=== PATIENT | female | born 2000 | race Caucasian/White ===

== ENCOUNTER 2023-01-14 13:25 | Outpatient (OUT) | payer BC, MEDICAID, SELFPAY ==
[2023-01-14 14:24] LABS: Basophils Percent Auto 0.6 % (0.2-2.0); Eosinophils Absolute Auto 0.2 10^3/uL (0.0-0.7); Eosinophils Percent Auto 3.4 % (0.9-7.0); Hematocrit 34.2 % (36.0-48.0); Hemoglobin 11.7 g/dL (12.0-16.0); Immature Granulocytes Abs Auto 0.01 10^3/uL (0.00-0.03); Immature Granulocytes Pct Auto 0.1 % (0.0-0.5); Lymphocytes Absolute Auto 1.2 10^3/uL (1.2-3.8); Lymphocytes Percent Auto 18.5 % (20.5-60.0); Mean Corpuscular HGB Conc 34.2 g/dL (29.9-35.2); Mean Corpuscular Hemoglobin 30.2 pg (26.7-34.0); Mean Corpuscular Volume 88.4 fL (81.0-99.0); Mean Platelet Volume 10.1 fL (9.5-13.5); Monocytes Absolute Auto 0.7 10^3/uL (0.3-0.8); Monocytes Percent Auto 10.1 % (1.7-12.0); Neutrophils Absolute Auto 4.5 10^3/uL (1.4-6.5); Neutrophils Percent Auto 67.3 % (43.0-75.0); Platelet Count 174 10^3/uL (150-450); Red Blood Count 3.87 10^6/uL (4.20-5.40); Red Cell Distribution Width 12.6 % (11.0-15.0); White Blood Count 6.7 10^3/uL (4.0-11.0)
[2023-01-14 14:34] LABS: Erythrocyte Sedimentation Rate 13 mm/hr (<=20)
[2023-01-14 14:38] LABS: Alanine Aminotransferase 10 U/L (14-59); Albumin Globulin Ratio 1.1; Albumin Level 3.3 g/dL (3.4-5.0); Alkaline Phosphatase 60 U/L (46-116); Anion Gap 8.4; Aspartate Amino Transferase 13 U/L (15-37); BUN Creatinine Ratio 11.1; Bilirubin Total 0.2 mg/dL (0.2-1.0); C Reactive Protein 0.6 mg/dL (<=1.0); Calcium 8.5 mg/dL (8.5-10.1); Carbon Dioxide 27.9 mmol/L (21.0-32.0); Chloride 103 mmol/L (98-107); Estimated GFR (African America >60 (>=60); Estimated GFR (Non-African Ame >60 (>=60); Globulin 3.1 g/dL; Glucose 82 mg/dL (74-106); Potassium 3.3 mmol/L (3.5-5.1); Sodium 136 mmol/L (136-145); Total Protein 6.4 g/dL (6.4-8.2)
[2023-01-14 14:42] LABS: Percent Iron Saturation 8.4 %
[2023-01-15 06:09] LABS: HBsAg Screen Negative (Negative); HCV Antibody Non Reactive (Non Reactive); Hep B Core Ab, Tot Negative (Negative); Hepatitis B Surf Ab Quant <3.1 mIU/mL (Immunity>9.9); Immunoglobulin G, Qn 472 mg/dL (586-1602)
[2023-01-16 10:12] LABS: QuantiFERON-TB Gold Plus Negative (Negative)
== END 2023-01-14 13:26 | disposition home or self-care (01) ==
PROVIDERS: PCP Family Medicine
DX: Z51.81 Encounter for therapeutic drug level monitoring (principal); Z79.620 Long term (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 of immunosuppressive biologic; K50.918 Crohn's disease, unspecified, with other complication
CPT/HCPCS: 36415; 80053; 82306; 82728; 82784; 83540; 83550; 85025; 85652; 86140; 86355; 86356; 86480; 86704; 86706; 86709; 86803; 87340; 87624

== ENCOUNTER 2023-01-16 16:14 | Emergency (ER) | payer OTHER, BC, SELFPAY ==
[2023-01-16 16:19] VITALS: BP 119/80; PULSE 81; RESP 20; TEMP 36.8; O2SAT 100
[2023-01-16 17:34] LABS: HCG Quantitative 12957 mIU/mL
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
== END 2023-01-16 17:41 | disposition home or self-care (01) ==
PROVIDERS: Physician Assistant; Emergency Provider Emergency Medicine; PCP Family Medicine
DX: Z04.1 Encounter for examination and observation following transport accident (principal)
CPT/HCPCS: 36415; 84702; 99283

== ENCOUNTER 2023-02-04 17:37 | Outpatient (OUT) | payer BC, SELFPAY ==
--- NOTE | 2023-02-04 | US_ITS ---
[address] [address] Patient Name: KINGS MARROQUIN MRN: [id number] date: 2000 Sex: F Assigned Patient Location: US Current Patient Location: Accession/Order Number: [id number] Exam Date: 02/04/2023 17:45 Report Date: 02/05/2023 22:10 At the request of: ALFREDO ARIAS Procedure: US OB transvaginal EXAMINATION: US OB transvaginal HISTORY: AMENORRHEA N91.2 COMPARISON: No relevant comparison available. FINDINGS: GESTATIONAL SAC: Present and normal appearing. YOLK SAC: Present and normal appearing. POLE: Present and normal appearing. CARDIAC: Present. UTERUS: Normal size and appearance. OVARIES: Right: Not seen. Left: Normal. CERVIX: 4.9 cm in length and closed. CUL-DE-SAC: Normal. OTHER: None. AGE BY LMP: 8 weeks 2 days JANIS BY LMP: 09/14/2023 AGE BY US CRL: 8 weeks 1 day JANIS BY US CRL: 09/15/2023 US/US OB transvaginal IMPRESSION: 1. Single live intrauterine . Electronically authenticated by: LUIS E CANTU Date: 02/05/2023 22:10
== END 2023-02-04 17:38 | disposition home or self-care (01) ==
LOC: US 17:38
PROVIDERS: PCP Family Medicine; Visit Provider Midwife
DX: Z34.91 Encounter for supervision of normal pregnancy, unspecified, first trimester (principal); Z3A.08 8 weeks gestation of pregnancy
CPT/HCPCS: 76817

== ENCOUNTER 2023-06-09 10:45 | Emergency (ER) | payer BC, MEDICAID, SELFPAY ==
[2023-06-09 10:55] VITALS: BP 132/86; PULSE 113; RESP 18; TEMP 36.9; O2SAT 100; BMI 34.4
[2023-06-09 11:03] VITALS: O2SAT 100
--- NOTE | 2023-06-09 11:06 | ED_ITS ---
HPI - General Adult General Chief complaint: Upper Respiratory Infection Stated complaint: CONGESTION/MIGRAINE Time Seen by Provider: 06/09/23 11:02 Source: patient and family Mode of arrival: walk-in Limitations: no limitations History of Present Illness HPI narrative: Patient is a 22-year-old female who is presenting to the ER today with chief complaint of a headache the past couple days, weakness, fatigue, feeling dehydrated. Patient is also had several months of chronic sinus congestion. Patient has a underlying history of Crohn's that also affects her eyes. Patient is not currently taking her eye medications secondary to that she normally takes daily secondary to Crohn's that secondarily affects her eyes. Patient has no acute vision or hearing changes. Patient has no chest pain or shortness of breath. Patient has no abdominal pain. She has nausea, patient is approximate 26 weeks today. Patient has no recent fall, no head injury. Patient is here with her mother as well. Patient's QUALITY MANAGEMENT NURSE is Shonna Duong. Patient saw her PCP as well Yung Smith for sinus congestion. Patient has no pelvic pain, no vaginal bleeding, no other complications. All systems are negative except as noted/marked. All systems reviewed and otherwise negative. Nurses note and vital signs reviewed and patient is not hypoxic. General: The patient appears well and in no apparent distress. Patient is resting comfortably on cart. Patient is not toxic, lethargic, or listless Skin: Warm, dry, no pallor noted. There is no rash noted. No petechiae, purpura. Head: Normocephalic, atraumatic; mild tenderness to palpation to bilateral frontal maxillary sinus. No cervical midline or paracervical tenderness palpation. Full range of motion of cervical spine no difficulty. Eye: Normal conjunctiva, no drainage, EOMI. PERRL Ears, Nose, Mouth, and Throat: oral mucosa is moist. Nares patent. Mouth without vesicles. Cardiovascular: Regular Rate and Rhythm, no murmur, gallop, rub Respiratory: Patient is in no distress, no accessory muscle use, lungs are clear to auscultation, no wheezing, rales or rhonchi Back: non-tender, no CVA tenderness bilaterally to percussion. No CT LS midline pain GI: Approximately 26 weeks gravid, appropriate for age. No tenderness to palpation, no masses appreciated. No rebound, guarding, or rigidity noted. No distention Musculoskeletal: Patient has full range of motion of all of the extremities, no motor, sensory, or focal neurological deficits Neurological: A&O x4, normal speech Psychiatric: Cooperative Related Data Home Medications Medication Instructions Recorded Confirmed ustekinumab 90 mg/mL subcutaneous 90 mg subcut .q8week 01/16/23 01/16/23 syringe (Stelara) Previous Rx's Medication Instructions Recorded prochlorperazine maleate 10 mg 10 mg PO Q12H PRN nausea and 06/09/23 tablet (Compazine) vomiting, headache 7 days #7 tabs Allergies Allergy/AdvReac Type Severity Reaction Status Date / Time cefdinir [From Omnicef] Allergy Severe Verified 01/16/23 16:19 infliximab [From Remicade] Allergy Severe Rash Verified 01/16/23 16:19 sulfamethoxazole Allergy Severe Verified 01/16/23 16:19 [From Bactrim] trimethoprim [From Bactrim] Allergy Severe Verified 01/16/23 16:19 vancomycin Allergy Severe Verified 01/16/23 16:19 PFS PFS Medical History (Updated 06/09/23 @ 12:42 by Sharath Flores MD) Hx of Social History Smoking status: Never smoker Exam Constitutional Vital Signs, click to edit/add: Last Vital Signs Temp 98.3 F 06/09/23 13:08 Pulse 120 H 06/09/23 13:08 Resp 20 06/09/23 13:08 BP 111/76 06/09/23 13:08 Pulse Ox 100 06/09/23 13:08 O2 Del Method Room Air 06/09/23 13:08 Course Vital Signs Vital signs: Vital Signs Temperature 98.4 F 06/09/23 10:55 Pulse Rate 113 H 06/09/23 10:55 Respiratory Rate 18 06/09/23 10:55 Blood Pressure 132/86 06/09/23 10:55 Pulse Oximetry 100 06/09/23 10:55 Oxygen Delivery Method Room Air 06/09/23 10:55 Temperature 98.3 F 06/09/23 13:08 Pulse Rate 120 H 06/09/23 13:08 Respiratory Rate 20 06/09/23 13:08 Blood Pressure 111/76 06/09/23 13:08 Pulse Oximetry 100 06/09/23 13:08 Oxygen Delivery Method Room Air 06/09/23 13:08 Medical Decision Making MDM Narrative Medical decision making narrative: Patient's magnesium was 1.5, patient potassium was 3.3. Patient was given supplements of potassium, magnesium, patient was given 2 L of IV fluid as well to help with hydration. Patient was having headache for the past 2 days as well, she been taking Tylenol at home that helps minimally. Patient calls it a migraine, she has never had a migraine headache before or diagnosed before. Education was done on the difference between headache and migraine. Patient was given 2 L of IV fluid. Patient was given IV Compazine as well. Electrolytes were checked, no other significant findings. 1330 patient's nausea is completely resolved, headache has completely resolved as well. 1410 patient's tachycardia was said to be normal by her OB virtualization engineer. Patient has had a heart rate in the 1 teens and 120s, the OB stated that is normal for her. Patient's heart rate was 120 at discharge and this was recorded several times. Patient has no chest pain, no shortness of breath, not lightheaded, not dizzy, she has no side effects of the Compazine at all. Patient feels significantly better after 2 L of fluid. No headache, no nausea. Education on reasons for tachycardia were discussed with patient and mother. His symptoms would develop or get worse patient will return. Patient does not want any other testing, she wants to leave the ER and be discharged, very thankful for feeling better, but does not want any additional testing and she is asymptomatic at discharge Lab Data Labs: Lab Results 06/09/23 06/09/23 Range/Units 11:14 11:40 WBC 8.7 (4.0-11.0) 10^3/uL RBC 3.49 L (4.20-5.40) 10^6/uL Hgb 10.5 L (12.0-16.0) g/dL Hct 31.8 L (36.0-48.0) % MCV 91.1 (81.0-99.0) fL MCH 30.1 (26.7-34.0) pg MCHC 33.0 (29.9-35.2) g/dL RDW 12.4 (11.0-15.0) % Plt Count 160 (150-450) 10^3/uL MPV 9.9 (9.5-13.5) fL Neut % (Auto) 85.9 H (43.0-75.0) % Lymph % (Auto) 7.0 L (20.5-60.0) % Wise % (Auto) 5.8 (1.7-12.0) % Eos % (Auto) 0.3 L (0.9-7.0) % Baso % (Auto) 0.2 (0.2-2.0) % Neut # (Auto) 7.5 H (1.4-6.5) 10^3/uL Lymph # (Auto) 0.6 L (1.2-3.8) 10^3/uL Wise # (Auto) 0.5 (0.3-0.8) 10^3/uL Eos # (Auto) 0.0 (0.0-0.7) 10^3/uL Baso # (Auto) 0.0 (0.0-0.1) 10^3/uL Abs Immat Gran (auto) 0.07 H (0.00-0.03) 10^3/uL Imm/Tot Granulo (auto) 0.8 H (0.0-0.5) % Sodium 138 (136-145) mmol/L Potassium 3.4 L (3.5-5.1) mmol/L Chloride 104 (98-107) mmol/L Carbon Dioxide 24.5 (21.0-32.0) mmol/L Anion Gap 12.9 BUN 4.0 L (7.0-18.0) mg/dL Creatinine 0.56 (0.55-1.02) mg/dL Est GFR ( Amer) >60 (>=60) Est GFR (Non-Af Amer) >60 (>=60) BUN/Creatinine Ratio 7.1 Glucose 96 (74-106) mg/dL Calcium 8.4 L (8.5-10.1) mg/dL Magnesium 1.5 L (1.8-2.4) mg/dL Total Bilirubin 0.4 (0.2-1.0) mg/dL AST 23 (15-37) U/L ALT 17 (14-59) U/L Alkaline Phosphatase 66 (46-116) U/L Total Protein 6.1 L (6.4-8.2) g/dL Albumin 2.4 L (3.4-5.0) g/dL Globulin 3.7 g/dL Albumin/Globulin Ratio 0.6 Urine Color Yellow (YELLOW) Urine Clarity Clear (CLEAR) Urine pH 7.0 (5.0-9.0) Ur Specific [place] 1.010 (1.005-1.025) Urine Protein Negative (NEG/TRACE) mg/dL Urine Glucose (UA) Negative (NEGATIVE) mg/dL Urine Ketones Negative (NEGATIVE) mg/dL Urine Occult Blood Negative (NEGATIVE) Urine Nitrite Negative (NEGATIVE) Urine Bilirubin Negative (NEGATIVE) Urine Urobilinogen 0.2 (0.2-1.0) EU/dL Ur Leukocyte Esterase Negative (NEGATIVE) Urine RBC None seen (0-2) #/HPF Urine WBC 0-2 A (NONE SEEN) #/HPF Ur Squamous Epith Cells Few A (NONE/RARE) #/LPF Urine Bacteria None seen (NONE SEEN) #/HPF Urine Mucus None seen (NONE SEEN) Discharge Plan Discharge Chief Complaint: Upper Respiratory Infection Clinical Impression: Headache, , Dehydration, mild, Hypokalemia, Hypomagnesemia Patient Disposition: Home, Self-Care Time of Disposition Decision: 13:31 Condition: Fair Prescriptions / Home Meds: New prochlorperazine maleate [Compazine] 10 mg tablet 10 mg PO Q12H PRN (Reason: nausea and vomiting, headache) 7 Days Qty: 7 0RF No Action Stelara 90 mg/mL syringe 90 mg SUBCUT .q8week Instructions: (ED), Dehydration (ED), Hypokalemia (ED), Hypomagnesemia (ED), General Headache (ED) Additional Instructions: Continue to increase fluids. Follow-up with PCP.\ Follow-up with QUALITY MANAGEMENT NURSE as needed. Continue vitamins. Increase fluids. Use Compazine if needed for nausea, vomiting, and headache Stand Alone Forms: Portal Instructions Referrals: YUNG ARAGON [Primary Care Provider] - 1 week
[2023-06-09] MEDS: 0.9 % SODIUM CHLORIDE 1,000 ML 1000 ML IV (11:18)
[2023-06-09 11:22] LABS: Basophils Percent Auto 0.2 % (0.2-2.0); Eosinophils Percent Auto 0.3 % (0.9-7.0); Hematocrit 31.8 % (36.0-48.0); Hemoglobin 10.5 g/dL (12.0-16.0); Immature Granulocytes Abs Auto 0.07 10^3/uL (0.00-0.03); Immature Granulocytes Pct Auto 0.8 % (0.0-0.5); Lymphocytes Absolute Auto 0.6 10^3/uL (1.2-3.8); Mean Corpuscular Hemoglobin 30.1 pg (26.7-34.0); Mean Corpuscular Volume 91.1 fL (81.0-99.0); Mean Platelet Volume 9.9 fL (9.5-13.5); Monocytes Absolute Auto 0.5 10^3/uL (0.3-0.8); Monocytes Percent Auto 5.8 % (1.7-12.0); Neutrophils Absolute Auto 7.5 10^3/uL (1.4-6.5); Neutrophils Percent Auto 85.9 % (43.0-75.0); Platelet Count 160 10^3/uL (150-450); Red Blood Count 3.49 10^6/uL (4.20-5.40); Red Cell Distribution Width 12.4 % (11.0-15.0); White Blood Count 8.7 10^3/uL (4.0-11.0)
[2023-06-09 11:38] LABS: Alanine Aminotransferase 17 U/L (14-59); Albumin Globulin Ratio 0.6; Albumin Level 2.4 g/dL (3.4-5.0); Alkaline Phosphatase 66 U/L (46-116); Anion Gap 12.9; Aspartate Amino Transferase 23 U/L (15-37); BUN Creatinine Ratio 7.1; Bilirubin Total 0.4 mg/dL (0.2-1.0); Calcium 8.4 mg/dL (8.5-10.1); Carbon Dioxide 24.5 mmol/L (21.0-32.0); Chloride 104 mmol/L (98-107); Estimated GFR (African America >60 (>=60); Estimated GFR (Non-African Ame >60 (>=60); Globulin 3.7 g/dL; Glucose 96 mg/dL (74-106); Magnesium 1.5 mg/dL (1.8-2.4); Potassium 3.4 mmol/L (3.5-5.1); Sodium 138 mmol/L (136-145); Total Protein 6.1 g/dL (6.4-8.2)
[2023-06-09] MEDS: 0.9 % SODIUM CHLORIDE 1,000 ML 999 ML IV (12:20)
[2023-06-09 12:21] LABS: Bilirubin Urine NEGATIVE (NEGATIVE); Blood Urine NEGATIVE (NEGATIVE); Clarity Urine CLEAR (CLEAR); Color Urine YELLOW (YELLOW); Glucose Urine UA NEGATIVE (NEGATIVE); Ketones Urine NEGATIVE (NEGATIVE); Leukocyte Esterase Urine NEGATIVE (NEGATIVE); Nitrite Urine NEGATIVE (NEGATIVE); Protein Urine NEGATIVE (NEG/TRACE); Urobilinogen Urine 0.2 EU/dL (0.2-1.0)
[2023-06-09 12:29] LABS: Bacteria Urine NONE SEEN #/HPF (NONE SEEN); Mucus Urine NONE SEEN (NONE SEEN); RBC Urine NONE SEEN #/HPF (0-2); Squamous Epithelial Cell Urine FEW #/LPF (NONE/RARE); WBC Urine 0-2 #/HPF (NONE SEEN)
[2023-06-09] MEDS: POTASSIUM BICARBONATE/CIT 25 MEQ TABLET EFF 50 MEQ PO (12:44)
[2023-06-09] MEDS: PROCHLORPERAZINE 10 MG/2 ML VIAL IV (12:44)
[2023-06-09] MEDS: MAGNESIUM OXIDE 400 MG TABLET 800 MG PO (12:45)
[2023-06-09 13:08] VITALS: BP 111/76; PULSE 120; RESP 20; TEMP 36.8; O2SAT 100
[2023-06-09 14:12] VITALS: PULSE 120
== END 2023-06-09 14:21 | disposition home or self-care (01) ==
PROVIDERS: Emergency Provider Emergency Medicine; PCP Family Medicine
DX: O99.282 Endocrine, nutritional and metabolic diseases complicating pregnancy, second trimester (principal); E86.0 Dehydration; E87.6 Hypokalemia; O99.612 Diseases of the digestive system complicating pregnancy, second trimester; K50.90 Crohn's disease, unspecified, without complications; Z3A.26 26 weeks gestation of pregnancy; E83.42 Hypomagnesemia; O26.892 Other specified pregnancy related conditions, second trimester; R51.9 Headache, unspecified
CPT/HCPCS: 36415; 80053; 81001; 83735; 85025; 96361; 96374; 99284

== ENCOUNTER 2023-08-06 16:20 | Outpatient (OUT) | payer BC, MEDICAID, SELFPAY ==
--- NOTE | 2023-08-06 | US_ITS ---
The [address] [address] Patient Name: KINGS MARROQUIN MRN: [id number] date: 2000 Sex: F Assigned Patient Location: [facility] Current Patient Location: [facility] Accession/Order Number: [id number] Exam Date: 08/06/2023 16:40 Report Date: 08/06/2023 18:10 At the request of: NON-STAFF PHYSICIAN Procedure: US venous doppler LE LT EXAM: US venous doppler LE LT HISTORY: PATIENT WITH LEFT LEG SWELLING M79.89 COMPARISON: None. TECHNIQUE: Evaluation of the deep veins of the left lower extremity was performed utilizing B-mode, color flow and spectral analysis. FINDINGS: The visualized vessels comprising the deep venous systems from the common femoral vein through the calf veins demonstrate appropriate compressibility, spontaneous color Doppler flow, and augmentation of flow on spectral Doppler with distal compression. Additional findings: None. US/US venous doppler LE LT IMPRESSION: No sonographic evidence of deep venous thrombosis of the left lower extremity. Electronically authenticated by: CARMELITA MEDINA Date: 08/06/2023 18:10
== END 2023-08-06 16:21 | disposition home or self-care (01) ==
LOC: RAD 16:21
PROVIDERS: PCP Family Medicine
DX: M79.89 Other specified soft tissue disorders (principal)
CPT/HCPCS: 93971

== ENCOUNTER 2023-08-20 11:20 | Observation (INO) | payer BC, MEDICAID, SELFPAY ==
[2023-08-20 11:40] VITALS: BP 96/56; PULSE 100
[2023-08-20 12:35] LABS: Bilirubin Urine NEGATIVE (NEGATIVE); Blood Urine MODERATE (NEGATIVE); Clarity Urine CLEAR (CLEAR); Color Urine LT. YELLOW (YELLOW); Glucose Urine UA NEGATIVE (NEGATIVE); Ketones Urine NEGATIVE (NEGATIVE); Leukocyte Esterase Urine SMALL (NEGATIVE); Nitrite Urine NEGATIVE (NEGATIVE); Protein Urine NEGATIVE (NEG/TRACE); Urine Microscopic Indicated YES; Urobilinogen Urine 0.2 EU/dL (0.2-1.0)
[2023-08-20 12:43] LABS: Bacteria Urine TRACE #/HPF (NONE SEEN); Mucus Urine NONE SEEN (NONE SEEN)
[2023-08-20 12:44] LABS: Cast Seen? NONE SEEN #/LPF (NONE SEEN); Crystals Seen? None Seen #/HPF (None Seen); Squamous Epithelial Cell Urine FEW #/LPF (NONE/RARE); Urine Culture Indicated YES
[2023-08-20 13:11] LABS: Basophils Percent Auto 0.2 % (0.2-2.0); Eosinophils Absolute Auto 0.2 10^3/uL (0.0-0.7); Eosinophils Percent Auto 1.2 % (0.9-7.0); Hemoglobin 8.5 g/dL (12.0-16.0); Immature Granulocytes Abs Auto 0.13 10^3/uL (0.00-0.03); Immature Granulocytes Pct Auto 0.9 % (0.0-0.5); Lymphocytes Absolute Auto 1.1 10^3/uL (1.2-3.8); Lymphocytes Percent Auto 8.1 % (20.5-60.0); Mean Corpuscular HGB Conc 31.5 g/dL (29.9-35.2); Mean Corpuscular Hemoglobin 26.4 pg (26.7-34.0); Mean Corpuscular Volume 83.9 fL (81.0-99.0); Mean Platelet Volume 9.8 fL (9.5-13.5); Neutrophils Absolute Auto 11.5 10^3/uL (1.4-6.5); Neutrophils Percent Auto 82.6 % (43.0-75.0); Platelet Count 180 10^3/uL (150-450); Red Blood Count 3.22 10^6/uL (4.20-5.40); Red Cell Distribution Width 13.5 % (11.0-15.0)
[2023-08-20] MEDS: BUTALB/ACETAMINOPHEN/CAFFEINE 50-325-40MG TABLET 1 TAB PO (13:19)
[2023-08-20 13:27] LABS: Alkaline Phosphatase 109 U/L (46-116); Anion Gap 12.6; Bilirubin Total 0.4 mg/dL (0.2-1.0); Calcium 8.6 mg/dL (8.5-10.1); Carbon Dioxide 23.9 mmol/L (21.0-32.0); Chloride 105 mmol/L (98-107); Estimated GFR (African America >60 (>=60); Estimated GFR (Non-African Ame >60 (>=60); Glucose 89 mg/dL (74-106); Lactate Dehydrogenase 108 U/L (81-234); Potassium 3.5 mmol/L (3.5-5.1); Sodium 138 mmol/L (136-145); Uric Acid 2.9 mg/dL (2.6-6.0)
[2023-08-20 13:41] LABS: Alanine Aminotransferase 8 U/L (14-59); Albumin Globulin Ratio 0.7; Albumin Level 2.2 g/dL (3.4-5.0); Aspartate Amino Transferase 8 U/L (15-37); Globulin 3.2 g/dL; Total Protein 5.4 g/dL (6.4-8.2)
[2023-08-20] MEDS: LACTATED RINGER'S SOLUTION 1,000 ML 200 ML IV (14:57)
[2023-08-20 15:01] VITALS: BP 93/52; PULSE 95
== END 2023-08-20 17:37 | disposition home or self-care (01) ==
PROVIDERS: Admitting Provider Midwife; PCP Family Medicine; Visit Provider Midwife
DX: O26.893 Other specified pregnancy related conditions, third trimester (principal); M54.50 Low back pain, unspecified; R51.9 Headache, unspecified; Z3A.36 36 weeks gestation of pregnancy
CPT/HCPCS: 36415; 59025; 80053; 81001; 83615; 84550; 85025; 87086; G0378; G0379

== ENCOUNTER 2023-09-02 07:21 | Outpatient (RCR) | payer BC, MEDICAID, SELFPAY ==
[2023-08-26 13:15] VITALS: BP 110/74; PULSE 101; O2SAT 97
[2023-08-26] MEDS: FERRIC CARBOXYMALTOSE 750 MG in 0.9 % SODIUM CHLORIDE 250 ML 795 MG IV (13:36)
--- NOTE | 2023-08-26 14:11 | PC.NURSE ---
Pt is here for injectafer infusion, her vitals are stable. 24g started in her right AC with good blood return and denies pain. Pt had five minutes remaining of her infusion, she started complaining of pain in at her IV site, this was discontinued and a new IV was started in her left arm with good blood return. She completed infusion and denies any pain at her IV site, IV discontinued when infusion was complete, she denies any complaints and was discharged home ambulatory.
[2023-09-02 11:02] VITALS: BP 108/70; PULSE 97; TEMP 36.6; O2SAT 98
[2023-09-02] MEDS: FERRIC CARBOXYMALTOSE 750 MG in 0.9 % SODIUM CHLORIDE 250 ML 795 MG IV (11:07)
== END 2023-09-11 23:59 | disposition home or self-care (01) ==
LOC: INF 07:21
PROVIDERS: PCP Family Medicine; Visit Provider Midwife
DX: O99.019 Anemia complicating pregnancy, unspecified trimester (principal); D64.9 Anemia, unspecified; Z3A.00 Weeks of gestation of pregnancy not specified
CPT/HCPCS: 96365; J1439

== ENCOUNTER 2023-09-03 05:17 | Inpatient (IN) | payer BC, MEDICAID, SELFPAY ==
[2023-09-03] VITALS (46 sets, daily range): BP systolic 84–113; BP diastolic 49–77; PULSE 79–104; TEMP 35.8–36.9; O2SAT 80–100
--- OUTSIDE RECORDS SUMMARY | 2023-09-03 05:24 | XMS_ITS | CCD ---
Author Organization [facility] Care Team Providers Care Sand Car Worker Name Role Phone Otilia Sinclair Primary Care Provider Chey Pillai MD Primary Care Pr ovider SHAKIRA ORANTES Referring Unavailable OTILIA SINCLAIR Primary Care Unavailable JESSIE LENZ Admitting Unavailable JESSIE LENZ Attending Unavailable SHAKIRA ORANTES Referring Unavailable CHEY PILLAI Primary Care Un available MISC, DR HARRISON Admitting Unavailable MAHESH, DR BARRAGAN Primary Care Unavailable MISC, DR HARRISON Consulting Unavailable MISC, DR HARRISON Attending Unavailable MISC, DR HARRISON Admitting Unavailable MAHESH, DR BARRAGAN Primary Care Unavailable MISC, DR HARRISON Consulting Unavailable MISC, DR HARRISON Attending Unavailable MISC, DR HARRISON Attending Unavailable MAHESH, DR BARRAGAN Primary Care Unavailable MISC, DR HARRISON Admitting Unavailable MISC, DR HARRISON Consulting Unavailable Chey Aragon MD Primary Care Provider Chey Aragon MD Primary Care Provider [phone] MAGDALENA ROJAS Referring Unavaila ble CHEY ARAGON Primary Care Unavailable FELICITAS THOMPSON Attending Unavailable CHEY ARAGON Primary Care Unavailable Ny Cool Attending Unavailable CHEY ARAGON Primary Care Unavailable ALEXX SLATER Referring Unavailable SADIQ SLATER Attending Unavailable MAHESH, CHEY G Primary Care Unavailable ALEXX SLATER M Referring Unavailable MAHESH, CHEY G Primary Care Unavailable [facility], [facility] Referring Un available Ny Cool Attending Unavailable GURPREET BARKER Admitting Unavailable MAHESH, CHEY G Primary Care Unavailable UNKNOWN, PROVIDER Referring Unavailable MITCH BANUELOS Attending Unavailable MITCH BANUELOS Admitting Unavailable [facility], [facility] Referring Un available MAHESH, CHEY G Primary Care Unavailable MARTHA HATFIELD Attending Unavailable MAGDALENA ROJAS Referring Unavaila ble MAHESH, CHEY G Primary Care Unavailable ROWAN ALFORD Attending Unavailable NISREEN WILSON Referring Unavailable MAHESH, CHEY G Primary Care Unavailable MARTHA HATFIELD Attending Unavailable MAHESH, CHEY G Primary Care Unavailable Ny Cool Referring Unavailable JERROD GARCIA Attending Unavailable MAHESH, CHEY G Primary Care Unavailable [facility], [facility] Referring Un available MAHESH, CHEY G Primary Care Unavailable ALEXX SLATER Attending Unavailable ALEXX SLATER Attending Unavailable MAHESH, CHEY G Primary Care Unavailable ALEXX SLATER Referring Unavailable MAHESH, CHEY G Primary Care Unavailable ZHOU LEE Attending Unavailable [facility] SAME, [facility] Referring Un available MAHESH, CHEY G Primary Care Unavailable VY VILLAFANA Attending Unavailable Ny Cool Referring Unavailable Ioana Otero Attending Unavailable MAHESH, CHEY G Primary Care Unavailable MAHESH, CHEY G Primary Care Unavailable [facility]LLOW-UP [facility] SAME, [facility] Referring Un available JAYY ALEMAN Attending Unavailable MAGDALENA ROJAS Referring Unavaila ble MAHESH, CHEY G Primary Care Unavailable MITCH BANUELOS Attending Unavailable MAHESH, CHEY G Primary Care Unavailable [facility], [facility] Referring Un available ZHOU LEE Attending Unavailable Unavailable Primary Care Provider UnavailChey Meek MD Primary Care Provider Chey Aragon MD Primary Care Provider Tima CONTRACT ANALYST, Serene Ventura Unavailable Chey Aragon MD Unavailable [phone] LUIZ DUONGE Referring Unavailable CHEY ARAGON Primary Care Unavailable RUSSELLRUCHI Attending Unavailable FLORLUIZ EmanuelE Referring Unavailable CHEY ARAGON Primary Care Unavailable LUIZ DUONGE Referring Unavailable CHEY ARAGON Primary Care Unavailable FLORO, ALFREDO Referring Unavailable CHEY ARAGON Primary Care Unavailable [facility] PROVIDER, [facility] Referring Unavailable TERESA GERBER Attending Unavailable IOANA OTERO Referring Unavailable VELIA YO Attending Unavailable TERESA GERBER Attending Unavailable [facility] PROVIDER, [facility] Referring Unavailable [facility] PROVIDER, [facility] Referring Unavailable ALEXX SLATER Referring Unavailable GIOVANI EDMONDS Attending Unavailable ALEXX SLATER Referring Unavailable GIOVANI EDMONDS Attending Unavailable [facility] PROVIDER, [facility] Referring Unavailable TERESA GERBER Attending Unavailable ALFREDO DUONG Attending Unavailable RUBIA HERNANDEZ Attending Unavailable ENEDINA TAYLOR Attending Unavailable CHEY ARAGON Referring Unavailable BO STOKES Attending Unavailable CHEY ARAGON Referring Unavailable ALFREDO DUONG Attending Unavailable KATIE ACEVES Attending Unavailab ENEDINA Perdomo Attending Unavailable CHEY ARAGON Referring Unavailable ALFREDO DUONG Attending Unavailable ENEDINA TAYLOR Attending Unavailable KATIE ACEVES Attending Unavailab elroy ROBBINSOALFREDO Attending Unavailable ALFREDO DUONG Attending Unavailable XIOMARA ZURITA Attending Unavailable HACKKATIE WHATLEY Referring Unavailab elroy ROBBINSOALFREDO Attending Unavailable MAHESH CHEY Referring Unavailable ENEDINA TAYLOR Attending Unavailable MAHESH, CHEY Referring Unavailable BO STOKES Attending Unavailable MAHESH CHEY Referring Unavailable BLAZE RENTERIA Attending Unavailable MAHESH CHEY Referring Unavailable HACKKATIE WHATLEY Attending Unavailab le FLORO, ALFREDO L Attending Unavailable BLACKSTON, BLAZE T Attending Unavailable FLORO, ALFREDO L Referring Unavailable KELBLEY, DALLAS Attending Unavailable FLORO, ALFREDO L Referring Unavailable FLORO, ALFREDO L Attending Unavailable FLORO, ALFREDO L Referring Unavailable BLACKSTON, BLAZE T Attending Unavailable FLORO, ALFREDO L Referring Unavailable KELBLEY, DALLAS Attending Unavailable FLORO, ALFREDO L Referring Unavailable FLORO, ALFREDO L Attending Unavailable FLORO, ALFREDO L Attending Unavailable FLORO, ALFREDO L Attending Unavailable FLORO, ALFREDO L Referring Unavailable Allergies Allergy Classification Reported Allergen(s) Allergy Type Date of Onset Reaction(s) Facility (20 sources) cefdinir; Translations: [CEFDINIR] Drug Allergy 09-11-19 12 Rash, Anaphylaxis [facility] (3 sources) Sulfamethoxazole / Trimethoprim; Translations: [Bactrim] Drug Allergy 09-11-19 12 Anaphylaxis [facility] (1 source) cefdinir Drug Allergy 09-10-19 16 [facility] (1 source) inFLIXimab Drug Allergy 09-10-19 16 [facility] (1 source) Pentamidine Drug Allergy 07-08-19 21 [facility] (1 source) Vancomycin Drug Allergy 09-10-19 16 [facility] (17 sources) inFLIXimab; Translations: [INFLIXIMAB] Drug Allergy 01-31-20 15 Other (See Comments) [facility] (17 sources) Pentamidine; Translations: [PENTAMIDINE] Drug Allergy 12-31-[address] [facility] Work Phone: (20 sources) Sulfonamides (Antibiotic); Translations: [SULFA (SULFONAMIDE ANTIBIOTICS)] Propensity to adverse reactions to drug 05-24-[address] [facility] (20 sources) Vancomycin; Translations: [VANCOMYCIN ANALOGUES] Drug Allergy 08-09-[address] [facility] (7 sources) cefdinir Drug Allergy 09-11-19 12 Anaphylaxis, Rash [facility] (7 sources) inFLIXimab Drug Allergy 01-31-20 15 [facility] (7 sources) Pentamidine Drug Allergy 12-31-19 20 Headache [facility] (12 sources) Sulfamethoxazole / Trimethoprim; Translations: [SULFAMETHOXAZOLE-T RIMETHOPRIM] Drug Allergy 09-11-19 12 Anaphylaxis, Rash [facility] Medications Current Medications Medication Drug Class(es) Dates Sig (Normalized) Sig (Original) 0.9% NaCl 0.9 % SolP 100 mL with riTUXimab 10 mg/mL Conc (16 sources) 0.9% NaCl 0.9 % SolP 100 mL with riTUXimab 10 mg/mL Conc Inject into IV. 0 Active acetaminophen 325 mg oral tablet (20 sources) Start: 08-13-2021 acetaminophen (TYLENOL) tablet 325 mg Start: 05-23-2021 End: 03-20-2022 take 2 tablets by mouth every six hours as needed Acetaminophen 325 MG tablet Take 2 tablets by mouth Every 6 hours as needed. 03/20/2022 Active Calcium-Vitamin D-Vitamin K (VIACTIV PO) (2 sources) Calcium-Vitamin D-Vitamin K (VIACTIV PO) Take by mouth 2 times daily. 0 Active carboxymethylcellulose sodium 10 mg/ml ophthalmic solution (2 sources) Start : 07-25 take 1 drop(s) into the eye(s) three times daily carboxymethylcellulose 1 % ophthalmic solution Place 1 drop into the left eye 3 times daily. 1 Bottle 4 07/25/2014 Active codeine phosphate 2 mg/ml / guaiFENesin 20 mg/ml oral solution (2 sources) Opioid Agonist Start : 07-07 take 10 mL by mouth every six hours as needed for cough guaiFENesin-codeine (GUAIFENESIN AC) 100-10 MG/5ML liquid Take 10 mLs by mouth every 6 hours as needed for Cough. 1 Bottle 0 07/07/2014 Active diphenhydrAMINE hydrochloride 25 mg oral tablet (3 sources) Histamine-1 Receptor Antagonist Start : 08-13 diphenhydrAMINE (BENADRYL) tablet 25 mg Start: 04-26-2014 take 10 mL by mouth every six hours as needed diphenhydrAMINE (BENADRYL) 12.5 MG/5ML elixir Take 10 mLs by mouth every 6 hours as needed for Itching. 70 mL 1 04/26/2014 Active fluocinolone acetonide 0.1 mg/ml topical oil (4 sources) Corticosteroid Start: 07-07-2014 fluocinolone ( SYNALAR) 0.025 % ointment Apply to affected area 1 Tube 0 07/07/2014 Active Start: 07-07-2014 fluocinolone ( DERMA-SMOOTHE) 0.01 % external oil Apply to scalp at bedtime with salicylic acid. Cover scalp with shower cap and wash out in the morning. 1 Bottle 0 07/07/2014 Active ibuprofen 600 mg oral tablet (16 sources) Nonsteroidal Anti-inflammatory Drug Start: 05-23-2021 End: 03-20-2022 take 1 tablet by mouth every six hours as needed for pain ibuprofen 600 mg tablet (Motrin) Take 1 tablet by mouth every 6 hours as needed for Pain. 40 tablet 0 03/20/2022 Active Lactobacillus (2 sources) Start: 07-25-2014 take 1 tablet by mouth three times daily lactobacillus (BACID) TABS Take 1 tablet by mouth 3 times daily. 30 tablet 1 07/25/2014 Active lansoprazole 30 mg delayed release oral capsule (2 sources) Proton Pump Inhibitor Start: 07-07-2014 take 1 capsule by mouth once daily lansoprazole (PREVACID) 30 MG capsule Take 1 capsule by mouth daily. 30 capsule 0 07/07/2014 Active loratadine 10 mg oral tablet (16 sources) take 1 tablet by mouth once daily loratadine 10 mg tablet Take 1 tablet by mouth once daily. 0 Active Multiple Vitamins-Minerals (THERAPEUTIC MULTIVITAMIN-SENIOR QA AUTOMATION ENGINEER ALS) tablet (2 sources) take 1 tablet by mouth once daily Multiple Vitamins-Minerals (THERAPEUTIC MULTIVITAMIN-SENIOR QA AUTOMATION ENGINEER ALS) tablet Take 1 tablet by mouth daily. 0 Active ondansetron 4 mg oral tablet (1 source) Serotonin-3 Receptor Antagonist Start: 08-13-2021 ondansetron (ZOFRAN) tablet 4 mg MV-Min-Fe Fum-FA-DHA ( 1 PO) (3 sources) MV-Min- Fe Fum-FA-DHA ( 1 PO) Take by mouth. 0 Active vit,yovanny 74/iron/folic ( VITAMIN 1+1 ORAL) (2 sources) take 1 tablet by mouth in the morning vit,yovanny 74/iron/folic ( VITAMIN 1+1 ORAL) Take 1 tablet by mouth in the morning. 0 Active Vit-Fe Fumarate-FA ( PO) (4 sources) Vit-Fe Fumarate-FA ( PO) Take by mouth. Active Vit-Fe Fumarate-FA ( PO) Take by mouth. 0 Active salicylic acid 60 mg/ml topical lotion (2 sources) Start: 07-07-2014 Salicylic Acid 6 % LOTN Apply to scalp at bedtime with fluocinolone 0.01% oil. Cover scalp with shower cap and wash out in the morning. 1 Bottle 0 07/07/2014 Active 1000 ml sodium chloride 9 mg/ml injection (1 source) Start: 08-13-2021 End: 08-14-2021 0.9 % sodium chloride infusion sodium chloride, sodium bicarb-nasal rinse squeeze bottle with packet (Neilmed Sinus) (16 sources) Start: 03-20-2022 take 1 dose nasal route twice daily, then take 1 dose nasal route twice daily sodium chloride, sodium bicarb-nasal rinse squeeze bottle with packet (Neilmed Sinus) Place 1 Packet in each nostril twice daily. Mix 1 packet as directed on package and use to rinse sinuses two times daily. 100 Each 0 03/20/2022 Active Start: 12-20-2020 End: 03-20-2022 sodium chloride, sodium bica rb-nasal rinse squeeze bottle with packet (Neilmed Sinus) Mix 1 packet as directed on package and use to rinse sinuses 2 times daily. 100 Each 0 12/20/2020 03/20/2022 Discontinued 1 ml ustekinumab 90 mg/ml prefilled syringe (20 sources) Interleukin-12 Antagonist, Interleukin-23 Antagonist Start: 12-23-2022 Ustekinumab 90 MG/ML Solution Prefilled Syringe injection Inject 1 mL under the skin every 56 days. 12/23/2022 Active Start: 12-27-2021 ustekinumab (S telara) injection Inject 90 mg under the skin. 0 12/27/2021 Active Start: 12-27-2021 End: 12-23-2022 ustekinumab 90 mg/mL subcuta neous syringe (Stelara) Inject 1 mL under skin every 8 weeks. 1 Each 6 12/23/2022 Active inject 1 mL by subcu taneous injection every three months ustekinumab (STELARA) 90 mg/mL injection Inject 1 mL (90 mg total) under the skin every 3 (three) months. 0 Active vedolizumab 300 mg injection (2 sources) Integrin Receptor Antagonist vedolizumab (ENTYVIO ) 300 MG injection Infuse intravenously. 0 Active Completed/Discontinued Medications Medication Drug Class(es) Dates Sig (Normalized) Sig (Original) calcipotriene 0.05 mg/ml topical cream (12 sources) Vitamin D Analog Start: 09-03-2021 End: 01-26-2023 calcipotriene 0.005 % topical cream (Dovonex) Indications: Psoriasis Apply 1 Application to affected area twice daily. 60 gram 2 09/03/2021 01/26/2023 Discontinued clobetasol propionate 0.5 mg/ml topical solution (20 sources) Corticosteroid Start: 02-04-2022 End: 01-26-2023 clobetasoL 0.05 % scalp solution (Temovate) Indications: Psoriasis Apply 1 Application to affected area twice daily. 50 mL 3 02/04/2022 01/26/2023 Discontinued Start: 12-24-2021 End: 01-26-2023 clobetasoL 0.05 % topical oi ntment (Temovate) Indications: Psoriasis Apply 1 Application to affected area twice daily. 30 gram 2 12/24/2021 01/26/2023 Discontinued dicyclomine hydrochloride 20 mg oral tablet (14 sources) Anticholinergic Start: 07-05-2021 End: 02-04-2023 take 1 tablet by mouth three times daily dicyclomine 20 mg tablet (BentyL) Take 1 tablet by mouth 3 times daily. 90 tablet 2 07/05/2021 02/04/2023 Discontinued fluticasone propionate 0.05 mg/actuat metered dose nasal spray (15 sources) Corticosteroid Start: 03-20-2022 End: 02-04-2023 take 1 spray(s) nasal route once daily fluticasone propionate 50 mcg/actuation nasal spray,suspension (Flonase) Place 1 spray(s) in each nostril once daily. 16 gram 0 03/20/2022 02/04/2023 Discontinued Start: 07-07-2014 fluticasone (F LONASE) 50 MCG/ACT nasal spray 1 spray by Nasal route 2 times daily. 1 Bottle 0 07/07/2014 Active halobetasol propionate 0.5 mg/ml topical cream (1 source) Corticosteroid Start: 02-04-2022 End: 03-20-2022 apply 50 g topically once daily halobetasol propionate 0.05 % topical cream (Ultravate) Indications: Psoriasis Apply to affected area on scalp once daily. 50 gram 3 02/04/2022 03/20/2022 Discontinued (No Longer Taking) hyoscyamine sulfate 0.125 mg sublingual tablet (12 sources) Start: 06-27-2021 End: 01-26-2023 take 1 tablet under the tongue every six hours as needed for pain hyoscyamine 0.125 mg sublingual tablet (Levsin) Place 1 tablet under tongue every 6 hours as needed for Pain. 120 tablet 2 06/27/2021 01/26/2023 Discontinued 10 ml immunoglobulin g, human 100 mg/ml injection (1 source) Human Immunoglobulin G Start: 08-13-2021 End: 08-13-2021 immune globulin (GAMMAGARD) 10% solution 35 g nitrofurantoin, macrocrystals 25 mg / nitrofurantoin, monohydrate 75 mg oral capsule (3 sources) Nitrofuran Antibacterial Start: 03-30-2023 End: 05-26-2023 take 1 capsule by mouth in the morning nitrofurantoin, macrocrystal-mono hydrate, (Macrobid) 100 MG capsule Indications: Acute cystitis without hematuria Take 1 capsule (100 mg) by mouth in the morning and 1 capsule (100 mg) before bedtime. 14 capsule 0 03/30/2023 05/26/2023 Discontinued 10 ml riTUXimab 10 mg/ml injection (7 sources) [id number] Cytolytic Antibody End: 08-06-2023 riTUXimab 100 MG/10ML chemo injection as directed Intravenous 08/06/2023 Discontinued Problems Active Problems Problem Classification Problem Date Documented Da te Episodic/Chronic Chronic obstructive pulmonary disease and bronchiectasis (19 sources) Bronchiectasis; Translations: [Bronchiectasis, uncomplicated] Onset: 1 04-16-2020 Chronic Deficiency and other anemia (1 source) Iron deficiency anemia; Translations: [Iron deficiency anemia, unspecified] Onset: 4 09-01-2023 Episodic Diseases of white blood cells (19 sources) Leukocytosis; Translations: [Elevated white blood cell count, unspecified] Onset: 2 Resolved: 2 02-26-2022 Chronic Esophageal disorders (19 sources) Gastroesophageal reflux disease; Translations: [Gastro-esophageal reflux disease without esophagitis] Onset: 2 Resolved: 2 02-26-2022 Chronic Headache; including migraine (19 sources) Tension-type headache; Translations: [Tension-type headache, unspecified, not intractable] Onset: 1 06-08-2021 Chronic Immunity disorders (20 sources) Immunosuppression; Translations: [Immunodeficiency, unspecified] Onset: 5 Resolved: 7 08-20-2021 Chronic Immunizations and screening for infectious disease (1 source) Encounter for immunization; Translations: [ENCOUNTER FOR IMMUNIZATION] Onset: 2 Episodic Inflammation; infection of eye (except that caused by tuberculosis or sexually transmitteddisease) (20 sources) Orbital myositis; 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, unspecified orbit] Onset: 5 Resolved: 9 06-08-2021 Chronic Nutritional deficiencies (20 sources) Vitamin D deficiency; Translations: [Vitamin D deficiency, unspecified] Onset: 7 Resolved: 9 07-03-2020 Chronic Other complications of (1 source) Anemia complicating , unspecified trimester; Translations: [Anemia complicating , unspecified trimester] Onset: 4 Chronic Other complications of (2 sources) Crohn's disease; Translations: [Diseases of the digestive system complicating , second trimester] 04-24-2023 Episodic Other complications of (1 source) Diseases of the digestive system complicating , second trimester; Translations: [Diseases of the digestive system complicating , second trimester] Onset: 4 Episodic Other complications of (1 source) Supervision of high risk , unspecified, unspecified trimester; Translations: [Supervision of high risk , unspecified, unspecified trimester] Onset: 4 Episodic Other connective tissue disease (1 source) Swelling of left lower limb; Translations: [Other specified soft tissue disorders] 08-06-2023 Episodic Other ear and sense organ disorders (2 sources) Impacted cerumen of bilateral ears; Translations: [Impacted cerumen, bilateral] 05-26-2023 Episodic Other gastrointestinal disorders (2 sources) H/O: ulcerative colitis; Translations: [Personal history of other diseases of the digestive system] 04-24-2023 Episodic Other gastrointestinal disorders (1 source) Personal history of other diseases of the digestive system; Translations: [Personal history of other diseases of the digestive system] Onset: 4 Episodic Other inflammatory condition of skin (4 sources) Scalp psoriasis; 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, unspecified] Onset: 5 06-14-2014 Chronic Other inflammatory condition of skin (20 sources) Psoriasis; 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, unspecified] Onset: 5 06-08-2021 Chronic Other inflammatory condition of skin (2 sources) Psoriasis, unspecified; 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, unspecified] Onset: 3 Chronic Other lower respiratory disease (20 sources) Multiple nodules of lung; Translations: [Other nonspecific abnormal finding of lung field] Onset: 6 04-23-2015 Episodic Other lower respiratory disease (1 source) Nodule of lung; Translations: [Solitary pulmonary nodule] Onset: 4 09-01-2023 Episodic Other nutritional; endocrine; and metabolic disorders (7 sources) Obese class I; Translations: [Obesity, unspecified] Onset: 3 02-25-2023 Chronic Other screening for suspected conditions (not mental disorders or infectious disease) (20 sources) Elevated C-reactive protein; Translations: [Elevated C-reactive protein (CRP)] Onset: 3 Resolved: 5 04-19-2014 Episodic Other skin disorders (1 source) Hidradenitis suppurativa; Translations: [Hidradenitis suppurativa] Onset: 4 09-01-2023 Episodic Other upper respiratory infections (20 sources) Chronic sinusitis; Translations: [Chronic sinusitis, unspecified] Onset: 5 Resolved: 1 06-08-2021 Chronic Other upper respiratory infections (18 sources) Acute pansinusitis; Translations: [Acute pansinusitis, unspecified] Resolved: 6 06-03-2016 Episodic Regional enteritis and ulcerative colitis (20 sources) Crohn's disease of small AND large intestines; Translations: [Crohn's disease of both small and large intestine with unspecified complications] Onset: 2 Resolved: 2 07-20-2014 Chronic Residual codes; unclassified (3 sources) First trimester ; Translations: [Less than 8 weeks gestation of ] Onset: 3 02-04-2023 Episodic Residual codes; unclassified (1 source) Gestation period, 11 weeks; Translations: [11 weeks gestation of ] 02-25-2023 Episodic Residual codes; unclassified (1 source) Gestation period, 19 weeks; Translations: [19 weeks gestation of ] 04-24-2023 Episodic Residual codes; unclassified (1 source) 19 weeks gestation of ; Translations: [19 weeks gestation of ] Onset: 4 Episodic Unclassified (1 source) Low Blood Count Onset: 3 Unclassified (1 source) Sinus Problem Onset: 3 Unclassified (1 source) HX Colitis Onset: 4 Viral infection (4 sources) COVID-19; Translations: [COVID-19] Onset: 2 Past or Other Problems Problem Classification Problem Date Documented Da te Episodic/Chronic Abdominal pain (20 sources) Generalized abdominal pain; Translations: [Generalized abdominal pain] Resolved: 7 05-22-2016 Episodic Blindness and vision defects (16 sources) Diplopia; Translations: [Diplopia] Resolved: 7 12-19-2016 Episodic Complication of device; implant or graft (2 sources) Injection site extravasation; Translations: [Other specified complication of vascular prosthetic devices, implants and grafts, initial encounter] Onset: 5 Resolved: 5 07-20-2014 Chronic Complications of surgical procedures or medical care (16 sources) Postoperative abdominal wall wound abscess; Translations: [Infection following a procedure, other surgical site, initial encounter] Resolved: 7 12-19-2016 Episodic Deficiency and other anemia (5 sources) Microcytic anemia; Translations: [Iron deficiency anemia, unspecified] Onset: 3 07-25-2014 Episodic Deficiency and other anemia (16 sources) Anemia; Translations: [Anemia, unspecified] Onset: 6 Resolved: 6 09-14-2015 Episodic Diseases of mouth; excluding dental (16 sources) Ulcer of mouth; Translations: [Other forms of stomatitis] Onset: 9 Resolved: 9 09-16-2018 Episodic Disorders of teeth and jaw (16 sources) Difficulty chewing; Translations: [Other specified disorders of teeth and supporting structures] Onset: 9 Resolved: 9 04-01-2019 Episodic Fever of unknown origin (18 sources) Fever; Translations: [Fever, unspecified] Onset: 2 Resolved: 2 07-20-2014 Episodic Fluid and electrolyte disorders (18 sources) Dehydration; Translations: [Dehydration] Onset: 5 Resolved: 2 07-20-2014 Episodic Headache; including migraine (20 sources) Headache; Translations: [Headache] Onset: 9 Resolved: 2 07-27-2014 Episodic Inflammation; infection of eye (except that caused by tuberculosis or sexually transmitteddisease) (20 sources) Cellulitis of left orbit; Translations: [Cellulitis of left orbit] Onset: 5 Resolved: 5 07-27-2014 Episodic Intestinal infection (16 sources) Clostridium difficile colitis; Translations: [Enterocolitis due to Clostridium difficile, not specified as recurrent] Resolved: 6 03-25-2016 Episodic Meningitis (except that caused by tuberculosis or sexually transmitted disease) (20 sources) Aseptic meningitis; Translations: [Nonpyogenic meningitis] Onset: 2 Resolved: 3 08-18-2021 Episodic Neoplasms of unspecified nature or uncertain behavior (2 sources) Neoplasm of uncertain behavior of skin; Translations: [Neoplasm of uncertain behavior of skin] Onset: 5 Resolved: 5 05-17-2014 Episodic Nutritional deficiencies (19 sources) Iron deficiency; Translations: [Iron deficiency] Onset: 2 Resolved: 9 09-16-2018 Episodic Other aftercare (18 sources) Drug-induced immunodeficiency ; 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] Onset: 3 07-20-2014 Episodic Other aftercare (20 sources) Patient encounter status; Translations: [Encounter for therapeutic drug level monitoring] Onset: 5 Resolved: 8 05-08-2020 Episodic Other aftercare (16 sources) Long-term current use of systemic steroid; Translations: [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] Onset: 6 Resolved: 9 08-13-2018 Episodic Other aftercare (20 sources) Drug therapy finding; Translations: [On rituximab therapy] Onset: 8 Resolved: 1 04-17-2020 Episodic Other aftercare (12 sources) snf current use of adalimumab therapy; Translations: [Adalimumab (Humira) long-term use] Onset: 3 12-18-2022 Episodic Other complications of (9 sources) Anemia during - baby not yet delivered; Translations: [Anemia complicating , unspecified trimester] Resolved: 7 12-19-2016 Chronic Other complications of (7 sources) Anemia of ; Translations: [Anemia complicating , unspecified trimester] Resolved: 7 12-19-2016 Chronic Other ear and sense organ disorders (16 sources) Otitis externa of left ear; Translations: [Unspecified otitis externa, left ear] Onset: 8 Resolved: 9 09-16-2018 Chronic Other eye disorders (16 sources) Disorder of eye; Translations: [Unspecified disorder of eye and adnexa] Onset: 5 Resolved: 5 08-11-2014 Episodic Other eye disorders (16 sources) Pain in eye; Translations: [Ocular pain, unspecified eye] Onset: 7 Resolved: 7 12-19-2016 Episodic Other gastrointestinal disorders (16 sources) Intestinal malabsorption; Translations: [Intestinal malabsorption, unspecified] Onset: 9 Resolved: 9 08-13-2018 Chronic Other gastrointestinal disorders (16 sources) Loose stool; Translations: [Other fecal abnormalities] Resolved: 7 12-19-2016 Episodic Other gastrointestinal disorders (16 sources) Diarrhea; Translations: [Diarrhea, unspecified] Resolved: 2 12-05-2021 Episodic Other hematologic conditions (18 sources) ESR raised; Translations: [Elevated erythrocyte sedimentation rate] Onset: 3 Resolved: 6 04-19-2014 Episodic Other infections; including parasitic (16 sources) Personal history of other infectious and parasitic diseases; Translations: [Personal history of other infectious and parasitic diseases] Onset: 9 Resolved: 1 04-17-2020 Episodic Other inflammatory condition of skin (19 sources) Intertrigo; Translations: [Erythema intertrigo] Onset: 1 04-17-2020 Episodic Other lower respiratory disease (2 sources) Cough; Translations: [Cough] Onset: 5 Resolved: 5 05-02-2014 Episodic Other lower respiratory disease (2 sources) Chronic cough; Translations: [Chronic cough] Resolved: 5 07-20-2014 Episodic Other lower respiratory disease (16 sources) Dyspnea; Translations: [Shortness of breath] Onset: 6 Resolved: 7 05-22-2016 Episodic Other lower respiratory disease (2 sources) Other nonspecific abnormal finding of lung field; Translations: [Other nonspecific abnormal finding of lung field] Onset: 3 Episodic Other nervous system disorders (16 sources) Postoperative pain ; Translations: [Other acute postprocedural pain] Resolved: 7 04-27-2016 Episodic Other nutritional; endocrine; and metabolic disorders (20 sources) Overweight in adulthood with body mass index of 25 or more but less than 30; Translations: [Body mass index (BMI) 29.0-29.9, adult] Onset: 5 Resolved: 6 11-23-2014 Episodic Other nutritional; endocrine; and metabolic disorders (16 sources) Weight loss; Translations: [Abnormal weight loss] Resolved: 2 12-05-2021 Episodic Other nutritional; endocrine; and metabolic disorders (16 sources) Recent weight loss; Translations: [Abnormal weight loss] Resolved: 7 09-23-2016 Episodic Other nutritional; endocrine; and metabolic disorders (16 sources) Loss of appetite; Translations: [Anorexia] Onset: 2 Resolved: 2 02-26-2022 Episodic Other nutritional; endocrine; and metabolic disorders (3 sources) Decrease in appetite; Translations: [Anorexia] Onset: 3 10-27-2022 Episodic Other skin disorders (14 sources) Alopecia areata; Translations: [Alopecia areata, unspecified] Onset: 5 06-14-2014 Episodic Other skin disorders (20 sources) Facial swelling ; Translations: [Localized swelling, mass and lump, head] Onset: 5 Resolved: 9 07-20-2014 Episodic Other skin disorders (2 sources) Lesion of scalp; Translations: [Disorder of the skin and subcutaneous tissue, unspecified] Onset: 5 Resolved: 5 07-20-2014 Episodic Other skin disorders (18 sources) Eruption; Translations: [Rash and other nonspecific skin eruption] Onset: 5 Resolved: 2 07-20-2014 Episodic Other skin disorders (16 sources) Alopecia; Translations: [Nonscarring hair loss, unspecified] Onset: 5 Resolved: 5 11-24-2021 Episodic Other skin disorders (16 sources) Folliculitis; Translations: [Follicular disorder, unspecified] Onset: 7 Resolved: 7 12-19-2016 Episodic Other skin disorders (16 sources) Anetoderma; 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 skin] Onset: 7 Resolved: 1 04-17-2020 Episodic Other skin disorders (16 sources) Skin nodule; Translations: [Localized swelling, mass and lump, unspecified] Onset: 1 Resolved: 2 06-17-2021 Episodic Otitis media and related conditions (16 sources) Acute suppurative otitis media; Translations: [Acute suppurative otitis media without spontaneous rupture of ear drum, left ear] Onset: 8 Resolved: 9 04-01-2019 Episodic Residual codes; unclassified (19 sources) History of excision of small intestine; Translations: [Acquired absence of other specified parts of digestive tract] Onset: 6 02-24-2022 Episodic Residual codes; unclassified (19 sources) At risk for infection; Translations: [Other specified personal risk factors, not elsewhere classified] Onset: 2 11-24-2021 Episodic Residual codes; unclassified (1 source) Less than 8 weeks gestation of ; Translations: [Less than 8 weeks gestation of ] Onset: 3 Episodic Results Test Name Value Interpretation Reference Range Facility US OB FOLLOW UP TRANSABDOMIN AL APPROACHon 08-31-2023 US OB FOLLOW UP TRANSABDOMINAL APPROACH FINDINGS: A single, live intrauterine is present with normal cardiac rate of 129 beats per minute. Normal activity and amniotic fluid volume. Amniotic fluid index is 18 cm. Morphology is grossly normal. The cervix is long and closed, 4.9 cm. The placenta is anterior, not associated with the cervical os. The current sonographic age is 36 weeks and 2 days, based on the following measurements: BPD 9.8 cm (40 weeks,1 day) Head Circumference 34.3 cm (39 weeks, 4 days) Abdominal Circumference 33.7 cm (37 weeks, 4 days) Femur Length 7.8 cm (39 weeks, 6 days) Presentation Cephalic Placenta Anterior Grade II Weight (g) by Percentile 77.9 % * These measurements result in an estimated date of delivery of September 05, 2023. The current estimated weight is 3568 grams (7 pounds, 14 ounces). IMPRESSION: Single, live intrauterine , current sonographic age of 39 weeks and 2 days, with an estimated date of delivery of September 05, 2023 * Estimated Weight (g) by Percentile is based upon an accurate estimated age based on last menstrual period. TRANSCRIBED BY: ELECTRONICALLY SIGNED BY: Herbie Pace MD Normal Not Available C REACTIVE PROTEINon 024 CRP [Mass/Vol] 5.36 mg/L Normal <10.00 [facility] Comment on above: Performed By: #### C RP, CMPN #### [facility] (DEFAULT) [address] [place] [address] CBC,PLATELETSon 08-06-2023 Hematocrit (Bld) [Volume fraction] 29.1 % Low 34.9-44.3 [facility] Comment on above: Performed By: #### H EMOGC #### [facility] (DEFAULT) [address] [place] [address] Hemoglobin (Bld) [Mass/Vol] 9.3 g/dL Low 11.4-15.2 [facility] Comment on above: Performed By: #### H EMOGC #### [facility] (DEFAULT) [address] [place] [address] 76644 MCV (RBC) [Entitic vol] 85.3 fL Normal 79.6-97.7 [facility] Comment on above: Performed By: #### H EMOGC #### [facility] (DEFAULT) [address] [place] [address] 69471 Mean Cell Hgb 27.3 pg Normal 25.9-33.9 [facility] Comment on above: Performed By: #### H EMOGC #### [facility] (DEFAULT) [address] [place] [address] 21345 Mean Cell Hgb Conc 32.0 g/dL Normal 31.4-35.9 [facility] Comment on above: Performed By: #### H EMOGC #### [facility] (DEFAULT) [address] [place] [address] 38047 Platelet mean volume (Bld) [Entitic vol] 10.2 fL Normal 8.5-12.2 [facility] Comment on above: Performed By: #### H EMOGC #### [facility] (DEFAULT) [address] [place] [address] 55793 Platelets (Bld) [#/Vol] 206 10*3/uL Normal 150-393 [facility] Comment on above: Performed By: #### H EMOGC #### [facility] (DEFAULT) [address] [place] [address] 08606 RBC (Bld) [#/Vol] 3.41 10*6/uL Low 3.91-5.04 [facility] Comment on above: Performed By: #### H EMOGC #### [facility] (DEFAULT) [address] [address] RBC Distribution 13.2 % Normal 10.8-14.9 [facility] Comment on above: Performed By: #### H EMOGC #### [facility] (DEFAULT) [address] [address] WBC (Bld) [#/Vol] 11.95 10*3/uL High 3.99-11.19 [facility] Comment on above: Performed By: #### H EMOGC #### [facility] (DEFAULT) [address] [address] COMPREHENSIVE METABOLIC PANE Jeremias 08-06-2023 Albumin [Mass/Vol] 3.2 g/dL Low 3.5-5.0 [facility] Comment on above: Performed By: #### C RP, CMPN #### [facility] (DEFAULT) [address] [place] [address] 21489 ALP [Catalytic activity/Vol] 91 U/L Normal 32-126 [facility] Comment on above: Performed By: #### C RP, CMPN #### [facility] (DEFAULT) [address] [address] ALT [Catalytic activity/Vol] 6 U/L Low 9-48 [facility] Comment on above: Performed By: #### C RP, CMPN #### [facility] (DEFAULT) [address] [place] [address] 69198 Anion gap [Moles/Vol] 12 mmol/L Normal 7-17 [facility] Comment on above: Performed By: #### C RP, CMPN #### [facility] (DEFAULT) [address] [place] [address] 80855 AST [Catalytic activity/Vol] 11 U/L Normal 10-39 [facility] Comment on above: Performed By: #### C RP, CMPN #### [facility] (DEFAULT) [address] [place] [address]311 Bilirubin [Mass/Vol] 0.4 mg/dL Normal <1.5 [facility] Comment on above: Performed By: #### C RP, CMPN #### [facility] (DEFAULT) [address] [place] [address]16 Calcium [Mass/Vol] 8.6 mg/dL Normal 8.6-10.5 [facility] Comment on above: Performed By: #### C RP, CMPN #### [facility] (DEFAULT) [address] [place] [address]24 Chloride [Moles/Vol] 107 mmol/L Normal 98-108 [facility] Comment on above: Performed By: #### C RP, CMPN #### [facility] (DEFAULT) [address] [place] [address] 33232 CO2 [Moles/Vol] 23 mmol/L Normal 21-31 [facility] Comment on above: Performed By: #### C RP, CMPN #### [facility] (DEFAULT) [address] [place] [address]750 Creatinine [Mass/Vol] 0.45 mg/dL Low 0.50-1.20 [facility] Comment on above: Performed By: #### C RP, CMPN #### [facility] (DEFAULT) [address] [place] [address] 25314 eGFR, CKD-EPI, Female > Normal >=60 [facility] Comment on above: Result Comment: Repo rted eGFR is based on the CKD-EPI 2020 equation using creatinine, age, and sex. Performed By: #### C RP, CMPN #### [facility] (DEFAULT) [address] [place] [address] Glucose [Mass/Vol] 78 mg/dL Normal 70-99 [facility] Comment on above: Performed By: #### C RP, CMPN #### [facility] (DEFAULT) [address] [place] [address]957 Osmolality [Osmolality] 284 mosm/kg Normal 278-305 [facility] Comment on above: Performed By: #### C RP, CMPN #### [facility] (DEFAULT) [address] [place] [address] 71098 Potassium [Moles/Vol] 3.8 mmol/L Normal 3.5-5.0 [facility] Comment on above: Performed By: #### C RP, CMPN #### [facility] (DEFAULT) [address] [place] [address] 07651 Protein [Mass/Vol] 5.4 g/dL Low 6.4-8.3 [facility] Comment on above: Performed By: #### C RP, CMPN #### [facility] (DEFAULT) [address] [place] [address] 10499 Sodium [Moles/Vol] 138 mmol/L Normal 135-145 [facility] Comment on above: Performed By: #### C RP, CMPN #### [facility] (DEFAULT) [address] [place] [address] 49791 Urea nitrogen [Mass/Vol] 4 mg/dL Low 7-25 [facility] Comment on above: Performed By: #### C RP, CMPN #### [facility] (DEFAULT) [address] [place] [address] 52687 Urea nitrogen/Creatinine [Mass ratio] 9 mg/mg Normal [facility] Comment on above: Performed By: #### C RP, CMPN #### [facility] (DEFAULT) [address] [place] [address]326 HEP A AB, TOTAL (IGG+IGM)on 08-06-2023 Hep A Ab, (IgG+IgM) Negative Normal Negative [facility] Comment on above: Performed By: #### H AABG #### [facility] (DEFAULT) [address] [place] [address] POCT URINE DIPSTICK AUTOMATE DOrdered By: Xochitl Murphy on 08-06-2023 Amorphous sediment LM Ql (Urine sed) [facility] Appearance (U) slightly cloudy [facility] Bacteria LM Ql (Urine sed) [facility] Bilirubin Ql (U) Negative [facility] Casts LM.LPF (Urine sed) [#/Area] [facility] Color (U) yellow [facility] Crystals LM Nom (Urine sed) [facility] Epithelial cells.squamous LM.HPF (Urine sed) [#/Area] [facility] Flow cytometry specialist review Trevin (Unsp spec) [Interp] [facility] Glucose Auto test strip (U) [Mass/Vol] Negative mg/dL [facility] Interpretation and review of laboratory results Abnormal [facility] Ketones [Mass/Vol] Negative mg/dL [facility] Leukocyte esterase Qn (U) [facility] Leukocyte esterase Test strip Ql (U) Negative [facility] Microscopic observation Gram stain Nom (Bronch spec) [facility] Nitrite Ql (U) Negative [facility] pH (U) 7.5 [pH] Abnormal 5 - 7 [facility] Protein Ql (U) Negative mg/dL [facility] RBC LM.HPF (Urine sed) [#/Area] [facility] RBC Ql (U) Negative [facility] Specific gravity (U) [Rel density] 1.015 1.001 - 1.035 [facility] Transitional cells LM Ql (Urine sed) [facility] Urobilinogen Qn (U) 0.2 [facility] WBC LM.HPF (Urine sed) [#/Area] [facility] US OB FOLLOW UP TRANSABDOMIN AL APPROACHon 08-03-2023 US OB FOLLOW UP TRANSABDOMINAL APPROACH FINDINGS: A single, live intrauterine is present with normal cardiac rate of 122 beats per minute. Normal activity and amniotic fluid volume. Amniotic fluid index is 14.0cm. Morphology is grossly normal. The cervix is long and closed,6.5 cm. The placenta is anterior, not associated with the cervical os. The current sonographic age is 36 weeks and0 days, based on the following measurements: BPD 9.2 cm (37 weeks, 2 days) Head Circumference 32.3 cm ( 36 weeks, 3 days) Abdominal Circumference 31.4cm ( 35weeks, 2 days) Femur Length 6.9cm ( 35 weeks, 2 days) Presentation Cephalic Placenta Anterior Grade 2 These measurements result in an estimated date of delivery of August 30 The current estimated weight is 2730 grams +/- grams ( 6 pound, 0 ounces). Weight by percentile 86.9% IMPRESSION: Single, live intrauterine , current sonographic age of 36 weeks and 0 days, with an estimated date of delivery of August 31, 2023 TRANSCRIBED BY: ELECTRONICALLY SIGNED BY: Herbie Pace MD Normal Not Available No Panel Informationon 05-26 Rubia Hernandez NP 05/26/2023 5:53 PM Ear Cerumen Removal Date/Time: 05/26/2023 5:46 PM Performed by: Rubia Hernandez NP Authorized by: Rubia Hernandez NP Consent: Consent obtained: Verbal Consent given by: Patient Risks, benefits, and alternatives were discussed: yes Risks discussed: Incomplete removal, TM perforation and dizziness Alternatives discussed: No treatment [place] protocol: Patient identity confirmed: Verbally with patient Procedure details: Location: L ear and R ear Procedure type: irrigation Procedure outcomes: cerumen removed Post-procedure details: Inspection: TM intact Hearing quality: Normal Procedure completion: Tolerated well, no immediate complications [facility] Chlamydia/GC by PCR [place] Sw abon 03-04-2023 Chlamydia Dna(Pcr) Not detected [facility] Gonorrhoeae Dna(Pcr) Not detected Pr [facility] C REACTIVE PROTEINon 023 CRP [Mass/Vol] 4.81 mg/L Normal <10.00 [facility] Comment on above: Performed By: #### H FP, CRP, CHM6 #### [facility] (DEFAULT) [address] [place] [address] CRP High sensitivity method [Mass/Vol] 4.81 mg/L NINF - 10.00 mg/L [facility] Interpretation and review of laboratory results Normal [facility] CHEM 6 (LYTES, BUN CREA)on 04-27-2022 Anion gap [Moles/Vol] 12 mmol/L Normal 7-17 [facility] Comment on above: Performed By: #### H LUIS ANGEL CRP, CHM6 #### [facility] (DEFAULT) [address] [place] [address] Chloride [Moles/Vol] 105 mmol/L Normal 98-108 [facility] Comment on above: Performed By: #### H LUIS ANGEL CRP, CHM6 #### [facility] (DEFAULT) [address] [place] [address]223 CO2 [Moles/Vol] 25 mmol/L Normal 21-31 [facility] Comment on above: Performed By: #### H LUIS ANGEL CRP, CHM6 #### [facility] (DEFAULT) [address] [place] [address]26 Creatinine [Mass/Vol] 0.48 mg/dL Low 0.50-1.20 [facility] Comment on above: Performed By: #### H LUIS ANGEL CRP, CHM6 #### [facility] (DEFAULT) [address] [place] [address]681 eGFR, CKD-EPI, Female > Normal >=60 [facility] Comment on above: Result Comment: Repo rted eGFR is based on the CKD-EPI 2020 equation using creatinine, age, and sex. Performed By: #### H FP CRP, CHM6 #### [facility] (DEFAULT) [address] [place] [address] Potassium [Moles/Vol] 3.9 mmol/L Normal 3.5-5.0 [facility] Comment on above: Performed By: #### H FP, CRP, CHM6 #### [facility] (DEFAULT) [address] [place] [address]19 Sodium [Moles/Vol] 138 mmol/L Normal 135-145 [facility] Comment on above: Performed By: #### H INGA PLASENCIA CHM6 #### [facility] (DEFAULT) [address] [place] [address] Urea nitrogen [Mass/Vol] 7 mg/dL Normal 7-25 [facility] Comment on above: Performed By: #### H INGA PLASENCIA CHM6 #### [facility] (DEFAULT) [address] [place] [address] Urea nitrogen/Creatinine [Mass ratio] 15 mg/mg Normal [facility] Comment on above: Performed By: #### H INGA PLASENCIA CHM6 #### [facility] (DEFAULT) [address] [place] [address] Anion gap [Moles/Vol] 12 mmol/L 7 - 17 mmol/L [facility] Chloride [Moles/Vol] 105 mmol/L 98 - 10 8 mmol/L [facility] CO2 [Moles/Vol] 25 mmol/L 21 - 31 mmol/L [facility] Creatinine [Mass/Vol] 0.48 mg/dL Low 0.50 - 1.20 mg/dL [facility] eGFR, CKD-EPI, Female - PINF [facility] Comment on above: Reported eGFR is bas ed on the CKD-EPI 2020 equation using creatinine, age, and sex. Potassium [Moles/Vol] 3.9 mmol/L 3.5 - 5.0 mmol/L [facility] Sodium [Moles/Vol] 138 mmol/L 135 - 145 mmol/L [facility] Urea nitrogen [Mass/Vol] 7 mg/dL 7 - 25 mg/dL [facility] Urea nitrogen/Creatinine [Mass ratio] 15 mg/mg [facility] Chronic hepatitis differenti ation between hepatitis B and C virus panelOrdered By: Maty Cook on 02-25-2023 HBV core IgG+IgM Ql (S) Negative Negative [facility] HBV surface Ab IA Ql (S) Negative Negative [facility] HBV surface Ag Ql (S) Negative Negative [facility] HCV Ab Ql (S) Negative Negative [facility] Interpretation and review of laboratory results Normal [facility] FOLATE, SERUMon 02-25-2023 Folate 38.76 ng/mL Normal >5.38 [facility] Comment on above: Performed By: #### H EMO #### [facility] (DEFAULT) [address] [place] [address] FOLATE, SERUMOrdered By: Alissa Chamorro on 02-25-2023 Folate [Mass/Vol] 38.76 ng/mL 5.38 - PIN F ng/mL [facility] Interpretation and review of laboratory results Normal [facility] HEPATIC FUNCTION PANELon Albumin [Mass/Vol] 4.0 g/dL Normal 3.5-5.0 [facility] Comment on above: Performed By: #### H FP, CRP, CHM6 #### [facility] (DEFAULT) [address] [place] [address] ALP [Catalytic activity/Vol] 42 U/L Normal 32-126 [facility] Comment on above: Performed By: #### H FP, CRP, CHM6 #### [facility] (DEFAULT) [address] [place] [address] 76654 ALT [Catalytic activity/Vol] 5 U/L Low 9-48 [facility] Comment on above: Performed By: #### H FP, CRP, CHM6 #### [facility] (DEFAULT) [address] [place] [address] AST [Catalytic activity/Vol] 10 U/L Normal 10-39 [facility] Comment on above: Performed By: #### H FP, CRP, CHM6 #### [facility] (DEFAULT) [address] [place] [address] Bilirubin [Mass/Vol] 0.5 mg/dL Normal <1.5 [facility] Comment on above: Performed By: #### H FP, CRP, CHM6 #### [facility] (DEFAULT) [address] [place] [address] Bilirubin.indirect [Mass/Vol] 0.1 mg/dL Normal <0.3 [facility] Comment on above: Performed By: #### H FP, CRP, CHM6 #### [facility] (DEFAULT) [address] [place] [address] 66413 Protein [Mass/Vol] 6.0 g/dL Low 6.4-8.3 [facility] Comment on above: Performed By: #### H FP, CRP, CHM6 #### [facility] (DEFAULT) [address] [place] [address] 89063 Albumin [Mass/Vol] 4.0 g/dL 3.5 - 5.0 g/dL [facility] [facility] ALP [Catalytic activity/Vol] 42 U/L 32 - 126 U/L [facility] ALT [Catalytic activity/Vol] 5 U/L Low 9 - 48 U/L [facility] AST [Catalytic activity/Vol] 10 U/L 10 - 39 U/L [facility] Bilirubin [Mass/Vol] 0.5 mg/dL [facility]/dL [facility] Bilirubin.direct [Mass/Vol] 0.1 mg/dL NINF - 0.3 mg/dL [facility] Protein [Mass/Vol] 6.0 g/dL Low 6.4 - 8.3 g/dL [facility] HEPATITIS BATTERY, CHRONICon 02-25-2023 Hep B Core Ab,Total (IgG+IgM) Negative Normal Negative [facility] Comment on above: Performed By: #### H EP3B #### [facility] (DEFAULT) [address] [place] [address] Hep B Surface Ab Negative Normal Negative [facility] Comment on above: Performed By: #### H EP3B #### [facility] (DEFAULT) [address] [address] Hepatitis B Surface Ag Negative Normal Negative [facility] Comment on above: Performed By: #### H EP3B #### [facility] (DEFAULT) [address] [address] Hepatitis C Antibody Negative Normal Negative [facility] Comment on above: Performed By: #### H EP3B #### [facility] (DEFAULT) [address] [address] HIV 1&2 AB/AG Screen (P24 AG )on 02-25-2023 HIV 1&2 AB/AG Non-Reactive [facility] Hepatitis B surface antigeno n 02-25-2023 Hepatitis B Surface Antigen Non-Reactive [facility] M TUBERCULOSIS BY Carola AMOS 02-25-2023 M. TB Mitogen-Nil 9.94 IU/mL Normal [facility] Comment on above: Order Comment: The M . Tuberculosis antigen levels cannot be correlated to stage or degree of infection, response to therapy or likelihood for progression to active disease. Results from QuantiFERON TB Gold Plus must be used in conjunction with individual epidemiological history, current medical status, and results of other diagnostic evaluation. Performed By: #### Q FTB #### [facility] (DEFAULT) [address] [place] [address] M. TB Nil 0.06 IU/mL Normal [facility] Comment on above: Order Comment: The M . Tuberculosis antigen levels cannot be correlated to stage or degree of infection, response to therapy or likelihood for progression to active disease. Results from QuantiFERON TB Gold Plus must be used in conjunction with individual epidemiological history, current medical status, and results of other diagnostic evaluation. Performed By: #### Q FTB #### [facility] (DEFAULT) [address] [address] M. TB TB1-Nil 0.01 IU/mL Normal [facility] Comment on above: Order Comment: The M . Tuberculosis antigen levels cannot be correlated to stage or degree of infection, response to therapy or likelihood for progression to active disease. Results from QuantiFERON TB Gold Plus must be used in conjunction with individual epidemiological history, current medical status, and results of other diagnostic evaluation. Performed By: #### Q FTB #### [facility] (DEFAULT) [address] [address] M. TB TB2-Nil 0.02 IU/mL Normal [facility] Comment on above: Order Comment: The M . Tuberculosis antigen levels cannot be correlated to stage or degree of infection, response to therapy or likelihood for progression to active disease. Results from QuantiFERON TB Gold Plus must be used in conjunction with individual epidemiological history, current medical status, and results of other diagnostic evaluation. Performed By: #### Q FTB #### [facility] (DEFAULT) [address] [address] M. Tuberculosis by Quantiferon in tube Negative Normal Negative [facility] Comment on above: Order Comment: The M . Tuberculosis antigen levels cannot be correlated to stage or degree of infection, response to therapy or likelihood for progression to active disease. Results from QuantiFERON TB Gold Plus must be used in conjunction with individual epidemiological history, current medical status, and results of other diagnostic evaluation. Performed By: #### Q FTB #### [facility] (DEFAULT) [address] [place] [address] No Panel Informationon 02-25 Interpretation and review of laboratory results Abnormal [facility] Syphilis Total(Unknown Syphi lis Status)on 02-25-2023 Syphilis Non-Reactive [facility] THIOPURINE METHYL-TRANSFERAS Matt 02-25-2023 6-METHYLMERCAPTOPURIN E 3.85 nmol/mL/h Normal 3.00-6.66 [facility] Comment on above: Performed By: #### H EMOGC #### [facility] (DEFAULT) [address] [address] 6-Methylmercaptopurin e riboside 5.67 nmol/mL/h Normal 5.04-9.57 [facility] Comment on above: Performed By: #### H EMOGC #### [facility] (DEFAULT) [address] [address] 6-Methylthioguanine riboside 2.60 nmol/mL/h Low 2.70-5.84 [facility] Comment on above: Performed By: #### H [facility] #### [facility] (DEFAULT) [address] [address] REVIEWED BY Katie Rubin, PhD Normal [facility] Comment on above: Result Comment: Test Performed by: [place] [address] Manager Of Warehouse: Mynor Browne M.D. Ph.D.; CLIA# [id number] Performed By: #### H [facility] #### [facility] (DEFAULT) [address] [address] Thiopurine Methyltransferase SEE COMMENTS Normal [facility] Comment on above: Result Comment: *Nor mal* In this whole blood sample, the profile of activity of thiopurine methyltransferase using three different substrates was normal or essentially normal. ADDITIONAL INFORMATION Liquid Chromatography-Tandem Mass Spectrometry (LC-MS/MS) This test was developed and its performance characteristics determined by [facility] in a manner consistent with CLIA requirements. This test has not been cleared or approved by the U.S. Food and Drug Administration. Performed By: #### H [facility] #### [facility] (DEFAULT) [address] [address] Type and screenon 02-25-2023 Abo/Rh(D) Positive [facility] VITAMIN B12on 02-25-2023 Cobalamin (Vitamin B12) [Mass/Vol] 421 pg/mL Normal 211-911 [facility] Comment on above: Result Comment: Test ing of Methylmalonic Acid and Intrinsic Factor Blocking Antibody are recommended if clinical suspicion for pernicious anemia due to B12 deficiency is high for patients with intermediate B12 levels (211 to 400 pg/mL) to rule out spurious heterophile antibodies. Performed By: #### H EMOGC #### [facility] (DEFAULT) [address] [address] Cobalamin (Vitamin B12) [Mass/Vol] 421 pg/mL 211 - 911 pg/mL [facility] Comment on above: Testing of Methylmal onic Acid and Intrinsic Factor Blocking Antibody are recommended if clinical suspicion for pernicious anemia due to B12 deficiency is high for patients with intermediate B12 levels (211 to 400 pg/mL) to rule out spurious heterophile antibodies. Interpretation and review of laboratory results Normal [facility] ZINC, SERUMon 02-25-2023 ZINC, SERUM 62 mcg/dL Normal 60-106 [facility] Comment on above: Result Comment: ADDITIONAL INFORMATION This test was developed and its performance characteristics determined by [facility] in a manner consistent with CLIA requirements. This test has not been cleared or approved by the U.S. Food and Drug Administration. Test Performed by: [facility] [address] [place] [address] Manager Of Warehouse: Mynor Browne M.D. Ph.D.; CLIA# [id number] Performed By: #### Y ZINC #### [facility] (DEFAULT) [address] [place] [address] Ustekinumab Quantitation wit h Antibodies, Serumon 05-07-2022 Ustekinumab Ab, S Normal [facility] Comment on above: Result Comment: <10 Reference range: <10 Unit: AU/mL (NOTE) Absence of detectable ritjaqof-ga-qdgqegzmvbz. ADDITIONAL INFORMATION This test was developed and its performance characteristics determined by [facility] in a manner consistent with CLIA requirements. This test has not been cleared or approved by the U.S. Food and Drug Administration. Performed at [facility], [address] [place] [address] Ustekinumab QN, S 7.3 Normal [facility] Comment on above: Result Comment: Unit : mcg/mL (NOTE) REFERENCE VALUE Lower limit of quantitation = 0.3 mcg/mL ADDITIONAL INFORMATION This test was developed and its performance characteristics determined by [facility] in a manner consistent with CLIA requirements. This test has not been cleared or approved by the U.S. Food and Drug Administration. CBC Auto Diff Reflex Manualo n 05-05-2022 Absolute Basophils 0.0 10*3/uL Normal [facility] Absolute Eosinophils 0.3 10*3/uL Normal [facility] Absolute Immature Granulocytes 0.0 10*3/uL Normal [facility] Absolute Lymphocytes 1.7 10*3/uL Normal [facility] Absolute Monocytes 0.7 10*3/uL Normal [facility] Absolute Neutrophils 6.9 10*3/uL Normal [facility] Automated Absolute Neutrophil 6.9 10*3/mm3 Normal [facility] Comment on above: Result Comment: Auto mated Absolute Neutrophil Count (ANC) is directly measured using a hematology instrument. ANC determined from manual differential cell count may differ. No [facility] reference range has been validated for this assay. Basophil 0.5 % Normal 0.2-1.6 [facility] Comment No reference range established for absolute counts. Normal [facility] Differential Type Automated Normal [facility] Eosinophil 2.8 % Normal 0.2-8.1 [facility] Immature Granulocytes 0.5 % Normal [facility] Lymphocyte 17.3 % Normal 9.0-51.0 [facility] MCH 31.2 pg Normal 26.0-34.0 [facility] MCHC 33.8 % Normal 31.0-37.0 [facility] MCV 92.1 fL Normal 80.0-100.0 [facility] Monocyte 7.3 % Normal 4.0-13.0 [facility] MPV 10.1 fL Normal 9.3-13.0 [facility] Neutrophil 71.6 % Normal 40.8-78.2 [facility] Platelet Count 242 10*3/uL Normal 142-508 [facility] RBC 4.3 10*6/uL Normal 4.0-5.2 [facility] RDW 13.0 % Normal 10-14.1 [facility] WBC 9.6 10*3/uL Normal 4.5-13.0 [facility] CRPon 05-05-2022 CRP [Mass/Vol] mg/L Normal <1.0 [facility] Comprehensive Metabolic Pane jeremias 05-05-2022 Albumin [Mass/Vol] 4.1 g/dL Normal 3.4-5.2 [facility] ALP [Catalytic activity/Vol] 53 U/L Normal 50-136 [facility] ALT [Catalytic activity/Vol] 21 U/L Normal <36 [facility] AST [Catalytic activity/Vol] 54 U/L High 15-50 [facility] Bilirubin [Mass/Vol] 0.6 mg/dL Normal 0.1-1.0 [facility] Calcium [Mass/Vol] 9.3 mg/dL Normal 8-10.5 [facility] Chloride [Moles/Vol] 107 mmol/L Normal 98-110 [facility] CO2 [Moles/Vol] 25 mmol/L Normal 21-30 [facility] Creatinine [Mass/Vol] 0.56 mg/dL Normal 0.5-1 [facility] Glucose [Mass/Vol] 90 mg/dL Normal 60-115 [facility] Potassium [Moles/Vol] 3.9 mmol/L Normal 3.6-4.9 [facility] Protein [Mass/Vol] 6.6 g/dL Normal 6.5-8.6 [facility] Sodium [Moles/Vol] 138 mmol/L Normal 135-145 [facility] Urea nitrogen [Mass/Vol] 7 mg/dL Normal 5-18 [facility] Reference Lab Teston 023 Comment: Test has been reordered using orderable test code. Normal [facility] Reference Lab: Test has been reordered using orderable test code. Normal [facility] Reference Range: Test has been reordered using orderable test code. Normal [facility] Result: Test has been reordered using orderable test code. Normal [facility] Test Name USTEKINUMAB LEVEL AN D ANTIBODY LEVELS Normal [facility] Sedimentation Rateon 023 Sedimentation Rate 5 mm/h Normal <20 [facility] Vitamin D 25 Hydroxyon 05-05 Vitamin D 25 Hydroxy 30 ng/mL Normal 30-[address] [facility] Comment on above: Result Comment: (NOTE) <21 ng/mL considered deficient 21-29 ng/mL considered insufficient 30-120 ng/mL considered sufficient >120 ng/mL considered high Ranges are based on Endocrine Society criteria. XR Chest 2 Views*on 04-03-20 XR Chest 2 Views* FINDINGS: No acute cardiac or pulmonary disease is identified. No worrisome mass lesions or infiltrates are seen. No pulmonary edema or pneumothorax is present. Cardiac silhouette size is normal. Skeletal structures are normal. IMPRESSION: No acute cardiac or pulmonary disease Report reported and signed by Herbie Pace on 04/03/2022 1551 Normal [facility] [employer] Soluble Transferrin Receptor on 03-22-2022 Soluble Transferrin Receptor 2.[address] [facility] Comment on above: Result Comment: Refe rence range: 1.9 to 4.4 Unit: mg/L (NOTE) INTERPRETIVE INFORMATION: Soluble Transferrin Receptor People of descent and those residing at 5200 feet (1600 meters) above sea level were found to have a 6% higher normal value. These differences were additive. Reference intervals have not been established for females, patients under 18 years of age, and recent or frequent blood donors. Serum soluble transferrin receptor increases in iron deficiency and is usually unaffected by chronic disease states. In general, to increase sensitivity and specificity, the measurement of serum soluble transferrin receptor should be performed in combination with other tests of iron status, including ferritin, TIBC, and serum iron. (See Table Below). Tests for Iron Anemia of Combined Iron Changes Def. Chronic Def. and anemia Analyte in: Anemia Disease of Chronic Dz ------- -------- ------ --------- Ferritin Fe Stores Low High Normal or High TIBC Fe Status High Low Normal or High Serum Fe Fe Status Low Low Low sTfR Fe Status High Normal High Performed By: [facility] [address] [place] [address] Primary Substance Abuse Counselor: New Caraballo MD, PhD Performed at [facility], [address] [place] [address] Performed By: #### X SOLTR ####Performed at [facility], [address] [place] [address] CBC Auto Diff Reflex Manualo n 03-20-2022 Absolute Basophils 0.0 10*3/uL Normal [facility] Absolute Eosinophils 0.3 10*3/uL Normal [facility] Absolute Immature Granulocytes 0.0 10*3/uL Normal [facility] Absolute Lymphocytes 2.1 10*3/uL Normal [facility] Absolute Monocytes 0.9 10*3/uL Normal [facility] Absolute Neutrophils 8.1 10*3/uL Normal [facility] Basophil 0.3 % Normal 0.2-1.6 [facility] Comment No reference range established for absolute counts. Normal [facility] Differential Type Automated Normal [facility] Eosinophil 2.7 % Normal 0.2-8.1 [facility] Immature Granulocytes 0.4 % Normal [facility] Lymphocyte 18.5 % Normal 9.0-51.0 [facility] Monocyte 7.7 % Normal 4.0-13.0 [facility] Neutrophil 70.4 % Normal 40.8-78.2 [facility] Automated Absolute Neutrophil 8.1 10*3/mm3 Normal [facility] Comment on above: Result Comment: Auto mated Absolute Neutrophil Count (ANC) is directly measured using a hematology instrument. ANC determined from manual differential cell count may differ. No [facility] reference range has been validated for this assay. MCH 30.9 pg Normal 26.0-34.0 [facility] MCHC 35.6 % Normal 31.0-37.0 [facility] MCV 87.0 fL Normal 80.0-100.0 [facility] MPV 10.2 fL Normal 9.3-13.0 [facility] Platelet Count 220 10*3/uL Normal 142-508 [facility] RBC 4.5 10*6/uL Normal 4.0-5.2 [facility] RDW 12.0 % Normal 10-14.1 [facility] WBC 11.5 10*3/uL Normal 4.5-13.0 [facility] CRPon 03-20-2022 CRP 0.6 mg/dL Normal <1.0 [facility] Comprehensive Metabolic Pane jeremias 03-20-2022 Albumin [Mass/Vol] 3.9 g/dL Normal 3.4-5.2 [facility] ALP [Catalytic activity/Vol] 53 U/L Normal 50-136 [facility] ALT [Catalytic activity/Vol] 12 U/L Normal <36 [facility] AST [Catalytic activity/Vol] 22 U/L Normal 15-50 [facility] Bilirubin [Mass/Vol] 0.6 mg/dL Normal 0.1-1.0 [facility] Calcium [Mass/Vol] 8.9 mg/dL Normal 8-10.5 [facility] Chloride [Moles/Vol] 106 mmol/L Normal 98-110 [facility] CO2 [Moles/Vol] 24 mmol/L Normal 21-30 [facility] Creatinine [Mass/Vol] 0.50 mg/dL Normal 0.5-1 [facility] Glucose [Mass/Vol] 88 mg/dL Normal 60-115 [facility] Potassium [Moles/Vol] 3.8 mmol/L Normal 3.6-4.9 [facility] Protein [Mass/Vol] 6.3 g/dL Low 6.5-8.6 [facility] Sodium [Moles/Vol] 135 mmol/L Normal 135-145 [facility] Urea nitrogen [Mass/Vol] 5 mg/dL Normal 5-18 [facility] Ferritinon 03-20-2022 Ferritin [Mass/Vol] 177 ng/mL Normal 4-233 [facility] Iron and TIBCon 03-20-2022 Iron [Mass/Vol] 122 ug/dL Normal 65-175 [facility] Iron Saturation 43 % Normal 15-50 [facility] TIBC 280 ug/dL Normal 250-450 [facility] Lab Reporton 03-20-2022 [facility] Lab Report SURGICAL PATHOLOGY REPORT Patient Name: KINGS HATFIELD Jenny [facility] Rec. # : [id number] : 2000 Specimen # : [id number] Date Taken: 03/20/2022 Date Reported: 03/24/2022 Specimen(s) Received Right posterior back mass Diagnosis Right posterior back mass, excision: - Soft tissue with chronic inflammation and foreign body-type giant cells, consistent with previous ruptured cyst - Skin with no significant diagnostic alteration Electronically Signed Out By Oc Woods MD ar/03/24/2022 Oc Woods MD Clinical History Posterior right back mass excisional biopsy Gross Description Received in formalin labeled with the patient's name, MRN and right posterior back mass is a 1.8 x 0.9 x 0.3 cm ugalde-pink to yellow, focally cauterized, focally fibrotic, irregular portion of soft tissue. The specimen is inked green and bisected to reveal ugalde-yellow, focally fibrotic and focally erythematous cut surfaces. Also received is a 0.6 x 0.2 cm unoriented, ugalde skin ellipse excised to a maximum depth of 0.1 cm. No definitive epidermal lesions are grossly identified. The underlying soft tissue is brown, diffusely cauterized and inked green. The skin is serially sectioned to reveal ugalde-white, grossly unremarkable cut surfaces. The specimen is entirely submitted in three cassettes as follows: A1 - skin tips, A2 - skin cross sections, A3 - bisected soft tissue . OSKAR Smith, FEI cc/03/21/2022 Microscopic Description Microscopic examination has been performed in all specimens, and all relevant histological findings are incorporated into the final diagnoses. Testing performed at [facility], [facility] [facility], [place] [address], , . Normal [facility] Comment on above: Performed By: #### S URG ####[place] [address] POCT HCG, Urine Qualitativeo n 03-20-2022 Beta HCG ( test) Ql (U) Negative Normal NEG [facility] Comment: First morning urine is the specimen of choice for urine test. False negative results can occur when random urine specimens are tested. A serum test is recommended if results do not correlate with the patient's clinical condition. Normal [facility] Surgical Pathologyon 022 Specimen description RIGHT POSTERIOR CARLY K MASS Normal [facility] Comment on above: Performed By: #### S URGSR #### [place] [address] Surgical Pathology Specimen Specimen has been received and is being processed. A separate report will be issued. Normal [facility] Comment on above: Performed By: #### S URGSR #### [place] [address] Total B Cell (CD19, CD20) Qu antitation by Flow, Bloodon 03-20-2022 CD19+CD20+ B cells (%Lymphs) 0 % Low 6-20 [facility] Comment on above: Performed By: #### T BCQN ####[place] [address] CD19+CD20+ B cells AB 0 cells/uL Low 80-407 [facility] Comment on above: Performed By: #### T BCQN ####[place] [address] CD45+ Lymphocytes (ALC) AB 1856 cells/uL Normal 981-2690 [facility] Comment on above: Performed By: #### T BCQN ####[place] [address] Final Diagnosis Normal [facility] Comment on above: Result Comment: Abse nt CD19+20+ B cells in blood. Assay useful for evaluation of total CD19+CD20+ B cells in the context of B cell depleting therapies, or any context where only a global B cell count is required. Performed By: #### T BCQN ####[place] [address] Note This test was developed and its performance characteristics determined by [facility]. It has not been cleared or approved by the FDA. The laboratory is regulated under CLIA as qualified to perform high complexity testing. This test is used for clinical purposes. It should not be regarded as investigational or for research. Normal [facility] Comment on above: Performed By: #### T BCQN ####Performed at [facility], [address] [place] [address] Vitamin D 25 Hydroxyon 03-20 Vitamin D 25 Hydroxy 30 ng/mL Normal 30-[address] [facility] Comment on above: Result Comment: (NOTE) <21 ng/mL considered deficient 21-29 ng/mL considered insufficient 30-120 ng/mL considered sufficient >120 ng/mL considered high Ranges are based on Endocrine Society criteria. XR Chest 2 Views*on 03-10-20 XR Chest 2 Views* FINDINGS: No acute cardiac or pulmonary disease is identified. No worrisome mass lesions or infiltrates are seen. No pulmonary edema or pneumothorax is present. Cardiac silhouette size is normal. Skeletal structures are normal. IMPRESSION: No focal infiltrates Report reported and signed by Herbie Pace on 03/10/2022 1220 Normal [facility] [employer] Soluble Transferrin Receptor on 02-06-2022 Soluble Transferrin Receptor 4.[address] [facility] Comment on above: Result Comment: Refe rence range: 1.9 to 4.4 Unit: mg/L (NOTE) INTERPRETIVE INFORMATION: Soluble Transferrin Receptor People of descent and those residing at 5200 feet (1600 meters) above sea level were found to have a 6% higher normal value. These differences were additive. Reference intervals have not been established for females, patients under 18 years of age, and recent or frequent blood donors. Serum soluble transferrin receptor increases in iron deficiency and is usually unaffected by chronic disease states. In general, to increase sensitivity and specificity, the measurement of serum soluble transferrin receptor should be performed in combination with other tests of iron status, including ferritin, TIBC, and serum iron. (See Table Below). Tests for Iron Anemia of Combined Iron Changes Def. Chronic Def. and anemia Analyte in: Anemia Disease of Chronic Dz ------- -------- ------ --------- Ferritin Fe Stores Low High Normal or High TIBC Fe Status High Low Normal or High Serum Fe Fe Status Low Low Low sTfR Fe Status High Normal High Performed By: [facility] [address] [place] [address] Primary Substance Abuse Counselor: New Caraballo MD, PhD Performed at [facility], [address] [place] [address] Performed By: #### X SOLTR #### Performed at [facility], [address] [place] [address] Ferritinon 02-04-2022 Ferritin [Mass/Vol] 32 ng/mL Normal 4-233 [facility] Phosphoruson 02-04-2022 Phosphate [Mass/Vol] 3.2 mg/dL Normal 2.5-4.7 [facility] XR Chest 2 Views*on 12-07-19 XR Chest 2 Views* HISTORY: Acute Cough FINDINGS: Comparison made with prior examiantion of November 19, 2021. No new infiltrates, consolidation or pneumothorax. Mild peribronchial thickening accentuated by slightly greater reduction in lung volumes on the current examination. IMPRESSION: 1. No new infiltrates or significant post-inflammatory sequela. Report reported and signed by Herbie Pace on 12/06/2021 1352 Normal [facility] [employer] XR Chest 2 Views*on 11-20-19 XR Chest 2 Views* FINDINGS: No acute cardiac or pulmonary disease is identified. No worrisome mass lesions or infiltrates are seen. No pulmonary edema or pneumothorax is present. Cardiac silhouette size is normal. Skeletal structures are normal. IMPRESSION: No acute cardiac or pulmonary disease Report reported and signed by Herbie Pace on 11/19/2021 1128 Normal [facility] [employer] [facility] Complete Blood Count with Au to Diffon 07-30-2021 Basophils (Bld) [#/Vol] 0.06 10*3/uL Normal 0.00-0.20 [facility] Comment on above: Performed By: #### C BCAD #### [facility] [address] [place], [place] [id number] Basophils/100 WBC (Bld) 0.5 % Normal [facility] Specialist Comment on above: Performed By: #### C BCAD #### [facility] [address] [place], [place] [id number] Eosinophils (Bld) [#/Vol] 0.35 10*3/uL Normal 0.02-0.50 [facility] Comment on above: Performed By: #### C BCAD #### [facility] [address] [place], [place] [id number] Eosinophils/100 WBC (Bld) 2.8 % Normal [facility] Comment on above: Performed By: #### C BCAD #### [facility] [address] [place], [place] [id number] Erythrocyte distribution width (RBC) [Ratio] 12.7 % Normal 11.0-15.0 [facility] Comment on above: Performed By: #### C BCAD #### [facility] [address] [place], [place] [id number] Hematocrit (Bld) [Volume fraction] 37.5 % Normal 35.0-47.0 [facility] Comment on above: Performed By: #### C BCAD #### [facility] [address] [place], [place] [id number] Hemoglobin (Bld) [Mass/Vol] 12.2 g/dL Normal 11.6-15.5 [facility] Comment on above: Performed By: #### C BCAD #### [facility] [address] [place], [place] [id number] Lymphocytes (Bld) [#/Vol] 2.5 10*3/uL Normal 0.9-3.9 [facility] Special[facility] Comment on above: Performed By: #### C BCAD #### [facility] [address] [place], [place] [id number] Lymphocytes/100 WBC (Bld) 19.8 % Normal [facility] Specialist Comment on above: Performed By: #### C BCAD #### [facility] [address] [place], [place] [id number] MCH (RBC) [Entitic mass] 29.7 pg Normal 27.0-33.0 [facility] Special[facility] Comment on above: Performed By: #### C BCAD #### [facility] [address] [place], [place] [id number] MCHC (RBC) [Mass/Vol] 32.5 g/dL Normal 32.0-36.[address] [facility] Comment on above: Performed By: #### C BCAD #### [facility] [address] [place], [place] [id number] MCV (RBC) [Entitic vol] 91 fL Normal 80-100 [facility] Comment on above: Performed By: #### C BCAD #### [facility] [address] [place], [place] [id number] Monocytes (Bld) [#/Vol] 0.9 10*3/uL Normal 0.2-0.9 [facility] Comment on above: Performed By: #### C BCAD #### [facility] [address] [place], [place] [id number] Monocytes/100 WBC (Bld) 7.2 % Normal [facility] Comment on above: Performed By: #### C BCAD #### [facility] [address] [place], [place] [id number] Neutrophils (Bld) [#/Vol] 8.8 10*3/uL High 1.5-7.8 [facility] Comment on above: Performed By: #### C BCAD #### [facility] [address] [place], [place] [id number] Neutrophils/100 WBC (Bld) 69.3 % Normal [facility] Comment on above: Performed By: #### C BCAD #### [facility] [address] [place], [place] [id number] Platelet mean volume (Bld) [Entitic vol] 10.20 fL Normal 7.50-12.50 [facility] Comment on above: Performed By: #### C BCAD #### [facility] [address] [place], [place] [id number] Platelets (Bld) [#/Vol] 258 10*3/uL Normal 140-400 [facility] Specialist Comment on above: Performed By: #### C BCAD #### [facility] [address] [place], [place] [id number] RBC (Bld) [#/Vol] 4.11 10*6/uL Normal 3.90-5.20 [facility] Comment on above: Performed By: #### C BCAD #### [facility] [address] [place], [place] [id number] RDW-SD 41.4 fL Normal 37.0-50.0 [facility] Comment on above: Performed By: #### C BCAD #### [facility] [address] [place], [place] [id number] WBC (Bld) [#/Vol] 12.7 10*3/uL High 3.8-11.0 [facility] Comment on above: Performed By: #### C BCAD #### [facility] [address] [place], [place] [id number] IgG Subclasseson 07-12-2021 IgG subclass 1 300 mg/dL Normal 240-[address] [facility] Comment on above: Result Comment: (NOT E) REFERENCE INTERVAL: Immunoglobulin G Subclass 1 The total IgG (mg/dL) can be derived from the sum of the subclass IgG1, IgG2, IgG3, and IgG4 values. However, a confirmatory and more precise total IgG is available by the turbidimetric method of quantitation for total IgG. Refer to test Immunoglobulin G, Serum ([id number]). Access complete set of age- and/or gender-specific reference intervals for this test in the [facility] Laboratory Test Directory ([facility]). Performed By: #### A IGGSB, APNAB1 #### [facility] [address] [place] [address] Manager Of Warehouse: Cody Dye MD #### IFX, FLLS, IMMS, CDP, THYGLA #### [facility] [employer] [address] [place] [address] Manager Of Warehouse: Jone Eller MD IgG subclass 2 193 mg/dL Normal 124-[address] [facility] Comment on above: Result Comment: (NOT E) REFERENCE INTERVAL: Immunoglobulin G Subclass 2 Access complete set of age- and/or gender-specific reference intervals for this test in the [employer] Laboratory Test Directory ([facility]). Performed By: #### A IGGSB, APNAB1 #### [address] [address] Manager Of Warehouse: Cody Dye MD #### IFX, FLLS, IMMS, CDP, THYGLA #### [address] [address] Manager Of Warehouse: Jone Eller MD IgG subclass 3 61 mg/dL Normal 21-[address] [facility] Comment on above: Result Comment: (NOT E) REFERENCE INTERVAL: Immunoglobulin G Subclass 3 Access complete set of age- and/or gender-specific reference intervals for this test in the [facility] Test Directory ([facility]). Performed By: #### A IGGSB, APNAB1 #### [address] [address] Manager Of Warehouse: Cody Dye MD #### IFX, FLLS, IMMS, CDP, THYGLA #### [address] [id number] Manager Of Warehouse: Jone Eller MD IgG subclass 4 3 mg/dL Normal 1-[address] [facility] Comment on above: Result Comment: (NOT E) REFERENCE INTERVAL: Immunoglobulin G Subclass 4 Access complete set of age- and/or gender-specific reference intervals for this test in the [facility] Test Directory ([facility]). Performed by [facility], [address] [place] [id number] [email or web address], Ruthie Augustin MD, Lab. Director Performed By: #### A IGGSB, APNAB1 #### [address] [address] Manager Of Warehouse: Cody Dye MD #### IFX, FLLS, IMMS, CDP, THYGLA #### [address] [id number] Manager Of Warehouse: Jone Eller MD Pneumococcal Ab, IgGon 07-12 S.pneum Interp See Note Normal [facility] Comment on above: Result Comment: (NOT E) INTERPRETIVE INFORMATION: Streptococcus pneumoniae Antibodies, IgG A pre- and post-vaccination comparison is required to adequately assess the humoral immune response to Prevnar 7 (P7), Prevnar 13 (P13), and/or Pneumovax 23 (PNX) Streptococcus pneumoniae vaccines. Pre-vaccination samples should be collected prior to vaccine administration. Post-vaccination samples should be obtained at least 4 weeks after immunization. Testing of post-vaccination samples alone will provide only general immune status of the individual to various pneumococcal serotypes. In the case of pure polysaccharide vaccine, indication of immune system competence is further delineated as an adequate response to at least 50 percent of the serotypes in the vaccine challenge for those 2-5 years of age and to at least 70 percent of the serotypes in the vaccine challenge for those 6-65 years of age. Individual immune response may vary based on age, past exposure, immunocompetence, and pneumococcal serotype. Responder Status Antibody Ratio Non-Responder . . . . . . . . . . . . . . Less than 2-fold Weak Responder . . . . . . . . . . . . . 2-fold to 4-fold Good Responder . . . . . . . . . . . . . Greater than 4-fold A response to 50-70 percent or more of the serotypes in the vaccine challenge is considered a normal humoral response(1). Antibody concentration greater than 1.0 - 1.3 ug/mL is generally considered long-term protection(2). References: 1. Goldie GALAVIZ, Kedar JOHNSON, Vinny X, Prince DOSS, Alber CARDENAS. Multilaboratory assessment of threshold versus fold-change algorithms for minimizing analytical variability in multiplexed pneumococcal IgG measurements. Clin Vaccine Immunol. 2014;21(7):982-8. 2. Goldie GALAVIZ, Alber CARDENAS. Use and Clinical Interpretation of Pneumococcal Antibody Measurements in the Evaluation of Humoral Immune Function. Clin Vaccine Immunol. 2015;22(2):148-152. This test was developed and its performance characteristics determined by [facility]. It has not been cleared or approved by the [place] Food and Drug Administration. This test was performed in a CLIA certified laboratory and is intended for clinical purposes. Performed By: [facility] [address] [place] [address] Primary Substance Abuse Counselor: Ruthie Augustin MD Performed By: #### A IGGSB, APNAB1 #### [facility] [address] [place] [address] Manager Of Warehouse: Cody Dye MD #### IFX, FLLS, IMMS, CDP, THYGLA #### [address] [address] Manager Of Warehouse: Jone Eller MD S.pneum type 1,IgG 0.11 ug/mL Normal [facility] Comment on above: Performed By: #### A IGGSB, APNAB1 #### [facility] [address] [place] [address] Manager Of Warehouse: Cody Dye MD #### IFX, FLLS, IMMS, CDP, THYGLA #### [address] [address] Manager Of Warehouse: Jone Eller MD S.pneum type 12F,IgG 0.14 ug/mL Normal [facility] Comment on above: Performed By: #### A IGGSB, APNAB1 #### [facility] [address] [place] [address] Manager Of Warehouse: Cody Dye MD #### IFX, FLLS, IMMS, CDP, THYGLA #### [address] [address] Manager Of Warehouse: Jone Eller MD S.pneum type 14,IgG 0.19 ug/mL Normal [facility] Comment on above: Performed By: #### A IGGSB, APNAB1 #### [facility] [address] [place] [address] Manager Of Warehouse: Cody Dey MD #### IFX, FLLS, IMMS, CDP, THYGLA #### [address] [phone] Manager Of Warehouse: Jone Eller MD S.pneum type 18C,IgG 6.82 ug/mL Normal [facility] Comment on above: Performed By: #### A IGGSB, APNAB1 #### [facility] [address] [place] [address] Manager Of Warehouse: Cody Dye MD #### IFX, FLLS, IMMS, CDP, THYGLA #### [facility] [address] [place] [phone] Manager Of Warehouse: Jone Eller MD S.pneum type 19F,IgG 10.07 ug/mL Normal [facility] Comment on above: Performed By: #### A IGGSB, APNAB1 #### [facility] [address] [place] [address] Manager Of Warehouse: Cody Dye MD #### IFX, FLLS, IMMS, CDP, THYGLA #### [address] [phone] Manager Of Warehouse: Jone Eller MD S.pneum type 23F,IgG 2.17 ug/mL Normal [facility] Comment on above: Performed By: #### A IGGSB, APNAB1 #### [facility] [address] [place], [place] [id number] Manager Of Warehouse: Cody Dye MD #### IFX, FLLS, IMMS, CDP, THYGLA #### [address] [phone] Manager Of Warehouse: Jone Eller MD S.pneum type 3,IgG 0.92 ug/mL Normal [facility] Comment on above: Performed By: #### A IGGSB, APNAB1 #### [facility] [address] [place] [address] Manager Of Warehouse: Cody Dye MD #### IFX, FLLS, IMMS, CDP, THYGLA #### [address] [phone] Manager Of Warehouse: Jone Eller MD S.pneum type 4,IgG 0.08 ug/mL Normal [facility] Comment on above: Performed By: #### A IGGSB, APNAB1 #### [facility] [address] [place] [address] Manager Of Warehouse: Cody Dye MD #### IFX, FLLS, IMMS, CDP, THYGLA #### [address] [phone] Manager Of Warehouse: Jone Eller MD S.pneum type 5,IgG 3.04 ug/mL Normal [facility] Comment on above: Performed By: #### A IGGSB, APNAB1 #### [facility] [address] [place] [address] Manager Of Warehouse: Cody Dye MD #### IFX, FLLS, IMMS, CDP, THYGLA #### [address] [phone] Manager Of Warehouse: Jone Eller MD S.pneum type 6B,IgG 0.76 ug/mL Normal [facility] Comment on above: Performed By: #### A IGGSB, APNAB1 #### [facility] [address] [place], [place] [phone] Manager Of Warehouse: Cody Dye MD #### IFX, FLLS, IMMS, CDP, THYGLA #### [address] [phone] Manager Of Warehouse: Jone Eller MD S.pneum type 7F,IgG 1.36 ug/mL Normal [facility] Comment on above: Performed By: #### A IGGSB, APNAB1 #### [facility] [address] [place] [address] Manager Of Warehouse: Cody Dye MD #### IFX, FLLS, IMMS, CDP, THYGLA #### [address] [phone] Manager Of Warehouse: Jone Eller MD S.pneum type 8,IgG 0.40 ug/mL [facility] Comment on above: Performed By: #### A IGGSB, APNAB1 #### [facility] [address] [place] [address] Manager Of Warehouse: Cody Dye MD #### IFX, FLLS, IMMS, CDP, THYGLA #### [address] [phone] Manager Of Warehouse: Jone Eller MD S.pneum type 9N,IgG 0.54 ug/mL [facility] Comment on above: Performed By: #### A IGGSB, APNAB1 #### [facility] [address] [place] [phone] Manager Of Warehouse: Cody Dye MD #### IFX, FLLS, IMMS, CDP, THYGLA #### [place] [phone] Manager Of Warehouse: Jone Eller MD S.pneum type 9V,IgG 0.75 ug/mL [facility] Comment on above: Performed By: #### A IGGSB, APNAB1 #### [facility] [address] [place], [place] [phone] Manager Of Warehouse: Cody Dye MD #### IFX, FLLS, IMMS, CDP, THYGLA #### [address] [address] Manager Of Warehouse: Jone Eller MD Immunofixation,Blood 07-10 IFX - Interpret. IMMUNOFIXATION IS NEGATIVE FOR MONOCLONAL IMMUNOGLOBULIN. [facility] Comment on above: Performed By: #### A IGGSB, APNAB1 #### [facility] [address] [place] [address] Manager Of Warehouse: Cody Dye MD #### IFX, FLLS, IMMS, CDP, THYGLA #### [address] [address] Manager Of Warehouse: Jone Eller MD Pathologist Review: ELECTRONICALLY SIGNED. VADIM TURNER M.D. Normal [facility] Comment on above: Performed By: #### A IGGSB, APNAB1 #### [facility] [address] [place] [address] Manager Of Warehouse: Cody Dye MD #### IFX, FLLS, IMMS, CDP, THYGLA #### [address] [address] Manager Of Warehouse: Jone Eller MD Lymphocyte Subseton 07-11-19 22 Ab(CD3-,CD56+) 123 /uL Normal 90-[address] [facility] Comment on above: Performed By: #### A IGGSB, APNAB1 #### [facility] [address] [place] [address] Manager Of Warehouse: Cody Dye MD #### IFX, FLLS, IMMS, CDP, THYGLA #### [address] [address] Manager Of Warehouse: Jone Eller MD Ab.T Help(CD3+,CD4+) 1652 /uL High 309-1571 [facility] Comment on above: Performed By: #### A IGGSB, APNAB1 #### [facility] [address] [place] [address] Manager Of Warehouse: Cody Dye MD #### IFX, FLLS, IMMS, CDP, THYGLA #### [address] [address] Manager Of Warehouse: Jone Eller MD Ab.T Sup.(CD3+,CD8+) 641 /uL Normal 282-999 [facility] Comment on above: Performed By: #### A IGGSB, APNAB1 #### [facility] [address] [place] [address] Manager Of Warehouse: Cody Dye MD #### IFX, FLLS, IMMS, CDP, THYGLA #### [facility] [address] [place] [address] Manager Of Warehouse: Jone Eller MD Abs. Total B (CD19+) 0 /uL Low 71-567 [facility] Comment on above: Performed By: #### A IGGSB, APNAB1 #### [facility] [address] [place] [address] Manager Of Warehouse: Cody Dye MD #### IFX, FLLS, IMMS, CDP, THYGLA #### [address] [address] Manager Of Warehouse: Jone Eller MD Abs. Total T (CD3+) 2317 /uL High 411-[address] [facility] Comment on above: Performed By: #### A IGGSB, APNAB1 #### [facility] [address] [place] [address] Manager Of Warehouse: Cody Dye MD #### IFX, FLLS, IMMS, CDP, THYGLA #### [address] [address] Manager Of Warehouse: Jone Eller MD H/S Ratio(CD4+/CD8+) 2.58 Normal 0.6-2.8 [facility] Comment on above: Performed By: #### A IGGSB, APNAB1 #### [facility] [address] [place] [address] Manager Of Warehouse: Cody Dye MD #### IFX, FLLS, IMMS, CDP, THYGLA #### [address] [address] Manager Of Warehouse: Jone Eller MD Lymphocytes/100 WBC (Bld) 17 % Low 25-[address] [facility] Comment on above: Performed By: #### A IGGSB, APNAB1 #### [facility] [address] [place] [address] Manager Of Warehouse: Cody Dye MD #### IFX, FLLS, IMMS, CDP, THYGLA #### [address] [phone] Manager Of Warehouse: Jone Eller MD NK (CD3-,CD56+) 5 % Low 6-[address] [facility] Comment on above: Performed By: #### A IGGSB, APNAB1 #### [facility] [address] [place], [place] [phone] Manager Of Warehouse: Cody Dye MD #### IFX, FLLS, IMMS, CDP, THYGLA #### [address] [address] Manager Of Warehouse: Jone Eller MD T Newberg (CD3+,CD4+) 67 % High 27-64 [facility] Comment on above: Performed By: #### A IGGSB, APNAB1 #### [facility] [address] [place] [address] Manager Of Warehouse: Cody Dye MD #### IFX, FLLS, IMMS, CDP, THYGLA #### [address] [phone] Manager Of Warehouse: Jone Eller MD T Sup. (CD3+, CD8+) 26 % Normal 17-[address] [facility] Comment on above: Performed By: #### A IGGSB, APNAB1 #### [facility] [address] [place] [address] Manager Of Warehouse: Cody Dye MD #### IFX, FLLS, IMMS, CDP, THYGLA #### [address] [address] Manager Of Warehouse: Jone Eller MD Total B (CD19+) 0 % Low 5-[address] [facility] Comment on above: Performed By: #### A IGGSB, APNAB1 #### [facility] [address] [place] [address] Manager Of Warehouse: Cody Dye MD #### IFX, FLLS, IMMS, CDP, THYGLA #### [address] [address] Manager Of Warehouse: Jone Eller MD Total T (CD3+) 94 % Normal 57-[address] [facility] Comment on above: Performed By: #### A IGGSB, APNAB1 #### [facility] [address] [place] [address] Manager Of Warehouse: Cody Dye MD #### IFX, FLLS, IMMS, CDP, THYGLA #### [address] [address] Manager Of Warehouse: Jone Eller MD WBC (Bld) [#/Vol] 14.5 10*3/uL High 4.5-13.[address] [facility] Comment on above: Performed By: #### A IGGSB, APNAB1 #### [facility] [address] [place] [address] Manager Of Warehouse: Cody Dye MD #### IFX, FLLS, IMMS, CDP, THYGLA #### [address] [address] Manager Of Warehouse: Jone Eller MD Thyroglobulin Abon Thyroglobulin Ab Qn [IU]/mL Normal 0.0-40.[address] [facility] Comment on above: Result Comment: Reference Range: <40.0 Negative 40.0-60.0 Equivocal >60.0 Positive When results are Equivocal, it is recommended to retest after 8-12 weeks. Performed By: #### A IGGSB, APNAB1 #### [facility] [address] [place] [address] Manager Of Warehouse: Cody Dye MD #### IFX, FLLS, IMMS, CDP, THYGLA #### [facility] [address] [place] [address] Manager Of Warehouse: Jone Eller MD CBC with Auto Differentialon 07-09-2021 Absolute Eos # 0.43 [facility] th Absolute Immature Granulocyte 0.08 [facility] English Absolute Lymph # 2.41 [facility] alth Absolute [place] # 1.26 [facility] [place] lt Basophils (Bld) [#/Vol] 0.08 10*3/uL [facility] Basophils/100 WBC (Bld) 1 % 0 - 2 % [facility] English Eosinophils/100 WBC (Bld) 3 % 1 - 4 % [facility] Hematocrit (Bld) [Volume fraction] 40.7 % 36.3 - 47.1 % [facility] Hemoglobin.gastrointe stinal spec 1 Ql (Stl) 13.5 g/dL 11.9 - 15.1 g/dL [facility] English Immature granulocytes/100 WBC (Bld) 1 % High 0 [facility] Interpretation and review of laboratory results Abnormal [facility] Lymphocytes/100 WBC (Bld) 17 % Low 25 - 45 % [facility] MCH (RBC) [Entitic mass] 30.1 pg 25.2 - 33.5 pg [facility] MCHC (RBC) [Mass/Vol] 33.2 g/dL 28.4 - 34.8 g/dL [facility] MCV (RBC) [Entitic vol] 90.8 fL 82.6 - 102.9 fL [facility] Monocytes/100 WBC (Bld) 9 % High 2 - 8 % [facility] NRBC Automated 0.0 0.0 per 100 WBC [facility] Platelet distribution width (Bld) [Ratio] 12.7 % 11.8 - 14.4 % [facility] Platelet mean volume (Bld) [Entitic vol] 9.9 fL 8.1 - 13.5 fL [facility] Platelets (Bld) [#/Vol] 277 10*3/uL [facility] RBC (Bld) [#/Vol] 4.48 10*6/uL 3.95 - 5.1 1 m/uL [facility] Segmented neutrophils/100 WBC (Bld) 69 % High 34 - 64 % [facility] Segs Absolute 10.22 High [facility] Healt h WBC (Bld) [#/Vol] 14.5 10*3/uL High [facility] CBC with Diffon 07-09-2021 Abs. Basophil 0.08 k/uL Normal 0.00-0.[address] [facility] Comment on above: Performed By: #### A IGGSB, APNAB1 #### [facility] [address] [place], [place] [phone] Manager Of Warehouse: Cody Dye MD #### IFX, FLLS, IMMS, CDP, THYGLA #### [facility] [employer] [address] [place] [address] Manager Of Warehouse: Jone Eller MD Abs.Imm.Granulocyte 0.08 k/uL Normal 0.00-0.[address] [facility] Comment on above: Performed By: #### A IGGSB, APNAB1 #### [facility] [address] [place], [place] [phone] Manager Of Warehouse: Cody Dye MD #### IFX, FLLS, IMMS, CDP, THYGLA #### [facility] [employer] [facility] [place] [address] Manager Of Warehouse: Jone Eller MD Abs.Neutrophil (Seg) 10.22 k/uL High 1.80-8.00 [facility] Comment on above: Performed By: #### A IGGSB, APNAB1 #### [facility] [address] [place] [address] Manager Of Warehouse: Cody Dye MD #### IFX, FLLS, IMMS, CDP, THYGLA #### [address] [phone] Manager Of Warehouse: Jone Eller MD Basophils/100 WBC (Bld) 1 % Normal 0-[address] [facility] Comment on above: Performed By: #### A IGGSB, APNAB1 #### [facility] [address] [place] [address] Manager Of Warehouse: Cody Dye MD #### IFX, FLLS, IMMS, CDP, THYGLA #### [address] [phone] Manager Of Warehouse: Jone Eller MD Eosinophils (Bld) [#/Vol] 0.43 10*3/uL Normal 0.00-0.[address] [facility] Comment on above: Performed By: #### A IGGSB, APNAB1 #### [facility] [address] [place], [place] [id number] Manager Of Warehouse: Cody Dye MD #### IFX, FLLS, IMMS, CDP, THYGLA #### [address] [phone] Manager Of Warehouse: Jone Eller MD Eosinophils/100 WBC (Bld) 3 % Normal 1-[address] [facility] Comment on above: Performed By: #### A IGGSB, APNAB1 #### [facility] [address] [place] [address] Manager Of Warehouse: Cody Dye MD #### IFX, FLLS, IMMS, CDP, THYGLA #### [address] [phone] Manager Of Warehouse: Jone Eller MD Erythrocyte distribution width (RBC) [Ratio] 12.7 % Normal 11.8-14.[address] [facility] Comment on above: Performed By: #### A IGGSB, APNAB1 #### [facility] [address] [place] [address] Manager Of Warehouse: Cody Dye MD #### IFX, FLLS, IMMS, CDP, THYGLA #### [address] [id number] Manager Of Warehouse: Jone Eller MD Hematocrit (Bld) [Volume fraction] 40.7 % Normal 36.3-47.[address] [facility] Comment on above: Performed By: #### A IGGSB, APNAB1 #### [facility] [address] [place] [address] Manager Of Warehouse: Cody Dye MD #### IFX, FLLS, IMMS, CDP, THYGLA #### [address] [id number] Manager Of Warehouse: Jone Eller MD Hemoglobin (Bld) [Mass/Vol] 13.5 g/dL Normal 11.9-15.[address] [facility] Comment on above: Performed By: #### A IGGSB, APNAB1 #### [facility] [address] [place], [place] [id number] Manager Of Warehouse: Cody Dye MD #### IFX, FLLS, IMMS, CDP, THYGLA #### [facility] [address] [place] [address] [phone] Manager Of Warehouse: Jone Eller MD Immature granulocytes/100 WBC (Bld) 1 % High [address] [facility] Comment on above: Performed By: #### A IGGSB, APNAB1 #### [facility] [address] [place] [address] Manager Of Warehouse: Cody Dye MD #### IFX, FLLS, IMMS, CDP, THYGLA #### [address] [place] [address] Manager Of Warehouse: Jone Eller MD Lymphocytes (Bld) [#/Vol] 2.41 10*3/uL Normal 1.20-5.[address] [facility] Comment on above: Performed By: #### A IGGSB, APNAB1 #### [facility] [address] [place], [place] [id number] Manager Of Warehouse: Cody Dye MD #### IFX, FLLS, IMMS, CDP, THYGLA #### [place] [address] Manager Of Warehouse: Jone Eller MD Lymphocytes/100 WBC (Bld) 17 % Low 25-[address] [facility] Comment on above: Performed By: #### A IGGSB, APNAB1 #### [facility] [address] [place], [place] [id number] Manager Of Warehouse: Cody Dye MD #### IFX, FLLS, IMMS, CDP, THYGLA #### [place] [address] Manager Of Warehouse: Jone Eller MD MCH (RBC) [Entitic mass] 30.1 pg Normal 25.2-33.[address] [facility] Comment on above: Performed By: #### A IGGSB, APNAB1 #### [facility] [address] [place], [place] [id number] Manager Of Warehouse: Cody Dye MD #### IFX, FLLS, IMMS, CDP, THYGLA #### [place] [address] Manager Of Warehouse: Jone Eller MD MCHC (RBC) [Mass/Vol] 33.2 g/dL Normal 28.4-34.8 [facility] Comment on above: Performed By: #### A IGGSB, APNAB1 #### [facility] [address] [place] [address] Manager Of Warehouse: Cody Dye MD #### IFX, FLLS, IMMS, CDP, THYGLA #### [address] [address] Manager Of Warehouse: Jone Eller MD MCV (RBC) [Entitic vol] 90.8 fL Normal 82.6-102.[address] [facility] Comment on above: Performed By: #### A IGGSB, APNAB1 #### [facility] [address] [place] [address] Manager Of Warehouse: Cody Dye MD #### IFX, FLLS, IMMS, CDP, THYGLA #### [address] [phone] Manager Of Warehouse: Jone Eller MD Monocytes (Bld) [#/Vol] 1.26 10*3/uL Normal 0.10-1.[address] [facility] Comment on above: Performed By: #### A IGGSB, APNAB1 #### [facility] [address] [place] [address] Manager Of Warehouse: Cody Dye MD #### IFX, FLLS, IMMS, CDP, THYGLA #### [address] [phone] Manager Of Warehouse: Jone Eller MD Monocytes/100 WBC (Bld) 9 % High 2-[address] [facility] Comment on above: Performed By: #### A IGGSB, APNAB1 #### [facility] [address] [place] [address] Manager Of Warehouse: Cody Dye MD #### IFX, FLLS, IMMS, CDP, THYGLA #### [address] [phone] Manager Of Warehouse: Jone Eller MD Neutrophil (Seg) 69 % High 34-64 [facility] Comment on above: Performed By: #### A IGGSB, APNAB1 #### [facility] [address] [place] [address] Manager Of Warehouse: Cody Dye MD #### IFX, FLLS, IMMS, CDP, THYGLA #### [address] [phone] Manager Of Warehouse: Jone Eller MD NRBC Automated 0.0 per 100 WBC Normal 0.[address] [facility] Comment on above: Performed By: #### A IGGSB, APNAB1 #### [facility] [address] [place] [address] Manager Of Warehouse: Coyd Dye MD #### IFX, FLLS, IMMS, CDP, THYGLA #### [address] [address] Manager Of Warehouse: Jone Eller MD Platelet mean volume (Bld) [Entitic vol] 9.9 fL Normal 8.1-13.[address] [facility] Comment on above: Performed By: #### A IGGSB, APNAB1 #### [facility] [address] [place], [place] [id number] Manager Of Warehouse: Cody Dye MD #### IFX, FLLS, IMMS, CDP, THYGLA #### [address] [address] Manager Of Warehouse: Jone Eller MD Platelets (Bld) [#/Vol] 277 10*3/uL Normal 138-[address] [facility] Comment on above: Performed By: #### A IGGSB, APNAB1 #### [facility] [address] [place] [address] Manager Of Warehouse: Cody Dye MD #### IFX, FLLS, IMMS, CDP, THYGLA #### [address], [place] [phone] Manager Of Warehouse: Jone Eller MD RBC (Bld) [#/Vol] 4.48 10*6/uL Normal 3.95-5.[address] [facility] Comment on above: Performed By: #### A IGGSB, APNAB1 #### [facility] [address] [place] [address] Manager Of Warehouse: Cody Dye MD #### IFX, FLLS, IMMS, CDP, THYGLA #### [facility] [address] [place] [address] [id number] Manager Of Warehouse: Jone Eller MD WBC (Bld) [#/Vol] 14.5 10*3/uL High 4.5-13.[address] [facility] Comment on above: Performed By: #### A IGGSB, APNAB1 #### [facility] [address] [place] [address] Manager Of Warehouse: Cody Dye MD #### IFX, FLLS, IMMS, CDP, THYGLA #### [facility] [address] [place] [address] [phone] Manager Of Warehouse: Jone Eller MD Immunoglobulin Panel (IgG, I gA, IgM)on 07-09-2021 IgA [Mass/Vol] 201 mg/dL 70 - 400 mg/dL [facility] IgG [Mass/Vol] 545 mg/dL Low 700 - 1600 mg/dL [facility] IgM [Mass/Vol] 70 mg/dL 40 - 230 mg/dL [facility] Interpretation and review of laboratory results Abnormal [facility] Immunoglobulinson 07-09-2021 IgA [Mass/Vol] 201 mg/dL Normal 70-[address] [facility] Comment on above: Performed By: #### A IGGSB, APNAB1 #### [facility] [address] [place] [address] Manager Of Warehouse: Cody Dye MD #### IFX, FLLS, IMMS, CDP, THYGLA #### [facility] [address] [place] [address] [phone] Manager Of Warehouse: Jone Eller MD IgG [Mass/Vol] 545 mg/dL Low 700-[address] [facility] Comment on above: Performed By: #### A IGGSB, APNAB1 #### [facility] [address] [place], [place] [phone] Manager Of Warehouse: Coyd Dye MD #### IFX, FLLS, IMMS, CDP, THYGLA #### [facility] [address] [place] [address] [phone] Manager Of Warehouse: Jone Eller MD IgM [Mass/Vol] 70 mg/dL Normal 40-[address] [facility] Comment on above: Performed By: #### A IGGSB, APNAB1 #### [facility] [address] [place], [place] [id number] Manager Of Warehouse: Cody Dye MD #### IFX, FLLS, IMMS, CDP, THYGLA #### [address] [phone] Manager Of Warehouse: Jone Eller MD CBC AUTO DIFFon 06-27-2021 BASO # 0.1 103/ul Normal 0.0-0.1 [facility] Comment on above: Performed By: #### T RANSFR #### [facility] [address] [place] [address] Dr. Orlando Saldivar Basophils/100 WBC (Bld) 0.5 % Normal 0.2-2.0 [facility] Comment on above: Performed By: #### T RANSFR #### [facility] [address] [place] [address] Dr. Orlando Saldivar EO # 0.4 103/ul Normal 0.0-0.7 [facility] Comment on above: Performed By: #### T RANSFR #### [facility] [address] [place] [address] Dr. Orlando Saldivar Eosinophils/100 WBC (Bld) 2.4 % Normal 0.9-7.0 [facility] Comment on above: Performed By: #### T RANSFR #### [facility] [address] [place] [address] Dr. Orlando Saldivar Erythrocyte distribution width (RBC) [Ratio] 12.8 % Normal 11.0-15.0 [facility] Comment on above: Performed By: #### T RANSFR #### [facility] [address] [place] [address] Dr. Orlando Saldivar Hematocrit (Bld) [Volume fraction] 38.1 % Normal 36.0-48.0 [facility] Comment on above: Performed By: #### T RANSFR #### [facility] [address] [place] [address] Dr. Orlando Saldivar Hemoglobin (Bld) [Mass/Vol] 12.7 g/dL Normal 12.0-16.0 [facility] Comment on above: Performed By: #### T RANSFR #### [facility] [address] [place] [address] Dr. Orlando Saldivar IG # 0.05 10e3/ul Critically high 0.00-0.03 [facility] Comment on above: Performed By: #### T RANSFR #### [facility] [address] [place] [address] Dr. Orlando Saldivar IG % 0.3 % Normal 0.0-0.5 [facility] Comment on above: Performed By: #### T RANSFR #### [facility] [address] [place] [address] Dr. Orlando Saldivar LYMPH # 2.5 103/ul Normal 1.2-3.8 [facility] Comment on above: Performed By: #### T RANSFR #### [facility] [address] [place] [address] Dr. Orlando Saldivar Lymphocytes/100 WBC (Bld) 16.1 % Critically low 20.5-60.0 [facility] Comment on above: Performed By: #### T RANSFR #### [facility] [address] [place] [address] Dr. Orlando Saldivar MANUAL DIFF REQ NO Normal [facility] Comment on above: Performed By: #### T RANSFR #### [facility] [address] [place] [address] Dr. Orlando Saldivar MCH (RBC) [Entitic mass] 30.0 pg Normal 26.7-34.0 [facility] Comment on above: Performed By: #### T RANSFR #### [facility] [address] [place] [address] Dr. Orlando Saldivar MCHC (RBC) [Mass/Vol] 33.3 g/dL Normal 29.9-35.2 [facility] Comment on above: Performed By: #### T RANSFR #### [facility] [address] [place] [address] Dr. Orlando Saldivar MCV (RBC) [Entitic vol] 90.1 fL Normal 81.0-99.0 [facility] Comment on above: Performed By: #### T RANSFR #### [facility] [address] [place] [address] Dr. Orlando Saldivar MONO # 1.0 103/ul Critically high 0.3-0.[address] [facility] Comment on above: Performed By: #### T RANSFR #### [facility] [address] [place] [address] Dr. Orlando Saldivar Monocytes/100 WBC (Bld) 6.6 % Normal 1.7-12.0 [facility] Comment on above: Performed By: #### T RANSFR #### [facility] [address] [place] [address] Dr. Orlando Saldivar NEUT # 11.3 103/ul Critically high 1.4-6.[address] [facility] Comment on above: Performed By: #### T RANSFR #### [facility] [address] [place] [address] Dr. Orlando Saldivar Neutrophils/100 WBC (Bld) 74.1 % Normal 43.0-75.0 [facility] Comment on above: Performed By: #### T RANSFR #### [facility] [address] [address] [address] Orlando Saldivar Platelet mean volume (Bld) [Entitic vol] 9.3 fL Critically low 9.5-13.5 [facility] Comment on above: Performed By: #### T RANSFR #### [facility] [address] [address] [address] Orlando Saldivar PLT 256 103/ul Normal 150-450 [facility] Comment on above: Performed By: #### T RANSFR #### [facility] [address] [address] [address] Orlando Saldivar RBC 4.23 106/ul Normal 4.20-5.40 [facility] Comment on above: Performed By: #### T RANSFR #### [facility] [address] [place] [address] Dr. Orlando Saldivar WBC 15.2 103/ul Critically high 4.0-11.[address] [facility] Comment on above: Performed By: #### T RANSFR #### [facility] [address] [place] [address] Dr. Orlando Saldivar CRPon 06-27-2021 CRP [Mass/Vol] mg/L Normal <=1.0 [facility] Comment on above: Performed By: #### C MP, CRP #### [facility] [address] [place] [address] Dr. Orlando Saldivar PROF 14(COMP METB)on 022 Albumin [Mass/Vol] 3.8 g/dL Normal 3.5-5.0 [facility] Comment on above: Performed By: #### C MP, CRP #### [facility] [address] [place] [address] Dr. Orlando Saldivar Albumin/Globulin [Mass ratio] 1.2 {ratio} Normal [facility] Comment on above: Performed By: #### C MP, CRP #### [facility] [address] [place] [address] Dr. Orlando Saldivar ALP [Catalytic activity/Vol] 65 U/L Normal 38-126 [facility] Comment on above: Performed By: #### C MP, CRP #### [facility] [address] [address] [address] Orlando Saldivar ALT [Catalytic activity/Vol] 11 U/L Normal 9-52 [facility] Comment on above: Performed By: #### C MP, CRP #### [facility] [address] [address] [address] Orlando Saldivar Anion gap [Moles/Vol] 12.9 mmol/L Normal [facility] Comment on above: Performed By: #### C MP, CRP #### [facility] [address] [address] [address] Orlando Saldivar AST [Catalytic activity/Vol] 10 U/L Critically low 14-36 [facility] Comment on above: Performed By: #### C MP, CRP #### [facility] [address] [place] [address] Dr. Orlando Saldivar Bilirubin [Mass/Vol] 0.6 mg/dL Normal 0.2-1.3 [facility] Comment on above: Performed By: #### C MP, CRP #### [facility] [address] [address] [address] Orlando Saldivar Calcium [Mass/Vol] 9.0 mg/dL Normal 8.4-10.2 [facility] Comment on above: Performed By: #### C MP, CRP #### [facility] [address] [address] [address] Orlando Saldivar Chloride [Moles/Vol] 102 mmol/L Normal 98-107 [facility] Comment on above: Performed By: #### C MP, CRP #### [facility] [address] [address] [address] Orlando Saldivar CO2 [Moles/Vol] 28.9 mmol/L Normal 22.0-30.0 [facility] Comment on above: Performed By: #### C MP, CRP #### [facility] [address] [address] [address] Orlando Saldivar Creatinine [Mass/Vol] 0.80 mg/dL Normal 0.52-1.04 [facility] Comment on above: Performed By: #### C MP, CRP #### [facility] [address] [address] [address] Orlando Saldivar EGFR-AF [facility] LUCIAN >60 Normal >=60 [facility] Comment on above: Performed By: #### C MP, CRP #### [facility] [address] [address] [address] Orlando Saldivar EGFR-NON AF [facility] LUCIAN >60 Normal >=60 [facility] Comment on above: Performed By: #### C MP, CRP #### [facility] [address] [address] [address] Orlando Saldivar Globulin (S) [Mass/Vol] 3.1 g/dL Normal [facility] Comment on above: Performed By: #### C MP, CRP #### [facility] [address] [place] [address] Dr. Orlando Saldivar Glucose [Mass/Vol] 90 mg/dL Normal 74-106 [facility] Comment on above: Performed By: #### C MP, CRP #### [facility] [address] [address] [address] Orlando Saldivar Potassium [Moles/Vol] 3.8 mmol/L Normal 3.4-5.0 [facility] Comment on above: Performed By: #### C MP, CRP #### [facility] [address] [address] [address] Orlando Saldivar Protein [Mass/Vol] 6.9 g/dL Normal 6.1-8.2 [facility] Comment on above: Performed By: #### C MP, CRP #### [facility] [address] [address] [address] Orlando Saldivar Sodium [Moles/Vol] 140 mmol/L Normal 137-145 [facility] Comment on above: Performed By: #### C MP, CRP #### [facility] [address] [address] [address] Orlando Saldivar Urea nitrogen [Mass/Vol] 13.0 mg/dL Normal 6.4-19.3 [facility] Comment on above: Performed By: #### C MP, CRP #### [facility] [address] [address] [address] Orlando Saldivar Urea nitrogen/Creatinine [Mass ratio] 16.2 mg/mg Normal [facility] Comment on above: Performed By: #### C MP, CRP #### [facility] [address] [address] [address] Orlando Saldivar SED RATE WE[place]SIER[facility] TU[place]ONRENon 2021 SED RATE 11 mm/hr Normal <=20 [facility] Comment on above: Performed By: #### S EDR #### [facility] [address] [address] [address] Orlando Saldivar Complete Blood Count with Au to Diffon 06-13-2021 Basophils (Bld) [#/Vol] 0.05 10*3/uL Normal 0.00-0.20 [facility] Comment on above: Performed By: #### C BCAD #### [facility] [address] [place], [place] [id number] Basophils/100 WBC (Bld) 0.4 % Normal [facility] Comment on above: Performed By: #### C BCAD #### [facility] [address] [place], [place] [id number] Eosinophils (Bld) [#/Vol] 0.43 10*3/uL Normal 0.02-0.50 [facility] Comment on above: Performed By: #### C BCAD #### [facility] [address] [place], [place] [id number] Eosinophils/100 WBC (Bld) 3.0 % Normal [facility] Comment on above: Performed By: #### C BCAD #### [facility] [address] [place], [place] [id number] Erythrocyte distribution width (RBC) [Ratio] 12.4 % Normal 11.0-15.0 [facility] Comment on above: Performed By: #### C BCAD #### [facility] [address] [place], [place] [id number] Hematocrit (Bld) [Volume fraction] 38.3 % Normal 35.0-47.0 [facility] Comment on above: Performed By: #### C BCAD #### [facility] [address] [place], [place] [id number] Hemoglobin (Bld) [Mass/Vol] 12.7 g/dL Normal 11.6-15.5 [facility] Comment on above: Performed By: #### C BCAD #### [facility] [address] [place], [place] [id number] Lymphocytes (Bld) [#/Vol] 1.8 10*3/uL Normal 0.9-3.9 [facility] Comment on above: Performed By: #### C BCAD #### [facility] [address] [place], [place] [id number] Lymphocytes/100 WBC (Bld) 12.8 % Normal [facility] Comment on above: Performed By: #### C BCAD #### [facility] [address] [place], [place] [id number] MCH (RBC) [Entitic mass] 30.0 pg Normal 27.0-33.0 [facility] Comment on above: Performed By: #### C BCAD #### [facility] [address] [place], [place] [id number] MCHC (RBC) [Mass/Vol] 33.2 g/dL Normal 32.0-36.[address] [facility] Comment on above: Performed By: #### C BCAD #### [facility] [address] [place], [place] [id number] MCV (RBC) [Entitic vol] 90 fL Normal 80-100 [facility] Comment on above: Performed By: #### C BCAD #### [facility] [address] [place], [place] [id number] Monocytes (Bld) [#/Vol] 1.0 10*3/uL High 0.2-0.9 [facility] Comment on above: Performed By: #### C BCAD #### [facility] [address], [place] [id number] Monocytes/100 WBC (Bld) 7.4 % Normal [facility] Comment on above: Performed By: #### C BCAD #### [facility] [address] [place], [place] [id number] Neutrophils (Bld) [#/Vol] 10.7 10*3/uL High 1.5-7.8 [facility] Comment on above: Performed By: #### C BCAD #### [facility] [address], [place] [id number] Neutrophils/100 WBC (Bld) 75.9 % Normal [facility] Comment on above: Performed By: #### C BCAD #### [facility] [address] [place], [place] [id number] Platelet mean volume (Bld) [Entitic vol] 10.00 fL Normal 7.50-12.50 [facility] Comment on above: Performed By: #### C BCAD #### [facility] [address], [place] [id number] Platelets (Bld) [#/Vol] 293 10*3/uL Normal 140-400 [facility] Comment on above: Performed By: #### C BCAD #### [facility] [address] [place], [place] [id number] RBC (Bld) [#/Vol] 4.24 10*6/uL Normal 3.90-5.20 [facility] Comment on above: Performed By: #### C BCAD #### [facility] [address] [place], [place] [id number] RDW-SD 40.5 fL Normal 37.0-50.0 [facility] Comment on above: Performed By: #### C BCAD #### [facility] [address], [place] [id number] WBC (Bld) [#/Vol] 14.1 10*3/uL High 3.8-11.0 [facility] Comment on above: Performed By: #### C BCAD #### [facility] [address], [place] [id number] ZINC SERUM OR PLASMAon 05-03 Zinc, Plasma or Serum 74 ug/dL Normal 44-115 [facility] Comment on above: Result Comment: Dete ction Limit = 5 Performed By: #### Z inc #### [facility] [address] [place] [address] [id number] [address] Orlando Saldivar TRANSFERRINon 05-01-2021 Transferrin [Mass/Vol] 194 mg/dL Normal 192-364 [facility] Comment on above: Performed By: #### T RANSFR #### [facility] [address] [place] [address] Dr. Orlando Saldivar CBC AUTO DIFFon 04-30-2021 BASO # 0.1 103/ul Normal 0.0-0.1 [facility] Comment on above: Performed By: #### C BC #### [facility] [address] [place] [address] Dr. Orlando Saldivar Basophils/100 WBC (Bld) 0.4 % Normal 0.2-2.0 [facility] Comment on above: Performed By: #### C BC #### [facility] [address] [place] [address] Dr. Orlando Saldivar EO # 0.2 103/ul Normal 0.0-0.7 [facility] Comment on above: Performed By: #### C BC #### [facility] [address] [place] [address] Dr. Orlando Saldivar Eosinophils/100 WBC (Bld) 1.6 % Normal 0.9-7.0 [facility] Comment on above: Performed By: #### C BC #### [facility] [address] [place] [address] Dr. Orlando Saldivar Erythrocyte distribution width (RBC) [Ratio] 13.1 % Normal 11.0-15.0 [facility] Comment on above: Performed By: #### C BC #### [facility] [address] [place] [address] Dr. Orlando Saldivar Hematocrit (Bld) [Volume fraction] 40.1 % Normal 36.0-48.0 [facility] Comment on above: Performed By: #### C BC #### [facility] [address] [place] [address] Dr. Orlando Saldivar Hemoglobin (Bld) [Mass/Vol] 13.3 g/dL Normal 12.0-16.0 [facility] Comment on above: Performed By: #### C BC #### [facility] [address] [place] [address] Dr. Orlando Saldivar IG # 0.06 10e3/ul Critically high 0.00-0.03 [facility] Comment on above: Performed By: #### C BC #### [facility] [address] [place] [address] Dr. Orlando Saldivar IG % 0.5 % Normal 0.0-0.5 [facility] Comment on above: Performed By: #### C BC #### [facility] [address] [place] [address] Dr. Orlando Saldivar LYMPH # 1.8 103/ul Normal 1.2-3.8 [facility] Comment on above: Performed By: #### C BC #### [facility] [address] [place] [address] Dr. Orlando Saldivar Lymphocytes/100 WBC (Bld) 15.0 % Critically low 20.5-60.0 [facility] Comment on above: Performed By: #### C BC #### [facility] [address] [place] [address] Dr. Orlando Saldivar MANUAL DIFF REQ NO Normal [facility] Comment on above: Performed By: #### C BC #### [facility] [address] [place] [address] Dr. Orlando Saldivar MCH (RBC) [Entitic mass] 29.8 pg Normal 26.7-34.0 [facility] Comment on above: Performed By: #### C BC #### [facility] [address] [place] [address] Dr. Orlando Saldivar MCHC (RBC) [Mass/Vol] 33.2 g/dL Normal 29.9-35.2 [facility] Comment on above: Performed By: #### C BC #### [facility] [address] [place] [address] Dr. Orlando Saldivar MCV (RBC) [Entitic vol] 89.7 fL Normal 81.0-99.0 [facility] Comment on above: Performed By: #### C BC #### [facility] [address] [place] [address] Dr. Orlando Saldivar MONO # 0.7 103/ul Normal 0.3-0.8 [facility] Comment on above: Performed By: #### C BC #### [facility] [address] [place] [address] Dr. Orlando Saldivar Monocytes/100 WBC (Bld) 6.0 % Normal 1.7-12.0 [facility] Comment on above: Performed By: #### C BC #### [facility] [address] [place] [address] Dr. Orlando Saldivar NEUT # 9.4 103/ul Critically high 1.4-6.5 [facility] Comment on above: Performed By: #### C BC #### [facility] [address] [place] [address] Dr. Orlando Saldivar Neutrophils/100 WBC (Bld) 76.5 % Critically high 43.0-75.0 [facility] Comment on above: Performed By: #### C BC #### [facility] [address] [place] [address] Dr. Orlando Saldivar Platelet mean volume (Bld) [Entitic vol] 9.7 fL Normal 9.5-13.5 [facility] Comment on above: Performed By: #### C BC #### [facility] [address] [place] [address] Dr. Orlando Saldivar PLT 211 103/ul Normal 150-450 [facility] Comment on above: Performed By: #### C BC #### [facility] [address] [place] [address] Dr. Orlando Saldivar RBC 4.47 106/ul Normal 4.20-5.40 [facility] Comment on above: Performed By: #### C BC #### [facility] [address] [place] [address] Dr. Orlando Saldivar WBC 12.3 103/ul Critically high 4.0-11.0 [facility] Comment on above: Performed By: #### C BC #### [facility] [address] [place] [address] Dr. Orlando Saldivar CRPon 04-30-2021 CRP [Mass/Vol] mg/L Normal <=1.0 [facility] Comment on above: Performed By: #### C MP, CRP #### [facility] [address] [place] [address] Dr. Orlando Saldivar FERRITINon 04-30-2021 Ferritin [Mass/Vol] 118.0 ng/mL Normal 6.2-137.0 [facility] Comment on above: Performed By: #### T RANSFR #### [facility] [address] [address] [address] Orlando Saldivar IRON AND TIBCon 04-30-2021 % SATURATION 26.3 % Normal [facility] Comment on above: Performed By: #### F ERR, FETIBC, VITB12 #### [facility] [address] [place] [address] Dr. Orlando Saldivar Iron [Mass/Vol] 59.0 ug/dL Normal 37.0-170.[address] [facility] Comment on above: Performed By: #### F ERR, FETIBC, VITB12 #### [facility] [address] [address] [address] Orlando Saldivar TIBC DIRECT 224.0 ug/dL Critically low 261.0-497.0 [facility] Comment on above: Performed By: #### F ERR, FETIBC, VITB12 #### [facility] [address] [place] [address] Dr. Orlando Saldivar PROF 14(COMP METB)on 022 Albumin [Mass/Vol] 3.7 g/dL Normal 3.5-5.0 [facility] Comment on above: Performed By: #### C MP, CRP #### [facility] [address] [address] [address] Orlando Saldivar Albumin/Globulin [Mass ratio] 1.3 {ratio} Normal [facility] Comment on above: Performed By: #### C MP, CRP #### [facility] [address] [place] [address] Dr. Orlando Saldivar ALP [Catalytic activity/Vol] 66 U/L Normal 38-126 [facility] Comment on above: Performed By: #### C MP, CRP #### [facility] [address] [address] [address] Orlando Saldivar ALT [Catalytic activity/Vol] 9 U/L Normal 9-52 [facility] Comment on above: Performed By: #### C MP, CRP #### [facility] [address] [address] [address] Orlando Saldivar Anion gap [Moles/Vol] 12.4 mmol/L Normal Th [facility] Comment on above: Performed By: #### C MP, CRP #### [facility] [address] [address] [address] Orlando Saldivar AST [Catalytic activity/Vol] 10 U/L Critically low 14-36 [facility] Comment on above: Performed By: #### C MP, CRP #### [facility] [address] [address] [address] Orlando Saldivar Bilirubin [Mass/Vol] 0.4 mg/dL Normal 0.2-1.3 [facility] Comment on above: Performed By: #### C MP, CRP #### [facility] [address] [address] [address] Orlando Saldivar Calcium [Mass/Vol] 9.0 mg/dL Normal 8.4-10.2 [facility] Comment on above: Performed By: #### C MP, CRP #### [facility] [address] [address] [address] Orlando Saldivar Chloride [Moles/Vol] 103 mmol/L Normal 98-107 [facility] Comment on above: Performed By: #### C MP, CRP #### [facility] [address] [address] [address] Orlando Saldivar CO2 [Moles/Vol] 26.0 mmol/L Normal 22.0-30.0 [facility] Comment on above: Performed By: #### C MP, CRP #### [facility] [address] [address] [address] Orlando Saldivar Creatinine [Mass/Vol] 0.92 mg/dL Normal 0.52-1.04 [facility] Comment on above: Performed By: #### C MP, CRP #### [facility] [address] [address] [address] Orlando Saldivar EGFR-AF [facility] LUCIAN >60 Normal >=60 [facility] Comment on above: Performed By: #### C MP, CRP #### [facility] [address] [address] [address] Orlando Saldivar EGFR-NON AF [facility] LUCIAN >60 Normal >=60 [facility] Comment on above: Performed By: #### C MP, CRP #### [facility] [address] [address] [address] Orlando Saldivar Globulin (S) [Mass/Vol] 2.9 g/dL Normal [facility] Comment on above: Performed By: #### C MP, CRP #### [facility] [address] [place] [address] Dr. Orlando Saldivar Glucose [Mass/Vol] 119 mg/dL Critically high 74-106 [facility] Comment on above: Performed By: #### C MP, CRP #### [facility] [address] [address] [address] Orlando Saldivar Potassium [Moles/Vol] 3.4 mmol/L Normal 3.4-5.0 [facility] Comment on above: Performed By: #### C MP, CRP #### [facility] [address] [address] [address] Orlando Saldivar Protein [Mass/Vol] 6.6 g/dL Normal 6.1-8.2 [facility] Comment on above: Performed By: #### C MP, CRP #### [facility] [address] [address] [address] Orlando Saldivar Sodium [Moles/Vol] 138 mmol/L Normal 137-145 [facility] Comment on above: Performed By: #### C MP, CRP #### [facility] [address] [address] [address] Orlando Saldivar Urea nitrogen [Mass/Vol] 8.0 mg/dL Normal 6.4-19.3 [facility] Comment on above: Performed By: #### C MP, CRP #### [facility] [address] [place] [address] Dr. Orlando Saldivar Urea nitrogen/Creatinine [Mass ratio] 8.7 mg/mg Normal [facility] Comment on above: Performed By: #### C MP, CRP #### [facility] [address] [place] [address] Dr. Orlando Saldivar SED RATE WESTERGRENon 2021 SED RATE 7 mm/hr Normal <=20 [facility] Comment on above: Performed By: #### S EDR #### [facility] [address] [place] [address] Dr. Orlando Saldivar VITAMIN B12on 04-30-2021 Cobalamin (Vitamin B12) [Mass/Vol] 812.0 pg/mL Normal 239.0-931.0 [facility] Comment on above: Performed By: #### T RANSFR #### [facility] [address] [place] [address] Dr. Orlando Mcdowell 12-12-2020 L - -------- Specimen: [id number] Received: 12/13/20 Status: RADHA Paz Num: [id number] Spec Type: Surgical Subm Dr: Beau Waterman MD Tissues: A Skin-Other than Cyst, tag, debridement or plastic repair (R CHEEK) Procedures: HE Stain, Gross/Micro L4 -------- Patient Age/Sex Location Account Attending Physician -------- [place] [id number] Beau Waterman MD -------- SPEC NUM: [id number] RECD: 12/13/20 STATUS: RADHA PAZ NUM: [id number] SHAY: 12/12/20- SUBM DR: Beau Waterman MD ENTERED: 12/13/[address]: DAVID TYPE: Surgical DEPT: S ORDERED: HE Stain, Gross/Micro L4 ORDERED: HE Stain, Gross/Micro L4 Pathological Diagnosis Skin, right cheek, biopsy: - Skin showing chronic inflammation with giant cell reaction, suggestive of ruptured and inflamed epidermal inclusion cyst Clinical Information Mass increasing in size, primary biopsy. D49.2 Gross Description Received in formalin labeled with the patient's name, number and right cheek is a 0.3 cm ugalde, smooth skin punch excised to a maximum depth of 0.2 cm. The resection margin is inked black and the fragment is submitted in toto. Entirely submitted in one cassette labeled A1. (SHALINI/EMIR) Microscopic Description Seven glass slides with H E stained material including six deeper section slides have been examined. The microscopic findings support the above pathologic diagnosis. [id number] -------- -------- Specimen: [id number] Received: 12/13/20 Status: RADHA Leeann Num: [id number] Spec Type: Surgical Subm Dr: Beau Waterman MD Tissues: A Skin-Other than Cyst, tag, debridement or plastic repair (R CHEEK) Procedures: HE Stain, Gross/Micro L4 -------- Patient: [place] [id number] (Continued) -------- Signed (signature on file) Ella Zhou MD 12/18/[address] [facility] Reportson 01-17-2020 Lab Reports [id number] .00CD:127 [facility] Consultation Noteon 01-13-20 Consultation Note [id number]. 00CD:127 [facility] Auth for Release of Medical Recordson 12-09-2019 Auth for Release of Medical Records [id number]. 00CD:127 [facility] Consultation Noteon 11-24-19 Consultation Note [id number] .00CD:127 [facility] Consultation Noteon 11-22-19 Consultation Note [id number] .00CD:127 [facility] Vital Signs Date Time Vital Sign Value Performing Clinician Facility 08-06-2023 11:43-0400 Body height 160 cm Velia Yo MD Work Phone: [facility] 08-06-2023 11:43-0400 Body mass index (BMI) [Ratio] 37.91 kg/m2 Velia Yo MD Work Phone: [facility] 08-06-2023 11:43-0400 Body weight 97.07 kg Velia Yo MD Work Phone: [facility] 08-06-2023 11:43-0400 Diastolic blood pressure 76 mm[Hg] Velia Yo MD Work Phone: [facility] 08-06-2023 11:43-0400 Heart rate 101 /min Velia Yo MD Work Phone: [facility] 08-06-2023 11:43-0400 SaO2% (BldA) [Mass fraction] 98 % Velia Yo MD Work Phone: [facility] 08-06-2023 11:43-0400 Systolic blood pressure 102 mm[Hg] Velia Yo MD Work Phone: [facility] 08-06-2023 09:34-0400 Body height 160 cm Teresa eGrber [employer]EL[employer] SALES REPRESENTATIVE-SADDLE AND SIDE WIRE STITCHER Work Phone: [facility] 08-06-2023 09:34-0400 Body mass index (BMI) [Ratio] 37.98 kg/m2 Teresa Gerber [employer]EL[employer] SALES REPRESENTATIVE-SADDLE AND SIDE WIRE STITCHER Work Phone: [facility] 08-06-2023 09:34-0400 Body weight 97.25 kg Teresa Gerber [employer]EL[employer] SALES REPRESENTATIVE-SADDLE AND SIDE WIRE STITCHER Work Phone: [facility] 08-06-2023 09:34-0400 Diastolic blood pressure 76 mm[Hg] Teresa Gerber [employer]EL[employer] SALES REPRESENTATIVE-SADDLE AND SIDE WIRE STITCHER Work Phone: [facility] 08-06-2023 09:34-0400 Heart rate 75 /min Teresa Gerber [employer]EL[employer] SALES REPRESENTATIVE-SADDLE AND SIDE WIRE STITCHER Work Phone: [facility] 08-06-2023 09:34-0400 SaO2% (BldA) [Mass fraction] 98 % Teresa Gerber [employer] SALES REPRESENTATIVE-SADDLE AND SIDE WIRE STITCHER Work Phone: [facility] 08-06-2023 09:34-0400 Systolic blood pressure 102 mm[Hg] Teresa Gerber [employer] SALES REPRESENTATIVE-SADDLE AND SIDE WIRE STITCHER Work Phone: [facility] 05-26-2023 17:17-0500 Body height 160 cm Rubia Hernandez CONTRACT ANALYST Work Phone: [facility] 05-26-2023 17:17-0500 Body mass index (BMI) [Ratio] 34.97 kg/m2 Rubia Hernandez CONTRACT ANALYST Work Phone: [facility] 05-26-2023 17:17-0500 Body weight 89.54 kg Rubia Hernandez CONTRACT ANALYST Work Phone: [facility] 05-26-2023 17:17-0500 Diastolic blood pressure 60 mm[Hg] Rubia Hernandez CONTRACT ANALYST Work Phone: [facility] 05-26-2023 17:17-0500 Heart rate 104 /min Rubia Hernandez CONTRACT ANALYST Work Phone: [facility] 05-26-2023 17:17-0500 SaO2% (BldA) [Mass fraction] 99 % Rubia Hernandez CONTRACT ANALYST Work Phone: [facility] 05-26-2023 17:17-0500 Systolic blood pressure 110 mm[Hg] Rubia Hrenandez CONTRACT ANALYST Work Phone: [facility] 04-24-2023 13:59-0500 Body height 160 cm Ruchi Carmona MD Work Phone: [facility] 04-24-2023 13:59-0500 Diastolic blood pressure 68 mm[Hg] Ruchi Carmona MD Work Phone: [facility] 04-24-2023 13:59-0500 Heart rate 81 /min Ruchi Carmona MD Work Phone: [facility] 04-24-2023 13:59-0500 Systolic blood pressure 106 mm[Hg] Ruchi Carmona MD Work Phone: [facility] 02-25-2023 12:32-0500 Body height 160 cm Giovani Edmonds MD Work Phone: [facility] 02-25-2023 12:32-0500 Body mass index (BMI) [Ratio] 32.06 kg/m2 Giovani Edmonds MD Work Phone: [facility] 02-25-2023 12:32-0500 Body weight 82.1 kg Giovani Edmonds MD Work Phone: [facility] 02-25-2023 12:32-0500 Diastolic blood pressure 70 mm[Hg] Giovani Edmonds MD Work Phone: [facility] 02-25-2023 12:32-0500 Heart rate 74 /min Giovani Edmonds MD Work Phone: [facility] 02-25-2023 12:32-0500 SaO2% (BldA) [Mass fraction] 97 % Giovani Edmonds MD Work Phone: [facility] Comment on above: RA 02-25-2023 12:32-0500 Systolic blood pressure 118 mm[Hg] Giovani Edmonds MD Work Phone: [facility] 01-26-2023 10:50-0400 Body height 161.1 cm Enmanuel Osuna MD Work Phone: [facility] 01-26-2023 10:50-0400 Body mass index (BMI) [Ratio] 31.25 kg/m2 Enmanuel Osuna MD Work Phone: [facility] 01-26-2023 10:50-0400 Body temperature 98.1 [degF] Enmanuel Osuan MD Work Phone: [facility] 01-26-2023 10:50-0400 Body weight 81.1 kg Enmanuel Osuna MD Work Phone: [facility] 01-26-2023 10:50-0400 Diastolic blood pressure 65 mm[Hg] Enmanuel Osuna MD Work Phone: [facility] 01-26-2023 10:50-0400 Heart rate 73 /min Enmanuel Osuna MD Work Phone: [facility] 01-26-2023 10:50-0400 Respiratory rate 20 /min Enmanuel Osuna MD Work Phone: [facility] 01-26-2023 10:50-0400 Systolic blood pressure 100 mm[Hg] Enmanuel Osuna MD Work Phone: [facility] 01-26-2023 09:51-0400 Body height 161.1 cm Zhou Lee MD Work Phone: [facility] 01-26-2023 09:51-0400 Body mass index (BMI) [Ratio] 31.25 kg/m2 Zhou Lee MD Work Phone: [facility] 01-26-2023 09:51-0400 Body weight 81.1 kg Zhou Lee MD Work Phone: [facility] 01-26-2023 09:51-0400 Respiratory rate 20 /min Zhou Lee MD Work Phone: [facility] 01-26-2023 08:15-0400 Body height 161.1 cm Ioana Otero MD Work Phone: [facility] 01-26-2023 08:15-0400 Body mass index (BMI) [Ratio] 31.25 kg/m2 Ioana Otero MD Work Phone: [facility] 01-26-2023 08:15-0400 Body temperature 98.2 [degF] Ioana Otero MD Work Phone: [facility] 01-26-2023 08:15-0400 Body weight 81.1 kg Ioana Otero MD Work Phone: [facility] 01-26-2023 08:15-0400 Diastolic blood pressure 77 mm[Hg] Ioana Otero MD Work Phone: [facility] 01-26-2023 08:15-0400 Heart rate 74 /min Ioana Otero MD Work Phone: [facility] 01-26-2023 08:15-0400 Systolic blood pressure 110 mm[Hg] Ioana Otero MD Work Phone: [facility] 12-26-2022 12:00-0400 Body weight 81.[address] [facility] 05-05-2022 11:04-0500 Body height 162 cm Zhou Lee MD Work Phone: [facility] Comment on above: prior reading 05-05-2022 11:04-0500 Body mass index (BMI) [Ratio] 31.09 kg/m2 Zhou Lee MD Work Phone: [facility] 05-05-2022 11:04-0500 Body weight 81.6 kg Zohu Lee MD Work Phone: [facility] 05-05-2022 11:04-0500 Heart rate 84 /min Zhou Lee MD Work Phone: [facility] 08-13-2021 18:15-0400 Diastolic blood pressure 76 mm[Hg] Jessie Lenz MD Work Phone: [facility] 08-13-2021 18:15-0400 Heart rate 86 /min Jessie Lenz MD Work Phone: [facility] 08-13-2021 18:15-0400 Systolic blood pressure 116 mm[Hg] Jessie Lenz MD Work Phone: [facility] 08-13-2021 16:15-0400 Body temperature 99.1 [degF] Jessie Lenz MD Work Phone: [facility] 08-13-2021 11:30-0400 Respiratory rate 16 /min Jessie Lenz MD Work Phone: [facility] 08-13-2021 11:30-0400 SaO2% (BldA) [Mass fraction] 99 % [facility] 08-13-2021 08:15-0400 Body height 164 cm Jessie Lenz MD Work Phone: [facility] 08-13-2021 08:15-0400 Body mass index (BMI) [Percentile] Per age and sex 95.01 % Jessie Lenz MD Work Phone: [facility] 08-13-2021 08:15-0400 Body mass index (BMI) [Ratio] 31.6 kg/m2 Jessie Lenz MD Work Phone: [facility] 08-13-2021 08:15 Body weight 85 kg Jessie Lenz MD Work Phone: [facility] Encounters Encounter Date Encounter Type Care Provider Facility Start: 08-31-2023 ambulatory ALFREDO L FLORO Not Kelly ilable Start: 08-24-2023 End: 08-24-2023 ambulatory ALFREDO L FLORO Not Available Start: 08-18-2023 End: 08-19-2023 ambulatory ALFREDO L FLORO Not Available Start: 08-12-2023 End: 08-12-2023 ambulatory DALLAS HANNON Not Available Start: 08-06-2023 End: 08-06-2023 Office consultation new/estab patient 80 min Velia Yo MD Work Phone: 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 STITCHER Work Phone: [facility] [place] Comment on above: Crohn's disease in r emission (Primary Dx) Start: 08-05-2023 End: 08-05-2023 ambulatory BLAZE RENTERIA Not Available Start: 08-03-2023 End: 08-04-2023 ambulatory ALFREDO L FLORO Not Available Start: 07-31-2023 End: 08-01-2023 ambulatory DALLAS HANNON Not Available Start: 07-29-2023 End: 07-29-2023 ambulatory BLAZE RENTERIA Not Available Start: 07-22-2023 End: 07-23-2023 ambulatory ALFREDO L FLORO Not Available Start: 07-03-2023 End: 07-04-2023 ambulatory [facility] Start: 07-02-2023 End: 07-03-2023 ambulatory XIOMARA ZURITA Not Available Start: 06-24-2023 End: 06-24-2023 ambulatory ALFREDO L FLORO Not Available Start: 06-16-2023 End: 06-17-2023 ambulatory ALFREDO L FLORO Not Available Start: 06-15-2023 End: 06-15-2023 ambulatory KATIE A HACKENBURG Not Available Start: 06-09-2023 End: 06-09-2023 ambulatory KATIE A HACKENBURG Not Available Start: 06-01-2023 End: 06-02-2023 Orders Only Marjorie Bautista RN [facility] Comment on above: Maternal Crohn's dis ease affecting in second trimester ([facility]) (Primary Dx); History of chronic ulcerative colitis Start: 05-29-2023 End: 05-30-2023 [facility] Start: 05-26-2023 End: 05-26-2023 Office outpatient visit 25 minutes Rubia Hernandez CONTRACT ANALYST Work Phone: [facility] Comment on above: Viral URI (Primary D x); 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); Immunodeficiency, unspecified (D84.9); 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); Crohns disease of both small and large intestine with unspecified complications (K50.819); Bilateral impacted cerumen Start: 05-26-2023 End: 05-27-2023 ambulatory RUBIA HERNANDEZ Not Available Start: 05-26-2023 Bamboo flowsheet Rubia Hernandez CONTRACT ANALYST Work Phone: [facility] Start: 05-26-2023 Bamboo flowsheet Rubia Hernandez CONTRACT ANALYST Work Phone: [facility] Start: 04-29-2023 ambulatory TERESA GERBER Facility:[facility] Start: 04-27-2023 End: 04-28-2023 ambulatory ALFREDO L FLORO Not Available Start: 04-24-2023 End: 04-25-2023 ambulatory ALFREDO ROSENDOO [facility] Start: 04-24-2023 End: 04-24-2023 Office outpatient new 45 minutes Ruchi Carmona MD Work Phone: [facility] Comment on above: Maternal Crohn's dis ease affecting in second trimester ([facility]) (Primary Dx); History of chronic ulcerative colitis; 19 weeks gestation of Start: 04-16-2023 Chart abstracting Scanning Pro vider External [facility] Start: 04-03-2023 ambulatory [facility] PR[facility] CARE PROVIDER Facility:[facility] Start: 04-03-2023 End: 04-03-2023 Clinical Support Encounter [facility] Comment on above: Crohn's disease of b oth small and large intestine with complication (Primary Dx) Start: 04-02-2023 Chart abstracting Scanning Pro vider External [facility] Start: 03-30-2023 End: 03-31-2023 ambulatory ALFREDO L FLORO Not Available Start: 03-19-2023 End: 03-19-2023 ambulatory KATIE ACEVES Not Available Start: 03-18-2023 End: 03-18-2023 ambulatory BLAZE RENTERIA Not Available Start: 03-16-2023 End: 03-16-2023 ambulatory BO STOKES Not Available Start: 03-11-2023 End: 03-11-2023 ambulatory ENEDINA BRINK Not Available Start: 03-09-2023 End: 03-09-2023 ambulatory ENEDINA BRINK Not Available Start: 03-04-2023 End: 03-05-2023 ambulatory ALFREDO L FLORO Not Available Start: 03-04-2023 End: 03-04-2023 ambulatory ENEDINA BRINK Not Available Start: 03-03-2023 Telephone encounter Alexx Slater MD Work Phone: [facility] [place] Comment on above: Case Discussion (Tra nsitioned to adult GI at [facility]) Start: 03-02-2023 End: 03-02-2023 ambulatory BO STOKES Not Available Start: 02-27-2023 End: 02-27-2023 ambulatory ENEDINA TAYLOR Not Available Start: 02-25-2023 ambulatory ALEXX Hess y:[facility] Start: 02-25-2023 End: 02-25-2023 Office consultation new/estab patient 80 min Giovani Edmonds MD Work Phone: [facility] [place] Comment on above: Crohn's disease of b oth small and large intestine with complication (Primary Dx); Orbital myositis, unspecified laterality; 11 weeks gestation of Start: 02-23-2023 End: 02-23-2023 ambulatory CHEY ARAGON Not Available Start: 02-05-2023 ambulatory [facility] OFF[facility] PRIMARY CARE PROVIDER Facility:[facility] Start: 01-26-2023 End: 01-27-[address] [facility] Start: 01-26-2023 End: 01-26-2023 Subsequent hospital visit by physician Enmanuel Osuna MD Work Phone: [facility] Comment on above: Iron deficiency Start: 01-26-2023 End: 01-26-[address] [facility] Start: 01-26-2023 End: 01-26-2023 Office outpatient visit 15 minutes Zhou Lee MD Work Phone: [facility] [place] Comment on above: Sinus Problem (F/u r ecurrent sinusitis) Start: 01-26-2023 End: 01-26-2023 Office outpatient visit 40 minutes Ioana Otero MD Work Phone: [facility] [place] Comment on above: FOLLOW-UP Start: 01-21-2023 Telephone encounter Ioana liz MD Work Phone: [facility] [place] Comment on above: Results Start: 01-20-2023 ambulatory MARTHA HATFIELD [facility] Start: 01-16-2023 ambulatory [facility] OFFICE PRIMARY CARE PROVIDER Facility:[facility] Start: 01-09-2023 Telephone encounter Alison Moore RN [facility] [place] Comment on above: Update Start: 01-05-[address] [facility] Start: 12-23-2022 Refill Alexx todd MD Work Phone: [facility] [place] Comment on above: Refill Request Start: 12-18-2022 ambulatory Yoana alba [facility] Start: 12-18-2022 Coordination of care plan Angella Head [facility] Comment on above: Primary Insurance: P rior Authorization Coordination for Gastroenterology Prior Authorization Start: 12-17-2022 Telephone encounter Connie Mac RN [facility] [place] Comment on above: Coordination Of Care (Rituximab) Start: 11-21-2022 Telephone encounter Alyssa Pierre sql ssis developer/Oncology Clinics Comment on above: Change Appointment Start: 09-24-2022 Telephone encounter Zhou peres MD Work Phone: ENT [facility] Comment on above: Schedule Surgery Start: 09-04-2022 Documentation procedure Manjeet Lee MD Work Phone: ENT [facility] Comment on above: Per [facility] Letter # 9, [facility] requested clinicals be sent. Clinicals sent Start: 07-16-2022 Documentation procedure Ginna Slater MD Work Phone: GI [facility] Comment on above: Faxed [facility] reapplica tion to [phone]. Scanned into the chart. Start: 05-05-2022 End: 05-06-[address] [facility] Start: 05-05-2022 ambulatory CHEY Waggoner [facility] Start: 05-05-2022 End: 05-05-2022 Postop follow up visit related to original px Zhou Lee MD Work Phone: ENT [facility] [place] Comment on above: Orbital myositis, un specified laterality (Primary Dx); Chronic sinusitis, unspecified location Start: 04-08-2022 Telephone encounter Brielle Teran RN [facility] [place] 6D Comment on above: Surgical Followup Start: 03-21-2022 End: 03-21-[address] [facility] Start: 03-20-2022 End: 03-20-[address] [facility] Start: 02-11-2022 ambulatory CHEY ARAGON [facility] Start: 02-06-2022 Telephone encounter Mitch Banuelos MD Work Phone: Surgery Clinic [facility] 6D Comment on above: Pre-certification Start: 02-04-2022 End: 02-04-[address] [facility] Start: 02-04-2022 End: 02-05-[address] [facility] Start: 11-19-2021 End: 11-19-[address] DOCTOR LIM Facility:[facility] Start: 08-13-2021 End: 08-13-2021 ambulatory JESSIE LENZ [facility] Start: 08-13-2021 End: 08-13-2021 Subsequent hospital visit by physician Jessie Lenz MD [facility] Phone: [address] Start: 07-09-2021 End: 07-10-2021 ambulatory SHAKIRA Ventura LAMBERTO [facility] Start: 07-09-2021 End: 07-09-2021 Subsequent hospital visit by physician Otilia Sinclair Work Phone: [facility] Start: 06-27-2021 End: 06-28-[address] DOCTOR LIM Facility:[facility] Start: 04-30-2021 End: 05-01-[address] DOCTOR LIM Facility:[facility] Procedures Date Procedure Procedure Detail Performing Clinician Start: 08-06-2023 Urnls dip stick/tabl et rgnt auto w/o microscopy Velia Yo MD Work Phone: Start: 05-26-2023 Removal impacted cer umen irrigation/lvg unilat Rubia Hernandez CONTRACT ANALYST Work Phone: Start: 03-04-2023 CHLAMYDIA/GC BY PCR ROLDAN SWAB Not In System Ref Prov Start: 02-25-2023 Antibody screen Scannin g External Start: 02-25-2023 HIV 1&2 AB/AG SCREEN (P24 AG) Not In System Ref Prov Start: 02-25-2023 Iaad ia hepatitis b surface antigen Not In System Ref Prov Start: 02-25-2023 Syphilis test non-treponemal antibody qual Not In System Ref Prov Start: 02-25-2023 TYPE AND SCREEN Not In System Ref Prov Start: 01-26-2023 Follow-up visit FOLLOW-UP Ioana watkins Start: 05-05-2022 Blood count hemoglobin MAGDALENA ROJAS Start: 03-20-2022 Blood count hemoglobin MAGDALENA ROJAS Start: 07-09-2021 Blood count complete auto&auto difrntl wbc Shakira Orantes MD Work Phone: Plan of Treatment Date Care Activity Detail Author Start: 06-01-2024 End: 06-01-2024 US MFM with or without consult US MFM with or without consult Imaging Routine Maternal Crohn's disease affecting in second trimester (CMS-HCC) History of chronic ulcerative colitis Expected: 06/01/2024 (Approximate), Expires: 06/01/2024 [facility] Work Phone: Comment on above: Expected: 06/01/2024 (Approximate), Expi res: 06/01/2024 Start: 04-24-2024 Tobacco Screening Tobacco Screening [facility] Start: 01-27-2024 IBD Iron Studies IBD Iron Studies [facility] Start: 12-13-2023 Influenza vaccination INFLUENZA VACCINE (Season Ended) [facility] Start: 10-22-2023 End: 10-22-2023 Telemedicine consultation with patient 10/22/2023 9:30 AM EDT Telemedicine [facility] [address] [place] [address] [place] [address] Christin Lopez, [employer]OVELTIES SALES REPRESENTATIVE-SADDLE AND SIDE WIRE STITCHER [address] [place] [address] [facility] [place] Start: 10-21-2023 DTaP,Tdap and Td Vaccines (7 - Td or Tdap) DTaP,Tdap and Td Vaccines (7 - Td or Tdap) [facility] Start: 10-21-2023 DTaP/Tdap/Td vaccine (7 - Td or Tdap) DTaP/Tdap/Td vaccine (7 - Td or Tdap) [facility] Start: 10-21-2023 DTaP/Tdap/Td VACCINES (7 - Td or Tdap) DTaP/Tdap/Td VACCINES (7 - Td or Tdap) [facility] Start: 10-21-2023 Tetanus vaccination TETANUS [facility] Start: 08-06-2023 End: 08-05-2024 CALPROTECTIN, STOOL CALPROTECTIN, STOOL Fluids Routine Crohn's disease in remission Expected: 08/06/2023, Expires: 08/05/2024 [facility] Comment on above: Expected: 08/06/2023, Expires: Start: 08-06-2023 End: 08-05-2024 US.doppler Lower extremity vein - left VASC DUPLEX VENOUS EXTREMITY LOWER LEFT Imaging STAT Left leg swelling Expected: 08/06/2023, Expires: 08/05/2024 [facility] Comment on above: Expected: 08/06/2023, Expires: 5 Start: 07-03-2023 End: 07-03-2023 Patient encounter procedure 07/03/2023 3:00 PM EDT Appointment [facility] [address] [place] [phone] [facility] Start: 06-01-2023 End: 06-01-2023 Patient encounter procedure 06/01/2023 6:30 PM EST Routine [facility] [address] [place] [address] Alfredo Duong, CNM [address] [place] [address] [facility] Start: 05-29-2023 End: 05-29-2023 Patient encounter procedure 05/29/2023 2:45 PM EST Appointment [facility] [address] [place] [address] [facility] Start: 05-26-2023 End: 05-26-2023 Patient encounter procedure 05/26/2023 7:30 PM EST Office Visit [facility] [address] [place] [phone] Rubia Hernandez NP [address] [place], [place] [phone] Arrived [facility] Comment on above: Arrived Start: 04-29-2023 End: 04-29-2023 Patient encounter procedure 04/29/2023 10:00 AM EST [facility] [address] [place] [address] [place] [address] Teresa Gerber, [employer]EL[employer] SALES REPRESENTATIVE-SADDLE AND SIDE WIRE STITCHER [address] [place] [address] Inflammatory Bowel Disease [facility] Start: 04-24-2023 End: 04-24-2023 Patient encounter procedure [facility] Start: 04-03-2023 End: 04-03-2023 Clinical Support Encounter 04/03/2023 11:00 AM EST Clinical Support Encounter Inflammatory Bowel Disease [address] [place] [address] Inflammatory Bowel Disease [facility] Start: 03-20-2023 IBD Iron Studies IBD Iron Studies [facility] Start: 02-25-2023 End: 02-26-2024 CALPROTECTIN, STOOL CALPROTECTIN, STOOL Fluids Routine Crohn's disease of both small and large intestine with complication Expected: 02/25/2023, Expires: 02/26/2024 [facility] Comment on above: Expected: 02/25/2023, Expires: 4 Start: 02-25-2023 End: 02-26-2024 HEP A AB, TOTAL (IGG+IGM) HEP A AB, TOTAL (IGG+IGM) Lab Routine Crohn's disease of both small and large intestine with complication Expected: 02/25/2023, Expires: 02/26/2024 [facility] Comment on above: Expected: 02/25/2023, Expires: 4 Start: 02-25-2023 End: 02-26-2024 M TUBERCULOSIS BY QUANTIFERON, BLD [facility] Comment on above: Expected: 02/25/2023, Expires: Start: 02-25-2023 End: 02-26-2024 THIOPURINE METHYL-TRANSFERASE [facility] Comment on above: Expected: 02/25/2023, Expires: 4 Start: 02-25-2023 End: 02-26-2024 ZINC, SERUM [facility] Comment on above: Expected: 02/25/2023, Expires: 4 Start: 02-18-2023 ambulatory Ambulatory [facility] Start: 02-18-2023 End: 02-18-2023 Patient encounter procedure [facility] [place] Start: 01-26-2023 End: 01-27-2024 Ferritin [Mass/volume] in Serum or Plasma [facility] Comment on above: One Time for 1 Occurrences starting 01/11 until 01/26/2023 Expected: 01/26/2023 (Approximate), Expires: 01/27/2024 Start: 01-26-2023 End: 01-26-2023 Patient encounter procedure [facility] [place] Start: 01-20-2023 End: 01-20-2023 Patient encounter procedure 01/20/2023 1:00 PM EDT Appointment [facility]ematology[facility]cology Clinics [address] [place], [place] [address]Jenny [address] [place] [phone] Martha Hatfield MD [address] [place] [address] [facility] Clin[facility] Start: 01-14-2023 IBD TDM Annual Screening Ustekinumab IBD TDM Annual Screening Ustekinumab [facility] Start: 01-05-2023 End: 01-05-2023 Admission to same day surgery center Perioperative Services Comment on above: ETHMOID SINUS SURGERY bilateral Start: 01-05-2023 End: 01-05-2023 Nasal/sinus ndsc w/partial ethmoidectomy [facility] [place] Start: 01-05-2023 End: 01-05-2023 Nsl/sinus ndsc max antrost w/rmvl tiss max sinus [facility] [place] Start: 01-05-2023 End: 01-05-2023 Strtctc cptr asstd px cranial intradural [facility] [place] Start: 01-05-2023 Subsequent hospital visit by physician Perioperative Services Start: 01-05-2023 End: 01-05-2023 Patient encounter procedure 01/05/2023 10:00 AM EDT Appointment [address] [address] Discharge Disposition: Home [facility] Start: 12-24-2022 IBD on Biologics/Immunomodulato rs Quantiferon IBD on Biologics/Immunomodulato rs Quantiferon [facility] Start: 12-12-2022 COVID-19 Vaccine ( season) COVID-19 Vaccine ( season) [facility] Start: 12-12-2022 Influenza vaccination [facility] Start: 2022 Screening for malignant neoplasm of cervix [facility] Start: 11-02-2022 IBD 25-OH Vitamin D IBD 25-OH Vitamin D [facility] Start: 09-18-2022 IBD 25-OH Vitamin D IBD 25-OH Vitamin D [facility] Start: 09-03-2022 IBD Annual Visit IBD Annual Visit [facility] Start: 07-25-2022 End: 07-25-2022 Patient encounter procedure 07/25/2022 Appointment Rheumatology [facility] Start: 07-25-2022 End: 07-25-2022 Patient encounter procedure 07/25/2022 Appointment Gastroenterology Alexx Slater MD [address] [place] [address] [facility] Start: 06-09-2022 IBD Calprotectin IBD Calprotectin [facility] Start: 05-24-2022 IBD Surveillence Colonscopy 8 years after diagnosis IBD Surveillence Colonscopy [address] [facility] Start: 05-06-2022 IBD TDM Post Induction Ustekinumab IBD TDM Post Induction Ustekinumab [facility] Start: 05-05-2022 End: 05-05-2022 Patient encounter procedure 05/05/2022 Appointment Ent-Otolaryngology Zhou Lee MD Otolaryngology Section [address] [place] [id number] [facility] [place] Start: 12-12-2021 Influenza vaccination INFLUENZA VACCINE (#1) [facility] Start: 04-18-2021 COVID-19 Vaccine (2 - Misael risk 3-dose series) COVID-19 Vaccine (2 - Misael risk 3-dose series) [facility] Start: 04-18-2021 COVID-19 Vaccine (2 - Misael risk series) COVID-19 Vaccine (2 - Misael risk series) [facility] Start: 12-12-2020 Influenza vaccination Flu vaccine (#1) [facility] Start: 2020 DTaP,Tdap and Td Vaccines (1 - Tdap) DTaP,Tdap and Td Vaccines (1 - Tdap) [facility] Start: 2020 DTaP/Tdap/Td vaccine (1 - Tdap) DTaP/Tdap/Td vaccine (1 - Tdap) [facility] Start: 2020 Zoster vaccine hzv live for subcutaneous use ZOSTER (SHINGLES) VACCINE (1 of 2) [facility] Start: 11-04-2019 Adult BMI Screening Adult BMI Screening [facility] Start: 11-04-2019 Hepatitis C screening Hepatitis C screen [facility] Start: 12-18-2017 Varicella vaccine (2 of 2 - 2-dose childhood series) Varicella vaccine (2 of 2 - 2-dose childhood series) [facility] Start: 12-18-2017 VARICELLA VACCINES (2 of 2 - 2-dose childhood series) VARICELLA VACCINES (2 of 2 - 2-dose childhood series) [facility] Start: 2017 MENB (1 of 2 - Patient Seeks Protection) MENB (1 of 2 - Patient Seeks Protection) [facility] Start: 2017 Screening for Chlamydia trachomatis Chlamydia screen [facility] Start: 2016 HIV screening [facility] Start: 2016 Vaccination for human papillomavirus HPV VACCINE ADOL (1 - 3-dose series) [facility] Start: 11-04-2015 Gastroenterology Transition Assessment Gastroenterology Transition Assessment [facility] Start: 11-04-2015 Hemonc Transition Assessment Hemonc Transition Assessment [facility] Start: 11-04-2015 Rheumatology Transition Assessment Rheumatology Transition Assessment [facility] Start: 2013 Depression Screen Depression Screen [facility] Start: 2013 Depression Screening Depression Screening [facility] Start: 2013 Tobacco Screening Tobacco Screening [facility] Start: 2012 HPV vaccine (1 - 2-dose series) HPV vaccine (1 - 2-dose series) [facility] Start: 2012 Vaccination for human papillomavirus HPV VACCINE ADOL (1 - 2-dose series) [facility] Start: 11-04-2011 MENB (1 of 2 - Risk Bexsero 2-dose series) MENB (1 of 2 - Risk Bexsero 2-dose series) [facility] Start: 2010 HPV VACCINES (1 - 2-dose series) HPV VACCINES (1 - 2-dose series) [facility] Start: 11-04-2007 Pneumococcal 0-64 years Vaccine (1 - PCV) Pneumococcal 0-64 years Vaccine (1 - PCV) [facility] Start: 11-04-2007 Pneumococcal vaccination PNEUMOCOCCAL VACCINE (1 - PCV) [facility] Start: 11-04-2007 PNEUMOCOCCAL VACCINE SERIES (1 - PCV) PNEUMOCOCCAL VACCINE SERIES (1 - PCV) [facility] Start: 11-04-2007 PNEUMOCOCCAL VACCINE SERIES (1 of 2 - PCV) PNEUMOCOCCAL VACCINE SERIES (1 of 2 - PCV) [facility] Start: 2006 COVID-19 Vaccine (1) COVID-19 Vaccine (1) [facility] Start: 2002 Dental Hygiene (Due every 6 months) Dental Hygiene (Due every 6 months) [facility] Start: 2002 Varicella vaccine (1 of 2 - 2-dose childhood series) Varicella vaccine (1 of 2 - 2-dose childhood series) [facility] Start: 2001 Dental Oral Exam Dental Oral Exam [facility] Start: 2001 Hepatitis C screening Hepatitis C screen [facility] Start: 2001 Screening for Chlamydia trachomatis GONORRHEA SCREEN [facility] End: 07-09-2021 [facility]ro[facility]ody [facility] Comment on above: Once for 1 Occurrences starting 07/10/19 until 07/09/2021 End: 01-26-2023 CBC W/AUTOMATED DIFF, REFLEX TO MANUAL CBC W/AUTOMATED DIFF, REFLEX TO MANUAL Lab Routine Iron deficiency One Time for 1 Occurrences starting 01/26/2023 until 01/26/2023 [facility] Work Phone: Comment on above: One Time for 1 Occurrences starting 01/11 until 01/26/2023 Excision excessive s kin & subq tissue other area EXCISION, SKIN AND SUBCUTANEOUS TISSUE Sebaceous cyst [facility] [place] End: 07-09-2021 Immunofixation serum profile [facility]: Comment on above: Once for 1 Occurrences starting 07/10/19 until 07/09/2021 End: 07-09-2021 Immunoglobulin G Subclasses [facility]: Comment on above: Once for 1 Occurrences starting 07/10/19 until 07/09/2021 End: 07-09-2021 Lymphocyte Subset [facility]: Comment on above: Once for 1 Occurrences starting 07/10/19 until 07/09/2021 Nasal/sinus ndsc w/partial ethmoidectomy ENDOSCOPY, NOSE, WITH ETHMOIDECTOMY Chronic sinusitis, unspecified location [facility] [place] Nsl/sinus ndsc max antrost w/rmvl tiss max sinus MAXILLARY ANTROSTOMY, WITH TISSUE REMOVAL Chronic sinusitis, unspecified location [facility] [place] End: 07-09-2021 Strep Pneumoniae Antibody Serotypes [facility] Work Phone: Comment on above: Once for 1 Occurrences starting 07/10/19 22 until 07/09/2021 Immunizations Immunization Date Immunization Notes Care Provider Josi perez 08-11-2022 hepatitis B vaccine, adult dosage Rubia Kampfer CONTRACT ANALYST Work Phone: [facility] 06-26-2022 hepatitis B vaccine, adult dosage Rubia Kampfer CONTRACT ANALYST Work Phone: [facility] 05-13-2022 tuberculin skin test ; purified protein derivative solution, intradermal Rubia Kampfer CONTRACT ANALYST Work Phone: [facility] 04-30-2022 tuberculin skin test ; purified protein derivative solution, intradermal Rubia Kampfer CONTRACT ANALYST Work Phone: [facility] 02-19-2022 influenza, injectabl e, quadrivalent, preservative free Rubia Kampfer CONTRACT ANALYST Work Phone: [facility] 02-19-2022 influenza virus vacc ine, unspecified formulation Zhou Lee MD Work Phone: [facility] 02-15-2021 influenza, injectabl e, quadrivalent, preservative free Brielle Teran RN [facility] 02-15-2021 influenza, seasonal, injectable, preservative free Brielle Teran RN [facility] 02-15-2021 influenza virus vacc ine, unspecified formulation Brielle Teran RN [facility] 02-29-2020 influenza, injectabl e, quadrivalent, preservative free Rubia Kampfer CONTRACT ANALYST Work Phone: [facility] 02-21-2020 influenza, injectabl e, quadrivalent, preservative free Brielle Teran RN [facility] 04-29-2019 influenza, injectabl e, quadrivalent, preservative free Brielle Teran RN [facility] 10-25-2018 meningococcal oligosaccharide (groups A, C, Y and W-135) diphtheria toxoid conjugate vaccine (MCV4O) Brielle Teran RN [facility] 01-08-2018 influenza, injectabl e, quadrivalent, preservative free Brielle Teran RN [facility] 01-08-2018 influenza, seasonal, injectable, preservative free Rubia Finneypjudah CONTRACT ANALYST Work Phone: [facility] 11-20-2017 influenza virus vacc ine, live, attenuated, for intranasal use Brielle Teran RN [facility] 11-20-2017 influenza, live, intranasal, quadrivalent Rubia Hernandez CONTRACT ANALYST Work Phone: [facility] 02-04-2016 influenza, seasonal, injectable, preservative free Brielle Teran RN [facility] 06-11-2014 tuberculin skin test ; purified protein derivative solution, intradermal Otiliahuang Sinclair Work Phone: [facility] 03-26-2014 influenza, seasonal, injectable, preservative free Brielle Teran RN [facility] 03-17-2014 influenza, seasonal, injectable, preservative free Rubia Hernandez CONTRACT ANALYST Work Phone: [facility] 10-20-2013 meningococcal polysaccharide (groups A, C, Y and W-135) diphtheria toxoid conjugate vaccine (MCV4P) Brielle Teran RN [facility] 10-20-2013 tetanus toxoid, redu rubina diphtheria toxoid, and acellular pertussis vaccine, adsorbed Brielle Teran RN [facility] 05-05-2013 influenza, injectabl e, quadrivalent, preservative free Brielle Teran RN [facility] 12-08-2006 diphtheria, tetanus toxoids and acellular pertussis vaccine Brielle Teran RN [facility] 12-08-2006 measles, mumps and rubella virus vaccine Brielle Teran RN [facility] 12-08-2006 poliovirus vaccine, inactivated Brielle Teran RN [facility] 01-17-2005 influenza, seasonal, injectable Brielle Teran RN [facility] 03-14-2003 influenza virus vacc ine, whole virus Rubia Hernandez CONTRACT ANALYST Work Phone: [facility] 03-14-2003 influenza, seasonal, injectable, preservative free Brielle Teran RN [facility] 03-14-2003 pneumococcal conjuga te vaccine, 7 valent Brielle Teran RN [facility] 02-10-2003 diphtheria, tetanus toxoids and pertussis vaccine Brielle Teran RN [facility] 02-10-2003 DTP Brielle Teran RN [facility] 02-10-2003 haemophilus influenz ae type b vaccine, PRP-T conjugate Brielle Teran RN [facility] 02-10-2003 influenza virus vacc ine, whole virus Rubia Hernandez CONTRACT ANALYST Work Phone: [facility] 02-10-2003 influenza, seasonal, injectable, preservative free Brielle Teran RN [facility] 02-10-2003 pneumococcal conjuga te vaccine, 7 valent Brielle Teran RN [facility] 11-07-2002 measles, mumps and rubella virus vaccine Brielle Teran RN [facility] 11-07-2002 varicella virus vaccine Brielle gilbert RN [facility] 11-07-2002 zoster vaccine, unspecified formulation Giovani Edmonds MD Work Phone: [facility] 06-01-2002 diphtheria, tetanus toxoids and acellular pertussis vaccine Brielle Teran RN [facility] 06-01-2002 haemophilus influenz ae type b conjugate and Hepatitis B vaccine Brielle Teran RN [facility] 06-01-2002 pneumococcal conjuga te vaccine, 7 valent Brielle Teran RN [facility] 06-01-2002 poliovirus vaccine, inactivated Brielle Teran RN [facility] 03-08-2002 diphtheria, tetanus toxoids and acellular pertussis vaccine Brielle Teran RN [facility] 03-08-2002 haemophilus influenz ae type b vaccine, PRP-T conjugate Brielle Teran RN [facility] 03-08-2002 pneumococcal conjuga te vaccine, 7 valent Brielle Teran RN [facility] 03-08-2002 poliovirus vaccine, inactivated Brielle Teran RN [facility] 01-04-2002 diphtheria, tetanus toxoids and acellular pertussis vaccine Brielle Teran RN [facility] 01-04-2002 haemophilus influenz ae type b vaccine, PRP-T conjugate Brielle Teran RN [facility] 01-04-2002 hepatitis B vaccine, pediatric or pediatric/adolescent dosage Brielle Teran RN [facility] 01-04-2002 poliovirus vaccine, inactivated Brielle Teran RN [facility] 2001 hepatitis B vaccine, pediatric or pediatric/adolescent dosage Brielle Teran RN [facility] Payers Date Payer Category Payer Private Health Insurance [employer] [id number] 2023-Present [address] [place] [address] [id number] 2023 Medicaid [id number] 2013 Unknown [id number] 2001 Unknown [id number] 76 2001 Unknown [id number] 2.16.840.1.034282.3.579.2.1 75 2001 Unknown [id number] 2.16.840.1.452815.3.579.2.5 93 2001 Unknown [id number] 2.16.840.1.348198.3.579.2.5 93 2001 Unknown [id number] 2.16.840.1.282579.3.579.2.5 93 2001 Unknown [id number] 2.16.840.1.599588.3.579.2.4 30 2001 Unknown [id number] 2.16.840.1.351400.3.579.2.4 2001 Unknown [id number] 2.16.840.1.912476.3.579.2.4 2001 Unknown [id number] 2.16.840.1.660021.3.579.2.4 2001 Unknown [id number] 2.16.840.1.041179.3.579.2.4 2001 Unknown [id number] 2.16.840.1.732590.3.579.2.4 2001 Unknown [id number] 2.16.840.1.512523.3.579.2.4 2001 Unknown [id number] 2.16840.1.131906.3.579.2.4 2001 Unknown [id number] 2.16840.1.085658.3.579.2.4 2001 Unknown [id number] 2.16840.1.741818.3.579.2.4 2001 Unknown [id number] 2.16840.1.392920.3.579.2.4 2001 Unknown [id number] 2.16.840.1.441623.3.579.2.4 2001 Unknown [id number] 2.16840.1.796827.3.579.2.4 2001 Unknown [id number] 2.16840.1.155017.3.579.2.4 2001 Unknown [id number] 2.16840.1.300513.3.579.2.4 2001 Unknown [id number] 2.16840.1.971222.3.579.2.4 2001 Unknown [id number] 2.16840.1.669736.3.579.2.4 2001 Unknown [id number] 2.16.840.1.706478.3.579.2.4 30 2001 Unknown [id number] 2.16.840.1.324747.3.579.2.4 30 2001 Unknown [id number] 2.16.840.1.106291.3.579.2.4 30 2001 Unknown [id number] 2.16.840.1.402384.3.579.2.1 286 2001 Unknown [id number] 2.16.840.1.888451.3.579.2.1 286 2001 Unknown [id number] 2.16.840.1.893314.3.579.2.1 286 2001 Unknown [id number] 2.16.840.1.366368.3.579.2.1 286 2001 Unknown [id number] 2.16.840.1.191915.3.579.2.5 94 2001 Unknown [id number] 2.16.840.1.133148.3.579.2.5 94 2001 Unknown [id number] 2.16.840.1.739265.3.579.2.5 94 2001 Unknown [id number] 2.16.840.1.194524.3.579.2.5 94 2001 Unknown [id number] 2.16.840.1.085007.3.579.2.5 94 2001 Unknown [id number] 2.16.840.1.566621.3.579.2.5 94 2001 Unknown [id number] 2.16.840.1.841221.3.579.2.5 94 2001 Unknown [id number] 2.16.840.1.081753.3.579.2.5 94 2001 Unknown [id number] 2.16.840.1.372560.3.579.2.1 259 2001 Unknown [id number] 2.16.840.1.648006.3.579.2.1 259 2001 Unknown [id number] 2.16.840.1.152701.3.579.2.1 259 2001 Unknown [id number] 2.16.840.1.066495.3.579.2.1 259 2001 Unknown [id number] 2.16.840.1.622710.3.579.2.1 259 2001 Unknown [id number] 2.16.840.1.717723.3.579.2.1 259 2001 Unknown [id number] 2.16.840.1.812834.3.579.2.1 259 2001 Unknown [id number] 2.16.840.1.133285.3.579.2.1 259 2001 Unknown [id number] 2.16.840.1.861777.3.579.2.1 259 2001 Unknown [id number] 2.16.840.1.811420.3.579.2.1 259 2001 Unknown [id number] 2.16.840.1.083675.3.579.2.1 259 2001 Unknown [id number] 2.16.840.1.521511.3.579.2.1 259 2001 Unknown [id number] 2.16.840.1.808803.3.579.2.1 259 2001 Unknown [id number] 2.16.840.1.844149.3.579.2.1 259 2001 Unknown [id number] 2.16.840.1.496168.3.579.2.1 259 2001 Unknown [id number] 2.16.840.1.782382.3.579.2.1 259 2001 Unknown [id number] 2.16.840.1.296314.3.579.2.1 259 2001 Unknown [id number] 2.16.840.1.820007.3.579.2.1 259 2001 Unknown [id number] 2.16.840.1.425709.3.579.2.1 259 2001 Unknown [id number] 2.16.840.1.119629.3.579.2.1 259 2001 Unknown [id number] 2.16.840.1.075585.3.579.2.1 259 2001 Unknown [id number] 2.16.840.1.093142.3.579.2.1 259 2001 Unknown [id number] 2.16.840.1.340816.3.579.2.1 259 2001 Unknown [id number] 2.16.840.1.209200.3.579.2.1 259 2001 Unknown [id number] 2.16.840.1.341056.3.579.2.1 259 2001 Unknown [id number] 2.16.840.1.098302.3.579.2.1 259 2001 Unknown [id number] 2.16.840.1.662248.3.579.2.1 259 2001 Unknown [id number] 2.16.840.1.926086.3.579.2.1 259 2001 Unknown [id number] 2.16.840.1.694474.3.579.2.1 259 2001 Unknown [id number] 2.16.840.1.642573.3.579.2.1 259 1959 Unknown [id number] 1.2.840.818815.1.13.239.2.7 .3.903279.315 1959 Unknown [id number] 1.2.840.838828.1.13.239.2.7 .3.654233.315 Social History Date Type Detail Facility Start: 09-11-2011 End: 02-25-2023 Tobacco smoking status NHIS Never smoked tobacco [facility]: Start: 07-26-2014 Alcohol intake 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 Start: 03-21-2022 End: 09-01-2023 Alcohol intake Ex-drinker (finding) [facility] Start: 03-21-2022 End: 09-01-2023 Alcohol intake [facility] Start: 08-26-2021 History SDOH Financial 5 [facility] Start: 08-26-2021 History SDOH Food Worry 1 [facility] Start: 08-26-2021 History SDOH Transport Med 2 [facility] Start: 05-17-2016 End: 09-01-2023 Tobacco use panel [facility] How hard is it for you to pay for the very basics like food, housing, medical care, and heating Not hard at all [facility] (I/We) worried whether (my/our) food would run out before (I/we) got money to buy more. Never true [facility] In the past 12 months, was there a time when you were not able to pay the mortgage or rent on time? No [facility] Start: 12-22-2022 [facility] Are you now , , , , never or living with a partner? Living with partner [facility] How often to you hav e a drink containing alcohol? Never [facility] Do you feel stress - tense, restless, nervous, or anxious, or unable to sleep at night because your mind is troubled all the time - these days [OSQ] Not at all [facility] Start: 03-19-2023 Alcohol Comment caffeine intak e : coffee [facility] Start: 05-26-2023 Alcohol Comment caffeine intake : NO [facility] NEGATED: Highlighted rowStart: NINF History of tobacco use Passive smoker [facility] Medical Equipment Procedure Code Equipment Code Equipment Origin al Text Equipment Identifier Dates [employer] [id number] Start: 07-23-2015 Comment on above: Description: Teresa Richmond Ss Ta 90-3.5 - [id number] Start: 03-21-2016 [employer] 5ml - [id number] Start: 06-11-2018 Comment on above: Description: Sinus Clinical Notes 08-06-2021 to 08-06-2023 Maty Knight - 08/06/2023 12:00 PM EDTSlinh Yo MD - 08/06/2023 12:00 PM EDTPatient InstructionsTeresa Gerber APRN-ALEXANDR - 08/06/2023 10:00 AM EDTPatient InstructionsPatient Instructions Note Date & Type Note Facility 08-06-2023 History of Present illness Narrative Patient verified Name, , medication and Pharmacy for this Nurse. Reason for Evaluation: Kings Hatfield is seen in consultation at the request of Dr. 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 Transfer summary not provided. Chart review performed (40 minutes) HPI: Kings Hatfield is a 22 y.o. female who presents for evaluation of problems listed above. She follows with Dr. Otero who last saw her in January. She is currently 36 weeks . Disease course and treatment Crohn's Disease - diagnosed at [facility] 2011. Therapy has included 6MP, infliximab, stopped due to severe scalp psoriasis), vedolizumab, ustekinumab, adalimumab. She underwent ileocecal resection in 03/2016. Most recent colonoscopy was in 2019. 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 See imaging and biopsy results below. Therapy has included methylprednisolone pulses, methotrexate [id number] (with interruptions; stopped due to inefficacy and frequent infections), rituximab x 2 11/2016, 11/2017, 12/2018, 01/2020, 01/2021, 12/2021. Difficult course with multiple admissions for management of this problem. Psoriasis - diagnosed at [facility] - developed psoriasis of scalp while taking infliximab Hidradenitis suppurativa - diagnosed at [facility]; primarily treated with topical therapies. Pulmonary nodules - scattered small nodules; bronchoscopy and BAL did not identify infectious etiology. Other problems: frequent sinusitis (multiple sinus surgeries), rituximab-induced hypogammaglobulinemia Recent history Kings is 36 wks with estimated delivery date of 08/31/2023. Her has not been complicated. There are plans for due to her prior intestinal surgery. She has been maintained on ustekinumab during . She is feeling well with no concerns for orbital inflammation - she denies eye pain, diplopia, ptosis, pain with EOM. She reports that her last flare was in 2020. She denies any symptoms related to her Crohn's disease - no abdominal pain, vomiting, blood in stool or abnormal bowel movements. She reports that her last Crohn's flare was in 2021. She's not recently had problems with psoriatic skin lesions or with hidradenitis lesions. She had a perforated tympanic membrane in 06/2023 for which she saw ENT provider. She's not had other problems with infection. 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 Most recent IgG level available to me was 511 on 01/28/2022. For the past few days, she's felt that her left leg is a little more swollen than the right. The leg feels tight but is not painful. Current providers: [facility]TER ATTENDANT: Alfredo Duong CNM MFM: Dr. Ruchi Carmona Pulmonary: Dr. Xiomara Zurita IBD: Teresa Peterson ENT: Dr. Lee at [facility] Ophtho: need to confirm Does not have primary care provider Past Medical History: Diagnosis Date Crohn's colitis Orbital myositis of both sides Pulmonary nodules Outpatient Medications Prior to Visit Medication Sig Dispense Refill Acetaminophen 325 MG tablet Take 2 tablets by mouth Every 6 hours as needed. Vit-Fe Fumarate-FA ( PO) Take by mouth. riTUXimab 100 MG/10ML chemo injection as directed Intravenous Ustekinumab 90 MG/ML Solution Prefilled Syringe injection Inject 1 mL under the skin every 56 days. No facility-administered medications prior to visit. The patient reports that she is allergic to cefdinir, sulfamethoxazole-trimethoprim, infliximab, pentamidine, and vancomycin. The family history includes Hypertension in her father; Stroke in her mother. Social History: Review of Systems Constitutional: No fevers, chills, sweats, weight gain or loss. ENT: No photophobia or red eye. No dry eyes or dry mouth. No current sores in mouth or nose. GI: No nausea, vomiting, diarrhea, melena, hematochezia, dysphagia, persistent heartburn. Cardiovascular: No chest pain, palpitations, change in exercise tolerance. No history of blood clots. Pulmonary: No cough, wheezing, pleurisy Neuro: No chronic headaches, focal weakness, persistent paresthesias Musculoskeletal: no problems with arthritis with her IBD. She has mild back discomfort with . Sleep: No problems with sleep latency, early awakening, snoring. Exercise: Does not engage in regular aerobic exercise. : No dysuria or blood in urine. No urethral discharge. Physical Exam BP 102/76 (BP Location: Left arm, BP Position: Sitting) Pulse 101 Ht 1.6 m (5' 3 ) Wt 97.1 kg (214 lb) SpO2 98% BMI 37.91 kg/m Smoking Status Never General appearance: Alert, cooperative, appears stated age Eyes: Conjunctivae clear, EOMI, no lacrimal gland enlargement ENMT: Sinuses not tender, nasal and oral cavity normal, no parotid gland enlargement Lymph nodes: No enlargement of cervical, supraclavicular, axillary or inguinal lymph nodes Lungs: Clear to auscultation bilaterally Heart: Regular rate and rhythm, no murmur, gallop or rub. Normal peripheral pulses. Abdomen: Soft, not distended, not tender, no organomegaly Skin:No rash, alopecia, nail abnormalities, periungual capillary abnormalities Muscle: 5/5 strength bilateral cervical flexors and extensors, deltoids, biceps, triceps, distal UE, hip flexors and extensors, distal LE Extremities: slight fullness left leg mid calf distally; no pitting edema or tenderness with palpation Neuro: Balance normal. Cranial nerve motions normal. Gait: Normal. Back/Spine: No scoliosis. No point tenderness. Musculoskeletal: Axial: Normal ROM cervical spine, TMJs Upper extremities: Normal ROM shoulders, unremarkable exam of both elbows, wrists without effusions and normal ROM, MCPs, PIPs, DIPs without effusions Lower extremities: Normal ROM hips, knees with normal ROM and no effusions, ankles with normal ROM and no effusions. No synovitis of feet. Enthesitis: None. Psychiatric: Normal affect, speech, thought processes Review of Data: Lab Encounter on 08/06/2023 Component Date Value Ref Range Status Sodium 08/06/2023 138 135 - 145 mmol/L Final Potassium 08/06/2023 3.8 3.5 - 5.0 mmol/L Final Chloride 08/06/2023 107 98 - 108 mmol/L Final BUN 08/06/2023 4 (L) 7 - 25 mg/dL Final Creatinine 08/06/2023 0.45 (L) 0.50 - 1.20 mg/dL Final Glucose 08/06/2023 78 70 - 99 mg/dL Final Bilirubin Total 08/06/2023 0.4 <1.5 mg/dL Final Albumin 08/06/2023 3.2 (L) 3.5 - 5.0 g/dL Final Total Protein 08/06/2023 5.4 (L) 6.4 - 8.3 g/dL Final AST 08/06/2023 11 10 - 39 U/L Final ALP 08/06/2023 91 32 - 126 U/L Final Calcium 08/06/2023 8.6 8.6 - 10.5 mg/dL Final CO2 08/06/2023 23 21 - 31 mmol/L Final ALT 08/06/2023 6 (L) 9 - 48 U/L Final Bun/Crea Ratio 08/06/2023 9 Final Osmolality (Calculated) 08/06/2023 284 278 - 305 mOsm/kg Final Anion Gap 08/06/2023 12 7 - 17 mmol/L Final eGFR, CKD-EPI, Female 08/06/2023 >90 >=60 mL/min/1.73m2 Final Reported eGFR is based on the CKD-EPI 2020 equation using creatinine, age, and sex. WBC Count 08/06/2023 11.95 (H) 3.99 - 11.19 K/uL Final RBC Count 08/06/2023 3.41 (L) 3.91 - 5.04 M/uL Final Hemoglobin 08/06/2023 9.3 (L) 11.4 - 15.2 g/dL Final Hematocrit 08/06/2023 29.1 (L) 34.9 - 44.3 % Final Mean Cell Volume 08/06/2023 85.3 79.6 - 97.7 fL Final Mean Cell Hgb 08/06/2023 27.3 25.9 - 33.9 pg Final Mean Cell Hgb Conc 08/06/2023 32.0 31.4 - 35.9 g/dL Final RBC Distribution 08/06/2023 13.2 10.8 - 14.9 % Final Platelet Count 08/06/2023 206 150 - 393 K/uL Final Mean Platelet Volume 08/06/2023 10.2 8.5 - 12.2 fL Final C Reactive Protein 08/06/2023 5.36 <10.00 mg/L Final Previous labs: KALA 1:320 08/07/14; normal/negative C3, C4, anticardiolipin antibodies, crithidia, ENAs ANCA negative 08/07/14 Biopsies: SURGICAL PATHOLOGY REPORT Date Taken: 08/02/2014 Date Reported: 08/04/2014 Specimen(s) Received Left Lacrimal gland Diagnosis TISSUE FROM LEFT LACRIMAL GLAND, BIOPSY: - FIBROCONNECTIVE TISSUE, GLAND ACINI AND NEUROVASCULAR BUNDLES - NO EVIDENCE OF INFLAMMATION, NECROSIS, GRANULOMA OR VIRAL INCLUSIONS Sections studied show neurovascular bundles, smooth muscle and an island of glanular acinar tissue. There is no acute inflammation, no chronic inflammation and no necrosis, and no viral inclusions seen. IMAGING MRI orbits 07/31/2014 ([facility]): TECHNICAL COMMENTS Contrast Type: Optiray 320 Contrast amount in ml's: 100ml REASON FOR EXAM: PAIN - 13 y/o F w/ h/o crohn's, 2 week history of periorbital cellulitis progressing fever/pain with extra occular movements despite IV antibiotics. Need to evaluate for orbital involvement. PROCEDURE: CT Orbits Contrast COMPARISON: CT brain with contrast 07/31/2014. TECHNIQUE: Volumetric CT acquisition of the orbits. Images were reconstructed in the axial, coronal, and sagittal planes. Contrast: 100 milliliters of Optiray-320. Sedation: None. FINDINGS: BONES: Normal. No facial bone fracture. No orbital fracture. No nasal bone fracture. No mandibular fracture. The mandibular condyles are well-seated in their respective glenoids. ORBITS: There is increased density of the left periorbital fat in both preseptal and post-septal distributions. There is asymmetric enlargement of the left extraocular muscles with increased enhancement of the muscle belly is noted. This is best seen on supervisor nut processing CT of the brain as the contrast is in the arterial phase on the CT brain. The medial and lateral rectus muscles are affected greatest degree. There is a focal ellipsoid low-attenuation collection with peripheral rim enhancement noted associated with the anterior margin of the left lateral rectus muscle concerning for a small intramuscular abscess. The maximum diameter of this collection measures 5 millimeters. PERIORBITAL SOFT TISSUES: Soft tissue swelling noted circumferentially about the left orbit. TEETH: Normal with no CT evidence of periodontal disease. SINUSES: Clear. MASTOID AIR CELLS and MIDDLE EAR CAVITIES: Clear. SCALP: No significant swelling or fluid collection. BRAIN: No abnormality identified in the anterior cranial fossa. CERVICAL SPINE: The included portions of the cervical spine are normal. OTHER SOFT TISSUES: Normal prevertebral soft tissue thickness. The cervical airway is widely patent. IMPRESSION: Preseptal and post-septal left orbital cellulitis with marked inflammation and enlargement noted in the extraocular muscles. The medial and lateral rectus muscles are affected to the greatest degree. There is a rim enhancing 4 millimeter ellipsoid low attenuation collection within the anterior aspect of the left lateral rectus muscle most consistent with a small intramuscular abscess. There is no evidence of a subperiosteal abscess. The paranasal sinuses are clear. Most recent chest CT: CT Chest without Contrast Anatomical Region Laterality Modality Chest -- Computed Tomography Impression No acute findings. Similar appearance of bilateral scattered subcentimeter pulmonary nodules as described above. Narrative REASON FOR EXAM: immune suppression, patient with multiple pneumonias ;Immunosuppressed status PROCEDURE: CT CHEST WITHOUT CONTRAST COMPARISON: Chest CT 08/18/2019. TECHNIQUE: Volumetric CT acquisition of the chest from the thoracic inlet through the lung bases. Images were reconstructed in the axial and coronal planes. Contrast: None. Sedation: None. FINDINGS: LINES AND CATHETERS: None. MEDIASTINUM: The unenhanced mediastinal contours are normal. No obvious mediastinal or hilar lymphadenopathy. The thoracic aorta has a grossly normal caliber with a LEFT-sided arch. No cardiomegaly or pericardial effusion. PLEURA: No pleural effusion or pneumothorax. TRACHEA AND BRONCHI: The trachea and bronchi are normal in caliber with a normal branching pattern. No endoluminal mass or narrowing is found. LUNGS: Redemonstration of scattered bilateral pulmonary nodules on series 3, images 61, 62, 65, 44, 121, 123, 128, 137, 143, and 162. No new or enlarging pulmonary nodule. The largest once again measures up to 5 mm. BONES: Normal. CHEST WALL SOFT TISSUES: No supraclavicular or axillary lymphadenopathy. Symmetric soft tissues of the chest wall. UPPER ABDOMEN: Grossly normal. CT chest no contrast [facility] 04/19/2020 REASON FOR EXAM: immune suppression, patient with multiple pneumonias ;Immunosuppressed status PROCEDURE: CT CHEST WITHOUT CONTRAST COMPARISON: Chest CT 08/18/2019. TECHNIQUE: Volumetric CT acquisition of the chest from the thoracic inlet through the lung bases. Images were reconstructed in the axial and coronal planes. Contrast: None. Sedation: None. FINDINGS: LINES AND CATHETERS: None. MEDIASTINUM: The unenhanced mediastinal contours are normal. No obvious mediastinal or hilar lymphadenopathy. The thoracic aorta has a grossly normal caliber with a LEFT-sided arch. No cardiomegaly or pericardial effusion. PLEURA: No pleural effusion or pneumothorax. TRACHEA AND BRONCHI: The trachea and bronchi are normal in caliber with a normal branching pattern. No endoluminal mass or narrowing is found. LUNGS: Redemonstration of scattered bilateral pulmonary nodules on series 3, images 61, 62, 65, 44, 121, 123, 128, 137, 143, and 162. No new or enlarging pulmonary nodule. The largest once again measures up to 5 mm. BONES: Normal. CHEST WALL SOFT TISSUES: No supraclavicular or axillary lymphadenopathy. Symmetric soft tissues of the chest wall. UPPER ABDOMEN: Grossly normal. IMPRESSION No acute findings. Similar appearance of bilateral scattered subcentimeter pulmonary nodules as described above. Bone density 09/16/2018 ([facility]) normal for debo Assessment: Kings Hatfield is a 22 y.o. female with history of Crohn's disease, orbital myositis/idiopathic orbital inflammation, TNFi-induced scalp psoriasis, hidradenitis suppurativa. Currently she appears to be in clinical remission in regards to her Crohn's disease and orbital inflammation. She has some asymmetry of left and right lower legs. Plan: No need for additional treatment at this time Ustekinumab per GI - GI team provided recommendations that infant should not receive live virus vaccines for 6 months due to ustekinumab therapy and potential to cross placenta Obtain doppler ultrasound of left leg to exclude DVT - to be done today close to home 4. Labs reviewed- no additional labs ordered. 5. 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 Please have ultrasound done of left leg within 24 hours either at [facility] or [facility] History of Present illness Narrative Images from the original note were not included. [facility] Chief Complaint Patient presents with Follow-up Crohn's Disease HISTORY OF PRESENT ILLNESS Kings Hatfield is a 22 y.o. female w/ PMH Ileocolonic Crohn's disease Stelara, orbital myositits, psoriasis, chronic sinusitis here to establish care with adult IBD. Patient was diagnosed with Crohn's disease when 10 years old. At that time was having abdominal cramping, weight loss, urgency, diarrhea. Had colonoscopy performed at that time and was told had Crohn's disease. Was started on 6-MP and prednisone. This didn't really improve symptoms. Had to start Infliximab but developed psoriasis and was switched to Entyvio which controlled for 2 years. Noted to have eye swelling and redness in eyes and was diagnosed with orbital myositis and developed pulmonary nodules. Was told Crohn's moved to mouth. Went to Humira and this stopped working. On Rituximab for orbital myositis. Has been on Stelara for at least a year and states things have been going well for past couple of months. Was ordered stool calprotectin to ensure inflammation was stable throughout last 2 visits but not completed. Currently 36 weeks . Feeling well. Having inconsistent stools-- some days will have 1-2 others will skip. Denies blood in stool. Denies abdominal pain, nausea or vomiting. Denies urgency. Planning for -- due to baby size. From an EIM standpoint, denies oral ulcers, eye pain to suggest iritis or uveitis, skin rash or lesions, IBD history Diagnosed (age): 10 Disease distribution: [place] Classification: CD: A1 <16, L3 ileocolonic GI surgical history: Ileocectomy 2016 Current therapy: Stelara [id number] Past therapy: Infliximab(stopped due to severe scalp psoriasis), Entyvio(stopped due to facial granulomatosis swelling), Humira? Last colonoscopy: 2019 Last imaging: N/A Complications: Orbital myositis, psoriasis, Complete 14-Point Review of Systems: See History of Present Illness for pertinent positives/negatives; health history questionnaire also reviewed. Otherwise, all other systems negative. PAST MEDICAL HISTORY: Past Medical History: Diagnosis Date Crohn's colitis Orbital myositis of both sides Pulmonary nodules PAST SURGICAL HISTORY: Past Surgical History: Procedure Laterality Date APPENDECTOMY COLECTOMY partial TONSILLECTOMY ADENOIDECTOMY ALLERGIES: Allergies Allergen Reactions Cefdinir Anaphylaxis and Rash Other Reaction(s): Unknown Has reaction to brand name Omnicef, but can take generic cefdinir capsules Has reaction to brand name Omnicef, but can take generic cefdinir capsules Sulfamethoxazole-Trimethoprim Anaphylaxis and Rash Other Reaction(s): Unknown Infliximab Other Reaction(s): Other (See Comments) Other Reaction(s): Other (See Comments), Unknown Psoriasis (Remicade) Psoriasis (Remicade) Pentamidine Headache Flushing, headache, and vomiting with IV infusion. Tolerates aerosol for PJP prophylaxis. 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, Unknown MEDS: reviewed Current Outpatient Medications: Acetaminophen 325 MG tablet, Take 2 tablets by mouth Every 6 hours as needed., Disp: , Rfl: Vit-Fe Fumarate-FA ( PO), Take by mouth., Disp: , Rfl: riTUXimab 100 MG/10ML chemo injection, as directed Intravenous, Disp: , Rfl: Ustekinumab 90 MG/ML Solution Prefilled Syringe injection, Inject 1 mL under the skin every 56 days., Disp: , Rfl: Family History Problem Relation Age of Onset Stroke Mother Hypertension Father Social History Socioeconomic History Marital status: Single Tobacco Use Smoking status: Never Smokeless tobacco: Never Vaping Use Vaping status: Never Used Substance and Sexual Activity Alcohol use: Not Currently Drug use: Not Currently Sexual activity: Yes Social Determinants of Health Financial Resource Strain: Low Risk (02/09/2023) Received from [facility] Overall Financial Resource Strain (CARDIA) Difficulty of Paying Living Expenses: Not hard at all Food Insecurity: No Food Insecurity (04/24/2023) Received from [facility] Hunger Screening Within the past 12 months we worried whether our food would run out before we got money to buy more.: Never True Within the past 12 months the food we bought just didn't last and we didn't have money to get more.: Never True Transportation Needs: No Transportation Needs (02/09/2023) Received from [facility] PRAPARE - Transportation Lack of Transportation (Medical): No Lack of Transportation (Non-Medical): No Physical Activity: Sufficiently Active (02/09/2023) Received from [facility] Exercise Vital Sign Days of Exercise per Week: 6 days Minutes of Exercise per Session: 40 min Stress: No Stress Concern Present (02/09/2023) Received from [facility] [place] of Occupational Health - Occupational Stress Questionnaire Feeling of Stress : Not at all Social Connections: Moderately Isolated (02/09/2023) Received from [facility] Social Connection and Isolation Panel [NHANES] Frequency of Communication with Friends and Family: More than three times a week Frequency of Social Gatherings with Friends and Family: Twice a week Attends Roman [employer] Services: Never Active Member of Clubs or Organizations: No Attends Club or Organization Meetings: Never Marital Status: Living with partner Intimate Partner Violence: Not At Risk (02/09/2023) Received from [facility] Humiliation, Afraid, Rape, and Kick questionnaire Fear of Current or Ex-Partner: No Emotionally Abused: No Physically Abused: No Sexually Abused: No Housing Stability: Low Risk (02/09/2023) Received from [facility] Housing Stability Vital Sign Unable to Pay for Housing in the Last Year: No Number of Places Lived in the Last Year: 2 Unstable Housing in the Last Year: No Physical Exam: Vitals: 08/06/23 0934 BP: 102/76 Pulse: 75 SpO2: 98% Vitals reviewed. General: alert and oriented, in NAD, weight appropriate for height. Skin: no apparent rashes, scars, bruises, tattoos or bleeding HEENT: head normocephalic/atraumatic. No cervical lymphadenopathy or neck masses. Neck ROM in tact. Cardiovascular: RRR, Normal S1/S2 Respiratory: Lungs CTAb. No wheezes or crackles. Abdomen: soft, non-tender, non-distended, no organomegaly. No CVA tenderness. Musculoskeletal: No gross ROM deficiencies. Neurologic: Sensation and strength grossly preserved. LABS: No results found for: WBC , WBCCOUNT , WBCFETAL , HGB , HCT , PLATELET , MCV Lab Results Component Value Date SODIUM 138 02/25/2023 POTASSIUM 3.9 02/25/2023 CHLORIDE 105 02/25/2023 CO2 25 02/25/2023 BUN 7 02/25/2023 CREATSERUM 0.48 (L) 02/25/2023 No results found for: SEDRATE Lab Results Component Value Date CRP 4.81 02/25/2023 RADIOLOGIC STUDIES: Relevant radiology studies were reviewed in [facility] IMPRESSION: Kings Hatfield is a 22 y.o. female w/ PMH Ileocolonic Crohn's disease s/p ileocectomy 2016 on Stelara [id number], orbital myositits, psoriasis, chronic sinusitis here to establish care with adult IBD. Patient diagnosed with Crohn's disease at 10 years old when having abdominal cramping, weight loss, urgency, and diarrhea. Had colonoscopy performed at that time and told had Crohn's. Was put on 6-MP and steroids but no improvement in symptoms. Was then placed on infliximab but developed psoriasis so then switched to Entyvio for 2 years. Was noted to have orbital myositis and pulmonary nodules in addition to having Crohn's involvement of her mouth. Was switched to Humira which initially worked but then stopped working. Was finally placed on Stelara every 8 weeks about a year ago and has been doing well on this. Was on Rituximab for orbital myositis but this has been held in the setting of her . She presents today 36 weeks and in clinical remission on stelara every 8 weeks. She will continue medication as prescribed. We discussed the need for stool calprotectin to monitor inflammation in a non-invasive way. She is amendable to this at this time. We discussed it is safe to continue medication throughout . Baby cannot have live vaccines after for 6 months due to Stelara crossing the placenta. Will see her back in 3 months, sooner if needed will plan to order colonoscopy at that time. PLAN/RECOMMENDATIONS: - Continue Stelara every 8 weeks - Stool calprotectin - Will follow up with Rheumatology for orbital myositis - Will obtain colonoscopy next March -- needs ordered next visit - RTC 3 months Healthcare maintenance: - Live vaccines should generally be avoided (eg. Zoster/Shingles) - Influenza vaccine: recommend annually - Prevnar (PCV-13) vaccine: If not already received, then followed 8weeks later with PPSV-23 - Pneumovax (PPSV-23) vaccine: as above, due for booster 5 years after; and again at age 65 - Hepatitis B: Ordered today - HPV vaccine: recommend f/u with PCP if not already done - TB status: quantiferon gold-Ordered today - Colon cancer screening: last colonoscopy 2019, dysplasia surveillance colonoscopy due 8 years from time of diagnosis - Cervical cancer: counseled. F/u with primary provider for routine screening - Skin cancer: counseled. F/u with primary provider or dermatology for annual skin exams-follows with provider - Bone density: DEXA-Assess in future - Smoking status: non-smoker Total time spent on today's encounter including chart review, patient encounter, discussion, order placement, chart completion: 30 minutes DANIKA Saha IBD Nurse Practitioner Division of Gastroenterology, Hepatology, and Nutrition This MA verified patients name and . documented in this encounter [facility] 08-06-2023 Instructions DANIKA Cornelius - 08/06/2023 10:00 AM EDT - Continue Stelara every 8 weeks - Baby no live vaccines for 6 months (rotavirus) - Stool calprotectin - Will follow up with Rheumatology for orbital myositis - Will obtain colonoscopy next March - RTC 3 months documented in this encounter [facility] 04-24-2023 History of Present illness Narrative Headache/epigastric pain/blurry vision/swelling? No Cramping/contractions? No Abnormal vaginal discharge? No Spotting/vaginal bleeding? No Loss of fluid like your water may have broken? No Cats in the home? No Do you change the litter box? N/A Flu vaccine? No Genetic testing done this here or other office?Yes Have you been seen here at [facility] in a previous ? No Recent ER visits or hospitalizations? No Bring blood sugar log or meter with you today? (Please bring them with you for every visit at [facility]) N/A Traveled outside the country in the past 6 month No Any concerns that you would like me to mention to the provider today? No [facility] Consult Note Reason For Consult: HPI: Kings Hatfield is a 22 y.o. @ 19w4d who presented for consultation from Alfredo Fortune, AURAAdrian regarding Chief Complaint Patient presents with HX Colitis Crohn's Disease She reports that she is doing well. She reports normal movements and she denies LOF, contractions, vaginal bleeding, headache, blurry vision, RUQ pain and edema. The primary encounter diagnosis was Maternal Crohn's disease affecting in second trimester ([facility]). Diagnoses of History of chronic ulcerative colitis and 19 weeks gestation of were also pertinent to this visit. She has had low risk aneuploidy screen for select aneuploidy of chromosomes 21, 13, 18 and sex chromosomes. Review of systems: Review of systems was noncontributory Complications: Problem List Items Addressed This Visit None Visit Diagnoses Maternal Crohn's disease affecting in second trimester ([facility] - Primary History of chronic ulcerative colitis 19 weeks gestation of PMH: Past Medical History: Diagnosis Date Anemia Crohn's disease ([facility]) GERD (gastroesophageal reflux disease) Myositis Peptic ulcer PSHIST: Past Surgical History: Procedure Laterality Date ADENOIDECTOMY ANGIOGRAM 08/07/2014 APPENDECTOMY BIOPSY MASS 2019 eye COLON SURGERY LYMPH NODE BIOPSY 2015 NASAL SEPTUM SURGERY OB Hx: OB History Para Term AB Living 1 SAB IAB Ectopic Multiple Live Births # Outcome Date GA Lbr Vasyl/2nd Weight Sex Delivery Anes PTL Lv 1 Current PREECLAMPSIA SCREEN ([place] Preventive Services Task Force) Patient is at high risk if 1 or more factors present. Incidence of preeclampsia is ? 8%: Prior preeclampsia NO Multiple gestation NO Chronic hypertension NO Type 1 or 2 diabetes NO Renal disease NO Autoimmune disease NO (Lupus, APLS) Patient is at moderate risk is several risk factors are present: Nulliparity NO Obesity (BMI ? 30) NO Family history of preeclampsia NO (Mother, sister) NO Sociodemographic characteristics NO (AA, low socioeconomic status) Age ? 36 NO Personal history factor NO (Previous SGA, adverse outcome, > 10 years from last ) Allergies: Allergies Allergen Reactions Cefdinir Anaphylaxis Sulfamethoxazole-Trimethoprim Rash Meds: Prior to Admission medications Medication Sig Start Date End Date Taking? Authorizing Provider acetaminophen (TYLENOL) 325 mg tablet Take 2 tablets (650 mg total) by mouth every 6 (six) hours as needed for pain. Yes Not In System Ref Prov vit,yovanny 74/iron/folic ( VITAMIN 1+1 ORAL) Take 1 tablet by mouth in the morning. Yes Not In System Ref Prov ustekinumab (STELARA) 90 mg/mL injection Inject 1 mL (90 mg total) under the skin every 3 (three) months. Yes Not In System Ref Prov SH: Social History Socioeconomic History Marital status: Single Spouse name: Not on file Number of children: Not on file Years of education: Not on file Highest education level: Not on file Occupational History Not on file Tobacco Use Smoking status: Never Smokeless tobacco: Never Substance and Sexual Activity Alcohol use: Not Currently Drug use: Never Sexual activity: Not on file Other Topics Concern Not on file Social History Narrative Not on file Social Determinants of Health Financial Resource Strain: Not on file Food Insecurity: No Food Insecurity (04/24/2023) Hunger Screening Food Insecurity - Worry: Never True Food Insecurity - Inability: Never True Transportation Needs: Not on file Physical Activity: Not on file Stress: Not on file Social Connections: Not on file Interpersonal Safety: Not on file Physical Exam: Vital Signs Vitals: 04/24/23 1359 BP: 106/68 Pulse: 81 Height: 160 cm (5' 3 ) Physical Exam: Gen: Not in acute distress, alert and oriented. Eyes: Pupils equal and reactive Chest: Nonlabored breathing Cardiac: Pulse was regular on vital signs assessment Abdomen: Gravid Skin/extremities: Appears intact. No visible lesions MS:no visible edema Neuro: No focal deficits Assessment/Plan 22 y.o. @ 19w4d here for consultation regardin. Maternal Crohn's disease affecting in second trimester ([facility]) 2. History of chronic ulcerative colitis Kings Hatfield reports that she was diagnosed with Crohn disease and colitis about 10 years ago. She reports that she had multiple medical management options however had been recently in remission for more than 6 months. She is followed by Gastroenterology at [facility]. She had last seen them on 02/25/23 and has a follow-up appointment with them next week Kings Hatfield is a 22 y.o. female w/ PMH Ileocolonic Crohn's disease s/p ileocectomy 2016 on Stelara [id number], orbital myositits, psoriasis, chronic sinusitis Per gastroenterology: PLAN/RECOMMENDATIONS: -Chem 6 and LFT's ordered -CRP and stool calprotectin -Quantiferon TB, TPMT and chronic hepatitis panel ordered -Some nutrition labs ordered -UST level ordered -Continue Stelara every 8 weeks. Will plan for Stelara to be given 8 weeks or so prior to delivery and then shortly after. Following with high school foreign language tutor -Will follow up with Rheumatology for orbital myositis -Will obtain colonoscopy well after delivers. -RTC 2 months She is maintained on Stelara. Reprotox reviewed Quick take: Studies in monkeys did not show adverse effects of ustekinumab. There are human case reports of normal after use of this agent. Timing of delivery would be based on her last dose of Stelara. To minimize effects and immune suppression recommend last dose to be about 8 weeks from delivery. Accordingly delivery is recommended at 39-40 weeks of gestation. Dose to be coordinated with her GI specialist Most women with Crohns disease do well in . Active disease at the time of conception tends to remain active and inactive disease tends to remain inactive. If a patient has quiescent disease, she can expect to progress through without increased complications. Many medications used to treat Crohns disease, such as sulfasalazine, 5-aminosalicylates, and corticosteroids are typically safe to use if necessary. Continue on Stelara per GI recommendations. She denies any history of perineal disease or any fistula or vaginal involvement. If she does have perineal disease or flares close to time of delivery then section would be recommended. Otherwise no contraindication for vaginal . In addition to her Crohn's disease discussed autoimmune disorders in general. She has not had thyroid function testing during this . She does not have family history of thyroid disorder. Recommend obtaining thyroid function tests anyway in view of her Crohn's disease and to follow-up accordingly. This can be ordered by her primary OB team. 3. 19 weeks gestation of Maternal Crohn's disease affecting in second trimester ([facility]) [O99.612, K50.90] Recommendations: Follow-up detailed anatomic evaluation in 4 weeks Serial growth assessments every 4 weeks after the anatomy scan Follow-up with GI at [facility] Recommend obtaining thyroid function tests Delivery recommended at or after 39-40 weeks, earlier as clinically indicated Plan reviewed with patient. She vocalized understanding all questions answered. The patient is to continue with routine care in your office [facility], the CDC, and other organizations representing maternal and public health professionals recommend that , , and lactating people and those considering receive the COVID-19 vaccination. Vaccination is the best method to reduce maternal and complications of SARS-CoV-2 infection. This document was created with [employer] technology. Though I make every effort to review the dictation as it is transcribed, on occasion the spoken word can be misinterpreted by the technology leading to inappropriate words, phrases, or sentences. This note is addressed to the requesting provider as a consultation for clinical guidance. Specific medical abbreviations are occasionally used and those are generally approved by the [place]?Board of?Obstetrics and?Gynecology?as well as?Earle knight abbreviations. The above plan of care was based solely on the diagnoses for which a consultation was requested. ?More frequent testing may be indicated based on her other medical/obstetrical conditions. The management of other or medical conditions is beyond the scope of requested consultation and will continue to be followed by the primary powder loader or primary care provider. Thank you for allowing me to participate in her care. Please contact me if you have any concerns. Total time spent was 45 minutes: Preparing to see the patient (e.g., review of tests) Obtaining and/or reviewing separately obtained history Performing a medically appropriate examination and/or evaluation Counseling and educating the patient/family/caregiver Ordering medications, tests, or procedures Referring and communicating with other health health care attorney (not separately reported) Documenting clinical information in the electronic or other health record Independently interpreting results (not separately reported) and communicating results to the patient/family/caregiver Care coordination (not separately reported) documented in this encounter [facility] 04-03-2023 History of Present illness Narrative MA to room to draw Anser UST- red serum tube Pt identified with name and 1 attempt made in right Antecubital fossa- success Excessive Bleeding or Bruising at draw site: no documented in this encounter [facility] 03-03-2023 Telephone encounter Note Noted. Pete Jaramillo [facility] 03-03-2023 Miscellaneous Notes Noted. Thanks Ella Spoke with Kings. She has established care w/[facility]. She has appoints [facility] in March and April. placed on chart. documented in this encounter [facility] 11-21-2023 Telephone encounter Note Spoke with Kings. She has established care w/[facility]. She has appoints (at [facility]) in March and April. placed on chart. [facility] 02-25-2023 History of Present illness Narrative [facility] Chief Complaint Patient presents with New Patient : 22 y.o. female sent in consultation by Alexx Arriola MD for evaluation of Crohn's disease. HISTORY OF PRESENT ILLNESS Kings Hatfield is a 22 y.o. female w/ PMH Ileocolonic Crohn's disease Stelara, orbital myositits, psoriasis, chronic sinusitis here to establish care with adult IBD. Patient was diagnosed with Crohn's disease when 10 years old. At that time was having abdominal cramping, weight loss, urgency, diarrhea. Had colonoscopy performed at that time and was told had Crohn's disease. Was started on 6-MP and prednisone. This didn't really improve symptoms. Had to start Infliximab but developed psoriasis and was switched to Entyvio which controlled for 2 years. Noted to have eye swelling and redness in eyes and was diagnosed with orbital myositis and developed pulmonary nodules. Was told Crohn's moved to mouth. Went to [facility] [facility] and this stopped working. On Rituximab for orbital myositis. Has been on Stelara for at least a year and states things have been going well for past couple of months. No abdominal pain. No nausea or vomiting in relation to Crohn's disease. No dysphagia or odynophagia. No acid reflux. No diarrhea. Some constipation. Before would have 1-2 bowel movements/day. No blood in the stool. Some weight gain in setting . Has right hip bursitis which she goes to PT. From an EIM standpoint, denies oral ulcers, eye pain to suggest iritis or uveitis, skin rash or lesions, No tobacco use. No alcohol use. No illicit drug use. Patient currently 11 weeks . IBD history Diagnosed (age): 10 Disease distribution: [place] Classification: CD: A1 <16, L3 ileocolonic GI surgical history: Ileocectomy 2016 Current therapy: Stelara [id number] Past therapy: Infliximab(stopped due to severe scalp psoriasis), Entyvio(stopped due to facial granulomatosis swelling), Humira? Last colonoscopy: 2019 Last imaging: N/A Complications: Orbital myositis, psoriasis, Questionnaires HBI: 0 Short IBD: 70 PHQ-9: 0 Complete 14-Point Review of Systems: See History of Present Illness for pertinent positives/negatives; health history questionnaire also reviewed. Otherwise, all other systems negative. PAST MEDICAL HISTORY: Past Medical History: Diagnosis Date Crohn's colitis Orbital myositis of both sides Pulmonary nodules PAST SURGICAL HISTORY: Past Surgical History: Procedure Laterality Date APPENDECTOMY COLECTOMY partial TONSILLECTOMY ADENOIDECTOMY ALLERGIES: Allergies Allergen Reactions Cefdinir Anaphylaxis and Rash Other Reaction(s): Unknown Has reaction to brand name Omnicef, but can take generic cefdinir capsules Has reaction to brand name Omnicef, but can take generic cefdinir capsules Sulfamethoxazole-Trimethoprim Anaphylaxis and Rash Other Reaction(s): Unknown Infliximab Other Reaction(s): Other (See Comments) Other Reaction(s): Other (See Comments), Unknown Psoriasis (Remicade) Psoriasis (Remicade) Pentamidine Headache Flushing, headache, and vomiting with IV infusion. Tolerates aerosol for PJP prophylaxis. 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, Unknown MEDS: reviewed Current Outpatient Medications: Acetaminophen 325 MG tablet, Take 2 tablets by mouth Every 6 hours as needed., Disp: , Rfl: Vit-Fe Fumarate-FA ( PO), Take by mouth., Disp: , Rfl: riTUXimab 100 MG/10ML chemo injection, as directed Intravenous, Disp: , Rfl: Ustekinumab 90 MG/ML Solution Prefilled Syringe injection, Inject 1 mL under the skin every 56 days., Disp: , Rfl: Family History Problem Relation Age of Onset Stroke Mother Hypertension Father Social History Socioeconomic History Marital status: Single Tobacco Use Smoking status: Never Smokeless tobacco: Never Vaping Use Vaping Use: Never used Substance and Sexual Activity Alcohol use: Not Currently Drug use: Not Currently Sexual activity: Yes Physical Exam: Blood pressure 118/70, pulse 74, height 1.6 m (5' 3 ), weight 82.1 kg (181 lb), SpO2 97 %. General: NAD, resting comfortably in chair HEENT: AT/NC, no scleral icterus, oropharynx unremarkable Lungs: CTABL, no wheezing, rales, rhonchi Heart: RRR, no murmurs, rubs, gallops Abdomen: +BS, soft, NT/ND, no rebound/guarding Extremities: 2+ pedal/radial pulses, no cyanosis, no pedal edema, no obvious jaundice Neurologic: AAOx3, Motor grossly normal. LABS: No results found for: WBC , WBCCOUNT , WBCFETAL , HGB , HCT , PLATELET , MCV No results found for: SODIUM , POTASSIUM , CHLORIDE , CO2 , BUN , CREATSERUM , GLUCOSE No results found for: SEDRATE No results found for: CRP RADIOLOGIC STUDIES: Relevant radiology studies were reviewed in [facility] IMPRESSION: Kings Hatfield is a 22 y.o. female w/ PMH Ileocolonic Crohn's disease s/p ileocectomy 2016 on Stelara [id number], orbital myositits, psoriasis, chronic sinusitis here to establish care with adult IBD. Patient diagnosed with Crohn's disease at 10 years old when having abdominal cramping, weight loss, urgency, and diarrhea. Had colonoscopy performed at that time and told had Crohn's. Was put on 6-MP and steroids but no improvement in symptoms. Was then placed on infliximab but developed psoriasis so then switched to Entyvio for 2 years. Was noted to have orbital myositis and pulmonary nodules in addition to having Crohn's involvement of her mouth. Was switched to Humira which initially worked but then stopped working. Was finally placed on Stelara every 8 weeks about a year ago and has been doing well on this. Was on Rituximab for orbital myositis but this has been held in the setting of her . Patient is currently 11 weeks and is doing well. She has some nausea/vomiting in setting of as well as constipation but feels her Crohn's disease is well controlled PLAN/RECOMMENDATIONS: -Chem 6 and LFT's ordered -CRP and stool calprotectin -Quantiferon TB, TPMT and chronic hepatitis panel ordered -Some nutrition labs ordered -UST level ordered -Continue Stelara every 8 weeks. Will plan for Stelara to be given 8 weeks or so prior to delivery and then shortly after. Following with high school foreign language tutor -Will follow up with Rheumatology for orbital myositis -Will obtain colonoscopy well after delivers. -RTC 2 months HCM Healthcare maintenance: - Live vaccines should generally be avoided (eg. Zoster/Shingles) - Influenza vaccine: recommend annually - Prevnar (PCV-13) vaccine: If not already received, then followed 8weeks later with PPSV-23 - Pneumovax (PPSV-23) vaccine: as above, due for booster 5 years after; and again at age 65 - Hepatitis A: Ordered today - Hepatitis B: Ordered today - HPV vaccine: recommend f/u with PCP if not already done - TB status: quantiferon gold-Ordered today - Colon cancer screening: last colonoscopy 2019, dysplasia surveillance colonoscopy due 8 years from time of diagnosis - Cervical cancer: counseled. F/u with primary provider for routine screening - Skin cancer: counseled. F/u with primary provider or dermatology for annual skin exams-follows with provider - Bone density: DEXA-Assess in future - Smoking status: non-smoker Giovani Edmonds MD Division of Gastroenterology, Hepatology, and Nutrition Pager:[phone] This MA verified patients name and . documented in this encounter [facility] 02-25-2023 Instructions Giovani Edmonds MD - 02/25/2023 1:00 PM EST Thank you for coming to [facility] Gastroenterology, Hepatology, and Nutrition. It was a pleasure to see you today. Your doctor was Dr. Giovani Edmonds. The following are your instructions: It was great getting to meet with you and your mother today. I am glad that your symptoms are going well. Congrats on the ! I have ordered some blood work and a stool study. Continue the Stelara. We will plan for you to have injection 8 weeks or so before your delivery and then right after you deliver. Follow up in 2 months As a reminder, [facility] should not be used as a form of communication that replaces an office visit. It can be used for reminders and clarifications. Always bring an updated medication list with you to your doctor's visits. Please try to arrive at least 15 minutes before your scheduled visit. --------- If you had labs drawn, I or my team will either call you, send you a Encover message, or mail you a letter with the results of your tests within 1-2 weeks after you have completed your tests. If you do not hear from our office, please call the clinic to receive your results at [phone]. If you need to fax old records in, please fax to [phone]. --------- If you have any concerning symptoms, please seek immediate medical attention. documented in this encounter [facility] 01-26-2023 Hospital Discharge instructions Zhou Aly MD - 01/26/2023 11:16 AM EDT It was a pleasure seeing Kings today. Have a ferritin checked in 3-4 months to ensure no need for iron infusion. We will work on finding an adult Locker Room Supervisor to follow with at [facility]. Hematology Clinic Patient Instructions Please call if you have any questions or concerns about your child's care during the hours of 8-5 Doug through Thursday. After 5PM on weekdays or on weekends please call the hospital answering service telephone operator and ask for the coke oven patcher director radiation oncology. documented in this encounter [facility] 01-26-2023 History of Present illness Narrative Informant: self mother Patient is a 22yo her for f/u recurrent sinusitis. History turbs and sinus surgery 03/20/22. Doing well. [facility] PEDIATRIC OTOLARYNGOLOGY FOLLOW UP VISIT NOTE Chey Aragon MD [address] [place] [address] Kings Hatfield is a 22 year female who was seen in the Pediatric Otolaryngology Clinic for an established patient visit. CHIEF COMPLAINT: Her chief complaint is Sinus Problem (F/u recurrent sinusitis) INFORMANT: The history was obtained from Self HISTORY OF PRESENT ILLNESS: Kings is here today for follow up of chronic sinusitis Doing well Currently . Other pertinent ENT HPI: None Pertinent Medical/Surgical/Social History, Medications, Allergies: None Pertinent Physical Examination: Vital Signs: Vitals: 01/26/23 0951 Resp: 20 Weight: 81.1 kg (178 lb 12.7 oz) Height: 161.1 cm (63.43 ) Body mass index is 31.25 kg/m . Facility age limit for growth %mike is 19 years. Constitutional General Appearance: well developed and well nourished and in no acute distress Speech: age appropriate Head & Face: normocephalic, symmetric, facial strength 1/6 bilaterally, facial palpation without tenderness over skeleton and sinuses, facial sensation intact Eyes: no eyelid swelling, no conjunctival injection or exudate, pupils equal round and reactive to light Ears: Right EXT: normal appearing pinna Right EAC: patent Right TM: normal landmarks and mobility Left EXT: normal appearing pinna Left EAC: patent Left TM: normal landmarks and mobility Nose: Dorsum dorsum midline, no scars or lesions Nasal mucosa: no edema. Rhinorrhea: no drainage Septum: midline Turbinates: no inferior turbinate hypertrophy Oral Cavity, Mouth, Pharynx Lips: normal mucosa and red lip Oral mucosa: moist, pink Palate: intact, mobile, no hard or soft palate lesions Pharynx: intact mobile Tongue: tongue: intact, full range of motion; floor of mouth: no lesions Tonsil size: nonobstructive Neck: Trachea: midline Thyroid: no palpable nodules or irregularities Salivary glands: No parotid or submandibular masses or tenderness noted. Lymphatic Nodes: no palpable nodes Respiratory: Auscultation: did not examine Effort: no retractions Voice: normal clarity and volume Neuro/ Psych Cranial Nerves: CN II-XII intact CHART REVIEW: Audiogram: not performed Radiology: None Labs: None Outside medical record review: None [facility] chart review: Previous ENT notes reviewed Discussion of patient care/ tests with other professional/s: No Procedures Performed: None RISK ASSESSMENT:` None Bleeding Risk Score Kings - Bleeding Risk Score: 0 (01/26/2023 9:15 AM) I view the management of the problems encountered in this visit as: Minimal risk of morbidity from additional testing or management Pertinent Social Determinants of Health: n/a VISIT DIAGNOSIS/ASSESSMENT: 1. Chronic sinusitis, unspecified location PLAN/MANAGEMENT OPTIONS: F/U PRN documented in this encounter [facility] 01-26-2023 Instructions Christin Suazo RN - 01/26/2023 10:00 AM EDT You do not need to schedule an ENT office visit at this time but we are happy to see you in the future for any additional ENT concerns. Please call Central Scheduling at [phone] and follow the prompts to schedule an ENT office visit should you need a future appointment in the ENT clinic. Call us at [phone] to speak to a nurse if you should have any additional ENT- related questions or concerns after today s visit. Department of Otolaryngology (ENT) Patient Instructions ENT Nurse Triage Line: [phone] (Thursday through Thursday 8:00 am - 4:00 pm) Please call the ENT Nurse Triage Line if you need to speak to a nurse for any ENT- related medical concerns prior to your next appointment. [facility] Reiki Practitioner: [phone] (Weekdays after 4:00 pm and on Weekends) If you have urgent ENT concerns for your child after hours that can t wait until our return to the office, please call the hospital answering service telephone operator and ask to speak to the ENT physician director radiation oncology. [facility] Central [phone] (Thursday through Thursday 7:30 am -5:30 pm) Please call Central Scheduling and follow the prompts to schedule an ENT appointment if you did not schedule an appointment today, or if you need to cancel and reschedule a future appointment. For more information about the Department of Otolaryngology (Ear, Nose and Throat) at [facility], please visit our website at: [email or web address] documented in this encounter [facility] 01-26-2023 History of Present illness Narrative Self-Management Policy Given 14 and over? Yes, 12/18/16 Vaccine Needed? None Refills requested: No Did patient provide medication info (>16y/o): Yes Average pain from rheumatic condition in last 7 days: 0/10 Pain location: Right Hip pain that patient states has occurred over the last 2 months and is bursitis, managed by PCP. LMP (if has ever had a menses and is >8 years): Having periods Teratogenic medication: n/a Last consent date: N/A Need new consent? no POCT: N/A Vitamin D level: Appointment on 05/05/22 VITAMIN D 25 HYDROXY Status: None Collection Time: 05/05/22 10:33 AM Result Value Ref Range VITAMIN D 25 HYDROXY 30 30 - 120 ng/mL *Note: Due to a large number of results and/or encounters for the requested time period, some results have not been displayed. A complete set of results can be found in Results Review. Urine collected (Lupus Only)? N/A Were SDOH Question asked: YES Ancillary staff to see patient? (provider to red dot if yes): No Additional Comments: Follow up. PT reports right hip pain that is being managed by PCP and sports medicine. PT endorses . Images from the original note were not included. RHEUMATOLOGY FOLLOW-UP VISIT Patient Name: Kings Hatfield Birthdate: 2000 Visit Date: 01/26/2023 Informant: Self Escorted By: Mother History of disease: Problem List: 1. Crohn's Disease: [facility]- GI. S/p enteral diet, s/p Infliximab (d/c'd due to severe scalp psoriasis),surgery ( ileocecectomy) in March 2016, s/p Entyvio (d/c'd in June 2018 due to CD disease activity with (biopsy proven) orofacial granulomatous swelling), Humira July 2018- December 2021. Switched to Stelara in February 2022 due to active psoriasis. No recent flares or side effects to medications 2. 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 MTX was discontinued in summer 2017 due to frequent sinus infections), Rituximab x2 doses 2 weeks apart in November 2016, then on 11/27/17 and 12/09/17, then on 01/04/19 and 01/19/19. 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 Low IgG s/p Rituximab.Followed by Opthalmology and Oculoplastics. She has continued on rituximab on a yearly basis. Her last infusion was on 01/28/22. Per review of labs, her B-cells have returned. She has not had a recurrence of orbital myositis since 2019. 3. Acute and chronic Pansinusitis- ENT (Dr. Lee): she had an extensive sinus surgery on 07/23/15. She had frequent sinusitis while on Methotrexate- biopsy proven orofacial granulomatous swelling. She had CT scan of sinuses obtained on 04/19/2020 (FESS changes, with improved aeration compared to 2019). Most recent sinus and turbinate surgery on 03/20/22. 4. Pulmonary nodules- follows with pulmonary team, most recent CT of chest on 04/19/2020 (No acute findings. Similar appearance of bilateral scattered subcentimeter pulmonary nodules) 5. Chronic cough: pertussis w/u neg, seen in All/Imm to r/o an allergic etiology. Since April 2019, Dr. Aleman is taking care of her. S/p Chest CT and Bronchoscopy with biopsy. Discharged home on VEST. 6. Iron deficiency anemia- attributed to malabsorption of iron due to Crohn's - seen by Hematology: s/p IV iron 7. Scalp psoriasis while on Remicade, currently resolved- had hydradenitis suppurativa (Clindamycin topical lotion to affected areas). Significant flare in 2021 for which she was started on Stelara. Interval History: Kings Hatfield is a 22years female with Crohn's disease, complicated by orbital myositis, pulmonary nodules, psoriasis, and uveitis. She is here for a follow-up visit. She has been on Stelara for the last year. She has some slight psoriasis on her scalp, but overall she has been very happy with the Stelara. She has not had any flares of Crohn's over the last year. Her last pulmonary exam was in January 2022. For the past 2-3 months, she has had pain in her right hip. It sometimes goes numb and tingles. She has been told she her greater trochanteric bursitis. She had an adjustment with an weight trainer. She has been given stretches. She uses KT tape. She has the most difficulty with sleep. Ice helps on occasion. She is 7 weeks . She has an appointment with a high school foreign language tutor/GYN in the next couple of weeks. She is in a stable relationship. Relevant Review of Systems: Review of Systems Constitutional: Positive for fatigue. Negative for fever, weight loss, weight gain and trouble keeping up with others. Eyes: Negative for pain, redness, visual disturbance and eye dryness. Ears: Negative for hearing loss and ear pain. Nose: Negative for nasal ulcers and nosebleeds. Mouth: Negative for oral ulcer, sicca symptoms, jaw pain or swelling and difficulty chewing. Throat: Negative for sore throat and trouble swallowing or speaking. Respiratory: Negative for cough and shortness of breath. Cardiovascular: Negative for chest pain, irregular heart rate and fast heart rate. Gastrointestinal: Negative for abdominal pain, constipation, diarrhea, melena, nausea and vomiting. Genitourinary: Negative for incontinence, dysuria, decreased urination, genital ulcer, increased urination and discharge. Skin: Negative for color change, rash, photosensitivity, hair loss, lumps and easy bruising. Musculoskeletal: Negative for muscle pain, joint pain, joint swelling, muscle weakness, joint stiffness and joint redness. Neurological: Negative for tingling, headaches, abnormal movement and loss of sensation. Hematological: Negative for adenopathy. Psychologic/Behavioral: Negative for depression, sleep disturbance, behavior changes and anxiety. Relevant History: 7 weeks . 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 Weight: 81.1 kg (178 lb 12.7 oz), Height: 161.1 cm (63.43 ) Body mass index is 31.25 kg/m ., Facility age limit for growth %mike is 19 years., Body surface area is 1.91 meters squared. Pain over the past one week: 0 General: well developed, well nourished, alert, oriented, in no acute distress HEENT: conjunctivae clear, mucous membranes moist, no oral lesions, no pharyngeal erythema, no nasal lesions Lymph: cervical lymph nodes normal Lungs: clear to auscultation, aeration normal, no retractions Cardiovascular: normal S1 & S2, regular rhythm, no murmur, peripheral pulses and perfusion normal Abdomen: soft, non-tender, no mass, no hepatosplenomegaly Skin: no alopecia, no malar rash, no discoid rash, no periungual inflammation, no nail changes, no vasculitic lesions, normal capillary refill, no sclerosis or tightening Mild psoriatic rash on scalp Muscle: strength normal, no tenderness, no atrophy Neuro: balance normal and no focal deficits Limp: Absent Spine: Scoliosis: Absent Joints: Joint Exam 01/26/2023 All documented joints were normal Patient Global: 0 mm Provider Global: -- [place] 10: -- Tests/ External Records Reviewed: I reviewed this information: Diagnostic Labs Toxicity Monitoring Labs Inflammatory Markers MRI Pathology reports Latest Reference Range & Units Most Recent (1,3)-IDAX-W-FVWCMD pg/mL <31 04/15/19 21:20 (1,3)-ZMKA-R-ECBAEE INTERP Negative Negative 04/15/19 21:20 ALBUMIN, CSF 0 - 35 mg/dL 32 08/15/21 13:56 KALA SCREEN NEG^Negative Positive ! 08/07/14 05:48 KALA TITER Titer 1:320 08/07/14 05:48 ANTI-CARDIOLIPIN ANTIBODY, IGG 0 - 15 GPL units 0 - 15 GPL units <9.4 08/07/14 05:48 Duplicate Order 08/07/14 05:48 ANTI-CARDIOLIPIN ANTIBODY, IGM 0 - 12.5 MPL units 0 - 12.5 MPL units 9.6 08/07/14 05:48 Duplicate Order 08/07/14 05:48 ANTI-NEUT CYTO AB Negative 08/07/14 05:48 ASPERGILLUS GALACTOMANNAN AG Negative Negative 04/21/19 09:35 ASPERGILLUS GALACTOMANNAN AG RESULT Negative Negative 04/15/19 21:20 ASPERGILLUS GALACTOMANNAN INDX 0.07 04/21/19 09:35 BETA 2 MICROGLOBULIN Test ordered in error based on source collected. Appropriate test code has been ordered. 06/21/20 07:29 C3 COMPLEMENT 86 - 184 mg/dL 115 08/07/14 05:48 C4 COMPLEMENT 16 - 59 mg/dL 34 08/07/14 05:48 C-Reactive Protein <1.0 mg/dL <0.5 05/05/22 10:33 CRITHIDIA AB TITER (IFA) NEG^Negative Negative 08/07/14 05:48 TOMY-FINAL APPLICATION REVIEWER NEG^Negative Negative 08/07/14 05:48 TOMY-SM NEG^Negative Negative 08/07/14 05:48 TOMY-SSA NEG^Negative Negative 08/07/14 05:48 TOMY-SSB NEG^Negative Negative 08/07/14 05:48 FERRITIN 4 - 233 ng/mL PATIENT DISCHARGED 01/26/23 10:51 HAPTOGLOBIN 33 - 171 mg/dL 205 (H) 08/11/14 06:03 !: Data is abnormal (H): Data is abnormally high Pathology: 03/20/22 Right posterior back mass, excision: - Soft tissue with chronic inflammation and foreign body-type giant cells, consistent with previous ruptured cyst - Skin with no significant diagnostic alteration 08/20/21 Tissue from right maxillary sinus, functional endoscopic sinus surgery procedure: - Upper respiratory mucosa-lined fibroconnective tissue with mixed inflammation, edema and reactive epithelial cell changes. - Please correlate with microbiology results. 06/20/21: A. Distal duodenum, biopsy: - Duodenal mucosa within normal limits - Fragment of squamous mucosa with moderately active esophagitis with up to 34 intraepithelial eosinophils per high power field; see comment. B. Duodenal bulb/stomach, biopsy: - Duodenal mucosa within normal limits - Fragment of gastric antral mucosa with mild chronic active gastritis - An immunohistochemical stain is negative for Helicobacter pylori organisms. C. Esophagus, biopsy: - Squamous mucosa within normal limits - Minute fragment of superficial small intestinal mucosa within normal limits D. Terminal ileum, biopsy: - Terminal ileal mucosa within normal limits E. Ascending colon, biopsy: - Colonic mucosa within normal limits F. Transverse colon, biopsy: - Colonic mucosa within normal limits G. Descending colon, biopsy: - Colonic mucosa with focal Paneth cell metaplasia H. Recto--sigmoid, biopsy: - Colonic mucosa with rare Paneth cell metaplasia 05/23/21: Soft tissue, right maxillary sinus, excision: - Respiratory mucosa and fibrovascular tissue with chronic inflammation 12/20/20: Skin, right face, excision: - Ruptured and inflamed squamous epithelial-lined cyst. 11/15/19: A. DISTAL DUODENUM, BIOPSY: - DUODENAL MUCOSA WITH NO SIGNIFICANT DIAGNOSTIC ALTERATIONS B. DUODENAL BULB, BIOPSY: - DUODENAL MUCOSA WITH NO SIGNIFICANT DIAGNOSTIC ALTERATIONS C. STOMACH, BIOPSY: - CHRONIC ACTIVE GASTRITIS - HELICOBACTER PYLORI IMMUNOHISTOCHEMICAL ANSHUL IS NEGATIVE D. ESOPHAGUS, BIOPSY: - SQUAMOUS MUCOSA WITH NO SIGNIFICANT DIAGNOSTIC ALTERATIONS E. TERMINAL ILEUM, BIOPSY: - MILD TO MODERATE ACTIVE ILEITIS F. ASCENDING COLON, BIOPSY: - COLONIC MUCOSA WITH NO SIGNIFICANT DIAGNOSTIC ALTERATIONS G. TRANSVERSE COLON, BIOPSY: - COLONIC MUCOSA WITH NO SIGNIFICANT DIAGNOSTIC ALTERATIONS H. DESCENDING COLON, BIOPSY: - COLONIC MUCOSA WITH NO SIGNIFICANT DIAGNOSTIC ALTERATIONS I. RECTUM-SIGMOID, BIOPSY: - FOCAL ACTIVE PROCTOCOLITIS 04/21/19: A. MIDDLE TURBINATE, SINUS SURGERY: - CHRONIC AND MILD ACUTE INFLAMMATION B. RIGHT ETHMOID, SINUS SURGERY: - CHRONIC AND MILD ACUTE INFLAMMATION C. MIDDLE TURBINATE, CILIARY BIOPSY: - PENDING ELECTRON MICROSCOPY Imaging: CT head angiography with contrast (08/15/21): EXAM: CT HEAD ANGIOGRAPHY WITH CONTRAST REASON FOR EXAM: 20 year old with history of Crohn's, ocular myositis, on immunosuppresive meds, past history of aspetic meningitis, now with severe headache and nausea after receiving a dose of IVIG, assessing for signs of increased intracranial pressure or thrombus TECHNIQUE: Thin section axial CT images through the brain were acquired following the intravenous administration of 95 mL Optiray 320, during the venous phase of contrast enhancement. Maximum intensity projection images were also acquired and reviewed in multiple planes. COMPARISON: MRI of brain from June 21, [address] of sinuses from 07/29/2021 FINDINGS: The ventricles and sulci are within normal limits in size. There is no intracranial hematoma or mass effect. Right maxillary sinus is completely opacified and moderate mucosal thickening is appreciated scattered through the remainder the paranasal sinuses. There has been apparent prior sinonasal surgery with medial maxillary antrostomies and partial ethmoidectomies. Arteries of the anterior and posterior circulation are normal in appearance. No hemodynamically significant stenosis, luminal irregularity, filling defect or aneurysm is identified. There is no arteriovenous malformation or enhancing parenchymal abnormality. There is expected opacification of the superior sagittal sinus, internal cerebral veins, vein of Mikael, straight sinus, transverse sinuses, and sigmoid sinuses. Both visualized internal jugular veins narrow at the level of the posterior bellies of the digastric muscles, a stable finding. IMPRESSION Negative CT venography of the head with contrast. No thrombus or stenosis involving deep cerebral veins of dural venous sinuses. CT abdomen/pelvis with IV and oral contrast (06/21/21): IMPRESSION 1. The patient is status post ileocolectomy with anastomosis. 2. No abnormal mucosal fold thickening, enhancement or inflammation is Evident. CT sinus stealth (05/23/21): IMPRESSION Chronic right-sided sinusitis, greatest in the maxillary sinus. Associated hyperostosis, atelectasis, and opacification of the ostiomeatal Unit. MRI head/orbits dual (06/21/20): IMPRESSION 1. Brain MRI: Unchanged multiple T2 bright nonenhancing mostly punctate foci within the frontal and parietal white matter compared to the study of July and May 27, 2018. This suggests the findings are chronic suggesting gliosis however static demyelinating foci are still not entirely excluded. 2. Orbital MRI: Normal CT sinus stealth (04/19/20): IMPRESSION FESS changes, with improved aeration compared to 2020. Moderate residual inflammation involves the atelectatic right maxillary sinus. CT chest without contrast (04/19/20): IMPRESSION 1. Interval resolution of left lower lobe pneumonia as compared to prior. No new consolidation or groundglass changes of the lungs. 2. Otherwise, there are several other unchanged subcentimeter pulmonary nodules. No new or progressive pulmonary nodule identified. CT chest (08/18/19): IMPRESSION 1. Interval resolution of left lower lobe pneumonia as compared to prior. No new consolidation or groundglass changes of the lungs. 2. Otherwise, there are several other unchanged subcentimeter pulmonary nodules. No new or progressive pulmonary nodule identified. Visit Diagnosis: 1. Orbital myositis, unspecified laterality 2. Crohn's disease of small and large intestines with complication 3. Immunosuppressed status 4. Chronic pansinusitis 5. Pulmonary nodules 6. Psoriasis 7. Less than 8 weeks gestation of Impression: Kings is a 22 yo with with a complex medical history that includes Crohn's disease (s/p ileocecal resection March 2016), orbital myositis, psoriasis, uveitis, pansinusitis (most recent FESS 03/2022), and pulmonary nodules. She has overall been stable on a combination of Stelara and yearly rituximab. The rituximab was started in 2016 due to orbital myositis and steroid dependence. She has not had a flare of orbital myositis since 2019. Her most recent rituximab dose was 1 year ago. I reviewed her outside labs and her B-cells have returned. She has remained asymptomatic. We discussed the risks and benefits of rituximab in . I explained that the primary concern was that the rituximab could affect the B-cells in the baby. Additionally, rituximab would increase the risk of a severe infection during and the post- period. Because of the risks, the consensus is to not use rituximab unless there are life threatening conditions. We also reviewed that this may be a good time to see if she still needs rituximab as she has not had a flare since 2019. Kings was comfortable with not re-dosing the rituximab at this time. We also discussed that she is at the age that I would typically be discussing transition to adult care. Given that she is , it would also be appropriate to have her see an adult academic affairs director in the case of a flare as adult rheumatologists have much more experience treating women during . She has some pain along the lateral aspect of her right hip. She has been told that it is greater trochanteric bursitis. Her tenderness was not specific to the greater trochanter, but she may still have a component of bursitis. I agree with the stretching regimen that she has been given. We discussed that if the pain worsened, we could consider ultrasound with possible injection of the bursa. Plan: Orders: Lab Orders Placed This Encounter None Imaging Orders Placed This Encounter None Medication Orders Placed This Encounter None Discussion and Guidance: 1. Will refer to Dr. Yo at [facility]. 2. Will hold off on rituximab since you are doing well. 3. Could ultrasound your hip if it bothered you more. 4. Stretches can be very helpful. Follow-up: Follow-up at [facility] with Dr. Yo documented in this encounter [facility] 01-26-2023 Instructions Ioana Otero MD - 01/26/2023 8:15 AM EDT Discussion and Guidance: 1. Will refer to Dr. Yo at [facility]. 2. Will hold off on rituximab since you are doing well. 3. Could ultrasound your hip if it bothered you more. 4. Stretches can be very helpful. Follow-up: Follow-up at [facility] with Dr. Yo How to reach Rheumatology 1. Sign up for [employer] to use a secure e-mail system for non-urgent issues (this is NOT checked on weekends). 2. For medical questions between 8 am - 4 pm, call our nurse line at [phone] option 2. 3. For medical questions at night, over the weekend or a holiday, call the hospital answering service telephone operator at [phone] and ask to talk to the Extract Operator. 4. To schedule or change an appointment, call Central Scheduling at [phone], press option 4, then option 7. 5. For other nonmedical questions, call a company secretary at [phone], option 4. 6. If you cannot reach a person and need information the same day, call the hospital answering service telephone operator at [phone] and ask to talk to the Extract Operator director radiation oncology. documented in this encounter [facility] 01-21-2023 Telephone encounter Note Received fax from [facility]. Printed and placed on Dr. Otero's door for review and/or signature. [facility] 01-21-2023 Miscellaneous Notes Received fax from [facility]. Printed and placed on Dr. Otero's door for review and/or signature. documented in this encounter [facility] 01-09-2023 Telephone encounter Note Pharmacy Note Reviewed medications for risk: -Rituximab: last dose received 01/2022. Will review registry data with primary rheumatology team. Per ACR guidelines, risk of B cell depletion if dosed in second half of . -Stelara (managed by GI): Dr. Slater recommended continuing with the January dose. Plans to then transition to adult steward/stewardess tourist class [facility] 01-09-2023 Miscellaneous Notes Pharmacy Note Reviewed medications for risk: -Rituximab: last dose received 01/2022. Will review registry data with primary rheumatology team. Per ACR guidelines, risk of B cell depletion if dosed in second half of . -Stelara (managed by GI): Dr. Slater recommended continuing with the January dose. Plans to then transition to adult steward/stewardess tourist class Received incoming call that Kings is . Diagnosis Orbital myositis Primary Extract Operator Ioana Otero How did patient find out about Home test Date of last menses 12/08/2022 Last dose of each teratogenic medication (methotrexate, leflunomide, cyclophosphamide, NSAID, ACEi) N/a - no recent NSAID's Do you have appt with SALAD COUNTER ATTENDANT? Yes, date of appt 02/04/2023 If underage, is family aware? N/A - mom is aware Best phone number for follow up [phone] Is it okay to leave message on preferred phone? Yes Recommendations for patient: 1. Hold teratogenic medication (methotrexate, leflunomide, cyclophosphamide, NSAID, ACEi) 2. Do not stop hydroxychloroquine or prednisone (if applicable) 3. Start vitamin 4. Follow up with other prescribers/clinics to evaluate non-rheumatology medications Recommendation for nurses: Notify team : Primary academic affairs director, Velia Hernandes Recommendations for providers: 1. Order serum test, if needed 2. Further evaluate current medications 3. Refer to [facility], if needed 4. Follow up with patient within 24 hours Patient is in the process of informing all [facility] specialists. She has talked to GI and received guidance. She is taking a vitamin. Ideally Kings would like to keep her October follow-ups here at [facility] and then transition to adult rheum/GI closer to home. Dr. Otero/Geovanna please advise documented in this encounter [facility] 01-09-2023 Telephone encounter Note Received incoming call that Kings is . Diagnosis Orbital myositis Primary Extract Operator Ioana Otero How did patient find out about Home test Date of last menses 12/08/2022 Last dose of each teratogenic medication (methotrexate, leflunomide, cyclophosphamide, NSAID, ACEi) N/a - no recent NSAID's Do you have appt with SALAD COUNTER ATTENDANT? Yes, date of appt 02/04/2023 If underage, is family aware? N/A - mom is aware Best phone number for follow up [phone] Is it okay to leave message on preferred phone? Yes Recommendations for patient: 1. Hold teratogenic medication (methotrexate, leflunomide, cyclophosphamide, NSAID, ACEi) 2. Do not stop hydroxychloroquine or prednisone (if applicable) 3. Start vitamin 4. Follow up with other prescribers/clinics to evaluate non-rheumatology medications Recommendation for nurses: Notify team : Primary academic affairs director, Velia Hernandes Recommendations for providers: 1. Order serum test, if needed 2. Further evaluate current medications 3. Refer to [facility], if needed 4. Follow up with patient within 24 hours Patient is in the process of informing all [facility] specialists. She has talked to GI and received guidance. She is taking a vitamin. Ideally Kings would like to keep her October follow-ups here at [facility] and then transition to adult rheum/GI closer to home. Dr. Otero/Geovanna please advise [facility] 12-26-2022 Telephone encounter Note TP updated, flagged ready for PA. [facility] 12-26-2022 Miscellaneous Notes TP updated, flagged ready for PA. Rituximab added back into the therapy plan. Informed by Geovanna Centeno with SP that Ritux no longer in TP. Dr. tOero please re-add medication/update TP, and inform nursing when complete. Then will update SP to re-PA. Thank you! Sent referral back to Pharmacy PA for Infusions Team via WQ to be re-authorized. Dr. Otero FYI only (nothing needed from you at this time- will alert you with any issues with the PA) Per encounter dated 02/04/22, referral for PA for Rituximab deferred in WQ until 12/2022. Dr. Otero- referral has shown up in WQ. Rituximab PA 06/2022. Noted per last OV note dated 12/24/2021 that patient required annual Rituximab. Please advise if annual Rituximab plan is to continue, so referral can be sent back to SP to PA if needed. Thank you! documented in this encounter [facility] 12-26-2022 Telephone encounter Note Rituximab added back into the therapy plan. [facility] Work Phone: 12-23-2022 Telephone encounter Note Signed. Thank you. [facility] 12-23-2022 Miscellaneous Notes Signed. Thank you. Stelara refill request received from pharmacy. Pended for review. OV scheduled for 02/18/23. Labs recently ordered to be obtained before the visit. documented in this encounter [facility] 12-23-2022 Telephone encounter Note Stelara refill request received from pharmacy. Pended for review. OV scheduled for 02/18/23. Labs recently ordered to be obtained before the visit. [facility] 12-19-2022 Telephone encounter Note Informed by Geovanna Centeno with SP that Ritux no longer in TP. Dr. Otero please re-add medication/update TP, and inform nursing when complete. Then will update SP to re-PA. Thank you! [facility] 12-19-2022 Telephone encounter Note Sent referral back to Pharmacy PA for Infusions Team via WQ to be re-authorized. Dr. Otero FYI only (nothing needed from you at this time- will alert you with any issues with the PA) [facility] 12-18-2022 History of Present illness Narrative Prior Authorization for Specialty Medication Clinic: GI Diagnosis: K50.819 - Crohns Medication name: Stelara Medication dose: 90mg Medication frequency: Every 8 weeks Reason for PA: Renewal Kings's Prior Authorization has been APPROVED. Insurance #1: [facility] PA Type: Pharmacy PA Status: Approved Approved from: 12/18/22 Approved to: 12/18/23 PA #: [id number] Filling Pharmacy: Other ([facility]) Prior Authorization for Specialty Medication Clinic: GI Diagnosis: K50.819 - Crohns Medication name: Stelara Medication dose: 90mg Medication frequency: Every 8 weeks Reason for PA: Sue Rogers'antonia Prior Authorization has been SUBMITTED. Insurance #1: [facility] PA Type: Pharmacy PA Status: Submitted Information submitted: Office Note Method of submission : CoverMyMeds documented in this encounter [facility] 12-17-2022 Telephone encounter Note Per encounter dated 02/04/22, referral for PA for Rituximab deferred in WQ until 12/2022. Dr. Otero- referral has shown up in WQ. Rituximab PA 06/2022. Noted per last OV note dated 12/24/2021 that patient required annual Rituximab. Please advise if annual Rituximab plan is to continue, so referral can be sent back to [facility] to PA if needed. Thank you! [facility] 11-21-2022 Telephone encounter Note Pt called to change yearly followup appointment to a different day in order to line up with other appointments due to having a long commute. Pt rescheduled for 01/[address] [facility] 11-21-2022 Miscellaneous Notes Pt called to change yearly followup appointment to a different day in order to line up with other appointments due to having a long commute. Pt rescheduled for 01/[address] Aly. documented in this encounter [facility] 09-24-2022 Telephone encounter Note Patient called back to schedule 01-05-23 elissa lee, post op made, pt aware of pat call [facility] Work Phone: 09-24-2022 Miscellaneous Notes Patient called back to schedule 01-05-23 elissa lee, post op made, pt aware of pat call documented in this encounter [facility] 09-04-2022 History of Present illness Narrative Per [facility] R[facility] Letter #9, [facility] requested clinicals be sent. Clinicals sent via fax on 09.03.2022. documented in this encounter [facility] 07-16-2022 History of Present illness Narrative Faxed [facility] reapplication to [phone]. Scanned into the chart. documented in this encounter [facility] 05-05-2022 History of Present illness Narrative MD Rosy Hernandez[address] [place] [address] 21 year old female here today for post op. 03/20/2022 Turbinate and sinus surgery. Saline rinses and flonase prn. No new concerns. [facility] PEDIATRIC OTOLARYNGOLOGY FOLLOW UP VISIT NOTE MD Rosy Hernandez[address] [place] [address] Kings Hatfield is a 21 year female who was seen in the Pediatric Otolaryngology Clinic for an established patient visit. CHIEF COMPLAINT: Her chief complaint is Surgical Followup INFORMANT: The history was obtained from HISTORY OF PRESENT ILLNESS: Kings is here today for follow up of FESS Doing well No epistaxis. Other pertinent ENT HPI: None Pertinent Medical/Surgical/Social History, Medications, Allergies: None Pertinent Physical Examination: Vital Signs: Vitals: 05/05/22 1104 Pulse: 84 Weight: 81.6 kg (179 lb 14.3 oz) Height: 162 cm (63.78 ) Body mass index is 31.09 kg/m . Facility age limit for growth percentiles is 18 years. Constitutional General Appearance: well developed and well nourished and in no acute distress Speech: age appropriate Head & Face: normocephalic, symmetric, facial strength 1/6 bilaterally, facial palpation without tenderness over skeleton and sinuses, facial sensation intact Eyes: no eyelid swelling, no conjunctival injection or exudate, pupils equal round and reactive to light Ears: Right EXT: normal appearing pinna Right EAC: patent Right TM: normal landmarks and mobility Left EXT: normal appearing pinna Left EAC: patent Left TM: normal landmarks and mobility Nose: Dorsum dorsum midline, no scars or lesions Nasal mucosa: no edema. Rhinorrhea: no drainage Septum: midline Turbinates: no inferior turbinate hypertrophy Oral Cavity, Mouth, Pharynx Lips: normal mucosa and red lip Oral mucosa: moist, pink Palate: intact, mobile, no hard or soft palate lesions Pharynx: intact mobile Tongue: tongue: intact, full range of motion; floor of mouth: no lesions Tonsil size: nonobstructive Neck: Trachea: midline Thyroid: no palpable nodules or irregularities Salivary glands: No parotid or submandibular masses or tenderness noted. Lymphatic Nodes: no palpable nodes Respiratory: Auscultation: did not examine Effort: no retractions Voice: normal clarity and volume Neuro/ Psych Cranial Nerves: CN II-XII intact CHART REVIEW: Audiogram: not performed Radiology: None Labs: None Outside medical record review: None [facility] chart review: Previous ENT notes reviewed Discussion of patient care/ tests with other professional/s: No Procedures Performed: None RISK ASSESSMENT:` None Bleeding Risk Score Kings - Bleeding Risk Score: 1 (07/15/2021 11:20 AM) Minimal risk of morbidity from additional testing or management Pertinent Social Determinants of Health: n/a VISIT DIAGNOSIS/ASSESSMENT: 1. Orbital myositis, unspecified laterality 2. Chronic sinusitis, unspecified location PLAN/MANAGEMENT OPTIONS: F/U PRN documented in this encounter [facility] 05-05-2022 Instructions Yoana Farrar RN - 05/05/2022 11:30 AM EST Department of Otolaryngology (ENT) Patient Instructions ENT Nurse Triage Line: [phone] (Thursday through Thursday 8:00 am - 4:00 pm) Please call the ENT Nurse Triage Line if you need to speak to a nurse for any ENT- related medical concerns prior to your next appointment. [facility] Reiki Practitioner: [phone] (Weekdays after 4:00 pm and on Weekends) If you have urgent ENT concerns for your child after hours that can t wait until our return to the office, please call the hospital answering service telephone operator and ask to speak to the ENT physician director radiation oncology. [facility] Central [phone] (Thursday through Thursday 7:30 am -5:30 pm) Please call Central Scheduling and follow the prompts to schedule an ENT appointment if you did not schedule an appointment today, or if you need to cancel and reschedule a future appointment. For more information about the Department of Otolaryngology (Ear, Nose and Throat) at [facility], please visit our website at: [email or web address] You do not need to schedule an ENT office visit at this time but we are happy to see you in the future for any additional ENT concerns. Please call Central Scheduling at [phone] and follow the prompts to schedule an ENT office visit should you need a future appointment in the ENT clinic. Call us at [phone] to speak to a nurse if you should have any additional ENT- related questions or concerns after today s visit. documented in this encounter [facility] 04-08-2022 Telephone encounter Note Telephone Follow-Up Excision of Soft Benign Tissue Mass Date of Surgery: 03/20/22 Date of Call: 04/08/2022 Overall Status: excellent Energy Level: excellent Bowel Movements: Normal Incision painful or tender: No Presence of fever > 101.5: No Discharge / Redness at incision: No Color of drainage if noted: absent Incision well healed / flat: Yes Dressing is off: Yes Back in school / daycare: No Comments / Questions from parents: If parents / patient has concerns: No concerns [facility] 04-08-2022 Miscellaneous Notes Telephone Follow-Up Excision of Soft Benign Tissue Mass Date of Surgery: 03/20/22 Date of Call: 04/08/2022 Overall Status: excellent Energy Level: excellent Bowel Movements: Normal Incision painful or tender: No Presence of fever > 101.5: No Discharge / Redness at incision: No Color of drainage if noted: absent Incision well healed / flat: Yes Dressing is off: Yes Back in school / daycare: No Comments / Questions from parents: If parents / patient has concerns: No concerns documented in this encounter [facility] 03-18-2022 Telephone encounter Note Status denied. A possible peer to peer review with ENT is possible. Awaiting to hear from them [facility] 03-18-2022 Miscellaneous Notes Status denied. A possible peer to peer review with ENT is possible. Awaiting to hear from them Status checked at this time, denied Submitted appeal, ID is [id number] Received denial on [employer] web portal. Spoke with patient relations representative on the phone and was told to fax clinicals for reconsideration. Clinicals faxed to [phone]. Authorization pending via [employer]. Pediatric Surgery Pre-Schedule/Certification Information Patient Information: Name: Kings Hatfield Date of : 2000 Case and Schedule Information: Surgeon: Dr. Lakisha Narayan Case: ENT Admit Type: OP Location: OR CPT: 84446 Procedure or Exam Description: EXCISION OF SKIN AND SUBCUTANEOUS TISSUE ICD10 Code: L 72.3 Scheduled Date: 03/20/22 [address] in this encounter [facility] 03-14-2022 Telephone encounter Note Status checked at this time, denied Submitted appeal, ID is [id number] [facility] 03-11-2022 Telephone encounter Note Received denial on [employer] portal. Spoke with patient relations representative on the phone and was told to fax clinicals for reconsideration. Clinicals faxed to [phone]. [facility] 02-27-2022 Telephone encounter Note Authorization pending via [employer]. [facility] 02-06-2022 Telephone encounter Note Pediatric Surgery Pre-Schedule/Certification Information Patient Information: Name: Kings Hatfield Date of : 2000 Case and Schedule Information: Surgeon: Dr. Lakisha Narayan Case: ENT Admit Type: OP Location: OR CPT: 65145 Procedure or Exam Description: EXCISION OF SKIN AND SUBCUTANEOUS TISSUE ICD10 Code: L 72.3 Scheduled Date: 03/20/22 [facility] 08-06-2021 Note HISTORY: Eye swellin g PROCEDURE: [employer] VCT 64. Without IV contrast, images of the orbit, sella and ear fossa were performed. FINDINGS: No significant proptosis, intraconal or extraconal mass. No osseous erosive changes. No significant periorbital soft tissue swelling. Near total opacification of the bilateral maxillary and left sphenoid sinuses. Mild to moderate mucosal thickening (probable small component of fluid) within the right sphenoid and bilateral frontal sinuses. Moderate mucosal thickening and fluid within the bilateral ethmoid air cells (left greater than right). Mild rightward nasal septal deviation. Soft tissue fullness neighboring both middle meati, contiguous on both sides with the opacified bilateral obstructed ostia. Grossly normal cranial contents. Normal mastoid air cell and tympanic cavity aeration. IMPRESSION: 1. Normal intraorbital contents. 2. Pansinusitis. Report reported and signed by Herbie Pace on 08/06/2021 1523 [facility] Process Equipment Operator Evaluation note Diagnosis Orbital myositis, unspecified laterality- Primary Chronic sinusitis, unspecified location [facility] Diagnosis Chronic sinusitis, unspecified location- Primary documented in this encounter [facility] note* Diagnosis Iron deficiency Other disorders of iron metabolism [facility] Diagnosis Orbital myositis, unspecified laterality- Primary Crohn's disease of small and large intestines with complication Immunosuppressed status Unspecified disorder of immune mechanism Chronic pansinusitis Other chronic sinusitis Pulmonary nodules Other nonspecific abnormal finding of lung field Psoriasis Other psoriasis Less than 8 weeks gestation of state, incidental [facility] this [facility] Diagnosis Crohn's disease of both small and large intestine with complication- Primary Regional enteritis of small intestine with large intestine Orbital myositis, unspecified laterality 11 weeks gestation of state, incidental [facility] Diagnosis Crohn's disease of both small and large intestine with complication- Primary Regional enteritis of small intestine with large intestine [facility] Maternal Crohn's disease affecting in second trimester ([facility])- Primary History of chronic ulcerative colitis 19 weeks gestation of [facility] Diagnosis Viral URI- Primary Acute upper respiratory infections of unspecified site 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, 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) Crohns disease of both small and large intestine with unspecified complications (K50.819) Bilateral impacted cerumen Impacted cerumen documented [facility]* Diagnosis Maternal Crohn's disease affecting in second trimester ([facility])- Primary History of chronic ulcerative colitis [facility] Diagnosis Crohn's disease in remission- Primary [facility] Diagnosis Orbital myositis, unspecified laterality- Primary Crohn's disease of small and large intestines with complication Immunosuppressed status Unspecified disorder of immune mechanism Chronic pansinusitis Other chronic sinusitis Pulmonary nodules Other nonspecific abnormal finding of lung field Psoriasis Other psoriasis Less than 8 weeks gestation of state, incidental Left leg swelling Psoriasis of scalp Other psoriasis [facility]* Rubia Hernandez NP - 05/26/2023 7:30 PM ESTAssociated Order(s): Ear Cerumen Removal Post-Procedure Diagnose(s): Bilateral impacted cerumen Kings Hatfield is a 22 y.o. female presents with chief complaint of Earache HPI: Patient is here for earache. Started last night, at work had a CONTRACT ANALYST do ear flush, has tried heat, andlaying down, still having muffled left ear. She also has URI, sneezing, cough, congestion, sore throat. She has tested for covid/flu, and strep both came back negative. She is taking sudafed, benadryl and robitussin OTC. Earache SUBJECTIVE: MEDICATIONS: Current Outpatient Medications Medication Instructions acetaminophen (Tylenol) 325 MG tablet 2 tablets, Oral, Every 6 hours PRN nitrofurantoin (macrocrystal-monohydrate) (MACROBID) 100 mg, Oral, 2 times daily MV-Min-Fe Fum-FA-DHA ( 1 PO) Oral riTUXimab (Rituxan) 100 MG/10ML chemo injection as directed Intravenous ustekinumab (STELARA) 90 mg, Subcutaneous REVIEW OF SYMPTOMS: Review of Systems HENT: Positive for ear pain. OBJECTIVE: Visit Vitals BP 110/60 (BP Location: Left arm, Patient Position: Sitting, BP Cuff Size: Adult) Pulse 104 Ht 5' 3 Wt 197 lb 6.4 oz LMP 12/08/2022 (Exact Date) SpO2 99% BMI 34.97 kg/m OB Status Smoking Status Never BSA 1.99 m Physical Exam Vitals reviewed. Constitutional: Appearance: Normal appearance. HENT: Head: Normocephalic and atraumatic. Right Ear: There is impacted cerumen. Left Ear: There is impacted cerumen. Nose: Mucosal edema, congestion and rhinorrhea present. Rhinorrhea is clear. Mouth/Throat: Mouth: Mucous membranes are moist. Comments: PND Eyes: Pupils: Pupils are equal, round, and reactive to light. Cardiovascular: Rate and Rhythm: Normal rate and regular rhythm. Pulses: Normal pulses. Heart sounds: Normal heart sounds. Pulmonary: Effort: Pulmonary effort is normal. Breath sounds: Normal breath sounds. Musculoskeletal: Cervical back: Normal range of motion and neck supple. Lymphadenopathy: Cervical: No cervical adenopathy. Skin: General: Skin is warm and dry. Capillary Refill: Capillary refill takes less than 2 seconds. Findings: No rash. Neurological: General: No focal deficit present. Mental Status: She is alert and oriented to person, place, and time. Patient ID: [place] is a 22 y.o. female. Ear Cerumen Removal Date/Time: 05/26/2023 5:46 PM Performed by: Rubia Hernandez NP Authorized by: Rubia Hernandez NP Consent: Consent obtained: Verbal Consent given by: Patient Risks, benefits, and alternatives were discussed: yes Risks discussed: Incomplete removal, TM perforation and dizziness Alternatives discussed: No treatment [place] protocol: Patient identity confirmed: Verbally with patient Procedure details: Location: L ear and R ear Procedure type: irrigation Procedure outcomes: cerumen removed Post-procedure details: Inspection: TM intact Hearing quality: Normal Procedure completion: Tolerated well, no immediate complications ASSESSMENT AND PLAN: Assessment/Plan Diagnoses and all orders for this visit: Viral URI -Most likely viral in nature, will need to run its course. Educated patient viral infections such as colds/flus do not respond to abx and typically do not begin to improve until 7-10 days into the illness. Discussed symptomatic treatment with patient. Humidifier at bedside to moisten area. Push fluids. Rest. Good handwashing. Follow up if symptoms do not improve. To ER for markedly worsening symptoms. 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) -Followed by shell molder Crohns disease of both small and large intestine with unspecified complications (K50.819) -Followed by GI Bilateral impacted cerumen Other orders - Ear Cerumen Removal documented in this encounterWestern Missouri Medical CenterInstructionsNot on filedocumented in this encounterProSelect [facility] SystemInstructionsNot on filedocumented in this encounterCincinnati Shrin[facility] SystemInstructionsNot on filedocumented in this encounterParkview HealthReason for referral (narrative)* Consultation (Routine) - New Request Specialty Diagnoses / Procedures Referred By Wayne liz Referred To Contact Rheumatology Diagnoses Orbital myositis, unspecified laterality Crohn's disease of small and large intestines with complication Immunosuppressed status Chronic pansinusitis Pulmonary nodules Psoriasis Less than 8 weeks gestation of Ioana Otero MD [address] [place] [address] Referral ID Status Reason Start Date Expiration Date Visits Requested Visits Authorized [id number] New Request Specialty Services Required 3 [address] [facility] for visit Narrative* Treatment Plan and Therapy Plan (Routine) - Authorized Specialty Diagnoses / Procedures Referred By Contmario t Referred To Contact Diagnoses Crohn's disease of both small and large intestine with complication (HCC) Procedures [place] GAMUNEX-C/GAMMAKED Shakira Orantes MD [address] [facility] [address] [place] [address] [address] Med Surg [address] [place] [address] Referral ID Status Reason Start Date Expiration Date V isits Requested Visits Authorized [id number] Authorized 08/09/2021 09/08/2021 1 1 [employer] Phone: Summary Purpose Family History No Family History Records FoundNo Family History Records FoundNo Family History Records FoundNo Family History Records FoundNo Family History Records FoundNo Family History Records FoundNo Family History Records FoundNo Family History Records FoundNo Family History Records Found Advance Directives No Advanced Directives Records FoundDocuments on File Type Date Recorded Patient 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 Expl 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 ACP-Advance Directive ACP-Power of Safety Teacher Latest Code Status on File Code Status Date Activated Date Inactivated Comments Full Code 07/26/2014 11:40 PM 07/28/2014 10:19 PM Full Code 07/19/2014 7:32 PM 07/25/2014 8:24 PM Full Code 07/02/2014 7:22 PM 07/07/2014 12:22 PM Full Code 04/20/2014 11:13 AM 04/26/2014 3:37 PM Full Code 03/24/2014 7:43 PM 03/25/2014 12:50 PM Documents on File Type Date Recorded Patient 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 Expl anation ACP-Advance Directive ACP-Power of Safety Teacher Latest Code Status on File Code Status Date Activated Date Inactivated Comments Full Code 07/26/2014 11:40 PM 07/28/2014 10:19 PM Full Code 07/19/2014 7:32 PM 07/25/2014 8:24 PM Full Code 07/02/2014 7:22 PM 07/07/2014 12:22 PM Full Code 04/20/2014 11:13 AM 04/26/2014 3:37 PM Full Code 03/24/2014 7:43 PM 03/25/2014 12:50 PM Reason for Referral Specialty Diagnoses / Procedures Referred By Wayne liz Referred To Contact Hematology Procedures Hematology Oncology Clinic Appointment Request Ny Cool APN [address] [place] [address] Referral ID Status Reason Start Date Expiration Date Visits Requested Visits Authorized [id number] Authorization Not Required 3 1 1 Specialty Diagnoses / Procedures Referred By Contac t Referred To Contact Maternal and Medicine Diagnoses Maternal Crohn's disease affecting in second trimester ([facility]) History of chronic ulcerative colitis Procedures US [facility] with or without consult Ruchi Carmona MD [address] [facility], [facility] [place] [address] [facility] Maternal Med [address] [place] [address] Referral ID Status Reason Start Date Expiration Date V isits Requested Visits Authorized [id number] Pending Review 06/01/2023 05/31/2024 1 1 Specialty Diagnoses / Procedures Referred By Contac t Referred To Contact Diagnoses Left leg swelling Procedures VASC DUPLEX VENOUS EXTREMITY LOWER LEFT [place] DUPLEX EXTREM VENOUS,[facility] OR LTD Velia Yo MD [address] [place] [phone] Referral ID Status Reason Start Date Expiration Date V isits Requested Visits Authorized [id number] New Request 08/06/2023 08/30/2024 1 1 Additional Source Comments INFORMATION SOURCE (unrecogn ized section and content) DATE CREATED AUTHOR 01/17/2020 [facility] DATE CREATED AUTHOR AUTHOR'S ORGANIZ ATION 05/06/2021 [facility] DATE CREATED AUTHOR AUTHOR'S ORGANIZ ATION 08/14/2021 [facility] DATE CREATED AUTHOR AUTHOR'S ORGANIZ ATION 02/15/2022 [facility] pital DATE CREATED AUTHOR AUTHOR'S ORGANIZ ATION 04/05/2022 [facility] dical Specialist DATE CREATED AUTHOR AUTHOR'S ORGANIZ ATION 01/30/2023 [facility] DATE CREATED AUTHOR AUTHOR'S ORGANIZ ATION 07/05/2023 [facility] DATE CREATED AUTHOR AUTHOR'S ORGANIZ ATION 08/10/2023 [facility] DATE CREATED AUTHOR AUTHOR'S ORGANIZ ATION 09/02/2023 [facility] dical Specialists [place] Care Teams (unrecognized sec tion and content) Sand Car Worker Relationship Specialty Start Date End [place] [address] PCP - General 08/23/12 Sand Car Worker Relationship Specialty Start Date End Date GraciaChey Aragon MD [address] [place] [id number] PCP - General Family Medicine 08/06/21 Sand Car Worker Relationship Specialty Start Date End Date Chey Aragon MD [address] [place] [id number] PCP - General Family Medicine 01/30/20 Sand Car Worker Relationship Specialty Start Date End Date Chey Aragon MD [address] [place] [id number] PCP - General Family Medicine 01/30/20 Sand Car Worker Relationship Specialty Start Date End Date Chey Aragon MD [address] [place] [phone] PCP - General Family Medicine 01/30/20 Sand Car Worker Relationship Specialty Start Date End Date Chey Aragon MD [address] [place] [id number] PCP - General Family Medicine 01/30/20 Sand Car Worker Relationship Specialty Start Date End Date Chey Aragon MD [address] [place] [phone] PCP - General Family Medicine 01/30/20 Sand Car Worker Relationship Specialty Start Date End Date Chey Aragon MD [address] [place] [id number] PCP - General Family Medicine 01/30/20 Sand Car Worker Relationship Specialty Start Date End Date Chey Aragon MD [address] [place] [address] PCP - General Family Medicine 01/30/20 Sand Car Worker Relationship Specialty Start Date End Date Chey Aragon MD [address] [place] [address] PCP - General Family Medicine 01/30/20 Sand Car Worker Relationship Specialty Start Date End Date Chey Aragon MD [address] [place] [address] PCP - General Family Medicine 01/30/20 Sand Car Worker Relationship Specialty Start Date End Date Chey Aragon MD [address] [place] [address] PCP - General Family Medicine 01/30/20 Sand Car Worker Relationship Specialty Start Date End Date Chey Aragon MD [address] [place] [address] PCP - General Family Medicine 01/30/20 Sand Car Worker Relationship Specialty Start Date End Date Chey Aragon MD [address] [place] [address] PCP - General Family Medicine 01/30/20 Sand Car Worker Relationship Specialty Start Date End Date Chey Aragon MD [address] [place] [address] PCP - General Family Medicine 01/30/20 Sand Car Worker Relationship Specialty Start Date End Date Chey Aragon MD [address] [place] [address] PCP - General Family Medicine 01/30/20 Sand Car Worker Relationship Specialty Start Date End Date Chey Aragon MD [address] [place] [address] PCP - General Family Medicine 01/30/20 Sand Car Worker Relationship Specialty Start Date End Date Chey Aragon MD [address] [place] [address] PCP - General Family Medicine 04/29/22 Sand Car Worker Relationship Specialty Start Date End Date Chey Aragon MD [address] [place] [address] PCP - General Family Medicine 04/29/22 Sand Car Worker Relationship Specialty Start Date End Date Chey Aragon MD [address] [place] [address] PCP - General Family Medicine 04/29/22 Sand Car Worker Relationship Specialty Start Date End Date Chey Aragon MD [address] [place] [address] PCP - General Family Medicine 10/27/22 Chey Aragon MD [address] [place] [address] PCP - [facility] 04/13/23 Serene Alfred NP [address] [place] [address] Nurse Practitioner Family [facility] 10/27/22 Sand Car Worker Relationship Specialty Start Date End Date Chey Aragon MD [address] [place] [address] PCP - General [facility] 10/27/22 Chey Aragon MD [address] [place] [address] PCP - [facility] 04/13/23 Serene Alfred NP [address] [place] [address] Nurse Practitioner [facility] 10/27/22 Sand Car Worker Relationship Specialty Start Date End Date Chey Aragon MD [address] [place] [address] PCP - General [facility] 04/29/22 Scheduled Active and Recently Administ ered Medications (unrecognized section and content) Medication Order 08/11/2021 08/12/2021 08/13/2021 immune globulin (GAMMAGARD) 10% solution 35 g (COMPLETED) 35 g, IntraVENous, ONCE, 1 dose, On Thu08/13/21 at 1000, Reason for Non-Formulary Order: approved form insurance for Gammagard, Pharmacy to insert product specific administration instructions here. 1132 (New Bag - Prov ider: Loraine Walter, RN)1844 (Stopped - Provider: Loraine Walter RN) PRN Medication Order 08/11/2021 08/12/2021 08/13/2021 0.9 % sodium chloride infusion IntraVENous, at 5-250 mL/hr, PRN, if patient receiving piggyback infusions and maintenance fluids are not ordered OR KVO fluids to protect IV site / prevent frequent line interruptions/ long duration, Starting on Thu08/13/21 at 0920, For 18 hours, For piggyback infusion, administer at same rate as piggyback for a total of 25 mL. Enter 25 mL into dose field and piggyback rate into rate field of order. If piggyback is infusing at a rate less than 100 mL/hr, enter 25 mL into dose field and 100 mL/hr into rate field of order. For KVO fluids, enter rate of 20 mL/hr or less into rate field of order. 1130 (New Bag - Prov ider: Loraine Walter RN) acetaminophen (TYLENOL) tablet 325 mg 325 mg, Oral, EVERY 4 HOURS PRN, Starting on Thu08/13/21 at 0918, Until Discontinued, Pain Mild (1-3), Maximum dose of acetaminophen is 4000 mg from all sources in 24 hours., 30 min prior to infusion 1054 (Given - Provid er: Loraine Walter RN) diphenhydrAMINE (BENADRYL) tablet 25 mg 25 mg, Oral, EVERY 4 HOURS PRN, Starting on Thu08/13/21 at 0917, Until Discontinued, Itching, 30 min prior to infusion 1054 (Given - Provid er: Loraine Walter RN) ondansetron (ZOFRAN) tablet 4 mg 4 mg, Oral, EVERY 4 HOURS PRN, Starting on Thu08/13/21 at 0919, Until Discontinued, Nausea, Vomiting, 30 min prior to infusion 1055 (Given - Provid er: Loraine Walter RN) Reason for Visit (unrecogniz ed section and content) Reason Onset Date Comments Surgical Followup 04/08/2022 Reason Comments Surgical Followup Reason Onset Date Comments Pre-certification 02/06/2022 Reason Onset Date Comments Schedule Surgery 09/24/2022 Reason Onset Date Comments Change Appointment 11/21/2022 Reason Onset Date Comments Refill Request 12/23/2022 Reason Onset Date Comments Coordination Of Care 12/17/2022 Rituximab Reason Comments Sinus Problem F/u recurrent sinusi tis Reason Comments Low Blood Count Specialty Diagnoses / Procedures Referred By Wayne t Referred To Contact Hematology Procedures Hematology Oncology Clinic Appointment Request Ny Cool APN [address] [place] [address] Referral ID Status Reason Start Date Expiration Date Visits Requested Visits Authorized [id number] Authorization Not Required 10/10/202 3 1 1 Reason Comments FOLLOW-UP Reason Onset Date Comments Update 01/09/2023 Reason Onset Date Comments Results 01/21/2023 Reason Comments New Patient Specialty Diagnoses / Procedures Referred By Contac t Referred To Contact Gastroenterology Diagnoses Crohn's disease of both small and large intestine with complication Alexx Slater MD [address] [place] [address] [facility] [address] [place] [phone] Referral ID Status Reason Start Date Expiration Date V isits Requested Visits Authorized [id number] Pending Review 01/16/2023 02/10/2024 1 1 Reason Onset Date Comments Case Discussion 03/03/2023 Transitioned to adult GI at [facility] Reason Comments Venipuncture Reason Comments HX Colitis Crohn's Disease Reason Comments Earache Reason Comments Follow-up Crohn's Disease Reason Comments New Patient Specialty Diagnoses / Procedures Referred By Contac t Referred To Contact Rheumatology Diagnoses Orbital myositis, unspecified laterality Crohn's disease of small and large intestines with complication Immunosuppressed status Chronic pansinusitis Pulmonary nodules Psoriasis Less than 8 weeks gestation of Ioana Otero MD [address] [place] [address] Velia Yo MD [address] [place] [phone] Referral ID Status Reason Start Date Expiration Date V isits Requested Visits Authorized [id number] Pending Review 02/05/2023 03/01/2024 1 1 FOR RECORDS PERTAINING TO PATIENTS WHO ARE OR HAVE BEEN ENROLLED IN A CHEMICAL DEPENDENCY/SUBSTANCEABUSE PROGRAM, SOME INFORMATION MAY BE OMITTED. This clinical summary was aggregated from multiple sources. Caution should be exercised in using it in the provision of clinical care. This summary normalizes information from multiple sources, and as a consequence, information in this document may materially change the coding, format and clinical context of patient data. In addition, data may be omitted in some cases. CLINICAL DECISIONS SHOULD BE BASED ON THE PRIMARY CLINICAL RECORDS. [employer] provides no warranty or guarantee of the accuracy or completeness of information in this document.
[2023-09-03 05:58] LABS: Bilirubin Urine NEGATIVE (NEGATIVE); Blood Urine NEGATIVE (NEGATIVE); Clarity Urine CLEAR (CLEAR); Color Urine YELLOW (YELLOW); Glucose Urine UA NEGATIVE (NEGATIVE); Ketones Urine NEGATIVE (NEGATIVE); Leukocyte Esterase Urine TRACE (NEGATIVE); Nitrite Urine NEGATIVE (NEGATIVE); Protein Urine NEGATIVE (NEG/TRACE); Specific Gravity Urine 1.025 (1.005-1.025); Urobilinogen Urine 0.2 EU/dL (0.2-1.0)
[2023-09-03 05:59] LABS: Basophils Percent Auto 0.3 % (0.2-2.0); Eosinophils Absolute Auto 0.2 10^3/uL (0.0-0.7); Eosinophils Percent Auto 1.7 % (0.9-7.0); Hematocrit 30.9 % (36.0-48.0); Hemoglobin 9.6 g/dL (12.0-16.0); Immature Granulocytes Abs Auto 0.22 10^3/uL (0.00-0.03); Immature Granulocytes Pct Auto 1.9 % (0.0-0.5); Lymphocytes Absolute Auto 1.6 10^3/uL (1.2-3.8); Lymphocytes Percent Auto 13.2 % (20.5-60.0); Mean Corpuscular HGB Conc 31.1 g/dL (29.9-35.2); Mean Corpuscular Hemoglobin 26.5 pg (26.7-34.0); Mean Corpuscular Volume 85.4 fL (81.0-99.0); Mean Platelet Volume 9.8 fL (9.5-13.5); Monocytes Absolute Auto 0.8 10^3/uL (0.3-0.8); Monocytes Percent Auto 6.7 % (1.7-12.0); Neutrophils Percent Auto 76.2 % (43.0-75.0); Platelet Count 189 10^3/uL (150-450); Red Blood Count 3.62 10^6/uL (4.20-5.40); Red Cell Distribution Width 16.6 % (11.0-15.0); White Blood Count 11.8 10^3/uL (4.0-11.0)
[2023-09-03 06:08] LABS: Amphetamine Screen Urine NEGATIVE (NEGATIVE); Barbiturates Screen Urine NEGATIVE (NEGATIVE); Benzodiazepines Screen Urine NEGATIVE (NEGATIVE); Buprenorphine Screen Urine NEGATIVE (NEGATIVE); Cannabinoid Screen Urine NEGATIVE (NEGATIVE); Cocaine Screen Urine NEGATIVE (NEGATIVE); Methadone Screen Urine NEGATIVE (NEGATIVE); Methamphetamines Screen Urine NEGATIVE (NEGATIVE); Opiate Screen Urine NEGATIVE (NEGATIVE); Oxycodone Screen Urine NEGATIVE (NEGATIVE); Phencyclidine Screen Urine NEGATIVE (NEGATIVE); Tricyclic Antidepressant Urine NEGATIVE (NEGATIVE)
[2023-09-03] MEDS: LACTATED RINGER'S SOLUTION 1,000 ML 125 ML IV ×2 (06:09→06:51)
[2023-09-03 06:14] LABS: Bacteria Urine NONE SEEN #/HPF (NONE SEEN); Crystals Seen? None Seen #/HPF (None Seen); Mucus Urine MODERATE (NONE SEEN); RBC Urine NONE SEEN #/HPF (0-2); Squamous Epithelial Cell Urine MODERATE #/LPF (NONE/RARE)
[2023-09-03 06:15] LABS: Amorphous Sediment Urine MODERATE; Cast Seen? NONE SEEN #/LPF (NONE SEEN); Urine Culture Indicated YES
[2023-09-03] MEDS: CITRIC ACID/SODIUM CITRATE 30 ML SOLUTION ORACIT SHOHL'S SOLN PO (07:07)
[2023-09-03] MEDS: FAMOTIDINE/PF 20 MG/2 ML VIAL IV (07:07)
[2023-09-03] MEDS: METOCLOPRAMIDE HCL 10 MG/2 ML VIAL IVP (07:07)
--- NOTE | 2023-09-03 07:11 | PM.OBHP ---
OB - H&P: HPI History of Present Illness Chief complaint: C SECTION : 1 Para: 0 Gestational age based on last menstrual period: 38.3 Indications for induction: other (crohn's disease, autoimmune disorder, ) History of Present Dating criteria: LMP confirmed by 1st trimester US care: good care Ultrasounds: normal 1st trimester US and normal mid trimester US Medical complications OB: other (crohn' diseas ) Labs Blood type: O (+) positive Rubella: immune RPR/VDLR: nonreactive GBS status: negative HBsAG: negative Review of Systems ROS Status of ROS: 10 or more systems reviewed and unremarkable except as noted in history and below PFSH PFS Medical History (Updated 09/03/23 @ 06:17 by Adi Mayo) Myositis ?M60.9 - Myositis, unspecified (ICD-10) GERD (gastroesophageal reflux disease) ?K21.9 - Gastro-esophageal reflux disease without esophagitis (ICD-10) Crohn's colitis ?K50.10 - Crohn's disease of large intestine without complications (ICD-10) Hx of Surgical History (Updated 09/03/23 @ 06:18 by Adi Mayo) History of tonsillectomy and adenoidectomy ?Z90.89 - Acquired absence of other organs (ICD-10) History of appendectomy ?Z90.49 - Acquired absence of other specified parts of digestive tract (ICD-10) History of bowel resection ?Z90.49 - Acquired absence of other specified parts of digestive tract (ICD-10) Social History (Updated 09/03/23 @ 06:18 by Adi Mayo) Smoking status: Never smoker Non-prescribed substance use: denies use Highest level of school completed/degree received: Associate degree: occupational, technical, vocational program Meds Home Medications and Allergies Home Medications ?Medication ?Instructions ?Recorded ?Confirmed ?Type ustekinumab 90 mg/mL subcutaneous 90 mg subcut .q8week 01/16/23 01/16/23 History syringe (Stelara) prochlorperazine maleate 10 mg 10 mg PO Q12H PRN nausea and 06/09/23 Rx tablet (Compazine) vomiting, headache 7 days #7 tabs Allergies Allergy/AdvReac Type Severity Reaction Status Date / Time cefdinir [From Omnicef] Allergy Severe Verified 01/16/23 16:19 infliximab [From Remicade] Allergy Severe Rash Verified 01/16/23 16:19 sulfamethoxazole Allergy Severe Verified 01/16/23 16:19 [From Bactrim] trimethoprim [From Bactrim] Allergy Severe Verified 01/16/23 16:19 vancomycin Allergy Severe Verified 01/16/23 16:19 Exam Constitutional Vital Signs, click to edit/add: Last Vital Signs Resp 16 09/03/23 05:40 O2 Del Method Room Air 09/03/23 05:40 Documenting provider has reviewed patient's vital signs: yes Common normals: no apparent distress General appearance: cooperative, comfortable and well kempt Orientation/consciousness: Yes awake, Yes oriented to person, Yes oriented to place and Yes oriented to time HENMT Common normals: normocephalic Head and scalp: normal to inspection Eye Common normals: EOMs intact bilaterally General eye: normal appearance of both eyes Neck & C-Spine Common normals: full ROM Lymph Lymphatic: no lymphadenopathy noted Chest Common normals: inspection of chest normal Respiratory Common normals: normal respiratory effort Cardio Common normals: regular rate and regular rhythm Rate: regular rate Rhythm: regular rhythm GI Common normals: Normal to inspection, nondistended, normoactive bowel sounds present Palpation: soft Common normals: no CVA tenderness Back & Pelvis Common normals: no CVA tenderness Extremity Common normals: normal to inspection and full ROM Neuro Common normals: oriented x3 Sensorium/orientation: awake, alert, oriented to person, oriented to place and oriented to time Psych Attitude: calm Speech: normal speech Thought content: normal thought content Results Labs Labs: Short CBC 09/03/23 Range/Units 05:50 WBC 11.8 H (4.0-11.0) 10^3/uL Hgb 9.6 L (12.0-16.0) g/dL Hct 30.9 L (36.0-48.0) % Plt Count 189 (150-450) 10^3/uL Urine 09/03/23 Range/Units 05:40 Urine Color Yellow (YELLOW) Urine Clarity Clear (CLEAR) Urine pH 7.0 (5.0-9.0) Ur Specific [place] 1.025 (1.005-1.025) Urine Protein Negative (NEG/TRACE) mg/dL Urine Glucose (UA) Negative (NEGATIVE) mg/dL OB - A/P Additional Plan Induction method: none Plan: expectant management Urinary Catheter Management Urinary Catheter Management Urethral: Cath placed during this visit: yes Urethral indwelling: Yes Reason for continuing: prolonged immobilization Insertion date: 09/03/23 Insertion time: 06:30
[2023-09-03] MEDS: CLINDAMYCIN PHOSPHATE/D5W 900 MG/50 ML PIGGYBACK 100 MG IV ×2 (07:31→15:14)
[2023-09-03] MEDS: LACTATED RINGER'S SOLUTION 1,000 ML 50 ML IV ×2 (08:12→09:00)
--- NOTE | 2023-09-03 09:01 | PM.EN ---
Event Note Event Note: 1st Assist Note: I first assisted Dr Hi with primary section as directed. I independently closed the SQ layer with 4-0 vicryl and then I independently closed the skin incision with 3-0 vicryl without difficulty. Hemostasis noted at completion of closure. Patient tolerated procedure well.
[2023-09-03] MEDS: 0.9 % SODIUM CHLORIDE 10 ML VIAL 20 ML INJ (09:04)
[2023-09-03] MEDS: BUPIVACAINE LIPOSOME/PF 266 MG/13.3 ML VIAL INJ (09:04)
[2023-09-03] MEDS: BUPIVACAINE HCL 0.5% PF 50 MG/10 ML VIAL INJ (09:04)
--- NOTE | 2023-09-03 09:58 | PC.NURSE ---
0915: patient had a small amount of lochia after palpation of fundus. Patient 's abdominal dressing was clean dry and intact.
[2023-09-03] MEDS: OXYTOCIN/0.9 % SODIUM CHLORIDE 20 UNITS/1,000 ML PLAST..BAG 125 UNIT IV (11:40)
--- NOTE | 2023-09-03 14:10 | PC.NURSE ---
0958 to room 252 from PACU, scds applied and iv switched over to pitocin per attention, given fluids
[2023-09-03] MEDS: KETOROLAC TROMETHAMINE 30 MG/ML VIAL IVP ×2 (15:14→21:37)
[2023-09-03] MEDS: ACETAMINOPHEN 500 MG TABLET 1000 MG PO (16:40)
[2023-09-04] VITALS (31 sets, daily range): BP systolic 83–121; BP diastolic 45–76; PULSE 64–94; TEMP 36.3–36.9; O2SAT 98–100
[2023-09-04] MEDS: ACETAMINOPHEN 500 MG TABLET 1000 MG PO ×3 (01:09→15:20)
[2023-09-04] MEDS: KETOROLAC TROMETHAMINE 30 MG/ML VIAL IVP (04:56)
[2023-09-04 05:53] LABS: Basophils Absolute Auto 0.1 10^3/uL (0.0-0.1); Basophils Percent Auto 0.3 % (0.2-2.0); Eosinophils Absolute Auto 0.2 10^3/uL (0.0-0.7); Eosinophils Percent Auto 1.1 % (0.9-7.0); Immature Granulocytes Abs Auto 0.38 10^3/uL (0.00-0.03); Immature Granulocytes Pct Auto 2.3 % (0.0-0.5); Lymphocytes Absolute Auto 1.9 10^3/uL (1.2-3.8); Lymphocytes Percent Auto 11.5 % (20.5-60.0); Mean Corpuscular HGB Conc 30.1 g/dL (29.9-35.2); Mean Corpuscular Hemoglobin 26.7 pg (26.7-34.0); Mean Corpuscular Volume 88.7 fL (81.0-99.0); Mean Platelet Volume 10.2 fL (9.5-13.5); Monocytes Percent Auto 6.2 % (1.7-12.0); Neutrophils Percent Auto 78.6 % (43.0-75.0); Platelet Count 168 10^3/uL (150-450); Red Blood Count 2.21 10^6/uL (4.20-5.40); Red Cell Distribution Width 17.3 % (11.0-15.0); White Blood Count 16.6 10^3/uL (4.0-11.0)
[2023-09-04 06:19] LABS: Hematocrit 19.6 % (36.0-48.0); Hemoglobin 5.9 g/dL (12.0-16.0)
[2023-09-04] MEDS: DOCUSATE SODIUM 100 MG CAPSULE PO ×2 (08:25→21:45)
--- NOTE | 2023-09-04 10:11 | PC.NURSE ---
HARSHAD into speak with Yvonne, as she has decided to bottle feed . Support offered and given handout on Drying up Milk Pt states just not committed to . She wanted to try but states feels better just bottle feeding.
[2023-09-04 11:29] LABS: Basophils Percent Auto 0.2 % (0.2-2.0); Eosinophils Absolute Auto 0.1 10^3/uL (0.0-0.7); Eosinophils Percent Auto 0.7 % (0.9-7.0); Immature Granulocytes Abs Auto 0.26 10^3/uL (0.00-0.03); Immature Granulocytes Pct Auto 1.6 % (0.0-0.5); Lymphocytes Absolute Auto 1.2 10^3/uL (1.2-3.8); Lymphocytes Percent Auto 7.4 % (20.5-60.0); Mean Corpuscular HGB Conc 30.9 g/dL (29.9-35.2); Mean Corpuscular Hemoglobin 27.5 pg (26.7-34.0); Mean Corpuscular Volume 89.1 fL (81.0-99.0); Mean Platelet Volume 9.8 fL (9.5-13.5); Monocytes Percent Auto 5.8 % (1.7-12.0); Neutrophils Percent Auto 84.3 % (43.0-75.0); Platelet Count 171 10^3/uL (150-450); Red Blood Count 2.47 10^6/uL (4.20-5.40); Red Cell Distribution Width 17.8 % (11.0-15.0); White Blood Count 16.6 10^3/uL (4.0-11.0)
[2023-09-04] MEDS: ENOXAPARIN SODIUM 40 MG/0.4 ML SYRINGE SUBQ (11:30)
[2023-09-04] MEDS: IBUPROFEN 400 MG TABLET 800 MG PO ×3 (11:30→23:54)
--- NOTE | 2023-09-04 11:30 | RESP.RT ---
done per nursing
--- NOTE | 2023-09-04 11:38 | P.OBPN_ITS ---
OB - PN: Subj Subjective Patient comments: no complaints, pain well controlled, tolerating diet and flatus present [place] infant status: doing well and bottle [place] feeding status: exclusively bottle feeding Narrative: hemoglobin 5.9. without symptoms. is receiving PRBC's Exam Narrative Exam Narrative: voicing no complaints Constitutional Vital Signs, click to edit/add: Last Vital Signs Temp 98.1 F 09/04/23 09:26 Pulse 92 H 09/04/23 10:18 Resp 16 09/04/23 09:26 BP 108/67 09/04/23 10:18 Pulse Ox 99 09/04/23 09:26 O2 Del Method Room Air 09/04/23 09:26 Documenting provider has reviewed patient's vital signs: yes Common normals: no apparent distress, average body habitus, oriented x3, no limitations, healthy appearing, alert and well nourished HENNM Common normals: normocephalic and head/scalp atraumatic Eye Pupil: PERRL and accommodation reflex normal Neck & C-Spine Common normals: full ROM and supple Chest Common normals: inspection of chest normal Respiratory Common normals: normal respiratory effort Cardio Common normals: regular rate and regular rhythm GI Common normals: Normal to inspection, nondistended, normoactive bowel sounds present, soft to palpation and non-tender Common normals: no CVA tenderness Back & Pelvis Common normals: no thoracic nor lumbar tenderness Extremity Common normals: normal to inspection, full ROM and no calf tenderness Neuro Common normals: oriented x3, CN's II-XII intact bilaterally, moves all extremities, no focal motor deficits and no sensory deficits noted Psych Common normals: mental status grossly normal, thought process normal, cooperative and affect normal Appearance: grossly normal and well kempt Mood and affect: euthymic mood Thought process: normal thought process Results Labs Labs: Short CBC 09/04/23 Range/Units 05:38 WBC 16.6 H (4.0-11.0) 10^3/uL Hgb 5.9 L* D (12.0-16.0) g/dL Hct 19.6 L* (36.0-48.0) % Plt Count 168 (150-450) 10^3/uL Urinary Catheter Management Urinary Catheter Management Urethral: Cath placed during this visit: yes, but has since been removed by the nurse Urethral indwelling: Yes Insertion date: 09/03/23 Insertion time: 06:00 Removal date: 09/03/23 Removal time: 15:50 OB - PN: A/P Assessment and Plan (1) delivery delivered: Assessment and Plan: SCHEDULED PRIMARY CS DUE TO MULTIPLE MATERNAL MEDICAL ISSUES, (SEE RECORD). POST OP HGB 5.9. NOT SYMPTOMATIC. (2) Anemia: Assessment and Plan: S/P CS FOR MULTIPLE MEDICAL ISSUES, (SEE RECORD). WITHOUT COMPLICATION. POST OP HEMOGLOBIN 5.9 HOWEVER NOT SYMPTOMATIC. RECEIVING 2 UNITS PRBC'S. Qualifiers: Anemia type: iron deficiency Iron deficiency anemia type: other iron deficiency Qualified Code(s): D50.8 - Other iron deficiency anemias Plan ON ORAL IRON. RECEIVING 2 UNITS PRBC'S Plan - day: 1 Plan: routine postop care Time Spent with Patient Time: Total time spent is greater than 50% in coordination of care (as documented) at patient's floor/unit and/or counseling patient: Total time spent with greater than 50% in coordination of care (as documented) at patient's floor/unit and/or counseling patient: 25 - 35 minutes
[2023-09-04 11:47] LABS: Hemoglobin 6.8 g/dL (12.0-16.0)
[2023-09-05 06:02] LABS: Basophils Absolute Auto 0.1 10^3/uL (0.0-0.1); Basophils Percent Auto 0.3 % (0.2-2.0); Eosinophils Absolute Auto 0.3 10^3/uL (0.0-0.7); Hemoglobin 7.6 g/dL (12.0-16.0); Immature Granulocytes Abs Auto 0.29 10^3/uL (0.00-0.03); Lymphocytes Absolute Auto 2.1 10^3/uL (1.2-3.8); Lymphocytes Percent Auto 14.2 % (20.5-60.0); Mean Corpuscular HGB Conc 31.7 g/dL (29.9-35.2); Mean Corpuscular Hemoglobin 28.5 pg (26.7-34.0); Mean Corpuscular Volume 89.9 fL (81.0-99.0); Mean Platelet Volume 10.2 fL (9.5-13.5); Monocytes Absolute Auto 0.9 10^3/uL (0.3-0.8); Monocytes Percent Auto 6.3 % (1.7-12.0); Neutrophils Absolute Auto 11.1 10^3/uL (1.4-6.5); Neutrophils Percent Auto 75.2 % (43.0-75.0); Platelet Count 168 10^3/uL (150-450); Red Blood Count 2.67 10^6/uL (4.20-5.40); Red Cell Distribution Width 17.9 % (11.0-15.0); White Blood Count 14.8 10^3/uL (4.0-11.0)
[2023-09-05 08:51] VITALS: BP 115/69; PULSE 73
[2023-09-05] MEDS: IBUPROFEN 400 MG TABLET 800 MG PO (08:59)
[2023-09-05] MEDS: DOCUSATE SODIUM 100 MG CAPSULE PO (08:59)
[2023-09-05] MEDS: ACETAMINOPHEN 500 MG TABLET 1000 MG PO (08:59)
[2023-09-05] MEDS: ENOXAPARIN SODIUM 40 MG/0.4 ML SYRINGE SUBQ (09:01)
[2023-09-05 09:26] VITALS: TEMP 36.4
--- NOTE | 2023-09-05 12:09 | PM.OBDS ---
DS: Providers Provider Date of admission: 09/03/23 05:17 Primary care physician: YUNG ARAGON Admitting clinician: Jayme Hi Consults: 09/03/23 Consult to Anesthesiology Routine Consulting Provider: Jesse Hernandez II Reason for consultation: Spinal Discharging clinician: Martha Augustin Anticipated date of discharge: 09/05/23 DS: Diagnosis Discharge Diagnosis (1) delivery delivered: Assessment and plan: CLINICAL CONDITION GOOD. DISCHARGE HOME WITH INSTRUCTIONS. SCRIPTS PROVIDED FOR: IRON SULFATE, PERCOCET AND IBUPROFEN (2) Anemia: Assessment and plan: HEMOGLOBIN RESPONDED WELL TO TWO UNITS PACKED CELLS. WILL TAKE IRON SULFATE 325 TWICE DAILY FOR ONE MONTH AND EAT DIET RICH IN IRON Qualifiers: Anemia type: iron deficiency Iron deficiency anemia type: other iron deficiency Qualified Code(s): D50.8 - Other iron deficiency anemias Plan DISCHARGE HOME WITH INSTRUCTIONS OB - DS: Summary Hospital Course Hospital Course: UNCOMPLICATED Time spent discussing smoking cessation with patient: more than 10 minutes Peripartum Data - Procedures: Procedures Operation Date: 09/03/23 07:30 Actual Procedure Side Surgeon p Not Applicable Jayme Hi DO Peripartum Data - Vaginal Delivery Procedures: Procedures Operation Date: 09/03/23 07:30 Actual Procedure Side Surgeon p Not Applicable Jayme Hi DO Complications complications: none Infant Delivery method: elective section Gender: male Discharge plan: home Status at Discharge Cognitive/behavioral status at discharge: WNL Functional status at discharge: independent ambulation Overall status at discharge: patient is progressing back to baseline Time Spent with Patient Time attestation: Total time spent providing and/or coordinating discharge services: Time spent: less than 30 minutes Specific discharge activities: SEE ABOVE Exam Narrative Exam Narrative: VOICES NO COMPLAINTS Constitutional Vital Signs, click to edit/add: Last Vital Signs Temp 97.5 F L 09/05/23 09:26 Pulse 73 09/05/23 08:51 Resp 16 09/05/23 09:26 BP 115/69 09/05/23 08:51 Pulse Ox 98 09/04/23 15:15 O2 Del Method Room Air 09/04/23 23:43 Documenting provider has reviewed patient's vital signs: yes Common normals: no apparent distress, oriented x3, no limitations, healthy appearing, alert and well nourished HENMT Common normals: normocephalic and head/scalp atraumatic Eye Pupil: PERRL and accommodation reflex normal Neck & C-Spine Common normals: full ROM and supple Chest Common normals: inspection of chest normal Respiratory Common normals: normal respiratory effort Cardio Common normals: regular rate and regular rhythm GI Common normals: Normal to inspection, nondistended, normoactive bowel sounds present Common normals: no CVA tenderness Back & Pelvis Common normals: no thoracic nor lumbar tenderness Extremity Common normals: normal to inspection, full ROM and no calf tenderness Neuro Common normals: CN's II-XII intact bilaterally, moves all extremities, no focal motor deficits and no sensory deficits noted Psych Common normals: mental status grossly normal, thought process normal, cooperative, affect normal and speech normal DS: Data Data Completed and Pending Labs on day of discharge: Labs from last 24 hours 09/05/23 09/03/23 05:52 07:28 WBC 14.8 H RBC 2.67 L Hgb 7.6 L Hct 24.0 L MCV 89.9 MCH 28.5 MCHC 31.7 RDW 17.9 H Plt Count 168 MPV 10.2 Neut % (Auto) 75.2 H Lymph % (Auto) 14.2 L [place] % (Auto) 6.3 Eos % (Auto) 2.0 Baso % (Auto) 0.3 Neut # (Auto) 11.1 H Lymph # (Auto) 2.1 [place] # (Auto) 0.9 H Eos # (Auto) 0.3 Baso # (Auto) 0.1 Abs Immat Gran (auto) 0.29 H Imm/Tot Granulo (auto) 2.0 H Crossmatch See Detail Discharge Plan Discharge Disposition: Home, Self-Care Condition: Good Assessment: ASKING TO GO HOME. HEMOGLOBIN RESPONDED WELL TO TWO UNITS OF PACKED CELLS. VOICES NO COMPLAINTS. READY FOR DISCHARGE. INSTRUCTIONS GIVEN WITH STATED UNDERSTANDING. Health Concerns: NONE Plan of Treatment: TAKE IRON TWICE DAILY PRESCRIBED FOR ONE MONTH. EAT IRON RICH DIET. DRINK 8 MIN GLASSES OF WATER A DAY. CALL FOR PROBLEM OR CONCERN. Discharge Medications: Continued Stelara 90 mg/mL syringe 90 mg SUBCUT .q8week prochlorperazine maleate [Compazine] 10 mg tablet 10 mg PO Q12H PRN (Reason: nausea and vomiting, headache) 7 Days Qty: 7 0RF Activity: increase activity as tolerated Activity Detail: walking only exercise, shower but no tub 4 weeks, no sex 6 weeks, no swimming 6 weeks, may climb stairs Diet: regular diet Print Language: Welsh Patient Instructions: (DC) Activity Restrictions/Additional Instructions: see above Forms: Delivery - Discharge, Portal Instructions Follow Up Appointments: has appointment made for incision check next week Discharge location: home
--- NOTE | 2023-09-05 13:37 | DS_ITS ---
DISCHARGE DATE: ??09/05/2023 PRIMARY DIAGNOSES: 1.? Intrauterine at 38 3/7 weeks. 2.? History of bowel resection, significant abdominal surgery. 3.? History of autoimmune disorder. 4.? Refusing trial of vaginal delivery. 5.? History of Crohn?s disease. 6.? Acute blood loss anemia. PROCEDURE:? Primary section, elective. HOSPITAL COURSE:? As expected.? Please see chart for full details.? LABORATORY DATA:? Please see chart. COMPLICATIONS:? None. DISCHARGE CONDITION:? Stable. CONSULTATION:? Anesthesia. DISCHARGE INSTRUCTIONS: 1.? Diet:? Regular. 2.? Medications: a.? Percocet 5/325 one to two p.o. every 4-6 hours p.r.n. pain. b.? Motrin 800 one p.o. every 8 hours p.r.n. pain. 3.? Followup in one week. Restrictions:? Pelvic rest for 6 weeks.? No heavy lifting.? May drive when pain free and no longer on narcotics. MTDD
--- NOTE | 2023-09-12 09:02 | P.ON_ITS ---
Brief Operative Note Date of procedure: 09/03/23 Pre-op diagnosis general: iup at 38 3/7wks, ho crohns, ho of bowel resection Post-op diagnosis: same as pre-op Procedure: NAME OF PROCEDURE: [ section ] PROCEDURE: Patient was taken back to the Operating Room where she was given a spinal anesthesia with Duramorph without difficulty. She was prepped and draped in the normal sterile fashion. A Pfannenstiel skin incision was then made 2 cm above the symphysis pubis and carried down to underlying rectus fascia using a Bovie. The fascia was incised in the midline and extended laterally using Fontenot scissors. Two Violeta clamps were placed on the superior aspect of the fascia and dissected off the underlying rectus muscles. The same was performed on the inferior aspect as well. The muscles were then in the midline. Peritoneum was identified and entered bluntly. The peritoneum was then extended superiorly and inferiorly with good visualization of the bladder. The bladder blade was inserted. A low transverse incision was made on the patient's uterus and extended laterally digitally. The infant was then delivered atraumatically after the bladder blade was removed in the cephalic position. The cord was clamped and cut. Cord blood was obtained. The infant was handed off to awaiting team. The patient's placenta was spontaneously delivered. The uterus was then exteriorized. The uterus was cleared of all clots and debris. The bladder blade was reinserted. The patient's uterine incision was closed using #0 Vicryl in a running lock fashion. Excellent hemostasis was assured. The uterus was then returned to the patient's abdomen. The patient's abdomen was copiously irrigated using warm saline. Peritoneal gutters were cleared of all clots and debris. Again excellent hemostasis was assured. The patient's peritoneum was closed using 3-0 Vicryl in a running fashion. The patient's fascia was closed using #0 Vicryl in a running fashion. The patient's skin was closed using 4-0 Vicryl subcuticularly. The patient tolerated the procedure well. Sponge, lap, and needle counts were correct x2. The patient was taken to the Recovery Room in stable condition. Anesthesia: spinal Surgeon: Jayme Hi Special Procedures Nurse: ALFREDO ARIAS Estimated blood loss (mL): 575 Pathology: none sent Condition: stable Disposition: PACU Urinary Catheter Management Urinary Catheter Management Urethral: Cath placed during this visit: yes, but has since been removed by the nurse Urethral indwelling: Yes Insertion date: 09/03/23 Insertion time: 06:00 Removal date: 09/03/23 Removal time: 15:50
--- NOTE | 2023-09-12 09:05 | PM.OBPRCCS ---
Procedure Pre-op/Post-op diagnoses: Pre-Op/Post-Op Diagnoses Operation Date: 09/03/23 07:30 <No data on this case meets the specified criteria> Procedure: Procedures Operation Date: 09/03/23 07:30 Actual Procedure Side Surgeon p Not Applicable Jayme Hi DO Psychological Stress Evaluator: ALFREDO ARIAS Estimated blood loss (mL): 575 Disposition: floor Anesthesia type: Spinal
== END 2023-09-05 13:37 | disposition home or self-care (01) | DRG 787 ==
PROVIDERS: Obstetrics & Gynecology; Admitting Provider Midwife; PCP Family Medicine; Visit Provider Obstetrics & Gynecology
PROC: 10D00Z1 Extraction of Products of Conception, Low, Open Approach (ICD-10-PCS; CPT 59514; principal; 2023-09-03 07:30)
DX: O99.12 Other diseases of the blood and blood-forming organs and certain disorders involving the immune mechanism complicating childbirth (principal); D62 Acute posthemorrhagic anemia; D80.1 Nonfamilial hypogammaglobulinemia; D80.3 Selective deficiency of immunoglobulin G [IgG] subclasses; K50.10 Crohn's disease of large intestine without complications; O99.62 Diseases of the digestive system complicating childbirth; Z3A.38 38 weeks gestation of pregnancy; Z37.0 Single live birth; Z90.49 Acquired absence of other specified parts of digestive tract; O90.81 Anemia of the puerperium; D50.8 Other iron deficiency anemias; K21.9 Gastro-esophageal reflux disease without esophagitis; Z79.899 Other long term (current) drug therapy; H05.129 Orbital myositis, unspecified orbit; R91.1 Solitary pulmonary nodule
CPT/HCPCS: 36415; 36430; 51702; 64488; 80307; 81001; 85025; 86850; 86900; 86901; 87086; 88307; 94667; 94668; 96372; 96374; 96375; 96376; J1094; P9016

== ENCOUNTER 2023-09-08 08:05 | Outpatient (OUT) | payer BC, MEDICAID, SELFPAY ==
--- OUTSIDE RECORDS SUMMARY | 2023-09-08 08:30 | XMS_ITS | CCD ---
Author Organization [facility] Care Team Providers Care Business Services Manager Name Role Phone Otilia Sinclair Primary Care [...] Provider Chey Aragon MD Primary Care Provider MAGDALENA ROJAS Referring Unavaila ble CHEY ARAGON Primary Care Unavailable FELICITAS THOMPSON Attending Unavailable CHEY ARAGON Primary Care Unavailable Ny Cool Attending Unavailable CHEY ARAGON Primary Care Unavailable ALEXX SLATER Referring Unavailable SADIQ SLATER Attending Unavailable MAHESH, CHEY G Primary Care Unavailable ALEXX SLATER M Referring Unavailable MAHESH, CHEY G Primary Care Unavailable FOLLOW-UP AT SAME, [facility] Referring Un available Ny Cool Attending Unavailable GURPREET BARKER Admitting Unavailable MAHESH, CHEY G Primary Care Unavailable UNKNOWN, PROVIDER Referring Unavailable MITCH BANUELOS Attending Unavailable MITCH BANUELOS Admitting Unavailable FOLLOW-UP AT SAME, [facility] Referring Un available MAHESH, CHEY G Primary [...] G Primary Care Unavailable FOLLOW-UP AT SAME, [facility] Referring Un available MAHESH, CHEY G Primary Care Unavailable ALEXX SLATER Attending Unavailable ALEXX SLAETR Attending Unavailable MAHESH, CHEY G Primary Care Unavailable ALEXX SLATER Referring Unavailable MAHESH, CHEY G Primary Care Unavailable ZHOU LEE Attending Unavailable FOLLOW-UP AT SAME, [facility] Referring Un available MAHESH, CHEY G Primary Care Unavailable VY VILLAFANA Attending Unavailable Ny Cool Referring Unavailable Ioana Otero Attending Unavailable MAHESH, CHEY G Primary Care Unavailable MAHESH, CHEY G Primary Care Unavailable FOLLOW-UP AT SAME, [facility] Referring Un available JAYY ALEMAN Attending Unavailable MAGDALENA ROJAS Referring Unavaila ble MAHESH, CHEY G Primary Care Unavailable MITCH BANUELOS Attending Unavailable MAHESH, CHEY G Primary Care Unavailable FOLLOW-UP AT SAME, [facility] Referring Un available ZHOU LEE Attending Unavailable Unavailable Primary Care Provider UnavailChey Meek MD Primary Care Provider [phone] Chey Aragon MD Primary Care Provider Tima SNAPPER ON, Serene Ventura Unavailable Chey Aragon MD Unavailable [phone] ALFREDO DUONG Referring Unavailable CHEY ARAGON Primary Care Unavailable RUCHI CARMONA Attending Unavailable LUIZ DUONGE Referring Unavailable CHEY ARAGON Primary Care Unavailable LUIZ DUONGE Referring Unavailable CHEY ARAGON Primary Care Unavailable FLOROLUIZE Referring Unavailable CHEY ARAGON Primary Care Unavailable [facility] PROVIDER, [facility] Referring Unavailable TERESA GERBER Attending Unavailable IOANA OTERO Referring Unavailable VELIA YO Attending Unavailable TERESA GERBER Attending Unavailable [facility] PROVIDER, [facility] Referring Unavailable [facility] PROVIDER, [facility] Referring Unavailable ALEXX SLATER Referring Unavailable GIOVANI EDMONDS Attending Unavailable ALEXX SLATER Referring Unavailable GIOVANI EDMONDS Attending Unavailable [facility] PROVIDER, [facility] Referring Unavailable TERESA GERBER Attending Unavailable SHANTELL Duong Attending Provider Alfredo Duong Admitting Unavailable Alfredo Duong Attending Unavailable ALFREDO DUONG Attending Unavailable RUBIA HERNANDEZ Attending Unavailable ENEDINA TAYLOR Attending Unavailable CHEY ARAGON Referring Unavailable BO STOKES Attending Unavailable CHEY ARAGON Referring Unavailable ALFREDO DUONG Attending Unavailable KATIE ACEVES Attending Unavailab ENEDINA Perdomo Attending Unavailable CHEY ARAGON Referring Unavailable ALFREDO DUONG Attending Unavailable ENEDINA TAYLOR Attending Unavailable KATIE ACEVES Attending Unavailab ALFREDO Swain Attending Unavailable ALFREDO DUONG Attending Unavailable XIOMARA ZURITA Attending Unavailable KATIE ACEVES Referring Unavailab ALFREDO Swain Attending Unavailable MAHESH CHEY Referring Unavailable ENEDINA TAYLOR Attending Unavailable CHEY ARAGON Referring Unavailable BO STOKES Attending Unavailable CHEY ARAGON Referring Unavailable DEXTER, BLAZE Liz Attending Unavailable CHEY ARAGON Referring Unavailable KETAN, KATIE Ventura Attending Unavailab le FLORO, ALFREDO L Attending [...] [CEFDINIR] Drug Allergy 09-11-19 12 Rash, Anaphylaxis [facility] (3 sources) Sulfamethoxazole / Trimethoprim; Translations: [Bactrim] Drug Allergy 09-11-19 12 Anaphylaxis [facility] (1 source) cefdinir Drug Allergy 09-10-19 16 [facility] (1 source) inFLIXimab Drug Allergy 09-10-19 16 [facility] (1 source) Pentamidine Drug Allergy 07-08-19 21 [facility] (1 source) Vancomycin Drug Allergy 09-10-19 16 [facility] (17 sources) inFLIXimab; Translations: [INFLIXIMAB] Drug Allergy 01-31-20 15 Other (See Comments) [facility] (17 sources) Pentamidine; Translations: [PENTAMIDINE] Drug Allergy 12-31-19 20 Headache [facility] Work Phone: (20 sources) Sulfonamides (Antibiotic); Translations: [SULFA (SULFONAMIDE ANTIBIOTICS)] Propensity to adverse reactions to drug 05-24-19 15 Rash [facility] (20 sources) Vancomycin; Translations: [VANCOMYCIN ANALOGUES] Drug Allergy 08-09-19 15 Magdalene Syndrome [facility] (7 sources) cefdinir Drug Allergy 09-11-19 12 Anaphylaxis, Rash [facility] (7 sources) inFLIXimab Drug Allergy 01-31-20 15 [facility] (7 sources) Pentamidine Drug Allergy 12-31-[address] [facility] (12 sources) Sulfamethoxazole / Trimethoprim; Translations: [SULFAMETHOXAZOLE-T RIMETHOPRIM] Drug Allergy 09-11-19 12 Anaphylaxis, Rash [facility] Medications Current Medications Medication Drug Class(es) [...] once daily. 0 Active Multiple Vitamins-Minerals (THERAPEUTIC MULTIVITAMIN-ENDOSCOPY TECH ALS) tablet (2 sources) take 1 tablet by mouth once daily Multiple Vitamins-Minerals (THERAPEUTIC MULTIVITAMIN-ENDOSCOPY TECH ALS) tablet Take 1 tablet by mouth [...] ml riTUXimab 10 mg/ml injection (7 sources) [id number] Cytolytic Antibody End: 08-06-2023 riTUXimab 100 MG/10ML [...] [Chronic sinusitis, unspecified] Onset: 5 Resolved: 1 02-26-2022 Chronic Other upper respiratory infections (18 sources) Acute pansinusitis; Translations: [Acute pansinusitis, unspecified] Resolved: 6 09-14-2015 Episodic Regional enteritis and ulcerative colitis (20 [...] Long-term current use of systemic steroid; 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] Onset: 6 Resolved: 9 08-13-2018 Episodic Other aftercare (20 sources) Drug therapy finding; Translations: [On rituximab therapy] Onset: 8 Resolved: 1 04-17-2020 Episodic Other aftercare (12 sources) 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; Translations: [Adalimumab [...] OB FOLLOW UP TRANSABDOMIN AL APPROACHon 08-31-2023 OB FOLLOW UP TRANSABDOMINAL APPROACH FINDINGS: A [...] [Mass/Vol] 5.36 mg/L Normal <10.00 [facility] Comment on above: Performed By: #### C RP, CMPN #### [facility] (DEFAULT) [address] [address] CBC,PLATELETSon 08-06-2023 Hematocrit (Bld) [Volume fraction] 29.1 % Low 34.9-44.3 [facility] Comment on above: Performed By: #### H EMO #### [facility] (DEFAULT) [address] [address] Hemoglobin (Bld) [Mass/Vol] 9.3 g/dL Low 11.4-15.2 [facility] Comment on above: Performed By: #### H EMOGC #### [facility] (DEFAULT) [address] [address] MCV (RBC) [Entitic vol] 85.3 fL Normal 79.6-97.7 [facility] Comment on above: Performed By: #### H EMO #### [facility] (DEFAULT) [address] [address] Mean Cell Hgb 27.3 pg Normal 25.9-33.9 [facility] Comment on above: Performed By: #### H EMOGC #### [facility] (DEFAULT) [address] [address] Mean Cell Hgb Conc 32.0 g/dL Normal 31.4-35.[address] [facility] Comment on above: Performed By: #### H EMOGC #### [facility] (DEFAULT) [address] [address] Platelet mean volume (Bld) [Entitic vol] 10.2 fL Normal 8.5-12.2 [facility] Comment on above: Performed By: #### H EMOGC #### [facility] (DEFAULT) [address] [address] Platelets (Bld) [#/Vol] 206 10*3/uL Normal 150-393 [facility] Comment on above: Performed By: #### H EMOGC #### [facility] (DEFAULT) [address] [place] [address] RBC (Bld) [#/Vol] 3.41 10*6/uL Low 3.91-5.04 [facility] Comment on above: Performed By: #### H EMOGC #### [facility] (DEFAULT) [address] [place] [address] RBC Distribution 13.2 % Normal 10.8-14.9 [facility] Comment on above: Performed By: #### H EMOGC #### [facility] (DEFAULT) [address] [place] [address] WBC (Bld) [#/Vol] 11.95 10*3/uL High 3.99-11.19 [facility] Comment on above: Performed By: #### H [facility] #### [facility] (DEFAULT) [address] [place] [address] COMPREHENSIVE METABOLIC PANE Jeremias 08-06-2023 Albumin [Mass/Vol] 3.2 g/dL Low 3.5-5.[address] [facility] Comment on above: Performed By: #### C RP, CMPN #### [facility] (DEFAULT) [address] [place] [address] ALP [Catalytic activity/Vol] 91 U/L Normal 32-126 [facility] Comment on above: Performed By: #### C RP, CMPN #### [facility] (DEFAULT) [address] [place] [address] ALT [Catalytic activity/Vol] 6 U/L Low 9-48 [facility] Comment on above: Performed By: #### C RP, CMPN #### [facility] (DEFAULT) [address] [place] [address] Anion gap [Moles/Vol] 12 mmol/L Normal 7-17 [facility] Comment on above: Performed By: #### C RP, CMPN #### [facility] (DEFAULT) [address] [place] [address] AST [Catalytic activity/Vol] 11 U/L Normal 10-39 [facility] Comment on above: Performed By: #### C RP, CMPN #### [facility] (DEFAULT) [address] [place] [address] Bilirubin [Mass/Vol] 0.4 mg/dL Normal <1.5 [facility] Comment on above: Performed By: #### C RP, CMPN #### [facility] (DEFAULT) [address] [place] [address] Calcium [Mass/Vol] 8.6 mg/dL Normal 8.6-10.[address] [facility] Comment on above: Performed By: #### C RP, CMPN #### [facility] (DEFAULT) [address] [place] [address] Chloride [Moles/Vol] 107 mmol/L Normal 98-108 [facility] Comment on above: Performed By: #### C RP, CMPN #### [facility] (DEFAULT) [address] [place] [address] CO2 [Moles/Vol] 23 mmol/L Normal 21-31 [facility] Comment on above: Performed By: #### C RP, CMPN #### [facility] (DEFAULT) [address] [place] [address] Creatinine [Mass/Vol] 0.45 mg/dL Low 0.50-1.20 [facility] Comment on above: Performed By: #### C RP, CMPN #### [facility] (DEFAULT) [address] [place] [address] eGFR, CKD-EPI, Female > Normal >=60 [facility] Comment on above: Result Comment: Repo rted eGFR is based on the CKD-EPI 2020 equation using creatinine, age, and sex. Performed By: #### C RP, CMPN #### [facility] (DEFAULT) [address] [place] [address] Glucose [Mass/Vol] 78 mg/dL Normal 70-[address] [facility] Comment on above: Performed By: #### C RP, CMPN #### [facility] (DEFAULT) [address] [place] [address] Osmolality [Osmolality] 284 mosm/kg Normal 278-305 [facility] Comment on above: Performed By: #### C RP, CMPN #### [facility] (DEFAULT) [address] [place] [address] Potassium [Moles/Vol] 3.8 mmol/L Normal 3.5-5.0 [facility] Comment on above: Performed By: #### C RP, CMPN #### [facility] (DEFAULT) [address] [place] [address] Protein [Mass/Vol] 5.4 g/dL Low 6.4-8.[address] [facility] Comment on above: Performed By: #### C RP, CMPN #### [facility] (DEFAULT) [address] [place] [address] Sodium [Moles/Vol] 138 mmol/L Normal 135-[address] [facility] Comment on above: Performed By: #### C RP, CMPN #### [facility] (DEFAULT) [address] [place] [address] Urea nitrogen [Mass/Vol] 4 mg/dL Low 7-25 [facility] Comment on above: Performed By: #### C RP, CMPN #### [facility] (DEFAULT) [address] [place] [address] Urea nitrogen/Creatinine [Mass ratio] 9 mg/mg Normal [facility] Comment on above: Performed By: #### C RP, CMPN #### [facility] (DEFAULT) [address] [place] [address] HEP A AB, TOTAL (IGG+IGM)on 08-06-2023 Hep A Ab, (IgG+IgM) Negative Normal Negative [facility] Comment on above: Performed By: #### H AABG #### [facility] (DEFAULT) [address] [place] [address] POCT URINE DIPSTICK AUTOMATE DOrdered By: Xochitl Murphy on 08-06-2023 Amorphous sediment LM Ql (Urine sed) [facility] Appearance (U) slightly cloudy [facility] Bacteria LM Ql (Urine sed) [facility] Bilirubin Ql (U) Negative [facility] Casts LM.LPF (Urine sed) [#/Area] [facility] Color (U) yellow [facility] Crystals LM Nom (Urine sed) [facility] Epithelial cells.squamous LM.HPF (Urine sed) [#/Area] [facility] Flow cytometry specialist review Trevin (Unsp spec) [Interp] [facility] Glucose Auto test strip (U) [Mass/Vol] Negative mg/dL [facility] Interpretation and review of laboratory results Abnormal [facility] Ketones [Mass/Vol] Negative mg/dL [facility] Leukocyte esterase Qn (U) [facility] Leukocyte esterase Test strip Ql (U) Negative [facility] Microscopic observation Gram stain Nom (Bronch spec) [facility] Nitrite Ql (U) Negative [facility] pH (U) 7.5 [pH] Abnormal 5 - 7 [facility] Protein Ql (U) Negative mg/dL [facility] RBC LM.HPF (Urine sed) [#/Area] [facility] RBC Ql (U) Negative [facility] Specific gravity (U) [Rel density] 1.015 1.001 - 1.035 [facility] Transitional cells LM Ql (Urine sed) [facility] Urobilinogen Qn (U) 0.[address] [facility] WBC LM.HPF (Urine sed) [#/Area] [facility] US OB FOLLOW UP TRANSABDOMIN AL [...] perforation and dizziness Alternatives discussed: No treatment [place] protocol: Patient identity confirmed: Verbally with patient Procedure details: Location: L ear and R ear Procedure type: irrigation Procedure outcomes: cerumen removed Post-procedure details: Inspection: TM intact Hearing quality: Normal Procedure completion: Tolerated well, no immediate complications [facility] Chlamydia/GC by PCR [place] Sw abon 03-04-2023 Chlamydia Dna(Pcr) Not detected [facility] Gonorrhoeae Dna(Pcr) Not detected Pr [facility] C REACTIVE PROTEINon 023 CRP [Mass/Vol] 4.81 mg/L Normal <10.00 [facility] Comment on above: Performed By: #### H FP, CRP, CHM6 #### [facility] (DEFAULT) [address] [place] [address] CRP High sensitivity method [Mass/Vol] 4.81 mg/L NINF - 10.00 mg/L [facility] Interpretation and review of laboratory results Normal [facility] CHEM 6 (LYTES, BUN CREA)on 04-27-2022 Anion gap [Moles/Vol] 12 mmol/L Normal 7-17 [facility] Comment on above: Performed By: #### H FP, CRP, CHM6 #### [facility] (DEFAULT) [address] [place] [address] Chloride [Moles/Vol] 105 mmol/L Normal 98-108 [facility] Comment on above: Performed By: #### H FP, CRP, CHM6 #### [facility] (DEFAULT) [address] [place] [address] CO2 [Moles/Vol] 25 mmol/L Normal 21-31 [facility] Comment on above: Performed By: #### H FP, CRP, CHM6 #### [facility] (DEFAULT) [address] [place] [address] Creatinine [Mass/Vol] 0.48 mg/dL Low 0.50-1.20 [facility] Comment on above: Performed By: #### H FP, CRP, CHM6 #### [facility] (DEFAULT) [address] [place] [address] eGFR, CKD-EPI, Female > Normal >=60 [facility] Comment on above: Result Comment: Repo rted eGFR is based on the CKD-EPI 2020 equation using creatinine, age, and sex. Performed By: #### H FP, CRP, CHM6 #### [facility] (DEFAULT) [address] [place] [address] Potassium [Moles/Vol] 3.9 mmol/L Normal 3.5-5.0 [facility] Comment on above: Performed By: #### H FP, CRP, CHM6 #### [facility] (DEFAULT) [address] [place] [address] Sodium [Moles/Vol] 138 mmol/L Normal 135-[address] [facility] Comment on above: Performed By: #### H FP, CRP, CHM6 #### [facility] (DEFAULT) [address] [place] [address] Urea nitrogen [Mass/Vol] 7 mg/dL Normal 7-25 [facility] Comment on above: Performed By: #### H FP, CRP, CHM6 #### [facility] (DEFAULT) [address] [place] [address] Urea nitrogen/Creatinine [Mass ratio] 15 mg/mg Normal [facility] Comment on above: Performed By: #### H FP, CRP, CHM6 #### [facility] (DEFAULT) [address] [place] [address] Anion gap [Moles/Vol] 12 mmol/L 7 - 17 mmol/L [facility] Chloride [Moles/Vol] 105 mmol/L 98 - 10 8 mmol/L [facility] CO2 [Moles/Vol] 25 mmol/L 21 - 31 mmol/L [facility] Creatinine [Mass/Vol] 0.48 mg/dL Low 0.50 - 1.20 mg/dL [facility] eGFR, CKD-EPI, Female - PINF [facility] Comment on above: Reported eGFR is bas ed on the CKD-EPI 2020 equation using creatinine, age, and sex. Potassium [Moles/Vol] 3.9 mmol/L 3.5 - 5.0 mmol/L [facility] Sodium [Moles/Vol] 138 mmol/L 135 - 145 mmol/L [facility] Urea nitrogen [Mass/Vol] 7 mg/dL 7 - 25 mg/dL [facility] Urea nitrogen/Creatinine [Mass ratio] 15 mg/mg [facility] Chronic hepatitis differenti ation between hepatitis B and C virus panelOrdered By: Maty Cook on 02-25-2023 HBV core IgG+IgM Ql (S) Negative Negative [facility] HBV surface Ab IA Ql (S) Negative Negative [facility] HBV surface Ag Ql (S) Negative Negative [facility] HCV Ab Ql (S) Negative Negative [facility] Interpretation and review of laboratory results Normal [facility] FOLATE, SERUMon 02-25-2023 Folate 38.76 ng/mL Normal >5.38 [facility] Comment on above: Performed By: #### H EMOGC #### [facility] (DEFAULT) [address] [place] [address] FOLATE, SERUMOrdered By: Alissa Chamorro on 02-25-2023 Folate [Mass/Vol] 38.76 ng/mL 5.38 - PIN F ng/mL [facility] Interpretation and review of laboratory results Normal [facility] HEPATIC FUNCTION PANELon Albumin [Mass/Vol] 4.0 g/dL Normal 3.5-5.[address] [facility] Comment on above: Performed By: #### H FP, CRP, CHM6 #### [facility] (DEFAULT) [address] [place] [address] ALP [Catalytic activity/Vol] 42 U/L Normal 32-126 [facility] Comment on above: Performed By: #### H FP, CRP, CHM6 #### [facility] (DEFAULT) [address] [place] [address] ALT [Catalytic activity/Vol] 5 U/L Low 9-48 [facility] Comment on above: Performed By: #### H FP, CRP, CHM6 #### [facility] (DEFAULT) [address] [place] [address] AST [Catalytic activity/Vol] 10 U/L Normal 10-39 [facility] Comment on above: Performed By: #### H FP, CRP, CHM6 #### [facility] (DEFAULT) [address] [place] [address] Bilirubin [Mass/Vol] 0.5 mg/dL Normal <1.5 [facility] Comment on above: Performed By: #### H FP, CRP, CHM6 #### [facility] (DEFAULT) [address] [place] [address] Bilirubin.indirect [Mass/Vol] 0.1 mg/dL Normal <0.3 [facility] Comment on above: Performed By: #### H FP, CRP, CHM6 #### [facility] (DEFAULT) [address] [place] [address] Protein [Mass/Vol] 6.0 g/dL Low 6.4-8.[address] [facility] Comment on above: Performed By: #### H FP, CRP, CHM6 #### [facility] (DEFAULT) [address] [place] [address] Albumin [Mass/Vol] 4.0 g/dL 3.5 - 5.0 g/dL [facility] ALP [Catalytic activity/Vol] 42 U/L 32 - 126 U/L [facility] ALT [Catalytic activity/Vol] 5 U/L Low 9 - 48 U/L [facility] AST [Catalytic activity/Vol] 10 U/L 10 - 39 U/L [facility] Bilirubin [Mass/Vol] 0.5 mg/[facility]5 mg/dL [facility] Bilirubin.direct [Mass/Vol] 0.1 mg/dL NINF - 0.3 mg/dL [facility] Protein [Mass/Vol] 6.0 g/dL Low 6.4 - 8.3 g/dL [facility] HEPATITIS BATTERY, CHRONICon 02-25-2023 Hep B Core Ab,Total (IgG+IgM) Negative Normal Negative [facility] Comment on above: Performed By: #### H EP3B #### [facility] (DEFAULT) [address] [place] [address] Hep B Surface Ab Negative Normal Negative [facility] Comment on above: Performed By: #### H EP3B #### [facility] (DEFAULT) [address] [address] Hepatitis B Surface Ag Negative Normal Negative [facility] Comment on above: Performed By: #### H EP3B #### [facility] (DEFAULT) [address] [address] Hepatitis C Antibody Negative Normal Negative [facility] Comment on above: Performed By: #### H EP3B #### [facility] (DEFAULT) [address] [address] HIV 1&2 AB/AG Screen (P24 AG )on 02-25-2023 HIV 1&2 AB/AG Non-Reactive [facility] Hepatitis B surface antigeno n 02-25-2023 Hepatitis B Surface Antigen Non-Reactive [facility] M TUBERCULOSIS BY Carola AMOS 02-25-2023 M. TB Mitogen-Nil 9.94 IU/mL Normal [facility] Comment on above: Order Comment: The M . Tuberculosis antigen levels cannot be correlated to stage or degree of infection, response to therapy or likelihood for progression to active disease. Results from QuantiFERON TB Gold Plus must be used in conjunction with individual epidemiological history, current medical status, and results of other diagnostic evaluation. Performed By: #### Q FTB #### [facility] (DEFAULT) [address] [address] M. TB Nil 0.06 IU/mL Normal [facility] Comment on above: Order Comment: The M . Tuberculosis antigen levels cannot be correlated to stage or degree of infection, response to therapy or likelihood for progression to active disease. Results from QuantiFERON TB Gold Plus must be used in conjunction with individual epidemiological history, current medical status, and results of other diagnostic evaluation. Performed By: #### Q FTB #### [facility] (DEFAULT) [address] [address] M. TB TB1-Nil 0.01 IU/mL Normal [facility] Comment on above: Order Comment: The M . Tuberculosis antigen levels cannot be correlated to stage or degree of infection, response to therapy or likelihood for progression to active disease. Results from QuantiFERON TB Gold Plus must be used in conjunction with individual epidemiological history, current medical status, and results of other diagnostic evaluation. Performed By: #### Q FTB #### [facility] (DEFAULT) [address] [address] M. TB TB2-Nil 0.02 IU/mL Normal [facility] Comment on above: Order Comment: The M . Tuberculosis antigen levels cannot be correlated to stage or degree of infection, response to therapy or likelihood for progression to active disease. Results from QuantiFERON TB Gold Plus must be used in conjunction with individual epidemiological history, current medical status, and results of other diagnostic evaluation. Performed By: #### Q FTB #### [facility] (DEFAULT) [address] [place] [address] M. Tuberculosis by Quantiferon in tube Negative Normal Negative [facility] Comment on above: Order Comment: The M . Tuberculosis antigen levels cannot be correlated to stage or degree of infection, response to therapy or likelihood for progression to active disease. Results from QuantiFERON TB Gold Plus must be used in conjunction with individual epidemiological history, current medical status, and results of other diagnostic evaluation. Performed By: #### Q FTB #### [facility] (DEFAULT) [address] [place] [address] No Panel Informationon 02-25 Interpretation and review of laboratory results Abnormal [facility] Syphilis Total(Unknown Syphi lis Status)on 02-25-2023 Syphilis Non-Reactive [facility] THIOPURINE METHYL-TRANSFERAS Matt 02-25-2023 6-METHYLMERCAPTOPURIN E 3.85 nmol/mL/h Normal 3.00-6.66 [facility] Comment on above: Performed By: #### H EMO #### [facility] (DEFAULT) [address] [address] 6-Methylmercaptopurin e riboside 5.67 nmol/mL/h Normal 5.04-9.57 [facility] Comment on above: Performed By: #### H EMO #### [facility] (DEFAULT) [address] [address] 6-Methylthioguanine riboside 2.60 nmol/mL/h Low 2.70-5.84 [facility] Comment on above: Performed By: #### H EMOGC #### [facility] (DEFAULT) [address] [address] REVIEWED BY Katie Rubin, PhD Normal [facility] Comment on above: Result Comment: Test Performed by: [place] [address] Windows Server Specialist: Mynor Browne M.D. Ph.D.; CLIA# [id number] Performed By: #### H [facility] #### [facility] (DEFAULT) [address] [address] Thiopurine Methyltransferase SEE COMMENTS Normal [facility] Comment on above: Result Comment: *Nor mal* In this whole blood sample, the profile of activity of thiopurine methyltransferase using three different substrates was normal or essentially normal. ADDITIONAL INFORMATION Liquid Chromatography-Tandem Mass Spectrometry (LC-MS/MS) This test was developed and its performance characteristics determined by [facility] in a manner consistent with CLIA requirements. This test has not been cleared or approved by the U.S. Food and Drug Administration. Performed By: #### H EMOGC #### [facility] (DEFAULT) [address] [address] Type and screenon 02-25-2023 Abo/Rh(D) Positive [facility] VITAMIN B12on 02-25-2023 Cobalamin (Vitamin B12) [Mass/Vol] 421 pg/mL Normal 211-911 [facility] Comment on above: Result Comment: Test ing of Methylmalonic Acid and Intrinsic Factor Blocking Antibody are recommended if clinical suspicion for pernicious anemia due to B12 deficiency is high for patients with intermediate B12 levels (211 to 400 pg/mL) to rule out spurious heterophile antibodies. Performed By: #### H EMO #### [facility] (DEFAULT) [address] [place] [address] Cobalamin (Vitamin B12) [Mass/Vol] 421 pg/mL 211 - 911 pg/mL [facility] Comment on above: Testing of Methylmal onic Acid and Intrinsic Factor Blocking Antibody are recommended if clinical suspicion for pernicious anemia due to B12 deficiency is high for patients with intermediate B12 levels (211 to 400 pg/mL) to rule out spurious heterophile antibodies. Interpretation and review of laboratory results Normal [facility] ZINC, SERUMon 02-25-2023 ZINC, SERUM 62 mcg/dL Normal 60-106 [facility] Comment on above: Result Comment: ADDITIONAL INFORMATION This test was developed and its performance characteristics determined by [facility] in a manner consistent with CLIA requirements. This test has not been cleared or approved by the U.S. Food and Drug Administration. Test Performed by: [facility] [place] [address] Windows Server Specialist: Mynor Browne M.D. Ph.D.; CLIA# [id number] Performed By: #### Y ZINC #### [facility] (DEFAULT) [address] [place] [address] Ustekinumab Quantitation wit h Antibodies, Serumon 05-07-2022 Ustekinumab Ab, S Normal [facility] Comment on above: Result Comment: <10 Reference range: <10 Unit: AU/mL (NOTE) Absence of detectable uwlhyecc-uk-lfjvihusxcq. ADDITIONAL INFORMATION This test was developed and its performance characteristics determined by [facility] in a manner consistent with CLIA requirements. This test has not been cleared or approved by the U.S. Food and Drug Administration. Performed at [facility] , [address] [place], [place] [address] Ustekinumab QN, S 7.3 Normal [facility] Comment on above: Result Comment: Unit : mcg/mL (NOTE) REFERENCE VALUE Lower limit of quantitation = 0.3 mcg/mL ADDITIONAL INFORMATION This test was developed and its performance characteristics determined by [facility] in a manner consistent with CLIA requirements. This test has not been cleared or approved by the U.S. Food and Drug Administration. CBC Auto Diff Reflex Manualo n 05-05-2022 Absolute Basophils 0.0 10*3/uL Normal [facility] Absolute Eosinophils 0.3 10*3/uL Normal [facility] Absolute Immature Granulocytes 0.0 10*3/uL Normal [facility] Absolute Lymphocytes 1.7 10*3/uL Normal [facility] Absolute Monocytes 0.7 10*3/uL Normal [facility] Absolute Neutrophils 6.9 10*3/uL Normal [facility] Automated Absolute Neutrophil 6.9 10*3/mm3 Normal [facility] Comment on above: Result Comment: Auto mated Absolute Neutrophil Count (ANC) is directly measured using a hematology instrument. ANC determined from manual differential cell count may differ. No [facility] reference range has been validated for this assay. Basophil 0.5 % Normal 0.2-1.6 [facility] Comment No reference range established for absolute counts. Normal [facility] Differential Type Automated Normal [facility] Eosinophil 2.8 % Normal 0.2-8.1 [facility] Immature Granulocytes 0.5 % Normal [facility] Lymphocyte 17.3 % Normal 9.0-51.0 [facility] MCH 31.2 pg Normal 26.0-34.0 [facility] MCHC 33.8 % Normal 31.0-37.0 [facility] MCV 92.1 fL Normal 80.0-100.0 [facility] Monocyte 7.3 % Normal 4.0-13.0 [facility] MPV 10.1 fL Normal 9.3-13.0 [facility] Neutrophil 71.6 % Normal 40.8-78.2 [facility] Platelet Count 242 10*3/uL Normal 142-508 [facility] RBC 4.3 10*6/uL Normal 4.0-5.2 [facility] RDW 13.0 % Normal 10-14.1 [facility] WBC 9.6 10*3/uL Normal 4.5-13.0 [facility] CRPon 05-05-2022 CRP [Mass/Vol] mg/L Normal <1.0 [facility] Comprehensive Metabolic Pane jeremias 05-05-2022 Albumin [Mass/Vol] 4.1 g/dL Normal 3.4-5.2 [facility] ALP [Catalytic activity/Vol] 53 U/L Normal 50-136 [facility] ALT [Catalytic activity/Vol] 21 U/L Normal <36 [facility] AST [Catalytic activity/Vol] 54 U/L High 15-50 [facility] Bilirubin [Mass/Vol] 0.6 mg/dL Normal 0.1-1.0 [facility] Calcium [Mass/Vol] 9.3 mg/dL Normal 8-10.5 [facility] Chloride [Moles/Vol] 107 mmol/L Normal 98-110 [facility] CO2 [Moles/Vol] 25 mmol/L Normal 21-30 [facility] Creatinine [Mass/Vol] 0.56 mg/dL Normal 0.5-1 [facility] Glucose [Mass/Vol] 90 mg/dL Normal 60-115 [facility] Potassium [Moles/Vol] 3.9 mmol/L Normal 3.6-4.9 [facility] Protein [Mass/Vol] 6.6 g/dL Normal 6.5-8.6 [facility] Sodium [Moles/Vol] 138 mmol/L Normal 135-145 [facility] Urea nitrogen [Mass/Vol] 7 mg/dL Normal 5-18 [facility] Reference Lab Teston 023 Comment: Test has been reordered using orderable test code. Normal [facility] Reference Lab: Test has been reordered using orderable test code. Normal [facility] Reference Range: Test has been reordered using orderable test code. Normal [facility] Result: Test has been reordered using orderable test code. Normal [facility] Test Name USTEKINUMAB LEVEL AN D ANTIBODY LEVELS Normal [facility] Sedimentation Rateon 023 Sedimentation Rate 5 mm/h Normal <20 [facility] Vitamin D 25 Hydroxyon 05-05 Vitamin D 25 Hydroxy 30 ng/mL Normal 30-[address] [facility] Comment on above: Result Comment: (NOTE) [...] by Herbie Pace on 04/03/2022 1551 Normal [facility] Payroll Technician Soluble Transferrin Receptor on 03-22-2022 Soluble Transferrin Receptor 2.9 Normal [facility] Comment on above: Result Comment: Refe [...] Fe Status High Normal High Performed By: [employer] [address] [place] [address] Mixing Pan Tender: New Caraballo MD, PhD Performed at [facility], [address] [place] [address] Performed By: #### X SOLTR ####[place] [address] CBC Auto Diff Reflex Manualo n 03-20-2022 Absolute Basophils 0.0 10*3/uL Normal [facility] Absolute Eosinophils 0.3 10*3/uL Normal [facility] Absolute Immature Granulocytes 0.0 10*3/uL Normal [facility] Absolute Lymphocytes 2.1 10*3/uL Normal [facility] Absolute Monocytes 0.9 10*3/uL Normal [facility] Absolute Neutrophils 8.1 10*3/uL Normal [facility] Basophil 0.3 % Normal 0.2-1.6 [facility] Comment No reference range established for absolute counts. Normal [facility] Differential Type Automated Normal [facility] Eosinophil 2.7 % Normal 0.2-8.1 [facility] Immature Granulocytes 0.4 % Normal [facility] Lymphocyte 18.5 % Normal 9.0-51.0 [facility] Monocyte 7.7 % Normal 4.0-13.0 [facility] Neutrophil 70.4 % Normal 40.8-78.2 [facility] Automated Absolute Neutrophil 8.1 10*3/mm3 Normal [facility] Comment on above: Result Comment: Auto mated Absolute Neutrophil Count (ANC) is directly measured using a hematology instrument. ANC determined from manual differential cell count may differ. No [facility] reference range has been validated for this assay. MCH 30.9 pg Normal 26.0-34.0 [facility] MCHC 35.6 % Normal 31.0-37.0 [facility] MCV 87.0 fL Normal 80.0-100.0 [facility] MPV 10.2 fL Normal 9.3-13.0 [facility] Platelet Count 220 10*3/uL Normal 142-508 [facility] RBC 4.5 10*6/uL Normal 4.0-5.2 [facility] RDW 12.0 % Normal 10-14.1 [facility] WBC 11.5 10*3/uL Normal 4.5-13.0 [facility] CRPon 03-20-2022 CRP 0.6 mg/dL Normal <1.0 [facility] Comprehensive Metabolic Pane jeremias 03-20-2022 Albumin [Mass/Vol] 3.9 g/dL Normal 3.4-5.2 [facility] ALP [Catalytic activity/Vol] 53 U/L Normal 50-136 [facility] ALT [Catalytic activity/Vol] 12 U/L Normal <36 [facility] AST [Catalytic activity/Vol] 22 U/L Normal 15-50 [facility] Bilirubin [Mass/Vol] 0.6 mg/dL Normal 0.1-1.0 [facility] Calcium [Mass/Vol] 8.9 mg/dL Normal 8-10.5 [facility] Chloride [Moles/Vol] 106 mmol/L Normal 98-110 [facility] CO2 [Moles/Vol] 24 mmol/L Normal 21-30 [facility] Creatinine [Mass/Vol] 0.50 mg/dL Normal 0.5-1 [facility] Glucose [Mass/Vol] 88 mg/dL Normal 60-115 [facility] Potassium [Moles/Vol] 3.8 mmol/L Normal 3.6-4.9 [facility] Protein [Mass/Vol] 6.3 g/dL Low 6.5-8.6 [facility] Sodium [Moles/Vol] 135 mmol/L Normal 135-145 [facility] Urea nitrogen [Mass/Vol] 5 mg/dL Normal 5-18 [facility] Ferritinon 03-20-2022 Ferritin [Mass/Vol] 177 ng/mL Normal 4-233 Natcharbel jovanny [facility] Iron and TIBCon 03-20-2022 Iron [Mass/Vol] 122 ug/dL Normal 65-175 [facility] Iron Saturation 43 % Normal 15-50 [facility] TIBC 280 ug/dL Normal 250-450 [facility] Lab Reporton 03-20-2022 [facility] Lab Report SURGICAL PATHOLOGY REPORT Patient Name: KINGS HATFIELD Jenny [facility] Rec. # : [id number] : 2000 Specimen # : [id number] Date Taken: 03/20/2022 Date Reported: 03/24/2022 [...] A3 - bisected soft tissue . OSKAR Smith PA /03/21/2022 Microscopic Description Microscopic examination has been performed in all specimens, and all relevant histological findings are incorporated into the final diagnoses. Testing performed at [facility], [address] [place] [id number], , . Normal [facility] Comment on above: Performed By: #### S URG ####[place] [address] POCT HCG, Urine Qualitativeo n 03-20-2022 Beta HCG ( test) Ql (U) Negative Normal NEG [facility] Comment: First morning urine is the specimen of choice for urine test. False negative results can occur when random urine specimens are tested. A serum test is recommended if results do not correlate with the patient's clinical condition. Normal [facility] Surgical Pathologyon 022 Specimen description RIGHT POSTERIOR CARLY K MASS Normal [facility] Comment on above: Performed By: #### S URGSR #### [place] [address] Surgical Pathology Specimen Specimen has been received and is being processed. A separate report will be issued. Normal [facility] Comment on above: Performed By: #### S URGSR #### [place] [address] Total B Cell (CD19, CD20) Qu antitation by Flow, Bloodon 03-20-2022 CD19+CD20+ B cells (%Lymphs) 0 % Low 6-20 [facility] Comment on above: Performed By: #### T BCQN ####[place] [address] CD19+CD20+ B cells AB 0 cells/uL Low 80-407 [facility] Comment on above: Performed By: #### T BCQN ####Performed at [address] [address] CD45+ Lymphocytes (ALC) AB 1856 cells/uL Normal 981-5970 [facility] Comment on above: Performed By: #### T BCQN ####[place] [address] Final Diagnosis Normal [facility] Comment on above: Result Comment: Abse nt CD19+20+ B cells in blood. Assay useful for evaluation of total CD19+CD20+ B cells in the context of B cell depleting therapies, or any context where only a global B cell count is required. Performed By: #### T BCQN ####Performed at [address] [address] Note This test was developed and its performance characteristics determined by [facility]. It has not been cleared or approved by the FDA. The laboratory is regulated under CLIA as qualified to perform high complexity testing. This test is used for clinical purposes. It should not be regarded as investigational or for research. Normal [facility] Comment on above: Performed By: #### T BCQN ####Performed at [address] [address] Vitamin D 25 Hydroxyon 03-20 Vitamin D 25 Hydroxy 30 ng/mL Normal 30-[address] [facility] Comment on above: Result Comment: (NOTE) [...] by Herbie Pace on 03/10/2022 1220 Normal [facility] Payroll Technician Soluble Transferrin Receptor on 02-06-2022 Soluble Transferrin Receptor 4.1 Normal [facility] Comment on above: Result Comment: Refe [...] Fe Status High Normal High Performed By: [employer] [address] [place] [address] Mixing Pan Tender: New Caraballo MD, PhD Performed at [facility], [address] [place] [address] Performed By: #### X SOLACACIA #### Performed at [facility], [address] [place] [address] Ferritinon 02-04-2022 Ferritin [Mass/Vol] 32 ng/mL Normal 4-233 [facility] Phosphoruson 02-04-2022 Phosphate [Mass/Vol] 3.2 mg/dL Normal 2.5-4.7 [facility] XR Chest 2 Views*on 12-07-19 XR Chest 2 Views* HISTORY: Acute Cough FINDINGS: Comparison made with prior examiantion of November 19, 2021. No new infiltrates, consolidation or pneumothorax. Mild peribronchial thickening accentuated by slightly greater reduction in lung volumes on the current examination. IMPRESSION: 1. No new infiltrates or significant post-inflammatory sequela. Report reported and signed by Herbie Pace on 12/06/2021 1352 Normal [facility] Payroll Technician XR Chest 2 Views*on 11-20-19 XR Chest 2 Views* FINDINGS: No acute cardiac or pulmonary disease is identified. No worrisome mass lesions or infiltrates are seen. No pulmonary edema or pneumothorax is present. Cardiac silhouette size is normal. Skeletal structures are normal. IMPRESSION: No acute cardiac or pulmonary disease Report reported and signed by Herbie Pace on 11/19/2021 1128 Normal [facility] Payroll Technician Complete Blood Count with Au to Diffon 07-30-2021 Basophils (Bld) [#/Vol] 0.06 10*3/uL Normal 0.00-0.20 [facility] Payroll Technician Comment on above: Performed By: #### C BCAD #### [facility] [address] [place], [place] [id number] Basophils/100 WBC (Bld) 0.5 % Normal [facility] Specialist Comment on above: Performed By: #### C BCAD #### [facility] [address] [place], [place] [id number] Eosinophils (Bld) [#/Vol] 0.35 10*3/uL Normal 0.02-0.50 [facility] Specialist Comment on above: Performed By: #### C BCAD #### [facility] [address] [place], [place] [id number] Eosinophils/100 WBC (Bld) 2.8 % Normal [facility] Specialist Comment on above: Performed By: #### C BCAD #### [facility] [address] [place], [place] [id number] Erythrocyte distribution width (RBC) [Ratio] 12.7 % Normal 11.0-15.0 [facility] Specialist Comment on above: Performed By: #### C BCAD #### [facility] [address] [place], [place] [id number] Hematocrit (Bld) [Volume fraction] 37.5 % Normal 35.0-47.0 [facility] Specialist Comment on above: Performed By: #### C BCAD #### [facility] [address] [place], [place] [id number] Hemoglobin (Bld) [Mass/Vol] 12.2 g/dL Normal 11.6-15.5 [facility] Specialist Comment on above: Performed By: #### C BCAD #### [facility] [address] [place], [place] [id number] Lymphocytes (Bld) [#/Vol] 2.5 10*3/uL Normal 0.9-3.9 [facility] Specialist Comment on above: Performed By: #### C BCAD #### [facility] [address] [place], [place] [id number] Lymphocytes/100 WBC (Bld) 19.8 % Normal [facility] Specialist Comment on above: Performed By: #### C BCAD #### [facility] [address] [place], [place] [id number] MCH (RBC) [Entitic mass] 29.7 pg Normal 27.0-33.0 [facility] Specialist Comment on above: Performed By: #### C BCAD #### [facility] [address] [place], [place] [id number] MCHC (RBC) [Mass/Vol] 32.5 g/dL Normal 32.0-36.0 [facility] Comment on above: Performed By: #### C BCAD #### [facility] [address] [place], [place] [id number] MCV (RBC) [Entitic vol] 91 fL Normal 80-100 [facility] Specialist Comment on above: Performed By: #### C BCAD #### [facility] [address] [place], [place] [id number] Monocytes (Bld) [#/Vol] 0.9 10*3/uL Normal 0.2-0.9 [facility] Specialist Comment on above: Performed By: #### C BCAD #### [facility] [address] [place], [place] [id number] Monocytes/100 WBC (Bld) 7.2 % Normal [facility] Specialist Comment on above: Performed By: #### C BCAD #### [facility] [address] [place], [place] [id number] Neutrophils (Bld) [#/Vol] 8.8 10*3/uL High 1.5-7.8 [facility] Specialist Comment on above: Performed By: #### C BCAD #### [facility] [address] [place], [place] [id number] Neutrophils/100 WBC (Bld) 69.3 % Normal [facility] Specialist Comment on above: Performed By: #### C BCAD #### [facility] [address] [place], [place] [id number] Platelet mean volume (Bld) [Entitic vol] 10.20 fL Normal 7.50-12.50 [facility] Specialist Comment on above: Performed By: #### C BCAD #### [facility] [address] [place], [place] [id number] Platelets (Bld) [#/Vol] 258 10*3/uL Normal 140-400 [facility] Comment on above: Performed By: #### C BCAD #### [facility] [address] [place], [place] [id number] RBC (Bld) [#/Vol] 4.11 10*6/uL Normal 3.90-5.20 [facility] Comment on above: Performed By: #### C BCAD #### [facility] [address] [place], [place] [id number] RDW-SD 41.4 fL Normal 37.0-50.0 [facility] Comment on above: Performed By: #### C BCAD #### [facility] [address] [place], [place] [id number] WBC (Bld) [#/Vol] 12.7 10*3/uL High 3.8-11.0 [facility] Comment on above: Performed By: #### C BCAD #### [facility] [address] [place], [place] [id number] IgG Subclasseson 07-12-2021 IgG subclass 1 300 mg/dL Normal 240-1118 [facility] Comment on above: Result Comment: (NOT E) REFERENCE INTERVAL: Immunoglobulin G Subclass 1 The total IgG (mg/dL) can be derived from the sum of the subclass IgG1, IgG2, IgG3, and IgG4 values. However, a confirmatory and more precise total IgG is available by the turbidimetric method of quantitation for total IgG. Refer to test Immunoglobulin G, Serum ([id number]). Access complete set of age- and/or gender-specific reference intervals for this test in the [employer] [facility] Test Directory (APROOFED). Performed By: #### A IGGSB, APNAB1 #### [facility] [address] [place] [address] Windows Server Specialist: Cody Dye MD #### IFX, FLLS, IMMS, CDP, THYGLA #### [facility] [address] [place], [place] [id number] Windows Server Specialist: Jone Eller MD IgG subclass 2 193 mg/dL Normal 124-549 [facility] Comment on above: Result Comment: (NOT E) REFERENCE INTERVAL: Immunoglobulin G Subclass 2 Access complete set of age- and/or gender-specific reference intervals for this test in the [employer] Laboratory Test Directory (APROOFED). Performed By: #### A IGGSB, APNAB1 #### [facility] [address] [place] [address] Windows Server Specialist: Cody Dye MD #### IFX, FLLS, IMMS, CDP, THYGLA #### [address] [id number] Windows Server Specialist: Jone Eller MD IgG subclass 3 61 mg/dL Normal 21-134 [facility] Comment on above: Result Comment: (NOT E) REFERENCE INTERVAL: Immunoglobulin G Subclass 3 Access complete set of age- and/or gender-specific reference intervals for this test in the [employer] Laboratory Test Directory (APROOFED). Performed By: #### A IGGSB, APNAB1 #### [facility] [address] [place] [address] Windows Server Specialist: Cody Dye MD #### IFX, FLLS, IMMS, CDP, THYGLA #### [address] [id number] Windows Server Specialist: Jone Eller MD IgG subclass 4 3 mg/dL Normal 1-123 [facility] Comment on above: Result Comment: (NOT E) REFERENCE INTERVAL: Immunoglobulin G Subclass 4 Access complete set of age- and/or gender-specific reference intervals for this test in the [employer] Laboratory Test Directory (APROOFED). Performed by [facility], [address] [place] [address] [id number] [email or web address], Ruthie Augustin MD, Lab. Director Performed By: #### A IGGSB, APNAB1 #### [facility] [address] [place] [place], [place] [id number] Windows Server Specialist: Cody Dye MD #### IFX, FLLS, IMMS, CDP, THYGLA #### [facility] [address] [place] [address] Windows Server Specialist: Jone Eller MD Pneumococcal Ab, IgGon 07-12 S.pneum Interp See Note Normal [facility] Comment on above: Result Comment: (NOT E) [...] long-term protection(2). References: 1. Goldie GALAVIZ, Kedar JW, Vinny X, HE, Alber CARDENAS. Multilaboratory assessment of threshold versus fold-change algorithms for minimizing analytical variability in multiplexed pneumococcal IgG measurements. Clin Vaccine Immunol. 2014;21(7):982-8. 2. Alber Larose. Use and Clinical Interpretation of Pneumococcal Antibody Measurements in the Evaluation of Humoral Immune Function. Clin Vaccine Immunol. 2015;22(2):148-152. This test was developed and its performance characteristics determined by [facility]. It has not been cleared or approved by the [place] Food and Drug Administration. This test was performed in a CLIA certified laboratory and is intended for clinical purposes. Performed By: [address] [address] Mixing Pan Tender: Ruthie Augustin MD Performed By: #### A IGGSB, APNAB1 #### [facility] [address] [place] [address] Windows Server Specialist: Cody Dey MD #### IFX, FLLS, IMMS, CDP, THYGLA #### [address] [phone] Windows Server Specialist: Jone Eller MD S.pneum type 1,IgG 0.11 ug/mL Normal [facility] Comment on above: Performed By: #### A IGGSB, APNAB1 #### [address] [address] Windows Server Specialist: Cody Dye MD #### IFX, FLLS, IMMS, CDP, THYGLA #### [address] [phone] Windows Server Specialist: Jone Eller MD S.pneum type 12F,IgG 0.14 ug/mL Normal [facility] Comment on above: Performed By: #### A IGGSB, APNAB1 #### [address] [phone] Windows Server Specialist: Cody Dye MD #### IFX, FLLS, IMMS, CDP, THYGLA #### [address] [phone] Windows Server Specialist: Jone Eller MD S.pneum type 14,IgG 0.19 ug/mL Normal [facility] Comment on above: Performed By: #### A IGGSB, APNAB1 #### [facility] [address] [address] Windows Server Specialist: Cody Dye MD #### IFX, FLLS, IMMS, CDP, THYGLA #### [address] [phone] Windows Server Specialist: Jone Eller MD S.pneum type 18C,IgG 6.82 ug/mL Normal [facility] Comment on above: Performed By: #### A IGGSB, APNAB1 #### [facility] [address] [place] [address] Windows Server Specialist: Cody Dye MD #### IFX, FLLS, IMMS, CDP, THYGLA #### [place] [phone] Windows Server Specialist: Jone Eller MD S.pneum type 19F,IgG 10.07 ug/mL Normal [facility] Comment on above: Performed By: #### A IGGSB, APNAB1 #### [facility] [address] [place] [address] Windows Server Specialist: Cody Dye MD #### IFX, FLLS, IMMS, CDP, THYGLA #### [place] [phone] Windows Server Specialist: Jone Eller MD S.pneum type 23F,IgG 2.17 ug/mL Normal [facility] Comment on above: Performed By: #### A IGGSB, APNAB1 #### [facility] [address] [place] [place], [place] [id number] Windows Server Specialist: Cody Dye MD #### IFX, FLLS, IMMS, CDP, THYGLA #### [address] 1080508 Windows Server Specialist: Jone Eller MD S.pneum type 3,IgG 0.92 ug/mL Normal [facility] Comment on above: Performed By: #### A IGGSB, APNAB1 #### [facility] [address] [place] [address] Windows Server Specialist: Cody Dye MD #### IFX, FLLS, IMMS, CDP, THYGLA #### [address] [phone] Windows Server Specialist: Jone Eller MD S.pneum type 4,IgG 0.08 ug/mL Normal [facility] Comment on above: Performed By: #### A IGGSB, APNAB1 #### [facility] [address] [place] [address] Windows Server Specialist: Cody Dye MD #### IFX, FLLS, IMMS, CDP, THYGLA #### [address] [phone] Windows Server Specialist: Jone Eller MD S.pneum type 5,IgG 3.04 ug/mL Normal [facility] Comment on above: Performed By: #### A IGGSB, APNAB1 #### [facility] [address] [place] [place], [place] [phone] Windows Server Specialist: Cody Dye MD #### IFX, FLLS, IMMS, CDP, THYGLA #### [address] [phone] Windows Server Specialist: Jone Eller MD S.pneum type 6B,IgG 0.76 ug/mL Normal [facility] Comment on above: Performed By: #### A IGGSB, APNAB1 #### [facility] [address] [place] [place], [place] [id number] Windows Server Specialist: Cody Dye MD #### IFX, FLLS, IMMS, CDP, THYGLA #### [address] [phone] Windows Server Specialist: Jone Eller MD S.pneum type 7F,IgG 1.36 ug/mL Normal [facility] Comment on above: Performed By: #### A IGGSB, APNAB1 #### [facility] [address] [place] [address] Windows Server Specialist: Cody Dye MD #### IFX, FLLS, IMMS, CDP, THYGLA #### [facility] [address] [place] [address] Windows Server Specialist: Jone Eller MD S.pneum type 8,IgG 0.40 ug/mL Normal [facility] Comment on above: Performed By: #### A IGGSB, APNAB1 #### [facility] [address] [place] [place], [place] [id number] Windows Server Specialist: Cody Dye MD #### IFX, FLLS, IMMS, CDP, THYGLA #### [address] [phone] Windows Server Specialist: Jone Eller MD S.pneum type 9N,IgG 0.54 ug/mL Normal [facility] Comment on above: Performed By: #### A IGGSB, APNAB1 #### [facility] [address] [place] [place], [place] [id number] Windows Server Specialist: Cody Dye MD #### IFX, FLLS, IMMS, CDP, THYGLA #### [address] [phone] Windows Server Specialist: Jone Eller MD S.pneum type 9V,IgG 0.75 ug/mL Normal [facility] Comment on above: Performed By: #### A IGGSB, APNAB1 #### [facility] [address] [place] [place], [place] [id number] Windows Server Specialist: Cody Dye MD #### IFX, FLLS, IMMS, CDP, THYGLA #### [facility] [address] [place] [address] [phone] Windows Server Specialist: Jone Eller MD Immunofixation,Bloodon 07-10 IFX - Interpret. IMMUNOFIXATION IS NEGATIVE FOR MONOCLONAL IMMUNOGLOBULIN. Normal [facility] Comment on above: Performed By: #### A IGGSB, APNAB1 #### [facility] [address] [place] [address] Windows Server Specialist: Cody Dye MD #### IFX, FLLS, IMMS, CDP, THYGLA #### [address] [address] Windows Server Specialist: Jone Eller MD Pathologist Review: ELECTRONICALLY SIGNED. VADIM TURNER M.D. Normal [facility] Comment on above: Performed By: #### A IGGSB, APNAB1 #### [facility] [address] [place] [address] Windows Server Specialist: Cody Dye MD #### IFX, FLLS, IMMS, CDP, THYGLA #### [address] [address] Windows Server Specialist: Jone Eller MD Lymphocyte Subseton 07-11-19 22 Ab(CD3-,CD56+) 123 /uL Normal 90-600 [facility] Comment on above: Performed By: #### A IGGSB, APNAB1 #### [facility] [address] [place] [address] Windows Server Specialist: Cody Dye MD #### IFX, FLLS, IMMS, CDP, THYGLA #### [address] [address] Windows Server Specialist: Jone Eller MD Ab.T Help(CD3+,CD4+) 1652 /uL High 309-1571 [facility] Comment on above: Performed By: #### A IGGSB, APNAB1 #### [facility] [address] [place] [address] Windows Server Specialist: Cody Dye MD #### IFX, FLLS, IMMS, CDP, THYGLA #### [address] [address] Windows Server Specialist: Jone Eller MD Ab.T Sup.(CD3+,CD8+) 641 /uL Normal 282-999 [facility] Comment on above: Performed By: #### A IGGSB, APNAB1 #### [facility] [address] [place] [address] Windows Server Specialist: Cody Dye MD #### IFX, FLLS, IMMS, CDP, THYGLA #### [address] [address] Windows Server Specialist: Jone Eller MD Abs. Total B (CD19+) 0 /uL Low 71-567 [facility] Comment on above: Performed By: #### A IGGSB, APNAB1 #### [facility] [address] [place] [address] Windows Server Specialist: Cody Dye MD #### IFX, FLLS, IMMS, CDP, THYGLA #### [address] [address] Windows Server Specialist: Jone Eller MD Abs. Total T (CD3+) 2317 /uL High 411-2061 [facility] Comment on above: Performed By: #### A IGGSB, APNAB1 #### [facility] [address] [place] [address] Windows Server Specialist: Cody Dye MD #### IFX, FLLS, IMMS, CDP, THYGLA #### [address] [address] Windows Server Specialist: Jone Eller MD H/S Ratio(CD4+/CD8+) 2.58 Normal 0.6-2.8 [facility] Comment on above: Performed By: #### A IGGSB, APNAB1 #### [facility] [address] [place] [address] Windows Server Specialist: Cody Dye MD #### IFX, FLLS, IMMS, CDP, THYGLA #### [facility] [address] [place] [address] Windows Server Specialist: Jone Eller MD Lymphocytes/100 WBC (Bld) 17 % Low 25-45 [facility] Comment on above: Performed By: #### A IGGSB, APNAB1 #### [facility] [address] [place] [address] Windows Server Specialist: Cody Dye MD #### IFX, FLLS, IMMS, CDP, THYGLA #### [address] [address] Windows Server Specialist: Jone Eller MD NK (CD3-,CD56+) 5 % Low 6-29 [facility] Comment on above: Performed By: #### A IGGSB, APNAB1 #### [facility] [address] [place] [address] Windows Server Specialist: Cody Dye MD #### IFX, FLLS, IMMS, CDP, THYGLA #### [address] [address] Windows Server Specialist: Jone Eller MD T [place] (CD3+,CD4+) 67 % High 27-64 [facility] Comment on above: Performed By: #### A IGGSB, APNAB1 #### [facility] [address] [place] [address] Windows Server Specialist: Cody Dye MD #### IFX, FLLS, IMMS, CDP, THYGLA #### [address] [address] Windows Server Specialist: Jone Eller MD T Sup. (CD3+, CD8+) 26 % Normal 17-48 [facility] Comment on above: Performed By: #### A IGGSB, APNAB1 #### [facility] [address] [place] [address] Windows Server Specialist: Cody Dye MD #### IFX, FLLS, IMMS, CDP, THYGLA #### [address] [address] Windows Server Specialist: Jone Eller MD Total B (CD19+) 0 % Low 5-25 [facility] Comment on above: Performed By: #### A IGGSB, APNAB1 #### [facility] [address] [place] [address] Windows Server Specialist: Cody Dye MD #### IFX, FLLS, IMMS, CDP, THYGLA #### [place] [address] Windows Server Specialist: Jone Eller MD Total T (CD3+) 94 % Normal 57-94 [facility] Comment on above: Performed By: #### A IGGSB, APNAB1 #### [facility] [address] [place] [address] Windows Server Specialist: Cody Dye MD #### IFX, FLLS, IMMS, CDP, THYGLA #### [place] [address] Windows Server Specialist: Jone Eller MD WBC (Bld) [#/Vol] 14.5 10*3/uL High 4.5-13.5 [facility] Comment on above: Performed By: #### A IGGSB, APNAB1 #### [facility] [address] [place] [address] Windows Server Specialist: Cody Dye MD #### IFX, FLLS, IMMS, CDP, THYGLA #### [place] [address] [place] [address] Windows Server Specialist: Jone Eller MD Thyroglobulin Abon 2 Thyroglobulin Ab Qn [IU]/mL Normal 0.0-40.0 [facility] Comment on above: Result Comment: Reference Range: <40.0 Negative 40.0-60.0 Equivocal >60.0 Positive When results are Equivocal, it is recommended to retest after 8-12 weeks. Performed By: #### A IGGSB, APNAB1 #### [facility] [address] [place] [address] Windows Server Specialist: Cody Dye MD #### IFX, FLLS, IMMS, CDP, THYGLA #### [facility] [address] [place] [address] Windows Server Specialist: Jone Eller MD CBC with Auto Differentialon 07-09-2021 Absolute Eos # 0.43 [facility] Absolute Immature Granulocyte 0.08 [facility] Lymph # 2.41 [facility] Absolute Mora # 1.26 [facility] Basophils (Bld) [#/Vol] 0.08 10*3/uL [facility] Basophils/100 WBC (Bld) 1 % 0 - 2 % [facility] [employer] Eosinophils/100 WBC (Bld) 3 % 1 - 4 % [facility] Hematocrit (Bld) [Volume fraction] 40.7 % 36.3 - 47.1 % [facility] Hemoglobin.gastrointe stinal spec 1 Ql (Stl) 13.5 g/dL 11.9 - 15.1 g/dL [facility] Immature granulocytes/100 WBC (Bld) 1 % High 0 [facility] Interpretation and review of laboratory results Abnormal [facility] [employer] Lymphocytes/100 WBC (Bld) 17 % Low 25 - 45 % [facility] [employer] MCH (RBC) [Entitic mass] 30.1 pg 25.2 - 33.5 pg [facility] MCHC (RBC) [Mass/Vol] 33.2 g/dL 28.4 - 34.8 g/dL [facility] MCV (RBC) [Entitic vol] 90.8 fL 82.6 - 102.9 fL [facility] Monocytes/100 WBC (Bld) 9 % High 2 - 8 % [facility] NRBC Automated 0.0 0.0 per 100 WBC [facility] Platelet distribution width (Bld) [Ratio] 12.7 % 11.8 - 14.4 % [facility] Platelet mean volume (Bld) [Entitic vol] 9.9 fL 8.1 - 13.5 fL [facility] Platelets (Bld) [#/Vol] 277 10*3/uL [facility] RBC (Bld) [#/Vol] 4.48 10*6/uL 3.95 - 5.1 1 m/uL [facility] Segmented neutrophils/100 WBC (Bld) 69 % High 34 - 64 % [facility] Segs Absolute 10.22 [facility]) [#/Vol] 14.5 10*3/uL High [facility] CBC with Diffon 07-09-2021 Abs. Basophil 0.08 k/uL Normal 0.00-0.20 [facility] Comment on above: Performed By: #### A IGGSB, APNAB1 #### [facility] [address] [place] [place], [place] [id number] Windows Server Specialist: Cody Dye MD #### IFX, FLLS, IMMS, CDP, THYGLA #### [facility] [address] [place] [address] Windows Server Specialist: Jone Eller MD Abs.Imm.Granulocyte 0.08 k/uL Normal 0.00-0.30 [facility] Comment on above: Performed By: #### A IGGSB, APNAB1 #### [facility] [address] [place], [place] [id number] Windows Server Specialist: Cody Dye MD #### IFX, FLLS, IMMS, CDP, THYGLA #### [facility] [address] [place] [address] Windows Server Specialist: Jone Eller MD Abs.Neutrophil (Seg) 10.22 k/uL High 1.80-8.00 [facility] Comment on above: Performed By: #### A IGGSB, APNAB1 #### [facility] [address] [place] [address] Windows Server Specialist: Cody Dye MD #### IFX, FLLS, IMMS, CDP, THYGLA #### [address] [address] Windows Server Specialist: Jone Eller MD Basophils/100 WBC (Bld) 1 % Normal 0-2 [facility] Comment on above: Performed By: #### A IGGSB, APNAB1 #### [facility] [address] [place] [address] Windows Server Specialist: Cody Dye MD #### IFX, FLLS, IMMS, CDP, THYGLA #### [address] [address] Windows Server Specialist: Jone Eller MD Eosinophils (Bld) [#/Vol] 0.43 10*3/uL Normal 0.00-0.44 [facility] Comment on above: Performed By: #### A IGGSB, APNAB1 #### [facility] [address] [place] [address] Windows Server Specialist: Cody Dey MD #### IFX, FLLS, IMMS, CDP, THYGLA #### [address] [address] Windows Server Specialist: Jone Eller MD Eosinophils/100 WBC (Bld) 3 % Normal 1-4 [facility] Comment on above: Performed By: #### A IGGSB, APNAB1 #### [facility] [address] [place] [address] Windows Server Specialist: Cody Dye MD #### IFX, FLLS, IMMS, CDP, THYGLA #### [address] [address] Windows Server Specialist: Jone Eller MD Erythrocyte distribution width (RBC) [Ratio] 12.7 % Normal 11.8-14.4 [facility] Comment on above: Performed By: #### A IGGSB, APNAB1 #### [facility] [address] [place] [address] Windows Server Specialist: Cody Dye MD #### IFX, FLLS, IMMS, CDP, THYGLA #### [address] [address] Windows Server Specialist: Jone Eller MD Hematocrit (Bld) [Volume fraction] 40.7 % Normal 36.3-47.1 [facility] Comment on above: Performed By: #### A IGGSB, APNAB1 #### [facility] [address] [place] [address] Windows Server Specialist: Cody Dye MD #### IFX, FLLS, IMMS, CDP, THYGLA #### [address] [phone] Windows [employer] Specialist: Jone Eller MD Hemoglobin (Bld) [Mass/Vol] 13.5 g/dL Normal 11.9-15.1 [facility] Comment on above: Performed By: #### A IGGSB, APNAB1 #### [facility] [address] [place] [address] Windows Server Specialist: Cody Dye MD #### IFX, FLLS, IMMS, CDP, THYGLA #### [address] [phone] [employer] Specialist: Jone Eller MD Immature granulocytes/100 WBC (Bld) 1 % High 0 [facility] Comment on above: Performed By: #### A IGGSB, APNAB1 #### [facility] [address] [place] [address] Windows Server Specialist: Cody Dye MD #### IFX, FLLS, IMMS, CDP, THYGLA #### [address] [address] Windows Server Specialist: Jone Eller MD Lymphocytes (Bld) [#/Vol] 2.41 10*3/uL Normal 1.20-5.20 [facility] Comment on above: Performed By: #### A IGGSB, APNAB1 #### [facility] [address] [place] [address] Windows Server Specialist: Cody Dye MD #### IFX, FLLS, IMMS, CDP, THYGLA #### [address] [address] Windows [employer] Specialist: Jone Eller MD Lymphocytes/100 WBC (Bld) 17 % Low 25-45 [facility] Comment on above: Performed By: #### A IGGSB, APNAB1 #### [facility] [address] [place] [address] Windows [employer] Specialist: Cody Dye MD #### IFX, FLLS, IMMS, CDP, THYGLA #### [address] [address] Windows Server Specialist: Jone Eller MD MCH (RBC) [Entitic mass] 30.1 pg Normal 25.2-33.5 [facility] Comment on above: Performed By: #### A IGGSB, APNAB1 #### [facility] [address] [place] [address] Windows Server Specialist: Cody Dye MD #### IFX, FLLS, IMMS, CDP, THYGLA #### [address] [phone] [employer] Specialist: Jone Eller MD MCHC (RBC) [Mass/Vol] 33.2 g/dL Normal 28.4-34.8 [facility] Comment on above: Performed By: #### A IGGSB, APNAB1 #### [facility] [address] [place] [address] Windows Server Specialist: Cody Dye MD #### IFX, FLLS, IMMS, CDP, THYGLA #### [address] [phone] Windows [employer] Specialist: Jone Eller MD MCV (RBC) [Entitic vol] 90.8 fL Normal 82.6-102.9 [facility] Comment on above: Performed By: #### A IGGSB, APNAB1 #### [facility] [address] [place] [address] Windows Server Specialist: Cody Dye MD #### IFX, FLLS, IMMS, CDP, THYGLA #### [place] [address] Windows Server Specialist: Jone Eller MD Monocytes (Bld) [#/Vol] 1.26 10*3/uL Normal 0.10-1.40 [facility] Comment on above: Performed By: #### A IGGSB, APNAB1 #### [facility] [address] [place] [address] Windows Server Specialist: Cody Dye MD #### IFX, FLLS, IMMS, CDP, THYGLA #### [address] [address] Windows [employer] Specialist: Jone Eller MD Monocytes/100 WBC (Bld) 9 % High 2-8 [facility] Comment on above: Performed By: #### A IGGSB, APNAB1 #### [facility] [address] [place] [address] Windows Server Specialist: Cody Dye MD #### IFX, FLLS, IMMS, CDP, THYGLA #### [address] [address] Windows [employer] Specialist: Jone Eller MD Neutrophil (Seg) 69 % High 34-[address] [facility] Comment on above: Performed By: #### A IGGSB, APNAB1 #### [facility] [address] [place] [address] Windows Server Specialist: Cody Dye MD #### IFX, FLLS, IMMS, CDP, THYGLA #### [address] [address] Windows Server Specialist: Jone Eller MD NRBC Automated 0.0 per 100 WBC Normal 0.0 [facility] Comment on above: Performed By: #### A IGGSB, APNAB1 #### [facility] [address] [place] [address] Windows Server Specialist: Cody Dye MD #### IFX, FLLS, IMMS, CDP, THYGLA #### [address] [address] Windows [employer] Specialist: Jone Eller MD Platelet mean volume (Bld) [Entitic vol] 9.9 fL Normal 8.1-13.5 [facility] Comment on above: Performed By: #### A IGGSB, APNAB1 #### [facility] [address] [place] [address] Windows Server Specialist: Cody Dye MD #### IFX, FLLS, IMMS, CDP, THYGLA #### [address] [address] Windows Server Specialist: Jone Eller MD Platelets (Bld) [#/Vol] 277 10*3/uL Normal 138-453 [facility] Comment on above: Performed By: #### A IGGSB, APNAB1 #### [facility] [address] [place] [address] Windows Server Specialist: Cody Dye MD #### IFX, FLLS, IMMS, CDP, THYGLA #### [facility] [place], [place] [phone] Windows Server Specialist: Jone Eller MD RBC (Bld) [#/Vol] 4.48 10*6/uL Normal 3.95-5.11 [facility] Comment on above: Performed By: #### A IGGSB, APNAB1 #### [facility] [address] [place], [place] [id number] Windows Server Specialist: Cody Dye MD #### IFX, FLLS, IMMS, CDP, THYGLA #### [facility] [address] [place] [address] [phone] Windows [employer] Specialist: Jone Eller MD WBC (Bld) [#/Vol] 14.5 10*3/uL High 4.5-13.5 [facility] Comment on above: Performed By: #### A IGGSB, APNAB1 #### [facility] [address] [place] [address] Windows Server Specialist: Cody Dye MD #### IFX, FLLS, IMMS, CDP, THYGLA #### [facility] [address] [place] [address] [phone] [employer] Specialist: Jone Eller MD Immunoglobulin Panel (IgG, I gA, IgM)on 07-09-2021 IgA [Mass/Vol] 201 mg/dL 70 - 400 mg/dL [facility] IgG [Mass/Vol] 545 mg/dL Low 700 - 1600 mg/dL [facility] IgM [Mass/Vol] 70 mg/dL 40 - 230 mg/dL [facility] Interpretation and review of laboratory results Abnormal [facility] Immunoglobulinson 07-09-2021 IgA [Mass/Vol] 201 mg/dL Normal 70-400 [facility] Comment on above: Performed By: #### A IGGSB, APNAB1 #### [facility] [address] [place] [address] Windows Server Specialist: Coyd Dye MD #### IFX, FLLS, IMMS, CDP, THYGLA #### [facility] [address] [place] [address] [phone] [employer] Specialist: Jone Eller MD IgG [Mass/Vol] 545 mg/dL Low 700-1600 [facility] Comment on above: Performed By: #### A IGGSB, APNAB1 #### [facility] [address] [place] [address] Windows Server Specialist: Cody Dye MD #### IFX, FLLS, IMMS, CDP, THYGLA #### [facility] [address] [place] [address] [phone] [employer] Specialist: Jone Eller MD IgM [Mass/Vol] 70 mg/dL Normal 40-230 [facility] Comment on above: Performed By: #### A IGGSB, APNAB1 #### [facility] [address] [place] [address] [employer] Server Specialist: Cody Dye MD #### IFX, FLLS, IMMS, CDP, THYGLA #### [facility] [address] [place] [address] [phone] [employer] Specialist: Jone Eller MD CBC AUTO DIFFon 06-27-2021 BASO # 0.1 103/ul Normal 0.0-0.1 [facility] Comment on above: Performed By: #### T RANSFR #### [facility] [address] [place] [address] Dr. Orlando Saldivar Basophils/100 WBC (Bld) 0.5 % Normal 0.2-2.0 [facility] Comment on above: Performed By: #### T RANSFR #### [facility] [address] [place] [address] Dr. Orlando Saldivar EO # 0.4 103/ul Normal 0.0-0.7 [facility] Comment on above: Performed By: #### T RANSFR #### [facility] [address] [place] [address] Dr. Orlando Saldivar Eosinophils/100 WBC (Bld) 2.4 % Normal 0.9-7.0 [facility] Comment on above: Performed By: #### T RANSFR #### [facility] [address] [place] [address] Dr. Orlando Saldivar Erythrocyte distribution width (RBC) [Ratio] 12.8 % Normal 11.0-15.0 [facility] Comment on above: Performed By: #### T RANSFR #### [facility] [address] [place] [address] Dr. Orlando Saldivar Hematocrit (Bld) [Volume fraction] 38.1 % Normal 36.0-48.0 [facility] Comment on above: Performed By: #### T RANSFR #### [facility] [address] [place] [address] Dr. Orlando Saldivar Hemoglobin (Bld) [Mass/Vol] 12.7 g/dL Normal 12.0-16.0 [facility] Comment on above: Performed By: #### T RANSFR #### [facility] [address] [place] [address] Dr. Orlando Saldivar IG # 0.05 10e3/ul Critically high 0.00-0.03 [facility] Comment on above: Performed By: #### T RANSFR #### [facility] [address] [place] [address] Dr. Orlando Saldivar IG % 0.3 % Normal 0.0-0.5 [facility] Comment on above: Performed By: #### T RANSFR #### [facility] [address] [place] [address] Dr. Orlando Saldivar LYMPH # 2.5 103/ul Normal 1.2-3.8 [facility] Comment on above: Performed By: #### T RANSFR #### [facility] [address] [place] [address] Dr. Orlando Saldivar Lymphocytes/100 WBC (Bld) 16.1 % Critically low 20.5-60.0 [facility] Comment on above: Performed By: #### T RANSFR #### [facility] [address] [place] [address] Dr. Orlando Saldivar MANUAL DIFF REQ NO Normal [facility] Comment on above: Performed By: #### T RANSFR #### [facility] [address] [place] [address] Dr. Orlando Saldivar MCH (RBC) [Entitic mass] 30.0 pg Normal 26.7-34.0 [facility] Comment on above: Performed By: #### T RANSFR #### [facility] [address] [place] [address] Dr. Orlando Saldivar MCHC (RBC) [Mass/Vol] 33.3 g/dL Normal 29.9-35.2 [facility] Comment on above: Performed By: #### T RANSFR #### [facility] [address] [place] [address] Dr. Orlando Saldivar MCV (RBC) [Entitic vol] 90.1 fL Normal 81.0-99.0 [facility] Comment on above: Performed By: #### T RANSFR #### [facility] [address] [place] [address] Dr. Orlando Saldivar MONO # 1.0 103/ul Critically high 0.3-0.8 [facility] Comment on above: Performed By: #### T RANSFR #### [facility] [address] [place] [address] Dr. Orlando Saldivar Monocytes/100 WBC (Bld) 6.6 % Normal 1.7-12.0 [facility] Comment on above: Performed By: #### T RANSFR #### [facility] [address] [place] [address] Dr. Orlando Saldivar NEUT # 11.3 103/ul Critically high 1.4-6.5 [facility] Comment on above: Performed By: #### T RANSFR #### [facility] [address] [place] [address] Dr. Orlando Saldivar Neutrophils/100 WBC (Bld) 74.1 % Normal 43.0-75.0 [facility] Comment on above: Performed By: #### T RANSFR #### [facility] [address] [place] [address] Dr. Orlando Saldivar Platelet mean volume (Bld) [Entitic vol] 9.3 fL Critically low 9.5-13.5 [facility] Comment on above: Performed By: #### T RANSFR #### [facility] [address] [place] [address] Dr. Orlando Saldivar PLT 256 103/ul Normal 150-450 [facility] Comment on above: Performed By: #### T RANSFR #### [facility] [address] [place] [address] Dr. Orlando Saldivar RBC 4.23 106/ul Normal 4.20-5.40 [facility] Comment on above: Performed By: #### T RANSFR #### [facility] [address] [place] [address] Dr. Orlando Saldivar WBC 15.2 103/ul Critically high 4.0-11.0 [facility] Comment on above: Performed By: #### T RANSFR #### [facility] [address] [place] [address] Dr. Orlando Saldivar CRPon 06-27-2021 CRP [Mass/Vol] mg/L Normal <=1.0 [facility] Comment on above: Performed By: #### C MP, CRP #### [facility] [address] [place] [address] Dr. Orlando Saldivar PROF 14(COMP METB)on 022 Albumin [Mass/Vol] 3.8 g/dL Normal 3.5-5.0 [facility] Comment on above: Performed By: #### C MP, CRP #### [facility] [address] [place] [address] Dr. Orlando Saldivar Albumin/Globulin [Mass ratio] 1.2 {ratio} Normal [facility] Comment on above: Performed By: #### C MP, CRP #### [facility] [address] [address] [address] Orlando Saldivar ALP [Catalytic activity/Vol] 65 U/L Normal 38-126 [facility] Comment on above: Performed By: #### C MP, CRP #### [facility] [address] [address] [address] Orlando Saldivar ALT [Catalytic activity/Vol] 11 U/L Normal 9-52 [facility] Comment on above: Performed By: #### C MP, CRP #### [facility] [address] [address] [address] Orlando Saldivar Anion gap [Moles/Vol] 12.9 mmol/L Normal [facility] Comment on above: Performed By: #### C MP, CRP #### [facility] [address] [place] [address] Dr. Orlando Saldivar AST [Catalytic activity/Vol] 10 U/L Critically low 14-36 [facility] Comment on above: Performed By: #### C MP, CRP #### [facility] [address] [place] [address] Dr. Orlando Saldivar Bilirubin [Mass/Vol] 0.6 mg/dL Normal 0.2-1.3 [facility] Comment on above: Performed By: #### C MP, CRP #### [facility] [address] [place] [address] Dr. Orlando Saldivar Calcium [Mass/Vol] 9.0 mg/dL Normal 8.4-10.2 [facility] Comment on above: Performed By: #### C MP, CRP #### [facility] [address] [place] [address] Dr. Orlando Saldivar Chloride [Moles/Vol] 102 mmol/L Normal 98-107 [facility] Comment on above: Performed By: #### C MP, CRP #### [facility] [address] [address] [address] Orlando Saldivar CO2 [Moles/Vol] 28.9 mmol/L Normal 22.0-30.0 [facility] Comment on above: Performed By: #### C MP, CRP #### [facility] [address] [place] [address] Dr. Orlando Saldivar Creatinine [Mass/Vol] 0.80 mg/dL Normal 0.52-1.04 [facility] Comment on above: Performed By: #### C MP, CRP #### [facility] [address] [place] [address] Dr. Orlando Saldivar EGFR-AF ARGENTINE >60 Normal >=60 [facility] Comment on above: Performed By: #### C MP, CRP #### [facility] [address] [address] [address] Orlando Saldivar EGFR-NON AF ARGENTINE >60 Normal >=60 [facility] Comment on above: Performed By: #### C MP, CRP #### [facility] [address] [place] [address] Dr. Orlando Saldivar Globulin (S) [Mass/Vol] 3.1 g/dL Normal [facility] Comment on above: Performed By: #### C MP, CRP #### [facility] [address] [place] [address] Dr. Orlando Saldivar Glucose [Mass/Vol] 90 mg/dL Normal 74-106 [facility] Comment on above: Performed By: #### C MP, CRP #### [facility] [address] [place] [address] Dr. Orlando Saldivar Potassium [Moles/Vol] 3.8 mmol/L Normal 3.4-5.0 [facility] Comment on above: Performed By: #### C MP, CRP #### [facility] [address] [place] [address] Dr. Orlando Saldivar Protein [Mass/Vol] 6.9 g/dL Normal 6.1-8.2 [facility] Comment on above: Performed By: #### C MP, CRP #### [facility] [address] [place] [address] Dr. Orlando Saldivar Sodium [Moles/Vol] 140 mmol/L Normal 137-145 [facility] Comment on above: Performed By: #### C MP, CRP #### [facility] [address] [place] [address] Dr. Orlando Saldivar Urea nitrogen [Mass/Vol] 13.0 mg/dL Normal 6.4-19.3 [facility] Comment on above: Performed By: #### C MP, CRP #### [facility] [address] [place] [address] Dr. Orlando Saldivar Urea nitrogen/Creatinine [Mass ratio] 16.2 mg/mg Normal [facility] Comment on above: Performed By: #### C MP, CRP #### [facility] [address] [place] [address] Dr. Orlando Saldivar [facility]ATE 11 mm/hr Normal <=20 [facility] Comment on above: Performed By: #### S EDR #### [facility] [address] [place] [address] Dr. Orlando Saldivar Complete Blood Count with Au to Diffon 06-13-2021 Basophils (Bld) [#/Vol] 0.05 10*3/uL Normal 0.00-0.20 [facility] Comment on above: Performed By: #### C BCAD #### [facility] [address] [place], [place] [id number] Basophils/100 WBC (Bld) 0.4 % Normal [facility] Comment on above: Performed By: #### C BCAD #### [facility] [address] [place], [place] [id number] Eosinophils (Bld) [#/Vol] 0.43 10*3/uL Normal 0.02-0.50 [facility] Comment on above: Performed By: #### C BCAD #### [facility] [address] [place], [place] [id number] Eosinophils/100 WBC (Bld) 3.0 % Normal [facility] Comment on above: Performed By: #### C BCAD #### [facility] [address] [place], [place] [id number] Erythrocyte distribution width (RBC) [Ratio] 12.4 % Normal 11.0-15.0 [facility] Comment on above: Performed By: #### C BCAD #### [facility] [address] [place], [place] [id number] Hematocrit (Bld) [Volume fraction] 38.3 % Normal 35.0-47.0 [facility] Comment on above: Performed By: #### C BCAD #### [facility] [address] [place], [place] [id number] Hemoglobin (Bld) [Mass/Vol] 12.7 g/dL Normal 11.6-15.5 [facility] Comment on above: Performed By: #### C BCAD #### [facility] [address] [place], [place] [id number] Lymphocytes (Bld) [#/Vol] 1.8 10*3/uL Normal 0.9-3.9 [facility] Comment on above: Performed By: #### C BCAD #### [facility] [address] [place], [place] [id number] Lymphocytes/100 WBC (Bld) 12.8 % Normal [facility] Comment on above: Performed By: #### C BCAD #### [facility] [address] [place], [place] [id number] MCH (RBC) [Entitic mass] 30.0 pg Normal 27.0-33.0 [facility] Comment on above: Performed By: #### C BCAD #### [facility] [address] [place], [place] [id number] MCHC (RBC) [Mass/Vol] 33.2 g/dL Normal 32.0-36.0 [facility] Comment on above: Performed By: #### C BCAD #### [facility] [address] [place], [place] [id number] MCV (RBC) [Entitic vol] 90 fL Normal 80-100 [facility] Comment on above: Performed By: #### C BCAD #### [facility] [address] [place], [place] [id number] Monocytes (Bld) [#/Vol] 1.0 10*3/uL High 0.2-0.9 [facility] Comment on above: Performed By: #### C BCAD #### [facility] [address] [place], [place] [id number] Monocytes/100 WBC (Bld) 7.4 % Normal [facility] Comment on above: Performed By: #### C BCAD #### [facility] [address] [place], [place] [id number] Neutrophils (Bld) [#/Vol] 10.7 10*3/uL High 1.5-7.8 [facility] Comment on above: Performed By: #### C BCAD #### [facility] [address] [place], [place] [id number] Neutrophils/100 WBC (Bld) 75.9 % Normal [facility] Comment on above: Performed By: #### C BCAD #### [facility] [address] [place], [place] [id number] Platelet mean volume (Bld) [Entitic vol] 10.00 fL Normal 7.50-12.50 [facility] Comment on above: Performed By: #### C BCAD #### [facility] [address] [place], [place] [id number] Platelets (Bld) [#/Vol] 293 10*3/uL Normal 140-400 [facility] Comment on above: Performed By: #### C BCAD #### [facility] [address] [place], [place] [id number] RBC (Bld) [#/Vol] 4.24 10*6/uL Normal 3.90-5.20 [facility] Comment on above: Performed By: #### C BCAD #### [facility] [address] [place], [place] [id number] RDW-SD 40.5 fL Normal 37.0-50.0 [facility] Comment on above: Performed By: #### C BCAD #### [facility] [address] [place], [place] [id number] WBC (Bld) [#/Vol] 14.1 10*3/uL High 3.8-11.0 [facility] Comment on above: Performed By: #### C BCAD #### [facility] [address] [place], [place] [id number] ZINC SERUM OR PLASMAon 05-03 Zinc, Plasma or Serum 74 ug/dL Normal 44-115 [facility] Comment on above: Result Comment: Dete ction Limit = 5 Performed By: #### Z inc #### [facility] [address] [place] [address] Dr. Orlando Saldivar TRANSFERRINon 05-01-2021 Transferrin [Mass/Vol] 194 mg/dL Normal 192-364 [facility] Comment on above: Performed By: #### T RANSFR #### [facility] [address] [place] [address] Dr. Orlando Saldivar CBC AUTO DIFFon 04-30-2021 BASO # 0.1 103/ul Normal 0.0-0.1 [facility] Comment on above: Performed By: #### C BC #### [facility] [address] [place] [address] Dr. Orlando Saldivar Basophils/100 WBC (Bld) 0.4 % Normal 0.2-2.0 [facility] Comment on above: Performed By: #### C BC #### [facility] [address] [place] [address] Dr. Orlando Saldivar EO # 0.2 103/ul Normal 0.0-0.7 [facility] Comment on above: Performed By: #### C BC #### [facility] [address] [place] [address] Dr. Orlando Saldivar Eosinophils/100 WBC (Bld) 1.6 % Normal 0.9-7.0 [facility] Comment on above: Performed By: #### C BC #### [facility] [address] [place] [address] Dr. Orlando Saldivar Erythrocyte distribution width (RBC) [Ratio] 13.1 % Normal 11.0-15.0 [facility] Comment on above: Performed By: #### C BC #### [facility] [address] [place] [address] Dr. Orlando Saldivar Hematocrit (Bld) [Volume fraction] 40.1 % Normal 36.0-48.0 [facility] Comment on above: Performed By: #### C BC #### [facility] [address] [place] [address] Dr. Orlando Saldivar Hemoglobin (Bld) [Mass/Vol] 13.3 g/dL Normal 12.0-16.0 [facility] Comment on above: Performed By: #### C BC #### [facility] [address] [place] [address] Dr. Orlando Saldivar IG # 0.06 10e3/ul Critically high 0.00-0.03 [facility] Comment on above: Performed By: #### C BC #### [facility] [address] [place] [address] Dr. Orlando aSldivar IG % 0.5 % Normal 0.0-0.5 [facility] Comment on above: Performed By: #### C BC #### [facility] [address] [place] [address] Dr. Orlando Saldivar LYMPH # 1.8 103/ul Normal 1.2-3.8 [facility] Comment on above: Performed By: #### C BC #### [facility] [address] [place] [address] Dr. Orlando Saldivar Lymphocytes/100 WBC (Bld) 15.0 % Critically low 20.5-60.0 [facility] Comment on above: Performed By: #### C BC #### [facility] [address] [place] [address] Dr. Orlando Saldivar MANUAL DIFF REQ NO Normal [facility] Comment on above: Performed By: #### C BC #### [facility] [address] [place] [address] Dr. Orlando Saldivar MCH (RBC) [Entitic mass] 29.8 pg Normal 26.7-34.0 [facility] Comment on above: Performed By: #### C BC #### [facility] [address] [place] [address] Dr. Orlando Saldivar MCHC (RBC) [Mass/Vol] 33.2 g/dL Normal 29.9-35.2 [facility] Comment on above: Performed By: #### C BC #### [facility] [address] [place] [address] Dr. Orlando Saldivar MCV (RBC) [Entitic vol] 89.7 fL Normal 81.0-99.0 [facility] Comment on above: Performed By: #### C BC #### [facility] [address] [address] [address] Orlando Saldivar MONO # 0.7 103/ul Normal 0.3-0.8 [facility] Comment on above: Performed By: #### C BC #### [facility] [address] [address] [address] Orlando Saldivar Monocytes/100 WBC (Bld) 6.0 % Normal 1.7-12.0 [facility] Comment on above: Performed By: #### C BC #### [facility] [address] [place] [address] Dr. Orlando Saldivar NEUT # 9.4 103/ul Critically high 1.4-6.5 [facility] Comment on above: Performed By: #### C BC #### [facility] [address] [place] [address] Dr. Orlando Saldivar Neutrophils/100 WBC (Bld) 76.5 % Critically high 43.0-75.0 [facility] Comment on above: Performed By: #### C BC #### [facility] [address] [place] [address] Dr. Orlando Saldivar Platelet mean volume (Bld) [Entitic vol] 9.7 fL Normal 9.5-13.5 [facility] Comment on above: Performed By: #### C BC #### [facility] [address] [place] [address] Dr. Orlando Saldivar PLT 211 103/ul Normal 150-450 [facility] Comment on above: Performed By: #### C BC #### [facility] [address] [place] [address] Dr. Orlando Saldivar RBC 4.47 106/ul Normal 4.20-5.40 [facility] Comment on above: Performed By: #### C BC #### [facility] [address] [place] [address] Dr. Orlando Saldivar WBC 12.3 103/ul Critically high 4.0-11.0 [facility] Comment on above: Performed By: #### C BC #### [facility] [address] [place] [address] Dr. Orlando Saldivar CRPon 04-30-2021 CRP [Mass/Vol] mg/L Normal <=1.0 [facility] Comment on above: Performed By: #### C MP, CRP #### [facility] [address] [place] [address] Dr. Orlando Saldivar FERRITINon 04-30-2021 Ferritin [Mass/Vol] 118.0 ng/mL Normal 6.2-137.0 [facility] Comment on above: Performed By: #### T RANSFR #### [facility] [address] [place] [address] Dr. Orlando Saldivar IRON AND TIBCon 04-30-2021 % SATURATION 26.3 % Normal [facility] Comment on above: Performed By: #### F ERR, FETIBC, VITB12 #### [facility] [address] [place] [address] Dr. Orlando Saldivar Iron [Mass/Vol] 59.0 ug/dL Normal 37.0-170.0 [facility] Comment on above: Performed By: #### F ERR, FETIBC, VITB12 #### [facility] [address] [place] [address] Dr. Orlando Saldivar TIBC DIRECT 224.0 ug/dL Critically low 261.0-497.0 [facility] Comment on above: Performed By: #### F ERR, FETIBC, VITB12 #### [facility] [address] [place] [address] Dr. Orlando Saldivar PROF 14(COMP METB)on 022 Albumin [Mass/Vol] 3.7 g/dL Normal 3.5-5.0 [facility] Comment on above: Performed By: #### C MP, CRP #### [facility] [address] [place] [address] Dr. Orlando Saldivar Albumin/Globulin [Mass ratio] 1.3 {ratio} Normal [facility] Comment on above: Performed By: #### C MP, CRP #### [facility] [address] [address] [address] Orlando Saldivar ALP [Catalytic activity/Vol] 66 U/L Normal 38-126 [facility] Comment on above: Performed By: #### C MP, CRP #### [facility] [address] [address] [address] Orlando Saldivar ALT [Catalytic activity/Vol] 9 U/L Normal 9-52 [facility] Comment on above: Performed By: #### C MP, CRP #### [facility] [address] [address] [address] Orlando Saldivar Anion gap [Moles/Vol] 12.4 mmol/L Normal [facility] Comment on above: Performed By: #### C MP, CRP #### [facility] [address] [address] [address] Orlando Saldivar AST [Catalytic activity/Vol] 10 U/L Critically low 14-36 [facility] Comment on above: Performed By: #### C MP, CRP #### [facility] [address] [address] [address] Orlando Saldivar Bilirubin [Mass/Vol] 0.4 mg/dL Normal 0.2-1.3 [facility] Comment on above: Performed By: #### C MP, CRP #### [facility] [address] [address] [address] Orlando Saldivar Calcium [Mass/Vol] 9.0 mg/dL Normal 8.4-10.2 [facility] Comment on above: Performed By: #### C MP, CRP #### [facility] [address] [address] [address] Orlando Saldivar Chloride [Moles/Vol] 103 mmol/L Normal 98-107 [facility] Comment on above: Performed By: #### C MP, CRP #### [facility] [address] [address] [address] Orlando Saldivar CO2 [Moles/Vol] 26.0 mmol/L Normal 22.0-30.0 [facility] Comment on above: Performed By: #### C MP, CRP #### [facility] [address] [address] [address] Orlando Saldivar Creatinine [Mass/Vol] 0.92 mg/dL Normal 0.52-1.04 [facility] Comment on above: Performed By: #### C MP, CRP #### [facility] [address] [address] [address] Orlando Saldivar EGFR-AF ARGENTINE >60 Normal >=60 [facility] Comment on above: Performed By: #### C MP, CRP #### [facility] [address] [address] [address] Orlando Saldivar EGFR-NON AF ARGENTINE >60 Normal >=60 [facility] Comment on above: Performed By: #### C MP, CRP #### [facility] [address] [place] [address] Dr. Orlando Saldivar Globulin (S) [Mass/Vol] 2.9 g/dL Normal [facility] Comment on above: Performed By: #### C MP, CRP #### [facility] [address] [place] [address] Dr. Orlando Saldivar Glucose [Mass/Vol] 119 mg/dL Critically high 74-106 [facility] Comment on above: Performed By: #### C MP, CRP #### [facility] [address] [place] [address] Dr. Orlando Saldivar Potassium [Moles/Vol] 3.4 mmol/L Normal 3.4-5.0 [facility] Comment on above: Performed By: #### C MP, CRP #### [facility] [address] [place] [address] Dr. Orlando Saldivar Protein [Mass/Vol] 6.6 g/dL Normal 6.1-8.2 [facility] Comment on above: Performed By: #### C MP, CRP #### [facility] [address] [place] [address] Dr. Orlando Saldivar Sodium [Moles/Vol] 138 mmol/L Normal 137-145 [facility] Comment on above: Performed By: #### C MP, CRP #### [facility] [address] [place], [place] [id number] Dr. Orlando Saldivar Urea nitrogen [Mass/Vol] 8.0 mg/dL Normal 6.4-19.3 [facility] Comment on above: Performed By: #### C MP, CRP #### [facility] [address] [address] [address] Orlando Saldivar Urea nitrogen/Creatinine [Mass ratio] 8.7 mg/mg Normal [facility] Comment on above: Performed By: #### C MP, CRP #### [facility] [address] [address] [address] Orlando Saldivar SED RATE WESTERGRENon 2021 SED RATE 7 mm/hr Normal <=20 [facility] Comment on above: Performed By: #### S EDR #### [facility] [address] [place] [address] Dr. Orlando Saldivar VITAMIN B12on 04-30-2021 Cobalamin (Vitamin B12) [Mass/Vol] 812.0 pg/mL Normal 239.0-931.0 [facility] Comment on above: Performed By: #### T RANSFR #### [facility] [address] [place] [address] Dr. Orlando Saldivar Lab Reportson 01-17-2020 Lab Reports [id number] .[id number]:127 Normal [facility] Consultation Noteon 01-13-20 Consultation Note [id number]. 00CD:127 Normal [facility] Auth for Release of Medical Recordson 12-09-2019 Auth for Release of Medical Records [id number]. 00CD:127 Normal [facility] Consultation Noteon 11-24-19 Consultation Note [id number] .[id number]:127 Normal [facility] Consultation Noteon 11-22-19 Consultation Note [id number] .[id number]:127 Normal [facility] Vital Signs Date Time Vital Sign Value Performing Clinician Facility 08-06-2023 11:43-0400 Body height 160 cm Velia oY MD Work Phone: [facility] 08-06-2023 11:43-0400 Body mass index (BMI) [Ratio] 37.91 kg/m2 Velia Yo MD Work Phone: [facility] 08-06-2023 11:43-0400 Body weight 97.07 kg Velia Yo MD Work Phone: [facility] 08-06-2023 11:43-0400 Diastolic blood pressure 76 mm[Hg] Velia Yo MD Work Phone: [facility] 08-06-2023 11:43-0400 Heart rate 101 /min Velia Yo MD Work Phone: [facility] 08-06-2023 11:43-0400 SaO2% (BldA) [Mass fraction] 98 % Velia Yo MD Work Phone: [facility] 08-06-2023 11:43-0400 Systolic blood pressure 102 mm[Hg] Velia Yo MD Work Phone: [facility] 08-06-2023 09:34-0400 Body height 160 cm Teresa Gerber ADVERTISING DISPLAY ROTATOR-MARINE RADIO INSTALLER AND SERVICER Work Phone: [facility] 08-06-2023 09:34-0400 Body mass index (BMI) [Ratio] 37.98 kg/m2 Teresa Gerber ADVERTISING DISPLAY ROTATOR-MARINE RADIO INSTALLER AND SERVICER Work Phone: [facility] 08-06-2023 09:34-0400 Body weight 97.25 kg Teresa Gerber ADVERTISING DISPLAY ROTATOR-MARINE RADIO INSTALLER AND SERVICER Work Phone: [facility] 08-06-2023 09:34-0400 Diastolic blood pressure 76 mm[Hg] Teresa Gerber ADVERTISING DISPLAY ROTATOR-MARINE RADIO INSTALLER AND SERVICER Work Phone: [facility] 08-06-2023 09:34-0400 Heart rate 75 /min Teresa Gerber ADVERTISING DISPLAY ROTATOR-MARINE RADIO INSTALLER AND SERVICER Work Phone: [facility] 08-06-2023 09:34-0400 SaO2% (BldA) [Mass fraction] 98 % Teresa Gerber ADVERTISING DISPLAY ROTATOR-MARINE RADIO INSTALLER AND SERVICER Work Phone: [facility] 08-06-2023 09:34-0400 Systolic blood pressure 102 mm[Hg] Teresa Gerber ADVERTISING DISPLAY ROTATOR-MARINE RADIO INSTALLER AND SERVICER Work Phone: [facility] 05-26-2023 17:17-0500 Body height 160 cm Rubia Finneyninajudah SNAPPER ON Work Phone: [facility] 05-26-2023 17:17-0500 Body mass index (BMI) [Ratio] 34.97 kg/m2 Rubia Hernandez SNAPPER ON Work Phone: [facility] 05-26-2023 17:17-0500 Body weight 89.54 kg Rubia Hernandez SNAPPER ON Work Phone: [facility] 05-26-2023 17:17-0500 Diastolic blood pressure 60 mm[Hg] Rubia Hernandez SNAPPER ON Work Phone: [facility] 05-26-2023 17:17-0500 Heart rate 104 /min Rubia Hernandez SNAPPER ON Work Phone: [facility] 05-26-2023 17:17-0500 SaO2% (BldA) [Mass fraction] 99 % Rubia Hernandez SNAPPER ON Work Phone: [facility] 05-26-2023 17:17-0500 Systolic blood pressure 110 mm[Hg] Rubia Hernandez SNAPPER ON Work Phone: [facility] 04-24-2023 13:59-0500 Body height 160 cm Ruchi Carmona MD Work Phone: [facility] 04-24-2023 13:59-0500 Diastolic blood pressure 68 mm[Hg] Ruchi Carmona MD Work Phone: [facility] 04-24-2023 13:59-0500 Heart rate 81 /min Ruchi Carmona MD Work Phone: [facility] 04-24-2023 13:59-0500 Systolic blood pressure 106 mm[Hg] Ruchi Carmona MD Work Phone: [facility] 02-25-2023 12:32-0500 Body height 160 cm Giovani Edmonds MD Work Phone: [facility] 02-25-2023 12:32-0500 Body mass index (BMI) [Ratio] 32.06 kg/m2 Giovani Edmonds MD Work Phone: [facility] 02-25-2023 12:32-0500 Body weight 82.1 kg Giovani Edmonds MD Work Phone: [facility] 02-25-2023 12:32-0500 Diastolic blood pressure 70 mm[Hg] Giovani Edmonds MD Work Phone: [facility] 02-25-2023 12:32-0500 Heart rate 74 /min Giovani Edmonds MD Work Phone: [facility] 02-25-2023 12:32-0500 SaO2% (BldA) [Mass fraction] 97 % Giovani Edmonds MD Work Phone: [facility] Comment on above: 02-25-2023 12:32-0500 Systolic blood pressure 118 mm[Hg] Giovani Edmonds MD Work Phone: [facility] 01-26-2023 10:50-0400 Body height 161.1 cm Enmanuel Osuna MD Work Phone: [facility] 01-26-2023 10:50-0400 Body mass index (BMI) [Ratio] 31.25 kg/m2 Enmanuel Osuna MD Work Phone: [facility] 01-26-2023 10:50-0400 Body temperature 98.1 [degF] Enmanuel Osuna MD Work Phone: [facility] 01-26-2023 10:50-0400 Body weight 81.1 kg Enmanuel Osuna MD Work Phone: [facility] 01-26-2023 10:50-0400 Diastolic blood pressure 65 mm[Hg] Enmanuel Osuna MD Work Phone: [facility] 01-26-2023 10:50-0400 Heart rate 73 /min Enmanuel Osuna MD Work Phone: [facility] 01-26-2023 10:50-0400 Respiratory rate 20 /min Enmanuel Osuna MD Work Phone: [facility] 01-26-2023 10:50-0400 Systolic blood pressure 100 mm[Hg] Enmanuel Osuna MD Work Phone: [facility] 01-26-2023 09:51-0400 Body height 161.1 cm Zhou Lee MD Work Phone: [facility] 01-26-2023 09:51-0400 Body mass index (BMI) [Ratio] 31.25 kg/m2 Zhou Lee MD Work Phone: [facility] 01-26-2023 09:51-0400 Body weight 81.1 kg Zhou Lee MD Work Phone: [facility] 01-26-2023 09:51-0400 Respiratory rate 20 /min Zhou Lee MD Work Phone: [facility] 01-26-2023 08:15-0400 Body height 161.1 cm Ioana Otero MD Work Phone: [facility] 01-26-2023 08:15-0400 Body mass index (BMI) [Ratio] 31.25 kg/m2 Ioana Otero MD Work Phone: [facility] 01-26-2023 08:15-0400 Body temperature 98.2 [degF] Ioana Otero MD Work Phone: [facility] 01-26-2023 08:15-0400 Body weight 81.1 kg Ioana Otero MD Work Phone: [facility] 01-26-2023 08:15-0400 Diastolic blood pressure 77 mm[Hg] Ioana Otero MD Work Phone: [facility] 01-26-2023 08:15-0400 Heart rate 74 /min Ioana Otero MD Work Phone: [facility] 01-26-2023 08:15-0400 Systolic blood pressure 110 mm[Hg] Ioana Otero MD Work Phone: [facility] 12-26-2022 12:00-0400 Body weight 81.6 kg Connie Mac RN [facility] 05-05-2022 11:04-0500 Body height 162 cm Zhou Lee MD Work Phone: [facility] Comment on above: prior reading 05-05-2022 11:04-0500 Body mass index (BMI) [Ratio] 31.09 kg/m2 Zhou Lee MD Work Phone: [facility] 05-05-2022 11:04-0500 Body weight 81.6 kg Zhou Lee MD Work Phone: [facility] 05-05-2022 11:04-0500 Heart rate 84 /min Zhou Lee MD Work Phone: [facility] 08-13-2021 18:15-0400 Diastolic blood pressure 76 mm[Hg] Jessie Lenz MD Work Phone: [employer] 08-13-2021 18:15-0400 Heart rate 86 /min Jessie Lenz MD Work Phone: [employer] 08-13-2021 18:15-0400 Systolic blood pressure 116 mm[Hg] Jessie Lenz MD Work Phone: [employer] 08-13-2021 16:15-0400 Body temperature 99.1 [degF] Jessie Lenz MD Work Phone: [employer] 08-13-2021 11:30-0400 Respiratory rate 16 /min Jessie Lenz MD Work Phone: [employer] 08-13-2021 11:30-0400 SaO2% (BldA) [Mass fraction] 99 % Jessie Lenz MD Work Phone: [employer] 08-13-2021 08:15-0400 Body height 164 cm Jessie Lenz MD Work Phone: [employer] 08-13-2021 08:15-0400 Body mass index (BMI) [Percentile] Per age and sex 95.01 % Jessie Lenz MD Work Phone: [employer] 08-13-2021 08:15-0400 Body mass index (BMI) [Ratio] 31.6 kg/m2 Jessie Lenz MD Work Phone: [employer] 08-13-2021 08:15-0400 Body weight 85 kg Jessie Lenz MD Work Phone: [employer] Encounters Encounter Date Encounter Type Care Provider Facility Start: 09-03-2023 End: 09-03-2023 ambulatory Alfredo Duong Facility:[facility] Start: 09-03-2023 End: 09-03-2023 ambulatory SHANTELL Duong Work Phone: [facility] Work Phone: Start: 09-03-2023 End: 09-03-2023 Departed Referred SHANTELL Duong Work Phone: [facility] Start: 08-31-2023 End: 09-01-2023 ambulatory ALFREDO L FLORO Not Available Start: 08-24-2023 End: 08-24-2023 ambulatory ALFREDO L FLORO Not Available Start: 08-18-2023 End: 08-19-2023 ambulatory ALFREDO L FLORO Not Available Start: 08-12-2023 End: 08-12-2023 ambulatory DALLAS REYNABLEY Not Available Start: 08-06-2023 End: 08-06-2023 Office consultation new/estab patient 80 min Velia Yo MD Work Phone: [facility] Comment on above: Orbital myositis, un specified laterality (Primary Dx); Crohn's disease of small and large intestines with complication; Immunosuppressed status; Chronic pansinusitis; Pulmonary nodules; Psoriasis; Less than 8 weeks gestation of ; Left leg swelling; Psoriasis of scalp Start: 08-06-2023 ambulatory IOANA OTERO Facility: [facility] Start: 08-06-2023 End: 08-06-2023 Office outpatient visit 15 minutes Teresa Gerber ADVERTISING DISPLAY ROTATOR-MARINE RADIO INSTALLER AND SERVICER Work Phone: [facility] [place] Comment on above: Crohn's disease in r emission (Primary Dx) Start: 08-05-2023 End: 08-05-2023 ambulatory BLAZE RENTERIA Not Available Start: 08-03-2023 End: 08-04-2023 ambulatory ALFREDO L FLORO Not Available Start: 07-31-2023 End: 08-01-2023 ambulatory DALLAS MCGOWANY Not Available Start: 07-29-2023 End: 07-29-2023 ambulatory BLAZE RENTERIA Not Available Start: 07-22-2023 End: 07-23-2023 ambulatory ALFREDO L FLORO Not Available Start: 07-03-2023 End: 07-04-2023 ambulatory ALFREDO FLORO [facility] Start: 07-02-2023 End: 07-03-2023 ambulatory XIOMARA ZURITA Not Available Start: 06-24-2023 End: 06-24-2023 ambulatory ALFREDO L FLORO Not Available Start: 06-16-2023 End: 06-17-2023 ambulatory ALFREDO L FLORO Not Available Start: 06-15-2023 End: 06-15-2023 ambulatory KATIE A HACKENBURG Not Available Start: 06-09-2023 End: 06-09-2023 ambulatory KATIE A HACKENBURG Not Available Start: 06-01-2023 End: 06-02-2023 Orders Only Marjorie Bautista RN [facility] Comment on above: Maternal Crohn's dis ease affecting in second trimester ([facility]) (Primary Dx); History of chronic ulcerative colitis Start: 05-29-2023 End: 05-30-2023 [facility] Start: 05-26-2023 End: 05-26-2023 Office outpatient visit 25 minutes Rubia Hernandez SNAPPER ON Work Phone: [facility] Comment on above: Viral URI (Primary D x); 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); Immunodeficiency, unspecified (D84.9); 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); Crohns disease of both small and large intestine with unspecified complications (K50.819); Bilateral impacted cerumen Start: 05-26-2023 End: 05-27-2023 ambulatory RUBIA HERNANDEZ Not Available Start: 05-26-2023 Bamboo flowsheet Rubia Hernandez SNAPPER ON Work Phone: [facility] Start: 05-26-2023 Bamboo flowsheet Rubia Hernandez SNAPPER ON Work Phone: [facility] Start: 04-29-2023 ambulatory TERESA GERBER Facility:[facility] Start: 04-27-2023 End: 04-28-2023 ambulatory ALFREDO L FLORO Not Available Start: 04-24-2023 End: 04-25-2023 ambulatory [facility] Start: 04-24-2023 End: 04-24-2023 Office outpatient new 45 minutes Hind David Carmona MD Work Phone: [facility]- [facility] Comment on above: Maternal Crohn's dis ease affecting in second trimester ([facility]) (Primary Dx); History of chronic ulcerative colitis; 19 weeks gestation of Start: 04-16-2023 Chart abstracting Scanning Pro vider External [facility] at [facility] Start: 04-03-2023 ambulatory [facility] OFFICE PRIMARY CARE PROVIDER Facility:[facility] Start: 04-03-2023 End: 04-03-2023 Clinical Support Encounter [facility] Ibd Nurse [facility] [place] Comment on above: Crohn's disease of b oth small and large intestine with complication (Primary Dx) Start: 04-02-2023 Chart abstracting Scanning Pro vider External [facility] at [facility] Start: 03-30-2023 End: 03-31-2023 ambulatory ALFREDO L FLORO Not Available Start: 03-19-2023 End: 03-19-2023 ambulatory KATIE ACEVES Not Available Start: 03-18-2023 End: 03-18-2023 ambulatory BLAZE RENTERIA Not Available Start: 03-16-2023 End: 03-16-2023 ambulatory BO KIKE Not Available Start: 03-11-2023 End: 03-11-2023 ambulatory ENEDINA BRINK Not Available Start: 03-09-2023 End: 03-09-2023 ambulatory ENEDINA BRINK Not Available Start: 03-04-2023 End: 03-05-2023 ambulatory ALFREDO L FLORO Not Available Start: 03-04-2023 End: 03-04-2023 ambulatory ENEDINA BRINK Not Available Start: 03-03-2023 Telephone encounter Alexx Slater MD Work Phone: [facility] [place] Comment on above: Case Discussion (Tra nsitioned to adult GI at [facility]) Start: 03-02-2023 End: 03-02-2023 ambulatory BO KIKE Not Available Start: 02-27-2023 End: 02-27-2023 ambulatory ENEDINA BRINK Not Available Start: 02-25-2023 ambulatory ALEXX SLATER Facilit y:[facility] Start: 02-25-2023 End: 02-25-2023 Office consultation new/estab patient 80 min Giovani Edmonds MD Work Phone: [facility] [place] Comment on above: Crohn's disease of b oth small and large intestine with complication (Primary Dx); Orbital myositis, unspecified laterality; 11 weeks gestation of Start: 02-23-2023 End: 02-23-2023 ambulatory CHEY ARAGON Not Available Start: 02-05-2023 ambulatory [facility] OFFICE PRIMARY CARE PROVIDER Facility:[facility] Start: 01-26-2023 End: 01-27-2023 ambulatory CHEY ARAGON [facility] Start: 01-26-2023 End: 01-26-2023 Subsequent hospital visit by physician Enmanuel Osuna MD Work Phone: [facility] Comment on above: Iron deficiency Start: 01-26-2023 End: 01-26-2023 ambulatory Ioana Otero [facility] Start: 01-26-2023 End: 01-26-2023 Office outpatient visit 15 minutes Zhou Lee MD Work Phone: [facility] [place] Comment on above: Sinus Problem (F/u r ecurrent sinusitis) Start: 01-26-2023 End: 01-26-2023 Office outpatient visit 40 minutes Ioana Otero MD Work Phone: [facility] [place] Comment on above: FOLLOW-UP Start: 01-21-2023 Telephone encounter Ioana liz MD Work Phone: [facility] [place] Comment on above: Results Start: 01-20-2023 ambulatory MARTHA HATFIELD [facility] Start: 01-16-2023 ambulatory [facility] OFFICE PRIMARY CARE PROVIDER Facility:[facility] Start: 01-09-2023 Telephone encounter Alison Moore RN [facility] [place] Comment on above: Update Start: 01-05-2023 ambulatory NISREEN WILSON [facility] Start: 12-23-2022 Refill Alexx todd MD Work Phone: [facility] [place] Comment on above: Refill Request Start: 12-18-2022 ambulatory [facility] Start: 12-18-2022 Coordination of care plan Angella Head [facility] Comment on above: Primary Insurance: P rior Authorization Coordination for Gastroenterology Prior Authorization Start: 12-17-2022 Telephone encounter Connie Mac RN [facility] [place] Comment on above: Coordination Of Care (Rituximab) Start: 11-21-2022 Telephone encounter Alyssa Pierre RN [facility] Comment on above: Change Appointment Start: 09-24-2022 Telephone encounter Zhou peres MD Work Phone: ENT [facility] [place] Comment on above: Schedule Surgery Start: 09-04-2022 Documentation procedure Manjeet Lee MD Work Phone: ENT [facility] [place] Comment on above: Per [facility] R[facility] Letter # 9, [facility] requested clinicals be sent. Clinicals sent Start: 07-16-2022 Documentation procedure Ginna Slater MD Work Phone: [facility] [place] Comment on above: Faxed [facility] reapplica tion to [phone]. Scanned into the chart. Start: 05-05-2022 End: 05-06-2022 ambulatory CHEY ARAGON [facility] Start: 05-05-2022 ambulatory CHEY ARAGON [facility] Start: 05-05-2022 End: 05-05-2022 Postop follow up visit related to original px Zhou Lee MD Work Phone: ENT [facility] [place] Comment on above: Orbital myositis, un specified laterality (Primary Dx); Chronic sinusitis, unspecified location Start: 04-08-2022 Telephone encounter Brielle Teran RN [facility] [place] [facility] Comment on above: Surgical Followup Start: 03-21-2022 End: 03-21-2022 ambulatory CHEY ARAGON [facility] Start: 03-20-2022 End: 03-20-2022 ambulatory CHEY G MAHESH [facility] Start: 02-11-2022 ambulatory CHEY Verduzco MAHESH [facility] Start: 02-06-2022 Telephone encounter Mitch Banuelos MD Work Phone: Surgery Clinic [facility] 6D Comment on above: Pre-certification Start: 02-04-2022 End: 02-04-2022 ambulatory CHEY Verduzco MAHESH [facility] Start: 02-04-2022 End: 02-05-2022 ambulatory MAGDALENA ROJAS [facility] Start: 11-19-2021 End: 11-19-[address] DOCTOR LIM Facility:[facility] Start: 08-13-2021 End: 08-13-2021 ambulatory JESSIE LENZ [facility] Start: 08-13-2021 End: 08-13-2021 Subsequent hospital visit by physician Jessie Lenz MD Work Phone: [facility]A/B [facility] Start: 07-09-2021 End: 07-10-2021 ambulatory SHAKIRA Ventura LAMBERTO [facility] Start: 07-09-2021 End: 07-09-2021 Subsequent hospital visit by physician Otilia Sinclair Work Phone: [facility] Start: 06-27-2021 End: 06-28-[address] DOCTOR LIM Facility:[facility] Start: 04-30-2021 End: 05-01-[address] DOCTOR LIM Facility:[facility] Procedures Date Procedure Procedure Detail Performing Clinician Start: 08-06-2023 Urnls dip stick/tabl et rgnt auto w/o microscopy Velia Yo MD Work Phone: Start: 05-26-2023 Removal impacted cer umen irrigation/lvg unilat Rubia Hernandez SNAPPER ON Work Phone: Start: 03-04-2023 CHLAMYDIA/GC BY PCR [...] watkins Start: 05-05-2022 Blood count hemoglobin MAGDALENA GRAVESLeisaMODESTO Start: 03-20-2022 Blood count hemoglobin MAGDALENA GRAVESNITZA Start: 07-09-2021 Blood count complete auto&auto difrntl wbc Shakira Orantes MD Work Phone: Plan of Treatment Date Care Activity Detail Author Start: 06-01-2024 End: 06-01-2024 US MFM with or without consult US MFM with or without consult Imaging Routine Maternal Crohn's disease affecting in second trimester ([facility]) History of chronic ulcerative colitis Expected: 06/01/2024 (Approximate), Expires: 06/01/2024 [employer] Work Phone: Comment on above: Expected: 06/01/2024 (Approximate), Expi res: 06/01/2024 Start: 04-24-2024 [facility]ening [facility] Start: 01-27-2024 IBD Iron Studies IBD Iron Studies [facility] Start: 12-13-2023 Influenza vaccination INFLUENZA VACCINE (Season Ended) [facility] Start: 10-22-2023 End: 10-22-2023 Telemedicine consultation with patient 10/22/2023 9:30 AM EDT Telemedicine [facility] [address] [place] [address] Christin Lopez, ADVERTISING DISPLAY ROTATOR-MARINE RADIO INSTALLER AND SERVICER [address] [place] [address] [facility] Start: 10-21-2023 DTaP,Tdap and Td Vaccines (7 - Td or Tdap) DTaP,Tdap and Td Vaccines (7 - Td or Tdap) [facility] Start: 10-21-2023 DTaP/Tdap/Td vaccine (7 - Td or Tdap) DTaP/Tdap/Td vaccine (7 - Td or Tdap) [facility] Start: 10-21-2023 DTaP/Tdap/Td VACCINES (7 - Td or Tdap) DTaP/Tdap/Td VACCINES (7 - Td or Tdap) [facility] Start: 10-21-[address] [facility] Start: 08-06-2023 End: 08-05-2024 CALPROTECTIN, STOOL CALPROTECTIN, STOOL Fluids Routine Crohn's disease in remission Expected: 08/06/2023, Expires: 08/05/2024 [facility] Comment on above: Expected: 08/06/2023, Expires: Start: 08-06-2023 End: 08-05-2024 US.doppler Lower extremity vein - left VASC DUPLEX VENOUS EXTREMITY LOWER LEFT Imaging STAT Left leg swelling Expected: 08/06/2023, Expires: 08/05/2024 [facility] Comment on above: Expected: 08/06/2023, Expires: Start: 07-03-2023 End: 07-03-2023 Patient encounter procedure 07/03/2023 3:00 PM EDT Appointment [facility] [address] [place] [id number] [facility] Start: 06-01-2023 End: 06-01-2023 Patient encounter procedure 06/01/2023 6:30 PM EST Routine [facility] [address] [place] [address] Alfredo Duong, CATM [address] [place] [address] [facility] Start: 05-29-2023 End: 05-29-2023 Patient encounter procedure 05/29/2023 2:45 PM EST Appointment [facility] [address] [place] [address] [facility] Start: 05-26-2023 End: 05-26-2023 Patient encounter procedure 05/26/2023 7:30 PM EST Office Visit [facility] [address] [place] [id number] Rubia Hernandez NP [address] [place] [address] Arrived [facility] Comment on above: Arrived Start: 04-29-2023 End: 04-29-2023 Patient encounter procedure 04/29/2023 10:00 AM EST Office Visit Inflammatory Bowel Disease [address] [place] [address] Teresa Gerber, ADVERTISING DISPLAY ROTATOR-MARINE [employer] INST[employer]ER AND SERVICER [address] [place] [address] Inflammatory Bowel Disease [facility] Start: 04-24-2023 End: 04-24-2023 Patient encounter procedure [facility] Start: 04-03-2023 End: 04-03-2023 Clinical Support Encounter 04/03/2023 11:00 AM EST Clinical Support Encounter [facility] Bowel Disease [address] [place] [address] Inflammatory Bowel Disease [facility] Start: 03-20-2023 IBD Iron Studies IBD Iron Studies [facility] Start: 02-25-2023 End: 02-26-2024 CALPROTECTIN, STOOL CALPROTECTIN, STOOL Fluids Routine Crohn's disease of both small and large intestine with complication Expected: 02/25/2023, Expires: 02/26/2024 [facility] Comment on above: Expected: 02/25/2023, Expires: Start: 02-25-2023 End: 02-26-2024 HEP A AB, TOTAL (IGG+IGM) HEP A AB, TOTAL (IGG+IGM) Lab Routine Crohn's disease of both small and large intestine with complication Expected: 02/25/2023, Expires: 02/26/2024 [facility] Comment on above: Expected: 02/25/2023, Expires: 4 Start: 02-25-2023 End: 02-26-2024 M TUBERCULOSIS BY QUANTIFERON, BLD [facility] Comment on above: Expected: 02/25/2023, Expires: 4 Start: 02-25-2023 End: 02-26-2024 THIOPURINE METHYL-TRANSFERASE [facility] Comment on above: Expected: 02/25/2023, Expires: Start: 02-25-2023 End: 02-26-2024 ZINC, SERUM [facility] Comment on above: Expected: 02/25/2023, Expires: Start: 02-18-2023 ambulatory Ambulatory [facility] Start: 02-18-2023 End: 02-18-2023 Patient encounter procedure [facility] [place] Start: 01-26-2023 End: 01-27-2024 Ferritin [Mass/volume] in Serum or Plasma [facility] Comment on above: One Time for 1 Occurrences starting 01/11 until 01/26/2023 Expected: 01/26/2023 (Approximate), Expires: 01/27/2024 Start: 01-26-2023 End: 01-26-2023 Patient encounter procedure E[facility] [place] Start: 01-20-2023 End: 01-20-2023 Patient encounter procedure 01/20/2023 1:00 PM EDT Appointment [facility]ematology/Oncology Clinics [address] [place], [place] [address]Jenny [address] [place] [address] Martha Hatfield MD [address] [place] [address] [facility] Start: 01-14-2023 IBD TDM Annual Screening Ustekinumab IBD TDM Annual Screening Ustekinumab [facility] Start: 01-05-2023 End: 01-05-2023 Admission to same day surgery center Perioperative Services Comment on above: ETHMOID SINUS SURGERY bilateral Start: 01-05-2023 End: 01-05-2023 Nasal/sinus ndsc w/partial ethmoidectomy [facility] [place] Start: 01-05-2023 End: 01-05-2023 Nsl/sinus ndsc max antrost w/rmvl tiss max sinus [facility] [place] Start: 01-05-2023 End: 01-05-2023 Strtctc cptr asstd px cranial intradural [facility] [place] Start: 01-05-2023 Subsequent hospital visit by physician Perioperative Services Start: 01-05-2023 End: 01-05-2023 Patient encounter procedure 01/05/2023 10:[address] [id number] Discharge Disposition: Home [facility] Start: 12-24-2022 IBD on Biologics/Immunomodulato rs Quantiferon IBD on Biologics/Immunomodulato rs Quantiferon [facility] Start: 12-12-2022 COVID-19 Vaccine ( season) COVID-19 Vaccine ( season) [facility] Start: 12-12-2022 Influenza vaccination [facility] Start: 2022 Screening for malignant neoplasm of cervix [facility] Start: 11-02-2022 IBD 25-OH Vitamin D IBD 25-OH Vitamin D [facility] Start: 09-18-2022 IBD 25-OH Vitamin D IBD 25-OH Vitamin D [facility] Start: 09-03-2022 IBD Annual Visit IBD Annual Visit [facility] Start: 07-25-2022 End: 07-25-2022 Patient encounter procedure 07/25/2022 Appointment Rheumatology [facility]umatology Clinic [facility] Start: 07-25-2022 End: 07-25-2022 Patient encounter procedure 07/25/2022 Appointment Gastroenterology Alexx Slater MD [address] [place] [address] [facility] Start: 06-09-2022 IBD Calprotectin IBD Calprotectin [facility] Start: 05-24-2022 IBD Surveillence Colonscopy 8 years after diagnosis IBD Surveillence Colonscopy 8 years after diagnosis [facility] Start: 05-06-2022 IBD TDM Post Induction Ustekinumab IBD TDM Post Induction Ustekinumab [facility] Start: 05-05-2022 End: 05-05-2022 Patient encounter procedure 05/05/2022 Appointment Ent-Otolaryngology Zhou Lee MD Otolaryngology Section [address] [place] [address] [facility] [place] Start: 12-12-2021 Influenza vaccination INFLUENZA VACCINE (#1) [facility] Start: 04-18-2021 COVID-19 Vaccine (2 - Misael risk 3-dose series) COVID-19 Vaccine (2 - Misael risk 3-dose series) [facility] Start: 04-18-2021 COVID-19 Vaccine (2 - Misael risk series) COVID-19 Vaccine (2 - Misael risk series) [facility] Start: 12-12-2020 Influenza vaccination Flu vaccine (#1) [facility] Start: 2020 DTaP,Tdap and Td Vaccines (1 - Tdap) DTaP,Tdap and Td Vaccines (1 - Tdap) [facility] Start: 2020 DTaP/Tdap/Td vaccine (1 - Tdap) DTaP/Tdap/Td vaccine (1 - Tdap) [facility] Start: 2020 Zoster vaccine hzv live for subcutaneous use ZOSTER (SHINGLES) VACCINE (1 of 2) [facility] Start: 11-04-2019 Adult BMI Screening Adult BMI Screening [facility] Start: 11-04-2019 Hepatitis C screening Hepatitis C screen [facility] Start: 12-18-2017 Varicella vaccine (2 of 2 - 2-dose childhood series) Varicella vaccine (2 of 2 - 2-dose childhood series) [facility] Start: 12-18-2017 VARICELLA VACCINES (2 of 2 - 2-dose childhood series) VARICELLA VACCINES (2 of 2 - 2-dose childhood series) [facility] Start: 2017 MENB (1 of 2 - Patient Seeks Protection) MENB (1 of 2 - Patient Seeks Protection) [facility] Start: 2017 Screening for Chlamydia trachomatis Chlamydia screen [facility] Start: 2016 HIV screening [facility] Start: 2016 Vaccination for human papillomavirus HPV VACCINE ADOL (1 - 3-dose series) [facility] Start: 11-04-2015 Gastroenterology Transition Assessment Gastroenterology Transition Assessment [facility] Start: 11-04-2015 Hemonc Transition Assessment Hemonc Transition Assessment [facility] Start: 11-04-2015 Rheumatology Transition Assessment Rheumatology Transition Assessment [facility] Start: 2013 Depression Screen Depression Screen [facility] Start: 2013 Depression Screening Depression Screening [facility] Start: 2013 Tobacco Screening Tobacco Screening [facility] Start: 2012 HPV vaccine (1 - 2-dose series) HPV vaccine (1 - 2-dose series) [facility] Start: 2012 Vaccination for human papillomavirus HPV VACCINE ADOL (1 - 2-dose series) [facility] Start: 11-04-2011 MENB (1 of 2 - Risk Bexsero 2-dose series) MENB (1 of 2 - Risk Bexsero 2-dose series) [facility] Start: 2010 HPV VACCINES (1 - 2-dose series) HPV VACCINES (1 - 2-dose series) [facility] Start: 11-04-2007 Pneumococcal 0-64 years Vaccine (1 - PCV) Pneumococcal 0-64 years Vaccine (1 - PCV) [facility] Start: 11-04-2007 Pneumococcal vaccination PNEUMOCOCCAL VACCINE (1 - PCV) [facility] Start: 11-04-2007 PNEUMOCOCCAL VACCINE SERIES (1 - PCV) PNEUMOCOCCAL VACCINE SERIES (1 - PCV) [facility] Start: 11-04-2007 PNEUMOCOCCAL VACCINE SERIES (1 of 2 - PCV) PNEUMOCOCCAL VACCINE SERIES (1 of 2 - PCV) [facility] Start: 2006 COVID-19 Vaccine (1) COVID-19 Vaccine (1) [facility] Start: 2002 Dental Hygiene (Due every 6 months) Dental Hygiene (Due every 6 months) [facility] Start: 2002 Varicella vaccine (1 of 2 - 2-dose childhood series) Varicella vaccine (1 of 2 - 2-dose childhood series) [facility] Start: 2001 Dental Oral Exam Dental Oral Exam [facility] Start: 2001 Hepatitis C screening Hepatitis C screen [facility] Start: 2001 Screening for Chlamydia trachomatis GONORRHEA SCREEN [facility] End: 07-09-2021 Anti-Thyroglobulin Antibody [facility] [employer] Phone: Comment on above: Once for 1 Occurrences starting 07/10/19 until 07/09/2021 End: 01-26-2023 CBC W/AUTOMATED DIFF, REFLEX TO MANUAL CBC W/AUTOMATED DIFF, REFLEX TO MANUAL Lab Routine Iron deficiency One Time for 1 Occurrences starting 01/26/2023 until 01/26/2023 [facility] Work Phone: Comment on above: One Time for 1 Occurrences starting 01/11 until 01/26/2023 Excision excessive s kin & subq tissue other area EXCISION, SKIN AND SUBCUTANEOUS TISSUE Sebaceous cyst [facility] [place] End: 07-09-2021 [facility] Comment on above: Once for 1 Occurrences starting 07/10/19 until 07/09/2021 End: 07-09-2021 Immunoglobulin G Subclasses [facility]: Comment on above: Once for 1 Occurrences starting 07/10/19 until 07/09/2021 End: 07-09-2021 Lymphocyte Subset [facility] [employer] Phone: Comment on above: Once for 1 Occurrences starting 07/10/19 until 07/09/2021 Nasal/sinus ndsc w/partial ethmoidectomy ENDOSCOPY, NOSE, WITH ETHMOIDECTOMY Chronic sinusitis, unspecified location [facility] [place] Nsl/sinus ndsc max antrost w/rmvl tiss max sinus MAXILLARY ANTROSTOMY, WITH TISSUE REMOVAL Chronic sinusitis, unspecified location [facility] [place] End: 07-09-2021 Strep Pneumoniae Antibody Serotypes [facility] Work Phone: Comment on above: Once for 1 Occurrences starting 07/10/19 22 until 07/09/2021 Immunizations Immunization Date Immunization Notes Care Provider Josi perez 08-11-2022 hepatitis B vaccine, adult dosage Rubia Kampfer SNAPPER ON Work Phone: [facility] 06-26-2022 hepatitis B vaccine, adult dosage Rubia Kampfer SNAPPER ON Work Phone: [facility] 05-13-2022 tuberculin skin test ; purified protein derivative solution, intradermal Rubia Kampfer SNAPPER ON Work Phone: [facility] 04-30-2022 tuberculin skin test ; purified protein derivative solution, intradermal Rubia Kampfer SNAPPER ON Work Phone: [facility] 02-19-2022 influenza, injectabl e, quadrivalent, preservative free Rubia Kampfer SNAPPER ON Work Phone: [facility] 02-19-2022 influenza virus vacc ine, unspecified formulation Zhou Lee MD Work Phone: [facility] 02-15-2021 influenza, injectabl e, quadrivalent, preservative free Brielle Teran RN [facility] 02-15-2021 influenza, seasonal, injectable, preservative free Brielle Tearn RN [facility] 02-15-2021 influenza virus vacc ine, unspecified formulation Brielle Teran RN [facility] 02-29-2020 influenza, injectabl e, quadrivalent, preservative free Rubia Kampfer SNAPPER ON Work Phone: [facility] 02-21-2020 influenza, injectabl e, quadrivalent, preservative free Brielle Teran RN [facility] 04-29-2019 influenza, injectabl e, quadrivalent, preservative free Brielle Teran RN [facility] 10-25-2018 meningococcal oligosaccharide (groups A, C, Y and W-135) diphtheria toxoid conjugate vaccine (MCV4O) Brielle Teran RN [facility] 01-08-2018 influenza, injectabl e, quadrivalent, preservative free Brielle Teran RN [facility] 01-08-2018 influenza, seasonal, injectable, preservative free Rubia Hernandez SNAPPER ON Work Phone: [facility] 11-20-2017 influenza virus vacc ine, live, attenuated, for intranasal use Brielle Teran RN [facility] 11-20-2017 influenza, live, intranasal, quadrivalent Rubia Hernandez SNAPPER ON Work Phone: [facility] 02-04-2016 influenza, seasonal, injectable, preservative free Brielle Teran RN [facility] 06-11-2014 tuberculin skin test ; purified protein derivative solution, intradermal Otilia Sinclair Work Phone: [facility] 03-26-2014 influenza, seasonal, injectable, preservative free Brielle Teran RN [facility] 03-17-2014 influenza, seasonal, injectable, preservative free Rubia Hernandez SNAPPER ON Work Phone: [facility] 10-20-2013 meningococcal polysaccharide (groups A, C, Y and W-135) diphtheria toxoid conjugate vaccine (MCV4P) Brielle Terna RN [facility] 10-20-2013 tetanus toxoid, redu rubina diphtheria toxoid, and acellular pertussis vaccine, adsorbed Brielle Teran RN [facility] 05-05-2013 influenza, injectabl e, quadrivalent, preservative free Brielle Teran RN [facility] 12-08-2006 diphtheria, tetanus toxoids and acellular pertussis vaccine Brielle Teran RN [facility] 12-08-2006 measles, mumps and rubella virus vaccine Brielle Teran RN [facility] 12-08-2006 poliovirus vaccine, inactivated Brielle Teran RN [facility] 01-17-2005 influenza, seasonal, injectable Brielle Teran RN [facility] 03-14-2003 influenza virus vacc ine, whole virus Rubia Hernandez SNAPPER ON Work Phone: [facility] 03-14-2003 influenza, seasonal, injectable, preservative free Brielle Teran RN [facility] 03-14-2003 pneumococcal conjuga te vaccine, 7 valent Brielle Teran RN [facility] 02-10-2003 diphtheria, tetanus toxoids and pertussis vaccine Brielle Teran RN [facility] 02-10-2003 DTP Brielle Teran RN [facility] 02-10-2003 haemophilus influenz ae type b vaccine, PRP-T conjugate Brielle Teran RN [facility] 02-10-2003 influenza virus vacc ine, whole virus Rubia Hernandez SNAPPER ON Work Phone: [facility] 02-10-2003 influenza, seasonal, injectable, preservative free Brielle Teran RN [facility] 02-10-2003 pneumococcal conjuga te vaccine, 7 valent Brielle Teran RN [facility] 11-07-2002 measles, mumps and rubella virus vaccine Brielle Teran RN [facility] 11-07-2002 varicella virus vaccine Brielle gilbert RN [facility] 11-07-2002 zoster vaccine, unspecified formulation Giovani Edmonds MD Work Phone: [facility] 06-01-2002 diphtheria, tetanus toxoids and acellular pertussis vaccine Brielle Teran RN [facility] 06-01-2002 haemophilus influenz ae type b conjugate and Hepatitis B vaccine Brielle Teran RN [facility] 06-01-2002 pneumococcal conjuga te vaccine, 7 valent Brielle Teran RN [facility] 06-01-2002 poliovirus vaccine, inactivated Brielle Teran RN [facility] 03-08-2002 diphtheria, tetanus toxoids and acellular pertussis vaccine Brielle Teran RN [facility] 03-08-2002 haemophilus influenz ae type b vaccine, PRP-T conjugate Brielle Teran RN [facility] 03-08-2002 pneumococcal conjuga te vaccine, 7 valent Brielle Teran RN [facility] 03-08-2002 poliovirus vaccine, inactivated Brielle Teran RN [facility] 01-04-2002 diphtheria, tetanus toxoids and acellular pertussis vaccine Brielle Teran RN [facility] 01-04-2002 haemophilus influenz ae type b vaccine, PRP-T conjugate Brielle Teran RN [facility] 01-04-2002 hepatitis B vaccine, pediatric or pediatric/adolescent dosage Brielle Teran RN [facility] 01-04-2002 poliovirus vaccine, inactivated Brielle Teran RN [facility] 2001 hepatitis B vaccine, pediatric or pediatric/adolescent dosage Brielle Teran RN [facility] Payers Date Payer Category Payer Self-pay [id number] 2023 Private Health Insurance [employer] [id number] 2023-Present [address] [place] [address] [id number] .[id number] 2023 Medicaid [id number]. [id number] .[id number] 2013 Unknown [id number]. 1.13.161.2.7 .3.110928.315 2001 Unknown [id number] 2.16.840.1.488018.3.579.2.1 75 2001 Unknown [id number] 2.16.840.1.461139.3.579.2.1 75 2001 Unknown [id number] 2.16.840.1.573314.3.579.2.5 93 2001 Unknown [id number] 2.16.840.1.142105.3.579.2.5 93 2001 Unknown [id number] 2.16.840.1.991943.3.579.2.5 93 2001 Unknown [id number] 2.16.840.1.577921.3.579.2.4 30 2001 Unknown [id number] 2.16.840.1.279489.3.579.2.4 30 2001 Unknown [id number] 2.16.840.1.974779.3.579.2.4 2001 Unknown [id number] 2.16.840.1.986589.3.579.2.4 2001 Unknown [id number] 2.16.840.1.932318.3.579.2.4 2001 Unknown [id number] 2.16.840.1.587424.3.579.2.4 2001 Unknown [id number] 2.16.840.1.519717.3.579.2.4 2001 Unknown [id number] 2.16840.1.570016.3.579.2.4 2001 Unknown [id number] 2.840.1.908999.3.579.2.4 2001 Unknown [id number] 2.840.1.882853.3.579.2.4 2001 Unknown [id number] 2.16840.1.925163.3.579.2.4 2001 Unknown [id number] 2.16840.1.598366.3.579.2.4 2001 Unknown [id number] 2.16840.1.428991.3.579.2.4 2001 Unknown [id number] 2.16840.1.455513.3.579.2.4 2001 Unknown [id number] 2.16840.1.499765.3.579.2.4 2001 Unknown [id number] 2.16840.1.259651.3.579.2.4 2001 Unknown [id number] 2.16840.1.585597.3.579.2.4 2001 Unknown [id number] 2.16.840.1.357694.3.579.2.4 30 2001 Unknown [id number] 2.16.840.1.523546.3.579.2.4 30 2001 Unknown [id number] 2.16.840.1.782098.3.579.2.4 30 2001 Unknown [id number] 2.16.840.1.718938.3.579.2.1 286 2001 Unknown [id number] 2.16.840.1.455737.3.579.2.1 286 2001 Unknown [id number] 2.16.840.1.130743.3.579.2.1 286 2001 Unknown [id number] 2.16.840.1.526897.3.579.2.1 286 2001 Unknown [id number] 2.16.840.1.881910.3.579.2.5 94 2001 Unknown [id number] 2.16.840.1.245407.3.579.2.5 94 2001 Unknown [id number] 2.16.840.1.081336.3.579.2.5 94 2001 Unknown [id number] 2.16.840.1.661542.3.579.2.5 94 2001 Unknown [id number] 2.16.840.1.476567.3.579.2.5 94 2001 Unknown [id number] 2.16.840.1.715107.3.579.2.5 94 2001 Unknown [id number] 2.16.840.1.023340.3.579.2.5 94 2001 Unknown [id number] 2.16.840.1.094779.3.579.2.5 94 2001 Unknown [id number] 2.16.840.1.613405.3.579.2.1 259 2001 Unknown [id number] 2.16.840.1.085266.3.579.2.1 259 2001 Unknown [id number] 2.16.840.1.603926.3.579.2.1 259 2001 Unknown [id number] 2.16.840.1.956009.3.579.2.1 259 2001 Unknown [id number] 2.16.840.1.839370.3.579.2.1 259 2001 Unknown [id number] 2.16.840.1.200680.3.579.2.1 259 2001 Unknown [id number] 2.16.840.1.223747.3.579.2.1 259 2001 Unknown [id number] 2.16.840.1.441040.3.579.2.1 259 2001 Unknown [id number] 2.16.840.1.791541.3.579.2.1 259 2001 Unknown [id number] 2.16.840.1.153833.3.579.2.1 259 2001 Unknown [id number] 2.16.840.1.279194.3.579.2.1 259 2001 Unknown [id number] 2.16.840.1.480083.3.579.2.1 259 2001 Unknown [id number] 2.16.840.1.649336.3.579.2.1 259 2001 Unknown [id number] 2.16.840.1.207806.3.579.2.1 259 2001 Unknown [id number] 2.16.840.1.381894.3.579.2.1 259 2001 Unknown [id number] 2.16.840.1.355239.3.579.2.1 259 2001 Unknown [id number] 2.16.840.1.624217.3.579.2.1 259 2001 Unknown [id number] 2.16.840.1.421727.3.579.2.1 259 2001 Unknown [id number] 2.16.840.1.354840.3.579.2.1 259 2001 Unknown [id number] 2.16.840.1.956435.3.579.2.1 259 2001 Unknown [id number] 2.16.840.1.761939.3.579.2.1 259 2001 Unknown [id number] 2.16.840.1.272342.3.579.2.1 259 2001 Unknown [id number] 2.16.840.1.390222.3.579.2.1 259 2001 Unknown [id number] 2.16.840.1.961893.3.579.2.1 259 2001 Unknown [id number] 2.16.840.1.467429.3.579.2.1 259 2001 Unknown [id number] 2.16.840.1.426581.3.579.2.1 259 2001 Unknown [id number] 2.16.840.1.918743.3.579.2.1 259 2001 Unknown [id number] 2.16.840.1.672138.3.579.2.1 259 2001 Unknown [id number] 2.16.840.1.671695.3.579.2.1 259 2001 Unknown [id number] 2.16.840.1.856153.3.579.2.1 259 1959 Unknown [id number] 1.2.840.931398.1.13.239.2.7 .3.777979.315 1959 Unknown [id number] 1.2.840.206471.1.13.239.2.7 .3.475170.315 Unknown [id number] 2.16.840.1.128397.3.579.2.5 31 Social History Date Type Detail Facility Start: 09-11-2011 End: 02-25-2023 Tobacco smoking status NHIS Never smoked tobacco [employer] Phone: Start: 07-26-2014 Alcohol intake Current non-dr weed cutter of alcohol (finding) [employer] Phone: Start: 2001 [facility] Start: 02-28-2022 End: 02-25-2023 Tobacco use and exposure Smokeless tobacco non-user [facility] Start: 03-21-2022 End: 09-01-2023 Alcohol intake Ex-drinker (finding) [facility] Start: 03-21-2022 End: 09-01-2023 Alcohol intake [facility] Start: 08-26-2021 History SDOH Financial 5 [facility] Start: 08-26-2021 History SDOH Food Worry 1 [facility] Start: 08-26-2021 History SDOH Transport Med 2 [facility] Start: 05-17-2016 End: 09-01-2023 Tobacco use panel [facility] How hard is it for you to pay for the very basics like food, housing, medical care, and heating Not hard at all [facility] (I/We) worried whether (my/our) food would run out before (I/we) got money to buy more. Never true [facility] In the past 12 months, was there a time when you were not able to pay the mortgage or rent on time? No [facility] Start: 12-22-2022 [facility] Are you now , , , [...] Comment caffeine intake : NO [facility] Start: 2001 Sex Assigned At Female F [facility] NEGATED: Highlighted rowStart: SAMMIEF History of tobacco use Passive smoker [facility] Medical Equipment Procedure Code Equipment Code Equipment Origin al Text Equipment Identifier Dates [employer] [id number] Start: 07-23-2015 Comment on above: Description: Narfozia Staplr Ss Ta 90-3.5 - [id number] Start: 03-21-2016 [employer] Floseal 5ml - [id number] Start: 06-11-2018 Comment on above: Description: Sinus Clinical Notes 08-06-2021 to 08-06-2023 Maty Knight - 08/06/2023 12:00 PM EDTStaespinoza Yo MD - 08/06/2023 12:00 PM EDTPatient InstructionsDANIKA Cornelius - 08/06/2023 10:00 AM EDTPatient InstructionsPatient Instructions [...] and treatment Crohn's Disease - diagnosed at [facility] 2011. Therapy has included 6MP, infliximab, stopped due to severe scalp psoriasis), vedolizumab, ustekinumab, adalimumab. She underwent ileocecal resection in 03/2016. Most recent colonoscopy was in 2019. 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 See imaging and biopsy results below. Therapy has included methylprednisolone pulses, methotrexate [id number] (with interruptions; stopped due to inefficacy and frequent infections), rituximab x 2 11/2016, 11/2017, 12/2018, 01/2020, 01/2021, 12/2021. Difficult course with multiple admissions for management of this problem. Psoriasis - diagnosed at [facility] - developed psoriasis of scalp while taking infliximab Hidradenitis suppurativa - diagnosed at [facility]; primarily treated with topical therapies. Pulmonary nodules [...] tight but is not painful. Current providers: MACHINE PECAN PICKER: Alfredo Duong CNM MFM: Dr. Ruchi Carmona Pulmonary: Dr. Xiomara Zurita IBD: Teresa Peterson ENT: Dr. Lee at [facility] Ophtho: need to confirm Does not have [...] viral inclusions seen. IMAGING MRI orbits 07/31/2014 ([facility]): TECHNICAL COMMENTS Contrast Type: Optiray 320 Contrast [...] is noted. This is best seen on disability benefits specialist CT of the brain as the contrast [...] ABDOMEN: Grossly normal. CT chest no contrast [facility] 04/19/2020 REASON FOR EXAM: immune suppression, patient [...] nodules as described above. Bone density 09/16/2018 ([facility]) normal for debo Assessment: Kings Hatfield is [...] visit need to confirm primary care provider, hand candle molder Follow up: I will see her for a 6 week video visit - she was instructed to contact me sooner if problems Addendum: External ultrasound of doppler of LLE was negative for DVT documented in this encounter [facility] 08-06-2023 Instructions Velia Yo MD - 08/06/2023 12:00 PM EDT Nice to see you today! Please have ultrasound done of left leg within 24 hours either at [facility] or [facility] documented in this encounter [facility] 08-06-2023 History of Present illness Narrative Images [...] told Crohn's moved to mouth. Went to [place] and this stopped working. On Rituximab for [...] IBD history Diagnosed (age): 10 Disease distribution: Bairon Classification: CD: A1 <16, L3 ileocolonic GI surgical history: Ileocectomy 2015 Current therapy: Stelara [id number] Past therapy: Infliximab(stopped due to severe scalp [...] Resource Strain: Low Risk (02/09/2023) Received from [facility] Overall Financial Resource Strain (CARDIA) Difficulty of Paying Living Expenses: Not hard at all Food Insecurity: No Food Insecurity (04/24/2023) Received from [facility] Hunger Screening Within the past 12 months we worried whether our food would run out before we got money to buy more.: Never True Within the past 12 months the food we bought just didn't last and we didn't have money to get more.: Never True Transportation Needs: No Transportation Needs (02/09/2023) Received from [facility] PRAPARE - Transportation Lack of Transportation (Medical): No Lack of Transportation (Non-Medical): No Physical Activity: Sufficiently Active (02/09/2023) Received from [facility] Exercise Vital Sign Days of Exercise per Week: 6 days Minutes of Exercise per Session: 40 min Stress: No Stress Concern Present (02/09/2023) Received from [facility] [place] of Occupational Health - Occupational Stress Questionnaire Feeling of Stress : Not at all Social Connections: Moderately Isolated (02/09/2023) Received from [facility] Social Connection and Isolation Panel [NHANES] Frequency of Communication with Friends and Family: More than three times a week Frequency of Social Gatherings with Friends and Family: Twice a week Attends Denominational Services: Never Active Member of Clubs or Organizations: No Attends Club or Organization Meetings: Never Marital Status: Living with partner Intimate Partner Violence: Not At Risk (02/09/2023) Received from [facility] Humiliation, Afraid, Rape, and Kick questionnaire Fear of Current or Ex-Partner: No Emotionally Abused: No Physically Abused: No Sexually Abused: No Housing Stability: Low Risk (02/09/2023) Received from [facility] Housing Stability Vital Sign Unable to [...] STUDIES: Relevant radiology studies were reviewed in Epic IMPRESSION: Kings Hatfield is a 22 y.o. female w/ PMH Ileocolonic Crohn's disease s/p ileocectomy 2016 on Stelara [id number], orbital myositits, psoriasis, chronic sinusitis here to [...] name and . [facility] Instructions DANIKA Cornelius - 08/06/2023 10:00 AM EDT - Continue Stelara every 8 weeks - Baby no live vaccines for 6 months (rotavirus) - Stool calprotectin - Will follow up with Rheumatology for orbital myositis - Will obtain colonoscopy next March - RTC 3 months documented in this encounter [facility] 04-24-2023 History of Present illness Narrative Headache/epigastric pain/blurry vision/swelling? No Cramping/contractions? No Abnormal vaginal discharge? No Spotting/vaginal bleeding? No Loss of fluid like your water may have broken? No Cats in the home? No Do you change the litter box? N/A Flu vaccine? No Genetic testing done this here or other office?Yes Have you been seen here at [facility] in a previous ? No Recent ER visits or hospitalizations? No Bring blood sugar log or meter with you today? (Please bring them with you for every visit at [facility]) N/A Traveled outside the country in the past 6 month No Any concerns that you would like me to mention to the provider today? No [facility] Consult Note Reason For Consult: HPI: Kings Hatfield is a 22 y.o. @ 19w4d who presented for consultation from Alfredo Fortune APRN-JOHANA regarding Chief Complaint Patient presents with HX Colitis Crohn's Disease She reports that she is doing well. She reports normal movements and she denies LOF, contractions, vaginal bleeding, headache, blurry vision, RUQ pain and edema. The primary encounter diagnosis was Maternal Crohn's disease affecting in second trimester ([facility]). Diagnoses of History of chronic ulcerative colitis and 19 weeks gestation of were also pertinent to this visit. She has had low risk aneuploidy screen for select aneuploidy of chromosomes 21, 13, 18 and sex chromosomes. Review of systems: Review of systems was noncontributory Complications: Problem List Items Addressed This Visit None Visit Diagnoses Maternal Crohn's disease affecting in second trimester ([facility]) - Primary History of chronic ulcerative colitis 19 weeks gestation of PMH: Past Medical History: Diagnosis Date Anemia Crohn's disease ([facility]) GERD (gastroesophageal reflux disease) Myositis Peptic ulcer [...] Maternal Crohn's disease affecting in second trimester ([facility]) 2. History of chronic ulcerative colitis Kings [...] Crohn's disease s/p ileocectomy 2016 on Stelara [id number], orbital myositits, psoriasis, chronic sinusitis Per gastroenterology: PLAN/RECOMMENDATIONS: -Chem 6 and LFT's ordered -CRP and stool calprotectin -Quantiferon TB, TPMT and chronic hepatitis panel ordered -Some nutrition labs ordered -UST level ordered -Continue Stelara every 8 weeks. Will plan for Stelara to be given 8 weeks or so prior to delivery and then shortly after. Following with high speed warper tender -Will follow up with Rheumatology for orbital [...] Maternal Crohn's disease affecting in second trimester ([facility]) [O99.612, K50.90] Recommendations: Follow-up detailed anatomic evaluation in 4 weeks Serial growth assessments every 4 weeks after the anatomy scan Follow-up with [facility] at [facility] Recommend obtaining thyroid function tests Delivery recommended at or after 39-40 weeks, earlier as clinically indicated Plan reviewed with patient. She vocalized understanding all questions answered. The patient is to continue with routine care in your office [facility] [place], the CDC, and other organizations representing maternal and public health professionals recommend that , , and lactating people and those considering receive the COVID-19 vaccination. Vaccination is the best method to reduce maternal and complications of SARS-CoV-2 infection. This document was created with [employer] technology. Though I make every effort to review the dictation as it is transcribed, on occasion the spoken word can be misinterpreted by the technology leading to inappropriate words, phrases, or sentences. This note is addressed to the requesting provider as a consultation for clinical guidance. Specific medical abbreviations are occasionally used and those are generally approved by the [place]?Board of?Obstetrics and?Gynecology?as well as?Earle s abbreviations. The above plan of care was based solely on the diagnoses for which a consultation was requested. ?More frequent testing may be indicated based on her other medical/obstetrical conditions. The management of other or medical conditions is beyond the scope of requested consultation and will continue to be followed by the primary caustic room operator or primary care provider. Thank you for [...] procedures Referring and communicating with other health sub acute care nurse (not separately reported) Documenting clinical information in the electronic or other health record Independently interpreting results (not separately reported) and communicating results to the patient/family/caregiver Care coordination (not separately reported) documented in this encounter [facility] 04-03-2023 History of Present illness Narrative MA to room to draw Anser UST- red serum tube Pt identified with name and 1 attempt made in right Antecubital fossa- success Excessive Bleeding or Bruising at draw site: no documented in this encounter [facility] 03-03-2023 Telephone encounter Note Noted. Pete Jaramillo [facility] 03-03-2023 Miscellaneous Notes Noted. Pete Jaramillo Spoke with Kings. She has established care w/[facility]. She has appoints (at [facility]) in March and April. placed on chart. documented in this encounter [facility] 03-03-2023 Telephone encounter Note Spoke with Kings. She has established care w/[facility]. She has appoints (at [facility]) in March and April. placed on chart. [facility] 02-25-2023 History of Present illness Narrative [facility] Chief Complaint Patient presents with New Patient : 22 y.o. female sent in consultation by Alexx Arriola MD for evaluation of Crohn's disease. HISTORY OF PRESENT ILLNESS Kings Hatfield is a 22 y.o. female w/ [facility] Ileocolonic Crohn's disease Stelara, orbital myositits, psoriasis, [...] told Crohn's moved to mouth. Went to [place] and this stopped working. On Rituximab for [...] IBD history Diagnosed (age): 10 Disease distribution: Bairon Classification: CD: A1 <16, L3 ileocolonic GI surgical history: Ileocectomy 2016 Current therapy: Stelara [id number] Past therapy: Infliximab(stopped due to severe scalp [...] STUDIES: Relevant radiology [facility] IMPRESSION: Kings Hatfield is a 22 y.o. female w/ PMH Ileocolonic Crohn's disease s/p ileocectomy 2016 on Stelara [id number], orbital myositits, psoriasis, chronic sinusitis here to [...] and then shortly after. Following with high speed warper tender -Will follow up with Rheumatology for orbital [...] MD Division of Gastroenterology, Hepatology, and Nutrition Pager:[phone] This MA verified patients name and . documented in this encounter [facility] 02-25-2023 Instructions Giovani Edmonds MD - 02/25/2023 1:00 PM EST Thank you for coming to [facility] Gastroenterology, Hepatology, and Nutrition. It was a [...] will either call you, send you a [facility] message, or mail you a letter with the results of your tests within 1-2 weeks after you have completed your tests. If you do not hear from our office, please call the clinic to receive your results at [phone]. If you need to fax old records in, please fax to [phone]. --------- If you have any concerning symptoms, please seek immediate medical attention. documented in this encounter [facility] 01-26-2023 Hospital Discharge instructions Zhou Aly MD - 01/26/2023 11:16 AM EDT It was a pleasure seeing Kings today. Have a ferritin checked in 3-4 months to ensure no need for iron infusion. We will work on finding an adult Peanut Sorter to follow with at [facility]. Hematology Clinic Patient Instructions Please call if you have any questions or concerns about your child's care during the hours of 8-5 Thursday through Thursday. After 5PM on weekdays or on weekends please call the hospital conveyor system operator and ask for the swabber medical certification specialist. documented in this encounter [facility] 01-26-2023 History of Present illness Narrative Informant: self mother Patient is a 22yo her for f/u recurrent sinusitis. History turbs and sinus surgery 03/20/22. Doing well. [facility] PEDIATRIC OTOLARYNGOLOGY FOLLOW UP VISIT NOTE Chey Aragon MD [address] [place] [address] Kings Hatfield is a 22 year female [...] Labs: None Outside medical record review: None [facility] chart review: Previous ENT notes reviewed Discussion [...] this encounter [facility] 01-26-2023 Instructions Christin Suazo RN - 01/26/2023 10:00 AM EDT You do not need to schedule an ENT office visit at this time but we are happy to see you in the future for any additional ENT concerns. Please call Central Scheduling at [phone] and follow the prompts to schedule an ENT office visit should you need a future appointment in the ENT clinic. Call us at [phone] to speak to a nurse if you should have any additional ENT- related questions or concerns after today s visit. Department of Otolaryngology (ENT) Patient Instructions ENT Nurse Triage Line: [phone] (Thursday through Thursday 8:00 am - 4:00 pm) Please call the ENT Nurse Triage Line if you need to speak to a nurse for any ENT- related medical concerns prior to your next appointment. [facility] C Unix Developer: [phone] (Weekdays after 4:00 pm and on Weekends) If you have urgent ENT concerns for your child after hours that can t wait until our return to the office, please call the hospital conveyor system operator and ask to speak to the ENT physician medical certification specialist. [facility] Central [phone] (Thursday through Thursday 7:30 am -5:30 pm) Please call Central Scheduling and follow the prompts to schedule an ENT appointment if you did not schedule an appointment today, or if you need to cancel and reschedule a future appointment. For more information about the Department of Otolaryngology (Ear, Nose and Throat) at [facility], please visit our website at: [email or web address] documented in this encounter [facility] 01-26-2023 History of Present illness Narrative [...] of disease: Problem List: 1. Crohn's Disease: [facility]- GI. S/p enteral diet, s/p Infliximab (d/c'd [...] bursitis. She had an adjustment with an development trainer. She has been given stretches. She uses KT tape. She has the most difficulty with sleep. Ice helps on occasion. She is 7 weeks . She has an appointment with a high speed warper tender/GYN in the next couple of weeks. She [...] Patient Global: 0 mm Provider Global: -- cJADAS 10: -- Tests/ External Records Reviewed: I reviewed this information: Diagnostic Labs Toxicity Monitoring Labs Inflammatory Markers MRI Pathology reports Latest Reference Range & Units Most Recent (1,3)-GUVX-U-FTEFIF pg/mL <31 04/15/19 21:20 (1,3)-ILBC-M-PHQNLH INTERP Negative Negative 04/15/19 21:20 ALBUMIN, CSF [...] AB TITER (IFA) NEG^Negative Negative 08/07/14 05:48 TOMY-SOLAR SALES REPRESENTATIVE AND ASSESSOR NEG^Negative Negative 08/07/14 05:48 TOMY-SM NEG^Negative Negative [...] appropriate to have her see an adult diesel mechanic farm in the case of a flare as [...] with Dr. Yo documented in this encounter [facility] 01-26-2023 Instructions Ioana Otero MD - 01/26/2023 8:15 AM EDT Discussion and Guidance: 1. Will refer to Dr. Yo at [facility]. 2. Will hold off on rituximab since you are doing well. 3. Could ultrasound your hip if it bothered you more. 4. Stretches can be very helpful. Follow-up: Follow-up at [facility] with Dr. Yo How to reach Rheumatology 1. Sign up for [employer] to use a secure e-mail system for non-urgent issues (this is NOT checked on weekends). 2. For medical questions between 8 am - 4 pm, call our nurse line at [phone] option 2. 3. For medical questions at night, over the weekend or a holiday, call the hospital conveyor system operator at [phone] and ask to talk to the Employment And Claims Aide. 4. To schedule or change an appointment, call Central Scheduling at [phone], press option 4, then option 7. 5. For other nonmedical questions, call a personal secretary at [phone], option 4. 6. If you cannot reach a person and need information the same day, call the hospital conveyor system operator at [phone] and ask to talk to the Employment And Claims Aide medical certification specialist. documented in this encounter [facility] 01-21-2023 Telephone encounter Note Received fax from [facility]. Printed and placed on Dr. Otero's door for review and/or signature. [facility] 01-21-2023 Miscellaneous Notes Received fax from [facility]. Printed and placed on Dr. Otero's door for review and/or signature. documented in this encounter [facility] 01-09-2023 Telephone encounter Note Pharmacy Note Reviewed medications for risk: -Rituximab: last dose received 01/2022. Will review registry data with primary rheumatology team. Per ACR guidelines, risk of B cell depletion if dosed in second half of . -Stela (managed by GI): Dr. Slater recommended continuing with the January dose. Plans to then transition to adult sales and marketing coordinator [facility] 01-09-2023 Miscellaneous Notes Pharmacy Note Reviewed medications for risk: -Rituximab: last dose received 01/2022. Will review registry data with primary rheumatology team. Per ACR guidelines, risk of B cell depletion if dosed in second half of . -Stela (managed by GI): Dr. Slater recommended continuing with the January dose. Plans to then transition to adult sales and marketing coordinator Received incoming call that Kings is . Diagnosis Orbital myositis Primary Employment And Claims Aide Ioana Otero How did patient find out about Home test Date of last menses 12/08/2022 Last dose of each teratogenic medication (methotrexate, leflunomide, cyclophosphamide, NSAID, ACEi) N/a - no recent NSAID's Do you have appt with MACHINE PECAN PICKER? Yes, date of appt 02/04/2023 If underage, is family aware? N/A - mom is aware Best phone number for follow up [phone] Is it okay to leave message on preferred phone? Yes Recommendations for patient: 1. Hold teratogenic medication (methotrexate, leflunomide, cyclophosphamide, NSAID, ACEi) 2. Do not stop hydroxychloroquine or prednisone (if applicable) 3. Start vitamin 4. Follow up with other prescribers/clinics to evaluate non-rheumatology medications Recommendation for nurses: Notify team : Primary diesel mechanic farm, Velia Hernandes Recommendations for providers: 1. Order serum test, if needed 2. Further evaluate current medications 3. Refer to [facility], if needed 4. Follow up with patient within 24 hours Patient is in the process of informing all [facility] specialists. She has talked to GI and received guidance. She is taking a vitamin. Ideally Kings would like to keep her October follow-ups here at [facility] and then transition to adult rheum/GI closer to home. Dr. Otero/Geovanna please advise documented in this encounter [facility] 01-09-2023 Telephone encounter Note Received incoming call that Kings is . Diagnosis Orbital myositis Primary Employment And Claims Aide Ioana Otero How did patient find out about Home test Date of last menses 12/08/2022 Last dose of each teratogenic medication (methotrexate, leflunomide, cyclophosphamide, NSAID, ACEi) N/a - no recent NSAID's Do you have appt with MACHINE PECAN PICKER? Yes, date of appt 02/04/2023 If underage, is family aware? N/A - mom is aware Best phone number for follow up [phone] Is it okay to leave message on preferred phone? Yes Recommendations for patient: 1. Hold teratogenic medication (methotrexate, leflunomide, cyclophosphamide, NSAID, ACEi) 2. Do not stop hydroxychloroquine or prednisone (if applicable) 3. Start vitamin 4. Follow up with other prescribers/clinics to evaluate non-rheumatology medications Recommendation for nurses: Notify team : Primary diesel mechanic farm, Geovanna Simms, Velia Yo Recommendations for providers: 1. Order serum test, if needed 2. Further evaluate current medications 3. Refer to [facility], if needed 4. Follow up with patient within 24 hours Patient is in the process of informing all [facility] specialists. She has talked to GI and received guidance. She is taking a vitamin. Ideally Kings would like to keep her October follow-ups here at [facility] and then transition to adult rheum/GI closer to home. Dr. Otero/Geovanna please advise [facility] 12-26-2022 Telephone encounter Note TP updated, flagged ready for PA. [facility] 12-26-2022 Miscellaneous Notes TP updated, flagged [...] needed. Thank you! documented in this encounter [facility] 12-26-2022 Telephone encounter Note Rituximab added back into the therapy plan. [facility] Work Phone: 12-23-2022 Telephone encounter Note Signed. Thank you. [facility] 12-23-2022 Miscellaneous Notes Signed. Thank you. Stelara refill request received from pharmacy. Pended for review. OV scheduled for 02/18/23. Labs recently ordered to be obtained before the visit. documented in this encounter [facility] 12-23-2022 Telephone encounter Note Stelara refill request received from pharmacy. Pended for review. OV scheduled for 02/18/23. Labs recently ordered to be obtained before the visit. [facility] 12-19-2022 Telephone encounter Note Informed by Geovanna Centeno with SP that Ritux no longer in TP. Dr. Otero please re-add medication/update TP, and inform nursing when complete. Then will update SP to re-PA. Thank you! [facility] 12-19-2022 Telephone encounter Note Sent referral back to Pharmacy PA for Infusions Team via WQ to be re-authorized. Dr. Otero FYI only (nothing needed from you at this time- will alert you with any issues with the PA) [facility] 12-18-2022 History of Present illness Narrative Prior Authorization for Specialty Medication Clinic: GI Diagnosis: K50.819 - Crohns Medication name: Stelara Medication dose: 90mg Medication frequency: Every 8 weeks Reason for PA: Renewal Kings's Prior Authorization has been APPROVED. Insurance #1: [facility] Type: Pharmacy PA Status: Approved Approved from: 12/18/22 Approved to: 12/18/23 PA #: [id number] Filling Pharmacy: Other ([facility]) Prior Authorization for Specialty Medication Clinic: GI Diagnosis: K50.819 - Crohns Medication name: Stelara Medication dose: 90mg Medication frequency: Every 8 weeks Reason for PA: Renewal Kings's Prior Authorization has been SUBMITTED. Insurance #1: [facility] Type: Pharmacy PA Status: Submitted Information submitted: Office Note Method of submission : CoverMyMeds documented in this encounter [facility] 12-17-2022 Telephone encounter Note Per encounter [...] SP to PA if needed. Thank you! [facility] 11-21-2022 Telephone encounter Note Pt called to change yearly followup appointment to a different day in order to line up with other appointments due to having a long commute. Pt rescheduled for 01/[address] Aly. [facility] 11-21-2022 Miscellaneous Notes Pt called to change yearly followup appointment to a different day in order to line up with other appointments due to having a long commute. Pt rescheduled for 01/[address] Aly. documented in this encounter [facility] [facility] 09[facility]22 Telephone encounter Note Patient called back to schedule 01-05-[address] lee, post op made, pt aware of pat call [facility] Work Phone: 09-24-2022 Miscellaneous Notes Patient called back to schedule 01-05-[address] lee, post op made, pt aware of pat call documented in this encounter [facility] 09-04-2022 History of Present illness Narrative Per [facility] RPS Letter #9, [facility] requested clinicals be sent. Clinicals sent via fax on 09.03.2022. documented in this encounter [facility] 07-16-2022 History of Present illness Narrative Faxed [facility] reapplication to [phone]. Scanned into the chart. documented in this encounter [facility] 05-05-2022 History of Present illness Narrative MD Rosy Hernandez[address] [place] [address] 21 year old female here today for post op. 03/20/2022 Turbinate and sinus surgery. Saline rinses and flonase prn. No new concerns. [facility] PEDIATRIC OTOLARYNGOLOGY FOLLOW UP VISIT NOTE MD Rosy Hernandez[address] [place] [address] Kings Hatfield is a 21 year female [...] Labs: None Outside medical record review: None [facility] chart review: Previous ENT notes reviewed Discussion [...] OPTIONS: F/U PRN documented in this encounter [facility] 05-05-2022 Instructions Yoana Farrar RN - 05/05/2022 11:30 AM EST Department of Otolaryngology (ENT) Patient Instructions ENT Nurse Triage Line: [phone] (Thursday through Thursday 8:00 am - 4:00 pm) Please call the ENT Nurse Triage Line if you need to speak to a nurse for any ENT- related medical concerns prior to your next appointment. [facility] C Unix Developer: [phone] (Weekdays after 4:00 pm and on Weekends) If you have urgent ENT concerns for your child after hours that can t wait until our return to the office, please call the hospital conveyor system operator and ask to speak to the ENT physician medical certification specialist. [facility] Central [phone] (Thursday through Thursday 7:30 am -5:30 pm) Please call Central Scheduling and follow the prompts to schedule an ENT appointment if you did not schedule an appointment today, or if you need to cancel and reschedule a future appointment. For more information about the Department of Otolaryngology (Ear, Nose and Throat) at [facility], please visit our website at: [email or web address] You do not need to schedule an ENT office visit at this time but we are happy to see you in the future for any additional ENT concerns. Please call Central Scheduling at [phone] and follow the prompts to schedule an ENT office visit should you need a future appointment in the ENT clinic. Call us at [phone] to speak to a nurse if you should have any additional ENT- related questions or concerns after today s visit. documented in this encounter [facility] 04-08-2022 Telephone encounter Note Telephone Follow-Up [...] parents / patient has concerns: No concerns [facility] 04-08-2022 Miscellaneous Notes Telephone Follow-Up Excision [...] concerns: No concerns documented in this encounter [facility] 03-18-2022 Telephone encounter Note Status denied. A possible peer to peer review with ENT is possible. Awaiting to hear from them [facility] 03-18-2022 Miscellaneous Notes Status denied. A possible peer to peer review with ENT is possible. Awaiting to hear from them Status checked at this time, denied Submitted appeal, ID is [id number] Received denial on [employer] web portal. Spoke with parts sales representative on the phone and was told to fax clinicals for reconsideration. Clinicals faxed to [phone]. Authorization pending via [employer]. Pediatric Surgery Pre-Schedule/Certification Information Patient Information: Name: Kings Hatfield Date of : 2000 Case and Schedule Information: Surgeon: Dr. Lakisha Narayan Case: ENT Admit Type: OP Location: OR CPT: 87362 Procedure or Exam Description: EXCISION OF SKIN AND SUBCUTANEOUS TISSUE ICD10 Code: L 72.3 Scheduled Date: 03/20/22 documented in this encounter [facility] 03-14-2022 Telephone encounter Note Status checked at this time, denied Submitted appeal, ID is [id number] [facility] 03-11-2022 Telephone encounter Note Received denial on [employer] portal. Spoke with parts sales representative on the phone and was told to fax clinicals for reconsideration. Clinicals faxed to [phone]. [facility] 02-27-2022 Telephone encounter Note Authorization pending via [employer]. [facility] 02-06-2022 Telephone encounter Note Pediatric Surgery Pre-Schedule/Certification Information Patient Information: Name: Kings Hatfield Date of : 2000 Case and Schedule Information: Surgeon: Dr. Lakisha Narayan Case: ENT Admit Type: OP Location: OR CPT: 70669 Procedure or Exam Description: EXCISION OF SKIN AND SUBCUTANEOUS TISSUE ICD10 Code: L 72.3 Scheduled Date: 03/20/22 [facility] 08-06-2021 Note HISTORY: Eye swellin g PROCEDURE: [employer] VCT 64. Without IV contrast, images of [...] signed by Herbie Pace on 08/06/2021 1523 [facility] Payroll Technician Evaluation note Diagnosis Orbital myositis, unspecified laterality- Primary Chronic sinusitis, unspecified location [facility]* Diagnosis Chronic sinusitis, unspecified location- Primary [facility]* Diagnosis Iron deficiency Other disorders of iron metabolism [facility]* Diagnosis Orbital myositis, unspecified laterality- Primary Crohn's disease of small and large intestines with complication Immunosuppressed status Unspecified disorder of immune mechanism Chronic pansinusitis Other chronic sinusitis Pulmonary nodules Other nonspecific abnormal finding of lung field Psoriasis Other psoriasis Less than 8 weeks gestation of state, incidental [facility]* Diagnosis Crohn's disease of both small and large intestine with complication- Primary Regional enteritis of small intestine with large intestine Orbital myositis, unspecified laterality 11 weeks gestation of state, incidental [facility] Diagnosis Crohn's disease of both small and large intestine with complication- Primary Regional enteritis of small intestine with large intestine [facility] Diagnosis Maternal Crohn's disease affecting in second trimester ([facility])- Primary History of chronic ulcerative colitis 19 weeks gestation of [facility] Diagnosis Viral URI- Primary Acute upper respiratory infections of unspecified site 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, 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) Crohns disease of both small and large intestine with unspecified complications (K50.819) Bilateral impacted cerumen Impacted cerumen documented in this encounter [facility]* Diagnosis Maternal Crohn's disease affecting in second trimester ([facility])- Primary History of chronic ulcerative colitis [facility] Diagnosis Crohn's disease in remission- Primary [facility] Diagnosis Orbital myositis, unspecified laterality- Primary Crohn's disease of small and large intestines with complication Immunosuppressed status Unspecified disorder of immune mechanism Chronic pansinusitis Other chronic sinusitis Pulmonary nodules Other nonspecific abnormal finding of lung field Psoriasis Other psoriasis Less than 8 weeks gestation of state, incidental Left leg swelling Psoriasis of scalp Other psoriasis documented [facility] this [facility] assessment information available [facility] Work Phone: History of Present illness Narrative* Rubia Hernandez NP - 05/26/2023 7:30 PM ESTAssociated Order(s): Ear Cerumen Removal Post-Procedure Diagnose(s): Bilateral impacted cerumen Kings Hatfield is a 22 y.o. female presents with chief complaint of Earache HPI: Patient is here for earache. 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) -Followed by member service specialist Crohns disease of both small and large intestine with unspecified complications (K50.819) -Followed by GI Bilateral impacted cerumen Other orders - Ear Cerumen Removal documented [facility] CenterInstructionsNot on filedocumented in this encounterProUniversity [facility] SystemInstructionsNot on filedocumented in this encounterProSelect [facility] OhioInstructionsNot on filedocumented in this encounterBarney Children's Medical CenterReason for referral (narrative)* Consultation (Routine) - New Request Specialty Diagnoses / Procedures Referred By Wayne liz Referred To Contact Rheumatology Diagnoses Orbital myositis, unspecified laterality Crohn's disease of small and large intestines with complication Immunosuppressed status Chronic pansinusitis Pulmonary nodules Psoriasis Less than 8 weeks gestation of Ioana Otero MD [address] [place] [address] Referral ID Status Reason Start Date Expiration Date Visits Requested Visits Authorized [id number] New Request Specialty Services Required 3 7 7 [facility] for visit Narrative* Treatment Plan and Therapy Plan (Routine) - Authorized Specialty Diagnoses / Procedures Referred By Wayne t Referred To Contact Diagnoses Crohn's disease of both small and large intestine with complication (HCC) Procedures MD TUCKERX-C/Shakira Sanchez MD [address] [facility] [address] [place] [address] [facility] Med Surg [address] [place] [address] Referral ID Status Reason Start Date Expiration Date V isits Requested Visits Authorized [id number] Authorized 08/09/2021 09/08/2021 1 1 [employer] Phone: Summary Purpose Family History No Family History Records FoundNo Family History Records FoundNo Family History Records FoundNo Family History Records FoundNo Family History Records FoundNo Family History Records FoundNo Family History Records FoundNo Family History Records FoundNo Family History Records Found Advance Directives No Advanced Directives Records FoundDocuments on File Type Date Recorded Patient Betting Agency Manager Expl anation ACP-Advance Directive ACP-Power of Project Controls Scheduler Latest Code Status on File Code Status Date Activated Date Inactivated Comments Full Code 07/26/2014 11:40 PM 07/28/2014 10:19 PM Full Code 07/19/2014 7:32 PM 07/25/2014 8:24 PM Full Code 07/02/2014 7:22 PM 07/07/2014 12:22 PM Full Code 04/20/2014 11:13 AM 04/26/2014 3:37 PM Full Code 03/24/2014 7:43 PM 03/25/2014 12:50 PM Documents on File Type Date Recorded Patient Betting Agency Manager Expl anation ACP-Advance Directive ACP-Power of Project Controls Scheduler Latest Code Status on File Code Status Date Activated Date Inactivated Comments Full Code 07/26/2014 11:40 PM 07/28/2014 10:19 PM Full Code 07/19/2014 7:32 PM 07/25/2014 8:24 PM Full Code 07/02/2014 7:22 PM 07/07/2014 12:22 PM Full Code 04/20/2014 11:13 AM 04/26/2014 3:37 PM Full Code 03/24/2014 7:43 PM 03/25/2014 12:50 PM Advance Directive Response Recorded Date/ Time Advance Directives No December 11:22am Reason for Referral Specialty Diagnoses / Procedures Referred By Contac t Referred To Contact Hematology Procedures Hematology Oncology Clinic Appointment Request Ny Cool APN [address] [place] [address] Referral ID Status Reason Start Date Expiration Date Visits Requested Visits Authorized [id number] Authorization Not Required 3 1 1 Specialty Diagnoses / Procedures Referred By Contac t Referred To Contact Maternal and Medicine Diagnoses Maternal Crohn's disease affecting in second trimester (CMS-HCC) History of chronic ulcerative colitis Procedures [facility] with or without consult Ruchi Carmona MD [address], [address] [place] [address] [facility] Maternal Med [address] [place] [address] Referral ID Status Reason Start Date Expiration Date V isits Requested Visits Authorized [id number] Pending Review 06/01/2023 05/31/2024 1 1 Specialty Diagnoses / Procedures Referred By Contac t Referred To Contact Diagnoses Left leg swelling Procedures VASC DUPLEX VENOUS EXTREMITY LOWER LEFT MD DUPLEX EXTREM VENOUS,[facility] Velia Yo MD [address] [place] [phone] Referral ID Status Reason Start Date Expiration Date V isits Requested Visits Authorized [id number] New Request 08/06/2023 08/30/2024 1 1 Additional Source Comments INFORMATION SOURCE (unrecogn ized section and content) DATE CREATED AUTHOR 01/17/2020 [facility] DATE CREATED AUTHOR AUTHOR'S ORGANIZ ATION 08/14/2021 [facility] DATE CREATED AUTHOR AUTHOR'S ORGANIZ ATION 02/15/2022 [facility] DATE CREATED AUTHOR AUTHOR'S ORGANIZ ATION 04/05/2022 [facility] dical Specialist DATE CREATED AUTHOR AUTHOR'S ORGANIZ ATION 01/30/2023 [facility] DATE CREATED AUTHOR AUTHOR'S ORGANIZ ATION 07/05/2023 [facility] DATE CREATED AUTHOR AUTHOR'S ORGANIZ ATION 08/10/2023 [facility] DATE CREATED AUTHOR AUTHOR'S ORGANIZ ATION 09/05/2023 [facility] ysician Group DATE CREATED AUTHOR AUTHOR'S ORGANIZ ATION 09/06/2023 [facility] dical Specialists [facility] Care Teams (unrecognized sec tion and content) Business Services Manager Relationship Specialty Start [place] [address] PCP - General 08/23/12 Business Services Manager Relationship Specialty Start Date End Date Chey Pillai MD [address] [place] [id number] PCP - General Family Medicine 08/06/21 Business Services Manager Relationship Specialty Start Date End Date Chey Aragon MD [address] [place] [id number] PCP - General Family Medicine 01/30/20 Business Services Manager Relationship Specialty Start Date End Date Chey Aragon MD [address] [place] [id number] PCP - General Family Medicine 01/30/20 Business Services Manager Relationship Specialty Start Date End Date Chey Aragon MD [address] [place] [id number] PCP - General Family Medicine 01/30/20 Business Services Manager Relationship Specialty Start Date End Date Chey Aragon MD [address] [place] [id number] PCP - General Family Medicine 01/30/20 Business Services Manager Relationship Specialty Start Date End Date Chey Aragon MD [address] [place] [id number] PCP - General Family Medicine 01/30/20 Business Services Manager Relationship Specialty Start Date End Date Chey Aragon MD [address] [facility] [place] [address] PCP - General Family Medicine 01/30/20 Business Services Manager Relationship Specialty Start Date End Date Chey Aragon MD [address] [place] [address] PCP - General Family Medicine 01/30/20 Business Services Manager Relationship Specialty Start Date End Date Chey Aragon MD [address] [place] [address] PCP - General Family Medicine 01/30/20 Business Services Manager Relationship Specialty Start Date End Date Chey Aragon MD [address] [place] [address] PCP - General Family Medicine 01/30/20 Business Services Manager Relationship Specialty Start Date End Date Chey Aragon MD [address] [place] [address] PCP - General Family Medicine 01/30/20 Business Services Manager Relationship Specialty Start Date End Date Chey Aragon MD [address] [place] [address] PCP - General Family Medicine 01/30/20 Business Services Manager Relationship Specialty Start Date End Date Chey Aragon MD [address] [place] [address] PCP - General Family Medicine 01/30/20 Business Services Manager Relationship Specialty Start Date End Date Chey Aragon MD [address] [place] [address] PCP - General Family Medicine 01/30/20 Business Services Manager Relationship Specialty Start Date End Date Chey Aragon MD [address] [place] [address] PCP - General Family Medicine 01/30/20 Business Services Manager Relationship Specialty Start Date End Date Chey Aragon MD [address] [place] [address] PCP - General Family Medicine 01/30/20 Business Services Manager Relationship Specialty Start Date End Date Chey Aragon MD [address] [place] [address] PCP - General Family Medicine 04/29/22 Business Services Manager Relationship Specialty Start Date End Date Chey Aragon MD [address] [place] [address] PCP - General Family Medicine 04/29/22 Business Services Manager Relationship Specialty Start Date End Date Chey Aragon MD [address] [place] [address] PCP - General Family Medicine 04/29/22 Business Services Manager Relationship Specialty Start Date End Date Chey Aragon MD [address] [place] [address] PCP - General Family Medicine 10/27/22 Chey Aragon MD [address] [place] [address] PCP - [employer] 04/13/23 Serene Alfred NP [address] [place] [address] Nurse Practitioner Family Medicine 10/27/22 Business Services Manager Relationship Specialty Start Date End Date Chey Aragon MD [address] [place] [address] PCP - General Family Medicine 10/27/22 Chey Aragon MD [address] [place] [address] PCP - [employer] 04/13/23 Serene Alfred NP [address] [place] [address] Nurse Practitioner Family Medicine 10/27/22 Business Services Manager Relationship Specialty Start Date End Date Chey Aragon MD [address] [place] [address] PCP - General Family Medicine 04/29/22 Team Status: Inactive Member Role Status Dates Alfredo Duong APRN Attending Provider Active Start: September 03, 2023 End: September 03, 2023 Scheduled Active and Recently Administ ered Medications (unrecognized section and content) Medication Order 08/11/2021 08/12/2021 08/13/2021 immune globulin (GAMMAGARD) 10% solution 35 g (COMPLETED) 35 g, IntraVENous, ONCE, 1 dose, On Thu08/13/21 at 1000, Reason for Non-Formulary Order: approved form insurance for Gammagard, Pharmacy to insert product specific administration instructions here. 1132 (New Bag - Prov ider: Loraine Walter RN)[phone] (Stopped - Provider: Loraine Walter RN) PRN [...] Count Specialty Diagnoses / Procedures Referred By Contac t Referred To Contact Hematology Procedures Hematology Oncology Clinic Appointment Request Ny Cool APN [address] [place], [place] [id number] Referral ID Status Reason Start Date Expiration Date Visits Requested Visits Authorized [id number] Authorization Not Required 3 1 1 Reason Comments FOLLOW-UP Reason Onset Date Comments Update 01/09/2023 Reason Onset Date Comments Results 01/21/2023 Reason Comments New Patient Specialty Diagnoses / Procedures Referred By Contac t Referred To Contact Gastroenterology Diagnoses Crohn's disease of both small and large intestine with complication Alexx Slater MD [address] [place] [address] [facility] [address] [place] [address] Referral ID Status Reason Start Date Expiration Date V isits Requested Visits Authorized [id number] Pending Review 01/16/2023 02/10/2024 1 1 Reason [...] 8 weeks gestation of Ioana Otero MD [address] [place] [address] Velia Yo MD [address] [place] [phone] Referral ID Status Reason Start Date Expiration Date V isits Requested Visits Authorized [id number] Pending Review 02/05/2023 03/01/2024 1 1 Goals (unrecognized section and content) Goals may be documented in a n alternate section FOR RECORDS PERTAINING TO PATIENTS WHO ARE [...] BE BASED ON THE PRIMARY CLINICAL RECORDS. [facility] [employer] [facility] provides no warranty or guarantee of the accuracy or completeness of information in this document.
--- NOTE | 2023-09-08 10:19 | PC.NURSE ---
Family arrives for follow up. Parents state doing well and adjusting to life as parents. Sue states is feeling well, taking Tylenol and Motrin for pain control. Rates discomfort 3 when needing to take medication. VSS and assessment WNL, Incision clear, no redness or drainage. Denies concerns or complaints. States has been using cabbage for breast care. States breasts are feeling okay, framing machine tender but past the worst of it Baby Simmons is awake and alert, tracking voices with eyes. VSS and assessment WNL. 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 Parents report that baby is sloppy while bottle feeding, has hiccups, gassy. Shown to slow pace bottle feed to allow more control of flow for . Discussed tongue tie options and will think over options. Encouraged to discuss with PCP as well. Family home without concern.
[2023-09-08 10:21] VITALS: BP 118/76; PULSE 78; TEMP 36.9; O2SAT 97
== END 2023-09-08 10:00 | disposition home or self-care (01) ==
LOC: FBCO 08:08
PROVIDERS: PCP Family Medicine; Visit Provider Midwife
DX: Z39.2 Encounter for routine postpartum follow-up (principal)

== ENCOUNTER 2023-11-04 12:44 | Outpatient (OUT) | payer BC, MEDICAID, SELFPAY ==
--- OUTSIDE RECORDS SUMMARY | 2023-11-04 13:00 | XMS_ITS | CCD ---
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 Name Role Phone Otilia Sinclair Primary Care [...] Unavailable MISC, DR HARRISON Consulting Unavailable MISC, DOCTOR Attending Unavailable MISC, DOCTOR Attending Unavailable MAHESH, DR BARRAGAN Primary Care Unavailable MISC, DR HARRISON Admitting Unavailable MISC, DR HARRISON Consulting Unavailable Chey Aragon MD Primary Care Provider [phone] Chey Aragon MD Primary Care Provider [phone] Unavailable Primary Care Provider UnavailChey Meek MD Primary Care Provider Chey Aragon MD Primary Care Provider Tima COLIN, Serene Ventura Unavailable Chey Aragon MD Unavailable [phone] ALFREDO DUONG Referring Unavailable MAHESH, CHEY G Primary Care Unavailable RUCHI CARMONA Attending Unavailable FLOROLUIZE Referring Unavailable MAHESH, CHEY G Primary Care Unavailable FLOROLUIZE Referring Unavailable MAHESH, CHEY G Primary Care Unavailable FLORO, ALFREDO Referring Unavailable MAHESH, CHEY G Primary Care Unavailable SHANTELL Duong Attending Provider Alfredo Duong Attending Unavailable Alfredo Duong Admitting Unavailable MARTHA HATFIELD Attending Unavailable Ny Cool Referring Unavailable MAHESH, CHEY G Primary Care Unavailable MAHESH, CHEY G Primary Care Unavailable MAHESH, CHEY G Primary Care Unavailable NISREEN WILSON Referring Unavailable MAHESH, CHEY G Primary Care Unavailable IOANA OTERO Attending Unavailable MAHESH, CHEY G Primary Care Unavailable VY VILLAFANA Attending Unavailable Boston Coolen Referring Unavailable MAHESH, CHEY G Primary Care Unavailable FOLLOW-UP AT [facility] Referring Un available ZHOU LEE Attending Unavailable ALFREDO DUONG Attending Unavailable RUBIA HERNANDEZ Attending Unavailable ENEDINA TAYLOR Attending Unavailable MAHESH, CHEY Referring Unavailable BO STOKES Attending Unavailable MAEHSH, CHEY Referring Unavailable FLOROALFREDO Attending Unavailable KATIE ACEVES Attending Unavailab ENEDINA Perdomo Attending Unavailable MAHESH, CHEY Referring Unavailable FLORALFREDO Emanuel Attending Unavailable ENEDINA TAYLOR Attending Unavailable KATIE ACEVES Attending Unavailab elroy FLOROALFREDO Attending Unavailable FLOROALFREDO Attending Unavailable XIOMARA ZURITA Attending Unavailable JONNATHANCKKATIE WHATLEY Referring Unavailab le FLOROALFREDO Attending Unavailable MAHESH, CHEY Referring Unavailable ENEDINA TAYLOR Attending Unavailable MAHESH, CHEY Referring Unavailable BO STOKES Attending Unavailable MAHESH, CHEY Referring Unavailable BLAZE RENTERIA Attending Unavailable MAHESH, CHEY Referring Unavailable BLAZE RENTERIA Attending Unavailable ALFREDO DUONG Referring Unavailable DALLAS HANNON Attending Unavailable FLORO, ALFREDO L Referring Unavailable FLORO, ALFREDO L Attending Unavailable FLORO, ALFREDO L Referring Unavailable BLAZE RENTERIA Attending Unavailable FLORO, ALFREDO L Referring Unavailable DALLAS HANNON Attending Unavailable FLORO, ALFREDO L Referring Unavailable FLORO, ALFREDO L Attending Unavailable FLORO, ALFREDO L Attending Unavailable FLORO, ALFREDO L Attending Unavailable FLORO, ALFREDO L Referring Unavailable FLORO, ALFREDO L Attending Unavailable FLORO, ALFREDO L Attending Unavailable KATIE ACEVES Attending Unavailab le FLORO, ALFREDO Garrett Attending Unavailable MILIND FITCH Attending Unavailable VERHOFF, TERESA L Referring Unavailable GIOVANI EDMONDS Attending Unavailable ALEXX SLATER Referring Unavailable AKINYEYEGIOVANI Attending Unavailable ALEXX SLATER Referring Unavailable [facility], [facility] Referring Unavailable VERHOFF, TERESA L Attending Unavailable [facility] PROVID[facility], [facility] Referring Unavailable VERHOFF, TERESA L Attending Unavailable [facility] PROVID[facility], [facility] Referring Unavailable VERHOFF, TERESA L Attending Unavailable [facility] PROVID[facility], [facility] Referring Unavailable SANAZ VELIA P Attending Unavailable IOANA OTERO Referring Unavailable SELF, SELF Referring Unavailable SANAZ VELIA P Attending Unavailable Allergies Allergy Classification Reported Allergen(s) Allergy Type Date of Onset Reaction(s) Facility (20 sources) cefdinir; Translations: [CEFDINIR] Drug Allergy 09-11-19 12 Rash, Anaphylaxis [facility] (3 sources) Sulfamethoxazole / Trimethoprim; Translations: [Bactrim] Drug Allergy 09-11-19 12 Anaphylaxis [facility] (1 source) cefdinir Drug Allergy 09-10-19 16 [facility] (1 source) inFLIXimab Drug Allergy 09-10-19 16 [facility] (1 source) Pentamidine Drug Allergy 07-08-19 21 [facility] (1 source) Vancomycin Drug Allergy 09-10-19 16 [facility] (17 sources) inFLIXimab; Translations: [INFLIXIMAB] Drug Allergy 01-31-20 15 Other (See Comments) [facility] (17 sources) Pentamidine; Translations: [PENTAMIDINE] Drug Allergy 12-31-19 [address] [facility] Work Phone: (20 sources) Sulfonamides (Antibiotic); Translations: [SULFA (SULFONAMIDE ANTIBIOTICS)] Propensity to adverse reactions to drug 05-24-19 [address] [facility] (20 sources) Vancomycin; Translations: [VANCOMYCIN ANALOGUES] Drug Allergy 08-09-19 15 Magdalene Syndrome [facility] (7 sources) cefdinir Drug Allergy 09-11-19 12 Anaphylaxis, Rash [facility] (7 sources) inFLIXimab Drug Allergy 01-31-20 15 [facility] (7 sources) Pentamidine Drug Allergy 12-31-19 Headache [facility] (12 sources) Sulfamethoxazole / Trimethoprim; Translations: [SULFAMETHOXAZOLE-T RIMETHOPRIM] Drug Allergy 09-11-19 12 Anaphylaxis, Rash [facility] Medications Current Medications Medication Drug Class(es) Dates [...] once daily. 0 Active Multiple Vitamins-Minerals (THERAPEUTIC MULTIVITAMIN-DRILLER'S ASSISTANT ALS) tablet (2 sources) take 1 tablet by mouth once daily Multiple Vitamins-Minerals (THERAPEUTIC MULTIVITAMIN-DRILLER'S ASSISTANT ALS) tablet Take 1 tablet by mouth [...] ml riTUXimab 10 mg/ml injection (7 sources) [id number]-[id number] Cytolytic Antibody End: 08-06-2023 riTUXimab 100 MG/10ML [...] Resolved: 2 07-20-2014 Chronic Residual codes; unclassified (1 source) Gestation period, 11 weeks; Translations: [11 weeks gestation of ] 02-25-2023 Episodic Residual codes; unclassified (1 source) Gestation period, 19 weeks; Translations: [19 weeks gestation of ] 04-24-2023 Episodic Residual codes; unclassified (1 source) 19 weeks gestation of ; Translations: [19 weeks gestation of ] Onset: 4 Episodic Unclassified (1 source) HX Colitis Onset: 4 Unclassified (1 source) Low Blood Count Onset: 3 Unclassified (1 source) Sinus Problem Onset: 3 Viral infection (4 sources) COVID-19; Translations: [COVID-19] [...] Long-term current use of systemic steroid; Translations: [residential (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 of systemic steroids] Onset: 6 Resolved: 9 08-13-2018 Episodic Other aftercare (20 sources) Drug therapy finding; Translations: [On rituximab therapy] Onset: 8 Resolved: 1 04-17-2020 Episodic Other aftercare (12 sources) 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; Translations: [Adalimumab [...] Onset: 2 11-24-2021 Episodic Residual codes; unclassified (3 sources) First trimester ; Translations: [Less than 8 weeks gestation of ] Onset: 3 02-04-2023 Episodic Residual codes; unclassified (1 source) Less than 8 weeks gestation of ; Translations: [Less than 8 weeks gestation of ] Onset: 3 Episodic Results Test Name Value Interpretation Reference Range Facility [facility] 09-03-2023 L Specimen: [id number] Received: 09/03/23 Status: RADHA Bradshaw Num: [id number] Spec Type: Surgical Subm Dr: Jayme Hi Tissues: A Placenta - 3rd Trimester (Greater than 28 weeks) (PLACENTA) Procedures: HE/3, Gross/Micro L5 Age/ Patient Sex Location Account Attending Physician [place] / [facility] [id number] Alfredo Duong APRN SPEC NUM: [id number] RECD: 09/03/23 STATUS: [facility] NUM: [id number] SHAY: 09/03/[address]: Jayme Hi ENTERED: 09/03/[address]: Jaylon,Lab SPEC TYPE: Surgical DEPT: FOREIGN HUSAIN ORDERED: HE/3, Gross/Micro L5 ORDERED: HE/3, Gross/Micro L5 Pathological Diagnosis Placental removal, section delivery: -Mature third trimester placenta with three-vessel cord, appropriate for gestational age (562.3 gm) -No evidence of acute chorioamnionitis, funisitis, or villitis -Incidental patchy mildly increased calcifications are apparent -No other significant histopathological findings except minor effect of meconium staining at the membrane Clinical Information Term , Crohn's disease. , P: 0. GA 38W 3D, risk/reason: Mother has anemia and autoimmune disorders. . Gross Description Received in formalin is a esposito placental disc with attached, and attached umbilical cord. The 26.8 x 1.7 cm, three-vessel, ugalde umbilical cord inserts eccentrically into the chorionic plate, 3.5 cm from the placental disc margin. The cord has normal spiraling with no knots or lesions. The marginally inserted, complete membranes are ugalde-pink, slippery and translucent, with the point of rupture that cannot be determined . Intramembranous blood vessels are absent . The chorionic plate is noel-blue with patent vessels that span out magistrally over the surface. The maternal surface has intact, lobulated cotyledons. No loose or adherent -------- Specimen: [id number] Received: 09/03/23 Status: RADHA Bradshaw Num: [id number] Spec Type: Surgical Subm Dr: aJyme Hi Tissues: A Placenta - 3rd Trimester (Greater than 28 weeks) (PLACENTA) Procedures: HE/3, Gross/Micro L5 -------- Patient: [place] [id number] (Continued) -------- Specimen: [id number] Received: 09/03/23 (Continued) Gross Description (Continued) Signed (signature on file) Rachel Saldivar MD 09/08/23 1715 -------- Specimen: [id number] Received: 09/03/23 Status: RADHA Bradshaw Num: [id number] Spec Type: Surgical Subm Dr: Jayme Hi Tissues: A Placenta - 3rd Trimester (Greater than 28 weeks) (PLACENTA) Procedures: DANY, Gross/Micro L5 -------- Patient: [place] [id number] (Continued) -------- Specimen: [id number] Received: 09/03/23 (Continued) Gross Description (Continued) blood clot is attached to the placental disc. The parenchyma is pink-red and spongiform. The 17.4 x 15.5 x 3.3 cm placental disc, devoid of membranes and cord, has a trimmed weight of 562.3 grams. Summary of sections: A1: umbilical cord at end and membrane roll including possible site of rupture A2: umbilical cord at placental end and parenchyma adjacent to cord insertion site A3: random mid-zonal section TW CPT Codes 98925 -------- -------- Specimen: [id number] Received: 09/03/23 Status: RADHA Bradshaw Num: [id number] Spec Type: Surgical Subm Dr: Jayme Hi Tissues: A Placenta - 3rd Trimester (Greater than 28 weeks) (PLACENTA) Procedures: HE/3, Gross/Micro L5 -------- Patient: [place] [id number] (Continued) -------- Signed (signature on file) Tomas-Momo Saldivar MD 09/08/23 1715 Normal [facility] US OB FOLLOW UP TRANSABDOMIN AL APPROACHon [...] 024 CRP [Mass/Vol] 5.36 mg/L Normal <10.00 [facility] Comment on above: Performed By: #### C RP, CMPN #### [facility] (DEFAULT) [address] [address] CBC,PLATELETSon 08-06-2023 Hematocrit (Bld) [Volume fraction] 29.1 % Low 34.9-44.3 [facility] Comment on above: Performed By: #### H EMOGC #### [facility] (DEFAULT) [address] [address] Hemoglobin (Bld) [Mass/Vol] 9.3 g/dL Low 11.4-15.2 [facility] Comment on above: Performed By: #### H EMOGC #### [facility] (DEFAULT) [address] [address] MCV (RBC) [Entitic vol] 85.3 fL Normal 79.6-97.7 [facility] Comment on above: Performed By: #### H EMOGC #### [facility] (DEFAULT) [address] [address] Mean Cell Hgb 27.3 pg Normal 25.9-33.9 [facility] Comment on above: Performed By: #### H EMOGC #### [facility] (DEFAULT) [address] [address] Mean Cell Hgb Conc 32.0 g/dL Normal 31.4-35.9 [facility] Comment on above: Performed By: #### H EMOGC #### [facility] (DEFAULT) [address] [address] Platelet mean volume (Bld) [Entitic vol] 10.2 fL Normal 8.5-12.2 [facility] Comment on above: Performed By: #### H EMOGC #### [facility] (DEFAULT) [address] [address] Platelets (Bld) [#/Vol] 206 10*3/uL Normal 150-393 [facility] Comment on above: Performed By: #### H EMOGC #### [facility] (DEFAULT) [address] [place] [address] RBC (Bld) [#/Vol] 3.41 10*6/uL Low 3.91-5.04 [facility] Comment on above: Performed By: #### H EMOGC #### [facility] (DEFAULT) [address] [place] [address] RBC Distribution 13.2 % Normal 10.8-14.9 [facility] Comment on above: Performed By: #### H EMOGC #### [facility] (DEFAULT) [address] [place] [address] WBC (Bld) [#/Vol] 11.95 10*3/uL High 3.99-11.19 [facility] Comment on above: Performed By: #### H EMOGC #### [facility] (DEFAULT) [address] [place] [address] COMPREHENSIVE METABOLIC PANE Jeremias 08-06-2023 Albumin [Mass/Vol] 3.2 g/dL Low 3.5-5.0 [facility] Comment on above: Performed By: #### C DANIEL, CMPN #### [facility] (DEFAULT) [address] [place] [address] ALP [Catalytic activity/Vol] 91 U/L Normal 32-126 [facility] Comment on above: Performed By: #### C RP, CMPN #### [facility] (DEFAULT) [address] [place] [address] ALT [Catalytic activity/Vol] 6 U/L Low 9-48 [facility] Comment on above: Performed By: #### C RP, CMPN #### [facility] (DEFAULT) [address] [address] Anion gap [Moles/Vol] 12 mmol/L Normal 7-17 [facility] Comment on above: Performed By: #### C RP, CMPN #### [facility] (DEFAULT) [address] [place] [address] AST [Catalytic activity/Vol] 11 U/L Normal 10-39 [facility] Comment on above: Performed By: #### C RP, CMPN #### [facility] (DEFAULT) [address] [place] [address] Bilirubin [Mass/Vol] 0.4 mg/dL Normal <1.5 [facility] Comment on above: Performed By: #### C RP, CMPN #### [facility] (DEFAULT) [address] [place] [address] Calcium [Mass/Vol] 8.6 mg/dL Normal 8.6-10.5 [facility] Comment on above: Performed By: #### C RP, CMPN #### [facility] (DEFAULT) [address] [place] [address] Chloride [Moles/Vol] 107 mmol/L Normal 98-108 [facility] Comment on above: Performed By: #### C RP, CMPN #### [facility] (DEFAULT) [address] [place] [address] CO2 [Moles/Vol] 23 mmol/L Normal 21-31 [facility] Comment on above: Performed By: #### C RP, CMPN #### [facility] (DEFAULT) [address] [place] [address] Creatinine [Mass/Vol] 0.45 mg/dL Low 0.50-1.20 [facility] Comment on above: Performed By: #### C RP, CMPN #### [facility] (DEFAULT) [address] [place] [address] eGFR, CKD-EPI, Female > Normal >=60 [facility] Comment on above: Result Comment: Repo rted eGFR is based on the CKD-EPI 2020 equation using creatinine, age, and sex. Performed By: #### C RP, CMPN #### [facility] (DEFAULT) [address] [place] [address] Glucose [Mass/Vol] 78 mg/dL Normal 70-99 [facility] Comment on above: Performed By: #### C RP, CMPN #### [facility] (DEFAULT) [address] [place] [address] Osmolality [Osmolality] 284 mosm/kg Normal 278-305 [facility] Comment on above: Performed By: #### C RP, CMPN #### [facility] (DEFAULT) [address] [place] [address] Potassium [Moles/Vol] 3.8 mmol/L Normal 3.5-5.0 [facility] Comment on above: Performed By: #### C RP, CMPN #### [facility] (DEFAULT) [address] [place] [address] Protein [Mass/Vol] 5.4 g/dL Low 6.4-8.3 [facility] Comment on above: Performed By: #### C RP, CMPN #### [facility] (DEFAULT) [address] [place] [address] Sodium [Moles/Vol] 138 mmol/L Normal 135-145 [facility] Comment on above: Performed By: #### C RP, CMPN #### [facility] (DEFAULT) [address] [place] [address] Urea nitrogen [Mass/Vol] 4 mg/dL Low 7-25 [facility] Comment on above: Performed By: #### C RP, CMPN #### [facility] (DEFAULT) [address] [place] [address] Urea nitrogen/Creatinine [Mass ratio] 9 mg/mg Normal [facility] Comment on above: Performed By: #### C RP, CMPN #### [facility] (DEFAULT) [address] [place] [address] HEP A AB, TOTAL (IGG+IGM)on 08-06-2023 Hep A Ab, (IgG+IgM) Negative Normal Negative [facility] Comment on above: Performed By: #### H AABG #### [facility] (DEFAULT) [address] [place] [address] POCT URINE DIPSTICK AUTOMATE DOrdered By: Xochitl Murphy on 08-06-2023 Amorphous sediment LM Ql (Urine sed) [facility] Appearance (U) slightly cloudy [facility] Bacteria LM Ql (Urine sed) [facility] Bilirubin Ql (U) Negative [facility] Casts LM.LPF (Urine sed) [#/Area] [facility] Color (U) yellow [facility] Crystals LM Nom (Urine sed) [facility] Epithelial cells.squamous LM.HPF (Urine sed) [#/Area] [facility] Flow cytometry specialist review Trevin (Unsp spec) [Interp] [facility] Glucose Auto test strip (U) [Mass/Vol] Negative mg/dL [facility] Interpretation and review of laboratory results Abnormal [facility] Ketones [Mass/Vol] Negative mg/dL [facility] Leukocyte esterase Qn (U) [facility] Leukocyte esterase Test strip Ql (U) Negative [facility] Microscopic observation Gram stain Nom (Bronch spec) [facility] Nitrite Ql (U) Negative [facility] pH (U) 7.5 [pH] [facility]normal 5 - 7 [facility] Protein Ql (U) Negative mg/dL [facility] RBC LM.HPF (Urine sed) [#/Area] [facility] RBC Ql (U) Negative [facility] Specific gravity (U) [Rel density] 1.015 1.001 - 1.035 [facility] Transitional cells LM Ql (Urine sed) [facility] Urobilinogen Qn (U) 0.2 [facility] WBC LM.HPF (Urine sed) [#/Area] [facility] US OB FOLLOW UP TRANSABDOMIN AL [...] perforation and dizziness Alternatives discussed: No treatment [facility] protocol: Patient identity confirmed: Verbally with patient Procedure details: Location: L ear and R ear Procedure type: irrigation Procedure outcomes: cerumen removed Post-procedure details: Inspection: TM intact Hearing quality: Normal Procedure completion: Tolerated well, no immediate complications [facility] Chlamydia/GC by PCR Roldan Sw abon 03-04-2023 Chlamydia Dna(Pcr) Not detected [facility] Gonorrhoeae Dna(Pcr) Not detected Pr [facility] C REACTIVE PROTEINon 023 CRP High sensitivity method [Mass/Vol] 4.81 mg/L NINF - 10.00 mg/L [facility] Interpretation and review of laboratory results Normal [facility] CRP [Mass/Vol] 4.81 mg/L Normal <10.00 [facility] Comment on above: Performed By: #### C DANIEL, CHM6, HFP #### [facility] (DEFAULT) [address] [place] [address] CHEM 6 (LYTES, BUN CREA)on 04-27-2022 Anion gap [Moles/Vol] 12 mmol/L 7 - 17 mmol/L [facility] Chloride [Moles/Vol] 105 mmol/L 98 - 10 8 mmol/L [facility] CO2 [Moles/Vol] 25 mmol/L 21 - 31 mmol/L [facility] Creatinine [Mass/Vol] 0.48 mg/dL Low 0.50 - 1.20 mg/dL [facility] eGFR, CKD-EPI, Female - PINF [facility] Comment on above: Reported eGFR is bas ed on the CKD-EPI 2020 equation using creatinine, age, and sex. Potassium [Moles/Vol] 3.9 mmol/L 3.5 - 5.0 mmol/L [facility] Sodium [Moles/Vol] 138 mmol/L 135 - 145 mmol/L [facility] Urea nitrogen [Mass/Vol] 7 mg/dL 7 - 25 mg/dL [facility] Urea nitrogen/Creatinine [Mass ratio] 15 mg/mg [facility] Anion gap [Moles/Vol] 12 mmol/L Normal 7-17 [facility] Comment on above: Performed By: #### C DANIEL, CHM6, HFP #### [facility] (DEFAULT) [address] [place] [address] Chloride [Moles/Vol] 105 mmol/L Normal 98-108 [facility] Comment on above: Performed By: #### C RP, CHM6, HFP #### [facility] (DEFAULT) [address] [place] [address] CO2 [Moles/Vol] 25 mmol/L Normal 21-31 [facility] Comment on above: Performed By: #### C RP, CHM6, HFP #### [facility] (DEFAULT) [address] [place] [address] Creatinine [Mass/Vol] 0.48 mg/dL Low 0.50-1.20 [facility] Comment on above: Performed By: #### C RP, CHM6, HFP #### [facility] (DEFAULT) [address] [place] [address] eGFR, CKD-EPI, Female > Normal >=60 [facility] Comment on above: Result Comment: Repo rted eGFR is based on the CKD-EPI 2020 equation using creatinine, age, and sex. Performed By: #### C RP, CHM6, HFP #### [facility] (DEFAULT) [address] [place] [address] Potassium [Moles/Vol] 3.9 mmol/L Normal 3.5-5.0 [facility] Comment on above: Performed By: #### C RP, CHM6, HFP #### [facility] (DEFAULT) [address] [place] [address] Sodium [Moles/Vol] 138 mmol/L Normal 135-145 [facility] Comment on above: Performed By: #### C RP, CHM6, HFP #### [facility] (DEFAULT) [address] [place] [address] Urea nitrogen [Mass/Vol] 7 mg/dL Normal 7-25 [facility] Comment on above: Performed By: #### C RP, CHM6, HFP #### [facility] (DEFAULT) [address] [place] [address] Urea nitrogen/Creatinine [Mass ratio] 15 mg/mg Normal [facility] Comment on above: Performed By: #### C RP, CHM6, HFP #### [facility] (DEFAULT) [address] [place] [address] Chronic hepatitis differenti ation between hepatitis B and C virus panelOrdered By: Maty Cook on 02-25-2023 HBV core IgG+IgM Ql (S) Negative Negative [facility] HBV surface Ab IA Ql (S) Negative Negative [facility] HBV surface Ag Ql (S) Negative Negative [facility] HCV Ab Ql (S) Negative Negative [facility] Interpretation and review of laboratory results Normal [facility] FOLATE, SERUMOrdered By: Alissa Chamorro on 02-25-2023 Folate [Mass/Vol] 38.76 ng/mL 5.38 - PIN F ng/mL [facility] Interpretation and review of laboratory results Normal [facility] FOLATE, SERUMon 02-25-2023 Folate 38.76 ng/mL Normal >5.38 [facility] Comment on above: Performed By: #### C RP, CHM6, HFP #### [facility] (DEFAULT) [address] [place] [address] HEPATIC FUNCTION PANELon Albumin [Mass/Vol] 4.0 g/dL 3.5 - 5.0 g/dL [facility] ALP [Catalytic activity/Vol] 42 U/L 32 - 126 U/L [facility] ALT [Catalytic activity/Vol] 5 U/L Low 9 - 48 U/L [facility] AST [Catalytic activity/Vol] 10 U/L 10 - 39 U/L [facility] Bilirubin [Mass/Vol] 0.5 mg/dL NINF - 1.5 mg/dL [facility] Bilirubin.direct [Mass/Vol] 0.1 mg/dL NINF - 0.3 mg/dL [facility] Protein [Mass/Vol] 6.0 g/dL Low 6.4 - 8.3 g/dL [facility] Albumin [Mass/Vol] 4.0 g/dL Normal 3.5-5.0 [facility] Comment on above: Performed By: #### C RP, CHM6, HFP #### [facility] (DEFAULT) [address] [place] [address] ALP [Catalytic activity/Vol] 42 U/L Normal 32-126 [facility] Comment on above: Performed By: #### C RP, CHM6, HFP #### [facility] (DEFAULT) [address] [place] [address] ALT [Catalytic activity/Vol] 5 U/L Low 9-48 [facility] Comment on above: Performed By: #### C RP, CHM6, HFP #### [facility] (DEFAULT) [address] [place] [address] AST [Catalytic activity/Vol] 10 U/L Normal 10-39 [facility] Comment on above: Performed By: #### C RP, CHM6, HFP #### [facility] (DEFAULT) [address] [place] [address] Bilirubin [Mass/Vol] 0.5 mg/dL Normal <1.5 [facility] Comment on above: Performed By: #### C RP, CHM6, HFP #### [facility] (DEFAULT) [address] [place] [address] Bilirubin.indirect [Mass/Vol] 0.1 mg/dL Normal <0.3 [facility] Comment on above: Performed By: #### C RP, CHM6, HFP #### [facility] (DEFAULT) [address] [place] [address] Protein [Mass/Vol] 6.0 g/dL Low 6.4-8.3 [facility] Comment on above: Performed By: #### C RP, CHM6, HFP #### [facility] (DEFAULT) [address] [place] [address] HEPATITIS BATTERY, CHRONICon 02-25-2023 Hep B Core Ab,Total (IgG+IgM) Negative Normal Negative [facility] Comment on above: Performed By: #### C RP, CHM6, HFP #### [facility] (DEFAULT) [address] [address] Hep B Surface Ab Negative Normal Negative [facility] Comment on above: Performed By: #### C RP, CHM6, HFP #### [facility] (DEFAULT) [address] [address] Hepatitis B Surface Ag Negative Normal Negative [facility] Comment on above: Performed By: #### C RP, CHM6, HFP #### [facility] (DEFAULT) [address] [address] Hepatitis C Antibody Negative Normal Negative [facility] Comment on above: Performed By: #### C RP, CHM6, HFP #### [facility] (DEFAULT) [address] [address] HIV 1&2 AB/AG Screen (P24 AG )on 02-25-2023 HIV 1&2 AB/AG Non-Reactive [facility] Hepatitis B surface antigeno n 02-25-2023 Hepatitis B Surface Antigen Non-Reactive [facility] M TUBERCULOSIS BY Carola AMOS 02-25-2023 M. TB Mitogen-Nil 9.94 IU/mL Normal [facility] Comment on above: Order Comment: The M . Tuberculosis antigen levels cannot be correlated to stage or degree of infection, response to therapy or likelihood for progression to active disease. Results from QuantiFERON TB Gold Plus must be used in conjunction with individual epidemiological history, current medical status, and results of other diagnostic evaluation. Performed By: #### Q FTB #### [facility] (DEFAULT) [address] [address] M. TB Nil 0.06 IU/mL Normal [facility] Comment on above: Order Comment: The M . Tuberculosis antigen levels cannot be correlated to stage or degree of infection, response to therapy or likelihood for progression to active disease. Results from QuantiFERON TB Gold Plus must be used in conjunction with individual epidemiological history, current medical status, and results of other diagnostic evaluation. Performed By: #### Q FTB #### [facility] (DEFAULT) [address] [address] M. TB TB1-Nil 0.01 IU/mL Normal [facility] Comment on above: Order Comment: The M . Tuberculosis antigen levels cannot be correlated to stage or degree of infection, response to therapy or likelihood for progression to active disease. Results from QuantiFERON TB Gold Plus must be used in conjunction with individual epidemiological history, current medical status, and results of other diagnostic evaluation. Performed By: #### Q FTB #### [facility] (DEFAULT) [address] [address] M. TB TB2-Nil 0.02 IU/mL Normal [facility] Comment on above: Order Comment: The M . Tuberculosis antigen levels cannot be correlated to stage or degree of infection, response to therapy or likelihood for progression to active disease. Results from QuantiFERON TB Gold Plus must be used in conjunction with individual epidemiological history, current medical status, and results of other diagnostic evaluation. Performed By: #### Q FTB #### [facility] (DEFAULT) [address] [place] [address] M. Tuberculosis by Quantiferon in tube Negative Normal Negative [facility] Comment on above: Order Comment: The M . Tuberculosis antigen levels cannot be correlated to stage or degree of infection, response to therapy or likelihood for progression to active disease. Results from QuantiFERON TB Gold Plus must be used in conjunction with individual epidemiological history, current medical status, and results of other diagnostic evaluation. Performed By: #### Q FTB #### [facility] (DEFAULT) [address] [place] [address] No Panel Informationon 02-25 Interpretation and review of laboratory results Abnormal [facility] Syphilis Total(Unknown Syphi lis Status)on 02-25-2023 Syphilis Non-Reactive [facility] [employer] [facility] THIOPURINE METHYL-TRANSFERAS Matt 02-25-2023 6-METHYLMERCAPTOPURIN E 3.85 nmol/mL/h Normal 3.00-6.66 [facility] Comment on above: Performed By: #### C RP, CHM6, HFP #### [facility] (DEFAULT) [address] [place] [address], [place] [address] 6-Methylmercaptopurin e riboside 5.67 nmol/mL/h Normal 5.04-9.57 [facility] Comment on above: Performed By: #### C RP, CHM6, HFP #### [facility] (DEFAULT) [address] [place] [address] 6-Methylthioguanine riboside 2.60 nmol/mL/h Low 2.70-5.84 [facility] Comment on above: Performed By: #### C RP, CHM6, HFP #### [facility] (DEFAULT) [address] [address] REVIEWED BY Katie Rubin, PhD Normal [facility] Comment on above: Result Comment: Test Performed by: [place] [address] [employer] Hand: Mynor Browne M.D. Ph.D.; CLIA# [id number] Performed By: #### C RP, CHM6, HFP #### [facility] (DEFAULT) [address] [address] Thiopurine Methyltransferase SEE COMMENTS Normal [facility] Comment on above: Result Comment: *Nor mal* In this whole blood sample, the profile of activity of thiopurine methyltransferase using three different substrates was normal or essentially normal. ADDITIONAL INFORMATION Liquid Chromatography-Tandem Mass Spectrometry (LC-MS/MS) This test was developed and its performance characteristics determined by [facility] in a manner consistent with CLIA requirements. This test has not been cleared or approved by the U.S. Food and Drug Administration. Performed By: #### C RP, CHM6, HFP #### [facility] (DEFAULT) [address] [place] [address] Type and screenon 02-25-2023 Abo/Rh(D) Positive [employer] VITAMIN B12on 02-25-2023 Cobalamin (Vitamin B12) [Mass/Vol] 421 pg/mL 211 - 911 pg/mL [facility] Comment on above: Testing of Methylmal onic Acid and Intrinsic Factor Blocking Antibody are recommended if clinical suspicion for pernicious anemia due to B12 deficiency is high for patients with intermediate B12 levels (211 to 400 pg/mL) to rule out spurious heterophile antibodies. Interpretation and review of laboratory results Normal [facility] Cobalamin (Vitamin B12) [Mass/Vol] 421 pg/mL Normal 211-911 [facility] Comment on above: Result Comment: Test ing of Methylmalonic Acid and Intrinsic Factor Blocking Antibody are recommended if clinical suspicion for pernicious anemia due to B12 deficiency is high for patients with intermediate B12 levels (211 to 400 pg/mL) to rule out spurious heterophile antibodies. Performed By: #### F OLSB, B12B #### [facility] (DEFAULT) [address] [address] ZINC, SERUMon 02-25-2023 ZINC, SERUM 62 mcg/dL Normal 60-106 [facility] Comment on above: Result Comment: ADDITIONAL INFORMATION This test was developed and its performance characteristics determined by [facility] in a manner consistent with CLIA requirements. This test has not been cleared or approved by the U.S. Food and Drug Administration. Test Performed by: [facility] [place] [address] [place] [address] [employer] Hand: Mynor Browne M.D. Ph.D.; CLIA# [id number] Performed By: #### Y ZINC #### [facility] (DEFAULT) [address] [address] XR Chest 2 Views*on 04-03-20 XR Chest 2 Views* FINDINGS: No acute cardiac or pulmonary disease is identified. No worrisome mass lesions or infiltrates are seen. No pulmonary edema or pneumothorax is present. Cardiac silhouette size is normal. Skeletal structures are normal. IMPRESSION: No acute cardiac or pulmonary disease Report reported and signed by Herbie Pace on 04/03/2022 1551 Normal [facility] XR Chest 2 Views*on 03-10-20 XR Chest 2 Views* FINDINGS: No acute cardiac or pulmonary disease is identified. No worrisome mass lesions or infiltrates are seen. No pulmonary edema or pneumothorax is present. Cardiac silhouette size is normal. Skeletal structures are normal. IMPRESSION: No focal infiltrates Report reported and signed by Herbie Pace on 03/10/2022 1220 Normal [facility] XR Chest 2 Views*on 12-07-19 XR Chest 2 Views* HISTORY: Acute Cough FINDINGS: Comparison made with prior examiantion of November 19, 2021. No new infiltrates, consolidation or pneumothorax. Mild peribronchial thickening accentuated by slightly greater reduction in lung volumes on the current examination. IMPRESSION: 1. No new infiltrates or significant post-inflammatory sequela. Report reported and signed by Herbie Pace on 12/06/2021 1352 Normal [facility] XR Chest 2 Views*on 11-20-19 XR Chest 2 Views* FINDINGS: No acute cardiac or pulmonary disease is identified. No worrisome mass lesions or infiltrates are seen. No pulmonary edema or pneumothorax is present. Cardiac silhouette size is normal. Skeletal structures are normal. IMPRESSION: No acute cardiac or pulmonary disease Report reported and signed by Herbie Pace on 11/19/2021 1128 Normal [facility] Complete Blood Count with Au to Diffon 07-30-2021 Basophils (Bld) [#/Vol] 0.06 10*3/uL Normal 0.00-0.20 [facility] Comment on above: Performed By: #### C BCAD #### [facility] [address] [place], [place] [id number] Basophils/100 WBC (Bld) 0.5 % Normal [facility] Comment on above: Performed By: #### C BCAD #### [facility] [address] [place], [place] [id number] Eosinophils (Bld) [#/Vol] 0.35 10*3/uL Normal 0.02-0.50 [facility] Comment on above: Performed By: #### C BCAD #### [facility] [address] [place], [place] [id number] Eosinophils/100 WBC (Bld) 2.8 % Normal [facility] Comment on above: Performed By: #### C BCAD #### [facility] [address] [place], [place] [id number] Erythrocyte distribution width (RBC) [Ratio] 12.7 % Normal 11.0-15.0 [facility] Comment on above: Performed By: #### C BCAD #### [facility] [address] [place], [place] [id number] Hematocrit (Bld) [Volume fraction] 37.5 % Normal 35.0-47.0 [facility] Comment on above: Performed By: #### C BCAD #### [facility] [address] [place], [place] [id number] Hemoglobin (Bld) [Mass/Vol] 12.2 g/dL Normal 11.6-15.5 [facility] Comment on above: Performed By: #### C BCAD #### [facility] [address] [place], [place] [id number] Lymphocytes (Bld) [#/Vol] 2.5 10*3/uL Normal 0.9-3.9 [facility] Comment on above: Performed By: #### C BCAD #### [facility] [address] [place], [place] [id number] Lymphocytes/100 WBC (Bld) 19.8 % Normal [facility] Comment on above: Performed By: #### C BCAD #### [facility] [address] [place], [place] [id number] MCH (RBC) [Entitic mass] 29.7 pg Normal 27.0-33.0 [facility] Comment on above: Performed By: #### C BCAD #### [facility] [address] [place], [place] [id number] MCHC (RBC) [Mass/Vol] 32.5 g/dL Normal 32.0-36.0 [facility] Comment on above: Performed By: #### C BCAD #### [facility] [address] [place], [place] [id number] MCV (RBC) [Entitic vol] 91 fL Normal 80-100 [facility] Comment on above: Performed By: #### C BCAD #### [facility] [address] [place], [place] [id number] Monocytes (Bld) [#/Vol] 0.9 10*3/uL Normal 0.2-0.9 [facility] Comment on above: Performed By: #### C BCAD #### [facility] [address] [place], [place] [id number] Monocytes/100 WBC (Bld) 7.2 % Normal [facility] Comment on above: Performed By: #### C BCAD #### [facility] [address] [place], [place] [id number] Neutrophils (Bld) [#/Vol] 8.8 10*3/uL High 1.5-7.8 [facility] Comment on above: Performed By: #### C BCAD #### [facility] [address] [place], [place] [id number] Neutrophils/100 WBC (Bld) 69.3 % Normal [facility] Comment on above: Performed By: #### C BCAD #### [facility] [address] [place], [place] [id number] Platelet mean volume (Bld) [Entitic vol] 10.20 fL Normal 7.50-12.50 [facility] Comment on above: Performed By: #### C BCAD #### [facility] [address] [place], [place] [id number] Platelets (Bld) [#/Vol] 258 10*3/uL Normal 140-400 [facility] Comment on above: Performed By: #### C BCAD #### [facility] [address] [place], [place] [id number] RBC (Bld) [#/Vol] 4.11 10*6/uL Normal 3.90-5.20 [facility] Comment on above: Performed By: #### C BCAD #### [facility] [address] [place], [place] [id number] RDW-SD 41.4 fL Normal 37.0-50.0 [facility] Comment on above: Performed By: #### C BCAD #### [facility] [address] [place], [place] [id number] WBC (Bld) [#/Vol] 12.7 10*3/uL High 3.8-11.0 [facility] Comment on above: Performed By: #### C BCAD #### [facility] [address] [place], [place] [id number] IgG Subclasseson 07-12-2021 IgG subclass 1 300 mg/dL Normal 240-1118 [facility] Comment on above: Result Comment: (NOT E) REFERENCE INTERVAL: Immunoglobulin G Subclass 1 The total IgG (mg/dL) can be derived from the sum of the subclass IgG1, IgG2, IgG3, and IgG4 values. However, a confirmatory and more precise total IgG is available by the turbidimetric method of quantitation for total IgG. Refer to test Immunoglobulin G, Serum ([id number]). Access complete set of age- and/or gender-specific reference intervals for this test in the [facility] ([employer]). Performed By: #### A IGGSB, APNAB1 #### [facility] [address] [place] [address] [employer] Hand: Cody Dye MD #### IFX, FLLS, IMMS, CDP, THYGLA #### [facility] [employer] [facility] [place], [place] [phone] [employer] Hand: Jone Eller MD IgG subclass 2 193 mg/dL Normal 124-549 [facility] Comment on above: Result Comment: (NOT E) REFERENCE INTERVAL: Immunoglobulin G Subclass 2 Access complete set of age- and/or gender-specific reference intervals for this test in the [facility] ([employer]). Performed By: #### A IGGSB, APNAB1 #### [facility] [address] [place] [address] [employer] Hand: Cody Dye MD #### IFX, FLLS, IMMS, CDP, THYGLA #### [facility] [address] [place], [place] [id number] [employer] Hand: Jone Eller MD IgG subclass 3 61 mg/dL Normal 21-134 [facility] Comment on above: Result Comment: (NOT E) REFERENCE INTERVAL: Immunoglobulin G Subclass 3 Access complete set of age- and/or gender-specific reference intervals for this test in the [facility] ([employer]). Performed By: #### A IGGSB, APNAB1 #### [facility] [address] [place] [address] [employer] Hand: Cody Dye MD #### IFX, FLLS, IMMS, CDP, THYGLA #### [address] [phone] [employer] Hand: Jone Eller MD IgG subclass 4 3 mg/dL Normal 1-123 [facility] Comment on above: Result Comment: (NOT E) REFERENCE INTERVAL: Immunoglobulin G Subclass 4 Access complete set of age- and/or gender-specific reference intervals for this test in the [facility] ([employer]). Performed by [facility], [address] [place] [id number] www.[email or web address], Ruthie Augustin MD, Lab. Director Performed By: #### A IGGSB, APNAB1 #### [facility] [address] [place] [address] [employer] Hand: Cody Dye MD #### IFX, FLLS, IMMS, CDP, THYGLA #### [address] [phone] [employer] Hand: Jone Eller MD Pneumococcal Ab, IgGon 07-12 S.pneum Interp See Note Normal [facility] Comment on above: Result Comment: (NOT E) [...] 1. Goldie GALAVIZ, Kedar JW, Vinny X, Prince DOSS, Alber CARDENAS. Multilaboratory assessment of threshold versus fold-change algorithms for minimizing analytical variability in multiplexed pneumococcal IgG measurements. Clin Vaccine Immunol. 2014;21(7):982-8. 2. Goldie GALAVIZ, Alber CARDENAS. Use and Clinical Interpretation of Pneumococcal Antibody Measurements in the Evaluation of Humoral Immune Function. Clin Vaccine Immunol. 2015;22(2):148-152. This test was developed and its performance characteristics determined by [facility]. It has not been cleared or approved by the [place] Food and Drug Administration. This test was performed in a CLIA certified laboratory and is intended for clinical purposes. Performed By: [facility] [address] [place] [address] [employer]: Ruthie Augustin MD Performed By: #### A IGGSB, APNAB1 #### [facility] [address] [place] [address] [employer] Hand: Cody Dye MD #### IFX, FLLS, IMMS, CDP, THYGLA #### [place] [address] [employer] Hand: Jone Eller MD S.pneum type 1,IgG 0.11 ug/mL Normal [facility] Comment on above: Performed By: #### A IGGSB, APNAB1 #### [facility] [address] [place] [address] [employer] Hand: Cody Dye MD #### IFX, FLLS, IMMS, CDP, THYGLA #### [facility] [address] [place] [phone] [employer] Hand: Jone Eller MD S.pneum type 12F,IgG 0.14 ug/mL Normal [facility] Comment on above: Performed By: #### A IGGSB, APNAB1 #### [facility] [address] [place] [address] [employer] Hand: Cody Dye MD #### IFX, FLLS, IMMS, CDP, THYGLA #### [address] [phone] [employer] Hand: Jone Eller MD S.pneum type 14,IgG 0.19 ug/mL Normal [facility] Comment on above: Performed By: #### A IGGSB, APNAB1 #### [facility] [address] [place], [place] [phone] [employer] Hand: Cody Dye MD #### IFX, FLLS, IMMS, CDP, THYGLA #### [facility] [address] [place] [phone] [employer] Hand: Jone Eller MD S.pneum type 18C,IgG 6.82 ug/mL Normal [facility] Comment on above: Performed By: #### A IGGSB, APNAB1 #### [facility] [address] [place], [place] [phone] [employer] Hand: Cody Dye MD #### IFX, FLLS, IMMS, CDP, THYGLA #### [address] [phone] [employer] Hand: Jone Eller MD S.pneum type 19F,IgG 10.07 ug/mL Normal [facility] Comment on above: Performed By: #### A IGGSB, APNAB1 #### [facility] [address] [place] [address] [employer] Hand: Cody Dye MD #### IFX, FLLS, IMMS, CDP, THYGLA #### [facility] [address] [place] [address] [phone] [employer] Hand: Jone Eller MD S.pneum type 23F,IgG 2.17 ug/mL Normal [facility] Comment on above: Performed By: #### A IGGSB, APNAB1 #### [facility] [address] [place], [place] [phone] [employer] Hand: Cody Dye MD #### IFX, FLLS, IMMS, CDP, THYGLA #### [address] [phone] [employer] Hand: Jone Eller MD S.pneum type 3,IgG 0.92 ug/mL Normal [facility] Comment on above: Performed By: #### A IGGSB, APNAB1 #### [facility] [address] [place], [place] [phone] [employer] Hand: Cody Dye MD #### IFX, FLLS, IMMS, CDP, THYGLA #### [facility] [address] [place] [phone] [employer] Hand: Jone Eller MD S.pneum type 4,IgG 0.08 ug/mL Normal [facility] Comment on above: Performed By: #### A IGGSB, APNAB1 #### [facility] [address] [place] [address] [employer] Hand: Cody Dye MD #### IFX, FLLS, IMMS, CDP, THYGLA #### [address] [phone] [employer] Hand: Jone Eller MD S.pneum type 5,IgG 3.04 ug/mL Normal [facility] Comment on above: Performed By: #### A IGGSB, APNAB1 #### [facility] [address] [place] [address] [employer] Hand: Cody Dye MD #### IFX, FLLS, IMMS, CDP, THYGLA #### [place] [address] [employer] Hand: Jone Eller MD S.pneum type 6B,IgG 0.76 ug/mL Normal [facility] Comment on above: Performed By: #### A IGGSB, APNAB1 #### [facility] [address] [phone] [employer] Hand: Cody Dye MD #### IFX, FLLS, IMMS, CDP, THYGLA #### [place] [phone] [employer] Hand: Jone Eller MD S.pneum type 7F,IgG 1.36 ug/mL Normal [facility] Comment on above: Performed By: #### A IGGSB, APNAB1 #### [facility] [address] [place] [phone] [employer] Hand: Cody Dye MD #### IFX, FLLS, IMMS, CDP, THYGLA #### [place] [phone] [employer] Hand: Jone Eller MD S.pneum type 8,IgG 0.40 ug/mL Normal [facility] Comment on above: Performed By: #### A IGGSB, APNAB1 #### [facility] [address] [place] [address] [employer] Hand: Cody Dye MD #### IFX, FLLS, IMMS, CDP, THYGLA #### [address] [id number] [employer] Hand: Jone Eller MD S.pneum type 9N,IgG 0.54 ug/mL [facility] Comment on above: Performed By: #### A IGGSB, APNAB1 #### [facility] [address] [place] [address] [employer] Hand: Cody Dye MD #### IFX, FLLS, IMMS, CDP, THYGLA #### [address] [phone] [employer] Hand: Jone Eller MD S.pneum type 9V,IgG 0.75 ug/mL [facility] Comment on above: Performed By: #### A IGGSB, APNAB1 #### [facility] [address] [place] [address] [employer] Hand: Cody Dye MD #### IFX, FLLS, IMMS, CDP, THYGLA #### [address] [phone] [employer] Hand: Jone Eller MD Immunofixation,Bloodon 07-10 IFX - Interpret. IMMUNOFIXATION IS NEGATIVE FOR MONOCLONAL IMMUNOGLOBULIN. [facility] Comment on above: Performed By: #### A IGGSB, APNAB1 #### [facility] [address] [place] [address] [employer] Hand: Cody Dye MD #### IFX, FLLS, IMMS, CDP, THYGLA #### [address] [phone] [employer] Hand: Jone Eller MD Pathologist Review: ELECTRONICALLY SIGNED. VADIM TURNER M.D. Normal [facility] Comment on above: Performed By: #### A IGGSB, APNAB1 #### [facility] [address] [place] [address] [employer] Hand: Cody Dye MD #### IFX, FLLS, IMMS, CDP, THYGLA #### [address] [address] [employer] Hand: Jone Eller MD Lymphocyte Subseton 07-11-19 22 Ab(CD3-,CD56+) 123 /uL Normal 90-600 [facility] Comment on above: Performed By: #### A IGGSB, APNAB1 #### [facility] [address] [place] [address] [employer] Hand: Cody Dye MD #### IFX, FLLS, IMMS, CDP, THYGLA #### [address] [address] [employer] Hand: Jone Eller MD Ab.T Help(CD3+,CD4+) 1652 /uL High 309-1571 [facility] Comment on above: Performed By: #### A IGGSB, APNAB1 #### [facility] [address] [place] [address] [employer] Hand: Cody Dye MD #### IFX, FLLS, IMMS, CDP, THYGLA #### [address] [address] [employer] Hand: Jone Eller MD Ab.T Sup.(CD3+,CD8+) 641 /uL Normal 282-999 [facility] Comment on above: Performed By: #### A IGGSB, APNAB1 #### [facility] [address] [place] [address] [employer] Hand: Cody Dye MD #### IFX, FLLS, IMMS, CDP, THYGLA #### [facility] [address] [place] [address] [employer] Hand: Jone Eller MD Abs. Total B (CD19+) 0 /uL Low 71-567 [facility] Comment on above: Performed By: #### A IGGSB, APNAB1 #### [facility] [address] [place] [address] [employer] Hand: Cody Dye MD #### IFX, FLLS, IMMS, CDP, THYGLA #### [facility] [address] [place] [address] [employer] Hand: Jone Eller MD Abs. Total T (CD3+) 2317 /uL High 411-1231 [facility] Comment on above: Performed By: #### A IGGSB, APNAB1 #### [facility] [address] [place] [address] [employer] Hand: Cody Dye MD #### IFX, FLLS, IMMS, CDP, THYGLA #### [address] [address] [employer] Hand: Jone Eller MD H/S Ratio(CD4+/CD8+) 2.58 Normal 0.6-2.8 [facility] Comment on above: Performed By: #### A IGGSB, APNAB1 #### [facility] [address] [place] [address] [employer] Hand: Cody Dye MD #### IFX, FLLS, IMMS, CDP, THYGLA #### [address] [address] [employer] Hand: Jone Eller MD Lymphocytes/100 WBC (Bld) 17 % Low 25-45 [facility] Comment on above: Performed By: #### A IGGSB, APNAB1 #### [facility] [address] [place] [address] [employer] Hand: Cody Dye MD #### IFX, FLLS, IMMS, CDP, THYGLA #### [address] [address] [employer] Hand: Jone Eller MD NK (CD3-,CD56+) 5 % Low 6-29 [facility] Comment on above: Performed By: #### A IGGSB, APNAB1 #### [facility] [address] [place] [address] [employer] Hand: Cody Dye MD #### IFX, FLLS, IMMS, CDP, THYGLA #### [address] [address] [employer] Hand: Jone Eller MD T Graham (CD3+,CD4+) 67 % High 27-64 [facility] Comment on above: Performed By: #### A IGGSB, APNAB1 #### [facility] [address] [place] [address] [employer] Hand: Cody Dye MD #### IFX, FLLS, IMMS, CDP, THYGLA #### [address] [phone] [employer] Hand: Jone Eller MD T Sup. (CD3+, CD8+) 26 % Normal 17-48 [facility] Comment on above: Performed By: #### A IGGSB, APNAB1 #### [facility] [address] [place] [address] [employer] Hand: Cody Dye MD #### IFX, FLLS, IMMS, CDP, THYGLA #### [address] [phone] [employer] Hand: Jone Eller MD Total B (CD19+) 0 % Low 5-25 [facility] Comment on above: Performed By: #### A IGGSB, APNAB1 #### [facility] [address] [place] [address] [employer] Hand: Cody Dye MD #### IFX, FLLS, IMMS, CDP, THYGLA #### [address] [phone] [employer] Hand: Jone Eller MD Total T (CD3+) 94 % Normal 57-94 [facility] Comment on above: Performed By: #### A IGGSB, APNAB1 #### [facility] [address] [place] [address] [employer] Hand: Cody Dye MD #### IFX, FLLS, IMMS, CDP, THYGLA #### [address] [phone] [employer] Hand: Jone Eller MD WBC (Bld) [#/Vol] 14.5 10*3/uL High 4.5-13.5 [facility] Comment on above: Performed By: #### A IGGSB, APNAB1 #### [facility] [address] [place] [address] [employer] Hand: Cody Dye MD #### IFX, FLLS, IMMS, CDP, THYGLA #### [address] [phone] [employer] Hand: Jone Eller MD Thyroglobulin Abon 2 Thyroglobulin Ab Qn [IU]/mL Normal 0.0-40.0 [facility] Comment on above: Result Comment: Reference Range: <40.0 Negative 40.0-60.0 Equivocal >60.0 Positive When results are Equivocal, it is recommended to retest after 8-12 weeks. Performed By: #### A IGGSB, APNAB1 #### [facility] [address] [place], [place] [phone] [employer] Hand: Cody Dye MD #### IFX, FLLS, IMMS, CDP, THYGLA #### [facility] [address] [place] [address] [employer] Hand: Jone Eller MD CBC with Auto Differentialon 07-09-2021 Absolute Eos # 0.43 [facility] th Absolute Immature Granulocyte 0.08 [facility] [employer] Absolute Lymph # 2.41 [facility] alth Absolute Payne # 1.26 [facility] lth Basophils (Bld) [#/Vol] 0.08 10*3/uL [employer] Basophils/100 WBC (Bld) 1 % 0 - 2 % [employer] Eosinophils/100 WBC (Bld) 3 % 1 - 4 % [employer] Hematocrit (Bld) [Volume fraction] 40.7 % 36.3 - 47.1 % [employer] Hemoglobin.gastrointe stinal spec 1 Ql (Stl) 13.5 g/dL 11.9 - 15.1 g/dL [facility] Immature granulocytes/100 WBC (Bld) 1 % High 0 [facility] Interpretation and review of laboratory results Abnormal [facility] Lymphocytes/100 WBC (Bld) 17 % Low 25 - 45 % [employer] MCH (RBC) [Entitic mass] 30.1 pg 25.2 - 33.5 pg [facility] [employer] MCHC (RBC) [Mass/Vol] 33.2 g/dL 28.4 - 34.8 g/dL [facility] MCV (RBC) [Entitic vol] 90.8 fL 82.6 - 102.9 fL [employer] Monocytes/100 WBC (Bld) 9 % High 2 - 8 % [employer] NRBC Automated 0.0 0.0 per 100 WBC [employer] Platelet distribution width (Bld) [Ratio] 12.7 % 11.8 - 14.4 % [employer] Platelet mean volume (Bld) [Entitic vol] 9.9 fL 8.1 - 13.5 fL [employer] Platelets (Bld) [#/Vol] 277 10*3/uL [facility] RBC (Bld) [#/Vol] 4.48 10*6/uL 3.95 - 5.1 1 m/uL [employer] Segmented neutrophils/100 WBC (Bld) 69 % High 34 - 64 % [employer] Segs Absolute 10.22 High [facility] h WBC (Bld) [#/Vol] 14.5 10*3/uL [facility] CBC with Diffon 07-09-2021 Abs. Basophil 0.08 k/uL Normal 0.00-0.20 [facility] Comment on above: Performed By: #### A IGGSB, APNAB1 #### [facility] [address] [place] [address] [employer] Hand: Cody Dye MD #### IFX, FLLS, IMMS, CDP, THYGLA #### [address] [phone] [employer] Hand: Jone Eller MD Abs.Imm.Granulocyte 0.08 k/uL Normal 0.00-0.30 [facility] Comment on above: Performed By: #### A IGGSB, APNAB1 #### [facility] [address] [place] [address] [employer] Hand: Cody Dye MD #### IFX, FLLS, IMMS, CDP, THYGLA #### [place] [phone] [employer] Hand: Jone Eller MD Abs.Neutrophil (Seg) 10.22 k/uL High 1.80-8.00 [facility] Comment on above: Performed By: #### A IGGSB, APNAB1 #### [facility] [address] [place] [address] [employer] Hand: Cody Dye MD #### IFX, FLLS, IMMS, CDP, THYGLA #### [place] [phone] [employer] Hand: Jone Eller MD Basophils/100 WBC (Bld) 1 % Normal 0-2 [facility] Comment on above: Performed By: #### A IGGSB, APNAB1 #### [facility] [address] [place] [address] [employer] Hand: Cody Dye MD #### IFX, FLLS, IMMS, CDP, THYGLA #### [address] [phone] [employer] Hand: Jone Eller MD Eosinophils (Bld) [#/Vol] 0.43 10*3/uL Normal 0.00-0.44 [facility] Comment on above: Performed By: #### A IGGSB, APNAB1 #### [facility] [address] [place] [address] [employer] Hand: Cody Dye MD #### IFX, FLLS, IMMS, CDP, THYGLA #### [address] [address] [employer] Hand: Jone Eller MD Eosinophils/100 WBC (Bld) 3 % Normal 1-4 [facility] Comment on above: Performed By: #### A IGGSB, APNAB1 #### [facility] [address] [place] [address] [employer] Hand: Cody Dye MD #### IFX, FLLS, IMMS, CDP, THYGLA #### [address] [address] [employer] Hand: Jone Eller MD Erythrocyte distribution width (RBC) [Ratio] 12.7 % Normal 11.8-14.4 [facility] Comment on above: Performed By: #### A IGGSB, APNAB1 #### [facility] [address] [place] [address] [employer] Hand: Cody Dye MD #### IFX, FLLS, IMMS, CDP, THYGLA #### [address] [phone] [employer] Hand: Jone Eller MD Hematocrit (Bld) [Volume fraction] 40.7 % Normal 36.3-47.1 [facility] Comment on above: Performed By: #### A IGGSB, APNAB1 #### [facility] [address] [place] [address] [employer] Hand: Cody Dye MD #### IFX, FLLS, IMMS, CDP, THYGLA #### [address] [address] [employer] Hand: Jone Eller MD Hemoglobin (Bld) [Mass/Vol] 13.5 g/dL Normal 11.9-15.1 [facility] Comment on above: Performed By: #### A IGGSB, APNAB1 #### [facility] [address] [place] [address] [employer] Hand: Cody Dye MD #### IFX, FLLS, IMMS, CDP, THYGLA #### [address] [address] [employer] Hand: Jone Eller MD Immature granulocytes/100 WBC (Bld) 1 % High 0 [facility] Comment on above: Performed By: #### A IGGSB, APNAB1 #### [facility] [address] [place] [address] [employer] Hand: Cody Dye MD #### IFX, FLLS, IMMS, CDP, THYGLA #### [address] [phone] [employer] Hand: Jone Eller MD Lymphocytes (Bld) [#/Vol] 2.41 10*3/uL Normal 1.20-5.20 [facility] Comment on above: Performed By: #### A IGGSB, APNAB1 #### [facility] [address] [place] [address] [employer] Hand: Cody Dye MD #### IFX, FLLS, IMMS, CDP, THYGLA #### [address] [address] [employer] Hand: Jone Eller MD Lymphocytes/100 WBC (Bld) 17 % Low 25-45 [facility] Comment on above: Performed By: #### A IGGSB, APNAB1 #### [facility] [address] [place] [address] [employer] Hand: Cody Dye MD #### IFX, FLLS, IMMS, CDP, THYGLA #### [place] [address] [employer] Hand: Jone Eller MD MCH (RBC) [Entitic mass] 30.1 pg Normal 25.2-33.5 [facility] Comment on above: Performed By: #### A IGGSB, APNAB1 #### [facility] [address] [place] [address] [employer] Hand: Cody Dye MD #### IFX, FLLS, IMMS, CDP, THYGLA #### [place] [address] [employer] Hand: Jone Eller MD MCHC (RBC) [Mass/Vol] 33.2 g/dL Normal 28.4-34.8 [facility] Comment on above: Performed By: #### A IGGSB, APNAB1 #### [facility] [address] [place] [address] [employer] Hand: Cody Dye MD #### IFX, FLLS, IMMS, CDP, THYGLA #### [place] [phone] [employer] Hand: Jone Eller MD MCV (RBC) [Entitic vol] 90.8 fL Normal 82.6-102.9 [facility] Comment on above: Performed By: #### A IGGSB, APNAB1 #### [facility] [address] [place] [address] [employer] Hand: Cody Dye MD #### IFX, FLLS, IMMS, CDP, THYGLA #### [address] [phone] [employer] Hand: Jone Eller MD Monocytes (Bld) [#/Vol] 1.26 10*3/uL Normal 0.10-1.40 [facility] Comment on above: Performed By: #### A IGGSB, APNAB1 #### [facility] [address] [place] [address] [employer] Hand: Cody Dye MD #### IFX, FLLS, IMMS, CDP, THYGLA #### [place] [address] [employer] Hand: Jone Eller MD Monocytes/100 WBC (Bld) 9 % High 2-8 [facility] Comment on above: Performed By: #### A IGGSB, APNAB1 #### [facility] [address] [place], [place] [phone] [employer] Hand: Cody Dye MD #### IFX, FLLS, IMMS, CDP, THYGLA #### [address] [phone] [employer] Hand: Jone Eller MD Neutrophil (Seg) 69 % High 34-64 [facility] Comment on above: Performed By: #### A IGGSB, APNAB1 #### [facility] [address] [place], [place] [phone] [employer] Hand: Cody Dye MD #### IFX, FLLS, IMMS, CDP, THYGLA #### [address] [phone] [employer] Hand: Jone Eller MD NRBC Automated 0.0 per 100 WBC Normal 0.0 [facility] Comment on above: Performed By: #### A IGGSB, APNAB1 #### [facility] [address] [place] [address] [employer] Hand: Cody Dye MD #### IFX, FLLS, IMMS, CDP, THYGLA #### [address] [address] [employer] Hand: Jone Eller MD Platelet mean volume (Bld) [Entitic vol] 9.9 fL Normal 8.1-13.5 [facility] Comment on above: Performed By: #### A IGGSB, APNAB1 #### [facility] [address] [place] [address] [employer] Hand: Cody Dye MD #### IFX, FLLS, IMMS, CDP, THYGLA #### [address] [address] [employer] Hand: Jone Eller MD Platelets (Bld) [#/Vol] 277 10*3/uL Normal 138-453 [facility] Comment on above: Performed By: #### A IGGSB, APNAB1 #### [facility] [address] [place] [address] [employer] Hand: Cody Dye MD #### IFX, FLLS, IMMS, CDP, THYGLA #### [facility] [address] [place] [address] [phone] [employer] Hand: Jone Eller MD RBC (Bld) [#/Vol] 4.48 10*6/uL Normal 3.95-5.11 [facility] Comment on above: Performed By: #### A IGGSB, APNAB1 #### [facility] [address] [place] [address] [employer] Hand: Cody Dye MD #### IFX, FLLS, IMMS, CDP, THYGLA #### [facility] [place] [address] [employer] Hand: Jone Eller MD WBC (Bld) [#/Vol] 14.5 10*3/uL High 4.5-13.5 [facility] Comment on above: Performed By: #### A IGGSB, APNAB1 #### [facility] [address] [place] [address] [employer] Hand: Cody Dye MD #### IFX, FLLS, IMMS, CDP, THYGLA #### [address] [phone] [employer] Hand: Jone Eller MD Immunoglobulin Panel (IgG, I gA, IgM)on 07-09-2021 IgA [Mass/Vol] 201 mg/dL 70 - 400 mg/dL [facility] IgG [Mass/Vol] 545 mg/dL Low 700 - 1600 mg/dL [facility] IgM [Mass/Vol] 70 mg/dL 40 - 230 mg/dL [facility] Interpretation and review of laboratory results Abnormal [facility] Immunoglobulinson 07-09-2021 IgA [Mass/Vol] 201 mg/dL Normal 70-400 [facility] Comment on above: Performed By: #### A IGGSB, APNAB1 #### [facility] [address] [place], [place] [phone] [employer] Hand: Cody Dye MD #### IFX, FLLS, IMMS, CDP, THYGLA #### [facility] [address] [place] [address] [phone] [employer] Hand: Jone Eller MD IgG [Mass/Vol] 545 mg/dL Low 700-1600 [facility] Comment on above: Performed By: #### A IGGSB, APNAB1 #### [facility] [address] [place], [place] [phone] [employer] Hand: Cody Dye MD #### IFX, FLLS, IMMS, CDP, THYGLA #### [facility] [address] [place], [place] [phone] [employer] Hand: Jone Eller MD IgM [Mass/Vol] 70 mg/dL Normal 40-230 [facility] Comment on above: Performed By: #### A IGGSB, APNAB1 #### [facility] [address] [place] [address] [employer] Hand: Cody Dye MD #### IFX, FLLS, IMMS, CDP, THYGLA #### [facility] [place] [address] [employer] Hand: Jone Eller MD CBC AUTO DIFFon 06-27-2021 BASO # 0.1 103/ul Normal 0.0-0.1 [facility] Comment on above: Performed By: #### T RANSFR #### [facility] [address] [place] [address] Dr. Orlando Saldivar Basophils/100 WBC (Bld) 0.5 % Normal 0.2-2.0 [facility] Comment on above: Performed By: #### T RANSFR #### [facility] [address] [place] [address] Dr. Orlando Saldivar EO # 0.4 103/ul Normal 0.0-0.7 [facility] Comment on above: Performed By: #### T RANSFR #### [facility] [address] [place] [address] Dr. Orlando Saldivar Eosinophils/100 WBC (Bld) 2.4 % Normal 0.9-7.0 [facility] Comment on above: Performed By: #### T RANSFR #### [facility] [address] [place] [address] Dr. Orlando Saldivar Erythrocyte distribution width (RBC) [Ratio] 12.8 % Normal 11.0-15.0 [facility] Comment on above: Performed By: #### T RANSFR #### [facility] [address] [place] [address] Dr. Orlando Saldivar Hematocrit (Bld) [Volume fraction] 38.1 % Normal 36.0-48.0 [facility] Comment on above: Performed By: #### T RANSFR #### [facility] [address] [place] [address] Dr. Orlando Saldivar Hemoglobin (Bld) [Mass/Vol] 12.7 g/dL Normal 12.0-16.0 [facility] Comment on above: Performed By: #### T RANSFR #### [facility] [address] [place] [address] Dr. Orlando Saldivar IG # 0.05 10e3/ul Critically high 0.00-0.03 [facility] Comment on above: Performed By: #### T RANSFR #### [facility] [address] [place] [address] Dr. Orlando Saldivar IG % 0.3 % Normal 0.0-0.5 [facility] Comment on above: Performed By: #### T RANSFR #### [facility] [address] [place] [address] Dr. Orlando Saldivar LYMPH # 2.5 103/ul Normal 1.2-3.8 [facility] Comment on above: Performed By: #### T RANSFR #### [facility] [address] [place] [address] Dr. Orlando Saldivar Lymphocytes/100 WBC (Bld) 16.1 % Critically low 20.5-60.0 [facility] Comment on above: Performed By: #### T RANSFR #### [facility] [address] [place] [address] Dr. Orlando Saldivar MANUAL DIFF REQ NO Normal [facility] Comment on above: Performed By: #### T RANSFR #### [facility] [address] [place] [address] Dr. Orlando Saldivar MCH (RBC) [Entitic mass] 30.0 pg Normal 26.7-34.0 [facility] Comment on above: Performed By: #### T RANSFR #### [facility] [address] [place] [address] Dr. Orlando Saldivar MCHC (RBC) [Mass/Vol] 33.3 g/dL Normal 29.9-35.2 [facility] Comment on above: Performed By: #### T RANSFR #### [facility] [address] [place] [address] Dr. Orlando Saldivar MCV (RBC) [Entitic vol] 90.1 fL Normal 81.0-99.0 [facility] Comment on above: Performed By: #### T RANSFR #### [facility] [address] [place] [address] Dr. Orlando Saldivar MONO # 1.0 103/ul Critically high 0.3-0.8 [facility] Comment on above: Performed By: #### T RANSFR #### [facility] [address] [place] [address] Dr. Orlando Saldivar Monocytes/100 WBC (Bld) 6.6 % Normal 1.7-12.0 [facility] Comment on above: Performed By: #### T RANSFR #### [facility] [address] [place] [address] Dr. Orlando Saldivar NEUT # 11.3 103/ul Critically high 1.4-6.5 [facility] Comment on above: Performed By: #### T RANSFR #### [facility] [address] [place] [address] Dr. Orlando Saldivar Neutrophils/100 WBC (Bld) 74.1 % Normal 43.0-75.0 [facility] Comment on above: Performed By: #### T RANSFR #### [facility] [address] [place] [address] Dr. Orlando Saldivar Platelet mean volume (Bld) [Entitic vol] 9.3 fL Critically low 9.5-13.5 [facility] Comment on above: Performed By: #### T RANSFR #### [facility] [address] [place] [address] Dr. Orlando Saldivar PLT 256 103/ul Normal 150-450 [facility] Comment on above: Performed By: #### T RANSFR #### [facility] [address] [place] [address] [address] Orlando Saldivar RBC 4.23 106/ul Normal 4.20-5.40 [facility] Comment on above: Performed By: #### T RANSFR #### [facility] [address] [place] [address] [address] Orlando Saldivar WBC 15.2 103/ul Critically high 4.0-11.0 [facility] Comment on above: Performed By: #### T RANSFR #### [facility] [address] [place] [address] Dr. Orlando Saldivar CRPon 06-27-2021 CRP [Mass/Vol] mg/L Normal <=1.0 [facility] Comment on above: Performed By: #### C MP, CRP #### [facility] [address] [place] [address] Dr. Orlando Saldivar PROF 14(COMP METB)on 022 Albumin [Mass/Vol] 3.8 g/dL Normal 3.5-5.0 [facility] Comment on above: Performed By: #### C MP, CRP #### [facility] [address] [place] [address] Dr. Orlando Saldivar Albumin/Globulin [Mass ratio] 1.2 {ratio} Normal [facility] Comment on above: Performed By: #### C MP, CRP #### [facility] [address] [place] [address] Dr. Orlando Saldivar ALP [Catalytic activity/Vol] 65 U/L Normal 38-126 [facility] Comment on above: Performed By: #### C MP, CRP #### [facility] [address] [place] [address] Dr. Orlando Saldivar ALT [Catalytic activity/Vol] 11 U/L Normal 9-52 [facility] Comment on above: Performed By: #### C MP, CRP #### [facility] [address] [place] [address] Dr. Orlando Saldivar Anion gap [Moles/Vol] 12.9 mmol/L Normal [facility] Comment on above: Performed By: #### C MP, CRP #### [facility] [address] [place] [address] [address] Orlando Saldivar AST [Catalytic activity/Vol] 10 U/L Critically low 14-36 [facility] Comment on above: Performed By: #### C MP, CRP #### [facility] [address] [place] [address] [address] Orlando Saldivar Bilirubin [Mass/Vol] 0.6 mg/dL Normal 0.2-1.3 [facility] Comment on above: Performed By: #### C MP, CRP #### [facility] [address] [place] [address] [address] Orlando Saldivar Calcium [Mass/Vol] 9.0 mg/dL Normal 8.4-10.2 [facility] Comment on above: Performed By: #### C MP, CRP #### [facility] [address] [place] [address] [address] Orlando Saldivar Chloride [Moles/Vol] 102 mmol/L Normal 98-107 [facility] Comment on above: Performed By: #### C MP, CRP #### [facility] [address] [place] [address] [address] Orlando Saldivar CO2 [Moles/Vol] 28.9 mmol/L Normal 22.0-30.0 [facility] Comment on above: Performed By: #### C MP, CRP #### [facility] [address] [address] [address] Orlando Saldivar Creatinine [Mass/Vol] 0.80 mg/dL Normal 0.52-1.04 [facility] Comment on above: Performed By: #### C MP, CRP #### [facility] [address] [address] [address] Orlando Saldivar EGFR-AF BENINESE >60 Normal >=60 [facility] Comment on above: Performed By: #### C MP, CRP #### [facility] [address] [address] [address] Orlando Saldivar EGFR-NON AF BENINESE >60 Normal >=60 [facility] Comment on above: Performed By: #### C MP, CRP #### [facility] [address] [address] [address] Orlando Saldivar Globulin (S) [Mass/Vol] 3.1 g/dL Normal [facility] Comment on above: Performed By: #### C MP, CRP #### [facility] [address] [address] [address] Orlando Saldivar Glucose [Mass/Vol] 90 mg/dL Normal 74-106 [facility] Comment on above: Performed By: #### C MP, CRP #### [facility] [address] [place] [address] Dr. Orlando Saldivar Potassium [Moles/Vol] 3.8 mmol/L Normal 3.4-5.0 [facility] Comment on above: Performed By: #### C MP, CRP #### [facility] [address] [place] [address] Dr. Orlando Saldivar Protein [Mass/Vol] 6.9 g/dL Normal 6.1-8.2 [facility] Comment on above: Performed By: #### C MP, CRP #### [facility] [address] [place] [address] Dr. Orlando Saldivar Sodium [Moles/Vol] 140 mmol/L Normal 137-145 [facility] Comment on above: Performed By: #### C MP, CRP #### [facility] [address] [place] [address] Dr. Orlando Saldivar Urea nitrogen [Mass/Vol] 13.0 mg/dL Normal 6.4-19.3 [facility] Comment on above: Performed By: #### C MP, CRP #### [facility] [address] [place] [address] Dr. Orlando Saldivar Urea nitrogen/Creatinine [Mass ratio] 16.2 mg/mg Normal [facility] Comment on above: Performed By: #### C MP, CRP #### [facility] [address] [place] [address] Dr. Orlando [facility] 11 mm/hr Normal <=20 [facility] Comment on above: Performed By: #### S EDR #### [facility] [address] [place], [place] [address] Dr. Orlando Saldivar Complete Blood Count with Au to Diffon 06-13-2021 Basophils (Bld) [#/Vol] 0.05 10*3/uL Normal 0.00-0.20 [facility] Comment on above: Performed By: #### C BCAD #### [facility] [address] [place], [place] [id number] Basophils/100 WBC (Bld) 0.4 % Normal [facility] Comment on above: Performed By: #### C BCAD #### [facility] [address] [place], [place] [id number] Eosinophils (Bld) [#/Vol] 0.43 10*3/uL Normal 0.02-0.50 [facility] Comment on above: Performed By: #### C BCAD #### [facility] [address] [place], [place] [id number] Eosinophils/100 WBC (Bld) 3.0 % Normal [facility] Comment on above: Performed By: #### C BCAD #### [facility] [address] [place], [place] [id number] Erythrocyte distribution width (RBC) [Ratio] 12.4 % Normal 11.0-15.0 [facility] Comment on above: Performed By: #### C BCAD #### [facility] [address] [place], [place] [id number] Hematocrit (Bld) [Volume fraction] 38.3 % Normal 35.0-47.0 [facility] Comment on above: Performed By: #### C BCAD #### [facility] [address] [place], [place] [id number] Hemoglobin (Bld) [Mass/Vol] 12.7 g/dL Normal 11.6-15.5 [facility] Comment on above: Performed By: #### C BCAD #### [facility] [address] [place], [place] [id number] Lymphocytes (Bld) [#/Vol] 1.8 10*3/uL Normal 0.9-3.9 [facility] Comment on above: Performed By: #### C BCAD #### [facility] [address] [place], [place] [id number] Lymphocytes/100 WBC (Bld) 12.8 % Normal [facility] Comment on above: Performed By: #### C BCAD #### [facility] [address] [place], [place] [id number] MCH (RBC) [Entitic mass] 30.0 pg Normal 27.0-33.0 [facility] Comment on above: Performed By: #### C BCAD #### [facility] [address] [place], [place] [id number] MCHC (RBC) [Mass/Vol] 33.2 g/dL Normal 32.0-36.0 [facility] Comment on above: Performed By: #### C BCAD #### [facility] [address] [place], [place] [id number] MCV (RBC) [Entitic vol] 90 fL Normal 80-100 [facility] Comment on above: Performed By: #### C BCAD #### [facility] [address] [place], [place] [id number] Monocytes (Bld) [#/Vol] 1.0 10*3/uL High 0.2-0.9 [facility] Comment on above: Performed By: #### C BCAD #### [facility] [address] [place], [place] [id number] Monocytes/100 WBC (Bld) 7.4 % Normal [facility] Comment on above: Performed By: #### C BCAD #### [facility] [address] [place], [place] [id number] Neutrophils (Bld) [#/Vol] 10.7 10*3/uL High 1.5-7.8 [facility] Comment on above: Performed By: #### C BCAD #### [facility] [address] [place], [place] [id number] Neutrophils/100 WBC (Bld) 75.9 % Normal [facility] Comment on above: Performed By: #### C BCAD #### [facility] [address] [place], [place] [id number] Platelet mean volume (Bld) [Entitic vol] 10.00 fL Normal 7.50-12.50 [facility] Comment on above: Performed By: #### C BCAD #### [facility] [address] [place], [place] [id number] Platelets (Bld) [#/Vol] 293 10*3/uL Normal 140-400 [facility] Comment on above: Performed By: #### C BCAD #### [facility] [address] [place], [place] [id number] RBC (Bld) [#/Vol] 4.24 10*6/uL Normal 3.90-5.20 [facility] Comment on above: Performed By: #### C BCAD #### [facility] [address] [place], [place] [id number] RDW-SD 40.5 fL Normal 37.0-50.0 [facility] Comment on above: Performed By: #### C BCAD #### [facility] [address] [place], [place] [id number] WBC (Bld) [#/Vol] 14.1 10*3/uL High 3.8-11.0 [facility] Comment on above: Performed By: #### C BCAD #### [facility] [address] [place], [place] [id number] ZINC SERUM OR PLASMAon 05-03 Zinc, Plasma or Serum 74 ug/dL Normal 44-115 [facility] Comment on above: Result Comment: Dete ction Limit = 5 Performed By: #### Z inc #### [facility] [address] [place] [address] Dr. Orlando Saldivar TRANSFERRINon 05-01-2021 Transferrin [Mass/Vol] 194 mg/dL Normal 192-364 [facility] Comment on above: Performed By: #### T RANSFR #### [facility] [address] [place] [address] Dr. Orlando Saldivar CBC AUTO DIFFon 04-30-2021 BASO # 0.1 103/ul Normal 0.0-0.1 [facility] Comment on above: Performed By: #### C BC #### [facility] [address] [address] [address] Orlando Saldivar Basophils/100 WBC (Bld) 0.4 % Normal 0.2-2.0 [facility] Comment on above: Performed By: #### C BC #### [facility] [address] [address] [address] Orlando Saldivar EO # 0.2 103/ul Normal 0.0-0.7 [facility] Comment on above: Performed By: #### C BC #### [facility] [address] [address] [address] Orlando Saldivar Eosinophils/100 WBC (Bld) 1.6 % Normal 0.9-7.0 [facility] Comment on above: Performed By: #### C BC #### [facility] [address] [place] [address] Dr. Orlando Saldivar Erythrocyte distribution width (RBC) [Ratio] 13.1 % Normal 11.0-15.0 [facility] Comment on above: Performed By: #### C BC #### [facility] [address] [place] [address] Dr. Orlando Saldivar Hematocrit (Bld) [Volume fraction] 40.1 % Normal 36.0-48.0 [facility] Comment on above: Performed By: #### C BC #### [facility] [address] [place] [address] Dr. Orlando Saldivar Hemoglobin (Bld) [Mass/Vol] 13.3 g/dL Normal 12.0-16.0 [facility] Comment on above: Performed By: #### C BC #### [facility] [address] [place] [address] Dr. Orlando Saldivar IG # 0.06 10e3/ul Critically high 0.00-0.03 [facility] Comment on above: Performed By: #### C BC #### [facility] [address] [address] [address] Orlando Saldivar IG % 0.5 % Normal 0.0-0.5 [facility] Comment on above: Performed By: #### C BC #### [facility] [address] [place] [address] Dr. Orlando Saldivar LYMPH # 1.8 103/ul Normal 1.2-3.8 [facility] Comment on above: Performed By: #### C BC #### [facility] [address] [place] [address] Dr. Orlando Saldivar Lymphocytes/100 WBC (Bld) 15.0 % Critically low 20.5-60.0 [facility] Comment on above: Performed By: #### C BC #### [facility] [address] [place] [address] Dr. Orlando Saldivar MANUAL DIFF REQ NO Normal [facility] Comment on above: Performed By: #### C BC #### [facility] [address] [place] [address] Dr. Orlando Saldivar MCH (RBC) [Entitic mass] 29.8 pg Normal 26.7-34.0 [facility] Comment on above: Performed By: #### C BC #### [facility] [address] [place] [address] Dr. Orlando Saldivar MCHC (RBC) [Mass/Vol] 33.2 g/dL Normal 29.9-35.2 [facility] Comment on above: Performed By: #### C BC #### [facility] [address] [place] [address] Dr. Orlando Saldivar MCV (RBC) [Entitic vol] 89.7 fL Normal 81.0-99.0 [facility] Comment on above: Performed By: #### C BC #### [facility] [address] [place] [address] Dr. Orlando Saldivar MONO # 0.7 103/ul Normal 0.3-0.8 [facility] Comment on above: Performed By: #### C BC #### [facility] [address] [place] [address] Dr. Orlando Saldivar Monocytes/100 WBC (Bld) 6.0 % Normal 1.7-12.0 [facility] Comment on above: Performed By: #### C BC #### [facility] [address] [place] [address] Dr. Orlando Saldivar NEUT # 9.4 103/ul Critically high 1.4-6.5 [facility] Comment on above: Performed By: #### C BC #### [facility] [address] [address] [address] Orlando Saldivar Neutrophils/100 WBC (Bld) 76.5 % Critically high 43.0-75.0 [facility] Comment on above: Performed By: #### C BC #### [facility] [address] [place] [address] Dr. Orlando Saldivar Platelet mean volume (Bld) [Entitic vol] 9.7 fL Normal 9.5-13.5 [facility] Comment on above: Performed By: #### C BC #### [facility] [address] [place] [address] Dr. Orlando Saldivar PLT 211 103/ul Normal 150-450 [facility] Comment on above: Performed By: #### C BC #### [facility] [address] [place] [address] Dr. Orlando Saldivar RBC 4.47 106/ul Normal 4.20-5.40 [facility] Comment on above: Performed By: #### C BC #### [facility] [address] [place] [address] Dr. Orlando Saldivar WBC 12.3 103/ul Critically high 4.0-11.0 [facility] Comment on above: Performed By: #### C BC #### [facility] [address] [place] [address] Dr. Orlando Saldivar CRPon 04-30-2021 CRP [Mass/Vol] mg/L Normal <=1.0 [facility] Comment on above: Performed By: #### C MP, CRP #### [facility] [address] [place] [address] Dr. Orlando Saldivar FERRITINon 04-30-2021 Ferritin [Mass/Vol] 118.0 ng/mL Normal 6.2-137.0 [facility] Comment on above: Performed By: #### T RANSFR #### [facility] [address] [place] [address] Dr. Orlando Saldivar IRON AND TIBCon 04-30-2021 % SATURATION 26.3 % Normal [facility] Comment on above: Performed By: #### F ERR, FETIBC, VITB12 #### [facility] [address] [address] [address] Orlando Saldivar Iron [Mass/Vol] 59.0 ug/dL Normal 37.0-170.0 [facility] Comment on above: Performed By: #### F ERR, FETIBC, VITB12 #### [facility] [address] [address] [address] Orlando Saldivar TIBC DIRECT 224.0 ug/dL Critically low 261.0-497.0 [facility] Comment on above: Performed By: #### F ERR, FETIBC, VITB12 #### [facility] [address] [place] [address] Dr. Orlando Saldivar PROF 14(COMP METB)on 022 Albumin [Mass/Vol] 3.7 g/dL Normal 3.5-5.0 [facility] Comment on above: Performed By: #### C MP, CRP #### [facility] [address] [place] [address] Dr. Orlando Saldivar Albumin/Globulin [Mass ratio] 1.3 {ratio} Normal [facility] Comment on above: Performed By: #### C MP, CRP #### [facility] [address] [address] [address] Orlando Saldivar ALP [Catalytic activity/Vol] 66 U/L Normal 38-126 [facility] Comment on above: Performed By: #### C MP, CRP #### [facility] [address] [address] [address] Orlando Saldivar ALT [Catalytic activity/Vol] 9 U/L Normal 9-52 [facility] Comment on above: Performed By: #### C MP, CRP #### [facility] [address] [place] [address] Dr. Orlando Saldivar Anion gap [Moles/Vol] 12.4 mmol/L Normal [facility] Comment on above: Performed By: #### C MP, CRP #### [facility] [address] [address] [address] Orlando Saldivar AST [Catalytic activity/Vol] 10 U/L Critically low 14-36 [facility] Comment on above: Performed By: #### C MP, CRP #### [facility] [address] [address] [address] Orlando Saldivar Bilirubin [Mass/Vol] 0.4 mg/dL Normal 0.2-1.3 [facility] Comment on above: Performed By: #### C MP, CRP #### [facility] [address] [address] [address] Orlando Saldivar Calcium [Mass/Vol] 9.0 mg/dL Normal 8.4-10.2 [facility] Comment on above: Performed By: #### C MP, CRP #### [facility] [address] [address] [address] Orlando Saldivar Chloride [Moles/Vol] 103 mmol/L Normal 98-107 [facility] Comment on above: Performed By: #### C MP, CRP #### [facility] [address] [address] [address] Orlando Saldivar CO2 [Moles/Vol] 26.0 mmol/L Normal 22.0-30.0 [facility] Comment on above: Performed By: #### C MP, CRP #### [facility] [address] [address] [address] Orlando Saldivar Creatinine [Mass/Vol] 0.92 mg/dL Normal 0.52-1.04 [facility] Comment on above: Performed By: #### C MP, CRP #### [facility] [address] [address] [address] Orlando Saldivar EGFR-AF BENINESE >60 Normal >=60 [facility] Comment on above: Performed By: #### C MP, CRP #### [facility] [address] [address] [address] Orlando Saldivar EGFR-NON AF BENINESE >60 Normal >=60 [facility] Comment on above: Performed By: #### C MP, CRP #### [facility] [address] [address] [address] Orlando Saldivar Globulin (S) [Mass/Vol] 2.9 g/dL Normal [facility] Comment on above: Performed By: #### C MP, CRP #### [facility] [address] [address] [address] Orlando Saldivar Glucose [Mass/Vol] 119 mg/dL Critically high 74-106 [facility] Comment on above: Performed By: #### C MP, CRP #### [facility] [address] [address] [address] Orlando Saldivar Potassium [Moles/Vol] 3.4 mmol/L Normal 3.4-5.0 [facility] Comment on above: Performed By: #### C MP, CRP #### [facility] [address] [place] [address] Dr. Orlando Saldivar Protein [Mass/Vol] 6.6 g/dL Normal 6.1-8.2 [facility] Comment on above: Performed By: #### C MP, CRP #### [facility] [address] [address] [address] Orlando Saldivar Sodium [Moles/Vol] 138 mmol/L Normal 137-145 [facility] Comment on above: Performed By: #### C MP, CRP #### [facility] [address] [place] [address] Dr. Orlando Saldivar Urea nitrogen [Mass/Vol] 8.0 mg/dL Normal 6.4-19.3 [facility] Comment on above: Performed By: #### C MP, CRP #### [facility] [address] [address] [address] Orlando Saldivar Urea nitrogen/Creatinine [Mass ratio] 8.7 mg/mg Normal [facility] Comment on above: Performed By: #### C MP, CRP #### [facility] [address] [address] [address] [facility] mm/hr Normal <=20 [facility] Comment on above: Performed By: #### S EDR #### [facility] [id number] Orlando Saldivar VITAMIN B12on 04-30-2021 Cobalamin (Vitamin B12) [Mass/Vol] 812.0 pg/mL Normal 239.0-931.0 [facility] Comment on above: Performed By: #### T RANSFR #### [facility] [address] [address] [address] Orlando Saldivar Lab Reportson 01-17-2020 Lab Reports [id number] .00CD:127 [facility] Consultation Noteon 01-13-20 Consultation Note [id number]. 00CD:127 [facility] Auth for Release of Medical Recordson 12-09-2019 Auth for Release of Medical Records [id number]. 00CD:[address] [facility] Consultation Noteon 11-24-19 Consultation Note [id number] .00CD:127 [facility] Consultation Noteon 11-22-19 Consultation Note [id number] .00CD:127 [facility] Vital Signs Date Time Vital Sign Value Performing Clinician Facility 08-06-2023 11:43-0400 Body height 160 cm Velia Yo MD Work Phone: [facility] 08-06-2023 11:43-0400 Body mass index (BMI) [Ratio] 37.91 kg/m2 Velia Yo MD Work Phone: [facility] 08-06-2023 11:43-0400 Body weight 97.07 kg Velia Yo MD Work Phone: [facility] 08-06-2023 11:43-0400 Diastolic blood pressure 76 mm[Hg] Velia Yo MD Work Phone: [facility] 08-06-2023 11:43-0400 Heart rate 101 /min Velia Yo MD Work Phone: [facility] 08-06-2023 11:43-0400 SaO2% (BldA) [Mass fraction] 98 % Velia Yo MD Work Phone: [facility] 08-06-2023 11:43-0400 Systolic blood pressure 102 mm[Hg] Velia Yo MD Work Phone: [facility] 08-06-2023 09:34-0400 Body height 160 cm Teresa Franciscachucky SUPER[employer]OR [employer] Work Phone: [facility] 08-06-2023 09:34-0400 Body mass index (BMI) [Ratio] 37.98 kg/m2 Teresa Franciscahoff SUPERVISOR [employer] Work Phone: [facility] 08-06-2023 09:34-0400 Body weight 97.25 kg Teresa Verhoff SUPERVISOR [employer] Work Phone: [facility] 08-06-2023 09:34-0400 Diastolic blood pressure 76 mm[Hg] Teresa Aguirreff SUPER[employer]OR [employer] Work Phone: [facility] 08-06-2023 09:34-0400 Heart rate 75 /min Teresa Gerber SUPER[employer]OR [employer] Work Phone: [facility] 08-06-2023 09:34-0400 SaO2% (BldA) [Mass fraction] 98 % Teresa Gerber SUPER[employer] Work Phone: [facility] 08-06-2023 09:34-0400 Systolic blood pressure 102 mm[Hg] Teresa Espinosahoff SUPER[employer]OR [employer] Work Phone: [facility] 05-26-2023 17:17-0500 Body height 160 cm Rubia Hernandez DIRECTOR [employer] Work Phone: [facility] 05-26-2023 17:17-0500 Body mass index (BMI) [Ratio] 34.97 kg/m2 Rubia Hernandez DIRECTOR [employer] Work Phone: [facility] 05-26-2023 17:17-0500 Body weight 89.54 kg Rubia Hernandez DIRECTOR [employer] Work Phone: [facility] 05-26-2023 17:17-0500 Diastolic blood pressure 60 mm[Hg] Rubia Hernandez DIRECTOR [employer] Work Phone: [facility] 05-26-2023 17:17-0500 Heart rate 104 /min Rubia Hernandez DIRECTOR [employer] Work Phone: [facility] 05-26-2023 17:17-0500 SaO2% (BldA) [Mass fraction] 99 % Rubia Hernandez DIRECTOR [employer] Work Phone: [facility] 05-26-2023 17:17-0500 Systolic blood pressure 110 mm[Hg] Rubia Hernandez DIRECTOR [employer] Work Phone: [facility] 04-24-2023 13:59-0500 Body height 160 cm Ruchi Carmona MD Work Phone: [facility] 04-24-2023 13:59-0500 Diastolic blood pressure 68 mm[Hg] Ruchi Carmona MD Work Phone: [facility] 04-24-2023 13:59-0500 Heart rate 81 /min Ruchi Carmona MD Work Phone: [facility] 04-24-2023 13:59-0500 Systolic blood pressure 106 mm[Hg] Ruchi Carmona MD Work Phone: [facility] 02-25-2023 12:32-0500 Body height 160 cm Giovani Edmonds MD Work Phone: [facility] 02-25-2023 12:32-0500 Body mass index (BMI) [Ratio] 32.06 kg/m2 Giovani Edmonds MD Work Phone: [facility] 02-25-2023 12:32-0500 Body weight 82.1 kg Giovani Edmonds MD Work Phone: [facility] 02-25-2023 12:32-0500 Diastolic blood pressure 70 mm[Hg] Giovani Edmonds MD Work Phone: [facility] 02-25-2023 12:32-0500 Heart rate 74 /min Giovani Edmonds MD Work Phone: [facility] 02-25-2023 12:32-0500 SaO2% (BldA) [Mass fraction] 97 % Giovani Edmonds MD Work Phone: [facility] Comment on above: RA 02-25-2023 12:32-0500 Systolic blood pressure 118 mm[Hg] Giovani Edmonds MD Work Phone: [facility] 01-26-2023 10:50-0400 Body height 161.1 cm Enmanuel Osuna MD Work Phone: [facility] 01-26-2023 10:50-0400 Body mass index (BMI) [Ratio] 31.25 kg/m2 Enmanuel Osuna MD Work Phone: [facility] 01-26-2023 10:50-0400 Body temperature 98.1 [degF] Enmanuel Osuna MD Work Phone: [facility] 01-26-2023 10:50-0400 Body weight 81.1 kg Enmanuel Osuna MD Work Phone: [facility] 01-26-2023 10:50-0400 Diastolic blood pressure 65 mm[Hg] Enmanuel Osuna MD Work Phone: [facility] 01-26-2023 10:50-0400 Heart rate 73 /min Enmanuel Osuna MD Work Phone: [facility] 01-26-2023 10:50-0400 Respiratory rate 20 /min Enmanuel Osuna MD Work Phone: [facility] 01-26-2023 10:50-0400 Systolic blood pressure 100 mm[Hg] Enmanuel Osuna MD Work Phone: [facility] 01-26-2023 09:51-0400 Body height 161.1 cm Zhou Lee MD Work Phone: [facility] 01-26-2023 09:51-0400 Body mass index (BMI) [Ratio] 31.25 kg/m2 Zhou Lee MD Work Phone: [facility] 01-26-2023 09:51-0400 Body weight 81.1 kg Zhou Lee MD Work Phone: [facility] 01-26-2023 09:51-0400 Respiratory rate 20 /min Zhou Lee MD Work Phone: [facility] 01-26-2023 08:15-0400 Body height 161.1 cm Ioana Otero MD Work Phone: [facility] 01-26-2023 08:15-0400 Body mass index (BMI) [Ratio] 31.25 kg/m2 Ioana Otero MD Work Phone: [facility] 01-26-2023 08:15-0400 Body temperature 98.2 [degF] Ioana Otero MD Work Phone: [facility] 01-26-2023 08:15-0400 Body weight 81.1 kg Ioana Otero MD Work Phone: [facility] 01-26-2023 08:15-0400 Diastolic blood pressure 77 mm[Hg] Ioana Otero MD Work Phone: [facility] 01-26-2023 08:15-0400 Heart rate 74 /min Ioana Otero MD Work Phone: [facility] 01-26-2023 08:15-0400 Systolic blood pressure 110 mm[Hg] Ioana Otero MD Work Phone: [facility] 12-26-2022 12:00-0400 Body weight 81.6 kg Connie Mac RN [facility] 05-05-2022 11:04-0500 Body height 162 cm Zhou Lee MD Work Phone: [facility] Comment on above: prior reading 05-05-2022 11:04-0500 Body mass index (BMI) [Ratio] 31.09 kg/m2 Zhou Lee MD Work Phone: [facility] 05-05-2022 11:04-0500 Body weight 81.6 kg Zhou Lee MD Work Phone: [facility] 05-05-2022 11:04-0500 Heart rate 84 /min Zhou Lee MD Work Phone: [facility] 08-13-2021 18:15-0400 Diastolic blood pressure 76 mm[Hg] Jessie Lenz MD Work Phone: [facility] 08-13-2021 18:15-0400 Heart rate 86 /min Jessie Lenz MD Work Phone: [facility] 08-13-2021 18:15-0400 Systolic blood pressure 116 mm[Hg] Jessie Lenz MD Work Phone: [facility] 08-13-2021 16:15-0400 Body temperature 99.1 [degF] Jessie Lenz MD Work Phone: [facility] 08-13-2021 11:30-0400 Respiratory rate 16 /min Jessie Lenz MD Work Phone: [employer] 08-13-2021 11:30-0400 SaO2% (BldA) [Mass fraction] 99 % Jessie Lenz MD Work Phone: [employer] 08-13-2021 08:15-0400 Body height 164 cm Jessie Lenz MD Work Phone: [employer] 08-13-2021 08:15-0400 Body mass index (BMI) [Percentile] Per age and sex 95.01 % Jessie Lenz MD Work Phone: [employer] 08-13-2021 08:15-0400 Body mass index (BMI) [Ratio] 31.6 kg/m2 Jessie Lenz MD Work Phone: [employer] 08-13-2021 08:15-0400 Body weight 85 kg Jessie Lenz MD Work Phone: [employer] Encounters Encounter Date Encounter Type Care Provider Facility Start: 11-09-2023 ambulatory CHEY ARAGON [facility] Start: 10-22-2023 ambulatory MILIND FITCH Facility:[facility] Start: 10-22-2023 ambulatory SELF SELF Facility:[facility] Start: 10-07-2023 End: 10-07-2023 ambulatory ALFREDO L FLORO Not Available Start: 09-10-2023 End: 09-10-2023 ambulatory ALFREDO L FLORO Not Available Start: 09-03-2023 End: 09-03-2023 ambulatory Alfredo L Floro Facility:[facility] Start: 09-03-2023 End: 09-03-2023 ambulatory [employer] Alfredo Floro Work Phone: [facility] Work Phone: Start: 09-03-2023 End: 09-03-2023 Departed Referred [employer] Alfredo Floro Work Phone: [facility] Start: 08-31-2023 End: 08-31-2023 ambulatory ALFREDO L FLORO Not Available Start: 08-24-2023 End: 08-24-2023 ambulatory ALFREDO L FLORO Not Available Start: 08-18-2023 End: 08-18-2023 ambulatory ALFREDO L FLORO Not Available Start: 08-12-2023 End: 08-12-2023 ambulatory DALLAS HANNON Not Available Start: 08-06-2023 End: 08-06-2023 Office consultation new/estab patient 80 min Velia Yo MD Work Phone: [facility] Comment on above: Orbital myositis, un specified laterality (Primary Dx); Crohn's disease of small and large intestines with complication; Immunosuppressed status; Chronic pansinusitis; Pulmonary nodules; Psoriasis; Less than 8 weeks gestation of ; Left leg swelling; Psoriasis of scalp Start: 08-06-2023 End: 08-06-2023 Office outpatient visit 15 minutes Teresa Gerber APRN-[employer] Work Phone: [facility] [place] Comment on above: Crohn's disease in r emission (Primary Dx) Start: 08-06-2023 ambulatory VELIA YO Facility :[facility] Start: 08-05-2023 End: 08-05-2023 ambulatory BLAZE RENTERIA Not Available Start: 08-03-2023 End: 08-03-2023 ambulatory ALFREDO L FLORO Not Available Start: 07-31-2023 End: 07-31-2023 ambulatory DALLAS HANNON Not Available Start: 07-29-2023 End: 07-29-2023 ambulatory BLAZE RENTERIA Not Available Start: 07-22-2023 End: 07-22-2023 ambulatory ALFREDO L FLORO Not Available Start: 07-03-2023 End: 07-04-2023 ambulatory ALFREDO FLORO [facility] Start: 07-02-2023 End: 07-02-2023 ambulatory XIOMARA ZURITA Not Available Start: 06-24-2023 End: 06-24-2023 ambulatory ALFREDO L FLORO Not Available Start: 06-16-2023 End: 06-16-2023 ambulatory ALFREDO L FLORO Not Available Start: 06-15-2023 End: 06-15-2023 ambulatory KATIE Lorenzo DE SANTIAGOJANETTEENBRAYAN Not Available Start: 06-09-2023 End: 06-09-2023 ambulatory KATIE A DIPAKENBRAYAN Not Available Start: 06-01-2023 End: 06-01-2023 Orders Only Marjorie Bautista RN [facility] Comment on above: Maternal Crohn's dis ease affecting in second trimester ([facility]) (Primary Dx); History of chronic ulcerative colitis Start: 05-29-2023 End: 05-30-2023 ambulatory [facility] Start: 05-26-2023 End: 05-26-2023 Office outpatient visit 25 minutes Ruiba Hernandez NP Work Phone: [facility] Comment on above: Viral URI (Primary D x); 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); Immunodeficiency, unspecified (D84.9); 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); Crohns disease of both small and large intestine with unspecified complications (K50.819); Bilateral impacted cerumen Start: 05-26-2023 End: 05-26-2023 ambulatory RUBIA HERNANDEZ Not Available Start: 05-26-2023 Bamboo flowsheet Rubia Hernandez DIRECTOR [employer] MANAGEMENT Work Phone: [facility] Start: 05-26-2023 Bamboo flowsheet Rubia Hernandez DIRECTOR [employer]AL[employer] MANAGEMENT Work Phone: [facility] Start: 04-29-2023 ambulatory TERESA GERBER Facility:[facility] Start: 04-27-2023 End: 04-27-2023 ambulatory [facility] Not Available Start: 04-24-2023 End: 04-25-2023 [facility] Start: 04-24-2023 End: 04-24-2023 Office outpatient new 45 minutes Ruchi Carmona MD Work Phone: [facility]- Medicine [facility] Comment on above: Maternal Crohn's dis ease affecting in second trimester ([facility]) (Primary Dx); History of chronic ulcerative colitis; 19 weeks gestation of Start: 04-16-2023 Chart abstracting Scanning Pro vider External [facility] Start: 04-03-2023 End: 04-03-2023 Clinical Support Encounter [facility] Ibd Nurse [facility] Comment on above: Crohn's disease of b oth small and large intestine with complication (Primary Dx) Start: 04-03-2023 ambulatory [facility] CARE PROVIDER Facility:[facility] Start: 04-02-2023 Chart abstracting Scanning Pro vider External [facility] Start: 03-30-2023 End: 03-30-2023 ambulatory ALFREDO L FLORO Not Available Start: 03-19-2023 End: 03-19-2023 ambulatory KATIE ACEVES Not Available Start: 03-18-2023 End: 03-18-2023 ambulatory BLAZE RENTERIA Not Available Start: 03-16-2023 End: 03-16-2023 ambulatory BO STOKES Not Available Start: 03-11-2023 End: 03-11-2023 ambulatory ENEDINA BRWINSTON Not Available Start: 03-09-2023 End: 03-09-2023 ambulatory ENEDINA BRWINSTON Not Available Start: 03-04-2023 End: 03-04-2023 ambulatory ALFREDO L FLORO Not Available Start: 03-04-2023 End: 03-04-2023 ambulatory ENEDINA BRWINSTON Not Available Start: 03-03-2023 Telephone encounter Alexx Slater MD Work Phone: [facility] Comment on above: Case Discussion (Tra nsitioned to adult GI at [facility]) Start: 03-02-2023 End: 03-02-2023 ambulatory BO STOKES Not Available Start: 02-27-2023 End: 02-27-2023 ambulatory ENEDINA TAYLOR Not Available Start: 02-25-2023 End: 02-25-2023 Office consultation new/estab patient 80 min Giovani Edmonds MD Work Phone: [facility] Comment on above: Crohn's disease of b oth small and large intestine with complication (Primary Dx); Orbital myositis, unspecified laterality; 11 weeks gestation of Start: 02-25-2023 ambulatory GIOVANI Hess y:[facility] Start: 02-23-2023 End: 02-23-2023 ambulatory CHEY ARAGON Not Available Start: 02-05-2023 [facility] Start: 01-26-2023 End: 01-26-2023 Subsequent hospital visit by physician Enmanuel Osuna MD Work Phone: [facility] Comment on above: Iron deficiency Start: 01-26-2023 End: 01-26-2023 ambulatory CHEY G MAHESH [facility] Start: 01-26-2023 End: 01-26-2023 Office outpatient visit 15 minutes Zhou Lee MD Work Phone: [facility] Comment on above: Sinus Problem (F/u r ecurrent sinusitis) Start: 01-26-2023 End: 01-26-2023 ambulatory CHEY Luba MAHESH [facility] Start: 01-26-2023 End: 01-26-2023 Office outpatient visit 40 minutes Ioana Otero MD Work Phone: [facility] Comment on above: FOLLOW-UP Start: 01-21-2023 Telephone encounter Ioana liz MD Work Phone: [facility] Comment on above: Results Start: 01-20-2023 ambulatory MARTHA HATFIELD [facility] Start: 01-16-2023 ambulatory MILIND FITCH Facility:[facility] Start: 01-09-2023 Telephone encounter Alison Moore RN [facility] Comment on above: Update Start: 01-05-2023 ambulatory CHEY Verduzco MAHESH [facility] Start: 12-23-2022 Refill Alexx todd MD Work Phone: [facility] Comment on above: Refill Request Start: 12-18-2022 ambulatory Yoana alba [facility] Start: 12-18-2022 Coordination of care plan Angella Head [facility] Comment on above: Primary Insurance: P rior Authorization Coordination for Gastroenterology Prior Authorization Start: 12-17-2022 Telephone encounter Connie Mac RN [facility] Comment on above: Coordination Of Care (Rituximab) Start: 11-21-2022 Telephone encounter Alyssa Pierre RN [facility] Comment on above: Change Appointment Start: 09-24-2022 Telephone encounter Zhou peres MD Work Phone: ENT [facility] Comment on above: Schedule Surgery Start: 09-04-2022 Documentation procedure Manjeet Lee MD Work Phone: ENT [facility] Comment on above: Per [facility] R[facility] Letter # 9, [facility] requested clinicals be sent. Clinicals sent Start: 07-16-2022 Documentation procedure Ginna Slater MD Work Phone: [facility] Comment on above: Faxed [facility] reapplica tion to [phone]. Scanned into the chart. Start: 05-05-2022 End: 05-05-2022 Postop follow up visit related to original px Zhou Lee MD Work Phone: [facility] Comment on above: Orbital myositis, un specified laterality (Primary Dx); Chronic sinusitis, unspecified location Start: 04-08-2022 Telephone encounter Brielle Teran RN [facility] Comment on above: Surgical Followup Start: 02-06-2022 Telephone encounter Mitch Banuelos MD Work Phone: [facility] Comment on above: Pre-certification Start: 11-19-2021 End: 11-19-[address] DOCTOR LIM Facility: Start: 08-13-2021 End: 08-13-2021 ambulatory JESSIE LENZ [facility] Start: 08-13-2021 End: 08-13-2021 Subsequent hospital visit by physician Jessie Lenz MD Work Phone: [facility] Start: 07-09-2021 End: 07-10-2021 ambulatory SHAKIRA ORANTES [facility] Start: 07-09-2021 End: 07-09-2021 Subsequent hospital visit by physician Otilia Sinclair Work Phone: [facility] Start: 06-27-2021 End: 06-28-[address] DOCTOR LIM Facility:[facility] Start: 04-30-2021 End: 05-01-[address] DOCTOR LIM Facility:[facility] Procedures Date Procedure Procedure Detail Performing Clinician Start: 10-22-2023 Follow-up visit Follow-up MILIND JAMIL Start: 08-06-2023 Urnls dip stick/tabl et rgnt auto w/o microscopy Velia Yo MD Work Phone: Start: 05-26-2023 Removal impacted cer umen irrigation/lvg unilat Rubia Hernandez DIRECTOR [employer]ALENT MANAGEMENT Work Phone: Start: 03-04-2023 CHLAMYDIA/GC BY PCR [...] Ref Prov Start: 01-26-2023 Follow-up visit FOLLOW-UP IOANA ASIF IEST Start: 07-09-2021 Blood count complete auto&auto difrntl wbc Shakira Orantes MD Work Phone: Plan of Treatment Date Care Activity Detail Author Start: 06-01-2024 End: 06-01-2024 US MFM with or without consult US MFM with or without consult Imaging Routine Maternal Crohn's disease affecting in second trimester (CMS-HCC) History of chronic ulcerative colitis Expected: 06/01/2024 (Approximate), Expires: 06/01/2024 [facility] Work Phone: Comment on above: Expected: 06/01/2024 (Approximate), Expi res: 06/01/2024 Start: 04-24-2024 Tobacco Screening Tobacco Screening [facility] Start: 01-27-2024 IBD Iron Studies IBD Iron Studies [facility] Start: 12-13-2023 Influenza vaccination INFLUENZA VACCINE (Season Ended) [facility] Start: 10-22-2023 End: 10-22-2023 Telemedicine consultation with patient 10/22/2023 9:30 AM EDT Telemedicine [facility] [address] [place], [place] [id number] Milind Fitch, SUPER[employer]OR [employer] [address] [place] [id number] [facility] Start: 10-21-2023 DTaP,Tdap and Td Vaccines (7 - Td or Tdap) DTaP,Tdap and Td Vaccines (7 - Td or Tdap) [facility] Start: 10-21-2023 DTaP/Tdap/Td vaccine (7 - Td or Tdap) DTaP/Tdap/Td vaccine (7 - Td or Tdap) [facility] Start: 10-21-2023 DTaP/Tdap/Td VACCINES (7 - Td or Tdap) DTaP/Tdap/Td VACCINES (7 - Td or Tdap) [facility] Start: 10-21-2023 Tetanus vaccination TETANUS [facility] Start: 08-06-2023 End: 08-05-2024 CALPROTECTIN, STOOL CALPROTECTIN, STOOL Fluids Routine Crohn's disease in remission Expected: 08/06/2023, Expires: 08/05/2024 [facility] Comment on above: Expected: 08/06/2023, Expires: Start: 08-06-2023 End: 08-05-2024 US.doppler Lower extremity vein - left VASC DUPLEX VENOUS EXTREMITY LOWER LEFT Imaging STAT Left leg swelling Expected: 08/06/2023, Expires: 08/05/2024 [facility] Comment on above: Expected: 08/06/2023, Expires: Start: 07-03-2023 End: 07-03-2023 Patient encounter procedure 07/03/2023 3:00 PM EDT Appointment [facility] [address] [place] [address] [facility] Start: 06-01-2023 End: 06-01-2023 Patient encounter procedure 06/01/2023 6:30 PM EST Routine [facility] [address] [place] [phone] Alfredo Duong, CATM [address] [place] [address] [facility] Start: 05-29-2023 End: 05-29-2023 Patient encounter procedure 05/29/2023 2:45 PM EST Appointment [facility] [address] [place] [address] [facility] Start: 05-26-2023 End: 05-26-2023 Patient encounter procedure 05/26/2023 7:30 PM EST Office Visit [facility] [address] [place] [phone] Rubia Hernandez NP [address] [place] [address] Arrived [facility] Comment on above: Arrived Start: 04-29-2023 End: 04-29-2023 Patient encounter procedure 04/29/2023 10:00 AM EST Office Visit [facility] [address] [place] [address] [address] [place], [place] [id number] Teresa Gerber, SUPERVISOR [employer] [address] [place] [address] Inflammatory Bowel Disease [facility] Start: 04-24-2023 End: 04-24-2023 Patient encounter procedure [facility] Start: 04-03-2023 End: 04-03-2023 Clinical Support Encounter 04/03/2023 11:00 AM EST Clinical Support Encounter [facility] [place] [address] [place] [address] [facility] Start: 03-20-2023 IBD Iron Studies IBD Iron Studies [facility] Start: 02-25-2023 End: 02-26-2024 CALPROTECTIN, STOOL CALPROTECTIN, STOOL Fluids Routine Crohn's disease of both small and large intestine with complication Expected: 02/25/2023, Expires: 02/26/2024 [facility] Comment on above: Expected: 02/25/2023, Expires: 4 Start: 02-25-2023 End: 02-26-2024 HEP A AB, TOTAL (IGG+IGM) HEP A AB, TOTAL (IGG+IGM) Lab Routine Crohn's disease of both small and large intestine with complication Expected: 02/25/2023, Expires: 02/26/2024 [facility] Comment on above: Expected: 02/25/2023, Expires: 4 Start: 02-25-2023 End: 02-26-2024 M TUBERCULOSIS BY QUANTIFERON, BLD [facility] Comment on above: Expected: 02/25/2023, Expires: 4 Start: 02-25-2023 End: 02-26-2024 THIOPURINE METHYL-TRANSFERASE [facility] Comment on above: Expected: 02/25/2023, Expires: 4 Start: 02-25-2023 End: 02-26-2024 ZINC, SERUM [facility] Comment on above: Expected: 02/25/2023, Expires: 4 Start: 02-18-2023 End: 02-18-2023 Patient encounter procedure [facility] Start: 01-26-2023 End: 01-27-2024 Ferritin [Mass/volume] in Serum or Plasma [facility] Comment on above: One Time for 1 Occurrences starting 01/11 until 01/26/2023 Expected: 01/26/2023 (Approximate), Expires: 01/27/2024 Start: 01-26-2023 End: 01-26-2023 Patient encounter procedure ENT Clinic [facility] Start: 01-20-2023 End: 01-20-2023 Patient encounter procedure 01/20/2023 1:00 PM EDT Appointment [facility] [address] [place], [place] [address]Jenny [address] [place] [phone] Martha Hatfield MD [address] [place], [place] [phone] [facility] Start: 01-14-2023 IBD TDM Annual Screening Ustekinumab IBD TDM Annual Screening Ustekinumab [facility] Start: 01-05-2023 End: 01-05-2023 Admission to same day surgery center Perioperative Services Comment on above: ETHMOID SINUS SURGERY bilateral Start: 01-05-2023 End: 01-05-2023 Nasal/sinus ndsc w/partial ethmoidectomy [facility] Start: 01-05-2023 End: 01-05-2023 Nsl/sinus ndsc max antrost w/rmvl tiss max sinus [facility] Start: 01-05-2023 End: 01-05-2023 Strtctc cptr asstd px cranial intradural [facility] Start: 01-05-2023 Subsequent hospital visit by physician Perioperative Services Start: 01-05-2023 End: 01-05-2023 Patient encounter procedure 01/05/2023 10:[address] [facility] [address] [place] [phone] Discharge Disposition: Home CT [facility] Start: 12-24-2022 IBD on Biologics/Immunomodulato rs Quantiferon IBD on Biologics/Immunomodulato rs Quantiferon [facility] Start: 12-12-2022 COVID-19 Vaccine () COVID-19 Vaccine () [facility] Start: 12-12-2022 Influenza vaccination [facility] Start: 2022 Screening for malignant neoplasm of cervix [facility] Start: 11-02-2022 IBD 25-OH Vitamin D IBD 25-OH Vitamin D [facility] Start: 09-18-2022 IBD 25-OH Vitamin D IBD 25-OH Vitamin D [facility] Start: 09-03-2022 IBD Annual Visit IBD Annual Visit [facility] Start: 07-25-2022 End: 07-25-2022 Patient encounter procedure 07/25/2022 Appointment Rheumatology [facility] Start: 07-25-2022 End: 07-25-2022 Patient encounter procedure 07/25/2022 Appointment Gastroenterology Alexx Slater MD [address] [place] [id number] [facility] Start: 06-09-2022 IBD Calprotectin IBD Calprotectin [facility] Start: 05-24-2022 IBD Surveillence Colonscopy 8 years after diagnosis IBD Surveillence Colonscopy 8 years after diagnosis [facility] Start: 05-06-2022 IBD TDM Post Induction Ustekinumab IBD TDM Post Induction Ustekinumab [facility] Start: 05-05-2022 End: 05-05-2022 Patient encounter procedure 05/05/2022 Appointment Ent-Otolaryngology Zhou Lee MD Otolaryngology [address] [address] [facility] Start: 12-12-2021 Influenza vaccination INFLUENZA VACCINE (#1) [facility] Start: 04-18-2021 COVID-19 Vaccine (2 - Misael risk 3-dose series) COVID-19 Vaccine (2 - Misael risk 3-dose series) [facility] Start: 04-18-2021 COVID-19 Vaccine (2 - Misael risk series) COVID-19 Vaccine (2 - Misael risk series) [facility] Start: 12-12-2020 Influenza vaccination Flu vaccine (#1) [facility] Start: 2020 DTaP,Tdap and Td Vaccines (1 - Tdap) DTaP,Tdap and Td Vaccines (1 - Tdap) [facility] Start: 2020 DTaP/Tdap/Td vaccine (1 - Tdap) DTaP/Tdap/Td vaccine (1 - Tdap) [facility] Start: 2020 Zoster vaccine hzv live for subcutaneous use ZOSTER (SHINGLES) VACCINE (1 of 2) [facility] Start: 11-04-2019 Adult BMI Screening Adult BMI Screening [facility] Start: 11-04-2019 Hepatitis C screening Hepatitis C screen [facility] Start: 12-18-2017 Varicella vaccine (2 of 2 - 2-dose childhood series) Varicella vaccine (2 of 2 - 2-dose childhood series) [facility] Start: 12-18-2017 VARICELLA VACCINES (2 of 2 - 2-dose childhood series) VARICELLA VACCINES (2 of 2 - 2-dose childhood series) [facility] Start: 2017 MENB (1 of 2 - Patient Seeks Protection) MENB (1 of 2 - Patient Seeks Protection) [facility] Start: 2017 Screening for Chlamydia trachomatis Chlamydia screen [facility] Start: 2016 HIV screening [facility] Start: 2016 Vaccination for human papillomavirus HPV VACCINE ADOL (1 - 3-dose series) [facility] Start: 11-04-2015 Gastroenterology Transition Assessment Gastroenterology Transition Assessment [facility] Start: 11-04-2015 Hemonc Transition Assessment Hemonc Transition Assessment [facility] Start: 11-04-2015 Rheumatology Transition Assessment Rheumatology Transition Assessment [facility] Start: 2013 Depression Screen Depression Screen [facility] Start: 2013 Depression Screening Depression Screening [facility] Start: 2013 Tobacco Screening Tobacco Screening [facility] Start: 2012 HPV vaccine (1 - 2-dose series) HPV vaccine (1 - 2-dose series) [facility] Start: 2012 Vaccination for human papillomavirus HPV VACCINE ADOL (1 - 2-dose series) [facility] Start: 11-04-2011 MENB (1 of 2 - Risk Bexsero 2-dose series) MENB (1 of 2 - Risk Bexsero 2-dose series) [facility] Start: 2010 HPV VACCINES (1 - 2-dose series) HPV VACCINES (1 - 2-dose series) [facility] Start: 11-04-2007 Pneumococcal 0-64 years Vaccine (1 - PCV) Pneumococcal 0-64 years Vaccine (1 - PCV) [facility] Start: 11-04-2007 Pneumococcal vaccination PNEUMOCOCCAL VACCINE (1 - PCV) [facility] Start: 11-04-2007 PNEUMOCOCCAL VACCINE SERIES (1 - PCV) PNEUMOCOCCAL VACCINE SERIES (1 - PCV) [facility] Start: 11-04-2007 PNEUMOCOCCAL VACCINE SERIES (1 of 2 - PCV) PNEUMOCOCCAL VACCINE SERIES (1 of 2 - PCV) [facility] Start: 2006 COVID-19 Vaccine (1) COVID-19 Vaccine (1) [facility] Start: 2002 Dental Hygiene (Due every 6 months) Dental Hygiene (Due every 6 months) [facility] Start: 2002 Varicella vaccine (1 of 2 - 2-dose childhood series) Varicella vaccine (1 of 2 - 2-dose childhood series) [facility] Start: 2001 Dental Oral Exam Dental Oral Exam [facility] Start: 2001 Hepatitis C screening Hepatitis C screen [facility] Start: 2001 Screening for Chlamydia trachomatis GONORRHEA SCREEN [facility] End: 07-09-2021 Anti-Thyroglobulin Antibody [facility] Work Phone: Comment on above: Once for 1 Occurrences starting 07/10/19 until 07/09/2021 End: 01-26-2023 CBC W/AUTOMATED DIFF, REFLEX TO MANUAL CBC W/AUTOMATED DIFF, REFLEX TO MANUAL Lab Routine Iron deficiency One Time for 1 Occurrences starting 01/26/2023 until 01/26/2023 [facility] Work Phone: Comment on above: One Time for 1 Occurrences starting 01/11 until 01/26/2023 Excision excessive s kin & subq tissue other area EXCISION, SKIN AND SUBCUTANEOUS TISSUE Sebaceous cyst [facility] [place] End: 07-09-2021 [facility]: Comment on above: Once for 1 Occurrences starting 07/10/19 until 07/09/2021 End: 07-09-2021 Immunoglobulin G Subclasses [facility]: Comment on above: Once for 1 Occurrences starting 07/10/19 until 07/09/2021 End: 07-09-2021 Lymphocyte [facility]set [facility]: Comment on above: Once for 1 Occurrences starting 07/10/19 until 07/09/2021 Nasal/sinus ndsc w/partial ethmoidectomy ENDOSCOPY, NOSE, WITH ETHMOIDECTOMY Chronic sinusitis, unspecified location [facility] [place] Nsl/sinus ndsc max antrost w/rmvl tiss max sinus MAXILLARY ANTROSTOMY, WITH TISSUE REMOVAL Chronic sinusitis, unspecified location [facility] [place] End: 07-09-2021 Strep Pneumoniae Antibody Serotypes [facility] Phone: Comment on above: Once for 1 Occurrences starting 07/10/19 until 07/09/2021 Immunizations Immunization Date Immunization Notes Care Provider Josi [facility] 08-11-2022 hepatitis B vaccine, adult dosage Rubia Hernandez DIRECTOR TALENT MANAGEMENT Work Phone: [facility] 06-26-2022 hepatitis B vaccine, adult dosage Rubiasunny Finneypfer DIRECTOR TALENT MANAGEMENT Work Phone: [facility] 05-13-2022 tuberculin skin test ; purified protein derivative solution, intradermal Rubia Harrisfer DIRECTOR TALENT MANAGEMENT Work Phone: [facility] 04-30-2022 tuberculin skin test ; purified protein derivative solution, intradermal Rubia Finneypfer DIRECTOR TALENT MANAGEMENT Work Phone: [facility] 02-19-2022 influenza, injectabl e, quadrivalent, preservative free Rubiasunny Hernandez DIRECTOR TALENT MANAGEMENT Work Phone: [facility] 02-19-2022 influenza virus vacc ine, unspecified formulation Zhou Lee MD Work Phone: [facility] 02-15-2021 influenza, injectabl e, quadrivalent, preservative free Brielle Teran RN [facility] 02-15-2021 influenza, seasonal, injectable, preservative free Brielle Teran RN [facility] 02-15-2021 influenza virus vacc ine, unspecified formulation Brielle Teran RN [facility] 02-29-2020 influenza, injectabl e, quadrivalent, preservative free Rubia Kampfer DIRECTOR TALENT MANAGEMENT Work Phone: [facility] 02-21-2020 influenza, injectabl e, quadrivalent, preservative free Brielle Teran RN [facility] 04-29-2019 influenza, injectabl e, quadrivalent, preservative free Brielle Teran RN [facility] 10-25-2018 meningococcal oligosaccharide (groups A, C, Y and W-135) diphtheria toxoid conjugate vaccine (MCV4O) Brielle Teran RN [facility] 01-08-2018 influenza, injectabl e, quadrivalent, preservative free Brielle Teran RN [facility] 01-08-2018 influenza, seasonal, injectable, preservative free Rubia Kampfer DIRECTOR TALENT MANAGEMENT Work Phone: [facility] 11-20-2017 influenza virus vacc ine, live, attenuated, for intranasal use Brielle Teran RN [facility] 11-20-2017 influenza, live, intranasal, quadrivalent Rubia Kampfer DIRECTOR TALENT MANAGEMENT Work Phone: [facility] 02-04-2016 influenza, seasonal, injectable, preservative free Brielle Teran RN [facility] 06-11-2014 tuberculin skin test ; purified protein derivative solution, intradermal Otilia Sinclair Work Phone: [facility] 03-26-2014 influenza, seasonal, injectable, preservative free Brielle Teran RN [facility] 03-17-2014 influenza, seasonal, injectable, preservative free Rubia Kampfer DIRECTOR TALENT MANAGEMENT Work Phone: [facility] 10-20-2013 meningococcal polysaccharide (groups A, C, Y and W-135) diphtheria toxoid conjugate vaccine (MCV4P) Brielle Teran RN [facility] 10-20-2013 tetanus toxoid, redu rubina diphtheria toxoid, and acellular pertussis vaccine, adsorbed Brielle Teran RN [facility] 05-05-2013 influenza, injectabl e, quadrivalent, preservative free Brielle Teran RN [facility] 12-08-2006 diphtheria, tetanus toxoids and acellular pertussis vaccine Brielle Teran RN [facility] 12-08-2006 measles, mumps and rubella virus vaccine Brielle Teran RN [facility] 12-08-2006 poliovirus vaccine, inactivated Brielle Teran RN [facility] 01-17-2005 influenza, seasonal, injectable Brielle Teran RN [facility] 03-14-2003 influenza virus vacc ine, whole virus Rubia Hernandez DIRECTOR TALENT MANAGEMENT Work Phone: [facility] 03-14-2003 influenza, seasonal, injectable, preservative free Brielle Teran RN [facility] 03-14-2003 pneumococcal conjuga te vaccine, 7 valent Brielle Teran RN [facility] 02-10-2003 diphtheria, tetanus toxoids and pertussis vaccine Brielle Teran RN [facility] 02-10-2003 DTP Brielle Teran RN [facility] 02-10-2003 haemophilus influenz ae type b vaccine, PRP-T conjugate Brielle Teran RN [facility] 02-10-2003 influenza virus vacc ine, whole virus Rubia Hernandez DIRECTOR TALENT MANAGEMENT Work Phone: [facility] 02-10-2003 influenza, seasonal, injectable, preservative free Brielle Teran RN [facility] 02-10-2003 pneumococcal conjuga te vaccine, 7 valent Brielle Teran RN [facility] 11-07-2002 measles, mumps and rubella virus vaccine Brielle Teran RN [facility] 11-07-2002 varicella virus vaccine Brielle gilbert RN [facility] 11-07-2002 zoster vaccine, unspecified formulation Giovani Edmonds MD Work Phone: [facility] 06-01-2002 diphtheria, tetanus toxoids and acellular pertussis vaccine Brielle Teran RN [facility] 06-01-2002 haemophilus influenz ae type b conjugate and Hepatitis B vaccine Brielle Teran RN [facility] 06-01-2002 pneumococcal conjuga te vaccine, 7 valent Brielle Teran RN [facility] 06-01-2002 poliovirus vaccine, inactivated Brielle Teran RN [facility] 03-08-2002 diphtheria, tetanus toxoids and acellular pertussis vaccine Brielle Teran RN [facility] 03-08-2002 haemophilus influenz ae type b vaccine, PRP-T conjugate Brielle Teran RN [facility] 03-08-2002 pneumococcal conjuga te vaccine, 7 valent Brielle Teran RN [facility] 03-08-2002 poliovirus vaccine, inactivated Brielle Teran RN [facility] 01-04-2002 diphtheria, tetanus toxoids and acellular pertussis vaccine Brielle Teran RN [facility] 01-04-2002 haemophilus influenz ae type b vaccine, PRP-T conjugate Brielle Teran RN [facility] 01-04-2002 hepatitis B vaccine, pediatric or pediatric/adolescent dosage Brielle Teran RN [facility] 01-04-2002 poliovirus vaccine, inactivated Brielle Teran RN [facility] 2001 hepatitis B vaccine, pediatric or pediatric/adolescent dosage Brielle Teran RN [facility] Payers Date Payer Category Payer Self-pay [id number] 2023 Private Health Insurance [employer] [id number] 2023-Present [address] [place] [address] [id number] 2023 Medicaid [id number] .[id number] 2013 Unknown [id number]. 1.13.161.2.7 .3.348808.315 2001 Unknown [id number] 2.16.840.1.015419.3.579.2.1 75 2001 Unknown [id number] 2.16.840.1.082270.3.579.2.1 75 2001 Unknown [id number] 2.16.840.1.273058.3.579.2.5 93 2001 Unknown [id number] 2.16.840.1.552772.3.579.2.5 93 2001 Unknown [id number] 2.16.840.1.139447.3.579.2.5 93 2001 Unknown [id number] 2.16.840.1.044146.3.579.2.1 286 2001 Unknown [id number] 2.16.840.1.994368.3.579.2.1 286 2001 Unknown [id number] 2.16.840.1.593246.3.579.2.1 286 2001 Unknown [id number] 2.16.840.1.308122.3.579.2.1 286 2001 Unknown [id number] 2.16.840.1.390621.3.579.2.4 30 2001 Unknown [id number] 2.16.840.1.023011.3.579.2.4 30 2001 Unknown [id number] 2.16.840.1.158148.3.579.2.4 30 2001 Unknown [id number] 2.16.840.1.431875.3.579.2.4 30 2001 Unknown [id number] 2.16.840.1.714901.3.579.2.4 30 2001 Unknown [id number] 2.16.840.1.424789.3.579.2.4 30 2001 Unknown [id number] 2.16.840.1.149881.3.579.2.1 259 2001 Unknown [id number] 2.16.840.1.338780.3.579.2.1 259 2001 Unknown [id number] 2.16.840.1.504210.3.579.2.1 259 2001 Unknown [id number] 2.16.840.1.114030.3.579.2.1 259 2001 Unknown [id number] 2.16.840.1.837422.3.579.2.1 259 2001 Unknown [id number] 2.16.840.1.135241.3.579.2.1 259 2001 Unknown [id number] 2.16.840.1.531194.3.579.2.1 259 2001 Unknown [id number] 2.16.840.1.983038.3.579.2.1 259 2001 Unknown [id number] 2.16.840.1.938526.3.579.2.1 259 2001 Unknown [id number] 2.16.840.1.288196.3.579.2.1 259 2001 Unknown [id number] 2.16.840.1.502848.3.579.2.1 259 2001 Unknown [id number] 2.16.840.1.359766.3.579.2.1 259 2001 Unknown [id number] 2.16.840.1.550916.3.579.2.1 259 2001 Unknown [id number] 2.16.840.1.105557.3.579.2.1 259 2001 Unknown [id number] 2.16.840.1.889585.3.579.2.1 259 2001 Unknown [id number] 2.16.840.1.813745.3.579.2.1 259 2001 Unknown [id number] 2.16.840.1.758795.3.579.2.1 259 2001 Unknown [id number] 2.16.840.1.979529.3.579.2.1 259 2001 Unknown [id number] 2.16.840.1.286034.3.579.2.1 259 2001 Unknown [id number] 2.16.840.1.433207.3.579.2.1 259 2001 Unknown [id number] 2.16.840.1.552150.3.579.2.1 259 2001 Unknown [id number] 2.16.840.1.577207.3.579.2.1 259 2001 Unknown [id number] 2.16.840.1.700780.3.579.2.1 259 2001 Unknown [id number] 2.16.840.1.885811.3.579.2.1 259 2001 Unknown [id number] 2.16.840.1.850761.3.579.2.1 259 2001 Unknown [id number] 2.16.840.1.271120.3.579.2.1 259 2001 Unknown [id number] 2.16.840.1.862536.3.579.2.1 259 2001 Unknown [id number] 2.16.840.1.923210.3.579.2.1 259 2001 Unknown [id number] 2.16.840.1.335004.3.579.2.1 259 2001 Unknown [id number] 2.16.840.1.634758.3.579.2.1 259 2001 Unknown [id number] 2.16.840.1.740771.3.579.2.1 259 2001 Unknown [id number] 2.16.840.1.235570.3.579.2.1 259 2001 Unknown [id number] 2.16.840.1.077605.3.579.2.5 94 2001 Unknown [id number] 2.16.840.1.106328.3.579.2.5 94 2001 Unknown [id number] 2.16.840.1.015571.3.579.2.5 94 2001 Unknown [id number] 2.16.840.1.862984.3.579.2.5 94 2001 Unknown [id number] 2.16.840.1.282339.3.579.2.5 94 2001 Unknown [id number] 2.16.840.1.363232.3.579.2.5 94 2001 Unknown [id number] 2.16.840.1.523878.3.579.2.5 94 2001 Unknown [id number] 2.16.840.1.650767.3.579.2.5 94 2001 Unknown [id number] 2.16.840.1.409063.3.579.2.5 94 2001 Unknown [id number] 2.16.840.1.465752.3.579.2.5 94 1959 Unknown [id number] 1.2.840.467337.1.13.239.2.7 .3.413004.315 1959 Unknown [id number] 1.2.840.126584.1.13.239.2.7 .3.506288.315 Unknown [id number] 2.16.840.1.064257.3.579.2.5 31 Social History Date Type Detail Facility Start: 09-11-2011 End: 02-25-2023 Tobacco smoking status [facility] Never smoked tobacco [employer] Phone: Start: 07-26-2014 Alcohol intake Current non-dr timber packer of alcohol (finding) [employer] Phone: Start: 2001 [facility] Start: 02-28-2022 End: 02-25-2023 Tobacco use and exposure Smokeless tobacco non-user [facility] Start: 03-21-2022 End: 09-01-2023 Alcohol intake Ex-drinker (finding) [facility] Start: 03-21-2022 End: 09-01-[address] [facility] Start: 08-26-2021 History SDOH Financial [address] [facility] Start: 08-26-2021 History SDOH Food Worry [address] [facility] Start: 08-26-2021 History SDOH Transport Med [address] [facility] Start: 05-17-2016 End: 09-01-[address] [facility] How hard is it for you to pay for the very basics like food, housing, medical care, and heating Not hard at all [facility] (I/We) worried whether (my/our) food would run out before (I/we) got money to buy more. Never true [facility] In the past 12 months, was there a time when you were not able to pay the mortgage or rent on time? No [facility] Start: 12-22-2022 [facility] Are you now , , , , [...] 05-26-2023 Alcohol Comment caffeine intake : NO [facility] Start: 2001 Sex Assigned At Female F [facility] NEGATED: Highlighted rowStart: SAMMIEF History of tobacco use Passive smoker [facility] Medical Equipment Procedure Code Equipment Code Equipment Origin al Text Equipment Identifier Dates [employer]urg[employer] [id number]_[facility] Start: 07-23-2015 Comment on above: Description: Teresa Richmond Ss Ta 90-3.5 - [id number]_[facility] Start: 03-21-2016 [employer] Floseal 5ml - [id number] Start: 06-11-2018 Comment on above: Description: Sinus [...] and treatment Crohn's Disease - diagnosed at [facility] 2011. Therapy has included 6MP, infliximab, stopped due to severe scalp psoriasis), vedolizumab, ustekinumab, adalimumab. She underwent ileocecal resection in 03/2016. Most recent colonoscopy was in 2019. 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 See imaging and biopsy results below. Therapy has included methylprednisolone pulses, methotrexate [id number] (with interruptions; stopped due to inefficacy and frequent infections), rituximab x 2 11/2016, 11/2017, 12/2018, 01/2020, 01/2021, 12/2021. Difficult course with multiple admissions for management of this problem. Psoriasis - diagnosed at [facility] - developed psoriasis of scalp while taking infliximab Hidradenitis suppurativa - diagnosed at [facility]; primarily treated with topical therapies. Pulmonary nodules [...] tight but is not painful. Current providers: COMMUNITY DEVELOPMENT SPECIALIST: Alfredo Duong CNM MFM: Dr. Ruchi Carmona Pulmonary: Dr. Xiomara Zurita IBD: Teresa Peterson ENT: Dr. Lee at [facility] Ophtho: need to confirm Does not have [...] viral inclusions seen. IMAGING MRI orbits 07/31/2014 ([facility]): TECHNICAL COMMENTS Contrast Type: Optiray 320 Contrast [...] is noted. This is best seen on senior care manager CT of the brain as the contrast [...] ABDOMEN: Grossly normal. CT chest no contrast [facility] 04/19/2020 REASON FOR EXAM: immune suppression, patient [...] nodules as described above. Bone density 09/16/2018 ([facility]) normal for debo Assessment: [place] is [...] visit need to confirm primary care provider, stockroom helper Follow up: I will see her for a 6 week video visit - she was instructed to contact me sooner if problems Addendum: External ultrasound of doppler of LLE was negative for DVT documented in this encounter [facility] 08-06-2023 Instructions Velia Yo MD - 08/06/2023 12:00 PM EDT Nice to see you today! Please have ultrasound done of left leg within 24 hours either at [facility] or [facility] documented in this encounter [facility] 08-06-2023 History of Present illness Narrative [...] told Crohn's moved to mouth. Went to [facility] and this stopped working. On Rituximab for [...] surgical history: Ileocectomy 2015 Current therapy: Stelara [id number] Past therapy: Infliximab(stopped due to severe scalp [...] Resource Strain: Low Risk (02/09/2023) Received from [facility] Overall Financial Resource Strain (CARDIA) Difficulty of Paying Living Expenses: Not hard at all Food Insecurity: No Food Insecurity (04/24/2023) Received from [facility] Hunger Screening Within the past 12 months we worried whether our food would run out before we got money to buy more.: Never True Within the past 12 months the food we bought just didn't last and we didn't have money to get more.: Never True Transportation Needs: No Transportation Needs (02/09/2023) Received from [facility] PRAPARE - Transportation Lack of Transportation (Medical): No Lack of Transportation (Non-Medical): No Physical Activity: Sufficiently Active (02/09/2023) Received from [facility] Exercise Vital Sign Days of Exercise per Week: 6 days Minutes of Exercise per Session: 40 min Stress: No Stress Concern Present (02/09/2023) Received from [facility] [place] [employer] - Occupational Stress Questionnaire Feeling of Stress : Not at all Social Connections: Moderately Isolated (02/09/2023) Received from [facility] Social Connection and Isolation Panel [NHANES] Frequency of Communication with Friends and Family: More than three times a week Frequency of Social Gatherings with Friends and Family: Twice a week Attends Zoroastrianism Services: Never Active Member of Clubs or Organizations: No Attends Club or Organization Meetings: Never Marital Status: Living with partner Intimate Partner Violence: Not At Risk (02/09/2023) Received from [facility] Humiliation, Afraid, Rape, and Kick questionnaire Fear of Current or Ex-Partner: No Emotionally Abused: No Physically Abused: No Sexually Abused: No Housing Stability: Low Risk (02/09/2023) Received from [facility] Housing Stability Vital Sign Unable to Pay [...] studies were reviewed in [facility] IMPRESSION: Kings Hatfield is a 22 y.o. female w/ PMH Ileocolonic Crohn's disease s/p ileocectomy 2016 on Stelara [id number], orbital myositits, psoriasis, chronic sinusitis here to [...] name and . documented in this encounter [facility] 08-06-2023 Instructions DANIKA Cornelius - 08/06/2023 10:00 AM EDT - Continue Stelara every 8 weeks - Baby no live vaccines for 6 months (rotavirus) - Stool calprotectin - Will follow up with Rheumatology for orbital myositis - Will obtain colonoscopy next March - RTC 3 months documented in this encounter [facility] 04-24-2023 History of Present illness Narrative Headache/epigastric pain/blurry vision/swelling? No Cramping/contractions? No Abnormal vaginal discharge? No Spotting/vaginal bleeding? No Loss of fluid like your water may have broken? No Cats in the home? No Do you change the litter box? N/A Flu vaccine? No Genetic testing done this here or other office?Yes Have you been seen here at [facility] in a previous ? No Recent ER visits or hospitalizations? No Bring blood sugar log or meter with you today? (Please bring them with you for every visit at [facility]) N/A Traveled outside the country in the past 6 month No Any concerns that you would like me to mention to the provider today? No [facility] Consult Note Reason For Consult: HPI: Kings Hatfield is a 22 y.o. @ 19w4d who presented for consultation from Alfredo Fortune APRN-CNM regarding Chief Complaint Patient presents with HX Colitis Crohn's Disease She reports that she is doing well. She reports normal movements and she denies LOF, contractions, vaginal bleeding, headache, blurry vision, RUQ pain and edema. The primary encounter diagnosis was Maternal Crohn's disease affecting in second trimester ([facility]). Diagnoses of History of chronic ulcerative colitis and 19 weeks gestation of were also pertinent to this visit. She has had low risk aneuploidy screen for select aneuploidy of chromosomes 21, 13, 18 and sex chromosomes. Review of systems: Review of systems was noncontributory Complications: Problem List Items Addressed This Visit None Visit Diagnoses Maternal Crohn's disease affecting in second trimester ([facility]) - Primary History of chronic ulcerative colitis 19 weeks gestation of PMH: Past Medical History: Diagnosis Date Anemia Crohn's disease ([facility]) GERD (gastroesophageal reflux disease) Myositis [...] on file Physical Exam: Vital Signs Vitals: 01/12/24 1359 BP: 106/68 Pulse: 81 Height: 160 [...] Maternal Crohn's disease affecting in second trimester ([facility]) 2. History of chronic ulcerative [...] Crohn's disease s/p ileocectomy 2016 on Stelara [id number], orbital myositits, psoriasis, chronic sinusitis Per gastroenterology: PLAN/RECOMMENDATIONS: -Chem 6 and LFT's ordered -CRP and stool calprotectin -Quantiferon TB, TPMT and chronic hepatitis panel ordered -Some nutrition labs ordered -UST level ordered -Continue Stelara every 8 weeks. Will plan for Stelara to be given 8 weeks or so prior to delivery and then shortly after. Following with higher education administrator -Will follow up with Rheumatology for orbital [...] Maternal Crohn's disease affecting in second trimester ([facility]) [O99.612, K50.90] Recommendations: Follow-up detailed [...] continue with routine care in your office [facility], the CDC, and other organizations representing maternal and public health professionals recommend that , , and lactating people and those considering receive the COVID-19 vaccination. Vaccination is the best method to reduce maternal and complications of SARS-CoV-2 infection. This document was created with [employer] technology. Though I make every effort to review the dictation as it is transcribed, on occasion the spoken word can be misinterpreted by the technology leading to inappropriate words, phrases, or sentences. This note is addressed to the requesting provider as a consultation for clinical guidance. Specific medical abbreviations are occasionally used and those are generally approved by the [place]?Board of?Obstetrics and?Gynecology?as well as?Earle knight abbreviations. The above plan of care was based solely on the diagnoses for which a consultation was requested. ?More frequent testing may be indicated based on her other medical/obstetrical conditions. The management of other or medical conditions is beyond the scope of requested consultation and will continue to be followed by the primary medical technologist chief or primary care provider. Thank you for [...] procedures Referring and communicating with other health early breastfeeding care specialist (not separately reported) Documenting clinical information in the electronic or other health record Independently interpreting results (not separately reported) and communicating results to the patient/family/caregiver Care coordination (not separately reported) documented in this encounter [facility] 04-03-2023 History of Present illness Narrative MA to room to draw Anser UST- red serum tube Pt identified with name and 1 attempt made in right Antecubital fossa- success Excessive Bleeding or Bruising at draw site: no documented in this encounter [facility] 03-03-2023 Telephone encounter Note Noted. Thanks Ella [facility] 03-03-2023 Miscellaneous Notes Noted. Pete Jaramillo Spoke with Kings. She has established care w/[facility]. She has appoints (at [facility]) in March and April. King placed on chart. documented in this encounter [facility] 03-03-2023 Telephone encounter Note Spoke with Kings. She has established care w/[facility]. She has appoints (at [facility]) in March and April. King placed on chart. [facility] 02-25-2023 History of Present illness Narrative [...] told Crohn's moved to mouth. Went to [facility] and this stopped working. On Rituximab for [...] IBD history Diagnosed (age): 10 Disease distribution: [place] Classification: CD: A1 <16, L3 ileocolonic GI surgical history: Ileocectomy 2016 Current therapy: Stelara [id number] Past therapy: Infliximab(stopped due to severe scalp [...] studies were reviewed in [facility] IMPRESSION: Kings Hatfield is a 22 y.o. female w/ PMH Ileocolonic Crohn's disease s/p ileocectomy 2016 on Stelara q3osntc, orbital myositits, psoriasis, chronic sinusitis here to [...] delivery and then shortly after. Following with higher education administrator -Will follow up with Rheumatology for orbital [...] MD Division of Gastroenterology, Hepatology, and Nutrition Pager:[phone] This MA verified patients name and . documented in this encounter [facility] 02-25-2023 Instructions Giovani Edmonds MD - 02/25/2023 1:00 PM EST Thank you for coming to [facility] Gastroenterology, Hepatology, and Nutrition. It was a [...] will either call you, send you a ustyme message, or mail you a letter with the results of your tests within 1-2 weeks after you have completed your tests. If you do not hear from our office, please call the clinic to receive your results at [phone]. If you need to fax old records in, please fax to [phone]. --------- If you have any concerning symptoms, please seek immediate medical attention. documented in this encounter [facility] 01-26-2023 Hospital Discharge instructions Zhou Aly MD - 01/26/2023 11:16 AM EDT It was a pleasure seeing Kings today. Have a ferritin checked in 3-4 months to ensure no need for iron infusion. We will work on finding an adult Hot Iron Worker to follow with at [facility]. Hematology Clinic Patient Instructions Please call if you have any questions or concerns about your child's care during the hours of 8-5 Thursday through Thursday. After 5PM on weekdays or on weekends please call the hospital perforator operator and ask for the hse coordinator construction laborer. documented in this encounter [facility] 01-26-2023 History of Present illness Narrative Informant: self mother Patient is a 22yo her for f/u recurrent sinusitis. History turbs and sinus surgery 03/20/22. Doing well. [facility] PEDIATRIC OTOLARYNGOLOGY FOLLOW UP VISIT NOTE Chey Aragon MD [address] [place] [address] Kings Hatfield is a 22 year female [...] Labs: None Outside medical record review: None [facility] chart review: Previous ENT notes reviewed Discussion [...] OPTIONS: F/U PRN documented in this encounter [facility] 01-26-2023 Instructions Milind Suazo RN - 01/26/2023 10:00 AM EDT You do not need to schedule an ENT office visit at this time but we are happy to see you in the future for any additional ENT concerns. Please call Central Scheduling at [phone] and follow the prompts to schedule an ENT office visit should you need a future appointment in the ENT clinic. Call us at [phone] to speak to a nurse if you should have any additional ENT- related questions or concerns after today s visit. Department of Otolaryngology (ENT) Patient Instructions ENT Nurse Triage Line: [phone] (Thursday through Thursday 8:00 am - 4:00 pm) Please call the ENT Nurse Triage Line if you need to speak to a nurse for any ENT- related medical concerns prior to your next appointment. [facility] Customer Program Specialist: [phone] (Weekdays after 4:00 pm and on Weekends) If you have urgent ENT concerns for your child after hours that can t wait until our return to the office, please call the hospital perforator operator and ask to speak to the ENT physician construction laborer. [facility] Central [phone] (Thursday through Thursday 7:30 am -5:30 pm) Please call Central Scheduling and follow the prompts to schedule an ENT appointment if you did not schedule an appointment today, or if you need to cancel and reschedule a future appointment. For more information about the Department of Otolaryngology (Ear, Nose and Throat) at [facility], please visit our website at: [email or web address] documented in this encounter [facility] 01-26-2023 History of Present illness Narrative [...] bursitis. She had an adjustment with an school athletic director. She has been given stretches. She uses KT tape. She has the most difficulty with sleep. Ice helps on occasion. She is 7 weeks . She has an appointment with a higher education administrator/GYN in the next couple of weeks. She [...] Latest Reference Range & Units Most Recent (1,3)-DHNB-U-PUICWJ pg/mL <31 04/15/19 21:20 (1,3)-CRRO-B-CGNJJK INTERP Negative Negative 04/15/19 21:20 ALBUMIN, CSF [...] AB TITER (IFA) NEG^Negative Negative 08/07/14 05:48 TOMY-PLATE DRILLER NEG^Negative Negative 08/07/14 05:48 TOMY-SM NEG^Negative Negative [...] FESS changes, with improved aeration compared to 2019. Moderate residual inflammation involves the atelectatic right [...] appropriate to have her see an adult c web developer in the case of a flare as [...] with Dr. Yo documented in this encounter [facility] 01-26-2023 Instructions Ioana Otero MD - [...] to reach Rheumatology 1. Sign up for [employer] to use a secure e-mail system for non-urgent issues (this is NOT checked on weekends). 2. For medical questions between 8 am - 4 pm, call our nurse line at [phone] option 2. 3. For medical questions at night, over the weekend or a holiday, call the hospital perforator operator at [phone] and ask to talk to the Aerophysics Engineer. 4. To schedule or change an appointment, call Central Scheduling at [phone], press option 4, then option 7. 5. For other nonmedical questions, call a secretary specialist at [phone], option 4. 6. If you cannot reach a person and need information the same day, call the hospital perforator operator at [phone] and ask to talk to the Aerophysics Engineer construction laborer. documented in this encounter [facility] 01-21-2023 Telephone encounter Note Received fax from [facility]. Printed and placed on Dr. Otero's door for review and/or signature. [facility] 01-21-2023 Miscellaneous Notes Received fax from [facility]. Printed and placed on Dr. Otero's door for review and/or signature. documented in this encounter [facility] 01-09-2023 Telephone encounter Note Pharmacy Note Reviewed medications for risk: -Rituximab: last dose received 01/2022. Will review registry data with primary rheumatology team. Per ACR guidelines, risk of B cell depletion if dosed in second half of . -Stela (managed by GI): Dr. Slater recommended continuing with the January dose. Plans to then transition to adult solar project manager [facility] 01-09-2023 Miscellaneous Notes Pharmacy Note Reviewed medications for risk: -Rituximab: last dose received 01/2022. Will review registry data with primary rheumatology team. Per ACR guidelines, risk of B cell depletion if dosed in second half of . -Jaylanla (managed by GI): Dr. Slater recommended continuing with the January dose. Plans to then transition to adult solar project manager Received incoming call that Kings is . Diagnosis Orbital myositis Primary Aerophysics Engineer Ioana Otero How did patient find out about Home test Date of last menses 12/08/2022 Last dose of each teratogenic medication (methotrexate, leflunomide, cyclophosphamide, NSAID, ACEi) N/a - no recent NSAID's Do you have appt with COMMUNITY DEVELOPMENT SPECIALIST? Yes, date of appt 02/04/2023 If underage, is family aware? N/A - mom is aware Best phone number for follow up [phone] Is it okay to leave message on preferred phone? Yes Recommendations for patient: 1. Hold teratogenic medication (methotrexate, leflunomide, cyclophosphamide, NSAID, ACEi) 2. Do not stop hydroxychloroquine or prednisone (if applicable) 3. Start vitamin 4. Follow up with other prescribers/clinics to evaluate non-rheumatology medications Recommendation for nurses: Notify team : Primary c web developer, Velia Hernandes Recommendations for providers: 1. Order serum test, if needed 2. Further evaluate current medications 3. Refer to [facility], if needed 4. Follow up with patient within 24 hours Patient is in the process of informing all [facility] specialists. She has talked to GI and received guidance. She is taking a vitamin. Ideally Kings would like to keep her October follow-ups here at [facility] and then transition to adult rheum/GI closer to home. Dr. Otero/Geovanna please advise documented in this encounter [facility] 01-09-2023 Telephone encounter Note Received incoming call that Kings is . Diagnosis Orbital myositis Primary Aerophysics Engineer Ioana Otero How did patient find out about Home test Date of last menses 12/08/2022 Last dose of each teratogenic medication (methotrexate, leflunomide, cyclophosphamide, NSAID, ACEi) N/a - no recent NSAID's Do you have appt with COMMUNITY DEVELOPMENT SPECIALIST? Yes, date of appt 02/04/2023 If underage, is family aware? N/A - mom is aware Best phone number for follow up [phone] Is it okay to leave message on preferred phone? Yes Recommendations for patient: 1. Hold teratogenic medication (methotrexate, leflunomide, cyclophosphamide, NSAID, ACEi) 2. Do not stop hydroxychloroquine or prednisone (if applicable) 3. Start vitamin 4. Follow up with other prescribers/clinics to evaluate non-rheumatology medications Recommendation for nurses: Notify team : Primary c web developer, Velia Hernandes Recommendations for providers: 1. Order serum test, if needed 2. Further evaluate current medications 3. Refer to [facility], if needed 4. Follow up with patient within 24 hours Patient is in the process of informing all [facility] specialists. She has talked to GI and received guidance. She is taking a vitamin. Ideally Kings would like to keep her October follow-ups here at [facility] and then transition to adult rheum/GI closer to home. Dr. Otero/Geovanna please advise [facility] 12-26-2022 Telephone encounter Note TP updated, flagged ready for PA. [facility] 12-26-2022 Miscellaneous Notes TP updated, flagged ready for PA. Rituximab added back into the therapy plan. Informed by Geovanna Centeno with SP that Ritux no longer in TP. Dr. Otero please re-add medication/update TP, and inform nursing when complete. Then will update SP to re-PA. Thank you! Sent referral back to Pharmacy PA for Infusions Team via W to be re-authorized. Dr. Otero FYI only [...] needed. Thank you! documented in this encounter [facility] 12-26-2022 Telephone encounter Note Rituximab added back into the therapy plan. [facility] Work Phone: 12-23-2022 Telephone encounter Note Signed. Thank you. [facility] 12-23-2022 Miscellaneous Notes Signed. Thank you. Stelara refill request received from pharmacy. Pended for review. OV scheduled for 02/18/23. Labs recently ordered to be obtained before the visit. documented in this encounter [facility] 12-23-2022 Telephone encounter Note Stelara refill request received from pharmacy. Pended for review. OV scheduled for 02/18/23. Labs recently ordered to be obtained before the visit. [facility] 12-19-2022 Telephone encounter Note Informed by Geovanna Centeno with SP that Ritux no longer in TP. Dr. Otero please re-add medication/update TP, and inform nursing when complete. Then will update SP to re-PA. Thank you! [facility] 12-19-2022 Telephone encounter Note Sent referral back to Pharmacy PA for Infusions Team via WQ to be re-authorized. Dr. Otero FYI only (nothing needed from you at this time- will alert you with any issues with the PA) [facility] 12-18-2022 History of Present illness Narrative Prior Authorization for Specialty Medication Clinic: GI Diagnosis: K50.819 - Crohns Medication name: Stelara Medication dose: 90mg Medication frequency: Every 8 weeks Reason for PA: Sue Rogers's Prior Authorization has been APPROVED. Insurance #1: [employer] PA Type: Pharmacy PA Status: Approved Approved from: 12/18/22 Approved to: 12/18/23 PA #: [id number] Filling Pharmacy: Other ([facility]) Prior Authorization for Specialty Medication Clinic: GI Diagnosis: K50.819 - Crohns Medication name: Stelara Medication dose: 90mg Medication frequency: Every 8 weeks Reason for PA: Sue Rogers'antonia Prior Authorization has been SUBMITTED. Insurance #1: [employer] PA Type: Pharmacy PA Status: Submitted Information submitted: Office Note Method of submission : CoverMyMeds documented in this encounter [facility] 12-17-2022 Telephone encounter Note Per encounter [...] SP to PA if needed. Thank you! [facility] 11-21-2022 Telephone encounter Note Pt called to change yearly followup appointment to a different day in order to line up with other appointments due to having a long commute. Pt rescheduled for 01/[address] Aly. [facility] 11-21-2022 Miscellaneous Notes Pt called to change yearly followup appointment to a different day in order to line up with other appointments due to having a long commute. Pt rescheduled for 01/[address] Aly. documented in this encounter [facility] 09-24-2022 Telephone encounter Note Patient called back to schedule 01-05-23 elissa lee, post op made, pt aware of pat call [facility] Work Phone: 09-24-2022 Miscellaneous Notes Patient called back to schedule 01-05-23 elissa lee, post op made, pt aware of pat call documented in this encounter [facility] 09-04-2022 History of Present illness Narrative Per [facility] Letter #9, [facility] requested clinicals be sent. Clinicals sent via fax on 09.03.2022. documented in this encounter [facility] 07-16-2022 History of Present illness Narrative Faxed [facility] reapplication to [phone]. Scanned into the chart. documented in this encounter [facility] 05-05-2022 History of Present illness Narrative Chey Aragon MD [address] [place] [address] 21 year old female here today for post op. 03/20/2022 Turbinate and sinus surgery. Saline rinses and flonase prn. No new concerns. [facility] PEDIATRIC OTOLARYNGOLOGY FOLLOW UP VISIT NOTE Chey Aragon MD [address] [place] [address] Kings Hatfield is a 21 year female [...] Labs: None Outside medical record review: None [facility] chart review: Previous ENT notes reviewed Discussion [...] OPTIONS: F/U PRN documented in this encounter [facility] 05-05-2022 Instructions Yoana Farrar RN - 05/05/2022 11:30 AM EST Department of Otolaryngology (ENT) Patient Instructions ENT Nurse Triage Line: [phone] (Thursday through Thursday 8:00 am - 4:00 pm) Please call the ENT Nurse Triage Line if you need to speak to a nurse for any ENT- related medical concerns prior to your next appointment. [facility] Customer Program Specialist: [phone] (Weekdays after 4:00 pm and on Weekends) If you have urgent ENT concerns for your child after hours that can t wait until our return to the office, please call the hospital perforator operator and ask to speak to the ENT physician construction laborer. [facility] Central [phone] (Thursday through Thursday 7:30 am -5:30 pm) Please call Central Scheduling and follow the prompts to schedule an ENT appointment if you did not schedule an appointment today, or if you need to cancel and reschedule a future appointment. For more information about the Department of Otolaryngology (Ear, Nose and Throat) at [facility], please visit our website at: [email or web address] You do not need to schedule an ENT office visit at this time but we are happy to see you in the future for any additional ENT concerns. Please call Central Scheduling at [phone] and follow the prompts to schedule an ENT office visit should you need a future appointment in the ENT clinic. Call us at [phone] to speak to a nurse if you should have any additional ENT- related questions or concerns after today s visit. documented in this encounter [facility] 04-08-2022 Telephone encounter Note Telephone Follow-Up [...] parents / patient has concerns: No concerns [facility] 12-27-2022 Miscellaneous Notes Telephone Follow-Up Excision of Soft [...] concerns: No concerns documented in this encounter [facility] 03-18-2022 Telephone encounter Note Status denied. A possible peer to peer review with ENT is possible. Awaiting to hear from them [facility] 03-18-2022 Miscellaneous Notes Status denied. A possible peer to peer review with ENT is possible. Awaiting to hear from them Status checked at this time, denied Submitted appeal, ID is [id number] Received denial on [employer] web portal. Spoke with architectural representative on the phone and was told to fax clinicals for reconsideration. Clinicals faxed to [phone]. Authorization pending via [employer] portal. Pediatric Surgery Pre-Schedule/Certification Information Patient Information: Name: Kings Hatfield Date of : 2000 Case and Schedule Information: Surgeon: Dr. Lakisha Narayan Case: ENT Admit Type: OP Location: OR CPT: 76435 Procedure or Exam Description: EXCISION OF SKIN AND SUBCUTANEOUS TISSUE ICD10 Code: L 72.3 Scheduled Date: 03/20/22 documented in this encounter [facility] 03-14-2022 Telephone encounter Note Status checked at this time, denied Submitted appeal, ID is [id number] [facility] 03-11-2022 Telephone encounter Note Received denial on [employer] portal. Spoke with architectural representative on the phone and was told to fax clinicals for reconsideration. Clinicals faxed to [phone]. [facility] 02-27-2022 Telephone encounter Note Authorization pending via [employer] portal. [facility] 02-06-2022 Telephone encounter Note Pediatric Surgery Pre-Schedule/Certification Information Patient Information: Name: Kings Hatfield Date of : 2000 Case and Schedule Information: Surgeon: Dr. Lakisha Narayan Case: ENT Admit Type: OP Location: OR CPT: 06339 Procedure or Exam Description: EXCISION OF SKIN AND SUBCUTANEOUS TISSUE ICD10 Code: L 72.3 Scheduled Date: 03/20/[address] [facility] 08-06-2021 Note HISTORY: Eye swellin g PROCEDURE: Hello Agent VCT 64. Without IV contrast, images of [...] Pansinusitis. Report reported and signed by Herbie Paec on 08/06/2021 1523 [facility] Account Development Associate Evaluation note Diagnosis Orbital myositis, unspecified laterality- Primary Chronic sinusitis, unspecified location [facility] Diagnosis Chronic sinusitis, unspecified location- Primary [facility] Diagnosis Iron deficiency Other disorders of iron metabolism [facility] Diagnosis Orbital myositis, unspecified laterality- Primary Crohn's disease of small and large intestines with complication Immunosuppressed status Unspecified disorder of immune mechanism Chronic pansinusitis Other chronic sinusitis Pulmonary nodules Other nonspecific abnormal finding of lung field Psoriasis Other psoriasis Less than 8 weeks gestation of state, incidental [facility] Diagnosis Crohn's disease of both small and large intestine with complication- Primary Regional enteritis of small intestine with large intestine Orbital myositis, unspecified laterality 11 weeks gestation of state, incidental [facility] Diagnosis Crohn's disease of both small and large intestine with complication- Primary Regional enteritis of small intestine with large intestine [facility] Diagnosis Maternal Crohn's disease affecting in second trimester ([facility])- Primary History of chronic ulcerative colitis 19 weeks gestation of 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 Diagnosis Orbital myositis, unspecified laterality- Primary Crohn's disease of small and large intestines with complication Immunosuppressed status Unspecified disorder of immune mechanism Chronic pansinusitis Other chronic sinusitis Pulmonary nodules Other nonspecific abnormal finding of lung field Psoriasis Other psoriasis Less than 8 weeks gestation of state, incidental Left leg swelling Psoriasis of scalp Other psoriasis documented in this encounter [facility] assessment information available [facility] Work Phone: History of Present illness Narrative* Rubia Hernandez, DIRECTOR TALENT MANAGEMENT - 05/26/2023 7:30 PM ESTAssociated Order(s): Ear Cerumen Removal Post-Procedure Diagnose(s): Bilateral impacted cerumen [place] is a 22 y.o. female presents with chief complaint of Earache HPI: Patient is here for earache. 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 [facility] SystemInstructionsNot on filedocumented in this encounterSt. [facility] of God [facility] SystemInstructionsNot on filedocumented in this encounterBlanchard Valley Health SystemReason for referral (narrative)* Consultation (Routine) - New Request Specialty Diagnoses / Procedures Referred By Wayne liz Referred To Contact Rheumatology Diagnoses Orbital myositis, unspecified laterality Crohn's disease of small and large intestines with complication Immunosuppressed status Chronic pansinusitis Pulmonary nodules Psoriasis Less than 8 weeks gestation of Ioana Otero MD [address] [place] [phone] Referral ID Status Reason Start Date Expiration Date Visits Requested Visits Authorized [id number] New Request Specialty Services Required [address] [facility] for visit Narrative* Treatment Plan and Therapy Plan (Routine) - Authorized Specialty Diagnoses / Procedures Referred By Wayne liz Referred To Contact Diagnoses Crohn's disease of both small and large intestine with complication (HCC) Procedures AK GAMUNEX-C/GAMMAShakira Trent MD [address] [facility] [address] [place] [address] [facility] [place] [address] Referral ID Status Reason Start Date Expiration Date V isits Requested Visits Authorized [id number] Authorized 08/09/2021 09/08/2021 1 1 [employer] Phone: Summary Purpose Family History No Family History Records FoundNo Family History Records FoundNo Family History Records FoundNo Family History Records FoundNo Family History Records FoundNo Family History Records FoundNo Family History Records FoundNo Family History Records FoundNo Family History Records Found Advance Directives No Advanced Directives Records FoundDocuments on File Type Date Recorded Patient Surveyor Instrument Assistant Expl anation ACP-Advance Directive ACP-Power of Beverage Manager Latest Code Status on File Code Status Date Activated Date Inactivated Comments Full Code 07/26/2014 11:40 PM 07/28/2014 10:19 PM Full Code 07/19/2014 7:32 PM 07/25/2014 8:24 PM Full Code 07/02/2014 7:22 PM 07/07/2014 12:22 PM Full Code 04/20/2014 11:13 AM 04/26/2014 3:37 PM Full Code 03/24/2014 7:43 PM 03/25/2014 12:50 PM Documents on File Type Date Recorded Patient Surveyor Instrument Assistant Expl anation ACP-Advance Directive ACP-Power of Beverage Manager Latest Code Status on File Code Status [...] Oncology Clinic Appointment Request Ny Cool APN [address] [facility] [place] [address] Referral ID Status Reason Start Date Expiration Date Visits Requested Visits Authorized [id number] Authorization Not Required 3 1 1 Specialty Diagnoses / Procedures Referred By Contac t Referred To Contact Maternal and Medicine Diagnoses Maternal Crohn's disease affecting in second trimester ([facility]) History of chronic ulcerative colitis Procedures US MFM with or without consult Ruchi Carmona MD [address], [place] [address] [facility] Maternal Med [address] [place] [address] Referral ID Status Reason Start Date Expiration Date V isits Requested Visits Authorized [id number] Pending Review 06/01/2023 05/31/2024 1 1 Specialty Diagnoses / Procedures Referred By Wayne liz Referred To Contact Diagnoses Left leg swelling Procedures VASC DUPLEX VENOUS EXTREMITY LOWER LEFT AK DUPLEX EXTREM VENOUS,[facility] Velia Yo MD [address] [place] [phone] Referral ID Status Reason Start Date Expiration Date V isits Requested Visits Authorized [id number] New Request 08/06/2023 08/30/2024 1 1 Additional Source Comments INFORMATION SOURCE (unrecogn ized section and content) DATE CREATED AUTHOR 01/17/2020 [facility] DATE CREATED AUTHOR AUTHOR'S ORGANIZ ATION 08/14/2021 [facility] DATE CREATED AUTHOR AUTHOR'S ORGANIZ ATION 02/15/2022 [facility] DATE CREATED AUTHOR AUTHOR'S ORGANIZ ATION 04/05/2022 [facility] dical Specialist DATE CREATED AUTHOR AUTHOR'S ORGANIZ ATION 07/05/2023 [facility] DATE CREATED AUTHOR AUTHOR'S ORGANIZ ATION 09/09/2023 [facility] DATE CREATED AUTHOR AUTHOR'S ORGANIZ ATION 09/26/2023 [facility] DATE CREATED AUTHOR AUTHOR'S ORGANIZ ATION 10/12/2023 [facility] dical Specialists EPIC DATE CREATED AUTHOR AUTHOR'S ORGANIZ ATION 10/28/2023 [facility] Care Teams (unrecognized sec tion and content) Dock Superintendent Relationship Specialty Start Date End [place] [address] PCP - General 08/23/12 Dock Superintendent Relationship Specialty Start Date End Date Chey Pillai MD [address] [place] [id number] PCP - General Family Medicine 08/06/21 Dock Superintendent Relationship Specialty Start Date End Date Chey Aragon MD [address] [place] [phone] PCP - General Family Medicine 01/30/20 Dock Superintendent Relationship Specialty Start Date End Date Chey Aragon MD [address] [place] [address] PCP - General Family Medicine 01/30/20 Dock Superintendent Relationship Specialty Start Date End Date Chey Aragon MD [address] [place] [address] PCP - General Family Medicine 01/30/20 Dock Superintendent Relationship Specialty Start Date End Date Chey Aragon MD [address] [place] [address] PCP - General Family Medicine 01/30/20 Dock Superintendent Relationship Specialty Start Date End Date Chey Aragon MD [address] [place] [address] PCP - General Family Medicine 01/30/20 Dock Superintendent Relationship Specialty Start Date End Date Chey Aragon MD [address] [place] [address] PCP - General Family Medicine 01/30/20 Dock Superintendent Relationship Specialty Start Date End Date Chey Aragon MD [address] [place] [address] PCP - General Family Medicine 01/30/20 Dock Superintendent Relationship Specialty Start Date End Date Chey Aragon MD [address] [place] [address] PCP - General Family Medicine 01/30/20 Dock Superintendent Relationship Specialty Start Date End Date Chey Aragon MD [address] [place] [address] PCP - General Family Medicine 01/30/20 Dock Superintendent Relationship Specialty Start Date End Date Chey Aragon MD [address] [place] [address] PCP - General Family Medicine 01/30/20 Dock Superintendent Relationship Specialty Start Date End Date Chey Aragon MD [address] [place] [address] PCP - General Family Medicine 01/30/20 Dock Superintendent Relationship Specialty Start Date End Date Chey Aragon MD [address] [place] [address] PCP - General Family Medicine 01/30/20 Dock Superintendent Relationship Specialty Start Date End Date Chey Aragon MD [address] [place] [address] PCP - General Family Medicine 01/30/20 Dock Superintendent Relationship Specialty Start Date End Date Chey Aragon MD [address] [place] [address] PCP - General Family Medicine 01/30/20 Dock Superintendent Relationship Specialty Start Date End Date Chey Aragon MD [address] [place] [address] PCP - General Family Medicine 01/30/20 Dock Superintendent Relationship Specialty Start Date End Date Chey Aragon MD [address] [place] [address] PCP - General Family Medicine 04/29/22 Dock Superintendent Relationship Specialty Start Date End Date Chey Aragon MD [address] [place] [address] PCP - General Family Medicine 04/29/22 Dock Superintendent Relationship Specialty Start Date End Date Chey Aragon MD [address] [place] [address] PCP - General Family Medicine 04/29/22 Dock Superintendent Relationship Specialty Start Date End Date Chey Aragon MD [address] [place] [address] PCP - General Family Medicine 10/27/22 Chey Aragon MD [address] [place] [address] [facility] Serene Alfred NP [address] [place] [address] Nurse Practitioner Family Medicine 10/27/22 Dock Superintendent Relationship Specialty Start Date End Date Chey Aragon MD [address] [place] [address] PCP - General Family Medicine 10/27/22 Chey Aragon MD [address] [place] [address] PCP - [facility] 04/13/23 Serene Alfred NP [address] [place] [address] Nurse Practitioner Family Medicine 10/27/22 Dock Superintendent Relationship Specialty Start Date End Date Chey Aragon MD [address] [place], [place] [phone] PCP - General Family Medicine 04/29/22 Team [...] Oncology Clinic Appointment Request Ny Cool APN [address] [place] [address] Referral ID Status Reason Start Date Expiration Date Visits Requested Visits Authorized [id number] Authorization Not Required 3 1 1 Reason Comments FOLLOW-UP Reason Onset Date Comments Update 01/09/2023 Reason Onset Date Comments Results 01/21/2023 Reason Comments New Patient Specialty Diagnoses / Procedures Referred By Contac t Referred To Contact Gastroenterology Diagnoses Crohn's disease of both small and large intestine with complication Alexx Slater MD [address] [place] [address] [facility] [address] [place] [address] Referral ID Status Reason Start Date Expiration Date V isits Requested Visits Authorized [id number] Pending Review 01/16/2023 02/10/2024 1 1 Reason [...] weeks gestation of Ioana Otero MD [address] [place] [address] Velia Yo MD [address] [place] [phone] Referral ID Status Reason Start Date Expiration Date V isits Requested Visits Authorized [id number] Pending Review 02/05/2023 03/01/2024 1 1 Goals [...] BE BASED ON THE PRIMARY CLINICAL RECORDS. [facility] [employer] provides no warranty or guarantee of the accuracy or completeness of information in this document.
[2023-11-04 13:14] LABS: Basophils Percent Auto 0.5 % (0.2-2.0); Eosinophils Absolute Auto 0.2 10^3/uL (0.0-0.7); Eosinophils Percent Auto 2.7 % (0.9-7.0); Hematocrit 39.2 % (36.0-48.0); Hemoglobin 12.9 g/dL (12.0-16.0); Immature Granulocytes Abs Auto 0.03 10^3/uL (0.00-0.03); Immature Granulocytes Pct Auto 0.4 % (0.0-0.5); Lymphocytes Absolute Auto 1.9 10^3/uL (1.2-3.8); Lymphocytes Percent Auto 21.6 % (20.5-60.0); Mean Corpuscular HGB Conc 32.9 g/dL (29.9-35.2); Mean Corpuscular Hemoglobin 28.9 pg (26.7-34.0); Mean Corpuscular Volume 87.7 fL (81.0-99.0); Mean Platelet Volume 10.6 fL (9.5-13.5); Monocytes Absolute Auto 0.5 10^3/uL (0.3-0.8); Monocytes Percent Auto 5.3 % (1.7-12.0); Neutrophils Percent Auto 69.5 % (43.0-75.0); Platelet Count 217 10^3/uL (150-450); Red Blood Count 4.47 10^6/uL (4.20-5.40); Red Cell Distribution Width 14.5 % (11.0-15.0); White Blood Count 8.6 10^3/uL (4.0-11.0)
[2023-11-04 13:30] LABS: Erythrocyte Sedimentation Rate 6 mm/hr (<=20)
[2023-11-04 13:53] LABS: Alanine Aminotransferase 25 U/L (14-59); Albumin Globulin Ratio 1.5; Albumin Level 3.6 g/dL (3.4-5.0); Alkaline Phosphatase 76 U/L (46-116); Anion Gap 11.6; Aspartate Amino Transferase 19 U/L (15-37); BUN Creatinine Ratio 9.5; Bilirubin Total 0.4 mg/dL (0.2-1.0); C Reactive Protein <0.50 mg/dL (<=0.50); Calcium 9.1 mg/dL (8.5-10.1); Carbon Dioxide 27.4 mmol/L (21.0-32.0); Chloride 106 mmol/L (98-107); Estimated GFR (African America >60 (>=60); Estimated GFR (Non-African Ame >60 (>=60); Globulin 2.4 g/dL; Glucose 94 mg/dL (74-106); Sodium 141 mmol/L (136-145)
[2023-11-04 15:00] LABS: Percent Iron Saturation 16.4 %
[2023-11-05 06:09] LABS: Transferrin 189 mg/dL (192-364)
[2023-11-06 07:08] LABS: Zinc Level 57 ug/dL (44-115)
[2023-11-09 13:10] LABS: Methylmalonic Acid, Serum 97 nmol/L (0-378)
[2023-11-09 16:09] LABS: Calprotectin, Fecal 265 ug/g (0-120)
== END 2023-11-04 12:45 | disposition home or self-care (01) ==
LOC: LAB 12:45
PROVIDERS: PCP Family Medicine
DX: K50.819 Crohn's disease of both small and large intestine with unspecified complications (principal)
CPT/HCPCS: 36415; 80053; 82306; 82607; 82728; 82746; 83540; 83550; 83921; 83993; 84466; 84630; 85025; 85652; 86140

== ENCOUNTER 2024-06-03 13:36 | Outpatient (OUT) | payer BC, MEDICAID, SELFPAY ==
[2024-06-03 14:32] LABS: Basophils Percent Auto 0.4 % (0.2-2.0); Eosinophils Absolute Auto 0.2 10^3/uL (0.0-0.7); Eosinophils Percent Auto 2.4 % (0.9-7.0); Hematocrit 34.1 % (36.0-48.0); Hemoglobin 11.3 g/dL (12.0-16.0); Immature Granulocytes Abs Auto 0.03 10^3/uL (0.00-0.03); Immature Granulocytes Pct Auto 0.3 % (0.0-0.5); Lymphocytes Absolute Auto 1.1 10^3/uL (1.2-3.8); Lymphocytes Percent Auto 11.4 % (20.5-60.0); Mean Corpuscular HGB Conc 33.1 g/dL (29.9-35.2); Mean Corpuscular Hemoglobin 28.8 pg (26.7-34.0); Mean Platelet Volume 10.2 fL (9.5-13.5); Monocytes Absolute Auto 0.7 10^3/uL (0.3-0.8); Neutrophils Absolute Auto 7.2 10^3/uL (1.4-6.5); Neutrophils Percent Auto 77.5 % (43.0-75.0); Platelet Count 245 10^3/uL (150-450); Red Blood Count 3.92 10^6/uL (4.20-5.40); Red Cell Distribution Width 12.6 % (11.0-15.0); White Blood Count 9.3 10^3/uL (4.0-11.0)
[2024-06-03 14:35] LABS: Erythrocyte Sedimentation Rate 16 mm/hr (<=20)
[2024-06-03 14:44] LABS: Percent Iron Saturation 9.1 %
[2024-06-03 14:52] LABS: Alanine Aminotransferase 21 U/L (14-59); Albumin Globulin Ratio 1.1; Alkaline Phosphatase 79 U/L (46-116); Anion Gap 12.5; Aspartate Amino Transferase 17 U/L (15-37); BUN Creatinine Ratio 8.3; Bilirubin Total 0.3 mg/dL (0.2-1.0); Calcium 8.6 mg/dL (8.5-10.1); Carbon Dioxide 25.2 mmol/L (21.0-32.0); Chloride 104 mmol/L (98-107); Estimated GFR (African America >60 (>=60 mL/min/1.73m^2); Estimated GFR (Non-African Ame >60 (>=60 mL/min/1.73m^2); Globulin 2.8 g/dL; Glucose 103 mg/dL (74-106); Potassium 3.7 mmol/L (3.5-5.1); Sodium 138 mmol/L (136-145); Total Protein 5.8 g/dL (6.4-8.2)
[2024-06-04 06:08] LABS: Transferrin 174 mg/dL (192-364)
[2024-06-07 05:07] LABS: QuantiFERON-TB Gold Plus Negative (Negative)
== END 2024-06-03 13:37 | disposition home or self-care (01) ==
PROVIDERS: PCP Family Medicine
DX: K50.819 Crohn's disease of both small and large intestine with unspecified complications (principal)
CPT/HCPCS: 36415; 80053; 82306; 82728; 83540; 83550; 84466; 85025; 85652; 86140; 86480

== ENCOUNTER 2024-06-06 12:50 | Outpatient (OUT) | payer BC, MEDICAID, SELFPAY ==
[2024-06-06 14:45] LABS: C. Difficile PCR NEGATIVE
[2024-06-07 15:08] LABS: Ova + Parasite Exam Final report (.)
[2024-06-08 08:09] LABS: Calprotectin, Fecal 851 ug/g (0-120)
== END 2024-06-06 12:51 | disposition home or self-care (01) ==
LOC: LAB 12:52
PROVIDERS: PCP Family Medicine; Visit Provider Nurse Practitioner Family
DX: R19.7 Diarrhea, unspecified (principal); K50.819 Crohn's disease of both small and large intestine with unspecified complications
CPT/HCPCS: 83993; 87045; 87046; 87177; 87209; 87427; 87493

== ENCOUNTER 2024-06-20 07:42 | Outpatient (RCR) | payer BC, MEDICAID, SELFPAY ==
[2024-06-20 09:00] VITALS: BP 101/70; TEMP 36.6; O2SAT 96
[2024-06-20] MEDS: ACETAMINOPHEN 325 MG TABLET 650 MG PO (09:20)
[2024-06-20] MEDS: DIPHENHYDRAMINE HCL 25 MG CAPSULE PO (09:20)
[2024-06-20] MEDS: IRON DEXTRAN COMPLEX 100 MG/2 ML VIAL 25 MG IVP (09:48)
[2024-06-20] MEDS: 0.9 % SODIUM CHLORIDE 250 ML 10 ML IV (10:00)
--- NOTE | 2024-06-20 10:08 | PC.NURSE ---
Tolerating test dose with no s/s of reaction. warm blanket and pillow provided for comfort. IV site clear, no reddness or edema noted
--- NOTE | 2024-06-20 12:17 | PC.NURSE ---
Tolerating infusion without any issues. Lunch ordered.
--- NOTE | 2024-06-20 13:49 | PC.NURSE ---
1300 Eats 100% of meal. infusion tolerating without any s/s of rxn
== END 2024-07-04 10:33 | disposition home or self-care (01) ==
LOC: INF 07:42
PROVIDERS: PCP Family Medicine; Visit Provider Nurse Practitioner Family
DX: E61.1 Iron deficiency (principal)
CPT/HCPCS: 96365; 96366; 96376; J1750

== ENCOUNTER 2024-09-23 07:35 | Outpatient (RCR) | payer BC, MEDICAID, SELFPAY ==
[2024-09-23 12:34] VITALS: BP 115/72; PULSE 90; TEMP 36.6; O2SAT 98
[2024-09-23] MEDS: 0.9 % SODIUM CHLORIDE 250 ML 40 ML IV (12:45)
[2024-09-23] MEDS: SODIUM CHLORIDE 0.9% IV (12:46)
[2024-09-23] MEDS: RISANKIZUMAB RZAA IV (12:46)
[2024-09-23 13:11] VITALS: BP 107/74; PULSE 89; TEMP 36.3; O2SAT 97
--- NOTE | 2024-09-23 13:12 | PC.NURSE ---
Tolerating infusion without and s/s of reaction
== END 2024-09-26 07:32 | disposition home or self-care (01) ==
LOC: INF 07:35
PROVIDERS: PCP Family Medicine; Visit Provider Nurse Practitioner Family
DX: K50.819 Crohn's disease of both small and large intestine with unspecified complications (principal)
CPT/HCPCS: 96365; J2327

== ENCOUNTER 2024-10-28 07:38 | Outpatient (RCR) | payer BC, MEDICAID, SELFPAY ==
[2024-10-28 12:59] VITALS: BP 99/56; PULSE 84; TEMP 36.3; O2SAT 98
[2024-10-28] MEDS: RISANKIZUMAB RZAA IV (13:19)
[2024-10-28] MEDS: SODIUM CHLORIDE 0.9% IV (13:19)
== END 2024-11-10 23:59 | disposition home or self-care (01) ==
LOC: INF 07:38
PROVIDERS: PCP Family Medicine
DX: K50.819 Crohn's disease of both small and large intestine with unspecified complications (principal)
CPT/HCPCS: 96365; J2327

== ENCOUNTER 2024-11-25 07:44 | Outpatient (RCR) | payer BC, MEDICAID, SELFPAY ==
[2024-11-25 12:37] VITALS: BP 104/68; PULSE 77; TEMP 37; O2SAT 97
[2024-11-25] MEDS: RISANKIZUMAB RZAA IV (12:59)
[2024-11-25] MEDS: SODIUM CHLORIDE 0.9% IV (12:59)
[2024-11-25] MEDS: 0.9 % SODIUM CHLORIDE 250 ML 40 ML IV (12:59)
== END 2024-12-11 23:59 | disposition home or self-care (01) ==
LOC: INF 07:44
PROVIDERS: PCP Family Medicine
DX: K50.819 Crohn's disease of both small and large intestine with unspecified complications (principal)
CPT/HCPCS: 96365; J2327

== ENCOUNTER 2024-12-09 10:44 | Outpatient (RCR) | payer BC, MEDICAID, SELFPAY ==
[2024-12-09 11:12] VITALS: PULSE 75; TEMP 36.6; O2SAT 98
[2024-12-09 11:47] LABS: Hematocrit 36.6 % (36.0-48.0); Hemoglobin 11.9 g/dL (12.0-16.0); Immature Granulocytes Abs Auto 0.11 10^3/uL (0.00-0.03); Immature Granulocytes Pct Auto 1.1 % (0.0-0.5); Lymphocytes Absolute Auto 1.1 10^3/uL (1.2-3.8); Mean Corpuscular HGB Conc 32.5 g/dL (29.9-35.2); Mean Corpuscular Hemoglobin 28.0 pg (26.7-34.0); Mean Corpuscular Volume 86.1 fL (81.0-99.0); Platelet Count 257 10^3/uL (150-450); Red Blood Count 4.25 10^6/uL (4.20-5.40); White Blood Count 10.0 10^3/uL (4.0-11.0)
[2024-12-09 11:59] LABS: Alanine Aminotransferase 15 U/L (14-59); Albumin Globulin Ratio 1.1; Albumin Level 3.2 g/dL (3.4-5.0); Alkaline Phosphatase 60 U/L (46-116); Anion Gap 13.6; Aspartate Amino Transferase 8 U/L (15-37); Blood Urea Nitrogen 7.0 mg/dL (7.0-18.0); Calcium 8.9 mg/dL (8.5-10.1); Carbon Dioxide 27.5 mmol/L (21.0-32.0); Chloride 106 mmol/L (98-107); Estimated GFR (African America >60 (>=60 mL/min/1.73m^2); Estimated GFR (Non-African Ame >60 (>=60 mL/min/1.73m^2); Globulin 2.8 g/dL; Glucose 74 mg/dL (74-106); Potassium 4.1 mmol/L (3.5-5.1); Sodium 143 mmol/L (136-145); Total Protein 6.0 g/dL (6.4-8.2)
== END 2024-12-11 23:59 | disposition home or self-care (01) ==
LOC: INF 10:44
PROVIDERS: PCP Family Medicine; Visit Provider Nurse Practitioner Family
DX: K90.9 Intestinal malabsorption, unspecified (principal); K50.819 Crohn's disease of both small and large intestine with unspecified complications
CPT/HCPCS: 36415; 80053; 85025; 85652; 86140; 96365; 96366; J1750

== ENCOUNTER 2024-12-28 12:12 | Outpatient (OUT) | payer BC, MEDICAID, SELFPAY ==
--- OUTSIDE RECORDS SUMMARY | 2024-12-28 12:22 | XMS_ITS | CCD ---
Author Organization [facility] CliniSyil Care Team Providers Care Contracts Administrator Name Role Phone Otilia Sinclair Primary Care [...] Provider Chey Aragon MD Primary Care Provider [phone] Unavailable Primary Care Provider UnavailChey Meek MD Primary Care Provider Tima BARREL RIFLER BUTTON, Serene A Unavailable Chey Aragon MD Unavailable ALFREDO DUONG Referring Unavailable CHEY ARAGON Primary Care Unavailable RUCHI CARMONA Attending Unavailable ALFREDO DUONG Referring Unavailable CHEY ARAGON Primary Care Unavailable ALFREDO DUONG Referring Unavailable CHEY ARAGON Primary Care Unavailable LUIZ DUONGE Referring Unavailable CHEY ARAGON Primary Care Unavailable SHANTELL Duong Attending Provider Alfredo Duong Attending Unavailable Alfredo Duong Admitting Unavailable Chey Aragon MD Unavailable Jaxon BROCK-Naima POWER Primary Care CHEY Anton Primary Care Unavailable ROSS MAGALLON Attending Unavailable CHEY ARAGON Primary Care Unavailable [facility], [facility] Referring Un available ZHOU LEE Attending Unavailable CEHY ARAGON Primary Care Unavailable ZHOU LEE Attending Unavailable CHEY ARAGON Referring Unavailable CHEY ARAGON Primary Care Unavailable ZHOU LEE Attending Unavailable ZHOU LEE Admitting Unavailable CHEY ARAGON Primary Care Unavailable NAIMA COATES Referring Unavailable Chey Aragon MD Primary Care Provider JELLY LATHAM Attending Unavailable KATIE ACEVES Attending Unavailab CHEY Mazariegos Attending Unavailable RUBIA HERNANDEZ Referring Unavailable KETAN, KATIE Ventura Attending Unavailab SERENE Nichols Referring Unavailab elroy ALFRED, SERENE Ventura Attending Unavailab ALFREDO Swain Attending Unavailable TIMA, SERENE Ventura Attending Unavailab SERENE Nichols Attending Unavailab Chey Sanchez MD Primary Care Prov ider Chey Pillai MD Primary Care Pr ovider CLIFFORD RODAS Referring Unavailable CHEY PILLAI Primary Care Un available MILIND FITCH Referring Unavailable TU DALTON Attending Unavailable WINKLE MILIND Referring Unavailable DARI WALTERS Attending Unavailable MILIND FITCH Attending Unavailable SELF, SELF Referring Unavailable SELF, SELF Referring Unavailable MILIND FITCH Attending Unavailable CLIFFORD RODAS Attending Unavailable KEREN FITCHILY Referring Unavailable CHEY PILLAI Primary Care Unav ailable KALADY, CLIFFORD F Referring Unavailable GRE[facility]ADE-MAHESH, [facility] Unav ailable KALADY, CLIFFORD F Attending Unavailable YVETTE MAR Attending Unavailable [facility]ADE[facility]MAHESH, [facility] Unav ailable GREENSLADE-MAHESH, CHEY Referring Unav ailable WINKLE, MILIND Attending Unavailable SELF, SELF Referring Unavailable [facility]ADE[facility]MAHESH, [facility] Unav ailable WINKLE, MILIND Referring Unavailable GREENSLADE-MAHESH, [facility] Unav ailable KALADY, CLIFFORD F Attending Unavailable KALADY, CLIFFORD F Referring Unavailable GREENSLADE-MAHESH, [facility] Care Unav ailable KALADY, CLIFFORD F Attending Unavailable WINKLE, MILIND Attending Unavailable SELF, SELF Referring Unavailable KALADY, CLIFFORD F Attending Unavailable WINKLE, MILIND Referring Unavailable KALADY, CLIFFORD F Admitting Unavailable [facility]ADE[facility]MAHESH, [facility] Unav ailable KALADY, CLIFFORD F Admitting Unavailable WINKLE, MILIND Referring Unavailable GREENSLADE-MAHESH, [facility] Unav ailable KALADY, CLIFFORD F Attending Unavailable Allergies Allergy Classification Reported Allergen(s) Allergy Type Date of Onset Reaction(s) Facility (20 sources) cefdinir; Translations: [CEFDINIR] Drug Allergy 09-11-19 12 Rash, Anaphylaxis [facility] (4 sources) Sulfamethoxazole / Trimethoprim; Translations: [Bactrim] Drug Allergy 09-11-19 12 Anaphylaxis [facility] (1 source) cefdinir Drug Allergy 09-10-19 16 [facility] (1 source) inFLIXimab Drug Allergy 09-10-19 16 [facility] (1 source) Pentamidine Drug Allergy 07-08-19 21 [facility] (1 source) Vancomycin Drug Allergy 09-10-19 16 [facility] (20 sources) inFLIXimab; Translations: [INFLIXIMAB] Drug Allergy 01-31-20 15 Other (See Comments) [facility] (20 sources) Pentamidine; Translations: [PENTAMIDINE] Drug Allergy 12-31-[address] [facility] Work Phone: (20 sources) Sulfonamides (Antibiotic); Translations: [SULFA (SULFONAMIDE ANTIBIOTICS)] Propensity to adverse reactions to drug 05-24-[address] [facility] (20 sources) Vancomycin; Translations: [VANCOMYCIN ANALOGUES] Drug Allergy 08-09-19 15 Magdalene Syndrome [facility] (20 sources) cefdinir Drug Allergy 09-11-19 12 Anaphylaxis, Rash [facility] (20 sources) inFLIXimab Drug Allergy 01-31-20 15 Other [facility] (20 sources) Pentamidine Drug Allergy 12-31-19 20 Headache, Headaches [facility] (20 sources) Sulfamethoxazole / Trimethoprim; Translations: [SULFAMETHOXAZOLE-T RIMETHOPRIM] Drug Allergy 09-11-19 12 Anaphylaxis, Rash [facility] Medications Current Medications Medication Drug Class(es) Dates Sig (Normalized) Sig (Original) 0.9% NaCl 0.9 % SolP 100 mL with riTUXimab 10 mg/mL Conc (20 sources) 0.9% NaCl 0.9 % SolP 100 mL with riTUXimab 10 mg/mL Conc Inject into IV. Suspended 0.9% NaCl 0.9 % SolP 100 mL with riTUXimab 10 mg/mL Conc Inject into IV. Active 0.9% NaCl 0.9 % SolP 100 mL with riTUXimab 10 mg/mL Conc Inject into IV. 0 Active [id number] 200 actuat albuterol 0.09 mg/actuat metered dose inhaler (20 sources) beta2-Adrenergic Agonist Start: 06-16-2023 albut elina 0.63 MG/3ML nebulizer solution 0.63 mg Start: 06-15-2023 End: 09-26-2025 take 2 puff(s) by inhalation every four hours for wheezing albuterol HFA 90 mcg/act inhaler Indications: Wheezing Inhale 2 puffs every 4 (four) hours if needed for wheezing 18 g 09/26/2024 09/26/2025 Active azithromycin 250 mg oral tablet (4 sources) Macrolide Antimicrobial Start: 09-26-2024 azithromycin (Zithromax) 250 MG tablet Indications: Acute bilateral otitis media Take 2 tablets (500mg) on day 1, then 1 tablet daily (250mg) on days 2-5 6 tablet 09/26/2024 Active Calcium-Vitamin D-Vitamin K (VIACTIV PO) (3 sources) Calcium-Vitamin D-Vitamin K (VIACTIV PO) Take by mouth 2 times daily. Active Calcium-Vitamin D-Vitamin K (VIACTIV PO) Take by mouth 2 times daily. 0 Active carboxymethylcellulose sodium 10 mg/ml ophthalmic solution (3 sources) Start: 07-25-2014 take 1 drop(s) into the eye(s) three times daily carboxymethylcellulose 1 % ophthalmic solution Place 1 drop into the left eye 3 times daily. 1 Bottle 4 07/25/2014 Active cholecalciferol 0.05 mg oral tablet (1 source) Vitamin D Start: 11-06-2023 take 1 tablet by mouth once daily cholecalciferol 50 MCG (2000 UNIT) tablet Take 1 tablet by mouth daily. 90 tablet 3 11/06/2023 Active ciprofloxacin 3 mg/ml / dexamethasone 1 mg/ml otic suspension (1 source) Corticosteroid, Quinolone Antimicrobial Start: 06-26-2023 ciprofloxacin-dexAMETHas one (CIPRODEX) 0.3-0.1 % otic suspension 10 drops in saline 1 each 1 06/26/2023 Active codeine phosphate 2 mg/ml / guaiFENesin 20 mg/ml oral solution (3 sources) Opioid Agonist Start: 07-07-2014 take 10 mL by mouth every six hours as needed for cough guaiFENesin-codeine (GUAIFENESIN AC) 100-10 MG/5ML liquid Take 10 mLs by mouth every 6 hours as needed for Cough. 1 Bottle 0 07/07/2014 Active dextrose 5 % solution 500 mL with riTUXimab 500 MG/50ML solution 375 mg/m2 (12 sources) dextrose 5 % pranav ution 500 mL with riTUXimab 500 MG/50ML solution 375 mg/m2 Infuse into a venous catheter Active diphenhydrAMINE hydrochloride 25 mg oral tablet (4 sources) Histamine-1 Receptor Antagonist Start: 08-13-2021 diphenhydrAMINE (BENADRYL) tablet 25 mg Start: 04-26-2014 take 10 mL by mouth every six hours as needed diphenhydrAMINE (BENADRYL) 12.5 MG/5ML elixir Take 10 mLs by mouth every 6 hours as needed for Itching. 70 mL 1 04/26/2014 Active docusate sodium 100 mg oral capsule (20 sources) Start: 11-02-2024 End: 01-01-2025 take 1 capsule by mouth twice daily Docusate 100 MG capsule Take 1 capsule by mouth 2 times daily. 60 capsule 1 11/02/2024 01/01/2025 Active Start: 06-24-2023 End: 08-01-2024 take 1 capsule by mouth twice daily docusate (COLACE, DULCOLAX) 100 MG CAPS Take 100 mg by mouth 2 times daily 06/24/2023 Active fentaNYL citrate (PF) 10 mcg/1 mL injection (Sublimaze) (1 source) Start: 03-22-2024 End: 03-22-2024 35 mcg (0.538 mcg/kg), Intravenous, Q5MIN PRN, Other, Pain - Moderate, Pain - Severe, Use first prn acute pain (scale 5-10) - See administration instructions, Starting on Thu03/22/24 at 1457, Until Thu03/22/24 at 2359, Phase I ferrous sulfate 325 mg delayed release oral tablet (20 sources) Start: 06-24-2023 take 1 tablet by mouth in the morning ferrous sulfate (Fe Tabs) 325 (65 Fe) MG EC tablet Indications: Anemia during in third trimester (HHS-HCC) Take 1 tablet (325 mg) by mouth in the morning and 1 tablet (325 mg) before bedtime. Do not crush, chew, or split.. 60 tablet 3 06/24/2023 Active Start: 06-24-2023 take 1 tablet by margarita th twice daily ferrous sulfate (FE TABS 325) 325 (65 Fe) MG EC tablet Take 1 tablet by mouth 2 times daily 06/24/2023 Active fluocinolone acetonide 0.1 mg/ml topical oil (6 sources) Corticosteroid Start: 07-07-2014 fluocinolone ( SYNALAR) 0.025 % ointment Apply to affected area 1 Tube 0 07/07/2014 Active Start: 07-07-2014 fluocinolone ( DERMA-SMOOTHE) 0.01 % external oil Apply to scalp at bedtime with salicylic acid. Cover scalp with shower cap and wash out in the morning. 1 Bottle 0 07/07/2014 Active Lactobacillus (3 sources) Start: 07-25-2014 take 1 tablet by mouth three times daily lactobacillus (BACID) TABS Take 1 tablet by mouth 3 times daily. 30 tablet 1 07/25/2014 Active lansoprazole 30 mg delayed release oral capsule (3 sources) Proton Pump Inhibitor Start: 07-07-2014 take 1 capsule by mouth once daily lansoprazole (PREVACID) 30 MG capsule Take 1 capsule by mouth daily. 30 capsule 0 07/07/2014 Active levoFLOXacin 500 mg oral tablet (1 source) Quinolone Antimicrobial Start: 03-22-2024 End: 03-27-2024 take 1 tablet by mouth once daily levoFLOXacin 500 mg tablet (Levaquin) Take 1 tablet by mouth once daily for 5 days. 5 tablet 03/22/2024 03/27/2024 Active Lidocaine viscous-Alum & Mag Ypnnvdjkn-Gsjlep-ub phenhydrAMINE oral mouthwash (3 sources) Start: 10-10-2024 apply 15 mL topically every six hours as needed Lidocaine viscous-Alum & Mag Rcplipdyq-Mhurfo-p iphenhydrAMINE oral mouthwash Swish and spit 15 mL every 6 hours as needed. 240 mL 1 10/10/2024 Active loratadine 10 mg oral tablet (20 sources) take 1 tablet by mouth once daily loratadine 10 mg tablet Take 1 tablet by mouth once daily. Active Multiple Vitamins-Minerals (THERAPEUTIC MULTIVITAMIN-MINERA LS) tablet (3 sources) take 1 tablet by mouth once daily Multiple Vitamins-Minerals (THERAPEUTIC MULTIVITAMIN-DIAMOND SORTER ALS) tablet Take 1 tablet by mouth daily Active take 1 tablet by mouth once ricardo y Multiple Vitamins-Minerals (THERAPEUTIC MULTIVITAMIN-MINERALS) tablet Take 1 tablet by mouth daily. 0 Active predniSONE 10 mg oral tablet (16 sources) Start: 09-07-2024 End: 10-05-2024 take 4 tablets by mouth once daily, then take 3 tablets by mouth once daily, then take 2 tablets by mouth once daily, then take 1 tablet by mouth once daily predniSONE 10 MG tablet Take 4 tablets by mouth daily for 7 days, THEN 3 tablets daily for 7 days, THEN 2 tablets daily for 7 days, THEN 1 tablet daily for 7 days. 70 tablet 09/07/2024 10/05/2024 Active Start: 06-17-2024 End: 08-01-2024 predniSONE (Deltasone) 20 MG tablet Take by mouth 06/17/2024 08/01/2024 Discontinued (Therapy completed) Start: 06-08-2024 End: 08-01-2024 predniSONE (Deltasone) 10 MG tablet 06/08/2024 08/01/2024 Discontinued MV-Min-Fe Fum-FA-DH A ( 1 PO) (20 sources) MV-Min- Fe Fum-FA-DHA ( 1 PO) Take 1 tablet by mouth daily Active End: 08-01-2024 MV-Min-Fe Fum-FA-DH A ( 1 PO) Take by mouth. 08/01/2024 Discontinued MV-Min- Fe Fum-FA-DHA ( 1 PO) Take by mouth. Active MV-Min- Fe Fum-FA-DHA ( 1 PO) Take by mouth. 0 Active vit,yovanny 74/iron/folic ( VITAMIN 1+1 ORAL) (3 sources) take 1 tablet by margarita th in the morning vit,yovanny 74/iron/folic ( VITAMIN 1+1 ORAL) Take 1 tablet by mouth in the morning. 0 Active Vit-Fe Fumarate-FA ( PO) (10 sources) Vit-Fe Fumarate-FA ( PO) Take by mouth. Active Vit-Fe Fumarate-FA ( PO) Take by mouth. 0 Active Risankizumab-rzaa (Skyrizi) 360 MG/2.4ML Solution Cartridge (4 sources) Start: 09-07-2024 Risankizumab-r zaa (Skyrizi) 360 MG/2.4ML Solution Cartridge Indications: Crohn's disease of both small and large intestine with complication Inject 360 mg under the skin every 56 days. 2.4 mL 6 09/07/2024 Active risankizumab-rzaa (Skyrizi) 600 MG/10ML Solution (4 sources) Start: 09-12-2024 risankizumab-r zaa (Skyrizi) 600 MG/10ML Solution Indications: Crohn's disease of both small and large intestine with complication 600 mg by Intravenous route every 28 days for 3 doses. Infuse Skyrizi 600mg every 4 weeks x 3 doses. No premeds. Rate and dilution per clinical rn package insert or per pharmacist discretion. Infusion reaction medications per pharmacy or infusion suite standard. 10 mL 2 09/12/2024 Active Start: 09-12-2024 End: 11-08-2024 risankizumab-rzaa (Skyrizi) 600 MG/10ML Solution Indications: Crohn's disease of both small and large intestine with complication 600 mg by Intravenous route every 28 days for 3 doses. Infuse Skyrizi 600mg every 4 weeks x 3 doses. No premeds. Rate and dilution per clinical rn package insert or per pharmacist discretion. Infusion reaction medications per pharmacy or infusion suite standard. 10 mL 2 09/12/2024 11/08/2024 Active Risankizumab-rzaa (Skyrizi) 600 MG/10ML solution (3 sources) Start: 09-12-2024 End: 11-08-2024 Risankizumab-rzaa (Skyrizi) 600 MG/10ML solution Infuse 600 mg into a venous catheter every 28 (twenty-eight) days 09/12/2024 11/08/2024 Active riTUXimab (20 sources) [id number] Cytolytic Antibody End: 08-06-2023 riTUXimab (Rituxan) 100 MG/10ML chemo injection as directed Intravenous Active riTUXimab (RITUX AN IV) by Intravenous route. Every 6 months Active salicylic acid 60 mg/ml topical lotion (3 sources) Start: 07-07-2014 Salicylic Acid 6 % LOTN Apply to scalp at bedtime with fluocinolone 0.01% oil. Cover scalp with shower cap and wash out in the morning. 1 Bottle 0 07/07/2014 Active sodium bicarbonate-sodium chloride packet for sinus irrigation (Neilmed Sinus) (1 source) Start: 03-22-2024 End: 04-05-2024 take 1 dose nasal route twice daily, then take 1 dose nasal route twice daily sodium bicarbonate-sodium chloride packet for sinus irrigation (Neilmed Sinus) Place 1 Packet in each nostril twice daily for 14 days. Mix 1 packet as directed on package and use to rinse sinuses two times daily. 50 Each 03/22/2024 04/05/2024 Active sodium chloride, sodium bicarb-nasal rinse squeeze bottle with packet (Neilmed Sinus) (20 sources) Start: 03-20-2022 take 1 dose nasal route twice daily, then take 1 dose nasal route twice daily sodium chloride, sodium bicarb-nasal rinse squeeze bottle with packet (Neilmed Sinus) Place 1 Packet in each nostril twice daily. Mix 1 packet as directed on package and use to rinse sinuses two times daily. 100 Each 03/20/2022 Suspended Start: 03-20-2022 take 1 dose nasal ro [place] twice daily, then take 1 dose nasal route twice daily sodium chloride, sodium bicarb-nasal rinse squeeze bottle with packet (Neilmed Sinus) Place 1 Packet in each nostril twice daily. Mix 1 packet as directed on package and use to rinse sinuses two times daily. 100 Each 03/20/2022 Active Start: 03-20-2022 take 1 dose nasal ro [place] twice daily, then take 1 dose nasal [...] (20 sources) Interleukin-12 Antagonist, Interleukin-23 Antagonist Start: 06-21-2024 Ustekinumab 90 MG/ML Solution Prefilled Syringe injection Indications: Crohn's disease of both small and large intestine with complication Inject 1 mL under the skin every 28 days. 1 mL 06/21/2024 Active Start: 05-26-2024 End: 09-07-2024 Ustekinumab 90 MG/ML Solutio n Prefilled Syringe injection Indications: Crohn's disease of both small and large intestine with complication Inject 1 mL under the skin every 56 days. 1 mL 6 05/26/2024 09/07/2024 Discontinued Start: 10-22-2023 Ustekinumab 90 MG/ML Solution Prefilled Syringe injection Indications: Crohn's disease of both small and large intestine with complication Inject 1 mL under the skin every 56 days. 1 mL 6 10/22/2023 Active Start: 12-23-2022 Ustekinumab 90 MG/ML Solution Prefilled Syringe injection Inject 1 mL under the skin every 56 days. 12/23/2022 Active Start: 12-27-2021 End: 12-23-2022 ustekinumab (STELARA) 90 MG/ ML SOSY prefilled syringe Inject 1 mL into the skin Every 8 weeks 12/27/2021 Active Start: 12-27-2021 End: 09-26-2024 ustekinumab (Stelara) inject ion Inject 90 mg under the skin. 12/27/2021 09/26/2024 Discontinued (Med list cleanup) inject 1 mL by subcu taneous injection every three months ustekinumab (STELARA) 90 mg/mL injection Inject 1 mL (90 mg total) under the skin every 3 (three) months. 0 Active vedolizumab 300 mg injection (3 sources) Integrin Receptor Antagonist vedolizumab (ENTYVIO ) 300 MG injection Infuse intravenously. Active zinc gluconate 50 mg oral tablet (3 sources) Start: take 1 tablet by mouth once daily Zinc 50 MG tablet Take 1 tablet by mouth daily. 30 tablet 3 09/28/2024 Active Completed/Discontinued Medications Medication Drug Class(es) Dates Sig (Normalized) Sig (Original) acetaminophen 325 mg oral tablet (20 sources) Start: 11-02-2024 End: 11-02-2024 take 1 tablet by mouth every four hours as needed 650 mg, Oral, EVERY 4 HOURS NEEDED, Starting on Thu11/02/24 at 1803, Until Thu11/02/24 at 2100, Moderate Pain, Maximum dose of acetaminophen is 4000 mg from all sources in 24 hours., Post-op/Post-Proc Start: 11-02-2024 End: 11-02-2024 take 1 dose by mouth once 975 mg, Oral, ONCE, 1 dose, On Thu11/02/24 at 1515, Pre-op/Pre-Proc Start: 11-02-2024 End: 11-07-2024 take 1 tablet by mouth every six hours acetaminophen 650 MG Tab CR Take 1 tablet by mouth every 6 hours for 5 days. Alternate with ibuprofen doses every 3 hours. 11/02/2024 Active Start: 03-22-2024 End: 06-25-2024 take 10 mg by mouth every six hours as needed for pain 650 mg (10 mg/kg), Oral, Q6H PRN, Pain - Mild, Pain - Moderate, Starting on Thu03/22/24 at 1255, Until 06/25/24 at 1354, Phase II Start: 08-13-2021 acetaminophen (TYLENOL) tablet 325 mg Start: 05-23-2021 End: 03-20-2022 take 2 tablets by mouth every six hours as needed Acetaminophen 325 MG tablet Take 2 tablets by mouth Every 6 hours as needed. 03/20/2022 Active aprepitant 40 mg oral capsule (1 source) Substance P/Neurokinin-1 Receptor Antagonist Start: 03-22-2024 End: 03-22-2024 take 0.48 mg by mouth once 40 mg (0.48 mg/kg), Oral, ONCE, On Thu03/22/24 at 1300, Pre-op Atogepant (Qulipta) 60 MG tablet (4 sources) Start: 08-01-2024 End: 09-26-2024 take 1 tablet by mouth once daily Atogepant (Qulipta) 60 MG tablet Indications: Nonintractable episodic headache, unspecified headache type Take 1 tablet by mouth Daily 90 tablet 1 08/01/2024 09/26/2024 Discontinued (Med list cleanup) Start: 08-01-2024 take 1 tablet by margarita th once daily Atogepant (Qulipta) 60 MG tablet Indications: Nonintractable episodic headache, unspecified headache type Take 1 tablet by mouth Daily 90 tablet 1 08/01/2024 Active bisacodyl 5 mg delayed release oral tablet (1 source) Stimulant Laxative Start: 12-26-2024 End: 12-26-[address] Indications: Anorectal stricture Take all 4 tablets at 11am the day before surgery 4 tablet 12/26/2024 12/26/2024 Discontinued (Error) budesonide 3 mg delayed release oral capsule (8 sources) Corticosteroid Start: 06-03-2024 End: 08-01-2024 budesonide EC (Entocort EC) 3 MG 24 hr capsule 06/03/2024 08/01/2024 Discontinued calcipotriene 0.05 mg/ml topical cream (12 sources) Vitamin D Analog Start: 09-03-2021 End: 01-26-2023 calcipotriene 0.005 % topical cream (Dovonex) Indications: Psoriasis Apply 1 Application to affected area twice daily. 60 gram 2 09/03/2021 01/26/2023 Discontinued calcium chloride 0.0014 meq/ml / potassium chloride 0.004 meq/ml / sodium chloride 0.103 meq/ml / sodium lactate 0.028 meq/ml injectable solution (3 sources) Start: 09-06-2024 End: 09-07-2024 Intravenous, at 20 mL/hr, CONTINUOUS, Starting on Thu09/06/24 at 1230, Until Thu09/07/24 at 0247, Pre-op/Pre-Proc Start: 03-22-2024 End: 06-25-2024 take 75 mL intravenously every hour 75 mL/hr, Intravenous, CONTINUOUS, Starting on Thu03/22/24 at 1500, Until Thu06/25/24 at 1559, Contact pharmacy for new bag/syringe when needed., Phase I Start: 11-18-2023 End: 11-18-2023 Intravenous, at 20 mL/hr, CONTINUOUS, Starting on Thu11/18/23 at 0930, Until Thu11/18/23 at 1129, Pre-op/Pre-Proc clobetasol propionate 0.5 mg/ml topical solution (20 [...] propionate 0.05 mg/actuat metered dose nasal spray (17 sources) Corticosteroid Start: 03-22-2024 End: 03-22-2024 take 1 spray(s) nasal route once daily fluticasone propionate 50 mcg/actuation nasal spray,suspension (Flonase) Place 1 spray(s) in each nostril once daily. 16 gram 03/22/2024 03/22/2024 Discontinued (No Longer Indicated) Start: 03-20-2022 End: 02-04-2023 take 1 spray(s) [...] 3 02/04/2022 03/20/2022 Discontinued (No Longer Taking) 1 ml haloperidol 5 mg/ml prefilled syringe (1 source) Typical Antipsychotic Start: 11-02-2024 End: 11-02-2024 take 1 mg intravenously every hour as needed 1 mg, Intravenous, EVERY 1 HOUR NEEDED, 2 doses, Starting on Thu11/02/24 at 1718, Until Thu11/02/24 at 2100, Nausea, SECOND line antiemetic, Recovery hyoscyamine sulfate 0.125 mg sublingual tablet (12 sources) Start: 06-27-2021 End: 01-26-2023 take 1 tablet under the tongue every six hours as needed for pain hyoscyamine 0.125 mg sublingual tablet (Levsin) Place 1 tablet under tongue every 6 hours as needed for Pain. 120 tablet 2 06/27/2021 01/26/2023 Discontinued ibuprofen 200 mg oral tablet (20 sources) Nonsteroidal Anti-inflammatory Drug Start: 11-02-2024 End: 11-02-2024 take 1 tablet by mouth every six hours as needed 400 mg, Oral, EVERY 6 HOURS NEEDED, Starting on Thu11/02/24 at 1803, Until Thu11/02/24 at 2100, Mild Pain, Give with food, Post-op/Post-Proc Start: 09-05-2023 End: 11-07-2024 take 1 tablet by mouth every six hours Ibuprofen 600 MG tablet Take 1 tablet by mouth every 6 hours for 5 days. Alternate with acetaminophen doses every 3 hours. 11/02/2024 Active Start: 05-23-2021 End: 03-20-2022 take 1 tablet by mouth every six hours as needed for pain ibuprofen 600 mg tablet (Motrin) Take 1 tablet by mouth every 6 hours as needed for Pain. 40 tablet 03/20/2022 Active 10 ml immunoglobulin g, human 100 mg/ml injection (1 source) Human Immunoglobulin G Start: 08-13-2021 End: 08-13-2021 immune globulin (GAMMAGARD) 10% solution 35 g iopamidol (ISOVUE-370) 76 % injection 100 mL (1 source) Start: 10-26-2024 End: 10-26-2024 take 1 dose intravenously once 100 mL, IntraVENous, IMG ONCE PRN, 1 dose, Starting on Thu10/26/24 at 1124, Until Thu10/26/24 at 1127, Other metroNIDAZOLE 500 mg oral tablet (1 source) Nitroimidazole Antimicrobial Start: 12-26-2024 End: 12-26-2024 metroNIDAZOLE 500 MG tablet Indications: Anorectal stricture Take 2 tablets (1000 mg) at 1pm, 2pm, and 9pm the day before your procedure. 6 tablet 12/26/2024 12/26/2024 Discontinued (Error) neomycin sulfate 500 mg oral tablet (1 source) Aminoglycoside Antibacterial Start: 12-26-2024 End: 12-26-2024 Neomycin 500 MG tablet Indications: Anorectal stricture Take 2 tablets (1000 mg) at 1pm, 2pm, and 9pm the day before your procedure. 6 tablet 12/26/2024 12/26/2024 Discontinued (Error) nitrofurantoin, macrocrystals 25 mg / nitrofurantoin, monohydrate 75 mg oral capsule (3 sources) Nitrofuran Antibacterial Start: 03-30-2023 End: 05-26-2023 take 1 capsule by mouth in the morning nitrofurantoin, macrocrystal-mono hydrate, (Macrobid) 100 MG capsule Indications: Acute cystitis without hematuria Take 1 capsule (100 mg) by mouth in the morning and 1 capsule (100 mg) before bedtime. 14 capsule 0 03/30/2023 05/26/2023 Discontinued ofloxacin 3 mg/ml ophthalmic solution (4 sources) Quinolone Antimicrobial Start: 04-27-2024 End: 05-04-2024 take 5 drop(s) into the eye(s) twice daily ofloxacin (OCUFLOX) 0.3% ophthalmic solution for OTIC use Place 5 drops in left ear twice daily for 7 days. 10 mL 04/27/2024 05/04/2024 Start: 05-27-2023 ofloxacin (OCU FLOX) 0.3 % solution Apply 5 drops to the draining ear(s) twice a day for 7 days 10 mL 1 05/27/2023 Active 2 ml ondansetron 2 mg/ml injection (2 sources) Serotonin-3 Receptor Antagonist Start: 11-02-2024 End: 11-02-2024 take 4 mg intravenously every four hours as needed 4 mg, Intravenous, EVERY 4 HOURS NEEDED, Starting on Thu11/02/24 at 1803, Until Thu11/02/24 at 2100, Nausea / Vomiting, Post-op/Post-Proc Start: 08-13-2021 ondansetron (Z OFRAN) tablet 4 mg polyethylene glycol 3350 12503 mg powder for oral solution (1 source) Osmotic Laxative Start: 12-26-2024 End: 12-26-2024 Polyethylene glycol 17 GM/SCOOP Powder powder Indications: Anorectal stricture 11 AM: Take entire contents over 2 hours as instructed. 255 g 12/26/2024 12/26/2024 Discontinued (Error) prochlorperazine 5 mg/ml injectable solution (1 source) Phenothiazine Start: 11-02-2024 End: 11-02-2024 take 5 mg intravenously every hour as needed 5 mg, Intravenous, EVERY 1 HOUR NEEDED, 2 doses, Starting on Thu11/02/24 at 1718, Until Thu11/02/24 at 2100, Nausea / Vomiting, FIRST Line antiemetic, Do not administer within 6 hours of intra-operative dose. Maximum 40mg/day. For IV route: Give undiluted by slow IV push at a rate of 5 mg/min., Recovery 72 hr scopolamine 0.0139 mg/hr transdermal system (1 source) Anticholinergic Start: 11-02-2024 End: 11-02-2024 1 patch, Transdermal, ONCE, 1 dose, On Thu11/02/24 at 1515, Each patch delivers 1 mg over 72 hours., Pre-op/Pre-Proc sertraline 25 mg oral tablet (20 sources) Serotonin Reuptake Inhibitor Start: 01-27-2024 End: 08-01-2024 take 1 tablet by mouth once daily sertraline (Zoloft) 25 MG tablet Indications: Anxiety Take 1 tablet (25 mg) by mouth Daily 90 tablet 04/26/2024 08/01/2024 Discontinued simethicone in sterile water 40 mg/1000 mL irrigation 1 Application (1 source) Start: 09-06-2024 End: 09-06-2024 1 Application, Irrigation, ADMINISTER DIRECTED, Starting on Thu09/06/24 at 1311, Until Thu09/06/24 at 1510, Other, For gastrointestinal irrigation, Intra-op/Intra-Proc 250 ml sodium chloride 9 mg/ml injection (6 sources) Start: 11-02-2024 End: 11-02-2024 Intravenous, at 50 mL/hr, CONTINUOUS, Starting on Thu11/02/24 at 1445, Until Thu11/02/24 at 2100, Pre-op/Pre-Proc Start: 10-26-2024 End: 10-26-2024 100 mL, IntraVENous, at 6,00 0 mL/hr, Administer over 1 Minutes, ONCE, On Thu10/26/24 at 1145, For 1 dose Start: 10-26-2024 10 mL, IntraVE Nous, PRN, Starting on Thu10/26/24 at 1124, Until Discontinued, Line Care Start: 03-22-2024 End: 06-25-2024 Intercatheter, Q1H PRN, Flus h, To maintain access, Phase I Start: 08-13-2021 End: 08-14-2021 0.9 % sodium chloride infusi on ubrogepant 100 mg oral table t (9 sources) Start: 07-16-2024 End: 09-26-2024 Ubrogepant (Ubrelvy) 100 MG tablet Indications: Nonintractable episodic headache, unspecified headache type Take 100 mg by mouth if needed (headache) 2 tablet 07/16/2024 09/26/2024 Discontinued (Med list cleanup) Problems Active Problems Problem Classification Problem Date Documented Da te Episodic/Chronic Acute bronchitis (2 sources) Acute viral bronchitis; Translations: [Acute bronchitis due to other specified organisms] 09-26-2024 Episodic Anal and rectal conditions (3 sources) Anorectal stricture; Translations: [Stenosis of anus and rectum] Onset: 5 12-26-2024 Episodic Anxiety disorders (4 sources) Anxiety; Translations: [Anxiety disorder, unspecified] 01-27-2024 Chronic Diseases of white blood cells (20 sources) Leukocytosis; Translations: [Elevated white blood cell count, unspecified] Onset: 2 Resolved: 2 02-26-2022 Chronic Esophageal disorders (20 sources) Gastroesophageal reflux disease; Translations: [Gastro-esophageal reflux disease without esophagitis] Onset: 2 Resolved: 2 02-26-2022 Chronic Headache; including migraine (20 sources) Tension-type headache; Translations: [Tension-type headache, unspecified, [...] [Orbital myositis, unspecified orbit] Onset: 5 Resolved: 4 06-08-2021 Chronic Malaise and fatigue (2 sources) Fatigue; Translations: [Other fatigue] 01-27-2024 Episodic Mood disorders (20 sources) Depressive disorder; Translations: [Depression] Onset: 4 02-10-2024 Chronic Nutritional deficiencies (20 sources) Vitamin D deficiency; Translations: [Vitamin D deficiency, unspecified] Onset: 7 Resolved: 9 07-03-2020 Chronic Other aftercare (1 source) Surgical follow-up Onset: 5 Episodic Other aftercare (2 sources) Encounter for follow-up examination after completed treatment for conditions other than malignant neoplasm; Translations: [Encounter for follow-up examination after completed treatment for conditions other than malignant neoplasm] Onset: 5 Episodic Other complications of (1 source) Anemia complicating , unspecified trimester; Translations: [Anemia complicating , unspecified trimester] Onset: 4 Chronic Other complications of (1 source) Diseases of [...] cerumen, bilateral] 05-26-2023 Episodic Other gastrointestinal disorders (1 source) Personal history of other diseases of the digestive system; Translations: [Personal history of other diseases of the digestive system] Onset: 4 Episodic Other inflammatory condition of skin (11 sources) Scalp psoriasis; 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, unspecified] Onset: 5 06-14-2014 Chronic Other inflammatory condition of skin (20 sources) Psoriasis; 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, unspecified] Onset: 5 06-08-2021 Chronic Other lower respiratory disease (2 sources) Cough; Translations: [Acute cough] 09-26-2024 Episodic Other lower respiratory disease (2 sources) Wheezing; Translations: [Wheezing] 09-26-2024 Episodic Other nutritional; endocrine; and metabolic disorders (20 sources) Obese class I; Translations: [Obesity, unspecified] Onset: 3 02-25-2023 Chronic Other upper respiratory disease (1 source) Epistaxis; Translations: [Epistaxis] Onset: 4 Episodic Other upper respiratory infections (20 sources) Chronic sinusitis; Translations: [Chronic sinusitis, unspecified] Onset: 5 Resolved: 1 06-08-2021 Chronic Other upper respiratory infections (20 sources) Acute pansinusitis; Translations: [Acute pansinusitis, unspecified] Resolved: 6 09-14-2015 Episodic Otitis media and related conditions (20 sources) Acute suppurative otitis media; Translations: [Acute suppurative otitis media without spontaneous rupture of ear drum, left ear] Onset: 8 Resolved: 9 04-01-2019 Episodic Regional enteritis and ulcerative colitis (20 sources) Crohn's disease of small AND large intestines; Translations: [Crohn's disease of both small and large intestine with unspecified complications] Onset: 2 Resolved: 2 07-20-2014 Chronic Residual codes; unclassified (2 sources) First trimester ; Translations: [Less than 8 weeks gestation of ] 02-04-2023 Episodic Residual codes; unclassified (1 source) Gestation period, 11 weeks; Translations: [11 weeks gestation of ] 02-25-2023 Episodic Residual codes; unclassified (1 source) 19 weeks gestation of ; Translations: [19 weeks gestation of ] Onset: 4 Episodic Residual codes; unclassified (2 sources) Other specified health status; Translations: [Other specified health status] Onset: 5 Episodic Unclassified (1 source) HX Colitis Onset: 4 Unclassified (1 source) Low Blood Iron Onset: 4 Unclassified (2 sources) New Patient; Translations: [New Patient] Onset: 5 Unclassified (1 source) Bowel Prep Onset: 5 08-31-2024 Unclassified (2 sources) PPD Reading; Translations: [PPD Reading] Onset: 5 Viral infection (4 sources) COVID-19; Translations: [COVID-19] Onset: 2 Past or Other Problems Problem Classification Problem Date Documented Da te Episodic/Chronic Abdominal pain (20 sources) Generalized abdominal pain; Translations: [Generalized abdominal pain] Resolved: 7 05-22-2016 Episodic Blindness and vision defects (20 sources) Diplopia; Translations: [Diplopia] Resolved: 7 12-19-2016 Episodic Chronic obstructive pulmonary disease and bronchiectasis (20 sources) Bronchiectasis; Translations: [Bronchiectasis, uncomplicated] Onset: 1 Resolved: 4 04-16-2020 Chronic Complication of device; implant or graft (3 sources) Injection site extravasation; Translations: [Other specified complication of vascular prosthetic devices, implants and grafts, initial encounter] Onset: 5 Resolved: 5 07-20-2014 Chronic Complications of surgical procedures or medical care (20 sources) Postoperative abdominal wall wound abscess; Translations: [Infection following a procedure, other surgical site, initial encounter] Resolved: 7 12-19-2016 Episodic Deficiency and other anemia (20 sources) Microcytic anemia; Translations: [Iron deficiency anemia, unspecified] Onset: 3 07-25-2014 Episodic Deficiency and other anemia (20 sources) Anemia; Translations: [Anemia, unspecified] Onset: 6 Resolved: 6 09-14-2015 Episodic Deficiency and other anemia (7 sources) Iron deficiency anemia; Translations: [Iron deficiency anemia, unspecified] Onset: 4 09-01-2023 Episodic Diseases of mouth; excluding dental (20 sources) Ulcer of mouth; Translations: [Other forms of stomatitis] Onset: 9 Resolved: 9 09-16-2018 Episodic Disorders of teeth and jaw (20 sources) Difficulty chewing; Translations: [Other specified disorders of teeth and supporting structures] Onset: 9 Resolved: 9 04-01-2019 Episodic Fever of unknown origin (20 sources) Fever; Translations: [Fever, unspecified] Onset: 2 Resolved: 2 07-20-2014 Episodic Fluid and electrolyte disorders (20 sources) Dehydration; Translations: [Dehydration] Onset: 5 Resolved: 2 07-20-2014 Episodic Headache; including migraine (20 sources) Headache; Translations: [Headache] Onset: 9 Resolved: 2 07-27-2014 Episodic Inflammation; infection of eye (except that caused by tuberculosis or sexually transmitteddisease) (20 sources) Cellulitis of left orbit; Translations: [Cellulitis of left orbit] Onset: 5 Resolved: 4 07-27-2014 Episodic Intestinal infection (20 sources) Clostridium difficile colitis; Translations: [Enterocolitis due to Clostridium difficile, not specified as recurrent] Resolved: 6 03-25-2016 Episodic Meningitis (except that caused by tuberculosis or sexually transmitted disease) (20 sources) Aseptic meningitis; Translations: [Nonpyogenic meningitis] Onset: 2 Resolved: 4 08-18-2021 Episodic Mood disorders (3 sources) Mood disorders Onset: 5 Resolved: 5 10-17-2024 Neoplasms of unspecified nature or uncertain behavior (3 sources) Neoplasm of uncertain behavior of skin; Translations: [Neoplasm of uncertain behavior of skin] Onset: 5 Resolved: 5 05-17-2014 Episodic Nutritional deficiencies (20 sources) Iron deficiency; Translations: [Iron deficiency] Onset: 2 Resolved: 9 09-16-2018 Episodic Other aftercare (20 sources) Drug-induced immunodeficiency ; 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] Onset: 3 07-20-2014 Episodic Other aftercare (20 sources) Patient encounter status; Translations: [Encounter for therapeutic drug level monitoring] Onset: 5 Resolved: 8 05-08-2020 Episodic Other aftercare (20 sources) Long-term current use of systemic steroid; 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 director (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 of systemic steroids] Onset: 6 Resolved: 9 08-13-2018 Episodic Other aftercare (20 sources) Drug therapy finding; Translations: [On rituximab therapy] Onset: 8 Resolved: 1 04-17-2020 Episodic Other aftercare (20 sources) [facility] current use of adalimumab therapy; Translations: [Adalimumab (Humira) long-term use] Onset: 3 12-18-2022 Episodic Other aftercare (20 sources) Long-term current use of rituximab; Translations: [Encounter for therapeutic drug level monitoring] Onset: 1 10-27-2022 Episodic Other aftercare (7 sources) Long-term current use of steroid; Translations: [Encounter for long-term (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 of steroids] Onset: 5 Resolved: 6 10-09-2015 Episodic Other aftercare (7 sources) [facility] methotrexate user; Translations: [Encounter for therapeutic drug level monitoring] Onset: 5 Resolved: 8 02-15-2018 Episodic Other aftercare (7 sources) Long-term current use of drug therapy; Translations: [Encounter for therapeutic drug level monitoring] Onset: 0 Resolved: 1 04-17-2020 Episodic Other complications of (9 sources) Anemia during - baby not yet delivered; Translations: [Anemia complicating , unspecified trimester] Resolved: 7 12-19-2016 Chronic Other complications of (14 sources) Anemia of ; Translations: [Anemia complicating , unspecified trimester] Resolved: 7 12-19-2016 Chronic Other complications of (3 sources) Crohn's disease; Translations: [Diseases of the digestive system complicating , second trimester] 04-24-2023 Episodic Other ear and sense organ disorders (20 sources) Otitis externa of left ear; Translations: [Unspecified otitis externa, left ear] Onset: 8 Resolved: 9 09-16-2018 Chronic Other eye disorders (20 sources) Disorder of eye; Translations: [Unspecified disorder of eye and adnexa] Onset: 5 Resolved: 5 08-11-2014 Episodic Other eye disorders (20 sources) Pain in eye; Translations: [Ocular pain, unspecified eye] Onset: 7 Resolved: 7 12-19-2016 Episodic Other gastrointestinal disorders (20 sources) Intestinal malabsorption; Translations: [Intestinal malabsorption, unspecified] Onset: 9 Resolved: 9 08-13-2018 Chronic Other gastrointestinal disorders (20 sources) Loose stool; Translations: [Other fecal abnormalities] Resolved: 7 12-19-2016 Episodic Other gastrointestinal disorders (20 sources) Diarrhea; Translations: [Diarrhea, unspecified] Resolved: 2 12-05-2021 Episodic Other gastrointestinal disorders (2 sources) H/O: ulcerative colitis; Translations: [Personal history of other diseases of the digestive system] 04-24-2023 Episodic Other hematologic conditions (20 sources) ESR raised; Translations: [Elevated erythrocyte sedimentation rate] Onset: 3 Resolved: 6 04-19-2014 Episodic Other infections; including parasitic (20 sources) Personal history of other infectious and parasitic diseases; Translations: [Personal history of other infectious and parasitic diseases] Onset: 9 Resolved: 1 04-17-2020 Episodic Other inflammatory condition of skin (20 sources) Intertrigo; Translations: [Erythema intertrigo] Onset: 1 Resolved: 4 04-17-2020 Episodic Other lower respiratory disease (3 sources) Cough; Translations: [Cough] Onset: 5 Resolved: 5 05-02-2014 Episodic Other lower respiratory disease (3 sources) Chronic cough; Translations: [Chronic cough] Resolved: 5 07-20-2014 Episodic Other lower respiratory disease (20 sources) Multiple nodules of lung; Translations: [Other nonspecific abnormal finding of lung field] Onset: 6 04-23-2015 Episodic Other lower respiratory disease (20 sources) Dyspnea; Translations: [Shortness of breath] Onset: 6 Resolved: 7 05-22-2016 Episodic Other lower respiratory disease (7 sources) Nodule of lung; Translations: [Solitary pulmonary nodule] Onset: 4 09-01-2023 Episodic Other nervous system disorders (20 sources) Postoperative pain ; Translations: [Other acute postprocedural pain] Resolved: 7 04-27-2016 Episodic Other non-traumatic joint disorders (12 sources) Multiple joint pain; Translations: [Pain in unspecified joint] Onset: 5 07-15-2024 Episodic Other nutritional; endocrine; and metabolic disorders (20 sources) Overweight in adulthood with body mass index of 25 or more but less than 30; Translations: [Body mass index (BMI) 29.0-29.9, adult] Onset: 5 Resolved: 4 11-23-2014 Episodic Other nutritional; endocrine; and metabolic disorders (20 sources) Weight loss; Translations: [Abnormal weight loss] Resolved: 2 12-05-2021 Episodic Other nutritional; endocrine; and metabolic disorders (20 sources) Recent weight loss; Translations: [Abnormal weight loss] Resolved: 7 09-23-2016 Episodic Other nutritional; endocrine; and metabolic disorders (20 sources) Loss of appetite; Translations: [Anorexia] Onset: 2 Resolved: 2 02-26-2022 Episodic Other nutritional; endocrine; and metabolic disorders (20 sources) Decrease in appetite; Translations: [Anorexia] Onset: 3 Resolved: 4 10-27-2022 Episodic Other screening for suspected conditions (not mental disorders or infectious disease) (20 sources) Elevated C-reactive protein; Translations: [Elevated C-reactive protein (CRP)] Onset: 3 Resolved: 4 04-19-2014 Episodic Other skin disorders (20 sources) Alopecia areata; Translations: [Alopecia areata, unspecified] Onset: 5 06-14-2014 Episodic Other skin disorders (20 sources) Facial swelling ; Translations: [Localized swelling, mass and lump, head] Onset: 5 Resolved: 4 07-20-2014 Episodic Other skin disorders (3 sources) Lesion of scalp; Translations: [Disorder of the skin and subcutaneous tissue, unspecified] Onset: 5 Resolved: 5 07-20-2014 Episodic Other skin disorders (20 sources) Eruption; Translations: [Rash and other nonspecific skin eruption] Onset: 5 Resolved: 2 07-20-2014 Episodic Other skin disorders (20 sources) Alopecia; Translations: [Nonscarring hair loss, unspecified] Onset: 5 Resolved: 5 11-24-2021 Episodic Other skin disorders (20 sources) Folliculitis; Translations: [Follicular disorder, unspecified] Onset: 7 Resolved: 7 12-19-2016 Episodic Other skin disorders (20 sources) Anetoderma; 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 skin] Onset: 7 Resolved: 1 04-17-2020 Episodic Other skin disorders (20 sources) Skin nodule; Translations: [Localized swelling, mass and lump, unspecified] Onset: 1 Resolved: 2 06-17-2021 Episodic Other skin disorders (19 sources) Hidradenitis suppurativa; Translations: [Hidradenitis suppurativa] Onset: 4 09-01-2023 Episodic Residual codes; unclassified (20 sources) History of excision of small intestine; Translations: [Acquired absence of other specified parts of digestive tract] Onset: 6 02-24-2022 Episodic Residual codes; unclassified (20 sources) At risk for infection; Translations: [Other specified personal risk factors, not elsewhere classified] Onset: 2 11-24-2021 Episodic Residual codes; unclassified (1 source) Gestation period, 19 weeks; Translations: [19 weeks gestation of ] 04-24-2023 Episodic Results Test Name Value Interpretation Reference Range Facility ALL CBC WITH AUTO DIFFon BASOPHILS ABSOLUTE AUTO 0.1 [facility] Basophils/100 WBC (Bld) 0.5 % 0.2 - 2.0 % [facility] Eosinophils/100 WBC (Bld) 2 % 0.9 - 7.0 % [facility] Erythrocyte distribution width (RBC) [Ratio] 13.9 % 11.0 - 15.0 % [facility] Hematocrit (Bld) [Volume fraction] 36.6 % 36.0 - 48.0 % [facility] Hemoglobin (Bld) [Mass/Vol] 11.9 g/dL Low 12.0 - 16.0 g/dL [facility] IMMATURE GRANULOCYTES ABS AUTO 0.11 High [facility] Immature granulocytes/100 WBC (Bld) 1.1 % High 0.0 - 0.5 % [facility] Interpretation and review of laboratory results Abnormal [facility] LYMPHOCYTES ABSOLUTE AUTO 1.1 Low [facility] Lymphocytes/100 WBC (Bld) 11.1 % Low 20.5 - 60.0 % [facility] MCH (RBC) [Entitic mass] 28 pg 26.7 - 34.0 pg [facility] MCHC (RBC) [Mass/Vol] 32.5 g/dL 29.9 - 35.2 g/dL [facility] MCV (RBC) [Entitic vol] 86.1 fL 81.0 - 99.0 fL [facility] MONOCYTES ABSOLUTE AUTO 0.9 High [facility] Monocytes/100 WBC (Bld) 8.6 % 1.7 - 12.0 % [facility] NEUTROPHILS ABSOLUTE AUTO 7.7 High [facility] Neutrophils/100 WBC (Bld) 76.7 % High 43.0 - 75.0 % [facility] Platelet mean volume (Bld) [Entitic vol] 10.3 fL 9.5 - 13.5 fL [facility] EO # 0.2 [facility] TB PLT 257 [facility] RBC 4.25 [facility] WBC 10 [facility] BETA HCG, URINE (POC DEVICE) on 11-02-2024 Beta HCG ( test) Ql (U) Negative Negative [facility] Interpretation and review of laboratory results Normal [facility] Test performed at address of the patient encounter. [facility] Beta HCG ( test) Ql (U) Negative Negative [facility] Interpretation and review of laboratory results Normal [facility] Test performed at address of the patient encounter. [facility] CONTINUOUS CARDIAC MONITORIN G STRIPon 11-02-2024 [facility] CONTINUOUS CARDIAC MONITORIN G STRIPOrdered By: Unassigned Pacs on 11-02-2024 [facility] Work Phone: SURG PATH REQUESTon 11-03-19 Case Report Normal [facility] Comment on above: Result Comment: Surg ical Pathology Report Case: [id number] Authorizing Provider: Clifford Rodas MD Collected: 11/02/2024 05:03 PM Ordering Location: [facility] PERIOP Received: 11/02/2024 05:17 PM Pathologist: Lavern Restrepo MD Specimen: SURG PATH, Anal canal biopsies Performed By: #### F OLSMargareth, FERISAIAH, B12B #### [facility] (DEFAULT) [address] [place] [address] Clinical History Crohn's disease of b oth small and large intestine with complication. Medical History: Crohn's colitis. 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 Asthma. Pulmonary nodules. Iron deficiency anemia. Hidradenitis suppurativa. Pulmonary nodule. Migraine. Normal [facility] Comment on above: Performed By: #### F OLSB, FERIB, B12B #### [facility] (DEFAULT) [address] [place] [address] Diagnosis Comments Normal [facility] Comment on above: Result Comment: Bloc k Stain Result A1-2 CMV Negative A1-3 DOG-1 Negative A1-4 CD117 (c-kit) Negative A1-5 S-100 Negative A1-6 CAM 5.2 Negative A1-7 Smooth Muscle Actin Negative Performed By: #### F OLSB, FERIB, B12B #### [facility] (DEFAULT) [address] [place] [address] Gross Description Normal [facility] Comment on above: Result Comment: The specimen is received in one properly labeled container with the patient's name and accession number. A. The specimen is designated anal canal biopsies and consists of two fragments of ugalde-pink soft tissue, up to 0.2-0.3 cm in greatest dimension. TE 1 Lab Use Only: JobID [id number] Grosser for this case was: Shari Machuca Performed By: #### F OLSB, FERIB, B12B #### [facility] (DEFAULT) [address] [address] Microscopic Description Normal [facility] Comment on above: Result Comment: A mi croscopic examination was performed. All controls show appropriate reactivity. All immunohistochemistry (IHC), in situ hybridization (MARCELLE), and histochemical tests were developed by and are performed at the [facility], Histology and IHC Lab, [address] [place] [address]. All Immunofluorescent (IF) tests were developed by and are performed at the [facility], Renal Division, [address] [place] [address]. All tests reported here, except for PD-L1, have not been cleared by or approved by the [place] Food and Drug Administration (FDA). The laboratory is regulated under CLIA as qualified to perform high-complexity testing. The tests are used for clinical purposes. They should not be regarded as investigational or for research. Performed By: #### F KEISHAB, AUNG, B12B #### [facility] (DEFAULT) [address] [place] [address] Pathologic Diagnosis Normal [facility] Comment on above: Result Comment: A. A nal canal, biopsy: Negative for malignancy Polypoid inflamed granulation tissue with erosion and dilated / congested vessels Negative for granulomas No epithelial lining observed at 1118 EDT Performed By: #### F KEISHAB, AUNG, B12B #### [facility] (DEFAULT) [address] [place] [address] Professional Interpretation Performed at: Normal [facility] Comment on above: Result Comment: [facility] For Immediate Release to [facility] Yes [address] [place] [address] Performed By: #### F OLSB, FERIB, B12B #### [facility] (DEFAULT) [address] [place] [address] CT Abdomen and Pelvis W [facility] rast Claudette 11-01-2024 EXAMINATION: CT ENTEROGRAPHY 10/26/2024 11:14 am TECHNIQUE: CT of the abdomen and pelvis was performed after the administration of intravenous contrast and negative oral contrast. Automated exposure control, iterative reconstruction, and/or weight based adjustment of the mA/kV was utilized to reduce the radiation dose to as low as reasonably achievable. COMPARISON: None. HISTORY: ORDERING SYSTEM PROVIDED HISTORY: Crohn's disease of both small and large intestine with complication (HCC) TECHNOLOGIST PROVIDED HISTORY: STAT Creatinine as needed:->No Reason for Exam: new polyps, inflamation and colon restriction found on colonoscopy. Additional signs and symptoms: Crohn's disease of both small and large intestine with complication Relevant Medical/Surgical History: colon resection FINDINGS: Lower Chest: Clear lung bases. Organs: The liver, gallbladder, spleen, pancreas, and adrenal glands demonstrate no acute findings. The spleen is mildly enlarged, measuring 14.5 cm in length. The kidneys are symmetric in size, contour and enhancement. No solid renal masses. No hydronephrosis. GI/Bowel: The stomach is normal. The patient appears to be status post resection of the cecum and terminal ileum. The anastomosis is unremarkable. There appears to be a short segment of luminal narrowing involving the distal ileum with minimal associated wall thickening (see series 601, image 38). It is unclear if this is related to a mild stricture versus peristalsis. No associated obstruction. Elsewhere, small bowel including the carlos terminal ileum is unremarkable. The remaining colon demonstrates mild wall thickening of a segment of the proximal sigmoid colon. Moderate wall thickening of the rectum is identified with luminal narrowing. No obvious perirectal abscess or perianal fistula; however, there is prominence of soft tissue in the right perineum. Pelvis: Normal bladder. Uterus is unremarkable. Normal right adnexa. A left adnexal dermoid measures 3.3 x 2.8 cm. Peritoneum/Retroperiton eum: Trace free fluid is seen in the pelvis. No free air. No pathologic lymphadenopathy. Abdominal aorta and its branches are patent and normal in course and caliber. No significant atherosclerosis. Bones/Soft Tissues: No acute or aggressive osseous lesion. Prominent asymmetric soft tissue is identified in the right perineum compared to the left (see series 2, image 187); however, no discrete abscess or fistula identified. IMPRESSION: 1. Status post resection of the cecum and terminal ileum. The anastomosis is unremarkable. 2. Short segment of luminal narrowing involving the distal ileum with minimal associated wall thickening. It is unclear if this is related to a mild stricture versus peristalsis. No associated obstruction. 3. Mild wall thickening of a segment of the proximal sigmoid colon. Moderate wall thickening of the rectum is identified with luminal narrowing. Findings are suggestive of [id number] Crohn's disease. 4. Prominent asymmetric soft tissue in the right perineum compared to the left; however, no discrete abscess or fistula identified. 5. Left adnexal dermoid measuring 3.3 x 2.8 cm. 6. Mild splenomegaly. Interpreted by: Rubia Teague MD Signed by: Rubia Teague MD 10/31/24 Final result [facility] Radiology, Radiologi MD rosie - 11/01/2024 EXAMINATION: CT ENTEROGRAPHY 10/26/2024 11:14 am TECHNIQUE: CT of the abdomen and pelvis was performed after the administration of intravenous contrast and negative oral contrast. Automated exposure control, iterative reconstruction, and/or weight based adjustment of the mA/kV was utilized to reduce the radiation dose to as low as reasonably achievable. COMPARISON: None. HISTORY: ORDERING SYSTEM PROVIDED HISTORY: Crohn's disease of both small and large intestine with complication ([facility]) TECHNOLOGIST PROVIDED HISTORY: STAT Creatinine as needed:->No Reason for Exam: new polyps, inflamation and colon restriction found on colonoscopy. Additional signs and symptoms: Crohn's disease of both small and large intestine with complication Relevant Medical/Surgical History: colon resection FINDINGS: Lower Chest: Clear lung bases. Organs: The liver, gallbladder, spleen, pancreas, and adrenal glands demonstrate no acute findings. The spleen is mildly enlarged, measuring 14.5 cm in length. The kidneys are symmetric in size, contour and enhancement. No solid renal masses. No hydronephrosis. GI/Bowel: The stomach is normal. The patient appears to be status post resection of the cecum and terminal ileum. The anastomosis is unremarkable. There appears to be a short segment of luminal narrowing involving the distal ileum with minimal associated wall thickening (see series 601, image 38). It is unclear if this is related to a mild stricture versus peristalsis. No associated obstruction. Elsewhere, small bowel including the carlos terminal ileum is unremarkable. The remaining colon demonstrates mild wall thickening of a segment of the proximal sigmoid colon. Moderate wall thickening of the rectum is identified with luminal narrowing. No obvious perirectal abscess or perianal fistula; however, there is prominence of soft tissue in the right perineum. Pelvis: Normal bladder. Uterus is unremarkable. Normal right adnexa. A left adnexal dermoid measures 3.3 x 2.8 cm. Peritoneum/Retroperiton eum: Trace free fluid is seen in the pelvis. No free air. No pathologic lymphadenopathy. Abdominal aorta and its branches are patent and normal in course and caliber. No significant atherosclerosis. Bones/Soft Tissues: No acute or aggressive osseous lesion. Prominent asymmetric soft tissue is identified in the right perineum compared to the left (see series 2, image 187); however, no discrete abscess or fistula identified. IMPRESSION: 1. Status post resection of the cecum and terminal ileum. The anastomosis is unremarkable. 2. Short segment of luminal narrowing involving the distal ileum with minimal associated wall thickening. It is unclear if this is related to a mild stricture versus peristalsis. No associated obstruction. 3. Mild wall thickening of a segment of the proximal sigmoid colon. Moderate wall thickening of the rectum is identified with luminal narrowing. Findings are suggestive of [id number] Crohn's disease. 4. Prominent asymmetric soft tissue in the right perineum compared to the left; however, no discrete abscess or fistula identified. 5. Left adnexal dermoid measuring 3.3 x 2.8 cm. 6. Mild splenomegaly. Interpreted by: Rubia Teague MD Signed by: Rubia Teague MD 10/31/24 Final result [facility] CT Abdomen and Pelvis W cont rast IVOrdered By: Radiologist Radiology on 11-01-2024 [facility] Work Phone: CT Abdomen and Pelvis W cont rast Claudette 10-31-2024 Radiology Study observation (narrative) [facility] CT ENTEROGRAPHY W WO CONTRAS Ton 10-31-2024 CT ENTEROGRAPHY W WO CONTRAST EXAMINATION: CT ENTEROGRAPHY 10/26/2024 11:14 am TECHNIQUE: CT of the abdomen and pelvis was performed after the administration of intravenous contrast and negative oral contrast. Automated exposure control, iterative reconstruction, and/or weight based adjustment of the mA/kV was utilized to reduce the radiation dose to as low as reasonably achievable. COMPARISON: None. HISTORY: ORDERING SYSTEM PROVIDED HISTORY: Crohn's disease of both small and large intestine with complication (HCC) TECHNOLOGIST PROVIDED HISTORY: STAT Creatinine as needed:->No Reason for Exam: new polyps, inflamation and colon restriction found on colonoscopy. Additional signs and symptoms: Crohn's disease of both small and large intestine with complication Relevant Medical/Surgical History: colon resection FINDINGS: Lower Chest: Clear lung bases. Organs: The liver, gallbladder, spleen, pancreas, and adrenal glands demonstrate no acute findings. The spleen is mildly enlarged, measuring 14.5 cm in length. The kidneys are symmetric in size, contour and enhancement. No solid renal masses. No hydronephrosis. GI/Bowel: The stomach is normal. The patient appears to be status post resection of the cecum and terminal ileum. The anastomosis is unremarkable. There appears to be a short segment of luminal narrowing involving the distal ileum with minimal associated wall thickening (see series 601, image 38). It is unclear if this is related to a mild stricture versus peristalsis. No associated obstruction. Elsewhere, small bowel including the carlos terminal ileum is unremarkable. The remaining colon demonstrates mild wall thickening of a segment of the proximal sigmoid colon. Moderate wall thickening of the rectum is identified with luminal narrowing. No obvious perirectal abscess or perianal fistula; however, there is prominence of soft tissue in the right perineum. Pelvis: Normal bladder. Uterus is unremarkable. Normal right adnexa. A left adnexal dermoid measures 3.3 x 2.8 cm. Peritoneum/Retroperiton eum: Trace free fluid is seen in the pelvis. No free air. No pathologic lymphadenopathy. Abdominal aorta and its branches are patent and normal in course and caliber. No significant atherosclerosis. Bones/Soft Tissues: No acute or aggressive osseous lesion. Prominent asymmetric soft tissue is identified in the right perineum compared to the left (see series 2, image 187); however, no discrete abscess or fistula identified. IMPRESSION: 1. Status post resection of the cecum and terminal ileum. The anastomosis is unremarkable. 2. Short segment of luminal narrowing involving the distal ileum with minimal associated wall thickening. It is unclear if this is related to a mild stricture versus peristalsis. No associated obstruction. 3. Mild wall thickening of a segment of the proximal sigmoid colon. Moderate wall thickening of the rectum is identified with luminal narrowing. Findings are suggestive of [id number] Crohn's disease. 4. Prominent asymmetric soft tissue in the right perineum compared to the left; however, no discrete abscess or fistula identified. 5. Left adnexal dermoid measuring 3.3 x 2.8 cm. 6. Mild splenomegaly. Interpreted by: Rubia Teague MD Signed by: Rubia Teague MD 10/31/24 Final result Normal [facility] XR CHEST 2 VIEWSon XR CHEST 2 VIEWS XR CHEST 2 VIEWS Reason for exam: Acute cough, congestion for three days Technique: PA and lateral view Findings: The heart size is normal. The pulmonary vascularity is unremarkable. The lungs are fully expanded and clear. No pleural abnormalities are seen. No evidence of mediastinal or hilar enlargement. The osseous structures are intact. No soft tissue abnormalities are seen. IMPRESSION: Normal chest x-ray. Dictated on: 09/26/2024 5:09 PM This report has been electronically signed and approved by the interpreting Radiologist. Normal Not Available C REACTIVE PROTEINon 025 CRP High sensitivity method [Mass/Vol] 27.7 mg/L High NINF - 10.00 mg/L [facility] CRP [Mass/Vol] 27.70 mg/L High <10.00 [facility] Comment on above: Performed By: #### I RBC, CMPN, CRP #### [facility] (DEFAULT) [address] [place] [address] CBC,PLATELETSon 09-22-2024 Erythrocyte distribution width (RBC) [Ratio] 13.1 % 10.8 - 14.9 % [facility] Hematocrit (Bld) [Volume fraction] 37.1 % 34.9 - 44.3 % [facility] Hemoglobin (Bld) [Mass/Vol] 11.6 g/dL 11.4 - 15.2 g/dL [facility] Interpretation and review of laboratory results Abnormal [facility] MCH (RBC) [Entitic mass] 26.8 pg 25.9 - 33.9 pg [facility] MCHC (RBC) [Mass/Vol] 31.3 g/dL Low 31.4 - 35.9 g/dL [facility] MCV (RBC) [Entitic vol] 85.7 fL 79.6 - 97.7 fL [facility] Platelet mean volume (Bld) [Entitic vol] 10.1 fL 8.5 - 12.2 fL [facility] Platelets (Bld) [#/Vol] 296 10*3/uL 150 - 393 K/uL [facility] RBC (Bld) [#/Vol] 4.33 10*6/uL [facility] WBC (Bld) [#/Vol] 11.3 10*3/uL High 3.99 - 11. 19 K/uL [facility] Hematocrit (Bld) [Volume fraction] 37.1 % Normal 34.9-44.3 [facility] Comment on above: Performed By: #### H EMOGC #### [facility] (DEFAULT) [address] [address] Hemoglobin (Bld) [Mass/Vol] 11.6 g/dL Normal 11.4-15.2 [facility] Comment on above: Performed By: #### H EMOGC #### [facility] (DEFAULT) [address] [address] MCV (RBC) [Entitic vol] 85.7 fL Normal 79.6-97.7 [facility] Comment on above: Performed By: #### H EMOGC #### [facility] (DEFAULT) [address] [address] Mean Cell Hgb 26.8 pg Normal 25.9-33.9 [facility] Comment on above: Performed By: #### H EMOGC #### [facility] (DEFAULT) [address] [address] Mean Cell Hgb Conc 31.3 g/dL Low 31.4-35.9 [facility] Comment on above: Performed By: #### H EMOGC #### [facility] (DEFAULT) [address] [address] Platelet mean volume (Bld) [Entitic vol] 10.1 fL Normal 8.5-12.2 [facility] Comment on above: Performed By: #### H EMOGC #### [facility] (DEFAULT) [address] [address] Platelets (Bld) [#/Vol] 296 10*3/uL Normal 150-393 [facility] Comment on above: Performed By: #### H [facility] #### [facility] (DEFAULT) [address] [place] [address] RBC (Bld) [#/Vol] 4.33 10*6/uL Normal 3.91-5.04 [facility] Comment on above: Performed By: #### H EMO #### [facility] (DEFAULT) [address] [place] [address] RBC Distribution 13.1 % Normal 10.8-14.9 [facility] Comment on above: Performed By: #### H EMO #### [facility] (DEFAULT) [address] [place] [address] WBC (Bld) [#/Vol] 11.30 10*3/uL High 3.99-11.19 [facility] Comment on above: Performed By: #### H EMO #### [facility] (DEFAULT) [address] [place] [address] COMPREHENSIVE METABOLIC PANE Jeremias 09-22-2024 Albumin [Mass/Vol] 3.8 g/dL 3.5 - 5.0 g/dL [facility] ALP [Catalytic activity/Vol] 64 U/L 32 - 126 U/L [facility] ALT [Catalytic activity/Vol] 6 U/L Low 9 - 48 U/L [facility] Anion gap [Moles/Vol] 14 mmol/L 7 - 17 mmol/L [facility] AST [Catalytic activity/Vol] 13 U/L 10 - 39 U/L [facility] Bilirubin [Mass/Vol] 0.5 mg/dL NINF - 1.5 mg/dL [facility] Calcium [Mass/Vol] 9.2 mg/dL 8.6 - 10. 5 mg/dL [facility] Chloride [Moles/Vol] 103 mmol/L 98 - 10 8 mmol/L [facility] CO2 [Moles/Vol] 26 mmol/L 21 - 31 mmol/L [facility] Creatinine [Mass/Vol] 0.73 mg/dL 0.50 - 1.20 mg/dL [facility] eGFR, CKD-EPI, Female - PINF [facility] Comment on above: Reported eGFR is bas ed on the CKD-EPI 2020 equation using creatinine, age, and sex. Glucose [Mass/Vol] 82 mg/dL 70 - 179 mg/dL [facility] Osmolality Calc [Osmolality] 289 [facility] Potassium [Moles/Vol] 4.2 mmol/L 3.5 - 5.0 mmol/L [facility] Protein [Mass/Vol] 5.5 g/dL Low 6.4 - 8.3 g/dL [facility] Sodium [Moles/Vol] 139 mmol/L 135 - 145 mmol/L [facility] Urea nitrogen [Mass/Vol] 10 mg/dL 7 - 25 mg/dL [facility] Urea nitrogen/Creatinine [Mass ratio] 14 mg/mg [facility] Albumin [Mass/Vol] 3.8 g/dL Normal 3.5-5.0 [facility] Comment on above: Performed By: #### I RBC, CMPN, CRP #### [facility] (DEFAULT) [address] [place] [phone] ALP [Catalytic activity/Vol] 64 U/L Normal 32-126 [facility] Comment on above: Performed By: #### I RBC, CMPN, CRP #### [facility] (DEFAULT) [address] [place] [address] ALT [Catalytic activity/Vol] 6 U/L Low 9-48 [facility] Comment on above: Performed By: #### I RBC, CMPN, CRP #### [facility] (DEFAULT) [address] [place] [address] Anion gap [Moles/Vol] 14 mmol/L Normal 7-17 [facility] Comment on above: Performed By: #### I RBC, CMPN, CRP #### [facility] (DEFAULT) [address] [place] [address] AST [Catalytic activity/Vol] 13 U/L Normal 10-39 [facility] Comment on above: Performed By: #### I RBC, CMPN, CRP #### [facility] (DEFAULT) [address] [place] [address] Bilirubin [Mass/Vol] 0.5 mg/dL Normal <1.5 [facility] Comment on above: Performed By: #### I RBC, CMPN, CRP #### [facility] (DEFAULT) [address] [place] [address] Calcium [Mass/Vol] 9.2 mg/dL Normal 8.6-10.5 [facility] Comment on above: Performed By: #### I RBC, CMPN, CRP #### [facility] (DEFAULT) [address] [place] [address] Chloride [Moles/Vol] 103 mmol/L Normal 98-108 [facility] Comment on above: Performed By: #### I RBC, CMPN, CRP #### [facility] (DEFAULT) [address] [place] [address] CO2 [Moles/Vol] 26 mmol/L Normal 21-31 [facility] Comment on above: Performed By: #### I RBC, CMPN, CRP #### [facility] (DEFAULT) [address] [place] [address] Creatinine [Mass/Vol] 0.73 mg/dL Normal 0.50-1.20 [facility] Comment on above: Performed By: #### I RBC, CMPN, CRP #### [facility] (DEFAULT) [address] [place] [address] eGFR, CKD-EPI, Female > Normal >=60 [facility] Comment on above: Result Comment: Repo rted eGFR is based on the CKD-EPI 2020 equation using creatinine, age, and sex. Performed By: #### I RBC, CMPN, CRP #### [facility] (DEFAULT) [address] [place] [address] Glucose [Mass/Vol] 82 mg/dL Normal Nonfastin -179 mg/dL; Fastin-99 [facility] Comment on above: Performed By: #### I RBC, CMPN, CRP #### [facility] (DEFAULT) [address] [place] [address] Osmolality [Osmolality] 289 mosm/kg Normal 278-305 [facility] Comment on above: Performed By: #### I RBC, CMPN, CRP #### [facility] (DEFAULT) [address] [place] [address] Potassium [Moles/Vol] 4.2 mmol/L Normal 3.5-5.0 [facility] Comment on above: Performed By: #### I RBC, CMPN, CRP #### [facility] (DEFAULT) [address] [place] [address] Protein [Mass/Vol] 5.5 g/dL Low 6.4-8.3 [facility] Comment on above: Performed By: #### I RBC, CMPN, CRP #### [facility] (DEFAULT) [address] [place] [address] Sodium [Moles/Vol] 139 mmol/L Normal 135-145 [facility] Comment on above: Performed By: #### I RBC, CMPN, CRP #### [facility] (DEFAULT) [address] [place] [address] Urea nitrogen [Mass/Vol] 10 mg/dL Normal 7-25 [facility] Comment on above: Performed By: #### I RBC, CMPN, CRP #### [facility] (DEFAULT) [address] [place] [address] Urea nitrogen/Creatinine [Mass ratio] 14 mg/mg Normal [facility] Comment on above: Performed By: #### I RBC, CMPN, CRP #### [facility] (DEFAULT) [address] [place] [address] FERRITINon 09-22-2024 Ferritin [Mass/Vol] 197.1 ng/mL 7.3 - 27 0.7 ng/mL [facility] Interpretation and review of laboratory results Normal [facility] Ferritin [Mass/Vol] 197.1 ng/mL Normal 7.3-270.7 [facility] Comment on above: Performed By: #### F OLSB, FERIB, B12B #### [facility] (DEFAULT) [address] [place] [address] FOLATE, SERUMon 09-22-2024 Folate [Mass/Vol] 9.14 ng/mL 5.38 - PIN F ng/mL [facility] Interpretation and review of laboratory results Normal [facility] Folate 9.14 ng/mL Normal >5.38 [facility] Comment on above: Performed By: #### F OLSB, FERIB, B12B #### [facility] (DEFAULT) [address] [place] [address] IRON/IRON BINDING/TRANSFERRI Non 09-22-2024 Iron [Mass/Vol] 19 ug/dL Low [facility] Iron binding capacity [Mass/Vol] 205 Low [facility] Iron saturation [Mass fraction] 9 % Low 20 - 55 % [facility] Transferrin [Mass/Vol] 164 mg/dL Low 200 - 400 mg/dL [facility] Iron [Mass/Vol] 19 ug/dL Low 40-174 [facility] Comment on above: Performed By: #### I RBC, CMPN, CRP #### [facility] (DEFAULT) [address] [place] [address] Iron Saturation 9 % Low 20-55 [facility] Comment on above: Performed By: #### I RBC, CMPN, CRP #### [facility] (DEFAULT) [address] [place] [address] Total Iron Binding Capacity 205 mcg/dL Low 250-425 [facility] Comment on above: Performed By: #### I RBC, CMPN, CRP #### [facility] (DEFAULT) [address] [place] [address] Transferrin [Mass/Vol] 164 mg/dL Low 200-400 [facility] Comment on above: Performed By: #### I RBC, CMPN, CRP #### [facility] (DEFAULT) [address] [place] [address] METHYLMALONIC ACIDon 025 METHYLMALONIC ACID 0.11 nmol/mL Normal <=0.40 [facility] Comment on above: Result Comment: ADDITIONAL INFORMATION This test was developed and its performance characteristics determined by [facility] in a manner consistent with CLIA requirements. This test has not been cleared or approved by the U.S. Food and Drug Administration. Test Performed by: [facility] [place] [address] Gypsum Calciner: Wyatt England Ph.D.; CLIA# [id number] Performed By: #### Y MMA #### [facility] (DEFAULT) [address] [place] [address] No Panel Informationon 09-22 Interpretation and review of laboratory results Abnormal [facility] SEDIMENTATION RATE, AUTOMATE Don 09-22-2024 ESR (Bld) [Velocity] 20 mm/h High NINF [facility] Hospital Interpretation and review of laboratory results Abnormal [facility] ESR Westergren 20 mm/hr High <20 [facility] Comment on above: Performed By: #### F OLSB, FERIB, B12B #### [facility] (DEFAULT) [address] [place] [id number] VITAMIN B12on 09-22-2024 Cobalamin (Vitamin B12) [Mass/Vol] 602 pg/mL 211 - 911 pg/mL [facility] Comment on above: Testing of Methylmal onic Acid and Intrinsic Factor Blocking Antibody are recommended if clinical suspicion for pernicious anemia due to B12 deficiency is high for patients with intermediate B12 levels (211 to 400 pg/mL) to rule out spurious heterophile antibodies. Interpretation and review of laboratory results Normal [facility] Cobalamin (Vitamin B12) [Mass/Vol] 602 pg/mL Normal 211-911 [facility] Comment on above: Result Comment: Test ing of Methylmalonic Acid and Intrinsic Factor Blocking Antibody are recommended if clinical suspicion for pernicious anemia due to B12 deficiency is high for patients with intermediate B12 levels (211 to 400 pg/mL) to rule out spurious heterophile antibodies. Performed By: #### F OLSB, FERISAIAH, B12B #### [facility] (DEFAULT) [address] [address] VITAMIN D (25-HYDROXY,TOTAL) on 09-22-2024 25-OH Vitamin D Total 33.2 ng/mL Normal 30.0-100.0 [facility] Comment on above: Order Comment: Vitam in D values have been shown to be falsely decreased in lipemic samples and should be interpreted with caution. Result Comment: <10 Deficiency 10-29 Insufficiency 30-100 Optimal Level >100 Possible Toxicity Performed By: #### D 25OH #### [facility] (DEFAULT) [address] [address] ZINC, SERUMon 09-22-2024 ZINC, SERUM 44 mcg/dL Low 60-106 [facility] Comment on above: Result Comment: ADDITIONAL INFORMATION This test was developed and its performance characteristics determined by [facility] in a manner consistent with CLIA requirements. This test has not been cleared or approved by the U.S. Food and Drug Administration. Test Performed by: [facility] - [address] [address] [place]psum Calciner: Wyatt England Ph.D.; CLIA# [id number] Performed By: #### Y ZINC #### [facility] ([facility]) [address] [place] [address] DIAGNOSTIC COLONOSCOPYon [facility] Patient Name: [place] Procedure Date: 09/06/2024 1:37 PM Date of : 2000 Admit Type: Outpatient Age: 23 Room: Endo 2 Gender: Female Note Status: Finalized Attending MD: Tu Dalton MD, [id number] Procedure: Colonoscopy Attending Participation: I personally performed the entire procedure. Indications: High risk colon cancer surveillance: Crohn's colitis of 8 (or more) years duration with one-third (or more) of the colon involved Providers: Tu Dalton MD (Doctor), Nadia Rivera, DEEPTI (Nurse), Rajendra Ricardo, DEEPTI (Nurse) Referring MD: Milind Fitch, FINANCIAL ADMINISTRATION OFFICER-WASH BOX OPERATOR Complications: No immediate complications. Estimated blood loss: Minimal. Medicines: Monitored Anesthesia Care Requesting Provider: Procedure: Pre-Anesthesia Assessment: - Prior to the procedure, a History and Physical was performed, and patient medications and allergies were reviewed. The patient's tolerance of previous anesthesia was also reviewed. The risks and benefits of the procedure and the sedation options and risks were discussed with the patient. All questions were answered, and informed consent was obtained. Prior Anticoagulants: The patient has taken no anticoagulant or antiplatelet agents. ASA Grade Assessment: III - A patient with severe systemic disease. After reviewing the risks and benefits, the patient was deemed in satisfactory condition to undergo the procedure. After I obtained informed consent, the scope was passed under direct vision. Throughout the procedure, the patient's blood pressure, pulse, and oxygen saturations were monitored continuously. The Colonscope ([id number]) was introduced through the anus and advanced to the rectum. The patient tolerated the procedure well. The colonoscopy was performed with difficulty due to rectal stricture. Successful completion of the procedure was aided by withdrawing the scope and replacing with the UltraSlim scope. The quality of the bowel preparation was inadequate. The PCF- [id number] was introduced through the anus with the intention of advancing to the cecum. The scope was advanced to the transverse colon before the procedure was aborted. Medications were given. The rectum was photographed. Findings: The digital rectal exam findings include anal stricture. Rectal stricture was noted at about 5cm. The prevented to passage of the adult colonoscopy. The scope was switched to an Ultrathin. The prep was inadequate for colon cancer screening but adequate for evaluation of inflammation up to the mid transverse. Poor prep and significant looping prevented passage of the scope beyond this area. The examined mucosa (distal to the mid transverse) showed diffuse erythema, decreased vascularity, congestion and scattered apthous ulcerations. Biopsies were taken with a cold forceps for histology. Impression: - Preparation of the colon was inadequate. - Rectal stricture was noted at about 5cm. The prevented to passage of the adult colonoscopy. The scope was switched to an Ultrathin. - Question of polyp in the rectal area distal to the rectal stricture vs pseudopolyp - Rectal stricture found on digital rectal exam. - The prep was inadequate for colon cancer screening but adequate for evaluation of inflammation up to the mid transverse. Poor prep and significant looping prevented passage of the scope beyond this area. - The examined mucosa (distal to the mid transverse) showed diffuse erythema, decreased vascularity, congestion and scattered apthous ulcerations. Biopsies were taken with a cold forceps for histology. Recommendation: - Resume previous diet (more content not included)... LAB, [facility] Radiology Study observation (narrative) [facility] HCG ( test) Ql (U)o n 09-06-2024 Beta HCG ( test) Ql (U) Negative [facility] Interpretation and review of laboratory results Normal [facility] SURG PATH REQUESTon 09-07-19 Case Report Normal [facility] Comment on above: Result Comment: Surg ica Pathology Report Case: [id number] Authorizing Provider: Tu Dalton MD Collected: 09/06/2024 02:02 PM Ordering Location: Endoscopy Outpatient Care Received: 09/06/2024 02:11 PM [place] Pathologist: Ric Lechuga MD Specimens: A) - TISSUE, transverse colon bx hx Crohn's disease evaluate disease activity (large forceps) B) - TISSUE, left colon bx hx Crohn's disease evaluate disease activity (large forceps) C) - TISSUE, rectal bx hx Crohn's disease evaluate disease activity (large forceps) Performed By: #### F OLSB, FERIB, B12B #### [facility] (DEFAULT) [address] [place] [address] Clinical History Hx Crohn's disease. Evaluate disease activity. Associated Diagnosis: Crohn's disease of both small and large intestine with complication [K50.819]. Medical History: Crohn's colitis. 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 Pulmonary nodules. Iron deficiency anemia. Hydradenitis suppurativa. Pulmonary nodule. [facility] Comment on above: Performed By: #### F OLSB, FERIB, B12B #### [facility] (DEFAULT) [address] [place] [address] Diagnosis Comments The findings are compatible with patient's history of treated Chron's disease. [facility] Comment on above: Performed By: #### F OLSB, FERIB, B12B #### [facility] (DEFAULT) [address] [place] [address] Gross Description Normal [facility] Comment on above: Result Comment: The specimens are received in three properly labeled containers with the patient's name and accession number. A. The specimen is designated transverse colon bx hx Crohn's disease evaluate disease activity (large forceps) and consists of two fragments of ugalde-pink soft tissue, up to 0.3 cm in greatest dimension. TE 1 B. The specimen is designated left colon bx hx Crohn's disease evaluate disease activity (large forceps) and consists of three fragments of ugalde-pink soft tissue, from 0.2 up to 0.3 cm in greatest dimension. TE 1 C. The specimen is designated rectal bx hx Crohn's disease evaluate disease activity (large forceps) and consists of two fragments of ugalde-pink soft tissue, up to 0.3 cm in greatest dimension. TE 1 Lab Use Only: JobID [id number] Grosser for this case was: Alanna Esteban Performed By: #### F OLSB, FERIB, B12B #### [facility] (DEFAULT) [address] [place] [address] Microscopic Description A microscopic examination was performed. [facility] Comment on above: Performed By: #### F OLSB, FERIB, B12B #### [facility] (DEFAULT) [address] [address] Pathologic Diagnosis Normal [facility] Comment on above: Result Comment: A. C olon, transverse, biopsy: Chronic colitis, mildly active. See comment No evidence of granulomas, dysplasia or malignancy B. Colon, left, biopsy: Chronic colitis, mildly active, with epithelioid granulomas. See comment No evidence of dysplasia or malignancy C. Rectum, biopsy: Chronic colitis with epithelioid granulomas. See comment No evidence of dysplasia or malignancy. at 0008 EDT Performed By: #### F ROLAND, AUNG, B12B #### [facility] (DEFAULT) [address] [address] Professional Interpretation Performed at: [facility] Comment on above: Result Comment: [facility] For Immediate Release to [facility] Yes [address] [place] [address] Performed By: #### F ROLAND, AUNG, B12B #### [facility] (DEFAULT) [address] [place] [address] CT HEAD WO IV CONTRASTon CT HEAD WO IV CONTRAST CT HEAD WO IV CONTRAST INDICATION: Chronic migraines COMPARISON: None. TECHNIQUE: Axial images were obtained through the brain without the use of intravenous contrast. Coronal and Sagittal reformations were generated. FINDINGS: Ring-shaped detector artifact obscures portions of the frontal lobes bilaterally. CEREBRUM: No visible hemorrhage or mass effect. CEREBELLUM: Normal. BRAINSTEM: Normal. VENTRICLES AND EXTRA-AXIAL SPACES: Ventricles are normal in size and symmetric. There are no extra-axial fluid collections. SKULL/SCALP: Normal. PARANASAL SINUSES AND MASTOID AIR CELLS: Marked mucosal thickening in the visualized paranasal sinuses. The mastoid air cells are clear as visualized. IMPRESSION: 1. No hemorrhage or acute intracranial abnormality. 2. Chronic appearing paranasal sinus mucosal disease as seen. 3. There is a detector artifact obscuring portions of the bilateral frontal lobes. Dictated on: 07/27/2024 11:03 AM This report has been electronically signed and approved by the interpreting Radiologist. Normal Not Available Office Visiton 07-13-2024 Follow-up visit [id number] [place] 2000 F Date Provider Department Center 07/13/2024 JELLY BENITEZ [facility] Gary Heal Family History Problem Relation Age of Onset Stroke Mother Hypertension Father Arthritis Maternal Grandmother Family Status - Relation Status Age at Mother Father Maternal Grandmother Level of Service:22776 MS OFFICE/OUTPATIENT NEW MODERATE MDM 45 MINUTES (GC) Reason for Visit and Comments: New Patient [632] Normal [facility] C. DIFFICILE PCRon C. DIFFICILE PCR Negative [facility] CLINISYNC [facility] ALL CBC WITH AUTO DIFFon BASOPHILS ABSOLUTE AUTO 0 [facility] Basophils/100 WBC (Bld) 0.4 % 0.2 - 2.0 % [facility] Eosinophils/100 WBC (Bld) 2.4 % 0.9 - 7.0 % [facility] Erythrocyte distribution width (RBC) [Ratio] 12.6 % 11.0 - 15.0 % [facility] Hematocrit (Bld) [Volume fraction] 34.1 % Low 36.0 - 48.0 % [facility] Hemoglobin (Bld) [Mass/Vol] 11.3 g/dL Low 12.0 - 16.0 g/dL [facility] IMMATURE GRANULOCYTES ABS AUTO 0.03 [facility] Immature granulocytes/100 WBC (Bld) 0.3 % 0.0 - 0.5 % [facility] Interpretation and review of laboratory results Abnormal [facility] LYMPHOCYTES ABSOLUTE AUTO 1.1 Low [facility] Lymphocytes/100 WBC (Bld) 11.4 % Low 20.5 - 60.0 % [facility] MCH (RBC) [Entitic mass] 28.8 pg 26.7 - 34.0 pg [facility] MCHC (RBC) [Mass/Vol] 33.1 g/dL 29.9 - 35.2 g/dL [facility] MCV (RBC) [Entitic vol] 87 fL 81.0 - 99.0 fL [facility] MONOCYTES ABSOLUTE AUTO 0.7 NOMS [facility] Monocytes/100 WBC (Bld) 8 % 1.7 - 12.0 % [facility] NEUTROPHILS ABSOLUTE AUTO 7.2 High [facility] Neutrophils/100 WBC (Bld) 77.5 % High 43.0 - 75.0 % [facility] Platelet mean volume (Bld) [Entitic vol] 10.2 fL 9.5 - 13.5 fL [facility] EO # 0.2 [facility] PLT 245 [facility] RBC 3.92 Low [facility] WBC 9.3 [facility] Laboratory - Microbiology an d Antimicrobial susceptibilityon 05-17-2024 SARS-CoV-2 (COVID-19) RNA SHARLA+probe Ql (Unsp spec) Negative [facility] No Panel Informationon 05-17 FLU A Negative [facility] FLU B Negative [facility] Interpretation and review of laboratory results Normal [facility] HCG ( test) Qlon HCG ( test) Ql (U) Negative Negative [facility] Service comment 40 (Unsp spec) [Interp] First morning urine is the specimen of choice for urine test. False negative results can occur when random urine specimens are tested. A serum test is recommended if results do not correlate with the patient's clinical condition. [facility] POCT HCG, Urine Qualitativeo n 03-22-2024 Beta HCG ( test) Ql (U) Negative Normal NEG [facility] Comment: First morning urine is the specimen of choice for urine test. False negative results can occur when random urine specimens are tested. A serum test is recommended if results do not correlate with the patient's clinical condition. Normal [facility] CT Sinuses WO contraston 1.Decreased, but persistent mucosal thickening of the right maxillary sinus. 2.Minimal mucosal thickening of the right frontal and left maxillary sinus. 3.Postoperative changes from prior endoscopic sinus surgery. [facility] Yann Phillips MD - 02/29/2024 REASON FOR EXAM: nasal congestion ;Chronic sinusitis, unspecified location PROCEDURE: CT SINUSES STEALTH WITHOUT CONTRAST COMPARISON: Prior sinus CT dated May 23, 2021. TECHNIQUE: Noncontrast CT of the sinuses was performed. FINDINGS: Postoperative changes from prior endoscopic sinus surgery with bilateral medial antrectomies, uncinatectomies, and partial ethmoidectomies. Decreased, but persistent mucosal thickening of the right maxillary sinus. No air-fluid levels or osseous erosions. There is minimal mucosal thickening within the right frontal sinus and left maxillary sinus. The sphenoid sinuses and residual ethmoid air cells are clear. Mild apex right posterior nasal septal deviation. The mastoid air cells and middle ear cavities are clear. The low-dose technique limits assessment of the intracranial structures. The soft tissues of the face and orbits are normal. IMPRESSION 1.Decreased, but persistent mucosal thickening of the right maxillary sinus. 2.Minimal mucosal thickening of the right frontal and left maxillary sinus. 3.Postoperative changes from prior endoscopic sinus surgery. [facility] Radiology Study observation (narrative) [facility] CT Sinuses WO contrastOrdere d By: Yann Phillips on 02-29-[address] [facility] Work Phone: Provider [place] 02-19-2024 Provider Orders [id number] [facility] [id number]#[id number] [facility] [facility]24 Provider Orders [id number]#[id number] [facility] DIAGNOSTIC COLONOSCOPYon [facility] Patient Name: [place] Procedure Date: 11/18/2023 10:04 AM Date of : 2000 Admit Type: Outpatient Age: 23 Room: [facility] 3 Gender: Female Note Status: Finalized Attending MD: Sharath Lambert MD, [id number] Procedure: Colonoscopy Indications: Last colonoscopy: 2019, Disease activity assessment of Crohn's disease of the small bowel and colon Providers: Sharath Lambert MD (Doctor), Chey Lilly RN (Nurse), Angeles Garcia RN (Nurse), Herbie Etienne MD (Anesthesia Staff) Patient Profile: This is a 23 year old female. Refer to note in patient chart for documentation of history and physical. Taking UST q8w with next dose due tomorrow. Has had loose stools over the past few weeks which is new. No other IBD symptoms. Referring MD: Milind Fitch APRN-ALEXANDR (Referring MD), Kye Solis MD (Referring MD) Medicines: Monitored Anesthesia Care Complications: No immediate complications. Requesting Provider: Procedure: Pre-Anesthesia Assessment: - Prior to the procedure, a History and Physical was performed, and patient medications and allergies were reviewed. The patient's tolerance of previous anesthesia was also reviewed. The risks and benefits of the procedure and the sedation options and risks were discussed with the patient. All questions were answered, and informed consent was obtained. Prior Anticoagulants: The patient has taken no anticoagulant or antiplatelet agents. ASA Grade Assessment: II - A patient with mild systemic disease. After reviewing the risks and benefits, the patient was deemed in satisfactory condition to undergo the procedure. After I obtained informed consent, the scope was passed under direct vision. Throughout the procedure, the patient's blood pressure, pulse, and oxygen saturations were monitored continuously. The Colonoscope ([id number]) was introduced through the anus and advanced to 10 cm into the ileum. The colonoscopy was performed without difficulty. The patient tolerated the procedure well. The quality of the bowel preparation was evaluated using the BBPS ([place] Bowel Preparation Scale) with scores of: Right Colon = 3, Transverse Colon = 3 and Left Colon = 3 (entire mucosa seen well with no residual staining, small fragments of stool or opaque liquid). The total BBPS score equals 9. The terminal ileum, the rectum and ileocolonic anastomosis were photographed. Findings: The Simple Endoscopic Score for Crohn's Disease was determined based on the endoscopic appearance of the mucosa in the following segments: - Ileum: Findings include no ulcers present, no ulcerated surfaces, no affected surfaces and no narrowings. Segment score: 0. - Right Colon: Findings include no ulcers present, no ulcerated surfaces, no affected surfaces and no narrowings. Segment score: 0. - Transverse Colon: Findings include no ulcers present, no ulcerated surfaces, no affected surfaces and no narrowings. Segment score: 0. - Left Colon: Findings include no ulcers present, no ulcerated surfaces, no affected surfaces and no narrowings. Segment score: 0. - Rectum: Findings include no ulcers present, no ulcerated surfaces, no affected surfaces and no narrowings. Segment score: 0. - Total SES-CD aggregate score: 0. Biopsies were taken with a cold forceps for histology. The digital rectal exam findings include anal stricture. Localized mild inflammation characterized by erythema, friability, stenosis and scarring was found at the anus and in the distal rectum. Biopsies were taken with a cold forceps for histology. Impression: - Simple Endoscopic Score for Crohn's Disease: 0, mucosal inflammatory changes secondary to quiescent Crohn's disease. Biopsied. - Anal stricture found on digital rectal exam. - (more content not included)... LAB, [facility] Radiology Study observation (narrative) [facility] HCG ( test) Ql (U)o n 11-18-2023 Beta HCG ( test) Ql (U) Negative [facility] Ferritinon 11-10-2023 Ferritin [Mass/Vol] 74 ng/mL Normal 4-233 [facility] CBCon 11-09-2023 Erythrocyte distribution width (RBC) [Ratio] 14.5 % High 10-14.[address] [facility] Hematocrit (Bld) [Volume fraction] 37.7 % Normal 36.0-46.[address] [facility] Hemoglobin (Bld) [Mass/Vol] 12.6 g/dL Normal 12.0-16.[address] [facility] MCH (RBC) [Entitic mass] 29.2 pg Normal 26.0-34.[address] [facility] MCHC 33.4 % Normal 31.0-37.[address] [facility] MCV (RBC) [Entitic vol] 87.3 fL Normal 80.0-100.[address] [facility] Platelet mean volume (Bld) [Entitic vol] 10.1 fL Normal 8.8-13.[address] [facility] Comment on above: Result Comment: Perf orbeth at [facility],[address], [place] [address] Platelets (Bld) [#/Vol] 204 10*3/uL Normal 142-[address] [facility] RBC (Bld) [#/Vol] 4.3 10*6/uL Normal 4.0-5.2 [facility] WBC (Bld) [#/Vol] 10.5 10*3/uL Normal 4.5-11.0 [facility] Ironon 11-09-2023 Iron [Mass/Vol] 70 ug/dL Normal 65-175 [facility] Jeremias 09-03-2023 L Specimen: [id number] Received: 09/03/23 Status: RADHA Bradshaw Num: [id number] Spec Type: Surgical Subm Dr: Jayme Hi Tissues: A Placenta - 3rd Trimester (Greater than 28 weeks) (PLACENTA) Procedures: HE/3, Gross/Micro L5 Age/ Patient Sex Location Account Attending Physician [place] [facility] [id number] Alfredo Tami Duong, FINANCIAL ADMINISTRATION OFFICER SPEC NUM: [id number] RECD: 09/03/23 STATUS: RADHA REQ NUM: [id number] SHAY: 09/03/[address]: Jayme Hi ENTERED: 09/03/[address] [facility] [address]: Jaylon,Lab SPEC TYPE: Surgical DEPT: FOREIGN [...] intact, lobulated cotyledons. No loose or adherent Specimen: [id number] Received: 09/03/23 Status: RADHA Bradshaw Num: [id number] Spec Type: Surgical Subm Dr: Jayme Hi Tissues: A Placenta - 3rd Trimester (Greater than 28 weeks) (PLACENTA) Procedures: , Gross/Micro L5 Patient: [place] [id number] (Continued) Specimen: [id number] Received: 09/03/23 (Continued) Gross Description (Continued) Signed (signature on file) Rachel Saldivar MD 09/08/23 1715 Specimen: [id number] Received: 09/03/23 Status: RADHA Bradshaw Num: [id number] Spec Type: Surgical Subm Dr: Jayme Hi Tissues: A Placenta - 3rd Trimester (Greater than 28 weeks) (PLACENTA) Procedures: HE/3, Gross/Micro L5 Patient: [place] [id number] (Continued) Specimen: [id number] Received: 09/03/23 (Continued) Gross Description (Continued) blood [...] A3: random mid-zonal section TW CPT Codes 28737 Specimen: [id number] Received: 09/03/23 Status: RADHA Bradshaw Num: [id number] Spec Type: Surgical Subm Dr: Jayme Hi Tissues: A Placenta - 3rd Trimester (Greater than 28 weeks) (PLACENTA) Procedures: HE/3, Gross/Micro L5 Patient: [place] [id number] (Continued) Signed (signature on file) Rachel Saldivar MD 09/08/23 [id number] Normal [facility] POCT URINE DIPSTICK AUTOMATE DOrdered By: Xochitl Murphy on 08-06-2023 Amorphous sediment LM Ql (Urine sed) [facility] [facility] (U) slightly cloudy [facility] Bacteria LM Ql (Urine sed) [facility] Bilirubin Ql (U) Negative [facility] Casts LM.LPF (Urine sed) [#/Area] [facility] Color (U) yellow [facility] Crystals LM Nom (Urine sed) [facility] Epithelial cells.squamous LM.HPF (Urine sed) [#/Area] [facility] Flow cytometry specialist review Trevin (Unsp spec) [Interp] [facility] Glucose Auto test strip (U) [Mass/Vol] Negative mg/dL [facility] Interpretation and review of laboratory results Abnormal [facility] Ketones [Mass/Vol] Negative mg/dL [facility] Leukocyte esterase Qn (U[facility]uk[facility] Test strip Ql (U) Negative [facility] Microscopic observation Gram stain Nom (Bronch spec) [facility] Nitrite Ql (U) Negative [facility] pH (U) 7.5 [pH] Abnormal 5 - 7 [facility] Protein Ql (U) Negative mg/dL [facility] RBC LM.HPF (Urine sed) [#/Area] [facility] RBC Ql (U) Negative [facility] Specific gravity (U) [Rel density] 1.015 1.001 - 1.035 [facility] Transitional cells LM Ql (Urine sed) [facility] Urobilinogen Qn (U) 0.2 [facility] WBC LM.HPF (Urine sed) [#/Area] [facility] No Panel Informationon 05-26 Rubia Hernandez NP 05/26/2023 5:53 PM Ear Cerumen Removal Date/Time: 05/26/2023 5:46 PM Performed by: Rubia Hernandez NP Authorized by: Rubia Hernandez NP Consent: Consent obtained: Verbal Consent given by: Patient Risks, benefits, and alternatives were discussed: yes Risks discussed: Incomplete removal, TM perforation and dizziness Alternatives discussed: No treatment Thermal protocol: Patient identity confirmed: Verbally with patient Procedure details: Location: L ear and R ear Procedure type: irrigation Procedure outcomes: cerumen removed Post-procedure details: Inspection: TM intact Hearing quality: Normal Procedure completion: Tolerated well, no immediate complications [facility] Chlamydia/GC by PCR [place] Sw abon 03-04-2023 Chlamydia Dna(Pcr) Not detected [facility] Gonorrhoeae Dna(Pcr) Not detected [facility] C REACTIVE PROTEINon 023 CRP High sensitivity method [Mass/Vol] 4.81 mg/L NINF - 10.00 mg/L [facility] Interpretation and review of laboratory results Normal [facility] CHEM 6 (LYTES, BUN CREA)on 04-27-2022 Anion gap [Moles/Vol] 12 mmol/L 7 - 17 mmol/L [facility] Chloride [Moles/Vol] 105 mmol/L 98 - 10 8 mmol/L [facility] CO2 [Moles/Vol] 25 mmol/L 21 - 31 mmol/L [facility] Creatinine [Mass/Vol] 0.48 mg/dL Low 0.50 - 1.20 mg/dL [facility] eGFR, CKD-EPI, Female - PINF [facility] Comment on above: Reported eGFR is bas ed on the CKD-EPI 2020 equation using creatinine, age, and sex. Potassium [Moles/Vol] 3.9 mmol/L 3.5 - 5.0 mmol/L [facility] Sodium [Moles/Vol] 138 mmol/L 135 - 145 mmol/L [facility] Urea nitrogen [Mass/Vol] 7 mg/dL 7 - 25 mg/dL [facility] Urea nitrogen/Creatinine [Mass ratio] 15 mg/mg [facility] Chronic hepatitis differenti ation between hepatitis B and C virus panelOrdered By: Maty Cook on 02-25-2023 HBV core IgG+IgM Ql (S) Negative Negative [facility] HBV surface Ab IA Ql (S) Negative Negative [facility] HBV surface Ag Ql (S) Negative Negative [facility] HCV Ab Ql (S) Negative Negative [facility] Interpretation and review of laboratory results Normal [facility] FOLATE, SERUMOrdered By: Alissa Chamorro on 02-25-2023 Folate [Mass/Vol] 38.76 ng/mL 5.38 - PIN F ng/mL [facility] Interpretation and review of laboratory results Normal [facility] HEPATIC FUNCTION PANELon Albumin [Mass/Vol] 4.0 g/dL 3.5 - 5.0 g/dL [facility] ALP [Catalytic activity/Vol] 42 U/L 32 - 126 U/L [facility] ALT [Catalytic activity/Vol] 5 U/L Low 9 - 48 U/L [facility] AST [Catalytic activity/Vol] 10 U/L 10 - 39 U/L [facility] Bilirubin [Mass/Vol] 0.5 mg/dL NINF - 1.5 mg/dL [facility] Bilirubin.direct [Mass/Vol] 0.1 mg/dL NINF - 0.3 mg/dL [facility] Protein [Mass/Vol] 6.0 g/dL Low 6.4 - 8.3 g/dL [facility] HIV 1&2 AB/AG Screen (P24 AG )on 02-25-2023 HIV 1&2 AB/AG Non-Reactive [facility] Hepatitis B surface antigeno n 02-25-2023 Hepatitis B Surface Antigen Non-Reactive [facility] No Panel Informationon 02-25 Interpretation and review of laboratory results Abnormal [facility] Syphilis Total(Unknown Syphi lis Status)on 02-25-2023 Syphilis Non-Reactive [facility] Type and screenon 02-25-2023 Abo/Rh(D) Positive [facility] VITAMIN B12on 02-25-2023 Cobalamin (Vitamin B12) [Mass/Vol] 421 pg/mL 211 - 911 pg/mL [facility] Comment on above: Testing of Methylmal onic Acid and Intrinsic Factor Blocking Antibody are recommended if clinical suspicion for pernicious anemia due to B12 deficiency is high for patients with intermediate B12 levels (211 to 400 pg/mL) to rule out spurious heterophile antibodies. Interpretation and review of laboratory results Normal [facility] XR Chest 2 Views*on 04-03-20 XR Chest 2 Views* FINDINGS: No acute cardiac or pulmonary disease is identified. No worrisome mass lesions or infiltrates are seen. No pulmonary edema or pneumothorax is present. Cardiac silhouette size is normal. Skeletal structures are normal. IMPRESSION: No acute cardiac or pulmonary disease Report reported and signed by Herbie Pace on 04/03/2022 1551 Normal [facility] XR Chest 2 Views*on 03-10-20 XR Chest 2 Views* FINDINGS: No acute cardiac or pulmonary disease is identified. No worrisome mass lesions or infiltrates are seen. No pulmonary edema or pneumothorax is present. Cardiac silhouette size is normal. Skeletal structures are normal. IMPRESSION: No focal infiltrates Report reported and signed by Herbie Pace on 03/10/2022 1220 Normal [facility] XR Chest 2 Views*on 12-07-19 XR Chest 2 Views* HISTORY: Acute Cough FINDINGS: Comparison made with prior examiantion of November 19, 2021. No new infiltrates, consolidation or pneumothorax. Mild peribronchial thickening accentuated by slightly greater reduction in lung volumes on the current examination. IMPRESSION: 1. No new infiltrates or significant post-inflammatory sequela. Report reported and signed by Herbie Pace on 12/06/2021 1352 Normal [facility] XR Chest 2 Views*on 11-20-19 XR Chest 2 Views* FINDINGS: No acute cardiac or pulmonary disease is identified. No worrisome mass lesions or infiltrates are seen. No pulmonary edema or pneumothorax is present. Cardiac silhouette size is normal. Skeletal structures are normal. IMPRESSION: No acute cardiac or pulmonary disease Report reported and signed by Herbie Pace on 11/19/2021 1128 Normal [facility] Complete Blood Count with Au to Diffon 07-30-2021 Basophils (Bld) [#/Vol] 0.06 10*3/uL Normal 0.00-0.20 [facility] Comment on above: Performed By: #### C BCAD #### [facility] [address] [place], [place] [id number] Basophils/100 WBC (Bld) 0.5 % Normal [facility] Comment on above: Performed By: #### C BCAD #### [facility] [address] [place], [place] [id number] Eosinophils (Bld) [#/Vol] 0.35 10*3/uL Normal 0.02-0.50 [facility] Comment on above: Performed By: #### C BCAD #### [facility] [address] [place], [place] [id number] Eosinophils/100 WBC (Bld) 2.8 % Normal [facility] Comment on above: Performed By: #### C BCAD #### [facility] [address] [place], [place] [id number] Erythrocyte distribution width (RBC) [Ratio] 12.7 % Normal 11.0-15.0 [facility] Comment on above: Performed By: #### C BCAD #### [facility] [address] [place], [place] [id number] Hematocrit (Bld) [Volume fraction] 37.5 % Normal 35.0-47.0 [facility] Comment on above: Performed By: #### C BCAD #### [facility] [address] [place], [place] [id number] Hemoglobin (Bld) [Mass/Vol] 12.2 g/dL Normal 11.6-15.5 [facility] Comment on above: Performed By: #### C BCAD #### [facility] [address] [place], [place] [id number] Lymphocytes (Bld) [#/Vol] 2.5 10*3/uL Normal 0.9-3.9 [facility] Comment on above: Performed By: #### C BCAD #### [facility] [address] [place], [place] [id number] Lymphocytes/100 WBC (Bld) 19.8 % Normal [facility] Comment on above: Performed By: #### C BCAD #### [facility] [address] [place], [place] [id number] MCH (RBC) [Entitic mass] 29.7 pg Normal 27.0-33.0 [facility] Comment on above: Performed By: #### C BCAD #### [facility] [address] [place], [place] [id number] MCHC (RBC) [Mass/Vol] 32.5 g/dL Normal 32.0-36.0 [facility] Comment on above: Performed By: #### C BCAD #### [facility] [address] [place], [place] [id number] MCV (RBC) [Entitic vol] 91 fL Normal 80-100 [facility] Comment on above: Performed By: #### C BCAD #### [facility] [address] [place], [place] [id number] Monocytes (Bld) [#/Vol] 0.9 10*3/uL Normal 0.2-0.9 [facility] Comment on above: Performed By: #### C BCAD #### [facility] [address] [place], [place] [id number] Monocytes/100 WBC (Bld) 7.2 % Normal [facility] Comment on above: Performed By: #### C BCAD #### [facility] [address] [place], [place] [id number] Neutrophils (Bld) [#/Vol] 8.8 10*3/uL High 1.5-7.8 [facility] Comment on above: Performed By: #### C BCAD #### [facility] [address] [place], [place] [id number] Neutrophils/100 WBC (Bld) 69.3 % Normal [facility] Comment on above: Performed By: #### C BCAD #### [facility] [address] [place], [place] [id number] Platelet mean volume (Bld) [Entitic vol] 10.20 fL Normal 7.50-12.50 [facility] Comment on above: Performed By: #### C BCAD #### [facility] [address] [place], [place] [id number] Platelets (Bld) [#/Vol] 258 10*3/uL Normal 140-400 [facility] Comment on above: Performed By: #### C BCAD #### [facility] [address] [place], [place] [id number] RBC (Bld) [#/Vol] 4.11 10*6/uL Normal 3.90-5.20 [facility] Comment on above: Performed By: #### C BCAD #### [facility] [address] [place], [place] [id number] RDW-SD 41.4 fL Normal 37.0-50.0 [facility] Comment on above: Performed By: #### C BCAD #### [facility] [address] [place], [place] [id number] WBC (Bld) [#/Vol] 12.7 10*3/uL High 3.8-11.0 [facility] Comment on above: Performed By: #### C BCAD #### [facility] [address] [place], [place] [id number] IgG Subclasseson 07-12-2021 IgG subclass 1 300 mg/dL Normal 240-1118 [facility] Comment on above: Result Comment: (NOT E) REFERENCE INTERVAL: Immunoglobulin G Subclass 1 The total IgG (mg/dL) can be derived from the sum of the subclass IgG1, IgG2, IgG3, and IgG4 values. However, a confirmatory and more precise total IgG is available by the turbidimetric method of quantitation for total IgG. Refer to test Immunoglobulin G, Serum ([id number]). Access complete set of age- and/or gender-specific reference intervals for this test in the [facility] Test Directory ([employer]). Performed By: #### A IGGSB, APNAB1 #### [facility] [address] [place] [address] [employer]: Cody Dye MD #### IFX, FLLS, IMMS, CDP, THYGLA #### [address] [place], [place] [id number] [employer]: Jone Eller MD IgG subclass 2 193 mg/dL Normal 124-549 [facility] Comment on above: Result Comment: (NOT E) REFERENCE INTERVAL: Immunoglobulin G Subclass 2 Access complete set of age- and/or gender-specific reference intervals for this test in the [facility] Test Directory ([employer]). Performed By: #### A IGGSB, APNAB1 #### [facility] [address] [place], [place] [id number] [employer] Cal[employer]er: Cody Dye MD #### IFX, FLLS, IMMS, CDP, THYGLA #### [address] [id number] [employer]: Jone Eller MD IgG subclass 3 61 mg/dL Normal 21-134 [facility] Comment on above: Result Comment: (NOT E) REFERENCE INTERVAL: Immunoglobulin G Subclass 3 Access complete set of age- and/or gender-specific reference intervals for this test in the [facility] Test Directory ([employer]). Performed By: #### A IGGSB, APNAB1 #### [facility] [address] [id number] [employer]: Cody Dye MD #### IFX, FLLS, IMMS, CDP, THYGLA #### [address] [id number] [employer]: Jone Eller MD IgG subclass 4 3 mg/dL Normal 1-123 [facility] Comment on above: Result Comment: (NOT E) REFERENCE INTERVAL: Immunoglobulin G Subclass 4 Access complete set of age- and/or gender-specific reference intervals for this test in the [facility] Test Directory ([employer]). Performed by [employer], [address] [place] [id number] [email or web address], Ruthie Augustin MD, Lab. Director Performed By: #### A IGGSB, APNAB1 #### [facility] [address] [phone] [employer]: Cody Dye MD #### IFX, FLLS, IMMS, CDP, THYGLA #### [address] [id number] [employer]: Jone Eller MD Pneumococcal Ab, IgGon 07-12 S.pneum Interp See Note Normal [facility] Comment on above: Result Comment: (NOT [...] Kedar JW, Vinny X, Prince DOSS, Alber HR. Multilaboratory assessment of threshold versus fold-change algorithms for minimizing analytical variability in multiplexed pneumococcal IgG measurements. Clin Vaccine Immunol. 2014;21(7):982-8. 2. Goldie GALAVIZ, Alber CARDENAS. Use and Clinical Interpretation of Pneumococcal Antibody Measurements in the Evaluation of Humoral Immune Function. Clin Vaccine Immunol. 2015;22(2):148-152. This test was developed and its performance characteristics determined by [employer]. It has not been cleared or approved by the [place] Food and Drug Administration. This test was performed in a CLIA certified laboratory and is intended for clinical purposes. Performed By: [employer] [address] [place] [id number] [employer]: Ruthie Augustin MD Performed By: #### A IGGSB, APNAB1 #### [facility] [address] [place] [address] [employer] Cal[employer]er: Cody Dye MD #### IFX, FLLS, IMMS, CDP, THYGLA #### [address] [id number] [employer]er: Jone Eller MD S.pneum type 1,IgG 0.11 ug/mL Normal [facility] Comment on above: Performed By: #### A IGGSB, APNAB1 #### [facility] [address] [place] [address] [employer] Cal[employer]er: Cody Dye MD #### IFX, FLLS, IMMS, CDP, THYGLA #### [address] [id number] [employer]er: Jone Eller MD S.pneum type 12F,IgG 0.14 ug/mL Normal [facility] Comment on above: Performed By: #### A IGGSB, APNAB1 #### [facility] [address] [place] [address] [employer] Cal[employer]er: Cody Dye MD #### IFX, FLLS, IMMS, CDP, THYGLA #### [address] [id number] [employer]er: Jone Eller MD S.pneum type 14,IgG 0.19 ug/mL Normal [facility] Comment on above: Performed By: #### A IGGSB, APNAB1 #### [facility] [address] [place] [address] [employer] Cal[employer]er: Cody Dye MD #### IFX, FLLS, IMMS, CDP, THYGLA #### [address] [id number] [employer]: Jone Eller MD S.pneum type 18C,IgG 6.82 ug/mL Normal [facility] Comment on above: Performed By: #### A IGGSB, APNAB1 #### [facility] [address] [place] [address] [employer] Cal[employer]er: Cody Dye MD #### IFX, FLLS, IMMS, CDP, THYGLA #### [address] [address] [employer]: Jone Eller MD S.pneum type 19F,IgG 10.07 ug/mL Normal [facility] Comment on above: Performed By: #### A IGGSB, APNAB1 #### [facility] [address] [place], [place] [id number] [employer] Cal[employer]er: Cody Dye MD #### IFX, FLLS, IMMS, CDP, THYGLA #### [address] [id number] [employer]: Jone Eller MD S.pneum type 23F,IgG 2.17 ug/mL Normal [facility] Comment on above: Performed By: #### A IGGSB, APNAB1 #### [facility] [address] [place], [place] [id number] [employer] Cal[employer]er: Cody Dye MD #### IFX, FLLS, IMMS, CDP, THYGLA #### [address] [id number] [employer] Cal[employer]er: Jone Eller MD S.pneum type 3,IgG 0.92 ug/mL Normal [facility] Comment on above: Performed By: #### A IGGSB, APNAB1 #### [facility] [address] [place], [place] [id number] Gy[employer] Cal[employer]er: Cody Dye MD #### IFX, FLLS, IMMS, CDP, THYGLA #### [address] [id number] [employer] Cal[employer]er: Jone Eller MD S.pneum type 4,IgG 0.08 ug/mL Normal [facility] Comment on above: Performed By: #### A IGGSB, APNAB1 #### [facility] [address] [place] [address] Gypsum Cal[employer]er: Cody Dye MD #### IFX, FLLS, IMMS, CDP, THYGLA #### [facility] [address] [place] [id number] Gy[employer] Calciner: Jone Eller MD S.pneum type 5,IgG 3.04 ug/mL Normal [facility] Comment on above: Performed By: #### A IGGSB, APNAB1 #### [facility] [address] [place], [place] [id number] Gypsum Calciner: Cody Dye MD #### IFX, FLLS, IMMS, CDP, THYGLA #### [address] [id number] [employer] Cal[employer]er: Jone Eller MD S.pneum type 6B,IgG 0.76 ug/mL Normal [facility] Comment on above: Performed By: #### A IGGSB, APNAB1 #### [facility] [address] [place], [place] [id number] [employer] Cal[employer]er: Cody Dye MD #### IFX, FLLS, IMMS, CDP, THYGLA #### [address] [id number] [employer]er: Jone Eller MD S.pneum type 7F,IgG 1.36 ug/mL Normal [facility] Comment on above: Performed By: #### A IGGSB, APNAB1 #### [facility] [address] [place], [place] [id number] Gy[employer] Cal[employer]er: Cody Dye MD #### IFX, FLLS, IMMS, CDP, THYGLA #### [address] [id number] Gypsum Calciner: Jone Eller MD S.pneum type 8,IgG 0.40 ug/mL Normal [facility] Comment on above: Performed By: #### A IGGSB, APNAB1 #### [facility] [address] [place] [address] Gypsum Calciner: Cody Dye MD #### IFX, FLLS, IMMS, CDP, THYGLA #### [facility] [address] [place] [phone] Gy[employer] Calciner: Jone Eller MD S.pneum type 9N,IgG 0.54 ug/mL Normal [facility] Comment on above: Performed By: #### A IGGSB, APNAB1 #### [facility] [address] [place], [place] [id number] Gypsum Calciner: Cody Dye MD #### IFX, FLLS, IMMS, CDP, THYGLA #### [address] [id number] Gyps[employer] Calciner: Jone Eller MD S.pneum type 9V,IgG 0.75 ug/mL Normal [facility] Comment on above: Performed By: #### A IGGSB, APNAB1 #### [facility] [address] [place] [address] Gypsum Calciner: Cody Dye MD #### IFX, FLLS, IMMS, CDP, THYGLA #### [facility] [address] [place] [address] [employer]er: Jone Eller MD Immunofixation,Bloodon 07-10 IFX - Interpret. IMMUNOFIXATION IS NEGATIVE FOR MONOCLONAL IMMUNOGLOBULIN. Normal [facility] Comment on above: Performed By: #### A IGGSB, APNAB1 #### [facility] [address] [place] [address] Gypsum Calciner: Cody Dye MD #### IFX, FLLS, IMMS, CDP, THYGLA #### [address] [address] [employer]er: Jone Eller MD Pathologist Review: ELECTRONICALLY YUNI TURNER M.D. Normal [facility] Comment on above: Performed By: #### A IGGSB, APNAB1 #### [facility] [address] [place] [address] Gypsum Calciner: Cody Dye MD #### IFX, FLLS, IMMS, CDP, THYGLA #### [address] [address] [employer] Cal[employer]er: Jone Eller MD Lymphocyte Subseton 07-11-19 22 Ab(CD3-,CD56+) 123 /uL Normal 90-600 [facility] Comment on above: Performed By: #### A IGGSB, APNAB1 #### [facility] [address] [place] [address] Gypsum Calciner: Cody Dye MD #### IFX, FLLS, IMMS, CDP, THYGLA #### [address] [address] Gy[employer] Cal[employer]er: Jone Eller MD Ab.T Help(CD3+,CD4+) 1652 /uL High [phone] [facility] Comment on above: Performed By: #### A IGGSB, APNAB1 #### [facility] [address] [place] [address] Gypsum Calciner: Cody Dye MD #### IFX, FLLS, IMMS, CDP, THYGLA #### [address] [address] Gy[employer] Cal[employer]er: Jone Eller MD Ab.T Sup.(CD3+,CD8+) 641 /uL Normal 282-999 [facility] Comment on above: Performed By: #### A IGGSB, APNAB1 #### [facility] [address] [place] [address] Gypsum Calciner: Cody Dye MD #### IFX, FLLS, IMMS, CDP, THYGLA #### [address] [address] [employer] Cal[employer]er: Jone Eller MD Abs. Total B (CD19+) 0 /uL Low 71-567 [facility] Comment on above: Performed By: #### A IGGSB, APNAB1 #### [facility] [address] [place] [address] Gypsum Calciner: Cody Dye MD #### IFX, FLLS, IMMS, CDP, THYGLA #### [address] [address] Gy[employer] Cal[employer]er: Jone Eller MD Abs. Total T (CD3+) 2317 /uL High 411-2061 [facility] Comment on above: Performed By: #### A IGGSB, APNAB1 #### [facility] [address] [place] [address] Gypsum Calciner: Cody Dye MD #### IFX, FLLS, IMMS, CDP, THYGLA #### [address] [address] Gypsum Calciner: Jone Eller MD H/S Ratio(CD4+/CD8+) 2.58 Normal 0.6-2.8 [facility] Comment on above: Performed By: #### A IGGSB, APNAB1 #### [facility] [address] [place] [address] Gypsum Calciner: Cody Dye MD #### IFX, FLLS, IMMS, CDP, THYGLA #### [address] [place] [address] Gypsum Calciner: Jone Eller MD Lymphocytes/100 WBC (Bld) 17 % Low 25-45 [facility] Comment on above: Performed By: #### A IGGSB, APNAB1 #### [facility] [address] [place] [address] Gypsum Calciner: Cody Dye MD #### IFX, FLLS, IMMS, CDP, THYGLA #### [facility] [address] [place] [address] Gy[employer] Cal[employer]er: Jone Eller MD NK (CD3-,CD56+) 5 % Low 6-29 [facility] Comment on above: Performed By: #### A IGGSB, APNAB1 #### [facility] [address] [place] [address] Gypsum Calciner: Cody Dye MD #### IFX, FLLS, IMMS, CDP, THYGLA #### [facility] [address] [place] [address] [employer]: Jone Eller MD T [place] (CD3+,CD4+) 67 % High 27-64 [facility] Comment on above: Performed By: #### A IGGSB, APNAB1 #### [facility] [address] [place] [address] Gypsum Calciner: Cody Dye MD #### IFX, FLLS, IMMS, CDP, THYGLA #### [facility] [address] [place] [address] [employer] Cal[employer]er: Jone Eller MD T Sup. (CD3+, CD8+) 26 % Normal 17-48 [facility] Comment on above: Performed By: #### A IGGSB, APNAB1 #### [facility] [address] [place] [address] Gypsum Calciner: Cody Dye MD #### IFX, FLLS, IMMS, CDP, THYGLA #### [address] [phone] [employer]er: Jone Eller MD Total B (CD19+) 0 % Low 5-25 [facility] Comment on above: Performed By: #### A IGGSB, APNAB1 #### [facility] [address] [place] [address] Gypsum Cal[employer]er: Cody Dye MD #### IFX, FLLS, IMMS, CDP, THYGLA #### [address] [id number] Gypsum Calciner: Joen Eller MD Total T (CD3+) 94 % Normal 57-94 [facility] Comment on above: Performed By: #### A IGGSB, APNAB1 #### [facility] [address] [place] [id number] Gypsum Calciner: Cody Dye MD #### IFX, FLLS, IMMS, CDP, THYGLA #### [place] [address] Gypsum Calciner: Jone Eller MD WBC (Bld) [#/Vol] 14.5 10*3/uL High 4.5-13.5 [facility] Comment on above: Performed By: #### A IGGSB, APNAB1 #### [facility] [address] [place] [address] Gypsum Calciner: Cody Dye MD #### IFX, FLLS, IMMS, CDP, THYGLA #### [address] [id number] Gypsum Calciner: Jone Eller MD Thyroglobulin Abon 2 Thyroglobulin Ab Qn [IU]/mL Normal 0.0-40.0 [facility] Comment on above: Result Comment: Reference Range: <40.0 Negative 40.0-60.0 Equivocal >60.0 Positive When results are Equivocal, it is recommended to retest after 8-12 weeks. Performed By: #### A IGGSB, APNAB1 #### [facility] [address] [place] [address] Gypsum Calciner: Cody Dye MD #### IFX, FLLS, IMMS, CDP, THYGLA #### [facility] [address] [place] [address] Gypsum Calciner: Jone Eller MD CBC with Auto Differentialon 07-09-2021 Absolute Eos # 0.43 [facility] th Absolute Immature Granulocyte 0.08 [facility] Absolute Lymph # 2.41 [facility] Absolute Emery # 1.26 [facility] lt Basophils (Bld) [#/Vol] 0.08 10*3/uL [facility] Basophils/100 WBC (Bld) 1 % 0 - 2 % [facility] Eosinophils/100 WBC (Bld) 3 % 1 - 4 % [facility] Hematocrit (Bld) [Volume fraction] 40.7 % 36.3 - 47.1 % [facility] Hemoglobin.gastrointe stinal spec 1 Ql (Stl) 13.5 g/dL 11.9 - 15.1 g/dL [facility] Immature granulocytes/100 WBC (Bld) 1 % High 0 [facility] Interpretation and review of laboratory results Abnormal [facility] Lymphocytes/100 WBC (Bld) 17 % Low 25 - 45 % [facility] MCH (RBC) [Entitic mass] 30.1 pg 25.2 - 33.5 pg [facility] MCHC (RBC) [Mass/Vol] 33.2 g/dL 28.4 - 34.8 g/dL [facility] MCV (RBC) [Entitic vol] 90.8 fL 82.6 - 102.9 fL [facility] Monocytes/100 WBC (Bld) 9 % High 2 - 8 % [facility] NRBC Automated 0.0 0.0 per 100 WBC [facility] Platelet distribution width (Bld) [Ratio] 12.7 % 11.8 - 14.4 % [facility] Platelet mean volume (Bld) [Entitic vol] 9.9 fL 8.1 - 13.5 fL [facility] Platelets (Bld) [#/Vol] 277 10*3/uL [facility] RBC (Bld) [#/Vol] 4.48 10*6/uL 3.95 - 5.1 1 m/uL [facility] Segmented neutrophils/100 WBC (Bld) 69 % High 34 - 64 % [facility] Segs Absolute 10.22 [facility] [#/Vol] 14.5 10*3/uL High [facility] CBC with Diffon 07-09-2021 Abs. Basophil 0.08 k/uL Normal 0.00-0.20 [facility] Comment on above: Performed By: #### A IGGSB, APNAB1 #### [facility] [address] [place], [place] [id number] Gypsum Calciner: Cody Dye MD #### IFX, FLLS, IMMS, CDP, THYGLA #### [facility] [address] [place] [address] [phone] Gypsum Calciner: Jone Eller MD Abs.Imm.Granulocyte 0.08 k/uL Normal 0.00-0.30 [facility] Comment on above: Performed By: #### A IGGSB, APNAB1 #### [facility] [address] [place] [address] Gypsum Calciner: Cody Dye MD #### IFX, FLLS, IMMS, CDP, THYGLA #### [facility] [address] [place] [address] [phone] Gypsum Calciner: Jone Eller MD Abs.Neutrophil (Seg) 10.22 k/uL High 1.80-8.00 [facility] Comment on above: Performed By: #### A IGGSB, APNAB1 #### [facility] [address] [place] [address] Gypsum Calciner: Cody Dye MD #### IFX, FLLS, IMMS, CDP, THYGLA #### [address] [address] Gypsum Calciner: Jone Eller MD Basophils/100 WBC (Bld) 1 % Normal 0-2 [facility] Comment on above: Performed By: #### A IGGSB, APNAB1 #### [facility] [address] [place] [address] Gypsum Calciner: Cody Dye MD #### IFX, FLLS, IMMS, CDP, THYGLA #### [address] [address] Gypsum Calciner: Jone Eller MD Eosinophils (Bld) [#/Vol] 0.43 10*3/uL Normal 0.00-0.44 [facility] Comment on above: Performed By: #### A IGGSB, APNAB1 #### [facility] [address] [place] [address] Gypsum Calciner: Cody Dye MD #### IFX, FLLS, IMMS, CDP, THYGLA #### [address] [id number] Gypsum Calciner: Jone Eller MD Eosinophils/100 WBC (Bld) 3 % Normal 1-4 [facility] Comment on above: Performed By: #### A IGGSB, APNAB1 #### [facility] [address] [place] [address] Gypsum Calciner: Cody Dye MD #### IFX, FLLS, IMMS, CDP, THYGLA #### [address] [id number] Gypsum Calciner: Jone Eller MD Erythrocyte distribution width (RBC) [Ratio] 12.7 % Normal 11.8-14.4 [facility] Comment on above: Performed By: #### A IGGSB, APNAB1 #### [facility] [address] [place] [address] Gypsum Calciner: Cody Dye MD #### IFX, FLLS, IMMS, CDP, THYGLA #### [address] [id number] Gypsum Calciner: Jone Eller MD Hematocrit (Bld) [Volume fraction] 40.7 % Normal 36.3-47.1 [facility] Comment on above: Performed By: #### A IGGSB, APNAB1 #### [facility] [address] [place] [address] Gypsum Calciner: Cody Dye MD #### IFX, FLLS, IMMS, CDP, THYGLA #### [address] [id number] Gypsum Calciner: Jone Eller MD Hemoglobin (Bld) [Mass/Vol] 13.5 g/dL Normal 11.9-15.1 [facility] Comment on above: Performed By: #### A IGGSB, APNAB1 #### [facility] [address] [place], [place] [id number] Gypsum Calciner: Cody Dye MD #### IFX, FLLS, IMMS, CDP, THYGLA #### [address] [address] Gypsum Calciner: Jone Eller MD Immature granulocytes/100 WBC (Bld) 1 % High 0 [facility] Comment on above: Performed By: #### A IGGSB, APNAB1 #### [facility] [address] [place] [address] Gypsum Calciner: Cody Dye MD #### IFX, FLLS, IMMS, CDP, THYGLA #### [address] [phone] Gypsum Calciner: Jone Eller MD Lymphocytes (Bld) [#/Vol] 2.41 10*3/uL Normal 1.20-5.20 [facility] Comment on above: Performed By: #### A IGGSB, APNAB1 #### [facility] [address] [place] [address] Gypsum Calciner: Cody Dye MD #### IFX, FLLS, IMMS, CDP, THYGLA #### [place] [address] Gypsum Calciner: Jone Eller MD Lymphocytes/100 WBC (Bld) 17 % Low 25-45 [facility] Comment on above: Performed By: #### A IGGSB, APNAB1 #### [facility] [address] [place] [address] Gypsum Calciner: Cody Dye MD #### IFX, FLLS, IMMS, CDP, THYGLA #### [place] [address] Gypsum Calciner: Jone Eller MD MCH (RBC) [Entitic mass] 30.1 pg Normal 25.2-33.5 [facility] Comment on above: Performed By: #### A IGGSB, APNAB1 #### [facility] [address] [place] [address] Gypsum Calciner: Cody Dye MD #### IFX, FLLS, IMMS, CDP, THYGLA #### [place] [address] Gypsum Calciner: Jone Eller MD MCHC (RBC) [Mass/Vol] 33.2 g/dL Normal 28.4-34.8 [facility] Comment on above: Performed By: #### A IGGSB, APNAB1 #### [facility] [address] [place] [address] Gypsum Calciner: Cody Dye MD #### IFX, FLLS, IMMS, CDP, THYGLA #### [address] [address] Gypsum Calciner: Jone Eller MD MCV (RBC) [Entitic vol] 90.8 fL Normal 82.6-102.9 [facility] Comment on above: Performed By: #### A IGGSB, APNAB1 #### [facility] [address] [place] [address] Gypsum Calciner: Cody Dye MD #### IFX, FLLS, IMMS, CDP, THYGLA #### [address] [address] Gypsum Calciner: Jone Eller MD Monocytes (Bld) [#/Vol] 1.26 10*3/uL Normal 0.10-1.40 [facility] Comment on above: Performed By: #### A IGGSB, APNAB1 #### [facility] [address] [place] [address] Gypsum Calciner: Cody Dye MD #### IFX, FLLS, IMMS, CDP, THYGLA #### [address] [phone] Gypsum Calciner: Jone Eller MD Monocytes/100 WBC (Bld) 9 % High 2-8 [facility] Comment on above: Performed By: #### A IGGSB, APNAB1 #### [facility] [address] [place] [address] Gypsum Calciner: Cody Dye MD #### IFX, FLLS, IMMS, CDP, THYGLA #### [address] [address] Gypsum Calciner: Jone Eller MD Neutrophil (Seg) 69 % High 34-64 [facility] Comment on above: Performed By: #### A IGGSB, APNAB1 #### [facility] [address] [place] [address] Gypsum Calciner: Cody Dye MD #### IFX, FLLS, IMMS, CDP, THYGLA #### [address] [phone] Gypsum Calciner: Jone Eller MD NRBC Automated 0.0 per 100 WBC Normal 0.0 [facility] Comment on above: Performed By: #### A IGGSB, APNAB1 #### [facility] [address] [place] [address] Gypsum Calciner: Cody Dye MD #### IFX, FLLS, IMMS, CDP, THYGLA #### [address] [id number] Gypsum Calciner: Jone Eller MD Platelet mean volume (Bld) [Entitic vol] 9.9 fL Normal 8.1-13.5 [facility] Comment on above: Performed By: #### A IGGSB, APNAB1 #### [facility] [address] [place] [address] Gypsum Calciner: Cody Dye MD #### IFX, FLLS, IMMS, CDP, THYGLA #### [address] [phone] Gypsum Calciner: Jone Eller MD Platelets (Bld) [#/Vol] 277 10*3/uL Normal 138-453 [facility] Comment on above: Performed By: #### A IGGSB, APNAB1 #### [facility] [address] [place] [address] Gypsum Calciner: Cody Dye MD #### IFX, FLLS, IMMS, CDP, THYGLA #### [address] [id number] Gypsum Calciner: Jone Eller MD RBC (Bld) [#/Vol] 4.48 10*6/uL Normal 3.95-5.11 [facility] Comment on above: Performed By: #### A IGGSB, APNAB1 #### [facility] [address] [place] [address] Gypsum Calciner: Cody Dye MD #### IFX, FLLS, IMMS, CDP, THYGLA #### [facility] [address] [place] [address] [phone] Gypsum Calciner: Jone Eller MD WBC (Bld) [#/Vol] 14.5 10*3/uL High 4.5-13.5 [facility] Comment on above: Performed By: #### A IGGSB, APNAB1 #### [facility] [address] [place], [place] [phone] Gypsum Calciner: Cody Dye MD #### IFX, FLLS, IMMS, CDP, THYGLA #### [facility] [address] [place] [address] [phone] Gypsum Calciner: Jone Eller MD Immunoglobulin Panel (IgG, I gA, IgM)on 07-09-2021 IgA [Mass/Vol] 201 mg/dL 70 - 400 mg/dL [facility] IgG [Mass/Vol] 545 mg/dL Low 700 - 1600 mg/dL [facility] IgM [Mass/Vol] 70 mg/dL 40 - 230 mg/dL [facility] Interpretation and review of laboratory results Abnormal [facility] Immunoglobulinson 07-09-2021 IgA [Mass/Vol] 201 mg/dL Normal 70-400 [facility] Comment on above: Performed By: #### A IGGSB, APNAB1 #### [facility] [address] [place], [place] [phone] Gypsum Calciner: Cody Dye MD #### IFX, FLLS, IMMS, CDP, THYGLA #### [address] [phone] Gypsum Calciner: Jone Eller MD IgG [Mass/Vol] 545 mg/dL Low 700-1600 [facility] Comment on above: Performed By: #### A IGGSB, APNAB1 #### [facility] [address] [place] [address] Gypsum Calciner: Cody Dye MD #### IFX, FLLS, IMMS, CDP, THYGLA #### [address] [phone] Gypsum Calciner: Jone Eller MD IgM [Mass/Vol] 70 mg/dL Normal 40-230 [facility] Comment on above: Performed By: #### A IGGSB, APNAB1 #### [facility] [address] [place] [address] Gypsum Calciner: Cody Dye MD #### IFX, FLLS, IMMS, CDP, THYGLA #### [address] [phone] Gypsum Calciner: Jone Eller MD CBC AUTO DIFFon 06-27-2021 BASO # 0.1 103/ul Normal 0.0-0.1 [facility] Comment on above: Performed By: #### T RANSFR #### [facility] [address] [place] [address] Dr. Orlando Saldivar Basophils/100 WBC (Bld) 0.5 % Normal 0.2-2.0 [facility] Comment on above: Performed By: #### T RANSFR #### [facility] [address] [place] [address] Dr. Orlando Saldivar EO # 0.4 103/ul Normal 0.0-0.7 [facility] Comment on above: Performed By: #### T RANSFR #### [facility] [address] [place] [address] Dr. Orlando Saldivar Eosinophils/100 WBC (Bld) 2.4 % Normal 0.9-7.0 [facility] Comment on above: Performed By: #### T RANSFR #### [facility] [address] [place] [address] Dr. Orlando Saldivar Erythrocyte distribution width (RBC) [Ratio] 12.8 % Normal 11.0-15.0 [facility] Comment on above: Performed By: #### T RANSFR #### [facility] [address] [place] [address] Dr. Orlando Saldivar Hematocrit (Bld) [Volume fraction] 38.1 % Normal 36.0-48.0 [facility] Comment on above: Performed By: #### T RANSFR #### [facility] [address] [place] [address] Dr. Orlando Saldivar Hemoglobin (Bld) [Mass/Vol] 12.7 g/dL Normal 12.0-16.0 [facility] Comment on above: Performed By: #### T RANSFR #### [facility] [address] [place] [address] Dr. Orlando Saldivar IG # 0.05 10e3/ul Critically high 0.00-0.03 [facility] Comment on above: Performed By: #### T RANSFR #### [facility] [address] [place] [address] Dr. Orlando Saldivar IG % 0.3 % Normal 0.0-0.5 [facility] Comment on above: Performed By: #### T RANSFR #### [facility] [address] [place] [address] Dr. Orlando Saldivar LYMPH # 2.5 103/ul Normal 1.2-3.8 [facility] Comment on above: Performed By: #### T RANSFR #### [facility] [address] [place] [address] Dr. Orlando Saldivar Lymphocytes/100 WBC (Bld) 16.1 % Critically low 20.5-60.0 [facility] Comment on above: Performed By: #### T RANSFR #### [facility] [address] [place] [address] Dr. Orlando Saldivar MANUAL DIFF REQ NO Normal [facility] Comment on above: Performed By: #### T RANSFR #### [facility] [address] [address] [address] Orlando Saldivar MCH (RBC) [Entitic mass] 30.0 pg Normal 26.7-34.0 [facility] Comment on above: Performed By: #### T RANSFR #### [facility] [address] [place] [address] Dr. Orlando Saldivar MCHC (RBC) [Mass/Vol] 33.3 g/dL Normal 29.9-35.2 [facility] Comment on above: Performed By: #### T RANSFR #### [facility] [address] [place] [address] Dr. Orlando Saldivar MCV (RBC) [Entitic vol] 90.1 fL Normal 81.0-99.0 [facility] Comment on above: Performed By: #### T RANSFR #### [facility] [address] [place] [address] Dr. Orlando Saldivar MONO # 1.0 103/ul Critically high 0.3-0.8 [facility] Comment on above: Performed By: #### T RANSFR #### [facility] [address] [place] [address] Dr. Orlando Saldivar Monocytes/100 WBC (Bld) 6.6 % Normal 1.7-12.0 [facility] Comment on above: Performed By: #### T RANSFR #### [facility] [address] [place] [address] Dr. Orlando Saldivar NEUT # 11.3 103/ul Critically high 1.4-6.5 [facility] Comment on above: Performed By: #### T RANSFR #### [facility] [address] [place] [address] Dr. Orlando Saldivar Neutrophils/100 WBC (Bld) 74.1 % Normal 43.0-75.0 [facility] Comment on above: Performed By: #### T RANSFR #### [facility] [address] [place] [address] Dr. Orlando Saldivar Platelet mean volume (Bld) [Entitic vol] 9.3 fL Critically low 9.5-13.5 [facility] Comment on above: Performed By: #### T RANSFR #### [facility] [address] [place] [address] Dr. Orlando Saldivar PLT 256 103/ul Normal 150-450 [facility] Comment on above: Performed By: #### T RANSFR #### [facility] [address] [place] [address] Dr. Orlando Saldivar RBC 4.23 106/ul Normal 4.20-5.40 [facility] Comment on above: Performed By: #### T RANSFR #### [facility] [address] [place] [address] Dr. Orlando Saldivar WBC 15.2 103/ul Critically high 4.0-11.0 [facility] Comment on above: Performed By: #### T RANSFR #### [facility] [address] [place] [address] Dr. Orlando Saldivar CRPon 06-27-2021 CRP [Mass/Vol] mg/L Normal <=1.0 [facility] Comment on above: Performed By: #### C MP, CRP #### [facility] [address] [place] [address] Dr. Orlando Saldivar PROF 14(COMP METB)on 022 Albumin [Mass/Vol] 3.8 g/dL Normal 3.5-5.0 [facility] Comment on above: Performed By: #### C MP, CRP #### [facility] [address] [place] [address] Dr. Orlando Saldivar Albumin/Globulin [Mass ratio] 1.2 {ratio} Normal [facility] Comment on above: Performed By: #### C MP, CRP #### [facility] [address] [place] [address] Dr. Orlando Saldivar ALP [Catalytic activity/Vol] 65 U/L Normal 38-126 [facility] Comment on above: Performed By: #### C MP, CRP #### [facility] [address] [place] [address] Dr. Orlando Saldivar ALT [Catalytic activity/Vol] 11 U/L Normal 9-52 [facility] Comment on above: Performed By: #### C MP, CRP #### [facility] [address] [place] [address] Dr. Orlando Saldivar Anion gap [Moles/Vol] 12.9 mmol/L Normal Th [facility] Comment on above: Performed By: #### C MP, CRP #### [facility] [address] [place] [address] Dr. Orlando Saldivar AST [Catalytic activity/Vol] 10 U/L Critically low 14-36 [facility] Comment on above: Performed By: #### C MP, CRP #### [facility] [address] [place] [address] Dr. Orlando Saldivar Bilirubin [Mass/Vol] 0.6 mg/dL Normal 0.2-1.3 [facility] Comment on above: Performed By: #### C MP, CRP #### [facility] [address] [place] [address] Dr. Orlando Saldivar Calcium [Mass/Vol] 9.0 mg/dL Normal 8.4-10.2 [facility] Comment on above: Performed By: #### C MP, CRP #### [facility] [address] [place] [address] Dr. Orlando Saldivar Chloride [Moles/Vol] 102 mmol/L Normal 98-107 [facility] Comment on above: Performed By: #### C MP, CRP #### [facility] [address] [place] [address] Dr. Orlando Saldivar CO2 [Moles/Vol] 28.9 mmol/L Normal 22.0-30.0 [facility] Comment on above: Performed By: #### C MP, CRP #### [facility] [address] [place] [address] Dr. Orlando Saldivar Creatinine [Mass/Vol] 0.80 mg/dL Normal 0.52-1.04 [facility] Comment on above: Performed By: #### C MP, CRP #### [facility] [address] [place] [address] Dr. Orlando Saldivar EGFR-AF AUSTRALIAN >60 Normal >=60 [facility] Comment on above: Performed By: #### C MP, CRP #### [facility] [address] [address] [address] Orlando Saldivar EGFR-NON AF AUSTRALIAN >60 Normal >=60 [facility] Comment on above: Performed By: #### C MP, CRP #### [facility] [address] [address] [address] Orlando Saldivar Globulin (S) [Mass/Vol] 3.1 g/dL Normal [facility] Comment on above: Performed By: #### C MP, CRP #### [facility] [address] [address] [address] Orlando Saldivar Glucose [Mass/Vol] 90 mg/dL Normal 74-106 [facility] Comment on above: Performed By: #### C MP, CRP #### [facility] [address] [address] [address] Orlando Saldivar Potassium [Moles/Vol] 3.8 mmol/L Normal 3.4-5.0 [facility] Comment on above: Performed By: #### C MP, CRP #### [facility] [address] [address] [address] Orlando Saldivar Protein [Mass/Vol] 6.9 g/dL Normal 6.1-8.2 [facility] Comment on above: Performed By: #### C MP, CRP #### [facility] [address] [address] [address] Orlando Saldivar Sodium [Moles/Vol] 140 mmol/L Normal 137-145 [facility] Comment on above: Performed By: #### C MP, CRP #### [facility] [address] [address] [address] Orlando Saldivar Urea nitrogen [Mass/Vol] 13.0 mg/dL Normal 6.4-19.3 [facility] Comment on above: Performed By: #### C MP, CRP #### [facility] [address] [address] [address] Orlando Saldivar Urea nitrogen/Creatinine [Mass ratio] 16.2 mg/mg Normal [facility] Comment on above: Performed By: #### C MP, CRP #### [facility] [address] [place] [address] Dr. Orlando Saldiv[facility] 11 mm/hr Normal <=20 [facility] Comment on above: Performed By: #### S EDR #### [facility] [address] [place] [address] Dr. Orlando Saldivar Complete Blood Count with Au to Diffon 06-13-2021 Basophils (Bld) [#/Vol] 0.05 10*3/uL Normal 0.00-0.20 [facility] Comment on above: Performed By: #### C BCAD #### [facility] [address] [place], [place] [phone] Basophils/100 WBC (Bld) 0.4 % Normal [facility] Comment on above: Performed By: #### C BCAD #### [facility] [address] [place], [place] [id number] Eosinophils (Bld) [#/Vol] 0.43 10*3/uL Normal 0.02-0.50 [facility] Comment on above: Performed By: #### C BCAD #### [facility] [address] [place], [place] [id number] Eosinophils/100 WBC (Bld) 3.0 % Normal [facility] Comment on above: Performed By: #### C BCAD #### [facility] [address] [place], [place] [id number] Erythrocyte distribution width (RBC) [Ratio] 12.4 % Normal 11.0-15.0 [facility] Comment on above: Performed By: #### C BCAD #### [facility] [address] [place], [place] [id number] Hematocrit (Bld) [Volume fraction] 38.3 % Normal 35.0-47.0 [facility] Comment on above: Performed By: #### C BCAD #### [facility] [address] [place], [place] [id number] Hemoglobin (Bld) [Mass/Vol] 12.7 g/dL Normal 11.6-15.5 [facility] Comment on above: Performed By: #### C BCAD #### [facility] [address] [place], [place] [id number] Lymphocytes (Bld) [#/Vol] 1.8 10*3/uL Normal 0.9-3.9 [facility] Comment on above: Performed By: #### C BCAD #### [facility] [address] [place], [place] [id number] Lymphocytes/100 WBC (Bld) 12.8 % Normal [facility] Comment on above: Performed By: #### C BCAD #### [facility] [address] [place], [place] [id number] MCH (RBC) [Entitic mass] 30.0 pg Normal 27.0-33.0 [facility] Comment on above: Performed By: #### C BCAD #### [facility] [address] [place], [place] [id number] MCHC (RBC) [Mass/Vol] 33.2 g/dL Normal 32.0-36.0 [facility] Comment on above: Performed By: #### C BCAD #### [facility] [address] [place], [place] [id number] MCV (RBC) [Entitic vol] 90 fL Normal 80-100 [facility] Comment on above: Performed By: #### C BCAD #### [facility] [address] [place], [place] [id number] Monocytes (Bld) [#/Vol] 1.0 10*3/uL High 0.2-0.9 [facility] Comment on above: Performed By: #### C BCAD #### [facility] [address] [place], [place] [id number] Monocytes/100 WBC (Bld) 7.4 % Normal [facility] Comment on above: Performed By: #### C BCAD #### [facility] [address] [place], [place] [id number] Neutrophils (Bld) [#/Vol] 10.7 10*3/uL High 1.5-7.8 [facility] Comment on above: Performed By: #### C BCAD #### [facility] [address] [place], [place] [id number] Neutrophils/100 WBC (Bld) 75.9 % Normal [facility] Comment on above: Performed By: #### C BCAD #### [facility] [address] [place], [place] [id number] Platelet mean volume (Bld) [Entitic vol] 10.00 fL Normal 7.50-12.50 [facility] Comment on above: Performed By: #### C BCAD #### [facility] [address] [place], [place] [id number] Platelets (Bld) [#/Vol] 293 10*3/uL Normal 140-400 [facility] Comment on above: Performed By: #### C BCAD #### [facility] [address] [place], [place] [id number] RBC (Bld) [#/Vol] 4.24 10*6/uL Normal 3.90-5.20 [facility] Comment on above: Performed By: #### C BCAD #### [facility] [address] [place], [place] [id number] RDW-SD 40.5 fL Normal 37.0-50.0 [facility] Comment on above: Performed By: #### C BCAD #### [facility] [address] [place], [place] [id number] WBC (Bld) [#/Vol] 14.1 10*3/uL High 3.8-11.0 [facility] Comment on above: Performed By: #### C BCAD #### [facility] [address] [place], [place] [id number] ZINC SERUM OR PLASMAon 05-03 Zinc, Plasma or Serum 74 ug/dL Normal 44-115 [facility] Comment on above: Result Comment: Dete ction Limit = 5 Performed By: #### Z inc #### [facility] [address] [place], [place] [address] Dr. Orlando Saldivar TRANSFERRINon 05-01-2021 Transferrin [Mass/Vol] 194 mg/dL Normal 192-364 [facility] Comment on above: Performed By: #### T JANETTESFR #### [facility] [address] [place] [address] [address] Orlando Saldivar CBC AUTO DIFFon 04-30-2021 BASO # 0.1 103/ul Normal 0.0-0.1 [facility] Comment on above: Performed By: #### C BC #### [facility] [address] [place] [address] [address] Orlando Saldivar Basophils/100 WBC (Bld) 0.4 % Normal 0.2-2.0 [facility] Comment on above: Performed By: #### C BC #### [facility] [address] [place] [address] [address] Orlando Saldivar EO # 0.2 103/ul Normal 0.0-0.7 [facility] Comment on above: Performed By: #### C BC #### [facility] [address] [place] [address] Dr. Orlando Saldivar Eosinophils/100 WBC (Bld) 1.6 % Normal 0.9-7.0 [facility] Comment on above: Performed By: #### C BC #### [facility] [address] [place] [address] [address] Orlando Saldivar Erythrocyte distribution width (RBC) [Ratio] 13.1 % Normal 11.0-15.0 [facility] Comment on above: Performed By: #### C BC #### [facility] [address] [address] [address] Orlando Saldivar Hematocrit (Bld) [Volume fraction] 40.1 % Normal 36.0-48.0 [facility] Comment on above: Performed By: #### C BC #### [facility] [address] [address] [address] Orlando Saldivar Hemoglobin (Bld) [Mass/Vol] 13.3 g/dL Normal 12.0-16.0 [facility] Comment on above: Performed By: #### C BC #### [facility] [address] [address] [address] Orlando Saldivar IG # 0.06 10e3/ul Critically high 0.00-0.03 [facility] Comment on above: Performed By: #### C BC #### [facility] [address] [place] [address] Dr. Orlando Saldivar IG % 0.5 % Normal 0.0-0.5 [facility] Comment on above: Performed By: #### C BC #### [facility] [address] [place] [address] Dr. Orlando Saldivar LYMPH # 1.8 103/ul Normal 1.2-3.8 [facility] Comment on above: Performed By: #### C BC #### [facility] [address] [place] [address] Dr. Orlando Saldivar Lymphocytes/100 WBC (Bld) 15.0 % Critically low 20.5-60.0 [facility] Comment on above: Performed By: #### C BC #### [facility] [address] [place] [address] Dr. Orlando Saldivar MANUAL DIFF REQ NO Normal [facility] Comment on above: Performed By: #### C BC #### [facility] [address] [place] [address] Dr. Orlando Saldivar MCH (RBC) [Entitic mass] 29.8 pg Normal 26.7-34.0 [facility] Comment on above: Performed By: #### C BC #### [facility] [address] [place] [address] Dr. Orlando Saldivar MCHC (RBC) [Mass/Vol] 33.2 g/dL Normal 29.9-35.2 [facility] Comment on above: Performed By: #### C BC #### [facility] [address] [place] [address] Dr. Orlando Saldivar MCV (RBC) [Entitic vol] 89.7 fL Normal 81.0-99.0 [facility] Comment on above: Performed By: #### C BC #### [facility] [address] [place] [address] Dr. Orlando Saldivar MONO # 0.7 103/ul Normal 0.3-0.8 [facility] Comment on above: Performed By: #### C BC #### [facility] [address] [place] [address] [address] Orlando Saldivar Monocytes/100 WBC (Bld) 6.0 % Normal 1.7-12.0 [facility] Comment on above: Performed By: #### C BC #### [facility] [address] [place] [address] [address] Orlando Saldivar NEUT # 9.4 103/ul Critically high 1.4-6.5 [facility] Comment on above: Performed By: #### C BC #### [facility] [address] [address] [address] Orlando Saldivar Neutrophils/100 WBC (Bld) 76.5 % Critically high 43.0-75.0 [facility] Comment on above: Performed By: #### C BC #### [facility] [address] [place] [address] Dr. Orlando Saldivar Platelet mean volume (Bld) [Entitic vol] 9.7 fL Normal 9.5-13.5 [facility] Comment on above: Performed By: #### C BC #### [facility] [address] [place] [address] [address] Oralndo Saldivar PLT 211 103/ul Normal 150-450 [facility] Comment on above: Performed By: #### C BC #### [facility] [address] [place] [address] [address] Orlando Saldivar RBC 4.47 106/ul Normal 4.20-5.40 [facility] Comment on above: Performed By: #### C BC #### [facility] [address] [place] [address] Dr. Orlando Saldivar WBC 12.3 103/ul Critically high 4.0-11.0 [facility] Comment on above: Performed By: #### C BC #### [facility] [address] [place] [address] [address] Orlando Saldivar CRPon 04-30-2021 CRP [Mass/Vol] mg/L Normal <=1.0 [facility] Comment on above: Performed By: #### C MP, CRP #### [facility] [address] [place] [address] Dr. Orlando Saldivar FERRITINon 04-30-2021 Ferritin [Mass/Vol] 118.0 ng/mL Normal 6.2-137.0 [facility] Comment on above: Performed By: #### T RANSFR #### [facility] [address] [place] [address] Dr. Orlando Saldivar IRON AND TIBCon 04-30-2021 % SATURATION 26.3 % Normal [facility] Comment on above: Performed By: #### F ERR, FETIBC, VITB12 #### [facility] [address] [place] [address] Dr. Orlando Saldivar Iron [Mass/Vol] 59.0 ug/dL Normal 37.0-170.0 [facility] Comment on above: Performed By: #### F ERR, FETIBC, VITB12 #### [facility] [address] [place] [address] Dr. Orlando Saldivar TIBC DIRECT 224.0 ug/dL Critically low 261.0-497.0 [facility] Comment on above: Performed By: #### F ERR, FETIBC, VITB12 #### [facility] [address] [place] [address] Dr. Orlando Saldivar PROF 14(COMP METB)on 022 Albumin [Mass/Vol] 3.7 g/dL Normal 3.5-5.0 [facility] Comment on above: Performed By: #### C MP, CRP #### [facility] [address] [place] [address] Dr. Orlando Saldivar Albumin/Globulin [Mass ratio] 1.3 {ratio} Normal [facility] Comment on above: Performed By: #### C MP, CRP #### [facility] [address] [place] [address] Dr. Orlando Saldivar ALP [Catalytic activity/Vol] 66 U/L Normal 38-126 [facility] Comment on above: Performed By: #### C MP, CRP #### [facility] [address] [place] [address] Dr. Orlando Saldivar ALT [Catalytic activity/Vol] 9 U/L Normal 9-52 [facility] Comment on above: Performed By: #### C MP, CRP #### [facility] [address] [place] [address] Dr. Orlando Saldivar Anion gap [Moles/Vol] 12.4 mmol/L Normal [facility] Comment on above: Performed By: #### C MP, CRP #### [facility] [address] [place] [address] [address] Orlando Saldivar AST [Catalytic activity/Vol] 10 U/L Critically low 14-36 [facility] Comment on above: Performed By: #### C MP, CRP #### [facility] [address] [place] [address] Dr. Orlando Saldivar Bilirubin [Mass/Vol] 0.4 mg/dL Normal 0.2-1.3 [facility] Comment on above: Performed By: #### C MP, CRP #### [facility] [address] [place] [address] Dr. Orlando Saldivar Calcium [Mass/Vol] 9.0 mg/dL Normal 8.4-10.2 [facility] Comment on above: Performed By: #### C MP, CRP #### [facility] [address] [place] [address] Dr. Orlando Saldivar Chloride [Moles/Vol] 103 mmol/L Normal 98-107 [facility] Comment on above: Performed By: #### C MP, CRP #### [facility] [address] [place] [address] Dr. Orlando Saldivar CO2 [Moles/Vol] 26.0 mmol/L Normal 22.0-30.0 [facility] Comment on above: Performed By: #### C MP, CRP #### [facility] [address] [place] [address] Dr. Orlando Saldivar Creatinine [Mass/Vol] 0.92 mg/dL Normal 0.52-1.04 [facility] Comment on above: Performed By: #### C MP, CRP #### [facility] [address] [place] [address] Dr. Orlando Saldivar EGFR-AF AUSTRALIAN >60 Normal >=60 [facility] Comment on above: Performed By: #### C MP, CRP #### [facility] [address] [place] [address] Dr. Orlando Saldivar EGFR-NON AF AUSTRALIAN >60 Normal >=60 [facility] Comment on above: Performed By: #### C MP, CRP #### [facility] [address] [place] [address] [address] Orlando Saldivar Globulin (S) [Mass/Vol] 2.9 g/dL Normal [facility] Comment on above: Performed By: #### C MP, CRP #### [facility] [address] [place] [address] [address] Orlando Saldivar Glucose [Mass/Vol] 119 mg/dL Critically high 74-106 [facility] Comment on above: Performed By: #### C MP, CRP #### [facility] [address] [place] [address] Dr. Orlando Saldivar Potassium [Moles/Vol] 3.4 mmol/L Normal 3.4-5.0 [facility] Comment on above: Performed By: #### C MP, CRP #### [facility] [address] [place] [address] Dr. Orlando Saldivar Protein [Mass/Vol] 6.6 g/dL Normal 6.1-8.2 [facility] Comment on above: Performed By: #### C MP, CRP #### [facility] [address] [place] [address] Dr. Orlando Saldivar Sodium [Moles/Vol] 138 mmol/L Normal 137-145 [facility] Comment on above: Performed By: #### C MP, CRP #### [facility] [address] [place] [address] Dr. Orlando Saldivar Urea nitrogen [Mass/Vol] 8.0 mg/dL Normal 6.4-19.3 [facility] Comment on above: Performed By: #### C MP, CRP #### [facility] [address] [place] [address] Dr. Orlando Saldivar Urea nitrogen/Creatinine [Mass ratio] 8.7 mg/mg Normal [facility] Comment on above: Performed By: #### C MP, CRP #### [facility] [address] [place] [address] [address] Orlando Saldivar SED RATE WESTERGRENon 2021 SED RATE 7 mm/hr Normal <=20 [facility] Comment on above: Performed By: #### S EDR #### [facility] [address] [place] [address] [address] Orlando Saldivar VITAMIN B12on 04-30-2021 Cobalamin (Vitamin B12) [Mass/Vol] 812.0 pg/mL Normal 239.0-931.0 [facility] Comment on above: Performed By: #### T RANSFR #### [facility] [address] [place] [address] Dr. Orlando Saldivar Lab Reportson 01-17-2020 Lab Reports [id number] D:127 Normal [facility] Consultation Noteon 01-13-20 Consultation Note [id number] :127 Normal [facility] Auth for Release of Medical Recordson 12-09-2019 Auth for Release of Medical Records [id number] :127 Normal [facility] Consultation Noteon 11-24-19 Consultation Note [id number] D:127 Normal [facility] Consultation Noteon 11-22-19 Consultation Note [id number] D:127 Normal [facility] Vital Signs Date Time Vital Sign Value Performing Clinician Facility 12-26-2024 11: Body height 160 cm Clifford Rodas MD Work Phone: [facility] Comment on above: w/o shoes 12-26-2024 11:04-0400 Body mass index (BMI) [Ratio] 26.96 kg/m2 Clifford Rodas MD Work Phone: 4(736)812-852519 [place] [address] 12-26-2024 11:04-0400 Body temperature 98.2 [degF] Clifford Rodas MD Work Phone: 2(651)998-419119 [place] [address] 12-26-2024 11:04-0400 Body weight 69.04 kg Clifford Rodas MD Work Phone: 2(568)799-801219 [place] [address] Comment on above: w/o shoes 12-26-2024 11:04-0400 Diastolic blood pressure 71 mm[Hg] Clifford Rodas MD Work Phone: 0(788)249-137619 [place] [address] 12-26-2024 11:04-0400 Heart rate 67 /min Clifford Rodas MD Work Phone: 4(145)069-967319 [place] [address] 12-26-2024 11:04-0400 Respiratory rate 16 /min Clifford Rodas MD Work Phone: 6(796)410-437319 [place] [address] 12-26-2024 11:04-0400 SaO2% (BldA) [Mass fraction] 98 % Clifford Rodas MD Work Phone: 0(040)217-605219 [place] [address] Comment on above: room air 12-26-2024 11:04-0400 Systolic blood pressure 104 mm[Hg] Clifford Rodas MD Work Phone: 5(181)029-600519 [place] [address] 11-02-2024 18:42-0400 Diastolic blood pressure 77 mm[Hg] Clifford Rodas MD Work Phone: 5(695)334-133919 [place] [address] 11-02-2024 18:42-0400 Heart rate 66 /min Clifford Rodas MD Work Phone: 2(390)075-928219 [place] [address] 11-02-2024 18:42-0400 Respiratory rate 16 /min Clifford Rodas MD Work Phone: 5(442)900-830519 [place] [address] 11-02-2024 18:42-0400 SaO2% (BldA) [Mass fraction] 99 % Clifford Rodas MD Work Phone: [facility] 11-02-2024 18:42-0400 Systolic blood pressure 106 mm[Hg] Clifford Rodas MD Work Phone: [facility] 11-02-2024 18:15-0400 Body temperature 97.59 [degF] Clifford Rodas MD Work Phone: 0(427)703-087788 [address] 11-02-2024 14:41-0400 Body height 160 cm Cilfford Rodas MD Work Phone: [facility] 11-02-2024 14:41-0400 Body mass index (BMI) [Ratio] 27.62 kg/m2 Clifford Rodas MD Work Phone: 1(548)254-192388 [address] 11-02-2024 14:41-0400 Body weight 70.72 kg Clifford Rodas MD Work Phone: [facility] 10-17-2024 10:30-0400 Body height 161 cm Clifford Rodas MD Work Phone: 5(877)749-669619 [place] [address] Comment on above: w/o shoes 10-17-2024 10:30-0400 Body mass index (BMI) [Ratio] 28.63 kg/m2 Clifford Rodas MD Work Phone: [facility] 10-17-2024 10:30-0400 Body temperature 98.29 [degF] Clifford Rodas MD Work Phone: [facility] 10-17-2024 10:30-0400 Body weight 74.21 kg Clifford Rodas MD Work Phone: [facility] Comment on above: w/o shoes 10-17-2024 10:30-0400 Diastolic blood pressure 63 mm[Hg] Clifford Rodas MD Work Phone: 3(900)414-427288 [address] 10-17-2024 10:30-0400 Heart rate 75 /min Clifford Rodas MD Work Phone: [facility] 10-17-2024 10:30-0400 Respiratory rate 16 /min Clifford Rodas MD Work Phone: [facility] 10-17-2024 10:30-0400 SaO2% (BldA) [Mass fraction] 100 % Clifford Rodas MD Work Phone: [facility] Comment on above: room air 10-17-2024 10:30-0400 Systolic blood pressure 111 mm[Hg] Clifford Rodas MD Work Phone: [facility] 09-26-2024 16:04-0400 Body mass index (BMI) [Ratio] 29.23 kg/m2 Serene Jean Baptistetrick [employer] Work Phone: [facility] 09-26-2024 16:04-0400 Body temperature 97.5 [degF] Serene Alfred [employer] Work Phone: [facility] 09-26-2024 16:04-0400 Body weight 74.84 kg Serene Alfred [employer] Work Phone: [facility] 09-26-2024 16:04-0400 Diastolic blood pressure 74 mm[Hg] Serene Alfred [employer] Work Phone: [facility] 09-26-2024 16:04-0400 Heart rate 92 /min Serene Alfred [employer] Work Phone: [facility] 09-26-2024 16:04-0400 SaO2% (BldA) [Mass fraction] 95 % Serene Alfred [employer] Work Phone: [facility] 09-26-2024 16:04-0400 Systolic blood pressure 104 mm[Hg] Serene Alfred [employer] Work Phone: [facility] 09-22-2024 14:05-0400 Body height 160 cm Milind Fitch APRN-WASH BOX OPERATOR Work Phone: [facility] 09-22-2024 14:05-0400 Body mass index (BMI) [Ratio] 64.59 kg/m2 Milind Fitch APRN-WASH BOX OPERATOR Work Phone: [facility] 09-22-2024 14:05-0400 Body weight 165.38 kg Milind Fitch APRN-WASH BOX OPERATOR Work Phone: [facility] 09-22-2024 14:05-0400 Diastolic blood pressure 78 mm[Hg] Milind Fitch APRN-WASH BOX OPERATOR Work Phone: [facility] 09-22-2024 14:05-0400 Heart rate 74 /min Milind Fitch FINANCIAL ADMINISTRATION OFFICER-WASH BOX OPERATOR Work Phone: [facility] 09-22-2024 14:05-0400 Respiratory rate 21 /min Milind Fitch APRN-WASH BOX OPERATOR Work Phone: [facility] 09-22-2024 14:05-0400 SaO2% (BldA) [Mass fraction] 98 % Milind Fitch APRN-WASH BOX OPERATOR Work Phone: [facility] 09-22-2024 14:05-0400 Systolic blood pressure 118 mm[Hg] Milind Fitch FINANCIAL ADMINISTRATION OFFICER-WASH BOX OPERATOR Work Phone: [facility] 09-06-2024 14:55-0400 Heart rate 78 /min Tu Dalton MD Work Phone: [facility] 09-06-2024 14:55-0400 Respiratory rate 46 /min Tu Dalton MD Work Phone: [facility] 09-06-2024 14:55-0400 SaO2% (BldA) [Mass fraction] 99 % Tu Dalton MD Work Phone: [facility] 09-06-2024 14:50-0400 Diastolic blood pressure 72 mm[Hg] Tu Dalton MD Work Phone: [facility] 09-06-2024 14:50-0400 Systolic blood pressure 106 mm[Hg] Tu Dalton MD Work Phone: [facility] 09-06-2024 14:14-0400 Body temperature 97.7 [degF] Tu Dalton MD Work Phone: [facility] 09-06-2024 12:35-0400 Body height 160 cm Tu Dalton MD Work Phone: [facility] 09-06-2024 12:35-0400 Body mass index (BMI) [Ratio] 29.58 kg/m2 Tu Dalton MD Work Phone: [facility] 09-06-2024 12:35-0400 Body weight 75.75 kg Tu Dalton MD Work Phone: [facility] 08-01-2024 17:40-0400 Body height 160 cm Katie Aceves [employer] Work Phone: [facility] 08-01-2024 17:40-0400 Body mass index (BMI) [Ratio] 30.11 kg/m2 Katie Aceves [employer] Work Phone: [facility] 08-01-2024 17:40-0400 Body temperature 99.3 [degF] Katie Aceves [employer] Work Phone: [facility] 08-01-2024 17:40-0400 Body weight 77.11 kg Katie Aceves [employer] Work Phone: [facility] 08-01-2024 17:40-0400 Diastolic blood pressure 80 mm[Hg] Katie Aceves [employer] Work Phone: [facility] 08-01-2024 17:40-0400 Heart rate 88 /min Katie Aceves [employer] Work Phone: [facility] 08-01-2024 17:40-0400 Respiratory rate 18 /min Katie Vegasenburg [employer] Work Phone: [facility] 08-01-2024 17:40-0400 SaO2% (BldA) [Mass fraction] 98 % Katiefer Vegasenburg [employer] Work Phone: [facility] 08-01-2024 17:40-0400 Systolic blood pressure 120 mm[Hg] Katie Hajessicaenburg [employer] Work Phone: [facility] 07-15-2024 15:13-0400 Body height 160 cm Chey Aragon MD Work Phone: [facility] 07-15-2024 15:13-0400 Body mass index (BMI) [Ratio] 30.65 kg/m2 Chey Aragon MD Work Phone: [facility] 07-15-2024 15:13-0400 Body weight 78.47 kg Chey Aragon MD Work Phone: [facility] 07-15-2024 15:13-0400 Diastolic blood pressure 80 mm[Hg] Chey Aragon MD Work Phone: [facility] 07-15-2024 15:13-0400 Heart rate 100 /min Chey Aragon MD Work Phone: [facility] 07-15-2024 15:13-0400 SaO2% (BldA) [Mass fraction] 98 % Chey Aragon MD Work Phone: [facility] 07-15-2024 15:13-0400 Systolic blood pressure 108 mm[Hg] Chey Aragon MD Work Phone: [facility] 05-17-2024 15:05-0500 Body height 160 cm Katie Vegasria [employer] Work Phone: [facility] 05-17-2024 15:05-0500 Body mass index (BMI) [Ratio] 32.06 kg/m2 Katie Hackenburg [employer] Work Phone: [facility] 05-17-2024 15:05-0500 Body temperature 100.51 [degF] Katie Aceves [employer] Work Phone: [facility] 05-17-2024 15:05-0500 Body weight 82.1 kg Katie Aceves [employer] Work Phone: [facility] 05-17-2024 15:05-0500 Diastolic blood pressure 70 mm[Hg] Katie Aceves [employer] Work Phone: [facility] 05-17-2024 15:05-0500 Heart rate 101 /min Katie Aceves [employer] Work Phone: [facility] 05-17-2024 15:05-0500 Respiratory rate 20 /min Katie Aceves [employer] Work Phone: [facility] 05-17-2024 15:05-0500 SaO2% (BldA) [Mass fraction] 99 % Katie Aceves [employer] Work Phone: [facility] 05-17-2024 15:05-0500 Systolic blood pressure 110 mm[Hg] Katie Aceves [employer] Work Phone: [facility] 05-04-2024 10:52-0500 Body height 160.5 cm Zhou Lee MD Work Phone: [facility] 05-04-2024 10:52-0500 Body mass index (BMI) [Ratio] 32.34 kg/m2 Zhou Lee MD Work Phone: [facility] 05-04-2024 10:52-0500 Body weight 83.3 kg Zhou Lee MD Work Phone: [facility] 05-04-2024 10:52-0500 Respiratory rate 18 /min Zhou Lee MD Work Phone: [facility] 03-22-2024 15:40-0500 Body temperature 97.3 [degF] Zhou Lee MD Work Phone: [facility] 03-22-2024 15:40-0500 Diastolic blood pressure 80 mm[Hg] Zhou Lee MD Work Phone: [facility] 03-22-2024 15:40-0500 Heart rate 70 /min Zhou Lee MD Work Phone: [facility] 03-22-2024 15:40-0500 Respiratory rate 20 /min Zhou Lee MD Work Phone: [facility] 03-22-2024 15:40-0500 SaO2% (BldA) [Mass fraction] 99 % Zhou Lee MD Work Phone: [facility] 03-22-2024 15:40-0500 Systolic blood pressure 100 mm[Hg] Zhou Lee MD Work Phone: [facility] 03-22-2024 12:38-0500 Body height 160.5 cm Zhou Lee MD Work Phone: [facility] 03-22-2024 12:38-0500 Body mass index (BMI) [Ratio] 32.34 kg/m2 Zhou Lee MD Work Phone: [facility] 03-22-2024 12:38-0500 Body weight 83.3 kg Zhou Lee MD Work Phone: [facility] 02-10-2024 10:31-0400 Body mass index (BMI) [Ratio] 33.48 kg/m2 Serene Alfred [employer] Work Phone: [facility] 02-10-2024 10:31-0400 Body weight 85.73 kg Serene Alfred [employer] Work Phone: [facility] 02-10-2024 10:31-0400 Diastolic blood pressure 88 mm[Hg] Serene Alfred [employer] Work Phone: [facility] 02-10-2024 10:31-0400 Heart rate 76 /min Serene Paulk [employer] Work Phone: [facility] 02-10-2024 10:31-0400 Systolic blood pressure 110 mm[Hg] Serene Jean Baptistetrick [employer] Work Phone: [facility] 01-27-2024 09:50-0400 Body height 160 cm Serene Paulk [employer] Work Phone: [facility] 01-27-2024 09:50-0400 Body mass index (BMI) [Ratio] 34.19 kg/m2 Serene Paulk [employer] Work Phone: [facility] 01-27-2024 09:50-0400 Body temperature 97.39 [degF] Serene Paulk [employer] Work Phone: [facility] 01-27-2024 09:50-0400 Body weight 87.54 kg Serene Paulk [employer] Work Phone: [facility] 01-27-2024 09:50-0400 Diastolic blood pressure 70 mm[Hg] Serene Paulk [employer] Work Phone: [facility] 01-27-2024 09:50-0400 Systolic blood pressure 116 mm[Hg] Serene Paulk [employer] Work Phone: [facility] 11-18-2023 11:15-0400 Diastolic blood pressure 66 mm[Hg] Sharath Lambert MD Work Phone: [facility] 11-18-2023 11:15-0400 Heart rate 68 /min Sharath Lambert MD Work Phone: [facility] 11-18-2023 11:15-0400 Respiratory rate 22 /min Sharath Lambert MD Work Phone: [facility] 11-18-2023 11:15-0400 SaO2% (BldA) [Mass fraction] 100 % Sharath Lambert MD Work Phone: [facility] 11-18-2023 11:15-0400 Systolic blood pressure 103 mm[Hg] Sharath Lambert MD Work Phone: [facility] 11-18-2023 10:53-0400 Body temperature 97.7 [degF] Sharath Lambert MD Work Phone: [facility] 11-18-2023 09:53-0400 Body height 160 cm Sharath Lambert MD Work Phone: [facility] 11-18-2023 09:53-0400 Body mass index (BMI) [Ratio] 32.97 kg/m2 Sharath Lambert MD Work Phone: [facility] 11-18-2023 09:53-0400 Body weight 84.41 kg Sharaht Lambert MD Work Phone: [facility] 08-06-2023 11:43-0400 Body height 160 cm Christine Mckeon MD Work Phone: [facility] 08-06-2023 11:43-0400 Body mass index (BMI) [Ratio] 37.91 kg/m2 Christine Mckeon MD Work Phone: [facility] 08-06-2023 11:43-0400 Body weight 97.07 kg Christine Mckeon MD Work Phone: [facility] 08-06-2023 11:43-0400 Diastolic blood pressure 76 mm[Hg] Christine Mckeon MD Work Phone: [facility] 08-06-2023 11:43-0400 Heart rate 101 /min Christine Mckeon MD Work Phone: [facility] 08-06-2023 11:43-0400 SaO2% (BldA) [Mass fraction] 98 % Christine Mckeon MD Work Phone: [facility] 08-06-2023 11:43-0400 Systolic blood pressure 102 mm[Hg] Christine Mckeon MD Work Phone: [facility] 08-06-2023 09:34-0400 Body height 160 cm Teresa Espinosahoff FINANCIAL ADMINISTRATION OFFICER-WASH BOX OPERATOR Work Phone: [facility] 08-06-2023 09:34-0400 Body mass index (BMI) [Ratio] 37.98 kg/m2 Teresa Verhoff FINANCIAL ADMINISTRATION OFFICER-WASH BOX OPERATOR Work Phone: [facility] 08-06-2023 09:34-0400 Body weight 97.25 kg Teresa Verhoff FINANCIAL ADMINISTRATION OFFICER-WASH BOX OPERATOR Work Phone: [facility] 08-06-2023 09:34-0400 Diastolic blood pressure 76 mm[Hg] Teresa Aguirreff FINANCIAL ADMINISTRATION OFFICER-WASH BOX OPERATOR Work Phone: [facility] 08-06-2023 09:34-0400 Heart rate 75 /min Teresa Verhoff FINANCIAL ADMINISTRATION OFFICER-WASH BOX OPERATOR Work Phone: [facility] 08-06-2023 09:34-0400 SaO2% (BldA) [Mass fraction] 98 % Teresa Espinosahoff FINANCIAL ADMINISTRATION OFFICER-WASH BOX OPERATOR Work Phone: [facility] 08-06-2023 09:34-0400 Systolic blood pressure 102 mm[Hg] Teresa Verhoff FINANCIAL ADMINISTRATION OFFICER-WASH BOX OPERATOR Work Phone: [facility] 05-26-2023 17:17-0500 Body height 160 cm Rubia Hernandez NP Work Phone: [facility] 05-26-2023 17:17-0500 Body mass index (BMI) [Ratio] 34.97 kg/m2 Rubia Hernandez NP Work Phone: [facility] 05-26-2023 17:17-0500 Body weight 89.54 kg Rubia Hernandez [employer] Work Phone: [facility] 05-26-2023 17:17-0500 Diastolic blood pressure 60 mm[Hg] Rubia Hernandez [employer] Work Phone: [facility] 05-26-2023 17:17-0500 Heart rate 104 /min Rubia Hernandez [employer] Work Phone: [facility] 05-26-2023 17:17-0500 SaO2% (BldA) [Mass fraction] 99 % Rubia Hernandez [employer] Work Phone: [facility] 05-26-2023 17:17-0500 Systolic blood pressure 110 mm[Hg] Rubia Hernandez [employer] Work Phone: [facility] 04-24-2023 13:59-0500 Body height 160 cm Ruchi Carmona MD Work Phone: [facility] 04-24-2023 13:59-0500 Diastolic blood pressure 68 mm[Hg] Ruchi Carmona MD Work Phone: [facility] 04-24-2023 13:59-0500 Heart rate 81 /min Ruchi Carmona MD Work Phone: [facility] 04-24-2023 13:59-0500 Systolic blood pressure 106 mm[Hg] Ruchi Carmona MD Work Phone: [facility] 02-25-2023 12:32-0500 Body height 160 cm Kye Solis MD Work Phone: [facility] 02-25-2023 12:32-0500 Body mass index (BMI) [Ratio] 32.06 kg/m2 Kye Solis MD Work Phone: [facility] 02-25-2023 12:32-0500 Body weight 82.1 kg Kye Solis MD Work Phone: [facility] 02-25-2023 12:32-0500 Diastolic blood pressure 70 mm[Hg] Kye Solis MD Work Phone: [facility] 02-25-2023 12:32-0500 Heart rate 74 /min Kye Solis MD Work Phone: [facility] 02-25-2023 12:32-0500 SaO2% (BldA) [Mass fraction] 97 % Kye Solis MD Work Phone: [facility] Comment on above: RA 02-25-2023 12:32-0500 Systolic blood pressure 118 mm[Hg] Kye Solis MD Work Phone: [facility] 01-26-2023 10:50-0400 Body height 161.1 cm Enmanuel Osuna MD Work Phone: [facility] 01-26-2023 10:50-0400 Body mass index (BMI) [Ratio] 31.25 kg/m2 Enmanuel Osuna MD Work Phone: [facility] 01-26-2023 10:50-0400 Body temperature 98.1 [degF] Enmanuel Osuna MD Work Phone: [facility] 01-26-2023 10:50-0400 Body weight 81.1 kg Enmanuel Osuna MD Work Phone: [facility] 01-26-2023 10:50-0400 Diastolic blood pressure 65 mm[Hg] Enmanuel Osuna MD Work Phone: [facility] 01-26-2023 10:50-0400 Heart rate 73 /min Enmanuel Osuna MD Work Phone: [facility] 01-26-2023 10:50-0400 Respiratory rate 20 /min Enmanuel Osuna MD Work Phone: [facility] 01-26-2023 10:50-0400 Systolic blood pressure 100 mm[Hg] Enmanuel Osuna MD Work Phone: [facility] 01-26-2023 09:51-0400 Body height 161.1 cm Zhou Lee MD Work Phone: [facility] 01-26-2023 09:51-0400 Body mass index (BMI) [Ratio] 31.25 kg/m2 Zhou Lee MD Work Phone: [facility] 01-26-2023 09:51-0400 Body weight 81.1 kg Zhou Lee MD Work Phone: [facility] 01-26-2023 09:51-0400 Respiratory rate 20 /min Zhou Lee MD Work Phone: [facility] 01-26-2023 08:15-0400 Body height 161.1 cm Ioana Otero MD Work Phone: [facility] 01-26-2023 08:15-0400 Body mass index (BMI) [Ratio] 31.25 kg/m2 Ioana Otero MD Work Phone: [facility] 01-26-2023 08:15-0400 Body temperature 98.2 [degF] Ioana Otero MD Work Phone: [facility] 01-26-2023 08:15-0400 Body weight 81.1 kg Ioana Otero MD Work Phone: [facility] 01-26-2023 08:15-0400 Diastolic blood pressure 77 mm[Hg] Ioana Otero MD Work Phone: [facility] 01-26-2023 08:15-0400 Heart rate 74 /min Ioana Otero MD Work Phone: [facility] 01-26-2023 08:15-0400 Systolic blood pressure 110 mm[Hg] Ioana Otero MD Work Phone: [facility] 12-26-2022 12:00-0400 Body weight 81.6 kg Connie Mac RN [facility] 05-05-2022 11:04-0500 Body height 162 cm Zhou Lee MD Work Phone: [facility] Comment on above: prior reading 05-05-2022 11:04-0500 Body mass index (BMI) [Ratio] 31.09 kg/m2 Zhou Lee MD Work Phone: [facility] 05-05-2022 11:04-0500 Body weight 81.6 kg Zhou Lee MD Work Phone: [facility] 05-05-2022 11:04-0500 Heart rate 84 /min Zhou Lee MD Work Phone: [facility] 08-13-2021 18:15-0400 Diastolic blood pressure 76 mm[Hg] Jessie Lenz MD Work Phone: [facility] 08-13-2021 18:15-0400 Heart rate 86 /min Jessie Lenz MD Work Phone: [facility] 08-13-2021 18:15-0400 Systolic blood pressure 116 mm[Hg] Jessie Lenz MD Work Phone: [facility] 08-13-2021 16:15-0400 Body temperature 99.1 [degF] Jessie Lenz MD Work Phone: [facility] 08-13-2021 11:30-0400 Respiratory rate 16 /min Jessie eLnz MD Work Phone: [facility] 08-13-2021 11:30-0400 SaO2% (BldA) [Mass fraction] 99 % Jessie Lenz MD Work Phone: [facility] 08-13-2021 08:15-0400 Body height 164 cm Jessie Lenz MD Work Phone: [facility] 08-13-2021 08:15-0400 Body mass index (BMI) [Percentile] Per age and sex 95.01 % Jessie Lenz MD Work Phone: [employer] [place] 08-13-2021 [id number] Body mass index (BMI) [Ratio] 31.6 kg/m2 Jessie Lenz MD Work Phone: [employer] 08-13-2021 08: Body weight 85 kg Jessie Lenz MD Work Phone: [facility] [employer] [place] Encounters Encounter Date Encounter Type Care Provider Facility Start: 01-17-2025 Evaluation and manag ement of inpatient CLIFFORD RODAS Facility:[facility] Start: 12-26-2024 ambulatory CLIFFORD RODAS Facili ty:[facility] Start: 12-26-2024 End: 12-26-2024 Office outpatient visit 25 minutes Clifford Rodas MD Work Phone: Division of Colon & Rectal Surgery Comment on above: Anorectal stricture (Primary Dx) Start: 12-26-2024 ambulatory [facility] Facility:[facility] Start: 12-09-2024 End: 12-09-2024 Clinisync Result Encounter Generic External Data Provider [facility] External Department Unsolicited Start: 12-09-2024 End: 12-09-2024 Clinisync Result Encounter Generic External Data Provider [facility] External Department Unsolicited Start: 12-09-2024 ambulatory [facility] Facility:[facility] Start: 11-14-2024 ambulatory YVETTE Molina ility:[facility] Start: 11-02-2024 End: 11-02-2024 ambulatory CLIFFORD RODAS Facility:[facility] Start: 11-02-2024 End: 11-02-2024 Subsequent hospital visit by physician Clifford Rodas MD Work Phone: [facility] Comment on above: Crohn's disease of b oth small and large intestine with complication Start: 10-31-2024 End: 11-01-2024 Clinisync Result Encounter Generic External Data Provider [facility] External Department Unsolicited Start: 10-31-2024 End: 11-01-2024 Clinisync Result Encounter Generic External Data Provider [facility] External Department Unsolicited Start: 10-26-2024 End: 10-28-2024 ambulatory CLIFFORD RODAS [facility] Start: 10-26-2024 End: 10-28-2024 Subsequent hospital visit by physician Beni Ct Rm 1 [facility] Scan Comment on above: Crohn's disease of b ot small and large intestine with complication (HCC) Start: 10-26-2024 ambulatory CLIFFORD Jake NOVA Hollins ty:[facility] Start: 10-17-2024 End: 10-17-2024 Office consultation new/estab patient 80 min Clifford Rodas MD Work Phone: Division of Colon & Rectal Surgery Comment on above: Crohn's disease of b ot small and large intestine with complication (Primary Dx) Start: 10-17-2024 ambulatory CLIFFORD Jake NOVA Hollins ty:[facility] Start: 09-26-2024 End: 09-26-2024 Office outpatient visit 25 minutes Serene Alfred [employer] Work Phone: [facility] Comment on above: Acute cough (Primary Dx); Acute bilateral otitis media; Acute viral bronchitis; Wheezing Start: 09-26-2024 End: 09-26-2024 ambulatory SERENE ALFRED Not Available Start: 09-22-2024 End: 09-22-2024 Office outpatient visit 15 minutes Milind Fitch FINANCIAL ADMINISTRATION OFFICER-WASH BOX OPERATOR Work Phone: Inflammatory Bowel Disease [facility] Comment on above: Crohn's disease of b ot small and large intestine with complication (Primary Dx) Start: 09-22-2024 ambulatory SELF SELF Facility:[facility] Start: 09-12-2024 ambulatory MILIND FITCH Facility:[facility] Start: 09-06-2024 ambulatory MILIND DE DIOSFernanda Facility:[facility] Start: 09-06-2024 End: 09-06-2024 Subsequent hospital visit by physician Tu Dalton MD Work Phone: [facility] Comment on above: Arrived Start: 08-01-2024 End: 08-01-2024 Office outpatient visit 25 minutes Katie Vegasenvalentine [employer] Work Phone: [facility] Comment on above: Immunocompromised pa tient ([facility]) (Primary Dx); Nonintractable episodic headache, unspecified headache type; 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 Start: 08-01-2024 End: 08-01-2024 ambulatory KATIE A HACKENBURG Not Available Start: 08-01-2024 End: 08-01-2024 Bamboo flowsheet Katie A Hajessicaenburg [employer] Work Phone: [facility] Start: 08-01-2024 End: 08-01-2024 Bamboo flowsheet Katie A Hackenburg [employer] Work Phone: [facility] Start: 07-27-2024 End: 07-27-2024 ambulatory RUBIA EMY Not Available Start: 07-20-2024 End: 07-20-2024 Orders Only Rubia Hernandez [employer] Work Phone: [facility] Comment on above: Nonintractable episo dic headache, unspecified headache type (Primary Dx) Start: 07-15-2024 End: 07-15-2024 Office outpatient visit 15 minutes Chey Aragon MD Work Phone: [facility] Comment on above: Nonintractable episo dic headache, unspecified headache type (Primary Dx) Start: 07-15-2024 End: 07-15-2024 ambulatory CHEY ARAGON Not Available Start: 07-15-2024 End: 07-15-2024 Bamboo flowsheet Chey Aragon MD Work Phone: [facility] Start: 07-15-2024 End: 07-15-2024 Bamboo flowsheet Chey Aragon MD Work Phone: [facility] Start: 07-13-2024 End: 07-13-2024 [facility] Start: 06-22-2024 ambulatory CHEY ARAGON [facility] Start: 06-06-2024 End: 06-06-2024 Clinisync Result Encounter Generic External Data Provider [facility] External Department Unsolicited Start: 06-06-2024 End: 06-06-2024 Clinisync Result Encounter Generic External Data Provider [facility] External Department Unsolicited Start: 06-03-2024 End: 06-03-2024 Clinisync Result Encounter Generic External Data Provider [facility] External Department Unsolicited Start: 06-03-2024 End: 06-03-2024 Clinisync Result Encounter Generic External Data Provider [facility] External Department Unsolicited Start: 05-26-2024 ambulatory MILIND FITCH Facility:[facility] Start: 05-18-2024 End: 05-18-2024 Telephone encounter Chey Aragon MD Work Phone: [facility] Start: 05-17-2024 End: 05-17-2024 Office outpatient visit 15 minutes Katie Lorenzo Aceves [employer] Work Phone: [facility] Comment on above: Viral URI (Primary D x); Fever, unspecified fever cause Start: 05-17-2024 End: 05-17-2024 ambulatory KATIE A HACKENBURG Not Available Start: 05-17-2024 End: 05-17-2024 Bamboo flowsheet Katie A Hackenburg [employer] Work Phone: [facility] Start: 05-17-2024 End: 05-17-2024 Bamboo flowsheet Katie A Hackenburg [employer] Work Phone: [facility] Start: 05-04-2024 ambulatory CHEY ARAGON [facility] Start: 05-04-2024 End: 05-04-2024 Office outpatient visit 15 minutes Zhou Lee MD Work Phone: ENT [facility] Comment on above: Surgical Followup Start: 04-28-2024 End: 04-28-2024 Telephone encounter Payton Campo APRN Work Phone: ENT [facility] Start: 03-22-2024 End: 03-22-2024 ambulatory CHEY ARAGON [facility] Start: 03-22-2024 End: 03-22-2024 Subsequent hospital visit by physician Zhou Lee MD Work Phone: [facility] Start: 03-15-2024 End: 03-15-2024 Telephone encounter Zhou Lee MD Work Phone: [facility] [place] Comment on above: Change Appointment Start: 03-03-2024 End: 03-03-2024 Telephone encounter Zhou Lee MD Work Phone: [facility] [place] Comment on above: Schedule Procedure Start: 03-02-2024 End: 03-02-2024 ambulatory Naima Coates CPNP-PC Facility:[facility] Start: 02-29-2024 End: 02-29-2024 ambulatory [facility] Start: 02-29-2024 End: 02-29-2024 Subsequent hospital visit by physician Ct [facility] [place] Comment on above: Chronic sinusitis, u nspecified location Start: 02-16-2024 Telephone encounter Andressa Mandujano RN ENT [facility] [place] Comment on above: Case Discussion Start: 02-10-2024 End: 02-10-2024 Bamboo flowsheet Serene Alfred [employer] Work Phone: [facility] Start: 02-10-2024 End: 02-10-2024 Bamboo flowsheet Serene Alfred [employer] Work Phone: [facility] Start: 02-10-2024 End: 02-10-2024 Office outpatient visit 15 minutes Serene Alfred [employer] Work Phone: [facility] Comment on above: Anxiety (Primary Dx) Start: 02-10-2024 End: 02-10-2024 ambulatory SERENE ALFRED Not Available Start: 01-27-2024 End: 01-27-2024 Bamboo flowsheet Serene Alfred [employer] Work Phone: [facility] Start: 01-27-2024 End: 01-27-2024 Bamboo flowsheet Serene Alfred [employer] Work Phone: [facility] Start: 01-27-2024 End: 01-27-2024 Patient encounter status Serene Alfred [employer] Work Phone: [facility] Work Phone: Start: 01-27-2024 End: 01-27-2024 Periodic preventive med est patient 18-39 yrs Serene Alfred [employer] Work Phone: [facility] Comment on above: Encounter for wellne ss examination in adult (Primary Dx); Adalimumab (Humira) long-term use; At risk for infection due to immunosuppression; Chronic sinusitis, unspecified location; Crohn's disease of both small and large intestine without complication (CMS/HCC); Encounter for monitoring rituximab therapy; Gastroesophageal reflux disease without esophagitis; Chronic intractable headache, unspecified headache type; Hypogammaglobulinemia (CMS/HCC); Immunocompromised patient (CMS/HCC); Immunodeficiency (CMS/HCC); IgG1 deficiency (CMS/HCC); Microcytic anemia; Pulmonary nodules; S/P small bowel resection; Tension headache; Alopecia areata; Vitamin D deficiency; Psoriasis (CMS/HCC); Immunosuppressed status (CMS/HCC); Other fatigue; Anxiety; Obesity (BMI 30.0-34.9); Crohn's disease of both small and large intestine with unspecified complications (CMS/HCC) Start: 01-27-2024 End: 01-27-2024 ambulatory SERENE ALFRED Not Available Start: 11-18-2023 End: 11-18-2023 Subsequent hospital visit by physician Sharath Lambert MD Work Phone: [facility] Comment on above: Arrived Start: 11-09-2023 End: 11-09-2023 ambulatory CHEY ARAGON [facility] Start: 10-07-2023 End: 10-07-2023 ambulatory ALFREDO L FLORO Not Available Start: 09-03-2023 End: 09-03-2023 ambulatory Alfredo L Floro Facility:[facility] Start: 09-03-2023 End: 09-03-2023 ambulatory SHANTELL Duong Work Phone: [facility] Work Phone: Start: 09-03-2023 End: 09-03-2023 Departed Referred SHANTELL Duong Work Phone: [facility] Start: 08-06-2023 End: 08-06-2023 Office consultation new/estab patient 80 min Christine Mckeon MD Work Phone: [facility] Comment on above: Orbital myositis, un specified laterality (Primary Dx); Crohn's disease of small and large intestines with complication; Immunosuppressed status; Chronic pansinusitis; Pulmonary nodules; Psoriasis; Less than 8 weeks gestation of ; Left leg swelling; Psoriasis of scalp Start: 08-06-2023 End: 08-06-2023 Office outpatient visit 15 minutes Teresa Gerber FINANCIAL ADMINISTRATION OFFICER-WASH BOX OPERATOR Work Phone: [facility] [place] Comment on above: Crohn's disease in r emission (Primary Dx) Start: 07-03-2023 End: 07-04-2023 [facility] Start: 06-01-2023 Orders Only Marjorie Bautista RN [facility] Comment on above: Maternal Crohn's dis ease affecting in second trimester ([facility]) (Primary Dx); History of chronic ulcerative colitis Start: 05-29-2023 End: 05-30-2023 [facility] Start: 05-26-2023 End: 05-26-2023 Office outpatient visit 25 minutes Rubia Hernandez NP Work Phone: [facility] Comment on above: Viral URI (Primary D x); 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); Immunodeficiency, unspecified (D84.9); 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); Crohns disease of both small and large intestine with unspecified complications (K50.819); Bilateral impacted cerumen Start: 05-26-2023 Bamboo flowsheet Rubia Hernandez [employer] Work Phone: [facility] Start: 05-26-2023 Bamboo flowsheet Rubia Hernandez [employer] Work Phone: [facility] Start: 04-27-2023 Orders Only Connie Graham [facility] rnal- Medicine at [facility] Comment on above: Maternal Crohn's dis ease affecting in second trimester ([facility]) (Primary Dx) Start: 04-24-2023 End: 04-25-2023 ambulatory [facility] Start: 04-24-2023 End: 04-24-2023 Office outpatient new 45 minutes Ruchi Carmona MD Work Phone: Maternal- Medicine at [facility] Comment on above: Maternal Crohn's dis ease affecting in second trimester ([facility]) (Primary Dx); History of chronic ulcerative colitis; 19 weeks gestation of Start: 04-16-2023 Chart abstracting Scanning Pro vider External Maternal- Medicine at [facility] Start: 04-03-2023 End: 04-03-2023 Clinical Support Encounter [facility] Ibd Nurse [facility] [place] Comment on above: Crohn's disease of b oth small and large intestine with complication (Primary Dx) Start: 04-02-2023 Chart abstracting Scanning Pro vider External Maternal- Medicine at [facility] Start: 03-03-2023 Telephone encounter Javier Agee MD Work Phone: [facility] [place] Comment on above: Case Discussion (Tra nsitioned to adult GI at [facility]) Start: 02-25-2023 End: 02-25-2023 Office consultation new/estab patient 80 min Kye Solis MD Work Phone: [facility] [place] Comment on above: Crohn's disease of b oth small and large intestine with complication (Primary Dx); Orbital myositis, unspecified laterality; 11 weeks gestation of Start: 01-26-2023 End: 01-26-2023 Subsequent hospital visit by physician Enmanuel Osuna MD Work Phone: Hematology[facility] Comment on above: Iron deficiency Start: 01-26-2023 End: 01-26-2023 Office outpatient visit 15 minutes Zhou Lee MD Work Phone: [facility] [place] Comment on above: Sinus Problem (F/u r ecurrent sinusitis) Start: 01-26-2023 End: 01-26-2023 Office outpatient visit 40 minutes Ioana Otero MD Work Phone: [facility] [place] Comment on above: FOLLOW-UP Start: 01-21-2023 Telephone encounter Ioana liz MD Work Phone: [facility] [place] Comment on above: Results Start: 01-09-2023 Telephone encounter Alison Moore RN [facility] [place] Comment on above: Update Start: 12-23-2022 Refill Javier todd MD Work Phone: [facility] [place] Comment on above: Refill Request Start: 12-18-2022 ambulatory Yoana alba [facility] Start: 12-18-2022 Coordination of care obey Head [facility] Comment on above: Primary Insurance: P rior Authorization Coordination for Gastroenterology Prior Authorization Start: 12-17-2022 Telephone encounter Connie Mac RN [facility] [place] Comment on above: Coordination Of Care (Rituximab) Start: 11-21-2022 Telephone encounter Alyssa Pierre resident doctor/Oncology Clinics Comment on above: Change Appointment Start: 09-24-2022 Telephone encounter Zhou peres MD Work Phone: ENT [facility] [place] Comment on above: Schedule Surgery Start: 09-04-2022 Documentation procedure Manjeet Lee MD Work Phone: [facility] [place] Comment on above: Per [facility] R[facility] Letter # 9, [facility] requested clinicals be sent. Clinicals sent Start: 07-16-2022 Documentation procedure Ginna Agee MD Work Phone: GI [facility] [place] Comment on above: Faxed [facility] reapplica tion to [phone]. Scanned into the chart. Start: 05-05-2022 End: 05-05-2022 Postop follow up visit related to original px Zhou Lee MD Work Phone: ENT [facility] Comment on above: Orbital myositis, un specified laterality (Primary Dx); Chronic sinusitis, unspecified location Start: 04-08-2022 Telephone encounter Brielle Teran RN Surgery [facility] 6D Comment on above: Surgical Followup Start: 02-06-2022 Telephone encounter Mitch Banuelos MD Work Phone: Surgery [facility] 6[facility] Comment on above: Pre-certification Start: 11-19-2021 End: 11-19-[address] DOCTOR LIM Facility:H1 Start: 08-13-2021 End: 08-13-2021 ambulatory JESSIE LENZ [facility] Start: 08-13-2021 End: 08-13-2021 Subsequent hospital visit by physician Jessie Lenz MD Work Phone: [address] [facility] Start: 07-09-2021 End: 07-10-2021 ambulatory SHAKIRA ORANTES [facility] Start: 07-09-2021 End: 07-09-2021 Subsequent hospital visit by physician Otilia Sinclair Work Phone: [facility] Start: 06-27-2021 End: 06-28-[address] DOCTOR LIM Facility:[facility]1 Start: 04-30-2021 End: 05-01-[address] DOCTOR LIM Facility:[facility]1 Procedures Date Procedure Procedure Detail Performing Clinician Start: 12-09-2024 ALL CBC WITH AUTO DIFF Generic External Data Provider Start: 11-02-2024 CONTINUOUS CARDIAC MONITORING STRIP Other Other Start: 11-02-2024 CONTINUOUS CARDIAC MONITORING STRIP Other Other Start: 11-02-2024 End: 11-02-2024 Gonadotropin chorionic qualitative Clifford Rodas MD Work Phone: Start: 10-31-2024 Ct abdomen & pelvis w/contrast material Generic External Data Provider Start: 09-06-2024 Colonoscopy flx dx w/collj spec when pfrmd Milind Fitch FINANCIAL ADMINISTRATION OFFICER-WASH BOX OPERATOR Work Phone: Start: 09-06-2024 Choriogonadotropin ( test) [Presence] in Urine Jesse Baumann MD Work Phone: Start: 06-06-2024 C. DIFFICILE PCR Generic External Ty a Provider Start: 06-03-2024 ALL CBC WITH AUTO DIFF Generic External Data Provider Start: 05-17-2024 STATUS COVID-19/FLU Katie Lorenzo cerda [employer] Work Phone: Start: 03-22-2024 Choriogonadotropin ( test) [Presence] in Serum or Plasma Zhou Lee MD Work Phone: Start: 02-29-2024 Ct maxillofacial w/o contrast material Naima Coates CPNP-PC Work Phone: Start: 11-18-2023 Colonoscopy flx dx w/collj spec when pfrmd Milind Fitch FINANCIAL ADMINISTRATION OFFICER-WASH BOX OPERATOR Work Phone: Start: 11-18-2023 Choriogonadotropin ( test) [Presence] in Urine Sharath Lambert MD Work Phone: Start: 08-06-2023 Urnls dip stick/tablet rgnt auto w/o microscopy Chirstine Mckeon MD Work Phone: Start: 05-26-2023 Removal impacted cerumen irrigation/lvg unilat Rubia Hernandez [employer] Work Phone: Start: 03-04-2023 CHLAMYDIA/GC BY PCR ROLDAN SWAB Not In Sy stem Ref Prov Start: 02-25-2023 Antibody screen Scanning External Start: 02-25-2023 HIV 1&2 AB/AG SCREEN (P24 AG) Not In Sys tem Ref Prov Start: 02-25-2023 Iaad ia hepatitis b surface antigen Not In System Ref Prov Start: 11-15-2023 Syphilis test non-treponemal antibody qual Not In System Ref Prov Start: 02-25-2023 TYPE AND SCREEN Not In System Ref Pr ov Start: 07-09-2021 Blood count complete auto&auto difrntl wbc Shakira Orantes MD Work Phone: Plan of Treatment Date Care Activity Detail Author Start: 02-24-2025 End: 02-24-2025 Patient encounter procedure 02/24/2025 2:15 PM EST Office Visit [facility] [address] [phone] Marilou Ortiz MD 2222 [facility] [address] [place], [place] [phone] Return in about 6 months (around 02/19/2025). [facility] Comment on above: Return in about 6 months (around 02/20/20). Start: 02-20-2025 End: 02-20-2025 Patient encounter procedure 02/20/2025 11:00 AM EST Office Visit Division of Colon & Rectal Surgery [address] [phone] Yvette Mar, FINANCIAL ADMINISTRATION OFFICER-WASH BOX OPERATOR [address] [phone] Division of Colon & Rectal Surgery Start: 01-17-2025 End: 01-17-2025 Laparoscopy surg ileostomy/jejunostomy non-tube ILEOSTOMY JEJUNOSTOMY NON-TUBE LAPAROSCOPIC Anorectal stricture Crohn's disease of both small and large intestine with complication 01/17/2025 12:00 PM EDT [facility] Start: 01-17-2025 End: 01-17-2025 Evaluation and management of inpatient [facility]CT [facility] Comment on above: Anorectal stricture ILEOSTOMY JEJUNOSTOM Y NON-TUBE LAPAROSCOPIC Start: 01-05-2025 End: 01-05-2025 Anesthesia consultation 01/05/2025 11:30 AM EDT Pre-Operative Nurse Assessment [facility] [address] [phone] [facility] Start: 01-02-2025 End: 01-02-2025 Clinical Support Encounter 01/02/2025 1:00 PM EDT Clinical Support Encounter [facility] [address] [place] [phone] [facility] Start: 12-26-2024 End: 12-26-2024 Patient encounter procedure 12/26/2024 10:30 AM EDT Office Visit Division of Colon & Rectal Surgery [address] [place] [phone] Yvette Mar FINANCIAL ADMINISTRATION OFFICER-WASH BOX OPERATOR [address] [place], [place] [phone] Division of Colon & Rectal Surgery Start: 12-12-2024 COVID-19 VACCINE ( season) COVID-19 VACCINE ( season) [facility] Start: 12-12-2024 Influenza vaccination [facility] Start: 12-09-2024 End: 12-09-2024 Telemedicine consultation with patient 12/09/2024 10:00 AM EDT Telemedicine [facility] [address] [place], [place] [phone] Milind Fitch FINANCIAL ADMINISTRATION OFFICER-WASH BOX OPERATOR [address] [place] [phone] [facility] [place] Start: 11-11-2024 Influenza vaccination Flu vaccine (#1) [facility] Start: 11-08-2024 End: 11-08-2024 Admission to same day surgery center 11/08/2024 11:15 AM EDT - 11/08/2024 12:45 PM EDT Surgery [facility] [address] [place] [address] Clifford Rodas MD [address] [place], [place] [phone] EXAM UNDER ANESTHESIA ANORECTAL [facility] Comment on above: EXAM UNDER ANESTHESIA ANORECTAL Start: 11-08-2024 End: 11-08-2024 Anrct xm surg req anes general spi/edrl dx EXAM UNDER ANESTHESIA ANORECTAL Crohn's disease of both small and large intestine with complication 11/08/2024 11:15 AM EDT [facility] Start: 11-08-2024 End: 11-08-2024 Sigmoidoscopy flx dx w/collj spec br/wa if pfrmd SIGMOIDOSCOPY DIAGNOSTIC Crohn's disease of both small and large intestine with complication 11/08/2024 11:15 AM EDT [facility] Start: 11-08-2024 Subsequent hospital visit by physician 11/08/2024 9:15 AM EDT Hospital Encounter [facility] [address] [place] [address] Clifford Rodas MD [address] [place] [address] [address] [place] [address] Crohn's disease of both small and large intestine with complication [facility] Comment on above: Crohn's disease of both small and large intestine with complication Start: 10-26-2024 End: 10-26-2024 Anesthesia consultation 10/26/2024 3:00 PM EDT Pre-Operative Nurse Assessment [facility] [address] [place] [address] Clifford Rodas MD [address] [place] [address] [address] [place], [place] [phone] [facility] Start: 10-24-2024 End: 10-17-[address] ENTEROGRAPHY Imaging Routine Crohn's disease of both small and large intestine with complication Expected: 10/24/2024, Expires: 10/17/2025 [facility] Comment on above: Expected: 10/24/2024, Expires: Start: 10-17-2024 End: 10-17-2025 Choriogonadotropin ( test) [Presence] in Urine HCG QUALITATIVE, URINE Fluids Routine Crohn's disease of both small and large intestine with complication Expected: 10/17/2024, Expires: 10/17/2025 [facility] Comment on above: Expected: 10/17/2024, Expires: Start: 10-17-2024 End: 10-17-2024 Patient encounter procedure 10/17/2024 10:30 AM EDT Office Visit Division of Colon & Rectal Surgery [address] [place] [address] Clifford Rodas MD [address] [place] [address] Division of Colon & Rectal Surgery Start: 09-29-2024 End: 09-29-2024 Patient encounter procedure 09/29/2024 1:45 PM EDT Office Visit KALA ALVARADO [address] [address] [place] [phone] Daniela Beckford [address] [place] [address] KALA ALVARADO Start: 09-26-2024 End: 09-26-2025 XR Chest 2 Views [facility] Work Phone: Comment on above: Expected: 09/26/2024, Expires: Start: 09-22-2024 End: 09-22-2024 Patient encounter procedure 09/22/2024 2:30 PM EDT Office Visit [facility] [place] [address] [place] [address] [place], [place] [phone] Milind Fitch, FINANCIAL ADMINISTRATION OFFICER-WASH BOX OPERATOR [address] [place] [phone] [facility] [place] Start: 09-22-2024 End: 09-22-2025 METHYLMALONIC ACID [facility] Comment on above: Expected: 09/22/2024, Expires: Start: 09-22-2024 End: 09-22-2025 VITAMIN D (25-HYDROXY,TOTAL) [facility] Comment on above: Expected: 09/22/2024, Expires: Start: 09-22-2024 End: 09-22-2025 ZINC, SERUM [facility] Comment on above: Expected: 09/22/2024, Expires: Start: 08-01-2024 End: 08-01-2024 Patient encounter procedure 08/01/2024 6:00 PM EDT Office Visit [facility] [address] [place] [phone] Katie Aceves NP [address] [place], [place] [phone] Arrived [facility] Comment on above: Arrived Start: 07-20-2024 End: 07-20-2025 CT Head WO contrast CT head wo IV contrast Imaging Routine Nonintractable episodic headache, unspecified headache type Expected: 07/20/2024, Expires: 07/20/2025 [facility] Work Phone: Comment on above: Expected: 07/20/2024, Expires: Start: 07-15-2024 End: 07-15-2024 Patient encounter procedure 07/15/2024 3:30 PM EDT Office Visit [facility] [address] [place] [phone] Chey Aragon MD [address] [place], [place] [phone] Arrived [facility] Comment on above: Arrived Start: 06-22-2024 End: 06-22-2024 Patient encounter procedure 06/22/2024 12:30 PM EDT Appointment ENT Clinic [address] [phone] Zhou Lee MD Otolaryngology Section [address] [place] [address] Discharge Disposition: Home [facility] [place] Start: 06-01-2024 End: 06-01-2024 US MFM with or without consult US MFM with or without consult Imaging Routine Maternal Crohn's disease affecting in second trimester ([facility]) History of chronic ulcerative colitis Expected: 06/01/2024 (Approximate), Expires: 06/01/2024 [facility] Work Phone: Comment on above: Expected: 06/01/2024 (Approximate), Expi res: 06/01/2024 Start: 06-01-2024 End: 06-01-2024 Patient encounter procedure 06/01/2024 10:30 AM EST Office Visit [facility] [address] [place] [phone] Serene Alfred NP [address] [place] [address] [facility] Start: 05-17-2024 End: 05-17-2024 Patient encounter procedure 05/17/2024 3:15 PM EST Office Visit [facility] [address] [place] [phone] Katie Aceves [employer] [address] [place] [address] Arrived [facility] Comment on above: Arrived Start: 05-10-2024 End: 05-10-2024 Admission to same day surgery center 05/10/2024 1:35 PM EST - 05/10/2024 3:25 PM EST Surgery [address] [phone] Zhou Lee MD Otolaryngology Section [address] [place] [address] ENDOSCOPY, BILATERAL NOSE, DIAGNOSTIC [facility] Comment on above: ENDOSCOPY, BILATERAL NOSE, DIAGNOSTIC Start: 05-10-2024 End: 01-28-2025 Control nasal hemorrhage anterior simple SIMPLE CONTROL OF EPISTAXIS Chronic maxillary sinusitis Epistaxis 05/10/2024 1:35 PM [facility] Start: 05-10-2024 End: 05-10-2024 Myringoplasty MYRINGOPLASTY, USING PAPER PATCH IF INDICATED Chronic maxillary sinusitis Epistaxis 05/10/2024 1:35 PM [facility] Start: 05-10-2024 End: 05-10-2024 Nasal endoscopy diagnostic uni/bi spx ENDOSCOPY, NOSE, DIAGNOSTIC Chronic maxillary sinusitis Epistaxis 05/10/2024 1:35 PM [facility] Start: 05-10-2024 End: 05-10-2024 Nsl/sinus ndsc max antrost w/rmvl tiss max sinus MAXILLARY ANTROSTOMY, WITH TISSUE REMOVAL Chronic maxillary sinusitis Epistaxis 05/10/2024 1:35 PM [facility] Start: 05-10-2024 End: 05-10-2024 Otolaryngologic exam under general anesthesia EXAM UNDER ANESTHESIA, EAR, BILATERAL Chronic maxillary sinusitis Epistaxis 05/10/2024 1:35 PM [facility] Start: 05-10-2024 Subsequent hospital visit by physician 05/10/2024 1:35 PM EST Hospital Encounter [address] [phone] Zhou Lee MD Otolaryngology Section [address] [place] [address] [facility] Start: 05-04-2024 End: 05-04-2024 Patient encounter procedure 05/04/2024 11:30 AM EST Appointment ENT Clinic [address] [phone] Zhou Lee MD Otolaryngology Section [address] [place] [address] Discharge Disposition: Home [facility] [place] Start: 04-27-2024 End: 04-27-2024 US MFM with or without consult US MFM with or without consult Imaging Routine Maternal Crohn's disease affecting in second trimester ([facility]) Expected: 04/27/2024 (Approximate), Expires: 04/27/2024 [facility] Work Phone: Comment on above: Expected: 04/27/2024 (Approximate), Expi res: 04/27/2024 Start: 04-24-2024 Tobacco Screening Tobacco Screening [facility] Start: 03-22-2024 End: 03-22-2024 Admission to same day surgery center 03/22/2024 2:30 PM EST - 03/22/2024 4:00 PM EST Surgery [address] [phone] Zhou Lee MD Otolaryngology Section [address] [place] [address] ENDOSCOPY, BILATERAL NOSE, DIAGNOSTIC [facility] Comment on above: ENDOSCOPY, BILATERAL NOSE, DIAGNOSTIC Start: 03-22-2024 Subsequent hospital visit by physician 03/22/2024 2:30 PM EST Hospital Encounter [place] [phone] Zhou Lee MD Otolaryngology Section [address] [place] [address] [facility] Start: 03-22-2024 End: 03-22-2024 Control nasal hemorrhage anterior simple [facility] Start: 03-22-2024 End: 03-22-2024 Myringoplasty [facility] Start: 03-22-2024 End: 03-22-2024 Nasal endoscopy diagnostic uni/bi spx [facility] Start: 03-22-2024 End: 03-22-2024 Nsl/sinus ndsc max antrost w/rmvl tiss max sinus [facility] Start: 03-22-2024 End: 03-22-2024 Otolaryngologic exam under general anesthesia [facility] Start: 02-16-2024 End: 02-15-2025 CT Sinuses WO contrast CT Sinuses Stealth without Contrast Imaging Routine Chronic sinusitis, unspecified location Expected: 02/16/2024 (Approximate), Expires: 02/15/2025 [facility] Work Phone: Comment on above: Expected: 02/16/2024 (Approximate), Expi res: 02/15/2025 Start: 02-10-2024 End: 02-10-2024 Patient encounter procedure 02/10/2024 10:30 AM EDT Office Visit [facility] [address] [place] [phone] Serene Alfred NP [address] [place] [address] Arrived [facility] Comment on above: Arrived Start: 01-27-2024 End: 01-26-2025 25-hydroxyvitamin D3 [Mass/volume] in Serum or Plasma Vitamin D 25 hydroxy Lab Routine Vitamin D deficiency Expected: 01/27/2024 (Approximate), Expires: 01/26/2025 [facility] Comment on above: Expected: 01/27/2024 (Approximate), Expi res: 01/26/2025 Start: 01-27-2024 End: 01-26-2025 CBC W Auto Differential panel - Blood CBC and differential Lab Routine Encounter for wellness examination in adult Microcytic anemia Expected: 01/27/2024 (Approximate), Expires: 01/26/2025 [facility] Comment on above: Expected: 01/27/2024 (Approximate), Expi res: 01/26/2025 Start: 01-27-2024 End: 01-26-2025 Cobalamin (Vitamin B12) [Mass/volume] in Serum or Plasma Vitamin B12 Lab Routine Other fatigue Expected: 01/27/2024 (Approximate), Expires: 01/26/2025 [facility] Comment on above: Expected: 01/27/2024 (Approximate), Expi res: 01/26/2025 Start: 01-27-2024 End: 01-26-2025 Comprehensive metabolic 2000 panel - Serum or Plasma Comprehensive metabolic panel Lab Routine Encounter for wellness examination in adult Gastroesophageal reflux disease without esophagitis Expected: 01/27/2024 (Approximate), Expires: 01/26/2025 [facility] Work Phone: Comment on above: Expected: 01/27/2024 (Approximate), Expi res: 01/26/2025 Start: 01-27-2024 IBD Iron Studies IBD Iron Studies [facility] Start: 01-27-2024 End: 01-26-2025 Iron + transferrin + TIBC Iron + transferrin + TIBC Lab Routine Microcytic anemia Expected: 01/27/2024 (Approximate), Expires: 01/26/2025 [facility] Comment on above: Expected: 01/27/2024 (Approximate), Expi res: 01/26/2025 Start: 01-27-2024 End: 01-26-2025 TSH W/REFLEX TO FT4 TSH W/REFLEX TO FT4 Lab Routine Encounter for wellness examination in adult Other fatigue Expected: 01/27/2024 (Approximate), Expires: 01/26/2025 [facility] Comment on above: Expected: 01/27/2024 (Approximate), Expi res: 01/26/2025 Start: 01-27-2024 End: 01-27-2024 Patient encounter procedure 01/27/2024 10:00 AM EDT Office Visit [facility] [address] [place] [phone] Serene Alfred NP [address] [place], [place] [phone] Arrived [facility] Comment on above: Arrived Start: 12-13-2023 COVID-19 VACCINE ( season) COVID-19 VACCINE ( season) [facility] Start: 12-13-2023 Influenza vaccination [facility] Start: 10-22-2023 End: 10-22-2023 Telemedicine consultation with patient 10/22/2023 9:30 AM EDT Telemedicine [facility] [place] [address] [place] [address] [place] [address] Milind Fitch, FINANCIAL ADMINISTRATION OFFICER-WASH BOX OPERATOR [address] [place] [address] [facility] [place] Start: 10-21-2023 DTaP,Tdap and Td Vaccines (7 - Td or Tdap) DTaP,Tdap and Td Vaccines (7 - Td or Tdap) [facility] Start: 10-21-2023 DTaP/Tdap/Td vaccine (7 - Td or Tdap) DTaP/Tdap/Td vaccine (7 - Td or Tdap) [facility] Start: 10-21-2023 DTaP/Tdap/Td VACCINES (7 - Td or Tdap) DTaP/Tdap/Td VACCINES (7 - Td or Tdap) [facility] Start: 10-21-2023 Tetanus vaccination TETANUS [facility] Start: 08-06-2023 End: 08-05-2024 CALPROTECTIN, STOOL CALPROTECTIN, STOOL Fluids Routine Crohn's disease in remission Expected: 08/06/2023, Expires: 08/05/2024 [facility] Comment on above: Expected: 08/06/2023, Expires: 5 Start: 08-06-2023 End: 08-05-2024 US.doppler Lower extremity vein - left VASC DUPLEX VENOUS EXTREMITY LOWER LEFT Imaging STAT Left leg swelling Expected: 08/06/2023, Expires: 08/05/2024 [facility] Comment on above: Expected: 08/06/2023, Expires: 5 Start: 07-03-2023 End: 07-03-2023 Patient encounter procedure 07/03/2023 3:00 PM EDT Appointment [facility] [address] [place] [phone] [facility] Start: 06-01-2023 End: 06-01-2023 Patient encounter procedure 06/01/2023 6:30 PM EST Routine [facility] [address] [place] [address] Alfredo Duong, CNM [address] [place] [address] [facility] Start: 05-29-2023 End: 05-29-2023 Patient encounter procedure 05/29/2023 2:45 PM EST Appointment [facility] [address] [place] [address] [facility] Start: 05-26-2023 End: 05-26-2023 Patient encounter procedure 05/26/2023 7:30 PM EST Office Visit [facility] [address] [place] [phone] Rubia Hernandez [employer] [address] [place], [place] [phone] Arrived [facility] Comment on above: Arrived Start: 04-29-2023 End: 04-29-2023 Patient encounter procedure 04/29/2023 10:00 AM EST Office Visit [facility] [address] [place], [place] [phone] Teresa Gerber, FINANCIAL ADMINISTRATION OFFICER-WASH BOX OPERATOR [address] [place] [address] Inflammatory Bowel Disease [facility] Start: 04-24-2023 End: 04-24-2023 Patient encounter procedure [facility] Start: 04-03-2023 End: 04-03-2023 Clinical Support Encounter 04/03/2023 11:00 AM EST Clinical Support Encounter Inflammatory Bowel Disease [address] [place] [address] Inflammatory Bowel Disease [facility] Start: 03-20-2023 IBD Iron Studies IBD Iron Studies [facility] Start: 02-25-2023 End: 02-26-2024 CALPROTECTIN, STOOL CALPROTECTIN, STOOL Fluids Routine Crohn's disease of both small and large intestine with complication Expected: 02/25/2023, Expires: 02/26/2024 [facility] Comment on above: Expected: 02/25/2023, Expires: Start: 02-25-2023 End: 02-26-2024 HEP A AB, TOTAL (IGG+IGM) HEP A AB, TOTAL (IGG+IGM) Lab Routine Crohn's disease of both small and large intestine with complication Expected: 02/25/2023, Expires: 02/26/2024 [facility] Comment on above: Expected: 02/25/2023, Expires: 4 Start: 02-25-2023 End: 02-26-2024 M TUBERCULOSIS BY QUANTIFERON, BLD [facility] Comment on above: Expected: 02/25/2023, Expires: Start: 02-25-2023 End: 02-26-2024 THIOPURINE METHYL-TRANSFERASE [facility] Comment on above: Expected: 02/25/2023, Expires: Start: 02-25-2023 End: 02-26-2024 ZINC, SERUM [facility] Comment on above: Expected: 02/25/2023, Expires: 4 Start: 02-18-2023 End: 02-18-2023 Patient encounter procedure [facility] [place] Start: 01-26-2023 End: 01-27-2024 Ferritin [Mass/volume] in Serum or Plasma [facility] Comment on above: One Time for 1 Occurrences starting 01/11 until 01/26/2023 Expected: 01/26/2023 (Approximate), Expires: 01/27/2024 Start: 01-26-2023 End: 01-26-2023 Patient encounter procedure [facility] [place] Start: 01-20-2023 End: 01-20-2023 Patient encounter procedure 01/20/2023 1:00 PM EDT Appointment [facility]ematology[facility]Oncology Clinics [address] [place] [address] [address] [place] [address] Martha Hatfield MD [address] [place] [address] [facility] Start: 01-14-2023 IBD TDM Annual Screening Ustekinumab IBD TDM Annual Screening Ustekinumab [facility] Start: 01-05-2023 End: 01-05-2023 Admission to same day surgery center Perioperative Services Comment on above: ETHMOID SINUS SURGERY bilateral Start: 01-05-2023 End: 01-05-2023 Nasal/sinus ndsc w/partial ethmoidectomy [facility] [place] Start: 01-05-2023 End: 01-05-2023 Nsl/sinus ndsc max antrost w/rmvl tiss max sinus [facility] [place] Start: 01-05-2023 End: 01-05-2023 Strtctc cptr asstd px cranial intradural [facility] [place] Start: 01-05-2023 Subsequent hospital visit by physician Perioperative Services Start: 01-05-2023 End: 01-05-2023 Patient encounter procedure 01/05/2023 10:[address] [id number] Discharge Disposition: [place] [facility] [place] Start: 12-24-2022 IBD on Biologics/Immunomodulators Quantiferon IBD on Biologics/Immunomodulato rs Quantiferon [facility] Start: 12-12-2022 COVID-19 Vaccine ( season) COVID-19 Vaccine ( season) [facility] Start: 12-12-2022 Influenza vaccination [facility] Start: 2022 Screening for malignant neoplasm of cervix [facility] Start: 11-02-2022 IBD 25-OH Vitamin D IBD 25-OH Vitamin D [facility] Start: 09-18-2022 IBD 25-OH Vitamin D IBD 25-OH Vitamin D [facility] Start: 09-03-2022 IBD Annual Visit IBD Annual Visit [facility] Start: 07-25-2022 End: 07-25-2022 Patient encounter procedure 07/25/2022 Appointment Rheumatology [facility] Start: 07-25-2022 End: 07-25-2022 Patient encounter procedure 07/25/2022 Appointment Gastroenterology Javier Agee MD [address] [place] [address] [facility] [place] Start: 06-09-2022 IBD Calprotectin IBD Calprotectin [facility] Start: 05-24-2022 IBD Surveillence Colonscopy 8 years after diagnosis IBD Surveillence Colonscopy 8 years after diagnosis [facility] Start: 05-06-2022 IBD TDM Post Induction Ustekinumab IBD TDM Post Induction Ustekinumab [facility] Start: 05-05-2022 End: 05-05-2022 Patient encounter procedure 05/05/2022 Appointment Ent-Otolaryngology Zhou Lee MD Otolaryngology Section [address] [place] [address] [facility] Start: 12-12-2021 Influenza vaccination INFLUENZA VACCINE (#1) [facility] Start: 04-18-2021 COVID-19 Vaccine (2 - Misael risk 3-dose series) COVID-19 Vaccine (2 - Misael risk 3-dose series) [facility] Start: 04-18-2021 COVID-19 Vaccine (2 - Misael risk series) COVID-19 Vaccine (2 - Misael risk series) [facility] Start: 12-12-2020 Influenza vaccination Flu vaccine (#1) [facility] Start: 2020 DTaP,Tdap and Td Vaccines (1 - Tdap) DTaP,Tdap and Td Vaccines (1 - Tdap) [facility] Start: 2020 DTaP/Tdap/Td vaccine (1 - Tdap) DTaP/Tdap/Td vaccine (1 - Tdap) [facility] Start: 2020 Pneumococcal 0-49 years Vaccine (1 of 2 - PCV) Pneumococcal 0-49 years Vaccine (1 of 2 - PCV) [facility]: 2020 Pneumococcal vaccination Pneumococcal Vaccine (1 of 2 - PCV) [facility] Start: 2020 PNEUMOCOCCAL VACCINE SERIES (1 of 2 - PCV) PNEUMOCOCCAL VACCINE SERIES (1 of 2 - PCV) [facility] Start: 2020 Shingles vaccine (1 of 2) Shingles vaccine (1 of 2) [facility] Start: 2020 Zoster vaccine hzv live for subcutaneous use ZOSTER (SHINGLES) VACCINE (1 of 2) [facility] Start: 11-04-2019 Adult BMI Screening Adult BMI Screening [facility] Start: 11-04-2019 Hepatitis C screening Hepatitis C screen [facility] Start: 12-18-2017 Varicella vaccine (2 of 2 - 2-dose childhood series) Varicella vaccine (2 of 2 - 2-dose childhood series) [facility] Start: 12-18-2017 VARICELLA VACCINES (2 of 2 - 2-dose childhood series) VARICELLA VACCINES (2 of 2 - 2-dose childhood series) [facility] Start: 2017 MENB (1 of 2 - Patient Seeks Protection) MENB (1 of 2 - Patient Seeks Protection) [facility] Start: 2017 Meningococcal B Vaccine (1 of 2 - Patient Seeks Protection) Meningococcal B Vaccine (1 of 2 - Patient Seeks Protection) [facility] Start: 2017 Meningococcal B Vaccine (1 of 2 - Standard) Meningococcal B Vaccine (1 of 2 - Standard) [facility] Start: 2017 Screening for Chlamydia trachomatis [facility] Start: 2016 HIV screening [facility] Start: 2016 HPV Vaccine (1 - 3-dose series) HPV Vaccine (1 - 3-dose series) [facility] Start: 2016 Vaccination for human papillomavirus HPV VACCINE ADOL (1 - 3-dose series) [facility] Start: 11-04-2015 Gastroenterology Transition Assessment Gastroenterology Transition Assessment [facility] Start: 11-04-2015 Hemonc Transition Assessment Hemonc Transition Assessment [facility] Start: 11-04-2015 Rheumatology Transition Assessment Rheumatology Transition Assessment [facility] Start: 2013 Depression Screen Depression Screen [facility] Start: 2013 Depression Screening Depression Screening [facility] Start: 2013 Tobacco Screening Tobacco Screening [facility] Start: 2012 HPV vaccine (1 - 2-dose series) HPV vaccine (1 - 2-dose series) [facility] Start: 2012 HPV Vaccine (1 - Risk 3-dose series) HPV Vaccine (1 - Risk 3-dose series) [facility] Start: 2012 Vaccination for human papillomavirus HPV VACCINE ADOL (1 - 2-dose series) [facility] Start: 11-04-2011 MENB (1 of 2 - Risk Bexsero 2-dose series) MENB (1 of 2 - Risk Bexsero 2-dose series) [facility] Start: 2010 HPV Vaccine (1 - Risk 3-dose series) HPV Vaccine (1 - Risk 3-dose series) [facility] Start: 2010 HPV VACCINES (1 - 2-dose series) HPV VACCINES (1 - 2-dose series) [facility] Start: 11-04-2007 Pneumococcal 0-64 years Vaccine (1 - PCV) Pneumococcal 0-64 years Vaccine (1 - PCV) [facility] Start: 11-04-2007 Pneumococcal vaccination [facility] Start: 11-04-2007 PNEUMOCOCCAL VACCINE SERIES (1 - PCV) PNEUMOCOCCAL VACCINE SERIES (1 - PCV) [facility] Start: 11-04-2007 PNEUMOCOCCAL VACCINE SERIES (1 of 2 - PCV) PNEUMOCOCCAL VACCINE SERIES (1 of 2 - PCV) [facility] Start: 2006 COVID-19 Vaccine (1) COVID-19 Vaccine (1) [facility] Start: 2002 Dental Hygiene (Due every 6 months) Dental Hygiene (Due every 6 months) [facility] Start: 2002 Varicella vaccine (1 of 2 - 2-dose childhood series) Varicella vaccine (1 of 2 - 2-dose childhood series) [facility] Start: 2001 Dental Oral Exam Dental Oral Exam [facility] Start: 2001 Hepatitis C screening Hepatitis C screen [facility] Start: 2001 Screening for Chlamydia trachomatis GONORRHEA SCREEN [facility] End: 07-09-2021 Anti-Thyroglobulin Antibody [facility] Work Phone: Comment on above: Once for 1 Occurrences starting 07/10/19 until 07/09/2021 End: 01-26-2023 CBC W/AUTOMATED DIFF, REFLEX TO MANUAL CBC W/AUTOMATED DIFF, REFLEX TO MANUAL Lab Routine Iron deficiency One Time for 1 Occurrences starting 01/26/2023 until 01/26/2023 [facility] Work Phone: Comment on above: One Time for 1 Occurrences starting 01/11 until 01/26/2023 End: 10-26-2024 Ct abdomen & pelvis w/o contrst 1/> [facility] Comment on above: 1 Occurrences starting 10/26/2024 until 10/26/2024 Excision excessive s kin & subq tissue other area EXCISION, SKIN AND SUBCUTANEOUS TISSUE Sebaceous cyst [facility] [place] End: 07-09-2021 [facility]ixation serum profile [facility] Phone: Comment on above: Once for 1 Occurrences starting 07/10/19 until 07/09/2021 End: 07-09-2021 Immunoglobulin G Subclasses [employer] Phone: Comment on above: Once for 1 Occurrences starting 07/10/19 until 07/09/2021 End: 07-09-2021 Lymphocyte [facility]set [facility] Phone: Comment on above: Once for 1 Occurrences starting 07/10/19 until 07/09/2021 Nasal/sinus ndsc w/p artial ethmoidectomy ENDOSCOPY, NOSE, WITH ETHMOIDECTOMY Chronic sinusitis, unspecified location [facility] [place] Nsl/sinus ndsc max a ntrost w/rmvl tiss max sinus MAXILLARY ANTROSTOMY, WITH TISSUE REMOVAL Chronic sinusitis, unspecified location [facility] [place] End: 03-22-2024 PULSE OXIMETER - CONTINUOUS PULSE OXIMETER - CONTINUOUS Respiratory Care Routine Continuous until discontinued starting 03/22/2024 [facility] Work Phone: Comment on above: Continuous until discontinued starting 1 05/23/2023 End: 07-09-2021 Strep Pneumoniae Antibody Serotypes [facility] Work Phone: Comment on above: Once for 1 Occurrences starting 07/10/19 until 07/09/2021 SURG PATH REQUEST [facility] Comment on above: Release Upon Ordering for 1 Occurrences starting 11/18/2023, 1 completed SURG PATH REQUEST [facility] Work Phone: Comment on above: Release Upon Ordering for 1 Occurrences starting 11/02/2024, 1 completed SURG PATH REQUEST (M ust Attach Requisition) [facility] Comment on above: Release Upon Ordering for 1 Occurrences starting 09/06/2024, 1 completed Immunizations Immunization Date Immunization Notes Care Provider Josi perez 08-11-2022 hepatitis B vaccine, adult dosage Rubia Kampfer [employer] Work Phone: [facility] 06-26-2022 hepatitis B vaccine, adult dosage Rubia Kampfer [employer] Work Phone: [facility] 05-13-2022 tuberculin skin test ; purified protein derivative solution, intradermal Rubia Kampfer [employer] Work Phone: [facility] 04-30-2022 tuberculin skin test ; purified protein derivative solution, intradermal Rubia Kampfer [employer] Work Phone: [facility] 02-19-2022 influenza, injectabl e, quadrivalent, preservative free Rubia Kampfer [employer] Work Phone: [facility] 02-19-2022 influenza virus vacc ine, unspecified formulation Zhou Lee MD Work Phone: [facility] 02-15-2021 influenza, injectabl e, quadrivalent, preservative free Brielle Teran RN [facility] 02-15-2021 influenza, seasonal, injectable, preservative free Brielle Teran RN [facility] 02-15-2021 influenza virus vacc ine, unspecified formulation Brielle Teran RN [facility] 02-29-2020 influenza, injectabl e, quadrivalent, preservative free Rubia Kampfer [employer] Work Phone: [facility] 02-21-2020 influenza, injectabl e, quadrivalent, preservative free Brielle Teran RN [facility] 04-29-2019 influenza, injectabl e, quadrivalent, preservative free Brielle Teran RN [facility] 10-25-2018 meningococcal oligosaccharide (groups A, C, Y and W-135) diphtheria toxoid conjugate vaccine (MCV4O) Brielle Teran RN [facility] 01-08-2018 influenza, injectabl e, quadrivalent, preservative free Brielle Teran RN [facility] 01-08-2018 influenza, seasonal, injectable, preservative free Rubia Hernandez [employer] Work Phone: [facility] 11-20-2017 influenza virus vacc ine, live, attenuated, for intranasal use Brielle Teran RN [facility] 11-20-2017 influenza, live, intranasal, quadrivalent Rubia Hernandez [employer] Work Phone: [facility] 02-04-2016 influenza, seasonal, injectable, preservative free Brielle Teran RN [facility] 06-11-2014 tuberculin skin test ; purified protein derivative solution, intradermal Otilia Sinclair Work Phone: [facility] 03-26-2014 influenza, seasonal, injectable, preservative free Brielle Teran RN [facility] 03-17-2014 influenza, seasonal, injectable, preservative free Rubia Hernandez [employer] Work Phone: [facility] 10-20-2013 meningococcal polysaccharide (groups A, C, Y and W-135) diphtheria toxoid conjugate vaccine (MCV4P) Brielle Teran RN [facility] 10-20-2013 tetanus toxoid, redu rubina diphtheria toxoid, and acellular pertussis vaccine, adsorbed Brielle Teran RN [facility] 05-05-2013 influenza, injectabl e, quadrivalent, preservative free Brielle Teran RN [facility] 12-08-2006 diphtheria, tetanus toxoids and acellular pertussis vaccine Brielle Teran RN [facility] 12-08-2006 measles, mumps and rubella virus vaccine Brielle Teran RN [facility] 12-08-2006 poliovirus vaccine, inactivated Brielle Teran RN [facility] 01-17-2005 influenza, seasonal, injectable Brielle Teran RN [facility] 03-14-2003 influenza virus vacc ine, whole virus Rubia Hernandez [employer] Work Phone: [facility] 03-14-2003 influenza, seasonal, injectable, preservative free Brielle Teran RN [facility] 03-14-2003 pneumococcal conjuga te vaccine, 7 valent Brielle Teran RN [facility] 02-10-2003 diphtheria, tetanus toxoids and pertussis vaccine Brielle Teran RN [facility] 02-10-2003 DTP Brielle Teran RN [facility] 02-10-2003 haemophilus influenz ae type b vaccine, PRP-T conjugate Brielle Teran RN [facility] 02-10-2003 influenza virus vacc ine, whole virus Rubia Hernandez [employer] Work Phone: [facility] 02-10-2003 influenza, seasonal, injectable, preservative free Brielle Teran RN [facility] 02-10-2003 pneumococcal conjuga te vaccine, 7 valent Brielle Teran RN [facility] 11-07-2002 measles, mumps and rubella virus vaccine Brielle Teran RN [facility] 11-07-2002 varicella virus vaccine Brielle gilbert RN [facility] 11-07-2002 zoster vaccine, unspecified formulation Kye Solis MD Work Phone: [facility] 06-01-2002 diphtheria, tetanus toxoids and acellular pertussis vaccine Brielle Teran RN [facility] 06-01-2002 haemophilus influenz ae type b conjugate and Hepatitis B vaccine Brielle Teran RN [facility] 06-01-2002 pneumococcal conjuga te vaccine, 7 valent Brielle Teran RN [facility] 06-01-2002 poliovirus vaccine, inactivated Brielle Teran RN [facility] 03-08-2002 diphtheria, tetanus toxoids and acellular pertussis vaccine Brielle Teran RN [facility] 03-08-2002 haemophilus influenz ae type b vaccine, PRP-T conjugate Brielle Teran RN [facility] 03-08-2002 pneumococcal conjuga te vaccine, 7 valent Brielle Teran RN [facility] 03-08-2002 poliovirus vaccine, inactivated Brielle Teran RN [facility] 01-04-2002 diphtheria, tetanus toxoids and acellular pertussis vaccine Brielle Teran RN [facility] 01-04-2002 haemophilus influenz ae type b vaccine, PRP-T conjugate Brielle Teran RN [facility] 01-04-2002 hepatitis B vaccine, pediatric or pediatric/adolescent dosage Brielle Teran RN [facility] 01-04-2002 poliovirus vaccine, inactivated Brielle Teran RN [facility] 2001 hepatitis B vaccine, pediatric or pediatric/adolescent dosage Brielle Teran RN [facility] Payers Date Payer Category Payer Self-pay [id number] 2023 Medicaid (Managed Care) [employer] [id number] 2023 Private Health Insurance [employer] [id number] 2023- [address] [place] [address] [id number]. [id number] 2023 Medicaid [id number]. [id number] 2021 [facility] er [id number] 2021 Managed Care (unspecified) [facility] [id number] 2013 Unknown [id number]. 1.13.161.2. 7.3.620047.315 2001 Unknown [id number] 2.16.840.1.400435.3.579.2. 175 2001 Unknown [id number] 2.16.840.1.197116.3.579.2. 175 2001 Unknown [id number] 2.16.840.1.510128.3.579.2. 593 2001 Unknown [id number] 2.16.840.1.544719.3.579.2. 593 2001 Unknown [id number] 2.16.840.1.830991.3.579.2. 593 2001 Unknown [id number] 2.16.840.1.612913.3.579.2. 1286 2001 Unknown [id number] 2.16.840.1.550255.3.579.2. 1286 2001 Unknown [id number] 2.16.840.1.345582.3.579.2. 1286 2001 Unknown [id number] 2.16.840.1.433482.3.579.2. 1286 2001 Unknown [id number] 2.16.840.1.631283.3.579.2. 718 2001 Unknown [id number] 2.16.840.1.427606.3.579.2. 430 2001 Unknown [id number] 2.16.840.1.146506.3.579.2. 430 2001 Unknown [id number] 2.16840.1.369090.3.579.2. 430 2001 Unknown [id number] 2.16840.1.244152.3.579.2. 430 2001 Unknown [id number] 2.16.840.1.498693.3.579.2. 430 2001 Unknown [id number] 2.16.840.1.127397.3.579.2. 1259 2001 Unknown [id number] 2.16.840.1.133826.3.579.2. 1259 2001 Unknown [id number] 2.16.840.1.267409.3.579.2. 1258 2001 Unknown [id number] 2.16.840.1.675339.3.579.2. 1259 2001 Unknown [id number] 2.16.840.1.160248.3.579.2. 1258 2001 Unknown [id number] 2.16.840.1.309984.3.579.2. 1259 2001 Unknown [id number] 2.16.840.1.367452.3.579.2. 1259 2001 Unknown [id number] 2.16.840.1.338465.3.579.2. 1259 2001 Unknown [id number] 2.16.840.1.727672.3.579.2. 1259 2001 Unknown [id number] 2.16.840.1.887699.3.579.2. 176 2001 Unknown [id number] 2.16840.1.999464.3.579.2. 594 2001 Unknown [id number] 2.840.1.586532.3.579.2. 594 2001 Unknown [id number] 2.840.1.651482.3.579.2. 594 2001 Unknown [id number] 2.840.1.752724.3.579.2. 594 2001 Unknown [id number] 2.840.1.965417.3.579.2. 594 2001 Unknown [id number] 2.840.1.495823.3.579.2. 594 2001 Unknown [id number] 2.840.1.330133.3.579.2. 594 2001 Unknown [id number] 2.840.1.951201.3.579.2. 594 2001 Unknown [id number] 2.840.1.739918.3.579.2. 594 2001 Unknown [id number] 2.840.1.757098.3.579.2. 594 2001 Unknown [id number] 2.16840.1.206804.3.579.2. 594 2001 Unknown [id number] 2.16840.1.635129.3.579.2. 594 2001 Unknown [id number] 2.840.1.713243.3.579.2. 594 1960 Unknown [id number] 1.2.840.084969.1.13.239.2. 7.3.169703.315 1959 Unknown [id number] 1.2.840.950845.1.13.239.2. 7.3.656929.315 Unknown [id number] 2.16.840.1.806871.3.579.2. 531 Social History Date Type Detail Facility Start: 09-11-2011 End: 02-25-2023 Tobacco smoking status WAIS Never smoked tobacco [employer] Phone: Start: 07-26-2014 End: 08-19-2024 Alcohol intake Current non-drinker of alcohol (finding) [employer] Phone: Start: 2001 Sex Assigned At Not on file M [facility] Phone: Start: 02-28-2022 End: 02-25-2023 Tobacco use and exposure Smokeless tobacco non-user [facility] Start: 03-21-2022 End: 12-26-2024 Alcohol intake Ex-drinker (finding) [facility] Start: 03-21-2022 End: 12-26-2024 Alcohol intake [facility] Start: 08-26-2021 History SDOH Financial [address] [facility] Start: 08-26-2021 History SDOH Food Worry [address] [facility] Start: 08-26-2021 History SDOH Transport Med [address] [facility] Start: 05-17-2016 End: 12-26-2024 Tobacco use panel [facility] How hard is it for you to pay for the very basics like food, housing, medical care, and heating Not hard at all [facility] (I/We) worried whether (my/our) food would run out before (I/we) got money to buy more. Never true [facility] In the past 12 months, was there a time when you were not able to pay the mortgage or rent on time? No [facility] Start: 12-22-2022 [facility] Are you now , , , [...] Start: 2001 Sex Assigned At Female F [facility] Start: 05-23-2012 End: 01-16-2023 Sex Female (finding) [facility] Start: 05-26-2024 Gender identity Identifies as female gender (finding) [facility] Start: 05-26-2024 Sexual orientation Heterosexual (fin ding) [facility] NEGATED: Highlighted rowStart: SAMMIEF History of tobacco use Passive smoker [facility] Medical Equipment Procedure Code Equipment Code Equipment Origin al Text Equipment Identifier Dates Surgiflo [id number] Start: 07-23-2015 Comment on above: Description: Nares Staplr Ss Ta 90-3.5 - [id number] Start: 03-21-2016 Sealant Floseal 5ml - [id number] Start: 06-11-2018 Comment on above: Description: Sinus Staplr Mlti Kristen 80-3.8 - [id number] Start: 03-21-2016 Rld Mlti Kristen 80 3.8 - [id number] Start: 03-21-2016 Rld Mlti Rkisten 80 3.8 - [id number] Start: 03-21-2016 Graft [employer] .6x9cm - [id number] FDA Start: 03-22-2024 Comment on above: Description: Site: L eft Ear Spng Surgifoam A gs Sz 12-7 - [id number] Start: 03-22-2024 Goals Date Patient Goal Desired Activity /State Personal health goal Clinical Notes 08-06-2021 to 12-26-2024 Yvette Mar, SHANTELL-ALEXANDR - 12/26/2024 11:15 AM Nicholas Hutchins RN - 12/26/2024 11:15 AM Nicholas Hutchins RN - 12/26/2024 11:15 AM EDTPatient InstructionsDischarge Instructions Note Date & Type Note Facility 12-26-2024 History of Present illness Narrative COLORECTAL SURGERY CRS Established Visit Patient: Kings Hatfield Date of Encounter: 12/26/24 Chief Complaint/Reason for today's visit: pre-operative discussion Colorectal Diagnosis: Crohn's disease Colorectal Surgery History (if applicable): Date of Surgery: 11/02/24 Surgery: EUA, flexible proctosigmoidoscopy with biopsy, stricture dilation Pathology: anal canal, biopsy: negative for malignancy; polypoid inflamed granulation tissue with erosion and dilated/congested vessels; negative for granulomas; no epithelial lining observed Cancer Stage (if applicable): N/A Kings Hatfield is a 24yo female with known [...] Exam: BP 104/71 Pulse 67 Temp 98.2 F (36.8 C) (Infrared) Resp 16 Ht 1.6 m (5' 3 ) Comment: w/o shoes Wt 69 kg (152 lb 3.2 oz) Comment: w/o shoes SpO2 98% Comment: room air BMI 26.96 kg/m Smoking Status Never Wt Readings from Last 1 Encounters: 12/26/24 69 kg (152 lb 3.2 oz) ; 1.6 m (5' 3 ); Body mass index is 26.96 kg/m . General Appearance: awake and alert, well-appearing, in no acute distress, well-hydrated, and well-nourished Abdomen: soft, non-tender, non-distended, and [...] with luminal narrowing. Findings are suggestive of ifgxu-mp-ofiswhx Crohn's disease. Prominent asymmetric soft tissue in [...] had no further concerns at this time. Kings Hatfield was given our contact information if she has any further questions or concerns. Clifford Rodas MD CERAS teaching completed with patient. (2) Ensure Pre-surgery drinks, (2) Ensure High Protein drinks, skin prep soap, bowel prep instruction sheet, and GI surgery book provided. All questions answered. Patient states understanding and denies any questions at this time. RN called patient and gave ERAS TEACHING, and sent pt ERAS teaching through [employer]. documented in this encounter [facility] 12-26-2024 Instructions Jerilyn Hutchins RN - 12/26/2024 11:15 AM EDT Survey Following your visit today, you may receive a survey via text or email asking about your experience. We are always looking for ways to improve your visit. Please share your feedback and comments with us- We would love to hear from you! [...] doses. No premeds. Rate and dilution per clinical rn package insert or per pharmacist discretion. Infusion [...] call by 4 p.m., please call the [facility] at . [...] the hospital. Do not wear makeup, nail sami or hair pins to the hospital. Please [...] your surgery, or as directed by your surgeon s office, to allow time to get you ready for surgery. If you have a living will or durable power of business attorney, please bring a copy of the documents with you. IF YOU USE CPAP BRING YOUR MACHINE WITH YOU TO THE HOSPITAL ALONG WITH THE PRESCRIPTION FOR CPAP PRESSURE LEVELS If you develop any illness, such as a cold, sore throat, cough, or fever, before your surgery, call the [facility] at and our office at . Diet You may have a regular diet the day before. Nothing to eat or drink (NPO) after midnight except for certain medications (See medication guidelines that were given to you during you pre-op visit) and the Ensure Pre-Surgery clear nutrition drink (see information below for directions on this drink [...] than 2 hours prior to surgery time. You should have nothing to eat or drink at all 2 hours prior to your surgery. Nutritional Prehabilitation We found that patients who are nutritionally boosted prior to surgery and after surgery recover faster. Our recommendation is for you to use two nutritional supplements per day for 14 days before and 14 days after surgery to support a healthy diet. These supplements help rebuild muscle for strength and energy during recovery from surgery. Adding nutrition supplements to your diet prior to surgery has been clinically shown to help significantly improve [...] found at all major retailers and on [employer]. If you are unable to find these supplements, then we recommend that you find a nutrition supplement that contain between 20-30 grams of protein and between 250-350 calories. Please be aware that the protein supplements, such as Ensure Enlive and Ensure Plus High Protein are different than the Ensure Pre-Surgery Clear Nutrition Drink. Protein Nutrition supplements, such as Ensure Enlive, Ensure Plus High Protein, or Glucerna should not be drank the day of surgery. The only nutrition drink that you should drink the [...] program. You can also get help through: [facility], National Quit Line, [place] Lung Association, [place] Cancer Society, Smokefree.gov website Stop Alcohol Use [...] resources helpful:Alcoholics Anonymous (AA) http://www.aa.org/ Rethinking Drinking https://www.rethinkingdrinking.niaa a.nih.gov/ National [place] of Alcohol Abuse and Alcoholism https://niaaa.nih.gov/ Anila Rubin 306-872-6778 -Inpatient, partial hospitalization and outpatient services for [...] you may be given include anti-anxiety and anti-nausea medicines. Taking your pain medicine as ordered [...] move around in bed or walk. The epidural can stay in until 24-48 hours before discharge from the hospital. Rare side effects from an epidural may include: headaches, bleeding, allergic reaction or infection. Alternative Pain Relief Options If the previously mentioned pain relief procedures are not best for you, do not worry, there are alternative options to provide pain relief after surgery. Patient Controlled Analgesia (also known as a PHLEBOTOMY TECHNICIAN) A PHLEBOTOMY TECHNICIAN is a pain pump that could be [...] you are using the Hibiclens (chlorhexidine) Foam wash, then apply 3 pumps of wash directly onto [...] questions about cleaning your skin, call your doctor s office. documented in this encounter [facility] 12-26-2024 Miscellaneous Notes Addended by: YVETTE MAR on: 12/26/2024 02:00 PM Modules accepted: Orders documented in this encounter [facility] 12-26-2024 Note Addended by: YVETTE MAR on: 12/26/2024 02:00 PM Modules accepted: Orders [facility] 11-02-2024 Nurse Surgical operation note Patient meets ASU discharge criteria and discharged per MD order to home. Patient taken by wheelchair by Herlinda TATUM to awaiting car. All belongings gathered with patient. Family/friend to drive patient home and care for patient 24 hours post-op. [facility] 11-02-2024 Nurse Note Patient meets ASU discharge criteria and discharged per MD order to home. Patient taken by wheelchair by Herlinda TATUM to awaiting car. All belongings gathered with patient. Family/friend to drive patient home and care for patient 24 hours post-op. documented in this encounter [facility] 11-02-2024 Miscellaneous [facility] Vital signs taken and stable. Patient given drink and snacks. Family called to bedside. Patient assessed. Patient denies hx of chemo and radiation. Patient denies metal or foreign objects in body. Patient denies hx of seizure or stroke. documented in this encounter [facility] 11-02-2024 Nurse Note Patient arrived to [facility] via [facility]. Vital signs taken and stable. Patient given drink and snacks. Family called to bedside. [facility] assessed[facility] Discharge instructions Cliff Taylor MD, PhD - 11/02/2024 5:25 PM EDT Anorectal Discharge Instructions You had: Anorectal examination under anesthesia with dilation of anal stricture, flexible sigmoidoscopy, and biopsies of stricture BOWEL MOVEMENTS It is normal after anal surgery to have a little difficulty telling gas from stool while you are healing. This is not permanent. You may even notice a small amount of leakage. A strong feeling of pressure or increase in pain may be the first sign of the need to defecate The first bowel movement may be uncomfortable. Try to relax If you have trouble, you can take the following over the counter daily until the stool remains soft and easy to pass Polyethylene glycol (Miralax) - take one dose every day Docusate (Colace) - take 100 mg 3x daily WOUND CARE Soak for 5 minutes (or shower) in very warm water 3 times daily for 10 days Do not add salts or other products to the water Pat the area dry. If you have a bandage on, you can remove this the evening of surgery Light bleeding or drainage is NORMAL--this may be clear, straw-colored, pink, or brown A light pad is usually enough to control any drainage, which may have an unpleasant odor External anal wounds heal by mounding up a lot of red, inflamed tissue - this is NORMAL and will slowly resolve over 4-6 weeks ACTIVITY AND DIET Drink 8-10 glasses of water daily. There are no dietary restrictions. Eat what sounds good. There are few activity restrictions after anal surgery. You should not drive make critical decisions while taking opioid medication Almost nothing you do will harm the wound. Avoid vaginal and anal sex for 6 weeks. Bicycling or similar activity may be uncomfortable. WHAT TO WATCH OUT FOR AND WHEN TO CALL Call if you experience any of the following. These can be signs of complications after anorectal surgery: Bleeding with blood clots that does not stop Inability to urinate despite having the urge Pelvic pain that continues to get worse Fever greater than 101 F New sweating, anxiety, agitation, nausea, vomiting, drowsiness, confusion, or abdominal cramping. These can be a sign of OPIOID WITHDRAWAL or other reaction PAIN AFTER SURGERY Anal surgery hurts. It is not unusual to have pain in the area for several days after surgery. Your surgical team has determined which combination of medications is right for you. Some are tbee-gon-cpamirp, some prescribed electronically, and some require a paper prescription. Acetaminophen (Tylenol) - blocks the pain impulse generated from your wounds, over the counter Patients with known liver disease cannot take acetaminophen Naproxen (Aleve) - a non-steroidal anti-inflammatory medication (NSAID), over the counter Patients with severe kidney disease, a history of stomach ulcers, or certain bleeding disorders may not be able to take NSAIDs Ibuprofen (Advil, Motrin) - a non-steroidal anti-inflammatory medication (NSAID), over the counter Ibuprofen is similar to naproxen and you should not take both simultaneously. Naproxen is slightly stronger than ibuprofen, but also has a higher chance of causing side effects for stomach ulcers, bleeding, and kidneys. You may use your own judgment to choose one of these medications based on prior experience with them. Patients with severe kidney disease, a history of stomach ulcers, or certain bleeding disorders may not be able to take NSAIDs HOW TO TAKE THE MEDICATIONS AT HOME For most anorectal surgery, the worst pain occurs in the first 2-3 days. This is from the inflammation around your wounds. Your goal is LESS THAN 4 out of 10 pain. DAYS 1-3 AFTER YOUR ANORECTAL SURGERY In addition, take TYLENOL around the clock, every 6 hours If you need further pain control, take NAPROXEN or IBUPROFEN around the clock, every 6 hours DAYS 4 and beyond Continue to take TYLENOL around the clock, every 6 hours If your pain is 4/10 or worse, take NAPROXEN or IBUPROFEN every 4 hours until it is controlled As your pain improves, try waiting 6 or 8 hours before taking NAPROXEN or IBUPROFEN Within a few days you will find that you can stop taking NAPROXEN or IBUPROFEN completely documented in this encounter [facility] Nurse Note Patient denies hx of chemo and radiation. Patient denies metal or foreign objects in body. Patient denies hx of seizure or stroke. [facility] 10-17-2024 Instructions Eleanor Bess RN - 10/17/2024 10:30 AM EDT Current Outpatient Medications Medication Sig Acetaminophen 325 MG tablet Hold 2 days prior Lidocaine viscous-Alum & Mag Mgcvoapeq-Zinnab-xlmicetfnuJKADS oral mouthwash Hold 24 hours prior risankizumab-rzaa (Skyrizi) 600 MG/10ML Solution Continue riTUXimab (RITUXAN IV) Continue Zinc 50 MG tablet Hold 2 weeks prior Vit-Fe Fumarate-FA ( PO) Hold 2 weeks prior Preparing for Surgery 1 A nurse will call you by 4 p.m. the day before your surgery to check the time, type of surgery and to answer any questions you may have. If you do not receive a call by 4 p.m., please call the [facility] at . Follow these instructions before coming to the hospital: 2 Do not eat or drink anything (including [...] have an empty stomach before your surgery. 3 Do not smoke/use any sort of tobacco after 6 p.m. the night before your surgery. 4 You may take a bath or shower the morning of your surgery. 5 Wear casual, loose-fitting clothing to the hospital. 6 Do not wear makeup, nail sami or hair pins to the hospital. Please remove any body piercing's. 7 Please leave jewelry and other valuables at home. 8 Bring a storage case for contact lenses or glasses. They cannot be worn during surgery. 9 If you take medicines on a routine basis, please bring an updated list of medications with you. 10 Limit the number of people bringing you to the hospital. Adult patients should be escorted by one adult. 11 Arrive at the hospital two hours before your surgery, or as directed by your surgeon s office, to allow time to get you ready for surgery. 12 If you have a living will or durable power of business attorney, please bring a copy of the documents with you. 13 IF YOU USE CPAP BRING YOUR MACHINE WITH YOU TO THE HOSPITAL ALONG WITH THE PRESCRIPTION FOR CPAP PRESSURE LEVELS If you develop any illness, such as a cold, sore throat, cough, or fever, before your surgery, call the [facility] at and our office at . Survey Following your visit today, you may receive a survey via text or email asking about your experience. We are always looking for ways to improve your visit. Please share your feedback and comments with us- We would love to hear from you! documented in this encounter [facility] 09-22-2024 History of Present illness Narrative Images from the original note were not included. [facility] Chief Complaint Patient presents with Follow-up Crohn's Disease HISTORY OF PRESENT ILLNESS Kings Hatfield is a 23 y.o. female w/ PMH Ileocolonic Crohn's disease Stelara, orbital myositits, psoriasis, chronic sinusitis here for follow up. Transferred care from [facility] 02/2023. Patient was diagnosed with Crohn's disease when [...] told Crohn's moved to mouth. Went to [facility] and this stopped working. On Rituximab for orbital myositis. Has been on Stelara for at least a year and states things have been going well for past couple of months. Was ordered stool calprotectin to ensure inflammation was stable throughout last 2 visits but not completed. Colonoscopy completed 11/2023 - SES score 0, anal stricture found on digital rectal exam. Pathology with mild reactive changes at anastomosis, and acutely inflamed tissue in rectum. She was sent hydrocortisone suppositories to use for a month and then canasa to use ongoing. UST levels were checked and were therapeutic. Calprotectin prior to scope was 265. Calprotectin 05/2024 was 851 Patient presents today feeling okay. Having a bowel movement 3-6x daily, loose. Minimal blood in stool. Endorses urgency, denies nocturnal symptoms. Some abdominal pain here and there, denies nausea or vomiting. Denies heartburn or dysphagia. Down 20lbs since June, appetite is there but mouth sores are causing trouble with eating. Denies recent fevers or antibiotic use. Currently set to start Skyrizi, first dose tomorrow. Currently on prednisone 30mg daily, decreasing by 10mg weekly. She is not using Canasa anymore. Continues to follow with rheumatology for orbital myositis. Colonoscopy 08/2024 - rectal stricture noted, inflammation was found. Has appointment with CRS 10/2024. From an EIM standpoint, denies oral ulcers, eye pain to suggest iritis or uveitis, skin rash or lesions, IBD history Diagnosed (age): 10 Disease distribution: [place] Classification: CD: A1 <16, L3 ileocolonic GI surgical history: Ileocectomy 2016 Current therapy: Skyrizi (set to start tomorrow) Past therapy: - Stelara [id number] - Infliximab(stopped due to severe scalp psoriasis) - Entyvio(stopped due to facial granulomatosis swelling) - Humira? Last colonoscopy: 08/2024 - inflammation but prep not adequate and rectal stricture Last imaging: N/A Complications: Orbital myositis, psoriasis IBD MD: Will Complete 14-Point Review of Systems: See History of Present Illness for pertinent positives/negatives; health history questionnaire also reviewed. Otherwise, all other systems negative. 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 Iron deficiency anemia 09/01/2023 Migraine Orbital myositis of both sides Psoriasis of scalp 09/01/2023 Induced by TNF inhibitors (infliximab, adalimumab) Pulmonary nodule 09/01/2023 Pulmonary nodules PAST SURGICAL HISTORY: Past Surgical History: Procedure Laterality Date SECTION 09/03/2023 APPENDECTOMY COLECTOMY partial TONSILLECTOMY ADENOIDECTOMY ALLERGIES: Allergies [...] 6 hours as needed., Disp: , Rfl: predniSONE 10 MG tablet, Take 4 tablets by mouth daily for 7 days, THEN 3 tablets daily for 7 days, THEN 2 tablets daily for 7 days, THEN 1 tablet daily for 7 days., Disp: 70 tablet, Rfl: 0 Vit-Fe Fumarate-FA ( PO), Take by mouth., Disp: , Rfl: Risankizumab-rzaa (Skyrizi) 360 MG/2.4ML Solution Cartridge, Inject 360 mg under the skin every 56 days., Disp: 2.4 mL, Rfl: 6 risankizumab-rzaa (Skyrizi) 600 MG/10ML Solution, 600 mg by Intravenous route every 28 days for 3 doses. Infuse Skyrizi 600mg every 4 weeks x 3 doses. No premeds. Rate and dilution per clinical rn package insert or per pharmacist discretion. Infusion reaction medications per pharmacy or infusion suite standard., Disp: 10 mL, Rfl: 2 riTUXimab (RITUXAN IV), by Intravenous route. Every 6 months, Disp: , Rfl: Family History Problem Relation Age of Onset Stroke Mother Bleeding or Clotting Problems Mother Hypertension Father Social History Socioeconomic History Marital status: Single Tobacco Use Smoking status: Never Smokeless tobacco: Never Vaping Use Vaping status: Never Used Substance and Sexual Activity Alcohol use: Not Currently Drug use: Never Sexual activity: Yes Partners: Male Other Topics Concern Occupational Exposure No Hobby Hazards No Social Drivers of Health Financial Resource Strain: Low Risk (05/17/2024) Received from [facility] Overall Financial Resource Strain (CARDIA) Difficulty of Paying Living Expenses: Not hard at all Food Insecurity: No Food Insecurity (05/17/2024) Received from [facility] Hunger Vital Sign Worried About Running Out of Food in the Last Year: Never true Ran Out of Food in the Last Year: Never true Transportation Needs: No Transportation Needs (05/17/2024) Received from [facility] PRAPARE - Transportation Lack of Transportation (Medical): No Lack of Transportation (Non-Medical): No Physical Activity: Insufficiently Active (05/17/2024) Received from [facility] Exercise Vital Sign Days of Exercise per Week: 4 days Minutes of Exercise per Session: 30 min Stress: No Stress Concern Present (05/17/2024) Received from [facility] [place] [employer] of Occupational Health - Occupational Stress Questionnaire Feeling of Stress : Not at all Social Connections: Moderately Isolated (05/17/2024) Received from [facility] Social Connection and Isolation Panel [NHANES] Frequency of Communication with Friends and Family: More than three times a week Frequency of Social Gatherings with Friends and Family: More than three times a week Attends Congregation Services: Never Active Member of Clubs or Organizations: No Attends Club or Organization Meetings: Never Marital Status: Living with partner Personal Safety: Not At Risk (02/09/2023) Received from [facility] [employer], [facility] Humiliation, Afraid, Rape, and Kick questionnaire Fear of Current or Ex-Partner: No Emotionally Abused: No Physically Abused: No Sexually Abused: No Housing Stability: Low Risk (05/17/2024) Received from [facility] Housing Stability Vital Sign Unable to Pay for Housing in the Last Year: No Number of Times Moved in the Last Year: 0 Homeless in the Last Year: No Physical Exam: Vitals: 09/22/24 1405 BP: 118/78 Pulse: 74 Resp: 21 SpO2: 98% General: Age-appropriate, no pallor, no acute distress, alert, pleasant, no evidence of chronic illness HENT: Normocephalic, atraumatic. Eyes: Conjunctiva normal, no discharge. Neck: No visible lymphadenopathy or goiter Lymphatic: No lymphadenopathy noted. Cardiovascular: Normal heart rate, normal rhythm Pulmonary: No respiratory distress, normal effort Abdomen: Non-distended Skin: Warm, Dry, No erythema, No rash Neurologic: Alert & oriented x 3, Normal motor function, Normal sensory function, No focal deficits noted. Psychiatric: Affect normal, Judgment normal, Mood normal LABS: Lab Results Component Value Date WBC 11.95 (H) 08/06/2023 HGB 9.3 (L) 08/06/2023 HCT 29.1 (L) 08/06/2023 PLATELET 206 08/06/2023 MCV 85.3 08/06/2023 Lab Results Component Value Date SODIUM 138 08/06/2023 POTASSIUM 3.8 08/06/2023 CHLORIDE 107 08/06/2023 CO2 23 08/06/2023 BUN 4 (L) 08/06/2023 CREATSERUM 0.45 (L) 08/06/2023 GLUCOSE neg 08/06/2023 No results found for: SEDRATE Lab Results Component Value Date CRP 5.36 08/06/2023 RADIOLOGIC STUDIES: Relevant radiology studies were reviewed in [facility] PROCEDURES: Colonoscopy 08/2024: Impression: - Preparation of the colon was inadequate. - Rectal stricture was noted at about 5cm. The prevented to passage of the adult colonoscopy. The scope was switched to an Ultrathin. - Question of polyp in the rectal area distal to the rectal stricture vs pseudopolyp - Rectal stricture found on digital rectal exam. - The prep was inadequate for colon cancer screening but adequate for evaluation of inflammation up to the mid transverse. Poor prep and significant looping prevented passage of the scope beyond this area. - The examined mucosa (distal to the mid transverse) showed diffuse erythema, decreased vascularity, congestion and scattered apthous ulcerations. Biopsies were taken with a cold forceps for histology. Pathologic Diagnosis A. Colon, transverse, biopsy: Chronic colitis, mildly active. See comment No evidence of granulomas, dysplasia or malignancy B. Colon, left, biopsy: Chronic colitis, mildly active, with epithelioid granulomas. See comment No evidence of dysplasia or malignancy C. Rectum, biopsy: Chronic colitis with epithelioid granulomas. See comment No evidence of dysplasia or malignancy. Colonoscopy 11/2023: Impression: - Simple Endoscopic Score for Crohn's Disease: 0, mucosal inflammatory changes secondary to quiescent Crohn's disease. Biopsied. - Anal stricture found on digital rectal exam. - Localized mild inflammation was found at the anus and in the distal rectum secondary to Crohn's disease. Biopsied. Pathologic Diagnosis A. Small intestine, neoterminal ileum, normal, biopsy: Small bowel terminal ileum mucosa with no significant pathologic change Negative for well-formed granulomata and dysplasia B. Ileocolonic anastomosis, biopsy: Ileocolonic mucosa with mild reactive changes and rare acute inflammation Negative for well-formed granulomata and dysplasia IHC for CMV is negative C. Right colon, normal, biopsy: Portions of colonic mucosa with no significant pathologic changes Negative for well-formed granulomata and dysplasia D. Left colon, normal, biopsy: Portions of colonic mucosa with no significant pathologic changes Negative for well-formed granulomata and dysplasia E. Anorectal canal, inflammation, biopsy: Predominantly acutely inflamed granulation tissue with ulcer and erosion; focal squamous mucosa with reactive epithelial changes Negative for well-formed granulomata and dysplasia IHC for CMV is negative EGD 2021: Colonoscopy 2017: Pathology: IMPRESSION: Kings Hatfield is a 23 y.o. female w/ PMH Ileocolonic Crohn's disease s/p ileocectomy 2016, orbital myositits, psoriasis, chronic sinusitis, completed follow up visit today. Kings presents today to follow up on colonoscopy - discussed findings of active inflammation and rectal stricture. She is set to start Skyrizi tomorrow, will proceed with this as scheduled. Will continue prednisone taper as prescribed. Will update labs today. Recommend she follow up with colorectal as scheduled. She will reach out with any concerns. Will need repeat scope sometime this year as well as bowel imaging. We can order at next appointment if not already done. We will plan to see her back in 2 months, or sooner if necessary. PLAN/RECOMMENDATIONS: - Skyrizi infusion tomorrow as scheduled - Update labs today - Continue prednisone taper as prescribed - Colorectal follow up as scheduled in October - Reach out with concerns - Follow up in 2 months, or sooner if necessary Healthcare maintenance: - Live vaccines should generally be avoided (eg. Zoster/Shingles), Shingrix okay - Influenza vaccine: recommend annually - Prevnar 20: Negative Ab 07/2023 - recommend vaccination - Hepatitis B: Negative Ab 02/2023 - recommend vaccination - HPV vaccine: recommend f/u with PCP if not already done - TB status: quantiferon gold negative 05/2024 - Colon cancer screening: last colonoscopy 08/2024, dysplasia surveillance colonoscopy due 8 years from time of diagnosis - Cervical cancer: counseled. F/u with primary provider for routine screening - Skin cancer: counseled. F/u with primary provider or dermatology for annual skin exams-follows with provider - Bone density: DEXA - consider updating in the future - Smoking status: non-smoker Total time spent on day of encounter including yqd-btbc-yo-face time (chart review/completing the note/coordinating care) and ypdg-ut-gfir time with the patient: 20 minutes DANIKA Waterman IBD Nurse Practitioner Division of Gastroenterology, Hepatology, and Nutrition Marciano CRAIG verified patients name and . documented in this encounter [facility] 09-22-2024 Instructions DANIKA Waterman - 09/22/2024 2:30 PM EDT - Skyrizi infusion tomorrow as scheduled - Update labs today - Continue prednisone taper as prescribed - Colorectal follow up as scheduled in October - Reach out with concerns - Follow up in 2 months, or sooner if necessary documented in this encounter [facility] 09-06-2024 Nurse Note Extent reached per Dr. Dalton.. [facility] 09-06-2024 Miscellaneous Notes Extent reached per Dr. Dalton.. Exchanged adult scope for ultraslim scope. Sedation, vital signs, airway, and monitoring per anesthesia. documented in this encounter [facility] 09-06-2024 Nurse Note Exchanged adult scope for ultraslim scope. [facility] 09-06-2024 History and physical note ENDOSCOPIC PREPROCEDURE HISTORY AND PHYSICAL HISTORY OF PRESENT ILLNESS: Kings Hatfield is a 23 y.o. female seen in the pre-procedure area at * No surgery found *. 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 riTUXimab (RITUXAN IV) by Intravenous route. Every 6 months Ustekinumab (STELARA) 90 mg, Subcutaneous, EVERY 8 WEEKS Ustekinumab (STELARA) 90 mg, Subcutaneous, EVERY 28 DAYS Current Outpatient Medications: Acetaminophen 325 MG tablet, Take 2 tablets by mouth Every 6 hours as needed., Disp: , Rfl: Vit-Fe Fumarate-FA ( PO), Take by mouth., Disp: , Rfl: riTUXimab (RITUXAN IV), by Intravenous route. Every 6 months, Disp: , Rfl: Ustekinumab 90 MG/ML Solution Prefilled Syringe injection, Inject 1 mL under the skin every 56 days., Disp: 1 mL, Rfl: 6 Ustekinumab 90 MG/ML Solution Prefilled Syringe injection, Inject 1 mL under the skin every 28 days., Disp: 1 mL, Rfl: 11 ALLERGIES: Allergies Allergen Reactions Cefdinir Anaphylaxis and [...] Magdalene Syndrome Other Reaction(s): Magdalene Syndrome, Unknown FOCUSED REVIEW OF SYSTEMS: Negative for nausea, vomiting, abdominal pain and diarrhea VITAL SIGNS: There were no vitals filed for this visit. PREPROCEDURE PHYSICAL EXAM: AIRWAY: normal, Mallampati: Class IV (soft palate is not visible at all) HEART: Regular and No murmur PULMONARY: Lungs clear to auscultation bilaterally ABDOMEN: Soft, nontender, nondistended ASSESSMENT: Kings Hatfield is a 23 y.o. female is ready for the planned procedure. ASA Class: ASA 2 - Patient with mild systemic disease with no functional limitations PLAN: Will plan to proceed with DIAGNOSTIC COLONOSCOPY using Monitored Anesthesia Care. Tu Dalton MD [facility] Work Phone: 09-06-2024 History and physical note ENDOSCOPIC PREPROCEDURE HISTORY AND PHYSICAL HISTORY OF PRESENT ILLNESS: Kings Hatfield is a 23 y.o. female seen in the pre-procedure area at * No surgery found *. 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 riTUXimab (RITUXAN IV) by Intravenous route. Every 6 months Ustekinumab (STELARA) 90 mg, Subcutaneous, EVERY 8 WEEKS Ustekinumab (STELARA) 90 mg, Subcutaneous, EVERY 28 DAYS Current Outpatient Medications: Acetaminophen 325 MG tablet, Take 2 tablets by mouth Every 6 hours as needed., Disp: , Rfl: Vit-Fe Fumarate-FA ( PO), Take by mouth., Disp: , Rfl: riTUXimab (RITUXAN IV), by Intravenous route. Every 6 months, Disp: , Rfl: Ustekinumab 90 MG/ML Solution Prefilled Syringe injection, Inject 1 mL under the skin every 56 days., Disp: 1 mL, Rfl: 6 Ustekinumab 90 MG/ML Solution Prefilled Syringe injection, Inject 1 mL under the skin every 28 days., Disp: 1 mL, Rfl: 11 ALLERGIES: Allergies Allergen Reactions Cefdinir Anaphylaxis and [...] Magdalene Syndrome Other Reaction(s): Magdalene Syndrome, Unknown FOCUSED REVIEW OF SYSTEMS: Negative for nausea, vomiting, abdominal pain and diarrhea VITAL SIGNS: There were no vitals filed for this visit. PREPROCEDURE PHYSICAL EXAM: AIRWAY: normal, Mallampati: Class IV (soft palate is not visible at all) HEART: Regular and No murmur PULMONARY: Lungs clear to auscultation bilaterally ABDOMEN: Soft, nontender, nondistended ASSESSMENT: Kings Hatfield is a 23 y.o. female is ready for the planned procedure. ASA Class: ASA 2 - Patient with mild systemic disease with no functional limitations PLAN: Will plan to proceed with DIAGNOSTIC COLONOSCOPY using Monitored Anesthesia Care. Tu Dalton MD documented in this encounter [facility] 09-06-2024 Nurse Note A copy of the written instructions regarding post-procedure diet, medications, activities, and phone number to be called in case of emergency provided to patient and/or responsible republican. Information reviewed and questions answered prior to discharge. PT HAD SPRITE AND PRETZELS DRESSED SELF AMBULATED TO LOBBY BY SELF documented in this encounter [facility] 09-06-2024 Nurse Surgical operation note A copy of the written instructions regarding post-procedure diet, medications, activities, and phone number to be called in case of emergency provided to patient and/or responsible republican. Information reviewed and questions answered prior to discharge. PT HAD SPRITE AND PRETZELS DRESSED SELF AMBULATED TO LOBBY BY SELF [facility] 09-06-2024 Nurse Note Sedation, vital signs, airway, and monitoring per anesthesia. [facility] 08-01-2024 History of Present illness Narrative Images from the original note were not included. Kings Hatfeild is a 23 y.o. female presents with chief complaint of Migraine HPI: HPI History of Present Illness The patient presents for evaluation of headaches. Daily headaches have been experienced for the past 2.5 weeks, originating in the left nondenominational area and radiating across the forehead to the right side. These headaches intensify in the afternoons, often becoming so severe that they induce nausea. Despite taking Tylenol and ibuprofen around the clock, no relief is found. Ubrelvy 50 mg was prescribed, providing temporary relief for 1 to 2 days before the headaches returned. A history of headaches is noted, typically associated with a tumor. Occasionally, pain above the eye is experienced, which can escalate into a migraine even with medication. A recent CT scan was unhelpful due to artifacts. Uncertainty exists regarding whether an MRI of the orbits would provide more insight into the eye tumors. It is unclear if the current symptoms are related to a tumor flare or a migraine. Tumor headaches are characterized by pain above the eye, eyelid swelling, and eye restriction when looking up, down, or to the side. However, no swelling has been observed recently. The pain initially presents as a tumor headache before spreading across the forehead and evolving into a migraine. Currently under the care of a physician support coordinator at [facility], who recommended starting treatment here and potentially obtaining scans if necessary. The physician support coordinator was also unsure if the symptoms were due to migraines or the tumor. The pain is reported as manageable, but it leaves her feeling extremely fatigued, often wanting to retire to bed by 8:00 PM. Nurtec has been tried without success. SUBJECTIVE: MEDICATIONS: Current Outpatient Medications Medication Instructions acetaminophen (Tylenol) 325 MG tablet 2 tablets, Every 6 hours PRN albuterol HFA 90 mcg/act inhaler 2 puffs, Inhalation, Every 4 hours PRN dextrose 5 % solution 500 mL with riTUXimab 500 MG/50ML solution 375 mg/m2 Infuse into a venous catheter ferrous sulfate (FE TABS) 325 mg, Oral, 2 times daily, Do not crush, chew, or split. ibuprofen 600 mg, Every 6 hours PRN riTUXimab (Rituxan) 100 MG/10ML chemo injection as directed Intravenous Ubrelvy 100 mg, Oral, As needed ustekinumab (STELARA) 90 mg I have reviewed and reconciled the history and medication list with the patient today. REVIEW OF SYMPTOMS: Review of Systems Constitutional: Positive for fatigue. Gastrointestinal: Positive for nausea. Neurological: Positive for headaches. OBJECTIVE: Visit Vitals BP 120/80 Pulse 88 Temp 99.3 F Resp 18 Ht 5' 3 Wt 170 lb SpO2 98% BMI 30.11 kg/m OB Status Unknown Smoking Status Never BSA 1.85 m Physical Exam Vitals and nursing note reviewed. Constitutional: Appearance: Normal appearance. HENT: Head: Normocephalic and atraumatic. Right Ear: Tympanic membrane and ear canal normal. Left Ear: Tympanic membrane and ear canal normal. Nose: Nose normal. Mouth/Throat: Mouth: Mucous membranes are moist. Pharynx: Oropharynx is clear. Eyes: Extraocular Movements: Extraocular movements intact. Conjunctiva/sclera: Conjunctivae normal. Pupils: Pupils are equal, round, and reactive to light. Neurological: Mental Status: She is alert. ASSESSMENT AND PLAN: Assessment/Plan Diagnoses and all orders for this visit: Immunocompromised patient (CMS/HCC) Nonintractable episodic headache, unspecified headache type - Atogepant (Qulipta) 60 MG tablet; Take 1 tablet by mouth Daily Assessment & Plan 1. Headaches. - Reports daily headaches starting in the left nondenominational area and spreading across the forehead to the right, often worsening in the afternoons and causing nausea. - Mwqn-kwx-dnrrzwr medications like Tylenol and ibuprofen have been ineffective. Ubrelvy 50 mg provided temporary relief, and Nurtec was ineffective. - Headaches may be related to known eye tumors or could be migraines. Rheumatology advised starting with primary care and possibly getting scans if needed. -No further scans needed at this point, until she sees neuro. - Samples of Qulipta will be provided, and she is advised to take one daily. A prescription for Qulipta will be sent to the pharmacy, and insurance coverage will be checked. Qulipta until she can get in with neuro for further eval. documented in this encounter [facility] 07-15-2024 History of Present illness Narrative Images from the original note were not included. Kings Hatfield is a 23 y.o. female presents with chief complaint of Migraine (Past 2-4 weeks pt has been having migraines. ) HPI: HPI History of Present Illness The patient presents for evaluation of migraines. She reports experiencing constant headaches, which have escalated to migraines over the past 3 weeks. The headaches are described as a pulsating pressure that encompasses her entire forehead, without any specific side of onset. She does not experience photophobia, phonophobia, nausea, or vomiting. She has not been prescribed any specific medication for her migraines. She also reports no sinus symptoms, ocular swelling, or movement restrictions. Additionally, she does not have rhinorrhea, sore throat, or congestion. She has not had a CT or MRI scan in recent years and is uncertain if one would be necessary. She recalls that her last flare-up was 4 years ago, during which she experienced similar pressure but with concurrent eye swelling. Her physician support coordinator noted that her last ocular flare-up was in 2019. She has been experiencing these headaches for approximately 3 weeks, which transitioned into migraines about a week ago. Despite the severity of her symptoms, she is able to function normally. She does hav a higher pain tollrance than most. These headaches are intermittent throughout the day, typically occurring around midday and persisting until bedtime. She finds relief upon waking up. She has attempted to manage these symptoms with Tylenol and ibuprofen, but these interventions have proven ineffective. She has a history of frequent headaches associated with ocular symptoms, but the current presentation is characterized by persistent headaches that have evolved into migraines. She has been dealing with Crohn's disease, which has been significantly exacerbated recently. Laboratory results from the previous month indicated a severe flare-up, anemia, and elevated calprotectin levels (800-900). Consequently, her Stelara dosage was adjusted to a 4-week interval instead of the usual 6 weeks. MEDICATIONS Current: Tylenol, ibuprofen, Stelara SUBJECTIVE: MEDICATIONS: Current Outpatient Medications Medication Instructions acetaminophen (Tylenol) 325 MG tablet 2 tablets, Every 6 hours PRN albuterol HFA 90 mcg/act inhaler 2 puffs, Inhalation, Every 4 hours PRN budesonide EC (Entocort EC) 3 MG 24 hr capsule dextrose 5 % solution 500 mL with riTUXimab 500 MG/50ML solution 375 mg/m2 Infuse into a venous catheter docusate sodium (COLACE) 100 mg, Oral, 2 times daily ferrous sulfate (FE TABS) 325 mg, Oral, 2 times daily, Do not crush, chew, or split. ibuprofen 600 mg, Every 6 hours PRN predniSONE (Deltasone) 10 MG tablet predniSONE (Deltasone) 20 MG tablet Take by mouth MV-Min-Fe Fum-FA-DHA ( 1 PO) Take by mouth. riTUXimab (Rituxan) 100 MG/10ML chemo injection as directed Intravenous sertraline (ZOLOFT) 25 mg, Oral, Daily ustekinumab (STELARA) 90 mg I have reviewed and reconciled the history and medication list with the patient today. REVIEW OF SYMPTOMS: Review of Systems OBJECTIVE: Visit Vitals Ht 5' 3 Wt 173 lb BMI 30.65 kg/m OB Status Unknown Smoking Status Never BSA 1.87 m Physical Exam Vitals and nursing note reviewed. Constitutional: Appearance: Normal appearance. HENT: Head: Normocephalic and atraumatic. Right Ear: Tympanic membrane and ear canal normal. Left Ear: Tympanic membrane and ear canal normal. Nose: Nose normal. Mouth/Throat: Mouth: Mucous membranes are moist. Pharynx: Oropharynx is clear. Eyes: Extraocular Movements: Extraocular movements intact. Conjunctiva/sclera: Conjunctivae normal. Pupils: Pupils are equal, round, and reactive to light. Neurological: Mental Status: She is alert. ASSESSMENT AND PLAN: Assessment & Plan 1. Migraines. She reports experiencing constant headaches for the past 3 weeks, which have evolved into migraines over the past week. The headaches are described as a throbbing, pulsating pressure that wraps around the forehead. Zbnx-lyw-uaxppcm medications like Tylenol and ibuprofen have been ineffective. There are no associated symptoms such as light sensitivity, sound sensitivity, nausea, vomiting, sinus symptoms, or eye swelling. Blood pressure is normal. An MRI conducted in June 2020 was normal. Samples of Ubrelvy will be provided to try over the weekend. If the headaches worsen, she should go to the emergency room. If the new medication does not control the headaches, a scan may be considered next week. 2. Crohn's disease. Her Crohn's disease has been significantly exacerbated recently. Laboratory results from the previous month indicated a severe flare-up, anemia, and elevated calprotectin levels (800-900). Consequently, her Stelara dosage was adjusted to a 4-week interval instead of the usual 6 weeks. Assessment/Plan Problem List Items Addressed This Visit Headache - Primary documented in this encounter [facility] 07-13-2024 Note Attestation signed by Jelly Latham MD at 07/13/2024 2:48 PM I personally saw and examined the patient on the same date of service as resident/fellow . I discussed the findings and therapeutic plan with the resident/fellow . I agree with the documentation, except for any edits/updates below. 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 Kings aHtfield is an 23 y.o. female presenting to the clinic as a new patient for the evaluation of Arthralgia with history of Crohn's disease. She also has reported history of Psoriasis from prior dermatology note 02/04/2022. Follows with [facility] last 05/26/2024 for crohn's disease involving large and small intestine. She was diagnosed with Crohn's at age 10 and had failed 6-MP and Prednisone initially. She was also placed on Infliximab at one point which was discontinued when she developed psoriasis and was placed on Entyvio which had improved symptoms at that time. Reportedly at one point she developed orbital myositis and pulmonary nodules. Humira was used at one point and lost efficacy. On rituximab for orbital myositis and was last on this 2-3 years ago and has been on Stelara Q 8 weeks for some time, went up to every 4 weeks for the past month with symptoms of diarrhea and abdominal pain. 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 She reports no active ocular symptoms. She does reports 2 weeks of joint aches of the fingers, knees, neck, ankles, and feet with occasional swelling with pain worse in the morning and in the evening lasting about 20-30 minutes without persistent symptoms throughout the day. She does note occasional swelling. She reports no restrictions to work due to this. She reports oral sores due to Crohn's disease, fatigue due to iron deficiency anemia. Denies any dry eyes, dry mouth, denies hair/skin/nail changes, raynaud's, or sun sensitivie skin rash. HPI Positive labs: no pertinent results available Negative/normal labs: no pertinent results available Imaging: no pertinent results available Family History: Sister as CVID, Mother had multiple strokes and [employer] vasculitis. No other autoimmune diseases or arthritis known in the family. 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 No tobacco, alcohol, or drug use. Patient is , 1 history of miscarriages at 3-4 weeks. Comprehensive History: There is no problem list on file for this patient. No past medical history on file. No past surgical history on file. Not on File Social History Socioeconomic History Marital status: Single Spouse name: Not on file Number of children: Not on file Years of education: Not on file Highest education level: Not on file Occupational History Not on file Tobacco Use Smoking status: Not on file Smokeless tobacco: Not on file Substance and Sexual Activity Alcohol use: Not on file Drug use: Not on file Sexual activity: Not on file Other Topics Concern Not on file Social History Narrative Not on file Social Determinants of Health Financial Resource Strain: Low Risk (05/17/2024) Received from [facility] Overall Financial Resource Strain (CARDIA) Difficulty of Paying Living Expenses: Not hard at all Food Insecurity: No Food Insecurity (05/17/2024) Received from [facility] Hunger Vital Sign Worried About Running Out of Food in the Last Year: Never true Ran Out of Food in the Last Year: Never true Transportation Needs: No Transportation Needs (05/17/2024) Received from [facility] PRAPARE - Transportation Lack of Transportation (Medical): (more content not included)... [facility] 05-18-2024 Telephone encounter Note I know Louisa s not in today, so can you send a message to Serene regarding me letting her know i saw bebe last night and tested negative for everything but i just took a positive covid test [facility] 05-18-2024 Miscellaneous Notes I know Louisa s not in today, so can you send a message to Serene regarding me letting her know i saw bebe last night and tested negative for everything but i just took a positive covid test documented in this encounter [facility] 05-17-2024 History of Present illness Narrative Kings Hatfield is a 23 y.o. female presents with chief complaint of URI HPI: HPI History of Present Illness The patient presents for evaluation of a headache, fever, cough, and sore throat. She began experiencing a headache 2 days ago, followed by the onset of other symptoms yesterday. She reports a fever that initially presented as 99.2 degrees, escalating to 100.5 degrees today. Her temperature was recorded as 98.9 degrees this morning but has since risen to 100.5 degrees this afternoon. She describes her headache as severe, likening it to an explosive sensation. She also reports occasional coughing and a sore throat. She has no ear pain. Her mother had a viral infection last week and is scheduled for a follow-up visit on . Additionally, she mentions exposure to a cold environment at her workplace. Despite taking Tylenol and Motrin, her fever has not subsided. She last took Tylenol at 1:00 PM today. Supplemental Information She underwent a surgical procedure on her left ear a few weeks ago to repair a perforation, with the patch being removed 2 weeks prior. MEDICATIONS Current: Tylenol, Motrin SUBJECTIVE: MEDICATIONS: Current Outpatient Medications Medication Instructions acetaminophen (Tylenol) 325 MG tablet 2 tablets, Every 6 hours PRN albuterol HFA 90 mcg/act inhaler 2 puffs, Inhalation, Every 4 hours PRN docusate sodium (COLACE) 100 mg, Oral, 2 times daily ferrous sulfate (FE TABS) 325 mg, Oral, 2 times daily, Do not crush, chew, or split. ibuprofen 600 mg, Every 6 hours PRN MV-Min-Fe Fum-FA-DHA ( 1 PO) Take by mouth. riTUXimab (Rituxan) 100 MG/10ML chemo injection as directed Intravenous sertraline (ZOLOFT) 25 mg, Oral, Daily ustekinumab (STELARA) 90 mg I have reviewed and reconciled the history and medication list with the patient today. REVIEW OF SYMPTOMS: Review of Systems Constitutional: Positive for fatigue. Negative for fever. HENT: Positive for congestion, rhinorrhea, sinus pain and sore throat. Respiratory: Positive for cough, shortness of breath and wheezing. Cardiovascular: Negative for chest pain, palpitations and leg swelling. Gastrointestinal: Negative for abdominal pain. OBJECTIVE: Visit Vitals BP 110/70 Pulse 101 Temp 100.5 F Resp 20 Ht 5' 3 Wt 181 lb SpO2 99% BMI 32.06 kg/m OB Status Unknown Smoking Status Never BSA 1.91 m Physical Exam Vitals and nursing note reviewed. Constitutional: Appearance: Normal appearance. HENT: Head: Normocephalic and atraumatic. Right Ear: Tympanic membrane normal. Left Ear: Tympanic membrane normal. Nose: Congestion present. Right Sinus: Frontal sinus tenderness present. Left Sinus: Frontal sinus tenderness present. Mouth/Throat: Mouth: Mucous membranes are moist. Pharynx: Posterior oropharyngeal erythema present. Tonsils: No tonsillar exudate. Cardiovascular: Rate and Rhythm: Normal rate and regular rhythm. Pulses: Normal pulses. Heart sounds: Normal heart sounds. Pulmonary: Effort: Pulmonary effort is normal. Breath sounds: Normal breath sounds. Musculoskeletal: Cervical back: Normal range of motion and neck supple. Skin: General: Skin is warm and dry. Capillary Refill: Capillary refill takes less than 2 seconds. Neurological: Mental Status: She is alert and oriented to person, place, and time. ASSESSMENT AND PLAN: Assessment/Plan Diagnoses and all orders for this visit: Viral URI Most likely viral in nature, will need to [...] improve. To ER for markedly worsening symptoms. Fever, unspecified fever cause - STATUS COVID-19/FLU documented in this encounter [facility] 05-04-2024 History of Present illness Narrative Chey Aragon MD [address] [place] [address] 23 year old F here for surgical follow up. Surgery was 03/22/[address] Lee. Having random left ear pain. States it feels like something is in there. Ear drops made it worse and stopped them. [facility] PEDIATRIC OTOLARYNGOLOGY FOLLOW UP VISIT NOTE Chey Aragon MD [facility] [place] [address] Kings Hatfield is a 23 year female who was seen in the Pediatric Otolaryngology Clinic for an established patient visit. CHIEF COMPLAINT: Her chief complaint is Surgical Followup INFORMANT: The history was obtained from Self HISTORY OF PRESENT ILLNESS: Kings is here today for follow up of FESS/LEFT TM PATCH. Other pertinent ENT HPI: Nasal F/U: Symptom update How many sinus infections since last ENT visit? 0 When was most recent infection: Treated with Antibiotics: No Antibiotics used: Improvement with antibiotics: Duration of antibiotic courses: Symptom update since last visit? Nasal drainage: Improved Nasal congestion: Improved Mouth breathing: Improved Allergy sx (itchy, watery eyes and/or sneezing): Was never a problem Cough: Was never a problem Post-nasal drip: Was never a problem Headaches: Unchanged Nose bleeds: Improved Testing update Allergy testing since last visit? No Any allergies identified? Specific allergens? , Medication update Nasal sprays: Which nasal sprays? No Nasal sprays used: Improvement with these: Nasal saline spray: Yes Improvement with nasal saline spray: Yes Nasal saline rinses: Yes Improvement with nasal rinses: Yes Oral medications: Yes Which oral meds? Claritin (loratadine) Improvement with oral meds: Yes Pertinent Medical/Surgical/Social History, Medications, Allergies: None Pertinent Physical Examination: Vital Signs: Vitals: 05/04/24 1052 Resp: 18 Weight: 83.3 kg (183 lb 10.3 oz) Height: 160.5 cm (63.19 ) Body mass index is 32.34 kg/m . Facility age limit for growth [...] appearing pinna Left EAC: patent Left TM: 20% perforation anterior Nose: Dorsum dorsum midline, no scars or [...] Labs: None Outside medical record review: None [facility] chart review: Previous ENT notes reviewed Discussion of patient care/ tests with other professional/s: No Procedures Performed: None RISK ASSESSMENT:` None Bleeding Risk Score Kings - Bleeding Risk Score: 0 (05/04/2024 8:00 AM) I view the management of the problems encountered in this visit as: Minimal risk of morbidity from additional testing or management Pertinent Social Determinants of Health: n/a VISIT DIAGNOSIS/ASSESSMENT: 1. Perforation of left tympanic membrane PLAN/MANAGEMENT OPTIONS: 6 month F/U May need tympanoplasty- endoscopic documented in this encounter [facility] 05-04-2024 Instructions Milind Suazo RN - 05/04/2024 11:30 AM EST Kings needs to be seen again for a follow-up appointment in the ENT clinic in 6 months. Due to high demand, if your child does not come to his/her scheduled appointment, our clinic may not be able to reschedule your appointment in a timely manner. For all cancellations, please call our Central Scheduling number at [phone] at least 48 hours prior to your scheduled appointment. Department of Otolaryngology (ENT) Patient Instructions ENT Nurse Triage Line: [phone] (Thursday through Thursday 8:00 am - 4:00 pm) Please call the ENT Nurse Triage Line if you need to speak to a nurse for any ENT- related medical concerns prior to your next appointment. [facility] Human Relations Teacher: [phone] (Weekdays after 4:00 pm and on Weekends) If you have urgent ENT concerns for your child after hours that can t wait until our return to the office, please call the hospital drill punch operator and ask to speak to the ENT physician technical solutions director. [facility] Central [phone] (Thursday through Thursday 7:30 am -5:30 pm) Please call Central Scheduling and follow the prompts to schedule an ENT appointment if you did not schedule an appointment today, or if you need to cancel and reschedule a future appointment. For more information about the Department of Otolaryngology (Ear, Nose and Throat) at [facility], please visit our website at: [email or web address] documented in this encounter [facility] 04-28-2024 Telephone encounter Note S/w Pt. Did ear drops yesterday. It was painful in the morning when she used drops for the first time in left ear. [place] and stabbing pain. Also burned left nostril. Stabbing pain when she touched left pinna/conchal bowl. +Muffled hearing. Denies other symptoms including ear drainage, illness symptoms or hearing concersn. Right ear has no problems with the drops. Pt scheduled to f/u next week in 6 days. Discussed that it's OK to stop drops and f/u as scheduled. If symptoms worsen or new symptoms develop, pt to call ENT. PT verbalized understanding. All questions answered. [facility] 04-28-2024 Miscellaneous Notes S/w Pt. Did ear drops yesterday. It was painful in the morning when she used drops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 through [facility] 12/16/19-12/15/20 [id number] (AUGUST) [employer] has approved Rituxan 1000mg every 6 months from 05-26-2018 through 05-25-2019 under PA# [id number] Humira PA approved through [facility] 09/13/18-10/13/19 PA# [id number] (TDS) Humira PA approved through [employer] 06/08/2018-10/06/2018 PA # [id number] (TDS) [employer] has approved Rituxan 1000mg every 6 months from 05-26-2018 through 05-25-2019 under PA# [id number]. Medication will need to be dispensed by [facility] in [place], [place]. As of 12/02/17 Solumedrol does not require a PA tor PreD hrough [employer] for J2920,47291 and 89996 (KH) Ritux approved by [employer] X2 doses from 11/27/17-11/26/18, PA# [id number] (js) Ritux approved by [employer] via ygdj-lj-tijp, PA# [id number], valid 05/26/17 to 05/25/18 (js) Ritux jacinta roved by [employer] after [id number]-kuad review, Valid 11/24/16-05/25/17, PA# [id number] (margarita) As of 06/24/16, no PA or PreD needed for Solumedrol J2930, 30362, 51618 with [employer] (js) Physical Exam Craniofacial: normal The head is noted to be normocephalic. Airway: normal Mallampati Class I. Thyromental distance is more than 3 FB. Dental: normal Cardiovascular: normal Rhythm: regular There is no heart murmur present. Pulmonary: normal There is no cough or rhinorrhea noted. No wheezing is heard. Anesthesia Plan ASA Classification: 3 Anesthesia Type: general. The induction plan includes intravenous. Pre-Medication: emend Informed Consent: The anesthetic plan, risks, benefits and alternatives were discussed with the patient. Anesthesia consent signed. Case review: I reviewed the NPO times and have determined its appropriate to proceed based on the known information and medical needs of the patient. Interim history and data reviewed and updated with changes as noted. I reviewed the chart, evaluated and examined the patient and prescribed the anesthesia plan. documented in this encounter [facility] 03-22-2024 Hospital Discharge instructions Geovanna Lima APN - 03/22/2024 1:03 PM EST ------- ENT HOME INSTRUCTIONS ------- Post Op Sinus Surgery, Nasal Cautery and Left Myringoplasty: Your surgery was done by Dr. Lee. If you have any questions call our clinic at [phone]. What to Expect: - It is normal to have a low grade fever (100-101 F) for 1-3 days. If higher than 101 F call your doctor. - It is common for your child to experience mild nausea/vomiting the first day after surgery. Please call your doctor if vomiting becomes excessive on the first day after surgery. - It is normal to have some nasal congestion and drainage after this surgery. There may be blood present as well; it should not be a large amount. Please watch for: - Any bleeding from the mouth or nose. - Any signs of dehydration such as low urine output, dark urine color, or dry diapers in infants. - If your child has vomiting that lasts more than 12 hours NOSE: - You may use over the counter nasal saline to help with nasal crusting and dryness. - Your child may have a small amount of blood tinged drainage from his or her nose. This is normal. If worrisome, please call your doctor. - You may also use over the counter Afrin for bleeding from nose. Please do not use Afrin for longer than 3 days. - Do not blow your nose and sneeze with your mouth open for 2 weeks after surgery - Please do not bend below the waist for 1 week Ear Care: - Do not use cotton tipped applicators (Q-Tips) to clean your child's ear - Keep all water out of ears by using an ear plug or cotton ball coated heavily in Vaseline placed in the outer most part of the ear canal for 2 weeks after surgery ACTIVITY: School: May return in 3 days Sports Participation: No participation until 7 days after surgery DIET: Patient routine -The most important thing for your child to have after surgery is liquids. Staying well hydrated can help to decrease pain and improve overall recovery. -Some patients have a decreased appetite, but it is very important to continue to drink fluids. -If you have concerns about your child's appetite or the amount of fluid they are drinking, call the ENT clinic. MEDICATIONS: Pain: Tylenol (Acetaminophen) & Motrin (Ibuprofen) as instructed Antibiotic: will be prescribed. Please take medication for the full 7 days. - Ofloxacin Drops - 5 drops to the surgical ear, 2 times a day, starting 7 days before your child's follow-up appointment Levaquin: As Prescribed Saline Amigo: Nasal irrigation 2 times a day until follow-up appointment. If unable to tolerate irrigations you will need to use Nasal Saline spray. Nasal saline spray 3 sprays 3 times a day until follow-up. Nasal ointment/Vaseline Twice per Day for 7 days FOLLOW-UP: Provider Department Center 05/04/2024 11:30 AM Zhou Lee MD ENT Clinic [facility] If you need to speak with a nurse please call the ENT Nurse Triage Line ([phone]). For appointments, please call: Central Scheduling of the ENT clinic . [facility] . Please ask for ENT resident technical solutions director if after hours. documented in this encounter [facility] 03-15-2024 Telephone encounter Note Summary: surgery rescheduled Called Patient to reschedule surgery, now scheduled with Dr Lee in [facility] on 03/22/24. Post op rescheduled. Patient aware of NPO. Consent DOS. Patient had no further questions. [facility] 03-15-2024 Miscellaneous Notes Summary: surgery rescheduled Called Patient to reschedule surgery, now scheduled with Dr Lee in [facility] on 03/22/24. Post op rescheduled. Patient aware of NPO. Consent DOS. Patient had no further questions. documented in this encounter [facility] 03-03-2024 Telephone encounter Note Summary: surgery scheduled Called Patient to schedule surgery with Dr Lee in [facility] on 05/10/24. Post op scheduled. Patient aware of NPO. Consent DOS. Patient had no further questions. [facility] 03-03-2024 Miscellaneous Notes Summary: surgery scheduled Called Patient to schedule surgery with Dr Lee in [facility] on 05/10/24. Post op scheduled. Patient aware of NPO. Consent DOS. Patient had no further questions. documented in this encounter [facility] 02-29-2024 Note REASON FOR EXAM: letha al congestion ;Chronic sinusitis, unspecified location PROCEDURE: CT SINUSES STEALTH WITHOUT CONTRAST COMPARISON: Prior sinus CT dated May 23, 2021. TECHNIQUE: Noncontrast CT of the sinuses was performed. FINDINGS: Postoperative changes from prior endoscopic sinus surgery with bilateral medial antrectomies, uncinatectomies, and partial ethmoidectomies. Decreased, but persistent mucosal thickening of the right maxillary sinus. No air-fluid levels or osseous erosions. There is minimal mucosal thickening within the right frontal sinus and left maxillary sinus. The sphenoid sinuses and residual ethmoid air cells are clear. Mild apex right posterior nasal septal deviation. The mastoid air cells and middle ear cavities are clear. The low-dose technique limits assessment of the intracranial structures. The soft tissues of the face and orbits are normal. [facility] 02-29-2024 Hospital Discharge instructions May Brewer - 02/29/2024 9:30 AM EST Your child received a CT without Contrast today. The results will be made available to the ordering provider. Please follow up with the provider for any questions or concerns. documented in this encounter [facility] 02-29-2024 Note REASON FOR EXAM: letha al congestion ;Chronic sinusitis, unspecified location PROCEDURE: CT SINUSES STEALTH WITHOUT CONTRAST COMPARISON: Prior sinus CT dated May 23, 2021. TECHNIQUE: Noncontrast CT of the sinuses was performed. FINDINGS: Postoperative changes from prior endoscopic sinus surgery with bilateral medial antrectomies, uncinatectomies, and partial ethmoidectomies. Decreased, but persistent mucosal thickening of the right maxillary sinus. No air-fluid levels or osseous erosions. There is minimal mucosal thickening within the right frontal sinus and left maxillary sinus. The sphenoid sinuses and residual ethmoid air cells are clear. Mild apex right posterior nasal septal deviation. The mastoid air cells and middle ear cavities are clear. The low-dose technique limits assessment of the intracranial structures. The soft tissues of the face and orbits are normal. IMPRESSION: 1.Decreased, but persistent mucosal thickening of the right maxillary sinus. 2.Minimal mucosal thickening of the right frontal and left maxillary sinus. 3.Postoperative changes from prior endoscopic sinus surgery. Interpreted by: Yann Phillips MD Signed by: Yann Phillips MD on 02/29/2024 9:[address] [facility] 02-16-2024 Telephone encounter Note Pt called back. Plan reviewed. No further needs at this time. [facility] 02-16-2024 Miscellaneous Notes Pt called back. Plan reviewed. No further needs at this time. Addended by: NAIMA COATES on: 02/16/2024 02:36 PM Modules accepted: Orders Received MedNews message from patient via her son's [employer] due to not being able to access MedNews: Matildeannamarie, I am a patient with Dr Lee as well [place] 2000, for some reason once I got Simmons s mychart it kicked me out of mine. I was told by Dr. Lee once i feel it is needed for my nasal septoplasty and clean out to message and i can get scheduled. I do feel it is needed, i feel i am more congested up more harder to breathe and having increased bloody noses. Is this something I can get scheduled for? Advised patient to contact IS for assistance with mychart. Forwarding message to corporate aircraft mechanic for review. documented in this encounter [facility] 02-16-2024 Note Addended by: NAIMA COATES on: 02/16/2024 02:36 PM Modules accepted: Orders [facility] 02-16-2024 Telephone encounter Note Received mychart message from patient via her son's [employer] due to not being able to access mychart: Kirstin, I am a patient with Dr Lee as well [place] 2000, for some reason once I got Simmons s mychart it kicked me out of mine. I was told by Dr. Lee once i feel it is needed for my nasal septoplasty and clean out to message and i can get scheduled. I do feel it is needed, i feel i am more congested up more harder to breathe and having increased bloody noses. Is this something I can get scheduled for? Advised patient to contact IS for assistance with mychart. Forwarding message to corporate aircraft mechanic for review. [facility] 02-10-2024 History of Present illness Narrative Images from the original note were not included. [place] is a 23 y.o. female presents with chief complaint of Anxiety (Patient has been taking the Sertraline and stated that it seems to be helping. She stated that she is doing good with it. ) HPI: HPI SUBJECTIVE: MEDICATIONS: Current Outpatient Medications Medication Instructions acetaminophen (Tylenol) 325 MG tablet 2 tablets, Every 6 hours PRN albuterol HFA 90 mcg/act inhaler 2 puffs, Inhalation, Every 4 hours PRN docusate sodium (COLACE) 100 mg, Oral, 2 times daily ferrous sulfate (FE TABS) 325 mg, Oral, 2 times daily, Do not crush, chew, or split. ibuprofen 600 mg, Every 6 hours PRN MV-Min-Fe Fum-FA-DHA ( 1 PO) Oral riTUXimab (Rituxan) 100 MG/10ML chemo injection as directed Intravenous sertraline (ZOLOFT) 25 mg, Oral, Daily ustekinumab (STELARA) 90 mg I have reviewed and reconciled the history and medication list with the patient today. REVIEW OF SYMPTOMS: Review of Systems Constitutional: Negative for chills and fatigue. HENT: Negative for ear discharge, ear pain, rhinorrhea and sore throat. Eyes: Negative for pain and redness. Respiratory: Negative for cough and chest tightness. Cardiovascular: Negative for chest pain and palpitations. Gastrointestinal: Negative for abdominal distention and abdominal pain. Genitourinary: Negative for difficulty urinating and frequency. Musculoskeletal: Negative for arthralgias and gait problem. Skin: Negative. Neurological: Negative for dizziness and numbness. Endocrine: Negative. Allergic/Immunologic: Negative. OBJECTIVE: Visit Vitals Wt 189 lb BMI 33.48 kg/m OB Status Unknown Smoking Status Never BSA 1.95 m Physical Exam Vitals reviewed. Cardiovascular: Rate and Rhythm: Normal rate and regular rhythm. Pulses: Normal pulses. Heart sounds: Normal heart sounds. Pulmonary: Effort: Pulmonary effort is normal. Breath sounds: Normal breath sounds. Musculoskeletal: General: Normal range of motion. Skin: General: Skin is warm and dry. Neurological: General: No focal deficit present. Mental Status: She is oriented to person, place, and time. Psychiatric: Attention and Perception: Attention normal. Mood and Affect: Mood normal. Mood is not anxious or depressed. ASSESSMENT AND PLAN: Assessment/Plan Diagnoses and all orders for this visit: Anxiety Stable. Continue on current medications. documented in this encounter [facility] 01-27-2024 History of Present illness Narrative Images from the original note were not included. [place] is a 23 y.o. female presents with chief complaint of Annual Exam HPI: HPI Patient is present for an annual wellness. Patient reports she has been experiencing a lot of fatigue and headaches. She stats she had low iron after she gave in September and had to receive transfusions. SUBJECTIVE: MEDICATIONS: Current Outpatient Medications Medication Instructions acetaminophen (Tylenol) 325 MG tablet 2 tablets, Oral, Every 6 hours PRN albuterol HFA 90 mcg/act inhaler 2 puffs, Inhalation, Every 4 hours PRN docusate sodium (COLACE) 100 mg, Oral, 2 times daily ferrous sulfate (FE TABS) 325 mg, Oral, 2 times daily, Do not crush, chew, or split. ibuprofen 600 mg, Oral, Every 6 hours PRN MV-Min-Fe Fum-FA-DHA ( 1 PO) Oral riTUXimab (Rituxan) 100 MG/10ML chemo injection as directed Intravenous ustekinumab (STELARA) 90 mg, Subcutaneous I have reviewed and reconciled the history and medication list with the patient today. REVIEW OF SYMPTOMS: Review of Systems Constitutional: Negative for chills and fatigue. HENT: Negative for ear discharge, ear pain, rhinorrhea and sore throat. Eyes: Negative for pain and redness. Respiratory: Negative for cough and chest tightness. Cardiovascular: Negative for chest pain and palpitations. Gastrointestinal: Negative for abdominal distention and abdominal pain. Genitourinary: Negative for difficulty urinating and frequency. Musculoskeletal: Negative for arthralgias and gait problem. Skin: Negative. Neurological: Negative for dizziness and numbness. Psychiatric/Behavioral: The patient is nervous/anxious. Endocrine: Negative. Allergic/Immunologic: Negative. OBJECTIVE: Visit Vitals OB Status Unknown Smoking Status Never Physical Exam Vitals reviewed. Constitutional: Appearance: Normal appearance. HENT: Head: Normocephalic. Right Ear: Hearing and tympanic membrane normal. Left Ear: Hearing and tympanic membrane normal. Nose: Nose normal. Right Turbinates: Not enlarged. Left Turbinates: Not enlarged. Right Sinus: No maxillary sinus tenderness or frontal sinus tenderness. Left Sinus: No maxillary sinus tenderness or frontal sinus tenderness. Mouth/Throat: Lips: [place]. Mouth: Mucous membranes are moist. Pharynx: Oropharynx is clear. Uvula midline. Tonsils: No tonsillar exudate. Eyes: General: Lids are normal. Vision grossly intact. Gaze aligned appropriately. Extraocular Movements: Extraocular movements intact. Conjunctiva/sclera: Conjunctivae normal. Neck: Thyroid: No thyroid mass or thyromegaly. Vascular: No carotid bruit. Trachea: Trachea normal. Cardiovascular: Rate and Rhythm: Normal rate and regular rhythm. Pulses: Normal pulses. Heart sounds: Normal heart sounds. Pulmonary: Effort: Pulmonary effort is normal. Breath sounds: Normal breath sounds and air entry. Abdominal: General: Abdomen is flat. Bowel sounds are normal. Palpations: Abdomen is soft. Musculoskeletal: Cervical back: Full passive range of motion without pain, normal range of motion and neck supple. Lymphadenopathy: Cervical: No cervical adenopathy. Skin: General: Skin is warm. Capillary Refill: Capillary refill takes less than 2 seconds. Neurological: Mental Status: She is alert and oriented to person, place, and time. Sensory: Sensation is intact. Motor: Motor function is intact. Coordination: Coordination is intact. Psychiatric: Attention and Perception: Attention and perception normal. Mood and Affect: Mood and affect normal. Speech: Speech normal. Behavior: Behavior is cooperative. Thought Content: Thought content normal. ASSESSMENT AND PLAN: Assessment/Plan Diagnoses and all orders for this visit: Encounter for wellness examination in adult - Comprehensive metabolic panel; Future - CBC and differential; Future - TSH W/REFLEX TO FT4; Future Wellness performed at today. Height, weight, BMI, problem list, and immunizations records reviewed. Adalimumab (Humira) long-term use-stable follows with GI At risk for infection due to immunosuppression Chronic sinusitis, unspecified location-stable Crohn's disease of both small and large intestine without complication (CMS/HCC)-stable follows with GI Encounter for monitoring rituximab therapy Gastroesophageal reflux disease without esophagitis - Comprehensive metabolic panel; Future Chronic intractable headache, unspecified headache type Hypogammaglobulinemia (CMS/HCC) Immunocompromised patient (CMS/HCC) Immunodeficiency (CMS/HCC) IgG1 deficiency (CMS/HCC) Microcytic anemia - CBC and differential; Future - Iron + transferrin + TIBC; Future Pulmonary nodules-stable S/P small bowel resection-stab;e Tension headache Alopecia areata Vitamin D deficiency - Vitamin D 25 hydroxy; Future Psoriasis (CMS/HCC) Immunosuppressed status (CMS/HCC) Other fatigue - TSH W/REFLEX TO FT4; Future - Vitamin B12; Future Anxiety - sertraline (Zoloft) 25 MG tablet; Take 1 tablet (25 mg) by mouth Daily return in 2 weeks for receck Obesity (BMI 30.0-34.9) Crohn's disease of both small and large intestine with unspecified complications (CMS/HCC) documented in this encounter [facility] 11-18-2023 Nurse Note Patient to PACU from Endo OR. Resting comfortably and quietly in bed. Vitals continued. IV dry/intact with fluid therapy. Received report from Endo OR STAFF. Patient states readiness for discharge. Per anesthesia and this bedside RN's evaluation, patient is appropriate for discharge. Reviewed AVS, ProVation sheet/images, discharge instructions, follow-up appointment, and when to call the office with patient and patient's support person. All questions answered, peripheral IV access removed per protocol. Patient escorted by [facility] staff member via wheelchair to private vehicle for departure from facility. documented in this encounter [facility] 11-18-2023 Nurse Surgical operation note Patient to PACU from Endo OR. Resting comfortably and quietly in bed. Vitals continued. IV dry/intact with fluid therapy. Received report from Endo OR STAFF. Patient states readiness for discharge. Per anesthesia and this bedside RN's evaluation, patient is appropriate for discharge. Reviewed AVS, ProVation sheet/images, discharge instructions, follow-up appointment, and when to call the office with patient and patient's support person. All questions answered, peripheral IV access removed per protocol. Patient escorted by [facility] staff member via wheelchair to private vehicle for departure from facility. [facility] 11-18-2023 History and physical note ENDOSCOPIC PREPROCEDURE HISTORY AND PHYSICAL HISTORY OF PRESENT ILLNESS: Kings Hatfield is a 23 y.o. female seen in the preoprocedure area at [facility]. The indication for endoscopic evaluation includes: 1. Crohn's disease of both small and large intestine with complication . Taking UST (ustekinumab/Stelara) q8w, next dose due tomorrow. 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, adalimumab) Pulmonary nodule 09/01/2023 Pulmonary nodules SURGICAL HISTORY: Past Surgical History: Procedure Laterality Date SECTION 09/03/2023 APPENDECTOMY COLECTOMY partial TONSILLECTOMY ADENOIDECTOMY MEDICATIONS: Current Outpatient Medications Medication Instructions Acetaminophen 325 MG tablet 2 tablets, Oral, EVERY 6 HOURS PRN cholecalciferol (VITAMIN D3) 2,000 Units, Oral, DAILY Vit-Fe Fumarate-FA ( PO) Oral Ustekinumab (STELARA) 90 mg, Subcutaneous, EVERY 8 WEEKS Current Outpatient Medications: Acetaminophen 325 MG tablet, Take 2 tablets by mouth Every 6 hours as needed., Disp: , Rfl: cholecalciferol 50 MCG (2000 UNIT) tablet, Take 1 tablet by mouth daily., Disp: 90 tablet, Rfl: 3 Vit-Fe Fumarate-FA ( PO), Take by mouth., Disp: , Rfl: Ustekinumab 90 MG/ML Solution Prefilled Syringe injection, Inject 1 mL under the skin every 56 days., Disp: 1 mL, Rfl: 6 Current Facility-Administered Medications: Lactated ringers IV solution, , Intravenous, Continuous, Sharath Lambert MD, Last Rate: 20 mL/hr at 11/18/23 0956, New Bag at 11/18/23 0956 Sodium chloride 0.9% IV solution, , Intravenous, Continuous, Sharath Lambert MD ALLERGIES: Allergies Allergen Reactions Cefdinir Anaphylaxis and [...] Magdalene Syndrome Other Reaction(s): Magdalene Syndrome, Unknown FOCUSED REVIEW OF SYSTEMS: Patient denies melena, hematochezia or hematemesis (unless as detailed in HPI.) Patient denies intractable vomiting, yellowing of eyes or skin, odynophagia, excessive belching, significant fecal incontinence. VITAL SIGNS: Vitals: 11/18/23 0953 BP: 135/86 Pulse: 80 Resp: 22 Temp: 99.3 degrees F (37.4 degrees C) Weight: 84.4 kg (186 lb 1.6 oz) Height: 1.6 m (5' 3 ) PREPROCEDURE PHYSICAL EXAM: AIRWAY: Mallampati: Class II (complete visualization of the uvula) HEART: RRR PULMONARY: Normal respiratory effort and rate, no respiratory distress, no wheezes, no accessory muscle use, or nasal flaring, ABDOMEN: Soft, nontender, nondistended ASSESSMENT: Kings Hatfield is a 23 y.o. female is ready for the planned procedure. ASA Class: ASA 2 - Patient with mild systemic disease with no functional limitations PLAN: Will plan to proceed with using Monitored Anesthesia Care. Sharath Lambert MD [facility] Work Phone: 11-18-2023 History and physical note ENDOSCOPIC PREPROCEDURE HISTORY AND PHYSICAL HISTORY OF PRESENT ILLNESS: Kings Hatfield is a 23 y.o. female seen in the preoprocedure area at [facility]. The indication for endoscopic evaluation includes: 1. Crohn's disease of both small and large intestine with complication . Taking UST (ustekinumab/Stelara) q8w, next dose due tomorrow. 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, adalimumab) Pulmonary nodule 09/01/2023 Pulmonary nodules SURGICAL HISTORY: Past Surgical History: Procedure Laterality Date SECTION 09/03/2023 APPENDECTOMY COLECTOMY partial TONSILLECTOMY ADENOIDECTOMY MEDICATIONS: Current Outpatient Medications Medication Instructions Acetaminophen 325 MG tablet 2 tablets, Oral, EVERY 6 HOURS PRN cholecalciferol (VITAMIN D3) 2,000 Units, Oral, DAILY Vit-Fe Fumarate-FA ( PO) Oral Ustekinumab (STELARA) 90 mg, Subcutaneous, EVERY 8 WEEKS Current Outpatient Medications: Acetaminophen 325 MG tablet, Take 2 tablets by mouth Every 6 hours as needed., Disp: , Rfl: cholecalciferol 50 MCG (2000 UNIT) tablet, Take 1 tablet by mouth daily., Disp: 90 tablet, Rfl: 3 Vit-Fe Fumarate-FA ( PO), Take by mouth., Disp: , Rfl: Ustekinumab 90 MG/ML Solution Prefilled Syringe injection, Inject 1 mL under the skin every 56 days., Disp: 1 mL, Rfl: 6 Current Facility-Administered Medications: Lactated ringers IV solution, , Intravenous, Continuous, Sharath Lambert MD, Last Rate: 20 mL/hr at 11/18/23 0956, New Bag at 11/18/23 0956 Sodium chloride 0.9% IV solution, , Intravenous, Continuous, Sharath Lambert MD ALLERGIES: Allergies Allergen Reactions Cefdinir Anaphylaxis and [...] Magdalene Syndrome Other Reaction(s): Magdalene Syndrome, Unknown FOCUSED REVIEW OF SYSTEMS: Patient denies melena, hematochezia or hematemesis (unless as detailed in HPI.) Patient denies intractable vomiting, yellowing of eyes or skin, odynophagia, excessive belching, significant fecal incontinence. VITAL SIGNS: Vitals: 11/18/23 0953 BP: 135/86 Pulse: 80 Resp: 22 Temp: 99.3 degrees F (37.4 degrees C) Weight: 84.4 kg (186 lb 1.6 oz) Height: 1.6 m (5' 3 ) PREPROCEDURE PHYSICAL EXAM: AIRWAY: Mallampati: Class II (complete visualization of the uvula) HEART: RRR PULMONARY: Normal respiratory effort and rate, no respiratory distress, no wheezes, no accessory muscle use, or nasal flaring, ABDOMEN: Soft, nontender, nondistended ASSESSMENT: Kings Hatfield is a 23 y.o. female is ready for the planned procedure. ASA Class: ASA 2 - Patient with mild systemic disease with no functional limitations PLAN: Will plan to proceed with using Monitored Anesthesia Care. Sharath Lambert MD documented in this encounter [facility] 08-06-2023 History of Present illness Narrative Patient [...] and treatment Crohn's Disease - diagnosed at [facility] 2011. Therapy has included 6MP, infliximab, stopped due to severe scalp psoriasis), vedolizumab, ustekinumab, adalimumab. She underwent ileocecal resection in 03/2016. Most recent colonoscopy was in 2019. 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 See imaging and biopsy results below. Therapy has included methylprednisolone pulses, methotrexate [id number] (with interruptions; stopped due to inefficacy and frequent infections), rituximab x 2 11/2016, 11/2017, 12/2018, 01/2020, 01/2021, 12/2021. Difficult course with multiple admissions for management of this problem. Psoriasis - diagnosed at [facility] - developed psoriasis of scalp while taking infliximab Hidradenitis suppurativa - diagnosed at [facility]; primarily treated with topical therapies. Pulmonary nodules [...] tight but is not painful. Current providers: [employer]: Alfredo Duong CNM MFM: Dr. Ruchi Carmona Pulmonary: Dr. Xiomara Zurita IBD: Teresa Peterson ENT: Dr. Lee at [facility] Ophtho: need to confirm Does not have [...] 08/06/2023 5.36 <10.00 mg/L Final Previous labs: KAAL 1:320 08/07/14; normal/negative C3, C4, anticardiolipin antibodies, [...] viral inclusions seen. IMAGING MRI orbits 07/31/2014 ([facility]): TECHNICAL COMMENTS Contrast Type: Optiray 320 Contrast [...] is noted. This is best seen on bottle capping machine operator CT of the brain as the contrast [...] ABDOMEN: Grossly normal. CT chest no contrast [facility] 04/19/2020 REASON FOR EXAM: immune suppression, patient [...] nodules as described above. Bone density 09/16/2018 ([facility]) normal for debo Assessment: Kings Hatfield is [...] visit need to confirm primary care provider, car retarder operator Follow up: I will see her for a 6 week video visit - she was instructed to contact me sooner if problems Addendum: External ultrasound of doppler of LLE was negative for DVT documented in this encounter [facility] 08-06-2023 Instructions Christine Mckeon MD - 08/06/2023 12:00 PM EDT Nice to see you today! Please have ultrasound done of left leg within 24 hours either at [facility] or [facility] documented in this encounter [facility] 08-06-2023 History of Present illness Narrative Images from the original note were not included. [facility] Chief Complaint Patient [...] told Crohn's moved to mouth. Went to [employer] [employer] and this stopped working. On Rituximab for [...] surgical history: Ileocectomy 2016 Current therapy: Stelara [id number] Past therapy: Infliximab(stopped due to severe scalp [...] Resource Strain: Low Risk (02/09/2023) Received from [facility] Overall Financial Resource Strain (CARDIA) Difficulty of Paying Living Expenses: Not hard at all Food Insecurity: No Food Insecurity (04/24/2023) Received from [facility] Hunger Screening Within the past 12 months we worried whether our food would run out before we got money to buy more.: Never True Within the past 12 months the food we bought just didn't last and we didn't have money to get more.: Never True Transportation Needs: No Transportation Needs (02/09/2023) Received from [facility] PRAPARE - Transportation Lack of Transportation (Medical): No Lack of Transportation (Non-Medical): No Physical Activity: Sufficiently Active (02/09/2023) Received from [facility] Exercise Vital Sign Days of Exercise per Week: 6 days Minutes of Exercise per Session: 40 min Stress: No Stress Concern Present (02/09/2023) Received from [facility] [employer] - Occupational Stress Questionnaire Feeling of Stress : Not at all Social Connections: Moderately Isolated (02/09/2023) Received from [facility] Social Connection and Isolation Panel [NHANES] Frequency of Communication with Friends and Family: More than three times a week Frequency of Social Gatherings with Friends and Family: Twice a week Attends Congregation Services: Never Active Member of Clubs or Organizations: No Attends Club or Organization Meetings: Never Marital Status: Living with partner Intimate Partner Violence: Not At Risk (02/09/2023) Received from [facility] Humiliation, Afraid, Rape, and Kick questionnaire Fear of Current or Ex-Partner: No Emotionally Abused: No Physically Abused: No Sexually Abused: No Housing Stability: Low Risk (02/09/2023) Received from [facility] Housing Stability Vital Sign Unable to Pay [...] STUDIES: Relevant radiology studies were reviewed in [facility] IMPRESSION: Kings Hatfield is a 22 y.o. female w/ PMH Ileocolonic Crohn's disease s/p ileocectomy 2016 on Stelara [id number], orbital myositits, psoriasis, chronic sinusitis here to [...] and . documented in this encounter [facility] 08-06-2023 Instructions DANIKA Cornelius - 08/06/2023 10:00 AM EDT - Continue Stelara every 8 weeks - Baby no live vaccines for 6 months (rotavirus) - Stool calprotectin - Will follow up with Rheumatology for orbital myositis - Will obtain colonoscopy next March - RTC 3 months documented in this encounter [facility] 04-24-2023 History of Present illness Narrative Headache/epigastric pain/blurry vision/swelling? No Cramping/contractions? No Abnormal vaginal discharge? No Spotting/vaginal bleeding? No Loss of fluid like your water may have broken? No Cats in the home? No Do you change the litter box? N/A Flu vaccine? No Genetic testing done this here or other office?Yes Have you been seen here at [facility] in a previous ? No Recent ER visits or hospitalizations? No Bring blood sugar log or meter with you today? (Please bring them with you for every visit at [facility]) N/A Traveled outside the country in [...] Maternal Crohn's disease affecting in second trimester ([place]). Diagnoses of History of chronic ulcerative colitis and 19 weeks gestation of were also pertinent to this visit. She has had low risk aneuploidy screen for select aneuploidy of chromosomes 21, 13, 18 and sex chromosomes. Review of systems: Review of systems was noncontributory Complications: Problem List Items Addressed This Visit None Visit Diagnoses Maternal Crohn's disease affecting in second trimester ([facility]) - Primary History of chronic ulcerative colitis 19 weeks gestation of PMH: Past Medical History: Diagnosis Date Anemia Crohn's disease ([facility]) GERD (gastroesophageal reflux disease) Myositis Peptic ulcer [...] Maternal Crohn's disease affecting in second trimester ([facility]) 2. History of chronic ulcerative colitis Kings [...] Crohn's disease s/p ileocectomy 2016 on Stelara [id number], orbital myositits, psoriasis, chronic sinusitis Per gastroenterology: PLAN/RECOMMENDATIONS: -Chem 6 and LFT's ordered -CRP and stool calprotectin -Quantiferon TB, TPMT and chronic hepatitis panel ordered -Some nutrition labs ordered -UST level ordered -Continue Stelara every 8 weeks. Will plan for Stelara to be given 8 weeks or so prior to delivery and then shortly after. Following with manager highway -Will follow up with Rheumatology for orbital [...] Maternal Crohn's disease affecting in second trimester ([facility]) [O99.612, K50.90] Recommendations: Follow-up detailed anatomic evaluation in 4 weeks Serial growth assessments every 4 weeks after the anatomy scan Follow-up with GI at [facility] Recommend obtaining thyroid function tests Delivery recommended at or after 39-40 weeks, earlier as clinically indicated Plan reviewed with patient. She vocalized understanding all questions answered. The patient is to continue with routine care in your office [facility], the CDC, and other organizations representing maternal and public health professionals recommend that , , and lactating people and those considering receive the COVID-19 vaccination. Vaccination is the best method to reduce maternal and complications of SARS-CoV-2 infection. This document was created with [employer] technology. Though I make every effort to review the dictation as it is transcribed, on occasion the spoken word can be misinterpreted by the technology leading to inappropriate words, phrases, or sentences. This note is addressed to the requesting provider as a consultation for clinical guidance. Specific medical abbreviations are occasionally used and those are generally approved by the [place]?Board of?Obstetrics and?Gynecology?as well as?[place] s abbreviations. The above plan of care was based solely on the diagnoses for which a consultation was requested. ?More frequent testing may be indicated based on her other medical/obstetrical conditions. The management of other or medical conditions is beyond the scope of requested consultation and will continue to be followed by the primary rag room supervisor or primary care provider. Thank you for [...] procedures Referring and communicating with other health respiratory care practitioner (not separately reported) Documenting clinical information in the electronic or other health record Independently interpreting results (not separately reported) and communicating results to the patient/family/caregiver Care coordination (not separately reported) documented in this encounter [facility] [place] [facility] 04-03-2023 History of Present illness Narrative MA to room to draw Anser UST- red serum tube Pt identified with name and 1 attempt made in right Antecubital fossa- success Excessive Bleeding or Bruising at draw site: no documented in this encounter [facility]23 Telephone encounter Note Noted. Pete Jaramillo [facility] 03-03-2023 Miscellaneous Notes Noted. Pete Jaramillo Spoke with Kings. She has established care w/[facility]. She has appoints (at [facility]) in March and April. placed on chart. documented in this encounter [facility] 03-03-2023 Telephone encounter Note Spoke with Kings. She has established care w/[facility]. She has appoints (at [facility]) in March and April. placed on chart. [facility] 02-25-2023 History of Present illness Narrative [facility] Chief Complaint Patient presents with New Patient : 22 y.o. female sent in consultation by Javier Arriola MD for evaluation of Crohn's disease. [...] told Crohn's moved to mouth. Went to [employer] [employer] and this stopped working. On Rituximab for [...] IBD history Diagnosed (age): 10 Disease distribution: [address] Classification: CD: A1 <16, L3 ileocolonic GI surgical history: Ileocectomy 2016 Current therapy: Stelara [id number] Past therapy: Infliximab(stopped due to severe scalp [...] Crohn's disease s/p ileocectomy 2016 on Stelara [id number], orbital myositits, psoriasis, chronic sinusitis here to [...] delivery and then shortly after. Following with manager highway -Will follow up with Rheumatology for orbital [...] DEXA-Assess in future - Smoking status: non-smoker Kye Solis MD Division of Gastroenterology, Hepatology, and Nutrition Pager:[phone] This MA verified patients name and . documented in this encounter [facility] 02-25-2023 Instructions Kye Solis MD - 02/25/2023 1:00 PM EST Thank you for coming to [facility] Gastroenterology, Hepatology, and Nutrition. It was a pleasure to see you today. Your doctor was Dr. Kye Solis. The following are your instructions: It was [...] will either call you, send you a [employer] message, or mail you a letter with the results of your tests within 1-2 weeks after you have completed your tests. If you do not hear from our office, please call the clinic to receive your results at [phone]. If you need to fax old records in, please fax to [phone]. --------- If you have any concerning symptoms, please seek immediate medical attention. documented in this encounter [facility] 01-26-2023 Hospital Discharge instructions Zhou lAy MD - 01/26/2023 11:16 AM EDT It was a pleasure seeing Kings today. Have a ferritin checked in 3-4 months to ensure no need for iron infusion. We will work on finding an adult Certified Nurse Practitioner to follow with at [facility]. Hematology Clinic Patient Instructions Please call if you have any questions or concerns about your child's care during the hours of 8-5 Thursday through Thursday. After 5PM on weekdays or on weekends please call the hospital drill punch operator and ask for the car retarder operator technical solutions director. documented in this encounter [facility] 01-26-2023 History of Present illness Narrative Informant: self mother Patient is a 22yo her for f/u recurrent sinusitis. History turbs and sinus surgery 03/20/22. Doing well. [facility] PEDIATRIC OTOLARYNGOLOGY FOLLOW UP VISIT NOTE Chey Aragon MD [address] [place] [address] Kings Hatfield is a 22 year female [...] Labs: None Outside medical record review: None [facility] chart review: Previous ENT notes reviewed Discussion [...] OPTIONS: F/U PRN documented in this encounter [facility] 01-26-2023 Instructions Milind Suazo RN - 01/26/2023 10:00 AM EDT You do not need to schedule an ENT office visit at this time but we are happy to see you in the future for any additional ENT concerns. Please call Central Scheduling at [phone] and follow the prompts to schedule an ENT office visit should you need a future appointment in the ENT clinic. Call us at [phone] to speak to a nurse if you should have any additional ENT- related questions or concerns after today s visit. Department of Otolaryngology (ENT) Patient Instructions ENT Nurse Triage Line: [phone] (Thursday through Thursday 8:00 am - 4:00 pm) Please call the ENT Nurse Triage Line if you need to speak to a nurse for any ENT- related medical concerns prior to your next appointment. [facility] Human Relations Teacher: [phone] (Weekdays after 4:00 pm and on Weekends) If you have urgent ENT concerns for your child after hours that can t wait until our return to the office, please call the hospital drill punch operator and ask to speak to the ENT physician technical solutions director. [facility] Central [phone] (Thursday through Thursday 7:30 am -5:30 pm) Please call Central Scheduling and follow the prompts to schedule an ENT appointment if you did not schedule an appointment today, or if you need to cancel and reschedule a future appointment. For more information about the Department of Otolaryngology (Ear, Nose and Throat) at [facility], please visit our website at: [email or web address] documented in this encounter [facility] 01-26-2023 History of Present illness Narrative Self-Management [...] of disease: Problem List: 1. Crohn's Disease: [facility]- GI. S/p enteral diet, s/p Infliximab (d/c'd [...] bursitis. She had an adjustment with an job trainer. She has been given stretches. She uses KT tape. She has the most difficulty with sleep. Ice helps on occasion. She is 7 weeks . She has an appointment with a manager highway/GYN in the next couple of weeks. She [...] Patient Global: 0 mm Provider Global: -- ADAS 10: -- Tests/ External Records Reviewed: I reviewed this information: Diagnostic Labs Toxicity Monitoring Labs Inflammatory Markers MRI Pathology reports Latest Reference Range & Units Most Recent (1,3)-GAGE-M-EPZUIO pg/mL <31 04/15/19 21:20 (1,3)-AHBR-M-UEJIQC INTERP Negative Negative 04/15/19 21:20 ALBUMIN, CSF [...] AB TITER (IFA) NEG^Negative Negative 08/07/14 05:48 TOMY-STUDIO MUSICIAN NEG^Negative Negative 08/07/14 05:48 TOMY-SM NEG^Negative Negative [...] appropriate to have her see an adult physician support coordinator in the case of a flare as [...] and Guidance: 1. Will refer to Dr. Mckeon at [facility]. 2. Will hold off on rituximab since you are doing well. 3. Could ultrasound your hip if it bothered you more. 4. Stretches can be very helpful. Follow-up: Follow-up at [facility] with Dr. Mckeon documented in this encounter [facility] 01-26-2023 Instructions Ioana Otero MD - 01/26/2023 8:15 AM EDT Discussion and Guidance: 1. Will refer to Dr. Mckeon at [facility]. 2. Will hold off on rituximab since you are doing well. 3. Could ultrasound your hip if it bothered you more. 4. Stretches can be very helpful. Follow-up: Follow-up at [facility] with Dr. Mckeon How to reach Rheumatology 1. Sign up for [employer] to use a secure e-mail system for non-urgent issues (this is NOT checked on weekends). 2. For medical questions between 8 am - 4 pm, call our nurse line at [phone] option 2. 3. For medical questions at night, over the weekend or a holiday, call the hospital drill punch operator at [phone] and ask to talk to the Manager Development. 4. To schedule or change an appointment, call Central Scheduling at [phone], press option 4, then option 7. 5. For other nonmedical questions, call a executive legal secretary at [phone], option 4. 6. If you cannot reach a person and need information the same day, call the hospital drill punch operator at [phone] and ask to talk to the Manager Development technical solutions director. documented in this encounter [facility] 01-21-2023 Telephone encounter Note Received fax from [facility]. Printed and placed on Dr. Otero's door for review and/or signature. [facility] 01-21-2023 Miscellaneous Notes Received fax from [facility]. Printed and placed on Dr. Otero's door for review and/or signature. documented in this encounter [facility] 01-09-2023 Telephone encounter Note Pharmacy Note Reviewed medications for risk: -Rituximab: last dose received 01/2022. Will review registry data with primary rheumatology team. Per ACR guidelines, risk of B cell depletion if dosed in second half of . -Stelara (managed by GI): Dr. Agee recommended continuing with the January dose. Plans to then transition to adult insole doubler [facility] 01-09-2023 Miscellaneous Notes Pharmacy Note Reviewed medications for risk: -Rituximab: last dose received 01/2022. Will review registry data with primary rheumatology team. Per ACR guidelines, risk of B cell depletion if dosed in second half of . -Stelara (managed by GI): Dr. Agee recommended continuing with the January dose. Plans to then transition to adult insole doubler Received incoming call that Kings is . Diagnosis Orbital myositis Primary Manager Development Ioana Otero How did patient find out about Home test Date of last menses 12/08/2022 Last dose of each teratogenic medication (methotrexate, leflunomide, cyclophosphamide, NSAID, ACEi) N/a - no recent NSAID's Do you have appt with [employer]? Yes, date of appt 02/04/2023 If underage, is family aware? N/A - mom is aware Best phone number for follow up [phone] Is it okay to leave message on preferred phone? Yes Recommendations for patient: 1. Hold teratogenic medication (methotrexate, leflunomide, cyclophosphamide, NSAID, ACEi) 2. Do not stop hydroxychloroquine or prednisone (if applicable) 3. Start vitamin 4. Follow up with other prescribers/clinics to evaluate non-rheumatology medications Recommendation for nurses: Notify team : Primary physician support coordinator, Christine Hernandes Recommendations for providers: 1. Order serum test, if needed 2. Further evaluate current medications 3. Refer to [facility], if needed 4. Follow up with patient within 24 hours Patient is in the process of informing all [facility] specialists. She has talked to GI and received guidance. She is taking a vitamin. Ideally Kings would like to keep her October follow-ups here at [facility] and then transition to adult rheum/GI closer to home. Dr. Otero/Geovanna please advise documented in this encounter [facility] 01-09-2023 Telephone encounter Note Received incoming call that Kings is . Diagnosis Orbital myositis Primary Manager Development Ioana Otero How did patient find out about Home test Date of last menses 12/08/2022 Last dose of each teratogenic medication (methotrexate, leflunomide, cyclophosphamide, NSAID, ACEi) N/a - no recent NSAID's Do you have appt with [employer] [employer]? Yes, date of appt 02/04/2023 If underage, is family aware? N/A - mom is aware Best phone number for follow up [phone] Is it okay to leave message on preferred phone? Yes Recommendations for patient: 1. Hold teratogenic medication (methotrexate, leflunomide, cyclophosphamide, NSAID, ACEi) 2. Do not stop hydroxychloroquine or prednisone (if applicable) 3. Start vitamin 4. Follow up with other prescribers/clinics to evaluate non-rheumatology medications Recommendation for nurses: Notify team : Primary physician support coordinator, Christine Hernandes Recommendations for providers: 1. Order serum test, if needed 2. Further evaluate current medications 3. Refer to [facility], if needed 4. Follow up with patient within 24 hours Patient is in the process of informing all [facility] specialists. She has talked to GI and received guidance. She is taking a vitamin. Ideally Kings would like to keep her October follow-ups here at [facility] and then transition to adult rheum/GI closer to home. Dr. Otero/Geovanna please advise [facility] 12-26-2022 Telephone encounter Note TP updated, flagged ready for PA. [facility] 12-26-2022 Miscellaneous Notes TP updated, flagged ready [...] needed. Thank you! documented in this encounter [facility] 12-26-2022 Telephone encounter Note Rituximab added back into the therapy plan. [facility] Work Phone: 12-23-2022 Telephone encounter Note Signed. Thank you. [facility] 12-23-2022 Miscellaneous Notes Signed. Thank you. Stelara refill request received from pharmacy. Pended for review. OV scheduled for 02/18/23. Labs recently ordered to be obtained before the visit. documented in this encounter [facility] 12-23-2022 Telephone encounter Note Stelara refill request received from pharmacy. Pended for review. OV scheduled for 02/18/23. Labs recently ordered to be obtained before the visit. [facility] 12-19-2022 Telephone encounter Note Informed by Geovanna Centeno with SP that Ritux no longer in TP. Dr. Otero please re-add medication/update TP, and inform nursing when complete. Then will update SP to re-PA. Thank you! [facility] 12-19-2022 Telephone encounter Note Sent referral back to Pharmacy PA for Infusions Team via WQ to be re-authorized. Dr. Otero FYGill only (nothing needed from you at this time- will alert you with any issues with the PA) [facility] 12-18-2022 History of Present illness Narrative Prior Authorization for Specialty Medication Clinic: GI Diagnosis: K50.819 - Crohns Medication name: Stelara Medication dose: 90mg Medication frequency: Every 8 weeks Reason for PA: Renewal Kings's Prior Authorization has been APPROVED. Insurance #1: [facility] PA Type: Pharmacy PA Status: Approved Approved from: 12/18/22 Approved to: 12/18/23 PA #: [id number] Filling Pharmacy: Other ([facility]) Prior Authorization for Specialty Medication Clinic: GI Diagnosis: K50.819 - Crohns Medication name: Stelara Medication dose: 90mg Medication frequency: Every 8 weeks Reason for PA: Renewal Kings'antonia Prior Authorization has been SUBMITTED. Insurance #1: [facility] PA Type: Pharmacy PA Status: Submitted Information submitted: Office Note Method of submission : CoverMyMeds documented in this encounter [facility] 12-17-2022 Telephone encounter Note Per encounter dated [...] SP to PA if needed. Thank you! [facility] 11-21-2022 Telephone encounter Note Pt called to change yearly followup appointment to a different day in order to line up with other appointments due to having a long commute. Pt rescheduled for 01/[address] Aly. [facility] 11-21-2022 Miscellaneous Notes Pt called to change yearly followup appointment to a different day in order to line up with other appointments due to having a long commute. Pt rescheduled for 01/[address] Aly. documented in this encounter [facility] 09-24-2022 Telephone encounter Note Patient called back to schedule 01-05-23 elissa lee, post op made, pt aware of pat call [facility] Work Phone: 09-24-2022 Miscellaneous Notes Patient called back to schedule 01-05-23 elissa lee, post op made, pt aware of pat call documented in this encounter [facility] 09-04-2022 History of Present illness Narrative Per [facility] RPS Letter #9, [facility] requested clinicals be sent. Clinicals sent via fax on 09.03.2022. documented in this encounter [facility] 07-16-2022 History of Present illness Narrative Faxed [facility] reapplication to [phone]. Scanned into the chart. documented in this encounter [facility] 05-05-2022 History of Present illness Narrative [place] [address] 21 year old female here today for post op. 03/20/2022 Turbinate and sinus surgery. Saline rinses and flonase prn. No new concerns. [facility] PEDIATRIC OTOLARYNGOLOGY FOLLOW UP VISIT NOTE [place] [address] [address] [place] [address] Kings Hatfield is a 21 year female [...] Labs: None Outside medical record review: None [facility] chart review: Previous ENT notes reviewed Discussion [...] OPTIONS: F/U PRN documented in this encounter [facility] 05-05-2022 Instructions Yoana Farrar RN - 05/05/2022 11:30 AM EST Department of Otolaryngology (ENT) Patient Instructions ENT Nurse Triage Line: [phone] (Thursday through Thursday 8:00 am - 4:00 pm) Please call the ENT Nurse Triage Line if you need to speak to a nurse for any ENT- related medical concerns prior to your next appointment. [facility] Human Relations Teacher: [phone] (Weekdays after 4:00 pm and on Weekends) If you have urgent ENT concerns for your child after hours that can t wait until our return to the office, please call the hospital drill punch operator and ask to speak to the ENT physician technical solutions director. [facility] Central [phone] (Thursday through Thursday 7:30 am -5:30 pm) Please call Central Scheduling and follow the prompts to schedule an ENT appointment if you did not schedule an appointment today, or if you need to cancel and reschedule a future appointment. For more information about the Department of Otolaryngology (Ear, Nose and Throat) at [facility], please visit our website at: [email or web address] You do not need to schedule an ENT office visit at this time but we are happy to see you in the future for any additional ENT concerns. Please call Central Scheduling at [phone] and follow the prompts to schedule an ENT office visit should you need a future appointment in the ENT clinic. Call us at [phone] to speak to a nurse if you should have any additional ENT- related questions or concerns after today s visit. documented in this encounter [facility] 04-08-2022 Telephone encounter Note Telephone Follow-Up Excision [...] parents / patient has concerns: No concerns [facility] 04-08-2022 Miscellaneous Notes Telephone Follow-Up Excision of [...] concerns: No concerns documented in this encounter [facility] 03-18-2022 Telephone encounter Note Status denied. A possible peer to peer review with ENT is possible. Awaiting to hear from them [facility] 03-18-2022 Miscellaneous Notes Status denied. A possible peer to peer review with ENT is possible. Awaiting to hear from them Status checked at this time, denied Submitted appeal, ID is [id number] Received denial on [employer] web portal. Spoke with hospital sales representative on the phone and was told to fax clinicals for reconsideration. Clinicals faxed to [phone]. Authorization pending via [employer] portal. Pediatric Surgery Pre-Schedule/Certification Information Patient Information: Name: Kings Hatfield Date of : 2000 Case and Schedule Information: Surgeon: Dr. Lakisha Narayan Case: ENT Admit Type: OP Location: OR CPT: 73012 Procedure or Exam Description: EXCISION OF SKIN AND SUBCUTANEOUS TISSUE ICD10 Code: L 72.3 Scheduled Date: 03/20/22 documented in this encounter [facility] 03-14-2022 Telephone encounter Note Status checked at this time, denied Submitted appeal, ID is [id number] [facility] 03-11-2022 Telephone encounter Note Received denial on [employer] web portal. Spoke with hospital sales representative on the phone and was told to fax clinicals for reconsideration. Clinicals faxed to [phone]. [facility] 02-27-2022 Telephone encounter Note Authorization pending via [employer]. [facility] 02-06-2022 Telephone encounter Note Pediatric Surgery Pre-Schedule/Certification Information Patient Information: Name: Kings Hatfield Date of : 2000 Case and Schedule Information: Surgeon: Dr. Lakisha Narayan Case: ENT Admit Type: OP Location: OR CPT: 41849 Procedure or Exam Description: EXCISION OF SKIN AND SUBCUTANEOUS TISSUE ICD10 Code: L 72.3 Scheduled Date: 03/20/[address] [facility] 08-06-2021 Note HISTORY: Eye swellin g PROCEDURE: GE [employer] VCT 64. Without IV contrast, images of [...] signed by Herbie Pace on 08/06/2021 1523 [facility] Target Aircraft Technician Evaluation note Diagnosis Orbital myositis, unspecified laterality- Primary Chronic sinusitis, unspecified location [facility] Diagnosis Chronic sinusitis, unspecified location- Primary documented [facility] Diagnosis Iron deficiency Other disorders of iron metabolism [facility] this [facility] Diagnosis Orbital myositis, unspecified laterality- Primary Crohn's disease of small and large intestines with complication Immunosuppressed status Unspecified disorder of immune mechanism Chronic pansinusitis Other chronic sinusitis Pulmonary nodules Other nonspecific abnormal finding of lung field Psoriasis Other psoriasis Less than 8 weeks gestation of state, incidental documented [facility] this [facility] Diagnosis Crohn's disease of both small and large intestine with complication- Primary Regional enteritis of small intestine with large intestine Orbital myositis, unspecified laterality 11 weeks gestation of state, incidental [facility] Crohn's disease of both small and large intestine with complication- Primary Regional enteritis of small intestine with large intestine [facility] Diagnosis Viral URI- Primary Acute upper respiratory infections of unspecified site 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, 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) Crohns disease of both small and large intestine with unspecified complications (K50.819) Bilateral impacted cerumen Impacted cerumen documented in this encounter [facility] HealthcareEvaluation note* Diagnosis Crohn's disease in remission- Primary [facility] Diagnosis Orbital myositis, unspecified laterality- Primary Crohn's disease of small and large intestines with complication Immunosuppressed status Unspecified disorder of immune mechanism Chronic pansinusitis Other chronic sinusitis Pulmonary nodules Other nonspecific abnormal finding of lung field Psoriasis Other psoriasis Less than 8 weeks gestation of state, incidental Left leg swelling Psoriasis of scalp Other psoriasis [facility] assessment information available [facility] Work Phone: Evaluation note* Diagnosis Crohn's disease of both small and large intestine with complication Regional enteritis of small intestine with large intestine [facility] Diagnosis Encounter for wellness examination in adult- Primary Adalimumab (Humira) long-term use At risk for infection due to immunosuppression Chronic sinusitis, unspecified location Crohn's disease of both small and large intestine without complication (CMS/HCC) Encounter for monitoring rituximab therapy Gastroesophageal reflux disease without esophagitis Esophageal reflux Chronic intractable headache, unspecified headache type Hypogammaglobulinemia (CMS/HCC) Unspecified hypogammaglobulinemia Immunocompromised patient (CMS/HCC) Immunodeficiency (CMS/HCC) Unspecified immunity deficiency IgG1 deficiency (CMS/HCC) Microcytic anemia Unspecified iron deficiency anemia Pulmonary nodules Other diseases of lung, not elsewhere classified S/P small bowel resection Other postprocedural status Tension headache Alopecia areata Vitamin D deficiency Psoriasis (CMS/HCC) Other psoriasis Immunosuppressed status (CMS/HCC) Other fatigue Anxiety Anxiety state, unspecified Obesity (BMI 30.0-34.9) Crohn's disease of both small and large intestine with unspecified complications (CMS/HCC) [facility] Diagnosis Anxiety- Primary Anxiety state, unspecified documented in this [facility]* Diagnosis Chronic sinusitis, unspecified location- Primary [facility] Diagnosis Psoriasis- Primary Other psoriasis Intertrigo- Primary Other specified erythematous condition Psoriasis Other psoriasis Psoriasis Other psoriasis Chronic sinusitis, unspecified location Chronic maxillary sinusitis Epistaxis documented in this [facility]* Diagnosis Psoriasis- Primary Other psoriasis Intertrigo- Primary Other specified erythematous condition Psoriasis Other psoriasis Psoriasis Other psoriasis Perforation of left tympanic membrane- Primary Perforation of tympanic membrane, unspecified documented in this encounter [facility] Diagnosis Viral URI- Primary Acute upper respiratory infections of unspecified site Fever, unspecified fever cause documented in this encounter [facility]* Diagnosis Maternal Crohn's disease affecting in second trimester ([facility])- Primary History of chronic ulcerative colitis 19 weeks gestation of [facility] [place] [facility] Diagnosis Maternal Crohn's disease affecting in second trimester ([facility])- Primary [facility] in this [facility] [place] [facility]* Diagnosis Maternal Crohn's disease affecting in second trimester ([facility])- Primary History of chronic ulcerative colitis documented in this [facility] [place] [facility]* Diagnosis Nonintractable episodic headache, unspecified headache type- Primary documented in this encounter [facility]* Diagnosis Nonintractable episodic headache, unspecified headache type- Primary documented in this encounter [facility]* Diagnosis Immunocompromised patient ([facility])- Primary Nonintractable episodic headache, unspecified headache type 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 documented in this encounter [facility]* Diagnosis Crohn's disease of both small and large intestine with complication Regional enteritis of small intestine with large intestine [facility] Diagnosis Crohn's disease of both small and large intestine with complication- Primary Regional enteritis of small intestine with large intestine [facility] Diagnosis Acute cough- Primary Acute bilateral otitis media Acute viral bronchitis Wheezing documented in this encounter [facility]* Diagnosis Crohn's disease of both small and large intestine with complication- Primary Regional enteritis of small intestine with large intestine Crohn's disease of both small and large intestine with complication Regional enteritis of small intestine with large intestine [facility] Diagnosis Crohn's disease of both small and large intestine with complication (HCC) Regional enteritis of small intestine with large intestine [facility] Diagnosis Crohn's disease of both small and large intestine with complication Regional enteritis of small intestine with large intestine [facility] Diagnosis Anorectal stricture- Primary Stenosis of rectum and anus Anorectal stricture Stenosis of rectum and anus Crohn's disease of both small and large intestine with complication Regional enteritis of small intestine with large intestine documented [facility] this encounter [facility] of [facility]* Rubia Hernandez, [employer] - 05/26/2023 7:30 PM ESTAssociated Order(s): Ear Cerumen Removal Post-Procedure Diagnose(s): Bilateral impacted cerumen Kings Hatfield is a 22 y.o. female presents with chief complaint of Earache HPI: Patient is here for earache. 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 Kings Hatfield is a 23 y.o. female presents with chief complaint of URI HPI: URI Associated symptoms include ear pain, headaches, rhinorrhea and wheezing. Pertinent negatives include no abdominal pain, chest pain, neck pain, rash, sore throat, swollen glands or vomiting. Shortness of Breath This is a new problem. The current episode started yesterday. The problem occurs intermittently. The problem has been unchanged. The average episode lasts 10 seconds. Associated symptoms include coryza, ear pain, headaches, rhinorrhea, sputum production and wheezing. Pertinent negatives include no abdominal pain, chest pain, claudication, fever, hemoptysis, leg pain, leg swelling, neck pain, orthopnea, PND, rash, sore throat, swollen glands, syncope or vomiting. Nothing aggravates the symptoms. SUBJECTIVE: MEDICATIONS: Current Outpatient Medications Medication Instructions acetaminophen (Tylenol) 325 MG tablet 2 tablets, Every 6 hours PRN albuterol HFA 90 mcg/act inhaler 2 puffs, Inhalation, Every 4 hours PRN dextrose 5 % solution 500 mL with riTUXimab 500 MG/50ML solution 375 mg/m2 Infuse into a venous catheter ferrous sulfate (FE TABS) 325 mg, Oral, 2 times daily, Do not crush, chew, or split. ibuprofen 600 mg, Every 6 hours PRN riTUXimab (Rituxan) 100 MG/10ML chemo injection as directed Intravenous I have reviewed and reconciled the history and medication list with the patient today. REVIEW OF SYMPTOMS: Review of Systems Constitutional: Negative for fever. HENT: Positive for ear pain and rhinorrhea. Negative for sore throat. Respiratory: Positive for sputum production, shortness of breath and wheezing. Negative for hemoptysis. Cardiovascular: Negative for chest pain, orthopnea, claudication, leg swelling, syncope and PND. Gastrointestinal: Negative for abdominal pain and vomiting. Musculoskeletal: Negative for neck pain. Skin: Negative for rash. Neurological: Positive for headaches. OBJECTIVE: Visit Vitals OB Status Unknown Smoking Status Never Physical Exam Vitals and nursing note reviewed. Constitutional: Appearance: She is well-developed. HENT: Head: Normocephalic. Right Ear: Hearing normal. A middle ear effusion is present. Tympanic membrane is injected. Left Ear: Hearing normal. A middle ear effusion is present. Tympanic membrane is injected. Nose: Congestion and rhinorrhea present. Mouth/Throat: Mouth: Mucous membranes are moist. Pharynx: Posterior oropharyngeal erythema present. No oropharyngeal exudate. Tonsils: No tonsillar exudate. Cardiovascular: Rate and Rhythm: Normal rate and regular rhythm. Heart sounds: Normal heart sounds. Pulmonary: Effort: Pulmonary effort is normal. Breath sounds: Examination of the right-upper field reveals decreased breath sounds. Examination ofthe left-upper field reveals decreased breath sounds. Examination of the right-lower field reveals decreased breath sounds. Examination of the left-lower field reveals decreased breath sounds. Decreased breath sounds present. Abdominal: General: Abdomen is flat. There is no distension. Tenderness: There is no abdominal tenderness. Musculoskeletal: Cervical back: Neck supple. Lymphadenopathy: Cervical: Right cervical: No superficial cervical adenopathy. Left cervical: No superficial cervical adenopathy. Skin: General: Skin is warm. Capillary Refill: Capillary refill takes less than 2 seconds. Neurological: General: No focal deficit present. Mental Status: She is alert and oriented to person, place, and time. ASSESSMENT AND PLAN: Assessment/Plan Diagnoses and all orders for this visit: Acute cough - XR chest 2 views; Future Acute bilateral otitis media - azithromycin (Zithromax) 250 MG tablet; Take 2 tablets (500mg) on day 1, then 1 tablet daily (250mg) on days 2-5 Acute viral bronchitis Most likely viral in nature, will need to run its course. Educated patient viral infections such ascolds/flus do not respond to abx and typically do not begin to improve until 7-10 days into the illness. Discussed symptomatic treatment with patient. Humidifier at bedside to moisten area. Push fluids. Rest. Good handwashing. Follow up if symptoms do not improve. To ER for markedly worsening symptoms. Wheezing - albuterol HFA 90 mcg/act inhaler; Inhale 2 puffs every 4 (four) hours if needed for wheezing Patient will seek immediate medical attention if symptoms worsen or don't improve. documented in this encounterNOMS HealthcareInstructionsNot on filedocumented in this encounterPro[facility] SystemInstructionsNot on filedocumented in this encounterProG[facility] SystemInstructionsNot on filedocumented in this encounterProGlenbeigh [facility] SystemInstructionsNot on filedocumented in this encounterProGlenbeigh Hospital SystemReason for referral (narrative)* Consultation (Routine) - New Request Specialty Diagnoses / Procedures Referred By Wayne liz Referred To Contact Rheumatology Diagnoses Orbital myositis, unspecified laterality Crohn's disease of small and large intestines with complication Immunosuppressed status Chronic pansinusitis Pulmonary nodules Psoriasis Less than 8 weeks gestation of Ioana Otero MD [address] [place] [address] Referral ID Status Reason Start Date Expiration Date Visits Requested Visits Authorized [id number] New Request Specialty Services Required 3 7 7 [facility] for visit Narrative* Treatment Plan and Therapy Plan (Routine) - Authorized Specialty Diagnoses / Procedures Referred By Wayne liz Referred To Contact Diagnoses Crohn's disease of both small and large intestine with complication (HCC) Procedures MS GAMUNEX-C/GAMMAKED Shakira Orantes MD [address] [facility] [address] [place] [address] Stv 3c Med Surg [address] [place] [address] Referral ID Status Reason Start Date Expiration Date V isits Requested Visits Authorized [id number] Authorized 08/09/2021 09/08/2021 1 1 [employer] Phone: reason for visit Narrative* Endoscopy (Emergency) - Closed Specialty Diagnoses / Procedures Referred By Wayne liz Referred To Contact Diagnoses Crohn's disease of both small and large intestine with complication Procedures DIAGNOSTIC COLONOSCOPY MS COLONOSCOPY FLX DX W/COLLJ SPEC WHEN PFRMD Milind Fitch APRN-WASH BOX OPERATOR [address] [place] [address] Phone: tel: fax: Referral ID Status Reason Start Date Expiration Date Visits Re quested Visits Authorized [id number] Closed 08/31/2024 09/25/2025 1 1 [facility] for visit Narrative* Imaging (Routine) - Closed Specialty Diagnoses / Procedures Referred By Wayne liz Referred To Contact Radiology Diagnoses Crohn's disease of both small and large intestine with complication (HCC) Procedures CT ENTEROGRAPHY W WO CONTRAST Clifford Rodas MD [address] [facility] [address] [place] [address] Phone: tel: fax: Referral ID Status Reason Start Date Expiration Date Visits Re quested Visits Authorized [id number] Closed 10/20/2024 10/19/2025 1 1 [facility] for visit Narrative* Auth/Cert Specialty Diagnoses / Procedures Referred By Wayne liz Referred To Contact Diagnoses Crohn's disease of both small and large intestine with complication Crohn's disease of both small and large intestine with complication [K50.819] Procedures MS ANRCT XM SURG REQ ANES GENERAL SPI/EDRL DX MS SIGMOIDOSCOPY FLX DX W/COLLJ SPEC BR/WA IF PFRMD EXAM UNDER ANESTHESIA ANORECTAL SIGMOIDOSCOPY DIAGNOSTIC Clifford Rodas MD [address] [place] [address] Phone: tel: fax: [facility] [address] [place] [address] Referral ID Status Reason Start Date Expiration Date Visits Re quested Visits Authorized [id number] 1 1 [facility] Summary Purpose Family History No Family History [...] FoundDocuments on File Type Date Recorded Patient Career Orientation Teacher Expl anation ACP-Advance Directive ACP-Power of Discharge Door Operator Latest Code Status on File Code Status Date Activated Date Inactivated Comments Full Code 07/26/2014 11:40 PM 07/28/2014 10:19 PM Full Code 07/19/2014 7:32 PM 07/25/2014 8:24 PM Full Code 07/02/2014 7:22 PM 07/07/2014 12:22 PM Full Code 04/20/2014 11:13 AM 04/26/2014 3:37 PM Full Code 03/24/2014 7:43 PM 03/25/2014 12:50 PM Documents on File Type Date Recorded Patient Career Orientation Teacher Expl anation ACP-Advance Directive ACP-Power of Discharge Door Operator Latest Code Status on File Code Status Date Activated Date Inactivated Comments Full Code 07/26/2014 11:40 PM 07/28/2014 10:19 PM Full Code 07/19/2014 7:32 PM 07/25/2014 8:24 PM Full Code 07/02/2014 7:22 PM 07/07/2014 12:22 PM Full Code 04/20/2014 11:13 AM 04/26/2014 3:37 PM Full Code 03/24/2014 7:43 PM 03/25/2014 12:50 PM Advance Directive Response Recorded Date/ Time Advance Directives No December 11:22am Date Activated Date Inactivated Comments 07/26/2014 11:40 PM 07/28/2014 10:19 PM Date Activated Date Inactivated Comments 07/19/2014 7:32 PM 07/25/2014 8:24 PM Date Activated Date Inactivated Comments 07/02/2014 7:22 PM 07/07/2014 12:22 PM Date Activated Date Inactivated Comments 04/20/2014 11:13 AM 04/26/2014 3:37 PM Date Activated Date Inactivated Comments 03/24/2014 7:43 PM 03/25/2014 12:50 PM Date Activated Date Inactivated Comments 11/02/2024 2:39 PM Date Activated Date Inactivated Comments 11/02/2024 2:39 PM Reason for Referral Specialty Diagnoses / Procedures Referred By Contac t Referred To Contact Hematology Procedures Hematology Oncology Clinic Appointment Request [facility] [address] [place] [address] Referral ID Status Reason Start Date Expiration Date Visits Requested Visits Authorized [id number] Authorization Not Required 3 1 1 Specialty Diagnoses / Procedures Referred By Contac t Referred To Contact Diagnoses Left leg swelling Procedures VASC DUPLEX VENOUS EXTREMITY LOWER LEFT MS DUPLEX EXTREM VENOUS,UNI OR LTD Christine Mckeon MD [address] [place] [address] Referral ID Status Reason Start Date Expiration Date V isits Requested Visits Authorized [id number] New Request 08/06/2023 08/30/2024 1 1 Specialty Diagnoses / Procedures Referred By Contac t Referred To Contact Diagnoses Crohn's disease of both small and large intestine with complication Procedures DIAGNOSTIC COLONOSCOPY MS COLONOSCOPY FLX DX W/COLLJ SPEC WHEN PFRMD Milind Fitch, FINANCIAL ADMINISTRATION OFFICER-WASH BOX OPERATOR [address] [place] [address] Referral ID Status Reason Start Date Expiration Date Visits Re quested Visits Authorized [id number] Closed 10/22/2023 11/15/2024 1 1 Specialty Diagnoses / Procedures Referred By Contac t Referred To Contact RAD CAT Scan Diagnoses Chronic sinusitis, unspecified location Procedures CT Sinuses Stealth without Contrast Naima Coates CPNP-PC [address] [employer] [address] Referral ID Status Reason Start Date Expiration Date V isits Requested Visits Authorized [id number] New Request 02/16/2024 1 1 Referral ID Status Reason Start Date Expiration Date Visits Requested Visits Authorized [id number] Authorization Not Required 02/16/2024 1 1 Specialty Diagnoses / Procedures Referred By Contac t Referred To Contact Maternal and Medicine Diagnoses Maternal Crohn's disease affecting in second trimester ([facility]) Procedures US MFM with or without consult Krista Martinez MD [address] [place] [address] [facility] Maternal [facility] [address] [place] [address] Referral ID Status Reason Start Date Expiration Date V isits Requested Visits Authorized [id number] Pending Review 04/27/2023 04/26/2024 1 1 Specialty Diagnoses / Procedures Referred By Contac t Referred To Contact Maternal and Medicine Diagnoses Maternal Crohn's disease affecting in second trimester ([facility]) History of chronic ulcerative colitis Procedures US MFM with or without consult Ruchi Carmona MD [address] [place] [address] [facility] [address] [place] [address] Referral ID Status Reason Start Date Expiration Date V isits Requested Visits Authorized [id number] Pending Review 06/01/2023 05/31/2024 1 1 Additional Source Comments INFORMATION SOURCE (unrecogn ized section and content) DATE CREATED AUTHOR 01/17/2020 [facility] DATE CREATED AUTHOR AUTHOR'S ORGANIZ ATION 08/14/2021 [facility] DATE CREATED AUTHOR AUTHOR'S ORGANIZ ATION 02/15/2022 [facility] DATE CREATED AUTHOR AUTHOR'S ORGANIZ ATION 04/05/2022 [facility] dical Specialist DATE CREATED AUTHOR AUTHOR'S ORGANIZ ATION 07/05/2023 [facility] DATE CREATED AUTHOR AUTHOR'S ORGANIZ ATION 09/09/2023 [facility] DATE CREATED AUTHOR AUTHOR'S ORGANIZ ATION 03/01/2024 [facility] DATE CREATED AUTHOR AUTHOR'S ORGANIZ ATION 03/02/2024 [facility] DATE CREATED AUTHOR AUTHOR'S ORGANIZ ATION 05/06/2024 [facility] DATE CREATED AUTHOR AUTHOR'S ORGANIZ ATION 07/16/2024 [facility] DATE CREATED AUTHOR AUTHOR'S ORGANIZ ATION 10/02/2024 [facility] dical Specialists EPIC DATE CREATED AUTHOR AUTHOR'S ORGANIZ ATION 11/01/2024 [facility] DATE CREATED AUTHOR AUTHOR'S ORGANIZ ATION 12/28/2024 [facility] Care Teams (unrecognized sec tion and content) Contracts Administrator Relationship Specialty [place] [address] PCP - General 08/23/12 Contracts Administrator Relationship Specialty Start Date End Date Chey Pillai MD [address] [place] [address] PCP - General Family Medicine 08/06/21 Contracts Administrator Relationship Specialty Start Date End Date Chey Aragon MD [address] [place] [address], [place] [address] PCP - General Family Medicine 01/30/20 Contracts Administrator Relationship Specialty Start Date End Date Chey Aragon MD [address] [place] [address] PCP - General Family Medicine 01/30/20 Contracts Administrator Relationship Specialty Start Date End Date Chey Aragon MD [address] [place] [address] PCP - General Family Medicine 01/30/20 Contracts Administrator Relationship Specialty Start Date End Date Chey Aragon MD [address] [place] [address] PCP - General Family Medicine 01/30/20 Contracts Administrator Relationship Specialty Start Date End Date Chey Aragon MD [address] [place] [address], [place] [address] PCP - General Family Medicine 01/30/20 Contracts Administrator Relationship Specialty Start Date End Date Chey Aragon MD [address] [place] [address] PCP - General Family Medicine 01/30/20 Contracts Administrator Relationship Specialty Start Date End Date Chey Aragon MD [address] [place] [address] PCP - General Family Medicine 01/30/20 Contracts Administrator Relationship Specialty Start Date End Date Chey Aragon MD [address] [place] [address] PCP - General Family Medicine 01/30/20 Contracts Administrator Relationship Specialty Start Date End Date Chey Aragon MD [address] [place] [address] PCP - General Family Medicine 01/30/20 Contracts Administrator Relationship Specialty Start Date End Date Chey Aragon MD [address] [place] [address] PCP - General Family Medicine 01/30/20 Contracts Administrator Relationship Specialty Start Date End Date Chey Aragon MD [address] [place] [address] PCP - General Family Medicine 01/30/20 Contracts Administrator Relationship Specialty Start Date End Date Chey Aragon MD [address] [place] [address] PCP - General Family Medicine 01/30/20 Contracts Administrator Relationship Specialty Start Date End Date Chey Aragon MD [address] [place] [address] PCP - General Family Medicine 01/30/20 Contracts Administrator Relationship Specialty Start Date End Date Chey Aragon MD [address] [place] [address] PCP - General Family Medicine 01/30/20 Contracts Administrator Relationship Specialty Start Date End Date Chey Aragon MD [address] [place] [address] PCP - General Family Medicine 01/30/20 Contracts Administrator Relationship Specialty Start Date End Date Chey Aragon MD [address] [place] [address] PCP - General Family Medicine 10/27/22 Chey Aragon MD [address] [place] [address] PCP - Cable Commercial 04/13/23 Serene Alfred NP [address] [facility] [place] [address] Nurse Practitioner Family Medicine 10/27/22 Contracts Administrator Relationship Specialty Start Date End Date Chey Aragon MD [address] [place] [address] PCP - General Family Medicine 10/27/22 Chey Aragon MD [address] [place] [address] PCP - Cable Commercial 04/13/23 Serene Alfred NP [address] [place] [address] Nurse Practitioner Family Medicine 10/27/22 Team Status: Inactive Member Role Status Dates Alfredo Duong APRN Attending Provider Active Start: September 03, 2023 End: September 03, 2023 Contracts Administrator Relationship Specialty Start Date End Date Chey Aragon MD [address] [place] [address] PCP - General Family Medicine 10/27/22 Chey Aragon MD [address] [place] [address] PCP - Cable Commercial 03/13/23 Serene Alfred NP [address] [place] [address] Nurse Practitioner Family Medicine 10/27/22 Contracts Administrator Relationship Specialty Start Date End Date Chey Aragon MD [address] [place] [address] PCP - General Family Medicine 10/27/22 Chey Aragon MD [address] [place] [address] PCP - Cable Commercial 03/13/23 Serene Alfred NP [address] [place] [address] Nurse Practitioner Family Medicine 10/27/22 Contracts Administrator Relationship Specialty Start Date End Date Chey Aragon MD [address] [place] [address] PCP - General Family Medicine 10/27/22 Chey Aragon MD [address] [place] [address] PCP - Cable Commercial 03/13/23 Serene Alfred NP [address] [place] [address] Nurse Practitioner Family Medicine 10/27/22 Contracts Administrator Relationship Specialty Start Date End Date Chey Aragon MD [address] [place] [address] PCP - General Family Medicine 10/27/22 Chey Aragon MD [address] [place] [address] [facility] 03/13/23 Serene Alfred NP [address] [place] [address] Nurse Practitioner Family Medicine 10/27/22 Contracts Administrator Relationship Specialty Start Date End Date Chey Aragon MD [address] [place] [address] PCP - General Family Medicine 01/30/20 Contracts Administrator Relationship Specialty Start Date End Date Chey Aragon MD [address] [place] [address] PCP - General Family Medicine 01/30/20 Contracts Administrator Relationship Specialty Start Date End Date Chey Aragon MD [address] [place] [address] PCP - General Family Medicine 01/30/20 Contracts Administrator Relationship Specialty Start Date End Date Chey Aragon MD [address] [place] [address] PCP - General Family Medicine 01/30/20 Contracts Administrator Relationship Specialty Start Date End Date Chey Aragon MD [address] [place] [address] PCP - General Family Medicine 01/30/20 Contracts Administrator Relationship Specialty Start Date End Date Chey Aragon MD [address] [place] [address] PCP - General Family Medicine 01/30/20 Contracts Administrator Relationship Specialty Start Date End Date Chey Aragon MD [address] [place] [address] PCP - General Family Medicine 10/27/22 Chey Aragon MD [address] [place] [address] PCP - Cable Commercial 03/13/23 Serene Alfred NP [address] [place] [address] Nurse Practitioner Family Medicine 10/27/22 Contracts Administrator Relationship Specialty Start Date End Date Chey Aragon MD [address] [place] [address] PCP - General Family Medicine 10/27/22 Chey Aragon MD [address] [place] [address] PCP - Cable Commercial 03/13/23 Serene Alfred NP [address] [place] [address] Nurse Practitioner Family Medicine 10/27/22 Contracts Administrator Relationship Specialty Start Date End Date Chey rAagon MD [address] [place] [address] PCP - General Family Medicine 04/29/22 Contracts Administrator Relationship Specialty Start Date End Date Chey Aragon MD [address] [place] [address] PCP - General Family Medicine 04/29/22 Contracts Administrator Relationship Specialty Start Date End Date Chey Aragon MD [address] [place] [address] PCP - General Family Medicine 04/29/22 Contracts Administrator Relationship Specialty Start Date End Date Chey Aragon MD [address] [place] [address] PCP - General Family Medicine 04/29/22 Contracts Administrator Relationship Specialty Start Date End Date Chey Aragon MD [address] [place] [address] PCP - General Family Medicine 04/29/22 Contracts Administrator Relationship Specialty Start Date End Date Chey Aragon MD [address] [place] [address] PCP - General Family Medicine 10/27/22 Serene Alfred NP [address] [place] [address] Nurse Practitioner Family Medicine 10/27/22 Contracts Administrator Relationship Specialty Start Date End Date Chey Aragon MD [address] [place] [address] PCP - General Family Medicine 10/27/22 Serene Alfred NP [address] [place] [address] Nurse Practitioner Family Medicine 10/27/22 Contracts Administrator Relationship Specialty Start Date End Date Chey Aragon MD [address] [place] [address] PCP - General Family Medicine 10/27/22 Serene Alfred NP [address] [place] [address] Nurse Practitioner Family Medicine 10/27/22 Contracts Administrator Relationship Specialty Start Date End Date Chey Aragon MD [address] [place] [address] PCP - General Family Medicine 10/27/22 Serene Alfred NP [address] [place] [address] Nurse Practitioner Family Medicine 10/27/22 Contracts Administrator Relationship Specialty Start Date End Date Chey Aragon MD [address] [place] [address] PCP - General Family Medicine 10/27/22 Serene Alfred NP [address] [place] [address] Nurse Practitioner Family Medicine 10/27/22 Contracts Administrator Relationship Specialty Start Date End Date Chey Aragon MD [address] [place] [address] PCP - General Family Medicine 10/27/22 Serene Alfred NP [address] [place] [address] Nurse Practitioner Family Medicine 10/27/22 Contracts Administrator Relationship Specialty Start Date End Date Chey Aragon MD [address] [place] [address] PCP - General Family Medicine 10/27/22 Serene Alfred NP [address] [place] [address] Nurse Practitioner Family Medicine 10/27/22 Contracts Administrator Relationship Specialty Start Date End Date Chey Pillai MD [address] [place] [address] PCP - General Family Medicine 10/17/24 Contracts Administrator Relationship Specialty Start Date End Date Chey Pillai MD [address] [place] [address] PCP - General Family Medicine 08/06/21 Contracts Administrator Relationship Specialty Start Date End Date Chey Aragon MD [address] [place] [address] PCP - General Family Medicine 10/27/22 Serene Alfred NP [address] [place] [address] Nurse Practitioner Family Medicine 10/27/22 Contracts Administrator Relationship Specialty Start Date End Date Chey Pillai MD [address] [place] [address] PCP - General Family Medicine 10/17/24 Contracts Administrator Relationship Specialty Start Date End Date Chey Aragon MD [address] [place] [address] PCP - General Family Medicine 10/27/22 Serene Alfred NP [address] [place], [place] [address] Nurse Practitioner Family Medicine 10/27/22 Contracts Administrator Relationship Specialty Start Date End Date Chey Pillai MD [address] [facility] [place], [place] [address] PCP - General Family Medicine 10/17/24 Scheduled Active and Recently Administ ered Medications (unrecognized section and content) Medication Order 08/11/2021 08/12/2021 08/13/2021 immune globulin (GAMMAGARD) 10% solution 35 g (COMPLETED) 35 g, IntraVENous, ONCE, 1 dose, On Thu08/13/21 at 1000, Reason for Non-Formulary Order: approved form insurance for Gammagard, Pharmacy to insert product specific administration instructions here. 1132 (New Bag - Prov ider: Loraine Walter RN)1240 (Stopped - Provider: Loraine Walter RN) PRN [...] (Given - Provid er: Loraine Walter RN) Scheduled Medication Order 03/20/2024 03/21/2024 03/22/2024 aprepitant 40 mg capsule (Emend) (COMPLETED) 40 mg (0.48 mg/kg), Oral, ONCE, On Thu03/22/24 at 1300, Pre-op 1306 (Given - Provid er: Moira Hinton RN) Continuous Medication Order 03/20/2024 03/21/2024 03/22/2024 lactated ringers injection (LR) 75 mL/hr, Intravenous, CONTINUOUS, Starting on Thu03/22/24 at 1500, Until 06/25/24 at 1559, Contact pharmacy for new bag/syringe when needed., Phase I 1500 (Due) PRN Medication Order 03/20/2024 03/21/2024 03/22/2024 0.9% NaCl flush syringe injection (NS) Intercatheter, Q1H PRN, Flush, To maintain access, Phase I 0.9% NaCl flush syringe injection (NS) Intercatheter, Q1H PRN, Flush, Pre-op acetaminophen 325 mg tablet (Tylenol) 650 mg (10 mg/kg), Oral, Q6H PRN, Pain - Mild, Pain - Moderate, Starting on Thu03/22/24 at 1255, Until 06/25/24 at 1354, Phase II 1519 (Given - Provid er: Moira Hinton RN) fentaNYL citrate (PF) 10 mcg/1 mL injection (Sublimaze) 35 mcg (0.538 mcg/kg), Intravenous, Q5MIN PRN, Other, Pain - Moderate, Pain - Severe, Use first prn acute pain (scale 5-10) - See administration instructions, Starting on Thu03/22/24 at 1457, Until Thu03/22/24 at 2359, Phase I LIDOcaine 1%-EPINEPHrine 1:100,000 injection (Xylocaine With EPINEPHrine) (CANCELED) One Step Once, Starting on Thu03/22/24 at 1419, Until Thu03/22/24 at 1435, Intra-op 1419 (Given - Provid er: Zhou Lee MD) ofloxacin 0.3% ophthalmic solution FOR OTIC USE (CANCELED) One Step Once, Starting on Thu03/22/24 at 1429, Until Thu03/22/24 at 1435, Intra-op 1429 (Given - Provid er: Zhou Lee MD - Comment: [facility]. Zhou Lee1 [id number] 06/2025) oxymetazoline 0.05 % nasal spray (Afrin) (CANCELED) One Step Once, Starting on Thu03/22/24 at 1430, Until Thu03/22/24 at 1435, Intra-op 1430 (Given - Provid er: Zhou Lee MD - Comment: 4 ml on 4 cottonoids) Scheduled Medication Order 10/31/2024 11/01/2024 11/02/2024 Acetaminophen (TYLENOL) tablet 975 mg (COMPLETED) 975 mg, Oral, ONCE, 1 dose, On Thu11/02/24 at 1515, Pre-op/Pre-Proc 1520 (Given - Provid er: Karol Lopez RN) Scopolamine (TRANSDERM-SCOP) patch 1 patch 1 patch, Transdermal, ONCE, 1 dose, On Thu11/02/24 at 1515, Each patch delivers 1 mg over 72 hours., Pre-op/Pre-Proc 1520 (Patch Applied - Provider: Karol Lopez RN)1900 (Due: Patch Removed - Provider: System Discharge - Comment: Time automatically adjusted from order being discontinued) Continuous Medication Order 10/31/2024 11/01/2024 11/02/2024 Sodium chloride 0.9% IV solution Intravenous, at 50 mL/hr, CONTINUOUS, Starting on Thu11/02/24 at 1445, Until Thu11/02/24 at 2100, Pre-op/Pre-Proc 1522 ($$New Bag$$ - Provider: Karol Lopez RN) PRN Medication Order 10/31/2024 11/01/2024 11/02/2024 Acetaminophen (TYLENOL) tablet 650 mg 650 mg, Oral, EVERY 4 HOURS NEEDED, Starting on Thu11/02/24 at 1803, Until Thu11/02/24 at 2100, Moderate Pain, Maximum dose of acetaminophen is 4000 mg from all sources in 24 hours., Post-op/Post-Proc Haloperidol lactate (HALDOL) injection 1 mg 1 mg, Intravenous, EVERY 1 HOUR NEEDED, 2 doses, Starting on Thu11/02/24 at 1718, Until Thu11/02/24 at 2100, Nausea, SECOND line antiemetic, Recovery Ibuprofen (MOTRIN) tablet 400 mg 400 mg, Oral, EVERY 6 HOURS NEEDED, Starting on Thu11/02/24 at 1803, Until Thu11/02/24 at 2100, Mild Pain, Give with food, Post-op/Post-Proc Ondansetron 4mg/2ml (ZOFRAN) injection 4 mg 4 mg, Intravenous, EVERY 4 HOURS NEEDED, Starting on Thu11/02/24 at 1803, Until Thu11/02/24 at 2100, Nausea / Vomiting, Post-op/Post-Proc Prochlorperazine (COMPAZINE) injection 5 mg 5 mg, Intravenous, EVERY 1 HOUR NEEDED, 2 doses, Starting on Thu11/02/24 at 1718, Until Thu11/02/24 at 2100, Nausea / Vomiting, FIRST Line antiemetic, Do not administer within 6 hours of intra-operative dose. Maximum 40mg/day. For IV route: Give undiluted by slow IV push at a rate of 5 mg/min., Recovery Reason for Visit (unrecogniz ed section and content) Reason Comments New Patient Specialty Diagnoses / Procedures Referred By Contac t Referred To Contact Colon & Rectal Surgery Diagnoses Crohn's disease of both small and large intestine with complication Milind Fitch, SHANTELL-WASH BOX OPERATOR [address] [place] [address] Phone: tel: fax: Referral ID Status Reason Start Date Expiration Date Visits Requested Visits Authorized [id number] New Request Specialty Services Required 09/07/2024 10/02/2025 1 1 Reason Onset Date Comments Surgical Followup 04/08/2022 [...] Clinic Appointment Request [facility] [address] [place] [address] Referral ID Status Reason Start Date Expiration Date Visits Requested Visits Authorized [id number] Authorization Not Required 3 1 1 Reason Comments FOLLOW-UP Reason Onset Date Comments Update 01/09/2023 Reason Onset Date Comments Results 01/21/2023 Reason Comments New Patient Specialty Diagnoses / Procedures Referred By Contac t Referred To Contact Gastroenterology Diagnoses Crohn's disease of both small and large intestine with complication Javier Agee MD [address] [place] [address] [facility] [address] [place] [address] Referral ID Status Reason Start Date Expiration Date V isits Requested Visits Authorized [id number] Pending Review 01/16/2023 02/10/2024 1 1 Reason Onset Date Comments Case Discussion 03/03/2023 Transitioned to adult GI at [facility] Reason Comments Venipuncture Reason Comments Earache Reason Comments Follow-up Crohn's Disease Specialty Diagnoses / Procedures Referred By Wayne liz Referred To Contact Rheumatology Diagnoses Orbital myositis, unspecified laterality Crohn's disease of small and large intestines with complication Immunosuppressed status Chronic pansinusitis Pulmonary nodules Psoriasis Less than 8 weeks gestation of Ioana Otero MD [address] [place] [address] Christine Mckeon MD [address] [place] [address] Referral ID Status Reason Start Date Expiration Date V isits Requested Visits Authorized [id number] Pending Review 02/05/2023 03/01/2024 1 1 Specialty Diagnoses / Procedures Referred By Wayne liz Referred To Contact Diagnoses Crohn's disease of both small and large intestine with complication Procedures DIAGNOSTIC COLONOSCOPY MS COLONOSCOPY FLX DX W/COLLJ SPEC WHEN PFANKITD Milind Fitch, SHANTELL-WASH BOX OPERATOR [address] [place] [phone] Referral ID Status Reason Start Date Expiration Date Visits Re quested Visits Authorized [id number] Closed 10/22/2023 11/15/2024 1 1 Reason Comments Annual Exam Reason Comments Anxiety Patient has been sedrick ing the Sertraline and stated that it seems to be helping. She stated that she is doing good with it. Reason Onset Date Comments Case Discussion 02/16/2024 Reason Onset Date Comments Schedule Procedure 03/03/2024 Specialty Diagnoses / Procedures Referred By Wayne liz Referred To Contact RAD CAT Scan Diagnoses Chronic sinusitis, unspecified location Procedures CT Sinuses Stealth without Contrast Naima Coates CPNP-PC [address] [place] [address] Referral ID Status Reason Start Date Expiration Date Visits Requested Visits Authorized [id number] Authorization Not Required 02/16/2024 1 1 Reason Onset Date Comments Change Appointment 03/15/2024 Specialty Diagnoses / Procedures Referred By Wayne liz Referred To Contact Diagnoses Chronic maxillary sinusitis Epistaxis Procedures MS NASAL ENDOSCOPY DIAGNOSTIC UNI/BI SPX MS CONTROL NASAL HEMORRHAGE ANTERIOR SIMPLE MS NSL/SINUS NDSC MAX ANTROST W/RMVL TISS MAX SINUS MS OTOLARYNGOLOGIC EXAM UNDER GENERAL ANESTHESIA MS MYRINGOPLASTY ENDOSCOPY, BILATERAL NOSE, DIAGNOSTIC SIMPLE CONTROL OF EPISTAXIS MAXILLARY BILATERAL ANTROSTOMY, WITH TISSUE REMOVAL bilateral ear EXAM UNDER ANESTHESIA POSSIBLE LEFT MYRINGOPLASTY, USING PAPER PATCH IF INDICATED Referral ID Status Reason Start Date Expiration Date Visits Re quested Visits Authorized [id number] 1 1 Reason Comments URI Reason Comments HX Colitis Crohn's Disease Reason Comments Migraine Past 2-4 weeks pt wilks s been having migraines. Reason Comments Migraine Reason Comments Follow-up Goals (unrecognized section and content) Goals may be documented in a n alternate sectionNot on filedocumented as of this encounterNot on filedocumented as of this encounterNot on filedocumented as of this encounterNot on filedocumented as of this encounterNot on filedocumented as of this encounter FOR RECORDS PERTAINING TO PATIENTS WHO ARE [...] BE BASED ON THE PRIMARY CLINICAL RECORDS. [employer] provides no warranty or guarantee of the accuracy or completeness of information in this document.
[2024-12-28 13:14] LABS: Iron 22.0 ug/dL (50.0-170.0); Percent Iron Saturation 12.4 %; Total Iron Binding Capacity 178.0 ug/dL (250.0-450.0)
[2024-12-28 13:20] LABS: Ferritin 335.0 ng/mL (8.0-252.0)
[2024-12-28 13:53] LABS: Hematocrit 38.2 % (36.0-48.0); Hemoglobin 12.4 g/dL (12.0-16.0); Immature Granulocytes Abs Auto 0.04 10^3/uL (0.00-0.03); Immature Granulocytes Pct Auto 0.4 % (0.0-0.5); Lymphocytes Absolute Auto 1.1 10^3/uL (1.2-3.8); Mean Corpuscular HGB Conc 32.5 g/dL (29.9-35.2); Mean Corpuscular Hemoglobin 28.2 pg (26.7-34.0); Mean Corpuscular Volume 87.0 fL (81.0-99.0); Platelet Count 243 10^3/uL (150-450); Red Blood Count 4.39 10^6/uL (4.20-5.40); White Blood Count 11.0 10^3/uL (4.0-11.0)
[2024-12-29 21:04] LABS: Transferrin 160 mg/dL (192-364)
== END 2024-12-28 12:13 | disposition home or self-care (01) ==
LOC: LAB 12:16
PROVIDERS: PCP Family Medicine; Visit Provider Nurse Practitioner Family
DX: K50.819 Crohn's disease of both small and large intestine with unspecified complications (principal)
CPT/HCPCS: 36415; 82728; 83540; 83550; 84466; 85025

== ENCOUNTER 2024-12-29 10:26 | Outpatient (REF) | payer BC, MEDICAID, SELFPAY ==
--- OUTSIDE RECORDS SUMMARY | 2024-12-26 11:15 | XMS_ITS | Encounter Summary ---
Author Organization [facility] Address [address] [place] [address] Care Team Providers Care Cad Intern Name Role Phone Chey Pillai MD Primary Care Prov ider Reason for Visit * Reason Comments Follow-up Encounter Details Date Type Department Care Team (Late st Contact Info) Description 12/26/2024 11:15 AM EDT Office Visit Division of Colon & Rectal Surgery [address] [facility] [address] [place] [address] Henry Rodas MD [address] [place] [address] Anorectal stricture (Primary Dx) Social History Tobacco Use Types Packs/Day Years Used Date Smoking Tobacco: Never Smokeless Tobacco: Never Tobacco Cessation:Counseling Given: Not Answered Alcohol Use Standard Drinks/Week Comments Not Currently 0 (1 standard drink = 0.6 oz pur e alcohol) Depression Answer Date Recorded PHQ-9 Total Score (Interpret ation of Total Score 1-4 = Minimal depression; 5-9 = Mild depression; 10-14 = Moderate depression; 15-19 = Moderately severe depression) 0 12/26/2024 Comments No Sex and Gender Information Value Date Recorded Sex Assigned at Not on file Legal Sex Female 11:55 AM EDT Gender Identity Female 05/26/2024 3:24 PM EST Sexual Orientation Straight 05/26/2024 3: 24 PM EST documented as of this encounter Last Filed Vital Signs Vital Sign Reading Time Taken Comments Blood Pressure 104/71 12/26/2024 11:04 AM EDT Pulse 67 12/26/2024 11:04 AM EDT Temperature 36.8 C (98.2 F) 12/26/2024 11:04 AM EDT Respiratory Rate 16 12/26/2024 11:04 AM EDT Oxygen Saturation 98% 12/26/2024 11:04 AM EDT room air Inhaled Oxygen Concentration - - Weight 69 kg (152 lb 3.2 oz) 12/26/2024 11:04 AM EDT w/o shoes Height 160 cm (5' 3 ) 12/26/2024 11:04 AM EDT w/ o shoes Body Mass Index 26.96 12/26/2024 11:04 AM EDT documented in this encounter Patient Instructions * Patient Instructions* Jerilyn Hutchins RN - 12/26/2024 11:15 AM EDT Survey Following your visit today, you may receive a survey via text or email asking about your experience. We are always looking for ways to improve your visit. Please share your feedback and comments withus- We would love to hear from you! Current Outpatient Medications Medication Sig Risankizumab-rzaa (Skyrizi) 360 MG/2.4ML Solution Cartridge Inject 360 mg under the skin every 56 days. HOLD PRIOR TO SURGERY,SCHEDULE SURGERY 1 WEEKS PRIOR TO NEXT DOSE risankizumab-rzaa (Skyrizi) 600 MG/10ML Solution 600 mg by Intravenous route every 28 days for 3 doses. Infuse Skyrizi 600mg every 4 weeks x 3 doses. No premeds. Rate and dilution per [place] package insert or per pharmacist discretion. Infusion reaction medications per pharmacy or infusion suite standard. Zinc 50 MG tablet Take 1 tablet by mouth daily. HOLD DAY OF SURGERY Vit-Fe Fumarate-FA ( PO) Take by mouth. Please stop two weeks prior Preparing for Surgery A nurse will call you by 4 p.m. the day before your surgery to check the time, type of surgery and to answer any questions you may have. If you do not receive a call by 4 p.m., please call the [facility] at . Follow these instructions before coming to the hospital: Do not eat or drink anything (including water, coffee, candy, gum or mints) after midnight before your surgery. Only take the medicine your surgeon or anesthesiologist told you to take by mouth the morning of your surgery and Ensure Pre-Surgery drink if directed to do so. You may brush your teeth, but do not swallow the water. It is important to have an empty stomach before your surgery. Do not smoke/use any sort of tobacco after 6 p.m. the night before your surgery. You may take a bath or shower the morning of your surgery. Wear casual, loose-fitting clothing to the hospital. Do not wear makeup, nail mongolian or hair pins to the hospital. Please remove any body piercing's. Please leave jewelry and other valuables at home. Bring a storage case for contact lenses or glasses. They cannot be worn during surgery. If you take medicines on a routine basis, please bring an updated list of medications with you. Limit the number of people bringing you to the hospital. Adult patients should be escorted by one adult. Arrive at the hospital two hours before your surgery, or as directed by your surgeon???s office, toallow time to get you ready for surgery. If you have a living will or durable power of criminal attorney, please bring a copy of the documents with you. IF YOU USE CPAP BRING YOUR MACHINE WITH YOU TO THE HOSPITAL ALONG WITH THE PRESCRIPTION FOR CPAP PRESSURE LEVELS If you develop any illness, such as a cold, sore throat, cough, or fever, before your surgery, callthe [facility] at and our office at . Diet You may have a regular diet the day before. Nothing to eat or drink (NPO) after midnight except for certain medications (See medication guidelines that were given to you during you pre-op visit) and the Ensure Pre-Surgery clear nutrition drink(see information below for directions on this drink before surgery). You will be provided with two bottles of Ensure Pre-Surgery Clear Carbohydrate drink. What is Ensure Pre-Surgery clear nutrition drink, and what does it do? Surgery creates unique nutrition needs for your body. Ensure Pre-Surgery Clear Carbohydrate drink is formulated for those needs with carbohydrates and antioxidants to help your body recover after surgery. What is the drink important? Your healthcare provider has recommended this specialized Ensure nutrition drink to help your body prepare for, and recover from, surgery. It's important that you follow your doctor's nutrition recommendations to help with recovery. Pre-Surgery Carbohydrate-Loading Drinks have been shown to help patient recovery: Reduced nausea and vomiting after surgery Reduced pain after surgery Reduced time in the hospital When should I drink Ensure Pre-Surgery? We recommend you drink 1 bottle the night before surgery and drink 1 bottle the morning of your surgery up to 2 hours before surgery. This should be consumed quickly (in less than 5 minutes, rather than sipped over time). You should not have anything to eat or drink after midnight before surgery except your doctor's approved medications with a sip of water and this Ensure Pre-Surgery clear nutrition drink that should be consumed in the morning of surgery and finish it no later than 2 hours prior to surgery time. Youshould have nothing to eat or drink at all 2 hours prior to your surgery. Nutritional Prehabilitation We found that patients who are nutritionally boosted prior to surgery and after surgery recover faster. Our recommendation is for you to use two nutritional supplements per day for 14 days before and14 days after surgery to support a healthy diet. These supplements help rebuild muscle for strengthand energy during recovery from surgery. Adding nutrition supplements to your diet prior to surgeryhas been clinically shown to help significantly improve health outcomes. Patient who drank Ensure Enlive, Ensure Plus High Protein, or similar comparable high protein/high calorie supplements, twice daily saw improvements in nutritional status, weight gain, and vitamin D levels. Please note: This is a general guideline. The time frame before surgery may be shorter if your surgery is scheduled sooner than 14 days. If available, we will provide you with a bottle of Ensure Plus High Protein (or Glucerna if you are diabetic) as a sample for you to use. You will need to purchase additional nutrition supplements. Some examples of nutrition supplements we recommend are Ensure Enlive and Ensure Plus High Protein (or Glucerna Hunger Smart or Protein Smart if diabetic). These can be found at all major retailers and on [employer]. If you are unable to find these supplements, then we recommend that you find a nutrition supplement that contain between 20-30 grams of protein and between 250-350 calories. Please be aware that the protein supplements, such as Ensure Enlive and Ensure Plus High Protein are different than the Ensure Pre-Surgery Clear Nutrition Drink. Protein Nutrition supplements, suchas Ensure Enlive, Ensure Plus High Protein, or Glucerna should not be drank the day of surgery. Theonly nutrition drink that you should drink the morning of surgery is Ensure Pre-Surgery Clear Nutrition Drink. Exercise and Improve Your Strength Before Surgery Being in good physical shape can help you recover from surgery more quickly and with fewer problems. The stronger you are before surgery, the easier things will be for you after surgery. Exercise 30 minutes each day most days of the week. Walking in your neighborhood or on a treadmill, riding a bike, and strength training using light weights are all good options. Try to increase the amount of time or how hard you are exercising every few days to build up your strength and stamina. If you have a regular exercise routine most days of the week, stay with it until your surgery. Your surgeon may have you see a physical therapist (PT) before your surgery if you are not very active or you are weak. Stop Tobacco Use If you smoke or use other tobacco products you need to stop 4 weeks before the surgery. You also need to avoid tobacco use for up to 8 weeks after surgery to help your wound healing. Talk to your doctor about a smoking cessation program. You can also get help through: [facility] Tobacco Dependency [facility], National Quit Line, [employer] Association, [employer] Society, Smokefree.gov website Stop Alcohol Use If you drink alcohol you will need to stop drinking 4 weeks before the surgery to reduce your risk of problems after surgery. Avoid alcohol up to 8 weeks after your surgery to help reduce your risk of infection and to help your wound heal more quickly. Talk to your doctor if you need help to stop alcohol use. You may also find these resources helpful:Alcoholics Anonymous (AA) http://www.aa.org/ Rethinking Drinking https://www.rethinkingdrinking.niaaa.nih.gov/ National Willet of Alcohol Abuse and Alcoholism https://niaaa.nih.gov/ Anila Rubin 347-540-3046 -Inpatient, partial hospitalization and outpatient services for teens or adults and their families, as well as educational programs are offered. PREOPERATIVE PAIN MANAGEMENT Most people can have some pain after surgery. Good pain control helps you feel comfortable so you can take deep breaths, walk and sleep better. This can help lower the risk of complications such as pneumonia or blood clots after surgery. Pain control starts before surgery Your doctor may prescribe medicine to help control your pain. Medications that you may be given before surgery include: Acetaminophen (Tylenol) Oxycodone Gabapentin Other types of medications that you may be given include anti-anxiety and anti- nausea medicines. Taking your pain medicine as ordered by your doctor will bring you the most relief as your body heals. Pain Relief Procedures In addition to medications, your surgeon and/or anesthesiologist may recommend a pain relieving procedure that will be done before you go into the operating room. Spinal Spinal analgesia is a procedure that can provide substantial pain relief after surgery. After cleaning and numbing the skin, a needle is advanced to the intrathecal space (it does not go into your spinal cord). After the needle is in the correct place, pain relieving medication is injected and then the needle is removed. Rare side effects from intrathecal injection may include: headaches, numbness or tingling in the lower legs, back soreness, bleeding, allergic reaction or infection. Epidural Epidural analgesia is another way to give pain medicine after surgery. A very thin plastic tube called an epidural catheter is placed in your back just before surgery. A small pump that delivers numbing medication is attached to the epidural catheter. The catheter is taped to your back and you will be able to move around in bed or walk. The epiduralcan stay in until 24-48 hours before discharge from the hospital. Rare side effects from an epidural may include: headaches, bleeding, allergic reaction or infection. Alternative Pain Relief Options If the previously mentioned pain relief procedures are not best for you, do not worry, there are alternative options to provide pain relief after surgery. Patient Controlled Analgesia (also known as a DISTRIBUTION TECH) A DISTRIBUTION TECH is a pain pump that could be used to help control pain. The pain medicine is ordered by your doctor. The pump is connected to your IV line and you can push a button when you have pain. This will give a small amount of pain medicine into your blood stream. You should be the only person to push the button. Your nurse will give you further instructions about this pump. Pain control without medication Many patients find that using non-drug therapy for pain control brings them additional relief. Options include, but are not limited to: Relaxation Exercise or movement Distraction, such as reading, watching a movie or sirena Aromatherapy Heat or cold therapy (limit time of use Talk to a staff member to learn more. Getting Your Skin Ready for Surgery You are scheduled to have a surgery that involves cutting through the skin. Because germs live on everyone's skin, there is a greater chance of getting an infection. To lessen your chance of getting an infection, you need to take special care of your skin before the surgery. Follow These Instructions: You may be given or you will need to buy a special soap called 4% chlorhexidine gluconate or CHG. Common brand names for this soap are Hex-A-Clens or Hibiclens. You will need 2 of the 4-ounce bottles or Hibiclens Foam wash. There may be a store brand that is less costly. Ask your pharmacist where to find it in the drug store. It is often with first aid supplies. You may want to call ahead to check that they have the CHG soap in the store. Do not shave near the site where your doctor will be making the cut for your surgery for at least 48 hours before surgery. You need to shower with the CHG soap two times before your surgery: _ The evening before your surgery. _ Again the morning of your surgery. Cleaning Your Skin with CHG * 1. Start by washing your hair as usual with your normal shampoo and wash your body with regular soap. Rinse your hair and body very well to remove any shampoo or soap that might be on your skin. 2. Wet a clean washcloth and turn off the shower. 3. Put the CHG soap on the wet clean washcloth. 4. Apply the CHG soap to your whole body from the neck down only. Do not use CHG soap on your face and be careful not to get the CHG in your eyes or ears. CHG soap does not lather well. Put more CHG on the cloth as you cover more of your body. You should use about 4 ounces or 1/2 cup of CHG with each shower. Note: If you are using the Hibiclens (chlorhexidine) Foam wash,then apply 3 pumps of wash directly onto your skin and lather your body from the neck down. 5. Wash your body gently for 5 minutes, paying special attention to the part on your body where the surgery will be done. Be sure to wash the back of your neck, under your arms, your belly button, private parts and your legs down to your toes. Do not scrub too hard. 6. Turn the shower back on and rinse well to get the CHG soap off your body. 7. Pat yourself dry with a clean, dry towel. 8. Do not use any lotions, moisturizer, make-up or other products on the skin near the part of your body that will be cut for surgery. 9. Put on clean clothes. Be sure to repeat the shower the morning of your surgery. *Special Notes If you are to have a cut made into your scalp, you need to wash your hair with CHG each time your shower with CHG. Wash your hair with regular shampoo and rinse it well with water. Put a large amount of the CHG into your palm and then work it through your hair and scalp. It will not lather like your shampoo. Be careful not to get CHG into your eyes or ears. Rinse with clean water. If you do not have a shower or you are not able to get into the shower, do a sponge bath each time. Do not wash your hair unless you are to have a cut into your scalp. First, bathe with a washcloth and regular soap. Rinse with clean water. Then get a clean washcloth and use the CHG to wash your body. Rinse with another clean washcloth and plain water. Dry with a clean towel. If you have any questions about cleaning your skin, call your doctor???s office. documented in this encounter Progress Notes * Yvette Ramirez, SHANTELL-DATA DELIVERABLES MANAGER - 12/26/2024 11:15 AM EDT COLORECTAL SURGERY CRS Established Visit Patient: Sue Hatfield Date of Encounter: 12/26/24 Chief Complaint/Reason for today's visit: pre-operative discussion Colorectal Diagnosis: Crohn's disease Colorectal Surgery History (if applicable): Date of Surgery: 11/02/24 Surgery: EUA, flexible proctosigmoidoscopy with biopsy, stricture dilation Pathology: anal canal, biopsy: negative for malignancy; polypoid inflamed granulation tissue with erosion and dilated/congested vessels; negative for granulomas; no epithelial lining observed Cancer Stage (if applicable): N/A Sue Hatfield is a 24yo female with known Crohn's disease. She has been on various medical regimens for management of her Crohn's (currently on Skyrizi). She had a prior ileocecal resection in the past. She developed an anorectal stricture which was causing narrow stools and diarrhea; therefore, she underwent EUA, flexible proctosigmoidoscopy with biopsy, stricture dilation on 11/02/24. Interval History Since Last Appointment: Ms. Hatfield was last seen on 11/14/24 for her postoperative follow up. At that time, she reported her symptoms were essentially unchanged since surgery. She was still having intermittent abdominal cramping after eating, decreased appetite, continued weight loss, and 4-7 episodes of loose to watery stool per day. She started Skyrizi in September 2024. She is following with the IBD clinic. She presents today for discussion of possible temporary diverting loop ileostomy creation. She continues to have diarrhea, urgency, abdominal pain, weight loss. Overall, she feels fatigued. States that Skyrizi has not improved symptoms much. She is ready for a diversion. Physical Exam: BP 104/71 Pulse 67 Temp 98.2 ??F (36.8 ??C) (Infrared) Resp 16 Ht 1.6 m (5' 3 ) Comment: w/o shoes Wt 69 kg (152 lb 3.2 oz) Comment: w/o shoes SpO2 98% Comment: room air BMI 26.96 kg/m?? Smoking Status Never Wt Readings from Last 1 Encounters: 12/26/24 69 kg (152 lb 3.2 oz) ; 1.6 m (5' 3 ); Body mass index is 26.96 kg/m??. General Appearance: awake and alert, well-appearing, in no acute distress, well- hydrated, and well-nourished Abdomen: soft, non-tender, non-distended, and no palpable masses Diagnostic tests reviewed for today's visit: Pathologic Diagnosis - 11/02/24: A. Anal canal, biopsy: Negative for malignancy Polypoid inflamed granulation tissue with erosion and dilated / congested vessels Negative for granulomas No epithelial lining observed at 1118 EDT Diagnosis Comments Block Stain Result A1-2 CMV Negative A1-3 DOG-1 Negative A1-4 CD117 (c-kit) Negative A1-5 S-100 Negative A1-6 CAM 5.2 Negative A1-7 Smooth Muscle [address]in Negative CT Enterography, 10/26/24 (OSH): Status post resection of the cecum and terminal ileum. The anastomosis is unremarkable. Short segment of luminal narrowing involving the distal ileum with minimal associated wall thickening. It is unclear if this is related to a mild stricture versus peristalsis. No associated obstruction. Mild wall thickening of a segment of the proximal sigmoid colon. Moderate wall thickening of the rectum is identified with luminal narrowing. Findings are suggestive of [id number] Crohn's disease. Prominent asymmetric soft tissue in the right perineum compared to the left; however, no discrete abscess or fistula identified. Left adnexal dermoid measuring 3.3 x 2.8 cm. Mild splenomegaly. Serum Labs, 12/09/24: CPR: 0.77 Hgb: 11.9 Hct: 36.3 ASSESSMENT: Crohn's disease impacting colorectum, oral cavity Anorectal stricture S/P EUA, flexible proctosigmoidoscopy with biopsy, attempted stricture dilation (11/02/24) Medical management with Skyrizi (per IBD clinic) Ongoing symptoms of diarrhea, loss of appetite, fatigue, weight loss, abdominal cramping, intermittent BRBPR History of ileocecal resection We discussed the role of diversion to try to improve symptoms and quality of life. It is possible that diversion may allow the distal disease to heal better while on Skyrizi. I discussed that her colon and anorectal disease may not heal and that she might require TPC and EI. She understands. PLAN: Creation of diverting loop ileostomy, lx or open approach ERAS All questions were answered and the patient had no further concerns at this time. Sue Hatfield was given our contact information if she has any further questions or concerns. Henry Rodas MD * Jerilyn Hutchins RN - 12/26/2024 11:15 AM EDT CERAS teaching completed with patient. (2) Ensure Pre-surgery drinks, (2) Ensure High Protein drinks, skin prep soap, bowel prep instruction sheet, and GI surgery book provided. All questions answered. Patient states understanding and denies any questions at this time. * Jerilyn Hutchins RN - 12/26/2024 11:15 AM EDT RN called patient and gave ERAS TEACHING, and sent pt ERAS teaching through [employer] documented in this encounter Miscellaneous Notes * Addendum Note - DANIKA Maxwell - 12/26/2024 11:15 AM EDT Addended by: YVETTE RAMIREZ on: 12/26/2024 02:00 PM Modules accepted: Orders documented in this encounter Plan of Treatment Upcoming Encounters Date Type Department Care Team (Late st Contact Info) Description 01/02/2025 1:00 PM EDT Clinical Support Encounter [facility] [address] [place] [address] 01/05/2025 11:30 AM EDT Pre-Operative Nurse Assessment [facility] [address] [phone] Henry Rodas MD [address] [phone] 01/17/2025 10:00 AM EDT Hospital Encounter [facility] [address] [place] [address] Henry Rodas MD [address] [phone] Anorectal stricture 01/17/2025 12:00 PM EDT - 01/17/2025 2:30 PM EDT Surgery [facility] [address] [place] [address] Henry Rodas MD [address] [phone] ILEOSTOMY JEJUNOSTOMY NON-TUBE LAPAROSCOPIC 02/20/2025 11:00 AM EST Office Visit Division of Colon & Rectal Surgery [address] [phone] Yvette Ramirez, GUEST ATTENDANT-DATA DELIVERABLES MANAGER [address] [phone] Scheduled Procedures Name Priority Associated Diagnoses Date/Ti me ILEOSTOMY JEJUNOSTOMY NON-TUBE LAPAROSCOPIC Anorectal stricture Crohn's disease of both small and large intestine with complication 01/17/2025 12:00 PM EDT documented as of this encounter Visit Diagnoses Diagnosis Anorectal stricture- Primary Stenosis of rectum and anus Anorectal stricture Stenosis of rectum and anus Crohn's disease of both small and large intestine with complication Regional enteritis of small intestine with large intestine documented in this encounter Additional Health Concerns Assessment Noted Time PHQ-9 Depression Total Score: 0 12/27/19 11:08 AM EDT documented as of this encounter Care Teams Cad Intern Relationship Specialty Start Date End Date Chey Pillai MD [address] [facility] [place] [address] PCP - General Family Medicine 10/17/24 documented as of this encounter
--- OUTSIDE RECORDS SUMMARY | 2024-12-26 12:00 | XMS_ITS | Encounter Summary ---
Author Organization [facility] Address [address] [place] [address] Care Team Providers [employer] Producer Name Role Phone Chey Pillai MD Primary Care Prov ider Reason for Visit * Reason Comments Patient Education [facility]AS Encounter Details Date Type Department Care Team (Latest Contact Info) Description 12/26/2024 12:00 PM EDT Clinical Support Encounter [facility] [address] [phone] Henry Rodas MD [address] [phone] Anorectal stricture (Primary Dx) Social History Tobacco Use Types Packs/Day Years Used Date Smoking Tobacco: Never Smokeless Tobacco: Never Alcohol Use Standard Drinks/Week Comments Not Currently [...] PM EST documented as of this encounter Plan of Treatment Upcoming Encounters Date Type Department Care Team ( st Contact Info) Description 01/02/2025 1:00 PM EDT Clinical Support Encounter [facility] [place] [address] [phone] 01/05/2025 11:30 AM EDT Pre-Operative Nurse Assessment [facility] [address] [place] [address], [place] [phone] Henry Rodas MD [address] [phone] 01/17/2025 10:00 AM EDT Hospital Encounter [facility] [address] [place] [address], [place] [address] Henry Rodas MD [address] [phone] Anorectal stricture 01/17/2025 12:00 PM EDT - 01/17/2025 2:30 PM EDT Surgery [facility] [address] [place] [phone] Herny Rodas MD [address] [phone] ILEOSTOMY JEJUNOSTOMY NON-TUBE LAPAROSCOPIC 02/20/2025 11:00 AM EST Office Visit Division of Colon & Rectal Surgery [address] [phone] Yvette Ramirez, CHILD SUPPORT OFFICER-SKIN INSTALLER [address] [phone] Scheduled Procedures Name Priority Associated Diagnoses Date/Ti nd ILEOSTOMY JEJUNOSTOMY NON-TUBE LAPAROSCOPIC Anorectal stricture Crohn's [...] documented as of this encounter Care Teams [employer] Company Producer Relationship Specialty Start Date End Date Chey Pillai MD [address] [place] [address] PCP - General Family Medicine 10/17/24 documented as of this encounter
--- OUTSIDE RECORDS SUMMARY | 2024-12-29 10:31 | XMS_ITS | Encounter Summary ---
Author Organization [facility] Address [address] [place] [address] Care Team Providers Care Public Health Doctor Name Role Phone Chey Chin MD Primary Care Provider [phone] Encounter Details Date Type Department Care Team (Late st Contact Info) Description 11/13/2016 Ophth Exam Eye Clinic [facility] [address], [address] [place] [address] Anjali Chatman MD [address] [place] [address] Social History Tobacco Use Types Packs/Day Years Used Date Smoking Tobacco: Never Smokeless Tobacco: Never Comments:No second hand smok e exposure. Alcohol Use Standard Drinks/Week Comments No 0 (1 standard drink = 0.6 oz pur e alcohol) Comments Unknown Sex and Gender Information Value Date Recorded Sex Assigned at Not on file Legal Sex Female 10:50 AM EST Gender Identity Not on file Sexual Orientation Not on file documented as of this encounter Plan of Treatment Not on file documented as of this encounter Visit Diagnoses Not on filedocumented in this encounter Additional Health Concerns Infection Onset Date Last Indicated Resolved Time COVID-19 RESULTS PENDING 11/15/2019 11/15/201907/2019 1:28 PM EDT COVID-19 RESULTS PENDING 12/30/2019 12/30/2019 8:09 PM EDT COVID-19 RESULTS PENDING 05/18/2020 05/18/202008/2020 9:53 AM EST COVID-19 RESULTS PENDING 06/20/2020 06/20/202001/2021 8:39 PM EST COVID-19 RESULTS PENDING 07/05/2020 07/05/2020 6:44 PM EDT COVID-19 RESULTS PENDING 12/20/2020 12/20/202012/2020 9:58 AM EDT COVID-19 RESULTS PENDING 01/11/2021 01/11/202104/2020 5:52 PM EDT COVID-19 RESULTS PENDING 05/23/2021 05/23/202101/2022 11:25 AM EST COVID-19 RESULTS PENDING 06/08/2021 06/08/2021 8:19 AM EST COVID-19 RESULTS PENDING 06/09/2021 06/09/2021 11:27 AM EST COVID-19 RESULTS PENDING 06/20/2021 06/20/202101/2022 1:13 PM EST COVID-19 RESULTS PENDING 08/15/2021 08/15/202108/2021 4:34 AM EDT COVID-19 RESULTS PENDING 08/16/2021 08/16/202109/2021 3:39 PM EDT COVID-19 RESULTS PENDING 08/16/2021 08/17/202110/2021 2:15 AM EDT COVID-19 POSITIVE Comment:Patient tested COVID positive on 03/10/22 03/10/2022 03/13/2022 03/20/2022 10:36 PM EST documented as of this encounter Care Teams Public Health Doctor Relationship Specialty Start Date End Date Chey Chin MD [address] [place] [address] PCP - General Family Medicine 01/30/20 documented as of this encounter
--- OUTSIDE RECORDS SUMMARY | 2024-12-29 10:31 | XMS_ITS | Encounter Summary ---
Author Organization [facility] Address [address] [place] [address] Care Team Providers Care Grinder Set Up Operator Jig Name Role Phone Chey Chin MD Primary Care Provider [phone] Encounter Details Date Type Department Care Team (Late st Contact Info) Description 04/21/2018 Documentation Only Hematology/Oncology Clinics [address] [place] [address] [address]th Floor [place] [id number] Kita Claros MD [address] [place] [address] [place] for CPT code J1439- [facility] Ref# [id number]. Social History Tobacco Use Types Packs/Day Years [...] on file documented as of this encounter Progress Notes * Marilyn Faye - 04/21/2018 4:44 PM EST FEI for CPT code J1439- [facility] Ref# [id number]. documented in this encounter Plan of Treatment Not on [...] documented as of this encounter Care Teams Grinder Set Up Operator Jig Relationship Specialty Start Date End Date Chey Chin MD [address] [place] [address] PCP - General Family Medicine 01/30/20 documented as of this encounter
--- OUTSIDE RECORDS SUMMARY | 2024-12-29 10:31 | XMS_ITS | Encounter Summary ---
Author Organization [facility] Address [address] [place] [address] Care Team Providers Care Paint Prep Technician Name Role Phone Chey Chin MD Primary Care Provider [phone] Encounter Details Date Type Department Care Team (Late st Contact Info) Description 11/14/2016 Ophth Exam Eye Clinic [facility] [address], [address] [place] [address] Mitchell Cardenas MD [address] [place] [address] Social History Tobacco Use Types Packs/Day Years [...] documented as of this encounter Care Teams Paint Prep Technician Relationship Specialty Start Date End Date Chey Chin MD [address] [place] [address] PCP - General Family Medicine 01/30/20 documented as of this encounter
--- OUTSIDE RECORDS SUMMARY | 2024-12-29 10:31 | XMS_ITS | Encounter Summary ---
Author Organization [facility] Address [address] [facility] [address], [address] [place] [address] Care Team Providers Care Telephone Clerks Supervisor Name Role Phone Chey Pillai MD Primary Care Pr ovid Encounter Details Date Type Department Care Team (Late st Contact Info) Description 12/30/2012 Post-op Telephone [facility] General Surgery [address] [place] [address] Yvette Garcia RN Social History Tobacco Use Types Packs/Day Years Used Date Smoking Tobacco: Never Alcohol Use Standard Drinks/Week Comments No 0 (1 standard drink = 0.6 oz pur e alcohol) Comments No Sex and Gender Information Value Date Recorded Sex Assigned at Not on file Legal Sex Female 1:23 PM EST Gender Identity Not on file Sexual Orientation Not on file documented as of this encounter Plan of Treatment Upcoming Encounters Date Type Department Care Team (Late st Contact Info) Description 02/24/2025 2:15 PM EST Office Visit [facility] [address] [facility] [place], [place] [id number] Marilou Ortiz MD [address] [facility] [address] [place], [place] [id number] Return in about 6 months (around 02/19/2025). documented as of this encounter Visit Diagnoses Not on filedocumented in this encounter Care Teams Telephone Clerks Supervisor Relationship Specialty Start Date End Date Chey Pillai MD [facility] [place] [address] PCP - General Family Medicine 08/06/21 documented as of this encounter
--- OUTSIDE RECORDS SUMMARY | 2024-12-29 10:31 | XMS_ITS | Clinical Summary ---
Author Organization [facility] Address [address], [address] [place] [address] Care Team Providers Care Hogshead Builder Name Role Phone Chey Pillai MD Primary Care Pr ovider Allergies Active Allergy Reactions Criticality Noted Date Comments Bactrim Anaphylaxis High 09/11/2011 Cefdinir Rash Low 04/20/2014 Infliximab Other (See Comments) Medium 01/30/2015 Psoriasis (Remicade) Other Reaction(s): Other (See Comments), Unknown Psoriasis (Remicade) Other Reaction(s): Other (See Comments) Other Reaction(s): Other (See Comments), Unknown Psoriasis (Remicade) Psoriasis (Remicade) Omnicef Anaphylaxis High 09/11/2011 Pentamidine Headaches 12/31/2019 Flushing, headache, and vomiting with IV infusion. Tolerates aerosol for PJP prophylaxis. Sulfa Antibiotics Rash Low 05/24/2014 Sulfamethoxazole-Trime thoprim Anaphylaxis,Rash High 09/11/2011 Other Reaction(s): Unknown Vancomycin 05/27/2023 Red man syndrome Medications Calcium-Vitamin D-Vitamin K (VIACTIV PO) Take by mouth 2 times daily. Active Multiple Vitamins-Minera ls (THERAPEUTIC MULTIVITAMIN-MN NERALS) tablet Take 1 tablet by mouth daily Active diphenhydrAMINE (BENADRYL) 12.5 MG/5ML elixir Take 10 mLs by mouth every 6 hours as needed for Itching. 70 mL 1 5 Active guaiFENesin-cod eine (GUAIFENESIN AC) 100-10 MG/5ML liquid Take 10 mLs by mouth every 6 hours as needed for Cough. 1 Bottle 0 5 Active fluticasone (FLONASE) 50 MCG/ACT nasal spray 1 spray by Nasal route 2 times daily. 1 Bottle 0 5 Active Additional Information Patient not taking.Reported on 05/27/2023 fluocinolone (DERMA-SMOOTHE) 0.01 % external oil Apply to scalp at bedtime with salicylic acid. Cover scalp with shower cap and wash out in the morning. 1 Bottle 0 5 Active Additional Information Patient not taking.Reported on 05/27/2023 Salicylic Acid 6 % LOTN Apply to scalp at bedtime with fluocinolone 0.01% oil. Cover scalp with shower cap and wash out in the morning. 1 Bottle 0 5 Active Additional Information Patient not taking.Reported on 05/27/2023 fluocinolone (SYNALAR) 0.025 % ointment Apply to affected area 1 Tube 0 5 Active Additional Information Patient not taking.Reported on 06/26/2023 lansoprazole (PREVACID) 30 MG capsule Take 1 capsule by mouth daily. 30 capsule 0 5 Active Additional Information Patient not taking.Reported on 05/27/2023 vedolizumab (ENTYVIO) 300 MG injection Infuse intravenously. Active lactobacillus (BACID) TABS Take 1 tablet by mouth 3 times daily. 30 tablet 1 5 Active Additional Information Patient not taking.Reported on 05/27/2023 carboxymethylce llulose 1 % ophthalmic solution Place 1 drop into the left eye 3 times daily. 1 Bottle 4 5 Active Additional Information Patient not taking.Reported on 05/27/2023 ofloxacin (OCUFLOX) 0.3 % solution Apply 5 drops to the draining ear(s) twice a day for 7 days 10 mL 1 4 Active Additional Information Patient not taking.Reported on 06/26/2023 ustekinumab (STELARA) 90 MG/ML SOSY prefilled syringe Inject 1 mL into the skin Every 8 weeks 2 Active MV-Min-Fe Fum-FA-DHA ( 1 PO) Take 1 tablet by mouth daily Active ferrous sulfate (FE TABS 325) 325 (65 Fe) MG EC tablet Take 1 tablet by mouth 2 times daily 4 Active docusate (COLACE, DULCOLAX) 100 MG CAPS Take 100 mg by mouth 2 times daily 4 Active ciprofloxacin-d exAMETHasone (CIPRODEX) 0.3-0.1 % otic suspension 10 drops in saline 1 each 1 4 Active Active Problems Problem Noted Date Diagnosed Date Left facial swelling 07/20/2014 Orbital cellulitis on left 07/20/2014 Psoriasis of scalp 06/14/2014 Alopecia areata 06/14/2014 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 Crohn's disease of both smal l and large intestine with complication Microcytic anemia Orbital cellulitis Headache Resolved Problems Problem Noted Date Diagnosed Date Resolved Date Dehydration 07/02/2014 07/20/2014 PICC line infiltration 05/30/201407/20 Neoplasm of uncertain behavior of skin 05/08/2014 05/17/2014 Scalp lesion 04/20/2014 07/20/2014 Rash 04/20/2014 07/20/2014 Cough 04/20/2014 05/02/2014 Elevated sed rate 12/22/2012 04/19/2014 Elevated C-reactive protein (CRP) 12/22/2012 04/19/2014 Crohn's disease of both smal l and large intestine without complication 01/26/2012 5 Fever 07/20/2014 Chronic cough 07/20/2014 Encounters Date Type Department Care Team Description 10/26/2024 9:52 AM EDT - 10/28/2024 11:59 PM EDT Hospital Encounter [facility] CT Scan [address] [place] [address] Crohn's disease of both small and large intestine with complication (HCC) Discharge Disposition: Home or Self Care 10/19/2024 Transcribe Orders [facility] [address] [place] [address] Henry Rodas MD Crohn's disease of both small and large intestine with complication (HCC) (Primary Dx) from Last 3 Months Immunizations Immunization Administration Dates Next Due PPD Test 06/11/2014 Family History Medical History Relation Name Comments High Blood Pressure Father Other Father gastric duplica tion ( 2 stomachs) Other Sister auto immune ben tropenia Relation Name Status Comments Father Alive Mother Alive Sister Social History Tobacco Use Types Packs/Day Years Used Date Smoking Tobacco: Never Passive Smoke Exposure: Never Smokeless Tobacco: Never Alcohol Use Standard Drinks/Week Comments No 0 (1 standard drink = 0.6 oz pur e alcohol) Comments Unknown Sex and Gender Information Value Date Recorded Sex Assigned at Not on file Legal Sex Female 1:23 PM EST Gender Identity Not on file Sexual Orientation Not on file Last Filed Vital Signs Vital Sign Reading Time Taken Comments Blood Pressure 110/75 08/19/2024 2:26 PM EDT Pulse 68 08/19/2024 2:26 PM EDT Temperature 36.9 C (98.4 F) 08/19/2024 2:26 PM EDT Respiratory Rate 16 08/19/2024 2:26 PM EDT Oxygen Saturation 98% 08/19/2024 2:26 PM EDT Inhaled Oxygen Concentration - - Weight 78.3 kg (172 lb 9.6 oz) 08/19/2024 2:26 P M EDT Height 161.3 cm (5' 3.5 ) 08/19/2024 2:26 PM EDT Body Mass Index 30.1 08/19/2024 2:26 PM EDT Plan of Treatment Upcoming Encounters Date Type Department Care Team (Late st Contact Info) Description 02/24/2025 2:15 PM EST Office Visit [facility] [address] [place] [address] [id number] Marilou Ortiz MD [address] [facility] [address] [place], [place] [id number] Return in about 6 months (around 02/19/2025). Health Maintenance Due Date Last Done Comments Varicella vaccine (2 of 2 - 2-dose childhood series) 2005 11/07/2002 Depression Screen 2013 HIV screen 2016 HPV vaccine (1 - 3-dose series) 2016 Chlamydia/GC screen 2017 Meningococcal B vaccine (1 of 2 - Standard) 2017 Hepatitis C screen 11/04/2019 Pneumococcal 0-49 years Vaccine (1 of 2 - PCV) 2020 03/14/2003, 02/10/2003, 06/01/2002, Additional history exists Shingles vaccine (1 of 2) 2020 11/07/2002 COVID-19 Vaccine (2 - Misael risk series) 04/18/2021 03/21/2021 Pap smear 2022 DTaP/Tdap/Td vaccine (7 - Td or Tdap) 10/21/2023 10/20/2013, 12/08/2006, 02/10/2003, Additional history exists Flu vaccine (#1) 11/11/2024 02/19/2022, 08/2020, 02/29/2020, Additional history exists Hepatitis B vaccine Completed 06/01/2002, 01/04/2002, 2001 Hib vaccine Completed 02/10/2003, 05/14, 03/08/2002, Additional history exists Measles,Mumps,Rubella (MMR) vaccine Discontinued 12/08/2006, 11/07/2002 Polio vaccine Completed 12/08/2006, 05/14, 03/08/2002, Additional history exists Meningococcal (ACWY) vaccine Completed 10/25/2018, 10/20/2013 Hepatitis A vaccine Aged Out No longe r eligible based on patient's age to complete this topic Procedures Procedure Name Priority Date/Time Associated Diagnosis Comments CT ENTEROGRAPHY W WO CONTRAST Routine 10/26/2024 11:14 AM EDT Crohn's disease of both small and large intestine with complication (HCC) from Last 3 Months Results * CT ENTEROGRAPHY W WO CONTRAST (10/26/2024 11:14 AM EDT) Anatomical Region Laterality Modality Abdomen, Pelvis Computed Tomogra phy 10/31/2024 8:16 AM EDT Impressions 10/31/2024 3:37 PM EDT 1. Status post resection of the cecum [...] with luminal narrowing. Findings are suggestive of [id number] Crohn's disease. 4. Prominent asymmetric soft tissue in the right perineum compared to the left; however, no discrete abscess or fistula identified. 5. Left adnexal dermoid measuring 3.3 x 2.8 cm. 6. Mild splenomegaly. Narrative 10/31/2024 3:37 PM EDT EXAMINATION: CT ENTEROGRAPHY 10/26/2024 11:14 am TECHNIQUE: [...] both small and large intestine with complication ([facility]) TECHNOLOGIST PROVIDED HISTORY: STAT Creatinine as needed:->No [...] adnexal dermoid measures 3.3 x 2.8 cm. Peritoneum/Retroperitoneum: Trace free fluid is seen in the [...] however, no discrete abscess or fistula identified. Procedure Note Rubia Teague MD - 10/31/2024 EXAMINATION: CT ENTEROGRAPHY 10/26/2024 11:14 am TECHNIQUE: CT of the abdomen and pelvis was performed after the administration of intravenous contrast and negative oral contrast. Automated exposurecontrol, iterative reconstruction, and/or weight based adjustment of the mA/kVwas utilized to reduce the radiation dose to as low as reasonablyachievable. COMPARISON: None. HISTORY: ORDERING SYSTEM PROVIDED HISTORY: Crohn's disease of both small andlarge intestine with complication ([facility]) TECHNOLOGIST PROVIDED HISTORY: STAT Creatinine as needed:->No Reason for Exam: new polyps, inflamation and colon restriction found on colonoscopy. Additional signs and symptoms: Crohn's disease of both small and large intestine with complication Relevant Medical/Surgical History: colon resection FINDINGS: Lower Chest: Clear lung bases. Organs: The liver, gallbladder, spleen, pancreas, and adrenal glands demonstrate no acute findings. The spleen is mildly enlarged, .5 cm in length. The kidneys are symmetric in size, contour and enhancement. No solidrenal masses. No hydronephrosis. GI/Bowel: The stomach is normal. The patient appears to be status post resection of the cecum andterminal ileum. The anastomosis is unremarkable. There appears to be a shortsegment of luminal narrowing involving the distal ileum with minimal associatedwall thickening (see series 601, image 38). It is unclear if this is relatedto a mild stricture versus peristalsis. No associated obstruction.Elsewhere, small bowel including the carlos terminal ileum is unremarkable. The remaining colon demonstrates mild wall thickening of a segment ofthe proximal sigmoid colon. Moderate wall thickening of the rectum isidentified with luminal narrowing. No obvious perirectal abscess or perianalfistula; however, there is prominence of soft tissue in the right perineum. Pelvis: Normal bladder. Uterus is unremarkable. Normal right adnexa.A left adnexal dermoid measures 3.3 x 2.8 cm. Peritoneum/Retroperitoneum: Trace free fluid is seen in the pelvis. Nofree air. No pathologic lymphadenopathy. Abdominal aorta and its branchesare patent and normal in course and caliber. No significantatherosclerosis. Bones/Soft Tissues: No acute or aggressive osseous lesion. Prominent asymmetric soft tissue is identified in the right perineumcompared to the left (see series 2, image 187); however, no discrete abscess or fistula identified. IMPRESSION: 1. Status post resection of the cecum and terminal ileum. The anastomosisis unremarkable. 2. Short segment of luminal narrowing involving the distal ileum withminimal associated wall thickening. It is unclear if this is related to a mild stricture versus peristalsis. No associated obstruction. 3. Mild wall thickening of a segment of the proximal sigmoid colon.Moderate wall thickening of the rectum is identified with luminal narrowing.Findings are suggestive of wyrqk-fm-nkebkwn Crohn's disease. 4. Prominent asymmetric soft tissue in the right perineum compared tothe left; however, no discrete abscess or fistula identified. 5. Left adnexal dermoid measuring 3.3 x 2.8 cm. 6. Mild splenomegaly. Henry Rodas MD IMG CT ORDERABLES Final Resu lt from Last 3 Months Insurance [facility] [place] [facility] [place] Advance Directives * Full Code (Latest Code Status on File) Date Activated Date Inactivated Comments 07/26/2014 11:40 PM 07/28/2014 10:19 PM * Full Code Date Activated Date Inactivated Comments 07/19/2014 7:32 PM 07/25/2014 8:24 PM * Full Code Date Activated Date Inactivated Comments 07/02/2014 7:22 PM 07/07/2014 12:22 PM * Full Code Date Activated Date Inactivated Comments 04/20/2014 11:13 AM 04/26/2014 3:37 PM * Full Code Date Activated Date Inactivated Comments 03/24/2014 7:43 PM 03/25/2014 12:50 PM Care Teams Hogshead Builder Relationship Specialty Start Date End Date Chey Pillai MD [address] [place] [id number] PCP - General Family Medicine 08/06/21
--- OUTSIDE RECORDS SUMMARY | 2024-12-29 10:31 | XMS_ITS ---
Author Organization [facility] Address [address] [place] [id number] Care Team Providers Care Slope Hoist Operator Name Role Phone Chey Pillai MD Primary Care Prov ider Clinical Infusion Medication Management Service Status:Enrolled (Active) Start date:06/06/2024 Enrollment date:06/06/2024 Enrollment reason:New Start Therapy Current support & services provided:External Infusion Linked medications:Sodium Chloride,Iron Dextran () Related program episode:Infusion Medication Management (Active) Continued Care and Services Coordination
--- OUTSIDE RECORDS SUMMARY | 2024-12-29 10:31 | XMS_ITS | Encounter Summary ---
Author Organization [facility] Address [address] [facility] [place] [address] Care Team Providers Care Commis Chef Name Role Phone Chey Chin MD Primary Care Provider [phone] Serene Alfred GRAIN TRADER Unavailable [phone] Chey Chin MD Unavailable [phone] Serene Alfred GRAIN TRADER Unavailable [phone] Encounter Details Date Type Department Care Team (Late st Contact Info) Description 09/09/2023 Abstract [facility] [address] [place] [address] Jayme Hi DO [address] [place], [place] [id number] Social History Tobacco Use Types Packs/Day Years Used Date Smoking Tobacco: Never Smokeless Tobacco: Never Alcohol Use Standard Drinks/Week Comments Not Currently 0 (1 standard drink = 0.6 oz pur e alcohol) caffeine intake : Humiliation, Afraid, Rape, and Kick questionnair e Answer Date Recorded Within the last year, have y ou been afraid of your partner or ex-partner? No 02/09/2023 Within the last year, have y ou been humiliated or emotionally abused in other ways by your partner or ex-partner? No Within the last year, have y ou been kicked, hit, slapped, or otherwise physically hurt by your partner or ex-partner? No 02/09/2023 Within the last year, have y ou been raped or forced to have any kind of sexual activity by your partner or ex-partner? No 02/09/2023 Social Connection and Isolat ion Panel [NHANES] Answer Date Recorded In a typical week, how many times do you talk on the phone with family, friends, or neighbors? More than three times a week 02/09/2023 How often do you get togethe r with friends or relatives? Twice a week 02/09/2023 How often do you attend chur ch or anglican services? Never 02/09/2023 Do you belong to any clubs o r organizations such as spiritism groups, unions, fraternal or athletic groups, or school groups? No 02/09/2023 How often do you attend meet ings of the clubs or organizations you belong to? Never 02/09/2023 Are you , , di vorced, , never , or living with a partner? Living with partner 02/09/2023 AUDIT-C Answer Date Recorded Q1: How often do you have a drink containing alcohol? Never 02/09/2023 Q2: How many drinks containi ng alcohol do you have on a typical day when you are drinking? Patient does not drink Q3: How often do you have si x or more drinks on one occasion? Never 02/09/2023 Overall Financial Resource Strain (CARDIA) Answe r Date Recorded How hard is it for you to pa y for the very basics like food, housing, medical care, and heating? Not hard at all 02/09/2023 PHQ-2 Answer Date Recorded Patient Health Questionnaire-2 Score 0 06/15/2023 [facility] - Occupational Stress Questionnaire Answer Date Recorded Do you feel stress - tense, restless, nervous, or anxious, or unable to sleep at night because your mind is troubled all the time - these days? Not at all 02/09/2023 Exercise Vital Sign Answer Date Recorde d On average, how many days pe r week do you engage in moderate to strenuous exercise (like a brisk walk)? 6 days 02/09/2023 On average, how many minutes do you engage in exercise at this level? 40 min 02/09/2023 Hunger Vital Sign Answer Date Recorded Within the past 12 months, y ou worried that your food would run out before you got the money to buy more. Never true 02/10/20 23 Within the past 12 months, t he food you bought just didn't last and you didn't have money to get more. Never true 02/09/2023 PRAPARE - Transportation Answer Date Re corded In the past 12 months, has l ack of transportation kept you from medical appointments or from getting medications? No 01/13 In the past 12 months, has l ack of transportation kept you from meetings, work, or from getting things needed for daily living? No 02/09/2023 Housing Stability Vital Sign Answer Ty e Recorded In the last 12 months, was t here a time when you were not able to pay the mortgage or rent on time? No 02/09/2023 In the last 12 months, how many places have you lived? 2 02/09/2023 In the last 12 months, was t here a time when you did not have a steady place to sleep or slept in a nursing home (including now)? No 02/09/2023 Comments Yes Sex and Gender Information Value Date Recorded Sex Assigned at Not on file Legal Sex Female 6:48 PM EDT Gender Identity Not on file Sexual Orientation Not on file documented as of this encounter Plan of Treatment Not on file documented as of this encounter Visit Diagnoses Not on filedocumented in this encounter Care Teams Commis Chef Relationship Specialty Start Date End Date Chey Chin MD [address] [facility] [place] [address] PCP - General Family Medicine 10/27/22 Chey Chin MD [address] [facility] [place] [address] PCP - [place] [employer] 03/13/2303/12 Serene Alfred NP [address] [facility] [place] [address] PCP - [place] [employer] 03/13/2404/12 Serene Alfred NP [address] [place] [address] Nurse Practitioner Family Medicine 10/27/22 documented as of this encounter
--- OUTSIDE RECORDS SUMMARY | 2024-12-29 10:31 | XMS_ITS | Encounter Summary ---
Author Organization [facility] Address [address] [place] [address] Care Team Providers Care Machine Welt Butter Name Role Phone Chey Chin MD Primary Care Provider [phone] Encounter Details Date Type Department Care Team (Late st Contact Info) Description 03/11/2017 Ophth Exam Eye [facility] [address], [address] [place] [address] Mary Hargrove MD [address] [place] [address] Social History Tobacco Use Types Packs/Day Years [...] documented as of this encounter Care Teams Machine Welt Butter Relationship Specialty Start Date End Date Chey Chin MD [address] [place] [address] PCP - General Family Medicine 01/30/20 documented as of this encounter
--- OUTSIDE RECORDS SUMMARY | 2024-12-29 10:31 | XMS_ITS ---
Author Organization [facility] Address [address] [place] [address] [place] [address] Care Team Providers Care Compensation Intern Name Role Phone Chey Pillai MD Primary Care Prov ider Non-Oncology Medication Management (Clinic) Status:Enrolled (Active) Start date:10/22/2023 Enrollment date:10/22/2023 Linked medications:Risankizumab-rzaa (Active), Ustekinumab (Discontinued) Continued Care and Services Coordination
--- OUTSIDE RECORDS SUMMARY | 2024-12-29 10:31 | XMS_ITS | Clinical Summary ---
Author Organization [facility] Address [address] [place] [address] Care Team Providers Care Music Pastor Name Role Phone Unavailable Primary Care Provider Unavailabl e Allergies Active Allergy Reactions Criticality Noted Date Comments Cefdinir Anaphylaxis,Rash High 09/11/2011 Other Reaction(s): Unknown Has reaction to brand name Omnicef, but can take generic cefdinir capsules Has reaction to brand name Omnicef, but can take generic cefdinir capsules Has reaction to brand name Omnicef, but can take generic cefdinir capsules Infliximab Other Medium 01/30/2015 Other Reaction(s): Other (See Comments) Other Reaction(s): Other (See Comments), Unknown Psoriasis (Remicade) Psoriasis (Remicade) Psoriasis (Remicade) Other Reaction(s): Other (See Comments), Unknown Psoriasis (Remicade) Other Reaction(s): Other (See Comments) Other Reaction(s): Other (See Comments), Unknown Psoriasis (Remicade) Psoriasis (Remicade) Psoriasis (Remicade) Psoriasis (Remicade) Pentamidine Headache Medium 12/31/2019 Flushing, headache, and vomiting with IV infusion. Tolerates aerosol for PJP prophylaxis. 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 2 Active ustekinumab (Stelara) subcutaneous injection Inject 90 mg under the skin every 28 (twenty-eight) days. 2 Active riTUXimab (Rituxan) 10 mg/mL injection as directed Intravenous Active acetaminophen (Tylenol) 325 mg tablet Take 2 tablets by mouth every 6 (six) hours if needed. 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 Crohn's disease of both smal l and large intestine without complication 07/13/2024 Polyarthralgia 07/13/2024 Other senior living (current) drug therapy 5 Family History Medical History Relation Name Comments Hypertension Father Edgardo Arthritis Maternal Grandmother Elsi Stroke Mother Angelique Relation Name Status Comments Father Edgardo Maternal Grandmother Elsi Mother Angelique Social History Tobacco Use Types Packs/Day Years Used Date Smoking Tobacco: Never Smokeless Tobacco: Never Tobacco Cessation:Counseling Given: Not Answered Alcohol Use Standard Drinks/Week Comments Never 0 (1 standard drink = 0.6 oz pur e alcohol) PHQ-2 Answer Date Recorded Patient Health Questionnaire-2 Score 0 07/13/2024 Comments Unknown Sex and Gender Information Value Date Recorded Sex Assigned at Not on file Legal Sex Female 10:23 PM EDT Gender Identity Not on file Sexual Orientation Not on file Last Filed Vital Signs Vital Sign Reading Time Taken Comments Blood Pressure 149/78 07/13/2024 1:13 PM EDT Pulse 109 07/13/2024 1:13 PM EDT Temperature - - Respiratory Rate - - Oxygen Saturation - - Inhaled Oxygen Concentration - - Weight 80.8 kg (178 lb 1.6 oz) 07/13/2024 1:13 P M EDT Height 157.5 cm (5' 2 ) 07/13/2024 1:13 PM EDT Body Mass Index 32.57 07/13/2024 1:13 PM EDT Plan of Treatment Health Maintenance Due Date Last Done Comments Chlamydia Screening 2001 HPV Vaccines (1 - Risk 3-dose series) 2012 Meningococcal B Vaccine (1 of 2 - Standard) 2017 Varicella Vaccines (2 of 2 - 2-dose childhood series) 12/18/2017 11/07/2002 Pneumococcal Vaccine: Pediatrics (0 to 5 Years) and At-Risk Patients (6 to 64 Years) (1 of 2 - PCV) 2020 03/14/2003, 02/10/2003, 06/01/2002, Additional history exists Zoster Vaccines (1 of 2) 2020 11/07/2002 COVID-19 Vaccine (2 - Misael risk series) 04/18/2021 03/21/2021 Pap Smear 2022 Adult Tetanus 11/04/2023 10/20/2013 Influenza Vaccine (#1) 2024 , 02/15/2021, 02/15/2021, Additional history exists Depression Screening 07/13/2025 07/13/2024 HIB Vaccines Completed 02/10/2003, 05/14, 03/08/2002, Additional history exists IPV Vaccines Completed 12/08/2006, 05/14, 03/08/2002, Additional history exists Meningococcal Vaccine Completed 10/25/2018, 014 Rotavirus Vaccines Aged Out No longer eligible based on patient's age to complete this topic Insurance [employer] [facility]
--- OUTSIDE RECORDS SUMMARY | 2024-12-29 10:31 | XMS_ITS | Encounter Summary ---
Author Organization [facility] tem Address [id number] [address] [place] [address] Care Team Providers Care Industrial Maintenance Repairer Helper Name Role Phone Chey Chin MD Primary Care Provider [phone] Encounter Details Date Type Department Care Team (Late st Contact Info) Description 04/08/2023 Orders Only Maternal- Medicine at [facility] [address] [place] [address] Ref Prov, [place] [address] Social History Tobacco Use Types Packs/Day Years Used Date Smoking Tobacco: Never Smokeless Tobacco: Never Alcohol Use Standard Drinks/Week Comments Not Currently 0 (1 standard drink = 0.6 oz pur e alcohol) Childcare Answer Date Recorded Childcare Unknown 09/20/2018 Employment Answer Date Recorded Employment Unknown 09/20/2018 Comments Yes Sex and Gender Information Value Date Recorded Sex Assigned at Not on file Legal Sex Female 4:04 PM EDT Gender Identity Not on file Sexual Orientation Not on file documented as of this encounter Plan of Treatment Not on file documented as of this encounter Procedures Procedure Name Priority Date/Time Associated Diagnosis Comments UNLISTED LAB TEST Routine 02/25/2023 10:23 AM EST FREE CELL DNA (NON-[facility] SEND OUT) Routine 02/25/2023 10:21 AM EST documented in this encounter Results * Unlisted Lab Test (02/25/2023 10:23 AM EST) us Not In System Ref Prov LAB BLOOD ORDERABLES Alina l Result MANUALLY TRANSCRIBED RESULTS * Free Cell DNA (02/25/2023 10:21 AM EST) us Not In System Ref Prov LAB BLOOD ORDERABLES Alina l Result Performing Organization Address City/[facility] Co de Phone Number MANUALLY TRANSCRIBED RESULTS documented in this encounter Visit Diagnoses Not on filedocumented in this encounter Care Teams Industrial Maintenance Repairer Helper Relationship Specialty Start Date End Date Chey Chin MD [address] [place] [address] PCP - General Family Medicine 04/29/22 documented as of this encounter
--- OUTSIDE RECORDS SUMMARY | 2024-12-29 10:31 | XMS_ITS | Encounter Summary ---
Author Organization [facility] Address [address] [place] [address] Care Team Providers Care Vegetable Loader Name Role Phone Chey Chin MD Primary Care Provider [phone] Encounter Details Date Type Department Care Team (Late st Contact Info) Description 11/12/2016 Ophth Exam Eye Clinic [facility] [address], [address] [place] [address] Anjali Chatman MD [address] [place] [address] Social History Tobacco Use Types Packs/Day Years [...] documented as of this encounter Care Teams Vegetable Loader Relationship Specialty Start Date End Date Chey Chin MD [address] [place] [address] PCP - General Family Medicine 01/30/20 documented as of this encounter
--- OUTSIDE RECORDS SUMMARY | 2024-12-29 10:31 | XMS_ITS | Encounter Summary ---
Author Organization [facility] Address [address] [place] [address] Care Team Providers Care Spectroscopist Name Role Phone hCey Chin MD Primary Care Provider [phone] Encounter Details Date Type Department Care Team (Late st Contact Info) Description 08/08/2016 [facility] Exam [facility] [address], [address] [place] [address] Cyndie Triana MD [address] [place] [address] Social History Tobacco Use Types Packs/Day Years [...] documented as of this encounter Care Teams Spectroscopist Relationship Specialty Start Date End Date Chey Chin MD [address] [place] [address] PCP - General Family Medicine 01/30/20 documented as of this encounter
--- OUTSIDE RECORDS SUMMARY | 2024-12-29 10:31 | XMS_ITS | Encounter Summary ---
Author Organization [facility] Address [address] [place] [address] Care Team Providers Care Automatic Serging Machine Operator Name Role Phone Chey Chin MD Primary Care Provider [phone] Encounter Details Date Type Department Care Team (Late st Contact Info) Description 06/21/2020 Ophth Exam Eye Clinic [facility] [address], [address] [place] [id number] Leesa Argueta MD [address] [place] [address] Social History Tobacco Use Types Packs/Day Years Used Date Smoking Tobacco: Never Smokeless Tobacco: Never Comments:No second hand smok e exposure. Alcohol Use Standard Drinks/Week Comments Defer 0 (1 standard drink = 0.6 oz [...] Last Indicated Resolved Time COVID-19 RESULTS PENDING 07/05/2020 07/05/2020 6:44 PM [...] documented as of this encounter Care Teams Automatic Serging Machine Operator Relationship Specialty Start Date End Date Chey Chin MD [address] [place] [address] PCP - General Family Medicine 01/30/20 documented as of this encounter
--- OUTSIDE RECORDS SUMMARY | 2024-12-29 10:31 | XMS_ITS ---
Author Organization [facility] Address [address] [place] [id number] Care Team Providers Care Composition Siding Worker Name Role Phone Chey Pillai MD Primary Care Prov ider Clinical Infusion Medication Management Service Status:Enrolled (Active) Start date:09/12/2024 Enrollment date:09/12/2024 Enrollment reason:New Start Therapy Current support & services provided:External Infusion Linked medications:Risankizumab-rzaa (Active) Related program episode:Infusion Medication Management (Active) Overview Salvatore Iyer Continued Care and Services Coordination
--- OUTSIDE RECORDS SUMMARY | 2024-12-29 10:31 | XMS_ITS | Encounter Summary ---
Author Organization [facility] Address [address] [place] [address] Care Team Providers Care Deaf Interpreter Name Role Phone Chey Chin MD Primary Care Provider [phone] Encounter Details Date Type Department Care Team (Late st Contact Info) Description 08/04/2016 Ophth Exam [facility] [address], [address] [place] [address] Osmany Segovia MD [address] [place] [address] Social History Tobacco Use Types Packs/Day Years [...] documented as of this encounter Care Teams Deaf Interpreter Relationship Specialty Start Date End Date Chey Chin MD [address] [place] [address] PCP - General Family Medicine 01/30/20 documented as of this encounter
--- OUTSIDE RECORDS SUMMARY | 2024-12-29 10:31 | XMS_ITS | Encounter Summary ---
Author Organization [facility] Address [address] [place] [address] Care Team Providers Care Windows Server Support Technician Name Role Phone Chey Chin MD Primary Care Provider [phone] Encounter Details Date Type Department Care Team (Late st Contact Info) Description 10/08/2016 Ophth Exam [facility] [address], [address] [place] [address] Mitchell Cardenas MD [address] [place] [address] Social History Tobacco Use Types Packs/Day Years [...] documented as of this encounter Care Teams Windows Server Support Technician Relationship Specialty Start Date End Date Chey Chin MD [address] [place] [address] PCP - General Family Medicine 01/30/20 documented as of this encounter
--- OUTSIDE RECORDS SUMMARY | 2024-12-29 10:31 | XMS_ITS | Encounter Summary ---
Author Organization [facility] Address [address] [facility] [place] [address] Care Team Providers Care Student Recruiter Name Role Phone Chey Chin MD Primary Care Provider [phone] Serene Alfred HEAD HOUSEKEEPER Unavailable [phone] Chey Chin MD Unavailable [phone] Serene Alfred HEAD HOUSEKEEPER Unavailable [phone] Encounter Details Date Type Department Care Team (Late st Contact Info) Description 10/22/2023 Abstract [facility] [address] [place] [address] Xiomara Zurita DO [address] [place] [address] Social History Tobacco Use Types Packs/Day Years [...] often do you attend chur ch or jehovah's witness services? Never 02/09/2023 Do you belong to any clubs o r organizations such as muslim groups, unions, fraternal or athletic groups, or [...] Recorded Patient Health Questionnaire-2 Score 0 06/15/2023 [facility] - Occupational Stress [...] place to sleep or slept in a care home (including now)? No 02/09/2023 Comments No Sex and Gender Information Value Date Recorded Sex Assigned at Not on file Legal Sex Female 6:48 PM EDT Gender Identity Not on file Sexual Orientation Not on file documented as of this encounter Plan of Treatment Not on file documented as of this encounter Visit Diagnoses Not on filedocumented in this encounter Care Teams Student Recruiter Relationship Specialty Start Date End Date Chey Chin MD [address] [facility] [place] [address] PCP - General Family Medicine 10/27/22 Chey Chin MD [address] [facility] [place] [place] [address] PCP - Jimmy Lennon 03/13/2303/12 Serene Alfred NP [address] [facility] [place], [place] [id number] PCP - Jimmy Commercial 03/13/2404/12 Serene Alfred NP [address] [place] [address] Nurse Practitioner Family Medicine 10/27/22 documented as of this encounter
--- OUTSIDE RECORDS SUMMARY | 2024-12-29 10:31 | XMS_ITS | Encounter Summary ---
Author Organization [facility] Address [address] [facility], [address] [place] [address] Care Team Providers Care Artist Relationship Manager Name Role Phone Chey Pillai MD Primary Care Pr ovider Encounter Details Date Type Department Care Team (Latest Contact Info) Description 02/23/2024 Transcribe Orders [facility] [address] [place] [id number] Naima Coates Chronic sinusitis, unspecified location (Primary Dx) Social History Tobacco Use Types Packs/Day Years Used Date Smoking Tobacco: Never Passive Smoke Exposure: Never Smokeless Tobacco: Never Alcohol Use Standard Drinks/Week Comments No 0 (1 standard drink = 0.6 oz pur e alcohol) Comments Yes Sex and Gender Information Value Date Recorded Sex Assigned at Not on file Legal Sex Female 1:23 PM EST Gender Identity Not on file Sexual Orientation Not on file documented as of this encounter Plan of Treatment Upcoming Encounters Date Type Department Care Team (Late st Contact Info) Description 02/24/2025 2:15 PM EST Office Visit [facility] [address] [facility] [address] [place], [place] [id number] Marilou Ortiz MD [address] [facility] [address] [place], [place] [id number] Return in about 6 months (around 02/19/2025). documented as of this encounter Visit Diagnoses Diagnosis Chronic sinusitis, unspecified location- Primary documented in this encounter Care Teams Artist Relationship Manager Relationship Specialty Start Date End Date Chey Pillai MD [address] [place] [address] PCP - General Family Medicine 08/06/21 documented as of this encounter
--- OUTSIDE RECORDS SUMMARY | 2024-12-29 10:31 | XMS_ITS | Encounter Summary ---
Author Organization [facility] Address [address] [place] [address] Care Team Providers Care Automotive Alignment Specialist Name Role Phone Chey Chin MD Primary Care Provider [phone] Encounter Details Date Type Department Care Team (Late st Contact Info) Description 11/27/2016 Ophth Exam Eye Clinic [facility] [address], [address] [place] [address] Anjali Chatman MD [address] [place] [address] Social History Tobacco Use Types Packs/Day Years [...] documented as of this encounter Care Teams Automotive Alignment Specialist Relationship Specialty Start Date End Date Chey Chin MD [address] [place] [address] PCP - General Family Medicine 01/30/20 documented as of this encounter
--- OUTSIDE RECORDS SUMMARY | 2024-12-29 10:31 | XMS_ITS ---
Author Organization [facility] Address [address] [place] [phone] Care Team Providers Care Senior Sourcing Manager Name Role Phone Chey Pillai MD Primary Care Prov ider Infusion Medication Management Status:Enrolled (Active) Start date:06/06/2024 Enrollment date:06/06/2024 Enrollment reason:New Start Therapy Related service episodes:Clinical Infusion Medication Management Service (Active), Clinical Infusion Medication Management Service (Active) Continued Care and Services Coordination
--- OUTSIDE RECORDS SUMMARY | 2024-12-29 10:31 | XMS_ITS | Encounter Summary ---
Author Organization [facility] tem Address [id number] [address] [place] [address] Care Team Providers Care Army Senior Officer Name Role Phone Chey Chin MD Primary Care Provider [phone] Encounter Details Date Type Department Care Team (Late st Contact Info) Description 04/16/2023 Orders Only Maternal- Medicine at [facility] [address] [place] [address] Ref Prov, [place] [address] Social History Tobacco Use Types Packs/Day Years [...] Procedure Name Priority Date/Time Associated Diagnosis Comments ULTRASOUND OFFICE Routine 02/04/2023 8:44 AM EDT documented in this encounter Results * Ultrasound - Office (02/04/2023 8:44 AM EDT) Anatomical Region Laterality Modality AMB Ultrasound us Not In System Ref Prov IMG US ORDERABLES Final R esult documented in this encounter Visit Diagnoses Not on filedocumented in this encounter Care Teams Army Senior Officer Relationship Specialty Start Date End Date Chey Chin MD [address] [place] [address] PCP - General Family Medicine 04/29/22 documented as of this encounter
--- OUTSIDE RECORDS SUMMARY | 2024-12-29 10:31 | XMS_ITS | Encounter Summary ---
Author Organization [facility] Address [address] [place] [address] Care Team Providers Care Electroencephalographic Technologist Name Role Phone Chey Chin MD Primary Care Provider [phone] Reason for Visit * Reason Comments Coordination Of Care Inpatient approval Encounter Details Date Type Department Care Team (Latest Contact Info) Description 11/25/2016 Documentation Only [facility] [place] [address] [place] [address] [address] [place] [address] Shannen Barreto RN Inpatient approval letter received from Jimmy dated 11/20/16 Social History Tobacco Use Types Packs/Day Years [...] as of this encounter Progress Notes * Shannen Barreto RN - 11/25/2016 10:33 AM EDT Inpatient approval letter received from Jimmy dated 11/20/16 Initial request 11/11/16 to 11/12/16 2 days approved. Extension request 11/13/16 to 11/14/16 2 days approved. Total days approved:4 Ref# [id number] Placed letter in [place] to be scanned bin. documented in this encounter Plan of Treatment [...] documented as of this encounter Care Teams Electroencephalographic Technologist Relationship Specialty Start Date End Date Chey Chin MD [address] [place] [address] PCP - General Family Medicine 01/30/20 documented as of this encounter
--- OUTSIDE RECORDS SUMMARY | 2024-12-29 10:31 | XMS_ITS | Encounter Summary ---
Author Organization [facility] Address [address] [place] [address] Care Team Providers Care Client Care Manager Name Role Phone Chey Chin MD Primary Care Provider [phone] Encounter Details Date Type Department Care Team (Late st Contact Info) Description 03/12/2017 Ophth Exam Eye Clinic [facility] [address], [address] [place] [address] Mary Hargrove MD [address] [place] [address] Social History Tobacco Use Types Packs/Day Years [...] documented as of this encounter Care Teams Client Care Manager Relationship Specialty Start Date End Date Chey Chin MD [address] [place] [address] PCP - General Family Medicine 01/30/20 documented as of this encounter
--- OUTSIDE RECORDS SUMMARY | 2024-12-29 10:31 | XMS_ITS | Clinical Summary ---
Author Organization [facility] Address [id number] [address] [place] [address] Care Team Providers Care Engine Testing Supervisor Name Role Phone Chey Chin MD Primary Care Provider Allergies Active Allergy Reactions Criticality Noted Date Comments Cefdinir Anaphylaxis High 04/08/2023 Sulfamethoxazole-Trimethoprim Rash Low 2022 Medications acetaminophen (TYLENOL) 325 mg tablet Take 2 tablets (650 mg total) by mouth every 6 (six) hours as needed for pain. Active ustekinumab (STELARA) 90 mg/mL injection Inject 1 mL (90 mg total) under the skin every 3 (three) months. Active vit,yovanny 74/iron/folic ( VITAMIN 1+1 ORAL) Take 1 tablet by mouth in the morning. Active Family History Medical History Relation Name Comments Hypertension Father Blood Clots Mother Stroke Mother Relation Name Status Comments Father Mother Social History Tobacco Use Types Packs/Day Years Used Date Smoking Tobacco: Never Smokeless Tobacco: Never Alcohol Use Standard Drinks/Week Comments Not Currently 0 (1 standard drink = 0.6 oz pur e alcohol) Childcare Answer Date Recorded Childcare Unknown 09/20/2018 Employment Answer Date Recorded Employment Unknown 09/20/2018 Hunger Screening Answer Date Recorded Within the past 12 months we worried whether our food would run out before we got money to buy more. Never True 04/24/2023 Within the past 12 months th e food we bought just didn't last and we didn't have money to get more. Never True 04/24/2023 Comments No Sex and Gender Information Value Date Recorded Sex Assigned at Not on file Legal Sex Female 4:04 PM EDT Gender Identity Not on file Sexual Orientation Not on file Last Filed Vital Signs Vital Sign Reading Time Taken Comments Blood Pressure 106/68 04/24/2023 1:59 PM EST Pulse 81 04/24/2023 1:59 PM EST Temperature - - Respiratory Rate - - Oxygen Saturation - - Inhaled Oxygen Concentration - - Weight - - Height 160 cm (5' 3 ) 04/24/2023 1:59 PM EST Body Mass Index - - Plan of Treatment Health Maintenance Due Date Last Done Comments Depression Screening 2013 Adult BMI Screening 11/04/2019 Pap Smear 2022 DTaP,Tdap and Td Vaccines (7 - Td or Tdap) 10/21/2023 10/20/2013, 12/08/2006, 02/10/2003, Additional history exists Tobacco Screening 04/24/2024 04/24/2023 COVID-19 Vaccine (2 - 2024-2 6 season) 2024 03/21/2021 Influenza Vaccine 12/12/2024 02/19/2022, , 02/29/2020, Additional history exists Medical Devices Not on file Insurance [facility] MEDICAID Care Teams Engine Testing Supervisor Relationship Specialty Start Date End Date Chey Chin MD [address] [place] [address] PCP - General Family Medicine 04/29/22
--- OUTSIDE RECORDS SUMMARY | 2024-12-29 10:31 | XMS_ITS | Encounter Summary ---
Author Organization [facility] Address [address] [place] [address] Care Team Providers Care Race Car Driver Name Role Phone Chey Chin MD Primary Care Provider [phone] Encounter Details Date Type Department Care Team (Late st Contact Info) Description 08/15/2021 Ophth Exam Eye Clinic [facility] [address], [address] [place] [phone] Suraj Ba MD [address] [place] [address] Social History Tobacco Use Types Packs/Day Years Used Date Smoking Tobacco: Never Smokeless Tobacco: Never Comments:No second hand smok e exposure. Alcohol Use Standard Drinks/Week Comments Not Currently 0 (1 standard drink = 0.6 oz pur e alcohol) Overall Financial Resource Strain (CARDIA) Answe r Date Recorded How hard is it for you to pa y for the very basics like food, housing, medical care, and heating? Not hard at all 06/04/2021 Hunger Vital Sign Answer Date Recorded Within the past 12 months, y ou worried that your food would run out before you got the money to buy more. Never true 06/04/19 22 Within the past 12 months, t he food you bought just didn't last and you didn't have money to get more. Never true 06/04/2021 PRAPARE - Transportation Answer Date Re corded In the past 12 months, has l ack of transportation kept you from medical appointments or from getting medications? No 05/15 In the past 12 months, has l ack of transportation kept you from meetings, work, or from getting things needed for daily living? No 06/04/2021 Housing Stability Vital Sign Answer Ty e Recorded In the last 12 months, was t here a time when you were not able to pay the mortgage or rent on time? No 06/04/2021 In the last 12 months, how many places have you lived? 1 06/04/2021 In the last 12 months, was t here a time when you did not have a steady place to sleep or slept in a fpc (including now)? No 06/04/2021 Comments No Sex and Gender Information Value [...] Last Indicated Resolved Time COVID-19 RESULTS PENDING 08/15/2021 08/15/202108/2021 4:34 AM EDT COVID-19 RESULTS PENDING 08/16/2021 08/16/202109/2021 3:39 PM EDT COVID-19 RESULTS PENDING 08/16/2021 08/17/202110/2021 2:15 AM EDT COVID-19 POSITIVE Comment:Patient tested COVID positive on 03/10/22 03/10/2022 03/13/2022 03/20/2022 10:36 PM EST documented as of this encounter Care Teams Race Car Driver Relationship Specialty Start Date End Date Chey Chin MD [address] [place] [address] PCP - General Family Medicine 01/30/20 documented as of this encounter
--- OUTSIDE RECORDS SUMMARY | 2024-12-29 10:32 | XMS_ITS | Encounter Summary ---
Author Organization [facility] Address [address] [place] [address] Care Team Providers Care Machine Shorthand Teacher Name Role Phone Chey Chin MD Primary Care Provider [phone] Encounter Details Date Type Department Care Team (Late st Contact Info) Description 02/06/2016 Ophth Exam Eye Clinic [facility] [address], [address] [place] [address] Humberto Portillo MD [address] [place] [address] Social History Tobacco Use Types Packs/Day Years Used Date Smoking Tobacco: Never Smokeless Tobacco: Never Comments:no second hand smok e exposure Alcohol Use Standard Drinks/Week Comments No 0 [...] as of this encounter Care Teams Machine Shorthand Teacher Relationship Specialty Start Date End Date Chey Chin MD [address] [place] [address] PCP - General Family Medicine 01/30/20 documented as of this encounter
--- OUTSIDE RECORDS SUMMARY | 2024-12-29 10:32 | XMS_ITS | Encounter Summary ---
Author Organization [facility] [employer] [facility] Address [address] [place] [address] Care Team Providers Care Powerhouse Mechanic Name Role Phone Chey Pillai MD Primary Care Prov ider Reason for Visit * Reason Onset Date Comments Appointment 2024 Encounter Details Date Type Department Care Team (Late st Contact Info) Description 2024 Telephone Central Scheduling [address] [place] [address] Julianna Duran Appointment Social History Tobacco Use Types Packs/Day Years Used Date Smoking Tobacco: Never Smokeless Tobacco: Never Alcohol Use Standard Drinks/Week Comments Not Currently 0 (1 standard drink = 0.6 oz pur e alcohol) Depression Answer Date Recorded PHQ-9 Total Score (Interpret ation of Total Score 1-4 = Minimal depression; 5-9 = Mild depression; 10-14 = Moderate depression; 15-19 = Moderately severe depression) 0 10/17/2024 Comments No Sex and Gender Information Value Date Recorded Sex Assigned at Not on file Legal Sex Female 11:55 AM EDT Gender Identity Female 05/26/2024 3:24 PM EST Sexual Orientation Straight 05/26/2024 3: 24 PM EST documented as of this encounter Miscellaneous Notes * Telephone Encounter - Julianna Duran - 2024 9:28 AM EDT GHN TRIAGE (NON-SYMPTOM) MESSAGE Provider: Christin Lopez CNP Subject of call: Appointment Reason for call: Patient had surgery with Dr Rodas on 11/02. Pt was told that she needs to have a follow-up with Christin before her scheduled follow-up for the surgery within 2 weeks. Patient would prefer a VV, no current spots available before scheduled appt on 12/09. Please advise. Preferred call back time: [phone] Will warm connect patient to nursing line if symptomatic or if returning call from nurse on same day. If not symptomatic or same day call back a message will be routed and it will be a 24-48 hour turn around time documented in this encounter Plan of Treatment Upcoming Encounters Date Type Department Care Team (Late st Contact Info) Description 01/02/2025 1:00 PM EDT Clinical Support Encounter [facility] [address] [phone] 01/05/2025 11:30 AM EDT Pre-Operative Nurse Assessment Comprehensive [facility] at [facility] [address] [place] [address], [place] [address] Henry Rodas MD [address] [phone] 01/17/2025 10:00 AM EDT Hospital Encounter [facility] [address] [place] [phone] Henry Rodas MD [address] [address] Anorectal stricture 01/17/2025 12:00 PM EDT - 01/17/2025 2:30 PM EDT Surgery [facility] [address] [place] [phone] Henry Rodas MD [address] [address] ILEOSTOMY JEJUNOSTOMY NON-TUBE LAPAROSCOPIC 02/20/2025 11:00 AM EST Office Visit Division of Colon & Rectal Surgery [address] [phone] Yvette Ramirez, SYSTEMS ADMIN-FIBER ANALYST [address] [place] [address] [place] [address] Scheduled Procedures Name Priority Associated Diagnoses Date/Ti me ILEOSTOMY JEJUNOSTOMY NON-TUBE LAPAROSCOPIC Anorectal stricture Crohn's disease of both small and large intestine with complication 01/17/2025 12:00 PM EDT documented as of this encounter Visit Diagnoses Not on filedocumented in this encounter Additional Health Concerns Assessment Noted Time PHQ-9 Depression Total Score: 0 10/18/19 10:57 AM EDT documented as of this encounter Care Teams Powerhouse Mechanic Relationship Specialty Start Date End Date Chey Pillai MD [address] [place] [address] PCP - General Family Medicine 10/17/24 documented as of this encounter
--- OUTSIDE RECORDS SUMMARY | 2024-12-29 10:32 | XMS_ITS | Encounter Summary ---
Author Organization [facility] Address [address] [place] [address] Care Team Providers Care Deputy District Customs Director Name Role Phone Chey Chin MD Primary Care Provider [phone] Encounter Details Date Type Department Care Team (Latest Contact Info) Description 06/16/2016 Documentation [place] [address] Melisa Lilly LISW-Tarik [address] [place] [address] DEDE completed FMLA paperwork for mom. Social History Tobacco Use Types Packs/Day Years [...] as of this encounter Progress Notes * Melisa Lilly LISW - 06/16/2016 11:34 AM EST DEDE completed FMLA paperwork for mom. DEDE passed along to for signature. LINDA Ponce, NATALI-S GI Account Development Specialist [phone] phone [phone] pager * Melisa Lilly LISW - 06/16/2016 11:34 AM EST SW left a message for mom. FMLA paperwork completed. SW is happy to mail or fax depending on mom's preference. LINDA Ponce, JILL Account Development Specialist [phone] phone [phone] pager documented in this encounter Plan of Treatment [...] 1:13 PM EST COVID-19 RESULTS PENDING 08/15/2021 08/15/20212 4:34 AM EDT COVID-19 RESULTS PENDING 08/16/2021 08/16/202109/2021 3:39 PM EDT COVID-19 RESULTS PENDING 08/16/2021 08/17/202110/2021 2:15 AM EDT COVID-19 POSITIVE Comment:Patient tested COVID positive on 03/10/22 03/10/2022 03/13/2022 03/20/2022 10:36 PM EST documented as of this encounter Care Teams Deputy District Customs Director Relationship Specialty Start Date End Date Chey Chin MD [address] [place] [address] PCP - General Family Medicine 01/30/20 documented as of this encounter
--- OUTSIDE RECORDS SUMMARY | 2024-12-29 10:32 | XMS_ITS | Encounter Summary ---
Author Organization [facility] Address [address] [place] [address] Care Team Providers Care Charger Name Role Phone Chey Chin MD Primary Care Provider [phone] Serene Alfred BIOLOGY INTERN Unavailable [phone] Chey Chin MD Unavailable [phone] Serene Alfred BIOLOGY INTERN Unavailable [phone] Encounter Details Date Type Department Care Team (Late st Contact Info) Description 08/25/2023 Abstract [facility] [address] [place] [address] Aubree Duong CNM [address] [place], [place] [phone] Social History Tobacco Use Types Packs/Day Years [...] often do you attend chur ch or islam services? Never 02/09/2023 Do you belong to any clubs o r organizations such as taoism groups, unions, fraternal or athletic groups, or [...] Recorded Patient Health Questionnaire-2 Score 0 06/15/2023 [facility] Health - Occupational Stress Questionnaire Answer Date [...] place to sleep or slept in a retirement (including now)? No 02/09/2023 Comments Yes Sex and Gender Information Value Date Recorded Sex Assigned at Not on file Legal Sex Female 6:48 PM EDT Gender Identity Not on file Sexual Orientation Not on file documented as of this encounter Plan of Treatment Not on file documented as of this encounter Visit Diagnoses Not on filedocumented in this encounter Care Teams Charger Relationship Specialty Start Date End Date Chey Chin MD [address] [facility] [place] [address] PCP - General Family Medicine 10/27/22 Chey Chin MD [address] [facility] [place] [address] PCP - Jimmy Commercial 03/13/2303/12 Serene Alfred NP [address] [facility] [place] [address] PCP - [place] Commercial 03/13/2404/12 Serene Alfred NP [address] [place] [phone] Nurse Practitioner Family Medicine 10/27/22 documented as of this encounter
--- OUTSIDE RECORDS SUMMARY | 2024-12-29 10:32 | XMS_ITS | Encounter Summary ---
Author Organization [facility] Address [address] [place] [address] Care Team Providers Care Preschool Adviser Name Role Phone Chey Chin MD Primary Care Provider [phone] Encounter Details Date Type Department Care Team (Late st Contact Info) Description 02/05/2016 Ophth Exam Eye Clinic [facility] [address], [address] [place] [address] Ny Crump MD [address] [place] [address] Social History Tobacco Use Types Packs/Day Years [...] documented as of this encounter Care Teams Preschool Adviser Relationship Specialty Start Date End Date Chey Chin MD [address] [place] [address] PCP - General Family Medicine 01/30/20 documented as of this encounter
--- OUTSIDE RECORDS SUMMARY | 2024-12-29 10:32 | XMS_ITS ---
Author Organization [facility] Address [address] [place] [address] [place] [address] Care Team Providers Care Physician Assistant Primary Care Name Role Phone Chey iPllai MD Primary Care Prov ider Specialty Pharmacy Evaluation Program Status:Enrolled (Active) Start date:10/22/2023 Enrollment date:10/22/2023 Linked medications:Ustekinumab (Discontinued) Continued Care and Services Coordination
--- OUTSIDE RECORDS SUMMARY | 2024-12-29 10:32 | XMS_ITS | Encounter Summary ---
Author Organization [facility] Address [address] [place] [address] Care Team Providers Care Padder Cushion Name Role Phone Chey Pillai MD Primary Care Prov ider Reason for Visit * Reason Onset Date Comments Reschedule 10/21/2024 Encounter Details Date Type Department Care Team (Late st Contact Info) Description 10/21/2024 Telephone Division of Colon & Rectal Surgery [address] [place] [address] [place] [address] Henry Rodas MD [address] [place] [address] [place] [address] Reschedule Social History Tobacco Use Types Packs/Day Years [...] encounter Miscellaneous Notes * Telephone Encounter - Dillon Rodriguez - 10/24/2024 2:25 PM EDT Sue is requesting a call back at [phone] Rodas???s procedure ticket scheduler for an update regarding potentially moving her procedure to 10/28. Sue shared that she spoke with someone from the clinic regarding this on 10/21 and she is hoping to get an update. * Telephone Encounter - Steven Grajeda - 10/21/2024 10:22 AM EDT Pt looking to reschedule surgery. CB# [phone] documented in this encounter Plan of Treatment Upcoming Encounters Date Type Department Care Team (Late st Contact Info) Description 01/02/2025 1:00 PM EDT Clinical Support Encounter [facility] [address] [place] [phone] 01/05/2025 11:30 AM EDT Pre-Operative Nurse Assessment Comprehensive [facility] [place] [address] [place] [address], [place] [phone] Hnery Rodas MD [address] [phone] 01/17/2025 10:00 AM EDT Hospital Encounter [facility] [address] [place] [phone] Henry Rodas MD [address] [phone] Anorectal stricture 01/17/2025 12:00 PM EDT - 01/17/2025 2:30 PM EDT Surgery [facility] [address] [place] [phone] Henry Rodas MD [address] [phone] ILEOSTOMY JEJUNOSTOMY NON-TUBE LAPAROSCOPIC 02/20/2025 11:00 AM EST Office Visit Division of Colon & Rectal Surgery [address] [place] [address] [place] [address] Yvette Ramirez, TURNER SPLITTER MACHINE OPERATOR-CONFIGURATION MANAGEMENT CONSULTANT [address] [address] Scheduled Procedures Name Priority Associated Diagnoses Date/Ti me ILEOSTOMY JEJUNOSTOMY NON-TUBE LAPAROSCOPIC Anorectal stricture Crohn's disease of both small and large intestine with complication 01/17/2025 12:00 PM EDT documented as of this encounter Visit Diagnoses Not on filedocumented in this encounter Additional Health Concerns Assessment Noted Time PHQ-9 Depression Total Score: 0 10/18/19 10:57 AM EDT documented as of this encounter Care Teams Padder Cushion Relationship Specialty Start Date End Date Chey Pillai MD [address] [place] [address] PCP - General Family Medicine 10/17/24 documented as of this encounter
--- OUTSIDE RECORDS SUMMARY | 2024-12-29 10:32 | XMS_ITS | Encounter Summary ---
Author Organization [facility] Address [address] [place] [address] Care Team Providers Care Communications Scientist Name Role Phone Chey Pillai MD Primary Care Prov ider Encounter Details Date Type Department Care Team (Late st Contact Info) Description 12/16/2024 Results Follow-Up [facility] [address] [place] [address] Christin Lopez, BRASS BOBBIN WINDER-SENIOR CATEGORY MANAGER [address] [place], [place] [phone] LABS (OUTSIDE), LABS (OUTSIDE) Social History Tobacco Use Types Packs/Day Years Used Date Smoking Tobacco: Never Smokeless Tobacco: Never Alcohol Use Standard Drinks/Week Comments Not Currently 0 (1 standard drink = 0.6 oz pur e alcohol) Depression Answer Date Recorded PHQ-9 Total Score (Interpret ation of Total Score 1-4 = Minimal depression; 5-9 = Mild depression; 10-14 = Moderate depression; 15-19 = Moderately severe depression) 0 11/14/2024 Comments No Sex and Gender Information Value [...] 1:00 PM EDT Clinical Support Encounter [facility] [address] [place] [address] [place] [address] 01/05/2025 11:30 AM EDT Pre-Operative Nurse Assessment [facility] [address] [place] [address], [place] [address] Henry Rodas MD [address] [place] [address] 01/17/2025 10:00 AM EDT Hospital Encounter [facility]IOP [address] [place] [address], [place] [address] eHnry Rodas MD [address] [place] [address] Anorectal stricture 01/17/2025 12:00 PM EDT - 01/17/2025 2:30 PM EDT Surgery CCCT PERI [address] [place] [address], [place] [address] Henry Rodas MD [address] [place] [phone] ILEOSTOMY JEJUNOSTOMY NON-TUBE LAPAROSCOPIC 02/20/2025 11:00 AM EST Office Visit Division of Colon & Rectal Surgery [address] [place] [phone] Yvette Ramirez, BRASS BOBBIN WINDER-SENIOR CATEGORY MANAGER [address] [phone] Scheduled Procedures Name Priority Associated Diagnoses Date/Ti me ILEOSTOMY JEJUNOSTOMY NON-TUBE LAPAROSCOPIC Anorectal stricture Crohn's disease of both small and large intestine with complication 01/17/2025 12:00 PM EDT documented as of this encounter Visit Diagnoses Not on filedocumented in this encounter Additional Health Concerns Assessment Noted Time PHQ-9 Depression Total Score: 0 11/15/19 7:00 AM EDT documented as of this encounter Care Teams Communications Scientist Relationship Specialty Start Date End Date Chey Pillai MD [address] [place] [address] PCP - General Family Medicine 10/17/24 documented as of this encounter
--- OUTSIDE RECORDS SUMMARY | 2024-12-29 10:32 | XMS_ITS | Encounter Summary ---
Author Organization [facility] Address [address] [place] [address] Care Team Providers Care Thermal Surfacing Machine Operator Name Role Phone Chey Chin MD Primary Care Provider [phone] Serene Alfred MANNEQUIN DECORATOR Unavailable [phone] Chey Chin MD Unavailable [phone] Serene Alfred MANNEQUIN DECORATOR Unavailable [phone] Encounter Details Date Type Department Care Team (Late st Contact Info) Description 08/13/2023 Abstract [facility] [address] [place] [address] Aubree Duong CNM [address] [place], [place] [phone] Social History Tobacco Use Types Packs/Day Years [...] often do you attend chur ch or taoist services? Never 02/09/2023 Do you belong to any clubs o r organizations such as tenriism groups, unions, fraternal or athletic groups, or [...] Recorded Patient Health Questionnaire-2 Score 0 06/15/2023 [facility] Health - Occupational Stress Questionnaire Answer Date [...] place to sleep or slept in a longterm (including now)? No 02/09/2023 Comments Yes Sex and Gender Information Value Date Recorded Sex Assigned at Not on file Legal Sex Female 6:48 PM EDT Gender Identity Not on file Sexual Orientation Not on file documented as of this encounter Plan of Treatment Not on file documented as of this encounter Visit Diagnoses Not on filedocumented in this encounter Care Teams Thermal Surfacing Machine Operator Relationship Specialty Start Date End Date Chey Chin MD [address] [facility] [place] [address] PCP - General Family Medicine 10/27/22 Chey Chin MD [address] [facility] [place] [address] PCP - Jimmy Commercial 03/13/2303/12 Serene Alfred NP [address] [facility] [place] [address] PCP - [place] Commercial 03/13/2404/12 Serene Alfred NP [address] [place] [phone] Nurse Practitioner Family Medicine 10/27/22 documented as of this encounter
--- OUTSIDE RECORDS SUMMARY | 2024-12-29 10:32 | XMS_ITS | Encounter Summary ---
Author Organization [facility] Address [address] [place] [id number] Care Team Providers Care Sinker Winder Name Role Phone Chey Pillai MD Primary Care Prov ider Reason for Visit * Reason Onset Date Comments Appointment 12/26/2024 Encounter Details Date Type Department Care Team (Late st Contact Info) Description 12/26/2024 Telephone Division of Colon & Rectal Surgery [address] [place] [address] [place] [address] Henry Rodas MD [address] [facility] [address] [place] [address] Appointment Social History Tobacco Use Types Packs/Day [...] encounter Miscellaneous Notes * Telephone Encounter - Emperatriz Reich - 12/26/2024 12:50 PM EDT Images from the original note were not included. Pt released from checkout with itinerary in hand. All RTC appts scheduled per AVS/checkout notes & to patient satisfaction. REFERRAL(S) SCHEDULED : (yes/no): Surgery, WOC RN, CHRISTIAN scheduled documented in this encounter Plan of Treatment Upcoming Encounters Date Type Department Care Team (Late st Contact Info) Description 01/02/2025 1:00 PM EDT Clinical Support Encounter [facility] [address] [place] [address] 01/05/2025 11:30 AM EDT Pre-Operative Nurse Assessment Comprehensive Pre [facility]est[facility] Center at [facility] [address] [place] [address], [place] [address] Henry Rodas MD [address] [address] 01/17/2025 10:00 AM EDT Hospital Encounter [facility]IOP [address] [place] [address], [place] [address] Henry Rodas MD [address] [address] Anorectal stricture 01/17/2025 12:00 PM EDT - 01/17/2025 2:30 PM EDT Surgery [facility]CT PERIOP [address] [place] [phone] Henry Rodas MD [address] [address] ILEOSTOMY JEJUNOSTOMY NON-TUBE LAPAROSCOPIC 02/20/2025 11:00 AM EST Office Visit Division of Colon & Rectal Surgery [address] [address] Yvette Ramirez, PAMPHLET DISTRIBUTOR-ASSISTANT CORPORATION COUNSEL [address] [address] Scheduled Procedures Name Priority Associated Diagnoses Date/Ti me ILEOSTOMY JEJUNOSTOMY NON-TUBE LAPAROSCOPIC Anorectal stricture Crohn's disease of both small and large intestine with complication 01/17/2025 12:00 PM EDT documented as of this encounter Visit Diagnoses Not on filedocumented in this encounter Additional Health Concerns Assessment Noted Time PHQ-9 Depression Total Score: 0 12/27/19 11:08 AM EDT documented as of this encounter Care Teams Sinker Winder Relationship Specialty Start Date End Date Chey Pillai MD [address] [place] [address] PCP - General Family Medicine 10/17/24 documented as of this encounter
--- OUTSIDE RECORDS SUMMARY | 2024-12-29 10:32 | XMS_ITS | Encounter Summary ---
Author Organization [facility] Address [address] [place] [address] Care Team Providers Care Zipper Ironer Name Role Phone Chey Chin MD Primary Care Provider [phone] Serene Alfred RESPIRATORY TECHNICIAN Unavailable [phone] Encounter Details Date Type Department Care Team (Late st Contact Info) Description 09/16/2024 Orders Only [facility] [address] [place] [address] Rubia Hernandez NP [address] [place] [address] Social History Tobacco Use Types Packs/Day Years [...] neighbors? More than three times a week 05/17/2024 How often do you get togethe r with friends or relatives? More than three times a week 05/17/2024 How often do you attend chur ch or sikhism services? Never 05/17/2024 Do you belong to any clubs o r organizations such as restoration groups, unions, fraternal or athletic groups, or school groups? No 05/17/2024 How often do you attend meet ings of the clubs or organizations you belong to? Never 05/17/2024 Are you , , di vorced, , never , or living with a partner? Living with partner 05/17/2024 AUDIT-C Answer Date Recorded Q1: How often do you have a drink containing alcohol? Never 05/17/2024 Q2: How many drinks containi ng alcohol do you have on a typical day when you are drinking? Patient does not drink Q3: How often do you have si x or more drinks on one occasion? Never 05/17/2024 Overall Financial Resource Strain (CARDIA) Answe r Date Recorded How hard is it for you to pa y for the very basics like food, housing, medical care, and heating? Not hard at all 05/17/2024 PHQ-2 Answer Date Recorded Patient Health Questionnaire-2 Score 0 01/27/2024 [facility] of Occupat ional [facility] - Occupational Stress Questionnaire Answer Date Recorded Do you feel stress - tense, restless, nervous, or anxious, or unable to sleep at night because your mind is troubled all the time - these days? Not at all 05/17/2024 Exercise Vital Sign Answer Date Recorde d On average, how many days pe r week do you engage in moderate to strenuous exercise (like a brisk walk)? 4 days 05/17/2024 On average, how many minutes do you engage in exercise at this level? 30 min 05/17/2024 Hunger Vital Sign Answer Date Recorded Within the past 12 months, y ou worried that your food would run out before you got the money to buy more. Never true 02/04/20 25 Within the past 12 months, t he food you bought just didn't last and you didn't have money to get more. Never true 05/17/2024 PRAPARE - Transportation Answer Date Re corded In the past 12 months, has l ack of transportation kept you from medical appointments or from getting medications? No 07/2024 In the past 12 months, has l ack of transportation kept you from meetings, work, or from getting things needed for daily living? No 05/17/2024 Housing Stability Vital Sign Answer Ty e [...] a nursing home (including now)? No 02/09/2023 Housing Stability Vital Sign Answer Ty e Recorded In the last 12 months, was t here a time when you were not able to pay the mortgage or rent on time? No 05/17/2024 In the past 12 months, how m any times have you moved where you were living? 0 05/17/2024 At any time in the past 12 m [facility], were you homeless or living in a nursing home (including now)? No 05/17/2024 Comments Unknown Sex and Gender Information Value Date Recorded Sex Assigned at Not on file Legal Sex Female 6:48 PM EDT Gender Identity Not on file Sexual Orientation Not on file documented as of this encounter Plan of Treatment Not on file documented as of this encounter Visit Diagnoses Not on filedocumented in this encounter Care Teams Zipper Ironer Relationship Specialty Start Date End Date Chey Chin MD [address] [facility] [place], [place] [id number] PCP - General Family Medicine 10/27/22 Serene Alfred NP [address] [facility] [place] [address] Nurse Practitioner Family Medicine 10/27/22 documented as of this encounter
--- OUTSIDE RECORDS SUMMARY | 2024-12-29 10:32 | XMS_ITS | Encounter Summary ---
Author Organization [facility] Address [address] [facility] [place] [address] Care Team Providers Care Dry Plasterer Helper Name Role Phone Chey Chin MD Primary Care Provider Serene Alfred MD DO [facility] Unavailable [phone] Chey Chin MD Unavailable [phone] eSrene Alfred MD DO [facility] Unavailable [phone] Encounter Details Date Type Department Care Team (Late st Contact Info) Description 09/06[facility]2023 [facility] [address] [place] [address] Chey Chin MD [address] [place] [address] Social History Tobacco Use Types [...] 02/09/2023 How often do you attend chur or moravian services? Never 02/09/2023 Do you belong to any clubs o r organizations such as catholic groups, unions, fraternal or athletic groups, or [...] Recorded Patient Health Questionnaire-2 Score 0 06/15/2023 [facility] of Occupat ional Health - Occupational Stress [...] on filedocumented in this encounter Care Teams Dry Plasterer Helper Relationship Specialty Start Date End Date Chey Chin MD [address] [facility] [place] [address] PCP - General Family Medicine 10/27/22 Chey Chin MD [address] [facility] [place] [address] PCP - [place] [employer] 03/13/2303/12 Serene Alfred NP [address] [facility] [place] [address] PCP - [place] [employer] 03/13/2404/12 Serene Alfred NP [address] [id number] Nurse Practitioner Family Medicine 10/27/22 documented as of this encounter
--- OUTSIDE RECORDS SUMMARY | 2024-12-29 10:32 | XMS_ITS | Encounter Summary ---
Author Organization [facility] Address [address] [place] [address] Care Team Providers Care Airplane Pilot Chief Name Role Phone Chey Chin MD Primary Care Provider [phone] Serene Alfred RADIO STATION AUDIO ENGINEER Unavailable [phone] Chey Chin MD Unavailable [phone] Serene Alfred RADIO STATION AUDIO ENGINEER Unavailable [phone] Encounter Details Date Type Department Care Team (Late st Contact Info) Description 08/21/2023 Orders Only [facility] [address] [place] [id number] Aubree Duong CNM [address] [place], [place] [id number] Social History Tobacco Use Types Packs/Day Years [...] any clubs o r organizations such as anabaptist groups, unions, fraternal or athletic groups, or [...] Recorded Patient Health Questionnaire-2 Score 0 06/15/2023 [facility] of Occupat ional Health - Occupational Stress [...] place to sleep or slept in a jail (including now)? No 02/09/2023 Comments Yes Sex and Gender Information Value Date Recorded Sex Assigned at Not on file Legal Sex Female 6:48 PM EDT Gender Identity Not on file Sexual Orientation Not on file documented as of this encounter Plan of Treatment Not on file documented as of this encounter Visit Diagnoses Not on filedocumented in this encounter Care Teams Airplane Pilot Chief Relationship Specialty Start Date End Date Chey Chin MD [address] [place] [address] PCP - General Family Medicine 10/27/22 Chey Chin MD [address] [facility] [place] [address] PCP - [place] [employer] 03/13/2303/12 Serene Alfred NP [address] [facility] [place] [address] PCP - [place] [employer] 03/13/2404/12 Serene Alfred NP [address] [place] [address] Nurse Practitioner Family Medicine 10/27/22 documented as of this encounter
--- OUTSIDE RECORDS SUMMARY | 2024-12-29 10:32 | XMS_ITS | Encounter Summary ---
Author Organization [facility] Address [address] [facility] [place] [address] Care Team Providers Care Manager Small Business Name Role Phone Chey Chin MD Primary Care Provider Serene Alfred EDUCATION INSTRUCTOR Unavailable [phone] Cehy Chin MD Unavailable [phone] Serene Alfred EDUCATION INSTRUCTOR Unavailable [phone] Encounter Details Date Type Department Care Team (Late st Contact Info) Description 09/04/2023 Abstract [facility] [address] [place] [address] Chey Chin MD [address] [place] [address] Social History Tobacco Use Types [...] How often do you attend chur or sikhism services? Never 02/09/2023 Do you belong to any clubs o r organizations such as congregational groups, unions, fraternal or athletic groups, or [...] place to sleep or slept in a usp (including now)? No 02/09/2023 Comments Yes Sex and Gender Information Value Date Recorded Sex Assigned at Not on file Legal Sex Female 6:48 PM EDT Gender Identity Not on file Sexual Orientation Not on file documented as of this encounter Plan of Treatment Not on file documented as of this encounter Visit Diagnoses Not on filedocumented in this encounter Care Teams Manager Small Business Relationship Specialty Start Date End Date Chey Chin MD [address] [facility] [place] [address] PCP - General Family Medicine 10/27/22 Chey Chin MD [address] [facility] [place] [address] PCP - [place] [employer] 03/13/2303/12 Serene Alfred NP [address] [facility] [place] [address] PCP - [place] [employer] 03/13/2404/12 Serene Alfred NP [address] [phone] Nurse Practitioner Family Medicine 10/27/22 documented as of this encounter
--- OUTSIDE RECORDS SUMMARY | 2024-12-29 10:32 | XMS_ITS | Clinical Summary ---
Author Organization [facility] Address [address] [place] [address] Care Team Providers Care Crm Business Analyst Name Role Phone Chey Chin MD Primary Care Provider [phone] Serene Alfred TOOL CRIB SUPERVISOR Unavailable [phone] Allergies Active Allergy Reactions Criticality Noted Date Comments Cefdinir Anaphylaxis,Rash High 09/11/2011 Has reaction to brand name Omnicef, but can take generic cefdinir capsules Infliximab Other Medium 01/30/2015 Psoriasis (Remicade) Pentamidine Headache Medium 12/31/2019 Flushing, headache, and vomiting with IV infusion. Tolerates aerosol for PJP prophylaxis. Sulfa Antibiotics Rash Low 05/24/2014 Sulfamethoxazole-Trimeth oprim Anaphylaxis,Rash High 09/11/2011 Vancomycin Low 08/08/2014 Other Reaction(s): Magdalene Syndrome, Unknown Medications acetaminophen (Tylenol) 325 MG tablet Take 2 tablets by mouth every 6 (six) hours if needed. 2 Active riTUXimab (Rituxan) 100 MG/10ML chemo injection as directed Intravenous Active ferrous sulfate (Fe Tabs) 325 (65 Fe) MG EC tabletIndicatio ns:Anemia during in third trimester ([facility]) Take 1 tablet (325 mg) by mouth in the morning and 1 tablet (325 mg) before bedtime. Do not crush, chew, or split.. 60 tablet 3 4 Active ibuprofen 600 MG tablet Take 600 mg by mouth every 6 (six) hours if needed for mild pain or moderate pain 4 Active dextrose 5 % solution 500 mL with riTUXimab 500 MG/50ML solution 375 mg/m2 Infuse into a venous catheter Active azithromycin (Zithromax) 250 MG tabletIndicatio ns:Acute bilateral otitis media Take 2 tablets (500mg) on day 1, then 1 tablet daily (250mg) on days 2-5 6 tablet 5 Active albuterol HFA 90 mcg/act inhalerIndicati ons:Wheezing Inhale 2 puffs every 4 (four) hours if needed for wheezing 18 g 5 09/27/19 26 Active Hospital, Clinic, or Other Facility Administered Medication Ordered Dose Route Frequency Start Date End Date Status albuterol 0.63 MG/3ML nebulizer solution 0.63 mgIndications:Upper respiratory infection with cough and congestion 0.63 mg NEBULIZATION Once 06/16/2023 Active Active Problems Problem Noted Date Diagnosed Date Iron deficiency 07/15/2024 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 Polyarthralgia 07/13/2024 Depression 02/10/2024 Hidradenitis suppurativa 09/01/2023 Idiopathic orbital inflammatory syndrome, 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 Obesity (BMI 30.0-34.9) 02/25/2023 Adalimumab (Humira) long-term use 10/27/2022 Crohn's disease 10/27/2022 Gastroesophageal reflux disease 10/27/2022 Immunodeficiency 10/27/2022 Leukocytosis 10/27/2022 Microcytic anemia 10/27/2022 At risk for infection due to immunosuppression 0 06/09/2021 Overview (10/27/2022): Autoimmune/Autoinflammatory Condition: Underlying diagnosis: 20yo immunocompromised female with a history of Crohn's disease (on Humira q 10 days since 2018, IBD well controlled 2-3/day formed stools), 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, no recent flare, last dose 01/11/2021 and 01/24/2021), psoriasis, 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 and known pulmonary nodules, recurrent sinusitis which triggers orbital myositis and requires 2/year sinus surgery Most recent/current immunosuppressive regimen: Adalidumab Q10 days, Ritux Q 6 months (last 01/24/21) Antimicrobial Prophylaxis: PJP: Pentamidine (last dose 06/22/20) Other pertinent immunosuppressive/immunomodulatory medications IVI07/05/20 and 08/13/20, both espisodes, she had symptoms of meningitis concerning for IVIG induced aseptic meningitis ID history Date source ID Sensies - comments Misc 04/21/19 Fluid sinus Prevotella spp 06/11/18 Sinus tissue MSSA Strep anginosus CoNS 06/20/20 Urine clean catch E. Coli GBS CoNS 06/04/21 Drainage sinus Rare GNR Mod H. flu Few S. aureus MSSA and beta-lactam negative H flu S/p levofloxacin x14 d per ENT prior to current culture; based on s/s, will treat with amox-clav 2g q12h for acute rhinosinusitis x 2 weeks 06/04/21 Urine 30 000 E coli parada-S Co concerns for UTI based on renal US and clinical s/s ## Most recent course of antibiotics was given in June to early July for sinusitis (levofloxacin then amox/clav. 06/08 sinus drainage grew BL negative H influenza and MSSA) and PO vancomycin for recurrent C diff; last amox/clav dose on 06/24/2021 (per mom, no clinical response to antibiotics this time) and PO vancomycin taper was finished around the end of antibiotics therapy. 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 Will continue current topical compounded clobetasol with addition of halobetasol directly to alopecic areas on scalp. Resolved Problems Problem Noted Date Diagnosed Date Resolved Date Decreased appetite 10/27/2022 4 Aseptic meningitis ([facility]) 08/18/2021 01/27/2024 Abnormal brain MRI 06/22/2020 4 Intertrigo 04/17/2020 01/27/2024 Overview (10/27/2022): Last Assessment & Plan: New lesion under right breast consistent with intertrigo, given Sue's history differential includes inverse psoriasis, though no other current cutaneous psoriasis. Will start treatment with low potency topical steroid. Advised to contact us in 2-3 weeks if no improvement for addition of anti-fungal cream. Bronchiectasis 04/16/2020 01/27/2024 Orbital myositis 11/11/2016 01/27/2024 BMI 29.0-29.9,adult 11/23/2014 01/27/20 24 Left facial swelling 07/20/2014 024 Orbital cellulitis on left 07/20/2014 1 Encounters Date Type Department Care Team Description 12/28/2024 Clinisync Result Encounter [facility] External Department Unsolicited Provider, Generic External Data 12/09/2024 Clinisync Result Encounter [facility] External Department Unsolicited Provider, Generic External Data 10/31/2024 Clinisync Result Encounter [facility] External Department Unsolicited Provider, Generic External Data from Last 3 Months Immunizations Immunization Administration Dates Next Due DTP 02/10/2003 DTaP 12/08/2006, 3,03/08/2002,01/04 Hep B, Adolescent or Pediatric 01/04/2002,2001 Hep B, adult 08/11/2022,06/26/2022 Hib (PRP-T) 02/10/2003,03/08/2002,01/04/2002 Hib / Hep B 06/01/2002 IPV 12/08/2006, 3,03/08/2002,01/04 Influenza Whole 03/14/2003,02/10/2003 Influenza, injectable, quadr ivalent, preservative free 02/19/2022,02/15/2021,02/29/2020,02/20,04/29/2019,05/05/2013 Influenza, live, intranasal, quadrivalent 11/20/2017 Influenza, seasonal, injectable 01/17/2005 Influenza, seasonal, injecta ble, preservative free 01/08/2018,02/04/2016,03/17/2014 MMR 12/08/2006,11/07/2002 Meningococcal MCV4O 10/25/2018 Meningococcal MCV4P 10/20/2013 PPD Test 05/13/2022,04/30/2022,06/11/2014 Pneumococcal Conjugate PCV 7 03/14/2003, 02/10/2003,06/01/2002,03/08 Tdap 10/20/2013 Varicella 11/07/2002 Family History Medical History Relation Name Comments Hypertension Father Kian Marroquin Stroke Mother Angelique Marroquin Relation Name Status Comments Father Kian Marroquin Alive Mother Angelique Marroquin Alive Social History Tobacco Use Types Packs/Day Years [...] often do you attend chur ch or adventism services? Never 05/17/2024 Do you belong to any clubs o r organizations such as nondenominational groups, unions, fraternal or athletic groups, or [...] Recorded Patient Health Questionnaire-2 Score 0 01/27/2024 [facility] - Occupational [...] the money to buy more. Never true 05/17/19 25 Within the past 12 months, t [...] place to sleep or slept in a mcc (including now)? No 02/09/2023 Housing Stability Vital Sign Answer Ty e Recorded In the last 12 months, was t here a time when you were not able to pay the mortgage or rent on time? No 05/17/2024 In the past 12 months, how m any times have you moved where you were living? 0 05/17/2024 At any time in the past 12 m [facility], were you homeless or living in a mcc (including now)? No 05/17/2024 Comments Unknown Sex and Gender Information Value Date Recorded Sex Assigned at Not on file Legal Sex Female 6:48 PM EDT Gender Identity Not on file Sexual Orientation Not on file Last Filed Vital Signs Vital Sign Reading Time Taken Comments Blood Pressure 104/74 09/26/2024 4:04 PM EDT Pulse 92 09/26/2024 4:04 PM EDT Temperature 36.4 C (97.5 F) 09/26/2024 4:04 PM EDT Respiratory Rate 18 08/01/2024 5:40 PM EDT Oxygen Saturation 95% 09/26/2024 4:04 PM EDT Inhaled Oxygen Concentration - - Weight 74.8 kg (165 lb) 09/26/2024 4:04 PM EDT Height 160 cm (5' 3 ) 08/01/2024 5:40 PM EDT Body Mass Index 29.23 08/01/2024 5:40 PM EDT Plan of Treatment Health Maintenance Due Date Last Done Comments Influenza Vaccine (#1) 2024 2, 02/15/2021, 02/29/2020, Additional history exists Procedures Procedure Name Priority Date/Time Associated Diagnosis Comments ALL CBC WITH AUTO DIFF Routine 12/28/2024 12:33 PM EDT [facility] FERRITIN Routine 12/28/2024 12:33 PM EDT METRO IRON AND TIBC Routine 12/28/2024 1 2:33 PM EDT ALL C REACTIVE PROTEIN Routine 12/09/2024 10:55 AM EDT [facility] CMP (CMP) (FOR REMOTE [facility] USE) Routine 12/09/2024 10:55 AM EDT ALL SED RATE Routine 12/09/2024 10:55 AM EDT ALL CBC WITH AUTO DIFF Routine 12/09/2024 10:[address] ENTEROGRAPHY 10/31/2024 3:37 PM EDT from Last 3 Months Results * (ABNORMAL) METRO IRON AND TIBC (12/28/2024 12:33 PM EDT) TBH IRON 22.0(L) 50.0 - 170.0 ug/dL TBH TBH TOTAL IRON BINDING CAPACITY 178.0(L) 250.0 - 450.0 ug/dL TBH TBH PERCENT IRON SATURATION 12.4 % TBH 12/28/2024 12:3 3 PM EDT 12/28/2024 12:35 PM EDT Narrative CLINISYNC - 12/28/2024 1:16 PM EDT us Generic External Data Provider [facility] ([facility] FERRITIN (12/28/2024 12:33 PM EDT) Pathologist [facility] FERRITIN 335.0(H) 8.0 - 252.0 ng/mL TBH 12/28/2024 12:3 3 PM EDT 12/28/2024 12:35 PM EDT Narrative KIMMY - 12/28/2024 1:21 PM EDT us Generic External Data Provider CLINISYNC F inal Result [facility] * (ABNORMAL) ALL CBC WITH AUTO DIFF (12/28/2024 12:33 PM EDT) Only the most recent of2 resultswithin the time period is included. [facility] TB WBC 11.0 4.0 - 11.0 10 3/uL TBH TBH RBC 4.39 4.20 - 5.40 10 6/uL TBH TBH HGB 12.4 12.0 - 16.0 g/dL TBH TBH HCT 38.2 36.0 - 48.0 % TBH TBH MCV 87.0 81.0 - 99.0 fL TBH TBH MCH 28.2 26.7 - 34.0 pg TBH TBH MCHC 32.5 29.9 - 35.2 g/dL TB TB RDW 14.1 11.0 - 15.0 % TBH TBH PLT 243 150 - 450 10 3/uL TBH TBH MPV 10.6 9.5 - 13.5 fL TBH NEUTROPHILS PERCENT AUTO 79.8(H) 43.0 - 75.0 % TBH LYMPHOCYTES PERCENT AUTO 10.4(L) 20.5 - 60.0 % TBH MONOCYTES PERCENT AUTO 7.1 1.7 - 12.0 % TBH TBH EO % 1.8 0.9 - 7.0 % TBH BASOPHILS PERCENT AUTO 0.5 0.2 - 2.0 % TBH IMMATURE GRANULOCYTES PCT AUTO 0.4 0.0 - 0.5 % TBH NEUTROPHILS ABSOLUTE AUTO 8.8(H) 1.4 - 6.5 10 3/uL TBH LYMPHOCYTES ABSOLUTE AUTO 1.1(L) 1.2 - 3.8 10 3/uL TBH MONOCYTES ABSOLUTE AUTO 0.8 0.3 - 0.8 10 3/uL TBH TBH EO # 0.2 0.0 - 0.7 10 3/uL TBH BASOPHILS ABSOLUTE AUTO 0.1 0.0 - 0.1 10 3/uL TBH IMMATURE GRANULOCYTES ABS AUTO 0.04(H) 0.00 - 0.03 10 3/uL TBH 12/28/2024 12:3 3 PM EDT 12/28/2024 12:35 PM EDT Narrative CLINISYNC - 12/28/2024 2:10 PM EDT us Generic External Data Provider CLINISYNC F inal Result [facility]IS[facility]NC [facility] * (ABNORMAL) [facility] CMP (CMP) (FOR REMOTE [facility] USE) (12/09/2024 10:55 AM EDT) SODIUM 143 136 - 145 mmol/L TBH POTASSIUM 4.1 3.5 - 5.1 mmol/L TBH CHLORIDE 106 98 - 107 mmol/L TBH CARBON DIOXIDE 27.5 21.0 - 32.0 mmol/L TBH ANION GAP 13.6 TBH GLUCOSE 74 74 - 106 mg/dL TBH BLOOD UREA NITROGEN 7.0 7.0 - 18.0 mg/dL TBH CREATININE 0.56 0.55 - 1.02 mg/dL TBH TBH EGFR-AF MAURITIAN >60 >=60 mL/min/1. 73m 2 TBH TBH EGFR-NON AF MAURITIAN >60 >=60 mL/min/1. 73m 2 TBH BUN CREATININE RATIO 12.5 TBH CALCIUM 8.9 8.5 - 10.1 mg/dL TBH BILIRUBIN TOTAL 0.5 0.2 - 1.0 mg/dL TBH ASPARTATE AMINO TRANSFERASE 8(L) 15 - 37 U/L TBH ALANINE AMINOTRANSFERASE 15 14 - 59 U/L TBH ALKALINE PHOSPHATASE 60 46 - 116 U/L TBH TOTAL PROTEIN 6.0(L) 6.4 - 8.2 g/dL TBH ALBUMIN LEVEL 3.2(L) 3.4 - 5.0 g/dL TBH GLOBULIN 2.8 g/dL TBH ALBUMIN GLOBULIN RATIO 1.1 TBH 12/09/2024 10:5 5 AM EDT 12/09/2024 11:30 AM EDT [facility] REJIISYLA - 12/09/2024 12:40 PM EDT Generic External Data Provider CLINISYNC F inal Result Performing Organization Address [facility] Phone Number [facility] * ALL SED RATE (12/09/2024 10:55 AM EDT) Pathologist [facility] SED RATE 15 <=20 mm/hr TB 12/09/2024 10:5 5 AM EDT 12/09/2024 11:30 AM EDT [facility] HOMEROLA - 12/09/2024 11:52 AM EDT Generic External Data Provider CLINISYNC F inal Result Performing Organization Address [facility] Phone Number [facility] * (ABNORMAL) ALL C REACTIVE PROTEIN (12/09/2024 10:55 AM EDT) [facility] C REACTIVE PROTEIN 0.77(H) <=0.50 mg/dL TB 12/09/2024 10:5 5 AM EDT 12/09/2024 11:30 AM EDT [facility] HOMEROLA - 12/09/2024 12:40 PM EDT Generic External Data Provider CLINISYNC F inal Result Performing Organization Address [facility] Phone Number [facility] * CT ENTEROGRAPHY (ABD/PEL WITH) (10/31/2024 3:37 PM EDT) Anatomical Region Laterality Modality Body, Pelvis, Abdomen Computed T omography 10/31/2024 3:37 PM EDT Narrative 11/01/2024 11:02 AM EDT EXAMINATION: CT ENTEROGRAPHY 10/26/2024 11:14 am [...] associated obstruction. Elsewhere, small bowel including the carols terminal ileum is unremarkable. The remaining colon [...] with luminal narrowing. Findings are suggestive of [id number] Crohn's disease. 4. Prominent asymmetric soft tissue in the right perineum compared to the left; however, no discrete abscess or fistula identified. 5. Left adnexal dermoid measuring 3.3 x 2.8 cm. 6. Mild splenomegaly. Interpreted by: Rubia Teague MD Signed by: Rubia Teague MD 10/31/24 Final result Procedure Note Radiology, Radiologist, MD - 11/01/2024 EXAMINATION: CT ENTEROGRAPHY 10/26/2024 11:14 [...] of both small andlarge intestine with complication ([facility]) TECHNOLOGIST PROVIDED HISTORY: STAT Creatinine as needed:->No Reason for Exam: new polyps, inflamation and colon restriction found on colonoscopy. Additional signs and symptoms: Crohn's disease of both small and large intestine with complication Relevant Medical/Surgical History: colon resection FINDINGS: Lower Chest: Clear lung bases. Organs: The liver, gallbladder, spleen, pancreas, and adrenal glands demonstrate no acute findings. The spleen is mildly enlarged, fdomislov71.5 cm in length. The kidneys are symmetric [...] identified with luminal narrowing.Findings are suggestive of [id number] Crohn's disease. 4. Prominent asymmetric soft tissue in the right perineum compared tothe left; however, no discrete abscess or fistula identified. 5. Left adnexal dermoid measuring 3.3 x 2.8 cm. 6. Mild splenomegaly. Interpreted by: Rubia Teague MD Signed by: Rubia Teague MD 10/31/24 Final result [facility] [place] Data Provider IMG CT PROCEDURES Final Result from Last 3 Months Insurance [employer] [place] Care Teams Crm Business Analyst Relationship Specialty Start Date End Date Chey Chin MD [address] [place] [address] PCP - General Family Medicine 10/27/22 Serene Alfred NP [address] [place] [address] Nurse Practitioner Family Medicine 10/27/22
--- OUTSIDE RECORDS SUMMARY | 2024-12-29 10:32 | XMS_ITS | Encounter Summary ---
Author Organization [facility] Address [address] [place] [address] Care Team Providers Care Steam Generating Powerplant Mechanic Name Role Phone Chey Chin MD Primary Care Provider [phone] Serene Alfred CIVIL LABORATORY TECHNICIAN Unavailable [phone] Encounter Details Date Type Department Care Team (Late st Contact Info) Description 12/28/2024 Clinisync Result Encounter [facility] External Department Unsolicited Provider, Generic External Data Social History Tobacco Use Types Packs/Day Years [...] often do you attend chur ch or catholic services? Never 05/17/2024 Do you belong to [...] Recorded Patient Health Questionnaire-2 Score 0 01/27/2024 [facility] - Occupational [...] place to sleep or slept in a penitentiary (including now)? No 02/09/2023 Housing Stability Vital Sign Answer Ty e Recorded In the last 12 months, was t here a time when you were not able to pay the mortgage or rent on time? No 05/17/2024 In the past 12 months, how m any times have you moved where you were living? 0 05/17/2024 At any time in the past 12 m [facility], were you homeless or living in a penitentiary (including now)? No 05/17/2024 Comments Unknown Sex and Gender Information Value Date Recorded Sex Assigned at Not on file Legal Sex Female 6:48 PM EDT Gender Identity Not on file Sexual Orientation Not on file documented as of this encounter Plan of Treatment Not on file documented as of this encounter Procedures Procedure Name Priority Date/Time Associated Diagnosis Comments METRO IRON AND TIBC Routine 12/28/2024 1 2:33 PM EDT [facility] FERRITIN Routine 12/28/2024 12:33 PM EDT ALL CBC WITH AUTO DIFF Routine 12/28/2024 12:33 PM EDT documented in this encounter Results * (ABNORMAL) ALL CBC WITH AUTO DIFF (12/28/2024 12:33 PM EDT) Pathologist [facility] TBH WBC 11.0 4.0 - 11.0 10 3/uL TBH TBH RBC 4.39 4.20 - 5.40 10 6/uL TBH TBH HGB 12.4 12.0 - 16.0 g/dL TBH TBH HCT 38.2 36.0 - 48.0 % TBH TBH MCV 87.0 81.0 - 99.0 fL TBH TBH MCH 28.2 26.7 - 34.0 pg TBH TBH MCHC 32.5 29.9 - 35.2 g/dL TBH TBH RDW 14.1 11.0 - 15.0 % TBH [...] Data Provider CLINISYNC F inal Result [facility]NC [facility] * (ABNORMAL) [facility] FERRITIN (12/28/2024 12:33 PM EDT) FERRITIN 335.0(H) 8.0 - 252.0 ng/mL TBH 12/28/2024 12:3 3 PM EDT 12/28/2024 12:35 PM EDT Narrative CLINISYNC - 12/28/2024 1:21 PM EDT Generic External Data Provider CLINISYNC F inal Result CLINISYNC TB[facility] * (ABNORMAL) METRO IRON AND TIBC (12/28/2024 12:33 PM EDT) TBH IRON 22.0(L) 50.0 - 170.0 ug/dL TBH TBH TOTAL IRON BINDING CAPACITY 178.0(L) 250.0 - 450.0 ug/dL TBH TBH PERCENT IRON SATURATION 12.4 % TBH 12/28/2024 12:3 3 PM EDT 12/28/2024 12:35 PM EDT Narrative CLINISYNC - 12/28/2024 1:16 PM EDT Generic External Data Provider CLINISYNC F inal Result Performing Organization Address City/[facility] Co de Phone Number CLINISYNC TB documented in this encounter Visit Diagnoses Not on filedocumented in this encounter Care Teams Steam Generating Powerplant Mechanic Relationship Specialty Start Date End Date Chey Chin MD [address] [place] [address] PCP - General Family Medicine 10/27/22 Serene Alfred NP [address] [place] [address] Nurse Practitioner Family Medicine 10/27/22 documented as of this encounter
--- OUTSIDE RECORDS SUMMARY | 2024-12-29 10:32 | XMS_ITS | Encounter Summary ---
Author Organization [facility] Healthcare Address [address] [place] [address] Care Team Providers Care Maritime Guard Name Role Phone Chey Chin MD Primary Care Provider [phone] Serene Alfred TEXTILE TECHNOLOGIST Unavailable [phone] Encounter Details Date Type Department Care Team (Late st Contact Info) Description 07/27/2024 Results Follow-Up [facility] Family Medicine [address] [place] [address] Rubia Hernandez NP [address] [place], [place] [id number] CT head wo IV contrast Social History Tobacco Use Types Packs/Day Years [...] often do you attend chur ch or jain services? Never 05/17/2024 Do you belong to any clubs o r organizations such as mormon groups, unions, fraternal or athletic groups, or [...] Recorded Patient Health Questionnaire-2 Score 0 01/27/2024 [facility] - Occupational Stress Questionnaire Answer Date Recorded [...] place to sleep or slept in a prison (including now)? No 02/09/2023 Housing Stability Vital [...] time in the past 12 m [facility], were you homeless or living in a prison (including now)? No 05/17/2024 Comments Unknown Sex and Gender Information Value Date Recorded Sex Assigned at Not on file Legal Sex Female 6:48 PM EDT Gender Identity Not on file Sexual Orientation Not on file documented as of this encounter Plan of Treatment Not on file documented as of this encounter Visit Diagnoses Not on filedocumented in this encounter Care Teams Maritime Guard Relationship Specialty Start Date End Date Chey Chin MD [address] [facility] [place] [address] PCP - General Family Medicine 10/27/22 Serene Alfred NP [address] [place], [place] [id number] Nurse Practitioner Family Medicine 10/27/22 documented as of this encounter
--- OUTSIDE RECORDS SUMMARY | 2024-12-29 10:32 | XMS_ITS | Encounter Summary ---
Author Organization [facility] Address [address] [facility] [place] [address] Care Team Providers Care Electrical Prospecting Supervisor Name Role Phone Chey Chin MD Primary Care Provider [phone] Serene Alfred POWERHOUSE MECHANIC Unavailable [phone] Chey Chin MD Unavailable [phone] Serene Alfred POWERHOUSE MECHANIC Unavailable [phone] Encounter Details Date Type Department Care Team (Late st Contact Info) Description 09/03/2023 Abstract [facility] [address] [place] [address] Aubree Duong, [facility] [address] [place], [place] [id number] Social History Tobacco Use Types Packs/Day Years [...] How often do you attend chur or roman catholic services? Never 02/09/2023 Do you belong to any clubs o r organizations such as jehovah's witness groups, unions, fraternal or athletic groups, or [...] Recorded Patient Health Questionnaire-2 Score 0 06/15/2023 [facility] - [...] place to sleep or slept in a fci (including now)? No 02/09/2023 Comments Yes Sex and Gender Information Value Date Recorded Sex Assigned at Not on file Legal Sex Female 6:48 PM EDT Gender Identity Not on file Sexual Orientation Not on file documented as of this encounter Plan of Treatment Not on file documented as of this encounter Visit Diagnoses Not on filedocumented in this encounter Care Teams Electrical Prospecting Supervisor Relationship Specialty Start Date End Date Chey Chin MD [address] [facility] [place] [address] PCP - General Family Medicine 10/27/22 Chey Chin MD [address] [facility] [place] [address] PCP - [employer] 03/13/2303/12 Serene Alfred NP [address] [facility] [place] [address] PCP - [employer] 03/13/2404/12 Serene Alfred NP [address] [id number] Nurse Practitioner Family Medicine 10/27/22 documented as of this encounter
--- OUTSIDE RECORDS SUMMARY | 2024-12-29 10:32 | XMS_ITS | Encounter Summary ---
Author Organization [facility] Address [address] [facility] [place] [address] Care Team Providers Care Pipeline Systems Operator Name Role Phone Chey Chin MD Primary Care Provider [phone] Serene Alfred EARLY MORNING BABYSITTER Unavailable [phone] Encounter Details Date Type Department Care Team (Late st Contact Info) Description 09/27/2024 [facility] [address] [place] [address] Serene Alfred NP [address] [place], [place] [phone] XR chest 2 views Social History Tobacco Use Types Packs/Day Years [...] often do you attend chur ch or baptist services? Never 05/17/2024 Do you belong to any clubs o r organizations such as rastafari groups, unions, fraternal or athletic groups, or [...] Recorded Patient Health Questionnaire-2 Score 0 01/27/2024 [facility]at ional [facility] - Occupational Stress Questionnaire Answer Date Recorded [...] in a fci (including now)? No 02/09/2023 Housing Stability Vital Sign Answer Ty e Recorded In the last 12 months, was t here a time when you were not able to pay the mortgage or rent on time? No 05/17/2024 In the past 12 months, how m any times have you moved where you were living? 0 05/17/2024 At any time in the past 12 m [facility], were you homeless or living in a fci (including now)? No 05/17/2024 Comments Unknown Sex and Gender Information Value Date Recorded Sex Assigned at Not on file Legal Sex Female 6:48 PM EDT Gender Identity Not on file Sexual Orientation Not on file documented as of this encounter Miscellaneous Notes * Result Encounter Note - Serene Alfred NP - 09/27/2024 10:04 AM EDT Let patient know her chest xray was negative documented in this encounter Plan of Treatment Not on file documented as of this encounter Visit Diagnoses Not on filedocumented in this encounter Care Teams Pipeline Systems Operator Relationship Specialty Start Date End Date Chey Chin MD [address] [place] [address] PCP - General Family Medicine 10/27/22 Serene Alfred NP [address] [place] [address] Nurse Practitioner Family Medicine 10/27/22 documented as of this encounter
--- OUTSIDE RECORDS SUMMARY | 2024-12-29 10:32 | XMS_ITS | Encounter Summary ---
Author Organization [facility] Address [address] [place] [address] Care Team Providers Care Ship Joiner Name Role Phone Chey Chin MD Primary Care Provider [phone] Encounter Details Date Type Department Care Team (Late st Contact Info) Description 12/30/2019 Ophth Exam Eye Clinic [facility] [address], [address] [place] [address] MehranVladislav lam, DO [address] [place] [address] Social History Tobacco Use Types Packs/Day Years [...] Last Indicated Resolved Time COVID-19 RESULTS PENDING 12/30/2019 12/30/2019 8:09 PM [...] documented as of this encounter Care Teams Ship Joiner Relationship Specialty Start Date End Date Chey Chin MD [address] [place] [address] PCP - General Family Medicine 01/30/20 documented as of this encounter
--- OUTSIDE RECORDS SUMMARY | 2024-12-29 10:32 | XMS_ITS | Encounter Summary ---
Author Organization [facility] Address [address] [facility] [place] [address] Care Team Providers Care Respiratory Care Assistant Name Role Phone Chey Chin MD Primary Care Provider [phone] Serene Alfred LEATHER GOODS I ASSEMBLER Unavailable [phone] Chey Chin MD Unavailable [phone] Serene Alfred LEATHER GOODS I ASSEMBLER Unavailable [phone] Encounter Details Date Type Department Care Team (Late st Contact Info) Description 10/22/2023 Abstract [facility] [address] [place] [place] [address] Xiomara Zurita DO [address] [place] [address] Social History Tobacco Use Types Packs/Day Years [...] often do you attend chur ch or congregational services? Never 02/09/2023 Do you belong to any clubs o r organizations such as jain groups, unions, fraternal or athletic groups, or [...] on filedocumented in this encounter Care Teams Respiratory Care Assistant Relationship Specialty Start Date End Date Chey Chin MD [address] [facility] [place] [address] PCP - General Family Medicine 10/27/22 Chey Chin MD [address] [facility] [place] [address] PCP - Jimmy Lennon 03/13/2303/12 Serene Alfred NP [address] [facility] [place], [place] [address] PCP - Jimmy Commercial 03/13/2404/12 Serene Alfred NP [address] [place] [address] Nurse Practitioner Family Medicine 10/27/22 documented as of this encounter
--- OUTSIDE RECORDS SUMMARY | 2024-12-29 10:32 | XMS_ITS | Encounter Summary ---
Author Organization [facility] Address [address] [place] [address] Care Team Providers Care Avionics System Engineer Name Role Phone Chey Chin MD Primary Care Provider [phone] Encounter Details Date Type Department Care Team (Late st Contact Info) Description 06/22/2016 [facility]am [facility] [address], [address] [place] [address] Glory Jarrell MD [address] [place] [address] Social History Tobacco Use Types Packs/Day Years [...] documented as of this encounter Care Teams Avionics System Engineer Relationship Specialty Start Date End Date Chey Chin MD [address] [place] [address] PCP - General Family Medicine 01/30/20 documented as of this encounter
--- OUTSIDE RECORDS SUMMARY | 2024-12-29 10:32 | XMS_ITS | Encounter Summary ---
Author Organization [facility] Address [address] [place] [address] Care Team Providers Care Critical Care Clinical Nurse Specialist Name Role Phone Chey Pillai MD Primary Care Prov ider Encounter Details Date Type Department Care Team (Late st Contact Info) Description 06/21/2024 Telephone [facility] [address] [address] Christin Gaytan Social History Tobacco Use Types Packs/Day Years [...] 01/02/2025 1:00 PM EDT Clinical Support Encounter [facility] [address] [place] [address] 01/05/2025 11:30 AM EDT Pre-Operative Nurse Assessment [facility] [place] [address] [place] [phone] Henry Rodas MD [address] [place] [address] 01/17/2025 10:00 AM EDT Hospital Encounter CCCT PERIOP [address] [place] [address] Henry Rodas MD [address] [phone] Anorectal stricture 01/17/2025 12:00 PM EDT - 01/17/2025 2:30 PM EDT Surgery CCCT PERIOP [address] [place] [address] Henry Rodas MD [address] [place] [address] ILEOSTOMY JEJUNOSTOMY NON-TUBE LAPAROSCOPIC 02/20/2025 11:00 AM EST Office Visit Division of Colon & Rectal Surgery [address] [phone] Yvette Ramirez, FLEXIBLE SHAFT WINDER-INDUSTRIAL COFFEE GRINDER [address] [phone] Scheduled Procedures Name Priority Associated Diagnoses Date/Ti me ILEOSTOMY JEJUNOSTOMY NON-TUBE LAPAROSCOPIC Anorectal stricture Crohn's disease of both small and large intestine with complication 01/17/2025 12:00 PM EDT documented as of this encounter Visit Diagnoses Not on filedocumented in this encounter Care Teams Critical Care Clinical Nurse Specialist Relationship Specialty Start Date End Date Chey Pillai MD [address] [facility] [place] [address] PCP - General Family Medicine 10/17/24 documented as of this encounter
--- OUTSIDE RECORDS SUMMARY | 2024-12-29 10:32 | XMS_ITS | Encounter Summary ---
Author Organization [facility] Address [address] [place] [address] Care Team Providers Care Clean Up Person Name Role Phone Chey Chin MD Primary Care Provider [phone] Encounter Details Date Type Department Care Team (Late st Contact Info) Description 03/19/2016 Ophth Exam Eye Clinic [facility] [address], [address] [place] [address] Angela Layton MD [address] [place] [address] Social History Tobacco Use Types Packs/Day Years [...] 8:09 PM EDT COVID-19 RESULTS PENDING 05/18/2020 05/18/20201 9:53 AM EST COVID-19 RESULTS PENDING 06/20/2020 [...] documented as of this encounter Care Teams Clean Up Person Relationship Specialty Start Date End Date Chey Chin MD [address] [place] [address] PCP - General Family Medicine 01/30/20 documented as of this encounter
--- OUTSIDE RECORDS SUMMARY | 2024-12-29 10:32 | XMS_ITS | Encounter Summary ---
Author Organization [facility] Address [address] [facility] [place] [address] Care Team Providers Care Digester Operator Helper Name Role Phone Chey Chin MD Primary Care Provider [phone] Serene Alfred METAL NUMERICAL CONTROL PROGRAMMER Unavailable [phone] Chey Chin MD Unavailable [phone] Serene Alfred METAL NUMERICAL CONTROL PROGRAMMER Unavailable [phone] Encounter Details Date Type Department Care Team (Late st Contact Info) Description 09/11/2023 Abstract [facility] [address] [place] [address] Xiomara Zurita DO [address] [place] [address] Social History Tobacco Use Types Packs/Day Years [...] often do you attend chur ch or voodoo services? Never 02/09/2023 Do you belong to [...] Recorded Patient Health Questionnaire-2 Score 0 06/15/2023 [facility] Occupat ional Health - Occupational [...] place to sleep or slept in a snf (including now)? No 02/09/2023 Comments No Sex and Gender Information Value Date Recorded Sex Assigned at Not on file Legal Sex Female 6:48 PM EDT Gender Identity Not on file Sexual Orientation Not on file documented as of this encounter Plan of Treatment Not on file documented as of this encounter Visit Diagnoses Not on filedocumented in this encounter Care Teams Digester Operator Helper Relationship Specialty Start Date End Date Chey Chin MD [address] [facility] [place] [address] PCP - General Family Medicine 10/27/22 Chey Chin MD [address] [facility] [place] [address] PCP - Jimmy Lennon 03/13/2303/12 Serene Alfred NP [address] [facility] [place] [address] PCP - Jimmy Commercial 03/13/2404/12 Serene Alfred NP [address] [place] [address] Nurse Practitioner Family Medicine 10/27/22 documented as of this encounter
--- OUTSIDE RECORDS SUMMARY | 2024-12-29 10:32 | XMS_ITS | Encounter Summary ---
Author Organization [facility] Address [address] [place] [address] Care Team Providers Care Epic Ambulatory Specialists Name Role Phone Chey Pillai MD Primary Care Prov ider Encounter Details Date Type Department Care Team (Late st Contact Info) Description 12/26/2024 Orders Only Division of Colon & Rectal Surgery [address] [facility] [address] [place] [address] Yvette Ramirez, ENTRY ANALYST-MACHINE ICER [address] [facility] [address] [place] [phone] Anorectal stricture (Primary Dx); Crohn's disease of both small and large intestine with complication Social History Tobacco Use Types Packs/Day Years [...] EDT Clinical Support Encounter [facility] [address] [place] [address] 01/05/2025 11:30 AM EDT Pre-Operative Nurse Assessment Comprehensive [facility] [address] [place] [address], [place] [address] Henry Rodas MD [address] [place] [phone] 01/17/2025 10:00 AM EDT Hospital Encounter CCCT PERIOP [address] [place] [address], [place] [address] Henry Rodas MD [address] [place] [phone] Anorectal stricture 01/17/2025 12:00 PM EDT - 01/17/2025 2:30 PM EDT Surgery CCCT PERI [address] [place] [address], [place] [address] Henry Rodas MD [address] [place] [phone] ILEOSTOMY JEJUNOSTOMY NON-TUBE LAPAROSCOPIC 02/20/2025 11:00 AM EST Office Visit Division of Colon & Rectal Surgery [address] [phone] Yvette Ramirez, ENTRY ANALYST-MACHINE ICER [address] [phone] Scheduled Procedures Name Priority Associated Diagnoses Date/Ti me ILEOSTOMY JEJUNOSTOMY NON-TUBE LAPAROSCOPIC Anorectal stricture Crohn's disease of both small and large intestine with complication 01/17/2025 12:00 PM EDT documented as of this encounter Visit Diagnoses Diagnosis Anorectal stricture- Primary Stenosis of rectum and anus Crohn's disease of both small and large intestine with complication Regional enteritis of small intestine with large intestine Anorectal stricture Stenosis of rectum and anus Crohn's disease of both small and large intestine with complication Regional enteritis of small intestine with large intestine documented in this encounter Additional Health Concerns Assessment Noted Time PHQ-9 Depression Total Score: 0 12/27/19 11:08 AM EDT documented as of this encounter Care Teams Epic Ambulatory Specialists Relationship Specialty Start Date End Date Chey Pillai MD [address] [place] [address] PCP - General Family Medicine 10/17/24 documented as of this encounter
--- OUTSIDE RECORDS SUMMARY | 2024-12-29 10:32 | XMS_ITS | Encounter Summary ---
Author Organization [facility] Address [address] [place] [address] Care Team Providers Care Candle Pourer Name Role Phone Yung Aragon MD Primary Care Provider [phone] Serene Alfred HAND TENNIS BALL COVERER Unavailable [phone] Yung Aragon MD Unavailable [phone] Serene Alfred HAND TENNIS BALL COVERER Unavailable [phone] Encounter Details Date Type Department Care Team (Late st Contact Info) Description 08/06/2023 Clinisync Result Encounter [facility] External Department Unsolicited [...] often do you attend chur ch or hindu services? Never 02/09/2023 Do you belong to any clubs o r organizations such as buddhist groups, unions, fraternal or athletic groups, or [...] Recorded Patient Health Questionnaire-2 Score 0 06/15/2023 [facility] Occupat ional Health - Occupational Stress [...] in a penitentiary (including now)? No 02/09/2023 Comments Yes Sex and Gender Information Value Date Recorded Sex Assigned at Not on file Legal Sex Female 6:48 PM EDT Gender Identity Not on file Sexual Orientation Not on file documented as of this encounter Plan of Treatment Not on file documented as of this encounter Procedures Procedure Name Priority Date/Time Associated Diagnosis Comments US VENOUS DOPPLER LE LT 08/06/2023 6:10 PM EDT documented in this encounter Results * US VENOUS DOPPLER LE LT (08/06/2023 6:10 PM EDT) Anatomical Region Laterality Modality Other 08/06/2023 6:10 PM EDT Narrative 08/06/2023 6:13 [place] [address] Ultrasound Report Signed Patient: SUE MARROQUIN MR#: [id number] : 2000 Acct:[id number] Age/Sex: 22 / F ADM Date: 08/06/23 Loc: [facility] Attending Dr: Non-Staff Physician Gil Ordering Physician: PhysicianLucinaStaff Gil Date of Service: 08/06/23 Procedure(s): US venous doppler LE LT Accession Number(s): [id number] cc: YUNG ARAGON ; PhysicianNon-Staff Gil The [address] [address] Patient Name: SUE MARROQUIN MRN: [id number] date: 2000 Sex: F Assigned Patient Location: [facility] Current Patient Location: [facility] Accession/Order Number: [id number] Exam Date: 08/06/2023 16:40 Report Date: 08/06/2023 18:10 At the request of: NON-STAFF PHYSICIAN Procedure: US venous doppler LE LT EXAM: US venous doppler LE LT HISTORY: PATIENT WITH LEFT LEG SWELLING M79.89 COMPARISON: None. TECHNIQUE: Evaluation of the deep veins of the left lower extremity was performed utilizing B-mode, color flow and spectral analysis. FINDINGS: The visualized vessels comprising the deep venous systems from the common femoral vein through the calf veins demonstrate appropriate compressibility, spontaneous color Doppler flow, and augmentation of flow on spectral Doppler with distal compression. Additional findings: None. US/US venous doppler LE LT IMPRESSION: No sonographic evidence of deep venous thrombosis of the left lower extremity. Electronically authenticated by: NORA FONSECA Date: 08/06/2023 18:10 Dictated By: Nora Fonseca M.D. Signed By: 08/06/231812 DD/ 09 TD/TT: Semaphore Operator: Procedure Note Radiology, Radiologist, - 08/06/2023 [place] [address] Ultrasound Report Signed Patient: SUE MARROQUIN NMR#: [id number] : 2000Acct:[id number] Age/Sex: 22 / FADM Date: 08/06/23 Loc: [facility] Attending Dr: Non-Staff Physician Cordero Ordering Physician: Sydney Crawford M.D. Date of Service: 08/06/23 Procedure(s): US venous doppler LE LT Accession Number(s): [id number] cc: YUNG ARAGON ; PhysicianSydney M.D. [address] [address] Patient Name: SUE MARROQUIN MRN: [id number] date: 2000 Sex: F Assigned Patient Location: [facility] Current Patient Location: [facility] Accession/Order Number: [id number] Exam Date: 08/06/2023 16:40 Report Date: 08/06/2023 18:10 At the request of: NON-STAFF PHYSICIAN Procedure: US venous doppler LE LT EXAM: US venous doppler LE LT HISTORY: PATIENT WITH LEFT LEG SWELLING M79.89 COMPARISON: None. TECHNIQUE: Evaluation of the deep veins of the left lower extremity was performed utilizing B-mode, color flow and spectral analysis. FINDINGS: The visualized vessels comprising the deep venous systems fromthe common femoral vein through the calf veins demonstrate appropriate compressibility, spontaneous color Doppler flow, and augmentation of flowon spectral Doppler with distal compression. Additional findings: None. US/US venous doppler LE LT IMPRESSION: No sonographic evidence of deep venous thrombosis of the left lower extremity. Electronically authenticated by: NORA FONSECA Date: 08/06/2023 18:10 Dictated By: Nora Fonseca M.D. Signed By:08/06/231812 DD/ 09 TD/TT: Semaphore Operator: us Generic External Data Provider [facility] Final Result documented in this encounter Visit Diagnoses Not on filedocumented in this encounter Care Teams Candle Pourer Relationship Specialty Start Date End Date Yung Aragon MD [address] [place] [address] PCP - General Family Medicine 10/27/22 Yung Aragon MD [address] [place], [place] [address] PCP - [place] Commercial 03/13/2303/12 Serene Alfred NP [address] [facility] [place] [address] PCP - [place]ita Commercial 03/13/2404/12 Serene Alfred NP [address] [place] [phone] Nurse Practitioner Family Medicine 10/27/22 documented as of this encounter
--- OUTSIDE RECORDS SUMMARY | 2024-12-29 10:33 | XMS_ITS | Encounter Summary ---
Author Organization [facility] Address [address] [place] [address] Care Team Providers Care Foundry Finisher Name Role Phone Chey Chin MD Primary Care Provider [phone] Encounter Details Date Type Department Care Team (Late st Contact Info) Description 01/31/2015 Ophth Exam Eye Clinic [facility] [address], [address] [place] [phone] Lourdes Pollack MD [address] [place] [phone] Social History Tobacco Use Types Packs/Day Years Used Date Smoking Tobacco: Never Smokeless Tobacco: Never Alcohol Use Standard Drinks/Week Comments Not Asked 0 (1 standard drink = 0.6 oz [...] documented as of this encounter Care Teams Foundry Finisher Relationship Specialty Start Date End Date Chey Chin MD [address] [place] [address] PCP - General Family Medicine 01/30/20 documented as of this encounter
--- OUTSIDE RECORDS SUMMARY | 2024-12-29 10:33 | XMS_ITS | Encounter Summary ---
Author Organization [facility] Address [address] [place] [address] Care Team Providers Care Television Servicer Name Role Phone Serene Alfred NP Unavailable Chey Chin MD Primary Care Provider [phone] Serene Alfred NP Unavailable [phone] Chey Chin MD Unavailable Payton Pulido MD Unavailable Chey Chin MD Unavailable [phone] Serene Alfred NP Unavailable Encounter Details Date Type Department Care Team (Late st Contact Info) Description 11/11/2022 Abstract [facility] [place] [facility] [address] [place] [address] Rachael Lyons, ACREAGE REPORTER [address] [place] [address] Social History Tobacco Use Types Packs/Day Years Used Date Smoking Tobacco: Never Smokeless Tobacco: Never Tobacco Cessation:Counseling Given: Not Answered Alcohol Use Standard Drinks/Week Comments Not Currently 0 (1 standard drink = 0.6 oz pure alcohol) caffeine intake : none ; coffee PHQ-2 Answer Date Recorded Patient Health Questionnaire-2 Score 0 11/11/2022 Comments Unknown Sex and Gender Information Value Date Recorded Sex Assigned at Not on file Legal Sex Female 6:48 PM EDT Gender Identity Not on file Sexual Orientation Not on file documented as of this encounter Functional Status * Over the past 2 weeks, how often have you been bothered by any of the following problems? Question Answer Date of Assessment Author Little interest or pleasure in doing things Not at all 11/11/2022 3:30 PM EDT Shruti Segura MA Feeling down, depressed, or hopeless Not at all 11/11/2022 3:30 PM EDT Shruti Segura MA Patient Health Questionnaire-2 Score 0 11/11/2022 3:30 PM EDT Shalini Segura MA documented as of this encounter Plan of Treatment Not on file documented as of this encounter Visit Diagnoses Not on filedocumented in this encounter Care Teams Television Servicer Relationship Specialty Start Date End Date Serene Alfred NP [address] [place] [facility] [place] [address] PCP - [place] Commercial 09/11/22 Chey Chin MD [address] [place] [address] PCP - General Family Medicine 10/27/22 Chey Chin MD [address] [facility] [place] [address] PCP - [place] Commercial 12/12/2202/10 Payton Pulido MD [address] [place] [address] PCP - [place] Commercial 02/11/2303/12 Chey Chin MD [address] [facility] [place] [address] PCP - [place] Commercial 03/13/2303/12 Serene Alfred NP [address] [place] [address] PCP - Jimmy Lennon 03/13/2404/12 Serene Alfred NP [address] [place] [address] Nurse Practitioner Family Medicine 10/27/22 documented as of this encounter
--- OUTSIDE RECORDS SUMMARY | 2024-12-29 10:33 | XMS_ITS | Encounter Summary ---
Author Organization [facility] Address [address] [place] [address] Care Team Providers Care Internet Systems Administrator Name Role Phone Chey Chin MD Primary Care Provider [phone] Encounter Details Date Type Department Care Team (Late st Contact Info) Description 07/31/2014 Ophth Exam Eye Clinic [facility] [address], [address] [place] [phone] Romulo Chappell MD [address] [place] [phone] Social History Tobacco Use Types Packs/Day Years Used Date Smoking Tobacco: Never Smokeless Tobacco: Never Comments Unknown Sex and Gender Information Value [...] documented as of this encounter Care Teams Internet Systems Administrator Relationship Specialty Start Date End Date Chey Chin MD [address] [place] [address] PCP - General Family Medicine 01/30/20 documented as of this encounter
--- OUTSIDE RECORDS SUMMARY | 2024-12-29 10:33 | XMS_ITS | Encounter Summary ---
Author Organization [facility] Address [address] [place] [address] Care Team Providers Care Retail Sales Professional Name Role Phone Chey Chin MD Primary Care Provider Serene Alfred MIXER CRANE OPERATOR Unavailable Chey Chin MD Unavailable Payton Pulido MD Unavailable Chey Chin MD Unavailable [phone] Serene Alfred MIXER CRANE OPERATOR Unavailable [phone] Encounter Details Date Type Department Care Team (Late st Contact Info) Description 01/22/2023 Abstract [facility] Family Medicine [address] [place] [id number] Chey Chin MD [address] [place] [address] Social History Tobacco Use Types [...] on filedocumented in this encounter Care Teams Retail Sales Professional Relationship Specialty Start Date End Date Chey Chin MD [address] [place] [address] PCP - General Family Medicine 10/27/22 Chey Chin MD [address] [place] [address] PCP - [place] [employer] 12/12/2202/10 Payton Pulido MD [address] [place] [address] PCP - [place] [employer] 02/11/2303/12 Chey Chin MD [address] [place] [address] PCP - [place] [employer] 03/13/2303/12 Serene Alfred NP [address] [place] [address] PCP - [place] [employer] 03/13/2404/12 Serene Alfred NP [address] [place] [address] Nurse Practitioner Family Medicine 10/27/22 documented as of this encounter
--- OUTSIDE RECORDS SUMMARY | 2024-12-29 10:33 | XMS_ITS | Encounter Summary ---
Author Organization [facility] Address [address] [place] [address] Care Team Providers Care Prison Guard Supervisor Name Role Phone Chey Chin MD Primary Care Provider [phone] Encounter Details Date Type Department Care Team (Late st Contact Info) Description 08/01/2014 Documentation Only [facility] [place] [address] [place] [address], [address] [place] [address] Tamia Padilla MD [address] [place] [address] 4[address] [place] [address] [place] [address] Social History Tobacco Use Types Packs/Day Years Used Date Smoking Tobacco: Never Smokeless Tobacco: Never Comments Unknown Sex and Gender Information Value Date Recorded Sex Assigned at Not on file Legal Sex Female 10:50 AM EST Gender Identity Not on file Sexual Orientation Not on file documented as of this encounter Progress Notes * Mitchell Copeland - 09/06/2014 2:12 PM EDT Images from the original note were not included. documented in this encounter Plan of Treatment [...] documented as of this encounter Care Teams Prison Guard Supervisor Relationship Specialty Start Date End Date Chey Chin MD [address] [place] [address] PCP - General Family Medicine 01/30/20 documented as of this encounter
--- OUTSIDE RECORDS SUMMARY | 2024-12-29 10:33 | XMS_ITS | Encounter Summary ---
Author Organization [facility] Address [address] [place] [address] Care Team Providers Care Foot Doctor Name Role Phone Chey Chin MD Primary Care Provider [phone] Reason for Referral * Specialty Diagnoses / Procedures Referred By Wayne liz Referred To Contact [address] [address] Phone: tel: Referral ID Status Reason Start Date Expiration Date Visits Re quested Visits Authorized * Consultation (Routine) - Closed Specialty Diagnoses / Procedures Referred By Wayne liz Referred To Contact Gastroenterology Diagnoses Crohn disease, unspecified complication Kaiden Rivas MD Phone: tel: fax: [facility] [address] [address] Phone: tel: fax: Referral ID Status Reason Start Date Expiration Date V isits Requested Visits Authorized [id number] Closed Specialty Services Required 05/19/2014 11/17/2015 7 7 Encounter Details Date Type Department Care Team (Late st Contact Info) Description 05/19/2014 Orders Only Central Scheduling Kaiden Rivas MD [facility] [address] [address] Social History Tobacco Use Types Packs/Day Years Used Date Smoking Tobacco: Never Assessed Comments Unknown Sex and Gender Information Value Date Recorded Sex Assigned at Not on file Legal Sex Female 10:50 AM EST Gender Identity Not on file Sexual Orientation Not on file documented as of this encounter Plan of Treatment Scheduled Referrals Name Type Priority Associated Diagnoses Order Schedule Referral to Gastroenterology Outpatient Referral Routine Crohn disease, unspecified complication Ordered: 05/19/2014 documented as of this encounter Procedures Procedure Name Priority Date/Time Associated Diagnosis Comments REFERRAL TO GASTROENTEROLOGY Routine 05/19/2014 documented in this encounter Results * REFERRAL TO GASTROENTEROLOGY (05/19/2014) us Provider Historical OUTPATIENT REFERRALS Final R esult EXTERNAL LAB documented in this encounter Visit Diagnoses Diagnosis Crohn disease, unspecified complication- Primary documented in this encounter Additional Health Concerns Infection [...] documented as of this encounter Care Teams Foot Doctor Relationship Specialty Start Date End Date Chey Chin MD [address] [place] [address] PCP - General Family Medicine 01/30/20 documented as of this encounter
--- OUTSIDE RECORDS SUMMARY | 2024-12-29 10:33 | XMS_ITS | Encounter Summary ---
Author Organization [facility] Address [address] [place] [address] Care Team Providers Care Sewer Pipe Cleaner Name Role Phone Chey Chin MD Primary Care Provider [phone] Reason for Referral * Specialty Diagnoses / Procedures Referred By Wayne liz Referred To Contact [facility] - GI [address] [place] [phone] Referral ID Status Reason Start Date Expiration Date Visits Re quested Visits Authorized Encounter Details Date Type Department Care Team (Late st Contact Info) Description 05/22/2014 Orders Only [facility] [address] [address] Historical, Provider Social History Tobacco Use Types Packs/Day Years [...] Priority Date/Time Associated Diagnosis Comments REFERRAL TO PEDIATRIC GASTROENTEROLOGY Routine 05/22/2014 documented in this encounter Results * REFERRAL TO PEDIATRIC GASTROENTEROLOGY (05/22/2014) us Provider Historical OUTPATIENT REFERRALS Final R esult EXTERNAL LAB documented in this encounter Visit Diagnoses Not [...] documented as of this encounter Care Teams Sewer Pipe Cleaner Relationship Specialty Start Date End Date Chey Chin MD [address] [facility], [facility] PCP - General Family Medicine 01/30/20 documented as of this encounter
--- OUTSIDE RECORDS SUMMARY | 2024-12-29 10:33 | XMS_ITS | Encounter Summary ---
Author Organization [facility] Address [address] [place] [address] Care Team Providers Care Mine Wirer Name Role Phone Chey Chin MD Primary Care Provider [phone] Encounter Details Date Type Department Care Team (Late st Contact Info) Description 01/30/2015 Prep for Surgery GI Clinic Main [address] [address] Sonam Swanson MD [address] [facility] [address] [address] [place] [address] Social History Tobacco Use Types Packs/Day Years [...] on file documented as of this encounter Results * ProVation Order - EGD/Biopsy - [id number] (02/02/2015 7:30 AM EDT) 02/02/2015 7:30 AM EDT us Sonam Swanson MD GI PROVATION ORDERABLE S Final Result [facility] * ProVation Order - Colonoscopy/Biopsy [id number] (02/02/2015 7:28 AM EDT) 02/02/2015 7:28 AM EDT us Sonam Swanson MD GI PROVATION ORDERABLE S Final Result [facility] documented in this encounter Visit Diagnoses Diagnosis Crohn's disease without complication, unspecified gastrointestinal tract location- Primary documented in this encounter Additional Health [...] documented as of this encounter Care Teams Mine Wirer Relationship Specialty Start Date End Date Chey Chin MD [address] [place] [address] PCP - General Family Medicine 01/30/20 documented as of this encounter
--- OUTSIDE RECORDS SUMMARY | 2024-12-29 10:33 | XMS_ITS | Encounter Summary ---
Author Organization [facility] Address [address] [facility] [place] [address] Care Team Providers Care Nylon Machine Operator Name Role Phone Chey Chin MD Primary Care Provider Serene Alfred DRY CELL TESTER Unavailable Chey Chin MD Unavailable Payton Pulido MD Unavailable Chey Chin MD Unavailable [phone] Serene Alfred DRY CELL TESTER Unavailable [phone] Encounter Details Date Type Department Care Team (Late st Contact Info) Description 02/10/2023 Abstract [facility] Family Medicine [address] [place] [id number] Aubree Duong, [facility] [address] [place], [place] [id number] Social History Tobacco Use Types Packs/Day Years Used Date Smoking Tobacco: Never Smokeless Tobacco: Never Alcohol Use Standard Drinks/Week Comments Not Currently 0 (1 standard drink = 0.6 oz pure alcohol) caffeine intake : none ; coffee Humiliation, Afraid, Rape, and Kick questionnair e [...] How often do you attend chur or muslim services? Never 02/09/2023 Do you belong to [...] Date Recorded Patient Health Questionnaire-2 Score 0 02/09/2023 [facility] Occupat ional Health - Occupational Stress [...] money to buy more. Never true 02/10/20 Within the past 12 months, t he [...] place to sleep or slept in a [place] health care facility (including now)? No 02/09/2023 Comments Yes Sex and Gender Information Value Date Recorded Sex Assigned at Not on file Legal Sex Female 6:48 PM EDT Gender Identity Not on file Sexual Orientation Not on file COVID-19 Exposure Response Date Recorded In the last 10 days, have yo u been in contact with someone who was confirmed or suspected to have Coronavirus/COVID-19? No / Unsure 02/11/2023 9:33 AM EDT documented as of this encounter Plan of Treatment Not on file documented as of this encounter Visit Diagnoses Not on filedocumented in this encounter Care Teams Nylon Machine Operator Relationship Specialty Start Date End Date Chey Chin MD [address] [place] [address] PCP - General Family Medicine 10/27/22 Chey Chin MD [address] [place] [address] PCP - [place] [employer] 12/12/2202/10 Payton Pulido MD [address] [place], [place] [address] PCP - [employer] 02/11/2303/12 Chey Chin MD [address] [place] [address] PCP - [employer] 03/13/2303/12 Serene Alfred NP [address] [place] [address] PCP - [employer] [employer] 03/13/2404/12 Serene Alfred NP [address] [place] [address] Nurse Practitioner Family Medicine 10/27/22 documented as of this encounter
--- OUTSIDE RECORDS SUMMARY | 2024-12-29 10:33 | XMS_ITS | Encounter Summary ---
Author Organization [facility] Address [address] [facility] [place] [address] Care Team Providers Care Physician Advisor Name Role Phone Chey Chin MD Primary Care Provider Serene Alfred JACK FRAME TENDER Unavailable [phone] Chey Chin MD Unavailable Payton Pulido MD Unavailable Chey Chin MD Unavailable [phone] Serene Alfred JACK FRAME TENDER Unavailable [phone] Encounter Details Date Type Department Care Team (Late st Contact Info) Description 01/09/2023 Abstract [facility] Family Medicine [address] [place] [phone] Chey Chin MD [address] [place] [address] Social History Tobacco Use Types [...] on filedocumented in this encounter Care Teams Physician Advisor Relationship Specialty Start Date End Date Chey Chin MD [address] [place] [address] PCP - General Family Medicine 10/27/22 Chey Chin MD [address] [place] [address] PCP - [place] [employer] 12/12/2202/10 Payton Pulido MD [address] [place] [address] PCP - [place] [employer] 02/11/2303/12 Chey Chin MD [address] [place] [address] PCP - [place] [employer] 03/13/2303/12 Serene Alfred NP [address] [place] [address] PCP - [place] [employer] 03/13/2404/12 Serene Alfred NP [address] [place] [address] Nurse Practitioner Family Medicine 10/27/22 documented as of this encounter
--- OUTSIDE RECORDS SUMMARY | 2024-12-29 10:33 | XMS_ITS | Encounter Summary ---
Author Organization [facility] Address [address] [place] [address] Care Team Providers Care Automated Teller Manager Name Role Phone Yung Aragon MD Primary Care Provider [phone] Serene Alfred CATERING ATTENDANT Unavailable Yung Aragon MD Unavailable Payton Pulido MD Unavailable Yung Aragon MD Unavailable [phone] Serene Alfred CATERING ATTENDANT Unavailable [phone] Encounter Details Date Type Department Care Team (Late st Contact Info) Description 02/05/2023 Clinisync Result Encounter [facility] External Department Unsolicited Alfredo Duong, CNM [address] [place] [address] Social History Tobacco Use Types Packs/Day Years [...] 02/09/2023 How often do you attend chur [employer] or orthodox services? Never 02/09/2023 Do you belong to any clubs o r organizations such as baptist groups, unions, fraternal or athletic groups, or [...] Recorded Patient Health Questionnaire-2 Score 0 02/09/2023 [facility] of Occupat ionvt Health - Occupational Stress Questionnaire Answer Date [...] place to sleep or slept in a long term (including now)? No 02/09/2023 Comments Yes Sex [...] suspected to have Coronavirus/COVID-19? No / Unsure 01/28/2023 8:38 AM EDT documented as of this encounter Plan of Treatment Not on file documented as of this encounter Procedures Procedure Name Priority Date/Time Associated Diagnosis Comments US OB TRANSVAGINAL 02/05/2023 10 :10 PM EDT documented in this encounter Results * US OB TRANSVAGINAL (02/05/2023 10:10 PM EDT) Anatomical Region Laterality Modality Other 02/05/2023 10:1 0 PM EDT Narrative 02/05/2023 10:10 PM EDT [facility] [place] [id number] Ultrasound Report Signed Patient: SUE MARROQUIN MR#: [id number] : 2000 Acct:[id number] Age/Sex: 22 / F ADM Date: 02/04/23 Loc: US Attending Dr: ALFREDO DUONG APRN, CNM Ordering Physician: ALFREDO DUONG APRN, CNM Date of Service: 02/04/23 Procedure(s): US OB transvaginal Accession Number(s): [id number] cc: ALFREDO DUONG APRN, CNM; YUNG ARAGON [place] [id number] Patient Name: SUE MARROQUIN MRN: [id number] date: 2000 Sex: F Assigned Patient Location: US Current Patient Location: Accession/Order Number: [id number] Exam Date: 02/04/2023 17:45 Report Date: 02/05/2023 22:10 At the request of: ALFREDO DUONG Procedure: US OB transvaginal EXAMINATION: US OB transvaginal HISTORY: AMENORRHEA N91.2 COMPARISON: No relevant comparison available. FINDINGS: GESTATIONAL SAC: Present and normal appearing. YOLK SAC: Present and normal appearing. POLE: Present and normal appearing. CARDIAC: Present. UTERUS: Normal size and appearance. OVARIES: Right: Not seen. Left: Normal. CERVIX: 4.9 cm in length and closed. CUL-DE-SAC: Normal. OTHER: None. AGE BY LMP: 8 weeks 2 days JANIS BY LMP: 09/14/2023 AGE BY US CRL: 8 weeks 1 day JANIS BY US CRL: 09/15/2023 US/US OB transvaginal IMPRESSION: 1. Single live intrauterine . Electronically authenticated by: AZEEM HUGHES Date: 02/05/2023 22:10 Dictated By: Azeem Hughes M.D. Signed By: 02/05/232211 DD/ 09 TD/TT: Offset Second Press Operator: Procedure Note Radiology, Radiologist, MD - 02/05/2023 [place] [address] Ultrasound Report Signed Patient: SUE MARROQUIN NMR#: [id number] : 2000Acct:[id number] Age/Sex: 22 / FADM Date: 02/04/23 Loc: US Attending Dr: ALFREDO DUONG APRN, CNM Ordering Physician: ALFREDO DUONG APRN, CNM Date of Service: 02/04/23 Procedure(s): US OB transvaginal Accession Number(s): [id number] cc: ALFREDO DUONG APRN, CNM; YUNG ARAGON [facility] [place] [address] Patient Name: SUE MARROQUIN MRN: [id number] date: 2000 Sex: F Assigned Patient Location: US Current Patient Location: Accession/Order Number: [id number] Exam Date: 02/04/2023 17:45 Report Date: 02/05/2023 22:10 At the request of: ALFREDO DUONG Procedure: US OB transvaginal EXAMINATION: US OB transvaginal HISTORY: AMENORRHEA N91.2 COMPARISON: No relevant comparison available. FINDINGS: GESTATIONAL SAC: Present and normal appearing. YOLK SAC: Present and normal appearing. POLE: Present and normal appearing. CARDIAC: Present. UTERUS: Normal size and appearance. OVARIES: Right: Not seen. Left: Normal. CERVIX: 4.9 cm in length and closed. CUL-DE-SAC: Normal. OTHER: None. AGE BY LMP: 8 weeks 2 days JANIS BY LMP: 09/14/2023 AGE BY US CRL: 8 weeks 1 day JANIS BY US CRL: 09/15/2023 US/US OB transvaginal IMPRESSION: 1. Single live intrauterine . Electronically authenticated by: AZEEM HUGHES Date: 02/05/2023 22:10 Dictated By: Azeem Hughes M.D. Signed By:02/05/232211 DD/ 09 TD/TT: Offset Second Press Operator: us Alfredo Duong CNM [facility] Final Resu lt documented in this encounter Visit Diagnoses Not on filedocumented in this encounter Care Teams Automated Teller Manager Relationship Specialty Start Date End Date Yung Aragon MD [address] [place] [address] PCP - General Family Medicine 10/27/22 Yung Aragon MD [address] [place] [address] PCP - [place] [employer] 12/12/2202/10 Payton Pulido MD [address] [place] [address] PCP - [place] [employer] 02/11/2303/12 Yung Aragon MD [address] [place] [address] PCP - [place] [employer] 03/13/2303/12 Serene Alfred NP [facility] [place] [address] PCP - [place] [employer] 03/13/2404/12 Serene Alfred NP [address] [place] [address] Nurse Practitioner Family Medicine 10/27/22 documented as of this encounter
--- OUTSIDE RECORDS SUMMARY | 2024-12-29 10:33 | XMS_ITS | Encounter Summary ---
Author Organization [facility] Address [address] [place] [address] Care Team Providers Care Pcat Instructor Name Role Phone Chey Chin MD Primary Care Provider [phone] Encounter Details Date Type Department Care Team (Late st Contact Info) Description 02/02/2015 Ophth Exam [facility] [place] [address], [address] [place] [address] Martha Tran MD [address] [place] [address] Social History Tobacco Use Types Packs/Day Years [...] 8:09 PM EDT COVID-19 RESULTS PENDING 05/18/2020 05/18/2020 02/ 08/2020 9:53 AM EST COVID-19 RESULTS PENDING 06/20/2020 [...] documented as of this encounter Care Teams Pcat Instructor Relationship Specialty Start Date End Date Chey Chin MD [address] [place] [address] PCP - General Family Medicine 01/30/20 documented as of this encounter
--- OUTSIDE RECORDS SUMMARY | 2024-12-29 10:33 | XMS_ITS | Encounter Summary ---
Author Organization [facility] Address [address] [place] [address] Care Team Providers Care Rice Field Worker Name Role Phone Chey Chin MD Primary Care Provider [phone] Encounter Details Date Type Department Care Team (Late st Contact Info) Description 01/02/2015 Ophth Exam [facility] [place] [address], [address] [place] [address] Martha Tran MD [address] [place] [address] Social History Tobacco Use Types Packs/Day Years [...] documented as of this encounter Care Teams Rice Field Worker Relationship Specialty Start Date End Date Chey Chin MD [address] [place] [address] PCP - General Family Medicine 01/30/20 documented as of this encounter
--- OUTSIDE RECORDS SUMMARY | 2024-12-29 10:33 | XMS_ITS | Encounter Summary ---
Author Organization [facility] Address [address] [place] [address] Care Team Providers Care Meat Stock Clerk Name Role Phone Chey Chin MD Primary Care Provider Serene Alfred MANAGER TESTING Unavailable [phone] Chey Chin MD Unavailable [phone] Serene Alfred MANAGER TESTING Unavailable [phone] Encounter Details Date Type Department Care Team (Late st Contact Info) Description 04/24/2023 External Result Encounter [facility] [address] [place] [address] Alfredo Duong CNM [address] [place], [place] [id number] Social History Tobacco Use Types Packs/Day Years Used Date Smoking Tobacco: Never Smokeless Tobacco: Never Alcohol Use Standard Drinks/Week Comments Not Currently 0 (1 standard drink = 0.6 oz pur e alcohol) caffeine intake : coffee Humiliation, Afraid, Rape, and Kick questionnair [...] often do you attend chur ch or faith services? Never 02/09/2023 Do you belong to any clubs o r organizations such as mormonism groups, unions, fraternal or athletic groups, or [...] Recorded Patient Health Questionnaire-2 Score 0 02/09/2023 [facility] - Occupational [...] Priority Date/Time Associated Diagnosis Comments US OB 14+ WEEKS ANATOMY SCAN 04/24/2023 2:36 PM EST documented in this encounter Results * US OB 14+ weeks anatomy scan (04/24/2023 2:36 PM EST) Anatomical Region Laterality Modality Body Ultrasound 04/24/2023 2:36 PM EST Narrative 04/24/2023 2:35 PM EST THIS EXAM WAS PERFORMED AT [facility] REPORT (Signed Final 04/24/2023 14:35) PATIENT INFO: ID #: [id number] : [birth year] (22 yrs)(F) Name: SUE MARROQUIN Visit Date: 04/24/2023 13:32 PERFORMED BY: Attending: Alysa Carmona MD, [facility] Performed By: Kacey Villalba RDOR Referred By: Shonna Duong [facility] Ref. Address: [address] [address] Location: Maternal Medicine [facility] SERVICE(S) PROVIDED: Comprehensive Anatomic Survey 34607 OB Transvaginal 65975 INDICATIONS: Screening for anatomic survey Z36.89 Screening for cervical length Z36.86 Supervision of other high risk , O09.90 antepartum- MOB crohns disease and colitis Maternal anemia, antepartum O99.019 VITAL SIGNS: Weight (lb): 185 Height: 5'3 BMI: 32.77 EVALUATION: Num Of Fetuses: 1 Heart 144 Rate(bpm): Cardiac Activity: Present appears normal Presentation: Cephalic Placenta: Anterior, away from cervical os P. Cord Insertion: Eccentric (>2cm from edge) Amniotic Fluid YOLANDA FV: Subjectively within normal limits BIOMETRY: BPD: 46 mm G.Age: 19w 6d 65 % OFD: 62.3 mm HC: 173.9 mm G.Age: 19w 6d 60 % AC: 152.4 mm G.Age: 20w 3d 74 % FL: 33.7 mm G.Age: 20w 4d 77 % HUM: 30.3 mm G.Age: 20w 0d 63 % CER: 21.4 mm G.Age: 20w 2d 81 % NFT: 4.52 mm NB: 5.39 mm 14 % > 1 MoM LV: 7.7 mm CM: 2.4 mm TIB: 27.1 mm G.Age: 19w 5d 59 % CI: 73.8 % 70 - 86 FL/HC: 19.4 % 16.8 - 19.8 HC/AC: 1.14 1.09 - 1.39 FL/BPD: 73.3 % FL/AC: 22.1 % 20 - 24 Est. FW: 353 g 0 lb 12 oz 89 % m OB HISTORY: : 1 GESTATIONAL AGE: LMP: 19w 4d Date: 12/08/22 JANIS: 09/14/23 U/S Today: 20w 1d JANIS: 09/10/23 Best: 19w 4d Det. By: LMP (12/08/22) JANIS: 09/14/23 TARGETED ANATOMY: Central Nervous System Calvarium/Cranial V.: Appears normal Intracranial Rebekah: Not well visualized Cavum: Appears normal Parenchyma: Not well visualized Lateral Ventricles: Appears normal Choroid Plexus: Appears normal Cereb./Vermis: Could not document Cisterna Magna: Appears normal Midline Falx: Appears Normal Spine Cervical: Appears normal Thoracic: Appears normal Lumbar: Appears normal Sacral: Appears normal Shape/Curvature: Appears Normal Head/Neck Face: Appears normal Lips: Appears normal Neck: Appears normal Nuchal Fold: Appears normal Nasal Bone: Present Palate: Appears normal Profile: Appears normal Orbits/Eyes: Appears normal Mandible: Appears Normal Maxilla: Appears normal Thorax Thoracic Contour: Could not document Lungs: Could not document 4 Chamber View: Not well visualized Cardiac Activity: Appears Normal Cardiac Rhythm: Normal Cardiac Situs: Appears normal Rt Outflow Tract: Not well visualized Lt Outflow Tract: Not well visualized Aortic Arch: Not well visualized Ductal Arch: Appears normal SVC: Appears Normal Interventr. Septum: Not well visualized Cardiac [place]: Appears normal Diaphragm: Appears normal 3 Vessel View: Could not document 3 V Trachea View: Could not document IVC: Appears normal Crossing: Could not document Abdomen Ventral Wall: Appears normal Cord Insertion: Appears normal Situs: Appears normal Stomach: Appears normal Lt Kidney: Appears normal Rt Kidney: Appears normal Bladder: Appears normal Bowel: Appears normal Extremities Lt Humerus: Appears normal Rt Humerus: Appears normal Lt Forearm: Appears normal Rt Forearm: Appears normal Lt Hand: Not well visualized Rt Hand: Not well visualized Lt Femur: Appears normal Rt Femur: Appears normal Lt Lower Leg: Appears normal Rt Lower Leg: Appears normal Lt Foot: Appears normal Rt Foot: Appears normal Other Umbilical Cord: Appears normal Masses: None visualized Genitalia: Male CERVIX UTERUS ADNEXA: Cervix Length: 3.46 cm. Appears closed, without funnelling Uterus Gravid uterus Right Ovary Not visualized Left Ovary Not visualized Cul De Sac No fluid seen Adnexa No adnexal masses identified COMMENTS: 1. Ultrasound is not diagnostic for chromosomal abnormalities, will not detect all structural abnormalities, and is not diagnostic for genetic disorders even if multiple exams are performed during a given . 2. In addition to the trans abdominal approach, a trans vaginal ultrasound was also performed to optimize the visualization of the lower uterine segment and the cervix. 3. anatomic survey is incomplete due to position. Alysa Carmona MD, [facility] Electronically Signed Final Report 04/24/2023 14:35 IMPRESSION: 1. Single intrauterine size consistent with dates. 2. Transvaginal Cervical Length = 3.5 cm. RECOMMENDATIONS: 1. Please see [facility] consultation documentation from today's encounter. 2. Patient is scheduled in 4-6 weeks to complete the anatomic survey. 3. Subsequent follow up or other follow up as clinically determined by primary OB provider unless otherwise specified by [facility]. 4. Results forwarded to ordering provider so they can follow up with the patient as necessary. The copy-to physician of this order is ALFREDO Barron The ordering physician of this order is ALYSA Marc Procedure Note Radiology, RadiologistMD - 04/24/2023 THIS EXAM WAS PERFORMED AT [facility] REPORT (Signed Final 04/24/2023 14:35) PATIENT INFO: ID #: [id number] : [birth year] (22 yrs)(F) Name: SUE MARROQUIN Visit Date: 04/24/2023 13:32 PERFORMED BY: Attending: Alysa Carmona MD [facility] Performed By: Kacey Villalba RDMS Referred By: Shonna SHELTON Ref. Address: [address] [address] Location: [facility]aternal Medicine [facility] SERVICE(S) PROVIDED: Comprehensive Anatomic Survey 53567 OB Transvaginal 44758 INDICATIONS: Screening for anatomic survey Z36.89 Screening for cervical length Z36.86 Supervision of other high risk , O09.90 antepartum- MOB crohns disease and colitis Maternal anemia, antepartum O99.019 VITAL SIGNS: Weight (lb): 185 Height: 5'3 BMI: 32.77 EVALUATION: Num Of Fetuses: 1 Heart 144 Rate(bpm): Cardiac Activity: Present appears normal Presentation: Cephalic Placenta: Anterior, away from cervical os P. Cord Insertion: Eccentric (>2cm from edge) Amniotic Fluid YOLANDA FV: Subjectively within normal limits BIOMETRY: BPD: 46 mm G.Age: 19w 6d 65 % OFD: 62.3 mm HC: 173.9 mm G.Age: 19w 6d 60 % AC: 152.4 mm G.Age: 20w 3d 74 % FL: 33.7 mm G.Age: 20w 4d 77 % HUM: 30.3 mm G.Age: 20w 0d 63 % CER: 21.4 mm G.Age: 20w 2d 81 % NFT: 4.52 mm NB: 5.39 mm 14 % > 1 MoM LV: 7.7 mm CM: 2.4 mm TIB: 27.1 mm G.Age: 19w 5d 59 % CI: 73.8 % 70 - 86 FL/HC: 19.4 % 16.8 - 19.8 HC/AC: 1.14 1.09 - 1.39 FL/BPD: 73.3 % FL/AC: 22.1 % 20 - 24 Est. FW: 353 g 0 lb 12 oz 89 % m OB HISTORY: : 1 GESTATIONAL AGE: LMP: 19w 4d Date: 12/08/22 JANIS: 09/14/23 U/S Today: 20w 1d JANIS: 09/10/23 Best: 19w 4d Det. By: LMP (12/08/22) JANIS: 09/14/23 TARGETED ANATOMY: Central Nervous System Calvarium/Cranial V.: Appears normal Intracranial Rebekah: Not well visualized Cavum: Appears normal Parenchyma: Not well visualized Lateral Ventricles: Appears normal Choroid Plexus: Appears normal Cereb./Vermis: Could not document Cisterna Magna: Appears normal Midline Falx: Appears Normal Spine Cervical: Appears normal Thoracic: Appears normal Lumbar: Appears normal Sacral: Appears normal Shape/Curvature: Appears Normal Head/Neck Face: Appears normal Lips: Appears normal Neck: Appears normal Nuchal Fold: Appears normal Nasal Bone: Present Palate: Appears normal Profile: Appears normal Orbits/Eyes: Appears normal Mandible: Appears Normal Maxilla: Appears normal Thorax Thoracic Contour: Could not document Lungs: Could not document 4 Chamber View: Not well visualized Cardiac Activity: Appears Normal Cardiac Rhythm: Normal Cardiac Situs: Appears normal Rt Outflow Tract: Not well visualized Lt Outflow Tract: Not well visualized Aortic Arch: Not well visualized Ductal Arch: Appears normal SVC: Appears Normal Interventr. Septum: Not well visualized Cardiac [place]: Appears normal Diaphragm: Appears normal 3 Vessel View: Could not document 3 V Trachea View: Could not document IVC: Appears normal Crossing: Could not document Abdomen Ventral Wall: Appears normal Cord Insertion: Appears normal Situs: Appears normal Stomach: Appears normal Lt Kidney: Appears normal Rt Kidney: Appears normal Bladder: Appears normal Bowel: Appears normal Extremities Lt Humerus: Appears normal Rt Humerus: Appears normal Lt Forearm: Appears normal Rt Forearm: Appears normal Lt Hand: Not well visualized Rt Hand: Not well visualized Lt Femur: Appears normal Rt Femur: Appears normal Lt Lower Leg: Appears normal Rt Lower Leg: Appears normal Lt Foot: Appears normal Rt Foot: Appears normal Other Umbilical Cord: Appears normal Masses: None visualized Genitalia: Male CERVIX UTERUS ADNEXA: Cervix Length: 3.46 cm. Appears closed, without funnelling Uterus Gravid uterus Right Ovary Not visualized Left Ovary Not visualized Cul De Sac No fluid seen Adnexa No adnexal masses identified COMMENTS: 1. Ultrasound is not diagnostic for chromosomal abnormalities, will not detect all structural abnormalities, and is not diagnostic for genetic disorders even if multiple exams are performed during a given . 2. In addition to the trans abdominal approach, a trans vaginal ultrasound was also performed to optimize the visualization of the lower uterine segment and the cervix. 3. anatomic survey is incomplete due to position. Alysa Carmona MD, [facility] Electronically Signed Final Report 04/24/2023 14:35 IMPRESSION: 1. Single intrauterine size consistent with dates. 2. Transvaginal Cervical Length = 3.5 cm. RECOMMENDATIONS: 1. Please see [facility] consultation documentation from today's encounter. 2. Patient is scheduled in 4-6 weeks to complete the anatomic survey. 3. Subsequent follow up or other follow up as clinically determined by primary OB provider unless otherwise specified by [facility]. 4. Results forwarded to ordering provider so they can follow up with the patient as necessary. The copy-to physician of this order is ALFREDO Barron The ordering physician of this order is ALYSA Marc us Alfredo Duong [facility] IMG OB US PROCEDURES Final R esult documented in this encounter Visit Diagnoses Not on filedocumented in this encounter Care Teams Meat Stock Clerk Relationship Specialty Start Date End Date Chey Chin MD [address] [place] [address] PCP - General Family Medicine 10/27/22 Chey Chin MD [address] [place] [address] PCP - [place] [employer] 03/13/2303/12 Serene Alfred NP [address] [place] [address] PCP - [employer] 03/13/2404/12 Serene Alfred NP [address] [place] [address] Nurse Practitioner Family Medicine 10/27/22 documented as of this encounter
--- OUTSIDE RECORDS SUMMARY | 2024-12-29 10:33 | XMS_ITS | Clinical Summary ---
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 Tolerates aerosol for PJP prophylaxis. 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 03/20/20 22 Active Vit-Fe Fumarate-FA ( PO) Take by mouth. A ctive riTUXimab (RITUXAN IV) by Intravenous route. Every 6 months Active Risankizumab-rza a (Skyrizi) 360 MG/2.4ML Solution CartridgeIndicat ions:Crohn's disease of both small and large intestine with complication Inject 360 mg under the skin every 56 days. 2.4 mL 6 09/08/19 25 Active risankizumab-rza a (Skyrizi) 600 MG/10ML SolutionIndicati ons:Crohn's disease of both small and large intestine with complication 600 mg by Intravenous route every 28 days for 3 doses. Infuse Skyrizi 600mg every 4 weeks x 3 doses. No premeds. Rate and dilution per civil division commander deputy sheriff package insert or per pharmacist discretion. Infusion reaction medications per pharmacy or infusion suite standard. 10 mL 2 09/13/19 25 Active Zinc 50 MG tablet Take 1 tablet by mouth daily. 30 tablet 3 09/29/19 25 Active Lidocaine viscous-Alum & Mag Hydroxide-Simeth -diphenhydrAMINE oral mouthwash Swish and spit 15 mL every 6 hours as needed. 240 mL 1 10/11/19 25 Active Additional Information Patient not taking.Reported on 12/26/2024 Ibuprofen 600 MG tablet Take 1 tablet by mouth every 6 hours for 5 days. Alternate with acetaminophen doses every 3 hours. 11/03/19 Active acetaminophen 650 MG Tab CR Take 1 tablet by mouth every 6 hours for 5 days. Alternate with ibuprofen doses every 3 hours. 11/03/19 Active Docusate 100 MG capsule Take 1 capsule by mouth 2 times daily. 60 capsule 1 11/03/19 025 Active Additional Information Patient not taking.Reported on 12/26/2024 bisacodyl 5 MG Tab DRIndications:An orectal stricture Take all 4 tablets at 11am the day before surgery 4 tablet 12/27/19 25 025 Discontin ued(Error ) Polyethylene glycol 17 GM/SCOOP Powder powderIndication s:Anorectal stricture 11 AM: Take entire contents over 2 hours as instructed. 255 g 12/27/19 25 025 Discontin ued(Error ) metroNIDAZOLE 500 MG tabletIndication s:Anorectal stricture Take 2 tablets (1000 mg) at 1pm, 2pm, and 9pm the day before your procedure. 6 tablet 12/27/19 25 025 Discontin ued(Error ) Neomycin 500 MG tabletIndication s:Anorectal stricture Take 2 tablets (1000 mg) at 1pm, 2pm, and 9pm the day before your procedure. 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 Pulmonary nodule 09/01/2023 Crohn's disease in remission 04/29/2023 Obesity (BMI 30.0-34.9) 02/25/2023 Encounters Date Type Department Care Team Description 12/26/2024 12:00 PM EDT Clinical Support Encounter [facility] [address] [phone] Henry Rodas MD Anorectal stricture (Primary Dx) 12/26/2024 11:15 AM EDT Office Visit Division of Colon & Rectal Surgery [address] [phone] Henry Rodas MD Anorectal stricture (Primary Dx) 12/26/2024 Orders Only Division of Colon & Rectal Surgery [address] [phone] Yvette Ramirez SERVER SERVICE ASSISTANT-INVASIVE PHYSICIAN Anorectal stricture (Primary Dx); Crohn's disease of both small and large intestine with complication 12/26/2024 Telephone Division of Colon & Rectal Surgery [address] [phone] Henry Rodas MD Appointment 12/16/2024 Results [facility] [address] [place] [address] Christin Lopez SERVER SERVICE ASSISTANT-INVASIVE PHYSICIAN LABS (OUTSIDE), LABS (OUTSIDE) 12/09/2024 10:00 AM EDT Telemedicine [facility] [address] [place] [address] Christin Lopez SERVER SERVICE ASSISTANT-INVASIVE PHYSICIAN Crohn's disease of both small and large intestine with complication (Primary Dx) 11/14/2024 8:00 AM EDT Telemedicine Division of Colon & Rectal Surgery [address] [phone] Yvette Ramirez, SERVER SERVICE ASSISTANT-INVASIVE PHYSICIAN Postoperative follow-up (Primary Dx); Crohn's disease of both small and large intestine with complication; Anorectal stricture; Chronic fatigue; Weight loss 11/14/2024 Telephone Division of Colon & Rectal Surgery [address] [phone] Yvette Ramirez, SERVER SERVICE ASSISTANT-INVASIVE PHYSICIAN Appointment 2024 Telephone Central Scheduling [facility] [phone] Julianna Duran Appointment 2024 Telephone Division of Colon & Rectal Surgery [address] [phone] Henry Rodsa MD Surgery 11/02/2024 4:23 PM EDT Anesthesia Event [facility] [address] [place] [phone] Kyrie Bailey MD Feldtmann, Erik J, MD 11/02/2024 3:35 PM EDT - 11/02/2024 5:05 PM EDT Surgery [facility] [address] [place] [phone] Henry Rodas MD EXAM UNDER ANESTHESIA ANORECTAL 11/02/2024 2:07 PM EDT - 11/02/2024 7:00 PM EDT Hospital Encounter [facility] [address] [place] [phone] Henry Rodas MD Crohn's disease of both small and large intestine with complication Discharge Disposition: Home or Self Care 11/01/2024 Telephone Division of Colon & Rectal Surgery [address] [phone] Henry Rodas MD Visit Preparation 10/26/2024 3:00 PM EDT Pre-Operative Nurse Assessment [facility] [address] [place] [phone] Herny Rodas MD Patient is scheduled for surgical procedure (Primary Dx) 10/21/2024 Telephone Division of Colon & Rectal Surgery [address] [phone] Henry Rodas MD Reschedule 10/19/2024 Telephone Division of Colon & Rectal Surgery [address] [phone] Henry Rodas MD Orders 10/17/2024 10:30 AM EDT Office Visit Division of Colon & Rectal Surgery [address] [phone] Henry Rodas MD Crohn's disease of both small and large intestine with complication (Primary Dx) 10/17/2024 Telephone Division of Colon & Rectal Surgery [address] [phone] Henry Rodas MD Appointment 10/10/2024 Orders Only Gastroenterology and Hepatology [address] [phone] Christin Lopez APRN-CNP ERRONEOUS ENCOUNTER--DISREGARD (Primary Dx) 09/30/2024 Medication Management Inflammatory Bowel Disease [address] [place] [address] Andressa Su, [facility] Iron deficiency (Primary Dx); Intestinal malabsorption, unspecified type 09/28/2024 Documentation Only Division of Colon & Rectal Surgery [address] [phone] Henry Rodas MD 09/28/2024 Results [facility] [address] [place] [address] Christin Lopez APRN-CNP METHYLMALONIC ACID, FOLATE, SERUM, VITAMIN D (25-HYDROXY,TOTAL), Additional followed-up results: 8 from Last 3 Months Immunizations Immunization Administration Dates Next Due Hepatitis B Vaccine PEDS/ADO LES (ENGERIX-B / RECOMBIVAX HB 01/04/2002,2001 Hepatitis B Vaccine, Adult ( ENGERIX-B / RECOMBIVAX HB) 08/11/2022,06/26/2022 Influenza, injectable, quadr ivalent, preservative free 02/19/2022,02/15/2021,02/29/2020,2019,04/29/2019,05/05/2013 Pneumococcal Conjugate 7-Shonna ent Vac <5yo, IM 03/14/2003,02/10/2003,06/01/2002,2001 Family History Medical History Relation Name Comments Hypertension Father Kian Marroquin Bleeding or Clotting Problems Mother Angelique lawrence Breast Cancer Mother Angelique Marroquin Stroke Mother Angelique Marroquin Relation Name [...] Orientation Straight 05/26/2024 3: 24 PM EST Last Filed Vital Signs Vital Sign Reading [...] Mass Index 26.96 12/26/2024 11:04 AM EDT Plan of Treatment Upcoming Encounters Date Type Department Care Team (Late st Contact Info) Description 01/02/2025 1:00 PM EDT Clinical Support Encounter [facility] [address] [place] [phone] 01/05/2025 11:30 AM EDT Pre-Operative Nurse Assessment Comprehensive [facility] [address] [place] [phone] Henry Rodas MD [address] [phone] 01/17/2025 10:00 AM EDT Hospital Encounter [facility] [address] [place] [address], [place] [phone] Henry Rodas MD [address] [phone] Anorectal stricture 01/17/2025 12:00 PM EDT - 01/17/2025 2:30 PM EDT Surgery [facility] [address] [place] [address], [place] [phone] Henry Rodas MD [address] [phone] ILEOSTOMY JEJUNOSTOMY NON-TUBE LAPAROSCOPIC 02/20/2025 11:00 AM EST Office Visit Division of Colon & Rectal Surgery [address] [phone] Yvette Ramirez, SERVER SERVICE ASSISTANT-INVASIVE PHYSICIAN [address] [phone] Scheduled Procedures Name Priority Associated Diagnoses Date/Ti me ILEOSTOMY JEJUNOSTOMY NON-TUBE LAPAROSCOPIC Anorectal stricture Crohn's disease of both small and large intestine with complication 01/17/2025 12:00 PM EDT Health Maintenance Due Date Last Done Comments GONORRHEA SCREEN 2001 HIV SCREENING DISCUSSION 2016 HPV VACCINE ADOL (1 - 3-dose series) 2016 HPV VACCINE (1 - 3-dose series) 2016 CHLAMYDIA SCREEN 2017 CERVICAL CANCER SCREENING DISCUSSION 2022 TETANUS 10/21/2023 10/20/2013, 11/12, 06/01/2002, Additional history exists COVID-19 VACCINE ( season) 2024 03/21/2021 INFLUENZA VACCINE (#1) 2024 , 02/15/2021, 02/29/2020, Additional history exists ZOSTER (SHINGLES) VACCINE Discontinued 11/07/2002 PNEUMOCOCCAL VACCINE SERIES Aged Out 03/14/2003, 02/10/2003, 06/01/2002, Additional history exists No longer eligible based on patient's age to complete this topic TDAP (ADULT) Completed 10/20/2013, 11/12, 06/01/2002, Additional history exists HEP B VACCINE Completed 08/11/2022, 06/11, 06/01/2002, Additional history exists HEPATITIS C VIRUS SCREENING Completed 02/25/2023 Procedures Procedure Name Priority Date/Time Associated Diagnosis Comments LABS (OUTSIDE) Routine 12/09/2024 2:15 PM EDT LABS (OUTSIDE) Routine 12/09/2024 2:14 PM EDT LABS (OUTSIDE) 12/09/2024 LABS (OUTSIDE) 12/09/2024 CONTINUOUS CARDIAC MONITORING STRIP 11/02/2024 5:26 PM EDT SURG PATH REQUEST Routine 11/02/2024 5:0 3 PM EDT Crohn's disease of both small and large intestine with complication PROCEDURE - INTUBATION Routine 11/02/2024 4:34 PM EDT NM SIGMOIDOSCOPY FLX DX W/COLLJ SPEC BR/WA IF PFRMD 11/02/2024 4:23 PM EDT Crohn's disease of both small and large intestine with complication Case Notes [id number] NM ANRCT XM SURG REQ ANES GENERAL SPI/EDRL DX 11/02/2024 4:23 PM EDT Crohn's disease of both small and large intestine with complication Case Notes [id number] CONTINUOUS CARDIAC MONITORING STRIP 11/02/2024 3:02 PM EDT HC HCG QUAL Routine 11/02/2024 2:48 PM EDT HC HCG QUAL Routine 11/02/2024 2:44 PM EDT HEPATITIS BATTERY, CHRONIC Routine 02/25/2023 1:25 PM EST Crohn's disease of both small and large intestine with complication from Last 3 Months or Most Recently Relevant to Health Maintenance Results * LABS (OUTSIDE) (12/09/2024 2:15 PM EDT) Only the most recent of4 resultswithin the time period is included. us Christin Lopez APRN-INVASIVE PHYSICIAN LAB SEND OUTS Final Resu lt * CONTINUOUS CARDIAC MONITORING STRIP (11/02/2024 5:26 PM EDT) 11/02/2024 5:26 PM EDT us Other Other ECG ORDERABLES Final Result RADIOLOGY * SURG PATH REQUEST (11/02/2024 5:03 PM EDT) Case Report Surgical Pathology Report Case: [id number] Authorizing Provider: Henry Rodas MD Collected: 11/02/2024 05:03 PM [facility] Received: 11/02/2024 05:17 PM Pathologist: Lavern Restrepo MD Specimen: SURG PATH, Anal canal biopsies 11:18 AM EDT [facility] Clinical History Crohn's disease of both small and large intestine with complication. Medical History: Crohn's colitis. 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 Asthma. Pulmonary nodules. Iron deficiency anemia. Hidradenitis suppurativa. Pulmonary nodule. Migraine. 11:18 AM EDT [facility] Pathologic Diagnosis A. Anal canal, biopsy: Negative for malignancy Polypoid inflamed granulation tissue with erosion and dilated / congested vessels Negative for granulomas No epithelial lining observed 11:18 AM EDT [facility] at 1118 EDT Diagnosis Comments Block Stain Result A1-2 CMV Negative A1-3 DOG-1 Negative A1-4 CD117 (c-kit) Negative A1-5 S-100 Negative A1-6 CAM 5.2 Negative A1-7 Smooth Muscle Actin Negative 11:18 AM EDT [facility] Microscopic Description A microscopic examination was performed. All controls show appropriate reactivity. All immunohistochemistry (IHC), in situ hybridization (MARCELLE), and histochemical tests were developed by and are performed at the [facility] Clinical Laboratory, Histology and IHC Lab, [address] [place] [address]. All Immunofluorescent (IF) tests were developed by and are performed at the [facility], Renal Division, [address] [place] [address]. All tests reported here, except for PD-L1, have not been cleared by or approved by the [place] Food and Drug Administration (FDA). The laboratory is regulated under CLIA as qualified to perform high-complexity testing. The tests are used for clinical purposes. They should not be regarded as investigational or for research. 11:18 AM EDT [facility] Gross Description The specimen is received in one properly labeled container with the patient's name and accession number. A. The specimen is designated anal canal biopsies and consists of two fragments of ugalde-pink soft tissue, up to 0.2-0.3 cm in greatest dimension. TE 1 Lab Use Only: JobID [id number] Grosser for this case was: Shari Starkfiorella 11:18 AM EDT [facility] Images 11:18 AM EDT [facility] For Immediate Release to [facility]? Yes Yes 11:18 AM EDT [facility] Professional Interpretation Performed at: [facility] [address] [place] [address] 07/25/202 5 11:18 AM EDT [facility] Permanent (SURG PATH) 11/02/2024 5:03 PM EDT 11/02/2024 5:17 PM EDT us Henry Rodas MD SURG PATH Final Result Performing Organization Address [facility] de Phone Number [facility] [address] [address] * NM PROCEDURE - INTUBATION SUPRAGLOTTIC AIRWAY (11/02/2024 4:34 PM EDT) Anatomical Region Laterality Modality Other Narrative 11/02/2024 4:34 PM EDT Fallon Munoz DO 11/02/2024 4:42 PM *INTUBATION Date/Time: 11/02/2024 4:34 PM Authorized by: Kyrie Bailey MD Performed by: Fallon Munoz DO GENERAL STAFF INFORMATION: Patient location during procedure: [facility] procedure area Room: [facility] No anticipated increased risk of difficult airway INDICATIONS AND PATIENT CONDITION: Sedation level: general anesthesia Preoxygenated: yes Preoxygenation method: bag mask Mask difficulty assessment: 1 - easy Attending Supervision present for entire procedure: Yes Indication(s) for intubation: general anesthesia FINAL AIRWAY DETAILS: Final airway type: supraglottic airway Final airway difficulty assessment: airway not difficult Successful airway: i-gel Size 4 Placement verified by: CO2 detection Tube Secured with: tape Number of attempts at approach: 1 Airway placement result: atraumatic intubation Successful Placement?: Yes Medication administered at: 11/02/2024 4:34 PM us Kyrie Bailey MD BEDSIDE PROCEDURES Final Resu lt * CONTINUOUS CARDIAC MONITORING STRIP (11/02/2024 3:02 PM EDT) 11/02/2024 3:02 PM EDT us Other Other ECG ORDERABLES Final Result Performing Organization Address [facility] Co de Phone Number RADIOLOGY * BETA HCG, URINE (POC DEVICE) (11/02/2024 2:48 PM EDT) Only the most recent of2 resultswithin the time period is included. Beta Hcg,Urine (Poc Device) Negative Negative 11/02/2024 2:51 PM EDT [facility] Unspecified 11/02/2024 2:48 PM EDT 11/02/2024 2:51 PM EDT Narrative [facility] - 11/02/2024 2:51 PM EDT Test performed at address of the patient encounter. Henry Rodas MD POINT OF CARE TESTING Final Result Performing Organization Address [facility] de Phone Number [facility] [address] [address] * HEPATITIS BATTERY, CHRONIC (02/25/2023 1:25 PM EST) Hepatitis B Surface Ag Negative Negative 02/25/2023 4:40 PM EST [facility] Hep B Surface Ab Negative Negative 02/25/2023 4:40 PM EST [facility] Hep B Core Ab,Total (IgG+IgM) Negative Negative 02/25/2023 4:40 PM EST [facility] Hepatitis C Antibody Negative Negative 02/25/2023 4:40 PM EST [facility] Blood Venipuncture / Unknown 02/25/2023 1:25 PM EST 02/25/2023 1:30 PM EST Kye Solis MD IMMUNOLOGY ORDERABLES Final R esult Performing Organization Address [facility] Co de Phone Number [facility] [address] [address] from Last 3 Months or Most Recently Relevant to Health Maintenance Insurance [facility] PPO POS Member Subscriber Plan / Payer (Ef fective 2021-Present) Name:Kings Marroquin Relation to Subscriber:Child Name:KIAN MARROQUIN Date of :1976 (Home) Address: [address] [place] [address] Payer ID:[id number] (NAIC) Type:Not on file Address: [address] [place] [facility] PPO POS Advance Directives For more information, please contact: [phone] (7:30 AM - 6PM [place], Thursday-Thursday) * Full Code (Latest Code Status on File) Date Activated Date Inactivated Comments 11/02/2024 2:39 PM Care Teams Pole Truck Driver Relationship Specialty Start Date End Date Chey Pillai MD [address] [place] [address] PCP - General Family Medicine 10/17/24
--- OUTSIDE RECORDS SUMMARY | 2024-12-29 10:33 | XMS_ITS | Clinical Summary ---
Author Organization [facility] Address [address] [place] [address] Care Team Providers Care Wire Basket Maker Name Role Phone Chey Chin MD Primary Care Provider [phone] Allergies Active Allergy Reactions Criticality Noted Date Comments Cefdinir Rash Low 05/24/2014 Has reaction to brand name Omnicef, but can take generic cefdinir capsules Infliximab Other (See Comments) Medium 01/30/2015 Psoriasis (Remicade) Pentamidine Headache 12/31/2019 Flushing, headache, and vomiting with IV infusion. Tolerates aerosol for PJP prophylaxis. Sulfa (Sulfonamide Antibiotics) Rash Low 05/24/2014 Vancomycin Analogues Magdalene Syndrome Low 08/08/2014 Medications * This document contains information received from the source organization and may not represent a complete record from that organization. loratadine 10 mg tablet Take 1 tablet by mouth once daily. Active 0.9% NaCl 0.9 % SolP 100 mL with riTUXimab 10 mg/mL Conc Inject into IV. Active sodium chloride, sodium bicarb-nasal rinse squeeze bottle with packet (NeOdnoklassnikimed Sinus) Place 1 Packet in each nostril twice daily. Mix 1 packet as directed on package and use to rinse sinuses two times daily. 100 Each 2 Active acetaminophen 325 mg tablet (Tylenol) Take 2 tablets by mouth every 6 hours as needed for Pain. 80 tablet 2 Active ibuprofen 600 mg tablet (Motrin) Take 1 tablet by mouth every 6 hours as needed for Pain. 40 tablet 2 Active ustekinumab 90 mg/mL subcutaneous syringe (Stelara) Inject 1 mL under skin every 8 weeks. 1 Each 6 3 Active sertraline 25 mg tablet (Zoloft) Take 1 tablet by mouth once daily. Active Active Problems Problem Noted Date Diagnosed Date Adalimumab (Humira) long-term use 10/27/2022 12/18/2022 At risk for infection due to immunosuppression 0 06/09/2021 Overview (08/19/2021): Autoimmune/Autoinflammatory Condition: Underlying diagnosis: 20yo immunocompromised female [...] end of antibiotics therapy. 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 Will start treatment with low potency topical steroid. Advised to contact us in 2-3 weeks if no improvement for addition of anti-fungal cream. 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 Will continue current topical compounded clobetasol with addition of halobetasol directly to alopecic areas on scalp. Assessment & Plan (07/19/2019 9:32 AM EDT): Current flare focally to right postauricular and umbilicus. Previous triamcinolone 0.1% ointment with no effect with daily use x 1 month, per patient. Will increase potency to fluocinonide, prefers cream vehicle. No f/u needed at this time, but encouraged her to contact us if treatment does not work. 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 Crohn's disease Iron deficiency Resolved Problems Problem Noted Date Diagnosed Date Resolved Date Gastroesophageal reflux disease 02/26/2022 02/26/2022 Leukocytosis 02/26/2022 02/26/2022 Loss of appetite 02/26/2022 02/26/2022 Skin rash 08/20/2021 08/20/2021 Aseptic meningitis 08/18/2021 3 Meningitis 08/16/2021 08/18/2021 Dehydration 06/08/2021 06/17/2021 Fever 06/08/2021 06/17/2021 Skin nodule 12/24/2020 06/17/2021 Assessment & Plan (12/24/2020 10:41 AM EDT): Unclear diagnosis of lesion on cheek, as we have not had the opportunity to evaluate this in person. Behavior suggestive of cystic etiology with intermittent episodes of inflammation, though cannot rule out neoplastic growth at this time. Given that she is already established with a local plastic surgeon, favor obtaining small biopsy of lesion to help guide further management. If inflammatory in nature, intralesional steroid injection could be an option the could spare her from a larger surgical procedure. Advised to reach out to local plastic surgeon to start this process. Severe frontal headaches 06/21/202001/2022 Encounter for monitoring of adalimumab therapy 11/23/2019 04/17/2020 Chronic ethmoidal sinusitis 12/23/2018 04/17/2020 Right facial swelling 06/17/20182018 Pain of cheek 06/17/2018 08/13/2018 Difficulty chewing 06/17/2018 9 Intestinal malabsorption 06/17/201806/2018 Left facial swelling 06/11/2018 019 Oral ulcer 06/11/2018 09/16/2018 Hx of Clostridium difficile infection 05/22/2018 04/17/2020 On rituximab therapy 12/30/2017 021 Otitis externa of left ear 09/21/2017 0 09/16/2018 Left acute suppurative otitis media 09/21/2017 04/01/2019 Folliculitis 11/30/2016 12/19/2016 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 04/17/2020 Vitamin D insufficiency 09/23/2016 05/0 06/2018 Eye pain 06/22/2016 12/19/2016 Crohn's disease of intestine with complication 03/18/2016 08/04/2016 intermediate current use of systemic steroids 01/09/2016 08/13/2018 Anemia 08/09/2015 09/14/2015 Chronic maxillary sinusitis 07/11/2015 04/17/2020 Chronic frontal sinusitis 07/11/2015 Chronic sphenoidal sinusitis 07/11/2015 04/17/2020 Shortness of breath 04/23/2015 05/22/19 17 BMI 28.0-28.9,adult 02/22/2015 09/14/19 16 Orbital myositis of both sides 02/22/2015 08/04/2016 Sinusitis 01/02/2015 09/14/2015 Encounter for methotrexate monitoring 10/17/2014 02/15/2018 Encounter for long-term (cur rent) use of steroids 08/29/2014 10/09/2015 Orbital myositis of left side 08/11/2014 08/04/2016 Eye problem 08/10/2014 08/11/2014 Orbital cellulitis on left 08/01/2014 0 08/10/2014 Crohn's disease of small and large intestines 07/21/19 15 02/26/2022 Alopecia 05/24/2014 01/18/2015 Overview (05/26/2014): Secondary to significant underlying scalp psoriasis Orbital myositis 04/01/2019 Immunocompromised 05/22/2016 Headache above the eye region 08/04/2016 Acute pansinusitis 6 Crohn's disease with complication 09/16/2018 Loose stools 12/19/2016 Generalized abdominal pain 0 05/22/2016 ESR raised 07/19/2015 Anemia, antepartum 7 C. difficile colitis 016 Weight loss 12/05/2021 Crohn's colitis 08/04/2016 Post-operative pain 04/27/19 17 Abdominal wall abscess at si te of surgical wound 12/19/2016 Recent weight loss 7 Left lower quadrant pain Diarrhea 12/05/2021 Diplopia 12/19/2016 Immunizations Immunization Administration Dates Next Due DTP 02/10/2003 DTaP Vaccine 12/08/2006, 3,03/08/2002,01/04 Dtp Vaccine 02/10/2003 HEP B/HIB Combined Vaccine 06/01/2002 HIB Vaccine 02/10/2003,03/08/2002,01/04/2002 Hepatitis B Vaccine 01/04/2002,2001 IPV 12/08/2006,06/01/2002 Influenza - Injectable - Tri valent - Preservative Free 02/15/2021,02/04/2016,03/26/2014 Influenza - Live Intranasal - Trivalent 11/20/2017 Influenza Vaccine 6-35mo IM 03/14/2003, 3 Influenza, injectable, quadr ivalent, preservative free 02/15/2021,02/21/2020,04/29/2019,01/08,05/05/2013 Influenza, seasonal, injectable 01/17/2005 MMR Vaccine 12/08/2006,11/07/2002 Meningococcal (Menactra) Vac 10/20/2013 Meningococcal (Menveo) Vac 10/25/2018 Pneumococcal Vaccine,7-Arielle t (Prevnar) 03/14/2003,02/10/2003,06/01/2002,03/08 Polio 03/08/2002,01/04/2002 Tdap Vaccine 10/20/2013 Varicella Vaccine Live 11/07/2002 Family History Medical History Relation Comments No Known Problems Maternal Grandfather No Known Problems Maternal Grandmother No Known Problems Natural Brother Allergies Natural Father Asthma Natural Father Hypertension Natural Father Deep Venous Thrombosis Natural Mother thromboph mary lou work-up negative Stroke Natural Mother Neutropenia Natural Sister Neutropenia, Com mon Variable Immune Deficiency No Known Problems Paternal Grandfather Rheumatoid Arthritis Paternal Grandmother Amblyopia No history of Anesthesia Complications No history of Anesthesia Reaction No history of Bleeding Disorder No history of Blindness No history of Childhood Glaucoma No history of Congenital Cataract No history of Eye Cancer No history of Malignant Hyperthermia No history of Nystagmus No history of Strabismus No history of Relation Status Comments Maternal Grandfather Alive Maternal Grandmother Alive Natural Brother Alive Natural Father Alive Natural Mother Alive Natural Sister Alive Paternal Grandfather Alive Paternal Grandmother Alive Social History Tobacco Use Types Packs/Day Years Used Date Smoking Tobacco: Never Passive Smoke Exposure: Never Smokeless Tobacco: Never Tobacco Cessation:Counseling Given: Not Answered Alcohol Use Standard Drinks/Week Comments Not Currently 0 (1 standard drink = 0.6 oz pur e alcohol) Overall Financial Resource Strain (CARDIA) Answe r Date Recorded How hard is it for you to pa y for the very basics like food, housing, medical care, and heating? Not hard at all 05/04/2024 Hunger Vital Sign Answer Date Recorded Within the past 12 months, y ou worried that your food would run out before you got the money to buy more. Never true 05/04/19 25 Within the past 12 months, t he food you bought just didn't last and you didn't have money to get more. Never true 05/04/2024 PRAPARE - Transportation Answer Date Re corded In the past 12 months, has l ack of transportation kept you from medical appointments or from getting medications? No 04/14 In the past 12 months, has l ack of transportation kept you from meetings, work, or from getting things needed for daily living? No 05/04/2024 Housing Stability Vital Sign Answer Ty e Recorded In the last 12 months, was t here a time when you were not able to pay the mortgage or rent on time? No 01/26/2023 In the last 12 months, how many places have you lived? 1 01/26/2023 In the last 12 months, was t here a time when you did not have a steady place to sleep or slept in a long term (including now)? No 01/26/2023 Housing Stability Vital Sign Answer Ty e Recorded In the last 12 months, was t here a time when you were not able to pay the mortgage or rent on time? No 05/04/2024 Number of Times Moved in the Last Year Not on fi le 05/04/2024 Homeless in the Last Year Not on file 2024 Comments No Sex and Gender Information Value Date Recorded Sex Assigned at Not on file Legal Sex Female 10:50 AM EST Gender Identity Not on file Sexual Orientation Not on file Last Filed Vital Signs Vital Sign Reading Time Taken Comments Blood Pressure 100/80 03/22/2024 3:40 PM EST Pulse 70 03/22/2024 3:40 PM EST Temperature 36.3 C (97.3 F) 03/22/2024 3:40 PM EST Respiratory Rate 18 05/04/2024 10:5 2 AM EST Oxygen Saturation 99% 03/22/2024 3:40 PM EST Inhaled Oxygen Concentration - - Weight 83.3 kg (183 lb 10.3 oz) 025 10:52 AM EST Height 160.5 cm (5' 3.19 ) 05/04/2024 1 0:52 AM EST Body Mass Index 32.34 05/04/2024 10:52 AM EST Plan of Treatment Health Maintenance Due Date Last Done Comments Dental Oral Exam 2001 Dental Hygiene (Due every 6 months) 2002 HPV Vaccine (1 - Risk 3-dose series) 2012 Gastroenterology Transition Assessment 11/04/2015 Hemonc Transition Assessment 11/04/2015 Rheumatology Transition Assessment 11/04/2015 Meningococcal B Vaccine (1 o f 2 - Standard) 2017 Varicella Vaccine (2 of 2 - 2-dose childhood series) 12/18/2017 11/07/2002 Pneumococcal Vaccine (1 of 2 - PCV) 2020 03/14/2003, 02/10/2003, 06/01/2002, Additional history exists COVID-19 Vaccine (2 - Jansse n risk series) 04/18/2021 03/21/2021 DTaP/Tdap/Td Vaccine (7 - Td or Tdap) 10/21/2023 10/20/2013, 12/08/2006, 02/10/2003, Additional history exists Influenza Vaccine (#1) 2024 2, 02/15/2021, 02/15/2021, Additional history exists Hepatitis B Vaccine Completed 06/01/2002, 01/04/2002, 2001 HIB Vaccine Completed 02/10/2003, 05/14, 03/08/2002, Additional history exists IPV Vaccine Completed 12/08/2006, 05/14, 03/08/2002, Additional history exists MMR Vaccine Completed 12/08/2006, 11/07/2002 Meningococcal ACWY Vaccine Completed 10/25/2018, Hepatitis A Vaccine Aged Out No longe r eligible based on patient's age to complete this topic RSV, Nirsevimab Immunization Aged Out No longer eligible based on patient's age to complete this topic Rotavirus Vaccine Aged Out No longer eligible based on patient's age to complete this topic Medical Devices Implanted Type Area Plastic Process Technician Device Identifier Shelf Expiration Date Model / Serial / Lot Surgiflo Implanted:Qty : 1 on 07/23/2015 by Zhou Xie MD at [facility] INPATIENT Other [employer] 07/22/2016 [id number] / / [id number] Description:Nares Staplr Mlti Kristen 80-3.8 - [id number] Implanted:Qty : 1 on 03/21/2016 by Shyam Smiley MD at [facility] INPATIENT [facility] SURGICAL 09/10/2020 / / [id number] Rld Mlti Kristen 80 3.8 - [id number] Implanted:Qty : 1 on 03/21/2016 by Syham Smiley MD at [facility] INPATIENT [facility] SURGICAL 05/13/2020 / / [id number] Rld Mlti Kristen 80 3.8 - [id number] Implanted:Qty : 1 on 03/21/2016 by Shyam Smiley MD at [facility] SURGICAL 09/10/2020 / [id number] / Staplr Ss Ta 90-3.5 - [id number] Implanted:Qty : 1 on 03/21/2016 by Shyam Smiley MD at [facility] INPATIENT [facility] SURGICAL 09/10/2020 / [id number] / [id number] Sealant Floseal 5ml - [id number] Implanted:Qty : 1 on 06/11/2018 by Zhou Xie MD at [facility] INPATIENT [facility] 09/11/2019 ([id number]) ([id number]) / [id number] / [id number] Description:Sinus Graft Bio [place] [employer] .6x9cm - [id number] Implanted:Qty : 1 on 03/22/2024 by Zhou Xie MD at [facility] INPATIENT Left: Other Applifier [id number] 03/10/2025 ([id number]) ([id number]) / / [id number] Description:Site: Left Ear Spng Surgifoam Miriam Sz 12-7 - [id number] Implanted:Qty : 1 on 03/22/2024 by Zhou Xie MD at [facility] INPATIENT Left: Other [employer] 01/21/2028 (1971) (1971A) / / [id number] Procedures Procedure Name Priority Date/Time Associated Diagnosis Comments FERRITIN Routine 01/12/2024 1:02 PM EDT HEPATITIS B SURFACE ANTIGEN Routine 01/14/2023 Encounter for monitoring rituximab therapy USTEKINUMAB QUANTITATIVE WITH ANTIBODIES, SERUM Routine 05/05/2022 10:33 AM EST VITAMIN D 25 HYDROXY Routine 05/05/2022 10:33 AM EST Crohn's disease of small and large intestines with complication QUANTIFERON TB GOLD PLUS Routine 12/24/2021 12:50 PM EDT Encounter for monitoring rituximab therapy Immunosuppressed status COLONOSCOPY/BIOPSY [id number] Routine 06/20/2021 3:04 PM EST Crohn's disease of both small and large intestine without complication ADALIMUMAB LEVEL Routine 06/11/2021 8:30 AM EST CALPROTECTIN (FECAL) Routine 06/09/2021 4:05 PM EST VARICELLA ZOSTER ANTIBODY Routine 11/15/2016 6:28 AM EDT from Last 3 Months or Most Recently Relevant to Health Maintenance Results * FERRITIN (01/12/2024 1:02 PM EDT) FERRITIN 130 ng/mL EXTERNAL LAB Blood (Blood) 01/12/2024 1:0 2 PM EDT us Provider Historical IMMUNOLOGY/SEROLOGY ORDERABL ES Final Result EXTERNAL LAB * HEPATITIS B SURFACE ANTIGEN (Outside Lab Collect) (01/14/2023) Blood Ioana Otero MD IMMUNOLOGY/SEROLOGY ORDERABLES F inal Result Performing Organization Address City/Va Hospital/ZIP Co de Phone Number EXTERNAL LAB * USTEKINUMAB QUANTITATIVE WITH ANTIBODIES, SERUM (05/05/2022 10:33 AM EST) USTEKINUMAB QN, S 7.3 ug/mL 023 4:13 PM EST [facility] Comment: (NOTE) REFERENCE VALUE Lower limit of quantitation = 0.3 mcg/mL ADDITIONAL INFORMATION This test was developed and its performance characteristics determined by [facility] in a manner consistent with CLIA requirements. This test has not been cleared or approved by the U.S. Food and Drug Administration. USTEKINUMAB AB, S <10 <10 [A'U/mL] 05/07/2022 4:13 PM EST [facility] Comment: (NOTE) Absence of detectable ofrdolcw-an-hooaoqqwoql. ADDITIONAL INFORMATION This test was developed and its performance characteristics determined by [facility] in a manner consistent with CLIA requirements. This test has not been cleared or approved by the U.S. Food and Drug Administration. Performed at [facility] , [address] , [place] [address] Serum 05/05/2022 10:3 3 AM EST 05/05/2022 10:48 AM EST Javier Agee MD DRUG LEVEL ORDERABLES Final R esult Performing Organization Address [facility]/Va Hospital/ZIP Co de Phone Number [facility] [address] [place] [address], * VITAMIN D 25 HYDROXY (05/05/2022 10:33 AM EST) VITAMIN D 25 HYDROXY 30 30 - 120 ng/mL 05/05/2022 5:16 PM EST Comment: (NOTE) <21 ng/mL considered deficient 21-29 ng/mL considered insufficient 30-120 ng/mL considered sufficient >120 ng/mL considered high Ranges are based on Endocrine Society criteria. Serum (Blood) 05/05/2022 10: 33 AM EST 05/05/2022 10:47 AM EST Javier Agee MD CHEMISTRY ORDERABLES Final Re sult [facility] [address] [place] [address], * QUANTIFERON TB GOLD PLUS (12/24/2021 12:50 PM EDT) Pathologist [facility] QUANTIFERON-TB RESULT Not Detected Not Detected 12/25/2021 2:50 PM EDT Comment: Infection with Mycobacterium tuberculosis is unlikely but cannot be excluded, especially when illness is consistent with TB and the likelihood of progression to TB disease is increased. Diagnosing or excluding tuberculosis disease and assessing the probability of latent tuberculosis infection requires a combination of epidemiological, historical, medical, and diagnostic findings that should be taken into account when interpreting Quantiferon Tb Gold Plus results. TB1 AG MINUS NIL RESULT 0.00 0.00 - 0.34 [IU]/mL 12/25/2021 2:50 PM EDT TB2 AG MINUS NIL RESULT 0.00 0.00 - 0.34 [IU]/mL 12/25/2021 2:50 PM EDT QUANTIFERON MITOGEN MINUS NIL >10.00 [IU]/mL 12/25/2021 2:50 PM EDT QUANTIFERON NIL 0.05 [IU]/mL 2:50 PM EDT Plasma (Blood) 12/24/2021 12 :50 PM EDT 12/24/2021 1:48 PM EDT Ioana Otero MD IMMUNOLOGY/SEROLOGY ORDERABLES F inal Result [facility] [address] [place] [address], * ProVation Order - Colonoscopy/Biopsy [id number] (06/20/2021 3:04 PM EST) 06/20/2021 3:04 PM EST Javier Agee MD GI PROVATION ORDERABLES Final Result [facility] * ADALIMUMAB LEVEL (06/11/2021 8:30 AM EST) ADALIMUMAB ACTIVITY 24.52 >=0.65 ug/mL 06/13/2021 8:34 PM EST [facility] Comment: (NOTE) INTERPRETIVE INFORMATION: Adalimumab Activity and Neutralizing Ab This test measures the capacity of adalimumab to neutralize TNF activity. Additionally, adalimumab neutralizing antibodies (NAb) are titered, reporting the minimal serum dilution at which blocking of adalimumab activity is no longer observed. This test is used to evaluate secondary response failures to adalimumab therapy. Secondary response failure is defined as loss of clinical response after initial improvement of clinical signs and symptoms. Therapeutic decision should rest on both the clinical response and the knowledge of the fate of the drug including the emergence of immunogenicity in individual patients. Circulating adalimumab levels have been shown to vary considerably between patients. These differences relate to route and frequency of administration and patient-related features such as age, gender, weight, drug metabolism, and concomitant medications such as methotrexate and other immunosuppressants. Clinical Interpretation of Adalimumab and Antibody Testing Results in the Context of Treatment Failure Adalimumab Adalimumab Interpretation Activity Neutralizing Antibody Titer Not Detected Not Detected Sub-therapeutic dose. A higher dosage of adalimumab or shortening the dosing interval may be appropriate. Not Detected Detected Likely immune-mediated treatment failure. A change to another anti-TNF drug may be appropriate. Detected - N/A Sub-therapeutic dose. A Below Target* higher dosage of adalimumab or shortening the dosing interval may be appropriate. Detected - N/A A change to another type Above Target* of therapy (not targeting TNF) may be appropriate if patient is not responding. * AGA recommended target trough concentration for reactive monitoring of patients with active IBD on maintenance therapy is 7.5 ug/mL or greater for adalimumab (Jonathan ALEJANDRO et al, Gastroenterology 2017; 153:827-834). The AGA makes no recommendation regarding the use of routine, proactive therapeutic drug monitoring in adults with quiescent IBD treated with anti-TNF agents. This test was developed and its performance characteristics determined by [facility]. It has not been cleared or approved by the US Food and Drug Administration. This test was performed in a CLIA certified laboratory and is intended for clinical purposes. ADALIMUMAB NEUTRALIZING ANTIBODY Not Detected Not Detected 06/13/2021 8:34 PM EST [facility] EER ADALIMUMAB See Note 06/13/2021 8:34 PM EST [facility] Comment: (NOTE) Access Droplet Technology Enhanced Report using the link below: -Direct access: [email or web address] Performed By: [facility] [address] [place] [address] Range Master: Ruthie Augustin MD Performed at [facility], [address] [place] [address] LAST DOSE ADALIMUMAB 05/31/2021 06/11/2021 8:45 AM EST Serum (Blood) 06/11/2021 8:3 0 AM EST 06/11/2021 8:44 AM EST Ximena Ledesma MD HEMATOLOGY ORDERABLES [place]ina [place] Result [facility] [address] [place] [address], * (ABNORMAL) CALPROTECTIN (FECAL) (06/09/2021 4:05 PM EST) CALPROTECTIN (FECAL) 306(H) <50 ug/g 06/13/2021 2:15 PM EST Comment: (NOTE) INTERPRETIVE INFORMATION: Less than 50 ug/g: Normal 50 to 120 ug/g: Borderline elevated, test should be repeated in 4 to 6 weeks. 121 ug/g or greater: Abnormal, suggestive of inflammatory bowel disease (IBD). Stool (Stool) 06/09/2021 4:0 5 PM EST 06/09/2021 4:12 PM EST Ximena Ledesma MD IMMUNOLOGY/SEROLOGY ORDERA BLES Final Result [facility] [address] [place] [address], * VARICELLA ZOSTER ANTIBODY (11/15/2016 6:28 AM EDT) VARICELLA ZOSTER ANTIBODY Positive 11/18/2016 2:24 PM EDT [facility] Comment: The presence of IgG antibody to varicella zoster virus indicates either prior immunization or infection with varicella zoster virus. False positive results for varicella zoster virus antibody may occur due to antibody to cross reactivity to herpes simplex virus. Serum (Blood) 11/15/2016 6:2 8 AM EDT 11/15/2016 6:43 AM EDT Kathrine Storey MD IMMUNOLOGY/SEROLOGY ORDERABLES Final Result Performing Organization Address [facility] Hospital/[facility] Co de Phone Number [facility] [address] [place] [address], from Last 3 Months or Most Recently Relevant to Health Maintenance Insurance [facility] [place] MEDICAID MANAGED CARE [facility] Medical Help Program [facility] [employer] BLUE SHIELD AN[employer]M BLUE CROSS BLUE SHIELD [employer] BLUE CROSS BLUE SHIELD [employer] BLUE CROSS BLUE SHIELD [employer] SH[employer]ELD [employer]Data [facility] YouData [facility] YouData [facility] ANTHEM BLUE CROSS BLUE SHIELD BLUE CROSS BLUE SHIELD [facility] BLUE CROSS BLUE SHIELD Care Teams Wire Basket Maker Relationship Specialty Start Date End Date Chey Chin MD [address] [place] [address] PCP - General Family Medicine 01/30/20
--- OUTSIDE RECORDS SUMMARY | 2024-12-29 10:33 | XMS_ITS | Encounter Summary ---
Author Organization [facility] Address [address] [place] [address] Care Team Providers Care Data Security Analyst Name Role Phone Chey Chin MD Primary Care Provider [phone] Encounter Details Date Type Department Care Team (Late st Contact Info) Description 01/04/2015 [facility]hth Exam [facility] [place] [address], [address] [place] [address] Martha Tran MD [address] [place] [address] Social History Tobacco Use Types Packs/Day Years [...] documented as of this encounter Care Teams Data Security Analyst Relationship Specialty Start Date End Date Chey Chin MD [address] [place] [address] PCP - General Family Medicine 01/30/20 documented as of this encounter
--- OUTSIDE RECORDS SUMMARY | 2024-12-29 10:33 | XMS_ITS | Encounter Summary ---
Author Organization [facility] Address [address] [facility] [place] [address] Care Team Providers Care Tobacco Grader Name Role Phone Chey Chin MD Primary Care Provider Serene Alfred POULTRY OFFAL ICER Unavailable [phone] Chey Chin MD Unavailable [phone] Serene Alfred POULTRY OFFAL ICER Unavailable [phone] Encounter Details Date Type Department Care Team (Late st Contact Info) Description 06/10/2023 [facility] [address] [place] [address] Chey Chin MD [address] [place] [address] Social History Tobacco Use Types [...] How often do you attend chur or confucianist services? Never 02/09/2023 Do you belong to any clubs o r organizations such as christian groups, unions, fraternal or athletic groups, or [...] Recorded Patient Health Questionnaire-2 Score 0 02/09/2023 [facility] - [...] on filedocumented in this encounter Care Teams Tobacco Grader Relationship Specialty Start Date End Date Chey Chin MD [address] [facility] [place] [address] PCP - General Family Medicine 10/27/22 Chey Chin MD [address] [facility] [place] [address] PCP - [place] [employer] 03/13/2303/12 Serene Alfred NP [address] [facility] [place] [address] PCP - [place] 03/13/2404/12 Serene Alfred NP [address] [id number] Nurse Practitioner Family Medicine 10/27/22 documented as of this encounter
--- OUTSIDE RECORDS SUMMARY | 2024-12-29 10:33 | XMS_ITS | Encounter Summary ---
Author Organization [facility] Address [address] [place] [address] Care Team Providers Care Splicing Technician Name Role Phone Chey Chin MD Primary Care Provider [phone] Encounter Details Date Type Department Care Team (Late st Contact Info) Description 10/02/2014 Ophth Exam Eye [facility] [address], [address] [place] [address] Romulo Chappell MD [address] [place] [address] Social History Tobacco Use Types Packs/Day Years [...] documented as of this encounter Care Teams Splicing Technician Relationship Specialty Start Date End Date Chey Chin MD [address] [place] [address] PCP - General Family Medicine 01/30/20 documented as of this encounter
--- OUTSIDE RECORDS SUMMARY | 2024-12-29 10:33 | XMS_ITS | Encounter Summary ---
Author Organization [facility] Address [address] [place] [address] Care Team Providers Care Oil Spraying Machine Operator Name Role Phone Chey Chin MD Primary Care Provider [phone] Encounter Details Date Type Department Care Team (Latest Contact Info) Description 06/06/2015 Documentation Only [facility] [place] [address] [place] [address] Connie Du, RN Sinus CT scheduled for Jun 08 at 2;15PM Social History Tobacco Use Types Packs/Day Years [...] as of this encounter Progress Notes * Connie Du - 06/06/2015 5:[address] scheduled for Jun 08 at 2;15PM documented in this encounter Plan of Treatment [...] documented as of this encounter Care Teams Oil Spraying Machine Operator Relationship Specialty Start Date End Date Chey Chin MD [address] [place] [address] PCP - General Family Medicine 01/30/20 documented as of this encounter
--- OUTSIDE RECORDS SUMMARY | 2024-12-29 10:33 | XMS_ITS | Encounter Summary ---
Author Organization [facility] Address [address] [place] [address] Care Team Providers Care Legal Transcriptionist Name Role Phone Chey Chin MD Primary Care Provider [phone] Encounter Details Date Type Department Care Team (Late st Contact Info) Description 01/30/2015 Ophth Exam [facility] [address], [address] [place] [address] [place] Bran MD [address] [place] [address] Social History Tobacco Use Types Packs/Day Years [...] documented as of this encounter Care Teams Legal Transcriptionist Relationship Specialty Start Date End Date Chey Chin MD [address] [place] [address] PCP - General Family Medicine 01/30/20 documented as of this encounter
--- OUTSIDE RECORDS SUMMARY | 2024-12-29 10:36 | XMS_ITS | CCD ---
Author Organization [facility] Care Team Providers Care Ceiling Cleaner Name Role Phone Otilia Sinclair Primary Care [...] Unavailable MISC, DR HARRISON Attending Unavailable MISC, DOCTOR Attending Unavailable MAHESH, DR BARRAGAN Primary Care Unavailable MISC, DR HARRISON Admitting Unavailable MISC, DR HARRISON Consulting Unavailable Chey Aragon MD Primary Care Provider Chey Aragon MD Primary Care Provider [phone] Unavailable Primary Care Provider UnavailChey Meek MD Primary Care Provider Tima RANCH HAND SUPERVISOR, Serene A Unavailable Chey Aragon MD Unavailable [phone] ALFREDO DUONG Referring Unavailable CHEY ARAGON Primary Care Unavailable RUCHI CARMONA Attending Unavailable ALFREDO DUONG Referring Unavailable CHEY ARAGON Primary Care Unavailable ALFREDO DUONG Referring Unavailable CHEY ARAGON Primary Care Unavailable ALFREDO DUONG Referring Unavailable CHEY ARAGON Primary Care Unavailable SHANTELL Duong Attending Provider Alfredo Duong Attending Unavailable Alfredo Duong Admitting Unavailable Chey Aragon MD Unavailable Jaxon BROCK-PC, Naima Campbell Primary Care CHEY Anton Primary Care Unavailable ROSS MAGALLON Attending Unavailable CHEY ARAGON Primary Care Unavailable [facility] Referring Un available ZHOU LEE Attending Unavailable CHEY ARAGON Primary Care Unavailable ZHOU [...] Ventura Attending Unavailab SERENE Nichols Referring Unavailab SERENE Nichols Attending Unavailab ALFREDO Swain Attending Unavailable TIMA, SERENE Ventura Attending Unavailab SERENE Nichols Attending Unavailab Chey Sanchez MD Primary Care Prov ider Chey Pillai MD Primary Care Pr ovider CLIFFORD RODAS Referring Unavailable CHEY PILLAI Primary Care Un available MILIND FITCH Referring Unavailable TU DALTON Attending Unavailable MILIND FITCH Referring Unavailable DARI WALTERS Attending Unavailable MILIND FITCH Attending Unavailable SELF, SELF Referring Unavailable SELF, SELF Referring Unavailable MILIND FITCH Attending Unavailable CLIFFORD RODAS Attending Unavailable MILIND FITCH Referring Unavailable CHEY PILLAI Primary Care Unav ailable KALADY, CLIFFORD F Referring Unavailable [facility], [facility] Unav ailable KALADY, CLIFFORD F Attending Unavailable YVETTE MAR Attending Unavailable [facility]MAHESH, [facility] Unav ailable [facility]ESH, [facility] Referring Unav ailable WINKLE, MILIND Attending Unavailable SELF, SELF Referring Unavailable [facility]MAHESH, [facility] Unav ailable WINKLE, MILIND Referring Unavailable [facility]ADE[facility]MAHESH, [facility] Unav ailable KALADY, CLIFFORD F Attending Unavailable KALADY, CLIFFORD F Referring Unavailable [facility]MA[facility]ESH, [facility] Unav ailable KALADY, CLIFFORD F Attending Unavailable WINKLE, MILIND Attending Unavailable SELF, SELF Referring Unavailable KALADY, CLIFFORD F Attending Unavailable WINKLE, MILIND Referring Unavailable KALADY, CLIFFORD F Admitting Unavailable [facility]MA[facility]ESH, [facility] Unav ailable KALADY, CLIFFORD F Admitting Unavailable WINKLE, MILIND Referring Unavailable [facility]ESH, [facility] Unav ailable KALADY, CLIFFORD Joseph Attending Unavailable Allergies Allergy Classification Reported Allergen(s) Allergy Type Date of Onset Reaction(s) Facility (20 sources) cefdinir; Translations: [CEFDINIR] Drug Allergy 09-11-19 12 Rash, Anaphylaxis [facility] (4 sources) Sulfamethoxazole / Trimethoprim; Translations: [Bactrim] Drug Allergy 09-11-19 12 Anaphylaxis [facility] (1 source) cefdinir Drug Allergy 09-10-19 16 [facility] (1 source) inFLIXimab Drug Allergy 09-10-19 16 [facility] (1 source) Pentamidine Drug Allergy 07-08-19 21 [facility] (1 source) Vancomycin Drug Allergy 09-10-19 16 [facility] (20 sources) inFLIXimab; Translations: [INFLIXIMAB] Drug Allergy 01-31-20 15 Other (See Comments) [facility] (20 sources) Pentamidine; Translations: [PENTAMIDINE] Drug Allergy 12-31-19 20 Headache [facility] Work Phone: (20 sources) Sulfonamides (Antibiotic); Translations: [SULFA (SULFONAMIDE ANTIBIOTICS)] Propensity to adverse reactions to drug 05-24-19 15 Rash [facility] (20 sources) Vancomycin; Translations: [VANCOMYCIN ANALOGUES] Drug Allergy 08-09-19 15 Magdalene Syndrome [facility] (20 sources) cefdinir Drug Allergy 09-11-19 12 Anaphylaxis, Rash [facility] (20 sources) inFLIXimab Drug Allergy 01-31-20 15 Other [facility] (20 sources) Pentamidine Drug Allergy 12-31-19 20 Headache, Headaches [facility] (20 sources) Sulfamethoxazole / Trimethoprim; Translations: [SULFAMETHOXAZOLE-T RIMETHOPRIM] Drug Allergy 09-11-19 12 Anaphylaxis, Rash [facility] Medications Current Medications Medication Drug Class(es) [...] mg/mL Conc Inject into IV. 0 Active [id number] 200 actuat albuterol 0.09 mg/actuat metered dose [...] 09/26/2025 Active azithromycin 250 mg oral tablet (5 sources) Macrolide Antimicrobial Start: 09-26-2024 azithromycin (Zithromax) [...] with riTUXimab 500 MG/50ML solution 375 mg/m2 (13 sources) dextrose 5 % pranav ution 500 [...] tablet Indications: Anemia during in third trimester ([facility]) Take 1 tablet (325 mg) by mouth in the morning and 1 tablet (325 mg) before bedtime. Do not crush, chew, or split.. 60 tablet 3 06/24/2023 Active Start: 06-24-2023 take 1 tablet by margarita twice daily ferrous sulfate (FE TABS 325) [...] 03/22/2024 03/27/2024 Active Lidocaine viscous-Alum & Mag Alrfksbip-Ywbiwz-wq phenhydrAMINE oral mouthwash (4 sources) Start: 10-10-2024 apply 15 mL topically every six hours as needed Lidocaine viscous-Alum & Mag Hkuuoisfc-Oliatq-z iphenhydrAMINE oral mouthwash Swish and spit 15 mL every 6 hours as needed. 240 mL 1 10/10/2024 Active loratadine 10 mg oral tablet (20 sources) take 1 tablet by mouth once daily loratadine 10 mg tablet Take 1 tablet by mouth once daily. Active Multiple Vitamins-Minerals (THERAPEUTIC MULTIVITAMIN-MINERA LS) tablet (3 sources) take 1 tablet by mouth once daily Multiple Vitamins-Minerals (THERAPEUTIC MULTIVITAMIN-FAN ENGINE ENGINEER ALS) tablet Take 1 tablet by [...] morning. 0 Active Vit-Fe Fumarate-FA ( PO) (11 sources) Vit-Fe Fumarate-FA ( PO) Take by mouth. Active Vit-Fe Fumarate-FA ( PO) Take by mouth. 0 Active Risankizumab-rzaa (Skyrizi) 360 MG/2.4ML Solution Cartridge (5 sources) Start: 09-07-2024 Risankizumab-r zaa (Skyrizi) 360 MG/2.4ML Solution Cartridge Indications: Crohn's disease of both small and large intestine with complication Inject 360 mg under the skin every 56 days. 2.4 mL 6 09/07/2024 Active risankizumab-rzaa (Skyrizi) 600 MG/10ML Solution (5 sources) Start: 09-12-2024 risankizumab-r zaa (Skyrizi) 600 MG/10ML Solution Indications: Crohn's disease of both small and large intestine with complication 600 mg by Intravenous route every 28 days for 3 doses. Infuse Skyrizi 600mg every 4 weeks x 3 doses. No premeds. Rate and dilution per edger runner package insert or per pharmacist discretion. Infusion [...] doses. No premeds. Rate and dilution per edger runner package insert or per pharmacist discretion. Infusion reaction medications per pharmacy or infusion suite standard. 10 mL 2 09/12/2024 11/08/2024 Active Risankizumab-rzaa (Skyrizi) 600 MG/10ML solution (3 sources) Start: 09-12-2024 End: 11-08-2024 Risankizumab-rzaa (Skyrizi) 600 MG/10ML solution Infuse 600 mg into a venous catheter every 28 (twenty-eight) days 09/12/2024 11/08/2024 Active riTUXimab (20 sources) [id number] Cytolytic Antibody End: 08-06-2023 riTUXimab (Rituxan) 100 [...] Start: 03-20-2022 take 1 dose nasal ro davion twice daily, then take 1 dose nasal route twice daily sodium chloride, sodium bicarb-nasal rinse squeeze bottle with packet (Neilmed Sinus) Place 1 Packet in each nostril twice daily. Mix 1 packet as directed on package and use to rinse sinuses two times daily. 100 Each 03/20/2022 Active Start: 03-20-2022 take 1 dose nasal ro davion twice daily, then take 1 dose nasal [...] Active zinc gluconate 50 mg oral tablet (4 sources) Start: take 1 tablet by mouth [...] bisacodyl 5 mg delayed release oral tablet (2 sources) Stimulant Laxative Start: 12-26-2024 End: 12-26-2024 bisacodyl [...] 1127, Other metroNIDAZOLE 500 mg oral tablet (2 sources) Nitroimidazole Antimicrobial Start: 12-26-2024 End: 12-26-2024 metroNIDAZOLE 500 MG tablet Indications: Anorectal stricture Take 2 tablets (1000 mg) at 1pm, 2pm, and 9pm the day before your procedure. 6 tablet 12/26/2024 12/26/2024 Discontinued (Error) neomycin sulfate 500 mg oral tablet (2 sources) Aminoglycoside Antibacterial Start: 12-26-2024 End: 12-26-2024 Neomycin [...] OFRAN) tablet 4 mg polyethylene glycol 3350 [id number] mg powder for oral solution (2 sources) Osmotic Laxative Start: 12-26-2024 End: 12-26-2024 Polyethylene [...] organisms] 09-26-2024 Episodic Anal and rectal conditions (4 sources) Anorectal stricture; Translations: [Stenosis of anus [...] 4 Episodic Other inflammatory condition of skin (12 sources) Scalp psoriasis; 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, unspecified] Onset: [...] 6 09-14-2015 Episodic Deficiency and other anemia (8 sources) Iron deficiency anemia; Translations: [Iron deficiency [...] 2 Resolved: 4 08-18-2021 Episodic Mood disorders (4 sources) Mood disorders Onset: 5 Resolved: 5 [...] Long-term current use of systemic steroid; Translations: [skilled nursing (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 of systemic steroids] Onset: 6 Resolved: 9 08-13-2018 Episodic Other aftercare (20 sources) Drug therapy finding; Translations: [On rituximab therapy] Onset: 8 Resolved: 1 04-17-2020 Episodic Other aftercare (20 sources) skilled nursing current use of adalimumab therapy; Translations: [Adalimumab (Humira) long-term use] Onset: 3 12-18-2022 Episodic Other aftercare (20 sources) Long-term current use of rituximab; Translations: [Encounter for therapeutic drug level monitoring] Onset: 1 10-27-2022 Episodic Other aftercare (7 sources) Long-term current use of steroid; Translations: [Encounter for long-term (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 of steroids] Onset: 5 Resolved: 6 10-09-2015 Episodic Other aftercare (7 sources) 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; Translations: [Encounter for therapeutic drug [...] 7 05-22-2016 Episodic Other lower respiratory disease (8 sources) Nodule of lung; Translations: [Solitary pulmonary nodule] Onset: 4 09-01-2023 Episodic Other nervous system disorders (20 sources) Postoperative pain ; Translations: [Other acute postprocedural pain] Resolved: 7 04-27-2016 Episodic Other non-traumatic joint disorders (13 sources) Multiple joint pain; Translations: [Pain in [...] Resolved: 2 06-17-2021 Episodic Other skin disorders (20 sources) Hidradenitis suppurativa; Translations: [Hidradenitis suppurativa] Onset: [...] Test Name Value Interpretation Reference Range Facility [facility] 2024 Interpretation and review of laboratory results Abnormal [facility] TB IRON 22 ug/dL Low 50.0 - 170.0 ug/dL [facility] TB PERCENT IRON SATURATION 12.4 % [facility] TB TOTAL IRON BINDING CAPACITY 178 ug/dL Low 250.0 - 450.0 ug/dL [facility] ALL CBC WITH AUTO DIFFon BASOPHILS ABSOLUTE AUTO 0.1 [facility] Basophils/100 WBC (Bld) 0.5 % 0.2 - 2.0 % [facility] Eosinophils/100 WBC (Bld) 2 % 0.9 - 7.0 % [facility] Erythrocyte distribution width (RBC) [Ratio] 13.9 % 11.0 - 15.0 % [facility] Hematocrit (Bld) [Volume fraction] 36.6 % 36.0 - 48.0 % [facility] Hemoglobin (Bld) [Mass/Vol] 11.9 g/dL Low 12.0 - 16.0 g/dL [facility] IMMATURE GRANULOCYTES ABS AUTO 0.11 High [facility] Immature granulocytes/100 WBC (Bld) 1.1 % High 0.0 - 0.5 % [facility] Interpretation and review of laboratory results Abnormal [facility] LYMPHOCYTES ABSOLUTE AUTO 1.1 Low [facility] Lymphocytes/100 WBC (Bld) 11.1 % Low 20.5 - 60.0 % [facility] MCH (RBC) [Entitic mass] 28 pg 26.7 - 34.0 pg [facility] MCHC (RBC) [Mass/Vol] 32.5 g/dL 29.9 - 35.2 g/dL [facility] MCV (RBC) [Entitic vol] 86.1 fL 81.0 - 99.0 fL [facility] MONOCYTES ABSOLUTE AUTO 0.9 High [facility] Monocytes/100 WBC (Bld) 8.6 % 1.7 - 12.0 % [facility] NEUTROPHILS ABSOLUTE AUTO 7.7 High [facility] Neutrophils/100 WBC (Bld) 76.7 % High 43.0 - 75.0 % [facility] Platelet mean volume (Bld) [Entitic vol] 10.3 fL 9.5 - 13.5 fL [facility] EO # 0.2 [facility] PLT 257 [facility] RBC 4.25 [facility] WBC 10 [facility] BETA HCG, URINE (POC DEVICE) on 11-02-2024 Beta HCG ( test) Ql (U) Negative Negative [facility] Interpretation and review of laboratory results Normal [facility] Test performed at address of the patient encounter. [facility] Beta HCG ( test) Ql (U) Negative Negative [facility] Interpretation and review of laboratory results Normal [facility] Test performed at address of the patient encounter. [facility] CONTINUOUS CARDIAC MONITORIN G STRIPon 11-02-2024 [facility] CONTINUOUS CARDIAC MONITORIN G STRIPOrdered By: Unassigned Pacs on 11-02-2024 [facility] Work Phone: SURG PATH REQUESTon 11-03-[address] [facility] Comment on above: Result Comment: Surg ical Pathology Report Case: [id number] Authorizing Provider: Clifford Rodas MD Collected: 11/02/2024 05:03 PM Ordering Location: [facility] PERIOP Received: 11/02/2024 05:17 PM Pathologist: Lavern Restrepo MD Specimen: SURG PATH, Anal canal biopsies Performed By: #### F AUNG WATKINS B12Margareth #### [facility] (DEFAULT) [address] [place] [address] Clinical History Crohn's disease of ot small and large intestine with complication. Medical History: Crohn's colitis. 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 Asthma. Pulmonary nodules. Iron deficiency anemia. Hidradenitis suppurativa. Pulmonary nodule. Migraine. Normal [facility] Comment on above: Performed By: #### F AUNG WATKINS, B12B #### [facility] (DEFAULT) [address] [place] [address] Diagnosis Comments Normal [facility] Comment on above: Result Comment: Bloc k Stain Result A1-2 CMV Negative A1-3 DOG-1 Negative A1-4 CD117 (c-kit) Negative A1-5 S-100 Negative A1-6 CAM 5.2 Negative A1-7 Smooth Muscle Actin Negative Performed By: #### F ROLAND, AUNG, B12B #### [facility] (DEFAULT) [address] [place] [address] Gross Description Normal [facility] Comment on above: Result Comment: The specimen is received in one properly labeled container with the patient's name and accession number. A. The specimen is designated anal canal biopsies and consists of two fragments of ugalde-pink soft tissue, up to 0.2-0.3 cm in greatest dimension. TE 1 Lab Use Only: JobID [id number] Grosser for this case was: Shari Machuca Performed By: #### F AUNG WATKINS B12B #### [facility] (DEFAULT) [address] [place] [address] Microscopic Description Normal [facility] Comment on above: Result Comment: A mi croscopic examination was performed. All controls show appropriate reactivity. All immunohistochemistry (IHC), in situ hybridization (MARCELLE), and histochemical tests were developed by and are performed at the [facility] Clinical Laboratory, Histology and IHC Lab, [address] [place] [address]. All Immunofluorescent (IF) tests were developed by and are performed at the [facility] Laboratory, Renal Division, [address] [place] [address]. All tests reported here, except for PD-L1, have not been cleared by or approved by the [place] Food and Drug Administration (FDA). The laboratory is regulated under CLIA as qualified to perform high-complexity testing. The tests are used for clinical purposes. They should not be regarded as investigational or for research. Performed By: #### F AUNG WATKINS B12Margareth #### [facility] (DEFAULT) [address] [place] [address] Pathologic Diagnosis [facility] Comment on above: Result Comment: A. A nal canal, biopsy: Negative for malignancy Polypoid inflamed granulation tissue with erosion and dilated / congested vessels Negative for granulomas No epithelial lining observed at 1118 EDT Performed By: #### F AUNG WATKINS B12B #### [facility] (DEFAULT) [address] [place] [address] Professional Interpretation Performed at: [facility] Comment on above: Result Comment: [facility] For Immediate Release to [facility]? Yes [address] [place] [address] Performed By: #### F AUNG WATKINS B12B #### [facility] (DEFAULT) [address] [place] [address] CT Abdomen and Pelvis Federico Wilkins 11-01-2024 EXAMINATION: CT ENTEROGRAPHY 10/26/2024 11:14 am [...] with luminal narrowing. Findings are suggestive of [id number] Crohn's disease. 4. Prominent asymmetric soft tissue in the right perineum compared to the left; however, no discrete abscess or fistula identified. 5. Left adnexal dermoid measuring 3.3 x 2.8 cm. 6. Mild splenomegaly. Interpreted by: Rubia Teague MD Signed by: Rubia Teague MD 10/31/24 Final result [facility] Radiology, Radiologi MD rosie - 11/01/2024 EXAMINATION: [...] both small and large intestine with complication ([facility]) TECHNOLOGIST PROVIDED HISTORY: STAT Creatinine [...] with luminal narrowing. Findings are suggestive of [id number] Crohn's disease. 4. Prominent asymmetric soft tissue in the right perineum compared to the left; however, no discrete abscess or fistula identified. 5. Left adnexal dermoid measuring 3.3 x 2.8 cm. 6. Mild splenomegaly. Interpreted by: Rubia Teague MD Signed by: Rubia Teague MD 10/31/24 Final result [facility] CT Abdomen and Pelvis W cont rast IVOrdered By: Radiologist Radiology on 11-01-2024 [facility] Work Phone: CT Abdomen and Pelvis W cont rast Claudette 10-31-2024 Radiology Study observation (narrative) [facility] CT ENTEROGRAPHY W WO CONTRAS Ton 10-31-2024 [...] both small and large intestine with complication ([facility]) TECHNOLOGIST PROVIDED HISTORY: STAT Creatinine [...] with luminal narrowing. Findings are suggestive of [id number] Crohn's disease. 4. Prominent asymmetric soft tissue in the right perineum compared to the left; however, no discrete abscess or fistula identified. 5. Left adnexal dermoid measuring 3.3 x 2.8 cm. 6. Mild splenomegaly. Interpreted by: Rubia Teague MD Signed by: Rubia Teague MD 10/31/24 Final result [facility] XR CHEST 2 VIEWSon 5 XR CHEST 2 VIEWS XR CHEST 2 [...] High NINF - 10.00 mg/L [facility] CRP [Mass/Vol] 27.70 mg/L High <10.00 [facility] Comment on above: Performed By: #### I RBC, CMPN, CRP #### [facility] (DEFAULT) [address] [place] [address] CBC,PLATELETSon 09-22-2024 Erythrocyte distribution width (RBC) [Ratio] 13.1 % 10.8 - 14.9 % [facility] Hematocrit (Bld) [Volume fraction] 37.1 % 34.9 - 44.3 % [facility] Hemoglobin (Bld) [Mass/Vol] 11.6 g/dL 11.4 - 15.2 g/dL [facility] Interpretation and review of laboratory results Abnormal [facility] MCH (RBC) [Entitic mass] 26.8 pg 25.9 - 33.9 pg [facility] MCHC (RBC) [Mass/Vol] 31.3 g/dL Low 31.4 - 35.9 g/dL [facility] MCV (RBC) [Entitic vol] 85.7 fL 79.6 - 97.7 fL [facility] Platelet mean volume (Bld) [Entitic vol] 10.1 fL 8.5 - 12.2 fL [facility] Platelets (Bld) [#/Vol] 296 10*3/uL 150 - 393 K/uL [facility] RBC (Bld) [#/Vol] 4.33 10*6/uL [facility] WBC (Bld) [#/Vol] 11.3 10*3/uL High 3.99 - 11. 19 K/uL [facility] Hematocrit (Bld) [Volume fraction] 37.1 % Normal 34.9-44.3 [facility] Comment on above: Performed By: #### H [facility] #### [facility] (DEFAULT) [address] [address] Hemoglobin (Bld) [Mass/Vol] 11.6 g/dL Normal 11.4-15.2 [facility] Comment on above: Performed By: #### H [facility] #### [facility] (DEFAULT) [address] [address] MCV (RBC) [Entitic vol] 85.7 fL Normal 79.6-97.7 [facility] Comment on above: Performed By: #### [facility] #### [facility] (DEFAULT) [address] [address] Mean Cell Hgb 26.8 pg Normal 25.9-33.9 [facility] Comment on above: Performed By: #### H EMOGC #### [facility] (DEFAULT) [address] [address] Mean Cell Hgb Conc 31.3 g/dL Low 31.4-35.9 [facility] Comment on above: Performed By: #### H EMOGC #### [facility] (DEFAULT) [address] [place] [address] Platelet mean volume (Bld) [Entitic vol] 10.1 fL Normal 8.5-12.2 [facility] Comment on above: Performed By: #### H EMOGC #### [facility] (DEFAULT) [address] [place] [address] Platelets (Bld) [#/Vol] 296 10*3/uL Normal 150-393 [facility] Comment on above: Performed By: #### H EMOGC #### [facility] (DEFAULT) [address] [place] [address] RBC (Bld) [#/Vol] 4.33 10*6/uL Normal 3.91-5.04 [facility] Comment on above: Performed By: #### H EMOGC #### [facility] (DEFAULT) [address] [place] [address] RBC Distribution 13.1 % Normal 10.8-14.9 [facility] Comment on above: Performed By: #### H EMOGC #### [facility] (DEFAULT) [address] [place] [address] WBC (Bld) [#/Vol] 11.30 10*3/uL High 3.99-11.19 [facility] Comment on above: Performed By: #### H EMOGC #### [facility] (DEFAULT) [address] [place] [address] COMPREHENSIVE METABOLIC PANE Jeremias 09-22-2024 Albumin [Mass/Vol] 3.8 g/dL 3.5 - 5.0 g/dL [facility] ALP [Catalytic activity/Vol] 64 U/L 32 - 126 U/L [facility] [facility] ALT [Catalytic activity/Vol] 6 U/L Low 9 - 48 U/L [facility] Anion gap [Moles/Vol] 14 mmol/L 7 - 17 mmol/L [facility] AST [Catalytic activity/Vol] 13 U/L 10 - 39 U/L [facility] Bilirubin [Mass/Vol] 0.5 mg/dL NINF - 1.5 mg/dL [facility] Calcium [Mass/Vol] 9.2 mg/dL 8.6 - 10. 5 mg/dL [facility] Chloride [Moles/Vol] 103 mmol/L 98 - 10 8 mmol/L [facility] CO2 [Moles/Vol] 26 mmol/L 21 - 31 mmol/L [facility] Creatinine [Mass/Vol] 0.73 mg/dL 0.50 - 1.20 mg/dL [facility] eGFR, CKD-EPI, Female - PINF [facility] Comment on above: Reported eGFR is bas ed on the CKD-EPI 2020 equation using creatinine, age, and sex. Glucose [Mass/Vol] 82 mg/dL 70 - 179 mg/dL [facility] Osmolality Calc [Osmolality] 289 [facility] Potassium [Moles/Vol] 4.2 mmol/L 3.5 - 5.0 mmol/L [facility] Protein [Mass/Vol] 5.5 g/dL Low 6.4 - 8.3 g/dL [facility] Sodium [Moles/Vol] 139 mmol/L 135 - 145 mmol/L [facility] Urea nitrogen [Mass/Vol] 10 mg/dL 7 - 25 mg/dL [facility] Urea nitrogen/Creatinine [Mass ratio] 14 mg/mg [facility] Albumin [Mass/Vol] 3.8 g/dL Normal 3.5-5.0 [facility] Comment on above: Performed By: #### I RBC, CMPN, CRP #### [facility] (DEFAULT) [address] [place] [address] ALP [Catalytic activity/Vol] 64 U/L Normal 32-126 [facility] Comment on above: Performed By: #### I RBC, CMPN, CRP #### [facility] (DEFAULT) [address] [place] [address] ALT [Catalytic activity/Vol] 6 U/L Low 9-48 [facility] Comment on above: Performed By: #### I RBC, CMPN, CRP #### [facility] (DEFAULT) [address] [place] [address] Anion gap [Moles/Vol] 14 mmol/L Normal 7-17 [facility] Comment on above: Performed By: #### I RBC, CMPN, CRP #### [facility] (DEFAULT) [address] [place] [address] AST [Catalytic activity/Vol] 13 U/L Normal 10-39 [facility] Comment on above: Performed By: #### I RBC, CMPN, CRP #### [facility] (DEFAULT) [address] [place] [address]82 Bilirubin [Mass/Vol] 0.5 mg/dL Normal <1.5 [facility] Comment on above: Performed By: #### I RBC, CMPN, CRP #### [facility] (DEFAULT) [address] [place] [address] Calcium [Mass/Vol] 9.2 mg/dL Normal 8.6-10.5 [facility] Comment on above: Performed By: #### I RBC, CMPN, CRP #### [facility] (DEFAULT) [address] [place] [address]993 Chloride [Moles/Vol] 103 mmol/L Normal 98-108 [facility] Comment on above: Performed By: #### I RBC, CMPN, CRP #### [facility] (DEFAULT) [address] [place] [address] CO2 [Moles/Vol] 26 mmol/L Normal 21-31 [facility] Comment on above: Performed By: #### I RBC, CMPN, CRP #### [facility] (DEFAULT) [address] [place] [address]124 Creatinine [Mass/Vol] 0.73 mg/dL Normal 0.50-1.20 [facility] Comment on above: Performed By: #### I RBC, CMPN, CRP #### [facility] (DEFAULT) [address] [place] [address] eGFR, CKD-EPI, Female > Normal >=60 [facility] Comment on above: Result Comment: Repo rted eGFR is based on the CKD-EPI 2020 equation using creatinine, age, and sex. Performed By: #### I RBC, CMPN, CRP #### [facility] (DEFAULT) [address] [place] [address] 37932 Glucose [Mass/Vol] 82 mg/dL Normal Nonfastin -179 mg/dL; Fastin-99 [facility] Comment on above: Performed By: #### I RBC, CMPN, CRP #### [facility] (DEFAULT) [address] [place] [address]777 Osmolality [Osmolality] 289 mosm/kg Normal 278-305 [facility] Comment on above: Performed By: #### I RBC, CMPN, CRP #### [facility] (DEFAULT) [address] [place] [address]160 Potassium [Moles/Vol] 4.2 mmol/L Normal 3.5-5.0 [facility] Comment on above: Performed By: #### I RBC, CMPN, CRP #### [facility] (DEFAULT) [address] [place] [address] Protein [Mass/Vol] 5.5 g/dL Low 6.4-8.3 [facility] Comment on above: Performed By: #### I RBC, CMPN, CRP #### [facility] (DEFAULT) [address] [place] [address] 00383 Sodium [Moles/Vol] 139 mmol/L Normal 135-145 [facility] Comment on above: Performed By: #### I RBC, CMPN, CRP #### [facility] (DEFAULT) [address] [place] [address]303 Urea nitrogen [Mass/Vol] 10 mg/dL Normal 7-25 [facility] Comment on above: Performed By: #### I RBC, CMPN, CRP #### [facility] (DEFAULT) [address] [place] [address] 19515 Urea nitrogen/Creatinine [Mass ratio] 14 mg/mg Normal [facility] Comment on above: Performed By: #### I RBC, CMPN, CRP #### [facility] (DEFAULT) [address] [place] [address] 97827 FERRITINon 09-22-2024 Ferritin [Mass/Vol] 197.1 ng/mL 7.3 - 27 0.7 ng/mL [facility] Interpretation and review of laboratory results Normal [facility] Ferritin [Mass/Vol] 197.1 ng/mL Normal 7.3-270.7 [facility] Comment on above: Performed By: #### F OLSB, FERIB, B12B #### [facility] (DEFAULT) [address] [place] [address] 23589 FOLATE, SERUMon 09-22-2024 Folate [Mass/Vol] 9.14 ng/mL 5.38 - PIN F ng/mL [facility] Interpretation and review of laboratory results Normal [facility] Folate 9.14 ng/mL Normal >5.38 [facility] Comment on above: Performed By: #### F OLSB, FERIB, B12B #### [facility] (DEFAULT) [address] [place] [address] 16262 IRON/IRON BINDING/TRANSFERRI Non 09-22-2024 Iron [Mass/Vol] 19 ug/dL Low [facility] Iron binding capacity [Mass/Vol] 205 Low [facility] Iron saturation [Mass fraction] 9 % Low 20 - 55 % [facility] Transferrin [Mass/Vol] 164 mg/dL Low 200 - 400 mg/dL [facility] Iron [Mass/Vol] 19 ug/dL Low 40-174 [facility] Comment on above: Performed By: #### I RBC, CMPN, CRP #### [facility] (DEFAULT) [address] [place] [address] 00514 Iron Saturation 9 % Low 20-55 [facility] Comment on above: Performed By: #### I RBC, CMPN, CRP #### [facility] (DEFAULT) [address] [place] [address] 03817 Total Iron Binding Capacity 205 mcg/dL Low 250-425 [facility] Comment on above: Performed By: #### I RBC, CMPN, CRP #### [facility] (DEFAULT) [address] [place] [address]156 Transferrin [Mass/Vol] 164 mg/dL Low 200-400 [facility] Comment on above: Performed By: #### I RBC, CMPN, CRP #### [facility] (DEFAULT) [address] [place] [address] 11435 METHYLMALONIC ACIDon 025 METHYLMALONIC ACID 0.11 nmol/mL Normal <=0.40 [facility] Comment on above: Result Comment: ADDITIONAL INFORMATION This test was developed and its performance characteristics determined by [facility] in a manner consistent with CLIA requirements. This test has not been cleared or approved by the U.S. Food and Drug Administration. Test Performed by: [facility] [place] [address] Inventory Control Associate: Wyatt England Ph.D.; CLIA# [id number] Performed By: #### Y MMA #### [facility] (DEFAULT) [address] [place] [address] 34944 No Panel Informationon 09-22 Interpretation and review of laboratory results Abnormal [facility] SEDIMENTATION RATE, AUTOMATE Don 09-22-2024 ESR (Bld) [Velocity] 20 mm/h High NINF [facility] Interpretation and review of laboratory results Abnormal [facility] ESR Westergren 20 mm/hr High <20 [facility] Comment on above: Performed By: #### F AUNG WATKINS B12B #### [facility] (DEFAULT) [address] [address] VITAMIN B12on 09-22-2024 Cobalamin (Vitamin B12) [Mass/Vol] 602 pg/mL 211 - 911 pg/mL [facility] Comment on above: Testing of Methylmal onic Acid and Intrinsic Factor Blocking Antibody are recommended if clinical suspicion for pernicious anemia due to B12 deficiency is high for patients with intermediate B12 levels (211 to 400 pg/mL) to rule out spurious heterophile antibodies. Interpretation and review of laboratory results Normal [facility] Cobalamin (Vitamin B12) [Mass/Vol] 602 pg/mL Normal 211-911 [facility] Comment on above: Result Comment: Test ing of Methylmalonic Acid and Intrinsic Factor Blocking Antibody are recommended if clinical suspicion for pernicious anemia due to B12 deficiency is high for patients with intermediate B12 levels (211 to 400 pg/mL) to rule out spurious heterophile antibodies. Performed By: #### F AUNG WATKINS, B12B #### [facility] (DEFAULT) [address] [address] VITAMIN D (25-HYDROXY,TOTAL) on 09-22-2024 25-OH Vitamin D Total 33.2 ng/mL Normal 30.0-100.0 [facility] Comment on above: Order Comment: Vitam in D values have been shown to be falsely decreased in lipemic samples and should be interpreted with caution. Result Comment: <10 Deficiency 10-29 Insufficiency 30-100 Optimal Level >100 Possible Toxicity Performed By: #### D 25OH #### [facility] (DEFAULT) [address] [address] ZINC, SERUMon 09-22-2024 ZINC, SERUM 44 mcg/dL Low 60-106 [facility] Comment on above: Result Comment: ADDITIONAL INFORMATION This test was developed and its performance characteristics determined by [facility] in a manner consistent with CLIA requirements. This test has not been cleared or approved by the U.S. Food and Drug Administration. Test Performed by: [facility] [address] [place] [address] Inventory Control Associate: Wyatt England Ph.D.; CLIA# [id number] Performed By: #### Y ZINC #### [facility] ([facility]) [address] [place] [address] DIAGNOSTIC COLONOSCOPYon [facility] Patient Name: Kings Hatfield Procedure Date: 09/06/2024 1:37 PM Date of : 2000 Admit Type: Outpatient Age: 23 Room: Endo 2 Gender: Female Note Status: Finalized Attending MD: Tu Dalton MD, [id number] Procedure: Colonoscopy Attending Participation: I personally performed the entire procedure. Indications: High risk colon cancer surveillance: Crohn's colitis of 8 (or more) years duration with one-third (or more) of the colon involved Providers: Tu Dalton MD (Doctor), Nadia Rivera, RN (Nurse), Rajendra Ricardo RN (Nurse) Referring MD: Milind Fitch, CUTTING AND PRINTING MACHINE OPERATOR-BASKET MAKER Complications: No immediate complications. Estimated blood loss: [...] oxygen saturations were monitored continuously. The Colonscope ([id number]) was introduced through the anus and advanced to the rectum. The patient tolerated the procedure well. The colonoscopy was performed with difficulty due to rectal stricture. Successful completion of the procedure was aided by withdrawing the scope and replacing with the UltraSlim scope. The quality of the bowel preparation was inadequate. The [id number]- [id number] was introduced through the anus with [...] content not included)... LAB, [facility] Radiology Study observation (narrative) [facility] HCG ( test) Ql (U)o n 09-06-2024 Beta HCG ( test) Ql (U) Negative [facility] Interpretation and review of laboratory results Normal [facility] SURG PATH REQUESTon 09-07-19 Case Report Normal [facility] Comment on above: Result Comment: Surg ical Pathology Report Case: [id number] Authorizing Provider: Tu Dalton MD Collected: 09/06/2024 02:02 PM Ordering Location: [facility]oscopy Outpatient Care Received: 09/06/2024 02:11 PM [place] [facility]ologist: Ric Lechuga MD Specimens: A) - TISSUE, transverse colon bx hx Crohn's disease evaluate disease activity (large forceps) B) - TISSUE, left colon bx hx Crohn's disease evaluate disease activity (large forceps) C) - TISSUE, rectal bx hx Crohn's disease evaluate disease activity (large forceps) Performed By: #### F AUNG WATKINS, B12B #### [facility] (DEFAULT) [address] [place] [address] Clinical History Hx Crohn's disease. Evaluate disease activity. Associated Diagnosis: Crohn's disease of both small and large intestine with complication [K50.819]. Medical History: Crohn's colitis. 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 Pulmonary nodules. Iron deficiency anemia. Hydradenitis suppurativa. Pulmonary nodule. Normal [facility] Comment on above: Performed By: #### F ROLAND, AUNG, B12B #### [facility] (DEFAULT) [address] [place] [address] Diagnosis Comments The findings are compatible with patient's history of treated Chron's disease. Normal [facility] Comment on above: Performed By: #### F ROLAND, AUNG, B12B #### [facility] (DEFAULT) [address] [address] Gross Description Normal [facility] Comment on above: Result Comment: The [...] dimension. TE 1 Lab Use Only: JobID [id number] Grosser for this case was: Alanna Eulalia Performed By: #### F AUNG WATKINS B12B #### [facility] (DEFAULT) [address] [place] [address] Microscopic Description A microscopic examination was performed. [facility] Comment on above: Performed By: #### F AUNG WATKINS B12B #### [facility] (DEFAULT) [address] [place] [address] Pathologic Diagnosis [facility] Comment on above: Result Comment: A. C [...] at 0008 EDT Performed By: #### F AUNG WATKINS B12B #### [facility] (DEFAULT) [address] [place] [address] Professional Interpretation Performed at: [facility] Comment on above: Result Comment: [facility] For Immediate Release [facility] Yes [address] [place] [address] Performed By: #### F AUNG WATKINS B12B #### [facility] (DEFAULT) [address] [place] [address] CT HEAD WO IV CONTRASTon CT HEAD [...] Not Available Office Visiton 07-13-2024 Follow-up visit [id number] AlysiaKings 2000 F Date Provider Department Center 07/13/2024 [facility] RHEUM Gary Heal Family History Problem Relation Age of Onset Stroke Mother Hypertension Father Arthritis Maternal Grandmother Family Status - Relation Status Age at Mother Father Maternal Grandmother Level of Service:23075 [place] OFFICE/OUTPATIENT NEW MODERATE MDM 45 MINUTES (GC) Reason for Visit and Comments: New Patient [632] Normal [facility] C. DIFFICILE PCRon C. DIFFICILE PCR Negative [facility] ALL CBC WITH AUTO DIFFon BASOPHILS ABSOLUTE AUTO 0 [facility] Basophils/100 WBC (Bld) 0.4 % 0.2 - 2.0 % [facility] Eosinophils/100 WBC (Bld) 2.4 % 0.9 - 7.0 % [facility] Erythrocyte distribution width (RBC) [Ratio] 12.6 % 11.0 - 15.0 % [facility] Hematocrit (Bld) [Volume fraction] 34.1 % Low 36.0 - 48.0 % [facility] Hemoglobin (Bld) [Mass/Vol] 11.3 g/dL Low 12.0 - 16.0 g/dL [facility] IMMATURE GRANULOCYTES ABS AUTO 0.03 [facility] Immature granulocytes/100 WBC (Bld) 0.3 % 0.0 - 0.5 % [facility] Interpretation and review of laboratory results Abnormal [facility] LYMPHOCYTES ABSOLUTE AUTO 1.1 Low [facility] Lymphocytes/100 WBC (Bld) 11.4 % Low 20.5 - 60.0 % [facility] MCH (RBC) [Entitic mass] 28.8 pg 26.7 - 34.0 pg [facility] MCHC (RBC) [Mass/Vol] 33.1 g/dL 29.9 - 35.2 g/dL [facility] MCV (RBC) [Entitic vol] 87 fL 81.0 - 99.0 fL [facility] MONOCYTES ABSOLUTE AUTO 0.7 [facility] Monocytes/100 WBC (Bld) 8 % 1.7 - 12.0 % [facility] NEUTROPHILS ABSOLUTE AUTO 7.2 High [facility] Neutrophils/100 WBC (Bld) 77.5 % High 43.0 - 75.0 % [facility] Platelet mean volume (Bld) [Entitic vol] 10.2 fL 9.5 - 13.5 fL [facility] TBH EO # 0.2 [facility]H PLT 245 [facility] TB RBC 3.92 Low [facility] WBC 9.3 [facility] Laboratory - Microbiology an d Antimicrobial susceptibilityon 05-17-2024 SARS-CoV-2 (COVID-19) RNA SHARLA+probe Ql (Unsp spec) Negative [facility] No Panel Informationon 05-17 FLU A Negative [facility] FLU B Negative [facility] Interpretation and review of laboratory results Normal [facility] HCG ( test) Qlon HCG ( test) Ql (U) Negative Negative [facility] Service comment 40 (Unsp spec) [Interp] First morning urine is the specimen of choice for urine test. False negative results can occur when random urine specimens are tested. A serum test is recommended if results do not correlate with the patient's clinical condition. [facility] POCT HCG, Urine Qualitativeo n 03-22-2024 Beta HCG ( test) Ql (U) Negative Normal NEG [facility] Comment: First morning urine is the specimen of choice for urine test. False negative results can occur when random urine specimens are tested. A serum test is recommended if results do not correlate with the patient's clinical condition. Normal [facility] CT Sinuses WO contraston 1.Decreased, but persistent mucosal thickening of the right maxillary sinus. 2.Minimal mucosal thickening of the right frontal and left maxillary sinus. 3.Postoperative changes from prior endoscopic sinus surgery. [facility] RADIOLOGY Yann Phillips MD - 02/29/2024 REASON [...] 3.Postoperative changes from prior endoscopic sinus surgery. [facility] Radiology Study observation (narrative) [facility] CT Sinuses WO contrastOrdere d By: Yann Phillips on 02-29-2024 [facility] Work Phone: Provider [place] 02-19-2024 Provider Orders [id number] [facility] 02-17-2024 Provider Orders [id number] [facility] DIAGNOSTIC COLONOSCOPYon [facility] Patient Name: [place] Procedure Date: 11/18/2023 10:04 AM Date of : 2000 Admit Type: Outpatient Age: 23 Room: Endo 3 Gender: Female Note Status: Finalized Attending MD: Sharath Lambert MD, [id number] Procedure: Colonoscopy Indications: Last colonoscopy: 2019, Disease [...] new. No other IBD symptoms. Referring MD: DANIKA Ortiz (Referring MD), Kye Solis MD (Referring MD) [...] oxygen saturations were monitored continuously. The Colonoscope ([id number]) was introduced through the anus and advanced to 10 cm into the ileum. The colonoscopy was performed without difficulty. The patient tolerated the procedure well. The quality of the bowel preparation was evaluated using the BBPS (Eagle Bowel Preparation Scale) with scores of: Right [...] content not included)... LAB, [facility] Radiology Study observation (narrative) [facility] HCG ( test) Ql (U)o n 11-18-2023 Beta HCG ( test) Ql (U) Negative [facility] Ferritinon 11-10-2023 Ferritin [Mass/Vol] 74 ng/mL Normal 4-233 [facility] CBCon 11-09-2023 Erythrocyte distribution width (RBC) [Ratio] 14.5 % High 10-14.1 [facility] Hematocrit (Bld) [Volume fraction] 37.7 % Normal 36.0-46.0 [facility] Hemoglobin (Bld) [Mass/Vol] 12.6 g/dL Normal 12.0-16.0 [facility] MCH (RBC) [Entitic mass] 29.2 pg Normal 26.0-34.0 [facility] MCHC 33.4 % Normal 31.0-37.0 [facility] MCV (RBC) [Entitic vol] 87.3 fL Normal 80.0-100.0 [facility] Platelet mean volume (Bld) [Entitic vol] 10.1 fL Normal 8.8-13.0 [facility] Comment on above: Result Comment: Perf ormed at [facility],[address], [place] [address] Platelets (Bld) [#/Vol] 204 10*3/uL Normal 142-508 [facility] RBC (Bld) [#/Vol] 4.3 10*6/uL Normal 4.0-5.2 [facility] WBC (Bld) [#/Vol] 10.5 10*3/uL Normal 4.5-11.0 [facility] Ironon 11-09-2023 Iron [Mass/Vol] 70 ug/dL Normal 65-175 [facility] Jeremias 09-03-2023 L Specimen: [id number] Received: 09/03/23 Status: RADHA Paz Num: [id number] Spec Type: Surgical Subm Dr: Jayme Hi Tissues: A Placenta - 3rd Trimester (Greater than 28 weeks) (PLACENTA) Procedures: HE/3, Gross/Micro L5 Age/ Patient Sex Location Account Attending Physician [place] [facility] [id number] Alfredo Duong APRN SPEC NUM: [id number] RECD: 09/03/23 STATUS: RADHA PAZ NUM: [id number] SHAY: 09/03/[address]: Jayme Hi ENTERED: 09/03/[address] [facility] [address]: Jalyon,Lab SPEC TYPE: Surgical DEPT: FOREIGN HUSAIN ORDERED: [...] lobulated cotyledons. No loose or adherent Specimen: [id number] Received: 09/03/23 Status: RAHDA Paz Num: [id number] Spec Type: Surgical Subm Dr: Jayme Hi Tissues: A Placenta - 3rd Trimester (Greater than 28 weeks) (PLACENTA) Procedures: HE/3, Gross/Micro L5 Patient: Kings Hatfield [id number] (Continued) Specimen: [id number] Received: 09/03/23 (Continued) Gross Description (Continued) Signed (signature on file) Rachel Saldivar MD 09/08/23 1715 Specimen: [id number] Received: 09/03/23 Status: RADHA Leeann Num: [id number] Spec Type: Surgical Subm Dr: Jayme Hi Tissues: A Placenta - 3rd Trimester (Greater than 28 weeks) (PLACENTA) Procedures: HE/3, Gross/Micro L5 Patient: Kings Hatfield [id number] (Continued) Specimen: [id number] Received: 09/03/23 (Continued) Gross Description (Continued) blood [...] A3: random mid-zonal section TW CPT Codes 59921 Specimen: [id number] Received: 09/03/23 Status: RADHA Paz Num: [id number] Spec Type: Surgical Subm Dr: Jayme Hi Tissues: A Placenta - 3rd Trimester (Greater than 28 weeks) (PLACENTA) Procedures: Kelsie SAENZ/Sushma L5 Patient: [place] [id number] (Continued) Signed (signature on file) Rachel Saldivar MD 09/08/23 2594 Normal [facility] POCT URINE DIPSTICK AUTOMATE DOrdered By: Xochitl Murphy on 08-06-2023 Amorphous sediment LM Ql (Urine sed) [facility] Appearance (U) slightly cloudy [facility] Bacteria LM Ql (Urine sed) [facility] Bilirubin Ql (U) Negative [facility] Casts LM.LPF (Urine sed) [#/Area] [facility] Color (U) yellow [facility] Crystals LM Nom (Urine sed) [facility] Epithelial cells.squamous LM.HPF (Urine sed) [#/Area] [facility] Flow cytometry specialist review Trevin (Unsp spec) [Interp] [facility] Glucose Auto test strip (U) [Mass/Vol] Negative mg/dL [facility] Interpretation and review of laboratory results Abnormal [facility] Ketones [Mass/Vol] Negative mg/dL [facility] Leukocyte esterase Qn (U) [facility] Leukocyte esterase Test strip Ql (U) Negative [facility] Microscopic observation Gram stain Nom (Bronch spec) [facility] Nitrite Ql (U) Negative [facility] pH (U) 7.5 [pH] Abnormal 5 - 7 [facility] Protein Ql (U) Negative mg/dL [facility] RBC LM.HPF (Urine sed) [#/Area] [facility] RBC Ql (U) Negative [facility] Specific gravity (U) [Rel density] 1.015 1.001 - 1.035 [facility] Transitional cells LM Ql (Urine sed) [facility] Urobilinogen Qn (U) 0.2 [facility] WBC LM.HPF (Urine sed) [#/Area] [facility] No Panel Informationon 05-26 Rubia Hernandez NP 05/26/2023 5:53 PM Ear Cerumen Removal Date/Time: 05/26/2023 5:46 PM Performed by: Rubia Hernandez NP Authorized by: Rubia Hernandez NP Consent: Consent obtained: Verbal Consent given by: Patient Risks, benefits, and alternatives were discussed: yes Risks discussed: Incomplete removal, TM perforation and dizziness Alternatives discussed: No treatment [place] protocol: Patient identity confirmed: Verbally with patient Procedure details: Location: L ear and R ear Procedure type: irrigation Procedure outcomes: cerumen removed Post-procedure details: Inspection: TM intact Hearing quality: Normal Procedure completion: Tolerated well, no immediate complications [facility] Chlamydia/GC by PCR [place] abon 03-04-2023 Chlamydia Dna(Pcr) Not detected [facility] Gonorrhoeae Dna(Pcr) Not detected [facility] C REACTIVE PROTEINon 023 CRP High sensitivity method [Mass/Vol] 4.81 mg/L NINF - 10.00 mg/L [facility] Interpretation and review of laboratory results Normal [facility] CHEM 6 (LYTES, BUN CREA)on 04-27-2022 Anion gap [Moles/Vol] 12 mmol/L 7 - 17 mmol/L [facility] Chloride [Moles/Vol] 105 mmol/L 98 - 10 8 mmol/L [facility] CO2 [Moles/Vol] 25 mmol/L 21 - 31 mmol/L [facility] Creatinine [Mass/Vol] 0.48 mg/dL Low 0.50 - 1.20 mg/dL [facility] eGFR, CKD-EPI, Female - PINF [facility] Comment on above: Reported eGFR is bas ed on the CKD-EPI 2020 equation using creatinine, age, and sex. Potassium [Moles/Vol] 3.9 mmol/L 3.5 - 5.0 mmol/L [facility] Sodium [Moles/Vol] 138 mmol/L 135 - 145 mmol/L [facility] Urea nitrogen [Mass/Vol] 7 mg/dL 7 - 25 mg/dL [facility] Urea nitrogen/Creatinine [Mass ratio] 15 mg/mg [facility] Chronic hepatitis differenti ation between hepatitis B and C virus panelOrdered By: Maty Cook on 02-25-2023 HBV core IgG+IgM Ql (S) Negative Negative [facility] HBV surface Ab IA Ql (S) Negative Negative [facility] HBV surface Ag Ql (S) Negative Negative [facility] HCV Ab Ql (S) Negative Negative [facility] Interpretation and review of laboratory results Normal [facility] FOLATE, SERUMOrdered By: Alissa Chamorro on 02-25-2023 Folate [Mass/Vol] 38.76 ng/mL 5.38 - PIN F ng/mL [facility] Interpretation and review of laboratory results Normal [facility] HEPATIC FUNCTION PANELon Albumin [Mass/Vol] 4.0 g/dL 3.5 - 5.0 g/dL [facility] ALP [Catalytic activity/Vol] 42 U/L 32 - 126 U/L [facility] ALT [Catalytic activity/Vol] 5 U/L Low 9 - 48 U/L [facility] AST [Catalytic activity/Vol] 10 U/L 10 - 39 U/L [facility] Bilirubin [Mass/Vol] 0.5 mg/dL NINF - 1.5 mg/dL [facility] Bilirubin.direct [Mass/Vol] 0.1 mg/dL NINF - 0.3 mg/dL [facility] Protein [Mass/Vol] 6.0 g/dL Low 6.4 - 8.3 g/dL [facility] HIV 1&2 AB/AG Screen (P24 AG )on 02-25-2023 HIV 1&2 AB/AG Non-Reactive [facility] Hepatitis B surface antigeno n 02-25-2023 Hepatitis B Surface Antigen Non-Reactive [facility] No Panel Informationon 02-25 Interpretation and review of laboratory results Abnormal [facility] Syphilis Total(Unknown Syphi lis Status)on 02-25-2023 Syphilis Non-Reactive [facility] Type and screenon 02-25-2023 Abo/Rh(D) Positive [facility] VITAMIN B12on 02-25-2023 Cobalamin (Vitamin B12) [Mass/Vol] 421 pg/mL 211 - 911 pg/mL [facility] Comment on above: Testing of Methylmal onic Acid and Intrinsic Factor Blocking Antibody are recommended if clinical suspicion for pernicious anemia due to B12 deficiency is high for patients with intermediate B12 levels (211 to 400 pg/mL) to rule out spurious heterophile antibodies. Interpretation and review of laboratory results Normal [facility] XR Chest 2 Views*on 04-03-20 XR Chest 2 Views* FINDINGS: No acute cardiac or pulmonary disease is identified. No worrisome mass lesions or infiltrates are seen. No pulmonary edema or pneumothorax is present. Cardiac silhouette size is normal. Skeletal structures are normal. IMPRESSION: No acute cardiac or pulmonary disease Report reported and signed by Herbie Pace on 04/03/2022 1551 Normal [facility] XR Chest 2 Views*on 03-10-20 XR Chest 2 Views* FINDINGS: No acute cardiac or pulmonary disease is identified. No worrisome mass lesions or infiltrates are seen. No pulmonary edema or pneumothorax is present. Cardiac silhouette size is normal. Skeletal structures are normal. IMPRESSION: No focal infiltrates Report reported and signed by Herbie Pace on 03/10/2022 1220 Normal [facility] XR Chest 2 Views*on 12-07-19 XR [...] by Herbie Pace on 12/06/2021 1352 Normal [facility] XR Chest 2 Views*on 11-20-19 XR Chest 2 Views* FINDINGS: No acute cardiac or pulmonary disease is identified. No worrisome mass lesions or infiltrates are seen. No pulmonary edema or pneumothorax is present. Cardiac silhouette size is normal. Skeletal structures are normal. IMPRESSION: No acute cardiac or pulmonary disease Report reported and signed by Herbie Pace on 11/19/2021 1128 Normal [facility] Complete Blood Count with Au to Diffon 07-30-2021 Basophils (Bld) [#/Vol] 0.06 10*3/uL Normal 0.00-0.20 [facility] Comment on above: Performed By: #### C BCAD #### [facility] [address], [place] [id number] Basophils/100 WBC (Bld) 0.5 % Normal [facility] Comment on above: Performed By: #### C BCAD #### [facility] [address], [place] [id number] Eosinophils (Bld) [#/Vol] 0.35 10*3/uL Normal 0.02-0.50 [facility] Comment on above: Performed By: #### C BCAD #### [facility] [address], [place] [id number] Eosinophils/100 WBC (Bld) 2.8 % Normal [facility] Comment on above: Performed By: #### C BCAD #### [facility] [address], [place] [id number] Erythrocyte distribution width (RBC) [Ratio] 12.7 % Normal 11.0-15.0 [facility] Comment on above: Performed By: #### C BCAD #### [facility] [address], [place] [id number] Hematocrit (Bld) [Volume fraction] 37.5 % Normal 35.0-47.0 [facility] Comment on above: Performed By: #### C BCAD #### [facility] [address], [place] [id number] Hemoglobin (Bld) [Mass/Vol] 12.2 g/dL Normal 11.6-15.5 [facility] Comment on above: Performed By: #### C BCAD #### [facility] [address], [place] [id number] Lymphocytes (Bld) [#/Vol] 2.5 10*3/uL Normal 0.9-3.9 [facility] Comment on above: Performed By: #### C BCAD #### [facility] [address], [place] [id number] Lymphocytes/100 WBC (Bld) 19.8 % Normal [facility] Comment on above: Performed By: #### C BCAD #### [facility] [address], [place] [id number] MCH (RBC) [Entitic mass] 29.7 pg Normal 27.0-33.0 [facility] Comment on above: Performed By: #### C BCAD #### [facility] [address], [place] [id number] MCHC (RBC) [Mass/Vol] 32.5 g/dL Normal 32.0-36.0 [facility] Comment on above: Performed By: #### C BCAD #### [facility] [address], [place] [id number] MCV (RBC) [Entitic vol] 91 fL Normal 80-100 [facility] Comment on above: Performed By: #### C BCAD #### [facility] [address], [place] [id number] Monocytes (Bld) [#/Vol] 0.9 10*3/uL Normal 0.2-0.9 [facility] Comment on above: Performed By: #### C BCAD #### [facility] [address], [place] [id number] Monocytes/100 WBC (Bld) 7.2 % Normal [facility] Comment on above: Performed By: #### C BCAD #### [facility] [address], [place] [id number] Neutrophils (Bld) [#/Vol] 8.8 10*3/uL High 1.5-7.8 [facility] Comment on above: Performed By: #### C BCAD #### [facility] [address], [place] [id number] Neutrophils/100 WBC (Bld) 69.3 % Normal [facility] Comment on above: Performed By: #### C BCAD #### [facility] [address], [place] [id number] Platelet mean volume (Bld) [Entitic vol] 10.20 fL Normal 7.50-12.50 [place] Comment on above: Performed By: #### C BCAD #### [facility] [address], [place] [id number] Platelets (Bld) [#/Vol] 258 10*3/uL Normal 140-400 [facility] Comment on above: Performed By: #### C BCAD #### [facility] [address], [place] [id number] RBC (Bld) [#/Vol] 4.11 10*6/uL Normal 3.90-5.20 [facility] Comment on above: Performed By: #### C BCAD #### [facility] [address], [place] [id number] RDW-SD 41.4 fL Normal 37.0-50.0 [facility] Comment on above: Performed By: #### C BCAD #### [facility] [address], [place] [id number] WBC (Bld) [#/Vol] 12.7 10*3/uL High 3.8-11.0 [facility] Comment on above: Performed By: #### C BCAD #### [facility] [address], [place] [id number] IgG Subclasseson 07-12-2021 IgG subclass 1 300 mg/dL Normal 240-1118 [facility] Comment on above: Result Comment: (NOT E) REFERENCE INTERVAL: Immunoglobulin G Subclass 1 The total IgG (mg/dL) can be derived from the sum of the subclass IgG1, IgG2, IgG3, and IgG4 values. However, a confirmatory and more precise total IgG is available by the turbidimetric method of quantitation for total IgG. Refer to test Immunoglobulin G, Serum ([id number]). Access complete set of age- and/or gender-specific reference intervals for this test in the [facility] Test Directory ([employer]). Performed By: #### A IGGSB, APNAB1 #### [facility] [address] [place] [address] Inventory Control Associate: Cody Dye MD #### IFX, FLLS, IMMS, CDP, THYGLA #### [facility] [address] [place], [place] [id number] Inventory Control Associate: Jone Eller MD IgG subclass 2 193 mg/dL Normal 124-549 [facility] Comment on above: Result Comment: (NOT E) REFERENCE INTERVAL: Immunoglobulin G Subclass 2 Access complete set of age- and/or gender-specific reference intervals for this test in the [facility] Test Directory ([employer]). Performed By: #### A IGGSB, APNAB1 #### [facility] [address] [place] [address] Inventory Control Associate: Cody Dye MD #### IFX, FLLS, IMMS, CDP, THYGLA #### [address] [id number] Inventory Control Associate: Jone Eller MD IgG subclass 3 61 mg/dL Normal 21-134 [facility] Comment on above: Result Comment: (NOT E) REFERENCE INTERVAL: Immunoglobulin G Subclass 3 Access complete set of age- and/or gender-specific reference intervals for this test in the [facility] Test Directory ([employer]). Performed By: #### A IGGSB, APNAB1 #### [facility] [address] [place] [address] Inventory Control Associate: Cody Dye MD #### IFX, FLLS, IMMS, CDP, THYGLA #### [address] [id number] Inventory Control Associate: Jone Eller MD IgG subclass 4 3 mg/dL Normal 1-123 [facility] Comment on above: Result Comment: (NOT E) REFERENCE INTERVAL: Immunoglobulin G Subclass 4 Access complete set of age- and/or gender-specific reference intervals for this test in the [facility] Test Directory ([employer]). Performed by [facility], [address] [place] [id number] www.[employer], Ruthie Augustin MD, Lab. Director Performed By: #### A IGGSB, APNAB1 #### [facility] [address] [id number] Inventory Control Associate: Cody Dye MD #### IFX, FLLS, IMMS, CDP, THYGLA #### [facility] [address] [place] [address] Inventory Control Associate: Jone Eller MD Pneumococcal Ab, IgGon 07-12 S.pneum Interp See Note Normal [facility] Comment on above: Result Comment: (NOT [...] developed and its performance characteristics determined by [facility]. It has not been cleared or approved by the [place] Food and Drug Administration. This test was performed in a CLIA certified laboratory and is intended for clinical purposes. Performed By: [facility] [address] [place], [place] [id number] Mica Plate Layer Hand: Ruthie Augustin MD Performed By: #### A IGGSB, APNAB1 #### [address] [address] Inventory Control Associate: Cody Dye MD #### IFX, FLLS, IMMS, CDP, THYGLA #### [place] [id number] Inventory Control Associate: Jone Eller MD S.pneum type 1,IgG 0.11 ug/mL Normal [facility] Comment on above: Performed By: #### A IGGSB, APNAB1 #### [place] [address] Inventory Control Associate: Cody Dye MD #### IFX, FLLS, IMMS, CDP, THYGLA #### [place] [id number] Inventory Control Associate: Jone Eller MD S.pneum type 12F,IgG 0.14 ug/mL Normal [facility] Comment on above: Performed By: #### A IGGSB, APNAB1 #### [address] [id number] Inventory Control Associate: Cody Dye MD #### IFX, FLLS, IMMS, CDP, THYGLA #### [place] [address] Inventory Control Associate: Jone Eller MD S.pneum type 14,IgG 0.19 ug/mL Normal [facility] Comment on above: Performed By: #### A IGGSB, APNAB1 #### [address] [id number] Inventory Control Associate: Cody Dye MD #### IFX, FLLS, IMMS, CDP, THYGLA #### [address] [id number] Inventory Control Associate: Jone Eller MD S.pneum type 18C,IgG 6.82 ug/mL Normal [facility] Comment on above: Performed By: #### A IGGSB, APNAB1 #### [facility] [address] [place] [address] Inventory Control Associate: Cody Dye MD #### IFX, FLLS, IMMS, CDP, THYGLA #### [address] [id number] Inventory Control Associate: Jone Eller MD S.pneum type 19F,IgG 10.07 ug/mL Normal [facility] Comment on above: Performed By: #### A IGGSB, APNAB1 #### [address] [id number] Inventory Control Associate: Cody Dye MD #### IFX, FLLS, IMMS, CDP, THYGLA #### [address] [id number] Inventory Control Associate: Jone Eller MD S.pneum type 23F,IgG 2.17 ug/mL Normal [facility] Comment on above: Performed By: #### A IGGSB, APNAB1 #### [facility] [address] [place] [address] Inventory Control Associate: Cody Dye MD #### IFX, FLLS, IMMS, CDP, THYGLA #### [address] [id number] Inventory Control Associate: Jone Eller MD S.pneum type 3,IgG 0.92 ug/mL Normal [facility] Comment on above: Performed By: #### A IGGSB, APNAB1 #### [facility] [address] [place] [address] Inventory Control Associate: Cody Dye MD #### IFX, FLLS, IMMS, CDP, THYGLA #### [facility] [address] [place] [id number] Inventory Control Associate: Jone Eller MD S.pneum type 4,IgG 0.08 ug/mL Normal [facility] Comment on above: Performed By: #### A IGGSB, APNAB1 #### [facility] [address] [place] [address] Inventory Control Associate: Cody Dye MD #### IFX, FLLS, IMMS, CDP, THYGLA #### [facility] [address] [place] [id number] Inventory Control Associate: Jone Eller MD S.pneum type 5,IgG 3.04 ug/mL Normal [facility] Comment on above: Performed By: #### A IGGSB, APNAB1 #### [facility] [address] [place], [place] [id number] Inventory Control Associate: Cody Dye MD #### IFX, FLLS, IMMS, CDP, THYGLA #### [address] [id number] Inventory Control Associate: Jone Eller MD S.pneum type 6B,IgG 0.76 ug/mL Normal [facility] Comment on above: Performed By: #### A IGGSB, APNAB1 #### [facility] [address] [place], [place] [id number] Inventory Control Associate: Cody Dye MD #### IFX, FLLS, IMMS, CDP, THYGLA #### [facility] [address] [place] [id number] Inventory Control Associate: Jone Eller MD S.pneum type 7F,IgG 1.36 ug/mL Normal [facility] Comment on above: Performed By: #### A IGGSB, APNAB1 #### [facility] [address] [place] [address] Inventory Control Associate: Cody Dye MD #### IFX, FLLS, IMMS, CDP, THYGLA #### [address] [address] Inventory Control Associate: Jone Eller MD S.pneum type 8,IgG 0.40 ug/mL Normal [facility] Comment on above: Performed By: #### A IGGSB, APNAB1 #### [facility] [address] [place], [place] [id number] Inventory Control Associate: Cody Dye MD #### IFX, FLLS, IMMS, CDP, THYGLA #### [address] [address] Inventory Control Associate: Jone Eller MD S.pneum type 9N,IgG 0.54 ug/mL Normal [facility] Comment on above: Performed By: #### A IGGSB, APNAB1 #### [facility] [address] [place], [place] [id number] Inventory Control Associate: Cody Dye MD #### IFX, FLLS, IMMS, CDP, THYGLA #### [address] [id number] Inventory Control Associate: Jone Eller MD S.pneum type 9V,IgG 0.75 ug/mL Normal [facility] Comment on above: Performed By: #### A IGGSB, APNAB1 #### [facility] [address] [place], [place] [phone] Inventory Control Associate: Cody Dye MD #### IFX, FLLS, IMMS, CDP, THYGLA #### [facility] [address] [place] [address] Inventory Control Associate: Jone Eller MD Immunofixation,Bloodon 07-10 IFX - Interpret. IMMUNOFIXATION IS NEGATIVE FOR MONOCLONAL IMMUNOGLOBULIN. Normal [facility] Comment on above: Performed By: #### A IGGSB, APNAB1 #### [facility] [address] [place] [address] Inventory Control Associate: Cody Dye MD #### IFX, FLLS, IMMS, CDP, THYGLA #### [address] [address] Inventory Control Associate: Jone Eller MD Pathologist Review: ELECTRONICALLY YUNI TURNER M.D. [facility] Comment on above: Performed By: #### A IGGSB, APNAB1 #### [facility] [address] [place] [address] Inventory Control Associate: Cody Dye MD #### IFX, FLLS, IMMS, CDP, THYGLA #### [address] [address] Inventory Control Associate: Jone Eller MD Lymphocyte Subseton 07-11-19 22 Ab(CD3-,CD56+) 123 /uL Normal 90-600 [facility] Comment on above: Performed By: #### A IGGSB, APNAB1 #### [facility] [address] [place] [address] Inventory Control Associate: Cody Dye MD #### IFX, FLLS, IMMS, CDP, THYGLA #### [address] [address] Inventory Control Associate: Jone Eller MD Ab.T Help(CD3+,CD4+) 1652 /uL High 309-[address] [facility] Comment on above: Performed By: #### A IGGSB, APNAB1 #### [facility] [address] [place] [address] Inventory Control Associate: Cody Dye MD #### IFX, FLLS, IMMS, CDP, THYGLA #### [address] [address] Inventory Control Associate: Jone Eller MD Ab.T Sup.(CD3+,CD8+) 641 /uL Normal 282-[address] [facility] Comment on above: Performed By: #### A IGGSB, APNAB1 #### [facility] [address] [place] [address] Inventory Control Associate: Cody Dye MD #### IFX, FLLS, IMMS, CDP, THYGLA #### [address] [address] Inventory Control Associate: Jone Eller MD Abs. Total B (CD19+) 0 /uL Low 71-[address] [facility] Comment on above: Performed By: #### A IGGSB, APNAB1 #### [facility] [address] [place] [address] Inventory Control Associate: Cody Dye MD #### IFX, FLLS, IMMS, CDP, THYGLA #### [address] [address] Inventory Control Associate: Jone Eller MD Abs. Total T (CD3+) 2317 /uL High 411-2061 [facility] Comment on above: Performed By: #### A IGGSB, APNAB1 #### [facility] [address] [place] [address] Inventory Control Associate: Cody Dye MD #### IFX, FLLS, IMMS, CDP, THYGLA #### [address] [address] Inventory Control Associate: Jone Eller MD H/S Ratio(CD4+/CD8+) 2.58 Normal 0.6-2.[address] [facility] Comment on above: Performed By: #### A IGGSB, APNAB1 #### [facility] [address] [place] [address] Inventory Control Associate: Cody Dye MD #### IFX, FLLS, IMMS, CDP, THYGLA #### [address] [address] Inventory Control Associate: Jone Eller MD Lymphocytes/100 WBC (Bld) 17 % Low 25-45 [facility] Comment on above: Performed By: #### A IGGSB, APNAB1 #### [facility] [address] [place] [address] Inventory Control Associate: Cody Dye MD #### IFX, FLLS, IMMS, CDP, THYGLA #### [place] [address] Inventory Control Associate: Jone Eller MD NK (CD3-,CD56+) 5 % Low 6-29 [facility] Comment on above: Performed By: #### A IGGSB, APNAB1 #### [facility] [address] [place] [address] Inventory Control Associate: Cody Dye MD #### IFX, FLLS, IMMS, CDP, THYGLA #### [address] [address] Inventory Control Associate: Jone Eller MD T [place] (CD3+,CD4+) 67 % High 27-[address] [facility] Comment on above: Performed By: #### A IGGSB, APNAB1 #### [facility] [address] [place] [address] Inventory Control Associate: Cody Dye MD #### IFX, FLLS, IMMS, CDP, THYGLA #### [address] [id number] Inventory Control Associate: Jone Eller MD T Sup. (CD3+, CD8+) 26 % Normal 17-48 [facility] Comment on above: Performed By: #### A IGGSB, APNAB1 #### [facility] [address] [place] [address] Inventory Control Associate: Cody Dye MD #### IFX, FLLS, IMMS, CDP, THYGLA #### [address] [address] Inventory Control Associate: Jone Eller MD Total B (CD19+) 0 % Low 5-25 [facility] Comment on above: Performed By: #### A IGGSB, APNAB1 #### [facility] [address] [place] [address] Inventory Control Associate: Cody Dye MD #### IFX, FLLS, IMMS, CDP, THYGLA #### [address] [address] Inventory Control Associate: Jone Eller MD Total T (CD3+) 94 % Normal 57-94 [facility] Comment on above: Performed By: #### A IGGSB, APNAB1 #### [facility] [address] [place] [address] Inventory Control Associate: Cody Dye MD #### IFX, FLLS, IMMS, CDP, THYGLA #### [address] [address] Inventory Control Associate: Jone Eller MD WBC (Bld) [#/Vol] 14.5 10*3/uL High 4.5-13.5 [facility] Comment on above: Performed By: #### A IGGSB, APNAB1 #### [facility] Laboratories [address] [place] [address] Inventory Control Associate: Cody Dye MD #### IFX, FLLS, IMMS, CDP, THYGLA #### [email or web address] [facility] [address] [place], [place] [id number] Inventory Control Associate: Jone Eller MD Thyroglobulin Abon 2 Thyroglobulin Ab Qn [IU]/mL Normal 0.0-40.0 [facility] Comment on above: Result Comment: Reference Range: <40.0 Negative 40.0-60.0 Equivocal >60.0 Positive When results are Equivocal, it is recommended to retest after 8-12 weeks. Performed By: #### A IGGSB, APNAB1 #### [employer] [facility] [address] [place] [address] Inventory Control Associate: Cody Dye MD #### IFX, FLLS, IMMS, CDP, THYGLA #### [email or web address] [facility] [address], [place] [id number] Inventory Control Associate: Jone Eller MD CBC with Auto Differentialon 07-09-2021 Absolute Eos # 0.43 [facility] [place] Absolute Immature Granulocyte 0.08 [employer] Absolute Lymph # 2.41 [facility] Absolute [place] # 1.26 [facility] lt Basophils (Bld) [#/Vol] 0.08 10*3/uL [facility] Basophils/100 WBC (Bld) 1 % 0 - 2 % [employer] Eosinophils/100 WBC (Bld) 3 % 1 - 4 % [facility] Hematocrit (Bld) [Volume fraction] 40.7 % 36.3 - 47.1 % [employer] Hemoglobin.gastrointe stinal spec 1 Ql (Stl) 13.5 g/dL 11.9 - 15.1 g/dL [facility] Immature granulocytes/100 WBC (Bld) 1 % High 0 [facility] Interpretation and review of laboratory results Abnormal [facility] Lymphocytes/100 WBC (Bld) 17 % Low 25 - 45 % [facility] MCH (RBC) [Entitic mass] 30.1 pg 25.2 - 33.5 pg [facility] MCHC (RBC) [Mass/Vol] 33.2 g/dL 28.4 - 34.8 g/dL [facility] MCV (RBC) [Entitic vol] 90.8 fL 82.6 - 102.9 fL [facility] Monocytes/100 WBC (Bld) 9 % High 2 - 8 % [facility] NRBC Automated 0.0 0.0 per 100 WBC [facility] Platelet distribution width (Bld) [Ratio] 12.7 % 11.8 - 14.4 % [facility] Platelet mean volume (Bld) [Entitic vol] 9.9 fL 8.1 - 13.5 fL [facility] Platelets (Bld) [#/Vol] 277 10*3/uL [facility] RBC (Bld) [#/Vol] 4.48 10*6/uL 3.95 - 5.1 1 m/uL [facility] Segmented neutrophils/100 WBC (Bld) 69 % High 34 - 64 % [facility] Segs Absolute 10.22 High [facility] WBC (Bld) [#/Vol] 14.5 10*3/uL High [facility] CBC with Diffon 07-09-2021 Abs. Basophil 0.08 k/uL Normal 0.00-0.20 [facility] Comment on above: Performed By: #### A IGGSB, APNAB1 #### [facility] [address] [place] [address] Inventory Control Associate: Cdoy Dye MD #### IFX, FLLS, IMMS, CDP, THYGLA #### [email or web address] [facility] [place] [address] Inventory Control Associate: Jone Eller MD Abs.Imm.Granulocyte 0.08 k/uL Normal 0.00-0.30 [facility] Comment on above: Performed By: #### A IGGSB, APNAB1 #### [facility] [address] [place] [address] Inventory Control Associate: Cody Dye MD #### IFX, FLLS, IMMS, CDP, THYGLA #### [email or web address] [facility] [place] [address] Inventory Control Associate: Jone Eller MD Abs.Neutrophil (Seg) 10.22 k/uL High 1.80-8.[address] [facility] Comment on above: Performed By: #### A IGGSB, APNAB1 #### [facility] [address] [place] [address] Inventory Control Associate: Cody Dye MD #### IFX, FLLS, IMMS, CDP, THYGLA #### [facility] [address] [place] [address] Inventory Control Associate: Jone Eller MD Basophils/100 WBC (Bld) 1 % Normal 0-2 [facility] Comment on above: Performed By: #### A IGGSB, APNAB1 #### [facility] [address] [place] [address] Inventory Control Associate: Cody Dye MD #### IFX, FLLS, IMMS, CDP, THYGLA #### [place] [id number] Inventory Control Associate: Jone Eller MD Eosinophils (Bld) [#/Vol] 0.43 10*3/uL Normal 0.00-0.44 [facility] Comment on above: Performed By: #### A IGGSB, APNAB1 #### [facility] [address] [place] [address] Inventory Control Associate: Cody Dye MD #### IFX, FLLS, IMMS, CDP, THYGLA #### [facility] [address] [place] [id number] Inventory Control Associate: Jone Eller MD Eosinophils/100 WBC (Bld) 3 % Normal 1-4 [facility] Comment on above: Performed By: #### A IGGSB, APNAB1 #### [facility] [address] [place] [address] Inventory Control Associate: Cody Dye MD #### IFX, FLLS, IMMS, CDP, THYGLA #### [address] [address] Inventory Control Associate: Jone Eller MD Erythrocyte distribution width (RBC) [Ratio] 12.7 % Normal 11.8-14.4 [facility] Comment on above: Performed By: #### A IGGSB, APNAB1 #### [facility] [address] [place] [address] Inventory Control Associate: Cody Dye MD #### IFX, FLLS, IMMS, CDP, THYGLA #### [address] [address] Inventory Control Associate: Jone Eller MD Hematocrit (Bld) [Volume fraction] 40.7 % Normal 36.3-47.1 [facility] Comment on above: Performed By: #### A IGGSB, APNAB1 #### [facility] [address] [place] [address] Inventory Control Associate: Cody Dye MD #### IFX, FLLS, IMMS, CDP, THYGLA #### [address] [address] Inventory Control Associate: Jone Eller MD Hemoglobin (Bld) [Mass/Vol] 13.5 g/dL Normal 11.9-15.1 [facility] Comment on above: Performed By: #### A IGGSB, APNAB1 #### [facility] [address] [place] [address] Inventory Control Associate: Cody Dye MD #### IFX, FLLS, IMMS, CDP, THYGLA #### [address] [id number] Inventory Control Associate: Jone Eller MD Immature granulocytes/100 WBC (Bld) 1 % High 0 [facility] Comment on above: Performed By: #### A IGGSB, APNAB1 #### [facility] [address] [place] [address] Inventory Control Associate: Cody yDe MD #### IFX, FLLS, IMMS, CDP, THYGLA #### [address] [address] Inventory Control Associate: Joen Eller MD Lymphocytes (Bld) [#/Vol] 2.41 10*3/uL Normal 1.20-5.20 [facility] Comment on above: Performed By: #### A IGGSB, APNAB1 #### [facility] [address] [place] [address] Inventory Control Associate: Cody Dye MD #### IFX, FLLS, IMMS, CDP, THYGLA #### [address] [address] Inventory Control Associate: Jone Eller MD Lymphocytes/100 WBC (Bld) 17 % Low 25-45 [facility] Comment on above: Performed By: #### A IGGSB, APNAB1 #### [facility] [address] [place] [address] Inventory Control Associate: Cody Dye MD #### IFX, FLLS, IMMS, CDP, THYGLA #### [address] [address] Inventory Control Associate: Jone Eller MD MCH (RBC) [Entitic mass] 30.1 pg Normal 25.2-33.5 [facility] Comment on above: Performed By: #### A IGGSB, APNAB1 #### [facility] [address] [place] [address] Inventory Control Associate: Cody Dye MD #### IFX, FLLS, IMMS, CDP, THYGLA #### [address] [id number] Inventory Control Associate: Jone Eller MD MCHC (RBC) [Mass/Vol] 33.2 g/dL Normal 28.4-34.8 [facility] Comment on above: Performed By: #### A IGGSB, APNAB1 #### [facility] [address] [place] [address] Inventory Control Associate: Cody Dye MD #### IFX, FLLS, IMMS, CDP, THYGLA #### [facility] [address] [place] [address] Inventory Control Associate: Jone Eller MD MCV (RBC) [Entitic vol] 90.8 fL Normal 82.6-102.9 [facility] Comment on above: Performed By: #### A IGGSB, APNAB1 #### [facility] [address] [place] [address] Inventory Control Associate: Cody Dye MD #### IFX, FLLS, IMMS, CDP, THYGLA #### [address] [address] Inventory Control Associate: Jone Eller MD Monocytes (Bld) [#/Vol] 1.26 10*3/uL Normal 0.10-1.40 [facility] Comment on above: Performed By: #### A IGGSB, APNAB1 #### [facility] [address] [place] [address] Inventory Control Associate: Cody Dye MD #### IFX, FLLS, IMMS, CDP, THYGLA #### [address] [address] Inventory Control Associate: Jone Eller MD Monocytes/100 WBC (Bld) 9 % High 2-8 [facility] Comment on above: Performed By: #### A IGGSB, APNAB1 #### [facility] [address] [place] [address] Inventory Control Associate: Cody Dye MD #### IFX, FLLS, IMMS, CDP, THYGLA #### [address] [address] Inventory Control Associate: Jone Eller MD Neutrophil (Seg) 69 % High 34-64 [facility] Comment on above: Performed By: #### A IGGSB, APNAB1 #### [facility] [address] [place] [address] Inventory Control Associate: Cody Dye MD #### IFX, FLLS, IMMS, CDP, THYGLA #### [address] [address] Inventory Control Associate: Jone Eller MD NRBC Automated 0.0 per 100 WBC Normal 0.0 [facility] Comment on above: Performed By: #### A IGGSB, APNAB1 #### [facility] [address] [place] [address] Inventory Control Associate: Cody Dye MD #### IFX, FLLS, IMMS, CDP, THYGLA #### [place] [address] Inventory Control Associate: Jone Eller MD Platelet mean volume (Bld) [Entitic vol] 9.9 fL Normal 8.1-13.5 [facility] Comment on above: Performed By: #### A IGGSB, APNAB1 #### [facility] [address] [place] [address] Inventory Control Associate: Cody Dye MD #### IFX, FLLS, IMMS, CDP, THYGLA #### [place] [address] Inventory Control Associate: Jone Eller MD Platelets (Bld) [#/Vol] 277 10*3/uL Normal 138-453 [facility] Comment on above: Performed By: #### A IGGSB, APNAB1 #### [facility] [address] [place] [address] Inventory Control Associate: Cody Dye MD #### IFX, FLLS, IMMS, CDP, THYGLA #### [address] [id number] Inventory Control Associate: Jone Eller MD RBC (Bld) [#/Vol] 4.48 10*6/uL Normal 3.95-5.11 [facility] Comment on above: Performed By: #### A IGGSB, APNAB1 #### [facility] [address] [place] [address] Inventory Control Associate: Cody Dye MD #### IFX, FLLS, IMMS, CDP, THYGLA #### [address] [id number] Inventory Control Associate: Jone Eller MD WBC (Bld) [#/Vol] 14.5 10*3/uL High 4.5-13.5 [facility] Comment on above: Performed By: #### A IGGSB, APNAB1 #### [facility] [address] [place] [address] Inventory Control Associate: Cody Dye MD #### IFX, FLLS, IMMS, CDP, THYGLA #### [address] [id number] Inventory Control Associate: Jone Eller MD Immunoglobulin Panel (IgG, I gA, IgM)on 07-09-2021 IgA [Mass/Vol] 201 mg/dL 70 - 400 mg/dL [facility] IgG [Mass/Vol] 545 mg/dL Low 700 - 1600 mg/dL [facility] IgM [Mass/Vol] 70 mg/dL 40 - 230 mg/dL [facility] Interpretation and review of laboratory results Abnormal [facility] Immunoglobulinson 07-09-2021 IgA [Mass/Vol] 201 mg/dL Normal 70-400 [facility] Comment on above: Performed By: #### A IGGSB, APNAB1 #### [facility] [address] [place] [address] Inventory Control Associate: Cody Dye MD #### IFX, FLLS, IMMS, CDP, THYGLA #### [facility] [address] [place] [address] Inventory Control Associate: Jone Eller MD IgG [Mass/Vol] 545 mg/dL Low 700-1600 [facility] Comment on above: Performed By: #### A IGGSB, APNAB1 #### [facility] [address] [place] [address] Inventory Control Associate: Cody Dye MD #### IFX, FLLS, IMMS, CDP, THYGLA #### [address] [id number] Inventory Control Associate: Jone Eller MD IgM [Mass/Vol] 70 mg/dL Normal 40-230 [facility] Comment on above: Performed By: #### A IGGSB, APNAB1 #### [facility] [address] [place], [place] [id number] Inventory Control Associate: Cody Dye MD #### IFX, FLLS, IMMS, CDP, THYGLA #### [address] [id number] Inventory Control Associate: Jone Eller MD CBC AUTO DIFFon 06-27-2021 BASO # 0.1 103/ul Normal 0.0-0.1 [facility] Comment on above: Performed By: #### T RANSFR #### [facility] [address] [place] [address] Dr. Orlando Saldivar Basophils/100 WBC (Bld) 0.5 % Normal 0.2-2.0 [facility] Comment on above: Performed By: #### T RANSFR #### [facility] [address] [place] [address] [address] Orlando Saldivar EO # 0.4 103/ul Normal 0.0-0.7 [facility] Comment on above: Performed By: #### T RANSFR #### [facility] [address] [place] [address] Dr. Orlando Saldivar Eosinophils/100 WBC (Bld) 2.4 % Normal 0.9-7.0 [facility] Comment on above: Performed By: #### T RANSFR #### [facility] [address] [place] [address] Dr. Orlando Saldivar Erythrocyte distribution width (RBC) [Ratio] 12.8 % Normal 11.0-15.0 [facility] Comment on above: Performed By: #### T RANSFR #### [facility] [address] [place] [address] Dr. Orlando Saldivar Hematocrit (Bld) [Volume fraction] 38.1 % Normal 36.0-48.0 [facility] Comment on above: Performed By: #### T RANSFR #### [facility] [address] [place] [address] Dr. Orlando Saldivar Hemoglobin (Bld) [Mass/Vol] 12.7 g/dL Normal 12.0-16.0 [facility] Comment on above: Performed By: #### T RANSFR #### [facility] [address] [place] [address] Dr. Orlando Saldivar IG # 0.05 10e3/ul Critically high 0.00-0.03 [facility] Comment on above: Performed By: #### T RANSFR #### [facility] [address] [place] [address] Dr. Orlando Saldivar IG % 0.3 % Normal 0.0-0.5 [facility] Comment on above: Performed By: #### T RANSFR #### [facility] [address] [place] [address] Dr. Orlando Saldivar LYMPH # 2.5 103/ul Normal 1.2-3.8 [facility] Comment on above: Performed By: #### T RANSFR #### [facility] [address] [place] [address] Dr. Orlando Saldivar Lymphocytes/100 WBC (Bld) 16.1 % Critically low 20.5-60.0 [facility] Comment on above: Performed By: #### T RANSFR #### [facility] [address] [place] [address] Dr. Orlando Saldivar MANUAL DIFF REQ NO Normal [facility] Comment on above: Performed By: #### T RANSFR #### [facility] [address] [place] [address] Dr. Orlando Saldivar MCH (RBC) [Entitic mass] 30.0 pg Normal 26.7-34.0 [facility] Comment on above: Performed By: #### T RANSFR #### [facility] [address] [place] [address] Dr. Orlando Saldivar MCHC (RBC) [Mass/Vol] 33.3 g/dL Normal 29.9-35.2 [facility] Comment on above: Performed By: #### T RANSFR #### [facility] [address] [place] [address] Dr. Orlando Saldivar MCV (RBC) [Entitic vol] 90.1 fL Normal 81.0-99.0 [facility] Comment on above: Performed By: #### T RANSFR #### [facility] [address] [place] [address] Dr. Orlando Saldivar MONO # 1.0 103/ul Critically high 0.3-0.8 [facility] Comment on above: Performed By: #### T RANSFR #### [facility] [address] [place] [address] Dr. Orlando Saldivar Monocytes/100 WBC (Bld) 6.6 % Normal 1.7-12.0 [facility] Comment on above: Performed By: #### T RANSFR #### [facility] [address] [place] [address] Dr. Orlando Saldivar NEUT # 11.3 103/ul Critically high 1.4-6.5 [facility] Comment on above: Performed By: #### T RANSFR #### [facility] [address] [place] [address] [address] Orlando Saldivar Neutrophils/100 WBC (Bld) 74.1 % Normal 43.0-75.0 [facility] Comment on above: Performed By: #### T RANSFR #### [facility] [address] [place] [address] Dr. Orlando Saldivar Platelet mean volume (Bld) [Entitic vol] 9.3 fL Critically low 9.5-13.5 [facility] Comment on above: Performed By: #### T RANSFR #### [facility] [address] [place] [address] Dr. Orlando Saldivar PLT 256 103/ul Normal 150-450 [facility] Comment on above: Performed By: #### T RANSFR #### [facility] [address] [place] [address] Dr. Orlando Saldivar RBC 4.23 106/ul Normal 4.20-5.40 [facility] Comment on above: Performed By: #### T RANSFR #### [facility] [address] [place] [address] Dr. Orlando Saldivar WBC 15.2 103/ul Critically high 4.0-11.0 [facility] Comment on above: Performed By: #### T RANSFR #### [facility] [address] [place] [address] Dr. Orlando Saldivar CRPon 06-27-2021 CRP [Mass/Vol] mg/L Normal <=1.0 [facility] Comment on above: Performed By: #### C MP, CRP #### [facility] [address] [place] [address] Dr. Orlando Saldivar PROF 14(COMP METB)on 022 Albumin [Mass/Vol] 3.8 g/dL Normal 3.5-5.0 [facility] Comment on above: Performed By: #### C MP, CRP #### [facility] [address] [place] [address] Dr. Orlando Saldivar Albumin/Globulin [Mass ratio] 1.2 {ratio} Normal [facility] Comment on above: Performed By: #### C MP, CRP #### [facility] [address] [place] [address] [address] Orlando Saldivar ALP [Catalytic activity/Vol] 65 U/L Normal 38-126 [facility] Comment on above: Performed By: #### C MP, CRP #### [facility] [address] [place] [address] [address] Orlando Saldivar ALT [Catalytic activity/Vol] 11 U/L Normal 9-52 [facility] Comment on above: Performed By: #### C MP, CRP #### [facility] [address] [place] [address] [address] Orlando Saldivar Anion gap [Moles/Vol] 12.9 mmol/L Normal Th e [facility] Comment on above: Performed By: #### C MP, CRP #### [facility] [address] [place] [address] [address] Orlando Saldivar AST [Catalytic activity/Vol] 10 U/L Critically low 14-36 [facility] Comment on above: Performed By: #### C MP, CRP #### [facility] [address] [place] [address] [address] Orlando Saldivar Bilirubin [Mass/Vol] 0.6 mg/dL Normal 0.2-1.3 [facility] Comment on above: Performed By: #### C MP, CRP #### [facility] [address] [place] [address] [address] Orlando Saldivar Calcium [Mass/Vol] 9.0 mg/dL Normal 8.4-10.2 [facility] Comment on above: Performed By: #### C MP, CRP #### [facility] [address] [place] [address] [address] Orlando Saldivar Chloride [Moles/Vol] 102 mmol/L Normal 98-107 [facility] Comment on above: Performed By: #### C MP, CRP #### [facility] [address] [place] [address] [address] Orlando Saldivar CO2 [Moles/Vol] 28.9 mmol/L Normal 22.0-30.0 [facility] Comment on above: Performed By: #### C MP, CRP #### [facility] [address] [place] [address] [address] Orlando Saldivar Creatinine [Mass/Vol] 0.80 mg/dL Normal 0.52-1.04 [facility] Comment on above: Performed By: #### C MP, CRP #### [facility] [address] [place] [address] [address] Orlando Saldivar EGFR-AF BOTSWANAN >60 Normal >=60 [facility] Comment on above: Performed By: #### C MP, CRP #### [facility] [address] [place] [address] [address] Orlando Saldivar EGFR-NON AF BOTSWANAN >60 Normal >=60 [facility] Comment on above: Performed By: #### C MP, CRP #### [facility] [address] [place] [address] [address] Orlando Saldivar Globulin (S) [Mass/Vol] 3.1 g/dL Normal [facility] Comment on above: Performed By: #### C MP, CRP #### [facility] [address] [place] [address] [address] Orlando Saldivar Glucose [Mass/Vol] 90 mg/dL Normal 74-106 [facility] Comment on above: Performed By: #### C MP, CRP #### [facility] [address] [place] [address] [address] Orlando Saldivar Potassium [Moles/Vol] 3.8 mmol/L Normal 3.4-5.0 [facility] Comment on above: Performed By: #### C MP, CRP #### [facility] [address] [place] [address] [address] Orlando Saldivar Protein [Mass/Vol] 6.9 g/dL Normal 6.1-8.2 [facility] Comment on above: Performed By: #### C MP, CRP #### [facility] [address] [place] [address] [address] Orlando Saldivar Sodium [Moles/Vol] 140 mmol/L Normal 137-145 [facility] Comment on above: Performed By: #### C MP, CRP #### [facility] [address] [place] [address] [address] Orlando Saldivar Urea nitrogen [Mass/Vol] 13.0 mg/dL Normal 6.4-19.3 [facility] Comment on above: Performed By: #### C MP, CRP #### [facility] [address] [place] [address] [address] Orlando Saldivar Urea nitrogen/Creatinine [Mass ratio] 16.2 mg/mg Normal [facility] Comment on above: Performed By: #### C MP, CRP #### [facility] [address] [place] [address] [address] Orlando Saldivar SED RATE [facility] 2021 SED RATE 11 mm/hr Normal <=20 [facility] Comment on above: Performed By: #### S EDR #### [facility] [address] [place] [address] Dr. Orlando Saldivar Complete Blood Count with Au to Diffon 06-13-2021 Basophils (Bld) [#/Vol] 0.05 10*3/uL Normal 0.00-0.20 [facility] Comment on above: Performed By: #### C BCAD #### [facility] [address] [place], [place] [id number] Basophils/100 WBC (Bld) 0.4 % Normal [facility] Comment on above: Performed By: #### C BCAD #### [facility] [address] [place], [place] [id number] Eosinophils (Bld) [#/Vol] 0.43 10*3/uL Normal 0.02-0.50 [facility] Comment on above: Performed By: #### C BCAD #### [facility] [address] [place], [place] [id number] Eosinophils/100 WBC (Bld) 3.0 % Normal [facility] Comment on above: Performed By: #### C BCAD #### [facility] [address] [place], [place] [id number] Erythrocyte distribution width (RBC) [Ratio] 12.4 % Normal 11.0-15.0 [facility] Comment on above: Performed By: #### C BCAD #### [facility] [address] [place], [place] [id number] Hematocrit (Bld) [Volume fraction] 38.3 % Normal 35.0-47.0 [facility] Comment on above: Performed By: #### C BCAD #### [facility] [address] [place], [place] [id number] Hemoglobin (Bld) [Mass/Vol] 12.7 g/dL Normal 11.6-15.5 [facility] Comment on above: Performed By: #### C BCAD #### [facility] [address] [place], [place] [id number] Lymphocytes (Bld) [#/Vol] 1.8 10*3/uL Normal 0.9-3.9 [facility] Comment on above: Performed By: #### C BCAD #### [facility] [address] [place], [place] [id number] Lymphocytes/100 WBC (Bld) 12.8 % Normal [facility] Comment on above: Performed By: #### C BCAD #### [facility] [address] [place], [place] [id number] MCH (RBC) [Entitic mass] 30.0 pg Normal 27.0-33.0 [facility] Comment on above: Performed By: #### C BCAD #### [facility] [address] [place], [place] [id number] MCHC (RBC) [Mass/Vol] 33.2 g/dL Normal 32.0-36.0 [facility] Comment on above: Performed By: #### C BCAD #### [facility] [address] [place], [place] [id number] MCV (RBC) [Entitic vol] 90 fL Normal 80-100 [facility] Comment on above: Performed By: #### C BCAD #### [facility] [address] [place], [place] [id number] Monocytes (Bld) [#/Vol] 1.0 10*3/uL High 0.2-0.9 [facility] Comment on above: Performed By: #### C BCAD #### [facility] [address] [place], [place] [id number] Monocytes/100 WBC (Bld) 7.4 % Normal [facility] Comment on above: Performed By: #### C BCAD #### [facility] [address] [place], [place] [id number] Neutrophils (Bld) [#/Vol] 10.7 10*3/uL High 1.5-7.8 [facility] Comment on above: Performed By: #### C BCAD #### [facility] [address], [place] [id number] Neutrophils/100 WBC (Bld) 75.9 % Normal [facility] Comment on above: Performed By: #### C BCAD #### [facility] [address], [place] [id number] Platelet mean volume (Bld) [Entitic vol] 10.00 fL Normal 7.50-12.50 [place] Comment on above: Performed By: #### C BCAD #### [facility] [address], [place] [id number] Platelets (Bld) [#/Vol] 293 10*3/uL Normal 140-400 [facility] Comment on above: Performed By: #### C BCAD #### [facility] [address], [place] [id number] RBC (Bld) [#/Vol] 4.24 10*6/uL Normal 3.90-5.20 [facility] Comment on above: Performed By: #### C BCAD #### [facility] [address], [place] [id number] RDW-SD 40.5 fL Normal 37.0-50.0 [facility] Comment on above: Performed By: #### C BCAD #### [facility] [address], [place] [id number] WBC (Bld) [#/Vol] 14.1 10*3/uL High 3.8-11.0 [facility] Comment on above: Performed By: #### C BCAD #### [facility] [address], [place] [id number] ZINC SERUM OR PLASMAon 01-21 -2022 Zinc, Plasma or Serum 74 ug/dL Normal 44-115 [facility] Comment on above: Result Comment: Dete ction Limit = 5 Performed By: #### Z inc #### [facility] [address] [place] [address] Dr. Orlando Saldivar TRANSFERRINon 05-01-2021 Transferrin [Mass/Vol] 194 mg/dL Normal 192-364 [facility] Comment on above: Performed By: #### T RANSFR #### [facility] [address] [place] [address] Dr. Orlando Saldivar CBC AUTO DIFFon 04-30-2021 BASO # 0.1 103/ul Normal 0.0-0.1 [facility] Comment on above: Performed By: #### C BC #### [facility] [address] [place] [address] Dr. Orlando Saldivar Basophils/100 WBC (Bld) 0.4 % Normal 0.2-2.0 [facility] Comment on above: Performed By: #### C BC #### [facility] [address] [place] [address] Dr. Orlando Saldivar EO # 0.2 103/ul Normal 0.0-0.7 [facility] Comment on above: Performed By: #### C BC #### [facility] [address] [place] [address] Dr. Orlando Saldivar Eosinophils/100 WBC (Bld) 1.6 % Normal 0.9-7.0 [facility] Comment on above: Performed By: #### C BC #### [facility] [address] [place] [address] Dr. Orlando Saldivar Erythrocyte distribution width (RBC) [Ratio] 13.1 % Normal 11.0-15.0 [facility] Comment on above: Performed By: #### C BC #### [facility] [address] [place] [address] Dr. Orlando Saldivar Hematocrit (Bld) [Volume fraction] 40.1 % Normal 36.0-48.0 [facility] Comment on above: Performed By: #### C BC #### [facility] [address] [place] [address] Dr. Orlando Saldivar Hemoglobin (Bld) [Mass/Vol] 13.3 g/dL Normal 12.0-16.0 [facility] Comment on above: Performed By: #### C BC #### [facility] [address] [place] [address] Dr. Orlando Saldivar IG # 0.06 10e3/ul Critically high 0.00-0.03 [facility] Comment on above: Performed By: #### C BC #### [facility] [address] [place] [address] Dr. Orlando Saldivar IG % 0.5 % Normal 0.0-0.5 [facility] Comment on above: Performed By: #### C BC #### [facility] [address] [place] [address] Dr. Orlando Saldivar LYMPH # 1.8 103/ul Normal 1.2-3.8 [facility] Comment on above: Performed By: #### C BC #### [facility] [address] [place] [address] Dr. Orlando Saldivar Lymphocytes/100 WBC (Bld) 15.0 % Critically low 20.5-60.0 [facility] Comment on above: Performed By: #### C BC #### [facility] [address] [place] [address] Dr. Orlando Saldivar MANUAL DIFF REQ NO Normal [facility] Comment on above: Performed By: #### C BC #### [facility] [address] [place] [address] Dr. Orlando Saldivar MCH (RBC) [Entitic mass] 29.8 pg Normal 26.7-34.0 [facility] Comment on above: Performed By: #### C BC #### [facility] [address] [place] [address] Dr. Orlando Saldivar MCHC (RBC) [Mass/Vol] 33.2 g/dL Normal 29.9-35.2 [facility] Comment on above: Performed By: #### C BC #### [facility] [address] [place] [address] Dr. Orlando Saldivar MCV (RBC) [Entitic vol] 89.7 fL Normal 81.0-99.0 [facility] Comment on above: Performed By: #### C BC #### [facility] [address] [place] [address] Dr. Orlando Saldivar MONO # 0.7 103/ul Normal 0.3-0.8 [facility] Comment on above: Performed By: #### C BC #### [facility] [address] [place] [address] Dr. Orlando Saldivar Monocytes/100 WBC (Bld) 6.0 % Normal 1.7-12.0 [facility] Comment on above: Performed By: #### C BC #### [facility] [address] [place] [address] Dr. Orlando Saldivar NEUT # 9.4 103/ul Critically high 1.4-6.5 [facility] Comment on above: Performed By: #### C BC #### [facility] [address] [place] [address] Dr. Orlando Saldivar Neutrophils/100 WBC (Bld) 76.5 % Critically high 43.0-75.0 [facility] Comment on above: Performed By: #### C BC #### [facility] [address] [place] [address] Dr. Orlando Saldivar Platelet mean volume (Bld) [Entitic vol] 9.7 fL Normal 9.5-13.5 [facility] Comment on above: Performed By: #### C BC #### [facility] [address] [place] [address] Dr. Orlando Saldivar PLT 211 103/ul Normal 150-450 [facility] Comment on above: Performed By: #### C BC #### [facility] [address] [place] [address] Dr. Orlando Saldivar RBC 4.47 106/ul Normal 4.20-5.40 [facility] Comment on above: Performed By: #### C BC #### [facility] [address] [place] [address] Dr. Orlando Saldivar WBC 12.3 103/ul Critically high 4.0-11.0 [facility] Comment on above: Performed By: #### C BC #### [facility] [address] [address] [address] Orlando Saldivar CRPon 04-30-2021 CRP [Mass/Vol] mg/L Normal <=1.0 [facility] Comment on above: Performed By: #### C MP, CRP #### [facility] [address] [place] [address] Dr. Orlando Saldivar FERRITINon 04-30-2021 Ferritin [Mass/Vol] 118.0 ng/mL Normal 6.2-137.0 [facility] Comment on above: Performed By: #### T RANSFR #### [facility] [address] [place] [address] Dr. Orlando Saldivar IRON AND TIBCon 04-30-2021 % SATURATION 26.3 % Normal [facility] Comment on above: Performed By: #### F ERR, FETIBC, VITB12 #### [facility] [address] [place] [address] Dr. Orlando Saldivar Iron [Mass/Vol] 59.0 ug/dL Normal 37.0-170.0 [facility] Comment on above: Performed By: #### F ERR, FETIBC, VITB12 #### [facility] [address] [place] [address] Dr. Orlando Saldivar TIBC DIRECT 224.0 ug/dL Critically low 261.0-497.0 [facility] Comment on above: Performed By: #### F ERR, FETIBC, VITB12 #### [facility] [address] [place] [address] Dr. Orlando Saldivar PROF 14(COMP METB)on 022 Albumin [Mass/Vol] 3.7 g/dL Normal 3.5-5.0 [facility] Comment on above: Performed By: #### C MP, CRP #### [facility] [address] [place] [address] Dr. Orlando Saldivar Albumin/Globulin [Mass ratio] 1.3 {ratio} Normal [facility] Comment on above: Performed By: #### C MP, CRP #### [facility] [address] [address] [address] Orlando Saldivar ALP [Catalytic activity/Vol] 66 U/L Normal 38-126 [facility] Comment on above: Performed By: #### C MP, CRP #### [facility] [address] [address] [address] Orlando Saldivar ALT [Catalytic activity/Vol] 9 U/L Normal 9-52 [facility] Comment on above: Performed By: #### C MP, CRP #### [facility] [address] [address] [address] Orlando Saldivar Anion gap [Moles/Vol] 12.4 mmol/L Normal [facility] Comment on above: Performed By: #### C MP, CRP #### [facility] [address] [address] [address] Orlando Saldivar AST [Catalytic activity/Vol] 10 U/L Critically low 14-36 [facility] Comment on above: Performed By: #### C MP, CRP #### [facility] [address] [address] [address] Orlando Saldivar Bilirubin [Mass/Vol] 0.4 mg/dL Normal 0.2-1.3 [facility] Comment on above: Performed By: #### C MP, CRP #### [facility] [address] [address] [address] Orlando Saldivar Calcium [Mass/Vol] 9.0 mg/dL Normal 8.4-10.2 [facility] Comment on above: Performed By: #### C MP, CRP #### [facility] [address] [address] [address] Orlando Saldivar Chloride [Moles/Vol] 103 mmol/L Normal 98-107 [facility] Comment on above: Performed By: #### C MP, CRP #### [facility] [address] [address] [address] Orlando Saldivar CO2 [Moles/Vol] 26.0 mmol/L Normal 22.0-30.0 [facility] Comment on above: Performed By: #### C MP, CRP #### [facility] [address] [address] [address] Orlando Saldivar Creatinine [Mass/Vol] 0.92 mg/dL Normal 0.52-1.04 [facility] Comment on above: Performed By: #### C MP, CRP #### [facility] [address] [address] [address] Orlando Saldivar EGFR-AF BOTSWANAN >60 Normal >=60 [facility] Comment on above: Performed By: #### C MP, CRP #### [facility] [address] [address] [address] Orlando Saldivar EGFR-NON AF BOTSWANAN >60 Normal >=60 [facility] Comment on above: Performed By: #### C MP, CRP #### [facility] [address] [address] [address] Orlando Saldivar Globulin (S) [Mass/Vol] 2.9 g/dL Normal [facility] Comment on above: Performed By: #### C MP, CRP #### [facility] [address] [address] [address] Orlando Saldivar Glucose [Mass/Vol] 119 mg/dL Critically high 74-106 [facility] Comment on above: Performed By: #### C MP, CRP #### [facility] [address] [address] [address] Orlando Saldivar Potassium [Moles/Vol] 3.4 mmol/L Normal 3.4-5.0 [facility] Comment on above: Performed By: #### C MP, CRP #### [facility] [address] [address] [address] Orlando Saldivar Protein [Mass/Vol] 6.6 g/dL Normal 6.1-8.2 [facility] Comment on above: Performed By: #### C MP, CRP #### [facility] [address] [address] [address] Orlando Saldivar Sodium [Moles/Vol] 138 mmol/L Normal 137-145 [facility] Comment on above: Performed By: #### C MP, CRP #### [facility] [address] [address] [address] Orlando Saldivar Urea nitrogen [Mass/Vol] 8.0 mg/dL Normal 6.4-19.3 [facility] Comment on above: Performed By: #### C MP, CRP #### [facility] [address] [address] [address] Orlando Saldivar Urea nitrogen/Creatinine [Mass ratio] 8.7 mg/mg Normal [facility] Comment on above: Performed By: #### C MP, CRP #### [facility] [address] [place] [address] Dr. Orlando [facility] mm/hr Normal <=20 [facility] Comment on above: Performed By: #### S EDR #### [facility] [address] [place] [address] Dr. Orlando Saldivar VITAMIN B12on 04-30-2021 Cobalamin (Vitamin B12) [Mass/Vol] 812.0 pg/mL Normal 239.0-931.0 [facility] Comment on above: Performed By: #### T RANSFR #### [facility] [address] [place] [address] Dr. Orlando Saldivar Lab Reportson 01-17-2020 Lab Reports [id number]#1.00C D:127 Normal [facility] Consultation Noteon 01-13-20 Consultation Note [id number]#1.00CD :127 Normal [facility] Auth for Release of Medical Recordson 12-09-2019 Auth for Release of Medical Records [id number]#1.00CD :127 Normal [facility] Consultation Noteon 11-24-19 Consultation Note [id number]#1.00C D:127 Normal [facility] Consultation Noteon 11-22-19 Consultation Note [id number]#1.00C D:127 Normal [facility] Vital Signs Date Time Vital Sign Value Performing Clinician Facility 12-26-2024 11:04-0400 Body height 160 cm Clifford Rodas MD Work Phone: [facility] Comment on above: w/o shoes 12-26-2024 11:04-0400 Body mass index (BMI) [Ratio] 26.96 kg/m2 Clifford Rodas MD Work Phone: [facility] 12-26-2024 11:04-0400 Body temperature 98.2 [degF] Clifford Rodas MD Work Phone: 3(359)412-135084 [address] 12-26-2024 11:04-0400 Body weight 69.04 kg Clifford Rodas MD Work Phone: [facility] Comment on above: w/o shoes 12-26-2024 11:04-0400 Diastolic blood pressure 71 mm[Hg] Clifford Rodas MD Work Phone: [facility] 12-26-2024 11:04-0400 Heart rate 67 /min Clifford Rodas MD Work Phone: [facility] 12-26-2024 11:04-0400 Respiratory rate 16 /min Clifford Rodas MD Work Phone: [facility] 12-26-2024 11:04-0400 SaO2% (BldA) [Mass fraction] 98 % Clifford Rodas MD Work Phone: [facility] Comment on above: room air 12-26-2024 11:04-0400 Systolic blood pressure 104 mm[Hg] Clifford Rodas MD Work Phone: [facility] 11-02-2024 18:42-0400 Diastolic blood pressure 77 mm[Hg] Clifford Rodas MD Work Phone: 3(439)052-728848 [place] [address] 11-02-2024 18:42-0400 Heart rate 66 /min Clifford Rodas MD Work Phone: 8(629)914-768348 [place] [address] 11-02-2024 18:42-0400 Respiratory rate 16 /min Clifford Rodas MD Work Phone: 1(877)536-286148 [place] [address] 11-02-2024 18:42-0400 SaO2% (BldA) [Mass fraction] 99 % Clifford Rodas MD Work Phone: 3(207)359-713848 [place] [address] 11-02-2024 18:42-0400 Systolic blood pressure 106 mm[Hg] Clifford Rodas MD Work Phone: 5(567)511-972148 [place] [address] 11-02-2024 18:15-0400 Body temperature 97.59 [degF] Clifford Rodas MD Work Phone: 9(009)562-148048 [place] [address] 11-02-2024 14:41-0400 Body height 160 cm Clifford Rodas MD Work Phone: 4(573)182-775348 [place] [address] 11-02-2024 14:41-0400 Body mass index (BMI) [Ratio] 27.62 kg/m2 Clifford Rodas MD Work Phone: 1(007)890-224448 [place] [address] 11-02-2024 14:41-0400 Body weight 70.72 kg Clifford Rodas MD Work Phone: 8(072)904-828548 [place] [address] 10-17-2024 10:30-0400 Body height 161 cm Clifford Rodas MD Work Phone: [facility] Comment on above: w/o shoes 10-17-2024 10:30-0400 Body mass index (BMI) [Ratio] 28.63 kg/m2 Clifford Rodas MD Work Phone: 1(441)354-156984 [address] 10-17-2024 10:30-0400 Body temperature 98.29 [degF] Clifford Rodas MD Work Phone: 2(203)668-884248 [place] [address] 10-17-2024 10:30-0400 Body weight 74.21 kg Clifford Rodas MD Work Phone: [facility] Comment on above: w/o shoes 10-17-2024 10:30-0400 Diastolic blood pressure 63 mm[Hg] Clifford Rodas MD Work Phone: [facility] 10-17-2024 10:30-0400 Heart rate 75 /min Clifford Rodas MD Work Phone: [facility] 10-17-2024 10:30-0400 Respiratory rate 16 /min Clifford Rodas MD Work Phone: [facility] 10-17-2024 10:30-0400 SaO2% (BldA) [Mass fraction] 100 % Clifford Rodas MD Work Phone: [facility] Comment on above: room air 10-17-2024 10:30-0400 Systolic blood pressure 111 mm[Hg] Clifford Rodas MD Work Phone: [facility] 09-26-2024 16:04-0400 Body mass index (BMI) [Ratio] 29.23 kg/m2 Serene Alfred RANCH HAND SUPERVISOR Work Phone: [facility] 09-26-2024 16:04-0400 Body temperature 97.5 [degF] Serene Paulk RANCH HAND SUPERVISOR Work Phone: [facility] 09-26-2024 16:04-0400 Body weight 74.84 kg Serene Ambrociopatrick RANCH HAND SUPERVISOR Work Phone: [facility] 09-26-2024 16:04-0400 Diastolic blood pressure 74 mm[Hg] Serene Jean Baptistetrick RANCH HAND SUPERVISOR Work Phone: [facility] 09-26-2024 16:04-0400 Heart rate 92 /min Serene Paulk RANCH HAND SUPERVISOR Work Phone: [facility] 09-26-2024 16:04-0400 SaO2% (BldA) [Mass fraction] 95 % Serene Paulk RANCH HAND SUPERVISOR Work Phone: [facility] 09-26-2024 16:04-0400 Systolic blood pressure 104 mm[Hg] Serene Paulk RANCH HAND SUPERVISOR Work Phone: [facility] 09-22-2024 14:05-0400 Body height 160 cm Milind Fitch CUTTING AND PRINTING MACHINE OPERATOR-BASKET MAKER Work Phone: [facility] 09-22-2024 14:05-0400 Body mass index (BMI) [Ratio] 64.59 kg/m2 Milind Fitch CUTTING AND PRINTING MACHINE OPERATOR-BASKET MAKER Work Phone: [facility] 09-22-2024 14:05-0400 Body weight 165.38 kg Milind Fitch CUTTING AND PRINTING MACHINE OPERATOR-BASKET MAKER Work Phone: [facility] 09-22-2024 14:05-0400 Diastolic blood pressure 78 mm[Hg] Milind Fitch CUTTING AND PRINTING MACHINE OPERATOR-BASKET MAKER Work Phone: [facility] 09-22-2024 14:05-0400 Heart rate 74 /min Milind Fitch CUTTING AND PRINTING MACHINE OPERATOR-BASKET MAKER Work Phone: [facility] 09-22-2024 14:05-0400 Respiratory rate 21 /min Milind Fitch CUTTING AND PRINTING MACHINE OPERATOR-BASKET MAKER Work Phone: [facility] 09-22-2024 14:05-0400 SaO2% (BldA) [Mass fraction] 98 % Milind Fitch CUTTING AND PRINTING MACHINE OPERATOR-BASKET MAKER Work Phone: [facility] 09-22-2024 14:05-0400 Systolic blood pressure 118 mm[Hg] Milind Fitch CUTTING AND PRINTING MACHINE OPERATOR-BASKET MAKER Work Phone: [facility] 09-06-2024 14:55-0400 Heart rate 78 /min Tu Dalton MD Work Phone: [facility] 09-06-2024 14:55-0400 Respiratory rate 46 /min Tu Dalton MD Work Phone: [facility] 09-06-2024 14:55-0400 SaO2% (BldA) [Mass fraction] 99 % Tu Dalton MD Work Phone: [facility] 09-06-2024 14:50-0400 Diastolic blood pressure 72 mm[Hg] Tu Dalton MD Work Phone: 0(081)742-079451 [place] [address] 09-06-2024 14:50-0400 Systolic blood pressure 106 mm[Hg] Tu Dalton MD Work Phone: 3(104)041-377751 [place] [address] 09-06-2024 14:14-0400 Body temperature 97.7 [degF] Tu Dalton MD Work Phone: 3(121)520-011551 [place] [address] 09-06-2024 12:35-0400 Body height 160 cm Tu Dalton MD Work Phone: 5(184)319-670151 [place] [address] 09-06-2024 12:35-0400 Body mass index (BMI) [Ratio] 29.58 kg/m2 Tu Dalton MD Work Phone: [facility] 09-06-2024 12:35-0400 Body weight 75.75 kg Tu Dalton MD Work Phone: [facility] 08-01-2024 17:40-0400 Body height 160 cm Katie Aceves RANCH HAND SUPERVISOR Work Phone: [facility] 08-01-2024 17:40-0400 Body mass index (BMI) [Ratio] 30.11 kg/m2 Katie Aceves RANCH HAND SUPERVISOR Work Phone: [facility] 08-01-2024 17:40-0400 Body temperature 99.3 [degF] Katie Aceves RANCH HAND SUPERVISOR Work Phone: [facility] 08-01-2024 17:40-0400 Body weight 77.11 kg Katie Aceves RANCH HAND SUPERVISOR Work Phone: [facility] 08-01-2024 17:40-0400 Diastolic blood pressure 80 mm[Hg] Katie Aceves RANCH HAND SUPERVISOR Work Phone: [facility] 08-01-2024 17:40-0400 Heart rate 88 /min Katie Aceves RANCH HAND SUPERVISOR Work Phone: [facility] 08-01-2024 17:40-0400 Respiratory rate 18 /min Katie Aceves RANCH HAND SUPERVISOR Work Phone: [facility] 08-01-2024 17:40-0400 SaO2% (BldA) [Mass fraction] 98 % Katie Aceves RANCH HAND SUPERVISOR Work Phone: [facility] 08-01-2024 17:40-0400 Systolic blood pressure 120 mm[Hg] Katie Aceves RANCH HAND SUPERVISOR Work Phone: [facility] 07-15-2024 15:13-0400 Body height 160 cm Chey Aragon MD Work Phone: [facility] 07-15-2024 15:13-0400 Body mass index (BMI) [Ratio] 30.65 kg/m2 Chey Aragon MD Work Phone: [facility] 07-15-2024 15:13-0400 Body weight 78.47 kg Chey Aragon MD Work Phone: [facility] 07-15-2024 15:13-0400 Diastolic blood pressure 80 mm[Hg] Chey Aragon MD Work Phone: [facility] 07-15-2024 15:13-0400 Heart rate 100 /min Chey Aragon MD Work Phone: [facility] 07-15-2024 15:13-0400 SaO2% (BldA) [Mass fraction] 98 % Chey Aragon MD Work Phone: [facility] 07-15-2024 15:13-0400 Systolic blood pressure 108 mm[Hg] Chey Aragon MD Work Phone: [facility] 05-17-2024 15:05-0500 Body height 160 cm Katie Devinevalentine RANCH HAND SUPERVISOR Work Phone: [facility] 05-17-2024 15:05-0500 Body mass index (BMI) [Ratio] 32.06 kg/m2 Katie Devineburg RANCH HAND SUPERVISOR Work Phone: [facility] 05-17-2024 15:05-0500 Body temperature 100.51 [degF] Katie Aceves RANCH HAND SUPERVISOR Work Phone: [facility] 05-17-2024 15:05-0500 Body weight 82.1 kg Katie Aceves RANCH HAND SUPERVISOR Work Phone: [facility] 05-17-2024 15:05-0500 Diastolic blood pressure 70 mm[Hg] Katie Vegasenburg RANCH HAND SUPERVISOR Work Phone: [facility] 05-17-2024 15:05-0500 Heart rate 101 /min Katie Devineburg RANCH HAND SUPERVISOR Work Phone: [facility] 05-17-2024 15:05-0500 Respiratory rate 20 /min Katie Devineburg RANCH HAND SUPERVISOR Work Phone: [facility] 05-17-2024 15:05-0500 SaO2% (BldA) [Mass fraction] 99 % Katie Devineburg RANCH HAND SUPERVISOR Work Phone: [facility] 05-17-2024 15:05-0500 Systolic blood pressure 110 mm[Hg] Katie Devineburg RANCH HAND SUPERVISOR Work Phone: [facility] 05-04-2024 10:52-0500 Body height 160.5 cm Zhou Lee MD Work Phone: [facility] 05-04-2024 10:52-0500 Body mass index (BMI) [Ratio] 32.34 kg/m2 Zhou Lee MD Work Phone: [facility] 05-04-2024 10:52-0500 Body weight 83.3 kg Zhou Lee MD Work Phone: [facility] 05-04-2024 10:52-0500 Respiratory rate 18 /min Zhou Lee MD Work Phone: [facility] 03-22-2024 15:40-0500 Body temperature 97.3 [degF] Zhou Lee MD Work Phone: [facility] 03-22-2024 15:40-0500 Diastolic blood pressure 80 mm[Hg] Zhou Lee MD Work Phone: [facility] 03-22-2024 15:40-0500 Heart rate 70 /min Zhou Lee MD Work Phone: [facility] 03-22-2024 15:40-0500 Respiratory rate 20 /min Zhou Lee MD Work Phone: [facility] 03-22-2024 15:40-0500 SaO2% (BldA) [Mass fraction] 99 % Zhou Lee MD Work Phone: [facility] 03-22-2024 15:40-0500 Systolic blood pressure 100 mm[Hg] Zhou Lee MD Work Phone: [facility] 03-22-2024 12:38-0500 Body height 160.5 cm Zhou Lee MD Work Phone: [facility] 03-22-2024 12:38-0500 Body mass index (BMI) [Ratio] 32.34 kg/m2 Zhou Lee MD Work Phone: [facility] 03-22-2024 12:38-0500 Body weight 83.3 kg Zhou Lee MD Work Phone: [facility] 02-10-2024 10:31-0400 Body mass index (BMI) [Ratio] 33.48 kg/m2 Serene Alfred RANCH HAND SUPERVISOR Work Phone: [facility] 02-10-2024 10:31-0400 Body weight 85.73 kg Serene Alfred RANCH HAND SUPERVISOR Work Phone: [facility] 02-10-2024 10:31-0400 Diastolic blood pressure 88 mm[Hg] Serene Alfred RANCH HAND SUPERVISOR Work Phone: [facility] 02-10-2024 10:31-0400 Heart rate 76 /min Serene Alfred RANCH HAND SUPERVISOR Work Phone: [facility] 02-10-2024 10:31-0400 Systolic blood pressure 110 mm[Hg] Serene Alfred RANCH HAND SUPERVISOR Work Phone: [facility] 01-27-2024 09:50-0400 Body height 160 cm Serene Alfred RANCH HAND SUPERVISOR Work Phone: [facility] 01-27-2024 09:50-0400 Body mass index (BMI) [Ratio] 34.19 kg/m2 Serene Alfred RANCH HAND SUPERVISOR Work Phone: [facility] 01-27-2024 09:50-0400 Body temperature 97.39 [degF] Serene Alfred RANCH HAND SUPERVISOR Work Phone: [facility] 01-27-2024 09:50-0400 Body weight 87.54 kg Serene Alfred RANCH HAND SUPERVISOR Work Phone: [facility] 01-27-2024 09:50-0400 Diastolic blood pressure 70 mm[Hg] Serene Alfred RANCH HAND SUPERVISOR Work Phone: [facility] 01-27-2024 09:50-0400 Systolic blood pressure 116 mm[Hg] Serene Alfred RANCH HAND SUPERVISOR Work Phone: [facility] 11-18-2023 11:15-0400 Diastolic blood pressure 66 mm[Hg] Sharath Lambert MD Work Phone: [facility] 11-18-2023 11:15-0400 Heart rate 68 /min Sharath Lambert MD Work Phone: [facility] 11-18-2023 11:15-0400 Respiratory rate 22 /min Sharath Lambert MD Work Phone: [facility] 11-18-2023 11:15-0400 SaO2% (BldA) [Mass fraction] 100 % Sharath Lambert MD Work Phone: [facility] 11-18-2023 11:15-0400 Systolic blood pressure 103 mm[Hg] Sharath Lambert MD Work Phone: [facility] 11-18-2023 10:53-0400 Body temperature 97.7 [degF] Sharath Lambert MD Work Phone: [facility] 11-18-2023 09:53-0400 Body height 160 cm Sharath Lambert MD Work Phone: [facility] 11-18-2023 09:53-0400 Body mass index (BMI) [Ratio] 32.97 kg/m2 Sharath Lambert MD Work Phone: [facility] 11-18-2023 09:53-0400 Body weight 84.41 kg Sharath Lambert MD Work Phone: [facility] 08-06-2023 11:43-0400 Body height 160 cm Christine Mckeon MD Work Phone: [facility] 08-06-2023 11:43-0400 Body mass index (BMI) [Ratio] 37.91 kg/m2 Christine Mckeon MD Work Phone: [facility] 08-06-2023 11:43-0400 Body weight 97.07 kg Christine Mckeon MD Work Phone: [facility] 08-06-2023 11:43-0400 Diastolic blood pressure 76 mm[Hg] Christine Mckeon MD Work Phone: [facility] 08-06-2023 11:43-0400 Heart rate 101 /min Christine Mckeon MD Work Phone: [facility] 08-06-2023 11:43-0400 SaO2% (BldA) [Mass fraction] 98 % Christine Mckeon MD Work Phone: [facility] 08-06-2023 11:43-0400 Systolic blood pressure 102 mm[Hg] Christine Mckeon MD Work Phone: [facility] 08-06-2023 09:34-0400 Body height 160 cm Teresa Franciscachucky CUTTING AND PRINTING MACHINE OPERATOR-BASKET MAKER Work Phone: [facility] 08-06-2023 09:34-0400 Body mass index (BMI) [Ratio] 37.98 kg/m2 Teresa Franciscamaurilioff CUTTING AND PRINTING MACHINE OPERATOR-BASKET MAKER Work Phone: [facility] 08-06-2023 09:34-0400 Body weight 97.25 kg Teresa Verhoff CUTTING AND PRINTING MACHINE OPERATOR-BASKET MAKER Work Phone: [facility] 08-06-2023 09:34-0400 Diastolic blood pressure 76 mm[Hg] Teresa Espinosahoff CUTTING AND PRINTING MACHINE OPERATOR-BASKET MAKER Work Phone: [facility] 08-06-2023 09:34-0400 Heart rate 75 /min Teresa Gerber CUTTING AND PRINTING MACHINE OPERATOR-BASKET MAKER Work Phone: [facility] 08-06-2023 09:34-0400 SaO2% (BldA) [Mass fraction] 98 % Teresa Gerber CUTTING AND PRINTING MACHINE OPERATOR-BASKET MAKER Work Phone: [facility] 08-06-2023 09:34-0400 Systolic blood pressure 102 mm[Hg] Teresa Espinosahoff CUTTING AND PRINTING MACHINE OPERATOR-BASKET MAKER Work Phone: [facility] 05-26-2023 17:17-0500 Body height 160 cm Rubia Hernandez RANCH HAND SUPERVISOR Work Phone: [facility] 05-26-2023 17:17-0500 Body mass index (BMI) [Ratio] 34.97 kg/m2 Rubia Hernandez RANCH HAND SUPERVISOR Work Phone: [facility] 05-26-2023 17:17-0500 Body weight 89.54 kg Rubia Hernandez RANCH HAND SUPERVISOR Work Phone: [facility] 05-26-2023 17:17-0500 Diastolic blood pressure 60 mm[Hg] Rubia Hernandez RANCH HAND SUPERVISOR Work Phone: [facility] 05-26-2023 17:17-0500 Heart rate 104 /min Rubia Hernandez RANCH HAND SUPERVISOR Work Phone: [facility] 05-26-2023 17:17-0500 SaO2% (BldA) [Mass fraction] 99 % Rubia Hernandez RANCH HAND SUPERVISOR Work Phone: [facility] 05-26-2023 17:17-0500 Systolic blood pressure 110 mm[Hg] Rubia Hernandez RANCH HAND SUPERVISOR Work Phone: [facility] 04-24-2023 13:59-0500 Body height 160 cm Ruchi Carmona MD Work Phone: [facility] 04-24-2023 13:59-0500 Diastolic blood pressure 68 mm[Hg] Ruchi Carmona MD Work Phone: [facility] 04-24-2023 13:59-0500 Heart rate 81 /min Ruchi Carmona MD Work Phone: [facility] 04-24-2023 13:59-0500 Systolic blood pressure 106 mm[Hg] Ruchi Carmona MD Work Phone: [facility] 02-25-2023 12:32-0500 Body height 160 cm Kye Solis MD Work Phone: [facility] 02-25-2023 12:32-0500 Body mass index (BMI) [Ratio] 32.06 kg/m2 Kye Solis MD Work Phone: [facility] 02-25-2023 12:32-0500 Body weight 82.1 kg Kye Solis MD Work Phone: [facility] 02-25-2023 12:32-0500 Diastolic blood pressure 70 mm[Hg] Kye Solis MD Work Phone: [facility] 02-25-2023 12:32-0500 Heart rate 74 /min Kye Solis MD Work Phone: [facility] 02-25-2023 12:32-0500 SaO2% (BldA) [Mass fraction] 97 % Kye Solis MD Work Phone: [facility] Comment on above: RA 02-25-2023 12:32-0500 Systolic blood pressure 118 mm[Hg] Kye Solis MD Work Phone: [facility] 01-26-2023 10:50-0400 Body height 161.1 cm Enmanuel Osuna MD Work Phone: [facility] 01-26-2023 10:50-0400 Body mass index (BMI) [Ratio] 31.25 kg/m2 Enmanuel Osuna MD Work Phone: [facility] 01-26-2023 10:50-0400 Body temperature 98.1 [degF] Enmanuel Osuna MD Work Phone: [facility] 01-26-2023 10:50-0400 Body weight 81.1 kg Enmanuel Osuna MD Work Phone: [facility] 01-26-2023 10:50-0400 Diastolic blood pressure 65 mm[Hg] Enmanuel Osuna MD Work Phone: [facility] 01-26-2023 10:50-0400 Heart rate 73 /min Enmanuel Osuna MD Work Phone: [facility] 01-26-2023 10:50-0400 Respiratory rate 20 /min Enmanuel Osuna MD Work Phone: [facility] 01-26-2023 10:50-0400 Systolic blood pressure 100 mm[Hg] Enmanuel Osuna MD Work Phone: [facility] 01-26-2023 09:51-0400 Body height 161.1 cm Zhou Lee MD Work Phone: [facility] 01-26-2023 09:51-0400 Body mass index (BMI) [Ratio] 31.25 kg/m2 Zhou Lee MD Work Phone: [facility] 01-26-2023 09:51-0400 Body weight 81.1 kg Zhou Lee MD Work Phone: [facility] 01-26-2023 09:51-0400 Respiratory rate 20 /min Zhou Lee MD Work Phone: [facility] 01-26-2023 08:15-0400 Body height 161.1 cm Ioana Otero MD Work Phone: [facility] 01-26-2023 08:15-0400 Body mass index (BMI) [Ratio] 31.25 kg/m2 Ioana Otero MD Work Phone: [facility] 01-26-2023 08:15-0400 Body temperature 98.2 [degF] Ioana Otero MD Work Phone: [facility] 01-26-2023 08:15-0400 Body weight 81.1 kg Ioana Otero MD Work Phone: [facility] 01-26-2023 08:15-0400 Diastolic blood pressure 77 mm[Hg] Ioana Otero MD Work Phone: [facility] 01-26-2023 08:15-0400 Heart rate 74 /min Ioana Otero MD Work Phone: [facility] 01-26-2023 08:15-0400 Systolic blood pressure 110 mm[Hg] Ioana Otero MD Work Phone: [facility] 12-26-2022 12:00-0400 Body weight 81.6 kg Connie Mac RN [facility] 05-05-2022 11:04-0500 Body height 162 cm Zhou Lee MD Work Phone: [facility] Comment on above: prior reading 05-05-2022 11:04-0500 Body mass index (BMI) [Ratio] 31.09 kg/m2 Zhou Lee MD Work Phone: [facility] 05-05-2022 11:04-0500 Body weight 81.6 kg Zhou Lee MD Work Phone: [facility] 05-05-2022 11:04-0500 Heart rate 84 /min Zhou Lee MD Work Phone: [facility] 08-13-2021 18:15-0400 Diastolic blood pressure 76 mm[Hg] Jessie Lenz MD Work Phone: [facility] 08-13-2021 18:15-0400 Heart rate 86 /min Jessie Lenz MD Work Phone: [facility] 08-13-2021 18:15-0400 Systolic blood pressure 116 mm[Hg] Jessie Lenz MD Work Phone: [facility] 08-13-2021 16:15-0400 Body temperature 99.1 [degF] Jessie Lenz MD Work Phone: [facility] 08-13-2021 11:30-0400 Respiratory rate 16 /min Jessie Lenz MD Work Phone: [employer] 08-13-2021 11:30-0400 SaO2% (BldA) [Mass fraction] 99 % Jessie Lenz MD Work Phone: [employer] 08-13-2021 08:15-0400 Body height 164 cm Jessie Lenz MD Work Phone: [employer] 08-13-2021 08:15-0400 Body mass index (BMI) [Percentile] Per age and sex 95.01 % Jessie Lenz MD Work Phone: [employer] 08-13-2021 08:15-0400 Body mass index (BMI) [Ratio] 31.6 kg/m2 Jessie Lenz MD Work Phone: [employer] 08-13-2021 08:15-0400 Body weight 85 kg Jessie Lenz MD Work Phone: [employer] Encounters Encounter Date Encounter Type Care Provider Facility Start: 01-17-2025 Evaluation and manag ement of inpatient CLIFFORD RODAS Facility:[facility] Start: 12-28-2024 End: 12-28-2024 Clinisync Result Encounter Generic External Data Provider [facility] External Department Unsolicited Start: 12-28-2024 End: 12-28-2024 Clinisync Result Encounter Generic External Data Provider [facility] External Department Unsolicited Start: 12-26-2024 ambulatory CLIFFORD RODAS Facili ty:[facility] Start: 12-26-2024 End: 12-26-2024 Office outpatient visit 25 minutes Clifford Rodas MD Work Phone: Division of [facility] Rectal Surgery Comment on above: Anorectal stricture (Primary Dx) Start: 12-26-2024 End: 12-26-2024 ambulatory MILIND FITCH Facility:[facility] Comment on above: Anorectal stricture (Primary Dx) Start: 12-09-2024 End: 12-09-2024 Clinisync Result Encounter Generic External Data Provider [facility] External Department Unsolicited Start: 12-09-2024 End: 12-09-2024 Clinisync Result Encounter Generic External Data Provider [facility] External Department Unsolicited Start: 12-09-2024 ambulatory MILIND FITCH Facility:[facility] Start: 11-14-2024 ambulatory YVETTE Ventura ZAID Jesse ility:[facility] Start: 11-02-2024 End: 11-02-2024 ambulatory CLIFFORD RODAS Facility:[facility] Start: 11-02-2024 End: 11-02-2024 Subsequent hospital visit by physician Clifford Rodas MD Work Phone: [facility] Comment on above: Crohn's disease of b ot small and large intestine with complication Start: 10-31-2024 End: 11-01-2024 Clinisync Result Encounter Generic External Data Provider [facility] External Department Unsolicited Start: 10-31-2024 End: 11-01-2024 Clinisync Result Encounter Generic External Data Provider [facility] External Department Unsolicited Start: 10-26-2024 End: 10-28-2024 ambulatory CLIFFORD ROD[facility] Start: 10-26-2024 End: 10-28-2024 Subsequent hospital visit by physician [facility] [address] Rm [address] [facility] [address] Scan Comment on above: Crohn's disease of b ot small and large intestine with complication (HCC) Start: 10-26-2024 ambulatory CLIFFORD Hollins ty:[facility] Start: 10-17-2024 End: 10-17-2024 Office consultation new/estab patient 80 min Clifford Rodas MD Work Phone: Division of Colon & Rectal Surgery Comment on above: Crohn's disease of b ot small and large intestine with complication (Primary Dx) Start: 10-17-2024 ambulatory CLIFFORD Hollins ty:[facility] Start: 09-26-2024 End: 09-26-2024 Office outpatient visit 25 minutes Serene Alfred RANCH HAND SUPERVISOR Work Phone: [facility] Comment on above: Acute cough (Primary Dx); Acute bilateral otitis media; Acute viral bronchitis; Wheezing Start: 09-26-2024 End: 09-26-2024 ambulatory SERENE ALFRED Not Available Start: 09-22-2024 End: 09-22-2024 Office outpatient visit 15 minutes Milind Fitch CUTTING AND PRINTING MACHINE OPERATOR-BASKET MAKER Work Phone: [facility] [place] Comment on above: Crohn's disease of b oth small and large intestine with complication (Primary Dx) Start: 09-22-2024 ambulatory SELF SELF Facility:[facility] Start: 09-12-2024 ambulatory MILIND FITCH Facility:[facility] Start: 09-06-2024 [facility] Start: 09-06-2024 End: 09-06-2024 Subsequent hospital visit by physician Tu Dalton MD Work Phone: [facility] [place] Comment on above: Arrived Start: 08-01-2024 End: 08-01-2024 Office outpatient visit 25 minutes Katie Aceves RANCH HAND SUPERVISOR Work Phone: [facility] Comment on above: Immunocompromised pa tient ([facility]) (Primary Dx); Nonintractable episodic headache, unspecified headache type; 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 Start: 08-01-2024 End: 08-01-2024 ambulatory KATIE A HACKENBURG Not Available Start: 08-01-2024 End: 08-01-2024 Bamboo flowsheet Katie A Hackenburg RANCH HAND SUPERVISOR Work Phone: [facility] Start: 08-01-2024 End: 08-01-2024 Bamboo flowsheet Katie A Hajessicaenburg RANCH HAND SUPERVISOR Work Phone: [facility] Start: 07-27-2024 End: 07-27-2024 ambulatory RUBIA HERNANDEZ Not Available Start: 07-20-2024 End: 07-20-2024 Orders Only Rubia Hernandez RANCH HAND SUPERVISOR Work Phone: [facility] Comment on [...] FM Start: 07-13-2024 End: 07-13-2024 ambulatory JELLY [facility] Start: 06-22-2024 ambulatory CHEY ARAGON [facility] Start: 06-06-2024 End: 06-06-2024 Clinisync Result Encounter [...] External Department Unsolicited Start: 05-26-2024 ambulatory MILIND CESPEDESFernanda Facility:[facility] Start: 05-18-2024 End: 05-18-2024 Telephone encounter Chey Aragon MD Work Phone: [facility] Start: 05-17-2024 End: 05-17-2024 Office outpatient visit 15 minutes Katie Lorenzo Aceves RANCH HAND SUPERVISOR Work Phone: [facility] Comment on above: Viral URI (Primary D x); Fever, unspecified fever cause Start: 05-17-2024 End: 05-17-2024 ambulatory KATIE A KETAN Not Available Start: 05-17-2024 End: 05-17-2024 Bamboo flowsheet Katie A Ketan RANCH HAND SUPERVISOR Work Phone: [facility] Start: 05-17-2024 End: 05-17-2024 Bamboo flowsheet Katie Aceves RANCH HAND SUPERVISOR Work Phone: [facility] Start: 05-04-2024 ambulatory CHEY Luba MAHESH [facility] Start: 05-04-2024 End: 05-04-2024 Office outpatient visit 15 minutes Zhou Lee MD Work Phone: [facility] Comment on above: Surgical Followup Start: 04-28-2024 End: 04-28-2024 Telephone encounter Payton FraserJenny Campo APRN Work Phone: [facility] [place] Start: 03-22-2024 End: 03-22-2024 ambulatory CHEY Luba MAHESH [facility] Start: 03-22-2024 End: 03-22-2024 Subsequent hospital visit by physician Zhou Lee MD Work Phone: [facility] Start: 03-15-2024 End: 03-15-2024 Telephone encounter Zhou Lee MD Work Phone: [facility] [place] Comment on above: Change Appointment Start: 03-03-2024 End: 03-03-2024 Telephone encounter Zhou Lee MD Work Phone: [facility] [place] Comment on above: Schedule Procedure Start: 03-02-2024 End: 03-02-2024 ambulatory Naima Coates CPNP-PC Facility:[facility] Start: 02-29-2024 End: 02-29-2024 ambulatory CHEY Luba MAHESH [facility] Start: 02-29-2024 End: 02-29-2024 Subsequent hospital visit by physician [facility] [place] Comment on above: Chronic sinusitis, u nspecified location Start: 02-16-2024 Telephone encounter Andressa Mandujano RN [facility] [place] Comment on above: Case Discussion Start: 02-10-2024 End: 02-10-2024 Bamboo flowsheet Serene Alfred RANCH HAND SUPERVISOR Work Phone: [facility] Start: 02-10-2024 End: 02-10-2024 Bamboo flowsheet Serene Alfred RANCH HAND SUPERVISOR Work Phone: [facility] Start: 02-10-2024 End: 02-10-2024 Office outpatient visit 15 minutes Serene Alfred RANCH HAND SUPERVISOR Work Phone: [facility] Comment on above: Anxiety (Primary Dx) Start: 02-10-2024 End: 02-10-2024 ambulatory SERENE ALFRED Not Available Start: 01-27-2024 End: 01-27-2024 Bamboo flowsheet Serene Alfred RANCH HAND SUPERVISOR Work Phone: [facility] Start: 01-27-2024 End: 01-27-2024 Bamboo flowsheet Serene Alfred RANCH HAND SUPERVISOR Work Phone: [facility] Start: 01-27-2024 End: 01-27-2024 Patient encounter status Serene Alfred RANCH HAND SUPERVISOR Work Phone: [facility] Work Phone: Start: 01-27-2024 End: 01-27-2024 Periodic preventive med est patient 18-39 yrs Serene Alfred RANCH HAND SUPERVISOR Work Phone: [facility] Comment on above: Encounter for [...] small and large intestine with unspecified complications ([facility]/HCC) Start: 01-27-2024 End: 01-27-2024 ambulatory SERENE AMBROCIOPATRICK Not Available Start: 11-18-2023 End: 11-18-2023 Subsequent hospital visit by physician Sharath Lambert MD Work Phone: [facility] [place] Comment on above: Arrived Start: 11-09-2023 End: 11-09-2023 ambulatory CHEY ARAGON [facility] Start: 10-07-2023 End: 10-07-2023 ambulatory ALFREDO L FLORO Not Available Start: 09-03-2023 End: 09-03-2023 ambulatory Alfredo L Floro Facility:[facility] Start: 09-03-2023 End: 09-03-2023 ambulatory CUTTING AND PRINTING MACHINE OPERATOR Alfredo Rhondao Work Phone: [facility] Work Phone: Start: 09-03-2023 End: 09-03-2023 Departed Referred CUTTING AND PRINTING MACHINE OPERATOR Alfredo Rhondao Work Phone: [facility] Start: 08-06-2023 End: 08-06-2023 Office consultation new/estab patient 80 min Christine Mckeon MD Work Phone: [facility] Comment on above: Orbital myositis, un specified laterality (Primary Dx); Crohn's disease of small and large intestines with complication; Immunosuppressed status; Chronic pansinusitis; Pulmonary nodules; Psoriasis; Less than 8 weeks gestation of ; Left leg swelling; Psoriasis of scalp Start: 08-06-2023 End: 08-06-2023 Office outpatient visit 15 minutes Teresa Gerber CUTTING AND PRINTING MACHINE OPERATOR-BASKET MAKER Work Phone: [facility] [place] Comment on above: Crohn's disease in r emission (Primary Dx) Start: 07-03-2023 End: 07-04-2023 ambulatory ALFREDO FLORO [facility] Start: 06-01-2023 Orders Only Marjorie Bautista RN Matern al- [facility] Comment on above: Maternal Crohn's dis ease affecting in second trimester (CMS-HCC) (Primary Dx); History of chronic ulcerative colitis Start: 05-29-2023 End: 05-30-2023 [facility] Start: 05-26-2023 End: 05-26-2023 Office outpatient visit 25 minutes Rubia Hernandez NP Work Phone: [facility] Comment on above: Viral URI (Primary D x); 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); Immunodeficiency, unspecified (D84.9); 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); Crohns disease of both small and large intestine with unspecified complications (K50.819); Bilateral impacted cerumen Start: 05-26-2023 Bamboo flowsheet Rubia Hernandez RANCH HAND SUPERVISOR Work Phone: [facility] Start: 05-26-2023 Bamboo flowsheet Rubia Hernandez RANCH HAND SUPERVISOR Work Phone: [facility] Start: 04-27-2023 Orders Only Connie Graham CMA [facility] rnal- Medicine at [facility] Comment on above: Maternal Crohn's dis ease affecting in second trimester (CMS-HCC) (Primary Dx) Start: 04-24-2023 End: 04-25-2023 [facility] Start: 04-24-2023 End: 04-24-2023 Office outpatient new 45 minutes Ruchi Carmona MD Work Phone: Maternal- [facility] Comment on above: Maternal Crohn's dis ease affecting in second trimester (CMS-HCC) (Primary Dx); History of chronic ulcerative colitis; 19 weeks gestation of Start: 04-16-2023 Chart abstracting Scanning Pro vider External Maternal- [facility] Start: 04-03-2023 End: 04-03-2023 Clinical Support Encounter [facility] Ibd Nurse [facility] Comment on above: Crohn's disease of b oth small and large intestine with complication (Primary Dx) Start: 04-02-2023 Chart abstracting Scanning Pro vider External Maternal- [facility] Start: 03-03-2023 Telephone encounter Javier Agee MD Work Phone: [facility] [place] Comment on above: Case Discussion (Tra [facility]ed to adult GI at [facility]) Start: 02-25-2023 End: 02-25-2023 Office consultation new/estab patient 80 min Kye Solis MD Work Phone: [facility] [place] Comment on above: Crohn's disease of b oth small and large intestine with complication (Primary Dx); Orbital myositis, unspecified laterality; 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 gestation of Start: 01-26-2023 End: 01-26-2023 Subsequent hospital visit by physician Enmanuel Osuna MD Work Phone: [facility] Comment on above: Iron deficiency Start: 01-26-2023 End: 01-26-2023 Office outpatient visit 15 minutes Zhou Lee MD Work Phone: [facility] Comment on above: Sinus Problem (F/u r ecurrent sinusitis) Start: 01-26-2023 End: 01-26-2023 Office outpatient visit 40 minutes Ioana Otero MD Work Phone: [facility] Comment on above: FOLLOW-UP Start: 01-21-2023 Telephone encounter Ioana liz MD Work Phone: [facility] Comment on above: Results Start: 01-09-2023 Telephone encounter Alison oMore RN [facility] Comment on above: Update Start: 12-23-2022 Refill Javier todd MD Work Phone: [facility] Comment on above: Refill Request Start: 12-18-2022 ambulatory Yoana alba [facility] Start: 12-18-2022 Coordination of care plan Angella Head [facility] Comment on above: Primary Insurance: P rior Authorization Coordination for Gastroenterology Prior Authorization Start: 12-17-2022 Telephone encounter Connie Mac RN [facility] Comment on above: Coordination Of Care (Rituximab) Start: 11-21-2022 Telephone encounter Alyssa Pierre RN [facility] Comment on above: Change Appointment Start: 09-24-2022 Telephone encounter Zhou peres MD Work Phone: [facility] Comment on above: Schedule Surgery Start: 09-04-2022 Documentation procedure Manjeet Lee MD Work Phone: [facility] Comment on above: Per [facility] R[facility] Letter # [phone], [facility] requested clinicals be sent. Clinicals sent Start: 07-16-2022 Documentation procedure Ginna Agee MD Work Phone: [facility] Comment on above: Faxed [facility] reapplica tion to [phone]. Scanned into the chart. Start: 05-05-2022 End: 05-05-2022 Postop follow up visit related to original px Zhou Lee MD Work Phone: [facility] Comment on above: Orbital myositis, un specified laterality (Primary Dx); Chronic sinusitis, unspecified location Start: 04-08-2022 Telephone encounter Brielle Teran RN [facility] 6D Comment on above: Surgical Followup Start: 02-06-2022 Telephone encounter Mitch Banuelos MD Work Phone: [facility] 6D Comment on above: Pre-certification Start: 11-19-2021 End: 11-19-[address] DOCTOR LIM Facility: Start: 08-13-2021 End: 08-13-2021 ambulatory JESSIE LENZ [facility] Start: 08-13-2021 End: 08-13-2021 Subsequent hospital visit by physician Jessie Lenz MD Work Phone: [facility]/B Pediatrics Start: 07-09-2021 End: 07-10-2021 ambulatory SHAKIRA ORANTES [facility] Start: 07-09-2021 End: 07-09-2021 Subsequent hospital visit by physician Otilia Sinclair Work Phone: [facility] Start: 06-27-2021 End: 06-28-[address] DOCTOR LIM Facility:[facility]1 Start: 04-30-2021 End: 05-01-[address] DOCTOR LIM Facility:[facility] Procedures Date Procedure Procedure Detail Performing Clinician Start: 12-28-2024 METRO IRON AND TIBC Generic External Ty a Provider Start: 12-09-2024 ALL CBC WITH AUTO DIFF Generic External Data Provider Start: 11-02-2024 CONTINUOUS CARDIAC MONITORING STRIP Other Other Start: 11-02-2024 CONTINUOUS CARDIAC MONITORING STRIP Other Other Start: 11-02-2024 End: 11-02-2024 Gonadotropin chorionic qualitative Clifford Rodas MD Work Phone: Start: 10-31-2024 Ct abdomen & pelvis w/contrast material Generic External Data Provider Start: 09-06-2024 Colonoscopy flx dx w/collj spec when pfrmd Milind Fitch CUTTING AND PRINTING MACHINE OPERATOR-BASKET MAKER Work Phone: Start: 09-06-2024 Choriogonadotropin ( test) [Presence] in Urine Jesse Baumann MD Work Phone: Start: 06-06-2024 C. DIFFICILE PCR Generic External Ty a Provider Start: 06-03-2024 ALL CBC WITH AUTO DIFF Generic External Data Provider Start: 05-17-2024 STATUS COVID-19/FLU Katie Lorenzo cerda RANCH HAND SUPERVISOR Work Phone: Start: 03-22-2024 Choriogonadotropin ( test) [Presence] in Serum or Plasma Zhou Lee MD Work Phone: Start: 02-29-2024 Ct maxillofacial w/o contrast material Naima Coates CPNP-PC Work Phone: Start: 11-18-2023 Colonoscopy flx dx w/collj spec when pfrmd Milind Fitch CUTTING AND PRINTING MACHINE OPERATOR-BASKET MAKER Work Phone: Start: 11-18-2023 Choriogonadotropin ( test) [Presence] in Urine Sharath Lambert MD Work Phone: Start: 08-06-2023 Urnls dip stick/tablet rgnt auto w/o microscopy Christine Mckeon MD Work Phone: Start: 05-26-2023 Removal impacted cerumen irrigation/lvg unilat Rubia Finneyreuben RANCH HAND SUPERVISOR Work Phone: Start: 03-04-2023 CHLAMYDIA/GC BY PCR [...] procedure 02/24/2025 2:15 PM EST Office Visit [facility] [address] [phone] Marilou Ortiz MD [address] [id number] Return in about 6 months (around 02/19/2025). [facility] Comment on above: Return in about 6 months (around 02/20/20). Start: 02-20-2025 End: 02-20-2025 Patient encounter procedure 02/20/2025 11:00 AM EST Office Visit Division of Colon & Rectal Surgery [address] [address] Yvette Mar, CUTTING AND PRINTING MACHINE OPERATOR-BASKET MAKER [address] [phone] Division of Colon & Rectal Surgery Start: [...] LAPAROSCOPIC Start: 01-05-2025 End: 01-05-2025 Anesthesia consultation [facility] Start: 01-02-2025 End: 01-02-2025 Clinical Support Encounter 01/02/2025 1:00 PM EDT Clinical Support Encounter [facility] [address] [phone] [facility] Start: 12-26-2024 End: 12-26-2024 Patient encounter procedure 12/26/2024 10:30 AM EDT Office Visit Division of Colon & Rectal Surgery [address] [phone] Yvette Mar CUTTING AND PRINTING MACHINE OPERATOR-BASKET MAKER 2049 [place], [place] [phone] Division of Colon & Rectal Surgery Start: 12-12-2024 COVID-19 VACCINE ( season) COVID-19 VACCINE ( season) [facility] Start: 12-12-2024 Influenza vaccination [facility] Start: 12-09-2024 End: 12-09-2024 Telemedicine consultation with patient 12/09/2024 10:00 AM EDT Telemedicine [facility] [address] [place] [address] [place] [address] Milind Fitch, CUTTING AND PRINTING MACHINE OPERATOR-BASKET MAKER [address] [place] [phone] [facility] [place] Start: 11-11-2024 Influenza vaccination Flu vaccine (#1) [facility] Start: 11-08-2024 End: 11-08-2024 Admission to same day surgery center 11/08/2024 11:15 AM EDT - 11/08/2024 12:45 PM EDT Surgery [facility] [address] [place] [address] Clifford Rodas MD [address] [place] [address] EXAM UNDER ANESTHESIA ANORECTAL [facility] Comment [...] Hospital Encounter [facility] [address] [place] [address] Clifford Rodas MD [address] [place] [address] Crohn's disease of both small and large intestine with complication [facility] Comment on above: Crohn's disease of both small and large intestine with complication Start: 10-26-2024 End: 10-26-2024 Anesthesia consultation 10/26/2024 3:00 PM EDT Pre-Operative Nurse Assessment [facility] [address] [place] [phone] Clifford Rodas MD [address] [place] [address] [facility] Start: 10-24-2024 End: 10-17-[address] ENTEROGRAPHY Imaging Routine Crohn's disease of both small and large intestine with complication Expected: 10/24/2024, Expires: 10/17/2025 [facility] Comment on above: Expected: 10/24/2024, Expires: Start: 10-17-2024 End: 10-17-2025 Choriogonadotropin ( test) [Presence] in Urine HCG QUALITATIVE, URINE Fluids Routine Crohn's disease of both small and large intestine with complication Expected: 10/17/2024, Expires: 10/17/2025 [facility] Comment on above: Expected: 10/17/2024, Expires: Start: 10-17-2024 End: 10-17-2024 Patient encounter procedure 10/17/2024 10:30 AM EDT Office Visit Division of Colon & Rectal Surgery [address] [facility] [address] [place] [address] Clifford Rodas MD [address] [place] [address] Division of Colon & Rectal Surgery Start: 09-29-2024 End: 09-29-2024 Patient encounter procedure 09/29/2024 1:45 PM EDT Office Visit [facility] ALVARADO [address] [address] [place] [phone] Daniela Beckford DO [address] [place] [address] [facility] ALVARADO Start: 09-26-2024 End: 09-26-2025 XR Chest 2 Views [facility] Work Phone: Comment on above: Expected: 09/26/2024, Expires: Start: 09-22-2024 End: 09-22-2024 Patient encounter procedure 09/22/2024 2:30 PM EDT Office Visit [facility] [place] [address] [facility] [place] [address] Milind Fitch, CUTTING AND PRINTING MACHINE OPERATOR-BASKET MAKER [address] [place] [address] [facility] [place] Start: 09-22-2024 End: 09-22-2025 METHYLMALONIC ACID [facility] Comment on above: Expected: 09/22/2024, Expires: Start: 09-22-2024 End: 09-22-2025 VITAMIN D (25-HYDROXY,TOTAL) [facility] Comment on above: Expected: 09/22/2024, Expires: Start: 09-22-2024 End: 09-22-2025 ZINC, SERUM [facility] Comment on above: Expected: 09/22/2024, Expires: Start: 08-01-2024 End: 08-01-2024 Patient encounter procedure 08/01/2024 6:00 PM EDT Office Visit [facility] [address] [place] [address] Katie Aceves NP [address] [place] [address] Arrived [facility] Comment on above: Arrived Start: 07-20-2024 End: 07-20-2025 CT Head WO contrast CT head wo IV contrast Imaging Routine Nonintractable episodic headache, unspecified headache type Expected: 07/20/2024, Expires: 07/20/2025 [facility] Work Phone: Comment on above: Expected: 07/20/2024, Expires: Start: 07-15-2024 End: 07-15-2024 Patient encounter procedure 07/15/2024 3:30 PM EDT Office Visit [facility] [address] [place] [phone] Chey Aragon MD [address] [facility] [place] [address] Arrived [facility] Comment on above: Arrived Start: 06-22-2024 End: 06-22-2024 Patient encounter procedure 06/22/2024 12:30 PM EDT Appointment [facility] [address] [place] [address] Zhou Lee MD Otolaryngology Section [address] [phone] Discharge Disposition: Home [facility] Start: 06-01-2024 End: 06-01-2024 US MFM with or without consult US MFM with or without consult Imaging Routine Maternal Crohn's disease affecting in second trimester ([facility]) History of chronic ulcerative colitis Expected: 06/01/2024 (Approximate), Expires: 06/01/2024 [facility] Work Phone: Comment on above: Expected: 06/01/2024 (Approximate), Expi res: 06/01/2024 Start: 06-01-2024 End: 06-01-2024 Patient encounter procedure 06/01/2024 10:30 AM EST Office Visit [facility] [address] [place] [phone] Serene Alfred NP [address] [place] [address] [facility] Start: 05-17-2024 End: 05-17-2024 Patient encounter procedure 05/17/2024 3:15 PM EST Office Visit [facility] [address] [facility] [place] [phone] Katie Aceves NP [address] [place] [address] Arrived [facility] Comment on above: Arrived Start: 05-10-2024 End: 05-10-2024 Admission to same day surgery center 05/10/2024 1:35 PM EST - 05/10/2024 3:25 PM EST Surgery [facility] [address] [place] [phone] Zhou Lee MD Otolaryngology Section [address] [address] ENDOSCOPY, BILATERAL NOSE, DIAGNOSTIC [facility] Comment on above: ENDOSCOPY, BILATERAL NOSE, DIAGNOSTIC Start: 05-10-2024 End: 05-10-2024 Control nasal hemorrhage anterior simple SIMPLE CONTROL OF EPISTAXIS Chronic maxillary sinusitis Epistaxis 05/10/2024 1:35 PM [facility] Start: 05-10-2024 End: 05-10-2024 Myringoplasty MYRINGOPLASTY, USING PAPER PATCH IF INDICATED Chronic maxillary sinusitis Epistaxis 05/10/2024 1:35 PM [facility] Start: 05-10-2024 End: 05-10-2024 Nasal endoscopy diagnostic uni/bi spx ENDOSCOPY, NOSE, DIAGNOSTIC Chronic maxillary sinusitis Epistaxis 05/10/2024 1:35 PM [facility] Start: 05-10-2024 End: 05-10-2024 Nsl/sinus ndsc max antrost w/rmvl tiss max sinus MAXILLARY ANTROSTOMY, WITH TISSUE REMOVAL Chronic maxillary sinusitis Epistaxis 05/10/2024 1:35 PM [facility] Start: 05-10-2024 End: 05-10-2024 Otolaryngologic exam under general anesthesia EXAM UNDER ANESTHESIA, EAR, BILATERAL Chronic maxillary sinusitis Epistaxis 05/10/2024 1:35 PM [facility] Start: 05-10-2024 Subsequent hospital visit by physician 05/10/2024 1:35 PM EST Hospital Encounter [address] [phone] Zhou Lee MD Otolaryngology Section [address] [address] [facility] Start: 05-04-2024 End: 05-04-2024 Patient encounter procedure 05/04/2024 11:30 AM EST Appointment [facility] [address] [place] [address] Zhou Lee MD Otolaryngology Section [address] [address] Discharge Disposition: Home [facility] Start: 04-27-2024 End: 04-27-2024 US MFM with or without consult US MFM with or without consult Imaging Routine Maternal Crohn's disease affecting in second trimester ([facility]) Expected: 04/27/2024 (Approximate), Expires: 04/27/2024 [facility]: Comment on above: Expected: 04/27/2024 (Approximate), Expi res: 04/27/2024 Start: 04-24-2024 Tobacco Screening Tobacco Screening [facility] [employer] Start: 03-22-2024 End: 03-22-2024 Admission to same day surgery center 03/22/2024 2:30 PM EST - 03/22/2024 4:00 PM EST Surgery [address] [phone] Zhou Lee MD Otolaryngology Section [address] [place] [address] ENDOSCOPY, BILATERAL NOSE, DIAGNOSTIC [facility] Comment on above: ENDOSCOPY, BILATERAL NOSE, DIAGNOSTIC Start: 03-22-2024 Subsequent hospital visit by physician 03/22/2024 2:30 PM EST Hospital Encounter [address] [phone] Zhou Lee MD Otolaryngology Section [address] [address] [facility] Start: 03-22-2024 End: 03-22-2024 Control nasal hemorrhage anterior simple [facility] Start: 03-22-2024 End: 03-22-2024 Myringoplasty [facility] Start: 03-22-2024 End: 03-22-2024 Nasal endoscopy diagnostic uni/bi spx [facility] Start: 03-22-2024 End: 03-22-2024 Nsl/sinus ndsc max antrost w/rmvl tiss max sinus [facility] Start: 03-22-2024 End: 03-22-2024 Otolaryngologic exam under general anesthesia [facility] Start: 02-16-2024 End: 02-15-2025 CT Sinuses WO contrast CT Sinuses Stealth without Contrast Imaging Routine Chronic sinusitis, unspecified location Expected: 02/16/2024 (Approximate), Expires: 02/15/2025 [facility] Work Phone: Comment on above: Expected: 02/16/2024 (Approximate), Expi res: 02/15/2025 Start: 02-10-2024 End: 02-10-2024 Patient encounter procedure 02/10/2024 10:30 AM EDT Office Visit [facility] [address] [place] [phone] Serene Alfred NP [address] [place], [place] [phone] Arrived [facility] Comment on above: Arrived Start: 01-27-2024 End: 01-26-2025 25-hydroxyvitamin D3 [Mass/volume] in Serum or Plasma Vitamin D 25 hydroxy Lab Routine Vitamin D deficiency Expected: 01/27/2024 (Approximate), Expires: 01/26/2025 [facility] Comment on above: Expected: 01/27/2024 (Approximate), Expi res: 01/26/2025 Start: 01-27-2024 End: 01-26-2025 CBC W Auto Differential panel - Blood CBC and differential Lab Routine Encounter for wellness examination in adult Microcytic anemia Expected: 01/27/2024 (Approximate), Expires: 01/26/2025 [facility] Comment on above: Expected: 01/27/2024 (Approximate), Expi res: 01/26/2025 Start: 01-27-2024 End: 01-26-2025 Cobalamin (Vitamin B12) [Mass/volume] in Serum or Plasma Vitamin B12 Lab Routine Other fatigue Expected: 01/27/2024 (Approximate), Expires: 01/26/2025 [facility] Comment on above: Expected: 01/27/2024 (Approximate), Expi res: 01/26/2025 Start: 01-27-2024 End: 01-26-2025 Comprehensive metabolic 2000 panel - Serum or Plasma Comprehensive metabolic panel Lab Routine Encounter for wellness examination in adult Gastroesophageal reflux disease without esophagitis Expected: 01/27/2024 (Approximate), Expires: 01/26/2025 [facility] Work Phone: Comment on above: Expected: 01/27/2024 (Approximate), Expi res: 01/26/2025 Start: 01-27-2024 IBD Iron Studies IBD Iron Studies [facility] Start: 01-27-2024 End: 01-26-2025 Iron + transferrin + TIBC Iron + transferrin + TIBC Lab Routine Microcytic anemia Expected: 01/27/2024 (Approximate), Expires: 01/26/2025 [facility] Comment on above: Expected: 01/27/2024 (Approximate), Expi res: 01/26/2025 Start: 01-27-2024 End: 01-26-2025 TSH W/REFLEX TO FT4 TSH W/REFLEX TO FT4 Lab Routine Encounter for wellness examination in adult Other fatigue Expected: 01/27/2024 (Approximate), Expires: 01/26/2025 [facility] Comment on above: Expected: 01/27/2024 (Approximate), Expi res: 01/26/2025 Start: 01-27-2024 End: 01-27-2024 Patient encounter procedure 01/27/2024 10:00 AM EDT Office Visit [facility] [address] [place] [address] Serene Alfred NP [address] [place] [address] Arrived [facility] Comment on above: Arrived Start: 12-13-2023 COVID-19 VACCINE ( season) COVID-19 VACCINE ( season) [facility] Start: 12-13-2023 Influenza vaccination [facility] Start: 10-22-2023 End: 10-22-2023 Telemedicine consultation with patient 10/22/2023 9:30 AM EDT Telemedicine [facility] [place] [address] [place] [address] Milind Fitch, CUTTING AND PRINTING MACHINE OPERATOR-BASKET MAKER [address] [place] [address] [facility] [place] Start: 10-21-2023 DTaP,Tdap and Td Vaccines (7 - Td or Tdap) DTaP,Tdap and Td Vaccines (7 - Td or Tdap) [facility] [employer] Start: 10-21-2023 DTaP/Tdap/Td vaccine (7 - Td or Tdap) DTaP/Tdap/Td vaccine (7 - Td or Tdap) [facility] Start: 10-21-2023 DTaP/Tdap/Td VACCINES (7 - Td or Tdap) DTaP/Tdap/Td VACCINES (7 - Td or Tdap) [facility] Start: 10-21-2023 Tetanus vaccination TETANUS [facility] Start: 08-06-2023 End: 08-05-2024 CALPROTECTIN, STOOL CALPROTECTIN, STOOL Fluids Routine Crohn's disease in remission Expected: 08/06/2023, Expires: 08/05/2024 [facility] Comment on above: Expected: 08/06/2023, Expires: Start: 08-06-2023 End: 08-05-2024 US.doppler Lower extremity vein - left VASC DUPLEX VENOUS EXTREMITY LOWER LEFT Imaging STAT Left leg swelling Expected: 08/06/2023, Expires: 08/05/2024 [facility] Comment on above: Expected: 08/06/2023, Expires: Start: 07-03-2023 End: 07-03-2023 Patient encounter procedure 07/03/2023 3:00 PM EDT Appointment [facility] [address] [facility] [place] [address] [facility] Start: 06-01-2023 End: 06-01-2023 Patient encounter procedure 06/01/2023 6:30 PM EST Routine [facility] [address] [place] [phone] Alfredo Duong CNM [address] [place] [address] [facility] Start: 05-29-2023 End: 05-29-2023 Patient encounter procedure 05/29/2023 2:45 PM EST Appointment [facility] [address] [place] [address] [facility] Start: 05-26-2023 End: 05-26-2023 Patient encounter procedure 05/26/2023 7:30 PM EST Office Visit [facility] [address] [place] [phone] Rubia Hernandez NP [address] [place] [address] Arrived [facility] Comment on above: Arrived Start: 04-29-2023 End: 04-29-2023 Patient encounter procedure 04/29/2023 10:00 AM EST Office Visit [facility] [address] [place] [address] Teresa Gerber, CUTTING AND PRINTING MACHINE OPERATOR-BASKET MAKER [address] [place] [address] [facility] Start: 04-24-2023 End: 04-24-2023 Patient encounter procedure [facility] Start: 04-03-2023 End: 04-03-2023 Clinical Support Encounter 04/03/2023 11:00 AM EST Clinical Support Encounter [facility] [address] [place] [address] [facility] [place] Start: 03-20-2023 IBD Iron Studies IBD Iron Studies [facility] Start: 02-25-2023 End: 02-26-2024 CALPROTECTIN, STOOL CALPROTECTIN, STOOL Fluids Routine Crohn's disease of both small and large intestine with complication Expected: 02/25/2023, Expires: 02/26/2024 [facility] Comment on above: Expected: 02/25/2023, Expires: 4 Start: 02-25-2023 End: 02-26-2024 HEP A AB, TOTAL (IGG+IGM) HEP A AB, TOTAL (IGG+IGM) Lab Routine Crohn's disease of both small and large intestine with complication Expected: 02/25/2023, Expires: 02/26/2024 [facility] Comment on above: Expected: 02/25/2023, Expires: 4 Start: 02-25-2023 End: 02-26-2024 M TUBERCULOSIS BY QUANTIFERON, BLD [facility] Comment on above: Expected: 02/25/2023, Expires: 4 Start: 02-25-2023 End: 02-26-2024 THIOPURINE METHYL-TRANSFERASE [facility] Comment on above: Expected: 02/25/2023, Expires: 4 Start: 02-25-2023 End: 02-26-2024 ZINC, SERUM [facility] Comment on above: Expected: 02/25/2023, Expires: 4 Start: 02-18-2023 End: 02-18-2023 Patient encounter procedure [facility] Start: 01-26-2023 End: 01-27-2024 Ferritin [Mass/volume] in Serum or Plasma [facility] Comment on above: One Time for 1 Occurrences starting 01/11 until 01/26/2023 Expected: 01/26/2023 (Approximate), Expires: 01/27/2024 Start: 01-26-2023 End: 01-26-2023 Patient encounter procedure [facility] Start: 01-20-2023 End: 01-20-2023 Patient encounter procedure 01/20/2023 1:00 PM EDT Appointment [facility] Clinics [address] [place], [place] [address]Jenny [address] [place] [address] Martha Hatfield MD [address] [place] [address] [facility] Start: 01-14-2023 IBD TDM Annual Screening Ustekinumab IBD TDM Annual Screening Ustekinumab [facility] Start: 01-05-2023 End: 01-05-2023 Admission to same day surgery center Perioperative Services Comment on above: ETHMOID SINUS SURGERY bilateral Start: 01-05-2023 End: 01-05-2023 Nasal/sinus ndsc w/partial ethmoidectomy [facility] [place] Start: 01-05-2023 End: 01-05-2023 Nsl/sinus ndsc max antrost w/rmvl tiss max sinus [facility] [place] Start: 01-05-2023 End: 01-05-2023 Strtctc cptr asstd px cranial intradural [facility] [place] Start: 01-05-2023 Subsequent hospital visit by physician Perioperative Services Start: 01-05-2023 End: 01-05-2023 Patient encounter procedure 01/05/2023 10:[address] [facility] [address] [place] [address] Discharge Disposition: Home CT [facility] Start: 12-24-2022 IBD on Biologics/Immunomodulators Quantiferon IBD on Biologics/Immunomodulato rs Quantiferon [facility] Start: 12-12-2022 COVID-19 Vaccine ( season) COVID-19 Vaccine ( season) [facility] Start: 12-12-2022 Influenza vaccination [facility] Start: 2022 Screening for malignant neoplasm of cervix [facility] Start: 11-02-2022 IBD 25-OH Vitamin D IBD 25-OH Vitamin D [facility] Start: 09-18-2022 IBD 25-OH Vitamin D IBD 25-OH Vitamin D [facility] Start: 09-03-2022 IBD Annual Visit IBD Annual Visit [facility] Start: 07-25-2022 End: 07-25-2022 Patient encounter procedure 07/25/2022 Appointment Rheumatology [facility] Start: 07-25-2022 End: 07-25-2022 Patient encounter procedure 07/25/2022 Appointment Gastroenterology Javier Agee MD [address] [place] [id number] [facility] Start: 06-09-2022 IBD Calprotectin IBD Calprotectin [facility] Start: 05-24-2022 IBD Surveillence Colonscopy 8 years after diagnosis IBD Surveillence Colonscopy 8 years after diagnosis [facility] Start: 05-06-2022 IBD TDM Post Induction Ustekinumab IBD TDM Post Induction Ustekinumab [facility] Start: 05-05-2022 End: 05-05-2022 Patient encounter procedure 05/05/2022 Appointment Ent-Otolaryngology Zhou Lee MD Otolaryngology Section [address] [place] [id number] [facility] Start: 12-12-2021 Influenza vaccination INFLUENZA VACCINE (#1) [facility] Start: 04-18-2021 COVID-19 Vaccine (2 - Misael risk 3-dose series) COVID-19 Vaccine (2 - Misael risk 3-dose series) [facility] Start: 04-18-2021 COVID-19 Vaccine (2 - Misael risk series) COVID-19 Vaccine (2 - Misael risk series) [facility] Start: 12-12-2020 Influenza vaccination Flu vaccine (#1) [facility] Start: 2020 DTaP,Tdap and Td Vaccines (1 - Tdap) DTaP,Tdap and Td Vaccines (1 - Tdap) [facility] Start: 2020 DTaP/Tdap/Td vaccine (1 - Tdap) DTaP/Tdap/Td vaccine (1 - Tdap) [facility] Start: 2020 Pneumococcal 0-49 years Vaccine (1 of 2 - PCV) Pneumococcal 0-49 years Vaccine (1 of 2 - PCV) [facility] Start: 2020 Pneumococcal vaccination Pneumococcal Vaccine (1 of 2 - PCV) [facility] Start: 2020 PNEUMOCOCCAL VACCINE SERIES (1 of 2 - PCV) PNEUMOCOCCAL VACCINE SERIES (1 of 2 - PCV) [facility] Start: 2020 Shingles vaccine (1 of 2) Shingles vaccine (1 of 2) [facility] Start: 2020 Zoster vaccine hzv live for subcutaneous use ZOSTER (SHINGLES) VACCINE (1 of 2) [facility] Start: 11-04-2019 Adult BMI Screening Adult BMI Screening [facility] Start: 11-04-2019 Hepatitis C screening Hepatitis C screen [facility] Start: 12-18-2017 Varicella vaccine (2 of 2 - 2-dose childhood series) Varicella vaccine (2 of 2 - 2-dose childhood series) [facility] Start: 12-18-2017 VARICELLA VACCINES (2 of 2 - 2-dose childhood series) VARICELLA VACCINES (2 of 2 - 2-dose childhood series) [facility] Start: 2017 MENB (1 of 2 - Patient Seeks Protection) MENB (1 of 2 - Patient Seeks Protection) [facility] Start: 2017 Meningococcal B Vaccine (1 of 2 - Patient Seeks Protection) Meningococcal B Vaccine (1 of 2 - Patient Seeks Protection) [facility] Start: 2017 Meningococcal B Vaccine (1 of 2 - Standard) Meningococcal B Vaccine (1 of 2 - Standard) [facility] Start: 2017 Screening for Chlamydia trachomatis [facility] Start: 2016 HIV screening [facility] Start: 2016 HPV Vaccine (1 - 3-dose series) HPV Vaccine (1 - 3-dose series) [facility] Start: 2016 Vaccination for human papillomavirus HPV VACCINE ADOL (1 - 3-dose series) [facility] Start: 11-04-2015 Gastroenterology Transition Assessment Gastroenterology Transition Assessment [facility] Start: 11-04-2015 Hemonc Transition Assessment Hemonc Transition Assessment [facility] Start: 11-04-2015 Rheumatology Transition Assessment Rheumatology Transition Assessment [facility] Start: 2013 Depression Screen Depression Screen [facility] Start: 2013 Depression Screening Depression Screening [facility] Start: 2013 Tobacco Screening Tobacco Screening [facility] Start: 2012 HPV vaccine (1 - 2-dose series) HPV vaccine (1 - 2-dose series) [facility] Start: 2012 HPV Vaccine (1 - Risk 3-dose series) HPV Vaccine (1 - Risk 3-dose series) [facility] Start: 2012 Vaccination for human papillomavirus HPV VACCINE ADOL (1 - 2-dose series) [facility] Start: 11-04-2011 MENB (1 of 2 - Risk Bexsero 2-dose series) MENB (1 of 2 - Risk Bexsero 2-dose series) [facility] Start: 2010 HPV Vaccine (1 - Risk 3-dose series) HPV Vaccine (1 - Risk 3-dose series) [facility] Start: 2010 HPV VACCINES (1 - 2-dose series) HPV VACCINES (1 - 2-dose series) [facility] Start: 11-04-2007 Pneumococcal 0-64 years Vaccine (1 - PCV) Pneumococcal 0-64 years Vaccine (1 - PCV) [facility] Start: 11-04-2007 Pneumococcal vaccination [facility] Start: 11-04-2007 PNEUMOCOCCAL VACCINE SERIES (1 - PCV) PNEUMOCOCCAL VACCINE SERIES (1 - PCV) [facility] Start: 11-04-2007 PNEUMOCOCCAL VACCINE SERIES (1 of 2 - PCV) PNEUMOCOCCAL VACCINE SERIES (1 of 2 - PCV) [facility] Start: 2006 COVID-19 Vaccine (1) COVID-19 Vaccine (1) [facility] Start: 2002 Dental Hygiene (Due every 6 months) Dental Hygiene (Due every 6 months) [facility] Start: 2002 Varicella vaccine (1 of 2 - 2-dose childhood series) Varicella vaccine (1 of 2 - 2-dose childhood series) [employer] Start: 2001 Dental Oral Exam Dental Oral Exam [facility] Start: 2001 Hepatitis C screening Hepatitis C screen [employer] Start: 2001 Screening for Chlamydia trachomatis GONORRHEA SCREEN [facility] End: 07-09-2021 Anti-Thyroglobulin Antibody [email or web address] Application Phone: Comment on above: Once for 1 Occurrences starting 07/10/19 until 07/09/2021 End: 01-26-2023 CBC W/AUTOMATED DIFF, REFLEX TO MANUAL CBC W/AUTOMATED DIFF, REFLEX TO MANUAL Lab Routine Iron deficiency One Time for 1 Occurrences starting 01/26/2023 until 01/26/2023 [facility] Work Phone: Comment on above: One Time for 1 Occurrences starting 01/11 until 01/26/2023 End: 10-26-2024 Ct abdomen & pelvis w/o contrst 1/> body re [facility] [employer] Comment on above: 1 Occurrences starting 10/26/2024 until 10/26/2024 Excision excessive s kin & subq tissue other area EXCISION, SKIN AND SUBCUTANEOUS TISSUE Sebaceous cyst [facility] [place] End: 07-09-2021 Immunofixation serum profile [email or web address] Application Phone: Comment on above: Once for 1 Occurrences starting 07/10/19 until 07/09/2021 End: 07-09-2021 Immunoglobulin G Subclasses [email or web address] Application Phone: Comment on above: Once for 1 Occurrences starting 07/10/19 until 07/09/2021 End: 07-09-2021 Lymphocyte Subset [email or web address] Application Phone: Comment on above: Once for 1 Occurrences starting 07/10/19 until 07/09/2021 Nasal/sinus ndsc w/p artial ethmoidectomy ENDOSCOPY, NOSE, WITH ETHMOIDECTOMY Chronic sinusitis, unspecified location [facility] [place] Nsl/sinus ndsc max a ntrost w/rmvl tiss max sinus MAXILLARY ANTROSTOMY, WITH TISSUE REMOVAL Chronic sinusitis, unspecified location [facility] [place] End: 03-22-2024 PULSE OXIMETER - CONTINUOUS PULSE OXIMETER - CONTINUOUS Respiratory Care Routine Continuous until discontinued starting 03/22/2024 [facility] Work Phone: Comment on above: Continuous until discontinued starting 1 05/23/2023 End: 07-09-2021 Strep Pneumoniae Antibody Serotypes [facility] Work Phone: Comment on above: Once for 1 Occurrences starting 07/10/19 until 07/09/2021 SURG PATH REQUEST [facility] Comment on above: Release Upon Ordering for 1 Occurrences starting 11/18/2023, 1 completed SURG PATH REQUEST [facility] Work Phone: Comment on above: Release Upon Ordering for 1 Occurrences starting 11/02/2024, 1 completed SURG PATH REQUEST (M ust Attach Requisition) [facility] Comment on above: Release Upon Ordering for 1 Occurrences starting 09/06/2024, 1 completed Immunizations Immunization Date Immunization Notes Care Provider Josi [facility] 08-11-2022 hepatitis B vaccine, adult dosage Rubia Kampfer [employer] Work Phone: [facility] 06-26-2022 hepatitis B vaccine, adult dosage Rubia Kampfer [employer] Work Phone: [facility] 05-13-2022 tuberculin skin test ; purified protein derivative solution, intradermal Rubia Kampfer [employer] Work Phone: [facility] 04-30-2022 tuberculin skin test ; purified protein derivative solution, intradermal Rubia Kampfer [employer] Work Phone: [facility] 02-19-2022 influenza, injectabl e, quadrivalent, preservative free Rubiasunny Finneypjudah [employer] Work Phone: [facility] 02-19-2022 influenza virus vacc ine, unspecified formulation Zhou Lee MD Work Phone: [facility] 02-15-2021 influenza, injectabl e, quadrivalent, preservative free Birelle Teran RN [facility] 02-15-2021 influenza, seasonal, injectable, preservative free Brielle Teran RN [facility] 02-15-2021 influenza virus vacc ine, unspecified formulation Brielle Teran RN [facility] 02-29-2020 influenza, injectabl e, quadrivalent, preservative free Rubia Hernandez [employer] Work Phone: [facility] 02-21-2020 influenza, injectabl e, quadrivalent, preservative free Brielle Teran RN [facility] 04-29-2019 influenza, injectabl e, quadrivalent, preservative free Brielle Teran RN [facility] 10-25-2018 meningococcal oligosaccharide (groups A, C, Y and W-135) diphtheria toxoid conjugate vaccine (MCV4O) Brielle Teran RN [facility] 01-08-2018 influenza, injectabl e, quadrivalent, preservative free Brielle Teran RN [facility] 01-08-2018 influenza, seasonal, injectable, preservative free Rubia Hernandez [employer] Work Phone: [facility] 11-20-2017 influenza virus vacc ine, live, attenuated, for intranasal use Brielle Teran RN [facility] 11-20-2017 influenza, live, intranasal, quadrivalent Rubia Hernandez [employer] Work Phone: [facility] 02-04-2016 influenza, seasonal, injectable, preservative free Brielle Teran RN [facility] 06-11-2014 tuberculin skin test ; purified protein derivative solution, intradermal Otilia Sinclair Work Phone: [facility] 03-26-2014 influenza, seasonal, injectable, preservative free Brielle Teran RN [facility] 03-17-2014 influenza, seasonal, injectable, preservative free Rubia Hernandez [employer] Work Phone: [facility] 10-20-2013 meningococcal polysaccharide (groups A, C, Y and W-135) diphtheria toxoid conjugate vaccine (MCV4P) Brielle Teran RN [facility] 10-20-2013 tetanus toxoid, redu rubina diphtheria toxoid, and acellular pertussis vaccine, adsorbed Brielle Teran RN [facility] 05-05-2013 influenza, injectabl e, quadrivalent, preservative free Brielle Teran RN [facility] 12-08-2006 diphtheria, tetanus toxoids and acellular pertussis vaccine Brielle Teran RN [facility] 12-08-2006 measles, mumps and rubella virus vaccine Brielle Tearn RN [facility] 12-08-2006 poliovirus vaccine, inactivated Brielle Teran RN [facility] 01-17-2005 influenza, seasonal, injectable Brielle Teran RN [facility] 03-14-2003 influenza virus vacc ine, whole virus Rubia Hernandez [employer] Work Phone: [facility] 03-14-2003 influenza, seasonal, injectable, preservative free Brielle Teran RN [facility] 03-14-2003 pneumococcal conjuga te vaccine, 7 valent Brielle Teran RN [facility] 02-10-2003 diphtheria, tetanus toxoids and pertussis vaccine Brielle Teran RN [facility] 02-10-2003 DTP Brielle Teran RN [facility] 02-10-2003 haemophilus influenz ae type b vaccine, PRP-T conjugate Brielle Teran RN [facility] 02-10-2003 influenza virus vacc ine, whole virus Rubia Hernandez [employer] Work Phone: [facility] 02-10-2003 influenza, seasonal, injectable, preservative free Brielle Teran RN [facility] 02-10-2003 pneumococcal conjuga te vaccine, 7 valent Brielle Teran RN [facility] 11-07-2002 measles, mumps and rubella virus vaccine Brielle Teran RN [facility] 11-07-2002 varicella virus vaccine Brielle gilbert RN [facility] 11-07-2002 zoster vaccine, unspecified formulation Kye Solis MD Work Phone: [facility] 06-01-2002 diphtheria, tetanus toxoids and acellular pertussis vaccine Brielle Teran RN [facility] 06-01-2002 haemophilus influenz ae type b conjugate and Hepatitis B vaccine Brielle Teran RN [facility] 06-01-2002 pneumococcal conjuga te vaccine, 7 valent Brielle Teran RN [facility] 06-01-2002 poliovirus vaccine, inactivated Brielle Teran RN [facility] 03-08-2002 diphtheria, tetanus toxoids and acellular pertussis vaccine Brielle Teran RN [facility] 03-08-2002 haemophilus influenz ae type b vaccine, PRP-T conjugate Brielle Teran RN [facility] 03-08-2002 pneumococcal conjuga te vaccine, 7 valent Brielle Teran RN [facility] 03-08-2002 poliovirus vaccine, inactivated Brielle Teran RN [facility] 01-04-2002 diphtheria, tetanus toxoids and acellular pertussis vaccine Brielle Teran RN [facility] 01-04-2002 haemophilus influenz ae type b vaccine, PRP-T conjugate Brielle Teran RN [facility] 01-04-2002 hepatitis B vaccine, pediatric or pediatric/adolescent dosage Brielle Teran RN [facility] 01-04-2002 poliovirus vaccine, inactivated Brielle Teran RN [facility] 2001 hepatitis B vaccine, pediatric or pediatric/adolescent dosage Brielle Teran RN [facility] Payers Date Payer Category Payer Self-pay [id number] 2023 Medicaid (Managed Care) [employer] [id number] 2023 Private Health Insurance [employer] [id number] 2023-Present [address] [place] [address] [id number]. [id number] 2023 Medicaid [id number]. [id number] 2021 Blue Cross Blue Shield BCBS [id number]. [id number] 2021 Managed Care (unspecified) [facility] P[facility] POS [id number]. [id number] 2013 Unknown [id number]. 1.13.161.2. 7.3.504683.315 2001 Unknown [id number] 2.16.840.1.221220.3.579.2. 175 2001 Unknown [id number] 2.16.840.1.976097.3.579.2. 175 2001 Unknown [id number] 2.16.840.1.432000.3.579.2. 593 2001 Unknown [id number] 2.16.840.1.199851.3.579.2. 593 2001 Unknown [id number] 2.16.840.1.835859.3.579.2. 593 2001 Unknown [id number] 2.16.840.1.581885.3.579.2. 1286 2001 Unknown [id number] 2.16.840.1.243102.3.579.2. 1286 2001 Unknown [id number] 2.16.840.1.259730.3.579.2. 1286 2001 Unknown [id number] 2.16.840.1.891889.3.579.2. 1286 2001 Unknown [id number] 2.16.840.1.674270.3.579.2. 718 2001 Unknown [id number] 2.16.840.1.810900.3.579.2. 430 2001 Unknown [id number] 2.16.840.1.751095.3.579.2. 430 2001 Unknown [id number] 2.16.840.1.872817.3.579.2. 430 2001 Unknown [id number] 2.16.840.1.900322.3.579.2. 430 2001 Unknown [id number] 2.16.840.1.724691.3.579.2. 430 2001 Unknown [id number] 2.16.840.1.065548.3.579.2. 1259 2001 Unknown [id number] 2.16.840.1.824825.3.579.2. 1259 2001 Unknown [id number] 2.16.840.1.702103.3.579.2. 125 2001 Unknown [id number] 2.16.840.1.261868.3.579.2. 1258 2001 Unknown [id number] 2.16.840.1.763277.3.579.2. 1258 2001 Unknown [id number] 2.16.840.1.031865.3.579.2. 1258 2001 Unknown [id number] 2.16840.1.952877.3.579.2. 1258 2001 Unknown [id number] 2.16840.1.441486.3.579.2. 1258 2001 Unknown [id number] 2.840.1.469301.3.579.2. 1258 2001 Unknown [id number] 2.840.1.050779.3.579.2. 176 2001 Unknown [id number] 2.840.1.945411.3.579.2. 594 2001 Unknown [id number] 2.840.1.283763.3.579.2. 594 2001 Unknown [id number] 2.840.1.081393.3.579.2. 594 2001 Unknown [id number] 2.840.1.433150.3.579.2. 594 2001 Unknown [id number] 2.16840.1.802258.3.579.2. 594 2001 Unknown [id number] 2.16840.1.741763.3.579.2. 594 2001 Unknown [id number] 2.16840.1.024060.3.579.2. 594 2001 Unknown [id number] 2.16840.1.988717.3.579.2. 594 2001 Unknown [id number] 2.16.840.1.845235.3.579.2. 594 2001 Unknown [id number] 2.16.840.1.013851.3.579.2. 594 2001 Unknown [id number] 2.16.840.1.742450.3.579.2. 594 2001 Unknown [id number] 2.16.840.1.875918.3.579.2. 594 2001 Unknown [id number] 2.16.840.1.059799.3.579.2. 594 1959 Unknown [id number] 1.2.840.118929.1.13.239.2. 7.3.092912.315 1959 Unknown [id number] 1.2.840.965427.1.13.239.2. 7.3.905433.315 Unknown [id number] 2.16.840.1.398041.3.579.2. 531 Social History Date Type Detail Facility Start: 09-11-2011 End: 02-25-2023 Tobacco smoking status [facility]: Start: 07-26-2014 End: 08-19-2024 Alcohol intake Current non-drinker of alcohol (finding) [facility] Start: 2001 [facility]igned At [facility] Start: 02-28-2022 End: 02-25-2023 Tobacco use and exposure Smokeless tobacco non-user [facility] Start: 03-21-2022 End: 12-26-2024 Alcohol intake Ex-drinker (finding) [facility] Start: 03-21-2022 End: 12-26-2024 Alcohol intake [facility] Start: 08-26-2021 History SDOH Financial 5 [facility] Start: 08-26-2021 History SDOH Food Worry 1 [facility] Start: 08-26-2021 History SDOH Transport Med 2 [facility] Start: 05-17-2016 End: 12-26-2024 Tobacco use panel [facility] How hard is it for you to pay for the very basics like food, housing, medical care, and heating Not hard at all [facility] (I/We) worried whether (my/our) food would run out before (I/we) got money to buy more. Never true [facility] In the past 12 months, was there a time when you were not able to pay the mortgage or rent on time? No [facility] Start: 12-22-2022 [facility] Are you now , , , [...] 05-26-2023 Alcohol Comment caffeine intake : NO [facility] Start: 2001 Sex Assigned At Female F [facility] Start: 05-23-2012 End: 01-16-2023 Sex Female (finding) [facility] Start: 05-26-2024 Gender identity Identifies as female gender (finding) [facility] Start: 05-26-2024 Sexual orientation Heterosexual (fin ding) [facility] NEGATED: Highlighted rowStart: NINF History of tobacco use Passive smoker [facility] Medical Equipment Procedure Code Equipment Code Equipment Origin al Text Equipment Identifier Dates [facility]urg[facility] [id number] Start: 07-23-2015 Comment on above: Description: Nares Staplr Ss Ta 90-3.5 - [id number] Start: 03-21-2016 Sealant Floseal 5ml - [id number] Start: 06-11-2018 Comment on above: Description: Sinus Staplr Mlti Kristen 80-3.8 - [id number] Start: 03-21-2016 Rld Mlti Kristen 80 3.8 - [id number] Start: 03-21-2016 Rld Mlti Kristen 80 3.8 - [id number] Start: 03-21-2016 G[employer]air .6x9cm - [id number] FDA Start: 03-22-2024 Comment on above: Description: Site: L eft Ear Spng Surgifoam A gs Sz -7 - [id number] Start: 03-22-2024 Goals Date Patient Goal Desired Activity /State Personal health goal Clinical Notes 08-06-2021 to 12-26-2024 DANIKA Maxwell - 12/26/2024 11:15 AM Nicholas Hutchins RN [...] with luminal narrowing. Findings are suggestive of [id number] Crohn's disease. Prominent asymmetric soft tissue in [...] TEACHING, and sent pt ERAS teaching through tabulate. documented in this encounter [facility] 12-26-2024 Instructions Jerilyn Hutchins RN - [...] doses. No premeds. Rate and dilution per edger runner package insert or per pharmacist discretion. Infusion [...] call by 4 p.m., please call the [facility] at . [...] the hospital. Do not wear makeup, nail uruguayan or hair pins to the hospital. Please [...] a living will or durable power of employee benefits attorney, please bring a copy of the documents with you. IF YOU USE CPAP BRING YOUR MACHINE WITH YOU TO THE HOSPITAL ALONG WITH THE PRESCRIPTION FOR CPAP PRESSURE LEVELS If you develop any illness, such as a cold, sore throat, cough, or fever, before your surgery, call the [facility] at and [...] found at all major retailers and on [employer]. If you are unable to find these [...] program. You can also get help through: [facility], [facility], [employer], [employer], Smokefree.gov website Stop Alcohol Use [...] (AA) http://www.aa.org/ Rethinking Drinking https://www.rethinkingdrinking.niaa a.nih.gov/ National [place] of Alcohol Abuse and Alcoholism https://niaaa.nih.gov/ Anila Rubin [phone] -Inpatient, partial hospitalization and outpatient services for [...] Patient Controlled Analgesia (also known as a MOLD CONSTRUCTION SUPERVISOR) A MOLD CONSTRUCTION SUPERVISOR is a pain pump that could be [...] office. documented in this encounter [facility] 12-26-2024 Miscellaneous Notes Addended by: YVETTE MAR on: 12/26/2024 02:00 PM Modules accepted: Orders documented in this encounter [facility] 12-26-2024 Note Addended by: YVETTE MAR on: 12/26/2024 02:00 PM Modules accepted: Orders [facility] 11-02-2024 Nurse Surgical operation note Patient meets ASU discharge criteria and discharged per MD order to home. Patient taken by wheelchair by Herlinda TATUM to awaiting car. All belongings gathered with patient. Family/friend to drive patient home and care for patient 24 hours post-op. [facility] 11-02-2024 Nurse Note Patient meets ASU discharge criteria and discharged per MD order to home. Patient taken by wheelchair by Herlinda TATUM to awaiting car. All belongings gathered with patient. Family/friend to drive patient home and care for patient 24 hours post-op. documented in this encounter [facility] 11-02-2024 Miscellaneous Notes Patient arrived to [facility] from [facility] PACU via [facility]. Vital signs taken and stable. Patient given drink and snacks. Family called to bedside. Patient assessed. Patient denies hx of chemo and radiation. Patient denies metal or foreign objects in body. Patient denies hx of seizure or stroke. documented in this encounter [facility] 11-02-2024 Nurse Note Patient arrived to [facility] from [facility] PACU via [place]. Vital signs taken and stable. Patient given drink and snacks. Family called to bedside. Patient assessed. [facility] 11-02-2024 Hospital Discharge instructions Cliff Taylor MD, [...] medications is right for you. Some are sved-xxo-opwmbgd, some prescribed electronically, and some require a [...] or IBUPROFEN completely documented in this encounter [facility] 11-02-2024 Nurse Note Patient denies hx of chemo and radiation. Patient denies metal or foreign objects in body. Patient denies hx of seizure or stroke. [facility] 10-17-2024 Instructions Eleanor Bess RN - 10/17/2024 10:30 AM EDT Current Outpatient Medications Medication Sig Acetaminophen 325 MG tablet Hold 2 days prior Lidocaine viscous-Alum & Mag Rokwilfnj-Dbcmjd-dsrzzjflrkYWDYM oral mouthwash Hold 24 hours prior risankizumab-rzaa [...] call by 4 p.m., please call the [facility] at . [...] hospital. 6 Do not wear makeup, nail uruguayan or hair pins to the hospital. Please [...] a living will or durable power of employee benefits attorney, please bring a copy of the documents with you. 13 IF YOU USE CPAP BRING YOUR MACHINE WITH YOU TO THE HOSPITAL ALONG WITH THE PRESCRIPTION FOR CPAP PRESSURE LEVELS If you develop any illness, such as a cold, sore throat, cough, or fever, before your surgery, call the [facility] at and our office at . Survey Following your visit today, you may receive a survey via text or email asking about your experience. We are always looking for ways to improve your visit. Please share your feedback and comments with us- We would love to hear from you! documented in this encounter [facility] History of Present illness Narrative Images from the original note were not included. [facility] Chief Complaint Patient presents with Follow-up Crohn's Disease HISTORY OF PRESENT ILLNESS Kings Hatfield is a 23 y.o. female w/ PMH Ileocolonic Crohn's disease Stelara, orbital myositits, psoriasis, chronic sinusitis here for follow up. Transferred care from [facility] 02/2023. Patient was diagnosed with Crohn's disease [...] told Crohn's moved to mouth. Went to [facility] and this stopped working. On Rituximab for [...] GI surgical history: Ileocectomy 2015 Current therapy: Skyrizi (set to start tomorrow) Past therapy: - Stelara g5xrusj - Infliximab(stopped due to severe scalp psoriasis) [...] doses. No premeds. Rate and dilution per edger runner package insert or per pharmacist discretion. Infusion [...] Low Risk (05/17/2024) Received from [facility] Overall Financial Resource Strain (CARDIA) Difficulty of Paying Living Expenses: Not hard at all Food Insecurity: No Food Insecurity (05/17/2024) Received from [facility] Hunger Vital Sign Worried About Running Out of Food in the Last Year: Never true Ran Out of Food in the Last Year: Never true Transportation Needs: No Transportation Needs (05/17/2024) Received from [facility] PRAPARE - Transportation Lack of Transportation (Medical): No Lack of Transportation (Non-Medical): No Physical Activity: Insufficiently Active (05/17/2024) Received from [facility] Exercise Vital Sign Days of Exercise per Week: 4 days Minutes of Exercise per Session: 30 min Stress: No Stress Concern Present (05/17/2024) Received from [facility] [place] of Occupational Health - Occupational Stress Questionnaire Feeling of Stress : Not at all Social Connections: Moderately Isolated (05/17/2024) Received from [facility] Social Connection and Isolation Panel [NHANES] Frequency of Communication with Friends and Family: More than three times a week Frequency of Social Gatherings with Friends and Family: More than three times a week Attends Orthodoxy Services: Never Active Member of Clubs or Organizations: No Attends Club or Organization Meetings: Never Marital Status: Living with partner Personal Safety: Not At Risk (02/09/2023) Received from [facility], [facility] Humiliation, Afraid, Rape, and Kick questionnaire Fear of Current or Ex-Partner: No Emotionally Abused: No Physically Abused: No Sexually Abused: No Housing Stability: Low Risk (05/17/2024) Received from [facility] Housing Stability Vital Sign Unable [...] STUDIES: Relevant radiology studies were reviewed in [facility] PROCEDURES: Colonoscopy 08/2024: Impression: - Preparation of [...] time spent on day of encounter including ruu-hxjv-ug-face time (chart review/completing the note/coordinating care) and smpy-pr-ldvc time with the patient: 20 minutes DANIKA Waterman IBD Nurse Practitioner Division of Gastroenterology, Hepatology, and Nutrition This RAFA verified patients name and . documented in this encounter [facility] 09-22-2024 Instructions DANIKA Waterman - 09/22/2024 2:30 PM EDT - Skyrizi infusion tomorrow as scheduled - Update labs today - Continue prednisone taper as prescribed - Colorectal follow up as scheduled in October - Reach out with concerns - Follow up in 2 months, or sooner if necessary documented in this encounter [facility] 09-06-2024 Nurse Note Extent reached per Dr. Dalton.. [facility] 09-06-2024 Miscellaneous Notes Extent reached per Dr. Dalton.. Exchanged adult scope for ultraslim scope. Sedation, vital signs, airway, and monitoring per anesthesia. documented in this encounter [facility] 09-06-2024 Nurse Note Exchanged adult scope for ultraslim scope. [facility] 09-06-2024 History and physical note ENDOSCOPIC [...] using Monitored Anesthesia Care. Tu Dalton MD [facility] Work Phone: 09-06-2024 History and physical [...] MD documented in this encounter [facility] 09-06-2024 Nurse Note A copy of the written instructions regarding post-procedure diet, medications, activities, and phone number to be called in case of emergency provided to patient and/or responsible democrat. Information reviewed and questions answered prior to discharge. PT HAD SPRITE AND PRETZELS DRESSED SELF AMBULATED TO LOBBY BY SELF documented in this encounter [facility] 09-06-2024 Nurse Surgical operation note A copy of the written instructions regarding post-procedure diet, medications, activities, and phone number to be called in case of emergency provided to patient and/or responsible democrat. Information reviewed and questions answered prior to discharge. PT HAD SPRITE AND PRETZELS DRESSED SELF AMBULATED TO LOBBY BY SELF [facility] 09-06-2024 Nurse Note Sedation, vital signs, airway, and monitoring per anesthesia. [facility] 08-01-2024 History of Present illness Narrative Images from the original note were not included. Kings Hatfield is a 23 y.o. female presents with chief complaint of Migraine HPI: HPI History of Present Illness The patient presents for evaluation of headaches. Daily headaches have been experienced for the past 2.5 weeks, originating in the left synagogue area and radiating across the forehead to [...] migraine. Currently under the care of a detention deputy at [place], who recommended starting treatment here and potentially obtaining scans if necessary. The detention deputy was also unsure if the symptoms were [...] Reports daily headaches starting in the left synagogue area and spreading across the forehead to the right, often worsening in the afternoons and causing nausea. - Jcdi-ome-esxzqez medications like Tylenol and ibuprofen have been [...] eval. documented in this encounter [facility] 07-15-2024 History of Present illness Narrative Images [...] pressure but with concurrent eye swelling. Her detention deputy noted that her last ocular flare-up was [...] pulsating pressure that wraps around the forehead. Qdgy-wob-qqmntai medications like Tylenol and ibuprofen have been [...] Primary documented in this encounter [facility] 07-13-2024 Note Attestation signed by Jelly Latham [...] pain does not improve with Stelara monotherapy [facility] New Patient Visit Subjective Chief Complaint: No chief complaint on file. Kings Hatfield is an 23 y.o. female presenting to [...] used 2-3 years ago (biopsy confirmed at [facility]), reported last used rituximab in 2019. 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 No other autoimmune diseases or arthritis [...] Low Risk (05/17/2024) Received from [facility] Overall Financial Resource Strain (CARDIA) Difficulty of Paying Living Expenses: Not hard at all Food Insecurity: No Food Insecurity (05/17/2024) Received from [facility] Hunger Vital Sign Worried About Running Out of Food in the Last Year: Never true Ran Out of Food in the Last Year: Never true Transportation Needs: No Transportation Needs (05/17/2024) Received from [facility] PRAPARE - Transportation Lack of Transportation (Medical): (more content not included)... [facility] 05-18-2024 Telephone encounter Note I know Louisa s not in today, so can you send a message to Serene regarding me letting her know i saw bebe last night and tested negative for everything but i just took a positive covid test [facility] 05-18-2024 Miscellaneous Notes I know Louisa s not in today, so can you send a message to Serene regarding me letting her know i saw bebe last night and tested negative for everything but i just took a positive covid test documented in this encounter [facility] 05-17-2024 History of Present illness Narrative Kings [...] COVID-19/FLU documented in this encounter [facility] 05-04-2024 History of Present illness Narrative MD [address] [place] [id number] 23 year old F here for surgical follow up. Surgery was 03/22/[address] Lee. Having random left ear pain. States it feels like something is in there. Ear drops made it worse and stopped them. [facility] PEDIATRIC OTOLARYNGOLOGY FOLLOW UP VISIT NOTE [place] [address] [place] [address] Kings Hatfield is a 23 year female [...] Labs: None Outside medical record review: None [facility] chart review: Previous ENT notes reviewed [...] need tympanoplasty- endoscopic documented in this encounter [facility] 05-04-2024 Instructions Milind Suazo RN - [...] please call our Central Scheduling number at [phone] at least 48 hours prior to your scheduled appointment. Department of Otolaryngology (ENT) Patient Instructions ENT Nurse Triage Line: [phone] (Thursday through Thursday 8:00 am - 4:00 pm) Please call the ENT Nurse Triage Line if you need to speak to a nurse for any ENT- related medical concerns prior to your next appointment. [facility] Garbage Stoker: [phone] (Weekdays after 4:00 pm and on Weekends) If you have urgent ENT concerns for your child after hours that can t wait until our return to the office, please call the hospital planing machine operator and ask to speak to the ENT physician space control supervisor. [facility] Central [phone] (Thursday through Thursday 7:30 am -5:30 pm) Please call Central Scheduling and follow the prompts to schedule an ENT appointment if you did not schedule an appointment today, or if you need to cancel and reschedule a future appointment. For more information about the Department of Otolaryngology (Ear, Nose and Throat) at [facility], please visit our website at: [email or web address] documented in this encounter [facility] 04-28-2024 Telephone encounter Note S/w Pt. Did ear drops yesterday. It was painful in the morning when she used drops for the first time in left ear. [place] and stabbing pain. Also burned left nostril. [...] ENT. PT verbalized understanding. All questions answered. [facility] 04-28-2024 Miscellaneous Notes S/w Pt. Did ear drops yesterday. It was painful in the morning when she used drops for the first time in left ear. [place] and stabbing pain. Also burned left nostril. [...] All questions answered. documented in this encounter [facility] 03-22-2024 Miscellaneous Notes Images from the original note were not included. OPERATIVE REPORT PATIENT NAME: Kings Hatfield : 2000 DATE OF SURGERY: 03/22/2024 Service: ENT Surgeons and Role: * Zhou Lee MD - Primary Anesthesiologist: Merly Perera MD ENTERPRISE INTEGRATION ARCHITECT: Noemi Pederson CRNA Pre-Op Diagnosis Codes: * [...] patient was seen and evaluated in the [facility] Pediatric Otolaryngology practice. After history and physical [...] graft up to the level of the [place] tympanic membrane remnantand further pieces of Gelfoam [...] this procedure. Zhou Lee MD Pediatric Otolaryngology [facility] documented in this encounter [facility] 03-22-2024 Procedure note Images from the original note were not included. OPERATIVE REPORT PATIENT NAME: Kings Hatfield : 2000 DATE OF SURGERY: 03/22/2024 Service: ENT Surgeons and Role: * Zhou Lee MD - Primary Anesthesiologist: Merly Perera MD ENTERPRISE INTEGRATION ARCHITECT: Noemi Pederson CRNA Pre-Op Diagnosis Codes: * [...] patient was seen and evaluated in the [facility] Pediatric Otolaryngology practice. After history and physical [...] graft up to the level of the [place] tympanic membrane remnantand further pieces of Gelfoam [...] this procedure. Zhou Lee MD Pediatric Otolaryngology [facility] 03-22-2024 Attending History and physical note [...] sinus surg / flex bronch bal 04/21/2019 [facility] / Palacious Bilat nasal cautery, rt fess, bilat turb cautery, bilat fracture nasal turbinate 05/23/2021 [facility] Bilateral diagnostic nasal/sinus endoscopy 08/04/2016 [facility] Bilateral maxillary functional endoscopic sinus surgery 07/14/2017 [facility] Colonoscopy/biopsy 57422 02/22/[address] [facility] Colonoscopy[facility]biopsy 17810 07/06/2018 [facility] E[facility] w/ bx / colonoscopy w/ bx 12/29/2012 Egd/biopsy 98044 02/22/[address] [facility] Egd/biopsy 73024 07/06/2018 [facility] Exicisional biopsy 06/11/2018 [facility] submental lymph node Functional endoscopic sinus surgerysinusotomy,sphenoid,with or without biopsy; with mucosal stripping or removal of polyp(s) (bilateral) (bilateral, 08/20/2021 [facility] Hx adenoidectomy Hx colonoscopy with biopsy 2011 Hx nasal septoplasty, sinus surgery, turb reduction 07/23/2015 [facility] Hx tonsil and adenoidectomy performed twice Ileocecectomy 03/21/2016 [facility] Nasal sinus surgery 06/11/2018 [facility] maxillary, ethmoid Picc line placement 04/24/2014 05/30/14, 07/21/14 Right maxillary functional endoscopic sinus surgery with maxillary antrostomy, remove tissue 12/23/2018 [facility] Septoplasty, eua ears, karel cerumen rem, lt tube rem and tm rep, fess, egd w/ biopsy, colonoscopy w/ biopsy 11/15/2019 [facility] / Cyndie Single incision laparoscopic surgical ileocectomy 03/21/2016 [facility] Tonsillectomy Current Medications Outpatient Medications Dosage ustekinumab 90 mg/mL subcutaneous syringe (Stelara) Inject 1 mL under skin every 8 weeks. sodium chloride, sodium bicarb-nasal rinse squeeze bottle with packet ([employer] [facility] Sinus) Place 1 Packet in each nostril [...] once daily. Meds Comments as of 12/18/2022 Carlitos approved through [employer] 12/18/22-12/18/23 PA# [id number] (TDS) Stelara approved through [employer] BCBS 12/24/21-12/24/22 PA# [id number] (TDS) Humira approved through [employer] 10/09/2021-10/09/2022 PA# [id number] (SY) Rituxan 1000 mg x 2 doses, 2 weeks apart approved through [employer] 01/11/21-02/08/21 (SJD), ref# [id number] Humira every 10 days approved through [employer] 10/11/20-10/11/21 [id number] (AUGUST) Rituxan 500 mg/50 ml vial (J9312) PA approved through [employer] for one visit from 01/12/2020 - 02/11/2020 Reference # [id number] (ad) Humira weekly approved through [employer] 12/16/19-12/15/20 [id number] (AUGUST) [employer] [facility] has approved Rituxan 1000mg every 6 months from 05-26-2018 through 05-25-2019 under PA# [id number] Humira PA approved through [employer] 09/13/18-10/13/19 PA# [id number] (TDS) Humira PA approved through [employer] 06/08/2018-10/06/2018 PA # [id number] (TDS) [employer] [facility] [employer] has approved Rituxan 1000mg every 6 months from 05-26-2018 through 05-25-2019 under PA# [id number]. Medication will need to be dispensed by [facility] in [place], [place]. As of 12/02/17 Solumedrol does not require a [place] tor PreD hrough [employer]BS for J2920,70970 and 84765 (KH) Ritux approved by [employer] X2 doses from 11/27/17-11/26/18, PA# [id number] (js) Ritux approved by [employer] via dlei-zp-rqfi, PA# [id number], valid 05/26/17 to 05/25/18 (margarita) Ritux jacinta roved by [employer] after iiyj-gz-ggxk review, Valid 11/24/16-05/25/17, PA# [id number] (margarita) As of 06/24/16, no PA or PreD needed for Solumedrol J2930, 04379, 10183 with [employer] (js) Physical Exam Craniofacial: normal The head [...] the patient and prescribed the anesthesia plan. [facility] 03-22-2024 History and physical note I have [...] 05/23/2021 [facility] Bilateral diagnostic nasal/sinus endoscopy 08/04/2016 [facility] Bilateral maxillary functional endoscopic sinus surgery 07/14/2017 [facility] Colonoscopy/biopsy 14052 02/22/[address] [facility] Colonoscopy/biopsy 15131 07/06/2018 [facility] Egd w/ bx / colonoscopy w/ bx 12/29/2012 Egd/biopsy 75975 02/22/[address] [facility] Egd/biopsy 28626 07/06/2018 [facility] Exicisional biopsy 06/11/2018 [facility] submental lymph node Functional endoscopic sinus surgerysinusotomy,sphenoid,with or without biopsy; with mucosal stripping or removal of polyp(s) (bilateral) (bilateral, 08/20/2021 [facility] Hx adenoidectomy Hx colonoscopy with biopsy 2011 Hx nasal septoplasty, sinus surgery, turb reduction 07/23/2015 [facility] Hx tonsil and adenoidectomy performed twice Ileocecectomy 03/21/2016 [facility] Nasal sinus surgery 06/11/2018 [facility] maxillary, ethmoid Picc line placement 04/24/2014 05/30/14, 07/21/14 Right maxillary functional endoscopic sinus surgery with maxillary antrostomy, remove tissue 12/23/2018 [facility] Septoplasty, eua ears, karel cerumen rem, lt tube rem and tm rep, fess, egd w/ biopsy, colonoscopy w/ biopsy 11/15/2019 [facility] / Cyndie Single incision laparoscopic surgical ileocectomy 03/21/2016 [facility] Tonsillectomy Current Medications Outpatient Medications Dosage ustekinumab 90 mg/mL subcutaneous syringe (Stelara) Inject 1 mL under skin every 8 weeks. sodium chloride, sodium bicarb-nasal rinse squeeze bottle with packet ([facility] Sinus) Place 1 Packet in each nostril [...] Comments as of 12/18/2022 Stelara approved through [employer] 12/18/22-12/18/23 PA# [id number] (TDS) Stelara approved through [employer] BC[employer] 12/24/21-12/24/22 PA# [id number] (TDS) Humira approved through [employer] 10/09/2021-10/09/2022 PA# [id number] (SY) Rituxan 1000 mg x 2 doses, 2 weeks apart approved through [employer] 01/11/21-02/08/21 (SJD), ref# [id number] Humira every 10 days approved through [facility] 10/11/20-10/11/21 [id number] (AUGUST) Rituxan 500 mg/50 ml vial (J9312) PA approved through [employer] for one visit from 01/12/2020 - 02/11/2020 Reference # [id number] () Humira weekly approved through [facility] 12/16/19-12/15/20 [id number] (AUGUST) [employer] [facility] [employer] has approved Rituxan 1000mg every 6 months from 05-26-2018 through 05-25-2019 under PA# [id number] Humira PA approved through [employer] 09/13/18-10/13/19 PA# [id number] (TDS) Humira PA approved through [employer] 06/08/2018-10/06/2018 PA # [id number] (TDS) [employer] [facility] has approved Rituxan 1000mg every 6 months from 05-26-2018 through 05-25-2019 under PA# [id number]. Medication will need to be dispensed by [facility] in [place], [place]. As of 12/02/17 Solumedrol does not require a [place] tor PreD hrough [employer] for J2920,44949 and 16857 (KH) Ritux approved by [employer] X2 doses from 11/27/17-11/26/18, PA# [id number] (margarita) Ritux approved by [employer] via ramw-xz-zxvg, PA# [id number], valid 05/26/17 to 05/25/18 (margarita) Ritux jacinta roved by [employer] after fipg-gh-owvt review, Valid 11/24/16-05/25/17, PA# [id number] (margarita) As of 06/24/16, no PA or PreD needed for Solumedrol [id number], [id number] with Jimmy (margarita) Physical Exam Craniofacial: normal The head is [...] the anesthesia plan. documented in this encounter [facility] 03-22-2024 Hospital Discharge instructions Geovanna Lima APN - 03/22/2024 1:03 PM EST ------- ENT HOME INSTRUCTIONS ------- Post Op Sinus Surgery, Nasal Cautery and Left Myringoplasty: Your surgery was done by Dr. Lee. If you have any questions call our clinic at [phone]. What to Expect: - It is normal [...] child's follow-up appointment Levaquin: As Prescribed Saline [place]: Nasal irrigation 2 times a day until follow-up appointment. If unable to tolerate irrigations you will need to use Nasal Saline spray. Nasal saline spray 3 sprays 3 times a day until follow-up. Nasal ointment/Vaseline Twice per Day for 7 days FOLLOW-UP: Provider Department Center 05/04/2024 11:30 AM Zhou Lee MD ENT Clinic [facility] If you need to speak with a nurse please call the ENT Nurse Triage Line ([phone]). For appointments, please call: Central Scheduling of the ENT clinic . [facility] . Please ask for ENT resident space control supervisor if after hours. documented in this encounter [facility] 03-15-2024 Telephone encounter Note Summary: surgery rescheduled Called Patient to reschedule surgery, now scheduled with Dr Lee in [facility] on 03/22/24. Post op rescheduled. Patient aware of NPO. Consent DOS. Patient had no further questions. [facility] 03-15-2024 Miscellaneous Notes Summary: surgery rescheduled Called Patient to reschedule surgery, now scheduled with Dr Lee in [facility] on 03/22/24. Post op rescheduled. Patient aware of NPO. Consent DOS. Patient had no further questions. documented in this encounter [facility] 03-03-2024 Telephone encounter Note Summary: surgery scheduled Called Patient to schedule surgery with Dr Lee in [facility] on 05/10/24. Post op scheduled. Patient aware of NPO. Consent DOS. Patient had no further questions. [facility] 03-03-2024 Miscellaneous Notes Summary: surgery scheduled Called Patient to schedule surgery with Dr Lee in [facility] on 05/10/24. Post op scheduled. Patient aware of NPO. Consent DOS. Patient had no further questions. documented in this encounter [facility] 02-29-2024 Note REASON FOR EXAM: letha [...] of the face and orbits are normal. [facility] RAD[facility]OLOG[facility] 02-29-2024 Hospital Discharge instructions May Brewer - 02/29/2024 9:30 AM EST Your child received a CT without Contrast today. The results will be made available to the ordering provider. Please follow up with the provider for any questions or concerns. documented in this encounter [facility] 02-29-2024 Note REASON FOR EXAM: letha [...] Yann Phillips MD on 02/29/2024 9:38 AM [facility] 02-16-2024 Telephone encounter Note Pt called back. Plan reviewed. No further needs at this time. [facility] 02-16-2024 Miscellaneous Notes Pt called back. Plan reviewed. No further needs at this time. Addended by: NAIMA COATES on: 02/16/2024 02:36 PM Modules accepted: Orders Received tabulate message from patient via her son's tabulate due to not being able to access tabulate: Kirstin, I am a patient with Dr [...] for assistance with mychart. Forwarding message to fresh foods technician for review. documented in this encounter [facility] 02-16-2024 Note Addended by: NAIMA COATES on: 02/16/2024 02:36 PM Modules accepted: Orders [facility] 02-16-2024 Telephone encounter Note Received tabulate message from patient via her son's Urakkamaailma.[email or web address] due to not being able to access tabulate: Kirstin, I am a patient with Dr Lee as well Kings [place] 2000, for some reason once I got [...] for assistance with mychart. Forwarding message to fresh foods technician for review. [facility] 02-10-2024 History of Present illness Narrative Images [...] medications. documented in this encounter [facility] 01-27-2024 History of Present illness Narrative Images [...] tenderness or frontal sinus tenderness. Mouth/Throat: Lips: [place]. Mouth: Mucous membranes are moist. Pharynx: Oropharynx [...] (CMS/HCC) documented in this encounter [facility] 11-18-2023 Nurse Note Patient to PACU from [...] facility. documented in this encounter [facility] 11-18-2023 Nurse Surgical operation note Patient [...] vehicle for departure from facility. [facility] 11-18-2023 History and physical note ENDOSCOPIC PREPROCEDURE HISTORY AND PHYSICAL HISTORY OF PRESENT ILLNESS: Kings Hatfield is a 23 y.o. female seen in the preoprocedure area at [facility]. The indication for endoscopic evaluation [...] Anesthesia Care. Sharath Lambert MD [facility] Work Phone: 11-18-2023 History and physical note ENDOSCOPIC PREPROCEDURE HISTORY AND PHYSICAL HISTORY OF PRESENT ILLNESS: Kings Hatfield is a 23 y.o. female seen in the preoprocedure area at [facility]. The indication for endoscopic evaluation [...] Lambert MD documented in this encounter [facility] 08-06-2023 History of Present illness Narrative [...] and treatment Crohn's Disease - diagnosed at [facility] 2011. Therapy has included 6MP, infliximab, stopped due to severe scalp psoriasis), vedolizumab, ustekinumab, adalimumab. She underwent ileocecal resection in 03/2016. Most recent colonoscopy was in 2019. 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 See imaging and biopsy results below. Therapy has included methylprednisolone pulses, methotrexate [id number] (with interruptions; stopped due to inefficacy and frequent infections), rituximab x 2 11/2016, 11/2017, 12/2018, 01/2020, 01/2021, 12/2021. Difficult course with multiple admissions for management of this problem. Psoriasis - diagnosed at [facility] - developed psoriasis of scalp while taking infliximab Hidradenitis suppurativa - diagnosed at [facility]; primarily treated with topical therapies. Pulmonary [...] tight but is not painful. Current providers: FRONT EDGER: Alfredo Duong CNM MFM: Dr. Ruchi Carmona Pulmonary: Dr. Xiomara Zurita IBD: Teresa Peterson ENT: Dr. Lee at [facility] Ophtho: need to confirm Does not [...] viral inclusions seen. IMAGING MRI orbits 07/31/2014 ([facility]): TECHNICAL COMMENTS Contrast Type: Optiray 320 [...] is noted. This is best seen on national van truck driver CT of the brain as the contrast [...] ABDOMEN: Grossly normal. CT chest no contrast [facility] 04/19/2020 REASON FOR EXAM: immune suppression, [...] nodules as described above. Bone density 09/16/2018 ([facility]) normal for debo Assessment: Kings Hatfield [...] GI - GI team provided recommendations that should not receive live virus vaccines for 6 months due to ustekinumab therapy and potential to cross placenta Obtain doppler ultrasound of left leg to exclude DVT - to be done today close to home 4. Labs reviewed- no additional labs ordered. 5. At next visit need to confirm primary care provider, ip paralegal Follow up: I will see her for a 6 week video visit - she was instructed to contact me sooner if problems Addendum: External ultrasound of doppler of LLE was negative for DVT documented in this encounter [facility] 08-06-2023 Instructions Christine Mckeon MD - 08/06/2023 12:00 PM EDT Nice to see you today! Please have ultrasound done of left leg within 24 hours either at [facility] or [facility] History of Present illness [...] told Crohn's moved to mouth. Went to [facility] and this stopped working. On Rituximab for [...] IBD history Diagnosed (age): 10 Disease distribution: [place] Classification: CD: A1 <16, L3 ileocolonic GI surgical history: Ileocectomy 2015 Current therapy: Stelara [id number] Past therapy: Infliximab(stopped due to severe scalp [...] Low Risk (02/09/2023) Received from [facility] Overall Financial Resource Strain (CARDIA) Difficulty of Paying Living Expenses: Not hard at all Food Insecurity: No Food Insecurity (04/24/2023) Received from [facility] Hunger Screening Within the past 12 months we worried whether our food would run out before we got money to buy more.: Never True Within the past 12 months the food we bought just didn't last and we didn't have money to get more.: Never True Transportation Needs: No Transportation Needs (02/09/2023) Received from [facility] PRAPARE - Transportation Lack of Transportation (Medical): No Lack of Transportation (Non-Medical): No Physical Activity: Sufficiently Active (02/09/2023) Received from [facility] Exercise Vital Sign Days of Exercise per Week: 6 days Minutes of Exercise per Session: 40 min Stress: No Stress Concern Present (02/09/2023) Received from [facility] [place] of Occupational Health - Occupational Stress Questionnaire Feeling of Stress : Not at all Social Connections: Moderately Isolated (02/09/2023) Received from [facility] Social Connection and Isolation Panel [NHANES] Frequency of Communication with Friends and Family: More than three times a week Frequency of Social Gatherings with Friends and Family: Twice a week Attends Orthodoxy Services: Never Active Member of Clubs or Organizations: No Attends Club or Organization Meetings: Never Marital Status: Living with partner Intimate Partner Violence: Not At Risk (02/09/2023) Received from [facility] Humiliation, Afraid, Rape, and Kick questionnaire Fear of Current or Ex-Partner: No Emotionally Abused: No Physically Abused: No Sexually Abused: No Housing Stability: Low Risk (02/09/2023) Received from [facility] Housing Stability Vital Sign Unable [...] STUDIES: Relevant radiology studies were reviewed in [facility] IMPRESSION: Kings Hatfield is a 22 y.o. female w/ PMH Ileocolonic Crohn's disease s/p ileocectomy 2016 on Stelara [id number], orbital myositits, psoriasis, chronic sinusitis here to [...] and . documented in this encounter [facility] 08-06-2023 Instructions DANIKA Cornelius - 08/06/2023 10:00 AM EDT - Continue Stelara every 8 weeks - Baby no live vaccines for 6 months (rotavirus) - Stool calprotectin - Will follow up with Rheumatology for orbital myositis - Will obtain colonoscopy next March - RTC 3 months documented in this encounter [facility] 04-24-2023 History of Present illness Narrative Headache/epigastric pain/blurry vision/swelling? No Cramping/contractions? No Abnormal vaginal discharge? No Spotting/vaginal bleeding? No Loss of fluid like your water may have broken? No Cats in the home? No Do you change the litter box? N/A Flu vaccine? No Genetic testing done this here or other office?Yes Have you been seen here at [facility] in a previous ? No Recent ER visits or hospitalizations? No Bring blood sugar log or meter with you today? (Please bring them with you for every visit at [facility]) N/A Traveled outside the country in the [...] Maternal Crohn's disease affecting in second trimester ([facility]). Diagnoses of History of chronic ulcerative colitis and 19 weeks gestation of were also pertinent to this visit. She has had low risk aneuploidy screen for select aneuploidy of chromosomes 21, 13, 18 and sex chromosomes. Review of systems: Review of systems was noncontributory Complications: Problem List Items Addressed This Visit None Visit Diagnoses Maternal Crohn's disease affecting in second trimester ([facility]) - Primary History of chronic ulcerative colitis 19 weeks gestation of PMH: Past Medical History: Diagnosis Date Anemia Crohn's disease ([facility]) GERD (gastroesophageal reflux disease) Myositis [...] Maternal Crohn's disease affecting in second trimester ([facility]) 2. History of chronic ulcerative [...] Crohn's disease s/p ileocectomy 2016 on Stelara [id number], orbital myositits, psoriasis, chronic sinusitis Per gastroenterology: PLAN/RECOMMENDATIONS: -Chem 6 and LFT's ordered -CRP and stool calprotectin -Quantiferon TB, TPMT and chronic hepatitis panel ordered -Some nutrition labs ordered -UST level ordered -Continue Stelara every 8 weeks. Will plan for Stelara to be given 8 weeks or so prior to delivery and then shortly after. Following with high school coach -Will follow up with Rheumatology for orbital [...] Maternal Crohn's disease affecting in second trimester ([facility]) [O99.612, K50.90] Recommendations: Follow-up detailed [...] continue with routine care in your office [facility], the CDC, and other organizations representing maternal and public health professionals recommend that , , and lactating people and those considering receive the COVID-19 vaccination. Vaccination is the best method to reduce maternal and complications of SARS-CoV-2 infection. This document was created with [employer] technology. Though I make every effort to review the dictation as it is transcribed, on occasion the spoken word can be misinterpreted by the technology leading to inappropriate words, phrases, or sentences. This note is addressed to the requesting provider as a consultation for clinical guidance. Specific medical abbreviations are occasionally used and those are generally approved by the [place]?Board of?Obstetrics and?Gynecology?as well as?Earle knight abbreviations. The above plan of care was based solely on the diagnoses for which a consultation was requested. ?More frequent testing may be indicated based on her other medical/obstetrical conditions. The management of other or medical conditions is beyond the scope of requested consultation and will continue to be followed by the primary proration clerk or primary care provider. Thank you for [...] procedures Referring and communicating with other health child care nurse (not separately reported) Documenting clinical information in the electronic or other health record Independently interpreting results (not separately reported) and communicating results to the patient/family/caregiver Care coordination (not separately reported) documented in this encounter [facility] 04-03-2023 History of Present illness Narrative MA to room to draw Anser UST- red serum tube Pt identified with name and 1 attempt made in right Antecubital fossa- success Excessive Bleeding or Bruising at draw site: no documented in this encounter [facility] 03-03-2023 Telephone encounter Note Noted. Pete Jaramillo [facility] 03-03-2023 Miscellaneous Notes Noted. Thanks Ella Spoke with Kings. She has established care w/[facility]. She has appoints (at [facility]) in March and April. placed on chart. documented in this encounter [facility] 03-03-2023 Telephone encounter Note Spoke with Kings. She has established care w/[facility]. She has appoints (at [facility]) in March and April. [place] placed on chart. [facility] 02-25-2023 History of Present illness Narrative [facility] Chief Complaint Patient presents with New Patient : 22 y.o. female sent in consultation by Javier Arriola MD for evaluation of Crohn's disease. HISTORY OF PRESENT ILLNESS Kings Hatfield is a 22 y.o. female w/ [facility] Ileocolonic Crohn's disease Stelara, orbital myositits, [...] told Crohn's moved to mouth. Went to [facility] and this stopped working. On Rituximab for [...] surgical history: Ileocectomy 2016 Current therapy: Stelara [id number] Past therapy: Infliximab(stopped due to severe scalp [...] Crohn's disease s/p ileocectomy 2016 on Stelara [id number], orbital myositits, psoriasis, chronic sinusitis here to [...] then shortly after. Following with high school coach -Will follow up with Rheumatology for orbital [...] MD Division of Gastroenterology, Hepatology, and Nutrition Pager:[phone] This MA verified patients name and . documented in this encounter [facility] 02-25-2023 Instructions Kye Solis MD - 02/25/2023 1:00 PM EST Thank you for coming to [facility] Gastroenterology, Hepatology, and Nutrition. It was [...] will either call you, send you a tabulate message, or mail you a letter with the results of your tests within 1-2 weeks after you have completed your tests. If you do not hear from our office, please call the clinic to receive your results at [phone]. If you need to fax old records in, please fax to [phone]. --------- If you have any concerning symptoms, please seek immediate medical attention. documented in this encounter [facility] 01-26-2023 Hospital Discharge instructions Zhou Aly MD - 01/26/2023 11:16 AM EDT It was a pleasure seeing Kings today. Have a ferritin checked in 3-4 months to ensure no need for iron infusion. We will work on finding an adult Tank Erector to follow with at [facility]. Hematology Clinic Patient Instructions Please call if you have any questions or concerns about your child's care during the hours of 8-5 Thursday through Thursday. After 5PM on weekdays or on weekends please call the hospital planing machine operator and ask for the chucking lathe operator space control supervisor. documented in this encounter [facility] 01-26-2023 History of Present illness Narrative Informant: self mother Patient is a 22yo her for f/u recurrent sinusitis. History turbs and sinus surgery 03/20/22. Doing well. [facility] P[facility] OTOLARYNGOLOGY FOLLOW UP VISIT NOTE Chey Aragon MD [address] [place] [address] Kings Hatfield is a 22 year female [...] Labs: None Outside medical record review: None [facility] chart review: Previous ENT notes reviewed [...] OPTIONS: F/U PRN documented in this encounter [facility] 01-26-2023 Instructions Milind Suazo RN - 01/26/2023 10:00 AM EDT You do not need to schedule an ENT office visit at this time but we are happy to see you in the future for any additional ENT concerns. Please call Central Scheduling at [phone] and follow the prompts to schedule an ENT office visit should you need a future appointment in the ENT clinic. Call us at [phone] to speak to a nurse if you should have any additional ENT- related questions or concerns after today s visit. Department of Otolaryngology (ENT) Patient Instructions ENT Nurse Triage Line: [phone] (Thursday through Thursday 8:00 am - 4:00 pm) Please call the ENT Nurse Triage Line if you need to speak to a nurse for any ENT- related medical concerns prior to your next appointment. [facility] Garbage Stoker: [phone] (Weekdays after 4:00 pm and on Weekends) If you have urgent ENT concerns for your child after hours that can t wait until our return to the office, please call the hospital planing machine operator and ask to speak to the ENT physician space control supervisor. [facility] Central [phone] (Thursday through Thursday 7:30 am -5:30 pm) Please call Central Scheduling and follow the prompts to schedule an ENT appointment if you did not schedule an appointment today, or if you need to cancel and reschedule a future appointment. For more information about the Department of Otolaryngology (Ear, Nose and Throat) at [facility], please visit our website at: [email or web address] documented in this encounter [facility] 01-26-2023 History of Present illness Narrative [...] bursitis. She had an adjustment with an marine mammal trainer. She has been given stretches. She uses KT tape. She has the most difficulty with sleep. Ice helps on occasion. She is 7 weeks . She has an appointment with a high school coach/GYN in the next couple of weeks. She [...] Patient Global: 0 mm Provider Global: -- [facility] 10: -- Tests/ External Records Reviewed: I reviewed this information: Diagnostic Labs Toxicity Monitoring Labs Inflammatory Markers MRI Pathology reports Latest Reference Range & Units Most Recent (1,3)-UFLF-D-SUFQEC pg/mL <31 04/15/19 21:20 (1,3)-HBXK-L-RWTYWC INTERP Negative Negative 04/15/19 21:20 ALBUMIN, CSF [...] AB TITER (IFA) NEG^Negative Negative 08/07/14 05:48 TOMY-MEDICAL SALES NEG^Negative Negative 08/07/14 05:48 TMOY-SM NEG^Negative Negative 08/07/14 05:48 TOMY-SSA NEG^Negative Negative [...] had a flare of orbital myositis since 2020. Her most recent rituximab dose was 1 [...] appropriate to have her see an adult detention deputy in the case of a flare as [...] with Dr. Mckeon documented in this encounter [facility] 01-26-2023 Instructions Ioana Otero MD - [...] to reach Rheumatology 1. Sign up for [employer] to use a secure e-mail system for non-urgent issues (this is NOT checked on weekends). 2. For medical questions between 8 am - 4 pm, call our nurse line at [phone] option 2. 3. For medical questions at night, over the weekend or a holiday, call the hospital planing machine operator at [phone] and ask to talk to the Ecd. 4. To schedule or change an appointment, call Central Scheduling at [phone], press option 4, then option 7. 5. For other nonmedical questions, call a secretary board of commissioners at [phone], option 4. 6. If you cannot reach a person and need information the same day, call the hospital planing machine operator at [phone] and ask to talk to the Ecd space control supervisor. documented in this encounter [facility] 01-21-2023 Telephone encounter Note Received fax from [facility]. Printed and placed on Dr. Otero's door for review and/or signature. [facility] 01-21-2023 Miscellaneous Notes Received fax from [facility]. Printed and placed on Dr. Otero's door for review and/or signature. documented in this encounter [facility] 01-09-2023 Telephone encounter Note Pharmacy Note Reviewed medications for risk: -Rituximab: last dose received 01/2022. Will review registry data with primary rheumatology team. Per ACR guidelines, risk of B cell depletion if dosed in second half of . -Carlitos (managed by GI): Dr. Agee recommended continuing with the January dose. Plans to then transition to adult firefighter type one [facility] 01-09-2023 Miscellaneous Notes Pharmacy Note Reviewed medications for risk: -Rituximab: last dose received 01/2022. Will review registry data with primary rheumatology team. Per ACR guidelines, risk of B cell depletion if dosed in second half of . -Carlitos (managed by GI): Dr. Agee recommended continuing with the January dose. Plans to then transition to adult firefighter type one Received incoming call that Kings is . Diagnosis Orbital myositis Primary Ecd Ioana Otero How did patient find out about Home test Date of last menses 12/08/2022 Last dose of each teratogenic medication (methotrexate, leflunomide, cyclophosphamide, NSAID, ACEi) N/a - no recent NSAID's Do you have appt with FRONT EDGER? Yes, date of appt 02/04/2023 If underage, is family aware? N/A - mom is aware Best phone number for follow up [phone] Is it okay to leave message on preferred phone? Yes Recommendations for patient: 1. Hold teratogenic medication (methotrexate, leflunomide, cyclophosphamide, NSAID, ACEi) 2. Do not stop hydroxychloroquine or prednisone (if applicable) 3. Start vitamin 4. Follow up with other prescribers/clinics to evaluate non-rheumatology medications Recommendation for nurses: Notify team : Primary detention deputy, Christine Hernandes Recommendations for providers: 1. Order serum test, if needed 2. Further evaluate current medications 3. Refer to [facility], if needed 4. Follow up with patient within 24 hours Patient is in the process of informing all [facility] specialists. She has talked to GI and received guidance. She is taking a vitamin. Ideally Kings would like to keep her January follow-ups here at [facility] and then transition to adult rheum/GI closer to home. Dr. Otero/Geovanna please advise documented in this encounter [facility] 01-09-2023 Telephone encounter Note Received incoming call that Kings is . Diagnosis Orbital myositis Primary Ecd Ioana Otero How did patient find out about Home test Date of last menses 12/08/2022 Last dose of each teratogenic medication (methotrexate, leflunomide, cyclophosphamide, NSAID, ACEi) N/a - no recent NSAID's Do you have appt with FRONT EDGER? Yes, date of appt 02/04/2023 If underage, is family aware? N/A - mom is aware Best phone number for follow up [phone] Is it okay to leave message on preferred phone? Yes Recommendations for patient: 1. Hold teratogenic medication (methotrexate, leflunomide, cyclophosphamide, NSAID, ACEi) 2. Do not stop hydroxychloroquine or prednisone (if applicable) 3. Start vitamin 4. Follow up with other prescribers/clinics to evaluate non-rheumatology medications Recommendation for nurses: Notify team : Primary detention deputy, Christine Hernandes Recommendations for providers: 1. Order serum test, if needed 2. Further evaluate current medications 3. Refer to [facility], if needed 4. Follow up with patient within 24 hours Patient is in the process of informing all [facility] specialists. She has talked to GI and received guidance. She is taking a vitamin. Ideally Kings would like to keep her October follow-ups here at [facility] and then transition to adult rheum/GI closer to home. Dr. Otero/Geovanna please advise [facility] 12-26-2022 Telephone encounter Note TP updated, flagged ready for PA. [facility] 12-26-2022 Miscellaneous Notes TP updated, flagged [...] needed. Thank you! documented in this encounter [facility] 12-26-2022 Telephone encounter Note Rituximab added back into the therapy plan. [facility] Work Phone: 12-23-2022 Telephone encounter Note Signed. Thank you. [facility] 12-23-2022 Miscellaneous Notes Signed. Thank you. Stelara refill request received from pharmacy. Pended for review. OV scheduled for 02/18/23. Labs recently ordered to be obtained before the visit. documented in this encounter [facility] 12-23-2022 Telephone encounter Note Stelara refill request received from pharmacy. Pended for review. OV scheduled for 02/18/23. Labs recently ordered to be obtained before the visit. [facility] 12-19-2022 Telephone encounter Note Informed by Geovanna Centeno with SP that Ritux no longer in TP. Dr. Otero please re-add medication/update TP, and inform nursing when complete. Then will update SP to re-PA. Thank you! [facility] 12-19-2022 Telephone encounter Note Sent referral back to Pharmacy PA for Infusions Team via WQ to be re-authorized. Dr. Otero FYI only (nothing needed from you at this time- will alert you with any issues with the PA) [facility] 12-18-2022 History of Present illness Narrative Prior Authorization for Specialty Medication Clinic: GI Diagnosis: K50.819 - Crohns Medication name: Stelara Medication dose: 90mg Medication frequency: Every 8 weeks Reason for PA: Sue Rogers's Prior Authorization has been APPROVED. Insurance #1: Jimmy COLE PA Type: Pharmacy PA Status: Approved Approved from: 12/18/22 Approved to: 12/18/23 PA #: [id number] Filling Pharmacy: Other ([facility]) Prior Authorization for Specialty Medication Clinic: GI Diagnosis: K50.819 - Crohns Medication name: Stelara Medication dose: 90mg Medication frequency: Every 8 weeks Reason for PA: Sue Rogers'antonia Prior Authorization has been SUBMITTED. Insurance #1: Jimmy COLE PA Type: Pharmacy PA Status: Submitted Information submitted: Office Note Method of submission : CoverMyMeds documented in this encounter [facility] 12-17-2022 Telephone encounter Note Per encounter [...] SP to PA if needed. Thank you! [facility] 11-21-2022 Telephone encounter Note Pt called to change yearly followup appointment to a different day in order to line up with other appointments due to having a long commute. Pt rescheduled for 01/[address] Aly. [facility] 11-21-2022 Miscellaneous Notes Pt called to change yearly followup appointment to a different day in order to line up with other appointments due to having a long commute. Pt rescheduled for 01/[address] Aly. documented in this encounter [facility] 09-24-2022 Telephone encounter Note Patient called back to schedule 01-05-[address] lee, post op made, pt aware of pat call [facility] Work Phone: 09-24-2022 Miscellaneous Notes Patient called back to schedule 01-05-[address] lee, post op made, pt aware of pat call documented in this encounter [facility] 09-04-2022 History of Present illness Narrative Per [facility] R[facility] Letter #9, [facility] requested clinicals be sent. Clinicals sent via fax on 09.03.2022. documented in this encounter [facility] 07-16-2022 History of Present illness Narrative Faxed [facility] reapplication to [phone]. Scanned into the chart. documented in this encounter [facility] 05-05-2022 History of Present illness Narrative MD [address] [place] [id number] 21 year old female here today for post op. 03/20/2022 Turbinate and sinus surgery. Saline rinses and flonase prn. No new concerns. [facility] PEDI[facility] OTOLARYNGOLOGY FOLLOW UP VISIT NOTE [place] [address] Kings Hatfield is a 21 year female [...] Labs: None Outside medical record review: None [facility] chart review: Previous ENT notes reviewed [...] OPTIONS: F/U PRN documented in this encounter [facility] 05-05-2022 Instructions Yoana Farrar RN - 05/05/2022 11:30 AM EST Department of Otolaryngology (ENT) Patient Instructions ENT Nurse Triage Line: [phone] (Thursday through Thursday 8:00 am - 4:00 pm) Please call the ENT Nurse Triage Line if you need to speak to a nurse for any ENT- related medical concerns prior to your next appointment. [facility] Garbage Stoker: [phone] (Weekdays after 4:00 pm and on Weekends) If you have urgent ENT concerns for your child after hours that can t wait until our return to the office, please call the hospital planing machine operator and ask to speak to the ENT physician space control supervisor. [facility] Central [phone] (Thursday through Thursday 7:30 am -5:30 pm) Please call Central Scheduling and follow the prompts to schedule an ENT appointment if you did not schedule an appointment today, or if you need to cancel and reschedule a future appointment. For more information about the Department of Otolaryngology (Ear, Nose and Throat) at [facility], please visit our website at: [email or web address] You do not need to schedule an ENT office visit at this time but we are happy to see you in the future for any additional ENT concerns. Please call Central Scheduling at [phone] and follow the prompts to schedule an ENT office visit should you need a future appointment in the ENT clinic. Call us at [phone] to speak to a nurse if you should have any additional ENT- related questions or concerns after today s visit. documented in this encounter [facility] 04-08-2022 Telephone encounter Note Telephone Follow-Up [...] parents / patient has concerns: No concerns [facility] 04-08-2022 Miscellaneous Notes Telephone Follow-Up Excision [...] concerns: No concerns documented in this encounter [facility] 03-18-2022 Telephone encounter Note Status denied. A possible peer to peer review with ENT is possible. Awaiting to hear from them [facility] 03-18-2022 Miscellaneous Notes Status denied. A possible peer to peer review with ENT is possible. Awaiting to hear from them Status checked at this time, denied Submitted appeal, ID is [id number] Received denial on [employer] web portal. Spoke with industrial sales representative on the phone and was told to fax clinicals for reconsideration. Clinicals faxed to [phone]. Authorization pending via [employer] portal. Pediatric Surgery Pre-Schedule/Certification Information Patient Information: Name: Kings Hatfield Date of : 2000 Case and Schedule Information: Surgeon: Dr. Lakisha Narayan Case: ENT Admit Type: OP Location: OR CPT: 86921 Procedure or Exam Description: EXCISION OF SKIN AND SUBCUTANEOUS TISSUE ICD10 Code: L 72.3 Scheduled Date: 03/20/22 documented in this encounter [facility] 03-14-2022 Telephone encounter Note Status checked at this time, denied Submitted appeal, ID is [id number] [facility] 03-11-2022 Telephone encounter Note Received denial on [employer] portal. Spoke with industrial sales representative on the phone and was told to fax clinicals for reconsideration. Clinicals faxed to [phone]. [facility] 02-27-2022 Telephone encounter Note Authorization pending via [employer] portal. [facility] 02-06-2022 Telephone encounter Note Pediatric Surgery Pre-Schedule/Certification Information Patient Information: Name: Kings Hatfield Date of : 2000 Case and Schedule Information: Surgeon: Dr. Lakisha Narayan Case: ENT Admit Type: OP Location: OR CPT: 26499 Procedure or Exam Description: EXCISION OF SKIN AND SUBCUTANEOUS TISSUE ICD10 Code: L 72.3 Scheduled Date: 03/20/22 [facility] 08-06-2021 Note HISTORY: Eye swellin g PROCEDURE: [employer] VCT 64. Without IV contrast, images of [...] signed by Herbie Pace on 08/06/2021 1523 [facility] Remarketing Rep Evaluation note Diagnosis Orbital myositis, unspecified laterality- Primary Chronic sinusitis, unspecified location [facility] Diagnosis Chronic sinusitis, unspecified location- Primary [facility]* Diagnosis Iron deficiency Other disorders of iron metabolism documented [facility]* Diagnosis Orbital myositis, unspecified laterality- Primary Crohn's disease of small and large intestines with complication Immunosuppressed status Unspecified disorder of immune mechanism Chronic pansinusitis Other chronic sinusitis Pulmonary nodules Other nonspecific abnormal finding of lung field Psoriasis Other psoriasis Less than 8 weeks gestation of state, incidental [facility]* Diagnosis Crohn's disease of both small and large intestine with complication- Primary Regional enteritis of small intestine with large intestine Orbital myositis, unspecified laterality 11 weeks gestation of state, incidental [facility] Diagnosis Crohn's disease of both small and large intestine with complication- Primary Regional enteritis of small intestine with large intestine [facility] Diagnosis Viral URI- Primary Acute [...] remission- Primary [facility] Diagnosis Orbital myositis, unspecified laterality- Primary Crohn's disease of small and large intestines with complication Immunosuppressed status Unspecified disorder of immune mechanism Chronic pansinusitis Other chronic sinusitis Pulmonary nodules Other nonspecific abnormal finding of lung field Psoriasis Other psoriasis Less than 8 weeks gestation of state, incidental Left leg swelling Psoriasis of scalp Other psoriasis [facility] assessment information available [facility] Work Phone: Evaluation note* Diagnosis Crohn's disease of both small and large intestine with complication Regional enteritis of small intestine with large intestine [facility] Diagnosis Encounter for wellness examination [...] small and large intestine with unspecified complications ([facility]) [facility]* Diagnosis Anxiety- Primary Anxiety state, unspecified documented in this encounter [facility]* Diagnosis Chronic sinusitis, unspecified location- Primary [facility] Diagnosis Psoriasis- Primary Other psoriasis Intertrigo- Primary Other specified erythematous condition Psoriasis Other psoriasis Psoriasis Other psoriasis Chronic sinusitis, unspecified location Chronic maxillary sinusitis Epistaxis [facility] Diagnosis Psoriasis- Primary Other psoriasis Intertrigo- Primary Other specified erythematous condition Psoriasis Other psoriasis Psoriasis Other psoriasis Perforation of left tympanic membrane- Primary Perforation of tympanic membrane, unspecified [facility] this [facility] Diagnosis Viral URI- Primary Acute upper respiratory infections of unspecified site Fever, unspecified fever cause [facility]* Diagnosis Maternal Crohn's disease affecting in second trimester ([facility])- Primary History of chronic ulcerative colitis 19 weeks gestation of [facility] Diagnosis Maternal Crohn's disease affecting in second trimester ([facility])- Primary [facility] Diagnosis Maternal Crohn's disease affecting in second trimester ([facility])- Primary History of chronic ulcerative colitis [facility]* Diagnosis Nonintractable episodic headache, unspecified headache type- Primary [facility]* Diagnosis Nonintractable episodic headache, unspecified headache type- Primary documented in [facility] encounter [facility]* Diagnosis Immunocompromised patient ([facility])- Primary Nonintractable episodic headache, unspecified headache type 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 [facility]* Diagnosis Crohn's disease of both small and large intestine with complication Regional enteritis of small intestine with large intestine [facility] Diagnosis Crohn's disease of both small and large intestine with complication- Primary Regional enteritis of small intestine with large intestine [facility] Diagnosis Acute cough- Primary Acute [...] large intestine [facility] Diagnosis Crohn's disease of both small and large intestine with complication (HCC) Regional enteritis of small intestine with large intestine [facility] Diagnosis Crohn's disease of both small and large intestine with complication Regional enteritis of small intestine with large intestine [facility] Diagnosis Anorectal stricture- Primary Stenosis of rectum and anus Anorectal stricture Stenosis of rectum and anus Crohn's disease of both small and large intestine with complication Regional enteritis of small intestine with large intestine [facility] Diagnosis Anorectal stricture- Primary Stenosis of rectum and anus Anorectal stricture Stenosis of rectum and anus Crohn's disease of both small and large intestine with complication Regional enteritis of small intestine with large intestine [facility] N[facility]* Rubia Hernandez NP - 05/26/2023 7:30 PM ESTAssociated Order(s): Ear Cerumen Removal Post-Procedure Diagnose(s): Bilateral impacted cerumen Kings Hatfield is a 22 y.o. female presents with chief complaint of Earache HPI: Patient is here for earache. 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 documented in this encounterSaint [facility] CenterInstructionsNot on filedocumented in this encounterProHenry County Hospital SystemInstructionsNot on filedocumented in this encounterProHenry County Hospital SystemInstructionsNot on filedocumented in this encounterProWestern Reserve HospitalInstructionsNot on filedocumented in this encounterMemorial Health System [facility] HospitalReason for referral (narrative)* Consultation (Routine) - New Request Specialty Diagnoses / Procedures Referred By Wayne liz Referred To Contact Rheumatology Diagnoses Orbital myositis, unspecified laterality Crohn's disease of small and large intestines with complication Immunosuppressed status Chronic pansinusitis Pulmonary nodules Psoriasis Less than 8 weeks gestation of Ioana Otero MD [address] [place] [address] Referral ID Status Reason Start Date Expiration Date Visits Requested Visits Authorized [id number] New Request Specialty Services Required 3 7 7 [facility] for visit Narrative* Treatment Plan and Therapy Plan (Routine) - Authorized Specialty Diagnoses / Procedures Referred By Wayne liz Referred To Contact Diagnoses Crohn's disease of both small and large intestine with complication (HCC) Procedures SD GAMUNEX-C/GAMMAKED Shakira Orantes MD [address] [facility] [address] [place] [address] Stv 3c Med Surg [address] [place] [address] Referral ID Status Reason Start Date Expiration Date V isits Requested Visits Authorized [id number] Authorized 08/09/2021 09/08/2021 1 1 [email or web address] Application Phone: reason for visit Narrative* Endoscopy (Emergency) - Closed Specialty Diagnoses / Procedures Referred By Wayne liz Referred To Contact Diagnoses Crohn's disease of both small and large intestine with complication Procedures DIAGNOSTIC COLONOSCOPY SD COLONOSCOPY FLX DX W/COLLJ SPEC WHEN PFRMD Milind Fitch, SHANTELL-BASKET MAKER [address] [place] [address] Phone: tel: fax: Referral ID Status Reason Start Date Expiration Date Visits Re quested Visits Authorized [id number] Closed 08/31/2024 09/25/2025 1 1 [facility] for visit Narrative* Imaging (Routine) - Closed Specialty Diagnoses / Procedures Referred By Wayne liz Referred To Contact Radiology Diagnoses Crohn's disease of both small and large intestine with complication (HCC) Procedures CT ENTEROGRAPHY W WO CONTRAST Clifford Rodas MD [address] [facility] [address], [place] [address] Phone: tel: fax: Referral ID Status Reason Start Date Expiration Date Visits Re quested Visits Authorized [id number] Closed 10/20/2024 10/19/2025 1 1 [facility] for visit Narrative* Auth/Cert Specialty Diagnoses / Procedures Referred By Wayne liz Referred To Contact Diagnoses Crohn's disease of both small and large intestine with complication Crohn's disease of both small and large intestine with complication [K50.819] Procedures SD ANRCT XM SURG REQ ANES GENERAL SPI/EDRL DX SD SIGMOIDOSCOPY FLX DX W/COLLJ SPEC BR/WA IF PFRMD EXAM UNDER ANESTHESIA ANORECTAL SIGMOIDOSCOPY DIAGNOSTIC Clifford Rodas MD [address] [place] [address] Phone: tel: fax: [facility] [address] [place] [address] Referral ID Status Reason Start Date Expiration Date Visits Re quested Visits Authorized [id number] 1 1 [facility] Summary Purpose Family History No Family History Records FoundNo Family History Records FoundNo Family History Records FoundNo Family History Records FoundNo Family History Records FoundNo Family History Records FoundNo Family History Records FoundNo Family History Records FoundNo Family History Records FoundNo Family History Records FoundNo Family History Records FoundNo Family History Records FoundNo Family History Records Found Advance Directives Documents on File Type Date Recorded Patient Computer Equipment Installer Expl anation ACP-Advance Directive ACP-Power of Solvent Plant Treater Latest Code Status on File Code Status Date Activated Date Inactivated Comments Full Code 07/26/2014 11:40 PM 07/28/2014 10:19 PM Full Code 07/19/2014 7:32 PM 07/25/2014 8:24 PM Full Code 07/02/2014 7:22 PM 07/07/2014 12:22 PM Full Code 04/20/2014 11:13 AM 04/26/2014 3:37 PM Full Code 03/24/2014 7:43 PM 03/25/2014 12:50 PM Documents on File Type Date Recorded 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 Computer Equipment Installer Expl anation ACP-Advance Directive ACP-Power of Solvent Plant Treater Latest Code Status on File Code Status [...] Clinic Appointment Request Ny Cool APN [address] [id number] Referral ID Status Reason Start Date Expiration Date Visits Requested Visits Authorized [id number] Authorization Not Required 3 1 1 Specialty Diagnoses / Procedures Referred By Contac t Referred To Contact Diagnoses Left leg swelling Procedures VASC DUPLEX VENOUS EXTREMITY LOWER LEFT SD DUPLEX EXTREM VENOUS,UNI OR LTD Christine Mckeon MD [address] [place] [address] Referral ID Status Reason Start Date Expiration Date V isits Requested Visits Authorized [id number] New Request 08/06/2023 08/30/2024 1 1 Specialty Diagnoses / Procedures Referred By Contac t Referred To Contact Diagnoses Crohn's disease of both small and large intestine with complication Procedures DIAGNOSTIC COLONOSCOPY SD COLONOSCOPY FLX DX W/COLLJ SPEC WHEN PFRMD Milind Fitch, CUTTING AND PRINTING MACHINE OPERATOR-BASKET MAKER [address] [place] [phone] Referral ID Status Reason Start Date Expiration Date Visits Re quested Visits Authorized [id number] Closed 10/22/2023 11/15/2024 1 1 Specialty Diagnoses / Procedures Referred By Contac t Referred To Contact RAD CAT Scan Diagnoses Chronic sinusitis, unspecified location Procedures CT Sinuses Stealth without Contrast Naima Coates CPNP-PC [address] [place] [address] Referral ID Status Reason Start Date Expiration Date V isits Requested Visits Authorized [id number] New Request 02/16/2024 1 1 Referral ID Status Reason Start Date Expiration Date Visits Requested Visits Authorized [id number] Authorization Not Required 02/16/2024 1 1 Specialty Diagnoses / Procedures Referred By Contac t Referred To Contact Maternal and Medicine Diagnoses Maternal Crohn's disease affecting in second trimester ([facility]) Procedures US MF with or without consult Krista Martinez MD [address] 1[address] [place] [address] [facility] Maternal Med [address] [place] [address] Referral ID Status Reason Start Date Expiration Date V isits Requested Visits Authorized [id number] Pending Review 04/27/2023 04/26/2024 1 1 Specialty Diagnoses / Procedures Referred By Contac t Referred To Contact Maternal and Medicine Diagnoses Maternal Crohn's disease affecting in second trimester [place] History of chronic ulcerative colitis Procedures US [facility] with or without consult Ruchi Carmona MD [address] [place] [address] [facility] Maternal Med [address] [place] [address] Referral ID Status Reason Start Date Expiration Date V isits Requested Visits Authorized [id number] Pending Review 06/01/2023 05/31/2024 1 1 Additional Source Comments INFORMATION SOURCE (unrecogn ized section and content) DATE CREATED AUTHOR 01/17/2020 [facility] DATE CREATED AUTHOR AUTHOR'S ORGANIZ ATION 08/14/[address] [facility] DATE CREATED AUTHOR AUTHOR'S ORGANIZ ATION 02/15/2022 [facility] pital DATE CREATED AUTHOR AUTHOR'S ORGANIZ ATION 04/05/2022 [facility] dical Specialist DATE CREATED AUTHOR AUTHOR'S ORGANIZ ATION 07/05/2023 [facility] DATE CREATED AUTHOR AUTHOR'S ORGANIZ ATION 09/09/2023 [facility] DATE CREATED AUTHOR AUTHOR'S ORGANIZ ATION 03/01/2024 [facility] DATE CREATED AUTHOR AUTHOR'S ORGANIZ ATION 03/02/2024 [facility] DATE CREATED AUTHOR AUTHOR'S ORGANIZ ATION 05/06/2024 [facility] DATE CREATED AUTHOR AUTHOR'S ORGANIZ ATION 07/16/2024 [facility] DATE CREATED AUTHOR AUTHOR'S ORGANIZ ATION 10/02/2024 [facility] dical Specialists [facility] DATE CREATED AUTHOR AUTHOR'S ORGANIZ ATION 11/01/2024 [facility] DATE CREATED AUTHOR AUTHOR'S ORGANIZ ATION 12/28/2024 [facility] Care Teams (unrecognized sec tion and content) Ceiling Cleaner Relationship Specialty Start [place] [address] PCP - General 08/23/12 Ceiling Cleaner Relationship Specialty Start Date End Date Chey Pillai MD [address] [place] [address] PCP - General Family Medicine 08/06/21 Ceiling Cleaner Relationship Specialty Start Date End Date Chey Aragon MD [address] [place] [address] PCP - General Family Medicine 01/30/20 Ceiling Cleaner Relationship Specialty Start Date End Date Chey Aragon MD [address] [place] [address] PCP - General Family Medicine 01/30/20 Ceiling Cleaner Relationship Specialty Start Date End Date Chey Aragon MD [address] [place] [address] PCP - General Family Medicine 01/30/20 Ceiling Cleaner Relationship Specialty Start Date End Date Chey Argaon MD [address] [place] [address] [place] [address] PCP - General Family Medicine 01/30/20 Ceiling Cleaner Relationship Specialty Start Date End Date Chey Aragon MD [address] [place] [address] PCP - General Family Medicine 01/30/20 Ceiling Cleaner Relationship Specialty Start Date End Date Chey Aragon MD [address] [place] [address] PCP - General Family Medicine 01/30/20 Ceiling Cleaner Relationship Specialty Start Date End Date Chey Aragon MD [address] [place] [address] PCP - General Family Medicine 01/30/20 Ceiling Cleaner Relationship Specialty Start Date End Date Chey Aragon MD [address] [place] [address] PCP - General Family Medicine 01/30/20 Ceiling Cleaner Relationship Specialty Start Date End Date Chey Aragon MD [address] [place] [address] PCP - General Family Medicine 01/30/20 Ceiling Cleaner Relationship Specialty Start Date End Date Chey Aragon MD [address] [place] [address] PCP - General Family Medicine 01/30/20 Ceiling Cleaner Relationship Specialty Start Date End Date Chey Aragon MD [address] [place] [address] PCP - General Family Medicine 01/30/20 Ceiling Cleaner Relationship Specialty Start Date End Date Chey Aragon MD [address] [place] [address] PCP - General Family Medicine 01/30/20 Ceiling Cleaner Relationship Specialty Start Date End Date Chey Aragon MD [address] [place] [address] PCP - General Family Medicine 01/30/20 Ceiling Cleaner Relationship Specialty Start Date End Date Chey Aragon MD [address] [place] [address] PCP - General Family Medicine 01/30/20 Ceiling Cleaner Relationship Specialty Start Date End Date Chey Aragon MD [address] [place] [address] PCP - General Family Medicine 01/30/20 Ceiling Cleaner Relationship Specialty Start Date End Date Chey Aragon MD [address] [place] [address] PCP - General Family Medicine 10/27/22 Chey Aragon MD [address] [place] [address] PCP - [facility] 04/13/23 Serene Alfred NP [address] [facility] [place] [address] Nurse Practitioner Family Medicine 10/27/22 Ceiling Cleaner Relationship Specialty Start Date End Date Chey Aragon MD [address] [place] [address] PCP - General Family Medicine 10/27/22 Chey Aragon MD [address] [place] [address] PCP - [facility] [employer] 04/13/23 Serene Alfred NP [address] [place] [address] Nurse Practitioner Family Medicine 10/27/22 Team Status: Inactive Member Role Status Dates Alfredo Duong APRN Attending Provider Active Start: September 03, 2023 End: September 03, 2023 Ceiling Cleaner Relationship Specialty Start Date End Date Chey Aragon MD [address] [place] [address] PCP - General Family Medicine 10/27/22 Chey Aragon MD [address] [place] [address] PCP - [facility] [employer] 03/13/23 Serene Alfred NP [address] [place] [address] Nurse Practitioner Family Medicine 10/27/22 Ceiling Cleaner Relationship Specialty Start Date End Date Chey Aragon MD [address] [place] [address] PCP - General Family Medicine 10/27/22 Chey Aragon MD [address] [place] [address] PCP - [facility] 03/13/23 Serene Alfred RANCH HAND SUPERVISOR [address] [place] [address] Nurse Practitioner Family Medicine 10/27/22 Ceiling Cleaner Relationship Specialty Start Date End Date Chey Aragon MD [address] [place] [address] PCP - General Family Medicine 10/27/22 Chey Aragon MD [address] [place] [address] PCP - [facility] 03/13/23 Serene Alfred NP [address] [place] [address] Nurse Practitioner Family Medicine 10/27/22 Ceiling Cleaner Relationship Specialty Start Date End Date Chey Aragon MD [address] [place] [address] PCP - General Family Medicine 10/27/22 Chey Aragon MD [address] [place] [address] PCP - [facility] [employer] 03/13/23 Serene Alfred NP [address] [place] [address] Nurse Practitioner Family Medicine 10/27/22 Ceiling Cleaner Relationship Specialty Start Date End Date Chey Aragon MD [address] [place] [address] PCP - General Family Medicine 01/30/20 Ceiling Cleaner Relationship Specialty Start Date End Date Chey Aragon MD [address] [place] [address] PCP - General Family Medicine 01/30/20 Ceiling Cleaner Relationship Specialty Start Date End Date Chey Aragon MD [address] [place] [address] PCP - General Family Medicine 01/30/20 Ceiling Cleaner Relationship Specialty Start Date End Date Chey Aragon MD [address] [place] [address] PCP - General Family Medicine 01/30/20 Ceiling Cleaner Relationship Specialty Start Date End Date Chey Aragon MD [address] [place] [address] PCP - General Family Medicine 01/30/20 Ceiling Cleaner Relationship Specialty Start Date End Date Chey Aragon MD [address] [place] [address] PCP - General Family Medicine 01/30/20 Ceiling Cleaner Relationship Specialty Start Date End Date Chey Aragon MD [address] [place] [address] PCP - General Family Medicine 10/27/22 Chey Aragon MD [address] [place] [address] PCP - [facility] 03/13/23 Serene Alfred NP [address] [facility] [place] [address] Nurse Practitioner Family Medicine 10/27/22 Ceiling Cleaner Relationship Specialty Start Date End Date Chey Aragon MD [address] [place] [address] PCP - General Family Medicine 10/27/22 Chey Aragon MD [address] [place] [address] PCP - [facility] 03/13/23 Serene Alfred NP [address] [place] [address] Nurse Practitioner Family Medicine 10/27/22 Ceiling Cleaner Relationship Specialty Start Date End Date Chey Aragon MD [address] [place] [address] PCP - General Family Medicine 04/29/22 Ceiling Cleaner Relationship Specialty Start Date End Date Chey Aragon MD [address] [place] [address] PCP - General Family Medicine 04/29/22 Ceiling Cleaner Relationship Specialty Start Date End Date Chey Aragon MD [address] [place] [address] PCP - General Family Medicine 04/29/22 Ceiling Cleaner Relationship Specialty Start Date End Date Chey Aragon MD [address] [place] [address] PCP - General Family Medicine 04/29/22 Ceiling Cleaner Relationship Specialty Start Date End Date Chey Aragon MD [address] [place] [address] PCP - General Family Medicine 04/29/22 Ceiling Cleaner Relationship Specialty Start Date End Date Chey Aragon MD [address] [place] [address] PCP - General Family Medicine 10/27/22 Serene Alfred NP [address] [place] [address] Nurse Practitioner Family Medicine 10/27/22 Ceiling Cleaner Relationship Specialty Start Date End Date Chey Aragon MD [address] [place] [address] PCP - General Family Medicine 10/27/22 Serene Alfred NP [address] [place] [address] Nurse Practitioner Family Medicine 10/27/22 Ceiling Cleaner Relationship Specialty Start Date End Date Chey Aragon MD [address] [place] [address] PCP - General Family Medicine 10/27/22 Serene Alfred NP [address] [place] [address] Nurse Practitioner Family Medicine 10/27/22 Ceiling Cleaner Relationship Specialty Start Date End Date Chey Aragon MD [address] [place] [address] PCP - General Family Medicine 10/27/22 Serene Alfred NP [address] [place] [address] Nurse Practitioner Family Medicine 10/27/22 Ceiling Cleaner Relationship Specialty Start Date End Date Chey Aragon MD [address] [place] [address] PCP - General Family Medicine 10/27/22 Serene Alfred NP [address] [place] [address] Nurse Practitioner Family Medicine 10/27/22 Ceiling Cleaner Relationship Specialty Start Date End Date Chey Aragon MD [address] [place] [address] PCP - General Family Medicine 10/27/22 Serene Alfred NP [address] [place] [address] Nurse Practitioner Family Medicine 10/27/22 Ceiling Cleaner Relationship Specialty Start Date End Date Chey Aragon MD [address] [place] [address] PCP - General Family Medicine 10/27/22 Serene Alfred NP [address] [place] [address] Nurse Practitioner Family Medicine 10/27/22 Ceiling Cleaner Relationship Specialty Start Date End Date Chey Pillai MD [address] [place] [address] PCP - General Family Medicine 10/17/24 Ceiling Cleaner Relationship Specialty Start Date End Date Chey Pillai MD [address] [place] [address] PCP - General Family Medicine 08/06/21 Ceiling Cleaner Relationship Specialty Start Date End Date Chey Aragon MD [address] [place] [address] PCP - General Family Medicine 10/27/22 Serene Alfred NP [address] [place] [address] Nurse Practitioner Family Medicine 10/27/22 Ceiling Cleaner Relationship Specialty Start Date End Date Chey Pillai MD [address] [place] [address] PCP - General Family Medicine 10/17/24 Ceiling Cleaner Relationship Specialty Start Date End Date Chey Aragon MD [address] [facility] [place] [address] PCP - General Family Medicine 10/27/22 Serene Alfred RANCH HAND SUPERVISOR [address] [facility] [place] [address] Nurse Practitioner Family Medicine 10/27/22 Ceiling Cleaner Relationship Specialty Start Date End Date Chey Pillai MD [address] [facility] [place] [address] PCP - General Family Medicine 10/17/24 Ceiling Cleaner Relationship Specialty Start Date End Date Chey Pillai MD [address] [place] [address] PCP - General Family Medicine 10/17/24 Scheduled [...] (New Bag - Prov ider: Loraine Walter RN)[id number] (Stopped - Provider: Loraine Walter RN) [...] Lee MD - Comment: Dr. Zhou Lee1 [facility] #[id number] 06/2025) oxymetazoline 0.05 % nasal spray (Afrin) [...] Patient Specialty Diagnoses / Procedures Referred By Wayne liz Referred To Contact Colon & Rectal Surgery Diagnoses Crohn's disease of both small and large intestine with complication Milind Fitch, SHANTELL-BASKET MAKER [address] [place] [address] Phone: tel: fax: Referral ID Status Reason Start Date Expiration Date Visits Requested Visits Authorized [id number] New Request Specialty Services Required 09/07/2024 10/02/2025 [...] Oncology Clinic Appointment Request Ny Cool APN [address] [place] [address] Referral ID Status Reason Start Date Expiration Date Visits Requested Visits Authorized [id number] Authorization Not Required 3 1 1 Reason Comments FOLLOW-UP Reason Onset Date Comments Update 01/09/2023 Reason Onset Date Comments Results 01/21/2023 Reason Comments New Patient Specialty Diagnoses / Procedures Referred By Contac t Referred To Contact Gastroenterology Diagnoses Crohn's disease of both small and large intestine with complication Javier Agee MD [address] [place] [address] [facility] [address] [place], [place] [id number] Referral ID Status Reason Start Date Expiration Date V isits Requested Visits Authorized [id number] Pending Review 01/16/2023 02/10/2024 1 1 Reason Onset Date Comments Case Discussion 03/03/2023 Transitioned to adult GI at [facility] Reason Comments Venipuncture Reason Comments Earache Reason Comments Follow-up Crohn's Disease Specialty Diagnoses / Procedures Referred By Contac t Referred To Contact Rheumatology Diagnoses Orbital myositis, unspecified laterality Crohn's disease of small and large intestines with complication Immunosuppressed status Chronic pansinusitis Pulmonary nodules Psoriasis Less than 8 weeks gestation of Ioana Otero MD [address] [place] [address] Christine Mckeon MD [address] [place] [phone] Referral ID Status Reason Start Date Expiration Date V isits Requested Visits Authorized [id number] Pending Review 02/05/2023 03/01/2024 1 1 Specialty Diagnoses / Procedures Referred By Contac t Referred To Contact Diagnoses Crohn's disease of both small and large intestine with complication Procedures DIAGNOSTIC COLONOSCOPY SD COLONOSCOPY FLX DX W/COLLJ SPEC WHEN PFMilind Perry, CUTTING AND PRINTING MACHINE OPERATOR-BASKET MAKER [address] [place] [address] Referral ID Status Reason Start Date Expiration Date Visits Re quested Visits Authorized [id number] Closed 10/22/2023 11/15/2024 1 1 Reason Comments [...] Stealth without Contrast Naima Coates CPNP-PC [address] [place] [address] Referral ID Status Reason Start Date Expiration Date Visits Requested Visits Authorized [id number] Authorization Not Required 02/16/2024 1 1 Reason Onset Date Comments Change Appointment 03/15/2024 Specialty Diagnoses / Procedures Referred By Wayne liz Referred To Contact Diagnoses Chronic maxillary sinusitis Epistaxis Procedures SD NASAL ENDOSCOPY DIAGNOSTIC UNI/BI SPX SD CONTROL NASAL HEMORRHAGE ANTERIOR SIMPLE SD NSL/SINUS NDSC MAX ANTROST W/RMVL TISS MAX SINUS SD OTOLARYNGOLOGIC EXAM UNDER GENERAL ANESTHESIA SD MYRINGOPLASTY ENDOSCOPY, BILATERAL NOSE, DIAGNOSTIC SIMPLE CONTROL OF EPISTAXIS MAXILLARY BILATERAL ANTROSTOMY, WITH TISSUE REMOVAL bilateral ear EXAM UNDER ANESTHESIA POSSIBLE LEFT MYRINGOPLASTY, USING PAPER PATCH IF INDICATED Referral ID Status Reason Start Date Expiration Date Visits Re quested Visits Authorized [id number] 1 1 Reason Comments URI Reason Comments HX Colitis Crohn's Disease Reason Comments Migraine Past 2-4 weeks pt wilks s been having migraines. Reason Comments Migraine Reason Comments Follow-up Reason Comments Patient Education [facility] Goals (unrecognized section and content) Goals may [...] BE BASED ON THE PRIMARY CLINICAL RECORDS. [facility] provides no warranty or guarantee of the accuracy or completeness of information in this document.
[2025-01-02 00:10] LABS: Calprotectin, Fecal 997 ug/g (0-120)
== END 2024-12-29 10:27 | disposition home or self-care (01) ==
LOC: LAB 10:26
PROVIDERS: PCP Family Medicine; Visit Provider Nurse Practitioner Family
DX: K50.819 Crohn's disease of both small and large intestine with unspecified complications (principal)
CPT/HCPCS: 83993

== ENCOUNTER 2025-01-27 11:47 | Outpatient (OUT) | payer BC, MEDICAID, SELFPAY ==
--- OUTSIDE RECORDS SUMMARY | 2025-01-27 11:54 | XMS_ITS | CCD ---
Author Organization [facility] Care Team Providers Care [employer] Operator Name Role Phone Otilia Sinclair Primary Care [...] Provider Chey Aragon MD Primary Care Provider [phone] Unavailable Primary Care Provider UnavailChey Meek MD Primary Care Provider Tima CENTRAL SUPPLY CLERK, Serene A Unavailable Chey Aragon MD Unavailable [...] CHEY ARAGON Primary Care Unavailable FOLLOW-UP AT [facility] Referring Un available ZHOU LEE Attending Unavailable CHEY ARAGON Primary Care Unavailable TERESA, ZHOU Attending Unavailable CHEY ARAGON Referring Unavailable CHEY ARAGON Primary Care Unavailable TERESA, ZHOU Attending Unavailable ZHOU LEE Admitting Unavailable CHEY ARAGON Primary Care Unavailable NAIMA COATES Referring Unavailable Chey Aragon MD Primary Care Provider JELLY LATHAM Attending Unavailable KATIE ACEVES Attending Unavailab CHEY Mazariegos Attending Unavailable URBIA HERNANDEZ Referring Unavailable KETAN, KATIE Ventura Attending Unavailab SERENE Nichols Referring Unavailab SERENE Nichols Attending Unavailab ALFREDO Swain Attending Unavailable TIMA, SERENE Ventura Attending Unavailab SERENE Nichols Attending Unavailab Chey Sanchez MD Primary Care Prov ider Chey Pillai MD Primary Care Pr ovider CLIFFORD RODAS Referring Unavailable CHEY PILLAI Primary Care Un available MILIND FITCH Attending Unavailable SELF, SELF Referring Unavailable TU DALTON Attending Unavailable VAKLE MILIND Referring Unavailable DARI WALTERS Attending Unavailable MILIND FITCH Referring Unavailable SELF, SELF Referring Unavailable VAKLEMILIND Attending Unavailable SELF, SELF Referring Unavailable WINKLEKERENMILIND Attending Unavailable KALADY, CLIFFORD F Attending Unavailable GREENSLADE-MAHESH, [facility] Unav ailable WINKLE, MILIND Referring Unavailable KALADY, CLIFFORD F Referring Unavailable GREENSLADE-MAHESH, [facility] Care Unav ailable KALADY, CLIFFORD F Attending Unavailable GREENSLADE-MAHESH, [facility] Referring Unav ailable GREENSLADE-MAHESH, [facility] Care Unav ailable ZAID, YVETTE A Attending Unavailable GREENSLADE-MAHESH, [facility] Care Unav ailable SELF, SELF Referring Unavailable WINKLE, MILIND Attending Unavailable GREENSLADE-MAHESH, [facility] Care Unav ailable WINKLE, MILIND Referring Unavailable KALADY, CLIFFORD F Attending Unavailable KALADY, CLIFFORD F Referring Unavailable GREENSLADE-MAHESH, [facility] Unav ailable KALADY, CLIFFORD F Attending Unavailable KALADY, CLIFFORD F Referring Unavailable GREENSLADE-MAHESH, [facility] Primary Care Unav ailable KALADY, CLIFFORD F Referring Unavailable KALADY, CLIFFORD F Attending Unavailable GREENSLADE-MAHESH, [facility] Unav ailable KALADY, CLIFFORD F Attending Unavailable GREENSLADE-MAHESH, [facility] Unav ailable WINKLE, MILIND Referring Unavailable KALADY, CLIFFORD F Admitting Unavailable GREENSLADE-MAHESH, [facility] Unav ailable WINKLE, MILIND Referring Unavailable KALADY, CLIFFORD Joseph Attending Unavailable KALADY, CLIFFORD Joseph Admitting Unavailable Allergies Allergy Classification Reported Allergen(s) Allergy Type Date of Onset Reaction(s) Facility (20 sources) cefdinir; Translations: [CEFDINIR] Drug Allergy 09-11-19 12 Rash, Anaphylaxis [facility] (4 sources) Sulfamethoxazole / Trimethoprim; Translations: [Bactrim] Drug Allergy 09-11-19 12 Anaphylaxis [facility] (1 source) cefdinir Drug Allergy 09-10-19 [address] [facility] (1 source) inFLIXimab Drug Allergy 09-10-19 [address] [facility] (1 source) Pentamidine Drug Allergy 07-08-19 [address] [facility] (1 source) Vancomycin Drug Allergy 09-10-19 [address] [facility] (20 sources) inFLIXimab; Translations: [INFLIXIMAB] Drug Allergy 01-31-20 15 Other (See Comments) [facility] (20 sources) Pentamidine; Translations: [PENTAMIDINE] Drug Allergy 12-31-19 20 Headache [facility] Work Phone: (20 sources) Sulfonamides (Antibiotic); Translations: [SULFA (SULFONAMIDE ANTIBIOTICS)] Propensity to adverse reactions to drug 05-24-19 15 Rash [facility] (20 sources) Vancomycin; Translations: [VANCOMYCIN ANALOGUES] Drug Allergy 08-09-19 15 Magdalene Syndrome [facility] (20 sources) cefdinir Drug Allergy 09-11-19 12 Anaphylaxis, Rash [facility] (20 sources) inFLIXimab Drug Allergy 01-31-20 15 Other [facility] (20 sources) Pentamidine Drug Allergy 12-31-19 Headache, Headaches [facility] (20 sources) Sulfamethoxazole / Trimethoprim; Translations: [SULFAMETHOXAZOLE-T RIMETHOPRIM] Drug Allergy 09-11-19 12 Anaphylaxis, Rash [facility] Medications Current Medications Medication Drug Class(es) Dates [...] mg/mL Conc Inject into IV. 0 Active [id number] 200 actuat albuterol 0.09 mg/actuat metered dose [...] 09/26/2025 Active azithromycin 250 mg oral tablet (6 sources) Macrolide Antimicrobial Start: 09-26-2024 azithromycin (Zithromax) [...] with riTUXimab 500 MG/50ML solution 375 mg/m2 (15 sources) dextrose 5 % pranav ution 500 [...] tablet Indications: Anemia during in third trimester ([facility]) Take 1 tablet (325 mg) [...] 5 days. 5 tablet 03/22/2024 03/27/2024 Active lidocaine 0.05 mg/mg medicated patch (3 sources) Antiarrhythmic, Amide Local Anesthetic Start: 01-19-2025 apply 1 dose transdermal route once daily lidocaine (Lidoderm) 5 % patch Place 1 patch on the skin 1 (one) time each day at the same time 01/19/2025 Active Start: 01-19-2025 lidocaine 5 % Patch patch Place 1 patch on skin every 24 hours. Max of 12 hours of application then remove. 5 patch 01/19/2025 Active Start: 01-18-2025 End: 01-19-2025 apply 2 doses transdermal route every twenty-four hours 2 patch, Transdermal, Administer over 12 Hours, EVERY 24 HOURS, First dose on Thu01/18/25 at 2100, Until Discontinued, Apply to shoulders bilaterally. loratadine 10 mg oral tablet (20 sources) take 1 tablet by margarita th once daily loratadine 10 mg tablet Take 1 tablet by mouth once daily. Active Multiple Vitamins-Minerals (THERAPEUTIC MULTIVITAMIN-MINERALS) tablet (3 sources) take 1 tablet by margarita th once daily Multiple Vitamins-Minerals (THERAPEUTIC MULTIVITAMIN-MINERALS) tablet Take 1 tablet by mouth daily [...] morning. 0 Active Vit-Fe Fumarate-FA ( PO) (12 sources) Vit-Fe Fumarate-FA ( PO) Take by mouth. Active Vit-Fe Fumarate-FA ( PO) Take by mouth. 0 Active Risankizumab-rzaa (Skyrizi) 360 MG/2.4ML Solution Cartridge (7 sources) Start: 09-07-2024 Risankizumab-r zaa (Skyrizi) 360 MG/2.4ML Solution Cartridge Indications: Crohn's disease of both small and large intestine with complication Inject 360 mg under the skin every 56 days. 2.4 mL 6 09/07/2024 Active risankizumab-rzaa (Skyrizi) 600 MG/10ML Solution (7 sources) Start: 09-12-2024 risankizumab-r zaa (Skyrizi) 600 MG/10ML Solution Indications: Crohn's disease of both small and large intestine with complication 600 mg by Intravenous route every 28 days for 3 doses. Infuse Skyrizi 600mg every 4 weeks x 3 doses. No premeds. Rate and dilution per acquisitions editor package insert or per pharmacist discretion. Infusion [...] doses. No premeds. Rate and dilution per acquisitions editor package insert or per pharmacist discretion. Infusion reaction medications per pharmacy or infusion suite standard. 10 mL 2 09/12/2024 11/08/2024 Active Risankizumab-rzaa (Skyrizi) 600 MG/10ML solution (3 sources) Start: 09-12-2024 End: 11-08-2024 Risankizumab-rzaa (Skyrizi) 600 MG/10ML solution Infuse 600 mg into a venous catheter every 28 (twenty-eight) days 09/12/2024 11/08/2024 Active 10 ml riTUXimab 10 mg/ml injection (20 sources) [id number] Cytolytic Antibody End: 08-06-2023 riTUXimab (Rituxan) 100 [...] Start: 03-20-2022 take 1 dose nasal ro [place] twice daily, then take 1 dose nasal route twice daily sodium chloride, sodium bicarb-nasal rinse squeeze bottle with packet (Neilmed Sinus) Place 1 Packet in each nostril twice daily. Mix 1 packet as directed on package and use to rinse sinuses two times daily. 100 Each 03/20/2022 Active Start: 03-20-2022 take 1 dose nasal ro [place] twice daily, then take 1 dose nasal [...] the skin every 28 days. 1 mL 11 06/21/2024 Active Start: 05-26-2024 End: 09-07-2024 Ustekinumab [...] Active zinc gluconate 50 mg oral tablet (6 sources) Start: take 1 tablet by mouth once daily Zinc 50 MG tablet Take 1 tablet by mouth daily. 30 tablet 3 09/28/2024 Active Completed/Discontinued Medications Medication Drug Class(es) Dates Sig (Normalized) Sig (Original) acetaminophen 325 mg oral tablet (20 sources) Start: 01-17-2025 End: 01-19-2025 take 1 tablet by mouth every eight hours 975 mg, Oral, EVERY 8 HOURS NON-STANDARD, First dose on Thu01/17/25 at 2000, Until Discontinued, Maximum dose of acetaminophen is 4000 mg from all sources in 24 hours., Post-op/Post-Proc Start: 01-17-2025 End: 01-17-2025 take 4000 mg by mouth every twenty-four hours 975 mg, Oral, ONCE, 1 dose, On Thu01/17/25 at 1030, Maximum dose of acetaminophen is 4000 mg from all sources in 24 hours., Pre-op/Pre-Proc Start: 11-02-2024 End: 11-02-2024 take 1 tablet [...] by mouth every six hours as needed acetaminophen (Tylenol) 325 MG tablet Take 2 tablets by mouth every 6 (six) hours if needed. 03/20/2022 Active aprepitant 40 mg oral [...] Start: 08-01-2024 take 1 tablet by margarita once daily Atogepant (Qulipta) 60 MG tablet [...] / sodium lactate 0.028 meq/ml injectable solution (4 sources) Start: 01-17-2025 End: 01-19-2025 Intravenous, at 100 mL/hr, CONTINUOUS, Starting on Thu01/17/25 at 1530, Until Thu01/19/25 at 0601, Post-op/Post-Proc Start: 09-06-2024 End: 09-07-2024 Intravenous, at 20 [...] daily. 90 tablet 2 07/05/2021 02/04/2023 Discontinued 0.4 ml enoxaparin sodium 100 mg/ml prefilled syringe (1 source) Low Molecular Weight Heparin Start: 01-18-2025 End: 01-19-2025 inject 40 mg by subcutaneous injection every twenty-four hours 40 mg, Subcutaneous, EVERY 24 HOURS, First dose (after last reorder) on Thu01/18/25 at 0900, Until Discontinued, For SUBCUTANEOUS route ONLY: alternate injection sites between left and right abdominal wall, pinching location and avoiding area around navel. If unable to use abdominal sites, may use the front or side of thighs., Indications: DVT/PE prophylaxis, Post-op/Post-Pro c fluticasone propionate 0.05 mg/actuat metered dose nasal [...] times daily. 1 Bottle 0 07/07/2014 Active gabapentin 100 mg oral capsule (2 sources) Anti-epileptic Agent Start: 01-17-2025 End: 01-19-2025 take 1 capsule by mouth every eight hours 100 mg, Oral, EVERY 8 HOURS NON-STANDARD, First dose on Thu01/17/25 at 2000, Until Discontinued, Post-op/Post-Proc Start: 01-17-2025 End: 01-17-2025 take 1 dose by mouth once 800 mg, Oral, ONCE, 1 dose, On Thu01/17/25 at 1030, Pre-op/Pre-Proc halobetasol propionate 0.5 mg/ml topical cream (1 [...] at 2100, Nausea, SECOND line antiemetic, Recovery 1 ml heparin sodium, porcine 5000 unt/ml prefilled syringe (1 source) Unfractionated Heparin, Anti-coagulant Start: 01-17-2025 End: 01-17-2025 5,000 Units, Subcutaneous, ONCE, 1 dose, On Thu01/17/25 at 1030, Pre op Nurse: Hold for patients receiving Intrathecal morphine or epidural. Consult with Anesthesia Team., Pre-op/Pre-Proc 1 ml HYDROmorphone hydrochloride 1 mg/ml cartridge (1 source) Opioid Agonist Start: 01-17-2025 End: 01-17-2025 0.5 mg, Intravenous, EVERY 10 MINUTES NEEDED, 8 doses, Starting on Thu01/17/25 at 1545, Until Thu01/17/25 at 1750, Moderate Pain, Severe Pain, Mild Pain, May give a total of 4mg in PACU., Recovery hyoscyamine sulfate 0.125 mg sublingual tablet [...] at 2100, Mild Pain, Give with food, Post-op/Post-Pro c Start: 09-05-2023 End: 11-07-2024 take 1 tablet by mouth every six hours as needed for pain and pain ibuprofen 600 MG tablet Take 600 mg by mouth every 6 (six) hours if needed for mild pain or moderate pain 09/05/2023 Active Start: 05-23-2021 End: 03-20-2022 take 1 [...] at 1124, Until Thu10/26/24 at 1127, Other Lidocaine viscous-Alum & Mag Hgjeufise-Zcamfr-en phenhydrAMINE oral mouthwash (6 sources) Start: 10-10-2024 End: 01-19-2025 apply 15 mL topically every six hours as needed Lidocaine viscous-Alum & Mag Hydroxide-Simeth -diphenhydrAMINE oral mouthwash Swish and spit 15 mL every 6 hours as needed. 240 mL 1 10/10/2024 01/19/2025 Discontinued Start: 10-10-2024 apply 15 mL topicall y every six hours as needed Lidocaine viscous-Alum & Mag Hsmcroese-Fpapoy-ggweetdjneGZVGB oral mouthwash Swish and spit 15 mL every 6 hours as needed. 240 mL 1 10/10/2024 Active magnesium oxide 400 mg oral tablet (2 sources) Start: 01-19-2025 End: 01-19-2025 take 1 dose by mouth once 800 mg, Oral, ONCE, 1 dose, On [place] 01/19/25 at 0645, Occludes small-bore tubes Start: 01-18-2025 End: 01-18-2025 take 1 dose by mouth once 800 mg, Oral, ONCE, 1 dose, On 01/18/25 at 0600, Occludes small-bore tubes melatonin 3 mg oral tablet (1 source) Start: 01-17-2025 End: 01-19-2025 metroNIDAZOLE 500 mg oral tablet (2 sources) [...] capsule by mouth in the morning nitrofurantoin, macrocrystal-monoh ydrate, (Macrobid) 100 MG capsule Indications: Acute cystitis [...] Active 2 ml ondansetron 2 mg/ml injection (4 sources) Serotonin-3 Receptor Antagonist Start: 01-18-2025 End: 01-19-2025 take 4 mg intravenously every six hours as needed Start: 01-17-2025 End: 01-18-2025 take 4 mg intravenously every six hours 4 mg, Intravenous, EVERY 6 HOURS NON-STANDARD, 4 doses, First dose on Thu01/17/25 at 2100, Last dose on Thu01/18/25 at 1500, Post-op/Post-Proc Start: 11-02-2024 End: 11-02-2024 take 4 mg intravenously every four hours as needed 4 mg, Intravenous, EVERY 4 HOURS NEEDED, Starting on Thu11/02/24 at 1803, Until Thu11/02/24 at 2100, Nausea / Vomiting, Post-op/Post-Proc Start: 08-13-2021 ondansetron (Z OFRAN) tablet 4 mg oxyCODONE (3 sources) Opioid Agonist Start: 01-19-2025 End: 01-19-2025 take 1 tablet by mouth every four hours as needed oxyCODONE (ROXICODONE) tablet 5 mg Start: 01-19-2025 End: 01-24-2025 take 1 tablet by mouth every six hours as needed oxyCODONE 5 MG tablet Indications: History of ileostomy Take 1 tablet by mouth every 6 hours as needed for up to 5 days. 12 tablet 01/19/2025 01/24/2025 Active Start: 01-17-2025 End: 01-19-2025 take 1 tablet by mouth every four hours as needed oxyCODONE (ROXICODONE) tablet 5 mg phenol 14 mg/ml mucosal spray (1 source) Start: 01-17-2025 End: 01-19-2025 polyethylene glycol 3350 90907 mg powder for oral solution (2 sources) Osmotic Laxative Start: 12-26-2024 End: 12-26-2024 Polyethylene glycol 17 GM/SCOOP Powder powder Indications: Anorectal stricture 11 AM: Take entire contents over 2 hours as instructed. 255 g 12/26/2024 12/26/2024 Discontinued (Error) microencapsulated potassium chloride 20 meq extended release oral tablet (1 source) Start: 01-19-2025 End: 01-19-2025 take 1 dose by mouth once 20 mEq, Oral, ONCE, 1 dose, On [place] 01/19/25 at 0645, Do not crush. prochlorperazine 5 mg/ml injectable solution (1 source) [...] at a rate of 5 mg/min., Recovery Prochlorperazine (COMPAZINE) injection 10 mg (1 source) Start: 01-17-2025 End: 01-19-2025 take 10 mg intravenously every six hours as needed Prochlorperazine (COMPAZINE) injection 10 mg 72 hr scopolamine 0.0139 mg/hr transdermal system [...] Thu09/06/24 at 1510, Other, For gastrointestinal irrigation, Intra-op/Intra-Pro c 250 ml sodium chloride 9 mg/ml injection [...] due to other specified organisms] 09-26-2024 Episodic Administrative/social admission (2 sources) Other specified counseling; Translations: [Other specified counseling] Onset: 5 Episodic Anal and rectal conditions (7 sources) Anorectal stricture; Translations: [Stenosis of anus [...] 7 Resolved: 9 07-03-2020 Chronic Other aftercare (20 sources) Patient encounter status; Translations: [Encounter for therapeutic drug level monitoring] Onset: 5 Resolved: 8 05-08-2020 Episodic Other aftercare (1 source) Surgical follow-up Onset: [...] 4 Episodic Other inflammatory condition of skin (14 sources) Scalp psoriasis; 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, unspecified] Onset: [...] Residual codes; unclassified (2 sources) Other specified postprocedural states; Translations: [Other specified postprocedural states] Onset: 5 Episodic Residual codes; unclassified (2 sources) Other [...] 6 09-14-2015 Episodic Deficiency and other anemia (10 sources) Iron deficiency anemia; Translations: [Iron deficiency [...] 2 Resolved: 4 08-18-2021 Episodic Mood disorders (6 sources) Mood disorders Onset: 5 Resolved: 5 [...] 3 07-20-2014 Episodic Other aftercare (20 sources) Long-term current use of systemic steroid; Translations: [senior living (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 of systemic steroids] Onset: 6 Resolved: 9 08-13-2018 Episodic Other aftercare (20 sources) Drug therapy finding; Translations: [On rituximab therapy] Onset: 8 Resolved: 1 04-17-2020 Episodic Other aftercare (20 sources) senior living current use of adalimumab therapy; Translations: [Adalimumab (Humira) long-term use] Onset: 3 12-18-2022 Episodic Other aftercare (20 sources) Long-term current use of rituximab; Translations: [Encounter for therapeutic drug level monitoring] Onset: 1 10-27-2022 Episodic Other aftercare (7 sources) Long-term current use of steroid; Translations: [Encounter for long-term (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 of steroids] Onset: 5 Resolved: 6 10-09-2015 Episodic Other aftercare (7 sources) 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 5 mg/dL [facility] Interpretation and review of laboratory results Abnormal [facility] Calcium [Mass/Vol] 8.4 mg/dL Low 8.6-10.5 [facility] Comment on above: Performed By: #### I PB, MGO, CHM7, CA #### [facility] (DEFAULT) [address] [place] [address] CBC,PLATELETSon 01-19-2025 Erythrocyte distribution width (RBC) [Ratio] 13.8 % 10.8 - 14.9 % [facility] Hematocrit (Bld) [Volume fraction] 36.6 % 34.9 - 44.3 % [facility] Hemoglobin (Bld) [Mass/Vol] 11.8 g/dL 11.4 - 15.2 g/dL [facility] Interpretation and review of laboratory results Normal [facility] MCH (RBC) [Entitic mass] 28.5 pg 25.9 - 33.9 pg [facility] MCHC (RBC) [Mass/Vol] 32.2 g/dL 31.4 - 35.9 g/dL [facility] MCV (RBC) [Entitic vol] 88.4 fL 79.6 - 97.7 fL [facility] Platelet mean volume (Bld) [Entitic vol] 10.4 fL 8.5 - 12.2 fL [facility] Platelets (Bld) [#/Vol] 232 10*3/uL 150 - 393 K/uL [facility] RBC (Bld) [#/Vol] 4.14 10*6/uL [facility] WBC (Bld) [#/Vol] 8.36 10*3/uL 3.99 - 11. 19 K/uL [facility] Hematocrit (Bld) [Volume fraction] 36.6 % Normal 34.9-44.3 [facility] Comment on above: Performed By: #### [facility] #### [facility] (DEFAULT) [address] [place] [address] Hemoglobin (Bld) [Mass/Vol] 11.8 g/dL Normal 11.4-15.2 [facility] Comment on above: Performed By: #### H EMOGC #### [facility] (DEFAULT) [address] [address] MCV (RBC) [Entitic vol] 88.4 fL Normal 79.6-97.7 [facility] Comment on above: Performed By: #### H EMOGC #### [facility] (DEFAULT) [address] [address] Mean Cell Hgb 28.5 pg Normal 25.9-33.9 [facility] Comment on above: Performed By: #### H EMOGC #### [facility] (DEFAULT) [address] [address] Mean Cell Hgb Conc 32.2 g/dL Normal 31.4-35.9 [facility] Comment on above: Performed By: #### H EMOGC #### [facility] (DEFAULT) [address] [address] Platelet mean volume (Bld) [Entitic vol] 10.4 fL Normal 8.5-12.2 [facility] Comment on above: Performed By: #### H EMOGC #### [facility] (DEFAULT) [address] [address] Platelets (Bld) [#/Vol] 232 10*3/uL Normal 150-393 [facility] Comment on above: Performed By: #### H EMOGC #### [facility] (DEFAULT) [address] [address] RBC (Bld) [#/Vol] 4.14 10*6/uL Normal 3.91-5.04 [facility] Comment on above: Performed By: #### H EMOGC #### [facility] (DEFAULT) [address] [address] RBC Distribution 13.8 % Normal 10.8-14.9 [facility] Comment on above: Performed By: #### H EMOGC #### [facility] (DEFAULT) [address] [place] [address] WBC (Bld) [#/Vol] 8.36 10*3/uL Normal 3.99-11.19 [facility] Comment on above: Performed By: #### [facility] #### [facility] (DEFAULT) [address] [place] [address] CHEM 7 (LYTES,BUN,CREA,GLUC) on 01-19-2025 Anion gap [Moles/Vol] 8 mmol/L 7 - 17 mmol/L [facility] Chloride [Moles/Vol] 105 mmol/L 98 - 10 8 mmol/L [facility] CO2 [Moles/Vol] 31 mmol/L 21 - 31 mmol/L [facility] Creatinine [Mass/Vol] 0.72 mg/dL 0.50 - 1.20 mg/dL [facility] eGFR, CKD-EPI, Female - PINF [facility] Comment on above: Reported eGFR is bas ed on the CKD-EPI 2020 equation using creatinine, age, and sex. Glucose [Mass/Vol] 89 mg/dL 70 - 179 mg/dL [facility] Osmolality Calc [Osmolality] 290 [facility] Potassium [Moles/Vol] 3.8 mmol/L 3.5 - 5.0 mmol/L [facility] Sodium [Moles/Vol] 140 mmol/L 135 - 145 mmol/L [facility] Urea nitrogen [Mass/Vol] 8 mg/dL 7 - 25 mg/dL [facility] Urea nitrogen/Creatinine [Mass ratio] 11 mg/mg [facility] Anion gap [Moles/Vol] 8 mmol/L Normal 7-17 [facility] Comment on above: Performed By: #### I PB, MGO, CHM7, [place] #### [facility] (DEFAULT) [address] [place] [address] Chloride [Moles/Vol] 105 mmol/L Normal 98-108 [facility] Comment on above: Performed By: #### I PB, MGO, CHM7, CA #### [facility] (DEFAULT) [address] [place] [id number] CO2 [Moles/Vol] 31 mmol/L Normal 21-31 [facility] Comment on above: Performed By: #### I PB, MGO, CHM7, [place] #### [facility] (DEFAULT) [address] [place] [id number] Creatinine [Mass/Vol] 0.72 mg/dL Normal 0.50-1.20 [facility] Comment on above: Performed By: #### I PB, MGO, CHM7, [place] #### [facility] (DEFAULT) [address] [place] [id number] eGFR, CKD-EPI, Female > Normal >=60 [facility] Comment on above: Result Comment: Repo rted eGFR is based on the CKD-EPI 2020 equation using creatinine, age, and sex. Performed By: #### I PB, MGO, CHM7, CA #### [facility] (DEFAULT) [address] [place] [address] [phone] Glucose [Mass/Vol] 89 mg/dL Normal Nonfastin -179 mg/dL; Fastin-99 [facility] Comment on above: Performed By: #### I PB, MGO, CHM7, CA #### [facility] (DEFAULT) [address] [place] [address] 31644 Osmolality [Osmolality] 290 mosm/kg Normal 278-305 [facility] Comment on above: Performed By: #### I PB, MGO, CHM7, CA #### [facility] (DEFAULT) [address] [place] [address] 86698 Potassium [Moles/Vol] 3.8 mmol/L Normal 3.5-5.0 [facility] Comment on above: Performed By: #### I PB, MGO, CHM7, CA #### [facility] (DEFAULT) [address] [place] [address] 23533 Sodium [Moles/Vol] 140 mmol/L Normal 135-145 [facility] Comment on above: Performed By: #### I PB, MGO, CHM7, CA #### [facility] (DEFAULT) [address] [place] [address] 21995 Urea nitrogen [Mass/Vol] 8 mg/dL Normal 7-25 [facility] Comment on above: Performed By: #### I PB, MGO, CHM7, CA #### [facility] (DEFAULT) [address] [place] [address] 26180 Urea nitrogen/Creatinine [Mass ratio] 11 mg/mg Normal [facility] Comment on above: Performed By: #### I PB, MGO, CHM7, CA #### [facility] (DEFAULT) [address] [place] [address] 46941 MAGNESIUMon 01-19-2025 Interpretation and review of laboratory results Normal [facility] Magnesium [Mass/Vol] 1.6 mg/dL 1.6 - 2 .6 mg/dL [facility] Magnesium [Mass/Vol] 1.6 mg/dL Normal 1.6-2.6 [facility] Comment on above: Performed By: #### I PB, MGO, CHM7, CA #### [facility] (DEFAULT) [address] [place] [address] [phone] No Panel Informationon 01-19 [facility] PHOSPHATE, INORGANICon 01-19 Interpretation and review of laboratory results Normal [facility] Phosphate [Mass/Vol] 3.6 mg/dL 2.2 - 4 .6 mg/dL [facility] Phosphorous 3.6 mg/dL Normal 2.2-4.6 [facility] Comment on above: Performed By: #### I PB, MGO, CHM7, CA #### [facility] (DEFAULT) [address] [place] [address] 93723 CALCIUMon 01-18-2025 Calcium [Mass/Vol] 8.7 mg/dL 8.6 - 10. 5 mg/dL [facility] Calcium [Mass/Vol] 8.7 mg/dL Normal 8.6-10.5 [facility] Comment on above: Performed By: #### C JAILENE SANCHEZ, MAYKELN #### [facility] (DEFAULT) [address] [place] [address] 14158 CBC,PLATELETSon 01-18-2025 Erythrocyte distribution width (RBC) [Ratio] 13.4 % 10.8 - 14.9 % [facility] Hematocrit (Bld) [Volume fraction] 35.3 % 34.9 - 44.3 % [facility] Hemoglobin (Bld) [Mass/Vol] 11.5 g/dL 11.4 - 15.2 g/dL [facility] Interpretation and review of laboratory results Abnormal [facility] MCH (RBC) [Entitic mass] 28.3 pg 25.9 - 33.9 pg [facility] MCHC (RBC) [Mass/Vol] 32.6 g/dL 31.4 - 35.9 g/dL [facility] MCV (RBC) [Entitic vol] 86.7 fL 79.6 - 97.7 fL [facility] Platelet mean volume (Bld) [Entitic vol] 10.4 fL 8.5 - 12.2 fL [facility] Platelets (Bld) [#/Vol] 240 10*3/uL 150 - 393 K/uL [facility] RBC (Bld) [#/Vol] 4.07 10*6/uL [facility] WBC (Bld) [#/Vol] 12.23 10*3/uL High 3.99 - 11 .19 K/uL [facility] Hematocrit (Bld) [Volume fraction] 35.3 % Normal 34.9-44.3 [facility] Comment on above: Performed By: #### C JAILENE SANCHEZ, MAYKELN #### [facility] (DEFAULT) [address] [place] [address] [phone] Hemoglobin (Bld) [Mass/Vol] 11.5 g/dL Normal 11.4-15.2 [facility] Comment on above: Performed By: #### Alessandro RP, IRBC, CMPN #### [facility] (DEFAULT) [address] [place] [address] [phone] MCV (RBC) [Entitic vol] 86.7 fL Normal 79.6-97.7 [facility] Comment on above: Performed By: #### Alessandro RP, IRBC, CMPN #### [facility] (DEFAULT) [address] [place] [address] 23429 Mean Cell Hgb 28.3 pg Normal 25.9-33.9 [facility] Comment on above: Performed By: #### Alessandro RP, IRBC, CMPN #### [facility] (DEFAULT) [address] [place] [address] 68255 Mean Cell Hgb Conc 32.6 g/dL Normal 31.4-35.9 [facility] Comment on above: Performed By: #### Alessandro RP, IRBC, CMPN #### [facility] (DEFAULT) [address] [place] [address] 73002 Platelet mean volume (Bld) [Entitic vol] 10.4 fL Normal 8.5-12.2 [facility] Comment on above: Performed By: #### Alessandro RP, IRBC, CMPN #### [facility] (DEFAULT) [address] [place] [address] 39565 Platelets (Bld) [#/Vol] 240 10*3/uL Normal 150-393 [facility] Comment on above: Performed By: #### Alessandro RP, IRBC, CMPN #### [facility] (DEFAULT) [address] [place] [address] 76630 RBC (Bld) [#/Vol] 4.07 10*6/uL Normal 3.91-5.04 [facility] Comment on above: Performed By: #### Alessandro RP, IRBC, CMPN #### [facility] (DEFAULT) [address] [place] [address] RBC Distribution 13.4 % Normal 10.8-14.9 [facility] Comment on above: Performed By: #### C RP, IRBC, CMPN #### [facility] (DEFAULT) [address] [place] [address] WBC (Bld) [#/Vol] 12.23 10*3/uL High 3.99-11.19 [facility] Comment on above: Performed By: #### C RP, IRB, CMPN #### [facility] (DEFAULT) [address] [place] [address] CHEM 7 (LYTES,BUN,CREA,GLUC) on 01-18-2025 Anion gap [Moles/Vol] 14 mmol/L 7 - 17 mmol/L [facility] Chloride [Moles/Vol] 106 mmol/L 98 - 10 8 mmol/L [facility] CO2 [Moles/Vol] 22 mmol/L 21 - 31 mmol/L [facility] Creatinine [Mass/Vol] 0.56 mg/dL 0.50 - 1.20 mg/dL [facility] eGFR, CKD-EPI, Female - PINF [facility] Comment on above: Reported eGFR is bas ed on the CKD-EPI 2020 equation using creatinine, age, and sex. Glucose [Mass/Vol] 111 mg/dL 70 - 179 mg/dL [facility] Osmolality Calc [Osmolality] 287 [facility] Potassium [Moles/Vol] 4.5 mmol/L 3.5 - 5.0 mmol/L [facility] Sodium [Moles/Vol] 137 mmol/L 135 - 145 mmol/L [facility] Urea nitrogen [Mass/Vol] 7 mg/dL 7 - 25 mg/dL [facility] Urea nitrogen/Creatinine [Mass ratio] 13 mg/mg [facility] Anion gap [Moles/Vol] 14 mmol/L Normal 7-17 [facility] Comment on above: Performed By: #### GARRICK Francois RPC, CMPN #### [facility] (DEFAULT) [address] [place] [address] 69586 Chloride [Moles/Vol] 106 mmol/L Normal 98-108 [facility] Comment on above: Performed By: #### Alessandro RP, IRBC, CMPN #### [facility] (DEFAULT) [address] [place] [address] 04899 CO2 [Moles/Vol] 22 mmol/L Normal 21-31 [facility] Comment on above: Performed By: #### Alessandro SANCHEZ, IRBC, CMPN #### [facility] (DEFAULT) [address] [place] [address] 82627 Creatinine [Mass/Vol] 0.56 mg/dL Normal 0.50-1.20 [facility] Comment on above: Performed By: #### JAILENE Francois RP, MAYKELN #### [facility] (DEFAULT) [address] [place] [address] 21371 eGFR, CKD-EPI, Female > Normal >=60 [facility] Comment on above: Result Comment: Repo rted eGFR is based on the CKD-EPI 2020 equation using creatinine, age, and sex. Performed By: #### Alessandro SANCHEZ IRBC, CMPN #### [facility] (DEFAULT) [address] [place] [address] 29334 Glucose [Mass/Vol] 111 mg/dL Normal Nonfastin -179 mg/dL; Fastin-99 [facility] Comment on above: Performed By: #### Alessandro SANCHEZ IRBAlessandro, CMPN #### [facility] (DEFAULT) [address] [place] [address] 23308 Osmolality [Osmolality] 287 mosm/kg Normal 278-305 [facility] Comment on above: Performed By: #### Alessandro SANCHEZ, IRBC, CMPN #### [facility] (DEFAULT) [address] [place] [address] 12324 Potassium [Moles/Vol] 4.5 mmol/L Normal 3.5-5.0 [facility] Comment on above: Performed By: #### JAILENE Francois RP, CMPN #### [facility] (DEFAULT) [address] [place] [address] 78518 Sodium [Moles/Vol] 137 mmol/L Normal 135-145 [facility] Comment on above: Performed By: #### JAILENE Francois RP, CMPN #### [facility] (DEFAULT) [address] [place] [address] 35396 Urea nitrogen [Mass/Vol] 7 mg/dL Normal 7-25 [facility] Comment on above: Performed By: #### JAILENE Francois RP, MAYKELN #### [facility] (DEFAULT) [address] [place] [address] 14860 Urea nitrogen/Creatinine [Mass ratio] 13 mg/mg Normal [facility] Comment on above: Performed By: #### JAILENE Francois RP, CMPN #### [facility] (DEFAULT) [address] [place] [address] 89840 MAGNESIUMon 01-18-2025 Magnesium [Mass/Vol] 1.6 mg/dL 1.6 - 2 .6 mg/dL [facility] Magnesium [Mass/Vol] 1.6 mg/dL Normal 1.6-2.6 [facility] Comment on above: Performed By: #### JAILENE Francois RP, CMPN #### [facility] (DEFAULT) [address] [place] [address] [phone] No Panel Informationon 01-18 Interpretation and review of laboratory results Normal [facility] PHOSPHATE, INORGANICon 01-18 Phosphate [Mass/Vol] 3.4 mg/dL 2.2 - 4 .6 mg/dL [facility] Phosphorous 3.4 mg/dL Normal 2.2-4.6 [facility] Comment on above: Performed By: #### JAILENE Francois RP, CMPN #### [facility] (DEFAULT) [address] [place] [address] 68695 ABORH TYPE RECONFIRMATIONon 01-17-2025 ABO/RH(D) TYPE Positive [facility] ABO/RH(D) TYPE Positive Normal [facility] Comment on above: Performed By: #### JAILENE Francois RP, MARIO #### [facility] (DEFAULT) [address] [place] [address] 59965 BETA HCG, URINE (POC DEVICE) on 01-17-2025 Beta HCG ( test) Ql (U) Negative Negative [facility] Interpretation and review of laboratory results Normal [facility] Test performed at address of the patient encounter. [facility] CONTINUOUS CARDIAC MONITORIN G STRIPOrdered By: Unassigned Pacs on 01-17-2025 [facility] Work Phone: TYPE AND SCREENon 01-17-2025 ABO/RH(D) TYPE Positive [facility] Specimen Expiration 01/20/2025 23:59 [facility] ABO/RH(D) TYPE Positive Normal [facility] Comment on above: Performed By: #### JAILENE Francois RP, MAYKELN #### [facility] (DEFAULT) [address] [place] [address] 03544 Specimen Expiration 01/20/2025 23:59 Normal [facility] Comment on above: Performed By: #### JAILENE Francois RP, MAYKELN #### [facility] (DEFAULT) [address] [place] [address] 60989 CALPROTECTIN, FECALon 2024 CALPROTECTIN, FECAL 997 ug/g Abnormal 0 - 120 ug/g [facility] Comment on above: Results verified b y repeat testing Concentration Interpretation Follow-Up < 5 - 50 ug/g Normal None >50 -120 ug/g Borderline Re-evaluate in 4-6 weeks >120 ug/g Abnormal Repeat as clinically indicated Performed at: - [address] [id number] Sales Service Technician: Jesús Dc MD, Phone: [phone] Interpretation and review of laboratory results Abnormal [facility] IRON AND TIBCon 2024 Interpretation and review of laboratory results Abnormal [facility] TBH IRON 22 ug/dL Low 50.0 - 170.0 ug/dL [facility] PERCENT IRON SATURATION 12.4 % [facility] TB TOTAL IRON BINDING CAPACITY 178 ug/dL Low 250.0 - 450.0 ug/dL [facility] ALL CBC WITH AUTO DIFFon BASOPHILS ABSOLUTE AUTO 0.1 [facility] Basophils/100 WBC (Bld) 0.5 % 0.2 - 2.0 % [facility] Eosinophils/100 WBC (Bld) 2 % 0.9 - 7.0 % [facility] Erythrocyte distribution width (RBC) [Ratio] 13.9 % 11.0 - 15.0 % [facility] Hematocrit (Bld) [Volume fraction] 36.6 % 36.0 - 48.0 % [facility] Hemoglobin (Bld) [Mass/Vol] 11.9 g/dL Low 12.0 - 16.0 g/dL [facility] IMMATURE GRANULOCYTES ABS AUTO 0.11 High [facility] Immature granulocytes/100 WBC (Bld) 1.1 % High 0.0 - 0.5 % [facility] Interpretation and review of laboratory results Abnormal [facility] LYMPHOCYTES ABSOLUTE AUTO 1.1 Low [facility] Lymphocytes/100 WBC (Bld) 11.1 % Low 20.5 - 60.0 % [facility] MCH (RBC) [Entitic mass] 28 pg 26.7 - 34.0 pg [facility] MCHC (RBC) [Mass/Vol] 32.5 g/dL 29.9 - 35.2 g/dL [facility] MCV (RBC) [Entitic vol] 86.1 fL 81.0 - 99.0 fL [facility] MONOCYTES ABSOLUTE AUTO 0.9 High [facility] Monocytes/100 WBC (Bld) 8.6 % 1.7 - 12.0 % [facility] NEUTROPHILS ABSOLUTE AUTO 7.7 High [facility] Neutrophils/100 WBC (Bld) 76.7 % High 43.0 - 75.0 % [facility] Platelet mean volume (Bld) [Entitic vol] 10.3 fL 9.5 - 13.5 fL [facility] EO # 0.2 [facility] PLT 257 [facility] RBC 4.25 [facility] WBC 10 [facility] BETA HCG, URINE (POC DEVICE) on 11-02-2024 Beta HCG ( test) Ql (U) Negative Negative [facility] Interpretation and review of laboratory results Normal [facility] Test performed at address of the patient encounter. [facility] Beta HCG ( test) Ql (U) Negative Negative [facility] Interpretation and review of laboratory results Normal [facility] Test performed at address of the patient encounter. [facility] CONTINUOUS CARDIAC MONITORIN G STRIPon 11-02-2024 [facility] CONTINUOUS CARDIAC MONITORIN G STRIPOrdered By: Unassigned Pacs on 11-02-2024 [facility] Work Phone: SURG PATH REQUESTon 11-03-19 Case Report Normal [facility] Comment on above: Result Comment: Surg ical Pathology Report Case: [id number] Authorizing Provider: Clifford Rodas MD Collected: 11/02/2024 05:03 PM [facility] Received: 11/02/2024 05:17 PM Pathologist: Lavern Restrepo MD Specimen: SURG PATH, Anal canal biopsies Performed By: #### C JAILENE SANCHEZ, CMPN #### [facility] (DEFAULT) [address] [place] [address] Clinical History Crohn's disease of b oth small and large intestine with complication. Medical History: Crohn's colitis. 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 Asthma. Pulmonary nodules. Iron deficiency anemia. Hidradenitis suppurativa. Pulmonary nodule. Migraine. Normal [facility] Comment on above: Performed By: #### C JAILENE SANCHEZ, CMPN #### [facility] (DEFAULT) [address] [place] [address] Diagnosis Comments Normal [facility] Comment on above: Result Comment: Bloc k Stain Result A1-2 CMV Negative A1-3 DOG-1 Negative A1-4 CD117 (c-kit) Negative A1-5 S-100 Negative A1-6 CAM 5.2 Negative A1-7 Smooth Muscle Actin Negative Performed By: #### C RP, IRBC, CMPN #### [facility] (DEFAULT) [address] [place] [address] Gross Description Normal [facility] Comment on above: Result Comment: The specimen is received in one properly labeled container with the patient's name and accession number. A. The specimen is designated anal canal biopsies and consists of two fragments of ugalde-pink soft tissue, up to 0.2-0.3 cm in greatest dimension. TE 1 Lab Use Only: JobID [id number] Grosser for this case was: Shari Starkfiorella Performed By: #### C DANIEL, IRBC, CMPN #### [facility] (DEFAULT) [address] [place] [address] Microscopic Description Normal [facility] Comment on above: Result Comment: A mi croscopic examination was performed. All controls show appropriate reactivity. All immunohistochemistry (IHC), in situ hybridization (MARCELLE), and histochemical tests were developed by and are performed at the [facility] Clinical Laboratory, Histology and IHC Lab, [address] [place] [address]. All Immunofluorescent (IF) tests were developed by and are performed at the [facility] Clinical Laboratory, Renal Division, [address] [place] [address]. All tests reported here, except for PD-L1, have not been cleared by or approved by the [place] Food and Drug Administration (FDA). The laboratory is regulated under CLIA as qualified to perform high-complexity testing. The tests are used for clinical purposes. They should not be regarded as investigational or for research. Performed By: #### C RP, IRBC, CMPN #### [facility] (DEFAULT) [address] [place] [address] Pathologic Diagnosis Normal [facility] Comment on above: Result Comment: A. A nal canal, biopsy: Negative for malignancy Polypoid inflamed granulation tissue with erosion and dilated / congested vessels Negative for granulomas No epithelial lining observed at 1118 EDT Performed By: #### C JAILENE SANCHEZ, CMPN #### [facility] (DEFAULT) [address] [place] [address] Professional Interpretation Performed at: [facility] Comment on above: Result Comment: [facility] For Immediate Release to Patient's MyChart? Yes [address] [address] Performed By: #### C JAILENE SANCHEZ, CMPN #### [facility] (DEFAULT) [address] [place] [phone] Abdomen and Pelvis W [facility] rast Claudette 11-01-2024 EXAMINATION: CT ENTEROGRAPHY [...] both small and large intestine with complication ([facility]) TECHNOLOGIST PROVIDED HISTORY: STAT Creatinine [...] with luminal narrowing. Findings are suggestive of oktac-[id number] Crohn's disease. 4. Prominent asymmetric soft tissue in the right perineum compared to the left; however, no discrete abscess or fistula identified. 5. Left adnexal dermoid measuring 3.3 x 2.8 cm. 6. Mild splenomegaly. Interpreted by: Rubia Teague MD Signed by: Rubia Teague MD 10/31/24 Final result [facility] Radiology, Radiologi MD rosie - 11/01/2024 [...] with luminal narrowing. Findings are suggestive of shicz-pl-yykirdg Crohn's disease. 4. Prominent asymmetric soft tissue in the right perineum compared to the left; however, no discrete abscess or fistula identified. 5. Left adnexal dermoid measuring 3.3 x 2.8 cm. 6. Mild splenomegaly. Interpreted by: Rubia Taegue MD Signed by: Rubia Teague MD 10/31/24 Final [address] [facility] CT Abdomen and Pelvis W cont rast IVOrdered By: Radiologist Radiology on 11-01-2024 [facility] [employer] Work Phone: CT Abdomen and Pelvis W cont rast Claudette 10-31-2024 Radiology Study observation (narrative) [facility] CT ENTEROGRAPHY W WO CONTRAS Ton 10-31-2024 [...] with luminal narrowing. Findings are suggestive of nswvu-qb-[id number] Crohn's disease. 4. Prominent asymmetric soft tissue in the right perineum compared to the left; however, no discrete abscess or fistula identified. 5. Left adnexal dermoid measuring 3.3 x 2.8 cm. 6. Mild splenomegaly. Interpreted by: Rubia Teague MD Signed by: Rubia Teague MD 10/31/24 Final result Normal [facility] XR CHEST 2 VIEWSon 5 XR CHEST [...] 27.7 mg/L High NINF - 10.00 mg/L [facility] CRP [Mass/Vol] 27.70 mg/L High <10.00 [facility] Comment on above: Performed By: #### C , IRBC, CMPN #### [facility] (DEFAULT) [address] [place] [address] [phone] CBC,PLATELETSon 09-22-2024 Erythrocyte distribution width (RBC) [Ratio] 13.1 % 10.8 - 14.9 % [facility] Hematocrit (Bld) [Volume fraction] 37.1 % 34.9 - 44.3 % [facility] Hemoglobin (Bld) [Mass/Vol] 11.6 g/dL 11.4 - 15.2 g/dL [facility] Interpretation and review of laboratory results Abnormal [facility] MCH (RBC) [Entitic mass] 26.8 pg 25.9 - 33.9 pg [facility] MCHC (RBC) [Mass/Vol] 31.3 g/dL Low 31.4 - 35.9 g/dL [facility] MCV (RBC) [Entitic vol] 85.7 fL 79.6 - 97.7 fL [facility] Platelet mean volume (Bld) [Entitic vol] 10.1 fL 8.5 - 12.2 fL [facility] Platelets (Bld) [#/Vol] 296 10*3/uL 150 - 393 K/uL [facility] RBC (Bld) [#/Vol] 4.33 10*6/uL [facility] WBC (Bld) [#/Vol] 11.3 10*3/uL High 3.99 - 11. 19 K/uL [facility] Hematocrit (Bld) [Volume fraction] 37.1 % Normal 34.9-44.3 [facility] Comment on above: Performed By: #### [facility] #### [facility] (DEFAULT) [address] [place] [address] 64507 Hemoglobin (Bld) [Mass/Vol] 11.6 g/dL Normal 11.4-15.2 [facility] Comment on above: Performed By: #### [facility] #### [facility] (DEFAULT) [address] [place] [address] MCV (RBC) [Entitic vol] 85.7 fL Normal 79.6-97.7 [facility] Comment on above: Performed By: #### H EMOSATURNINO #### [facility] (DEFAULT) [address] [address] Mean Cell Hgb 26.8 pg Normal 25.9-33.9 [facility] Comment on above: Performed By: #### H EMOSATURNINO #### [facility] (DEFAULT) [address] [address] Mean Cell Hgb Conc 31.3 g/dL Low 31.4-35.9 [facility] Comment on above: Performed By: #### H EMOSATURNINO #### [facility] (DEFAULT) [address] [address] Platelet mean volume (Bld) [Entitic vol] 10.1 fL Normal 8.5-12.2 [facility] Comment on above: Performed By: #### H EMOSATURNINO #### [facility] (DEFAULT) [address] [address] Platelets (Bld) [#/Vol] 296 10*3/uL Normal 150-393 [facility] Comment on above: Performed By: #### H EMOSATURNINO #### [facility] (DEFAULT) [address] [address] RBC (Bld) [#/Vol] 4.33 10*6/uL Normal 3.91-5.04 [facility] Comment on above: Performed By: #### H EMOSATURNINO #### [facility] (DEFAULT) [address] [address] RBC Distribution 13.1 % Normal 10.8-14.9 [facility] Comment on above: Performed By: #### H EMOSATURNINO #### [facility] (DEFAULT) [address] [address] WBC (Bld) [#/Vol] 11.30 10*3/uL High 3.99-11.19 [facility] Comment on above: Performed By: #### H [facility] #### [facility] (DEFAULT) [address] [place] [address] COMPREHENSIVE METABOLIC PANE Jeremias 09-22-2024 Albumin [Mass/Vol] 3.8 g/dL 3.5 - 5.0 g/dL [facility] ALP [Catalytic activity/Vol] 64 U/L 32 - 126 U/L [facility] ALT [Catalytic activity/Vol] 6 U/L Low 9 - 48 U/L [facility] Anion gap [Moles/Vol] 14 mmol/L 7 - 17 mmol/L [facility] AST [Catalytic activity/Vol] 13 U/L 10 - 39 U/L [facility] Bilirubin [Mass/Vol] 0.5 mg/dL NINF - 1.5 mg/dL [facility] Calcium [Mass/Vol] 9.2 mg/dL 8.6 - 10. 5 mg/dL [facility] Chloride [Moles/Vol] 103 mmol/L 98 - 10 8 mmol/L [facility] CO2 [Moles/Vol] 26 mmol/L 21 - 31 mmol/L [facility] Creatinine [Mass/Vol] 0.73 mg/dL 0.50 - 1.20 mg/dL [facility] eGFR, CKD-EPI, Female - PINF [facility] Comment on above: Reported eGFR is bas ed on the CKD-EPI 2020 equation using creatinine, age, and sex. Glucose [Mass/Vol] 82 mg/dL 70 - 179 mg/dL [facility] Osmolality Calc [Osmolality] [facility] Potassium [Moles/Vol] 4.2 mmol/L 3.5 - 5.0 mmol/L [facility] Protein [Mass/Vol] 5.5 g/dL Low 6.4 - 8.3 g/dL [facility] Sodium [Moles/Vol] 139 mmol/L 135 - 145 mmol/L [facility] Urea nitrogen [Mass/Vol] 10 mg/dL 7 - 25 mg/dL [facility] Urea nitrogen/Creatinine [Mass ratio] 14 mg/mg [facility] Albumin [Mass/Vol] 3.8 g/dL Normal 3.5-5.0 [facility] Comment on above: Performed By: #### C RP, IRBC, CMPN #### [facility] (DEFAULT) [address] [place] [address] ALP [Catalytic activity/Vol] 64 U/L Normal 32-126 [facility] Comment on above: Performed By: #### Alessandro RP, IRBC, CMPN #### U [facility] (DEFAULT) [address] [place] [address] ALT [Catalytic activity/Vol] 6 U/L Low 9-48 [facility] Comment on above: Performed By: #### Alessandro RP, IRBC, CMPN #### [facility] (DEFAULT) [address] [place] [address] Anion gap [Moles/Vol] 14 mmol/L Normal 7-17 [facility] Comment on above: Performed By: #### C RP, IRBC, CMPN #### [facility] (DEFAULT) [address] [place] [address] AST [Catalytic activity/Vol] 13 U/L Normal 10-39 [facility] Comment on above: Performed By: #### C RP, IRBC, CMPN #### [facility] (DEFAULT) [address] [place] [address] Bilirubin [Mass/Vol] 0.5 mg/dL Normal <1.5 [facility] Comment on above: Performed By: #### C RP, IRBC, CMPN #### [facility] (DEFAULT) [address] [place] [address] Calcium [Mass/Vol] 9.2 mg/dL Normal 8.6-10.5 [facility] Comment on above: Performed By: #### C RP, IRBC, CMPN #### [facility] (DEFAULT) [address] [place] [address] Chloride [Moles/Vol] 103 mmol/L Normal 98-108 [facility] Comment on above: Performed By: #### JAILENE Francois RP, MAYKELN #### [facility] (DEFAULT) [address] [place] [address] CO2 [Moles/Vol] 26 mmol/L Normal 21-31 [facility] Comment on above: Performed By: #### JAILENE Francosi RP, MAYKELN #### [facility] (DEFAULT) [address] [place] [address] Creatinine [Mass/Vol] 0.73 mg/dL Normal 0.50-1.20 [facility] Comment on above: Performed By: #### JAILENE Francois RP, MAYKELN #### [facility] (DEFAULT) [address] [place] [address] eGFR, CKD-EPI, Female > Normal >=60 [facility] Comment on above: Result Comment: Repo rted eGFR is based on the CKD-EPI 2020 equation using creatinine, age, and sex. Performed By: #### JAILENE Francois RP, MAYKELN #### [facility] (DEFAULT) [address] [place] [address] Glucose [Mass/Vol] 82 mg/dL Normal Nonfastin -179 mg/dL; Fastin-99 [facility] Comment on above: Performed By: #### JAILENE Francois RP, MAYKELN #### [facility] (DEFAULT) [address] [place] [address] Osmolality [Osmolality] 289 mosm/kg Normal 278-305 [facility] Comment on above: Performed By: #### JAILENE Francois RP, MAYKELN #### [facility] (DEFAULT) [address] [place] [address] Potassium [Moles/Vol] 4.2 mmol/L Normal 3.5-5.0 [facility] Comment on above: Performed By: #### JAILENE Francois RP, MAYKELN #### [facility] (DEFAULT) [address] [place] [address] Protein [Mass/Vol] 5.5 g/dL Low 6.4-8.3 [facility] Comment on above: Performed By: #### C RP, IRBC, CMPN #### [facility] (DEFAULT) [address] [place] [address] Sodium [Moles/Vol] 139 mmol/L Normal 135-145 [facility] Comment on above: Performed By: #### C RP, IRBC, CMPN #### [facility] (DEFAULT) [address] [place] [address] Urea nitrogen [Mass/Vol] 10 mg/dL Normal 7-25 [facility] Comment on above: Performed By: #### C DANIEL, IRBC, CMPN #### [facility] (DEFAULT) [address] [place] [address] Urea nitrogen/Creatinine [Mass ratio] 14 mg/mg Normal [facility] Comment on above: Performed By: #### Alessandro RP, IRBC, CMPN #### [facility] (DEFAULT) [address] [place] [address] FERRITINon 09-22-2024 Ferritin [Mass/Vol] 197.1 ng/mL 7.3 - 27 0.7 ng/mL [facility] Interpretation and review of laboratory results Normal [facility] Ferritin [Mass/Vol] 197.1 ng/mL Normal 7.3-270.7 [facility] Comment on above: Performed By: #### C RP, IRBC, CMPN #### [facility] (DEFAULT) [address] [place] [address] FOLATE, SERUMon 09-22-2024 Folate [Mass/Vol] 9.14 ng/mL 5.38 - PIN F ng/mL [facility] Interpretation and review of laboratory results Normal [facility] Folate 9.14 ng/mL Normal >5.38 [facility] Comment on above: Performed By: #### JAILENE Francois RP, CMPN #### [facility] (DEFAULT) [address] [place] [address] IRON/IRON BINDING/TRANSFERRI Non 09-22-2024 Iron [Mass/Vol] 19 ug/dL Low [facility] Iron binding capacity [Mass/Vol] 205 Low [facility] Iron saturation [Mass fraction] 9 % Low 20 - 55 % [facility] Transferrin [Mass/Vol] 164 mg/dL Low 200 - 400 mg/dL [facility] Iron [Mass/Vol] 19 ug/dL Low 40-174 [facility] Comment on above: Performed By: #### JAILENE Francois RP, CMPN #### [facility] (DEFAULT) [address] [place] [address] Iron Saturation 9 % Low 20-55 [facility] Comment on above: Performed By: #### JAILENE Francois RP, CMPN #### [facility] (DEFAULT) [address] [place] [address] Total Iron Binding Capacity 205 mcg/dL Low 250-425 [facility] Comment on above: Performed By: #### JAILENE Francois RP, CMPN #### [facility] (DEFAULT) [address] [place] [address] Transferrin [Mass/Vol] 164 mg/dL Low 200-400 [facility] Comment on above: Performed By: #### JAILENE Francois RP, CMPN #### [facility] (DEFAULT) [address] [place] [address] METHYLMALONIC ACIDon 025 METHYLMALONIC ACID 0.11 nmol/mL Normal <=0.40 [facility] Comment on above: Result Comment: ADDITIONAL INFORMATION This test was developed and its performance characteristics determined by [facility] in a manner consistent with CLIA requirements. This test has not been cleared or approved by the U.S. Food and Drug Administration. Test Performed by: [place] [address] Sales Service Technician: Wyatt England Ph.D.; CLIA# [id number] Performed By: #### C DANIEL, JAILENE, MAYKELN #### [facility] (DEFAULT) [address] [place] [address] No Panel Informationon 09-22 Interpretation and review of laboratory results Abnormal [facility] SEDIMENTATION RATE, AUTOMATE Don 09-22-2024 ESR (Bld) [Velocity] 20 mm/h High NINF [facility] Interpretation and review of laboratory results Abnormal [facility] ESR Westergren 20 mm/hr High <20 [facility] Comment on above: Performed By: #### E SR #### [facility] (DEFAULT) [address] [place] [address] VITAMIN B12on 09-22-2024 Cobalamin (Vitamin B12) [Mass/Vol] 602 pg/mL 211 - 911 pg/mL [facility] Comment on above: Testing of Methylmal onic Acid and Intrinsic Factor Blocking Antibody are recommended if clinical suspicion for pernicious anemia due to B12 deficiency is high for patients with intermediate B12 levels (211 to 400 pg/mL) to rule out spurious heterophile antibodies. Interpretation and review of laboratory results Normal [facility] Cobalamin (Vitamin B12) [Mass/Vol] 602 pg/mL Normal 211-911 [facility] Comment on above: Result Comment: Test ing of Methylmalonic Acid and Intrinsic Factor Blocking Antibody are recommended if clinical suspicion for pernicious anemia due to B12 deficiency is high for patients with intermediate B12 levels (211 to 400 pg/mL) to rule out spurious heterophile antibodies. Performed By: #### C RP, IRBAlessandro, CMPN #### [facility] (DEFAULT) [address] [place] [address] VITAMIN D (25-HYDROXY,TOTAL) on 06-12-2025 25-OH Vitamin D Total 33.2 ng/mL Normal 30.0-100.[address] [facility] Comment on above: Order Comment: Vitam in D values have been shown to be falsely decreased in lipemic samples and should be interpreted with caution. Result Comment: <10 Deficiency 10-29 Insufficiency 30-100 Optimal Level >100 Possible Toxicity Performed By: #### C DANIEL, JAILENE, MAYKELN #### [facility] (DEFAULT) [address] [address] ZINC, SERUMon 09-22-2024 ZINC, SERUM 44 mcg/dL Low 60-106 [facility] Comment on above: Result Comment: ADDITIONAL INFORMATION This test was developed and its performance characteristics determined by [facility] in a manner consistent with CLIA requirements. This test has not been cleared or approved by the U.S. Food and Drug Administration. Test Performed by: [facility] [place] [address] Sales Service Technician: Wyatt England Ph.D.; CLIA# [id number] Performed By: #### C DANIEL, [facility], MAYKELN #### [facility] (DEFAULT) [address] [place] [address] DIAGNOSTIC COLONOSCOPYon [facility] Patient Name: Kings Hatfield Procedure Date: 09/06/2024 1:37 PM Date of : 2000 Admit Type: Outpatient Age: 23 Room: [facility] 2 Gender: Female Note Status: Finalized Attending MD: Tu Dalton MD, [id number] Procedure: Colonoscopy Attending Participation: I personally performed the entire procedure. 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 Estimated blood [...] oxygen saturations were monitored continuously. The Colonscope ([id number]) was introduced through the anus and advanced to the rectum. The patient tolerated the procedure well. The colonoscopy was performed with difficulty due to rectal stricture. Successful completion of the procedure was aided by withdrawing the scope and replacing with the UltraSlim scope. The quality of the bowel preparation was inadequate. The PCF- [id number] was introduced through the anus with [...] previous diet (more content not included)... LAB, U [facility] Radiology Study observation (narrative) [facility] HCG ( test) Ql (U)o n 09-06-2024 Beta HCG ( test) Ql (U) Negative [facility] Interpretation and review of laboratory results Normal [facility] SURG PATH REQUESTon 09-07-19 Case Report Normal [facility] Comment on above: Result Comment: Surg ical Pathology Report Case: [id number] Authorizing Provider: Tu Dalton MD Collected: 09/06/2024 02:02 PM Ordering Location: [facility] Received: 09/06/2024 02:11 PM [facility] Pathologist: Ric Lechuga MD Specimens: A) - TISSUE, transverse colon bx hx Crohn's disease evaluate disease activity (large forceps) B) - TISSUE, left colon bx hx Crohn's disease evaluate disease activity (large forceps) C) - TISSUE, rectal bx hx Crohn's disease evaluate disease activity (large forceps) Performed By: #### C JAILENE SANCHEZ, CMPN #### [facility] (DEFAULT) [address] [place] [address] Clinical History Hx Crohn's disease. Evaluate disease activity. Associated Diagnosis: Crohn's disease of both small and large intestine with complication [K50.819]. Medical History: Crohn's colitis. 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 Pulmonary nodules. Iron deficiency anemia. Hydradenitis suppurativa. Pulmonary nodule. Normal [facility] Comment on above: Performed By: #### C JAILENE SANCHEZ, MAYKELN #### [facility] (DEFAULT) [address] [place] [address] Diagnosis Comments The findings are compatible with patient's history of treated Chron's disease. Normal [facility] Comment on above: Performed By: #### C JAILENE SANCHEZ, CMPN #### [facility] (DEFAULT) [address] [place] [address] Gross Description [facility] Comment on above: Result Comment: [...] dimension. TE 1 Lab Use Only: JobID [id number] Grosser for this case was: Alanna Esteban Performed By: #### JAILENE Francois RP, MAYKELN #### [facility] (DEFAULT) [address] [place] [address] Microscopic Description A microscopic examination was performed. [facility] Comment on above: Performed By: #### JAILENE Francois RP, MAYKELN #### [facility] (DEFAULT) [address] [address] Pathologic Diagnosis [facility] Comment on above: Result Comment: A. C [...] malignancy. at 0008 EDT Performed By: #### JAILENE Francois RP, MAYKELN #### [facility] (DEFAULT) [address] [address] Professional Interpretation Performed at: [facility] Comment on above: Result Comment: [facility] For Immediate Release to Patient's MyChart? Yes [address] [id number] Performed By: #### C , IRB, CMPN #### [facility] (DEFAULT) [address] [place] [address] HEAD WO IV CONTRASTon CT HEAD [...] Not Available Office Visiton 07-13-2024 Follow-up visit [id number] [place]field 2000 F Date Provider Department Center 07/13/2024 Chris4-JELLY LATHAM Alessandro RHEUM [facility] Family History Problem Relation Age of Onset Stroke Mother Hypertension Father Arthritis Maternal Grandmother Family Status - Relation Status Age at Mother Father Maternal Grandmother Level of Service:64331 DC OFFICE/OUTPATIENT NEW MODERATE MDM 45 MINUTES (GC) Reason for Visit and Comments: New Patient [632] Normal [facility] C. DIFFICILE PCRon C. DIFFICILE PCR Negative [facility] ALL CBC WITH AUTO DIFFon BASOPHILS ABSOLUTE AUTO 0 [facility] Basophils/100 WBC (Bld) 0.4 % 0.2 - 2.0 % [facility] Eosinophils/100 WBC (Bld) 2.4 % 0.9 - 7.0 % [facility] Erythrocyte distribution width (RBC) [Ratio] 12.6 % 11.0 - 15.0 % [facility] Hematocrit (Bld) [Volume fraction] 34.1 % Low 36.0 - 48.0 % [facility] Hemoglobin (Bld) [Mass/Vol] 11.3 g/dL Low 12.0 - 16.0 g/dL [facility] IMMATURE GRANULOCYTES ABS AUTO 0.03 [facility] Immature granulocytes/100 WBC (Bld) 0.3 % 0.0 - 0.5 % [facility] Interpretation and review of laboratory results Abnormal [facility] LYMPHOCYTES ABSOLUTE AUTO 1.1 Low [facility] Lymphocytes/100 WBC (Bld) 11.4 % Low 20.5 - 60.0 % [facility] MCH (RBC) [Entitic mass] 28.8 pg 26.7 - 34.0 pg [facility] MCHC (RBC) [Mass/Vol] 33.1 g/dL 29.9 - 35.2 g/dL [facility] MCV (RBC) [Entitic vol] 87 fL 81.0 - 99.0 fL [facility] MONOCYTES ABSOLUTE AUTO 0.7 [facility] Monocytes/100 WBC (Bld) 8 % 1.7 - 12.0 % [facility] NEUTROPHILS ABSOLUTE AUTO 7.2 High [facility] Neutrophils/100 WBC (Bld) 77.5 % High 43.0 - 75.0 % [facility] Platelet mean volume (Bld) [Entitic vol] 10.2 fL 9.5 - 13.5 fL [facility] TB EO # 0.2 [facility] TB PLT 245 [facility] RBC 3.92 Low [facility] TB WBC 9.3 [facility] Laboratory - Microbiology an d Antimicrobial susceptibilityon 05-17-2024 SARS-CoV-2 (COVID-19) RNA SHARLA+probe Ql (Unsp spec) Negative [facility] No Panel Informationon 05-17 FLU A Negative [facility] FLU B Negative [facility] Interpretation and review of laboratory results Normal [facility] HCG ( test) Qlon HCG ( test) Ql (U) Negative Negative [facility] comment 40 (Unsp spec) [Interp] First morning urine is the specimen of choice for urine test. False negative results can occur when random urine specimens are tested. A serum test is recommended if results do not correlate with the patient's clinical condition. [facility] POCT HCG, Urine Qualitativeo n 03-22-2024 Beta HCG ( test) Ql (U) Negative Normal NEG [facility] Comment: First morning urine is the specimen of choice for urine test. False negative results can occur when random urine specimens are tested. A serum test is recommended if results do not correlate with the patient's clinical condition. Normal [facility] CT Sinuses WO contraston 1.Decreased, but persistent mucosal thickening of the right maxillary sinus. 2.Minimal mucosal thickening of the right frontal and left maxillary sinus. 3.Postoperative changes from prior endoscopic sinus surgery. [facility] Yann Saenz MD - 02/29/2024 REASON FOR EXAM: nasal [...] 3.Postoperative changes from prior endoscopic sinus surgery. [facility] Radiology Study observation (narrative) [facility] CT Sinuses WO contrastOrdere d By: Yann Phillips on 02-29-2024 [facility] Work Phone: Provider [place] 02-19-2024 Provider Orders [id number] [facility] [id number] [facility] [place] 02-17-2024 Provider Orders [id number] [facility] DIAGNOSTIC COLONOSCOPYon [facility] Patient Name: Kings Hatfield Procedure Date: 11/18/2023 10:04 AM Date of : 2000 Admit Type: Outpatient Age: 23 Room: Endo 3 Gender: Female Note Status: Finalized Attending MD: Sharath Lambert MD, [id number] Procedure: Colonoscopy Indications: Last colonoscopy: 2019, Disease [...] oxygen saturations were monitored continuously. The Colonoscope ([id number]) was introduced through the anus and advanced to 10 cm into the ileum. The colonoscopy was performed without difficulty. The patient tolerated the procedure well. The quality of the bowel preparation was evaluated using the BBPS (Berwick Bowel Preparation Scale) with scores of: Right [...] - (more content not included)... LAB, [facility] Radiology Study observation (narrative) [facility] HCG ( test) Ql (U)o n 11-18-2023 Beta HCG ( test) Ql (U) Negative [facility] Ferritinon 11-10-2023 Ferritin [Mass/Vol] 74 ng/mL Normal 4-233 [facility] CBCon 11-09-2023 Erythrocyte distribution width (RBC) [Ratio] 14.5 % High 10-14.1 [facility] Hematocrit (Bld) [Volume fraction] 37.7 % Normal 36.0-46.0 [facility] Hemoglobin (Bld) [Mass/Vol] 12.6 g/dL Normal 12.0-16.0 [facility] MCH (RBC) [Entitic mass] 29.2 pg Normal 26.0-34.0 [facility] MCHC 33.4 % Normal 31.0-37.0 [facility] MCV (RBC) [Entitic vol] 87.3 fL Normal 80.0-100.0 [facility] Platelet mean volume (Bld) [Entitic vol] 10.1 fL Normal 8.8-13.0 [facility] Comment on above: Result Comment: Perf ormed at [facility],[address], [place] [address] Platelets (Bld) [#/Vol] 204 10*3/uL Normal 142-508 [facility] RBC (Bld) [#/Vol] 4.3 10*6/uL Normal 4.0-5.2 [facility] WBC (Bld) [#/Vol] 10.5 10*3/uL Normal 4.5-11.0 [facility] Ironon 11-09-2023 Iron [Mass/Vol] 70 ug/dL Normal 65-175 [facility] Jeremias 09-03-2023 L Specimen: [id number] Received: 09/03/23 Status: RADHA Remary ellen Num: [id number] Spec Type: Surgical Subm Dr: Jayme Hi Tissues: A Placenta - 3rd Trimester (Greater than 28 weeks) (PLACENTA) Procedures: HE/3, Gross/Micro L5 Age/ Patient Sex Location Account Attending Physician [place] / [facility] [id number] Alfredo Duong APRN SPEC NUM: [id number] RECD: 09/03/23 STATUS: RADHA RE NUM: [id number] SHAY: 09/03/[address]: Jayme Hi ENTERED: 09/03/23 [facility] DR: Jaylon,Lab SPEC TYPE: Surgical DEPT: [...] lobulated cotyledons. No loose or adherent Specimen: [id number] Received: 09/03/23 Status: RADHA Bradshaw Num: [id number] Spec Type: Surgical Subm Dr: Jayme Hi Tissues: A Placenta - 3rd Trimester (Greater than 28 weeks) (PLACENTA) Procedures: ROMARIO, Gross/Micro L5 Patient: Kings Hatfield [id number] (Continued) Specimen: [id number] Received: 09/03/23 (Continued) Gross Description (Continued) Signed (signature on file) Rachel Saldivar MD 09/08/23 1715 Specimen: [id number] Received: 09/03/23 Status: RADHA Bradshaw Num: [id number] Spec Type: Surgical Subm Dr: Jayme Hi Tissues: A Placenta - 3rd Trimester (Greater than 28 weeks) (PLACENTA) Procedures: Kelsie SAENZ/Sushma L5 Patient: [place] [id number] (Continued) Specimen: [id number] Received: 09/03/23 (Continued) Gross Description (Continued) blood [...] A3: random mid-zonal section TW CPT Codes 42093 Specimen: [id number] Received: 09/03/23 Status: RADHA Bradshaw Num: [id number] Spec Type: Surgical Subm Dr: Jayme Hi Tissues: A Placenta - 3rd Trimester (Greater than 28 weeks) (PLACENTA) Procedures: HE/3, Gross/Micro L5 Patient: [place] [id number] (Continued) Signed (signature on file) Tomas-Momo Saldivar MD 09/08/23 1715 Normal [facility] POCT URINE DIPSTICK AUTOMATE DOrdered By: Xochitl Murphy on 08-06-2023 Amorphous sediment LM Ql (Urine sed) [facility] Appearance (U) slightly cloudy [facility] Bacteria [facility] sed) [facility] Bilirubin Ql (U) Negative [facility] Casts LM.LPF (Urine sed) [#/Area] [facility] Color (U) yellow [facility] Crystals LM Nom (Urine sed) [facility] Epithelial cells.squamous LM.HPF (Urine sed) [#/Area] [facility] Flow cytometry specialist review Trevin (Unsp spec) [Interp] [facility] Glucose Auto test strip (U) [Mass/Vol] Negative mg/dL [facility] Interpretation and review of laboratory results Abnormal [facility] Ketones [Mass/Vol] Negative mg/dL [facility] Leukocyte esterase Qn (U) [facility] Leukocyte esterase Test strip Ql (U) Negative [facility] Microscopic observation Gram stain Nom (Bronch spec) [facility] Nitrite Ql (U) Negative [facility] pH (U) 7.5 [pH] Abnormal 5 - 7 [facility] Protein Ql (U) Negative mg/dL [facility] RBC LM.HPF (Urine sed) [#/Area] [facility] RBC Ql (U) Negative [facility] Specific gravity (U) [Rel density] 1.015 1.001 - 1.035 [facility] Transitional cells LM Ql (Urine sed) [facility] Urobilinogen Qn (U) 0.2 [facility] WBC LM.HPF (Urine sed) [#/Area] [facility] No Panel Informationon 05-26 Rubia Hernandez NP 05/26/2023 5:53 PM Ear Cerumen Removal Date/Time: 05/26/2023 5:46 PM Performed by: Rubia Hernandez NP Authorized by: Rubia Hernandez NP Consent: Consent obtained: Verbal Consent given by: Patient Risks, benefits, and alternatives were discussed: yes Risks discussed: Incomplete removal, TM perforation and dizziness Alternatives discussed: No treatment [place] protocol: Patient identity confirmed: Verbally with patient Procedure details: Location: L ear and R ear Procedure type: irrigation Procedure outcomes: cerumen removed Post-procedure details: Inspection: TM intact Hearing quality: Normal Procedure completion: Tolerated well, no immediate complications [facility] Chlamydia/GC by PCR [place] Sw abon 03-04-2023 Chlamydia Dna(Pcr) Not detected [facility] Gonorrhoeae Dna(Pcr) Not detected [facility] C REACTIVE PROTEINon 023 CRP High sensitivity method [Mass/Vol] 4.81 mg/L NINF - 10.00 mg/L [facility] Interpretation and review of laboratory results Normal [facility] CHEM 6 (LYTES, BUN CREA)on 04-27-2022 Anion gap [Moles/Vol] 12 mmol/L 7 - 17 mmol/L [facility] Chloride [Moles/Vol] 105 mmol/L 98 - 10 8 mmol/L [facility] CO2 [Moles/Vol] 25 mmol/L 21 - 31 mmol/L [facility] Creatinine [Mass/Vol] 0.48 mg/dL Low 0.50 - 1.20 mg/dL [facility] eGFR, CKD-EPI, Female - PINF [facility] Comment on above: Reported eGFR is bas ed on the CKD-EPI 2020 equation using creatinine, age, and sex. Potassium [Moles/Vol] 3.9 mmol/L 3.5 - 5.0 mmol/L [facility] Sodium [Moles/Vol] 138 mmol/L 135 - 145 mmol/L [facility] Urea nitrogen [Mass/Vol] 7 mg/dL 7 - 25 mg/dL [facility] Urea nitrogen/Creatinine [Mass ratio] 15 mg/mg [facility] Chronic hepatitis differenti ation between hepatitis B and C virus panelOrdered By: Maty Cook on 02-25-2023 HBV core IgG+IgM Ql (S) Negative Negative [facility] HBV surface Ab IA Ql (S) Negative Negative [facility] HBV surface Ag Ql (S) Negative Negative [facility] HCV Ab Ql (S) Negative Negative [facility] Interpretation and review of laboratory results Normal [facility] FOLATE, SERUMOrdered By: Alissa Chamorro on 02-25-2023 Folate [Mass/Vol] 38.76 ng/mL 5.38 - PIN F ng/mL [facility] Interpretation and review of laboratory results Normal [facility] HEPATIC FUNCTION PANELon Albumin [Mass/Vol] 4.0 g/dL 3.5 - 5.0 g/dL [facility] ALP [Catalytic activity/Vol] 42 U/L 32 - 126 U/L [facility] ALT [Catalytic activity/Vol] 5 U/L Low 9 - 48 U/L [facility] AST [Catalytic activity/Vol] 10 U/L 10 - 39 U/L [facility] Bilirubin [Mass/Vol] 0.5 mg/dL NINF - 1.5 mg/dL [facility] Bilirubin.direct [Mass/Vol] 0.1 mg/dL NINF - 0.3 mg/dL [facility] Protein [Mass/Vol] 6.0 g/dL Low 6.4 - 8.3 g/dL [facility] HIV 1&2 AB/AG Screen (P24 AG )on 02-25-2023 HIV 1&2 AB/AG Non-Reactive [facility] Hepatitis B surface antigeno n 02-25-2023 Hepatitis B Surface Antigen Non-Reactive [facility] No Panel Informationon 02-25 Interpretation and review of laboratory results Abnormal [facility] Syphilis Total(Unknown Syphi lis Status)on 02-25-2023 Syphilis Non-Reactive [facility] Type and screenon 02-25-2023 Abo/Rh(D) Positive [facility] VITAMIN B12on 02-25-2023 Cobalamin (Vitamin B12) [Mass/Vol] 421 pg/mL 211 - 911 pg/mL [facility] Comment on above: Testing of Methylmal onic Acid and Intrinsic Factor Blocking Antibody are recommended if clinical suspicion for pernicious anemia due to B12 deficiency is high for patients with intermediate B12 levels (211 to 400 pg/mL) to rule out spurious heterophile antibodies. Interpretation and review of laboratory results Normal [facility] XR Chest 2 Views*on 04-03-20 XR Chest 2 Views* FINDINGS: No acute cardiac or pulmonary disease is identified. No worrisome mass lesions or infiltrates are seen. No pulmonary edema or pneumothorax is present. Cardiac silhouette size is normal. Skeletal structures are normal. IMPRESSION: No acute cardiac or pulmonary disease Report reported and signed by Herbie Pace on 04/03/2022 1551 Normal [facility] XR Chest 2 Views*on 03-10-20 XR Chest 2 Views* FINDINGS: No acute cardiac or pulmonary disease is identified. No worrisome mass lesions or infiltrates are seen. No pulmonary edema or pneumothorax is present. Cardiac silhouette size is normal. Skeletal structures are normal. IMPRESSION: No focal infiltrates Report reported and signed by Herbie Pace on 03/10/2022 1220 Normal [facility] XR Chest 2 Views*on 12-07-19 XR [...] Pace on 12/06/2021 1352 Normal [facility] XR Chest 2 Views*on 11-20-19 22 XR Chest 2 Views* FINDINGS: No acute cardiac or pulmonary disease is identified. No worrisome mass lesions or infiltrates are seen. No pulmonary edema or pneumothorax is present. Cardiac silhouette size is normal. Skeletal structures are normal. IMPRESSION: No acute cardiac or pulmonary disease Report reported and signed by Herbie Pace on 11/19/2021 1128 Normal [facility] Complete Blood Count with Au to Diffon 07-30-2021 Basophils (Bld) [#/Vol] 0.06 10*3/uL Normal 0.00-0.20 [facility] Comment on above: Performed By: #### C BCAD #### [facility] [address] [place], [place] [id number] Basophils/100 WBC (Bld) 0.5 % Normal [facility] Comment on above: Performed By: #### C BCAD #### [facility] [address] [place], [place] [id number] Eosinophils (Bld) [#/Vol] 0.35 10*3/uL Normal 0.02-0.50 [facility] Comment on above: Performed By: #### C BCAD #### [facility] [address] [place], [place] [id number] Eosinophils/100 WBC (Bld) 2.8 % Normal [facility] Comment on above: Performed By: #### C BCAD #### [facility] [address] [place], [place] [id number] Erythrocyte distribution width (RBC) [Ratio] 12.7 % Normal 11.0-15.0 [facility] Comment on above: Performed By: #### C BCAD #### [facility] [address] [place], [place] [id number] Hematocrit (Bld) [Volume fraction] 37.5 % Normal 35.0-47.0 [facility] Comment on above: Performed By: #### C BCAD #### [facility] [address] [place], [place] [id number] Hemoglobin (Bld) [Mass/Vol] 12.2 g/dL Normal 11.6-15.5 [facility] Comment on above: Performed By: #### C BCAD #### [facility] [address] [place], [place] [id number] Lymphocytes (Bld) [#/Vol] 2.5 10*3/uL Normal 0.9-3.9 [facility] Comment on above: Performed By: #### C BCAD #### [facility] [address] [place], [place] [id number] Lymphocytes/100 WBC (Bld) 19.8 % Normal [facility] Comment on above: Performed By: #### C BCAD #### [facility] [address] [place], [place] [id number] MCH (RBC) [Entitic mass] 29.7 pg Normal 27.0-33.0 [facility] Comment on above: Performed By: #### C BCAD #### [facility] [address] [place], [place] [id number] MCHC (RBC) [Mass/Vol] 32.5 g/dL Normal 32.0-36.0 [facility] Comment on above: Performed By: #### C BCAD #### [facility] [address] [place], [place] [id number] MCV (RBC) [Entitic vol] 91 fL Normal 80-100 [facility] Comment on above: Performed By: #### C BCAD #### [facility] [address] [place], [place] [id number] Monocytes (Bld) [#/Vol] 0.9 10*3/uL Normal 0.2-0.9 [facility] Comment on above: Performed By: #### C BCAD #### [facility] [address] [place], [place] [id number] Monocytes/100 WBC (Bld) 7.2 % Normal [facility] Comment on above: Performed By: #### C BCAD #### [facility] [address] [place], [place] [id number] Neutrophils (Bld) [#/Vol] 8.8 10*3/uL High 1.5-7.8 [facility] Comment on above: Performed By: #### C BCAD #### [facility] [address] [place], [place] [id number] Neutrophils/100 WBC (Bld) 69.3 % Normal [facility] Comment on above: Performed By: #### C BCAD #### [facility] [address] [place], [place] [id number] Platelet mean volume (Bld) [Entitic vol] 10.20 fL Normal 7.50-12.50 [facility] Comment on above: Performed By: #### C BCAD #### [facility] [address] [place], [place] [id number] Platelets (Bld) [#/Vol] 258 10*3/uL Normal 140-400 [facility] Comment on above: Performed By: #### C BCAD #### [facility] [address] [place], [place] [id number] RBC (Bld) [#/Vol] 4.11 10*6/uL Normal 3.90-5.20 [facility] Comment on above: Performed By: #### C BCAD #### [facility] [address] [place], [place] [id number] RDW-SD 41.4 fL Normal 37.0-50.0 [facility] Comment on above: Performed By: #### C BCAD #### [facility] [address] [place], [place] [id number] WBC (Bld) [#/Vol] 12.7 10*3/uL High 3.8-11.0 [facility] Comment on above: Performed By: #### C BCAD #### [facility] [address] [place], [place] [id number] IgG Subclasseson 07-12-2021 IgG subclass 1 300 mg/dL Normal 240-1118 [facility] Comment on above: Result Comment: (NOT E) REFERENCE INTERVAL: Immunoglobulin G Subclass 1 The total IgG (mg/dL) can be derived from the sum of the subclass IgG1, IgG2, IgG3, and IgG4 values. However, a confirmatory and more precise total IgG is available by the turbidimetric method of quantitation for total IgG. Refer to test Immunoglobulin G, Serum ([id number]). Access complete set of age- and/or gender-specific reference intervals for this test in the [facility] Laboratory Test Directory (Data Marketplace). Performed By: #### A IGGSB, APNAB1 #### [facility] [address] [place] [address] Sales Service Technician: Cody Dye MD #### IFX, FLLS, IMMS, CDP, THYGLA #### [address] [id number] Sales Service Technician: Jone Eller MD IgG subclass 2 193 mg/dL Normal 124-549 [facility] Comment on above: Result Comment: (NOT E) REFERENCE INTERVAL: Immunoglobulin G Subclass 2 Access complete set of age- and/or gender-specific reference intervals for this test in the [facility] Laboratory Test Directory (Data Marketplace). Performed By: #### A IGGSB, APNAB1 #### [facility] [address] [place] [address] Sales Service Technician: Cody Dye MD #### IFX, FLLS, IMMS, CDP, THYGLA #### [address] [address] Sales Service Technician: Jone Eller MD IgG subclass 3 61 mg/dL Normal 21-134 [facility] Comment on above: Result Comment: (NOT E) REFERENCE INTERVAL: Immunoglobulin G Subclass 3 Access complete set of age- and/or gender-specific reference intervals for this test in the [facility] Laboratory Test Directory (Data Marketplace). Performed By: #### A IGGSB, APNAB1 #### [facility] [address] [place] [address] Sales Service Technician: Cody Dye MD #### IFX, FLLS, IMMS, CDP, THYGLA #### [address] [phone] Sales Service Technician: Jone Eller MD IgG subclass 4 3 mg/dL Normal 1-123 [facility] Comment on above: Result Comment: (NOT E) REFERENCE INTERVAL: Immunoglobulin G Subclass 4 Access complete set of age- and/or gender-specific reference intervals for this test in the [facility] Test Directory (Data Marketplace). Performed by [facility], [address] [place], [place] [id number] www.[employer], Ruthie Augustin MD, Lab. Director Performed By: #### A IGGSB, APNAB1 #### [facility] [address] [place], [place] [id number] Sales Service Technician: Cody Dye MD #### IFX, FLLS, IMMS, CDP, THYGLA #### [facility] [address] [place], [place] [phone] Sales Service Technician: Jone Eller MD Pneumococcal Ab, IgGon 07-12 S.pneum Interp See Note Normal [facility] Comment on above: Result Comment: (NOT [...] GALAVIZ, Kedar JW, Vinny X, HE, Alber HR. Multilaboratory assessment of threshold versus fold-change algorithms for minimizing analytical variability in multiplexed pneumococcal IgG measurements. Clin Vaccine Immunol. 2014;21(7):982-8. 2. Goldie GALAVIZ, Alber CARDENAS. Use and Clinical Interpretation of Pneumococcal Antibody Measurements in the Evaluation of Humoral Immune Function. Clin Vaccine Immunol. 2015;22(2):148-152. This test was developed and its performance characteristics determined by [facility]. It has not been cleared or approved by the [place] Food and Drug Administration. This test was performed in a CLIA certified laboratory and is intended for clinical purposes. Performed By: [facility] [address] [place], [place] [id number] [employer] Screw Hole: Ruthie Augustin MD Performed By: #### A IGGSB, APNAB1 #### [facility] [address] [place] [phone] Sales Service Technician: Cody Dye MD #### IFX, FLLS, IMMS, CDP, THYGLA #### [address] [address] Sales Service Technician: Jone Eller MD S.pneum type 1,IgG 0.11 ug/mL [facility] Comment on above: Performed By: #### A IGGSB, APNAB1 #### [facility] [address] [place] [address] Sales Service Technician: Cody Dye MD #### IFX, FLLS, IMMS, CDP, THYGLA #### [facility] [address] [place], [place] [phone] Sales Service Technician: Jone Eller MD S.pneum type 12F,IgG 0.14 ug/mL Normal [facility] Comment on above: Performed By: #### A IGGSB, APNAB1 #### [facility] [address] [place] [address] Sales Service Technician: Cody Dye MD #### IFX, FLLS, IMMS, CDP, THYGLA #### [address] [address] Sales Service Technician: Jone Eller MD S.pneum type 14,IgG 0.19 ug/mL Normal [facility] Comment on above: Performed By: #### A IGGSB, APNAB1 #### [facility] [address] [place] [address] Sales Service Technician: Cody Dye MD #### IFX, FLLS, IMMS, CDP, THYGLA #### [address] [address] Sales Service Technician: Jone Eller MD S.pneum type 18C,IgG 6.82 ug/mL Normal [facility] Comment on above: Performed By: #### A IGGSB, APNAB1 #### [facility] [address] [place], [place] [id number] Sales Service Technician: Cody Dye MD #### IFX, FLLS, IMMS, CDP, THYGLA #### [address] [phone] Sales Service Technician: Jone Eller MD S.pneum type 19F,IgG 10.07 ug/mL Normal [facility] Comment on above: Performed By: #### A IGGSB, APNAB1 #### [facility] [address] [place] [address] Sales Service Technician: Cody Dye MD #### IFX, FLLS, IMMS, CDP, THYGLA #### [address] [phone] Sales Service Technician: Jone Eller MD S.pneum type 23F,IgG 2.17 ug/mL Normal [facility] Comment on above: Performed By: #### A IGGSB, APNAB1 #### [facility] [address] [place] [address] Sales Service Technician: Cody Dye MD #### IFX, FLLS, IMMS, CDP, THYGLA #### [address] [phone] Sales Service Technician: Jone Eller MD S.pneum type 3,IgG 0.92 ug/mL Normal [facility] Comment on above: Performed By: #### A IGGSB, APNAB1 #### [facility] [address] [place], [place] [phone] Sales Service Technician: Cody Dye MD #### IFX, FLLS, IMMS, CDP, THYGLA #### [address] [phone] Sales Service Technician: Jone Eller MD S.pneum type 4,IgG 0.08 ug/mL Normal [facility] Comment on above: Performed By: #### A IGGSB, APNAB1 #### [facility] [address] [place], [place] [id number] Sales Service Technician: Cody Dye MD #### IFX, FLLS, IMMS, CDP, THYGLA #### [address] [phone] Sales Service Technician: Jone Eller MD S.pneum type 5,IgG 3.04 ug/mL Normal [facility] Comment on above: Performed By: #### A IGGSB, APNAB1 #### [facility] [address] [place] [address] Sales Service Technician: Cody Dye MD #### IFX, FLLS, IMMS, CDP, THYGLA #### [address] [phone] Sales Service Technician: Jone Eller MD S.pneum type 6B,IgG 0.76 ug/mL Normal [facility] Comment on above: Performed By: #### A IGGSB, APNAB1 #### [facility] [address] [place] [address] Sales Service Technician: oCdy Dye MD #### IFX, FLLS, IMMS, CDP, THYGLA #### [address] [phone] Sales Service Technician: Jone Eller MD S.pneum type 7F,IgG 1.36 ug/mL Normal [facility] Comment on above: Performed By: #### A IGGSB, APNAB1 #### [facility] [address] [place] [address] Sales Service Technician: Cody Dye MD #### IFX, FLLS, IMMS, CDP, THYGLA #### [address] [phone] Sales Service Technician: Jone Eller MD S.pneum type 8,IgG 0.40 ug/mL Normal [facility] Comment on above: Performed By: #### A IGGSB, APNAB1 #### [facility] [address] [place], [place] [id number] Sales Service Technician: Cody Dye MD #### IFX, FLLS, IMMS, CDP, THYGLA #### [address] [phone] Sales Service Technician: Jone Eller MD S.pneum type 9N,IgG 0.54 ug/mL Normal [facility] Comment on above: Performed By: #### A IGGSB, APNAB1 #### [facility] [address] [place] [address] Sales Service Technician: Cody Dye MD #### IFX, FLLS, IMMS, CDP, THYGLA #### [facility] [address] [place] [address] Sales Service Technician: Jone Eller MD S.pneum type 9V,IgG 0.75 ug/mL [facility] Comment on above: Performed By: #### A IGGSB, APNAB1 #### [facility] [address] [place] [address] Sales Service Technician: Cody Dye MD #### IFX, FLLS, IMMS, CDP, THYGLA #### [address] [phone] Sales Service Technician: Jone Eller MD Immunofixation,Bloodon 07-10 IFX - Interpret. IMMUNOFIXATION IS NEGATIVE FOR MONOCLONAL IMMUNOGLOBULIN. Normal [facility] Comment on above: Performed By: #### A IGGSB, APNAB1 #### [facility] [address] [place] [address] Sales Service Technician: Cody Dye MD #### IFX, FLLS, IMMS, CDP, THYGLA #### [address] [phone] Sales Service Technician: Jone Eller MD Pathologist Review: ELECTRONICALLY YUNI TURNER M.D. [facility] Comment on above: Performed By: #### A IGGSB, APNAB1 #### [facility] [address] [place] [address] Sales Service Technician: Cody Dye MD #### IFX, FLLS, IMMS, CDP, THYGLA #### [address] [phone] Sales Service Technician: Jone Eller MD Lymphocyte Subseton 07-11-19 22 Ab(CD3-,CD56+) 123 /uL Normal 90-600 [facility] Comment on above: Performed By: #### A IGGSB, APNAB1 #### [facility] [address] [place] [address] Sales Service Technician: Cody Dye MD #### IFX, FLLS, IMMS, CDP, THYGLA #### [address] [address] Sales Service Technician: Jone Eller MD Ab.T Help(CD3+,CD4+) 1652 /uL High 309-1571 [facility] Comment on above: Performed By: #### A IGGSB, APNAB1 #### [facility] [address] [place] [address] Sales Service Technician: Cody Dye MD #### IFX, FLLS, IMMS, CDP, THYGLA #### [address] [address] Sales Service Technician: Jone Eller MD Ab.T Sup.(CD3+,CD8+) 641 /uL Normal 282-999 [facility] Comment on above: Performed By: #### A IGGSB, APNAB1 #### [facility] [address] [place] [address] Sales Service Technician: Cody Dye MD #### IFX, FLLS, IMMS, CDP, THYGLA #### [address] [address] Sales Service Technician: Jone Eller MD Abs. Total B (CD19+) 0 /uL Low 71-567 [facility] Comment on above: Performed By: #### A IGGSB, APNAB1 #### [facility] [address] [place] [address] Sales Service Technician: Cody Dye MD #### IFX, FLLS, IMMS, CDP, THYGLA #### [address] [address] Sales Service Technician: Jone Eller MD Abs. Total T (CD3+) 2317 /uL High 411-2061 [facility] Comment on above: Performed By: #### A IGGSB, APNAB1 #### [facility] [address] [place] [address] Sales Service Technician: Cody Dye MD #### IFX, FLLS, IMMS, CDP, THYGLA #### [address] [address] Sales Service Technician: Jone Eller MD H/S Ratio(CD4+/CD8+) 2.58 Normal 0.6-2.8 [facility] Comment on above: Performed By: #### A IGGSB, APNAB1 #### [facility] [address] [place] [address] Sales Service Technician: Cody Dye MD #### IFX, FLLS, IMMS, CDP, THYGLA #### [address] [address] Sales Service Technician: Jone Eller MD Lymphocytes/100 WBC (Bld) 17 % Low 25-45 [facility] Comment on above: Performed By: #### A IGGSB, APNAB1 #### [facility] [address] [place] [address] Sales Service Technician: Cody Dye MD #### IFX, FLLS, IMMS, CDP, THYGLA #### [address] [address] Sales Service Technician: Jone Eller MD NK (CD3-,CD56+) 5 % Low 6-29 [facility] Comment on above: Performed By: #### A IGGSB, APNAB1 #### [facility] [address] [place] [address] Sales Service Technician: Cody Dye MD #### IFX, FLLS, IMMS, CDP, THYGLA #### [address] [address] Sales Service Technician: Jone Eller MD T [place] (CD3+,CD4+) 67 % High 27-64 [facility] Comment on above: Performed By: #### A IGGSB, APNAB1 #### [facility] [address] [place] [address] Sales Service Technician: Coyd Dye MD #### IFX, FLLS, IMMS, CDP, THYGLA #### [address] [phone] Sales Service Technician: Joen Eller MD T Sup. (CD3+, CD8+) 26 % Normal 17-48 [facility] Comment on above: Performed By: #### A IGGSB, APNAB1 #### [facility] [address] [place] [address] Sales Service Technician: Cody Dye MD #### IFX, FLLS, IMMS, CDP, THYGLA #### [address] [phone] Sales Service Technician: Jone Eller MD Total B (CD19+) 0 % Low 5-25 [facility] Comment on above: Performed By: #### A IGGSB, APNAB1 #### [facility] [address] [place] [address] Sales Service Technician: Cody Dye MD #### IFX, FLLS, IMMS, CDP, THYGLA #### [address] [phone] Sales Service Technician: Jone Eller MD Total T (CD3+) 94 % Normal 57-94 [facility] Comment on above: Performed By: #### A IGGSB, APNAB1 #### [facility] [address] [place] [address] Sales Service Technician: Cody Dye MD #### IFX, FLLS, IMMS, CDP, THYGLA #### [facility] [address] [place] [address] [phone] Sales Service Technician: Jone Eller MD WBC (Bld) [#/Vol] 14.5 10*3/uL High 4.5-13.5 [facility] Comment on above: Performed By: #### A IGGSB, APNAB1 #### [facility] [address] [place] [address] Sales Service Technician: Cody Dye MD #### IFX, FLLS, IMMS, CDP, THYGLA #### [address] [phone] Sales Service Technician: Jone Eller MD Thyroglobulin Abon Thyroglobulin Ab Qn [IU]/mL Normal 0.0-40.0 [facility] Comment on above: Result Comment: Reference Range: <40.0 Negative 40.0-60.0 Equivocal >60.0 Positive When results are Equivocal, it is recommended to retest after 8-12 weeks. Performed By: #### A IGGSB, APNAB1 #### [facility] [address] [place] [address] Sales Service Technician: Cody Dye MD #### IFX, FLLS, IMMS, CDP, THYGLA #### [facility] [address] [place] [address] [phone] Sales Service Technician: Jone Eller MD CBC with Auto Differentialon 07-09-2021 Absolute Eos # 0.43 [facility] th Absolute Immature Granulocyte 0.08 [facility] Absolute Lymph # 2.41 [facility] [place] [facility]26 [facility] Bas[facility] (Bld) [#/Vol] 0.08 10*3/uL [facility] Basophils/100 WBC (Bld) 1 % 0 - 2 % [facility] Eosinophils/100 WBC (Bld) 3 % 1 - 4 % [facility] Hematocrit (Bld) [Volume fraction] 40.7 % 36.3 - 47.1 % [facility] Hemoglobin.gastrointe stinal spec 1 Ql (Stl) 13.5 g/dL 11.9 - 15.1 g/dL [facility] Immature granulocytes/100 WBC (Bld) 1 % High 0 [facility] Interpretation and review of laboratory results Abnormal [facility] Lymphocytes/100 WBC (Bld) 17 % Low 25 - 45 % [facility] MCH (RBC) [Entitic mass] 30.1 pg 25.2 - 33.5 pg [facility] MCHC (RBC) [Mass/Vol] 33.2 g/dL 28.4 - 34.8 g/dL [facility] MCV (RBC) [Entitic vol] 90.8 fL 82.6 - 102.9 fL [facility] Monocytes/100 WBC (Bld) 9 % High 2 - 8 % [facility] NRBC Automated 0.0 0.0 per 100 WBC [facility] Platelet distribution width (Bld) [Ratio] 12.7 % 11.8 - 14.4 % [facility] Platelet mean volume (Bld) [Entitic vol] 9.9 fL 8.1 - 13.5 fL [facility] Platelets (Bld) [#/Vol] 277 10*3/uL [facility] RBC (Bld) [#/Vol] 4.48 10*6/uL 3.95 - 5.1 1 m/uL [facility] Segmented neutrophils/100 WBC (Bld) 69 % High 34 - 64 % [facility] Segs Absolute 10.22 [facility] [#/Vol] 14.5 10*3/uL High [facility] CBC with Diffon 07-09-2021 Abs. Basophil 0.08 k/uL Normal 0.00-0.20 [facility] Comment on above: Performed By: #### A IGGSB, APNAB1 #### [facility] [address], [place] [phone] Sales Service Technician: Cody Dye MD #### IFX, FLLS, IMMS, CDP, THYGLA #### [address] [address] Sales Service Technician: Jone Eller MD Abs.Imm.Granulocyte 0.08 k/uL Normal 0.00-0.30 [facility] Comment on above: Performed By: #### A IGGSB, APNAB1 #### [facility] [address] [place] [address] Sales Service Technician: Cody Dye MD #### IFX, FLLS, IMMS, CDP, THYGLA #### [place] [address] Sales Service Technician: Jone Eller MD Abs.Neutrophil (Seg) 10.22 k/uL High 1.80-8.00 [facility] Comment on above: Performed By: #### A IGGSB, APNAB1 #### [facility] [address] [place] [address] Sales Service Technician: Cody Dye MD #### IFX, FLLS, IMMS, CDP, THYGLA #### [place] [address] Sales Service Technician: Jone Eller MD Basophils/100 WBC (Bld) 1 % Normal 0-2 [facility] Comment on above: Performed By: #### A IGGSB, APNAB1 #### [facility] [address] [place] [address] Sales Service Technician: Cody Dye MD #### IFX, FLLS, IMMS, CDP, THYGLA #### [place] [address] Sales Service Technician: Jone Eller MD Eosinophils (Bld) [#/Vol] 0.43 10*3/uL Normal 0.00-0.44 [facility] Comment on above: Performed By: #### A IGGSB, APNAB1 #### [facility] [address] [place] [address] Sales Service Technician: Cody Dye MD #### IFX, FLLS, IMMS, CDP, THYGLA #### [address] [phone] Sales Service Technician: Jone Eller MD Eosinophils/100 WBC (Bld) 3 % Normal 1-4 [facility] Comment on above: Performed By: #### A IGGSB, APNAB1 #### [facility] [address] [place] [address] Sales Service Technician: Cody Dye MD #### IFX, FLLS, IMMS, CDP, THYGLA #### [address] [phone] Sales Service Technician: Jone Eller MD Erythrocyte distribution width (RBC) [Ratio] 12.7 % Normal 11.8-14.4 [facility] Comment on above: Performed By: #### A IGGSB, APNAB1 #### [facility] [address] [place] [address] Sales Service Technician: Cody Dye MD #### IFX, FLLS, IMMS, CDP, THYGLA #### [address] [phone] Sales Service Technician: Jone Eller MD Hematocrit (Bld) [Volume fraction] 40.7 % Normal 36.3-47.1 [facility] Comment on above: Performed By: #### A IGGSB, APNAB1 #### [facility] [address] [place] [address] Sales Service Technician: Cody Dye MD #### IFX, FLLS, IMMS, CDP, THYGLA #### [address] [phone] Sales Service Technician: Jone Eller MD Hemoglobin (Bld) [Mass/Vol] 13.5 g/dL Normal 11.9-15.1 [facility] Comment on above: Performed By: #### A IGGSB, APNAB1 #### [facility] [address] [place] [address] Sales Service Technician: Cody Dye MD #### IFX, FLLS, IMMS, CDP, THYGLA #### [address] [address] Sales Service Technician: Jone Eller MD Immature granulocytes/100 WBC (Bld) 1 % High 0 [facility] Comment on above: Performed By: #### A IGGSB, APNAB1 #### [facility] [address] [place] [address] Sales Service Technician: Cody Dye MD #### IFX, FLLS, IMMS, CDP, THYGLA #### [address] [address] Sales Service Technician: Jone Eller MD Lymphocytes (Bld) [#/Vol] 2.41 10*3/uL Normal 1.20-5.20 [facility] Comment on above: Performed By: #### A IGGSB, APNAB1 #### [facility] [address] [place] [address] Sales Service Technician: Cody Dye MD #### IFX, FLLS, IMMS, CDP, THYGLA #### [address] [phone] Sales Service Technician: Jone Eller MD Lymphocytes/100 WBC (Bld) 17 % Low 25-45 [facility] Comment on above: Performed By: #### A IGGSB, APNAB1 #### [facility] [address] [place] [address] Sales Service Technician: Cody Dye MD #### IFX, FLLS, IMMS, CDP, THYGLA #### [address] [address] Sales Service Technician: Jone Eller MD MCH (RBC) [Entitic mass] 30.1 pg Normal 25.2-33.5 [facility] Comment on above: Performed By: #### A IGGSB, APNAB1 #### [facility] [address] [place] [address] Sales Service Technician: Cody Dye MD #### IFX, FLLS, IMMS, CDP, THYGLA #### [address] [address] Sales Service Technician: Jone Eller MD MCHC (RBC) [Mass/Vol] 33.2 g/dL Normal 28.4-34.8 [facility] Comment on above: Performed By: #### A IGGSB, APNAB1 #### [facility] [address] [place] [address] Sales Service Technician: Cody Dye MD #### IFX, FLLS, IMMS, CDP, THYGLA #### [place] [address] Sales Service Technician: Jone Eller MD MCV (RBC) [Entitic vol] 90.8 fL Normal 82.6-102.9 [facility] Comment on above: Performed By: #### A IGGSB, APNAB1 #### [facility] [address] [place] [address] Sales Service Technician: Cody Dey MD #### IFX, FLLS, IMMS, CDP, THYGLA #### [address] [phone] Sales Service Technician: Jone Eller MD Monocytes (Bld) [#/Vol] 1.26 10*3/uL Normal 0.10-1.40 [facility] Comment on above: Performed By: #### A IGGSB, APNAB1 #### [facility] [address] [place] [address] Sales Service Technician: Cody Dye MD #### IFX, FLLS, IMMS, CDP, THYGLA #### [facility] [address] [place] [address] Sales Service Technician: Jone Eller MD Monocytes/100 WBC (Bld) 9 % High 2-8 [facility] Comment on above: Performed By: #### A IGGSB, APNAB1 #### [facility] [address] [place] [address] Sales Service Technician: Cody Dye MD #### IFX, FLLS, IMMS, CDP, THYGLA #### [address] [phone] Sales Service Technician: Jone Eller MD Neutrophil (Seg) 69 % High 34-64 [facility] Comment on above: Performed By: #### A IGGSB, APNAB1 #### [facility] [address] [place] [address] Sales Service Technician: Cody Dye MD #### IFX, FLLS, IMMS, CDP, THYGLA #### [address] [phone] Sales Service Technician: Jone Eller MD NRBC Automated 0.0 per 100 WBC Normal 0.0 [facility] Comment on above: Performed By: #### A IGGSB, APNAB1 #### [facility] [address] [place] [address] Sales Service Technician: Cody Dye MD #### IFX, FLLS, IMMS, CDP, THYGLA #### [address] [phone] Sales Service Technician: Jone Eller MD Platelet mean volume (Bld) [Entitic vol] 9.9 fL Normal 8.1-13.5 [facility] Comment on above: Performed By: #### A IGGSB, APNAB1 #### [facility] [address] [place] [address] Sales Service Technician: Cody Dye MD #### IFX, FLLS, IMMS, CDP, THYGLA #### [facility] [address] [place] [phone] Sales Service Technician: Jone Eller MD Platelets (Bld) [#/Vol] 277 10*3/uL Normal 138-453 [facility] Comment on above: Performed By: #### A IGGSB, APNAB1 #### [facility] [address] [place] [address] Sales Service Technician: Cody Dye MD #### IFX, FLLS, IMMS, CDP, THYGLA #### [address] [address] Sales Service Technician: Jone Eller MD RBC (Bld) [#/Vol] 4.48 10*6/uL Normal 3.95-5.11 [facility] Comment on above: Performed By: #### A IGGSB, APNAB1 #### [facility] [address] [place] [address] Sales Service Technician: Cody Dye MD #### IFX, FLLS, IMMS, CDP, THYGLA #### [address] [address] Sales Service Technician: Jone Eller MD WBC (Bld) [#/Vol] 14.5 10*3/uL High 4.5-13.5 [facility] Comment on above: Performed By: #### A IGGSB, APNAB1 #### [facility] [address] [place] [address] Sales Service Technician: Cody Dye MD #### IFX, FLLS, IMMS, CDP, THYGLA #### [facility] [address] [place] [address] [phone] Sales Service Technician: Jone Eller MD Immunoglobulin Panel (IgG, I gA, IgM)on 07-09-2021 IgA [Mass/Vol] 201 mg/dL 70 - 400 mg/dL [facility] IgG [Mass/Vol] 545 mg/dL Low 700 - 1600 mg/dL [facility] IgM [Mass/Vol] 70 mg/dL 40 - 230 mg/dL [facility] Interpretation and review of laboratory results Abnormal [facility] Immunoglobulinson 07-09-2021 IgA [Mass/Vol] 201 mg/dL Normal 70-400 [facility] Comment on above: Performed By: #### A IGGSB, APNAB1 #### [facility] [address] [place] [address] Sales Service Technician: Cody Dye MD #### IFX, FLLS, IMMS, CDP, THYGLA #### [facility] [address] [place] [address] [phone] Sales Service Technician: Jone Eller MD IgG [Mass/Vol] 545 mg/dL Low 700-1600 [facility] Comment on above: Performed By: #### A IGGSB, APNAB1 #### [facility] [address] [place] [address] Sales Service Technician: Cody Dye MD #### IFX, FLLS, IMMS, CDP, THYGLA #### [facility] [address] [place] [address] [phone] Sales Service Technician: Jone Eller MD IgM [Mass/Vol] 70 mg/dL Normal 40-230 [facility] Comment on above: Performed By: #### A IGGSB, APNAB1 #### [facility] [address] [place] [address] Sales Service Technician: Cody Dye MD #### IFX, FLLS, IMMS, CDP, THYGLA #### [facility] [address] [place] [address] Sales Service Technician: Jone Eller MD CBC AUTO DIFFon 06-27-2021 BASO # 0.1 103/ul Normal 0.0-0.1 [facility] Comment on above: Performed By: #### T RANSFR #### [facility] [address] [place] [address] Dr. Orlando Saldivar Basophils/100 WBC (Bld) 0.5 % Normal 0.2-2.0 [facility] Comment on above: Performed By: #### T RANSFR #### [facility] [address] [place] [address] Dr. Orlando Saldivar EO # 0.4 103/ul Normal 0.0-0.7 [facility] Comment on above: Performed By: #### T RANSFR #### [facility] [address] [place] [address] Dr. Orlando Saldivar Eosinophils/100 WBC (Bld) 2.4 % Normal 0.9-7.0 [facility] Comment on above: Performed By: #### T RANSFR #### [facility] [address] [place] [address] Dr. Orlando Saldivar Erythrocyte distribution width (RBC) [Ratio] 12.8 % Normal 11.0-15.0 [facility] Comment on above: Performed By: #### T RANSFR #### [facility] [address] [place] [address] Dr. Orlando Saldivar Hematocrit (Bld) [Volume fraction] 38.1 % Normal 36.0-48.0 [facility] Comment on above: Performed By: #### T RANSFR #### [facility] [address] [place] [address] Dr. Orlando Saldivar Hemoglobin (Bld) [Mass/Vol] 12.7 g/dL Normal 12.0-16.0 [facility] Comment on above: Performed By: #### T RANSFR #### [facility] [address] [place] [address] Dr. Orlando Saldivar IG # 0.05 10e3/ul Critically high 0.00-0.03 [facility] Comment on above: Performed By: #### T RANSFR #### [facility] [address] [place] [address] Dr. Orlando Saldivar IG % 0.3 % Normal 0.0-0.5 [facility] Comment on above: Performed By: #### T RANSFR #### [facility] [address] [place] [address] Dr. Orlando Saldivar LYMPH # 2.5 103/ul Normal 1.2-3.8 [facility] Comment on above: Performed By: #### T RANSFR #### [facility] [address] [place] [address] Dr. Orlando Saldivar Lymphocytes/100 WBC (Bld) 16.1 % Critically low 20.5-60.0 [facility] Comment on above: Performed By: #### T RANSFR #### [facility] [address] [place] [address] Dr. Orlando Saldivar MANUAL DIFF REQ NO Normal [facility] Comment on above: Performed By: #### T RANSFR #### [facility] [address] [place] [address] Dr. Orlando Saldivar MCH (RBC) [Entitic mass] 30.0 pg Normal 26.7-34.0 [facility] Comment on above: Performed By: #### T RANSFR #### [facility] [address] [place] [address] Dr. Orlando Saldivar MCHC (RBC) [Mass/Vol] 33.3 g/dL Normal 29.9-35.2 [facility] Comment on above: Performed By: #### T RANSFR #### [facility] [address] [place] [address] Dr. Orlando Saldivar MCV (RBC) [Entitic vol] 90.1 fL Normal 81.0-99.0 [facility] Comment on above: Performed By: #### T RANSFR #### [facility] [address] [place] [address] Dr. Orlando Saldivar MONO # 1.0 103/ul Critically high 0.3-0.[address] [facility] Comment on above: Performed By: #### T RANSFR #### [facility] [address] [place] [address] Dr. Orlando Saldivar Monocytes/100 WBC (Bld) 6.6 % Normal 1.7-12.[address] [facility] Comment on above: Performed By: #### T RANSFR #### [facility] [address] [place] [address] Dr. Orlando Saldivar NEUT # 11.3 103/ul Critically high 1.4-6.5 [facility] Comment on above: Performed By: #### T RANSFR #### [facility] [address] [place] [address] Dr. Orlando Saldivar Neutrophils/100 WBC (Bld) 74.1 % Normal 43.0-75.0 [facility] Comment on above: Performed By: #### T RANSFR #### [facility] [address] [place] [address] Dr. Orlando Saldivar Platelet mean volume (Bld) [Entitic vol] 9.3 fL Critically low 9.5-13.[address] [facility] Comment on above: Performed By: #### T RANSFR #### [facility] [address] [place] [address] Dr. Orlando Saldivar PLT 256 103/ul Normal 150-[address] [facility] Comment on above: Performed By: #### T RANSFR #### [facility] [address] [place] [address] Dr. Orlando Saldivar RBC 4.23 106/ul Normal 4.20-5.[address] [facility] Comment on above: Performed By: #### T RANSFR #### [facility] [address] [place] [address] Dr. Orlando Saldivar WBC 15.2 103/ul Critically high 4.0-11.0 [facility] Comment on above: Performed By: #### T RANSFR #### [facility] [address] [place] [address] Dr. Orlando Saldivar CRPon 06-27-2021 CRP [Mass/Vol] mg/L Normal <=1.0 [facility] Comment on above: Performed By: #### C MP, CRP #### [facility] [address] [place] [address] Dr. Orlando Saldivar PROF 14(COMP METB)on 022 Albumin [Mass/Vol] 3.8 g/dL Normal 3.5-5.0 [facility] Comment on above: Performed By: #### C MP, CRP #### [facility] [address] [place] [address] Dr. Orlando Saldivar Albumin/Globulin [Mass ratio] 1.2 {ratio} Normal [facility] Comment on above: Performed By: #### C MP, CRP #### [facility] [address] [place] [address] Dr. Orlando Saldivar ALP [Catalytic activity/Vol] 65 U/L Normal 38-126 [facility] Comment on above: Performed By: #### C MP, CRP #### [facility] [address] [place] [address] Dr. Orlando Saldivar ALT [Catalytic activity/Vol] 11 U/L Normal 9-52 [facility] Comment on above: Performed By: #### C MP, CRP #### [facility] [address] [place] [address] Dr. Orlando Saldivar Anion gap [Moles/Vol] 12.9 mmol/L Normal [facility] Comment on above: Performed By: #### C MP, CRP #### [facility] [address] [place] [address] Dr. Orlando Saldivar AST [Catalytic activity/Vol] 10 U/L Critically low 14-36 [facility] Comment on above: Performed By: #### C MP, CRP #### [facility] [address] [place] [address] Dr. Orlando Saldivar Bilirubin [Mass/Vol] 0.6 mg/dL Normal 0.2-1.3 [facility] Comment on above: Performed By: #### C MP, CRP #### [facility] [address] [address] [address] Orlando Saldivar Calcium [Mass/Vol] 9.0 mg/dL Normal 8.4-10.2 [facility] Comment on above: Performed By: #### C MP, CRP #### [facility] [address] [address] [address] Orlando Saldivar Chloride [Moles/Vol] 102 mmol/L Normal 98-[address] [facility] Comment on above: Performed By: #### C MP, CRP #### [facility] [address] [place] [address] Dr. Orlando Saldivar CO2 [Moles/Vol] 28.9 mmol/L Normal 22.0-30.0 [facility] Comment on above: Performed By: #### C MP, CRP #### [facility] [address] [place] [address] Dr. Orlando Saldivar Creatinine [Mass/Vol] 0.80 mg/dL Normal 0.52-1.04 [facility] Comment on above: Performed By: #### C MP, CRP #### [facility] [address] [place] [address] Dr. Orlando Saldivar EGFR-AF GRENADIAN >60 Normal >=60 [facility] Comment on above: Performed By: #### C MP, CRP #### [facility] [address] [place] [address] Dr. Orlando Saldivar EGFR-NON AF GRENADIAN >60 Normal >=[address] [facility] Comment on above: Performed By: #### C MP, CRP #### [facility] [address] [place] [address] Dr. Orlando Saldivar Globulin (S) [Mass/Vol] 3.1 g/dL Normal [facility] Comment on above: Performed By: #### C MP, CRP #### [facility] [address] [place] [address] Dr. Orlando Saldivar Glucose [Mass/Vol] 90 mg/dL Normal 74-106 [facility] Comment on above: Performed By: #### C MP, CRP #### [facility] [address] [place], [place] [phone] Dr. Orlando Saldivar Potassium [Moles/Vol] 3.8 mmol/L Normal 3.4-5.0 [facility] Comment on above: Performed By: #### C MP, CRP #### [facility] [address] [place] [address] Dr. Orlando Saldivar Protein [Mass/Vol] 6.9 g/dL Normal 6.1-8.2 [facility] Comment on above: Performed By: #### C MP, CRP #### [facility] [address] [place] [address] Dr. Orlando Saldivar Sodium [Moles/Vol] 140 mmol/L Normal 137-145 [facility] Comment on above: Performed By: #### C MP, CRP #### [facility] [address] [place] [address] Dr. Orlando Saldivar Urea nitrogen [Mass/Vol] 13.0 mg/dL Normal 6.4-19.3 [facility] Comment on above: Performed By: #### C MP, CRP #### [facility] [address] [place] [address] Dr. Orlando Saldivar Urea nitrogen/Creatinine [Mass ratio] 16.2 mg/mg Normal [facility] Comment on above: Performed By: #### C MP, CRP #### [facility] [address] [place] [address] Dr. Orlando Saldivar SED RATE [facility] 2021 SED RATE 11 mm/hr Normal <=20 [facility] Comment on above: Performed By: #### S EDR #### [facility] [address] [place] [address] Dr. Orlando Saldivar Complete Blood Count with Au to Diffon 06-13-2021 Basophils (Bld) [#/Vol] 0.05 10*3/uL Normal 0.00-0.20 [facility] Manager Package Comment on above: Performed By: #### C BCAD #### [facility] [address] [place], [place] [id number] Basophils/100 WBC (Bld) 0.4 % Normal [facility] Manager Package Comment on above: Performed By: #### C BCAD #### [facility] [address] [place], [place] [id number] Eosinophils (Bld) [#/Vol] 0.43 10*3/uL Normal 0.02-0.50 [facility] Specialist Comment on above: Performed By: #### C BCAD #### [facility] [address] [place], [place] [id number] Eosinophils/100 WBC (Bld) 3.0 % Normal [facility] Specialist Comment on above: Performed By: #### C BCAD #### [facility] [address] [place], [place] [id number] Erythrocyte distribution width (RBC) [Ratio] 12.4 % Normal 11.0-15.0 [facility] Specialist Comment on above: Performed By: #### C BCAD #### [facility] [address] [place], [place] [id number] Hematocrit (Bld) [Volume fraction] 38.3 % Normal 35.0-47.0 [facility] Specialist Comment on above: Performed By: #### C BCAD #### [facility] [address] [place], [place] [id number] Hemoglobin (Bld) [Mass/Vol] 12.7 g/dL Normal 11.6-15.5 [facility] Specialist Comment on above: Performed By: #### C BCAD #### [facility] [address] [place], [place] [id number] Lymphocytes (Bld) [#/Vol] 1.8 10*3/uL Normal 0.9-3.9 [facility] Specialist Comment on above: Performed By: #### C BCAD #### [facility] [address] [place], [place] [id number] Lymphocytes/100 WBC (Bld) 12.8 % Normal [facility] Specialist Comment on above: Performed By: #### C BCAD #### [facility] [address] [place], [place] [id number] MCH (RBC) [Entitic mass] 30.0 pg Normal 27.0-33.0 [facility] Specialist Comment on above: Performed By: #### C BCAD #### [facility] [address] [place], [place] [id number] MCHC (RBC) [Mass/Vol] 33.2 g/dL Normal 32.0-36.0 [facility] Comment on above: Performed By: #### C BCAD #### [facility] [address] [place], [place] [id number] MCV (RBC) [Entitic vol] 90 fL Normal 80-100 [facility] Specialist Comment on above: Performed By: #### C BCAD #### [facility] [address] [place], [place] [id number] Monocytes (Bld) [#/Vol] 1.0 10*3/uL High 0.2-0.9 [facility] Specialist Comment on above: Performed By: #### C BCAD #### [facility] [address] [place], [place] [id number] Monocytes/100 WBC (Bld) 7.4 % Normal [facility] Specialist Comment on above: Performed By: #### C BCAD #### [facility] [address] [place], [place] [id number] Neutrophils (Bld) [#/Vol] 10.7 10*3/uL High 1.5-7.8 [facility] Specialist Comment on above: Performed By: #### C BCAD #### [facility] [address] [place], [place] [id number] Neutrophils/100 WBC (Bld) 75.9 % Normal [facility] Specialist Comment on above: Performed By: #### C BCAD #### [facility] [address] [place], [place] [id number] Platelet mean volume (Bld) [Entitic vol] 10.00 fL Normal 7.50-12.50 [facility] Specialist Comment on above: Performed By: #### C BCAD #### [facility] [address] [place], [place] [id number] Platelets (Bld) [#/Vol] 293 10*3/uL Normal 140-400 [facility] Specialist Comment on above: Performed By: #### C BCAD #### [facility] [address] [place], [place] [id number] RBC (Bld) [#/Vol] 4.24 10*6/uL Normal 3.90-5.20 [facility] Comment on above: Performed By: #### C BCAD #### [facility] [address] [place], [place] [id number] RDW-SD 40.5 fL Normal 37.0-50.0 [facility] Comment on above: Performed By: #### C BCAD #### [facility] [address] [place], [place] [id number] WBC (Bld) [#/Vol] 14.1 10*3/uL High 3.8-11.0 [facility] Comment on above: Performed By: #### C BCAD #### [facility] [address] [place], [place] [id number] ZINC SERUM OR PLASMAon 05-03 Zinc, Plasma or Serum 74 ug/dL Normal 44-115 [facility] Comment on above: Result Comment: Dete ction Limit = 5 Performed By: #### Z inc #### [facility] [address] [place] [address] Dr. Orlando Saldivar TRANSFERRINon 05-01-2021 Transferrin [Mass/Vol] 194 mg/dL Normal 192-364 [facility] Comment on above: Performed By: #### T RANSFR #### [facility] [address] [place] [address] Dr. Orlando Saldivar CBC AUTO DIFFon 04-30-2021 BASO # 0.1 103/ul Normal 0.0-0.1 [facility] Comment on above: Performed By: #### C BC #### [facility] [address] [place] [address] Dr. Orlando Saldivar Basophils/100 WBC (Bld) 0.4 % Normal 0.2-2.[address] [facility] Comment on above: Performed By: #### C BC #### [facility] [address] [place] [address] Dr. Orlando Saldivar EO # 0.2 103/ul Normal 0.0-0.7 [facility] Comment on above: Performed By: #### C BC #### [facility] [address] [place] [address] Dr. Orlando Saldivar Eosinophils/100 WBC (Bld) 1.6 % Normal 0.9-7.0 [facility] Comment on above: Performed By: #### C BC #### [facility] [address] [place] [address] Dr. Orlando Saldivar Erythrocyte distribution width (RBC) [Ratio] 13.1 % Normal 11.0-15.0 [facility] Comment on above: Performed By: #### C BC #### [facility] [address] [place] [address] Dr. Orlando Saldivar Hematocrit (Bld) [Volume fraction] 40.1 % Normal 36.0-48.0 [facility] Comment on above: Performed By: #### C BC #### [facility] [address] [place] [address] Dr. Orlando Saldivar Hemoglobin (Bld) [Mass/Vol] 13.3 g/dL Normal 12.0-16.0 [facility] Comment on above: Performed By: #### C BC #### [facility] [address] [place] [address] Dr. Orlando Saldviar IG # 0.06 10e3/ul Critically high 0.00-0.03 [facility] Comment on above: Performed By: #### C BC #### [facility] [address] [place] [address] Dr. Orlando Saldivar IG % 0.5 % Normal 0.0-0.5 [facility] Comment on above: Performed By: #### C BC #### [facility] [address] [place] [address] Dr. Orlando Saldivar LYMPH # 1.8 103/ul Normal 1.2-3.[address] [facility] Comment on above: Performed By: #### C BC #### [facility] [address] [place] [address] Dr. Orlando Saldivar Lymphocytes/100 WBC (Bld) 15.0 % Critically low 20.5-60.0 [facility] Comment on above: Performed By: #### C BC #### [facility] [address] [place] [address] Dr. Orlando Saldivar MANUAL DIFF REQ NO Normal [facility] Comment on above: Performed By: #### C BC #### [facility] [address] [place] [address] Dr. Orlando Saldivar MCH (RBC) [Entitic mass] 29.8 pg Normal 26.7-34.0 [facility] Comment on above: Performed By: #### C BC #### [facility] [address] [place] [address] Dr. Orlando Saldivar MCHC (RBC) [Mass/Vol] 33.2 g/dL Normal 29.9-35.2 [facility] Comment on above: Performed By: #### C BC #### [facility] [address] [place] [address] Dr. Orlando Saldivar MCV (RBC) [Entitic vol] 89.7 fL Normal 81.0-99.0 [facility] Comment on above: Performed By: #### C BC #### [facility] [address] [place] [address] Dr. Orlando Saldivar MONO # 0.7 103/ul Normal 0.3-0.[address] [facility] Comment on above: Performed By: #### C BC #### [facility] [address] [place] [address] Dr. Orlando Saldivar Monocytes/100 WBC (Bld) 6.0 % Normal 1.7-12.[address] [facility] Comment on above: Performed By: #### C BC #### [facility] [address] [place] [address] Dr. Orlando Saldivar NEUT # 9.4 103/ul Critically high 1.4-6.[address] [facility] Comment on above: Performed By: #### C BC #### [facility] [address] [place] [address] Dr. Orlando Saldivar Neutrophils/100 WBC (Bld) 76.5 % Critically high 43.0-75.0 [facility] Comment on above: Performed By: #### C BC #### [facility] [address] [place] [address] Dr. Orlando Saldivar Platelet mean volume (Bld) [Entitic vol] 9.7 fL Normal 9.5-13.5 [facility] Comment on above: Performed By: #### C BC #### [facility] [address] [place] [address] Dr. Orlando Saldivar PLT 211 103/ul Normal 150-[address] [facility] Comment on above: Performed By: #### C BC #### [facility] [address] [place] [address] Dr. Orlando Saldivar RBC 4.47 106/ul Normal 4.20-5.[address] [facility] Comment on above: Performed By: #### C BC #### [facility] [address] [place] [address] Dr. Orlando Saldivar WBC 12.3 103/ul Critically high 4.0-11.0 [facility] Comment on above: Performed By: #### C BC #### [facility] [address] [place] [address] Dr. Orlando Saldivar CRPon 04-30-2021 CRP [Mass/Vol] mg/L Normal <=1.0 [facility] Comment on above: Performed By: #### C MP, CRP #### [facility] [address] [place] [address] Dr. Orlando Saldivar FERRITINon 04-30-2021 Ferritin [Mass/Vol] 118.0 ng/mL Normal 6.2-137.0 [facility] Comment on above: Performed By: #### T RANSFR #### [facility] [address] [place] [address] Dr. Orlando Saldivar IRON AND TIBCon 04-30-2021 % SATURATION 26.3 % Normal [facility] Comment on above: Performed By: #### F ERR, FETIBC, VITB12 #### [facility] [address] [place] [address] Dr. Orlando Saldivar Iron [Mass/Vol] 59.0 ug/dL Normal 37.0-170.[address] [facility] Comment on above: Performed By: #### F ERR, FETIBC, VITB12 #### [facility] [address] [address] [address] Orlando Saldivar TIBC DIRECT 224.0 ug/dL Critically low 261.0-497.0 [facility] Comment on above: Performed By: #### F ERR, FETIBC, VITB12 #### [facility] [address] [place] [address] Dr. Orlando Saldivar PROF 14(COMP METB)on 022 Albumin [Mass/Vol] 3.7 g/dL Normal 3.5-5.0 [facility] Comment on above: Performed By: #### C MP, CRP #### [facility] [address] [place] [address] Dr. Orlando Saldivar Albumin/Globulin [Mass ratio] 1.3 {ratio} Normal [facility] Comment on above: Performed By: #### C MP, CRP #### [facility] [address] [place] [address] Dr. Orlando Saldivar ALP [Catalytic activity/Vol] 66 U/L Normal 38-126 [facility] Comment on above: Performed By: #### C MP, CRP #### [facility] [address] [place] [address] Dr. Orlando Saldivar ALT [Catalytic activity/Vol] 9 U/L Normal 9-52 [facility] Comment on above: Performed By: #### C MP, CRP #### [facility] [address] [place] [address] Dr. Orlando Saldivar Anion gap [Moles/Vol] 12.4 mmol/L Normal [facility] Comment on above: Performed By: #### C MP, CRP #### [facility] [address] [place] [address] Dr. Orlando Saldivar AST [Catalytic activity/Vol] 10 U/L Critically low 14-36 [facility] Comment on above: Performed By: #### C MP, CRP #### [facility] [address] [place] [address] Dr. Orlando Saldivar Bilirubin [Mass/Vol] 0.4 mg/dL Normal 0.2-1.3 [facility] Comment on above: Performed By: #### C MP, CRP #### [facility] [address] [address] [address] Orlando Saldivar Calcium [Mass/Vol] 9.0 mg/dL Normal 8.4-10.2 [facility] Comment on above: Performed By: #### C MP, CRP #### [facility] [address] [address] [address] Orlando Saldivar Chloride [Moles/Vol] 103 mmol/L Normal 98-107 [facility] Comment on above: Performed By: #### C MP, CRP #### [facility] [address] [address] [address] Orlando Saldivar CO2 [Moles/Vol] 26.0 mmol/L Normal 22.0-30.0 [facility] Comment on above: Performed By: #### C MP, CRP #### [facility] [address] [place] [address] Dr. Orlando Saldivar Creatinine [Mass/Vol] 0.92 mg/dL Normal 0.52-1.04 [facility] Comment on above: Performed By: #### C MP, CRP #### [facility] [address] [address] [address] Orlando Saldivar EGFR-AF GRENADIAN >60 Normal >=60 [facility] Comment on above: Performed By: #### C MP, CRP #### [facility] [address] [place] [address] Dr. Orlando Saldivar EGFR-NON AF GRENADIAN >60 Normal >=60 [facility] Comment on above: Performed By: #### C MP, CRP #### [facility] [address] [address] [address] Orlando Saldivar Globulin (S) [Mass/Vol] 2.9 g/dL Normal [facility] Comment on above: Performed By: #### C MP, CRP #### [facility] [address] [address] [address] Orlando Saldivar Glucose [Mass/Vol] 119 mg/dL Critically high 74-106 [facility] Comment on above: Performed By: #### C MP, CRP #### [facility] [address] [place] [address] Dr. Orlando Saldivar Potassium [Moles/Vol] 3.4 mmol/L Normal 3.4-5.0 [facility] Comment on above: Performed By: #### C MP, CRP #### [facility] [address] [place] [address] Dr. Orlando Saldivar Protein [Mass/Vol] 6.6 g/dL Normal 6.1-8.2 [facility] Comment on above: Performed By: #### C MP, CRP #### [facility] [address] [place] [address] Dr. Orlando Saldivar Sodium [Moles/Vol] 138 mmol/L Normal 137-145 [facility] Comment on above: Performed By: #### C MP, CRP #### [facility] [address] [place] [address] Dr. Orlando Saldivar Urea nitrogen [Mass/Vol] 8.0 mg/dL Normal 6.4-19.3 [facility] Comment on above: Performed By: #### C MP, CRP #### [facility] [address] [place] [address] Dr. Orlando Saldivar Urea nitrogen/Creatinine [Mass ratio] 8.7 mg/mg Normal [facility] Comment on above: Performed By: #### C MP, CRP #### [facility] [address] [place] [address] Dr. Orlando Saldivar SED RATE WESTERGRENon 2021 SED RATE 7 mm/hr Normal <=[address] [facility] Comment on above: Performed By: #### S EDR #### [facility] [address] [place] [address] Dr. Orlando Saldivar VITAMIN B12on 04-30-2021 Cobalamin (Vitamin B12) [Mass/Vol] 812.0 pg/mL Normal 239.0-931.0 [facility] Comment on above: Performed By: #### T RANSFR #### [facility] [address] [place] [address] Dr. Orlando Saldivar Lab Reportson 01-17-2020 Lab Reports [id number] D:127 [facility] Consultation Noteon 01-13-20 Consultation Note [id number] :127 [facility] Auth for Release of Medical Recordson 12-09-2019 Auth for Release of Medical Records [id number]#1.00CD :127 [facility] Consultation Noteon 11-24-19 Consultation Note [id number]#1.00C D:127 [facility] Consultation Noteon 11-22-19 Consultation Note [id number]#1.00C D:127 [facility] Vital Signs Date Time Vital Sign Value Performing Clinician Facility 01-19-2025 11:03-0400 Body temperature 98.01 [degF] Clifford Rodas MD Work Phone: [facility] 01-19-2025 11:03-0400 Diastolic blood pressure 66 mm[Hg] Clifford Rodas MD Work Phone: [facility] 01-19-2025 11:03-0400 Heart rate 62 /min Clifford Rodas MD Work Phone: [facility] 01-19-2025 11:03-0400 Respiratory rate 16 /min Clifford Rodas MD Work Phone: [facility] 01-19-2025 11:03-0400 SaO2% (BldA) [Mass fraction] 100 % Clifford Rodas MD Work Phone: [facility] 01-19-2025 11:03-0400 Systolic blood pressure 110 mm[Hg] Clifford Rodas MD Work Phone: [facility] 01-17-2025 10:32-0400 Body height 160 cm Clifford Rodas MD Work Phone: [facility] 01-17-2025 10:32-0400 Body mass index (BMI) [Ratio] 26.55 kg/m2 Clifford Rodas MD Work Phone: [facility] 01-17-2025 10:32-0400 Body weight 67.99 kg Clifford Rodas MD Work Phone: [phone])210-553260 [place] [address] 12-26-2024 11:04-0400 Body height 160 cm Clifford Rodas MD Work Phone: 6(923)636-078960 [place] [address] Comment on above: w/o shoes 12-26-2024 11:04-0400 Body mass index (BMI) [Ratio] 26.96 kg/m2 Clifford Rodas MD Work Phone: 7(755)228-540960 [place] [address] 12-26-2024 11:04-0400 Body temperature 98.2 [degF] Clifford Rodas MD Work Phone: 8(809)365-345460 [place] [address] 12-26-2024 11:04-0400 Body weight 69.04 kg Clifford Rodas MD Work Phone: 5(887)167-525760 [place] [address] Comment on above: w/o shoes 12-26-2024 11:04-0400 Diastolic blood pressure 71 mm[Hg] Clifford Rodas MD Work Phone: 9(396)048-667060 [place] [address] 12-26-2024 11:04-0400 Heart rate 67 /min Clifford Rodas MD Work Phone: 4(101)286-485360 [place] [address] 12-26-2024 11:04-0400 Respiratory rate 16 /min Clifford Rodas MD Work Phone: 9(926)233-952660 [place] [address] 12-26-2024 11:04-0400 SaO2% (BldA) [Mass fraction] 98 % Clifford Rodas MD Work Phone: 5(297)116-014260 [place] [address] Comment on above: room air 12-26-2024 11:04-0400 Systolic blood pressure 104 mm[Hg] Clifford Rodas MD Work Phone: [facility] 11-02-2024 18:42-0400 Diastolic blood pressure 77 mm[Hg] Clifford Rodas MD Work Phone: [facility] 11-02-2024 18:42-0400 Heart rate 66 /min Clifford Rodas MD Work Phone: [facility] 11-02-2024 18:42-0400 Respiratory rate 16 /min Clifford Rodas MD Work Phone: [facility] 11-02-2024 18:42-0400 SaO2% (BldA) [Mass fraction] 99 % Clifford Rodas MD Work Phone: [facility] 11-02-2024 18:42-0400 Systolic blood pressure 106 mm[Hg] Clifford Rodas MD Work Phone: [phone])092-287648 [address] 11-02-2024 18:15-0400 Body temperature 97.59 [degF] Clifford Rodas MD Work Phone: 4(495)309-902060 [place] [address] 11-02-2024 14:41-0400 Body height 160 cm Clifford Rodas MD Work Phone: 4(693)352-633460 [place] [address] 11-02-2024 14:41-0400 Body mass index (BMI) [Ratio] 27.62 kg/m2 Clifford Rodas MD Work Phone: [facility] 11-02-2024 14:41-0400 Body weight 70.72 kg Clifford Rodas MD Work Phone: 9(941)695-642460 [place] [address] 10-17-2024 10:30-0400 Body height 161 cm Clifford Rodas MD Work Phone: 2(884)[phone] [place] [address] Comment on above: w/o shoes 10-17-2024 10:30-0400 Body mass index (BMI) [Ratio] 28.63 kg/m2 Clifford Rodas MD Work Phone: [facility] 10-17-2024 10:30-0400 Body temperature 98.29 [degF] Clifford Rodas MD Work Phone: [facility] 10-17-2024 10:30-0400 Body weight 74.21 kg Clifford Rodas MD Work Phone: [facility] Comment on above: w/o shoes 10-17-2024 10:30-0400 Diastolic blood pressure 63 mm[Hg] Clifford Rodas MD Work Phone: [facility] 10-17-2024 10:30-0400 Heart rate 75 /min Clifford Rodas MD Work Phone: [facility] 10-17-2024 10:30-0400 Respiratory rate 16 /min Clifford Rodas MD Work Phone: [facility] 10-17-2024 10:30-0400 SaO2% (BldA) [Mass fraction] 100 % Clifford Rodas MD Work Phone: [facility] Comment on above: room air 10-17-2024 10:30-0400 Systolic blood pressure 111 mm[Hg] Clifford Rodas MD Work Phone: [facility] 09-26-2024 16:04-0400 Body mass index (BMI) [Ratio] 29.23 kg/m2 Serene Alfred CENTRAL SUPPLY CLERK Work Phone: [facility] 09-26-2024 16:04-0400 Body temperature 97.5 [degF] Serene Alfred CENTRAL SUPPLY CLERK Work Phone: [facility] 09-26-2024 16:04-0400 Body weight 74.84 kg Serene Alfred CENTRAL SUPPLY CLERK Work Phone: [facility] 09-26-2024 16:04-0400 Diastolic blood pressure 74 mm[Hg] Serene Paulk CENTRAL SUPPLY CLERK Work Phone: [facility] 09-26-2024 16:04-0400 Heart rate 92 /min Serene Paulk CENTRAL SUPPLY CLERK Work Phone: [facility] 09-26-2024 16:04-0400 SaO2% (BldA) [Mass fraction] 95 % Serene Paulk CENTRAL SUPPLY CLERK Work Phone: [facility] 09-26-2024 16:04-0400 Systolic blood pressure 104 mm[Hg] Serene Paulk CENTRAL SUPPLY CLERK Work Phone: [facility] 09-22-2024 14:05-0400 Body height 160 cm Milind Fitch CAN 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 Work Phone: [facility] 09-22-2024 14:05-0400 Body mass index (BMI) [Ratio] 64.59 kg/m2 Milind Fitch CAN 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 Work Phone: [facility] 09-22-2024 14:05-0400 Body weight 165.38 kg Milind Fitch CAN 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 Work Phone: [facility] 09-22-2024 14:05-0400 Diastolic blood pressure 78 mm[Hg] Milind Fitch CAN 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 Work Phone: [facility] 09-22-2024 14:05-0400 Heart rate 74 /min Milind Fitch CAN 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 Work Phone: [facility] 09-22-2024 14:05-0400 Respiratory rate 21 /min Milind Fitch CAN 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 Work Phone: [facility] 09-22-2024 14:05-0400 SaO2% (BldA) [Mass fraction] 98 % Milind Fitch CAN 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 Work Phone: [facility] 09-22-2024 14:05-0400 Systolic blood pressure 118 mm[Hg] Milind Fitch CAN 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 Work Phone: [facility] 09-06-2024 14:55-0400 Heart rate 78 /min Tu Dalton MD Work Phone: [facility] 09-06-2024 14:55-0400 Respiratory rate 46 /min Tu Dalton MD Work Phone: [facility] 09-06-2024 14:55-0400 SaO2% (BldA) [Mass fraction] 99 % Tu Dalton MD Work Phone: [facility] 09-06-2024 14:50-0400 Diastolic blood pressure 72 mm[Hg] Tu Dalton MD Work Phone: [facility] 09-06-2024 14:50-0400 Systolic blood pressure 106 mm[Hg] Tu Dalton MD Work Phone: [facility] 09-06-2024 14:14-0400 Body temperature 97.7 [degF] Tu Dalton MD Work Phone: [facility] 09-06-2024 12:35-0400 Body height 160 cm Tu Dalton MD Work Phone: [facility] 09-06-2024 12:35-0400 Body mass index (BMI) [Ratio] 29.58 kg/m2 Tu Dalton MD Work Phone: [facility] 09-06-2024 12:35-0400 Body weight 75.75 kg Tu Dalton MD Work Phone: [facility] 08-01-2024 17:40-0400 Body height 160 cm Katie Aceves NP Work Phone: [facility] 08-01-2024 17:40-0400 Body mass index (BMI) [Ratio] 30.11 kg/m2 Katie Aceves CENTRAL SUPPLY CLERK Work Phone: [facility] 08-01-2024 17:40-0400 Body temperature 99.3 [degF] Katie Aceves CENTRAL SUPPLY CLERK Work Phone: [facility] 08-01-2024 17:40-0400 Body weight 77.11 kg Katie Aceves CENTRAL SUPPLY CLERK Work Phone: [facility] 08-01-2024 17:40-0400 Diastolic blood pressure 80 mm[Hg] Katie Aceves CENTRAL SUPPLY CLERK Work Phone: [facility] 08-01-2024 17:40-0400 Heart rate 88 /min Katie Aceves CENTRAL SUPPLY CLERK Work Phone: [facility] 08-01-2024 17:40-0400 Respiratory rate 18 /min Katie Aceves CENTRAL SUPPLY CLERK Work Phone: [facility] 08-01-2024 17:40-0400 SaO2% (BldA) [Mass fraction] 98 % Katie Aceves CENTRAL SUPPLY CLERK Work Phone: [facility] 08-01-2024 17:40-0400 Systolic blood pressure 120 mm[Hg] Katie Aceves CENTRAL SUPPLY CLERK Work Phone: [facility] 07-15-2024 15:13-0400 Body height 160 cm Chey Aragon MD Work Phone: [facility] 07-15-2024 15:13-0400 Body mass index (BMI) [Ratio] 30.65 kg/m2 Chey Aragon MD Work Phone: [facility] 07-15-2024 15:13-0400 Body weight 78.47 kg Chey Aragon MD Work Phone: [facility] 07-15-2024 15:13-0400 Diastolic blood pressure 80 mm[Hg] Chey Aragon MD Work Phone: [facility] 07-15-2024 15:13-0400 Heart rate 100 /min Chey Aragon MD Work Phone: [facility] 07-15-2024 15:13-0400 SaO2% (BldA) [Mass fraction] 98 % Chey Aragon MD Work Phone: [facility] 07-15-2024 15:13-0400 Systolic blood pressure 108 mm[Hg] hCey Aragon MD Work Phone: [facility] 05-17-2024 15:05-0500 Body height 160 cm Katie Julianjessicaenburg CENTRAL SUPPLY CLERK Work Phone: [facility] 05-17-2024 15:05-0500 Body mass index (BMI) [Ratio] 32.06 kg/m2 Katie Hackenburg CENTRAL SUPPLY CLERK Work Phone: [facility] 05-17-2024 15:05-0500 Body temperature 100.51 [degF] Katie Hackenburg CENTRAL SUPPLY CLERK Work Phone: [facility] 05-17-2024 15:05-0500 Body weight 82.1 kg Katie Shastaenburg CENTRAL SUPPLY CLERK Work Phone: [facility] 05-17-2024 15:05-0500 Diastolic blood pressure 70 mm[Hg] Katie Hackenburg CENTRAL SUPPLY CLERK Work Phone: [facility] 05-17-2024 15:05-0500 Heart rate 101 /min Katie Hackenburg CENTRAL SUPPLY CLERK Work Phone: [facility] 05-17-2024 15:05-0500 Respiratory rate 20 /min Katie Hackenburg CENTRAL SUPPLY CLERK Work Phone: [facility] 05-17-2024 15:05-0500 SaO2% (BldA) [Mass fraction] 99 % Katie Hackenburg CENTRAL SUPPLY CLERK Work Phone: [facility] 05-17-2024 15:05-0500 Systolic blood pressure 110 mm[Hg] Katie Hackenburg CENTRAL SUPPLY CLERK Work Phone: [facility] 05-04-2024 10:52-0500 Body height 160.5 cm Zhou Lee MD Work Phone: [facility] 05-04-2024 10:52-0500 Body mass index (BMI) [Ratio] 32.34 kg/m2 Zhou Lee MD Work Phone: [facility] 05-04-2024 10:52-0500 Body weight 83.3 kg Zhou Lee MD Work Phone: [facility] 05-04-2024 10:52-0500 Respiratory rate 18 /min Zhou Lee MD Work Phone: [facility] 03-22-2024 15:40-0500 Body temperature 97.3 [degF] Zhou Lee MD Work Phone: [facility] 03-22-2024 15:40-0500 Diastolic blood pressure 80 mm[Hg] Zhou Lee MD Work Phone: [facility] 03-22-2024 15:40-0500 Heart rate 70 /min Zhou Lee MD Work Phone: [facility] 03-22-2024 15:40-0500 Respiratory rate 20 /min Zhou Lee MD Work Phone: [facility] 03-22-2024 15:40-0500 SaO2% (BldA) [Mass fraction] 99 % Zhou Lee MD Work Phone: [facility] 03-22-2024 15:40-0500 Systolic blood pressure 100 mm[Hg] Zhou Lee MD Work Phone: [facility] 03-22-2024 12:38-0500 Body height 160.5 cm Zhou Lee MD Work Phone: [facility] 03-22-2024 12:38-0500 Body mass index (BMI) [Ratio] 32.34 kg/m2 Zhou Lee MD Work Phone: [facility] 03-22-2024 12:38-0500 Body weight 83.3 kg Zhou Lee MD Work Phone: [facility] 02-10-2024 10:31-0400 Body mass index (BMI) [Ratio] 33.48 kg/m2 Serene Alfred CENTRAL SUPPLY CLERK Work Phone: [facility] 02-10-2024 10:31-0400 Body weight 85.73 kg Serene Alfred CENTRAL SUPPLY CLERK Work Phone: [facility] 02-10-2024 10:31-0400 Diastolic blood pressure 88 mm[Hg] Serene Alfred CENTRAL SUPPLY CLERK Work Phone: [facility] 02-10-2024 10:31-0400 Heart rate 76 /min Serene Alfred CENTRAL SUPPLY CLERK Work Phone: [facility] 02-10-2024 10:31-0400 Systolic blood pressure 110 mm[Hg] Serene Alfred CENTRAL SUPPLY CLERK Work Phone: [facility] 01-27-2024 09:50-0400 Body height 160 cm Serene Alfred CENTRAL SUPPLY CLERK Work Phone: [facility] 01-27-2024 09:50-0400 Body mass index (BMI) [Ratio] 34.19 kg/m2 Serene Alfred CENTRAL SUPPLY CLERK Work Phone: [facility] 01-27-2024 09:50-0400 Body temperature 97.39 [degF] Serene Alfred CENTRAL SUPPLY CLERK Work Phone: [facility] 01-27-2024 09:50-0400 Body weight 87.54 kg Serene Alfred CENTRAL SUPPLY CLERK Work Phone: [facility] 01-27-2024 09:50-0400 Diastolic blood pressure 70 mm[Hg] Serene Alfred CENTRAL SUPPLY CLERK Work Phone: [facility] 01-27-2024 09:50-0400 Systolic blood pressure 116 mm[Hg] Serene Alfred CENTRAL SUPPLY CLERK Work Phone: [facility] 11-18-2023 11:15-0400 Diastolic blood pressure 66 mm[Hg] Sharath Lambert MD Work Phone: [facility] 11-18-2023 11:15-0400 Heart rate 68 /min Sharath Lambert MD Work Phone: [facility] 11-18-2023 11:15-0400 Respiratory rate 22 /min Sharath Lambert MD Work Phone: [facility] 11-18-2023 11:15-0400 SaO2% (BldA) [Mass fraction] 100 % Sharath Lambert MD Work Phone: [facility] 11-18-2023 11:15-0400 Systolic blood pressure 103 mm[Hg] Sharath Lambert MD Work Phone: [facility] 11-18-2023 10:53-0400 Body temperature 97.7 [degF] Sharath Lambert MD Work Phone: [facility] 11-18-2023 09:53-0400 Body height 160 cm Sharath Lambert MD Work Phone: [facility] 11-18-2023 09:53-0400 Body mass index (BMI) [Ratio] 32.97 kg/m2 Sharath Lambert MD Work Phone: [facility] 11-18-2023 09:53-0400 Body weight 84.41 kg Sharath Lambert MD Work Phone: [facility] 08-06-2023 11:43-0400 Body height 160 cm Christine Mckeon MD Work Phone: [facility] 08-06-2023 11:43-0400 Body mass index (BMI) [Ratio] 37.91 kg/m2 Christine Mckeon MD Work Phone: [facility] 08-06-2023 11:43-0400 Body weight 97.07 kg Christine Mckeon MD Work Phone: [facility] 08-06-2023 11:43-0400 Diastolic blood pressure 76 mm[Hg] Christine Mckeon MD Work Phone: [facility] 08-06-2023 11:43-0400 Heart rate 101 /min Christine Mckeon MD Work Phone: [facility] 08-06-2023 11:43-0400 SaO2% (BldA) [Mass fraction] 98 % Christine Mckeon MD Work Phone: [facility] 08-06-2023 11:43-0400 Systolic blood pressure 102 mm[Hg] Christine Mckeon MD Work Phone: [facility] 08-06-2023 09:34-0400 Body height 160 cm Teresa Gerber CAN 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 Work Phone: [facility] 08-06-2023 09:34-0400 Body mass index (BMI) [Ratio] 37.98 kg/m2 Teresa Gerber CAN 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 Work Phone: [facility] 08-06-2023 09:34-0400 Body weight 97.25 kg Teresa Gerber CAN 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 Work Phone: [facility] 08-06-2023 09:34-0400 Diastolic blood pressure 76 mm[Hg] Teresa Gerber CAN 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 Work Phone: [facility] 08-06-2023 09:34-0400 Heart rate 75 /min Teresa Gerber CAN 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 Work Phone: [facility] 08-06-2023 09:34-0400 SaO2% (BldA) [Mass fraction] 98 % Teresa Gerber CAN 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 Work Phone: [facility] 08-06-2023 09:34-0400 Systolic blood pressure 102 mm[Hg] Teresa Gerber CAN 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 Work Phone: [facility] 05-26-2023 17:17-0500 Body height 160 cm Rubia Hernandez CENTRAL SUPPLY CLERK Work Phone: [facility] 05-26-2023 17:17-0500 Body mass index (BMI) [Ratio] 34.97 kg/m2 Rubia Hernandez CENTRAL SUPPLY CLERK Work Phone: [facility] 05-26-2023 17:17-0500 Body weight 89.54 kg Rubia Hernandez CENTRAL SUPPLY CLERK Work Phone: [facility] 05-26-2023 17:17-0500 Diastolic blood pressure 60 mm[Hg] Rubia Hernandez CENTRAL SUPPLY CLERK Work Phone: [facility] 05-26-2023 17:17-0500 Heart rate 104 /min Rubia Hernandez CENTRAL SUPPLY CLERK Work Phone: [facility] 05-26-2023 17:17-0500 SaO2% (BldA) [Mass fraction] 99 % Rubia Hernandez CENTRAL SUPPLY CLERK Work Phone: [facility] 05-26-2023 17:17-0500 Systolic blood pressure 110 mm[Hg] Rubia Hernandez CENTRAL SUPPLY CLERK Work Phone: [facility] 04-24-2023 13:59-0500 Body height 160 cm Ruchi Carmona MD Work Phone: [facility] 04-24-2023 13:59-0500 Diastolic blood pressure 68 mm[Hg] Ruchi Carmona MD Work Phone: [facility] 04-24-2023 13:59-0500 Heart rate 81 /min Ruchi Carmona MD Work Phone: [facility] 04-24-2023 13:59-0500 Systolic blood pressure 106 mm[Hg] Ruchi Carmona MD Work Phone: [facility] 02-25-2023 12:32-0500 Body height 160 cm Kye Solis MD Work Phone: [facility] 02-25-2023 12:32-0500 Body mass index (BMI) [Ratio] 32.06 kg/m2 Kye Solis MD Work Phone: [facility] 02-25-2023 12:32-0500 Body weight 82.1 kg Kye Solis MD Work Phone: [facility] 02-25-2023 12:32-0500 Diastolic blood pressure 70 mm[Hg] Kye Solis MD Work Phone: [facility] 02-25-2023 12:32-0500 Heart rate 74 /min Kye Solis MD Work Phone: [facility] 02-25-2023 12:32-0500 SaO2% (BldA) [Mass fraction] 97 % Kye Solis MD Work Phone: [facility] Comment on above: 02-25-2023 12:32-0500 Systolic blood pressure 118 mm[Hg] Kye Solis MD Work Phone: [facility] 01-26-2023 10:50-0400 Body height 161.1 cm Enmanuel Osuna MD Work Phone: [facility] 01-26-2023 10:50-0400 Body mass index (BMI) [Ratio] 31.25 kg/m2 Enmanuel Osuna MD Work Phone: [facility] 01-26-2023 10:50-0400 Body temperature 98.1 [degF] Enmanuel Osuna MD Work Phone: [address]16-2023 10:50-0400 Body weight 81.1 kg Enmanuel Osuna MD Work Phone: [facility] 01-26-2023 10:50-0400 Diastolic blood pressure 65 mm[Hg] Enmanuel Osuna MD Work Phone: [facility] 01-26-2023 10:50-0400 Heart rate 73 /min Enmanuel Osuna MD Work Phone: [facility] 01-26-2023 10:50-0400 Respiratory rate 20 /min Enmanuel Osuna MD Work Phone: [facility] 01-26-2023 10:50-0400 Systolic blood pressure 100 mm[Hg] Enmanuel Osuna MD Work Phone: [facility] 01-26-2023 09:51-0400 Body height 161.1 cm Zhou Lee MD Work Phone: [facility] 01-26-2023 09:51-0400 Body mass index (BMI) [Ratio] 31.25 kg/m2 Zhou Lee MD Work Phone: [facility] 01-26-2023 09:51-0400 Body weight 81.1 kg Zhou Lee MD Work Phone: [facility] 01-26-2023 09:51-0400 Respiratory rate 20 /min Zhou Lee MD Work Phone: [facility] 01-26-2023 08:15-0400 Body height 161.1 cm Ioana Otero MD Work Phone: [facility] 01-26-2023 08:15-0400 Body mass index (BMI) [Ratio] 31.25 kg/m2 Ioana Otero MD Work Phone: [facility] 01-26-2023 08:15-0400 Body temperature 98.2 [degF] Ioana Otero MD Work Phone: [facility] 01-26-2023 08:15-0400 Body weight 81.1 kg Ioana Otero MD Work Phone: [facility] 01-26-2023 08:15-0400 Diastolic blood pressure 77 mm[Hg] Ioana Otero MD Work Phone: [facility] 01-26-2023 08:15-0400 Heart rate 74 /min Ioana Otero MD Work Phone: [facility] 01-26-2023 08:15-0400 Systolic blood pressure 110 mm[Hg] Ioana Otero MD Work Phone: [facility] 12-26-2022 12:00-0400 Body weight 81.6 kg Connie Mac RN [facility] 05-05-2022 11:04-0500 Body height 162 cm Zhou Lee MD Work Phone: [facility] Comment on above: prior reading 05-05-2022 11:04-0500 Body mass index (BMI) [Ratio] 31.09 kg/m2 Zhou Lee MD Work Phone: [facility] 05-05-2022 11:04-0500 Body weight 81.6 kg Zhou Lee MD Work Phone: [facility] 05-05-2022 11:04-0500 Heart rate 84 /min Zhou Lee MD Work Phone: [facility] 08-13-2021 18:15-0400 Diastolic blood pressure 76 mm[Hg] Jessie Lenz MD Work Phone: [facility] 08-13-2021 18:15-0400 Heart rate 86 /min Jessie Lenz MD Work Phone: [facility] 08-13-2021 18:15-0400 Systolic blood pressure 116 mm[Hg] Jessie Lenz MD Work Phone: [facility] 08-13-2021 16:15-0400 Body temperature 99.1 [degF] Jessie Lenz MD Work Phone: [facility] 08-13-2021 11:30-0400 Respiratory rate 16 /min Jessie Lenz MD Work Phone: [employer] 08-13-2021 11:30-0400 SaO2% (BldA) [Mass fraction] 99 % Jessie Lenz MD Work Phone: [employer] 08-13-2021 08:15-0400 Body height 164 cm Jessie Lenz MD Work Phone: [facility] 08-13-2021 08:15-0400 Body mass index (BMI) [Percentile] Per age and sex 95.01 % Jessie Lenz MD Work Phone: [facility] 08-13-2021 08:15-0400 Body mass index (BMI) [Ratio] 31.6 kg/m2 Jessie Lenz MD Work Phone: [facility] 08-13-2021 08:15-0400 Body weight 85 kg Jessie Lenz MD Work Phone: [facility] Encounters Encounter Date Encounter Type Care Provider Facility Start: 01-27-2025 End: 01-27-2025 B[employer] flowsheet Chey Aragon MD Work Phone: [facility] Start: 01-27-2025 End: 01-27-2025 Bamboo flowsheet Chey Aragon MD Work Phone: [facility] Start: 01-17-2025 End: 01-19-2025 Evaluation and management of inpatient Clifford Rodas MD Work Phone: [email or web address] Comment on above: Anorectal stricture Start: 01-05-2025 ambulatory CLIFFORD RODAS Facili ty:[facility] Start: 01-02-2025 End: 01-02-2025 Patient encounter procedure [facility] [address] Comment on above: Ostomy nurse consult ation (Primary Dx) Start: 01-02-2025 ambulatory CLIFFORD RODAS Facili ty:[facility] Start: 12-29-2024 End: 01-02-2025 Clinisync Result Encounter Generic External Data Provider [facility] External Department Unsolicited Start: 12-29-2024 End: 01-02-2025 Clinisync Result Encounter Generic External Data Provider [facility] External Department Unsolicited Start: 12-28-2024 End: 12-28-2024 Clinisync Result Encounter Generic External Data Provider [facility] External Department Unsolicited Start: 12-28-2024 End: 12-28-2024 Clinisync Result Encounter Generic External Data Provider [facility] External Department Unsolicited Start: 12-26-2024 End: 12-26-2024 Office outpatient visit 25 minutes Clifford Rodas MD Work Phone: [facility] Comment on above: Anorectal stricture (Primary Dx) Start: 12-26-2024 End: 12-26-2024 Clinical Support Encounter Clifford Rodas MD Work Phone: [facility] Comment on above: Anorectal stricture (Primary Dx) Start: 12-09-2024 End: 12-09-2024 Clinisync Result Encounter Generic External Data Provider [facility] External Department Unsolicited Start: 12-09-2024 End: 12-09-2024 Clinisync Result Encounter Generic External Data Provider [facility] External Department Unsolicited Start: 12-09-2024 ambulatory CHEY PILLAI Facility:[facility] Start: 11-14-2024 ambulatory CHEY PILLAI Facility:[facility] Start: 11-02-2024 End: 11-02-2024 ambulatory CLIFFORD RODAS Facility:[facility] Start: 11-02-2024 End: 11-02-2024 Subsequent hospital visit by physician Clifford Rodas MD Work Phone: [facility] Comment on above: Crohn's disease of b oth small and large intestine with complication Start: 10-31-2024 End: 11-01-2024 Clinisync Result Encounter Generic External Data Provider [facility] External Department Unsolicited Start: 10-31-2024 End: 11-01-2024 Clinisync Result Encounter Generic External Data Provider [facility] External Department Unsolicited Start: 10-26-2024 End: 10-28-2024 ambulatory CLIFFORDLIV RODAS [facility] Start: 10-26-2024 End: 10-28-2024 Subsequent hospital visit by physician Ct Rm [address] [facility] [address] Scan Comment on above: Crohn's disease of b ot small and large intestine with complication (HCC) Start: 10-26-2024 ambulatory CLIFFORD Joseph NOVA Hollins ty:[facility] Start: 10-17-2024 End: 10-17-2024 Office consultation new/estab patient 80 min Clifford Rodas MD Work Phone: [facility] Comment on above: Crohn's disease of b ot small and large intestine with complication (Primary Dx) Start: 10-17-2024 ambulatory CLIFFORD F NOVA Hollins ty:[facility] Start: 09-26-2024 End: 09-26-2024 Office outpatient visit 25 minutes Serene Alfred CENTRAL SUPPLY CLERK Work Phone: [facility] Comment on above: Acute cough (Primary Dx); Acute bilateral otitis media; Acute viral bronchitis; Wheezing Start: 09-26-2024 End: 09-26-2024 ambulatory SERENE ALFRED Not Available Start: 09-22-2024 End: 09-22-2024 Office outpatient visit 15 minutes Milind GARNICA Work Phone: [facility] Comment on above: Crohn's disease of b ot small and large intestine with complication (Primary Dx) Start: 09-22-2024 ambulatory SELF SELF Facility:[facility] Start: 09-12-2024 ambulatory DARI WALTERS Facility :[facility] Start: 09-06-2024 ambulatory TU Jerome lity:[facility] Start: 09-06-2024 End: 09-06-2024 Subsequent hospital visit by physician Tu Dalton MD Work Phone: [facility] Comment on above: Arrived Start: 08-01-2024 End: 08-01-2024 Office outpatient visit 25 minutes Katie A Hackenburg CENTRAL SUPPLY CLERK Work Phone: [facility] Comment on above: Immunocompromised mireya induvanessa ([facility]) (Primary Dx); Nonintractable episodic headache, unspecified headache type; 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 Start: 08-01-2024 End: 08-01-2024 ambulatory KATIE A HACKENBURG Not Available Start: 08-01-2024 End: 08-01-2024 Bamboo flowsheet Katie A Hackenburg CENTRAL SUPPLY CLERK Work Phone: [facility] Start: 08-01-2024 End: 08-01-2024 Bamboo flowsheet Katie A Hackenburg CENTRAL SUPPLY CLERK Work Phone: [facility] Start: 07-27-2024 End: 07-27-2024 ambulatory RUBIA EMY Not Available Start: 07-20-2024 End: 07-20-2024 Orders Only Rubia Hernandez CENTRAL SUPPLY CLERK Work Phone: [facility] Comment on [...] FM Start: 07-13-2024 End: 07-13-[facility] Start: 06-22-[facility]24 ambulatory CHEY ARAGON [facility] Start: 06-06-2024 End: 06-06-2024 Clinisync Result Encounter [...] Department Unsolicited Start: 05-26-2024 ambulatory MILIND FITCH Facility:[facility] Start: 05-18-2024 End: 05-18-2024 Telephone encounter Chey Aragon MD Work Phone: [facility] Start: 05-17-2024 End: 05-17-2024 Office outpatient visit 15 minutes Katie A Hackenburg CENTRAL SUPPLY CLERK Work Phone: [facility] Comment on above: Viral URI (Primary D x); Fever, unspecified fever cause Start: 05-17-2024 End: 05-17-2024 ambulatory KATIE A HACKENBURG Not Available Start: 05-17-2024 End: 05-17-2024 Bamboo flowsheet Katie A Hackenburg CENTRAL SUPPLY CLERK Work Phone: [facility] Start: 05-17-2024 End: 05-17-2024 Bamboo flowsheet Katie A Hackenburg CENTRAL SUPPLY CLERK Work Phone: [facility] Start: 05-04-2024 ambulatory CHEY ARAGON [facility] Start: 05-04-2024 End: 05-04-2024 Office outpatient visit 15 minutes Zhou Lee MD Work Phone: [facility] Comment on above: Surgical Followup Start: 04-28-2024 End: 04-28-2024 Telephone encounter Payton Campo APRN Work Phone: [facility] Start: 03-22-2024 End: 03-22-2024 ambulatory CHEY Luba MAHESH [facility] Start: 03-22-2024 End: 03-22-2024 Subsequent hospital visit by physician Zhou Lee MD Work Phone: [facility] Start: 03-15-2024 End: 03-15-2024 Telephone encounter Zhou Lee MD Work Phone: [facility] Comment on above: Change Appointment Start: 03-03-2024 End: 03-03-2024 Telephone encounter Zhou Lee MD Work Phone: [facility] Comment on above: Schedule Procedure Start: 03-02-2024 End: 03-02-2024 ambulatory Naima Coates CPNP-PC Facility:[facility] Start: 02-29-2024 End: 02-29-2024 ambulatory CHEY Luba MAHESH [facility] Start: 02-29-2024 End: 02-29-2024 Subsequent hospital visit by physician Ct [facility] Comment on above: Chronic sinusitis, u nspecified location Start: 02-16-2024 Telephone encounter Andressa Mandujano RN [facility] Comment on above: Case Discussion Start: 02-10-2024 End: 02-10-2024 Bamboo flowsheet Serene Alfred CENTRAL SUPPLY CLERK Work Phone: [facility] Start: 02-10-2024 End: 02-10-2024 Bamboo flowsheet Serene Alfred CENTRAL SUPPLY CLERK Work Phone: [facility] Start: 02-10-2024 End: 02-10-2024 Office outpatient visit 15 minutes Serene Alfred CENTRAL SUPPLY CLERK Work Phone: [facility] Comment on above: Anxiety (Primary Dx) Start: 02-10-2024 End: 02-10-2024 ambulatory SERENE ALFRED Not Available Start: 01-27-2024 End: 01-27-2024 Bamboo flowsheet Serene Alfred CENTRAL SUPPLY CLERK Work Phone: [facility] Start: 01-27-2024 End: 01-27-2024 Martínez flowsheet Serene Alfred CENTRAL SUPPLY CLERK Work Phone: [facility] Start: 01-27-2024 End: 01-27-2024 Patient encounter status Serene Alfred CENTRAL SUPPLY CLERK Work Phone: [facility] Work Phone: Start: 01-27-2024 End: 01-27-2024 Periodic preventive med est patient 18-39 yrs Serene Alfred CENTRAL SUPPLY CLERK Work Phone: [facility] Comment on [...] Lambert MD Work Phone: [facility] Comment on above: Arrived Start: 11-09-2023 End: 11-09-2023 ambulatory CHEY ARAGON [facility] Start: 10-07-2023 End: 10-07-2023 ambulatory ALFREDO DUONG Not Available Start: 09-03-2023 End: 09-03-2023 ambulatory Alfredo Duong Facility:[facility] Start: 09-03-2023 End: 09-03-2023 ambulatory SHANTELL Duong Work Phone: [facility] Work Phone: Start: 09-03-2023 End: 09-03-2023 Departed Referred SHANTELL Duong Work Phone: [facility] Start: 08-06-2023 End: 08-06-2023 Office consultation new/estab patient 80 min Christine Mckeon MD Work Phone: [facility] Comment on above: Orbital myositis, un specified laterality (Primary Dx); Crohn's disease of small and large intestines with complication; Immunosuppressed status; Chronic pansinusitis; Pulmonary nodules; Psoriasis; Less than 8 weeks gestation of ; Left leg swelling; Psoriasis of scalp Start: 08-06-2023 End: 08-06-2023 Office outpatient visit 15 minutes Teresa Greber CAN 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 Work Phone: [facility] [place] Comment on above: Crohn's disease in r emission (Primary Dx) Start: 07-03-2023 End: 07-04-2023 [facility] Start: 06-01-2023 Orders Only Marjorie Bautista RN Matern al- Medicine at [facility] Comment on above: Maternal Crohn's dis ease affecting in second trimester ([facility]) (Primary Dx); History of chronic ulcerative colitis Start: 05-29-2023 End: 05-30-2023 [facility] Start: 05-26-2023 End: 05-26-2023 Office outpatient visit 25 minutes Rubia Hernandez NP Work Phone: [facility] Comment on above: Viral URI (Primary D x); 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); Immunodeficiency, unspecified (D84.9); 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); Crohns disease of both small and large intestine with unspecified complications (K50.819); Bilateral impacted cerumen Start: 05-26-2023 Bamboo flowsheet Rubia Hernandez CENTRAL SUPPLY CLERK Work Phone: [facility] Start: 05-26-2023 Bamboo flowsheet Rubia Hernandez CENTRAL SUPPLY CLERK Work Phone: [facility] Start: 04-27-2023 Orders Only Connie Graham [facility] rnal- Medicine at [facility] Comment on above: Maternal Crohn's dis ease affecting in second trimester (CMS-HCC) (Primary Dx) Start: 04-24-2023 End: 04-25-2023 [facility] Start: 04-24-2023 End: 04-24-2023 Office outpatient new 45 minutes Hind David Carmona MD Work Phone: Maternal- Medicine at [facility] Comment on above: Maternal Crohn's dis ease affecting in second trimester (CMS-HCC) (Primary Dx); History of chronic ulcerative colitis; 19 weeks gestation of Start: 04-16-2023 Chart abstracting Scanning Pro vider External Maternal- Medicine at [facility] Start: 04-03-2023 End: 04-03-2023 Clinical Support Encounter [facility] Ibd Nurse [facility] Comment on above: Crohn's disease of b oth small and large intestine with complication (Primary Dx) Start: 04-02-2023 Chart abstracting Scanning Pro vider External Maternal- Medicine at [facility] Start: 03-03-2023 Telephone encounter Javier Agee MD Work Phone: [facility] Comment on above: Case Discussion (Tra nsitioned [...] Lee MD Work Phone: [facility] Comment on above: Sinus Problem (F/u r ecurrent sinusitis) Start: 01-26-2023 End: 01-26-2023 Office outpatient visit 40 minutes Ioana Otero MD Work Phone: [facility] Comment on above: FOLLOW-UP Start: 01-21-2023 Telephone encounter Ioana liz MD Work Phone: [facility] Comment on above: Results Start: 01-09-2023 Telephone encounter Alison Moore RN [facility] Comment on above: Update Start: 12-23-2022 Refill Javier todd MD Work Phone: [facility] Comment on above: Refill Request Start: 12-18-2022 ambulatory Yoana alba [facility] Start: 12-18-2022 Coordination of care obey Head [facility] Comment on above: Primary Insurance: P rior Authorization Coordination for Gastroenterology Prior Authorization Start: 12-17-2022 Telephone encounter Connie Mac RN [facility] Comment on above: Coordination Of Care (Rituximab) Start: 11-21-2022 Telephone encounter Alyssa Pierre RN Hematology[facility]Oncology Clinics Comment on above: Change Appointment Start: 09-24-2022 Telephone encounter Zhou peres MD Work Phone: ENT [facility] Comment on above: Schedule Surgery Start: 09-04-2022 Documentation procedure Manjeet Lee MD Work Phone: [facility] Comment on above: Per [facility] Letter # [phone], [facility] requested clinicals be sent. Clinicals sent Start: 07-16-2022 Documentation procedure Ginna Agee MD Work Phone: [facility] Comment on above: Faxed [facility] reapplica tion to [phone]. Scanned into the chart. Start: 05-05-2022 End: 05-05-2022 Postop follow up visit related to original px Zhou Lee MD Work Phone: [facility] Comment on above: Orbital myositis, un specified laterality (Primary Dx); Chronic sinusitis, unspecified location Start: 04-08-2022 Telephone encounter Brielle Teran RN [facility] Comment on above: Surgical Followup Start: 02-06-2022 Telephone encounter iMtch Banuelos MD Work Phone: Surgery [facility] 6D Comment on above: Pre-certification Start: 11-19-2021 End: 11-19-[address] DOCTOR LIM Facility:[facility] Start: 08-13-2021 End: 08-13-2021 ambulatory JESSIE LENZ [facility] Start: 08-13-2021 End: 08-13-2021 Subsequent hospital visit by physician Jessie Lenz MD Work Phone: [facility] [facility] Start: 07-09-2021 End: 07-10-2021 ambulatory SHAKIRA ORANTES [facility] Start: 07-09-2021 End: 07-09-2021 Subsequent hospital visit by physician Otilia Sinclair Work Phone: [facility] Start: 06-27-2021 End: 06-28-[address] DOCTOR LIM Facility:[facility] Start: 04-30-2021 End: 05-01-[address] DOCTOR LIM Facility:[facility] Procedures Date Procedure Procedure Detail Performing Clinician Start: 01-19-2025 Assay of magnesium Christopher Baires MD Work Phone: Start: 01-18-2025 Assay of magnesium Christopher Baires MD Work Phone: Start: 01-17-2025 CONTINUOUS CARDIAC MONITORING STRIP Other Other Start: 01-17-2025 End: 01-17-2025 Laparoscopy surg ileostomy/jejunostomy non-tube Clifford Rodas MD Work Phone: Start: 01-17-2025 Antibody screen Clifford Rodas MD Work Phone: Start: 01-17-2025 ABORH TYPE RECONFIRMATION Alyssa Kame DO Work Phone: Start: 01-17-2025 Antibody screen MILIND W LOULOU Comment on above: Performed By: #### C RP, IRBC, CMPN #### [facility] (DEFAULT) [address] [place] [address] Start: 01-17-2025 Blood typing serologic abo Fallon Bermudez DO Work Phone: Start: 01-17-2025 Gonadotropin chorion ic qualitative Clifford Rodas MD Work Phone: Start: 12-29-2024 CALPROTECTIN, FECAL Gen anali External Data Provider Start: 12-28-2024 [employer] Gen anali External Data Provider Start: 12-09-2024 ALL CBC WITH AUTO DIFF Generic External Data Provider Start: 11-02-2024 CONTINUOUS CARDIAC MONITORING STRIP Other Other Start: 11-02-2024 CONTINUOUS CARDIAC MONITORING STRIP Other Other Start: 11-02-2024 End: 11-02-2024 Gonadotropin chorionic qualitative Clifford Rodas MD Work Phone: Start: 10-31-2024 Ct abdomen & pelvis w/contrast material Generic External Data Provider Start: 09-06-2024 Colonoscopy flx dx w /collj spec when pfrmd Milind Fitch CAN 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 Work Phone: Start: 09-06-2024 Choriogonadotropin ( test) [Presence] in Urine Jesse Baumann MD Work Phone: Start: 06-06-2024 C. DIFFICILE PCR Generi c External Data Provider Start: 06-03-2024 ALL CBC WITH AUTO DIFF Generic External Data Provider Start: 05-17-2024 STATUS COVID-19/FLU Alissa guzmanjose david Lorenzo Aceves CENTRAL SUPPLY CLERK Work Phone: Start: 03-22-2024 Choriogonadotropin ( test) [Presence] in Serum or Plasma Zhou Lee MD Work Phone: Start: 02-29-2024 Ct maxillofacial w/o contrast material Naima Coates CPNP-PC Work Phone: Start: 11-18-2023 Colonoscopy flx dx w /collj spec when pfrmd Milind Cartwrightnirmalperez CAN 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 Work Phone: Start: 11-18-2023 Choriogonadotropin ( test) [Presence] in Urine Sharath Lambert MD Work Phone: Start: 08-06-2023 Urnls dip stick/tabl et rgnt auto w/o microscopy Christine Mckeon MD Work Phone: Start: 05-26-2023 Removal impacted cer umen irrigation/lvg unilat Rubia Hernandez CENTRAL SUPPLY CLERK Work Phone: Start: 03-04-2023 CHLAMYDIA/GC BY PCR ROLDAN SWAB Not In System Ref Prov Start: 02-25-2023 Antibody screen Scannin g External Start: 02-25-2023 HIV 1&2 AB/AG SCREEN (P24 AG) Not In System Ref Prov Start: 02-25-2023 Iaad ia hepatitis b surface antigen Not In System Ref Prov Start: 02-25-2023 Syphilis test non-tr eponemal antibody qual Not In System Ref Prov Start: 02-25-2023 TYPE AND SCREEN Not In System Ref Prov Start: 07-09-2021 Blood count complete auto&auto difrntl wbc Shakira Orantes MD Work Phone: H/O: ileostomy History of ileostomy Clifford Rodas MD Work Phone: Plan of Treatment Date Care Activity Detail Author Start: 03-20-2025 End: 03-20-2025 Patient encounter procedure 03/20/2025 11:00 AM EST Office Visit [facility] [address] [place] [address] Claudia Rodriguez MD [address] [place] [phone] [facility] [place] Start: 02-24-2025 End: 02-24-2025 Patient encounter procedure 02/24/2025 2:15 PM EST Office Visit [facility] [address] [address] Marilou Ortiz MD 2[address] [facility] [address] [place], [place] [phone] Return in about 6 months (around 02/19/2025). [facility] Comment on above: Return in about 6 months (around 02/20/20). Start: 02-20-2025 End: 02-20-2025 Patient encounter procedure 02/20/2025 11:00 AM EST Office Visit Division of Colon & Rectal Surgery [address] [facility] [address] [place] [phone] Yevtte Mar, CAN CRIMPER-[facility] [address] [facility] [address] [place] [phone] Division of Colon & Rectal Surgery Start: 01-27-2025 End: 01-27-2025 Patient encounter procedure 01/27/2025 9:30 AM EDT Office Visit [facility] Medicine [address] [place] [address] Chey Aragon MD [address] [facility] [place] [address] Arrived [facility] Comment on above: Arrived Start: 01-17-2025 End: 01-17-2025 Laparoscopy surg ileostomy/jejunostomy non-tube ILEOSTOMY JEJUNOSTOMY NON-TUBE LAPAROSCOPIC Anorectal stricture Crohn's disease of both small and large intestine with complication 01/17/2025 12:00 PM EDT [facility] Start: 01-17-2025 End: 01-17-2025 Evaluation and management of inpatient [facility] Comment on above: Anorectal stricture ILEOSTOMY JEJUNOSTOM Y NON-TUBE LAPAROSCOPIC Start: 01-05-2025 End: 01-05-2025 Anesthesia consultation [facility] Start: 01-02-2025 End: 01-02-2025 Clinical Support Encounter 01/02/2025 1:00 PM EDT Clinical Support Encounter [facility] [address] [facility] [address] [place] [phone] [facility] [place] Start: 12-26-2024 End: 12-26-2024 Patient encounter procedure 12/26/2024 10:30 AM EDT Office Visit Division of Colon & Rectal Surgery [address] [phone] Yvette Mar CAN 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 [address] [place] [address] Division of Colon & Rectal Surgery Start: 12-12-2024 COVID-19 VACCINE ( season) COVID-19 VACCINE ( season) [facility] Start: 12-12-2024 Influenza vaccination [facility] Start: 12-09-2024 End: 12-09-2024 Telemedicine consultation with patient 12/09/2024 10:00 AM EDT Telemedicine [facility] [address] [place] [address] [address] [place], [place] [phone] Milind Fitch, CAN 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 [address] [place] [phone] [facility] Start: 11-11-2024 Influenza vaccination Flu vaccine (#1) [facility] Start: 11-08-2024 End: 11-08-2024 Admission to same day surgery center 11/08/2024 11:15 AM EDT - 11/08/2024 12:45 PM EDT Surgery [facility] [address] [place] [address] Clifford Rodas MD [address] [place] [address] EXAM UNDER ANESTHESIA ANORECTAL [facility] Comment [...] Encounter [facility] [address] [place] [address] Clifford Rodas MD [address] [place] [address] Crohn's disease of both small and large intestine with complication [facility] Comment on above: Crohn's disease of both small and large intestine with complication Start: 10-26-2024 End: 10-26-2024 Anesthesia consultation 10/26/2024 3:00 PM EDT Pre-Operative Nurse Assessment [facility] [address] [place] [phone] Clifford Rodas MD [address] [place] [address] [facility] Start: 10-24-2024 End: 10-17-[address] ENTEROGRAPHY Imaging Routine Crohn's disease of both small and large intestine with complication Expected: 10/24/2024, Expires: 10/17/2025 [facility] Comment on above: Expected: 10/24/2024, Expires: Start: 10-17-2024 End: 10-17-2025 Choriogonadotropin ( test) [Presence] in Urine HCG QUALITATIVE, URINE Fluids Routine Crohn's disease of both small and large intestine with complication Expected: 10/17/2024, Expires: 10/17/2025 [facility] Comment on above: Expected: 10/17/2024, Expires: Start: 10-17-2024 End: 10-17-2024 Patient encounter procedure 10/17/2024 10:30 AM EDT Office Visit Division of Colon & Rectal Surgery [address] [facility] [address] [place] [address] Clifford Rodas MD [address] [place] [address] Division of Colon & Rectal Surgery Start: 09-29-2024 End: 09-29-2024 Patient encounter procedure 09/29/2024 1:45 PM EDT Office Visit [facility] ALVARAD[facility] [address] [address] Daniela Beckford DO [address] [place] [address] [facility] LOPEZUSKY Start: 09-26-2024 End: 09-26-2025 XR Chest 2 Views [facility] Work Phone: Comment on above: Expected: 09/26/2024, Expires: Start: 09-22-2024 End: 09-22-2024 Patient encounter procedure 09/22/2024 2:30 PM EDT Office Visit [facility] [place] [address] [place] [address] [place] [address] Milind Fitch, CAN 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 [address] [place] [address] [facility] Start: 09-22-2024 End: 09-22-2025 METHYLMALONIC ACID [facility] Comment on above: Expected: 09/22/2024, Expires: Start: 09-22-2024 End: 09-22-2025 VITAMIN D (25-HYDROXY,TOTAL) [facility] Comment on above: Expected: 09/22/2024, Expires: Start: 09-22-2024 End: 09-22-2025 ZINC, SERUM [facility] Comment on above: Expected: 09/22/2024, Expires: Start: 08-01-2024 End: 08-01-2024 Patient encounter procedure 08/01/2024 6:00 PM EDT Office Visit [facility] [address] [place] [address] Katie Aceves NP [address] [place], [place] [phone] Arrived [facility] Comment on above: Arrived Start: 07-20-2024 End: 07-20-2025 CT Head WO contrast CT head wo IV contrast Imaging Routine Nonintractable episodic headache, unspecified headache type Expected: 07/20/2024, Expires: 07/20/2025 [facility] Work Phone: Comment on above: Expected: 07/20/2024, Expires: Start: 07-15-2024 End: 07-15-2024 Patient encounter procedure 07/15/2024 3:30 PM EDT Office Visit [facility] [address] [place] [address] Chey Aragon MD [address] [place], [place] [phone] Arrived [facility] Comment on above: Arrived Start: 06-22-2024 End: 06-22-2024 Patient encounter procedure 06/22/2024 12:30 PM EDT Appointment ENT Clinic [address] [address] Zhou Lee MD Otolaryngology [address] [address] Discharge Disposition: Home [facility] Clinic [facility] Start: 06-01-2024 End: 06-01-2024 US MFM with or without consult US MFM with or without consult Imaging Routine Maternal Crohn's disease affecting in second trimester ([facility]) History of chronic ulcerative colitis Expected: 06/01/2024 (Approximate), Expires: 06/01/2024 [facility] Work Phone: Comment on above: Expected: 06/01/2024 (Approximate), Expi res: 06/01/2024 Start: 06-01-2024 End: 06-01-2024 Patient encounter procedure 06/01/2024 10:30 AM EST Office Visit [facility] [address] [place] [phone] Serene Alfred NP [address] [place] [address] [facility] Start: 05-17-2024 End: 05-17-2024 Patient encounter procedure 05/17/2024 3:15 PM EST Office Visit [facility] [address] [place] [phone] Katie Aceves NP [address] [place] [address] Arrived [facility] Comment on above: Arrived Start: 05-10-2024 End: 05-10-2024 Admission to same day surgery center 05/10/2024 1:35 PM EST - 05/10/2024 3:25 PM EST Surgery [facility] [address] [address] Zhou Lee MD Otolaryngology Section [address] [address] ENDOSCOPY, BILATERAL NOSE, DIAGNOSTIC [facility] Comment on above: ENDOSCOPY, BILATERAL NOSE, DIAGNOSTIC Start: 05-10-2024 End: 05-10-2024 Control nasal hemorrhage anterior simple SIMPLE CONTROL OF EPISTAXIS Chronic maxillary sinusitis Epistaxis 05/10/2024 1:35 PM [facility] Start: 05-10-2024 End: 05-10-2024 Myringoplasty MYRINGOPLASTY, USING PAPER PATCH IF INDICATED Chronic maxillary sinusitis Epistaxis 05/10/2024 1:35 PM [facility] Start: 05-10-2024 End: 05-10-2024 Nasal endoscopy diagnostic uni/bi spx ENDOSCOPY, NOSE, DIAGNOSTIC Chronic maxillary sinusitis Epistaxis 05/10/2024 1:35 PM [facility] Start: 05-10-2024 End: 05-10-2024 Nsl/sinus ndsc max antrost w/rmvl tiss max sinus MAXILLARY ANTROSTOMY, WITH TISSUE REMOVAL Chronic maxillary sinusitis Epistaxis 05/10/2024 1:35 PM [facility] Start: 05-10-2024 End: 05-10-2024 Otolaryngologic exam under general anesthesia EXAM UNDER ANESTHESIA, EAR, BILATERAL Chronic maxillary sinusitis Epistaxis 05/10/2024 1:35 PM [facility] Start: 05-10-2024 Subsequent hospital visit by physician 05/10/2024 1:35 PM EST Hospital Encounter [address] [phone] Zhou Lee MD Otolaryngology Section [address] [place] [address] [facility] Start: 05-04-2024 End: 05-04-2024 Patient encounter procedure 05/04/2024 11:30 AM EST Appointment ENT Clinic [address] [phone] Zhou Lee MD Otolaryngology Section [address] [address] Discharge Disposition: Home ENT Clinic [facility] Start: 04-27-2024 End: 04-27-2024 US MFM with or without consult US MFM with or without consult Imaging Routine Maternal Crohn's disease affecting in second trimester ([facility]) Expected: 04/27/2024 (Approximate), Expires: 04/27/20[facility] Work Phone: Comment on above: Expected: 04/27/2024 (Approximate), Expi res: 04/27/2024 Start: 04-24-2024 Tobacco Screening Tobacco Screening [facility] Start: 03-22-2024 End: 03-22-2024 Admission to same day surgery center 03/22/2024 2:30 PM EST - 03/22/2024 4:00 PM EST Surgery [address] [address] Zhou Lee MD Otolaryngology Section [address] [place] [address] ENDOSCOPY, BILATERAL NOSE, DIAGNOSTIC [facility] Comment on above: ENDOSCOPY, BILATERAL NOSE, DIAGNOSTIC Start: 03-22-2024 Subsequent hospital visit by physician 03/22/2024 2:30 PM EST Hospital Encounter [address] [address] Zhou Lee MD Otolaryngology Section [address] [place] [address] [facility] Start: 03-22-2024 End: 03-22-2024 Control nasal hemorrhage anterior simple [facility] Start: 03-22-2024 End: 03-22-2024 Myringoplasty [facility] Start: 03-22-2024 End: 03-22-2024 Nasal endoscopy diagnostic uni/bi spx [facility] Start: 03-22-2024 End: 03-22-2024 Nsl/sinus ndsc max antrost w/rmvl tiss max sinus [facility] Start: 03-22-2024 End: 03-22-2024 Otolaryngologic exam under general anesthesia [facility] Start: 02-16-2024 End: 02-15-2025 CT Sinuses WO contrast CT Sinuses Stealth without Contrast Imaging Routine Chronic sinusitis, unspecified location Expected: 02/16/2024 (Approximate), Expires: 02/15/2025 [facility] Work Phone: Comment on above: Expected: 02/16/2024 (Approximate), Expi res: 02/15/2025 Start: 02-10-2024 End: 02-10-2024 Patient encounter procedure 02/10/2024 10:30 AM EDT Office Visit [facility] [address] [place] [phone] Serene Alfred NP [address] [place] [address] Arrived [facility] Comment on above: Arrived Start: 01-27-2024 End: 01-26-2025 25-hydroxyvitamin D3 [Mass/volume] in Serum or Plasma Vitamin D 25 hydroxy Lab Routine Vitamin D deficiency Expected: 01/27/2024 (Approximate), Expires: 01/26/2025 [facility] Comment on above: Expected: 01/27/2024 (Approximate), Expi res: 01/26/2025 Start: 01-27-2024 End: 01-26-2025 CBC W Auto Differential panel - Blood CBC and differential Lab Routine Encounter for wellness examination in adult Microcytic anemia Expected: 01/27/2024 (Approximate), Expires: 01/26/2025 [facility] Comment on above: Expected: 01/27/2024 (Approximate), Expi res: 01/26/2025 Start: 01-27-2024 End: 01-26-2025 Cobalamin (Vitamin B12) [Mass/volume] in Serum or Plasma Vitamin B12 Lab Routine Other fatigue Expected: 01/27/2024 (Approximate), Expires: 01/26/2025 [facility] Comment on above: Expected: 01/27/2024 (Approximate), Expi res: 01/26/2025 Start: 01-27-2024 End: 01-26-2025 Comprehensive metabolic 2000 panel - Serum or Plasma Comprehensive metabolic panel Lab Routine Encounter for wellness examination in adult Gastroesophageal reflux disease without esophagitis Expected: 01/27/2024 (Approximate), Expires: 01/26/2025 [facility] Work Phone: Comment on above: Expected: 01/27/2024 (Approximate), Expi res: 01/26/2025 Start: 01-27-2024 IBD Iron Studies IBD Iron Studies [facility] Start: 01-27-2024 End: 01-26-2025 Iron + transferrin + TIBC Iron + transferrin + TIBC Lab Routine Microcytic anemia Expected: 01/27/2024 (Approximate), Expires: 01/26/2025 [facility] Comment on above: Expected: 01/27/2024 (Approximate), Expi res: 01/26/2025 Start: 01-27-2024 End: 01-26-2025 TSH W/REFLEX TO FT4 TSH W/REFLEX TO FT4 Lab Routine Encounter for wellness examination in adult Other fatigue Expected: 01/27/2024 (Approximate), Expires: 01/26/2025 [facility] Comment on above: Expected: 01/27/2024 (Approximate), Expi res: 01/26/2025 Start: 01-27-2024 End: 01-27-2024 Patient encounter procedure 01/27/2024 10:00 AM EDT Office Visit [facility] STEPHANIE ALLEN [address] [place] [address] Serene Alfred NP [address] [place], [place] [id number] Arrived [facility] Comment on above: Arrived Start: 12-13-2023 COVID-19 VACCINE () COVID-19 VACCINE ( season) [facility] Start: 12-13-2023 Influenza vaccination [facility] Start: 10-22-2023 End: 10-22-2023 Telemedicine consultation with patient 10/22/2023 9:30 AM EDT Telemedicine [facility] [address] [place], [place] [id number] Milind Fitch, CAN 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 [address] [place] [id number] [facility] [place] Start: 10-21-2023 DTaP,Tdap and Td Vaccines (7 - Td or Tdap) DTaP,Tdap and Td Vaccines (7 - Td or Tdap) [facility] Start: 10-21-2023 DTaP/Tdap/Td vaccine (7 - Td or Tdap) DTaP/Tdap/Td vaccine (7 - Td or Tdap) [facility] Start: 10-21-2023 DTaP/Tdap/Td VACCINES (7 - Td or Tdap) DTaP/Tdap/Td VACCINES (7 - Td or Tdap) [facility] Start: 10-21-2023 Tetanus vaccination TETANUS [facility] Start: 08-06-2023 End: 08-05-2024 CALPROTECTIN, STOOL CALPROTECTIN, STOOL Fluids Routine Crohn's disease in remission Expected: 08/06/2023, Expires: 08/05/2024 [facility] Comment on above: Expected: 08/06/2023, Expires: Start: 08-06-2023 End: 08-05-2024 US.doppler Lower extremity vein - left VASC DUPLEX VENOUS EXTREMITY LOWER LEFT Imaging STAT Left leg swelling Expected: 08/06/2023, Expires: 08/05/2024 [facility] Comment on above: Expected: 08/06/2023, Expires: 5 Start: 07-03-2023 End: 07-03-2023 Patient encounter procedure 07/03/2023 3:00 PM EDT Appointment [facility] [address] [place] [address] [facility] Start: 06-01-2023 End: 06-01-2023 Patient encounter procedure 06/01/2023 6:30 PM EST Routine [facility] [address] [place] [phone] Alfredo Duong CNM [address] [place], [place] [id number] [facility] Start: 05-29-2023 End: 05-29-2023 Patient encounter procedure 05/29/2023 2:45 PM EST Appointment [facility] [address] [place] [address] [facility] Start: 05-26-2023 End: 05-26-2023 Patient encounter procedure 05/26/2023 7:30 PM EST Office Visit [facility] [address] [place] [phone] Rubia Hernandez NP [address] [place], [place] [phone] Arrived [facility] Comment on above: Arrived Start: 04-29-2023 End: 04-29-2023 Patient encounter procedure 04/29/2023 10:00 AM EST Office Visit [facility] [address] [place] [address] [place] [address] Teresa Gerber, CAN 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 [address] [place] [address] Inflammatory Bowel Disease [facility] Start: 04-24-2023 End: 04-24-2023 Patient encounter procedure [facility] Start: 04-03-2023 End: 04-03-2023 Clinical Support Encounter 04/03/2023 11:00 AM EST Clinical Support Encounter [facility] [address] [place] [address] [place], [place] [id number] Inflammatory Bowel Disease [facility] Start: 03-20-2023 IBD Iron Studies IBD Iron Studies [facility] Start: 02-25-2023 End: 02-26-2024 CALPROTECTIN, STOOL CALPROTECTIN, STOOL Fluids Routine Crohn's disease of both small and large intestine with complication Expected: 02/25/2023, Expires: 02/26/2024 [facility] Comment on above: Expected: 02/25/2023, Expires: 4 Start: 02-25-2023 End: 02-26-2024 HEP A AB, TOTAL (IGG+IGM) HEP A AB, TOTAL (IGG+IGM) Lab Routine Crohn's disease of both small and large intestine with complication Expected: 02/25/2023, Expires: 02/26/2024 [facility] Comment on above: Expected: 02/25/2023, Expires: 4 Start: 02-25-2023 End: 02-26-2024 M TUBERCULOSIS BY QUANTIFERON, BLD [facility] Comment on above: Expected: 02/25/2023, Expires: 4 Start: 02-25-2023 End: 02-26-2024 THIOPURINE METHYL-TRANSFERASE [facility] Comment on above: Expected: 02/25/2023, Expires: 4 Start: 02-25-2023 End: 02-26-2024 ZINC, SERUM [facility] Comment on above: Expected: 02/25/2023, Expires: 4 Start: 02-18-2023 End: 02-18-2023 Patient encounter procedure [facility] Start: 01-26-2023 End: 01-27-2024 Ferritin [Mass/volume] in Serum or Plasma [facility] Comment on above: One Time for 1 Occurrences starting 01/11 until 01/26/2023 Expected: 01/26/2023 (Approximate), Expires: 01/27/2024 Start: 01-26-2023 End: 01-26-2023 Patient encounter procedure [facility] Start: 01-20-2023 End: 01-20-2023 Patient encounter procedure 01/20/2023 1:00 PM EDT Appointment [facility] [address] [place], [place] [address] [place] [address] Martha Hatfield MD [address] [place] [address] [facility] Start: 01-14-2023 IBD TDM Annual Screening Ustekinumab IBD TDM Annual Screening Ustekinumab [facility] Start: 01-05-2023 End: 01-05-2023 Admission to same day surgery center Perioperative Services Comment on above: ETHMOID SINUS SURGERY bilateral Start: 01-05-2023 End: 01-05-2023 Nasal/sinus ndsc w/partial ethmoidectomy [facility] Start: 01-05-2023 End: 01-05-2023 Nsl/sinus ndsc max antrost w/rmvl tiss max sinus [facility] [place] Start: 01-05-2023 End: 01-05-2023 Strtctc cptr asstd px cranial intradural [facility] [place] Start: 01-05-2023 Subsequent hospital visit by physician Perioperative Services Start: 01-05-2023 End: 01-05-2023 Patient encounter procedure 01/05/2023 10:[address] [facility] [address] [place] [phone] Discharge Disposition: Home CT [facility] Start: 12-24-2022 IBD on Biologics/Immunomodulators Quantiferon IBD on Biologics/Immunomodulato rs Quantiferon [facility] Start: 12-12-2022 COVID-19 Vaccine ( season) COVID-19 Vaccine ( season) [facility] Start: 12-12-2022 Influenza vaccination [facility] Start: 2022 Screening for malignant neoplasm of cervix [facility] Start: 11-02-2022 IBD 25-OH Vitamin D IBD 25-OH Vitamin D [facility] Start: 09-18-2022 IBD 25-OH Vitamin D IBD 25-OH Vitamin D [facility] Start: 09-03-2022 IBD Annual Visit IBD Annual Visit [facility] Start: 07-25-2022 End: 07-25-2022 Patient encounter procedure 07/25/2022 Appointment Rheumatology Rheumatology Clinic [facility] Start: 07-25-2022 End: 07-25-2022 Patient encounter procedure 07/25/2022 Appointment Gastroenterology Javier Agee MD [address] [place] [id number] [facility] Start: 06-09-2022 IBD Calprotectin IBD Calprotectin [facility] Start: 05-24-2022 IBD Surveillence Colonscopy 8 years after diagnosis IBD Surveillence Colonscopy 8 years after diagnosis [facility] Start: 05-06-2022 IBD TDM Post Induction Ustekinumab IBD TDM Post Induction Ustekinumab [facility] Start: 05-05-2022 End: 05-05-2022 Patient encounter procedure 05/05/2022 Appointment Ent-Otolaryngology Zhou Lee MD Otolaryngology Section [address] [place] [id number] [facility] Start: 12-12-2021 Influenza vaccination INFLUENZA VACCINE (#1) [facility] Start: 04-18-2021 COVID-19 Vaccine (2 - Misael risk 3-dose series) COVID-19 Vaccine (2 - Misael risk 3-dose series) [facility] Start: 04-18-2021 COVID-19 Vaccine (2 - Misael risk series) COVID-19 Vaccine (2 - Misael risk series) [facility] Start: 12-12-2020 Influenza vaccination Flu vaccine (#1) [facility] Start: 2020 DTaP,Tdap and Td Vaccines (1 - Tdap) DTaP,Tdap and Td Vaccines (1 - Tdap) [facility] Start: 2020 DTaP/Tdap/Td vaccine (1 - Tdap) DTaP/Tdap/Td vaccine (1 - Tdap) [facility] Start: 2020 Pneumococcal 0-49 years Vaccine (1 of 2 - PCV) Pneumococcal 0-49 years Vaccine (1 of 2 - PCV) [facility] Start: 2020 Pneumococcal vaccination Pneumococcal Vaccine (1 of 2 - PCV) [facility] Start: 2020 PNEUMOCOCCAL VACCINE SERIES (1 of 2 - PCV) PNEUMOCOCCAL VACCINE SERIES (1 of 2 - PCV) [facility] Start: 2020 Shingles vaccine (1 of 2) Shingles vaccine (1 of 2) [facility] Start: 2020 Zoster vaccine hzv live for subcutaneous use ZOSTER (SHINGLES) VACCINE (1 of 2) [facility] Start: 11-04-2019 Adult BMI Screening Adult BMI Screening [facility] Start: 11-04-2019 Hepatitis C screening Hepatitis C screen [facility] Start: 12-18-2017 Varicella vaccine (2 of 2 - 2-dose childhood series) Varicella vaccine (2 of 2 - 2-dose childhood series) [facility] Start: 12-18-2017 VARICELLA VACCINES (2 of 2 - 2-dose childhood series) VARICELLA VACCINES (2 of 2 - 2-dose childhood series) [facility] Start: 2017 MENB (1 of 2 - Patient Seeks Protection) MENB (1 of 2 - Patient Seeks Protection) [facility] Start: 2017 Meningococcal B Vaccine (1 of 2 - Patient Seeks Protection) Meningococcal B Vaccine (1 of 2 - Patient Seeks Protection) [facility] Start: 2017 Meningococcal B Vaccine (1 of 2 - Standard) Meningococcal B Vaccine (1 of 2 - Standard) [facility] Start: 2017 Screening for Chlamydia trachomatis [facility] Start: 2016 HIV screening [facility] Start: 2016 HPV Vaccine (1 - 3-dose series) HPV Vaccine (1 - 3-dose series) [facility] Start: 2016 Vaccination for human papillomavirus HPV VACCINE ADOL (1 - 3-dose series) [facility] Start: 11-04-2015 Gastroenterology Transition Assessment Gastroenterology Transition Assessment [facility] Start: 11-04-2015 Hemonc Transition Assessment Hemonc Transition Assessment [facility] Start: 11-04-2015 Rheumatology Transition Assessment Rheumatology Transition Assessment [facility] Start: 2013 Depression Screen Depression Screen [facility] Start: 2013 Depression Screening Depression Screening [facility] Start: 2013 Tobacco Screening Tobacco Screening [facility] Start: 2012 HPV vaccine (1 - 2-dose series) HPV vaccine (1 - 2-dose series) [facility] Start: 2012 HPV Vaccine (1 - Risk 3-dose series) HPV Vaccine (1 - Risk 3-dose series) [facility] Start: 2012 Vaccination for human papillomavirus HPV VACCINE ADOL (1 - 2-dose series) [facility] Start: 11-04-2011 MENB (1 of 2 - Risk Bexsero 2-dose series) MENB (1 of 2 - Risk Bexsero 2-dose series) [facility] Start: 2010 HPV Vaccine (1 - Risk 3-dose series) HPV Vaccine (1 - Risk 3-dose series) [facility] Start: 2010 HPV VACCINES (1 - 2-dose series) HPV VACCINES (1 - 2-dose series) [facility] Start: 11-04-2007 Pneumococcal 0-64 years Vaccine (1 - PCV) Pneumococcal 0-64 years Vaccine (1 - PCV) [facility] Start: 11-04-2007 Pneumococcal vaccination [facility] Start: 11-04-2007 PNEUMOCOCCAL VACCINE SERIES (1 - PCV) PNEUMOCOCCAL VACCINE SERIES (1 - PCV) [facility] Start: 11-04-2007 PNEUMOCOCCAL VACCINE SERIES (1 of 2 - PCV) PNEUMOCOCCAL VACCINE SERIES (1 of 2 - PCV) [facility] Start: 2006 COVID-19 Vaccine (1) COVID-19 Vaccine (1) [facility] Start: 2002 Dental Hygiene (Due every 6 months) Dental Hygiene (Due every 6 months) [facility] Start: 2002 Varicella vaccine (1 of 2 - 2-dose childhood series) Varicella vaccine (1 of 2 - 2-dose childhood series) [facility] Start: 2001 Dental Oral Exam Dental Oral Exam [facility] Start: 2001 Hepatitis C screening Hepatitis C screen [facility] Start: 2001 Screening for Chlamydia trachomatis GONORRHEA SCREEN [facility] End: 07-09-2021 Anti-Thyroglobulin Antibody [employer] Phone: Comment on above: Once for 1 Occurrences starting 07/10/19 until 07/09/2021 End: 01-26-2023 CBC W/AUTOMATED DIFF, REFLEX TO MANUAL CBC W/AUTOMATED DIFF, REFLEX TO MANUAL Lab Routine Iron deficiency One Time for 1 Occurrences starting 01/26/2023 until 01/26/2023 [facility] Work Phone: Comment on above: One Time for 1 Occurrences starting 01/11 until 01/26/2023 End: 10-26-2024 Ct abdomen & pelvis w/o contrst body re [facility] Comment on above: 1 Occurrences starting 10/26/2024 until 10/26/2024 Excision excessive s kin & subq tissue other area EXCISION, SKIN AND SUBCUTANEOUS TISSUE Sebaceous cyst [facility] [place] End: 07-09-2021 Immunofixation serum profile [employer] Phone: Comment on above: Once for 1 Occurrences starting 07/10/19 until 07/09/2021 End: 07-09-2021 Immunoglobulin G Subclasses [employer] Phone: Comment on above: Once for 1 Occurrences starting 07/10/19 until 07/09/2021 End: 07-09-2021 Lymphocyte Subset [employer] Phone: Comment on above: Once for 1 Occurrences starting 07/10/19 until 07/09/2021 Nasal/sinus ndsc w/p artial ethmoidectomy ENDOSCOPY, NOSE, WITH ETHMOIDECTOMY Chronic sinusitis, unspecified location [facility] [place] Nsl/sinus ndsc max a ntrost w/rmvl tiss max sinus MAXILLARY ANTROSTOMY, WITH TISSUE REMOVAL Chronic sinusitis, unspecified location [facility] [place] End: 03-22-2024 PULSE OXIMETER - CONTINUOUS PULSE OXIMETER - CONTINUOUS Respiratory Care Routine Continuous until discontinued starting 03/22/2024 [facility] Work Phone: Comment on above: Continuous until discontinued starting 1 05/23/2023 End: 07-09-2021 Strep Pneumoniae Antibody Serotypes [employer] Phone: Comment on above: Once for 1 Occurrences starting 07/10/19 until 07/09/2021 SURG PATH REQUEST [facility] Comment on above: Release Upon Ordering for 1 Occurrences starting 11/18/2023, 1 completed SURG PATH REQUEST [facility] Work Phone: Comment on above: Release Upon Ordering for 1 Occurrences starting 11/02/2024, 1 completed SURG PATH REQUEST (M ust Attach Requisition) [facility] Comment on above: Release Upon Ordering for 1 Occurrences starting 09/06/2024, 1 completed End: 01-17-2025 US Unspecified body region US [facility] ANESTHESIA Imaging Routine One Time for 1 Occurrences starting 01/17/2025 until 01/17/2025 [facility] Comment on above: One Time for 1 Occurrences starting 10/2024 until 01/17/2025 Immunizations Immunization Date Immunization Notes Care Provider [facility] 08-11-2022 hepatitis B vaccine, adult dosage Rubia Kampfer CENTRAL SUPPLY CLERK Work Phone: [facility] 06-26-2022 hepatitis B vaccine, adult dosage Rubia Kampfer CENTRAL SUPPLY CLERK Work Phone: [facility] 05-13-2022 tuberculin skin test ; purified protein derivative solution, intradermal Rubia Kampfer CENTRAL SUPPLY CLERK Work Phone: [facility] 04-30-2022 tuberculin skin test ; purified protein derivative solution, intradermal Rubia Kampfer CENTRAL SUPPLY CLERK Work Phone: [facility] 02-19-2022 influenza, injectabl e, quadrivalent, preservative free Rubia Kampfer CENTRAL SUPPLY CLERK Work Phone: [facility] 02-19-2022 influenza virus vacc ine, unspecified formulation Zhou Lee MD Work Phone: [facility] 02-15-2021 influenza, injectabl e, quadrivalent, preservative free Brielle Teran RN [facility] 02-15-2021 influenza, seasonal, injectable, preservative free Brielle Teran RN [facility] 02-15-2021 influenza virus vacc ine, unspecified formulation Brielle Teran RN [facility] 02-29-2020 influenza, injectabl e, quadrivalent, preservative free Rubia Finneypfer CENTRAL SUPPLY CLERK Work Phone: [facility] 02-21-2020 influenza, injectabl e, quadrivalent, preservative free Brielle Teran RN [facility] 04-29-2019 influenza, injectabl e, quadrivalent, preservative free Brielle Teran RN [facility] 10-25-2018 meningococcal oligosaccharide (groups A, C, Y and W-135) diphtheria toxoid conjugate vaccine (MCV4O) Brielle Teran RN [facility] 01-08-2018 influenza, injectabl e, quadrivalent, preservative free Brielle Teran RN [facility] 01-08-2018 influenza, seasonal, injectable, preservative free Rubia Finneypjudah CENTRAL SUPPLY CLERK Work Phone: [facility] 11-20-2017 influenza virus vacc ine, live, attenuated, for intranasal use Brielle Teran RN [facility] 11-20-2017 influenza, live, intranasal, quadrivalent Rubia Hernandez CENTRAL SUPPLY CLERK Work Phone: [facility] 02-04-2016 influenza, seasonal, injectable, preservative free Brielle Teran RN [facility] 06-11-2014 tuberculin skin test ; purified protein derivative solution, intradermal Otilia Sinclair Work Phone: [facility] 03-26-2014 influenza, seasonal, injectable, preservative free Brielle Teran RN [facility] 03-17-2014 influenza, seasonal, injectable, preservative free Rubia Hernandez CENTRAL SUPPLY CLERK Work Phone: [facility] 10-20-2013 meningococcal polysaccharide (groups A, C, Y and W-135) diphtheria toxoid conjugate vaccine (MCV4P) Brielle Teran RN [facility] 10-20-2013 tetanus toxoid, redu rubina diphtheria toxoid, and acellular pertussis vaccine, adsorbed Brielle Teran RN [facility] 05-05-2013 influenza, injectabl e, quadrivalent, preservative free Brielle Teran RN [facility] 12-08-2006 diphtheria, tetanus toxoids and acellular pertussis vaccine Brielle Teran RN [facility] 12-08-2006 measles, mumps and rubella virus vaccine Brielle Teran RN [facility] 12-08-2006 poliovirus vaccine, inactivated Brielle Teran RN [facility] 01-17-2005 influenza, seasonal, injectable Brielle Teran RN [facility] 03-14-2003 influenza virus vacc ine, whole virus Rubia Hernandez CENTRAL SUPPLY CLERK Work Phone: [facility] 03-14-2003 influenza, seasonal, injectable, preservative free Brielle Teran RN [facility] 03-14-2003 pneumococcal conjuga te vaccine, 7 valent Brielle Teran RN [facility] 02-10-2003 diphtheria, tetanus toxoids and pertussis vaccine Brielle Teran RN [facility] 02-10-2003 DTP Brielle Teran RN [facility] 02-10-2003 haemophilus influenz ae type b vaccine, PRP-T conjugate Brielle Teran RN [facility] 02-10-2003 influenza virus vacc ine, whole virus Rubia Hernandez CENTRAL SUPPLY CLERK Work Phone: [facility] 02-10-2003 influenza, seasonal, injectable, preservative free Brielle Teran RN [facility] 02-10-2003 pneumococcal conjuga te vaccine, 7 valent Brielle Teran RN [facility] 11-07-2002 measles, mumps and rubella virus vaccine Brielle Teran RN [facility] 11-07-2002 varicella virus vaccine Brielle gilbert RN [facility] 11-07-2002 zoster vaccine, unspecified formulation Kye Solis MD Work Phone: [facility] 06-01-2002 diphtheria, tetanus toxoids and acellular pertussis vaccine Brielle Teran RN [facility] 06-01-2002 haemophilus influenz ae type b conjugate and Hepatitis B vaccine Brielle Teran RN [facility] 06-01-2002 pneumococcal conjuga te vaccine, 7 valent Brielle Teran RN [facility] 06-01-2002 poliovirus vaccine, inactivated Brielle Teran RN [facility] 03-08-2002 diphtheria, tetanus toxoids and acellular pertussis vaccine Brielle Teran RN [facility] 03-08-2002 haemophilus influenz ae type b vaccine, PRP-T conjugate Brielle Teran RN [facility] 03-08-2002 pneumococcal conjuga te vaccine, 7 valent Brielle Teran RN [facility] 03-08-2002 poliovirus vaccine, inactivated Brielle Teran RN [facility] 01-04-2002 diphtheria, tetanus toxoids and acellular pertussis vaccine Brielle Teran RN [facility] 01-04-2002 haemophilus influenz ae type b vaccine, PRP-T conjugate Brielle Teran RN [facility] 01-04-2002 hepatitis B vaccine, pediatric or pediatric/adolescent dosage Brielle Teran RN [facility] 01-04-2002 poliovirus vaccine, inactivated Brielle Teran RN [facility] 2001 hepatitis B vaccine, pediatric or pediatric/adolescent dosage Brielle Teran RN [facility] Payers Date Payer Category Payer Self-pay [id number] 2023 Medicaid (Managed Care) [employer] [id number] 2023 Private Health Insurance [employer] [id number] 2023-Present [address] [place] [address] [id number] 2023 Medicaid [id number]. [id number] 2021 [facility] [id number]. [id number] 2021 Managed Care (unspecified) [facility] PPO POS [id number] 2013 Unknown [id number] 1.13.161.2. [id number] 2001 Unknown [id number] 2.16.840.1.664614.3.579.2. 175 2001 Unknown [id number] 2.16.840.1.806558.3.579.2. 175 2001 Unknown [id number] 2.16.840.1.726880.3.579.2. 593 2001 Unknown [id number] 2.16.840.1.424555.3.579.2. 593 2001 Unknown [id number] 2.16.840.1.335505.3.579.2. 593 2001 Unknown [id number] 2.16.840.1.140909.3.579.2. 1286 2001 Unknown [id number] 2.16.840.1.787104.3.579.2. 1286 2001 Unknown [id number] 2.16.840.1.770142.3.579.2. 1286 2001 Unknown [id number] 2.16840.1.604059.3.579.2. 1286 2001 Unknown [id number] 2.16.840.1.787715.3.579.2. 718 2001 Unknown [id number] 2.16840.1.794074.3.579.2. 430 2001 Unknown [id number] 2.16.840.1.424761.3.579.2. 430 2001 Unknown [id number] 2.16840.1.890070.3.579.2. 430 2001 Unknown [id number] 2.16840.1.003608.3.579.2. 430 2001 Unknown [id number] 2.16.840.1.418249.3.579.2. 430 2001 Unknown [id number] 2.16.840.1.784312.3.579.2. 1259 2001 Unknown [id number] 2.16.840.1.070286.3.579.2. 1259 2001 Unknown [id number] 2.16.840.1.401078.3.579.2. 1259 2001 Unknown [id number] 2.16840.1.315471.3.579.2. 1259 2001 Unknown [id number] 2.16840.1.242853.3.579.2. 1259 2001 Unknown [id number] 2.840.1.394829.3.579.2. 125 2001 Unknown [id number] 2.16840.1.473215.3.579.2. 1259 2001 Unknown [id number] 2.840.1.685825.3.579.2. 1258 2001 Unknown [id number] 2.840.1.570781.3.579.2. 9 2001 Unknown [id number] 2.840.1.999654.3.579.2. 176 2001 Unknown [id number] 2.840.1.065779.3.579.2. 594 2001 Unknown [id number] 2.840.1.087938.3.579.2. 594 2001 Unknown [id number] 2.840.1.278520.3.579.2. 594 2001 Unknown [id number] 2.840.1.824493.3.579.2. 594 2001 Unknown [id number] 2.840.1.309286.3.579.2. 594 2001 Unknown [id number] 2.840.1.217554.3.579.2. 594 2001 Unknown [id number] 2.840.1.803758.3.579.2. 594 2001 Unknown [id number] 2.840.1.783872.3.579.2. 594 2001 Unknown [id number] 2.16.840.1.829784.3.579.2. 594 2001 Unknown [id number] 2.16.840.1.787167.3.579.2. 594 2001 Unknown [id number] 2.16.840.1.362532.3.579.2. 594 2001 Unknown [id number] 2.16.840.1.551299.3.579.2. 594 2001 Unknown [id number] 2.16.840.1.439742.3.579.2. 594 2001 Unknown [id number] 2.16.840.1.291613.3.579.2. 594 2001 Unknown [id number] 2.16.840.1.249401.3.579.2. 594 1959 Unknown [id number] 1958 Unknown [id number] Unknown [id number] Social History Date Type Detail Facility Start: 09-11-2011 End: 10-27-2022 Tobacco smoking status [facility] Never smoked tobacco [facility] Phone: Start: 07-26-2014 End: 08-19-2024 Alcohol intake Current non-drinker of alcohol (finding) [facility] Phone: Start: 2000 Sex Assigned At Not on file M [facility] Phone: Start: 02-28-2022 End: 10-27-2022 Tobacco use and exposure Smokeless tobacco non-user [facility] Start: 03-21-2022 End: 01-17-2025 Alcohol intake Ex-drinker (finding) [facility] Start: 03-21-2022 End: 05-17-2024 Alcohol intake [facility] Start: 08-26-2021 History SDOH Financial 5 [facility] Start: 08-26-2021 History SDOH Food Worry 1 [facility] Start: 08-26-2021 History SDOH Transport Med 2 [facility] Start: 05-17-2016 End: 05-17-2024 Tobacco use panel [facility] Start: 06-25-2022 How hard is it for you to pay for the very basics like food, housing, medical care, and heating Not hard at all [facility] (I/We) worried whether (my/our) food would run out before (I/we) got money to buy more. Never true [facility] In the past 12 months, was there a time when you were not able to pay the mortgage or rent on time? No [facility] Start: 12-22-2022 [facility] Are you now , , , , [...] Alcohol Comment caffeine intak e : coffee [facility] Start: 05-26-2023 Alcohol Comment caffeine intake : NO [facility] Start: 2000 Sex Assigned At Female F [facility] Start: 05-23-2012 End: 01-16-2023 Sex Female (finding) [facility] Start: 05-26-2024 Gender identity Identifies as female gender (finding) [facility] Start: 05-26-2024 Sexual orientation Heterosexual (jillian burgess) [facility] NEGATED: Highlighted rowStart: NINF History of tobacco use Passive smoker [facility] Medical Equipment Procedure Code Equipment Code Equipment Origin al Text Equipment Identifier Dates Surgiflo [id number]_[facility] Start: 07-23-2015 Comment on above: Description: Teresa Richmond Ta 90-3.5 - [id number]_[facility] Start: 03-21-2016 Sealant Floseal 5ml - [id number]_[facility] Start: 06-11-2018 Comment on above: Description: Sinus Staplr Mlti Kristen 80-3.8 - [id number] Start: 03-21-2016 Rld Mlti Kristen 80 3.8 - [id number] Start: 03-21-2016 Rld Mlti Kristen 80 3.8 - [id number] Start: 03-21-2016 Graft Bio Edgar Repair .6x9cm - [id number]_[facility] FDA Start: 03-22-2024 Comment on above: Description: Site: L eft Ear Spng Surgifoam A gs Sz 12-7 - [id number]_[facility] Start: 03-22-2024 Goals Date Patient Goal Desired Activity /State Personal health goal Functional Status Date Assessment Result Facility 01-17-2025 Are you deaf, or do you have serious difficulty hearing No 01/17/2025 6:45 PM EDT Michael Brooks RN No [facility] 01-17-2025 Are you blind, or do you have serious difficulty seeing, even when wearing glasses No 01/17/2025 6:45 PM EDT Michael Brooks RN No [facility] 01-17-2025 Do you have serious difficulty walking or climbing stairs No 01/17/2025 6:45 PM EDMichael Hopson RN No [facility] 01-17-2025 Do you have difficul ty dressing or bathing No 01/17/2025 6:45 PM EDMichael Hopson, DEEPTI No [facility] 01-17-2025 Because of a physica l, mental, or emotional condition, do you have difficulty doing errands alone such as visiting a physician's office or shopping No 01/17/2025 6:45 PM EDMichael Hopson RN No [facility] Mental Status Date Assessment Result Facility 01-17-2025 Because of a physica l, mental, or emotional condition, do you have serious difficulty concentrating, remembering, or making decisions No 01/17/2025 6:45 PM EDT Michael Brooks, DEEPTI No [facility] Clinical Notes 08-06-2021 to 01-19-2025 Nursing Notes - Elsie Mendoza RN - 01/19/2025 3:24 PM EDTNursing Notes - Michelle Alexander RN - 01/19/2025 10:00 AM EDTPlan of Care - Yvonne Pino RN - 01/19/2025 6:24 AM EDTMedications Note Date & Type Note Facility 01-19-2025 Miscellaneous Notes Patient discharged, Ivs removed. Discharge paperwork reviewed with patient and her parents. Images from the original note were not included. WOC/ET Nursing Consult/Evaluation Note Evaluated [place] for ostomy located in RLQ See H&P for more information Description of stoma: RLQ Loop Ileostomy: previous pouch gently removed with adhesive releaser with 25 ml liquid stool in pouch and flatus noted. Stoma and peristomal skin cleansed with water. Stoma red moist protruding above skin level with white traci in place. Traci removed with slight tension but with deep breathing was able to remove it. Bleeding following controlled with slight pressure and ice pack. Stoma measuring about 44 mm. Coloplast soft convex pouch placed using heat of hand to seal. Good seal obtained. Patients output red/orange and after discussion patient had eaten red velvet cake and orange sherbet. Brown stool and mucus also noted. Patients pouch with slight popping off to the superior edge following pouch placement notified nurse patient could utilize pink tape to assist with sealing the edges if not leaking, or switch to the Convatec pouch with a director of mobile marketing convexity which may fit better for the patient. Patient sent home with Coloplast soft convex pouches, Convatec pouches and yudy in case difficulty with pouch adherence occurs due to slight crease medially and post op swelling. Discussed with patient to make a clinic appointment on the day of post op appointment so she does not have to drive over two hours on different days. Discussed the clinic is a good resource even if it is for reassurance that the patient is doing the correct things/all is working well. Patient and mother with a good understanding of all concepts discussed as well as pouch changing. Patient has been emptying the pouch independently. Additional supplies left for patient for discharge. Script uploaded this morning and CM notified. Recommendation and/or education: RLQ Loop Ileostomy: Remove pouch with adhesive remover Wash with warm water and pat dry If wet, denuded skin, apply stom adhesive powder and dust off extra Apply pouch, cut to fit close to stoma, use heat of hand to seal Empty when 1/2 to 1/3 full. Change 2 times weekly or if leaking Optimize nutrition to improve skin and wound outcomes. Increase protein intake as tolerated. Consider supplemental zinc, vitamin C (or multivitamin) to promote wound healing. Discussed these bueno points: Remove pouch with warm water and a wash cloth. Wash with warm water or soap and water (no lotion) and pat dry. Monitor skin, sutures, and stoma color. Use Coloplast pouch, cut to fit close to stoma. Use heat of your hand over pouch to seal. Empty when 1/2 to 1/3 full, about 4-6 times daily. Change 2 times weekly or if leaking. Use the ostomy belt as needed for stabilizing pouch following traci removal while utilizing convexity. Normal output is 600-800 ml is 24 hours. High output is over 1.2L in 24 hours. Can get dehydrated. You may need to stay on medications to help control stool. Foods to avoid with an ileostomy, walked through entire food chart Date Date INTRODUCTION / POD 01/18 Introduce self and role of WOC team 01/18 Assess pouch and stoma, change pouch if leaking. If ileal conduit, make sure urine is being produced from both stents 01/18 Drop off supplies, teaching information-remove food chart from folder for urostomy patients 01/18 Set up time/appt for pouch change and lesson POD 2- patient and/or family Date Date LESSON ONE / POD 01/18 01/19 Pouch change with lesson 01/18 01/19 Assess stoma, skin and muco cutaneous junction 01/18 01/19 Demonstrate and teach back how to empty pouch 01/19 01/19 Prescription typed-take image for chart 01/18 01/19 Signs and symptoms of problems, Interventions, when to call MD 01/19 Review factors related to medication 01/18 01/19 Instruct patient on HHC, WOC contact information 01/18 01/19 Discuss dietary and fluid guidelines for ostomy 01/18 01/19 Review how to order supplies Date Date LESSON TWO / POD Assess pouch adherence and stoma Review signs and symptoms of problems, interventions, when to call MD Review prescription, ordering supplies, WOC follow up (clinic or with MD) Review night drainage connection (urostomy) 01/19 Discuss management of gas and odor- 01/19 Review dietary and fluid guideline 01/19 Discuss convexity and belt if needed Date Date LESSON THREE / POD 01/19 Pouch change with lesson, patient/family assisting Have patient perform most aspects of pouch change-removing, cleansing, cutting, applying if possible Review night drainage, dietary guidelines, signs and symptoms of problems, interventions, when to call MD If patient has questions regarding ostomies, can call the [place] WO / ET nursing office, . If patient needs to schedule an outpatient appointment with the WOC/ ET nurse, they can call at the outpatient ostomy clinic at the [facility] Ostomy Support Group Thursday of every month 5:00-6:00pm [facility], 2nd floor [address] [address] Online or In Person Available This group is open to individuals who have or are scheduled to undergo ostomy surgery (creation of a stoma for bowel/bladder function) and their caregivers. Facilitated by licensed professionals at [facility] A one-time registration is required. To register, scan the QR code or visit [email or web address] Call [facility] [employer] [facility] at [phone] for more information. See image(s) below: Picture did not save Bed Surface: Standard mattress. Saman Skin Assessment: Saman Risk Assessment Sensory Perception: 4-->no impairment Moisture: 4-->rarely moist Activity: 4-->walks frequently Mobility: 4-->no limitation Nutrition: 4-->excellent Friction and Shear: 3-->no apparent problem Saman Score: 23 Saman Score: Saman Score: 23 Body mass index is 26.55 kg/m . Total time spent in assessment and treatment of patient: 75 minutes spent providing patient care. LABS: Albumin Date Value Ref Range Status 09/22/2024 3.8 3.5 - 5.0 g/dL Final No results found for: PREALBUMIN Ostomy Documentation: 01/19/25 1000 Ostomy 01/17/25 1502 RLQ;medial loop ileostomy Placement Date/Time: 01/17/25 1502 Present On Admission : no Ostomy Type: ileostomy Location: RLQ;medial Ileostomy Type: loop ileostomy Stoma Appearance red;moist;protruding above skin level Peristomal Assessment pink;dry Stomal Appliance 1-piece;intact;changed Date Appliance Changed 01/19/25 Treatment cleansed with water;convex wafer Stoma Function stool;flatus Stool Output (mL) 50 Plan Problem ileostomy, marked Current Plan lesson, second Visit Type Consult with RN WOCT Visit Frequency Fri Last Date Seen 01/19/25 Past Medical History[1] Past Surgical History[2] RN notified of assessment and plan. Please page #[phone] or reconsult with any further needs. 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, adalimumab) Pulmonary nodule 09/01/2023 Pulmonary nodules [2] Past Surgical History: Procedure Laterality Date ILEOSTOMY JEJUNOSTOMY NON-TUBE LAPAROSCOPIC N/A 01/17/2025 Laterality: N/A; Surgeon: Clifford Rodas MD; Location: [facility] MAIN OR EXAM UNDER ANESTHESIA ANORECTAL N/A 11/02/2024 Laterality: N/A; Surgeon: Clifford Rodas MD; Location: [facility] MAIN OR SIGMOIDOSCOPY DIAGNOSTIC N/A 11/02/2024 Laterality: N/A; Surgeon: Clifford Rodas MD; Location: [facility] MAIN OR SECTION 09/03/2023 APPENDECTOMY COLECTOMY partial TONSILLECTOMY ADENOIDECTOMY Problem: Adult Inpatient Plan of Care Goal: Plan of Care Review Outcome: Adequate for Discharge Goal: Patient-Specific Goal (Individualized) Outcome: Adequate for Discharge Goal: Absence of Hospital-Acquired Illness or Injury Outcome: Adequate for Discharge Goal: Readiness for Transition of Care Outcome: Adequate for Discharge Note: Pt understanding of self-management for new ostomy bag Problem: Adult Inpatient Plan of Care Goal: Optimal Comfort and Wellbeing Outcome: Progressing Images from the original note were not included. WOC/ET Nursing Consult/Evaluation Note Evaluated [place] for ostomy located in RLQ See H&P for more information Description of stoma: RLQ Loop Ileostomy: previous post op pouch gently removed with adhesive releaser with 25 ml liquid stool in pouch and flatus noted. Stoma and peristomal skin cleansed with water. Stoma red moist protruding above skin level with white traci in place. Stoma in a creased area and may have problems with leaking while the traci remains in place and a flat pouch is utilized but with convexity will have better outcomes. Stoma measuring about 41 mm with traci in place, cut larger to fit the traci and stoma. Coloplast flat pouch placed using heat of hand to seal. Good seal obtained. Will continue to follow for education, pouch changes and traci removal prior to discharge. Recommendation and/or education: RLQ Loop Ileostomy: Remove pouch with adhesive remover Wash with warm water and pat dry If wet, denuded skin, apply stom adhesive powder and dust off extra Apply pouch, cut to fit close to stoma, use heat of hand to seal Empty when 1/2 to 1/3 full. Change 2 times weekly or if leaking Optimize nutrition to improve skin and wound outcomes. Increase protein intake as tolerated. Consider supplemental zinc, vitamin C (or multivitamin) to promote wound healing. Discussed these bueno points: Remove pouch with warm water and a wash cloth. Wash with warm water or soap and water (no lotion) and pat dry. Monitor skin, sutures, and stoma color. Use Coloplast pouch, cut to fit close to stoma. Use heat of your hand over pouch to seal. Empty when 1/2 to 1/3 full, about 4-6 times daily. Change 2 times weekly or if leaking. Use the ostomy belt as needed for stabilizing pouch following traci removal while utilizing convexity. Normal output is 600-800 ml is 24 hours. High output is over 1.2L in 24 hours. Can get dehydrated. You may need to stay on medications to help control stool. Foods to avoid with an ileostomy, walked through entire food chart Date Date INTRODUCTION / POD 01/18 Introduce self and role of WOC team 01/18 Assess pouch and stoma, change pouch if leaking. If ileal conduit, make sure urine is being produced from both stents 01/18 Drop off supplies, teaching information-remove food chart from folder for urostomy patients 01/18 Set up time/appt for pouch change and lesson POD 2- patient and/or family Date Date LESSON ONE / POD 01/18 Pouch change with lesson 01/18 Assess stoma, skin and muco cutaneous junction 01/18 Demonstrate and teach back how to empty pouch Prescription typed-take image for chart 01/18 Signs and symptoms of problems, Interventions, when to call MD Review factors related to medication 01/18 Instruct patient on C, WOC contact information 01/18 Discuss dietary and fluid guidelines for ostomy 01/18 Review how to order supplies Date Date LESSON TWO / POD Assess pouch adherence and stoma Review signs and symptoms of problems, interventions, when to call MD Review prescription, ordering supplies, WOC follow up (clinic or with MD) Review night drainage connection (urostomy) Discuss management of gas and odor- Review dietary and fluid guideline Discuss convexity and belt if needed Date Date LESSON THREE / POD Pouch change with lesson, patient/family assisting Have patient perform most aspects of pouch change-removing, cleansing, cutting, applying if possible Review night drainage, dietary guidelines, signs and symptoms of problems, interventions, when to call MD If patient has questions regarding ostomies, can call the [place] WO / ET nursing office, . If patient needs to schedule an outpatient appointment with the WOC/ ET nurse, they can call [phone] at the outpatient ostomy clinic at the [facility] Ostomy Support Group Second Thursday of every month 5:00-6:00pm [facility], 2nd floor [address] [address] Online or In Person Available This group is open to individuals who have or are scheduled to undergo ostomy surgery (creation of a stoma for bowel/bladder function) and their caregivers. Facilitated by licensed professionals at [facility] A one-time registration is required. To register, scan the QR code or visit [email or web address] Call [facility] [employer] [facility] at [phone] for more information. See image(s) below: Bed Surface: Standard mattress. Saman Skin Assessment: Saman Risk Assessment Sensory Perception: 4-->no impairment Moisture: 4-->rarely moist Activity: 4-->walks frequently Mobility: 4-->no limitation Nutrition: 4-->excellent Friction and Shear: 3-->no apparent problem Saman Score: 23 Saman Score: Saman Score: 23 Body mass index is 26.55 kg/m . Total time spent in assessment and treatment of patient: 60 minutes spent providing patient care. LABS: Albumin Date Value Ref Range Status 09/22/2024 3.8 3.5 - 5.0 g/dL Final No results found for: PREALBUMIN Ostomy Documentation: 01/18/25 1350 Ostomy 01/17/25 1502 RLQ;medial loop ileostomy Placement Date/Time: 01/17/25 1502 Present On Admission : no Ostomy Type: ileostomy Location: RLQ;medial Ileostomy Type: loop ileostomy Wound Image Stoma Appearance moist;red;bridge/traci in place Peristomal Assessment dry Stomal Appliance 1-piece;intact;changed;per protocol/policy Date Appliance Changed 01/18/25 Stoma Function stool;flatus Tolerance no signs/symptoms of discomfort Plan Problem ileostomy, marked Current Plan lesson, first Visit Type Consult with RN WOCT Visit Frequency Catalina Last Date Seen 01/18/25 Past Medical History[1] Past Surgical History[2] RN notified of assessment and plan. Please page #[phone] or reconsult with any further needs. 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, adalimumab) Pulmonary nodule 09/01/2023 Pulmonary nodules [2] Past Surgical History: Procedure Laterality Date ILEOSTOMY JEJUNOSTOMY NON-TUBE LAPAROSCOPIC N/A 01/17/2025 Laterality: N/A; Surgeon: Clifford Rodas MD; Location: [facility] MAIN OR EXAM UNDER ANESTHESIA ANORECTAL N/A 11/02/2024 Laterality: N/A; Surgeon: Clifford Rodas MD; Location: [facility] MAIN OR SIGMOIDOSCOPY DIAGNOSTIC N/A 11/02/2024 Laterality: N/A; Surgeon: Clifford Rodas MD; Location: [facility] MAIN OR SECTION 09/03/2023 APPENDECTOMY COLECTOMY partial TONSILLECTOMY ADENOIDECTOMY Problem: Adult Inpatient Plan of Care Goal: Plan of Care Review Outcome: Progressing Goal: Patient-Specific Goal (Individualized) Outcome: Progressing Goal: Absence of Hospital-Acquired Illness or Injury Outcome: Progressing Goal: Optimal Comfort and Wellbeing Outcome: Progressing Goal: Readiness for Transition of Care Outcome: Progressing Images from the original note were not included. On admission to [facility], from OR a dual RN initial assessment of skin condition was performed by Michael Brooks RN and Jojo TATUM. Skin Assessment: Skin not within defined limits. - Wound(s) identified: Yes - Photo taken and uploaded into notes in IHIS: Yes Saman Score: 23 LDA Added:No Michael Brooks RN Images from the original note were not included. SURGERY - POST OP PLAN OF CARE [place] is now status post: laparoscopic diverting loop ileostomy FINDINGS Inflamed ileum consistent with known inflammatory bowel disease. RLQ diverting loop ileostomy. Plan: Diet: Clear liquids then per CERAS IV Fluids: lactated ringers until adequate PO Antibiotics: Preoperative antibiotics received, no additional required Pain Control: Multimodal. Received preoperative blocks by anesthesia team. Prophylaxis: OK for VTE chemoprophylaxis -- WOCRN consultation for new ostomy -- Stoma traci out before discharge -- Post-operative check to be completed by covering surgical team Please page the Colorectal Surgery pager with questions or concerns. (Found in QGenda / WebExchange) ALL URGENT ISSUES SHOULD BE PAGED TO THE ABOVE PAGER - IHIS chat is not a reliable method of communication with a surgical service at any time. - The person who wrote this note may be in the operating room, off service, post call, or otherwise unavailable. Shaq Baires MD General Surgery Images from the original note were not included. WOC/ET Nursing Note: Patient seen for pre-op stoma marking. Assessed in sitting and lying positions. Marked with an X using a surgical marker. Marked in R and L Lower quadrants; within rectus muscle, within field of vision, and on flat pouching surfaces. Ribs are lower in abdomen, making high packer less optimal. Assisted by JORGE Hernandez. Will follow for teaching after ostomy created. 01/17/25 1100 Plan Problem stoma marking WOCT Visit Frequency Wed Last Date Seen 01/17/25 1125- Pagebabar Bermudez MD- J17 [place]: pt ready for block ([facility]). [id number] reed. documented in this encounter [facility] 01-19-2025 Nurse Note Patient discharged, Ivs removed. [facility]charge paperwork [facility] with patient and her parents. [facility] of Present illness Narrative Care Management Discharge Note Selected Continued Care - Admitted Since 01/17/2025 Durable Medical Equipment Coordination complete. Service Provider Services Address Phone Fax Patient Preferred [employer] [address] [facility] [id number] [phone] -- Patient medically stable for discharge per physician/medical team. Patient/Boiler Welder remain in agreement with the discharge plan. AVS, ÁLVARO and follow-up complete from CM standpoint. BMD and bedside RN updated. Petty Nolasco RRT Clinical Trackmobile Operator Please note that I am a float Trackmobile Operator. For primary Trackmobile Operatorcontact officer, or for up to date coverage, please contact /DEDE main office at [phone]. CM notified by human resource assistant that patient is to discharge today. CM has initiated referrals for DME ostomy supplies [facility]. MSG sent to resident notifying that supplies need arranged prior to DC and to also request signature on ostomy script. 1307: Signed ostomy script obtained and uploaded to referral. Awaiting DME providers to review and accept. 1349: CM provide choice list, [employer] is the only DME company that responded. Patient is agreeable to using this company. AVS updated. wind farm support specialist to send with supplies to allow for [employer] to process and deliver. Team updated. Petty Nolasco RRT Clinical Trackmobile Operator Please note that I am a float Trackmobile Operator. For primary Trackmobile Operatorcontact officer, or for up to date coverage, please contact / main office at [phone]. Discharge Planning Assessment Is the patient able to participate in the assessment?: Yes Care Management Plan Lives with boyfriend and young son. Plans to discharge to home. Declines [facility] for ostomy care. States worked with wound nurse and feels confident she will be able to manage ostomy on her own. [facility] wound nurse told her she would order supplies for pt. No DME needs. Transportation home via family. Introduced self to pt and family and discussed role of machine adjuster leader case trim and discharge planning process. 2. Anticipate pt to be discharged to home with ostomy supplies. 3. Will coordinate follow up appointments for primary care and specialists as determined. 4. Trackmobile Operator to continue on going assessment of potential needs/services as pt progresses. Will assist with care coordination and dc planning as needed. 5. Trackmobile Operator informed patient and family they will need to make the necessary appointments that are placed on the AVS by the primary team. Initial Discharge Planning Expected Discharge Disposition: Home Transportation Available for Discharge: Family or Friend Anticipated DME: other (ostomy supplies) Anticipated Services at Discharge: Wound/drain/line/ostomy-supplies, Outpatient follow up Patient Assessment Completed: Initial Legal Next of Kin Does the patient have a Guardian?: No Spouse: No Adult Child(zack), List All Adult Children: No Parent(s) - List All Living Parents: Yes Name and Contact information: Angelique Hatfield [phone] Would you like to add additional parents?: No Reviewed and Updated in Demographics? : Yes Advanced Care Planning Has the patient completed Advance Directives?: Not Completed Referral to Social Work for Advance Care Planning? : Patient Declines Medication Management Does the patient have prescription insurance coverage? : Yes Is the patient on Anticoagulation? : No [address] [address] [place] [address] - [address] [address] [facility] [address] Living Environment and Support System Is the patient from a facility or fpc?: No Living Environment: House Patient Caregiving Responsibilities: Self, Child(zack) Patient-identified caregiver/support network: Family, Friends Who does the patient identify as a teachable caregiver(s)?: Other (boyfriend, mom) Services Does the patient use a home health or hospice agency?: No Current with dialysis?: No Does the patient use any community programs or services?: No Does patient use DME? : none Does the patient use oxygen?: No Does patient use medical supplies? : none Anticipated Changes Related to Illness/Injury? : Yes (Will need to learn care of new ileostomy) Inability to care for self?: No Inability to care for dependents?: No Inability to return to school/work?: N/A Initial ADLs Prior to Arrival What is the patient's reported baseline physical functioning prior to this acute illness?: independent What is the patient's reported baseline cognitive functioning prior to this acute illness?: independent Is the patient's baseline functioning changed by this acute illness? : No Concerns with patient being able to care for themselves at home? : No Latesha Joe RN, BSN Clinical Trackmobile Operator *Please note that I am a float machine adjuster leader case trim and that I may not cover the same service everyday. Please call the main case management office at for up to date coverage. Inpatient Public Relations Representative/Spiritual Care Note Reason for Visit: Rounding Visited With: patientKings; and family. Encounter/Assessment: Public Relations Representative met with patientKings, to introduce self, assess needs and describe the role of spiritual care at [facility]. Discussion included exploration of visit. Interventions: Built rapport and established a supportive relationship Shared information about spiritual care services and wrapper hand availability Outcomes: Patient expressed appreciation for visit and information about spiritual care services and demonstrated [reduced distress/progression to understanding/new normal/focus on present/acceptance]. Plan: No specific follow-up needed at this time OR Chaplains will follow-up as able Patient/family encouraged to request spiritual care as needed. Chaplains are available in-house 24 hours a day and 7 days a week. For urgent matters in [facility] [place], please page [phone]; for the [facility], please page [phone]. If the request is not urgent, please enter a consult. Consults are responded to within 24 hours. Gricel Duffy Dmin, Trust Clerk Parking Lot Signaler; [facility], Harshad [email or web address].Pending sale to [facility] (Nichol Regan Ross [employer], Miguel Patricia) 03/11 On-Call Pager: [phone] Armen 03/11 On-Call Pager: [phone] Flowsheet Documentation: 01/18/25 1437 Clinical Encounter Type Visited With Patient and family together Visit Type Introduction Pastoral Time Spent 15 min Spiritual Assessment Emotional Observation Coping well Support Observation By Family;Strong support Plan of Care Continue Visiting PRN Surgery Post-Op Check Note Kings Hatfield is a 24 y.o. yr old female, who is now POD#0 s/p Procedure(s) (LRB): ILEOSTOMY JEJUNOSTOMY NON-TUBE LAPAROSCOPIC (N/A). There were no complications to the procedure, and the patient tolerated it well. Arrived to the floor in stable condition. Subjective: Patient resting comfortably in bed upon arrival, participatory in clinical exam. Pain and nausea well controlled on current regimen. Patient is breathing comfortably on RA and denies any SOB or chest pain. Patient has already voided and ambulated spontaneously. No suresh. Ostomy bag with minimal serosang output, no gas or stool seen. Stoma appears healthy, traci in place. Family is at the bedside and has no questions or concerns at this time. Objective: BP 109/85 (BP Location: Left arm, BP Position: Lying) Pulse 52 Temp 97.2 F (36.2 C) (Oral) Resp 18 Ht 1.6 m (5' 3 ) Wt 68 kg (149 lb 14.4 oz) SpO2 97% BMI 26.55 kg/m Smoking Status Never Exam: GEN: NAD, laying comfortably in bed CV: RRR, HDS Pulm: No respiratory distress Abd: Soft, appropriately tender, mildly-distended. Laparoscopic incisions clean, dry, and intact with dermabond. Ostomy bag with minimal SS output, no gas or stool. Stoma appears pink, slightly congested but healthy, traci in place. Ext: No LE swelling/edema, distal pulses intact Neuro: No focal deficits Assessment: 24 y.o. yr old female now POD 0 s/p Procedure(s) (LRB): ILEOSTOMY JEJUNOSTOMY NON-TUBE LAPAROSCOPIC (N/A). Currently stable on the floor, progressing appropriately in post-op course. Plan: - DIET CLEAR LIQUID DIET REGULAR - Pain: multimodal - Suresh: no, voiding - mIVF: LR - Oxygen: on RA - Encourage ambulation - up & OOB when awake, as tolerated - SCDs in place - Monitor for ROBF; strict I/Os - Patient and RN advised to call with any concerns - Will continue to monitor Y. Shay Condon MD General Surgery PGY1 Pager [phone] documented in this encounter [facility] 01-19-2025 Nurse Note Images from the original note were not included. WOC/ET Nursing Consult/Evaluation Note Evaluated Kings Hatfield for ostomy located in RLQ See H&P for more information Description of stoma: RLQ Loop Ileostomy: previous pouch gently removed with adhesive releaser with 25 ml liquid stool in pouch and flatus noted. Stoma and peristomal skin cleansed with water. Stoma red moist protruding above skin level with white traci in place. Traci removed with slight tension but with deep breathing was able to remove it. Bleeding following controlled with slight pressure and ice pack. Stoma measuring about 44 mm. Coloplast soft convex pouch placed using heat of hand to seal. Good seal obtained. Patients output red/orange and after discussion patient had eaten red velvet cake and orange sherbet. Brown stool and mucus also noted. Patients pouch with slight popping off to the superior edge following pouch placement notified nurse patient could utilize pink tape to assist with sealing the edges if not leaking, or switch to the Convatec pouch with a director of mobile marketing convexity which may fit better for the patient. Patient sent home with Coloplast soft convex pouches, Convatec pouches and yudy in case difficulty with pouch adherence occurs due to slight crease medially and post op swelling. Discussed with patient to make a clinic appointment on the day of post op appointment so she does not have to drive over two hours on different days. Discussed the clinic is a good resource even if it is for reassurance that the patient is doing the correct things/all is working well. Patient and mother with a good understanding of all concepts discussed as well as pouch changing. Patient has been emptying the pouch independently. Additional supplies left for patient for discharge. Script uploaded this morning and CM notified. Recommendation and/or education: RLQ Loop Ileostomy: Remove pouch with adhesive remover Wash with warm water and pat dry If wet, denuded skin, apply stom adhesive powder and dust off extra Apply pouch, cut to fit close to stoma, use heat of hand to seal Empty when 1/2 to 1/3 full. Change 2 times weekly or if leaking Optimize nutrition to improve skin and wound outcomes. Increase protein intake as tolerated. Consider supplemental zinc, vitamin C (or multivitamin) to promote wound healing. Discussed these bueno points: Remove pouch with warm water and a wash cloth. Wash with warm water or soap and water (no lotion) and pat dry. Monitor skin, sutures, and stoma color. Use Coloplast pouch, cut to fit close to stoma. Use heat of your hand over pouch to seal. Empty when 1/2 to 1/3 full, about 4-6 times daily. Change 2 times weekly or if leaking. Use the ostomy belt as needed for stabilizing pouch following traci removal while utilizing convexity. Normal output is 600-800 ml is 24 hours. High output is over 1.2L in 24 hours. Can get dehydrated. You may need to stay on medications to help control stool. Foods to avoid with an ileostomy, walked through entire food chart Date Date INTRODUCTION / POD 01/18 Introduce self and role of WOC team 01/18 Assess pouch and stoma, change pouch if leaking. If ileal conduit, make sure urine is being produced from both stents 01/18 Drop off supplies, teaching information-remove food chart from folder for urostomy patients 01/18 Set up time/appt for pouch change and lesson POD 2- patient and/or family Date Date LESSON ONE / POD 01/18 01/19 Pouch change with lesson 01/18 01/19 Assess stoma, skin and muco cutaneous junction 01/18 01/19 Demonstrate and teach back how to empty pouch 01/19 01/19 Prescription typed-take image for chart 01/18 01/19 Signs and symptoms of problems, Interventions, when to call MD 01/19 Review factors related to medication 01/18 01/19 Instruct patient on HHC, WOC contact information 01/18 01/19 Discuss dietary and fluid guidelines for ostomy 01/18 01/19 Review how to order supplies Date Date LESSON TWO / POD Assess pouch adherence and stoma Review signs and symptoms of problems, interventions, when to call MD Review prescription, ordering supplies, WOC follow up (clinic or with MD) Review night drainage connection (urostomy) 01/19 Discuss management of gas and odor- 01/19 Review dietary and fluid guideline 01/19 Discuss convexity and belt if needed Date Date LESSON THREE / POD 01/19 Pouch change with lesson, patient/family assisting Have patient perform most aspects of pouch change-removing, cleansing, cutting, applying if possible Review night drainage, dietary guidelines, signs and symptoms of problems, interventions, when to call MD If patient has questions regarding ostomies, can call the [facility] / ET nursing office, . If patient needs to schedule an outpatient appointment with the WO/ ET nurse, they can call [phone] at the outpatient ostomy clinic at the [facility] Ostomy Support Group Second Thursday of every month 5:00-6:00pm [facility], 2nd floor [address] [place] [address] Online or In Person Available This group is open to individuals who have or are scheduled to undergo ostomy surgery (creation of a stoma for bowel/bladder function) and their caregivers. Facilitated by licensed professionals at [facility] A one-time registration is required. To register, scan the QR code or visit [email or web address] Call [facility] [employer] [facility] at [phone] for more information. See image(s) below: Picture did not save Bed Surface: Standard mattress. Saman Skin Assessment: Saman Risk Assessment Sensory Perception: 4-->no impairment Moisture: 4-->rarely moist Activity: 4-->walks frequently Mobility: 4-->no limitation Nutrition: 4-->excellent Friction and Shear: 3-->no apparent problem Saman Score: 23 Saman Score: Saman Score: 23 Body mass index is 26.55 kg/m . Total time spent in assessment and treatment of patient: 75 minutes spent providing patient care. LABS: Albumin Date Value Ref Range Status 09/22/2024 3.8 3.5 - 5.0 g/dL Final No results found for: PREALBUMIN Ostomy Documentation: 01/19/25 1000 Ostomy 01/17/25 1502 RLQ;medial loop ileostomy Placement Date/Time: 01/17/25 1502 Present On Admission : no Ostomy Type: ileostomy Location: RLQ;medial Ileostomy Type: loop ileostomy Stoma Appearance red;moist;protruding above skin level Peristomal Assessment pink;dry Stomal Appliance 1-piece;intact;changed Date Appliance Changed 01/19/25 Treatment cleansed with water;convex wafer Stoma Function stool;flatus Stool Output (mL) 50 Plan Problem ileostomy, marked Current Plan lesson, second Visit Type Consult with RN WOCT Visit Frequency Fri Last Date Seen 01/19/25 Past Medical History[1] Past Surgical History[2] RN notified of assessment and plan. Please page #[phone] or reconsult with any further needs. 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, adalimumab) Pulmonary nodule 09/01/2023 Pulmonary nodules [2] Past Surgical History: Procedure Laterality Date ILEOSTOMY JEJUNOSTOMY NON-TUBE LAPAROSCOPIC N/A 01/17/2025 Laterality: N/A; Surgeon: Clifford Rodas MD; Location: [facility] MAIN OR EXAM UNDER ANESTHESIA ANORECTAL N/A 11/02/2024 Laterality: N/A; Surgeon: Clifford Rodas MD; Location: [facility] MAIN OR SIGMOIDOSCOPY DIAGNOSTIC N/A 11/02/2024 Laterality: N/A; Surgeon: Clifford Rodas MD; Location: [facility] MAIN OR SECTION 09/03/2023 APPENDECTOMY COLECTOMY partial TONSILLECTOMY ADENOIDECTOMY [facility] 01-19-2025 Plan of care note Problem: Adult Inpatient Plan of Care Goal: Plan of Care Review Outcome: Adequate for Discharge Goal: Patient-Specific Goal (Individualized) Outcome: Adequate for Discharge Goal: Absence of Hospital-Acquired Illness or Injury Outcome: Adequate for Discharge Goal: Readiness for Transition of Care Outcome: Adequate for Discharge Note: Pt understanding of self-management for new ostomy bag Problem: Adult Inpatient Plan of Care Goal: Optimal Comfort and Wellbeing Outcome: Progressing [facility] 01-18-2025 Nurse Note Images from the original note were not included. WOC/ET Nursing Consult/Evaluation Note Evaluated Kings Hatfield for ostomy located in RLQ See H&P for more information Description of stoma: RLQ Loop Ileostomy: previous post op pouch gently removed with adhesive releaser with 25 ml liquid stool in pouch and flatus noted. Stoma and peristomal skin cleansed with water. Stoma red moist protruding above skin level with white traci in place. Stoma in a creased area and may have problems with leaking while the traci remains in place and a flat pouch is utilized but with convexity will have better outcomes. Stoma measuring about 41 mm with [address]aci in place, cut larger to fit the traci and stoma. Coloplast flat pouch placed using heat of hand to seal. Good seal obtained. Will continue to follow for education, pouch changes and traci removal prior to discharge. Recommendation and/or education: RLQ Loop Ileostomy: Remove pouch with adhesive remover Wash with warm water and pat dry If wet, denuded skin, apply stom adhesive powder and dust off extra Apply pouch, cut to fit close to stoma, use heat of hand to seal Empty when 1/2 to 1/3 full. Change 2 times weekly or if leaking Optimize nutrition to improve skin and wound outcomes. Increase protein intake as tolerated. Consider supplemental zinc, vitamin C (or multivitamin) to promote wound healing. Discussed these bueno points: Remove pouch with warm water and a wash cloth. Wash with warm water or soap and water (no lotion) and pat dry. Monitor skin, sutures, and stoma color. Use Coloplast pouch, cut to fit close to stoma. Use heat of your hand over pouch to seal. Empty when 1/2 to 1/3 full, about 4-6 times daily. Change 2 times weekly or if leaking. Use the ostomy belt as needed for stabilizing pouch following traci removal while utilizing convexity. Normal output is 600-800 ml is 24 hours. High output is over 1.2L in 24 hours. Can get dehydrated. You may need to stay on medications to help control stool. Foods to avoid with an ileostomy, walked through entire food chart Date Date INTRODUCTION / POD 01/18 Introduce self and role of WOC team 01/18 Assess pouch and stoma, change pouch if leaking. If ileal conduit, make sure urine is being produced from both stents 01/18 Drop off supplies, teaching information-remove food chart from folder for urostomy patients 01/18 Set up time/appt for pouch change and lesson POD 2- patient and/or family Date Date LESSON ONE / POD 01/18 Pouch change with lesson 01/18 Assess stoma, skin and muco cutaneous junction 01/18 Demonstrate and teach back how to empty pouch Prescription typed-take image for chart 01/18 Signs and symptoms of problems, Interventions, when to call MD Review factors related to medication 01/18 Instruct patient on HHC, WOC contact information 01/18 Discuss dietary and fluid guidelines for ostomy 01/18 Review how to order supplies Date Date LESSON TWO / POD Assess pouch adherence and stoma Review signs and symptoms of problems, interventions, when to call MD Review prescription, ordering supplies, WOC follow up (clinic or with MD) Review night drainage connection (urostomy) Discuss management of gas and odor- Review dietary and fluid guideline Discuss convexity and belt if needed Date Date LESSON THREE / POD Pouch change with lesson, patient/family assisting Have patient perform most aspects of pouch change-removing, cleansing, cutting, applying if possible Review night drainage, dietary guidelines, signs and symptoms of problems, interventions, when to call MD If patient has questions regarding ostomies, can call the [place] WO / ET nursing office, . If patient needs to schedule an outpatient appointment with the WOC/ ET nurse, they can call at the outpatient ostomy clinic at the [facility] Ostomy Support Group Second Thursday of every month 5:00-6:00pm [facility], 2nd floor [address] [address] Online or In Person Available This group is open to individuals who have or are scheduled to undergo ostomy surgery (creation of a stoma for bowel/bladder function) and their caregivers. Facilitated by licensed professionals at [facility] A one-time registration is required. To register, scan the QR code or visit [email or web address] Call [facility] at [phone] for more information. See image(s) below: Bed Surface: Standard mattress. Saman Skin Assessment: Saman Risk Assessment Sensory Perception: 4-->no impairment Moisture: 4-->rarely moist Activity: 4-->walks frequently Mobility: 4-->no limitation Nutrition: 4-->excellent Friction and Shear: 3-->no apparent problem Saman Score: 23 Saman Score: Saman Score: 23 Body mass index is 26.55 kg/m . Total time spent in assessment and treatment of patient: 60 minutes spent providing patient care. LABS: Albumin Date Value Ref Range Status 09/22/2024 3.8 3.5 - 5.0 g/dL Final No results found for: PREALBUMIN Ostomy Documentation: 01/18/25 1350 Ostomy 01/17/25 1502 RLQ;medial loop ileostomy Placement Date/Time: 01/17/25 1502 Present On Admission : no Ostomy Type: ileostomy Location: RLQ;medial Ileostomy Type: loop ileostomy Wound Image Stoma Appearance moist;red;bridge/traci in place Peristomal Assessment dry Stomal Appliance 1-piece;intact;changed;per protocol/policy Date Appliance Changed 01/18/25 Stoma Function stool;flatus Tolerance no signs/symptoms of discomfort Plan Problem ileostomy, marked Current Plan lesson, first Visit Type Consult with RN WOCT Visit Frequency Catalina Last Date Seen 01/18/25 Past Medical History[1] Past Surgical History[2] RN notified of assessment and plan. Please page #[phone] or reconsult with any further needs. 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, adalimumab) Pulmonary nodule 09/01/2023 Pulmonary nodules [2] Past Surgical History: Procedure Laterality Date ILEOSTOMY JEJUNOSTOMY NON-TUBE LAPAROSCOPIC N/A 01/17/2025 Laterality: N/A; Surgeon: Clifford Rodas MD; Location: [facility] MAIN OR EXAM UNDER ANESTHESIA ANORECTAL N/A 11/02/2024 Laterality: N/A; Surgeon: Clifford Rodas MD; [facility] SIGMOIDOSCOPY DIAGNOSTIC N/A 11/02/2024 Laterality: N/A; Surgeon: Clifford Rodas MD; Location: [facility] MAIN OR SECTION 09/03/2023 APPENDECTOMY COLECTOMY partial TONSILLECTOMY ADENOIDECTOMY [facility] 01-18-2025 Hospital Discharge instructions Dari Rene MD - 01/18/2025 9:14 AM EDT Images from the original note were not included. Learning About Safely Storing and Getting Rid of Opioid Pills and Patches Why are opioid pills and patches dangerous? Opioids are medicines used to relieve moderate to severe pain. They may be used for a short time for pain, such as after surgery. Or they may be used to relieve long-term pain. When your doctor prescribes an opioid, you're getting strong medicine. It's important to protect others from its risks. Opioid medicine can cause serious problems, and even , if it's misused. Children and pets are at high risk when an opioid is kept within their reach. Opioid skin patches, such as fentanyl, are the most dangerous. Even a used patch still has a high dose of medicine in it. Small children have been killed by opioid patches they've found in the trash at home. Opioids can also be abused or stolen. Be sure to store your medicine in a safe and secure place. When you are done using opioid medicine, get rid of it right away, and in the safest way you can. How do you safely store opioid pills and patches? It's important to store opioids safely so that they aren't used by the wrong person. Your pain medicine is only for you to take. If someone else takes your medicine, it can harm that person. You can safely store your medicine. Follow these tips. Store pills and patches up high and out of sight. Keep them away from children and pets. Return the container to the same place each time you take your medicine. Try locking your opioid medicine in a cabinet. Make sure the bottles are closed tightly. If they have a safety cap, make sure that it's locked. Tighten the cap until you hear a click or can't twist it anymore. Keep track of how many pills or patches you have left. You may want to keep track in a notebook. Let the people who live with you know about your medicine. Tell them that it is only for you to take. If guests have opioid medicine with them, ask them to keep it safe. How do you safely get rid of opioid pills and patches? If you have opioid pills or patches that you are not going to use, get rid of them right away. The U.S. Food and Drug Administration (FDA) recommends that you take your opioid pills and patches to a drop-off box or take-back program that is authorized by the U.S. Drug Enforcement Administration (MEME). If you can't get to a MEME-authorized site right away and your medicine doesn't have specific disposal information (such as flushing), you can dispose of them in your household trash using these steps. Take the medicine out of its container. Mix it with something that tastes bad, such as cat litter or coffee grounds. Place the mixture in a sealed plastic bag, and put the bag in your household trash. Only flush your medicine down the toilet if you can't get to a MEME-approved site or if your medicine instructions state clearly to flush them. Go to www.fda.gov/Drugs/ResourcesForYou/C onsumers/BuyingUsingMedicineSafely/ EnsuringSafeUseofMedicine/SafeDispo salofMedicines/rgl017494.htm to see a list of medicines that should be flushed. Take special care with used opioid patches. As soon as you peel a patch off of your skin, fold it in half with the sticky sides together. Immediately take it to a MEME-authorized site or flush it down the toilet if a MEME-authorized site isn't available in your area. Do not throw them in the trash. Where can you go to learn more? To learn how and where to get rid of unused medicines in your area, ask your doctor or pharmacist for help. Your local trash and recycle center may have a drop-off site. You can also look online at the MEME's Diversion Control Division website (deadiversion.usdoj.gov) to find a disposal site near you. Or you can visit fda.gov and search for unused medicine disposal. Follow-up care is a bueno part of your treatment and safety. Be sure to make and go to all appointments, and call your doctor if you are having problems. It's also a good idea to know your test results and keep a list of the medicines you take. Where can you learn more? Go to http://www.[employer].edu/mireya maloney. Enter N709 in the search box to learn more about 'Learning About Safely Storing and Getting Rid of Opioid Pills and Patches.' Interested in seeing a video go to https://[employer]oodle.edu/video library to see all video content. Current as of: July 08, 2018 Content Version: 12.2 1043-8642 [employer]. Care instructions adapted under license by your healthcare professional. If you have questions about a medical condition or this instruction, always ask your healthcare professional. [employer] disclaims any warranty or liability for your use of this information. Dari Rene MD - 01/18/2025 9:14 AM EDT Activity No Driving for two weeks. No Driving while on pain medications. No lifting over 10 pounds for 6 weeks. No pushing, pulling or straining of abdominal muscles for 6 weeks. Activity as tolerated. Walking is encouraged however no strenuous exercise. You may shower. Do not take a tub bath, go swimming, or use a hot tub until instructed to do so. Dari Rene MD - 01/18/2025 9:14 AM EDT Regular Diet to help you maintain your health and control your weight. Choose healthy fats and oils such as canola or olive oils, and good sources of fiber and carbohydrates. Choose lean meats or vegetables proteins. Avoid adding salt to your foods. Increase daily intake of fruits and vegetables. You may find it easier to eat smaller meals throughout the day. Advance your diet as tolerated. Dari Rene MD - 01/18/2025 9:14 AM EDT COLORECTAL ADDITIONAL CONTACTS For Concerns During Weekend or Evening Hours: -If you have questions or concerns call and ask the ear machine operator to page the surgical supply assistant chemical reclamation equipment operator. Reminder: [employer] messaging goes unmonitored during evenings and weekends. Any concerns or questions during this time, please call using instructions above. Clinic Office Main Number: Colorectal Cancer: [phone] Colorectal Non-cancer: [phone] ENTEROSTOMAL THERAPY RN OSTOMY Clinic NOTIFY PHYSICIAN: SYMPTOMS WOUND INFECTION - Increase in pain in or around wound - Change in the amount of drainage, color or odor - Warmth in the tissues around the wound - Red streaks on the skin near the wound - Fever (temperature greater than 101 degrees F) - Incision separates or opens up UNRELIEVED PAIN - Increased or unrelieved pain NAUSEA/VOMITING - Nausea and vomiting that continues for more than 24 hours - Not able to keep medicine down - Not able to keep fluids down SYMPTOMS OF DEEP VEIN THROMBUS -Any Tender, Swollen, or Reddened Areas from Your Groin to Your Heels -Numbness or Tingling In Groin or Calf -The Skin on Your Leg Looks Pale or Blue or It Feels Cold To Touch -Numbness or Tingling In Groin or Calf -Any Shortness of Breath -Chest Pain -Fever or Chills SYMPTOMS OF GI BLEED Call your doctor or nurse if you have signs of slow blood loss such as: -Black tarry bowel movements -Cold hands and feet -Weakness -Dizzyness Call 911 if you suddenly have signs of blood loss such as: -Vomiting blood -Fast heart rate -Feeling faint or blacking out -Passing bright red blood from your rectum The following attachments cannot be sent through Care Everywhere.Ostomy Care (Greenlandic)Ostomy: How to Manage High Output (The Armen) (Greenlandic)documented in this encounter [facility] 01-18-2025 Plan of care note Problem: Adult Inpatient Plan of Care Goal: Plan of Care Review Outcome: Progressing Goal: Patient-Specific Goal (Individualized) Outcome: Progressing Goal: Absence of Hospital-Acquired Illness or Injury Outcome: Progressing Goal: Optimal Comfort and Wellbeing Outcome: Progressing Goal: Readiness for Transition of Care Outcome: Progressing [facility] 01-17-2025 Nurse Note Images from the original note were not included. [facility] to [facility], from OR a dual RN initial assessment of skin condition was performed by Michael Brooks RN and Jojo RN. Skin Assessment: Skin not within defined limits. - Wound(s) identified: Yes - Photo taken and uploaded into notes in IHIS: Yes Saman Score: 23 LDA Added:No Michael Brooks RN [facility] 01-17-2025 Plan of care note Images from the original note were not included. SURGERY - POST OP PLAN OF CARE [place] is now status post: laparoscopic diverting loop ileostomy FINDINGS Inflamed ileum consistent with known inflammatory bowel disease. RLQ diverting loop ileostomy. Plan: Diet: Clear liquids then per CERAS IV Fluids: lactated ringers until adequate PO Antibiotics: Preoperative antibiotics received, no additional required Pain Control: Multimodal. Received preoperative blocks by anesthesia team. Prophylaxis: OK for VTE chemoprophylaxis -- WOCRN consultation for new ostomy -- Stoma traci out before discharge -- Post-operative check to be completed by covering surgical team Please page the Colorectal Surgery pager with questions or concerns. (Found in QGenda / WebExchange) ALL URGENT ISSUES SHOULD BE PAGED TO THE ABOVE PAGER - IHIS chat is not a reliable method of communication with a surgical service at any time. - The person who wrote this note may be in the operating room, off service, post call, or otherwise unavailable. Shaq Bairse MD General Surgery [facility] Work Phone: 01-17-2025 Nurse Note Images from the original note were not included. WOC/ET Nursing Note: Patient seen for pre-op stoma marking. Assessed in sitting and lying positions. Marked with an X using a surgical marker. Marked in R and L Lower quadrants; within rectus muscle, within field of vision, and on flat pouching surfaces. Ribs are lower in abdomen, making high packer less optimal. Assisted by JORGE Hernandez. Will follow for teaching after ostomy created. 01/17/25 1100 Plan Problem stoma marking WOCT Visit Frequency Wed Last Date Seen 01/17/25 [facility] 01-17-2025 Nurse Note 1125- Jus Bermudez MD- J17 [place]: pt ready for block ([facility]). [id number] reed. [facility] 01-17-2025 Nurse Surgical operation note Patient denies hx of chemo and radiation. Patient denies metal or foreign objects in body. Patient denies hx of seizure or stroke. [facility] 01-17-2025 Nurse Note Patient denies hx of chemo and radiation. Patient denies metal or foreign objects in body. Patient denies hx of seizure or stroke. documented in this encounter [facility] 01-02-2025 History of Present illness Narrative WOC/ET Nursing Consult Note: Patient seen for pre-operative discussion for planned ileostomy. Discussed stoma appearance and function, timing and frequency of ostomy pouch change and emptying, showering/bathing, diet, etc. Patient given pre-operative ostomy teaching kit that includes pouch samples, QR link to video, and written teaching information. Encouraged patient to call [phone] if any questions. Tentative stoma marking done at this time. documented in this encounter [facility] 12-26-2024 History of Present illness Narrative COLORECTAL [...] with luminal narrowing. Findings are suggestive of hogzl-st-rwwsute Crohn's disease. Prominent asymmetric soft tissue in [...] TEACHING, and sent pt ERAS teaching through [employer]. documented in this encounter [facility] 12-26-2024 Instructions Jerilyn Hutchins RN - 12/26/2024 [...] doses. No premeds. Rate and dilution per acquisitions editor package insert or per pharmacist discretion. Infusion [...] call by 4 p.m., please call the [facility] at . Follow these [...] the hospital. Do not wear makeup, nail kiswahili or hair pins to the hospital. Please [...] a living will or durable power of assistant attorney general, please bring a copy of the documents with you. IF YOU USE CPAP BRING YOUR MACHINE WITH YOU TO THE HOSPITAL ALONG WITH THE PRESCRIPTION FOR CPAP PRESSURE LEVELS If you develop any illness, such as a cold, sore throat, cough, or fever, before your surgery, call the [facility] at and our office [...] found at all major retailers and on [employer]. If you are unable to find these [...] program. You can also get help through: [facility] Tobacco Dependency Clinic, National Quit Line, [place] Lung Association, [place] Cancer Society, Smokefree.gov website Stop Alcohol Use [...] (AA) http://www.aa.org/ Rethinking Drinking https://www.rethinkingdrinking.niaa a.nih.gov/ National [place] of Alcohol Abuse and Alcoholism https://niaaa.nih.gov/ Anila Rubin [phone] -Inpatient, partial hospitalization and outpatient services for [...] Patient Controlled Analgesia (also known as a AUTO PORTER) A AUTO PORTER is a pain pump that could be [...] doctor s office. documented in this encounter [facility] 12-26-2024 Miscellaneous Notes Addended by: YVETTE MAR on: 12/26/2024 02:00 PM Modules accepted: Orders documented in this encounter [facility] 12-26-2024 Note Addended by: YVETTE MAR on: 12/26/2024 02:00 PM Modules accepted: Orders [facility] 11-02-2024 Nurse Surgical operation note Patient meets ASU discharge criteria and discharged per MD order to home. Patient taken by wheelchair by Helrinda TATUM to awaiting car. All belongings gathered with patient. Family/friend to drive patient home and care for patient 24 hours post-op. [facility] 11-02-2024 Nurse Note Patient meets ASU discharge criteria and discharged per MD order to home. Patient taken by wheelchair by Herlinda TATUM to awaiting car. All belongings gathered with patient. Family/friend to drive patient home and care for patient 24 hours post-op. documented in this encounter [facility] 11-02-2024 Miscellaneous Notes [facility] [place]. Vital signs taken and stable. Patient given drink and snacks. Family called to bedside. Patient assessed. Patient denies hx of chemo and radiation. Patient denies metal or foreign objects in body. Patient denies hx of seizure or stroke. documented in this encounter [facility] 11-02-2024 Nurse Note [facility] [place]. Vital signs taken and stable. Patient given drink and snacks. Family called to bedside. [facility] Discharge instructions Cliff Taylor MD, [...] medications is right for you. Some are mzka-lyx-gamhcxy, some prescribed electronically, and some require a [...] or IBUPROFEN completely documented in this encounter [facility] 11-02-2024 Nurse Note Patient denies hx of chemo and radiation. Patient denies metal or foreign objects in body. Patient denies hx of seizure or stroke. [facility] 10-17-2024 Instructions Eleanor Bess RN - 10/17/2024 10:30 AM EDT Current Outpatient Medications Medication Sig Acetaminophen 325 MG tablet Hold 2 days prior Lidocaine viscous-Alum & Mag Ihqpqpyfg-Kdelll-metoogdwllOVFZM oral mouthwash Hold 24 hours prior risankizumab-rzaa [...] call by 4 p.m., please call the [facility] at . Follow these [...] hospital. 6 Do not wear makeup, nail kiswahili or hair pins to the hospital. Please [...] a living will or durable power of assistant attorney general, please bring a copy of the documents with you. 13 IF YOU USE CPAP BRING YOUR MACHINE WITH YOU TO THE HOSPITAL ALONG WITH THE PRESCRIPTION FOR CPAP PRESSURE LEVELS If you develop any illness, such as a cold, sore throat, cough, or fever, before your surgery, call the [facility] at and our office at . Survey Following your visit today, you may receive a survey via text or email asking about your experience. We are always looking for ways to improve your visit. Please share your feedback and comments with us- We would love to hear from you! documented in this encounter [facility] 09-22-2024 History of Present illness Narrative Images from the original note were not included. [facility] Chief Complaint Patient presents with Follow-up Crohn's Disease HISTORY OF PRESENT ILLNESS [place] is a 23 y.o. female w/ PMH Ileocolonic Crohn's disease Stelara, orbital myositits, psoriasis, chronic sinusitis here for follow up. Transferred care from [facility] 02/2023. Patient was diagnosed with Crohn's disease [...] told Crohn's moved to mouth. Went to [email or web address] and this stopped working. On Rituximab for [...] to start tomorrow) Past therapy: - Stelara t5eldxk - Infliximab(stopped due to severe scalp psoriasis) [...] doses. No premeds. Rate and dilution per acquisitions editor package insert or per pharmacist discretion. Infusion [...] Resource Strain: Low Risk (05/17/2024) Received from [facility] Overall Financial Resource Strain (CARDIA) Difficulty of Paying Living Expenses: Not hard at all Food Insecurity: No Food Insecurity (05/17/2024) Received from [facility] Hunger Vital Sign Worried About Running Out of Food in the Last Year: Never true Ran Out of Food in the Last Year: Never true Transportation Needs: No Transportation Needs (05/17/2024) Received from [facility] PRAPARE - Transportation Lack of Transportation (Medical): No Lack of Transportation (Non-Medical): No Physical Activity: Insufficiently Active (05/17/2024) Received from [facility] Exercise Vital Sign Days of Exercise per Week: 4 days Minutes of Exercise per Session: 30 min Stress: No Stress Concern Present (05/17/2024) Received from [facility] [place] of Occupational Health - Occupational Stress Questionnaire Feeling of Stress : Not at all Social Connections: Moderately Isolated (05/17/2024) Received from [facility] [employer] Social Connection and Isolation Panel [NHANES] Frequency of Communication with Friends and Family: More than three times a week Frequency of Social Gatherings with Friends and Family: More than three times a week Attends Shinto Services: Never Active Member of Clubs or Organizations: No Attends Club or Organization Meetings: Never Marital Status: Living with partner Personal Safety: Not At Risk (02/09/2023) Received from [facility] [employer], [facility] Humiliation, Afraid, Rape, and Kick questionnaire Fear of Current or Ex-Partner: No Emotionally Abused: No Physically Abused: No Sexually Abused: No Housing Stability: Low Risk (05/17/2024) Received from [facility] [employer] Housing Stability Vital Sign Unable to Pay [...] STUDIES: Relevant radiology studies were reviewed in [facility] PROCEDURES: Colonoscopy 08/2024: Impression: - Preparation [...] time spent on day of encounter including aam-cwlr-og-face time (chart review/completing the note/coordinating care) and ixbt-oh-zqjg time with the patient: 20 minutes DANIKA Waterman IBD Nurse Practitioner Division of Gastroenterology, Hepatology, and Nutrition This MA verified patients name and . documented in this encounter [facility] 09-22-2024 Instructions DANIKA Waterman - 09/22/2024 2:30 PM EDT - Skyrizi infusion tomorrow as scheduled - Update labs today - Continue prednisone taper as prescribed - Colorectal follow up as scheduled in October - Reach out with concerns - Follow up in 2 months, or sooner if necessary documented in this encounter [facility] 09-06-2024 Nurse Note Extent reached per Dr. Dalton.. [facility] 09-06-2024 Miscellaneous Notes Extent reached per Dr. Dalton.. Exchanged adult scope for ultraslim scope. Sedation, vital signs, airway, and monitoring per anesthesia. documented in this encounter [facility] 09-06-2024 Nurse Note Exchanged adult scope for ultraslim scope. [facility] 09-06-2024 History and physical note ENDOSCOPIC PREPROCEDURE [...] using Monitored Anesthesia Care. Tu Dalton MD [facility] Work Phone: 09-06-2024 History and physical note [...] Tu Dalton MD documented in this encounter [facility] 09-06-2024 Nurse Note A copy of the written instructions regarding post-procedure diet, medications, activities, and phone number to be called in case of emergency provided to patient and/or responsible alliance party. Information reviewed and questions answered prior to discharge. PT HAD SPRITE AND PRETLAQUITA DRESSED SELF AMBULATED TO LOBBY BY SELF documented in this encounter [facility] 09-06-2024 Nurse Surgical operation note A copy of the written instructions regarding post-procedure diet, medications, activities, and phone number to be called in case of emergency provided to patient and/or responsible alliance party. Information reviewed and questions answered prior to discharge. PT HAD SPRITE AND PRETZELS DRESSED SELF AMBULATED TO LOBBY BY SELF [facility] 09-06-2024 Nurse Note Sedation, vital signs, airway, and monitoring per anesthesia. [facility] 08-01-2024 History of Present illness Narrative Images from the original note were not included. [place] is a 23 y.o. female presents with chief complaint of Migraine HPI: HPI History of Present Illness The patient presents for evaluation of headaches. Daily headaches have been experienced for the past 2.5 weeks, originating in the left scientology area and radiating across the forehead to [...] migraine. Currently under the care of a manager home improvement at [place], who recommended starting treatment here and potentially obtaining scans if necessary. The manager home improvement was also unsure if the symptoms were [...] Reports daily headaches starting in the left scientology area and spreading across the forehead to the right, often worsening in the afternoons and causing nausea. - Rdmy-qoy-bohpdwr medications like Tylenol and ibuprofen have been [...] for further eval. documented in this encounter [facility] 07-15-2024 History of Present illness Narrative Images [...] pressure but with concurrent eye swelling. Her manager home improvement noted that her last ocular flare-up was [...] pulsating pressure that wraps around the forehead. Kfny-fjm-wjevjed medications like Tylenol and ibuprofen have been [...] Headache - Primary documented in this encounter [facility] 07-13-2024 Note Attestation signed by Jelly Latham [...] pain does not improve with Stelara monotherapy [facility] New Patient Visit Subjective [...] used 2-3 years ago (biopsy confirmed at [facility]), reported last used rituximab in 2019. Failed therapy: Humira (lost efficacy), Prednisone (no effect), 6-MP (no effect), Infliximab (cutaneous psoriasis and pulmonary nodules), Entyvio (worked for 1 year, but lost efficacy), methotrexate (no efficacy) Oral sores (attributed to Crohns), constant fatigue, Denies dry eyes, dry mouth, denies hair/skin/nail changes, raynaud's, sun sensitivie skin rash She is presenting to establish care for orbital myositis which has been [...] as CVID, Mother had multiple strokes and HISTORY CARD CLERK vasculitis. No other autoimmune diseases or arthritis [...] Resource Strain: Low Risk (05/17/2024) Received from [facility] Overall Financial Resource Strain (CARDIA) Difficulty of Paying Living Expenses: Not hard at all Food Insecurity: No Food Insecurity (05/17/2024) Received from [facility] Hunger Vital Sign Worried About Running Out of Food in the Last Year: Never true Ran Out of Food in the Last Year: Never true Transportation Needs: No Transportation Needs (05/17/2024) Received from [facility] PRAPARE - Transportation Lack of Transportation (Medical): (more content not included)... [facility] 05-18-2024 Telephone encounter Note I know Louisa s not in today, so can you send a message to Serene regarding me letting her know i saw bebe last night and tested negative for everything but i just took a positive covid test [facility] 05-18-2024 Miscellaneous Notes I know Louisa s not in today, so can you send a message to Serene regarding me letting her know i saw bebe last night and tested negative for everything but i just took a positive covid test documented in this encounter [facility] 05-17-2024 History of Present illness Narrative [place] [...] - STATUS COVID-19/FLU documented in this encounter [facility] 05-04-2024 History of Present illness Narrative [place] [address] [address] 23 year old F here for surgical follow up. Surgery was 03/22/[address] Lee. Having random left ear pain. States it feels like something is in there. Ear drops made it worse and stopped them. [facility] PEDIATRIC OTOLARYNGOLOGY FOLLOW UP VISIT NOTE [place] [address] [address] [place] is a 23 year female [...] Outside medical record review: None [facility] chart review: Previous ENT notes reviewed Discussion [...] need tympanoplasty- endoscopic documented in this encounter [facility] 05-04-2024 Instructions Milind Suazo RN - 05/04/2024 [...] please call our Central Scheduling number at [phone] at least 48 hours prior to your scheduled appointment. Department of Otolaryngology (ENT) Patient Instructions ENT Nurse Triage Line: [phone] (Thursday through Thursday 8:00 am - 4:00 pm) Please call the ENT Nurse Triage Line if you need to speak to a nurse for any ENT- related medical concerns prior to your next appointment. [facility] Sales Route Driver Helper: [phone] (Weekdays after 4:00 pm and on Weekends) If you have urgent ENT concerns for your child after hours that can t wait until our return to the office, please call the hospital ear machine operator and ask to speak to the ENT physician chemical reclamation equipment operator. [facility] Central [phone] (Thursday through Thursday 7:30 am -5:30 pm) Please call Central Scheduling and follow the prompts to schedule an ENT appointment if you did not schedule an appointment today, or if you need to cancel and reschedule a future appointment. For more information about the Department of Otolaryngology (Ear, Nose and Throat) at [facility], please visit our website at: [email or web address] documented in this encounter [facility] 04-28-2024 Telephone encounter Note S/w Pt. Did ear drops yesterday. It was painful in the morning when she used drops for the first time in left ear. [place] and stabbing pain. Also burned left nostril. [...] ENT. PT verbalized understanding. All questions answered. [facility] 04-28-2024 Miscellaneous Notes S/w Pt. Did ear drops yesterday. It was painful in the morning when she used drops for the first time in left ear. [place] and stabbing pain. Also burned left nostril. [...] All questions answered. documented in this encounter [facility] 03-22-2024 Miscellaneous Notes Images from the original note were not included. OPERATIVE REPORT PATIENT NAME: Kings Hatfield : 2000 DATE OF SURGERY: 03/22/2024 Service: ENT Surgeons and Role: * Zhou Lee MD - Primary Anesthesiologist: Merly Perera MD LEAD WEB DEVELOPER: Noemi Pederson CRNA Pre-Op Diagnosis Codes: * [...] patient was seen and evaluated in the [facility] Pediatric Otolaryngology practice. After history and physical [...] graft up to the level of the [place]. croix tympanic membrane remnantand further pieces of Gelfoam [...] this procedure. Zhou Lee MD Pediatric Otolaryngology [facility] documented in this encounter [facility] 03-22-2024 Procedure note Images from the original note were not included. OPERATIVE REPORT PATIENT NAME: Kings Hatfield : 2000 DATE OF SURGERY: 03/22/2024 Service: ENT Surgeons and Role: * Zhou Lee MD - Primary Anesthesiologist: Merly Perera MD LEAD WEB DEVELOPER: Noemi Pederson CRNA Pre-Op Diagnosis Codes: * [...] patient was seen and evaluated in the [facility] Pediatric Otolaryngology practice. After history and physical [...] graft up to the level of the [place]. croix tympanic membrane remnantand further pieces of Gelfoam [...] this procedure. Zhou Lee MD Pediatric Otolaryngology [facility] 03-22-2024 Attending History and physical note I [...] Laterality Date left ear tube insertion 09/28/2017 Teresa Anterior orbitotomy, biopsy of lacrimal gland, left 08/02/2014 Steffany Kyle nasal endoscopy, nasal cautery, fess, ethmoidectomy, exc right facial lesion, mri 12/20/2020 Ellarisa Biat fess, ethmoidectomy, spenoidotomy 05/18/2020 Giovanisera Karel max sinus surg / flex bronch bal 04/21/2019 Elmaraghy / Palacious Bilat nasal cautery, rt fess, bilat turb cautery, bilat fracture nasal turbinate 05/23/2021 Giovanisera Bilateral diagnostic nasal/sinus endoscopy 08/04/2016 Giovanisera Bilateral maxillary functional endoscopic sinus [facility]53 [facility] 89603 [facility] w/ bx / colonoscopy w/ bx 12/29/2012 Egd/biopsy 42206 02/22/2016 [facility] Egd/biopsy 32579 07/06/2018 [facility] Exicisional biopsy 06/11/2018 CE submental lymph node Functional endoscopic sinus surgerysinusotomy,sphenoid,with or without biopsy; with mucosal stripping or removal of polyp(s) (bilateral) (bilateral, 08/20/2021 Elmaraghy Hx adenoidectomy Hx colonoscopy with biopsy 2011 Hx nasal septoplasty, sinus surgery, turb reduction 07/23/2015 Eljessicaaghy Hx tonsil and adenoidectomy performed twice Ileocecectomy 03/21/2016 [facility] Nasal sinus surgery 06/11/2018 CE maxillary, ethmoid Picc line placement 04/24/2014 05/30/14, 07/21/14 Right maxillary functional endoscopic sinus surgery with maxillary antrostomy, remove tissue 12/23/2018 Teresa Septoplasty, eua ears, karel cerumen rem, lt tube rem and tm rep, fess, egd w/ biopsy, colonoscopy w/ biopsy 11/15/2019 Teresa / Cyndie Single incision laparoscopic surgical [facility]cectomy [facility] Current Medications Outpatient Medications Dosage ustekinumab 90 mg/mL subcutaneous syringe (Stelara) Inject 1 mL under skin every 8 weeks. sodium chloride, sodium bicarb-nasal rinse squeeze bottle with packet (Oncodesign Sinus) Place 1 Packet in each nostril [...] Comments as of 12/18/2022 Stelara approved through [employer] 12/18/22-12/18/23 PA# [id number] (TDS) Stelara approved through [employer] [employer] 12/24/21-12/24/22 PA# [id number] (TDS) Humira approved through [employer] 10/09/2021-10/09/2022 PA# [id number] (SY) Rituxan 1000 mg x 2 doses, 2 weeks apart approved through [employer] 01/11/21-02/08/21 (SJD), ref# [id number] Humira every 10 days approved through [employer] 10/11/20-10/11/21 [id number] (AUGUST) Rituxan 500 mg/50 ml vial (J9312) PA approved through [employer] for one visit from 01/12/2020 - 02/11/2020 Reference # [id number] (ad) Humira weekly approved through [employer] [employer] 12/16/19-12/15/20 [id number] (AUGUST) [employer] [employer] / [employer] has approved Rituxan 1000mg every 6 months from 05-26-2018 through 05-25-2019 under PA# [id number] Humira PA approved through [employer] 09/13/18-10/13/19 PA# [id number] (TDS) Humira PA approved through [employer] 06/08/2018-10/06/2018 PA # [id number] (TDS) [employer] [employer] [facility] [employer] has approved Rituxan 1000mg every 6 months from 05-26-2018 through 05-25-2019 under PA# [id number]. Medication will need to be dispensed by [facility] in [place], [place]. As of 12/02/17 Solumedrol does not require a PA tor PreD hrough [employer] for J2920,03510 and 96613 (KH) Ritux approved by [employer] X2 doses from 11/27/17-11/26/18, PA# [id number] (margarita) Ritux approved by [employer] via kovs-iq-ayof, PA# [id number], valid 05/26/17 to 05/25/18 (margarita) Ritux jacinta roved by [employer] after [id number]-[id number] review, Valid 11/24/16-05/25/17, PA# [id number] (margarita) As of 06/24/16, no PA or PreD needed for Solumedrol J2930, 10948, 16960 with Jimmy (margarita) Physical Exam Craniofacial: normal [...] the patient and prescribed the anesthesia plan. [facility] 03-22-2024 History and physical note I [...] Laterality Date left ear tube insertion 09/28/2017 Teresa Anterior orbitotomy, biopsy of lacrimal gland, left 08/02/2014 Steffany Kyle nasal endoscopy, nasal cautery, fess, ethmoidectomy, exc right facial lesion, mri 12/20/2020 Ellarisa Biat fess, ethmoidectomy, spenoidotomy 05/18/2020 Eljessicasera Karel max sinus surg / flex bronch bal 04/21/2019 Elmaraghy / Palacious Bilat nasal cautery, rt fess, bilat turb cautery, bilat fracture nasal turbinate 05/23/2021 Elmarsera Bilateral diagnostic nasal/sinus endoscopy 08/04/2016 Eljessicasera Bilateral maxillary functional endoscopic sinus surgery [facility]oscopy[facility]opsy 45787 02/22/2016 [facility] Colonoscopy/biopsy 20208 07/06/2018 [facility] Egd w/ bx / colonoscopy w/ bx 12/29/2012 Egd/biopsy 35852 02/22/2016 [facility] Egd/biopsy 52769 07/06/2018 [facility] Exicisional biopsy 06/11/2018 CE submental lymph node Functional endoscopic sinus surgerysinusotomy,sphenoid,with or without biopsy; with mucosal stripping or removal of polyp(s) (bilateral) (bilateral, 08/20/2021 Elmaraghy Hx adenoidectomy Hx colonoscopy with biopsy 2011 Hx nasal septoplasty, sinus surgery, turb reduction 07/23/2015 Teresa Hx tonsil and adenoidectomy performed twice Ileocecectomy 03/21/2016 [facility] Nasal sinus surgery 06/11/2018 CE maxillary, ethmoid Picc line placement 04/24/2014 05/30/14, 07/21/14 Right maxillary functional endoscopic sinus surgery with maxillary antrostomy, remove tissue 12/23/2018 Teresa Septoplasty, eua ears, karel cerumen rem, lt tube rem and tm rep, fess, egd w/ biopsy, colonoscopy w/ biopsy 11/15/2019 Teresa / Cyndie Single incision laparoscopic surgical ileocectomy 03/21/2016 [facility] Tonsillectomy Current Medications Outpatient Medications Dosage ustekinumab 90 mg/mL subcutaneous syringe (Stelara) Inject 1 mL under skin every 8 weeks. sodium chloride, sodium bicarb-nasal rinse squeeze bottle with packet (Oncodesign Sinus) Place 1 Packet in each nostril [...] Comments as of 12/18/2022 Stelara approved through [employer] 12/18/22-12/18/23 PA# [id number] (TDS) Stelara approved through [employer] 12/24/21-12/24/22 PA# [id number] (TDS) Humira approved through [employer] 10/09/2021-10/09/2022 PA# [id number] (SY) Rituxan 1000 mg x 2 doses, 2 weeks apart approved through [employer] 01/11/21-02/08/21 (SJD), ref# [id number] Humira every 10 days approved through [facility] 10/11/20-10/11/21 [id number] (AUGUST) Rituxan 500 mg/50 ml vial (J9312) PA approved through [employer] for one visit from 01/12/2020 - 02/11/2020 Reference # [id number] (ad) Humira weekly approved through [facility] [facility] 12/16/19-12/15/20 [id number] (AUGUST) [employer] [employer] / [employer] has approved Rituxan 1000mg every 6 months from 05-26-2018 through 05-25-2019 under PA# [id number] Humira PA approved through [employer] 09/13/18-10/13/19 PA# [id number] (TDS) Humira PA approved through [employer] 06/08/2018-10/06/2018 PA # [id number] (TDS) [employer] [employer] [facility] [employer] has approved Rituxan 1000mg every 6 months from 05-26-2018 through 05-25-2019 under PA# [id number]. Medication will need to be dispensed by [facility] in [place], [place]. As of 12/02/17 Solumedrol does not require a PA tor PreD hrough [employer] [employer] for J2920,69165 and 37431 (KH) Ritux approved by [employer] X2 doses from 11/27/17-11/26/18, PA# [id number] (margarita) Ritux approved by [employer] via [id number]-unzj, PA# [id number], valid 05/26/17 to 05/25/18 (margarita) Ritux jacinta roved by Jimmy after [id number]-ya-dyfr review, Valid 11/24/16-05/25/17, PA# [id number] (margarita) As of 06/24/16, no PA or PreD needed for Solumedrol J2930, 65731, 83476 with Jimmy (margarita) Physical Exam Craniofacial: normal [...] the anesthesia plan. documented in this encounter [facility] 03-22-2024 Hospital Discharge instructions Geovanna Lima APN - 03/22/2024 1:03 PM EST ------- ENT HOME INSTRUCTIONS ------- Post Op Sinus Surgery, Nasal Cautery and Left Myringoplasty: Your surgery was done by Dr. Lee. If you have any questions call our clinic at [phone]. What to Expect: - It is normal [...] child's follow-up appointment Levaquin: As Prescribed Saline [place]: Nasal irrigation 2 times a day until follow-up appointment. If unable to tolerate irrigations you will need to use Nasal Saline spray. Nasal saline spray 3 sprays 3 times a day until follow-up. Nasal ointment/Vaseline Twice per Day for 7 days FOLLOW-UP: Provider Department [place] 05/04/2024 11:30 AM Zhou Lee MD ENT Clinic [facility] If you need to speak with a nurse please call the ENT Nurse Triage Line ([phone]). For appointments, please call: Central Scheduling of the ENT clinic . [facility] . Please ask for ENT resident chemical reclamation equipment operator if after hours. documented in this encounter [facility] 03-15-2024 Telephone encounter Note Summary: surgery rescheduled Called Patient to reschedule surgery, now scheduled with Dr Lee in [facility] on 03/22/24. Post op rescheduled. Patient aware of NPO. Consent DOS. Patient had no further questions. [facility] 03-15-2024 Miscellaneous Notes Summary: surgery rescheduled Called Patient to reschedule surgery, now scheduled with Dr Lee in [facility] on 03/22/24. Post op rescheduled. Patient aware of NPO. Consent DOS. Patient had no further questions. documented in this encounter [facility] 03-03-2024 Telephone encounter Note Summary: surgery scheduled Called Patient to schedule surgery with Dr Lee in [facility] on 05/10/24. Post op scheduled. Patient aware of NPO. Consent DOS. Patient had no further questions. [facility] 03-03-2024 Miscellaneous Notes Summary: surgery scheduled Called Patient to schedule surgery with Dr Lee in [facility] on 05/10/24. Post op scheduled. Patient aware of NPO. Consent DOS. Patient had no further questions. documented in this encounter [facility] 02-29-2024 Note REASON FOR EXAM: letha al [...] of the face and orbits are normal. [facility] 02-29-2024 Hospital Discharge instructions May Brewer - 02/29/2024 9:30 AM EST Your child received a CT without Contrast today. The results will be made available to the ordering provider. Please follow up with the provider for any questions or concerns. documented in this encounter [facility] 02-29-2024 Note REASON FOR EXAM: letha al [...] Yann Phillips MD on 02/29/2024 9:38 AM [facility] 02-16-2024 Telephone encounter Note Pt called back. Plan reviewed. No further needs at this time. [facility] 02-16-2024 Miscellaneous Notes Pt called back. Plan reviewed. No further needs at this time. Addended by: NAIMA COATES on: 02/16/2024 02:36 PM Modules accepted: Orders Received GreenBytest message from patient via her son's Metanautixhart due to not being able to access GreenBytest: Kirstin, I am a patient with Dr [...] patient to contact IS for assistance with Metanautixhart. Forwarding message to chemical dependency nurse for review. documented in this encounter [facility] 02-16-2024 Note Addended by: NAIMA COATES on: 02/16/2024 02:36 PM Modules accepted: Orders [facility] 02-16-2024 Telephone encounter Note Received Meijob message from patient via her son's Metanautixhart due to not being able to access Meijob: Kirstin, I am a patient with Dr Lee as well [place] 2000, for some reason once I got Simmons s Metanautixhart it kicked me out of mine. I [...] patient to contact IS for assistance with Metanautixhart. Forwarding message to chemical dependency nurse for review. [facility] 02-10-2024 History of Present illness Narrative Images [...] on current medications. documented in this encounter [facility] 01-27-2024 History of Present illness Narrative Images [...] tenderness or frontal sinus tenderness. Mouth/Throat: Lips: [place]. Mouth: Mucous membranes are moist. Pharynx: Oropharynx [...] W/REFLEX TO FT4; [facility] Wellness performed at [facility] today. Height, weight, BMI, problem list, and [...] unspecified complications (CMS/HCC) documented in this encounter [facility] 11-18-2023 Nurse Note Patient to PACU from [...] departure from facility. documented in this encounter [facility] 11-18-2023 Nurse Surgical operation note Patient to [...] to private vehicle for departure from facility. [facility] 11-18-2023 History and physical note ENDOSCOPIC PREPROCEDURE [...] using Monitored Anesthesia Care. Sharath Lambert MD [facility] Work Phone: 11-18-2023 History and physical note [...] Lambert MD documented in this encounter [facility] 08-06-2023 History of Present illness Narrative Patient [...] Crohn's Disease - diagnosed at [facility] 2011. Therapy has included 6MP, infliximab, stopped due to severe scalp psoriasis), vedolizumab, ustekinumab, adalimumab. She underwent ileocecal resection in 03/2016. Most recent colonoscopy was in 2019. 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 See imaging and biopsy results below. Therapy has included methylprednisolone pulses, methotrexate 2946-4032 (with interruptions; stopped due to inefficacy and frequent infections), rituximab x 2 11/2016, 11/2017, 12/2018, 01/2020, 01/2021, 12/2021. Difficult course with multiple admissions for management of this problem. Psoriasis - diagnosed at [facility] - developed psoriasis of scalp while taking infliximab Hidradenitis suppurativa - diagnosed at [facility]; primarily treated with topical therapies. Pulmonary nodules [...] tight but is not painful. Current providers: CLIENT STRATEGIST: Alfredo Duong CNM MFM: Dr. Ruchi Carmona Pulmonary: Dr. Xiomara Zurita IBD: Teresa Peterson ENT: Dr. Lee at [facility] Ophtho: need to confirm Does not have [...] seen. IMAGING MRI orbits 07/31/2014 ([facility]): TECHNICAL COMMENTS Contrast Type: Optiray 320 Contrast [...] is noted. This is best seen on cheese grader CT of the brain as the contrast [...] normal. CT chest no contrast [facility] 04/19/2020 REASON FOR EXAM: immune suppression, patient [...] described above. Bone density 09/16/2018 ([facility]) normal for debo Assessment: [place] is [...] visit need to confirm primary care provider, state auditor Follow up: I will see her for a 6 week video visit - she was instructed to contact me sooner if problems Addendum: External ultrasound of doppler of LLE was negative for DVT documented in this encounter [facility] 08-06-2023 Instructions Christine Mckeon MD - 08/06/2023 12:00 PM EDT Nice to see you today! Please have ultrasound done of left leg within 24 hours either at [facility] or [facility] documented in this encounter [facility] 08-06-2023 History of Present illness Narrative Images from the original note were not included. [facility] Chief Complaint Patient [...] IBD history Diagnosed (age): 10 Disease distribution: [place] Classification: CD: A1 <16, L3 ileocolonic GI surgical history: Ileocectomy 2016 Current therapy: Stelara [id number] Past therapy: Infliximab(stopped due to severe scalp [...] Resource Strain: Low Risk (02/09/2023) Received from [facility] Overall Financial Resource Strain (CARDIA) Difficulty of Paying Living Expenses: Not hard at all Food Insecurity: No Food Insecurity (04/24/2023) Received from [facility] Hunger Screening Within the past 12 months we worried whether our food would run out before we got money to buy more.: Never True Within the past 12 months the food we bought just didn't last and we didn't have money to get more.: Never True Transportation Needs: No Transportation Needs (02/09/2023) Received from [facility] PRAPARE - Transportation Lack of Transportation (Medical): No Lack of Transportation (Non-Medical): No Physical Activity: Sufficiently Active (02/09/2023) Received from [facility] Exercise Vital Sign Days of Exercise per Week: 6 days Minutes of Exercise per Session: 40 min Stress: No Stress Concern Present (02/09/2023) Received from [facility] [place] [employer] Occupational Health - Occupational Stress Questionnaire Feeling of Stress : Not at all Social Connections: Moderately Isolated (02/09/2023) Received from [facility] Social Connection and Isolation Panel [NHANES] Frequency of Communication with Friends and Family: More than three times a week Frequency of Social Gatherings with Friends and Family: Twice a week Attends Shinto Services: Never Active Member of Clubs or Organizations: No Attends Club or Organization Meetings: Never Marital Status: Living with partner Intimate Partner Violence: Not At Risk (02/09/2023) Received from [facility] Humiliation, Afraid, Rape, and Kick questionnaire Fear of Current or Ex-Partner: No Emotionally Abused: No Physically Abused: No Sexually Abused: No Housing Stability: Low Risk (02/09/2023) Received from [facility] Housing Stability Vital Sign Unable to Pay [...] STUDIES: Relevant radiology studies were reviewed in [facility] IMPRESSION: Kings Hatfield is a 22 y.o. female w/ PMH Ileocolonic Crohn's disease s/p ileocectomy 2016 on Stelara [id number], orbital myositits, psoriasis, chronic sinusitis here to [...] and . 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 No Cramping/contractions? No Abnormal vaginal discharge? No Spotting/vaginal bleeding? No Loss of fluid like your water may have broken? No Cats in the home? No Do you change the litter box? N/A Flu vaccine? No Genetic testing done this here or other office?Yes Have you been seen here at [facility] in a previous ? No Recent ER visits or hospitalizations? No Bring blood sugar log or meter with you today? (Please bring them with you for every visit at [facility]) N/A Traveled outside the country in [...] disease affecting in second trimester ([facility]). Diagnoses of History of chronic ulcerative colitis and 19 weeks gestation of were also pertinent to this visit. She has had low risk aneuploidy screen for select aneuploidy of chromosomes 21, 13, 18 and sex chromosomes. Review of systems: Review of systems was noncontributory Complications: Problem List Items Addressed This Visit None Visit Diagnoses Maternal Crohn's disease affecting in second trimester ([facility]) - Primary History of chronic ulcerative colitis 19 weeks gestation of PMH: Past Medical History: Diagnosis Date Anemia Crohn's disease ([facility]) GERD (gastroesophageal reflux disease) Myositis [...] Maternal Crohn's disease affecting in second trimester ([facility]) 2. History of chronic ulcerative [...] Crohn's disease s/p ileocectomy 2016 on Stelara [id number], orbital myositits, psoriasis, chronic sinusitis Per gastroenterology: PLAN/RECOMMENDATIONS: -Chem 6 and LFT's ordered -CRP and stool calprotectin -Quantiferon TB, TPMT and chronic hepatitis panel ordered -Some nutrition labs ordered -UST level ordered -Continue Stelara every 8 weeks. Will plan for Stelara to be given 8 weeks or so prior to delivery and then shortly after. Following with high density finishing operator -Will follow up with Rheumatology for orbital [...] Maternal Crohn's disease affecting in second trimester ([facility]) [O99.612, K50.90] Recommendations: Follow-up detailed [...] continue with routine care in your office [facility], the CDC, and other organizations representing maternal and public health professionals recommend that , , and lactating people and those considering receive the COVID-19 vaccination. Vaccination is the best method to reduce maternal and complications of SARS-CoV-2 infection. This document was created with Veset technology. Though I make every effort to review the dictation as it is transcribed, on occasion the spoken word can be misinterpreted by the technology leading to inappropriate words, phrases, or sentences. This note is addressed to the requesting provider as a consultation for clinical guidance. Specific medical abbreviations are occasionally used and those are generally approved by the [place]?Board of?Obstetrics and?Gynecology?as well as?Earle knight abbreviations. The above plan of care was based solely on the diagnoses for which a consultation was requested. ?More frequent testing may be indicated based on her other medical/obstetrical conditions. The management of other or medical conditions is beyond the scope of requested consultation and will continue to be followed by the primary embryology professor or primary care provider. Thank you for [...] procedures Referring and communicating with other health nurse care manager (not separately reported) Documenting clinical information in the electronic or other health record Independently interpreting results (not separately reported) and communicating results to the patient/family/caregiver Care coordination (not separately reported) documented in this encounter [facility] 04-03-2023 History of Present illness Narrative MA to room to draw Anser UST- red serum tube Pt identified with name and 1 attempt made in right Antecubital fossa- success Excessive Bleeding or Bruising at draw site: no documented in this encounter [facility] 03-03-2023 Telephone encounter Note Noted. Pete Jaramillo [facility] 03-03-2023 Miscellaneous Notes Noted. Pete Jaramillo Spoke with Kings. She has established care w/[facility]. She has appoints (at [facility]) in March and April. [place] placed on chart. documented in this encounter [facility] 03-03-2023 Telephone encounter Note Spoke with Kings. She has established care w/[facility]. She has appoints (at [facility]) in March and April. [place] placed on chart. [facility] 02-25-2023 History of Present illness Narrative [...] told Crohn's moved to mouth. Went to [email or web address] and this stopped working. On Rituximab for [...] surgical history: Ileocectomy 2015 Current therapy: Stelara [id number] Past therapy: Infliximab(stopped due to severe scalp [...] STUDIES: Relevant radiology studies were reviewed in [facility] IMPRESSION: Kings Hatfield is a 22 y.o. female w/ PMH Ileocolonic Crohn's disease s/p ileocectomy 2016 on Stelara [id number], orbital myositits, psoriasis, chronic sinusitis here to [...] and then shortly after. Following with high density finishing operator -Will follow up with Rheumatology for orbital [...] MD Division of Gastroenterology, Hepatology, and Nutrition Pager:[phone] This MA verified patients name and . documented in this encounter [facility] 02-25-2023 Instructions Kye Solis MD - 02/25/2023 [...] will either call you, send you a Meijob message, or mail you a letter with the results of your tests within 1-2 weeks after you have completed your tests. If you do not hear from our office, please call the clinic to receive your results at [phone]. If you need to fax old records in, please fax to [phone]. --------- If you have any concerning symptoms, please seek immediate medical attention. documented in this encounter [facility] 01-26-2023 Hospital Discharge instructions Zhou Aly MD - 01/26/2023 11:16 AM EDT It was a pleasure seeing Kings today. Have a ferritin checked in 3-4 months to ensure no need for iron infusion. We will work on finding an adult Porcelain Enamel Repairer to follow with at [facility]. Hematology Clinic Patient Instructions Please call if you have any questions or concerns about your child's care during the hours of 8-5 Thursday through Thursday. After 5PM on weekdays or on weekends please call the hospital ear machine operator and ask for the consultant in ergonomics and safety chemical reclamation equipment operator. documented in this encounter [facility] 01-26-2023 History of Present illness Narrative Informant: self mother Patient is a 22yo her for f/u recurrent sinusitis. History turbs and sinus surgery 03/20/22. Doing well. [facility] OT[facility] FOLLOW UP VISIT NOTE Chey Aragon MD [address] [place] [address] Kings Hatfield is a 22 year female [...] Outside medical record review: None [facility] chart review: Previous ENT notes reviewed Discussion [...] OPTIONS: F/U PRN documented in this encounter [facility] 01-26-2023 Instructions Milind Suazo RN - 01/26/2023 10:00 AM EDT You do not need to schedule an ENT office visit at this time but we are happy to see you in the future for any additional ENT concerns. Please call Central Scheduling at [phone] and follow the prompts to schedule an ENT office visit should you need a future appointment in the ENT clinic. Call us at [phone] to speak to a nurse if you should have any additional ENT- related questions or concerns after today s visit. Department of Otolaryngology (ENT) Patient Instructions ENT Nurse Triage Line: [phone] (Thursday through Thursday 8:00 am - 4:00 pm) Please call the ENT Nurse Triage Line if you need to speak to a nurse for any ENT- related medical concerns prior to your next appointment. [facility] Sales Route Driver Helper: [phone] (Weekdays after 4:00 pm and on Weekends) If you have urgent ENT concerns for your child after hours that can t wait until our return to the office, please call the hospital ear machine operator and ask to speak to the ENT physician chemical reclamation equipment operator. [facility] Central [phone] (Thursday through Thursday 7:30 am -5:30 pm) Please call Central Scheduling and follow the prompts to schedule an ENT appointment if you did not schedule an appointment today, or if you need to cancel and reschedule a future appointment. For more information about the Department of Otolaryngology (Ear, Nose and Throat) at [facility], please visit our website at: [email or web address] documented in this encounter [facility] 01-26-2023 History of Present illness Narrative [...] of disease: Problem List: 1. Crohn's Disease: [place]- GI. S/p enteral diet, s/p Infliximab (d/c'd [...] was started on Stelara. Interval History: Kings Hatifeld is a 22years female with Crohn's disease, [...] bursitis. She had an adjustment with an first aid trainer. She has been given stretches. She uses KT tape. She has the most difficulty with sleep. Ice helps on occasion. She is 7 weeks . She has an appointment with a high density finishing operator/GYN in the next couple of weeks. She [...] Latest Reference Range & Units Most Recent (1,3)-GZAA-H-XHBYCM pg/mL <31 04/15/19 21:20 (1,3)-YSKR-J-FBINNL INTERP Negative Negative 04/15/19 21:20 ALBUMIN, CSF [...] AB TITER (IFA) NEG^Negative Negative 08/07/14 05:48 TOMY-INFORMATION ASSURANCE NEG^Negative Negative 08/07/14 05:48 TOMY-SM NEG^Negative Negative [...] appropriate to have her see an adult manager home improvement in the case of a flare as [...] with Dr. Mckeon documented in this encounter [facility] 01-26-2023 Instructions Ioana Otero MD - [...] to reach Rheumatology 1. Sign up for [employer] to use a secure e-mail system for non-urgent issues (this is NOT checked on weekends). 2. For medical questions between 8 am - 4 pm, call our nurse line at [phone] option 2. 3. For medical questions at night, over the weekend or a holiday, call the hospital ear machine operator at [phone] and ask to talk to the Lawn Service Worker. 4. To schedule or change an appointment, call Central Scheduling at [phone], press option 4, then option 7. 5. For other nonmedical questions, call a secretary of police at [phone], option 4. 6. If you cannot reach a person and need information the same day, call the hospital ear machine operator at [phone] and ask to talk to the Lawn Service Worker chemical reclamation equipment operator. documented in this encounter [facility] 01-21-2023 Telephone encounter Note Received fax from [facility]. Printed and placed on Dr. Otero's door for review and/or signature. [facility] 01-21-2023 Miscellaneous Notes Received fax from [facility]. Printed and placed on Dr. Otero's door for review and/or signature. documented in this encounter [facility] 01-09-2023 Telephone encounter Note Pharmacy Note Reviewed medications for risk: -Rituximab: last dose received 01/2022. Will review registry data with primary rheumatology team. Per ACR guidelines, risk of B cell depletion if dosed in second half of . -Stelara (managed by GI): Dr. Agee recommended continuing with the January dose. Plans to then transition to adult technology services manager [facility] 01-09-2023 Miscellaneous Notes Pharmacy Note Reviewed medications for risk: -Rituximab: last dose received 01/2022. Will review registry data with primary rheumatology team. Per ACR guidelines, risk of B cell depletion if dosed in second half of . -Stelara (managed by GI): Dr. Agee recommended continuing with the January dose. Plans to then transition to adult technology services manager Received incoming call that Kings is . Diagnosis Orbital myositis Primary Lawn Service Worker Ioana Otero How did patient find out about Home test Date of last menses 12/08/2022 Last dose of each teratogenic medication (methotrexate, leflunomide, cyclophosphamide, NSAID, ACEi) N/a - no recent NSAID's Do you have appt with CLIENT STRATEGIST? Yes, date of appt 02/04/2023 If underage, is family aware? N/A - mom is aware Best phone number for follow up [phone] Is it okay to leave message on preferred phone? Yes Recommendations for patient: 1. Hold teratogenic medication (methotrexate, leflunomide, cyclophosphamide, NSAID, ACEi) 2. Do not stop hydroxychloroquine or prednisone (if applicable) 3. Start vitamin 4. Follow up with other prescribers/clinics to evaluate non-rheumatology medications Recommendation for nurses: Notify team : Primary manager home improvement, Geovanna Simms, Christine Mckeon Recommendations for providers: 1. Order serum test, if needed 2. Further evaluate current medications 3. Refer to [facility], if needed 4. Follow up with patient within 24 hours Patient is in the process of informing all [facility] specialists. She has talked to GI and received guidance. She is taking a vitamin. Ideally Kings would like to keep her October follow-ups here at [facility] and then transition to adult rheum/GI closer to home. Dr. Otero/Geovanna please advise documented in this encounter [facility] 01-09-2023 Telephone encounter Note Received incoming call that Kings is . Diagnosis Orbital myositis Primary Lawn Service Worker Ioana Otero How did patient find out about Home test Date of last menses 12/08/2022 Last dose of each teratogenic medication (methotrexate, leflunomide, cyclophosphamide, NSAID, ACEi) N/a - no recent NSAID's Do you have appt with CLIENT STRATEGIST? Yes, date of appt 02/04/2023 If underage, is family aware? N/A - mom is aware Best phone number for follow up [phone] Is it okay to leave message on preferred phone? Yes Recommendations for patient: 1. Hold teratogenic medication (methotrexate, leflunomide, cyclophosphamide, NSAID, ACEi) 2. Do not stop hydroxychloroquine or prednisone (if applicable) 3. Start vitamin 4. Follow up with other prescribers/clinics to evaluate non-rheumatology medications Recommendation for nurses: Notify team : Primary manager home improvement, Christine Hernandes Recommendations for providers: 1. Order serum test, if needed 2. Further evaluate current medications 3. Refer to [facility], if needed 4. Follow up with patient within 24 hours Patient is in the process of informing all [facility] specialists. She has talked to GI and received guidance. She is taking a vitamin. Ideally Kings would like to keep her October follow-ups here at [facility] and then transition to adult rheum/GI closer to home. Dr. Otero/Geovanna please advise [facility] 12-26-2022 Telephone encounter Note TP updated, flagged ready for PA. [facility] 12-26-2022 Miscellaneous Notes TP updated, flagged [...] needed. Thank you! documented in this encounter [facility] 12-26-2022 Telephone encounter Note Rituximab added back into the therapy plan. [facility] Work Phone: 12-23-2022 Telephone encounter Note Signed. Thank you. [facility] 12-23-2022 Miscellaneous Notes Signed. Thank you. Stelara refill request received from pharmacy. Pended for review. OV scheduled for 02/18/23. Labs recently ordered to be obtained before the visit. documented in this encounter [facility] 12-23-2022 Telephone encounter Note Stelara refill request received from pharmacy. Pended for review. OV scheduled for 02/18/23. Labs recently ordered to be obtained before the visit. [facility] 12-19-2022 Telephone encounter Note Informed by Geovanna Centeno with SP that Ritux no longer in TP. Dr. Otero please re-add medication/update TP, and inform nursing when complete. Then will update SP to re-PA. Thank you! [facility] 12-19-2022 Telephone encounter Note Sent referral back to Pharmacy PA for Infusions Team via WQ to be re-authorized. Dr. Otero FYI only (nothing needed from you at this time- will alert you with any issues with the PA) [facility] 12-18-2022 History of Present illness Narrative Prior Authorization for Specialty Medication Clinic: GI Diagnosis: K50.819 - Crohns Medication name: Stelara Medication dose: 90mg Medication frequency: Every 8 weeks Reason for PA: Renewal Kings's Prior Authorization has been APPROVED. Insurance #1: [employer] PA Type: Pharmacy PA Status: Approved Approved from: 12/18/22 Approved to: 12/18/23 PA #: [id number] Filling Pharmacy: Other ([facility]) Prior Authorization for Specialty Medication Clinic: GI Diagnosis: K50.819 - Crohns Medication name: Stelara Medication dose: 90mg Medication frequency: Every 8 weeks Reason for PA: Renewal Kings's Prior Authorization has been SUBMITTED. Insurance #1: [employer] PA Type: Pharmacy PA Status: Submitted Information submitted: Office Note Method of submission : CoverMyMeds documented in this encounter [facility] 12-17-2022 Telephone encounter Note Per encounter [...] SP to PA if needed. Thank you! [facility] 11-21-2022 Telephone encounter Note Pt called to change yearly followup appointment to a different day in order to line up with other appointments due to having a long commute. Pt rescheduled for 01/[address] Aly. [facility] 11-21-2022 Miscellaneous Notes Pt called to change yearly followup appointment to a different day in order to line up with other appointments due to having a long commute. Pt rescheduled for 01/[address] Aly. documented in this encounter [facility] 09-24-2022 Telephone encounter Note Patient called back to schedule 01-05-23 elissa lee, post op made, pt aware of pat call [facility] Work Phone: 09-24-2022 Miscellaneous Notes Patient called back to schedule 01-05-23 elissa lee, post op made, pt aware of pat call documented in this encounter [facility] 09-04-2022 History of Present illness Narrative Per [facility] Letter #9, [facility] requested clinicals be sent. Clinicals sent via fax on 09.03.2022. documented in this encounter [facility] 07-16-2022 History of Present illness Narrative Faxed [facility] reapplication to [phone]. Scanned into the chart. documented in this encounter [facility] 05-05-2022 History of Present illness Narrative [place] [address] [address] 21 year old female here today for post op. 03/20/2022 Turbinate and sinus surgery. Saline rinses and flonase prn. No new concerns. [facility] FOLLOW UP VISIT NOTE [place] [address] [address] Kings Hatfield is a 21 year female [...] Outside medical record review: None [facility] chart review: Previous ENT notes reviewed Discussion [...] OPTIONS: F/U PRN documented in this encounter [facility] 05-05-2022 Instructions Yoana Farrar RN - 05/05/2022 11:30 AM EST Department of Otolaryngology (ENT) Patient Instructions ENT Nurse Triage Line: [phone] (Thursday through Thursday 8:00 am - 4:00 pm) Please call the ENT Nurse Triage Line if you need to speak to a nurse for any ENT- related medical concerns prior to your next appointment. [facility] Sales Route Driver Helper: [phone] (Weekdays after 4:00 pm and on Weekends) If you have urgent ENT concerns for your child after hours that can t wait until our return to the office, please call the hospital ear machine operator and ask to speak to the ENT physician chemical reclamation equipment operator. [facility] Central [phone] (Thursday through Thursday 7:30 am -5:30 pm) Please call Central Scheduling and follow the prompts to schedule an ENT appointment if you did not schedule an appointment today, or if you need to cancel and reschedule a future appointment. For more information about the Department of Otolaryngology (Ear, Nose and Throat) at [facility], please visit our website at: [email or web address] You do not need to schedule an ENT office visit at this time but we are happy to see you in the future for any additional ENT concerns. Please call Central Scheduling at [phone] and follow the prompts to schedule an ENT office visit should you need a future appointment in the ENT clinic. Call us at [phone] to speak to a nurse if you should have any additional ENT- related questions or concerns after today s visit. documented in this encounter [facility] 04-08-2022 Telephone encounter Note Telephone Follow-Up [...] parents / patient has concerns: No concerns [facility] 04-08-2022 Miscellaneous Notes Telephone Follow-Up Excision [...] concerns: No concerns documented in this encounter [facility] 03-18-2022 Telephone encounter Note Status denied. A possible peer to peer review with ENT is possible. Awaiting to hear from them [facility] 03-18-2022 Miscellaneous Notes Status denied. A possible peer to peer review with ENT is possible. Awaiting to hear from them Status checked at this time, denied Submitted appeal, ID is [id number] Received denial on [employer] portal. Spoke with financial representative on the phone and was told to fax clinicals for reconsideration. Clinicals faxed to [phone]. Authorization pending via [employer] portal. Pediatric Surgery Pre-Schedule/Certification Information Patient Information: Name: Kings Hatfield Date of : 2000 Case and Schedule Information: Surgeon: Dr. Lakisha Narayan Case: ENT Admit Type: OP Location: OR CPT: 07683 Procedure or Exam Description: EXCISION OF SKIN AND SUBCUTANEOUS TISSUE ICD10 Code: L 72.3 Scheduled Date: 03/20/22 documented in this encounter [facility] 03-14-2022 Telephone encounter Note Status checked at this time, denied Submitted appeal, ID is [id number] [facility] 03-11-2022 Telephone encounter Note Received denial on [employer] web portal. Spoke with financial representative on the phone and was told to fax clinicals for reconsideration. Clinicals faxed to [phone]. [facility] 02-27-2022 Telephone encounter Note Authorization pending via [employer] portal. [facility] 02-06-2022 Telephone encounter Note Pediatric Surgery Pre-Schedule/Certification Information Patient Information: Name: Kings Hatfield Date of : 2000 Case and Schedule Information: Surgeon: Dr. Lakisha Narayan Case: ENT Admit Type: OP Location: OR CPT: 91370 Procedure or Exam Description: EXCISION OF SKIN AND SUBCUTANEOUS TISSUE ICD10 Code: L 72.3 Scheduled Date: 03/20/22 [facility] 08-06-2021 Note HISTORY: Eye swellin g PROCEDURE: GE Lightspeed VCT 64. Without IV contrast, images of [...] signed by Herbie Pace on 08/06/2021 1523 [facility] Special[facility] Evaluation note Diagnosis Orbital myositis, unspecified laterality- Primary Chronic sinusitis, unspecified location [facility] Diagnosis Chronic sinusitis, unspecified location- Primary [facility] Diagnosis Iron deficiency Other disorders of iron metabolism [facility] Diagnosis Orbital myositis, unspecified laterality- Primary Crohn's disease of small and large intestines with complication Immunosuppressed status Unspecified disorder of immune mechanism Chronic pansinusitis Other chronic sinusitis Pulmonary nodules Other nonspecific abnormal finding of lung field Psoriasis Other psoriasis Less than 8 weeks gestation of state, incidental [facility] Diagnosis Crohn's disease of both small and large intestine with complication- Primary Regional enteritis of small intestine with large intestine Orbital myositis, unspecified laterality 11 weeks gestation of state, incidental [facility] Diagnosis Crohn's disease of both small and large intestine with complication- Primary Regional enteritis of small intestine with large intestine [facility] Diagnosis Viral URI- Primary Acute upper respiratory infections of unspecified site 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, 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) Crohns disease of both small and large intestine with unspecified complications (K50.819) Bilateral impacted cerumen Impacted cerumen [facility] Crohn's disease in remission- Primary [facility] Orbital myositis, [...] Other psoriasis [facility] information [facility] Work Phone: Evaluation note* Diagnosis Crohn's disease of both small and large intestine with complication Regional enteritis of small intestine with large intestine [facility] Encounter for wellness examination in [...] unspecified location- Primary [facility] Diagnosis Psoriasis- Primary Other psoriasis Intertrigo- Primary Other specified erythematous condition Psoriasis Other psoriasis Psoriasis Other psoriasis Chronic sinusitis, unspecified location Chronic maxillary sinusitis Epistaxis [facility] Diagnosis Psoriasis- Primary Other psoriasis Intertrigo- Primary Other specified erythematous condition Psoriasis Other psoriasis Psoriasis Other psoriasis Perforation of left tympanic membrane- Primary Perforation of tympanic membrane, unspecified documented [facility] Diagnosis Viral URI- Primary Acute upper respiratory infections of unspecified site Fever, unspecified fever cause documented in this encounter [facility]* Diagnosis Maternal Crohn's disease affecting in second trimester ([facility])- Primary History of chronic ulcerative colitis 19 weeks gestation of [facility] Diagnosis Maternal Crohn's disease affecting in second trimester ([facility])- Primary [facility] Diagnosis Maternal Crohn's disease affecting in second trimester ([facility])- Primary History of chronic ulcerative colitis [facility]* Diagnosis Nonintractable episodic headache, unspecified headache type- Primary documented in this encounter [facility]* Diagnosis Nonintractable episodic headache, unspecified headache type- Primary documented in this encounter [facility]* Diagnosis Immunocompromised patient ([facility])- Primary Nonintractable episodic headache, unspecified headache type 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 documented in this encounter [facility]* Diagnosis Crohn's disease of both small and large intestine with complication Regional enteritis of small intestine with large intestine [facility] Diagnosis Crohn's disease of both small and large intestine with complication- Primary Regional enteritis of small intestine with large intestine [facility] Diagnosis Acute cough- Primary Acute bilateral otitis media Acute viral bronchitis Wheezing documented in this encounter [facility]* Diagnosis Crohn's disease of both small and large intestine with complication- Primary Regional enteritis of small intestine with large intestine Crohn's disease of both small and large intestine with complication Regional enteritis of small intestine with large intestine [facility] Diagnosis Crohn's disease of both small and large intestine with complication (HCC) Regional enteritis of small intestine with large intestine [facility] Diagnosis Crohn's disease of both small and large intestine with complication Regional enteritis of small intestine with large intestine [facility] Diagnosis Anorectal stricture- Primary Stenosis of rectum and anus Anorectal stricture Stenosis of rectum and anus Crohn's disease of both small and large intestine with complication Regional enteritis of small intestine with large intestine [facility] Diagnosis Anorectal stricture- Primary Stenosis of rectum and anus Anorectal stricture Stenosis of rectum and anus Crohn's disease of both small and large intestine with complication Regional enteritis of small intestine with large intestine [facility] Diagnosis Ostomy nurse consultation- Primary Anorectal stricture Stenosis of rectum and anus Crohn's disease of both small and large intestine with complication Regional enteritis of small intestine with large intestine [facility] Diagnosis Anorectal stricture- Primary Stenosis of rectum and anus Anorectal stricture Stenosis of rectum and anus Crohn's disease of both small and large intestine with complication Regional enteritis of small intestine with large intestine History of ileostomy Ileostomy status [facility] of [facility] N[facility]ative* Rubia Hernandez, CENTRAL SUPPLY CLERK - 05/26/2023 7:30 PM ESTAssociated Order(s): Ear Cerumen Removal Post-Procedure Diagnose(s): Bilateral impacted cerumen [place] is a 22 y.o. female presents with chief complaint of Earache HPI: Patient is here for earache. 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 documented in this encounter[facility]InstructionsNot on filedocumented in this encounterPro[facility] SystemInstructionsNot on filedocumented in this encounterProH[facility] SystemInstructionsNot on filedocumented in this encounterProH[facility] SystemInstructionsNot on filedocumented in this encounterAvita [facility] HospitalReason for referral (narrative)* Consultation (Routine) - New Request Specialty Diagnoses / Procedures Referred By Wayne liz Referred To Contact Rheumatology Diagnoses Orbital myositis, unspecified laterality Crohn's disease of small and large intestines with complication Immunosuppressed status Chronic pansinusitis Pulmonary nodules Psoriasis Less than 8 weeks gestation of Ioana Otero MD [address] [address] Referral ID Status Reason Start Date Expiration Date Visits Requested Visits Authorized [id number] New Request Specialty Services Required 3 7 7 [facility] for referral (narrative)* (Routine) Specialty Diagnoses / Procedures Referred By Wayne liz Referred To Contact [address] [place] [address] Referral ID Status Reason Start Date Expiration Date Visits Re quested Visits Authorized * Unlisted Procedure Code (Routine) - New Request Specialty Diagnoses / Procedures Referred By Contac t Referred To Contact Procedures PLATELET MONITORING PER PROTOCOL Clifford Rodas MD [address] [address] Phone: tel: fax: Referral ID Status Reason Start Date Expiration Date V isits Requested Visits Authorized [id number] New Request 01/17/2025 02/11/2026 1 1 * Unlisted Procedure Code (Routine) - New Request Specialty Diagnoses / Procedures Referred By Contac t Referred To Contact Procedures DVT/VTE RISK ASSESSMENT Clifford Rodas MD [address] [address] Phone: tel: fax: Referral ID Status Reason Start Date Expiration Date V isits Requested Visits Authorized [id number] New Request 01/17/2025 02/11/2026 1 1 * Radiology (Routine) - New Request Specialty Diagnoses / Procedures Referred By Contac t Referred To Contact Procedures US IMAGING REGIONAL ANESTHESIA Clifford Freeman MD [address] [place] [address] Phone: tel: fax: Referral ID Status Reason Start Date Expiration Date V isits Requested Visits Authorized [id number] New Request 01/17/2025 02/11/2026 1 1 [facility] for visit Narrative* Treatment Plan and Therapy Plan (Routine) - Authorized Specialty Diagnoses / Procedures Referred By Contac t Referred To Contact Diagnoses Crohn's disease of both small and large intestine with complication (HCC) Procedures DC GAMUNEX-C/GAMMAShakira Trent MD [address] [place] [address] Stv[address] 3[address] Med Surg [address] [place] [address] Referral ID Status Reason Start Date Expiration Date V isits Requested Visits Authorized [id number] Authorized 08/09/2021 09/08/2021 1 1 [facility] Phone: reason for visit Narrative* Endoscopy (Emergency) - Closed Specialty Diagnoses / Procedures Referred By Wayne liz Referred To Contact Diagnoses Crohn's disease of both small and large intestine with complication Procedures DIAGNOSTIC COLONOSCOPY DC COLONOSCOPY FLX DX W/COLLJ SPEC WHEN PFRMMilind Rojas, CAN 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 [address] [place] [address] Phone: tel: fax: Referral ID Status Reason Start Date Expiration Date Visits Re quested Visits Authorized [id number] Closed 08/31/2024 09/25/2025 1 1 [facility] for visit Narrative* Imaging (Routine) - Closed Specialty Diagnoses / Procedures Referred By Wayne liz Referred To Contact Radiology Diagnoses Crohn's disease of both small and large intestine with complication (HCC) Procedures CT ENTEROGRAPHY W WO CONTRAST Clifford Rodas MD [address] [facility] [address] [place] [address] Phone: tel: fax: Referral ID Status Reason Start Date Expiration Date Visits Re quested Visits Authorized [id number] Closed 10/20/2024 10/19/2025 1 1 [facility] for visit Narrative* Auth/Cert Specialty Diagnoses / Procedures Referred By Wayne liz Referred To Contact Diagnoses Crohn's disease of both small and large intestine with complication Crohn's disease of both small and large intestine with complication [K50.819] Procedures DC ANRCT XM SURG REQ ANES GENERAL SPI/EDRL DX DC SIGMOIDOSCOPY FLX DX W/COLLJ SPEC BR/WA IF PFRMD EXAM UNDER ANESTHESIA ANORECTAL SIGMOIDOSCOPY DIAGNOSTIC Clifford Rodas MD [address] [place] [address] Phone: tel: fax: [facility] [address] [place] [address] Referral ID Status Reason Start Date Expiration Date Visits Re quested Visits Authorized [id number] 1 1 [facility] Narr[facility]* Auth/Cert Specialty Diagnoses / Procedures Referred By Contac t Referred To Contact Diagnoses Anorectal stricture Crohn's disease of both small and large intestine with complication Anorectal stricture [K62.4] Crohn's disease of both small and large intestine with complication [K50.819] Procedures DC LAPAROSCOPY SURG ILEOSTOMY/JEJUNOSTOMY NON-TUBE ILEOSTOMY JEJUNOSTOMY NON-TUBE LAPAROSCOPIC Clifford Rodas MD [address] [facility] [address] [place] [address] Phone: tel: fax: [facility] [address] [place] [address] Referral ID Status Reason Start Date Expiration Date Visits Re quested Visits Authorized [id number] 1 1 [facility] Summary Purpose Family History No Family History [...] Documents on File Type Date Recorded 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 ACP-Advance Directive ACP-Power of Gypsum Calciner Latest Code Status on File Code Status Date Activated Date Inactivated Comments Full Code 07/26/2014 11:40 PM 07/28/2014 10:19 PM Full Code 07/19/2014 7:32 PM 07/25/2014 8:24 PM Full Code 07/02/2014 7:22 PM 07/07/2014 12:22 PM Full Code 04/20/2014 11:13 AM 04/26/2014 3:37 PM Full Code 03/24/2014 7:43 PM 03/25/2014 12:50 PM Documents on File Type Date Recorded 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 ACP-Advance Directive ACP-Power of Gypsum Calciner Latest Code Status on File Code Status [...] Clinic Appointment Request Ny Cool APN [address] [facility] [place] [address] Referral ID Status Reason Start Date Expiration Date Visits Requested Visits Authorized [id number] Authorization Not Required 3 1 1 Specialty Diagnoses / Procedures Referred By Contac t Referred To Contact Diagnoses Left leg swelling Procedures VASC DUPLEX VENOUS EXTREMITY LOWER LEFT DC DUPLEX EXTREM VENOUS,UNI OR LTD Christine Mckeon MD [address] [place] [phone] Referral ID Status Reason Start Date Expiration Date V isits Requested Visits Authorized [id number] New Request 08/06/2023 08/30/2024 1 1 Specialty Diagnoses / Procedures Referred By Contac t Referred To Contact Diagnoses Crohn's disease of both small and large intestine with complication Procedures DIAGNOSTIC COLONOSCOPY DC COLONOSCOPY FLX DX W/COLLJ SPEC WHEN ELIZABETH Milind Fitch, CAN 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 [address] [place] [address] Referral ID Status Reason Start Date Expiration Date Visits Re quested Visits Authorized [id number] Closed 10/22/2023 11/15/2024 1 1 Specialty Diagnoses / Procedures Referred By Contac t Referred To Contact RAD CAT Scan Diagnoses Chronic sinusitis, unspecified location Procedures CT Sinuses Stealth without Contrast Naima Coates CPNP-PC [address] [employer] [place] [address] Referral ID Status Reason Start Date Expiration Date V isits Requested Visits Authorized [id number] New Request 02/16/2024 1 1 Referral ID Status Reason Start Date Expiration Date Visits Requested Visits Authorized [id number] Authorization Not Required 02/16/2024 1 1 Specialty Diagnoses / Procedures Referred By Contac t Referred To Contact Maternal and Medicine Diagnoses Maternal Crohn's disease affecting in second trimester ([facility]) Procedures [facility] with or without consult Krista Martinez MD [address] [place] [address] [facility] Maternal Med [address] [place] [address] Referral ID Status Reason Start Date Expiration Date V isits Requested Visits Authorized [id number] Pending Review 04/27/2023 04/26/2024 1 1 Specialty Diagnoses / Procedures Referred By Contac t Referred To Contact Maternal and Medicine Diagnoses Maternal Crohn's disease affecting in second trimester ([facility]) History of chronic ulcerative colitis Procedures [facility] with or without consult Ruchi Carmona MD [address], [address] [place] [address] [facility] Maternal Med [address] [place] [address] Referral ID Status Reason Start Date Expiration Date V isits Requested Visits Authorized [id number] Pending Review 06/01/2023 05/31/2024 1 1 Additional Source Comments INFORMATION SOURCE (unrecogn ized section and content) DATE CREATED AUTHOR 01/17/2020 [facility] DATE CREATED AUTHOR AUTHOR'S ORGANIZ ATION 08/14/2021 [facility] DATE CREATED AUTHOR AUTHOR'S ORGANIZ ATION 02/15/[address] [facility] [place] [facility] pital DATE CREATED AUTHOR AUTHOR'S ORGANIZ ATION 04/05/2022 [facility] dical Specialist DATE CREATED AUTHOR AUTHOR'S ORGANIZ ATION 07/05/2023 [facility] DATE CREATED AUTHOR AUTHOR'S ORGANIZ ATION 09/09/2023 [facility] DATE CREATED AUTHOR AUTHOR'S ORGANIZ ATION 03/01/2024 [facility] DATE CREATED AUTHOR AUTHOR'S ORGANIZ ATION 03/02/2024 [facility] DATE CREATED AUTHOR AUTHOR'S ORGANIZ ATION 05/06/2024 [facility] DATE CREATED AUTHOR AUTHOR'S ORGANIZ ATION 07/16/[address] [facility] DATE CREATED AUTHOR AUTHOR'S ORGANIZ ATION 10/02/2024 [facility] dical Specialists [facility] DATE CREATED AUTHOR AUTHOR'S ORGANIZ ATION 11/01/2024 [facility] DATE CREATED AUTHOR AUTHOR'S ORGANIZ ATION 01/23/2025 [facility] Care Teams (unrecognized sec tion and content) [employer] Plant Operator Relationship Specialty Start Date [place] [address] PCP - General 08/23/12 [employer] Plant Operator Relationship Specialty Start Date End Date Chey Pillai MD [facility] [place] [address] PCP - General Family Medicine 08/06/21 [employer] Plant Operator Relationship Specialty Start Date End Date Chey Aragon MD [address] [place] [address] PCP - General Family Medicine 01/30/20 [employer] Plant Operator Relationship Specialty Start Date End Date Chey Aragon MD [address] [place] [address] PCP - General Family Medicine 01/30/20 [employer] Plant Operator Relationship Specialty Start Date End Date Chey Aragon MD [address] [place] [address] PCP - General Family Medicine 01/30/20 [employer] Operator Relationship Specialty Start Date End Date Chey Aragon MD [facility] [place] [address] PCP - General Family Medicine 01/30/20 [employer] Plant Operator Relationship Specialty Start Date End Date Chey Aragon MD [facility] [place] [address] PCP - General Family Medicine 01/30/20 [employer] Plant Operator Relationship Specialty Start Date End Date Chey Aragon MD [facility] [place] [address] PCP - General Family Medicine 01/30/20 [employer] Plant Operator Relationship Specialty Start Date End Date Chey Aragon MD [address] [place] [address] PCP - General Family Medicine 01/30/20 [employer] Plant Operator Relationship Specialty Start Date End Date Chey Aragon MD [address] [place] [address] PCP - General Family Medicine 01/30/20 [employer] Plant Operator Relationship Specialty Start Date End Date Chey Aragon MD [address] [place] [address] PCP - General Family Medicine 01/30/20 [employer] Plant Operator Relationship Specialty Start Date End Date Chey Aragon MD [address] [place] [address] PCP - General Family Medicine 01/30/20 Liquid [employer] Plant Operator Relationship Specialty Start Date End Date Chey Aragon MD [address] [place] [address] PCP - General Family Medicine 01/30/20 Liquid [employer] Plant Operator Relationship Specialty Start Date End Date Chey Aragon MD [address] [place] [address] PCP - General Family Medicine 01/30/20 [employer] Plant Operator Relationship Specialty Start Date End Date Chey Aragon MD [address] [place] [address] PCP - General Family Medicine 01/30/20 Liquid [employer] Plant Operator Relationship Specialty Start Date End Date Chye Aragon MD [address] [place] [address] PCP - General Family Medicine 01/30/20 Liquid [employer] Plant Operator Relationship Specialty Start Date End Date Chey Aragon MD [address] [place] [address] PCP - General Family Medicine 01/30/20 Liquid [employer] Plant Operator Relationship Specialty Start Date End Date Chey Aragon MD [address] [place] [address] PCP - General Family Medicine 10/27/22 Chey Aragon MD [address] [place] [address] PCP - [employer] 04/13/23 Serene Alfred CENTRAL SUPPLY CLERK [address] [place] [address] Nurse Practitioner Family Medicine 10/27/22 [employer] Plant Operator Relationship Specialty Start Date End Date Chey Aragon MD [address] [place] [address] PCP - General Family Medicine 10/27/22 Chey Aragon MD [address] [place] [address] PCP - [employer] 04/13/23 Serene Alfred CENTRAL SUPPLY CLERK [address] [place] [address] Nurse Practitioner Family Medicine 10/27/22 Team Status: Inactive Member Role Status Dates Alfredo Duong APRN Attending Provider Active Start: September 03, 2023 End: September 03, 2023 [employer] Plant Operator Relationship Specialty Start Date End Date Chey Aragon MD [address] [place] [address] PCP - General Family Medicine 10/27/22 Chey Aragon MD [address] [place] [address] PCP - [employer] 03/13/23 Serene Alfred NP [address] [place] [address] Nurse Practitioner Family Medicine 10/27/22 Liquid [employer] Plant Operator Relationship Specialty Start Date End Date Chey Aragon MD [address] [place] [address] PCP - General Family Medicine 10/27/22 Chey Aragon MD [address] [place] [address] PCP - [employer] 03/13/23 Serene Alfred NP [address] [place] [address] Nurse Practitioner Family Medicine 10/27/22 Liquid [employer] Plant Operator Relationship Specialty Start Date End Date Chey Aragon MD [address] [place] [address] PCP - General Family Medicine 10/27/22 Chey Aragon MD [address] [place] [address] PCP - [employer] 03/13/23 Serene Alfred NP [address] [place] [address] Nurse Practitioner Family Medicine 10/27/22 Liquid [employer] Plant Operator Relationship Specialty Start Date End Date Chey Aragon MD [address] [place] [address] PCP - General Family Medicine 10/27/22 Chey Aragon MD [address] [facility] [place] [address] PCP - [facility] 03/13/23 Serene Alfred NP [address] [facility] [place] [address] Nurse Practitioner Family Medicine 10/27/22 Liquid [employer] Plant Operator Relationship Specialty Start Date End Date Chey Aragon MD [address] [place] [facility] [place] [address] PCP - General Family Medicine 01/30/20 Liquid [employer] Plant Operator Relationship Specialty Start Date End Date Chey Aragon MD [address] [place] [facility] [place] [address] PCP - General Family Medicine 01/30/20 Liquid [employer] Plant Operator Relationship Specialty Start Date End Date Chey Aragon MD [address] [place] [facility] [place] [address] PCP - General Family Medicine 01/30/20 Liquid [employer] Plant Operator Relationship Specialty Start Date End Date Chey Aragon MD [address] [place] [facility] [place] [address] PCP - General Family Medicine 01/30/20 Liquid [employer] Plant Operator Relationship Specialty Start Date End Date Chey Aragon MD [address] [place] [address] PCP - General Family Medicine 01/30/20 Liquid [employer] Plant Operator Relationship Specialty Start Date End Date Chey Aragon MD [address] [place] [address] PCP - General Family Medicine 01/30/20 [employer] Plant Operator Relationship Specialty Start Date End Date Chey Aragon MD [address] [place] [address] PCP - General Family Medicine 10/27/22 Chey Aragon MD [address] [place] [address] PCP - [employer] 03/13/23 Serene Alfred NP [address] [place] [address] Nurse Practitioner Family Medicine 10/27/22 Liquid [employer] Plant Operator Relationship Specialty Start Date End Date Chey Aragon MD [address] [place] [address] PCP - General Family Medicine 10/27/22 Chey Aragon MD [address] [place] [address] PCP - [employer] 03/13/23 Serene Alfred NP [address] [place] [address] Nurse Practitioner Family Medicine 10/27/22 Liquid [employer] Plant Operator Relationship Specialty Start Date End Date Chey Aragon MD [address] [place] [address] PCP - General Family Medicine 04/29/22 Liquid [employer] Plant Operator Relationship Specialty Start Date End Date Chey Aragon MD [address] [place] [address] PCP - General Family Medicine 04/29/22 [employer] Plant Operator Relationship Specialty Start Date End Date Chey Aragon MD [address] [place] [address] PCP - General Family Medicine 04/29/22 [employer] Plant Operator Relationship Specialty Start Date End Date Chey Aragon MD [address] [place] [address] PCP - General Family Medicine 04/29/22 [employer] Plant Operator Relationship Specialty Start Date End Date Chey Aragon MD [address] [place] [address] PCP - General Family Medicine 04/29/22 [employer] Plant Operator Relationship Specialty Start Date End Date Chey Aragon MD [address] [place] [address] PCP - General Family Medicine 10/27/22 Serene Alfred NP [address] [place] [address] Nurse Practitioner Family Medicine 10/27/22 [employer] Relationship Specialty Start Date End Date Chey Aragon MD [address] [place] [address] PCP - General Family Medicine 10/27/22 Serene Alfred NP [address] [place] [address] Nurse Practitioner Family Medicine 10/27/22 [employer] Operator Relationship Specialty Start Date End Date Chey Aragon MD [address] [place] [address] PCP - General Family Medicine 10/27/22 Serene Alfred NP [address] [place] [address] Nurse Practitioner Family Medicine 10/27/22 [employer] Plant Operator Relationship Specialty Start Date End Date Chey Aragon MD [address] [place] [address] PCP - General Family Medicine 10/27/22 Serene Alfred [employer] CLERK [address] [place] [address] Nurse Practitioner Family Medicine 10/27/22 [employer] Operator Relationship Specialty Start Date End Date Chey Aragon MD [address] [place] [address] PCP - General Family Medicine 10/27/22 Serene Alfred, [employer] SUPPLY CLERK [address] [place] [address] Nurse Practitioner Family Medicine 10/27/22 [employer] Operator Relationship Specialty Start Date End Date Chey Aragon MD [address] [place] [address] PCP - General Family Medicine 10/27/22 eSrene Alfred [employer]ENTRAL SUPPLY CLERK [address] [place] [address] Nurse Practitioner Family Medicine 10/27/22 [employer] Operator Relationship Specialty Start Date End Date Chey Aragon MD [address] [place] [address] PCP - General Family Medicine 10/27/22 Serene Alfred NP [address] [place] [address] Nurse Practitioner Family Medicine 10/27/22 [employer] Operator Relationship Specialty Start Date End Date Chey Pillai MD [address] [place] [address] PCP - General Family Medicine 10/17/24 [employer] Operator Relationship Specialty Start Date End Date Chey Pillai MD [address] [facility] [place] [address] PCP - General Family Medicine 08/06/21 [employer] Operator Relationship Specialty Start Date End Date Chey Aragon MD [address] [place] [address] PCP - General Family Medicine 10/27/22 Serene Alfred NP [address] [place] [address] Nurse Practitioner Family Medicine 10/27/22 [employer] Operator Relationship Specialty Start Date End Date Chey Pillai MD [address] [place] [address] PCP - General Family Medicine 10/17/24 [employer] Operator Relationship Specialty Start Date End Date Chey Aragon MD [address] [place] [address] PCP - General Family Medicine 10/27/22 Serene Alfred NP [address] [facility] [place] [address] Nurse Practitioner Family Medicine 10/27/22 [employer] Operator Relationship Specialty Start Date End Date Chey Pillai MD [address] [facility] [place] [address] PCP - General Family Medicine 10/17/24 [employer] Operator Relationship Specialty Start Date End Date Chey Pillai MD [address] [facility] [place] [address] PCP - General Family Medicine 10/17/24 [employer] Operator Relationship Specialty Start Date End Date Chey Pillai MD [address] [facility] [place] [address] PCP - General [facility] Medicine 10/17/24 [employer] Operator Relationship Specialty Start Date End Date Chey Pillai MD [address] [facility] [place] [address] PCP - General Family Medicine 10/17/24 Scheduled [...] (New Bag - Prov ider: Loraine Walter RN)8674 (Stopped - Provider: Loraine Walter RN) PRN [...] Lee MD - Comment: [facility]. Zhou Lee1 [facility] [employer] #[id number] 06/2025) oxymetazoline 0.05 % nasal spray (Afrin) [...] at a rate of 5 mg/min., Recovery Scheduled Medication Order 01/17/2025 01/18/2025 01/19/2025 Acetaminophen (TYLENOL) tablet 975 mg (COMPLETED) 975 mg, Oral, ONCE, 1 dose, On Thu01/17/25 at 1030, Maximum dose of acetaminophen is 4000 mg from all sources in 24 hours., Pre-op/Pre-Proc 1130 (Given - Provider: Julianna Jack RN) Acetaminophen (TYLENOL) tablet 975 mg 975 mg, Oral, EVERY 8 HOURS NON-STANDARD, First dose on Thu01/17/25 at 2000, Until Discontinued, Maximum dose of acetaminophen is 4000 mg from all sources in 24 hours., Post-op/Post-Proc 1924 (Given - Provider: Kenny Mattson, DEEPTI) 0403 (Given - Provider: Kenny Mattson, DEEPTI)1235 (Given - Provider: Mikki Ramsey Student Nurse)1946 (Given - Provider: Yvonne Pino, DEEPTI) 0415 (Given - Provider: Yvonne Pino, DEEPTI)1219 (Given - Provider: Elsie Mendoza RN) Enoxaparin Sodium (LOVENOX) injection 40 mg 40 mg, Subcutaneous, EVERY 24 HOURS, First dose (after last reorder) on Thu01/18/25 at 0900, Until Discontinued, For SUBCUTANEOUS route ONLY: alternate injection sites between left and right abdominal wall, pinching location and avoiding area around navel. If unable to use abdominal sites, may use the front or side of thighs., Indications: DVT/PE prophylaxis, Post-op/Post-Proc 09 (Given - Provider: Mikki Roxy, Student Nurse) 0835 (Given - Provider: Elsie Mendoza, RN) Gabapentin (NEURONTIN) capsule 100 mg 100 mg, Oral, EVERY 8 HOURS NON-STANDARD, First dose on Thu01/17/25 at 2000, Until Discontinued, Post-op/Post-Proc 1925 (Given - Provider: Kenny Mattson, DEEPTI) 0403 (Given - Provider: Kenny Mattson, DEEPTI)1235 (Given - Provider: Mikki Ramsey, Student Nurse)1946 (Given - Provider: Yvonne Pino RN) 0415 (Given - Provider: Yvonne Pnio RN)1219 (Given - Provider: Elsie Mendoza, RN) Gabapentin (NEURONTIN) capsule 800 mg (COMPLETED) 800 mg, Oral, ONCE, 1 dose, On Thu01/17/25 at 1030, Pre-op/Pre-Proc 1130 (Given - Provider: Julianna Jack RN) Heparin injection 5,000 Units (COMPLETED) 5,000 Units, Subcutaneous, ONCE, 1 dose, On Thu01/17/25 at 1030, Pre op Nurse: Hold for patients receiving Intrathecal morphine or epidural. Consult with Anesthesia Team., Pre-op/Pre-Proc 1153 (Given - Provider: Julianna Jack RN) lidocaine 4 % patch 2 patch 2 patch, Transdermal, Administer over 12 Hours, EVERY 24 HOURS, First dose on Thu01/18/25 at 2100, Until Discontinued, Apply to shoulders bilaterally. 2123 (Patch Applied - Provider: Yvonne Pino RN - Comment: bilat shoulders) 0840 (Patch Removed - Provider: Elsie Mendoza RN) magnesium oxide (MAG-OX) tablet 800 mg (COMPLETED) 800 mg, Oral, ONCE, 1 dose, On Thu01/18/25 at 0600, Occludes small-bore tubes 0603 (Given - Provider: Kenny Mattson RN) magnesium oxide (MAG-OX) tablet 800 mg (COMPLETED) 800 mg, Oral, ONCE, 1 dose, On Thu01/19/25 at 0645, Occludes small-bore tubes 0835 (Given - Provider: Elsie Mendoza, RN) Ondansetron 4mg/2ml (ZOFRAN) injection 4 mg (COMPLETED) 4 mg, Intravenous, EVERY 6 HOURS NON-STANDARD, 4 doses, First dose on Thu01/17/25 at 2100, Last dose on Thu01/18/25 at 1500, Post-op/Post-Proc 2049 (Given - Provider: Kenny Mattson RN) 0231 (Given - Provider: Kenny Mattson RN)0908 (Given - Provider: Mikki Ramsey, Student Nurse)1546 (Given - Provider: Mikki Ramsey, Student Nurse) Potassium chloride (K-DUR) tablet ER 20 mEq (COMPLETED) 20 mEq, Oral, ONCE, 1 dose, On Thu01/19/25 at 0645, Do not crush. 0835 (Given - Provider: Elsie Mendoza RN) Scopolamine (TRANSDERM-SCOP) patch 1 patch (CANCELED)(Linked Group 1) 1 patch, Transdermal, ONCE, 1 dose, On Thu01/17/25 at 1030, Patient with history of motion sickness and/or previous postoperative nausea/vomiting. Each patch delivers 1 mg over 72 hours., Pre-op/Pre-Proc 1130 (Patch Applied - Provider: Julianna Jack RN - Comment: left)1806 (Patch Removed - Provider: Michael Brooks RN - Comment: Time automatically adjusted from order being discontinued) Continuous Medication Order 01/17/2025 01/18/2025 01/19/2025 Lactated ringers IV solution (CANCELED) Intravenous, at 100 mL/hr, CONTINUOUS, Starting on Thu01/17/25 at 1530, Until Thu01/19/25 at 0601, Post-op/Post-Proc 1603 ([employer] - Provider: Moira Tejeda RN)1801 ($$New Bag$$ - Provider: Michael Brooks RN) 0231 ($$New Bag$$ - Provider: Kenny Mattson RN)1951 ($$New Bag$$ - Provider: Yvonne Pino, DEEPTI) 0416 (Rate/Dose Verify - Provider: Yvonne Pino RN) PRN Medication Order 01/17/2025 01/18/2025 01/19/2025 Aztreonam (AZACTAM) 2 g in sodium chloride 0.9% (MB PLUS) 100 mL (total volume) IVPB (COMPLETED) 2 g, Intravenous, Administer over 30 Minutes, BEDSPREAD CUTTER HAND TO PROCEDURE, 1 dose, Starting on 01/17/25 at 1026, Until 01/17/25 at 1545, Other, Surgical Prophylaxis, Initiate antibiotic based on infusion time to complete administration 30-60 minutes prior to surgical incision., Pre-op/Pre-Proc 1405 ($$New Bag$$ - Provider: KI Mcclellan)1545 (Stopped - Provider: Moira Tejeda RN - Comment: Not infusing in PACU; end timed for OR) HYDROmorphone (DILAUDID) injection 0.5 mg ()(Linked Group 2) 0.5 mg, Intravenous, EVERY 3 HOURS NEEDED, Starting on 01/17/25 at 1758, Until 01/18/25 at 1757, Moderate Pain, Severe Pain, Use if PO not tolerable or ineffective, Higher dose may be administered if PO not tolerable or ineffective, if lower dose was previously documented as ineffective and did not result in adverse effects (RR<10, decrease in level of consciousness). Decrease back to lower dose if patient has adverse effects, or no PRN used in previous 12 hours., Post-op/Post-Proc 0914 (Given - Provider: Mikki Ramsey, Student Nurse) HYDROmorphone (DILAUDID) injection 0.5 mg (CANCELED) 0.5 mg, Intravenous, EVERY 10 MINUTES NEEDED, 8 doses, Starting on 01/17/25 at 1545, Until 01/17/25 at 1750, Moderate Pain, Severe Pain, Mild Pain, May give a total of 4mg in PACU., Recovery 1623 (Given - Provider: Moira Tejeda, DEEPTI) Melatonin tablet 6 mg 6 mg, Oral, DAILY AT BEDTIME NEEDED, Starting on 01/17/25 at 1758, Until [place] 01/19/25 at 1725, Insomnia, Post-op/Post-Proc metroNIDAZOLE (FLAGYL) 500 mg in NaCl premix IVPB (COMPLETED) 500 mg, Intravenous, at 200 mL/hr, Administer over 30 Minutes, BEDSPREAD CUTTER HAND TO PROCEDURE, 1 dose, Starting on 01/17/25 at 1026, Until 01/17/25 at 1545, Other, Surgical Prophylaxis, Initiate antibiotic based on infusion time to complete administration 30-60 minutes prior to surgical incision. , Pre-op/Pre-Proc 1411 ($$New Bag$$ - Provider: KI Mcclellan)1545 (Stopped - Provider: Moira Tejeda RN - Comment: Not infusing in PACU; end timed for OR) Ondansetron 4mg/2ml (ZOFRAN) injection 4 mg 4 mg, Intravenous, EVERY 6 HOURS NEEDED, Starting on Thu01/18/25 at 1522, Until [place] 01/19/25 at 1725, Nausea / Vomiting, 2nd Line Nausea / Vomiting, Post-op/Post-Proc oxyCODONE (ROXICODONE) tablet 10 mg(Linked Group 3) 10 mg, Oral, EVERY 4 HOURS NEEDED, Starting on 01/17/25 at 1758, Until [place] 01/19/25 at 1725, Mild Pain, Moderate Pain, Severe Pain, Higher dose may be administered if lower dose was previously documented as ineffective and did not result in adverse effects (RR<10, decrease in level of consciousness). Decrease back to lower dose if patient has adverse effects, or no PRN used in previous 12 hours., Post-op/Post-Proc 205 (Given - Provider: Kenny Mtatson RN) 1554 (See Alternative - Provider: Mikki Ramsey, Student Nurse) 0414 (See Alternative - Provider: Yvonne Pino RN) oxyCODONE (ROXICODONE) tablet 10 mg(Linked Group 4) 10 mg, Oral, EVERY 4 HOURS NEEDED, Starting on [place] 01/19/25 at 1922, Until [place] 01/19/25 at 1725, Moderate Pain, Severe Pain, Higher dose may be administered if lower dose was previously documented as ineffective and did not result in adverse effects (RR<10, decrease in level of consciousness). Decrease back to lower dose if patient has adverse effects, or no PRN used in previous 12 hours., Post-op/Post-Proc oxyCODONE (ROXICODONE) tablet 5 mg(Linked Group 3) 5 mg, Oral, EVERY 4 HOURS NEEDED, Starting on 01/17/25 at 1758, Until [place] 01/19/25 at 1725, Mild Pain, Moderate Pain, Severe Pain, Use as initial dose. Higher dose may be administered if lower dose was previously documented as ineffective and did not result in adverse effects (RR<10, decrease in level of consciousness)., Post-op/Post-Proc 2055 (See Alternative - Provider: Kenny Mattson, DEEPTI) 1554 (Given - Provider: Mikki Ramsey, Student Nurse) 0414 (Given - Provider: Yvonne Pino, DEEPTI) oxyCODONE (ROXICODONE) tablet 5 mg(Linked Group 4) 5 mg, Oral, EVERY 4 HOURS NEEDED, Starting on [place] 01/19/25 at 1922, Until [place] 01/19/25 at 1725, Moderate Pain, Severe Pain, Use as initial dose. Higher dose may be administered if lower dose was previously documented as ineffective and did not result in adverse effects (RR<10, decrease in level of consciousness)., Post-op/Post-Proc Phenol (CHLORASEPTIC) 1.4 % oral spray 1 spray 1 spray, Mouth/Throat, NEEDED, Starting on Thu01/17/25 at 1758, Until [place] 01/19/25 at 1725, Sore Throat, Patient may self-administer., Post-op/Post-Proc Prochlorperazine (COMPAZINE) injection 10 mg(Linked Group 5) 10 mg, Intravenous, EVERY 6 HOURS NEEDED, Starting on Thu01/17/25 at 1758, Until [place] 01/19/25 at 1725, Nausea / Vomiting, moderate nausea and vomiting, 1st line (if NOT tolerating PO), Maximum of 40mg/day. For IV route: Give undiluted by slow IV push at a rate of 5 mg/min., Post-op/Post-Proc Prochlorperazine (COMPAZINE) tablet 10 mg(Linked Group 5) 10 mg, Oral, EVERY 6 HOURS NEEDED, Starting on Thu01/17/25 at 1758, Until [place] 01/19/25 at 1725, Nausea / Vomiting, Refractory Nausea Vomiting, 1st line (if tolerating PO), Post-op/Post-Proc Linked Groups Order Group 1: Scopolamine (TRANSDERM-SCOP) patch 1 patch (CANCELED)Jump to med 1 patch, Transdermal, ONCE, 1 dose, On Thu01/17/25 at 1030, Patient with history of motion sickness and/or previous postoperative nausea/vomiting. Each patch delivers 1 mg over 72 hours., Pre-op/Pre-Proc And VERIFY LINKED PATCH PLACEMENT (CANCELED) Other, EVERY 12 HOURS, First dose on Thu01/17/25 at 1030, Until Discontinued, Confirm continued adhesion of scopolamine 1.5 mg/72hr patch at documented site. Group 2: HYDROmorphone (DILAUDID) injection 0.2 mg () 0.2 mg, Intravenous, EVERY 3 HOURS NEEDED, Starting on Thu01/17/25 at 1758, Until Thu01/18/25 at 1757, Moderate Pain, Severe Pain, Use if PO not tolerable or ineffective, Use as initial dose. Administer only if PO not tolerable or ineffective. Higher dose may be administered if lower dose was previously documented as ineffective and did not result in adverse effects (RR<10, decrease in level of consciousness)., Post-op/Post-Proc Or HYDROmorphone (DILAUDID) injection 0.5 mg ()Jump to med 0.5 mg, Intravenous, EVERY 3 HOURS NEEDED, Starting on Thu01/17/25 at 1758, Until Thu01/18/25 at 1757, Moderate Pain, Severe Pain, Use if PO not tolerable or ineffective, Higher dose may be administered if PO not tolerable or ineffective, if lower dose was previously documented as ineffective and did not result in adverse effects (RR<10, decrease in level of consciousness). Decrease back to lower dose if patient has adverse effects, or no PRN used in previous 12 hours., Post-op/Post-Proc Group 3: oxyCODONE (ROXICODONE) tablet 5 mgJump to med 5 mg, Oral, EVERY 4 HOURS NEEDED, Starting on Thu01/17/25 at 1758, Until [place] 01/19/25 at 1725, Mild Pain, Moderate Pain, Severe Pain, Use as initial dose. Higher dose may be administered if lower dose was previously documented as ineffective and did not result in adverse effects (RR<10, decrease in level of consciousness)., Post-op/Post-Proc Or oxyCODONE (ROXICODONE) tablet 10 mgJump to med 10 mg, Oral, EVERY 4 HOURS NEEDED, Starting on Thu01/17/25 at 1758, Until [place] 01/19/25 at 1725, Mild Pain, Moderate Pain, Severe Pain, Higher dose may be administered if lower dose was previously documented as ineffective and did not result in adverse effects (RR<10, decrease in level of consciousness). Decrease back to lower dose if patient has adverse effects, or no PRN used in previous 12 hours., Post-op/Post-Proc Group 4: oxyCODONE (ROXICODONE) tablet 5 mgJump to med 5 mg, Oral, EVERY 4 HOURS NEEDED, Starting on [place] 01/19/25 at 1922, Until [place] 01/19/25 at 1725, Moderate Pain, Severe Pain, Use as initial dose. Higher dose may be administered if lower dose was previously documented as ineffective and did not result in adverse effects (RR<10, decrease in level of consciousness)., Post-op/Post-Proc Or oxyCODONE (ROXICODONE) tablet 10 mgJump to med 10 mg, Oral, EVERY 4 HOURS NEEDED, Starting on [place] 01/19/25 at 1922, Until [place] 01/19/25 at 1725, Moderate Pain, Severe Pain, Higher dose may be administered if lower dose was previously documented as ineffective and did not result in adverse effects (RR<10, decrease in level of consciousness). Decrease back to lower dose if patient has adverse effects, or no PRN used in previous 12 hours., Post-op/Post-Proc Group 5: Prochlorperazine (COMPAZINE) injection 10 mgJump to med 10 mg, Intravenous, EVERY 6 HOURS NEEDED, Starting on 01/17/25 at 1758, Until [place] 01/19/25 at 1725, Nausea / Vomiting, moderate nausea and vomiting, 1st line (if NOT tolerating PO), Maximum of 40mg/day. For IV route: Give undiluted by slow IV push at a rate of 5 mg/min., Post-op/Post-Proc Or Prochlorperazine (COMPAZINE) tablet 10 mgJump to med 10 mg, Oral, EVERY 6 HOURS NEEDED, Starting on 01/17/25 at 1758, Until [place] 01/19/25 at 1725, Nausea / Vomiting, Refractory Nausea Vomiting, 1st line (if tolerating PO), Post-op/Post-Proc Reason for Visit (unrecogniz ed section and content) Reason Comments New Patient Specialty Diagnoses / Procedures Referred By Contac t Referred To Contact Colon & Rectal Surgery Diagnoses Crohn's disease of both small and large intestine with complication Milind Fitch, CAN 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 [address] [place] [address] Phone: tel: fax: Referral ID Status Reason Start Date Expiration Date Visits Requested Visits Authorized [id number] New Request Specialty Services Required 09/07/2024 10/02/2025 [...] Clinic Appointment Request [facility] [address] [place] [address] Referral ID Status Reason Start Date Expiration Date Visits Requested Visits Authorized [id number] Authorization Not Required 3 1 1 Reason Comments FOLLOW-UP Reason Onset Date Comments Update 01/09/2023 Reason Onset Date Comments Results 01/21/2023 Reason Comments New Patient Specialty Diagnoses / Procedures Referred By Contac t Referred To Contact Gastroenterology Diagnoses Crohn's disease of both small and large intestine with complication Javier Agee MD [address] [place] [address] [facility] [address] [place] [address] Referral ID Status Reason Start Date Expiration Date V isits Requested Visits Authorized [id number] Pending Review 01/16/2023 02/10/2024 1 1 Reason [...] 8 weeks gestation of Ioana Otero MD [address] [place] [id number] Christine Mckeon MD [address] [place] [address] Referral ID Status Reason Start Date Expiration Date V isits Requested Visits Authorized [id number] Pending Review 02/05/2023 03/01/2024 1 1 Specialty Diagnoses / Procedures Referred By Wayne liz Referred To Contact Diagnoses Crohn's disease of both small and large intestine with complication Procedures DIAGNOSTIC COLONOSCOPY DC COLONOSCOPY FLX DX W/COLLJ SPEC WHEN PFANKITD Milind Fitch, CAN 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 [address] [place] [id number] Referral ID Status Reason Start Date Expiration Date Visits Re quested Visits Authorized [id number] Closed 10/22/2023 11/15/2024 1 1 Reason Comments [...] Sinuses Stealth without Contrast Naima Coates CPNP-PC [address] [place] [address] Referral ID Status Reason Start Date Expiration Date Visits Requested Visits Authorized [id number] Authorization Not Required 02/16/2024 1 1 Reason Onset Date Comments Change Appointment 03/15/2024 Specialty Diagnoses / Procedures Referred By Wayne liz Referred To Contact Diagnoses Chronic maxillary sinusitis Epistaxis Procedures DC NASAL ENDOSCOPY DIAGNOSTIC UNI/BI SPX DC CONTROL NASAL HEMORRHAGE ANTERIOR SIMPLE DC NSL/SINUS NDSC MAX ANTROST W/RMVL TISS MAX SINUS DC OTOLARYNGOLOGIC EXAM UNDER GENERAL ANESTHESIA DC MYRINGOPLASTY ENDOSCOPY, BILATERAL NOSE, DIAGNOSTIC SIMPLE CONTROL OF EPISTAXIS MAXILLARY BILATERAL ANTROSTOMY, WITH TISSUE REMOVAL bilateral ear EXAM UNDER ANESTHESIA POSSIBLE LEFT MYRINGOPLASTY, USING PAPER PATCH IF INDICATED Referral ID Status Reason Start Date Expiration Date Visits Re quested Visits Authorized [id number] 1 1 Reason Comments URI Reason Comments HX Colitis Crohn's Disease Reason Comments Migraine Past 2-4 weeks pt wilks s been having migraines. Reason Comments Migraine Reason Comments Follow-up Reason Comments Patient Education CERAS Reason Comments Education Goals (unrecognized section and content) Goals may [...] BE BASED ON THE PRIMARY CLINICAL RECORDS. [employer] [facility]. provides no warranty or guarantee of the accuracy or completeness of information in this document.
[2025-01-27 13:07] LABS: Hematocrit 40.9 % (36.0-48.0); Hemoglobin 13.6 g/dL (12.0-16.0); Immature Granulocytes Abs Auto 0.07 10^3/uL (0.00-0.03); Immature Granulocytes Pct Auto 0.6 % (0.0-0.5); Lymphocytes Absolute Auto 1.3 10^3/uL (1.2-3.8); Mean Corpuscular HGB Conc 33.3 g/dL (29.9-35.2); Mean Corpuscular Hemoglobin 28.7 pg (26.7-34.0); Mean Corpuscular Volume 86.3 fL (81.0-99.0); Platelet Count 303 10^3/uL (150-450); Red Blood Count 4.74 10^6/uL (4.20-5.40); White Blood Count 12.2 10^3/uL (4.0-11.0)
[2025-01-27 14:20] LABS: Iron 30.0 ug/dL (50.0-170.0); Percent Iron Saturation 11.2 %; Total Iron Binding Capacity 267.0 ug/dL (250.0-450.0)
[2025-01-27 14:57] LABS: Ferritin 464.0 ng/mL (8.0-252.0)
[2025-01-28 09:08] LABS: Transferrin 216 mg/dL (192-364)
== END 2025-01-27 11:48 | disposition home or self-care (01) ==
LOC: LAB 11:49
PROVIDERS: PCP Family Medicine; Visit Provider Family Medicine
DX: D50.9 Iron deficiency anemia, unspecified (principal)
CPT/HCPCS: 36415; 82728; 83540; 83550; 84466; 85025

== ENCOUNTER 2025-02-28 14:49 | Emergency (ER) | payer BC, MEDICAID, SELFPAY ==
[2025-02-28 14:53] VITALS: BP 98/79; PULSE 77; TEMP 36.8; O2SAT 98; BMI 25.3
--- OUTSIDE RECORDS SUMMARY | 2025-02-28 15:00 | XMS_ITS | CCD ---
Author Organization [facility] Care Team Providers Care Retail Stocker Name Role Phone Otilia Sinclair Primary Care Provider Chey Pillai MD Primary Care Pr ovider STACEY ORANTES Referring Unavailable OTILIA SINCLAIR Primary Care Unavailable JESSIE LENZ Admitting Unavailable JESSIE LENZ Attending Unavailable STACEY ORANTES Referring Unavailable CHEY PILLAI Primary Care [...] Unavailable Chey Aragon MD Primary Care Provider [phone] Chey Aragon MD Primary Care Provider [phone] Unavailable Primary Care Provider UnavailChey Meek MD Primary Care Provider Tima COLIN, Serene Ventura Unavailable Chey Aragon MD Unavailable ALFREDO DUONG Referring Unavailable CHEY ARAGON Primary Care Unavailable RUCHI CARMONA Attending Unavailable ALFREDO DUONG Referring Unavailable CHEY ARAGON Primary Care Unavailable ALFREDO DUONG Referring Unavailable CHEY ARAGON Primary Care Unavailable ALFREDO DUONG Referring Unavailable CHEY ARAGON Primary Care Unavailable SHANTELL Duong Attending Provider Alfredo Duong Attending Unavailable Alfredo Duong Admitting Unavailable Chey Aragon MD Unavailable [phone] Jaxon BROCK-PC, Naima Campbell Primary Care UnaCHEY Rodriguez Primary Care Unavailable ROSS MAGALLON Attending Unavailable CHEY ARAGON Primary Care Unavailable [facility] AT [facility] Referring Un available DANNY LEE Attending Unavailable CHEY ARAGON Primary Care Unavailable DANNY LEE Attending Unavailable CHEY ARAGON Referring Unavailable CHEY ARAGON Primary Care Unavailable DANNY LEE Attending Unavailable DANNY LEE Admitting Unavailable CHEY ARAGON Primary Care Unavailable NAIMA COATES Referring Unavailable Chey Aragon MD Primary Care Provider JELLY LATHAM Attending Unavailable Chey Pillai MD Primary Care Prov ider Chey Pillai MD Primary Care Pr ovider CLIFFORD RODAS Referring Unavailable CHEY PILLAI Primary Care Un available Chey Aragon MD Unavailable Tima COLIN, Serene Ventura Unavailable CLIFFORD RODAS Referring Unavailable CHEY PILLAI Primary Care Unav sanjanaable YVETTE MAR Attending Unavailable SELF, SELF Referring Unavailable MILIND FITCH Attending Unavailable CHEY PILLAI Primary Care Unav ailable RUBINAE, MILIND Referring Unavailable CLIFFORD RODAS Attending Unavailable KACEY DALTON Attending Unavailable LITTLE, MILIND Referring Unavailable RUBINAE, MILIND Referring Unavailable DARI WALTERS Attending Unavailable SELF, SELF Referring Unavailable WINKLE, MILIND Attending Unavailable KALADY, CLIFFORD Joseph Referring Unavailable GREENSLADE-MAHESH, [facility] Unav ailable KALADY, CLIFFORD Joseph Attending Unavailable GREENSLADE-MAHESH, CHEY Referring Unav ailable GREENSLADE-MAHESH, [facility] Unav ailable ZAID, YVETTE Ventura Attending Unavailable GREENSLADE-MAHESH, [facility] Unav ailable SELF, SELF Referring Unavailable WINKLE, MILIND Attending Unavailable GREENSLADE-MAHESH, [facility] Unav ailable WINKLE, MILIND Referring Unavailable KALADY, CLIFFORD Joseph Attending Unavailable KALADY, CLIFFORD Joseph Attending Unavailable KALADY, CLIFFORD F Referring Unavailable GREENSLADE-MAHESH, [facility] Unav ailable KALADY, CLIFFORD F Referring Unavailable GREENSLADE-MAHESH, [facility] Unav ailable KALADY, CLIFFORD Joseph Referring Unavailable KALADY, CLIFFORD Joseph Attending Unavailable GREENSLADE-MAHESH, [facility] Unav ailable WINKLE, MILIND Attending Unavailable SELF, SELF Referring Unavailable KALADY, CLIFFORD F Referring Unavailable GREENSLADE-MAHESH, [facility] Unav ailable ZAID, YVETTE Ventura Attending Unavailable KALADY, CLIFFORD Joseph Admitting Unavailable GREENSLADE-MAHESH, [facility] Unav ailable WINKLE, MILIND Referring Unavailable KALADY, CLIFFORD Joseph Attending Unavailable KALADY, CLIFFORD Joseph Attending Unavailable KALADY, CLIFFORD Joseph Admitting Unavailable GREENSLADE-MAHESH, [facility] Unav ailable WINKLE, MILIND Referring Unavailable Serene Joseph NP Unavailable KATIE ACEVES Attending Unavailab CHEY Mazariegos Attending Unavailable FRANCK HERNANDEZ Referring Unavailable ONEAL, KATIE Ventura Attending Unavailab SERENE Urena Referring Unavailab SERENE Urena Attending Unavailab le CHEY ARAGON Attending Unavailable SERENE JOSEPH Attending Unavailab le Allergies Allergy ClassificationReported Allergen(s)Allergy TypeDate of OnsetReaction(s) Facility (20 sources)cefdinir; Translations: [CEFDINIR]Drug Nggopcn18-00-3194Pfpq[facility] (4 sources)Sulfamethoxazole / Trimethoprim; Translations: [Bactrim]Drug Allergy 91-19-0434DvaqbyomvmiOpgwq Health (1 source)cefdinirDrug Qrddcbx58-15-7110Uth [facility] (1 source)inFLIXimabDrug Hhjskbn27-29-3904Bnw [facility] (1 source)PentamidineDrug Zmfoygg10-37-8567Bnc [facility] (1 source)VancomycinDrug Clrkuuy22-35-8658Cbt [facility] (20 sources)inFLIXimab; Translations: [INFLIXIMAB]Drug Vuzvczj67-02-9364Mighn (See Comments)[facility] (20 sources)Pentamidine; Translations: [PENTAMIDINE]Drug Djvbfop29-11-5135 [facility]acheP[facility] Work Phone: (20 sources)Sulfonamides (Antibiotic); Translations: [SULFA (SULFONAMIDE ANTIBIOTICS)]Propensity to adverse reactions to majt93-92-7090OnntAbfwcqfeet [facility] (20 sources)Vancomycin; Translations: [VANCOMYCIN ANALOGUES]Drug Allergy 64-60-8523Ydhneb SyndromePike Community Hospital (20 sources)cefdinirDrug Jzycewf04-08-2309Oqbjrnqiwdp, [facility] (20 sources)inFLIXimabDrug Jcijvfi40-11-3788CbtekCXY [facility] (20 sources)PentamidineDrug Udhicyz58-15-0042Hirpjuhc, [facility] (20 sources)Sulfamethoxazole / Trimethoprim; Translations: [SULFAMETHOXAZOLE-TRIMETHOPRIM]Drug Tjzsfus32-85-6456QudojgwotvvLicking [facility] Hospital Medications Current Medications MedicationDrug Class(es)DatesSig (Normalized)Sig (Original)0.9% NaCl 0.9 % SolP 100 mL with riTUXimab 10 mg/mL Conc (20 sources)0.9% NaCl 0.9 % SolP 100 mL with riTUXimab 10 mg/mL Conc Inject into IV. Suspended0.9% NaCl 0.9 % SolP 100 mL with riTUXimab 10 mg/mL Conc Inject into IV. Active0.9% NaCl 0.9 % SolP 100 mL with riTUXimab 10 mg/mL Conc Inject into IV. 0 [id number] 200 actuat albuterol 0.09 mg/actuat metered dose inhaler (20 sources)beta2-Adrenergic AgonistStart: 62-30-8753ccednguxx 0.63 MG/3ML nebulizer solution 0.63 mgStart: 06-15-2023 End: 69-97-0153oukj 2 puff(s) by inhalation every four hours for wheezing albuterol HFA 90 mcg/act inhaler Indications: Wheezing Inhale 2 puffs every 4 (four) hours if needed for wheezing 18 g 09/26/2024 09/26/2025 Active azithromycin 250 mg oral tablet (6 sources)Macrolide AntimicrobialStart: 14-91-3238joxjncwkugqb (Zithromax) 250 MG tablet Indications: Acute bilateral otitis media Take 2 tablets (500mg) on day 1, then 1 tablet daily (250mg) on days 2-5 6 tablet 09/26/2024 Active Calcium-Vitamin D-Vitamin K (VIACTIV PO) (3 sources)Calcium-Vitamin D-Vitamin K (VIACTIV PO) Take by mouth 2 times daily. ActiveCalcium-Vitamin D-Vitamin K (VIACTIV PO) Take by mouth 2 times daily. 0 Activecarboxymethylcellulose sodium 10 mg/ml ophthalmic solution (3 sources)Start: 82-81-1281mrbd 1 drop(s) into the eye(s) three times daily carboxymethylcellulose 1 % ophthalmic solution Place 1 drop into the left eye 3 times daily. 1 Bottle 4 07/25/2014 Activecholecalciferol 0.05 mg oral tablet (1 source)Vitamin DStart: 21-38-6338guzm 1 tablet by mouth once daily cholecalciferol 50 MCG (2000 UNIT) tablet Take 1 tablet by mouth daily. 90 tablet 3 11/06/2023 Activeciprofloxacin 3 mg/ml / dexamethasone 1 mg/ml otic suspension (1 source)Corticosteroid, Quinolone AntimicrobialStart: 84-89-5297sjxvtyhlxrpyq- dexAMETHasone (CIPRODEX) 0.3-0.1 % otic suspension 10 drops in saline 1 each 1 06/26/2023 Activecodeine phosphate 2 mg/ml / guaiFENesin 20 mg/ml oral solution (3 sources)Opioid AgonistStart: 77-22-1605iajf 10 mL by mouth every six hours as needed for coughguaiFENesin-codeine (GUAIFENESIN AC) 100-10 MG/5ML liquid Take 10 mLs by mouth every 6 hours as needed for Cough. 1 Bottle 0 07/07/2014 Active dextrose 5 % solution 500 mL with riTUXimab 500 MG/50ML solution 375 mg/m2 (20 sources)dextrose 5 % solution 500 mL with riTUXimab 500 MG/50ML solution 375 mg/m2 Infuse into a venous catheter ActivediphenhydrAMINE hydrochloride 25 mg oral tablet (4 sources)Histamine-1 Receptor AntagonistStart: 31-89-6152fwignbngizUUWTF (BENADRYL) tablet 25 mgStart: 88-66-4630muql 10 mL by mouth every six hours as neededdiphenhydrAMINE (BENADRYL) 12.5 MG/5ML elixir Take 10 mLs by mouth every 6 hours as needed for Itching. 70 mL 1 04/26/2014 Activedocusate sodium 100 mg oral capsule (20 sources)Start: 11-02-2024 End: 16-39-4380kwxh 1 capsule by mouth twice dailyDocusate 100 MG capsule Take 1 capsule by mouth 2 times daily. 60 capsule 1 11/02/2024 01/01/2025 ActiveStart: 06-24-2023 End: 53-83-4461pfpk 1 capsule by mouth twice dailydocusate (COLACE, DULCOLAX) 100 MG CAPS Take 100 mg by mouth 2 times daily 06/24/2023 ActivefentaNYL citrate (PF) 10 mcg/1 mL injection (Sublimaze) (1 source)Start: 03-22-2024 End: mcg (0.538 mcg/kg), Intravenous, Q5MIN PRN, Other, Pain - Moderate, Pain - Severe, Use first prnacute pain (scale 5-10) - See administration instructions, Starting on Thu03/22/24 at 1457, Until Thu03/22/24 at 2359, Phase Iferrous sulfate 325 mg delayed release oral tablet (20 sources)Start: 86-71-4969vapp 1 tablet by mouth in the morningferrous sulfate (Fe Tabs) 325 (65 Fe) MG EC tablet Indications: Anemia during in third trimester (HHS-HCC) Take 1 tablet (325 mg) by mouth in the morning and 1 tablet (325 mg) before bedtime. Do not crush, chew, or split.. 60 tablet 3 06/24/2023 ActiveStart: 98-00-1959ordw 1 tablet by mouth twice dailyferrous sulfate (FE TABS 325) 325 (65 Fe) MG EC tablet Take 1 tablet by mouth 2 times daily 06/24/2023 Activefluocinolone acetonide 0.1 mg/ml topical oil (6 sources)CorticosteroidStart: 31-64-0391erqmndbejcjb (SYNALAR) 0.025 % ointment Apply to affected area 1 Tube 0 07/07/2014 ActiveStart: 07-07-2014 fluocinolone (DERMA-SMOOTHE) 0.01 % external oil Apply to scalp at bedtime with salicylic acid. Cover scalp with shower cap and wash out in the morning. 1 Bottle 0 07/07/2014 ActiveLactobacillus (3 sources)Start: 94-73-4170uphv 1 tablet by mouth three times daily lactobacillus (BACID) TABS Take 1 tablet by mouth 3 times daily. 30 tablet 1 07/25/2014 Activelansoprazole 30 mg delayed release oral capsule (3 sources)Proton Pump InhibitorStart: 50-28-7587bnlb 1 capsule by mouth once dailylansoprazole (PREVACID) 30 MG capsule Take 1 capsule by mouth daily. 30 capsule 0 07/07/2014 ActivelevoFLOXacin 500 mg oral tablet (1 source)Quinolone AntimicrobialStart: 03-22-2024 End: 99-86-7038zhcd 1 tablet by mouth once dailylevoFLOXacin 500 mg tablet (Levaquin) Take 1 tablet by mouth once daily for 5 days. 5 tablet 03/22/2024 03/27/2024 Activelidocaine 0.05 mg/mg medicated patch (10 sources)Antiarrhythmic, Amide Local AnestheticStart: 28-51-1579tavfr 1 dose transdermal route once dailylidocaine (Lidoderm) 5 % patch Place 1 patch on the skin 1 (one) time each day at the same time 01/19/2025 ActiveStart: 01-19-2025 lidocaine 5 % Patch patch Place 1 patch on skin every 24 hours. Max of 12 hours of application thenremove. 5 patch 01/19/2025 ActiveStart: 01-18-2025 End: 72-43-0040zwpyo 2 doses transdermal route every twenty-four hours2 patch, Transdermal, Administer over 12 Hours, EVERY 24 HOURS, First dose on Thu01/18/25 at 2100, Until Discontinued, Apply to shoulders bilaterally.loratadine 10 mg oral tablet (20 sources)take 1 tablet by mouth once dailyloratadine 10 mg tablet Take 1 tablet by mouth once daily. ActiveMultiple Vitamins-Minerals (THERAPEUTIC MULTIVITAMIN-MINERALS) tablet (3 sources)take 1 tablet by mouth once dailyMultiple Vitamins-Minerals (THERAPEUTIC MULTIVITAMIN-MINERALS) tablet Take 1 tablet by mouth daily Active take 1 tablet by mouth once dailyMultiple Vitamins-Minerals (THERAPEUTIC MULTIVITAMIN-MINERALS) tablet Take 1 tablet by mouth daily.0 Activenystatin 100 unt/mg topical powder (2 sources)Polyene AntifungalStart: 97-17-0839rperxqps 730618 UNIT/GM Powder powder Indications: Cutaneous candidiasis Apply 1 Application topically daily as needed. Use with ostomy pouch changes, apply to peristomal skin. 60 g 1 01/27/2025 ActivepredniSONE 10 mg oral tablet (16 sources)Start: 09-07-2024 End: 87-03-0471dkyp 4 tablets by mouth once daily, then take 3 tablets by mouth once daily, then take 2 tablets bymouth once daily, then take 1 tablet by mouth once dailypredniSONE 10 MG tablet Take 4 tablets by mouth daily for 7 days, THEN 3 tablets daily for 7 days, THEN 2 tablets daily for 7 days, THEN 1 tablet daily for 7 days. 70 tablet 09/07/2024 10/05/2024 ActiveStart: 06-17-2024 End: 71-64-2709adhfvePMEO (Deltasone) 20 MG tablet Take by mouth 06/17/2024 08/01/2024 Discontinued (Therapy completed)Start: 06-08-2024 End: 18-12-7848jzjiquAKAE (Deltasone) 10 MG tablet 06/08/2024 08/01/2024 DiscontinuedPrenatal MV-Min-Fe Fum-FA-DHA ( 1 PO) (20 sources) MV-Min-Fe Fum-FA-DHA ( 1 PO) Take 1 tablet by mouth daily Active End: 81-22-7735Bjekbhfd MV-Min-Fe Fum-FA-DHA ( 1 PO) Take by mouth. 08/01/2024 DiscontinuedPrenatal MV-Min-Fe Fum-FA-DHA ( 1 PO) Take by mouth. ActivePrenatal MV-Min-Fe Fum-FA-DHA ( 1 PO) Take by mouth. 0 Activeprenatal vit,yovanny 74/iron/folic ( VITAMIN 1+1 ORAL) (3 sources)take 1 tablet by mouth in the morningprenatal vit,yovanny 74/iron/folic ( VITAMIN 1+1 ORAL) Take 1 tablet by mouth in the morning. 0Active Vit-Fe Fumarate-FA ( PO) (12 sources) Vit-Fe Fumarate-FA ( PO) Take by mouth. Active Vit-Fe Fumarate-FA ( PO) Take by mouth. 0 ActiveRisankizumab- rzaa (Skyrizi) 360 MG/2.4ML Solution Cartridge (9 sources)Start: 08-55-6490Ibbotgtqybuz-rzaa (Skyrizi) 360 MG/2.4ML Solution Cartridge Indications: Crohn's disease of both small and large intestine with complication Inject 360 mg under the skin every 56 days. 2.4 mL 6 09/07/2024 Activerisankizumab-rzaa (Skyrizi) 600 MG/10ML Solution (9 sources)Start: 48-31-1384kjszgwlazpni-rzaa (Skyrizi) 600 MG/10ML Solution Indications: Crohn's disease of both small and large intestine with complication 600 mg by Intravenous route every 28 days for 3 doses. Infuse Kltxcmz365qc every 4 weeks x 3 doses. No premeds. Rate and dilution per ladle filler package insert or perpharmacist discretion. Infusion reaction medications per pharmacy or infusion suite standard. 10 mL2 09/12/2024 ActiveStart: 09-12-2024 End: 04-55-1912jiavafbgubhs-rzaa (Skyrizi) 600 MG/10ML Solution Indications: Crohn's disease of both small and large intestine with complication 600 mg by Intravenous route every 28 days for 3 doses. Infuse Oxifjnn782mk every 4 weeks x 3 doses. No premeds. Rate and dilution per ladle filler package insert or per pharmacist discretion. Infusion reaction medications per pharmacy or infusion suite standard. 10 mL2 09/12/2024 11/08/2024 ActiveRisankizumab-rzaa (Skyrizi) 600 MG/10ML solution (3 sources)Start: 09-12-2024 End: 60-53-0490Ixiqcrehriot-rzaa (Skyrizi) 600 MG/10ML solution Infuse 600 mg into a venous catheter every 28 (twenty-eight) days 09/12/2024 11/08/2024 Active 10 ml riTUXimab 10 mg/ml injection (20 sources)UF09-dqcvuxfw Cytolytic Antibody End: 11-94-4594vxLWVatmk (Rituxan) 100 MG/10ML chemo injection as directed Intravenous ActiveriTUXimab (RITUXAN IV) by Intravenous route. Every 6 months Activesalicylic acid 60 mg/ml topical lotion (3 sources)Start: 82-34-1714Qwegvabpg Acid 6 % LOTN Apply to scalp at bedtime with fluocinolone 0.01% oil. Cover scalp with shower cap and wash out in the morning. 1 Bottle 0 07/07/2014 Activesodium bicarbonate-sodium chloride packet for sinus irrigation (Neilmed Sinus) (1 source)Start: 03-22-2024 End: 45-13-6897ipwi 1 dose nasal route twice daily, then take 1 dose nasal route twice dailysodium bicarbonate-sodium chloride packet for sinus irrigation (Neilmed Sinus) Place 1 Packet in each nostril twice daily for 14 days. Mix 1 packet as directed on package and use to rinse sinuses twotimes daily. 50 Each 03/22/2024 04/05/2024 Activesodium chloride, sodium bicarb-nasal rinse squeeze bottle with packet (Neilmed Sinus) (20 sources)Start: 77-04-8408brog 1 dose nasal route twice daily, then take 1 dose nasal route twice dailysodium chloride, sodium bicarb-nasal rinse squeeze bottle with packet (Neilmed Sinus) Place 1 Packet in each nostril twice daily. Mix 1 packet as directed on package and use to rinse sinuses two times daily. 100 Each 03/20/2022 SuspendedStart: 85-63-8385qntf 1 dose nasal route twice daily, then take 1 dose nasal route twice dailysodium chloride, sodium bicarb- nasal rinse squeeze bottle with packet (Neilmed Sinus) Place 1 Packet in each nostril twice daily. Mix 1 packet as directed on package and use to rinse sinuses two times daily. 100 Each 03/20/2022 ActiveStart: 63-21-7144mras 1 dose nasal route twice daily, then take 1 dose nasal route twice dailysodium chloride, sodium bicarb-nasal rinse squeeze bottle with packet (Neilmed Sinus) Place 1 Packet in each nostril twice daily. Mix 1 packet as directed on package and use to rinse sinuses two times daily. 100 Each 0 03/20/2022 ActiveStart: 12-20-2020 End: 68-99-8531tiugww chloride, sodium bicarb-nasal rinse squeeze bottle with packet (Neilmed Sinus) Mix 1 packet as directed on package and use to rinse sinuses 2 times daily. 100 Each 0 12/20/2020 03/20/2022 Discontinued1 ml ustekinumab 90 mg/ml prefilled syringe (20 sources)Interleukin-12 Antagonist, Interleukin-23 AntagonistStart: 99-12-8165Uanugtuqhhm 90 MG/ML Solution Prefilled Syringe injection Indications: Crohn's disease of both small and large intestine with complication Inject 1 mL under the skin every 28 days. 1 mL 11 06/21/2024tiveStart: 05-26-2024 End: 71-16-3701Hayulfwbklv 90 MG/ML Solution Prefilled Syringe injection Indications: Crohn's disease of both small and large intestine with complication Inject 1 mL under the skin every 56 days. 1 mL 6 05/26/2024 09/07/2024 DiscontinuedStart: 56-08-8734Hisutxtafxa 90 MG/ML Solution Prefilled Syringe injection Indications: Crohn's disease of both small and large intestine with complication Inject 1 mL under the skin every 56 days. 1 mL 6 10/22/2023 Active Start: 70-37-4631Umpbxczlnlw 90 MG/ML Solution Prefilled Syringe injection Inject 1 mL under the skin every 56 days.12/23/2022 ActiveStart: 12-27-2021 End: 68-26-4395nvshsgkciaf (STELARA) 90 MG/ML SOSY prefilled syringe Inject 1 mL into the skin Every 8 weeks 12/27/2021 ActiveStart: 12-27-2021 End: 73-24-9515qpvkibksxri (Stelara) injection Inject 90 mg under the skin. 12/27/2021 09/26/2024 Discontinued (Med list cleanup)inject 1 mL by subcutaneous injection every three monthsustekinumab (STELARA) 90 mg/mL injection Inject 1 mL (90 mg total) under the skin every 3 (three) months. 0 Activevedolizumab 300 mg injection (3 sources)Integrin Receptor Antagonistvedolizumab (ENTYVIO) 300 MG injection Infuse intravenously. Activezinc gluconate 50 mg oral tablet (8 sources)Start: 52-46-5833axbc 1 tablet by mouth once dailyZinc 50 MG tablet Take 1 tablet by mouth daily. 30 tablet 3 09/28/2024 Active Completed/Discontinued Medications MedicationDrug Class(es)DatesSig (Normalized)Sig (Original)acetaminophen 325 mg oral tablet (20 sources)Start: 01-17-2025 End: 39-36-0097qvls 1 tablet by mouth every eight jtsoq088 mg, Oral, EVERY 8 HOURS NON-STANDARD, First dose on Thu01/17/25 at 2000, Until Discontinued, Max imum dose of acetaminophen is 4000 mg from all sources in 24 hours., Post-op/Post-ProcStart: 01-17-2025 End: 94-23-7420wkyy 4000 mg by mouth every twenty-four lnvaq795 mg, Oral, ONCE, 1 dose, On Thu01/17/25 at 1030, Maximum dose of acetaminophen is 4000 mg from al l sources in 24 hours., Pre-op/Pre-ProcStart: 11-02-2024 End: 44-36-8770sgqs 1 tablet by mouth every four hours as iqqlry777 mg, Oral, EVERY 4 HOURS NEEDED, Starting on Thu11/02/24 at 1803, Until Thu11/02/24 at 2100, Moderate Pain, Maximum dose of acetaminophen is 4000 mg from all sources in 24 hours., Post-op/Post-ProcStart: 11-02-2024 End: 19-61-6705fxwb 1 dose by mouth nceo513 mg, Oral, ONCE, 1 dose, On Thu11/02/24 at 1515, Pre-op/Pre-ProcStart: 11-02-2024 End: 86-02-1937exuj 1 tablet by mouth every six hoursacetaminophen 650 MG Tab CR Take 1 tablet by mouth every 6 hours for 5 days. Alternate with ibuprofen doses every 3 hours. 11/02/2024 ActiveStart: 03-22-2024 End: 13-98-4982dhqp 10 mg by mouth every six hours as needed for pgik077 mg (10 mg/kg), Oral, Q6H PRN, Pain - Mild, Pain - Moderate, Starting on Thu03/22/24 at 1255, Until 06/25/24 at 1354, Phase IIStart: 68-95-1190eegnffznexqdo (TYLENOL) tablet 325 mgStart: 05-23-2021 End: 99-17-2959vxqz 2 tablets by mouth every six hours as neededacetaminophen (Tylenol) 325 MG tablet Take 2 tablets by mouth every 6 (six) hours if needed. 03/20/2022 Activeaprepitant 40 mg oral capsule (1 source)Substance P/Neurokinin-1 Receptor AntagonistStart: 03-22-2024 End: 16-02-5401ejnu 0.48 mg by mouth once40 mg (0.48 mg/kg), Oral, ONCE, On Thu03/22/24 at 1300, Pre-opAtogepant (Qulipta) 60 MG tablet (4 sources)Start: 08-01-2024 End: 75-50-4217icmj 1 tablet by mouth once dailyAtogepant (Qulipta) 60 MG tablet Indications: Nonintractable episodic headache, unspecified headache type Take 1 tablet by mouth Daily 90 tablet 1 08/01/2024 09/26/2024 Discontinued (Med list cleanup)Start: 74-06-3392rsch 1 tablet by mouth once dailyAtogepant (Qulipta) 60 MG tablet Indications: Nonintractable episodic headache, unspecified headache type Take 1 tablet by mouth Daily 90 tablet 1 08/01/2024 Activebisacodyl 5 mg delayed release oral tablet (2 sources)Stimulant LaxativeStart: 12-26-2024 End: 41-63-0900kpbuexxcy [address] Indications: Anorectal stricture Take all 4 tablets at 11am the day before surgery 4 tablet 12/26/2024 12/26/2024 Discontinued (Error)budesonide 3 mg delayed release oral capsule (8 sources)CorticosteroidStart: 06-03-2024 End: 49-23-6430odylooqvyq EC (Entocort EC) 3 MG 24 hr capsule 06/03/2024 08/01/2024 Discontinuedcalcipotriene 0.05 mg/ml topical cream (12 sources)Vitamin D AnalogStart: 09-03-2021 End: 89-06-3324hwyhnlyndqfra 0.005 % topical cream (Dovonex) Indications: Psoriasis Apply 1 Application to affected area twice daily. 60 gram 2 09/03/2021 01/26/2023 Discontinuedcalcium chloride 0.0014 meq/ml / potassium chloride 0.004 meq/ml / sodium chloride 0.103 meq/ml / sodium lactate 0.028 meq/ml injectable solution (4 sources)Start: 01-17-2025 End: 62-19-9963Qmwdpolkmsf, at 100 mL/hr, CONTINUOUS, Starting on Thu01/17/25 at 1530, Until [place] 01/19/25 at 0601, Post-op/Post-ProcStart: 09-06-2024 End: 05-25-9926Jlvxpgfuzla, at 20 mL/hr, CONTINUOUS, Starting on Thu09/06/24 at 1230, Until Thu09/07/24 at 0247, Pre-op/Pre-ProcStart: 03-22-2024 End: 04-35-8800jdbz 75 mL intravenously every hour75 mL/hr, Intravenous, CONTINUOUS, Starting on Thu03/22/24 at 1500, Until 06/25/24 at 1559, Contact pharmacy for new bag/syringe when needed., Phase IStart: 11-18-2023 End: 17-56-7045Awswjfyttvv, at 20 mL/hr, CONTINUOUS, Starting on Thu11/18/23 at 0930, Until Thu11/18/23 at 1129, Pre-op/Pre-Procclobetasol propionate 0.5 mg/ml topical solution (20 sources)CorticosteroidStart: 02-04-2022 End: 56-28-1824fccqseqsfY 0.05 % scalp solution (Temovate) Indications: Psoriasis Apply 1 Application to affected area twice daily. 50 mL 3 02/04/2022 01/26/2023 DiscontinuedStart: 12-24-2021 End: 97-54-4576cgtxinukoR 0.05 % topical ointment (Temovate) Indications: Psoriasis Apply 1 Application to affected area twice daily. 30 gram 2 12/24/2021 01/26/2023 Discontinueddicyclomine hydrochloride 20 mg oral tablet (14 sources)AnticholinergicStart: 07-05-2021 End: 59-68-4501mwun 1 tablet by mouth three times dailydicyclomine 20 mg tablet (BentyL) Take 1 tablet by mouth 3 times daily. 90 tablet 2 07/05/2021 02/04/2023 Discontinued0.4 ml enoxaparin sodium 100 mg/ml prefilled syringe (1 source)Low Molecular Weight HeparinStart: 01-18-2025 End: 55-46-0422nnpsjr 40 mg by subcutaneous injection every twenty-four hours40 mg, Subcutaneous, EVERY 24 HOURS, First dose (after last reorder) on Thu01/18/25 at 0900, Until Discontinued, For SUBCUTANEOUS route ONLY: alternate injection sites between left and right abdominal wall, pinching location and avoiding area around navel. If unable to use abdominal sites, may use the front or side of thighs., Indications: DVT/PE prophylaxis, Post-op/Post-Procfluticasone propionate 0.05 mg/actuat metered dose nasal spray (17 sources)CorticosteroidStart: 03-22-2024 End: 34-24-4503euzw 1 spray(s) nasal route once dailyfluticasone propionate 50 mcg/actuation nasal spray,suspension (Flonase) Place 1 spray(s) in each nostril once daily. 16 gram 03/22/2024 03/22/2024 Discontinued (No Longer Indicated) Start: 03-20-2022 End: 50-09-3948ucyd 1 spray(s) nasal route once dailyfluticasone propionate 50 mcg/actuation nasal spray,suspension (Flonase) Place 1 spray(s) in each nostril once daily. 16 gram 0 03/20/2022 02/04/2023 DiscontinuedStart: 07-07-2014 fluticasone (FLONASE) 50 MCG/ACT nasal spray 1 spray by Nasal route 2 times daily. 1 Bottle 0 07/07/2014 Activegabapentin 100 mg oral capsule (2 sources)Anti-epileptic AgentStart: 01-17-2025 End: 91-07-6331wvxv 1 capsule by mouth every eight ehpny513 mg, Oral, EVERY 8 HOURS NON-STANDARD, First dose on Thu01/17/25 at 2000, Until Discontinued, Pos t-op/Post-ProcStart: 01-17-2025 End: 67-49-8651esia 1 dose by mouth ygoe251 mg, Oral, ONCE, 1 dose, On Thu01/17/25 at 1030, Pre-op/Pre-Prochalobetasol propionate 0.5 mg/ml topical cream (1 source)CorticosteroidStart: 02-04-2022 End: 81-65-8567iadkw 50 g topically once dailyhalobetasol propionate 0.05 % topical cream (Ultravate) Indications: Psoriasis Apply to affected area on scalp once daily. 50 gram 3 02/04/2022 03/20/2022 Discontinued (No Longer Taking)1 ml haloperidol 5 mg/ml prefilled syringe (1 source)Typical AntipsychoticStart: 11-02-2024 End: 80-76-1685kwby 1 mg intravenously every hour as needed1 mg, Intravenous, EVERY 1 HOUR NEEDED, 2 doses, Starting on Thu11/02/24 at 1718, Until Thu11/02/24 at 2100, Nausea, SECOND line antiemetic, Recovery1 ml heparin sodium, porcine 5000 unt/ml prefilled syringe (1 source)Unfractionated Heparin, Anti-coagulantStart: 01-17-2025 End: 55,000 Units, Subcutaneous, ONCE, 1 dose, On Thu01/17/25 at 1030, Pre op Nurse: Hold for patients receiving Intrathecal morphine or epidural. Consult with Anesthesia Team., Pre-op/Pre-Proc1 ml HYDROmorphone hydrochloride 1 mg/ml cartridge (1 source)Opioid AgonistStart: 01-17-2025 End: .5 mg, Intravenous, EVERY 10 MINUTES NEEDED, 8 doses, Starting on Thu01/17/25 at 1545, Until Thu01/17/25 at 1750, Moderate Pain, Severe Pain, Mild Pain, May give a total of 4mg in PACU., Recoveryhyoscyamine sulfate 0.125 mg sublingual tablet (12 sources)Start: 06-27-2021 End: 90-50-0155idwy 1 tablet under the tongue every six hours as needed for pain hyoscyamine 0.125 mg sublingual tablet (Levsin) Place 1 tablet under tongue every 6 hours as neededfor Pain. 120 tablet 2 06/27/2021 01/26/2023 Discontinued ibuprofen 200 mg oral tablet (20 sources)Nonsteroidal Anti-inflammatory DrugStart: 11-02-2024 End: 98-11-2372udeu 1 tablet by mouth every six hours as enrupl554 mg, Oral, EVERY 6 HOURS NEEDED, Starting on Thu11/02/24 at 1803, Until Thu11/02/24 at 2100, Mild Pain, Give with food, Post-op/Post-ProcStart: 09-05-2023 End: 86-96-5359wtun 1 tablet by mouth every six hours as needed for pain and painibuprofen 600 MG tablet Take 600 mg by mouth every 6 (six) hours if needed for mild pain or moderate pain 09/05/2023 ActiveStart: 05-23-2021 End: 44-24-0342xigf 1 tablet by mouth every six hours as needed for pain ibuprofen 600 mg tablet (Motrin) Take 1 tablet by mouth every 6 hours as needed for Pain. 40 vtsdyq7003/20/2022 Nkgeza62 ml immunoglobulin g, human 100 mg/ml injection (1 source)Human Immunoglobulin GStart: 08-13-2021 End: 06-10-0914fachyb globulin (GAMMAGARD) 10% solution 35 giopamidol (ISOVUE- 370) 76 % injection 100 mL (1 source)Start: 10-26-2024 End: 51-16-7506eqvv 1 dose intravenously yyyu092 mL, IntraVENous, IMG ONCE PRN, 1 dose, Starting on Thu10/26/24 at 1124, Until Thu10/26/24 at 1127, Other Lidocaine viscous-Alum & Mag Fwsqdcgoi-Lnmsui-pihhqfzjnaZNAKV oral mouthwash (6 sources)Start: 10-10-2024 End: 85-81-5944ordoj 15 mL topically every six hours as neededLidocaine viscous- Alum & Mag Teudidaqh-Bigwwx-ezxrejpgviCLEPD oral mouthwash Swish and spit 15 mL every 6 hours as needed. 240 mL 1 10/10/2024 01/19/2025 DiscontinuedStart: 73-08-9939fxrco 15 mL topically every six hours as neededLidocaine viscous-Alum & Mag Swrkokyuo-Zeqlmm-lqquwrxpkbZTZXW oral mouthwash Swish and spit 15 mL every 6 hours as needed. 240 mL 1 10/10/2024 Activemagnesium oxide 400 mg oral tablet (2 sources)Start: 01-19-2025 End: 95-60-4181vqon 1 dose by mouth ocee767 mg, Oral, ONCE, 1 dose, On [place] 01/19/25 at 0645, Occludes small-bore tubesStart: 01-18-2025 End: 09-78-2853oafe 1 dose by mouth waml295 mg, Oral, ONCE, 1 dose, On Thu01/18/25 at 0600, Occludes small-bore tubesmelatonin 3 mg oral tablet (1 source)Start: 01-17-2025 End: 96-41-3672ylmxkYHWYNIJZ 500 mg oral tablet (2 sources)Nitroimidazole AntimicrobialStart: 12-26-2024 End: 56-21-6324jwedyUGOFANZD 500 MG tablet Indications: Anorectal stricture Take 2 tablets (1000 mg) at 1pm, 2pm, and 9pm the day before your procedure. 6 tablet 12/26/2024 12/26/2024 Discontinued (Error)neomycin sulfate 500 mg oral tablet (2 sources)Aminoglycoside AntibacterialStart: 12-26-2024 End: 56-56-0615Rqeplvqo 500 MG tablet Indications: Anorectal stricture Take 2 tablets (1000 mg) at 1pm, 2pm, and 9pm the day before your procedure. 6 tablet 12/26/2024 12/26/2024 Discontinued (Error)nitrofurantoin, macrocrystals 25 mg / nitrofurantoin, monohydrate 75 mg oral capsule (3 sources)Nitrofuran AntibacterialStart: 03-30-2023 End: 16-19-2743fsxq 1 capsule by mouth in the morningnitrofurantoin, macrocrystal-monohydrate, (Macrobid) 100 MG capsule Indications: Acute cystitis without hematuria Take 1 capsule (100 mg) by mouth in the morning and 1 capsule (100 mg) before bedtime. 14 capsule 0 03/30/2023 05/26/2023 Discontinued ofloxacin 3 mg/ml ophthalmic solution (4 sources)Quinolone AntimicrobialStart: 04-27-2024 End: 41-43-1591etmd 5 drop(s) into the eye(s) twice dailyofloxacin (OCUFLOX) 0.3% ophthalmic solution for OTIC use Place 5 drops in left ear twice daily for7 days. 10 mL 04/27/2024 05/04/2024 ExpiredStart: 55-02-5470patpjjndz (OCUFLOX) 0.3 % solution Apply 5 drops to the draining ear(s) twice a day for 7 days 10 mL 1 05/27/2023 Active2 ml ondansetron 2 mg/ml injection (4 sources)Serotonin-3 Receptor AntagonistStart: 01-18-2025 End: 99-93-5479amse 4 mg intravenously every six hours as neededStart: 01-17-2025 End: 52-17-4379gvls 4 mg intravenously every six hours4 mg, Intravenous, EVERY 6 HOURS NON-STANDARD, 4 doses, First dose on Thu01/17/25 at 2100, Last dose on Thu01/18/25 at 1500, Post-op/Post-ProcStart: 11-02-2024 End: 49-65-9285hgol 4 mg intravenously every four hours as needed4 mg, Intravenous, EVERY 4 HOURS NEEDED, Starting on Thu11/02/24 at 1803, Until Thu11/02/24 at 2100, Nausea / Vomiting, Post-op/Post-ProcStart: 08-13-2021 ondansetron (ZOFRAN) tablet 4 mgoxyCODONE (5 sources)Opioid AgonistStart: 01-19-2025 End: 10-30-8495wifw 1 tablet by mouth every four hours as neededoxyCODONE (ROXICODONE) tablet 5 mgStart: 01-19-2025 End: 21-45-9562fzpv 1 tablet by mouth every six hours as neededoxyCODONE 5 MG tablet Indications: History of ileostomy Take 1 tablet by mouth every 6 hours as needed for up to 5 days. 12 tablet 01/19/2025 ActiveStart: 01-17-2025 End: 77-43-3065dbix 1 tablet by mouth every four hours as neededoxyCODONE (ROXICODONE) tablet 5 mgphenol 14 mg/ml mucosal spray (1 source)Start: 01-17-2025 End: 78-94-3283qshrwbhkxqap glycol 3350 82686 mg powder for oral solution (2 sources)Osmotic LaxativeStart: 12-26-2024 End: 67-99-1081Dvxpatdnjujl glycol 17 GM/SCOOP Powder powder Indications: Anorectal stricture 11 AM: Take entire contents over 2 hours as instructed. 255 g 12/26/2024 12/26/2024 Discontinued (Error)microencapsulated potassium chloride 20 meq extended release oral tablet (1 source)Start: 01-19-2025 End: 27-38-7400blnt 1 dose by mouth once20 mEq, Oral, ONCE, 1 dose, On [place] 01/19/25 at 0645, Do not crush.prochlorperazine 5 mg/ml injectable solution (1 source)PhenothiazineStart: 11-02-2024 End: 84-18-6373xpbz 5 mg intravenously every hour as needed5 mg, Intravenous, EVERY 1 HOUR NEEDED, 2 doses, Starting on Thu11/02/24 at 1718, Until Thu11/02/24 at 2100, Nausea / Vomiting, FIRST Line antiemetic, Do not administer within 6 hours of intra-operative dose. Maximum 40mg/day. For IV route: Give undiluted by slow IV push at a rate of 5 mg/min., RecoveryProchlorperazine (COMPAZINE) injection 10 mg (1 source)Start: 01-17-2025 End: 20-88-9935vwzy 10 mg intravenously every six hours as needed Prochlorperazine (COMPAZINE) injection 10 mg72 hr scopolamine 0.0139 mg/hr transdermal system (1 source)AnticholinergicStart: 11-02-2024 End: patch, Transdermal, ONCE, 1 dose, On Thu11/02/24 at 1515, Each patch delivers 1 mg over 72 hours., Pre-op/Pre-Procsertraline 25 mg oral tablet (20 sources)Serotonin Reuptake InhibitorStart: 01-27-2024 End: 19-41-7809mvch 1 tablet by mouth once dailysertraline (Zoloft) 25 MG tablet Indications: Anxiety Take 1 tablet (25 mg) by mouth Daily 90 tablet 04/26/2024 08/01/2024 Discontinuedsimethicone in sterile water 40 mg/1000 mL irrigation 1 Application (1 source)Start: 09-06-2024 End: Application, Irrigation, ADMINISTER DIRECTED, Starting on Thu09/06/24 at 1311, Until Thu09/06/24 at 1510, Other, For gastrointestinal irrigation, Intra-op/Intra-Pbxi885 ml sodium chloride 9 mg/ml injection (6 sources)Start: 11-02-2024 End: 38-96-8314Duszwlppzlj, at 50 mL/hr, CONTINUOUS, Starting on Thu11/02/24 at 1445, Until Thu11/02/24 at 2100, Pre-op/Pre-ProcStart: 10-26-2024 End: 25-84-1692646 mL, IntraVENous, at 6,000 mL/hr, Administer over 1 Minutes, ONCE, On Thu10/26/24 at 1145, For 1doseStart: 34-29-874489 mL, IntraVENous, PRN, Starting on Thu10/26/24 at 1124, Until Discontinued, Line CareStart: 03-22-2024 End: 96-00-0826Qcfglzcigbndl, Q1H PRN, Flush, To maintain access, Phase IStart: 08-13-2021 End: .9 % sodium chloride infusionubrogepant 100 mg oral tablet (9 sources)Start: 07-16-2024 End: 23-28-4267Dsbclwgyhe (Ubrelvy) 100 MG tablet Indications: Nonintractable episodic headache, unspecified headache type Take 100 mg by mouth if needed (headache) 2 tablet 07/16/2024 09/26/2024 Discontinued (Med list cleanup) Problems Active Problems Problem ClassificationProblemDateDocumented DateEpisodic/ChronicAcute bronchitis (2 sources)Acute viral bronchitis; Translations: [Acute bronchitis due to other specified organisms]96-20-1440TrpspszsYujrfvancwduuo/social admission (2 sources)Other specified counseling; Translations: [Other specified counseling]Onset: 49-59-8099QdokdkdeMzrt and rectal conditions (16 sources)Anorectal stricture; Translations: [Stenosis of anus and rectum] Onset: 288860-13-2044KmxrdsxzEqhurof disorders (4 sources)Anxiety; Translations: [Anxiety disorder, unspecified]01-27-2024 ChronicDiseases of white blood cells (20 sources)Leukocytosis; Translations: [Elevated white blood cell count, unspecified]Onset: 02-26-2022 Resolved: 310644-54-8529ObphmrgEbvpfwjydc disorders (20 sources)Gastroesophageal reflux disease; Translations: [Gastro-esophageal reflux disease without esophagitis]Onset: 02-26-2022 Resolved: 437645-57-2029QfgesopIyisyttj; including migraine (20 sources)Tension-type headache; Translations: [Tension-type headache, unspecified, not intractable]Onset: 685167-89-7828UrsfgjzZeunaecg disorders (20 sources)Immunosuppression; Translations: [Immunodeficiency, unspecified] Onset: 08-29-2014 Resolved: 231730-17-9069PaidyokRsslqanczrxoi and screening for infectious disease (1 source)Encounter for immunization; Translations: [ENCOUNTER FOR IMMUNIZATION] Onset: 15-28-7041YspaiygnUpmdrclrsxvj; infection of eye (except that caused by tuberculosis or sexually transmitteddisease) (20 sources)Orbital myositis; 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, unspecified orbit]Onset: 08-11-2014 Resolved: 702923-25-9900PncsncyEscmdbx and fatigue (2 sources)Fatigue; Translations: [Other fatigue]74-46-3148EkiyhfljTjir disorders (20 sources)Depressive disorder; Translations: [Depression]Onset: 02-10-2024 00-55-1332RlwzblgMawhaoysyyg deficiencies (20 sources)Vitamin D deficiency; Translations: [Vitamin D deficiency, unspecified]Onset: 09-23-2016 Resolved: 065672-66-9197GkmcuvaEshnt aftercare (20 sources)Patient encounter status; Translations: [Encounter for therapeutic drug level monitoring]Onset: 08-29-2014 Resolved: 780908-85-5804HkfjefkhLzteo aftercare (2 sources)Surgical follow-up; Translations: [Encounter for follow-up examination after completed treatment for conditions other than malignant neoplasm]Onset: 783103-43-9656UnpqtizwKpxvx aftercare (2 sources)Encounter for follow-up examination after completed treatment for conditions other than malignant neoplasm; Translations: [Encounter for follow-up examination after completed treatment for conditionsother than malignant neoplasm]Onset: 30-01-5002RkzcccxlNuwwc complications of (1 source)Anemia complicating , unspecified trimester; Translations: [Anemia complicating ,unspecified trimester]Onset: 52-08-1222Ywnihpx Other complications of (1 source)Diseases of the digestive system complicating , second trimester; Translations: [Diseases of the digestive system complicating , second trimester]Onset: 97-01-4719VawnnagsQhukf complications of (1 source)Supervision of high risk , unspecified, unspecified trimester; Translations: [Supervision of high risk , unspecified, unspecified trimester]Onset: 92-28-3626PeayqoayFecyq complications of (6 sources)Disease of the digestive system complicating , childbirth and/or the puerperium; Translations: [Diseases of the digestive system complicating , second trimester]Onset: 177469-95-1358Soakvbnb Other connective tissue disease (1 source)Swelling of left lower limb; Translations: [Other specified soft tissue disorders]21-84-0760WgehkavaDidez ear and sense organ disorders (2 sources)Impacted cerumen of bilateral ears; Translations: [Impacted cerumen, bilateral]46-60-3039LfkwlkrsAviup gastrointestinal disorders (2 sources)Ileostomy status; Translations: [Ileostomy status]Onset: 02-20-2025 ChronicOther gastrointestinal disorders (1 source)Ileostomy present; Translations: [Ileostomy status]45-09-5472Lhqojwn Other gastrointestinal disorders (1 source)Personal history of other diseases of the digestive system; Translations: [Personal history of other diseases of the digestive system]Onset: 40-58-4093VqlrgpcwMmfpd inflammatory condition of skin (16 sources)Scalp psoriasis; 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, unspecified]Onset: 973864-43-0335VhwisesEinjx inflammatory condition of skin (20 sources)Psoriasis; 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, unspecified]Onset: 05-24-2014 56-17-5243KhtqkptVhzip lower respiratory disease (2 sources)Cough; Translations: [Acute cough]88-48-1486AyrnblloMhjkj lower respiratory disease (2 sources)Wheezing; Translations: [Wheezing]80-57-1125SymsrgbuOnppp nutritional; endocrine; and metabolic disorders (20 sources)Obese class I; Translations: [Obesity, unspecified]Onset: 02-25-2023 97-54-5342GkmstdeTqnac upper respiratory disease (1 source)Epistaxis; Translations: [Epistaxis]Onset: 56-82-1646XtsuxmhlXgevu upper respiratory infections (20 sources)Chronic sinusitis; Translations: [Chronic sinusitis, unspecified] Onset: 01-02-2015 Resolved: 523400-08-6529AweuxjhBdpfz upper respiratory infections (20 sources)Acute pansinusitis; Translations: [Acute pansinusitis, unspecified] Resolved: 770478-95-6108MdcbmtdmKgdymr media and related conditions (20 sources)Acute suppurative otitis media; Translations: [Acute suppurative otitis media without spontaneous rupture of ear drum, left ear]Onset: 09-21-2017 Resolved: 382462-67-3475ZrgtfadqKsyqezwe enteritis and ulcerative colitis (20 sources)Crohn's disease of small AND large intestines; Translations: [Crohn's disease of both small and large intestine with unspecified complications]Onset: 01-26-2012 Resolved: 537849-94-8541MtjafgbDpafcdyz codes; unclassified (2 sources)First trimester ; Translations: [Less than 8 weeks gestation of ]78-03-2112AuewmmntUrkkavju codes; unclassified (1 source)Gestation period, 11 weeks; Translations: [11 weeks gestation of ]01-48-0160XxqvpvwjQjotfzaw codes; unclassified (1 source)19 weeks gestation of ; Translations: [19 weeks gestation of ]Onset: 17-32-7977FzpwxehdEnyjaams codes; unclassified (2 sources)Family history of breast cancer; Translations: [Family history of malignant neoplasm of breast]88-20-6707MlycmzfkYwbxtapy codes; unclassified (2 sources)Other specified postprocedural states; Translations: [Other specified postprocedural states]Onset: 77-93-8425BmokqeeaOrhuyquy codes; unclassified (2 sources)Other specified health status; Translations: [Other specified health status]Onset: 72-36-4304BvzsvuemNqypuoowmbko (1 source)HX ColitisOnset: 88-64-2880Wwplganrzcne (1 source)Low Blood IronOnset: 96-53-0602Adxrhtpbwtef (2 sources)New Patient; Translations: [New Patient]Onset: 13-05-1948Oomnebgscbal (1 source)Bowel PrepOnset: 417656-35-2763Wtnecvbeqgby (2 sources)PPD Reading; Translations: [PPD Reading]Onset: 65-99-7751Ykgal infection (4 sources)COVID-19; Translations: [COVID-19]Onset: 11-19-2021 Past or Other Problems Problem ClassificationProblemDateDocumented DateEpisodic/ChronicAbdominal pain (20 sources)Generalized abdominal pain; Translations: [Generalized abdominal pain] Resolved: 089673-35-0289YrwfdagyHdzncwoag and vision defects (20 sources)Diplopia; Translations: [Diplopia] Resolved: 167557-73-9057SlylelxiNdfqtev obstructive pulmonary disease and bronchiectasis (20 sources)Bronchiectasis; Translations: [Bronchiectasis, uncomplicated]Onset: 04-16-2020 Resolved: 898872-65-6569VgzxmdpUbyuvhwhyhtc of device; implant or graft (3 sources)Injection site extravasation; Translations: [Other specified complication of vascular prosthetic devices, implants and grafts, initial encounter]Onset: 05-30-2014 Resolved: 213466-46-4865TpomknvNntjoiifpjadi of surgical procedures or medical care (20 sources)Postoperative abdominal wall wound abscess; Translations: [Infection following a procedure, other surgical site, initial encounter] Resolved: 294805-70-6485KdmiixteEbhxiezkvi and other anemia (20 sources)Microcytic anemia; Translations: [Iron deficiency anemia, unspecified]Onset: 113364-10-3584ExribblsModlyymuka and other anemia (20 sources)Anemia; Translations: [Anemia, unspecified]Onset: 08-09-2015 Resolved: 313086-18-4292ZdtzistcUrwnalmukl and other anemia (12 sources)Iron deficiency anemia; Translations: [Iron deficiency anemia, unspecified]Onset: 162903-66-2695CfzcwsrlEurgsngf of mouth; excluding dental (20 sources)Ulcer of mouth; Translations: [Other forms of stomatitis]Onset: 06-11-2018 Resolved: 402061-59-1365UijszxzjOadjtmrfi of teeth and jaw (20 sources)Difficulty chewing; Translations: [Other specified disorders of teeth and supporting structures]Onset: 06-17-2018 Resolved: 414878-49-3765GvxgymhrOeltt of unknown origin (20 sources)Fever; Translations: [Fever, unspecified]Onset: 06-08-2021 Resolved: 608876-44-4149BqzmxrevImnft and electrolyte disorders (20 sources)Dehydration; Translations: [Dehydration]Onset: 07-02-2014 Resolved: 098586-33-4315XpicvnfjCvjkltkj; including migraine (20 sources)Headache; Translations: [Headache]Onset: 06-17-2018 Resolved: 980305-32-3241DmwyqopfMmdegncolxdm; infection of eye (except that caused by tuberculosis or sexually transmitteddisease) (20 sources)Cellulitis of left orbit; Translations: [Cellulitis of left orbit] Onset: 07-20-2014 Resolved: 221800-21-9361HsysdvaiZorxlbxiac infection (20 sources)Clostridium difficile colitis; Translations: [Enterocolitis due to Clostridium difficile, not specified as recurrent] Resolved: 483077-95-1136LxsqnvobJjrsglldxj (except that caused by tuberculosis or sexually transmitted disease) (20 sources)Aseptic meningitis; Translations: [Nonpyogenic meningitis]Onset: 08-16-2021 Resolved: 296267-72-5563VtpjmswnNwtg disorders (8 sources)Mood disordersOnset: 10-17-2024 Resolved: 804732-15-6165Slskfuboj of unspecified nature or uncertain behavior (3 sources)Neoplasm of uncertain behavior of skin; Translations: [Neoplasm of uncertain behavior of skin]Onset: 05-08-2014 Resolved: 931968-98-8493NydamqikMbkrbxqzsle deficiencies (20 sources)Iron deficiency; Translations: [Iron deficiency]Onset: 05-03-2021 Resolved: 516542-71-1228TxndeactCpkvz aftercare (20 sources)Drug-induced immunodeficiency ; 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]Onset: EpisodicOther aftercare (20 sources)Long-term current use of systemic steroid; Translations: [detention (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 of systemic steroids]Onset: 01-09-2016 Resolved: 949555-39-4215FexlitwvSnadu aftercare (20 sources)Drug therapy finding; Translations: [On rituximab therapy]Onset: 12-30-2017 Resolved: 663525-45-5245UstqabbgLuosa aftercare (20 sources)detention current use of adalimumab therapy; Translations: [Adalimumab (Humira) long-term use]Onset: 906333-03-3541DeprvjpjOiziu aftercare (20 sources)Long-term current use of rituximab; Translations: [Encounter for therapeutic drug level monitoring]Onset: 877835-06-1619DpmxjyoxHuiag aftercare (7 sources)Long-term current use of steroid; Translations: [Encounter for long- term (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 of steroids]Onset: 08-29-2014 Resolved: 355383-85-9343VqvcfjziLekid aftercare (7 sources)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; Translations: [Encounter for therapeutic drug level monitoring]Onset: 10-17-2014 Resolved: 865381-62-7878KjlrubfdYsguf aftercare (7 sources)Long-term current use of drug therapy; Translations: [Encounter for therapeutic drug level monitoring]Onset: 11-23-2019 Resolved: 862710-51-8892WylqphegLubbi complications of (9 sources)Anemia during - baby not yet delivered; Translations: [Anemia complicating , unspecified trimester] Resolved: 898209-14-2848NubhplyCrmrp complications of (14 sources)Anemia of ; Translations: [Anemia complicating , unspecified trimester] Resolved: 770721-10-0931XtvvvshHbyoj complications of (3 sources)Crohn's disease; Translations: [Diseases of the digestive system complicating , second trimester]57-19-2626MqbirlpdJuuld ear and sense organ disorders (20 sources)Otitis externa of left ear; Translations: [Unspecified otitis externa, left ear]Onset: 09-21-2017 Resolved: 858294-33-8796LmamjhoBaebf eye disorders (20 sources)Disorder of eye; Translations: [Unspecified disorder of eye and adnexa]Onset: 08-10-2014 Resolved: 405708-16-8971SzxgxfquEwkcc eye disorders (20 sources)Pain in eye; Translations: [Ocular pain, unspecified eye]Onset: 06-22-2016 Resolved: 219692-65-2965XpzjodocRtgph gastrointestinal disorders (20 sources)Intestinal malabsorption; Translations: [Intestinal malabsorption, unspecified]Onset: 06-17-2018 Resolved: 957857-00-5649VotzcqgOhowr gastrointestinal disorders (20 sources)Loose stool; Translations: [Other fecal abnormalities] Resolved: 459021-51-6234UfcfeizlPkjov gastrointestinal disorders (20 sources)Diarrhea; Translations: [Diarrhea, unspecified] Resolved: 500013-55-4889KqszreecSizcb gastrointestinal disorders (2 sources)H/O: ulcerative colitis; Translations: [Personal history of other diseases of the digestive system]25-39-8154KltdiixgDfpwa hematologic conditions (20 sources)ESR raised; Translations: [Elevated erythrocyte sedimentation rate] Onset: 12-22-2012 Resolved: 174556-83-6071DrrbpwuvLhgbk infections; including parasitic (20 sources)Personal history of other infectious and parasitic diseases; Translations: [Personal history of other infectious and parasitic diseases] Onset: 05-22-2018 Resolved: 707568-53-4254TpuipifaYmaje inflammatory condition of skin (20 sources)Intertrigo; Translations: [Erythema intertrigo]Onset: 04-17-2020 Resolved: 307829-74-5768KnpmwmquHtejm lower respiratory disease (3 sources)Cough; Translations: [Cough]Onset: 04-20-2014 Resolved: [id number] lower respiratory disease (3 sources)Chronic cough; Translations: [Chronic cough] Resolved: 248963-15-4729LmopaifuWrztl lower respiratory disease (20 sources)Multiple nodules of lung; Translations: [Other nonspecific abnormal finding of lung field]Onset: 758248-31-1275NxudgumbJedvk lower respiratory disease (20 sources)Dyspnea; Translations: [Shortness of breath]Onset: 04-23-2015 Resolved: 187326-61-5629ErvmakmvYglth lower respiratory disease (12 sources)Nodule of lung; Translations: [Solitary pulmonary nodule]Onset: 870866-18-6905MmiixdvfQhvee nervous system disorders (20 sources)Postoperative pain ; Translations: [Other acute postprocedural pain] Resolved: 012103-45-6548OgicwgbbUwgjn non-traumatic joint disorders (20 sources)Multiple joint pain; Translations: [Pain in unspecified joint]Onset: 316062-87-2216ZkjukrgbGvhhc nutritional; endocrine; and metabolic disorders (20 sources)Overweight in adulthood with body mass index of 25 or more but less than 30; Translations: [Body mass index (BMI) 29.0-29.9, adult]Onset: 11-23-2014 Resolved: 350500-95-5911QmmykxudBxjve nutritional; endocrine; and metabolic disorders (20 sources)Weight loss; Translations: [Abnormal weight loss] Resolved: 583615-95-0246ZqrqefzxLmzyc nutritional; endocrine; and metabolic disorders (20 sources)Recent weight loss; Translations: [Abnormal weight loss] Resolved: 550470-93-2471GgtimusaSqxxv nutritional; endocrine; and metabolic disorders (20 sources)Loss of appetite; Translations: [Anorexia]Onset: 02-26-2022 Resolved: 440374-57-0322PijkxrbjFnfqn nutritional; endocrine; and metabolic disorders (20 sources)Decrease in appetite; Translations: [Anorexia]Onset: 10-27-2022 Resolved: 164623-43-3360MzcxxsxeZlqql screening for suspected conditions (not mental disorders or infectious disease) (20 sources)Elevated C-reactive protein; Translations: [Elevated C-reactive protein (CRP)]Onset: 12-22-2012 Resolved: 552332-37-7655EvxopkkkIdryo skin disorders (20 sources)Alopecia areata; Translations: [Alopecia areata, unspecified]Onset: 200491-83-7834WiawyufrOubcz skin disorders (20 sources)Facial swelling ; Translations: [Localized swelling, mass and lump, head]Onset: 07-20-2014 Resolved: 645281-41-8806KolottygYpvgw skin disorders (3 sources)Lesion of scalp; Translations: [Disorder of the skin and subcutaneous tissue, unspecified]Onset: 04-20-2014 Resolved: 735873-15-0427TxbekojdLygbz skin disorders (20 sources)Eruption; Translations: [Rash and other nonspecific skin eruption] Onset: 04-20-2014 Resolved: 999834-86-5777AkcqkshhSsvof skin disorders (20 sources)Alopecia; Translations: [Nonscarring hair loss, unspecified]Onset: 05-24-2014 Resolved: 539691-58-6164OqmytlphHbyec skin disorders (20 sources)Folliculitis; Translations: [Follicular disorder, unspecified]Onset: 11-30-2016 Resolved: 815642-41-6356IcypzqztRxoyd skin disorders (20 sources)Anetoderma; 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 skin]Onset: 11-30-2016 Resolved: 706896-06-3577ZjdnowgdMdyks skin disorders (20 sources)Skin nodule; Translations: [Localized swelling, mass and lump, unspecified]Onset: 12-24-2020 Resolved: 497078-00-4512GjoddlxmHsfiv skin disorders (20 sources)Hidradenitis suppurativa; Translations: [Hidradenitis suppurativa] Onset: 717252-19-5147NiorultcOfyibslw codes; unclassified (20 sources)History of excision of small intestine; Translations: [Acquired absence of other specified parts ofdigestive tract]Onset: EpisodicResidual codes; unclassified (20 sources)At risk for infection; Translations: [Other specified personal risk factors, not elsewhere classified]Onset: 662884-72-7767HpisqxxtHzxkczrn codes; unclassified (1 source)Gestation period, 19 weeks; Translations: [19 weeks gestation of ]93-15-3782Iizxtxmm Results Test NameValueInterpretationReference RangeFacilityALL CBC WITH AUTO DIFFon [id number] ABSOLUTE AUTO0.1NOMS HealthcareBasophils/100 WBC (Bld)0.5 % 0.2 - 2.0 %NOMS HealthcareEosinophils/100 WBC (Bld)2.3 %0.9 - 7.0 %NOMS HealthcareErythrocyte distribution width (RBC) [Ratio]13.2 %11.0 - 15.0 %NOMS HealthcareHematocrit (Bld) [Volume fraction]40.9 %36.0 - 48.0 %[facility] Hemoglobin (Bld) [Mass/Vol]13.6 g/dL12.0 - 16.0 g/dLNOMS HealthcareIMMATURE GRANULOCYTES ABS AUTO0.07HighNOMS HealthcareImmature granulocytes/100 WBC (Bld) 0.6 %High0.0 - 0.5 %[facility]OMS HealthcareInterpretation and review of laboratory resultsAbnormalNOMS HealthcareLYMPHOCYTES ABSOLUTE AUTO1.3[facility] Lymphocytes/100 WBC (Bld)10.5 %Low20.5 - 60.0 %NOMS HealthcareMCH (RBC) [Entitic mass]28.7 pg26.7 - 34.0 pgMetropolitan Saint Louis Psychiatric CenterHC (RBC) [Mass/Vol]33.3 g/dL29.9 - 35.2 g/dLMetropolitan Saint Louis Psychiatric CenterV (RBC) [Entitic vol]86.3 fL81.0 - 99.0 fLFulton State HospitalMONOCYTES ABSOLUTE AUTO0.7F[facility] State HospitalMonocytes/100 WBC (Bld)6.0 % 1.7 - 12.0 %[facility] HospitalNEUTROPHILS ABSOLUTE AUTO9.8HighFulton State Hospital Neutrophils/100 WBC (Bld)80.1 %High43.0 - 75.0 %[facility] HospitalPlatelet mean volume (Bld) [Entitic vol]9.4 fLLow9.5 - 13.5 fLFulton State HospitalTB EO #0.3NOUniversity of Missouri Health Care SFH532CITVUniversity of Missouri Health Care RBC4.74NOUniversity of [facility] Care WBC12.2HighFulton State HospitalCLINISYNCNOMS HealthcareCALCIUMon 24-02-4393Hfylmjc [Mass/Vol]8.4 mg/dLLow8.6 - 10.5 mg/dLParma Community General HospitalInterpretation and review of laboratory resultsAbnoTriHealth Good Samaritan HospitalCalcium [Mass/Vol]8.4 mg/dL Low8.6-10.5[facility] HospitalComment on above:Performed By: #### IPB, MGO, CA, CHM7 #### [facility] (DEFAULT) [address] [address]LPR,PLATELETSon 82-37-2425Ekgkbfibahk distribution width (RBC) [Ratio]13.8 %10.8 - 14.9 %[facility] HospitalHematocrit (Bld) [Volume fraction]36.6 %34.9 - 44.3 %[facility] HospitalHemoglobin (Bld) [Mass/Vol] 11.8 g/dL11.4 - 15.2 g/dLParma Community General HospitalInterpretation and review of laboratory resultsNoJoint Township District Memorial Hospital (RBC) [Entitic mass]28.5 pg 25.9 - 33.9 pgParma Community General HospitalMCHC (RBC) [Mass/Vol]32.2 g/dL31.4 - 35.9 g/dLParma Community General HospitalMCV (RBC) [Entitic vol]88.4 fL79.6 - 97.7 [facility] Medical CenterPlatelet mean volume (Bld) [Entitic vol]10.4 fL8.5 - 12.2 [facility] Medical CenterPlatelets (Bld) [#/Vol]232 10*3/uL150 - 393 K/[facility] HospitalRBC (Bld) [#/Vol]4.14 10*6/[facility] HospitalWBC (Bld) [#/Vol]8.36 10*3/uL3.99 - 11.19 K/[facility] Medical CenterHematocrit (Bld) [Volume fraction]36.6 %Abdrtl52.9-44.3[facility] HospitalComment on above:Performed By: #### INGA MARTIN, IRBC #### [facility] (DEFAULT) [address] [place] [address] 86077Xcjjuptlky (Bld) [Mass/Vol]11.8 g/xUJtaxzr75.4-15.2[facility] HospitalComment on above:Performed By: #### INGA MARTIN, IRBC #### [facility] (DEFAULT) [address] [place] [address] 66174CRC (RBC) [Entitic vol]88.4 iZGjkeys63.6-97.7[facility] HospitalComment on above:Performed By: #### MARIO CRP, IRBC #### [facility] (DEFAULT) [address] [place] [address] 51925Jhld Cell Hgb28.5 ebJsjeoa87.9-33.9[facility] HospitalComment on above:Performed By: #### MARIO CRP, IRBC #### [facility] (DEFAULT) [address] [place] [address] 37210Maub Cell Hgb Conc32.2 g/fGEtgppf40.4-35.9[facility] HospitalComment on above:Performed By: #### INGA MARTIN, IRBC #### U [facility] (DEFAULT) [address] [place] [address] 56903Kblzbsuo mean volume (Bld) [Entitic vol]10.4 fLNormal8.5-12.2 [facility] HospitalComment on above:Performed By: #### INGA MARTIN, IRBC #### [facility] (DEFAULT) [address] [place] [address] 54342Qcnzlulrk (Bld) [#/Vol]232 10*3/eRStvrha031-618RfegUc West Chester HospitalComment on above:Performed By: #### INGA MARTIN, IRBC #### [facility] (DEFAULT) [address] [place] [address] 49789IJJ (Bld) [#/Vol]4.14 10*6/uLNormal3.91-5.04[facility] HospitalComment on above:Performed By: #### INGA MARTIN, IRBC #### [facility] (DEFAULT) [address] [place] [address] 75422YWQ Dnfsyvdhfdrc29.8 %Bsffhx29.8-14.9[facility] HospitalComment on above:Performed By: #### INGA MARTIN, IRBC #### [facility] (DEFAULT) [address] [place] [address] 71815HJR (Bld) [#/Vol]8.36 10*3/uLNormal3.99-11.19[facility] HospitalComment on above:Performed By: #### INGA MARTIN, IRBC #### [facility] (DEFAULT) [address] [place] [address] 84152UCMY 7 (LYTES,BUN,CREA,GLUC)on 89-09-6360Pmrtm gap [Moles/Vol] 8 mmol/L7 - 17 mmol/[facility] HospitalChloride [Moles/Vol]105 mmol/L98 - 108 mmol/[facility] HospitalCO2 [Moles/Vol]31 mmol/L21 - 31 mmol/[facility] HospitalCreatinine [Mass/Vol]0.72 mg/dL0.50 - 1.20 mg/dLOSCleveland Clinic Fairview HospitaleGFR, CKD-EPI, Female- PINFOSU [facility] - TrumbullComment on above:Reported eGFR is based on the CKD-EPI 2020 equation using creatinine, age, and sex.Glucose [Mass/Vol]89 mg/dL70 - 179 mg/dLParma Community General Hospital Osmolality Calc [Osmolality]290OSCleveland Clinic Fairview HospitalPotassium [Moles/Vol]3.8 mmol/L3.5 - 5.0 mmol/[facility] Northodium [Moles/Vol]140 mmol/L135 - 145 mmol/[facility] HospitalUrea nitrogen [Mass/Vol]8 mg/dL7 - 25 mg/dL [facility] HospitalUrea nitrogen/Creatinine [Mass ratio]11 mg/mgParma Community General HospitalAnion gap [Moles/Vol]8 mmol/LNormal7-17[facility] HospitalComment on above:Performed By: #### CAMMIE SERRANO CA, CHM7 #### [facility] (DEFAULT) [address] [place], [place] [address]Zcohwfna [Moles/Vol]105 mmol/BWkvgdp97-636KxmtUc West Chester HospitalComment on above:Performed By: #### CAMMIE SERRANO, CA, CHM7 #### [facility] (DEFAULT) [address] [place], [place] [address]BR0 [Moles/Vol]31 mmol/WBrgdte30-71BwkdUc West Chester HospitalComment on above:Performed By: #### CAMMIE SERRANO, CA, CHM7 #### [facility] (DEFAULT) [address] [place], [place] [address]Msndmvscfo [Mass/Vol]0.72 mg/dLNormal0.50-1.20[facility] HospitalComment on above:Performed By: #### CAMMIE SERRANO CA, CHM7 #### [facility] (DEFAULT) [address] [place] [address] 67124wGHW, CKD-EPI, Female>Normal>=60[facility] HospitalComment on above:Result Comment: Reported eGFR is based on the CKD-EPI 2020 equation using creatinine, age, and sex.Performed By: #### CAMMIE SERRANO CA, CHM7 #### [facility] (DEFAULT) [address] [place] [address] 34750Hynkpmi [Mass/Vol]89 mg/dLNormalNonfastin-179 mg/dL; Fastin-99[facility] HospitalComment on above: Performed By: #### CAMMIE SERRANO CA, CHM7 #### [facility] (DEFAULT) [address] [place] [address] 45890Ovkexaiiiu [Osmolality]290 mosm/heFlysho909-585HgfcUc West Chester HospitalComment on above:Performed By: #### CAMMIE SERRANO CA, CHM7 #### [facility] (DEFAULT) [address] [place] [address] 22681Hpyppsope [Moles/Vol]3.8 mmol/LNormal3.5-5.0[facility] HospitalComment on above:Performed By: #### CAMMIE SERRANO CA, CHM7 #### [facility] (DEFAULT) [address] [place] [address] 93110Blpnbq [Moles/Vol]140 mmol/NXjtrht388-127JcpnUc West Chester HospitalComment on above:Performed By: #### CAMMIE SERRANO CA, CHM7 #### [facility] (DEFAULT) [address] [place] [address] 81053Vxla nitrogen [Mass/Vol]8 mg/dLNormal7-25[facility] HospitalComment on above:Performed By: #### IPB, MGO, CA, CHM7 #### [facility] (DEFAULT) [address] [place], [place] [address]Pfei nitrogen/Creatinine [Mass ratio]11 mg/mgNormSumma Health Barberton CampusComment on above:Performed By: #### IPB, MGO, CA, CHM7 #### [facility] (DEFAULT) [address] [place], [place] [address]ZHCGKUXCQwj 52-20-9457Sefrplcbmakkvt and review of laboratory resultsNormMagruder HospitalMagnesium [Mass/Vol]1.6 mg/dL1.6 - 2.6 mg/dLOSU [facility] - TrumbullMagnesium [Mass/Vol]1.6 mg/dLNormal1.6-2.6[facility] HospitalComment on above:Performed By: #### IPB, MGO, CA, CHM7 #### [facility] (DEFAULT) [address] [place] [address] 23875In Panel Informationon 60-00-8346DRB [facility] PHOSPHATE, INORGANICon 69-44-2321Qvppyzlakbwvdd and review of laboratory results NormalOSCleveland Clinic Fairview HospitalPhosphate [Mass/Vol]3.6 mg/dL2.2 - 4.6 mg/dLOSU [facility] TrumbullOSU [facility] Tr[facility]ullPhosphorous3.6 mg/dLNormal2.2-4.6 [facility] HospitalComment on above:Performed By: #### IPB, MGO, CA, CHM7 #### [facility] (DEFAULT) [address] [place] [address] 52573TBMRRKHqy 09-37-1993Uacxnmp [Mass/Vol]8.7 mg/dL8.6 - 10.5 mg/dLOSU [facility] - TrumbullCalcium [Mass/Vol]8.7 mg/dLNormal8.6-10.5[facility] HospitalComment on above:Performed By: #### CMPN, CRP, IRBC #### [facility] (DEFAULT) [address] [place] [address] 11584URT,PLATELETSon 26-93-9909Nxpystdlbif distribution width (RBC) [Ratio]13.4 %10.8 - 14.9 %[facility] HospitalHematocrit (Bld) [Volume fraction]35.3 %34.9 - 44.3 %[facility] HospitalHemoglobin (Bld) [Mass/Vol] 11.5 g/dL11.4 - 15.2 g/dLParma Community General HospitalInterpretation and review of laboratory resultsAbnoWilson HealthH (RBC) [Entitic mass]28.3 pg25.9 - 33.9 pgParma Community General HospitalMCHC (RBC) [Mass/Vol]32.6 g/dL31.4 - 35.9 g/dLParma Community General HospitalMCV (RBC) [Entitic vol]86.7 fL79.6 - 97.7 fL [facility] HospitalPlatelet mean volume (Bld) [Entitic vol]10.4 fL8.5 - 12.2 [facility] Medical CenterPlatelets (Bld) [#/Vol]240 10*3/uL150 - 393 K/uL [facility] HospitalRBC (Bld) [#/Vol]4.07 10*6/uLParma Community General Hospital WBC (Bld) [#/Vol]12.23 10*3/uLHigh3.99 - 11.19 K/uLU [facility] Children's HospitalHematocrit (Bld) [Volume fraction]35.3 %Nhdcsk80.9-44.3[facility] HospitalComment on above:Performed By: #### INGA MARTIN, IRBC #### [facility] (DEFAULT) [address] [place] [address] 69096Nmmmqqxmbf (Bld) [Mass/Vol]11.5 g/bAFtjyor55.4-15.2[facility] HospitalComment on above:Performed By: #### INGA MARTIN, IRBC #### [facility] (DEFAULT) [address] [place] [address] 30726YZM (RBC) [Entitic vol]86.7 sBWfdcoj56.6-97.7[facility] HospitalComment on above:Performed By: #### INGA MARTIN, IRBC #### [facility] (DEFAULT) [address] [place] [address] 54774Kplp Cell Hgb28.3 btNnlgqa81.9-33.9[facility] HospitalComment on above:Performed By: #### INGA MARTIN, IRBC #### [facility] (DEFAULT) [address] [place] [address] 51223Yryg Cell Hgb Conc32.6 g/rRLvqfpy77.4-35.9[facility] HospitalComment on above:Performed By: #### INGA MARTIN, IRBC #### [facility] (DEFAULT) [address] [place] [address] 59510Wartprjw mean volume (Bld) [Entitic vol]10.4 fLNormal8.5-12.2 [facility] HospitalComment on above:Performed By: #### INGA MARTIN, IRBC #### [facility] (DEFAULT) [address] [place] [address] 68441Noebfyxbs (Bld) [#/Vol]240 10*3/yMDsxdjc133-342ByyxUc West Chester HospitalComment on above:Performed By: #### INGA MARTIN, IRBC #### [facility] (DEFAULT) [address] [place] [address] 26549IFB (Bld) [#/Vol]4.07 10*6/uLNormal3.91-5.04[facility] HospitalComment on above:Performed By: #### INGA MARTIN, IRBC #### [facility] (DEFAULT) [address] [place] [address] 81816WOJ Vptxsjuomqyz68.4 %Wykvpg73.8-14.9[facility] HospitalComment on above:Performed By: #### INGA MARTIN, IRBC #### [facility] (DEFAULT) [address] [place], [place] [address]RHO (Bld) [#/Vol]12.23 10*3/uLHigh3.99-11.19[facility] HospitalComment on above:Performed By: #### INGA MARTIN, IRBC #### [facility] (DEFAULT) [address] [place], [place] [address]OCMG 7 (LYTES,BUN,CREA,GLUC)on 40-74-8356Ofmin gap [Moles/Vol] 14 mmol/L7 - 17 mmol/[facility] HospitalChloride [Moles/Vol]106 mmol/L98 - 108 mmol/[facility] HospitalCO2 [Moles/Vol]22 mmol/L21 - 31 mmol/[facility] HospitalCreatinine [Mass/Vol]0.56 mg/dL0.50 - 1.20 mg/dLParma Community General HospitaleGFR, CKD-EPI, Female- PINMount Carmel Health SystemComment on above:Reported eGFR is based on the CKD-EPI 2020 equation using creatinine, age, and sex.Glucose [Mass/Vol]111 mg/dL70 - 179 mg/dLParma Community General Hospital Osmolality Calc [Osmolality]287OSCleveland Clinic Fairview HospitalPotassium [Moles/Vol]4.5 mmol/L3.5 - 5.0 mmol/[facility] Northodium [Moles/Vol]137 mmol/L135 - 145 mmol/[facility] HospitalUrea nitrogen [Mass/Vol]7 mg/dL7 - 25 mg/dL [facility] HospitalUrea nitrogen/Creatinine [Mass ratio]13 mg/mgParma Community General HospitalAnion gap [Moles/Vol]14 mmol/LNormal7-17[facility] HospitalComment on above:Performed By: #### INGA MARTIN, IRBC #### [facility] (DEFAULT) [address] [place], [place] [address]Zxdinxxu [Moles/Vol]106 mmol/SNgeyir94-847XsymUc West Chester HospitalComment on above:Performed By: #### INGA MARTIN, IRBC #### [facility] (DEFAULT) [address] [place] [address] 54674JC6 [Moles/Vol]22 mmol/EZnkqvn45-34NxkiUc West Chester HospitalComment on above:Performed By: #### INGA MARTIN, IRBC #### [facility] (DEFAULT) [address] [place] [address] 07622Sqtxjuxpfe [Mass/Vol]0.56 mg/dLNormal0.50-1.20[facility] HospitalComment on above:Performed By: #### INGA MARTIN, IRBC #### [facility] (DEFAULT) [address] [place] [address] 60038nYFM, CKD-EPI, Female>Normal>=60[facility] HospitalComment on above:Result Comment: Reported eGFR is based on the CKD-EPI 2020 equation using creatinine, age, and sex.Performed By: #### INGA MARTIN, IRBC #### [facility] (DEFAULT) [address] [place] [address] 31085Xsodywe [Mass/Vol]111 mg/dLNormalNonfastin-179 mg/dL; Fastin-99[facility] HospitalComment on above: Performed By: #### INGA MARTIN, IRBC #### [facility] (DEFAULT) [address] [place] [address] 83237Cuazkdtaps [Osmolality]287 mosm/llRsvqpy842-214DwrrUc West [facility] HospitalComment on above:Performed By: #### INGA MARTIN, IRBC #### U [facility] (DEFAULT) [address] [place] [address] 78753Ljltdfqyv [Moles/Vol]4.5 mmol/LNormal3.5-5.0[facility] HospitalComment on above:Performed By: #### INGA MARTIN, IRBC #### [facility] (DEFAULT) [address] [place], [place] [address]Manpoo [Moles/Vol]137 mmol/SGzqeww169-731OrkdUc West [facility] HospitalComment on above:Performed By: #### INGA MARTIN, IRBC #### [facility] (DEFAULT) [address] [place], [place] [address]Rlwl nitrogen [Mass/Vol]7 mg/dLNormal7-25OhProMedica Fostoria Community HospitalComment on above:Performed By: #### INGA MARTIN, IRBC #### [facility] (DEFAULT) [address] [place] [address] 86938Yecx nitrogen/Creatinine [Mass ratio]13 mg/mgNoWood County HospitalComment on above:Performed By: #### INGA MARTIN, IRBC #### [facility] (DEFAULT) [address] [place] [address] 02442VLIVCZBRGot 23-65-7389Xfxhfuxxv [Mass/Vol]1.6 mg/dL1.6 - 2.6 mg/dLParma Community General HospitalMagnesium [Mass/Vol]1.6 mg/dLNormal1.6-2.6[facility] HospitalComment on above:Performed By: #### INGA MARTIN, IRBC #### [facility] (DEFAULT) [address] [place] [address] 31135Da Panel Informationon 34-69-1551Ptsecvbdhuuder and review of laboratory resultsNormMagruder HospitalOSCleveland Clinic Fairview Hospital PHOSPHATE, INORGANICon 81-58-6318Tcltjzycr [Mass/Vol]3.4 mg/dL2.2 - 4.6 mg/dLParma Community General HospitalPhosphorous3.4 mg/dLNormal2.2-4.6[facility] HospitalComment on above:Performed By: #### MARIO CRP, IRBC #### [facility] (DEFAULT) [address] [place] [address] 48029FOJEH TYPE RECONFIRMATIONon 89-78-7581WYV/RH(D) TYPEPositive [facility] HospitalABO/RH(D) TYPEPositiveNormal [facility] HospitalComment on above:Performed By: #### INGA MARTIN, IRBC #### [facility] (DEFAULT) [address] [place], [place] [address]LPGM HCG, URINE (POC DEVICE)on 83-91-2721Uskm HCG ( test) Ql (U)NegativeNegativeParma Community General HospitalInterpretation and review of laboratory resultsNewark HospitalTest performed at address of the patient encounter.[facility] CONTINUOUS CARDIAC MONITORING STRIPOrdered By: Unassigned Pacs on 95-31-1370KKPParma Community General Hospital Work Phone: TYPE AND SCREENon 61-34-4299LBM/RH(D) TYPEPositiveOhioHealth Hardin Memorial Hospitalpecimen Waazxthwdx18/10/2025 23:59OSU [facility] TrumbullOSCleveland Clinic Fairview HospitalABO/RH(D) TYPEPositiveNormSumma Health Barberton CampusComment on above:Performed By: #### INGA MARTIN, IRBC #### [facility] (DEFAULT) [address] [place], [place] [address]Rhntbvrw Gpvkmbcvgh83/10/2025 23:59[address] HospitalComment on above:Performed By: #### INGA MARTIN, IRBC #### [facility] (DEFAULT) [address] [place], [place] [address]KNMPHFJGNUXO, FECALon 77-25-0559VHMREMEBJERF, SEBAK641 ug/g Abnormal0 - 120 ug/gNOMS HealthcareComment on above:Results verified by repeat testing Concentration Interpretation Follow-Up < 5 - 50 ug/g Normal None >50 -120 ug/g Borderline Re-evaluate in 4-6 weeks >120 ug/g Abnormal Repeat as clinically indicated Performed at: - [facility] [id number] Dining Room Cashier: Jesús Dc MD, Phone: [phone] Interpretation and review of laboratory resultsAbnormalFulton State HospitalCLINISLivingston Regional HospitalMETRO IRON AND TIBCon 00-91-3071Asinlwuiivxkgo and review of laboratory resultsAbnormalFulton State HospitalTBH IRON22 ug/dLLow50.0 - 170.0 ug/dL NOMS HealthcareTBH PERCENT IRON HCVQHIXVQI73.4 %NOMBarnes-Jewish Saint Peters HospitalTBH TOTAL IRON BINDING AHGXJTYG137 ug/iPTqp755.0 - 450.0 ug/dLNOWY HealthcareCLINISYNCNOMS HealthcareALL CBC WITH AUTO DIFFon [id number] ABSOLUTE AUTO0.1NOMS HealthcareBasophils/100 WBC (Bld)0.5 %0.2 - 2.0 %NOMS HealthcareEosinophils/100 WBC (Bld)2 %0.9 - 7.0 %NOM HealthcareErythrocyte distribution width (RBC) [Ratio]13.9 %11.0 - 15.0 %NOMS HealthcareHematocrit (Bld) [Volume fraction]36.6 %36.0 - 48.0 %NOM HealthcareHemoglobin (Bld) [Mass/Vol]11.9 g/dLLow12.0 - 16.0 g/dLNOMercy Hospital JoplinIMMATURE GRANULOCYTES ABS AUTO0.11HighNOWY HealthcareImmature granulocytes/100 WBC (Bld)1.1 %High0.0 - 0.5 %[facility] HealthcareInterpretation and review of laboratory resultsAbnormalALTA VIEW HOSPITAL HealthcareLYMPHOCYTES ABSOLUTE AUTO1.1 LowNOWY HealthcareLymphocytes/100 WBC (Bld)11.1 %Low20.5 - 60.0 %[facility] MCH (RBC) [Entitic mass]28 pg26.7 - 34.0 pgNOMercy Hospital JoplinMCHC (RBC) [Mass/Vol] 32.5 g/dL29.9 - 35.2 g/dLFulton State HospitalMCV (RBC) [Entitic vol]86.1 fL81.0 - 99.0 fLNOWY HealthcareMONOCYTES ABSOLUTE AUTO0.9HighNOMS HealthcareMonocytes/100 WBC (Bld)8.6 %1.7 - 12.0 %NOMS HealthcareNEUTROPHILS ABSOLUTE AUTO7.7HighNOMS HealthcareNeutrophils/100 WBC (Bld)76.7 %High43.0 - 75.0 %[facility] Healthcare Platelet mean volume (Bld) [Entitic vol]10.3 fL9.5 - 13.5 fLNOMS HealthcareTBH EO #0.2NOMS HealthcareTBH BUY123OPQC HealthcareTBH RBC4.25NOMS HealthcareTBH WBC 10NOMS HealthcareCLINISYNCNOMS HealthcareBETA HCG, URINE (POC DEVICE)on 02-69-6111Kgqd HCG ( test) Ql (U)NegativeNegativeParma Community General HospitalInterpretation and review of laboratory resultsNoTriHealth Good Samaritan HospitalTest performed at address of the patient encounter.[facility]ullOSCleveland Clinic Fairview HospitalBeta HCG ( test) Ql (U)NegativeNegative [facility] HospitalInterpretation and review of laboratory resultsNormal [facility] HospitalTest performed at address of the patient encounter.[facility] HospitalCONTINUOUS CARDIAC MONITORING STRIPon [id number] Community General HospitalCONTINUOUS CARDIAC MONITORING STRIP Ordered By: Unassigned Pacs on 41-14-1227OMWParma Community General Hospital Work Phone: suRA PATH REQUESTon [id number] ReportNoWood County HospitalComment on above:Result Comment: Surgical Pathology Report Case: [id number] Authorizing Provider: Clifford Rodas MD Collected: 11/02/2024 05:03 PM [facility] Received: 11/02/2024 05:17 PM Pathologist: Lavern Restrepo MD Specimen: SURG PATH, Anal canal biopsiesPerformed By: #### CMPN, CRP, IRBC #### [facility] (DEFAULT) [address] [place], [place] [address]Clinical HistoryCrohn's disease of both small and large intestine with complication. Medical History: Crohn's colitis. 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 Asthma. Pulmonary nodules. Iron deficiency anemia. Hidradenitis suppurativa. Pulmonary nodule. Migraine.[facility] Comment on above:Performed By: #### MARIO, CRP, IRBC #### [facility] (DEFAULT) [address] [address]Ujkyyykmv CommentsWilson Street HospitalComment on above:Result Comment: Block Stain Result A1-2 CMV Negative A1-3 DOG-1 Negative A1-4 CD117 (c-kit) Negative A1-5 S-100 Negative A1-6 CAM 5.2 Negative A1-7 Smooth Muscle Actin NegativePerformed By: #### MAYKELN, CRP, IRBC #### [facility] (DEFAULT) [address] [address]Qayvv [address]Wilson [address] HospitalComment on above:Result Comment: The specimen is received in one properly labeled container with the patient's name and accession number. A. The specimen is designated anal canal biopsies and consists of two fragments of ugalde-pink soft tissue, up to 0.2-0.3 cm in greatest dimension. TE 1 Lab Use Only: JobID [id number] Grosser for this case was: Shari StarkfiorellaPerformed By: #### MARIO, INGA, IRBC #### [facility] (DEFAULT) [address] [address]Axakgojdkpo DescriptionWilson Street HospitalComment on above:Result Comment: A microscopic examination was performed. All controls show appropriate reactivity. All immunohistochemistry (IHC), in situ hybridization (MARCELLE), and histochemical tests were developed by and are performed at the [facility] Clinical Laboratory, Histology and IHC Lab, [address] [place] [address]. All Immunofluorescent (IF) tests were developed by and are performed at the [facility], Renal Division, [address] [place] [address]. All tests reported here, except for PD-L1, have not been cleared by or approved by the US Food and Drug Administration (FDA). The laboratory is regulated under CLIA as qualified to perform high-complexity testing. The tests are usedfor clinical purposes. They should not be regarded as investigational or for research.Performed By: #### INGA MARTIN, IRBC #### [facility] (DEFAULT) [address] [address]Oromdongve DiagnosisNoWood County HospitalComment on above:Result Comment: A. Anal canal, biopsy: Negative for malignancy Polypoid inflamed granulation tissue with erosion and dilated / congested vessels Negative for granulomas No epithelial lining observed at 1118 EDTPerformed By: #### INGA MARTIN, IRBC #### [facility] (DEFAULT) [address] [place] [address]Wqvacvlnbjge Interpretation Performed at:[address] Street HospitalComment on above:Result Comment: [facility] For Immediate Release to Patient's [facility]? Yes [address] [place] [address]Souuuyphb By: #### INGA MARITN, IRBC #### [facility] (DEFAULT) [address] [address]AD Abdomen and Pelvis W contrast Claudette [id number]: CT ENTEROGRAPHY 10/26/2024 11:14 am TECHNIQUE: CT [...] with luminal narrowing. Findings are suggestive of bfipf-ih-byibqsk Crohn's disease. 4. Prominent asymmetric soft tissue in the right perineum compared to the left; however, no discrete abscess or fistula identified. 5. Left adnexal dermoid measuring 3.3 x 2.8 cm. 6. Mild splenomegaly. Interpreted by: Franck Teague MD Signed by: Franck Teague MD 10/31/24 Final resultMHPTRadiology, Radiologist, - 11/01/2024 EXAMINATION: CT ENTEROGRAPHY 10/26/2024 11:14 [...] with luminal narrowing. Findings are suggestive of dozgr-xz-chhkoep Crohn's disease. 4. Prominent asymmetric soft tissue in the right perineum compared to the left; however, no discrete abscess or fistula identified. 5. Left adnexal dermoid measuring 3.3 x 2.8 cm. 6. Mild splenomegaly. Interpreted by: Franck Teague MD Signed by: Franck Teague MD 10/31/24 Final result [facility] Abdomen and Pelvis W contrast IVOrdered By: Radiologist Radiology on 61-18-6232KYJE [employer] Work Phone: ct Abdomen and Pelvis W contrast Claudette 10-31-2024 Radiology Study observation (narrative)[facility]CT [facility] W WO CONTRASTon 47-59-5977AM ENTEROGRAPHY W WO CONTRASTEXAMINATION: CT ENTEROGRAPHY 10/26/2024 11:14 am TECHNIQUE: CT [...] and large intestine with complication ([facility]) TECHNOLOGIST PROVIDED HISTORY: STAT Creatinine as needed:->No [...] with luminal narrowing. Findings are suggestive of euxrz-fb-qrwyigy Crohn's disease. 4. Prominent asymmetric soft tissue in the right perineum compared to the left; however, no discrete abscess or fistula identified. 5. Left adnexal dermoid measuring 3.3 x 2.8 cm. 6. Mild splenomegaly. Interpreted by: Franck Teague MD Signed by: Franck Teague MD 10/31/24 Final resultNormalMercy Highland District HospitalXR CHEST 2 VIEWSon 26-97-4832BA CHEST 2 VIEWSXR CHEST 2 VIEWS Reason for exam: Acute [...] electronically signed and approved by the interpreting Radiologist.NormalNot AvailableC REACTIVE PROTEINon 15-91-3113YKY High sensitivity method [Mass/Vol]27.7 mg/LHighNINF - 10.00 mg/LOSU [facility]umbullCRP [Mass/Vol]27.70 mg/LHigh<10.00[facility] HospitalComment on above:Performed By: #### CMPN, CRP, IRBC #### [facility] (DEFAULT) [address] [place], [place] [address]SHZ,PLATELETSon 87-96-7636Nntxcgqmcel distribution width (RBC) [Ratio]13.1 %10.8 - 14.9 %[facility] HospitalHematocrit (Bld) [Volume fraction]37.1 %34.9 - 44.3 %[facility] HospitalHemoglobin (Bld) [Mass/Vol] 11.6 g/dL11.4 - 15.2 g/dLParma Community General HospitalInterpretation and review of laboratory resultsAbnormMagruder HospitalMCH (RBC) [Entitic mass]26.8 pg25.9 - 33.9 pgParma Community General HospitalMCHC (RBC) [Mass/Vol]31.3 g/dLLow31.4 - 35.9 g/dLParma Community General HospitalMCV (RBC) [Entitic vol]85.7 fL79.6 - 97.7 fL [facility] HospitalPlatelet mean volume (Bld) [Entitic vol]10.1 fL8.5 - 12.2 [facility] Medical CenterPlatelets (Bld) [#/Vol]296 10*3/uL150 - 393 K/uL [facility] HospitalRBC (Bld) [#/Vol]4.33 10*6/uLU [facility] WBC (Bld) [#/Vol]11.3 10*3/uLHigh3.99 - 11.19 K/uLParma Community General HospitalOSCleveland Clinic Fairview HospitalHematocrit (Bld) [Volume fraction]37.1 %Pxirou79.9-44.3[facility] HospitalComment on above:Performed By: #### HEMOGC #### [facility] (DEFAULT) [address] [place], [place] [address]Egmqwnyngt (Bld) [Mass/Vol]11.6 g/qCFgnfxi34.4-15.2[facility] HospitalComment on above:Performed By: #### HEMOGC #### [facility] (DEFAULT) [address] [place] [address]ZBA (RBC) [Entitic vol]85.7 rOFezunh40.6-97.7[facility] HospitalComment on above:Performed By: #### HEMOGC #### [facility] (DEFAULT) [address] [place] [address]Gsjf Cell Hgb26.8 ccWxhhwn33.9-33.9[facility] HospitalComment on above:Performed By: #### HEMOGC #### [facility] (DEFAULT) [address] [place] [address]Tywd Cell Hgb Conc31.3 g/dLLow31.4-35.9[facility] HospitalComment on above:Performed By: #### HEMOGC #### [facility] (DEFAULT) [address] [place] [address]Zhyjqlmj mean volume (Bld) [Entitic vol]10.1 fLNormal8.5-12.2 [facility] HospitalComment on above:Performed By: #### HEMOGC #### [facility] (DEFAULT) [address] [place] [address]Pfmroyueh (Bld) [#/Vol]296 10*3/eWKbafyw341-499UeiaUc West Chester HospitalComment on above:Performed By: #### HEMOGC #### [facility] (DEFAULT) [address] [place] [address]WCW (Bld) [#/Vol]4.33 10*6/uLNormal3.91-5.04[facility] HospitalComment on above:Performed By: #### HEMOGC #### [facility] (DEFAULT) [address] [place], [place] [address]ZJH Kwyokyuojuuf68.1 %Ejdfuf38.8-14.9[facility] HospitalComment on above:Performed By: #### HEMOGC #### [facility] (DEFAULT) [address] [place], [place] [address]AES (Bld) [#/Vol]11.30 10*3/uLHigh3.99-11.19[facility] HospitalComment on above:Performed By: #### HEMOGC #### [facility] (DEFAULT) [address] [place], [place] [address]BLQZQAJGUTCHT METABOLIC PANELon 57-45-4629Nbwctsw [Mass/Vol] 3.8 g/dL3.5 - 5.0 g/dLOSCleveland Clinic Fairview HospitalALP [Catalytic activity/Vol]64 U/L32 - 126 U/[facility] HospitalALT [Catalytic activity/Vol]6 U/LLow9 - 48 U/[facility] HospitalAnion gap [Moles/Vol]14 mmol/L7 - 17 mmol/[facility] HospitalAST [Catalytic activity/Vol]13 U/L10 - 39 U/[facility] HospitalBilirubin [Mass/Vol]0.5 mg/dLNINF - 1.5 mg/dLParma Community General HospitalCalcium [Mass/Vol]9.2 mg/dL8.6 - 10.5 mg/dLParma Community General Hospital Chloride [Moles/Vol]103 mmol/L98 - 108 mmol/[facility] HospitalCO2 [Moles/Vol]26 mmol/L21 - 31 mmol/[facility] HospitalCreatinine [Mass/Vol] 0.73 mg/dL0.50 - 1.20 mg/dLParma Community General HospitaleGFR, CKD-EPI, Female- PINF [facility] HospitalComment on above:Reported eGFR is based on the CKD-EPI 2020 equation using creatinine, age, and sex.Glucose [Mass/Vol]82 mg/dL70 - 179 mg/dLOSU Wexner Medical CenterOsmolality Calc [Osmolality]289[facility]ullPotassium [Moles/Vol]4.2 mmol/L3.5 - 5.0 mmol/[facility] CENTERU [facility] Protein [Mass/Vol]5.5 g/dLLow6.4 - 8.3 g/dLOhioHealth Hardin Memorial Hospitalodium [Moles/Vol]139 mmol/L135 - 145 mmol/LOSCleveland Clinic Fairview HospitalUrea nitrogen [Mass/Vol]10 mg/dL7 - 25 mg/dLParma Community General HospitalUrea nitrogen/Creatinine [Mass ratio]14 mg/mgOSCleveland Clinic Fairview HospitalAlbumin [Mass/Vol]3.8 g/dLNormal 3.5-5.0[facility] HospitalComment on above:Performed By: #### INGA MARTIN, IRBC #### [facility] (DEFAULT) [address] [place], [place] [address]RWG [Catalytic activity/Vol]64 U/UTzpngk09-665AzukUc West Chester HospitalComment on above:Performed By: #### INGA MARTIN, IRBC #### [facility] (DEFAULT) [address] [place], [place] [address]RRG [Catalytic activity/Vol]6 U/LLow9-48[facility] HospitalComment on above:Performed By: #### INGA MARTIN, IRBC #### [facility] (DEFAULT) [address] [place], [place] [address]Flbpu gap [Moles/Vol]14 mmol/LNormal7-17[facility] HospitalComment on above:Performed By: #### MARIO CRP, IRBC #### [facility] (DEFAULT) [address] [place], [place] [address]QTG [Catalytic activity/Vol]13 U/AIbmnef76-62FwsoUc West Chester HospitalComment on above:Performed By: #### MARIO CRP, IRBC #### [facility] (DEFAULT) [address] [place], [place] [address]Rhwvxkehc [Mass/Vol]0.5 mg/dLNormal<1.5[facility] HospitalComment on above:Performed By: #### INGA MARTIN, IRBC #### [facility] (DEFAULT) [address] [place] [address], [place] [address]Bsujtwn [Mass/Vol]9.2 mg/dLNormal8.6-10.5[facility] HospitalComment on above:Performed By: #### INGA MARTIN, IRBC #### [facility] (DEFAULT) [address] [place] [address], [place] [address]Xkzlxyqn [Moles/Vol]103 mmol/VPxfxmv18-752EaziUc [facility] HospitalComment on above:Performed By: #### INGA MARTIN, IRBC #### [facility] (DEFAULT) [address] [place] [address], [place] [address]ZW6 [Moles/Vol]26 mmol/SPqmwzu86-34GtkwUc West Chester HospitalComment on above:Performed By: #### INGA MARTIN, IRBC #### [facility] (DEFAULT) [address] [place] [address]Ucdblvnicz [Mass/Vol]0.73 mg/dLNormal0.50-1.20[facility] HospitalComment on above:Performed By: #### INGA MARTIN, IRBC #### [facility] (DEFAULT) [address] [place] [address]oJUB, CKD-EPI, Female>Normal>=60OhProMedica Fostoria Community HospitalComment on above:Result Comment: Reported eGFR is based on the CKD-EPI 2020 equation using creatinine, age, and sex.Performed By: #### INGA MARTIN, IRBC #### [facility] (DEFAULT) [address] [place] [address]Fdjdyhn [Mass/Vol]82 mg/dLNormalNonfastin-179 mg/dL; Fastin-99OhProMedica Fostoria Community HospitalComment on above: Performed By: #### INGA MARTIN, IRBC #### [facility] (DEFAULT) [address] [place] [address]Ixdtuawckz [Osmolality]289 mosm/amCgckcr242-823SpplUc West Chester HospitalComment on above:Performed By: #### INGA MARTIN, IRBC #### [facility] (DEFAULT) [address] [place] [address]Fcyujufww [Moles/Vol]4.2 mmol/LNormal3.5-5.0[facility] HospitalComment on above:Performed By: #### INGA MARTIN, IRBC #### [facility] (DEFAULT) [address] [place] [address]Ssvvjhs [Mass/Vol]5.5 g/dLLow6.4-8.3[facility] HospitalComment on above:Performed By: #### INGA MARTIN, IRBC #### [facility] (DEFAULT) [address] [place] [address]Fqqodx [Moles/Vol]139 mmol/KPdfqpb802-769YmkrUc West [facility] HospitalComment on above:Performed By: #### INGA MARTIN, IRBC #### [facility] (DEFAULT) [address] [place] [address]Temf nitrogen [Mass/Vol]10 mg/dLNormal7-25[facility] HospitalComment on above:Performed By: #### INGA MARTIN, IRBC #### [facility] (DEFAULT) [address] [place] [address]Kwsx nitrogen/Creatinine [Mass ratio]14 mg/mgNormalOhio Sheltering Arms HospitalComment on above:Performed By: #### INGA MARTIN, IRBC #### [facility] (DEFAULT) [address] [place] [address]RKIALIUQxr 30-89-0097Uepppncc [Mass/Vol]197.1 ng/mL7.3 - 270.7 ng/mLParma Community General HospitalInterpretation and review of laboratory results NormalOSCleveland Clinic Fairview HospitalOSU [facility] TrumbullFerritin [Mass/Vol]197.1 ng/mLNormal7.3-270.7[facility] HospitalComment on above:Performed By: #### INGA MARTIN, IRBC #### [facility] (DEFAULT) [address] [place], [place] [address]KJBDRI, SERUMon 84-46-9171Bqmssz [Mass/Vol]9.14 ng/mL5.38 - PINF ng/mLParma Community General HospitalInterpretation and review of laboratory resultsNormalOSelect Medical TriHealth Rehabilitation HospitalFolate9.14 ng/mLNormal>5.38[facility] HospitalComment on above:Performed By: #### INGA MARTIN, IRBC #### [facility] (DEFAULT) [address] [place] [address]OGUY/IRON BINDING/TRANSFERRINon 62-90-4350Oogn [Mass/Vol]19 ug/dLLowOSU [facility] TrumbullIron binding capacity [Mass/Vol]205LowOSCleveland Clinic Fairview HospitalIron saturation [Mass fraction]9 %Low20 - 55 %[facility] HospitalTransferrin [Mass/Vol]164 mg/tEHnl543 - 400 mg/dLParma Community General HospitalIron [Mass/Vol]19 ug/uRLxo37-177MriwUc [facility] HospitalComment on above:Performed By: #### MARIO CRP, IRBC #### [facility] (DEFAULT) [address] [place] [address]Dkdb Saturation9 %Hai88-39MwzqUc West Chester HospitalComment on above:Performed By: #### MARIO CRP, IRBC #### [facility] (DEFAULT) [address] [place] [address]Upmxb Iron Binding Rfusfnmg560 mcg/tVGph365-315CpvtUc West Chester HospitalComment on above:Performed By: #### MARIO CRP, IRBC #### [facility] (DEFAULT) [address] [place] [address]Almwpdgdaqz [Mass/Vol]164 mg/qTTth331-473OacnUc [facility] HospitalComment on above:Performed By: #### CMPN, CRP, IRBC #### [facility] (DEFAULT) [address] [address]OKEVBGPMBGGUR ACIDon 46-49-2390DJEZCTCWHROSP ACID0.11 nmol/mL Normal<=0.40[facility] HospitalComment on above:Result Comment: ADDITIONAL INFORMATION This test was developed and its performance characteristics determined by [facility] in a manner consistent with CLIA requirements. This test has not been cleared or approved by the U.S. Food and Drug Administration. Test Performed by: [place] [address] Dining Room Cashier: Wyatt England Ph.D.; CLIA# [id number] By: #### YMMA #### [facility] (DEFAULT) [address] [address]Gr Panel Informationon 43-79-8598Ugaggebefifobj and review of laboratory resultsAbnoRiverside Community Hospital SEDIMENTATION RATE, AUTOMATEDon 59-68-0635YLS (Bld) [Velocity]20 mm/hHighNINFParma Community General HospitalInterpretation and review of laboratory resultsAbSHC Specialty HospitalESR Jnbwysztky43 mm/hrHigh<20[facility] HospitalComment on above:Performed By: #### ESR #### [facility] (DEFAULT) [address] [address]XHZQHZI B12on 04-21-8802Pwqsrapyr (Vitamin B12) [Mass/Vol]602 pg/mL211 - 911 pg/mLParma Community General HospitalComment on above:Testing of Methylmalonic Acid and Intrinsic Factor Blocking Antibody are recommended if clinical suspicion for pernicious anemia due to B12 deficiency is high for patients with intermediate B12 levels (211 to 400 pg/mL) to rule out spurious heterophile antibodies.Interpretation and review of laboratory resultsNormMagruder HospitalOSU [facility] Special[facility] Hospital - TrumbullCobalamin (Vitamin B12) [Mass/Vol] 602 pg/jWDsacep135-555SjpbUc West Chester HospitalComment on above:Result Comment: Testing of Methylmalonic Acid and Intrinsic Factor Blocking Antibody are recommended if clinical suspicion for pernicious anemia due to B12 deficiency is high for patients with intermediate B12 levels (211 to 400 pg/mL) to rule out spurious heterophile antibodies.Performed By: #### NIGA MARTIN, IRBC #### OSCleveland Clinic [facility]view Hospital (DEFAULT) [address] [address]JCIHGZP D (25-HYDROXY,TOTAL)on -OH Vitamin D Total 33.2 ng/jVXrxhdn72.0-100.0[facility] HospitalComment on above:Order Comment: Vitamin D values have been shown to be falsely decreased in lipemic samples and should be interpreted with caution.Result Comment: <10 Deficiency 10-29 Insufficiency 30-100 Optimal Level >100 Possible ToxicityPerformed By: #### INGA MARTIN, IRBC #### [facility] (DEFAULT) [address] [place] [address]QPCN, SERUMon 38-32-4567KELP, SERUM44 mcg/yYPce77-612PquwUc West [facility] HospitalComment on above:Result Comment: ADDITIONAL INFORMATION This test was developed and its performance characteristics determined by [facility] in a manner consistent with CLIA requirements. This test has not been cleared or approved by the U.S. Food and Drug Administration. Test Performed by: [facility] [address] [place] [address] Dining Room Cashier: Wyatt England Ph.D.; CLIA# [id number] By: #### INGA MARTIN, IRBC #### [facility] (DEFAULT) [address] [address]TIAHDWIJDO COLONOSCOPYon 16-21-4665Gqf [facility] Patient Name: Sue Hatfield Procedure Date: 09/06/2024 1:37 PM Date of : 2000 Admit Type: Outpatient Age: 23 Room: Endo 2 Gender: Female Note Status: Finalized Attending MD: Kacey Dalton MD, [id number] Procedure: Colonoscopy Attending Participation: I personally performed the entire procedure. Indications: High risk colon cancer surveillance: Crohn's colitis of 8 (or more) years duration with one-third (or more) of the colon involved Providers: Kacey Dalton MD (Doctor), Nadia Rivera, RN (Nurse), Rajendra Ricardo RN (Nurse) Referring MD: Milind Fitch, [employer] WORKER Complications: No immediate complications. Estimated blood loss: [...] oxygen saturations were monitored continuously. The Colonscope ([id number]) was introduced through the anus and advanced to the rectum. The patient tolerated the procedure well. The colonoscopy was performed with difficulty due to rectal stricture. Successful completion of the procedure was aided by withdrawing the scope and replacing with the UltraSlim scope. The quality of the bowel preparation was inadequate. The [id number]- [id number] was introduced through the anus with [...] - Resume previous diet (more content not included)...LAB, [facility] HospitalRadiology Study observation (narrative)[facility] HospitalHCG ( test) Ql (U)on 68-43-4463Lpxf HCG ( test) Ql (U) NegativeParma Community General HospitalInterpretation and review of laboratory results NormalParma Community General HospitalOSLima City HospitalURG PATH REQUESTon [id number] ReportNoWood County HospitalComment on above:Result Comment: Surgical Pathology Report Case: [id number] Authorizing Provider: Kacey Dalton MD Collected: 09/06/2024 02:02 PM Ordering Location: [facility]oscopy Outpatient [facility] Received: 09/06/2024 02:11 PM [facility] Pathologist: Ric Lechuga MD Specimens: A) - TISSUE, transverse colon bx hx Crohn's disease evaluate disease activity (large forceps) B) - TISSUE, left colon bx hx Crohn's disease evaluate disease activity (large forceps) C) - TISSUE, rectal bx hx Crohn's disease evaluate disease activity (large forceps)Performed By: #### CMPN, CRP, IRBC #### [facility] (DEFAULT) [address] [place] [address]Relzqyux HistoryHx Crohn's disease. Evaluate disease activity. Associated Diagnosis: Crohn's disease of both small and large intestine with complication [K50.819]. Medical History: Crohn's colitis. 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 Pulmonary nodules. Iron deficiency anemia. Hydradenitis suppurativa. Pulmonary nodule.[facility] HospitalComment on above: Performed By: #### MARIO, CRP, IRBC #### [facility] (DEFAULT) [address] [place] [id number] CommentsThe findings are compatible with patient's history of treated Chron's disease.[facility] Street HospitalComment on above:Performed By: #### MARIO, CRP, IRBC #### [facility] (DEFAULT) [address] [place] [address] [id number] DescriptionNormSumma Health Barberton CampusComment on above:Result Comment: The specimens are received in three [...] dimension. TE 1 Lab Use Only: JobID [id number] Grosser for this case was: Alanna EstebanPerformed By: #### MAYKELN, CRP, IRBC #### [facility] (DEFAULT) [address] [place] [address] [id number] DescriptionA microscopic examination was performed.Wilson Street HospitalComment on above: Performed By: #### MARIO, CRP, IRBC #### [facility] (DEFAULT) [address] [address]Orztapdgtb DiagnosisNoWood County HospitalComment on above:Result Comment: A. Colon, transverse, biopsy: Chronic colitis, mildly active. See comment No evidence of granulomas, dysplasia or malignancy B. Colon, left, biopsy: Chronic colitis, mildly active, with epithelioid granulomas. See comment No evidence of dysplasia or malignancy C. Rectum, biopsy: Chronic colitis with epithelioid granulomas. See comment No evidence of dysplasia or malignancy. at 0008 EDTPerformed By: #### MARIO, INGA, IRBC #### [facility] (DEFAULT) [address] [address]Oioxgpamlmdu Interpretation Performed at:Wilson Street HospitalComment on above:Result Comment: [facility] For Immediate Release to Patient's [facility]t? Yes [address] [place] [id number] By: #### MARIO, CRP, IRBC #### [facility] (DEFAULT) [address] [address]SF HEAD WO IV CONTRASTon 56-06-9250OR HEAD WO IV CONTRASTCT HEAD WO IV CONTRAST INDICATION: Chronic migraines [...] electronically signed and approved by the interpreting Radiologist.NormalNot AvailableOffice Visiton 70-06-9718Xwibbc-up [id number] Sue Hatfield 2000 F Date Provider Department Center 07/13/2024 ChrisPeter-AKASH LATHAMLorenzo [facility] RHEUM Gary Heal Family History Problem Relation Age of Onset Stroke Mother Hypertension Father Arthritis Maternal Grandmother Family Status - Relation Status Age at Mother Father Maternal Grandmother Level of Service:72377 [place] OFFICE/OUTPATIENT NEW MODERATE MDM 45 MINUTES (GC) Reason for Visit and Comments: New Patient [632]NormalMercy Health St. Rita's Medical CenterC. DIFFICILE PCRon 06-06-2024. DIFFICILE PCRNegativeNOMS HealthcareCLINISYNCNOMS HealthcareALL CBC WITH AUTO DIFFon 96-41-5966LTEIVDHSL ABSOLUTE VCXY2GIKU HealthcareBasophils/100 WBC (Bld)0.4 %0.2 - 2.0 %NOMS HealthcareEosinophils/100 WBC (Bld)2.4 %0.9 - 7.0 %NOMS HealthcareErythrocyte distribution width (RBC) [Ratio]12.6 %11.0 - 15.0 % NOMS HealthcareHematocrit (Bld) [Volume fraction]34.1 %Low36.0 - 48.0 %NOMS HealthcareHemoglobin (Bld) [Mass/Vol]11.3 g/dLLow12.0 - 16.0 g/dLNOMS Healthcare IMMATURE GRANULOCYTES ABS AUTO0.03NOMS HealthcareImmature granulocytes/100 WBC (Bld)0.3 %0.0 - 0.5 %NOMS HealthcareInterpretation and review of laboratory resultsAbnormalNOMS HealthcareLYMPHOCYTES ABSOLUTE AUTO1.1LowNOMS Healthcare Lymphocytes/100 WBC (Bld)11.4 %Low20.5 - 60.0 %NOMS HealthcareMCH (RBC) [Entitic mass]28.8 pg26.7 - 34.0 pgNOMS HealthcareMCHC (RBC) [Mass/Vol]33.1 g/dL29.9 - 35.2 g/dLNOWY HealthcareMCV (RBC) [Entitic vol]87 fL81.0 - 99.0 fLNOWY HealthcareMONOCYTES ABSOLUTE AUTO0.7NOMS HealthcareMonocytes/100 WBC (Bld)8 %1.7 - 12.0 %[facility] HealthcareNEUTROPHILS ABSOLUTE AUTO7.2HighNOWY Healthcare Neutrophils/100 WBC (Bld)77.5 %High43.0 - 75.0 %NOMS HealthcarePlatelet mean volume (Bld) [Entitic vol]10.2 fL9.5 - 13.5 fLNOMercy Hospital JoplinTB EO #0.2NOMS HealthcareTBH [id number] HealthcareTB RBC3.92LowNOMercy Hospital JoplinTB WBC9.3NOMercy Hospital JoplinCLINISYNCNDEACONESS HOSPITAL [facility] HealthcareLaboratory - Microbiology and Antimicrobial susceptibilityon 96-40-6897UGEN-CoV-2 (COVID-19) RNA SHARLA+probe Ql (Unsp spec) NegativeNOWY HealthcareNo Panel Informationon 67-81-7669HOZ ANegativeNOMS HealthcareFLU BNegativeNOWY HealthcareInterpretation and review of laboratory resultsNormalMissouri Southern Healthcare HealthcareHCG ( test) Qlon 03-22-2024 HCG ( test) Ql (U)NegativeNegativeMercy Health Fairfield Hospitalervice comment 40 (Unsp spec) [Interp]First morning urine is the specimen of choice for urine test. False negative results can occur when random urine specimens are tested. A serum test is recommended if results do not correlate with the patient's clinical condition. [facility] Utah State HospitalPOND HCG, Urine Qualitativeon 79-25-1226Scor HCG ( test) Ql (U)NegativeNormalNEG [facility] HospitalComment:First morning urine is the specimen of choice for urine test. False negative results can occur when random urine specimens are tested. A serum test is recommended if results do not correlate with the patient's clinical condition.NormalLima Memorial Hospital Sinuses WO contraston .Decreased, but persistent mucosal thickening of the right maxillary sinus. 2.Minimal mucosal thickening of the right frontal and left maxillary sinus. 3.Postoperative changes from prior endoscopic sinus surgery.[facility] Yann Phillips MD - 02/29/2024 REASON [...] 3.Postoperative changes from prior endoscopic sinus surgery. [facility] HospitalRadiology Study observation (narrative)[facility] Community HospitalCT Sinuses WO contrastOrdered By: Yann Phillips on 66-35-8478RkgbrrqzgePike Community Hospital Work Phone: provider [place] 16-08-4907Fxdpqbgd Orders [id number]#1.00[facility] Provider [place] 72-37-6339Yjouevto Orders [id number]#1.00[facility] DIAGNOSTIC COLONOSCOPYon 59-67-8667Uybbvz Gastroenterology Patient Name: Sue Hatfield Procedure Date: 11/18/2023 10:04 AM Date of : 2000 Admit Type: Outpatient Age: 23 Room: Endo 3 Gender: Female Note Status: Finalized Attending MD: Sharath Lambert MD, [id number] Procedure: Colonoscopy Indications: Last colonoscopy: 2019, Disease [...] oxygen saturations were monitored continuously. The Colonoscope ([id number]) was introduced through the anus and advanced to 10 cm into the ileum. The colonoscopy was performed without difficulty. The patient tolerated the procedure well. The quality of the bowel preparation was evaluated using the BBPS (Valier Bowel Preparation Scale) with scores of: Right [...] digital rectal exam. - (more content not included)...LAB, [facility] HospitalRadiology Study observation (narrative)[facility] HospitalHCG ( test) Ql (U)on 32-15-0348Drvc HCG ( test) Ql (U)NegativeOSCleveland Clinic Fairview HospitalOSCleveland Clinic Fairview HospitalFerritinon 78-19-3096Oqvsgofs [Mass/Vol]74 ng/mLNormal4-233 [facility] HospitalCBCon 24-13-8496Gincvpglkks distribution width (RBC) [Ratio]14.5 %Ssgc52-15.1NationCherrington HospitalHematocrit (Bld) [Volume fraction]37.7 %Cxwlqs78.0-46.0[facility] HospitalHemoglobin (Bld) [Mass/Vol]12.6 g/fRCweywj55.0-16.0[facility] HospitalH (RBC) [Entitic mass]29.2 ivIrzsqa32.0-34.0[facility] HospitalHC33.4 % Eggher81.0-37.0[facility]ton HospitalV (RBC) [Entitic vol]87.3 fL Wlvanz03.0-100.0[facility] Community HospitalPlatelet mean volume (Bld) [Entitic vol]10.1 fLNormal8.8-13.0[facility] HospitalComment on above:Result Comment: Performed at [facility],[address], [place], [place] [address]Blhurcxpd (Bld) [#/Vol]204 10*3/sKEnadln678-318Uapenshagk Children's HospitalRBC ([facility]) [#/Vol]4.3 10*6/uLNormal4.0-5.2NOhioHealth Doctors Hospital ([facility]) [#/Vol]10.5 10*3/uLNormal4.5-11.0NatOur Lady of Mercy Hospital - Anderson 35-83-3104Yldf [Mass/Vol]70 ug/jJFhvpqn38-578 [facility] 55-28-1756KVxetwgzk: LE78-374 Received: 09/03/23 Status: RADHA Paz Num: [id number] Spec Type: Surgical Subm Dr: Jayme Hi Tissues: A Placenta - 3rd Trimester (Greater than 28 weeks) (PLACENTA) Procedures: HE/3, Gross/Micro L5 Age/ Patient Sex Location Account Attending Physician Sue Hatfield [facility] [id number] Alfredo Duong APRN SPEC NUM: [id number] RECD: 09/03/23 STATUS: RADHA PAZ NUM: [id number] SHAY: 09/03/[address]: Jayme Hi ENTERED: 09/03/23 [facility] DR: Jaylon,Sravan SPEC TYPE: Surgical DEPT: FOREIGN HUSAIN ORDERED: [...] lobulated cotyledons. No loose or adherent Specimen: [id number] Received: 09/03/23 Status: RADHA Paz Num: [id number] Spec Type: Surgical Subm Dr: Jayme Hi Tissues: A Placenta - 3rd Trimester (Greater than 28 weeks) (PLACENTA) Procedures: HE/3, Gross/Micro L5 Patient: Sue Hatfield [id number] (Continued) Specimen: [id number] Received: 09/03/23 (Continued) Gross Description (Continued) Signed (signature on file) Rachel Saldivar MD 09/08/23 1715 Specimen: [id number] Received: 09/03/23 Status: RADHA Leeann Num: [id number] Spec Type: Surgical Subm Dr: Jayme Hi Tissues: A Placenta - 3rd Trimester (Greater than 28 weeks) (PLACENTA) Procedures: HE/3, Gross/Micro L5 Patient: Sue Hatfield [id number] (Continued) Specimen: [id number] Received: 09/03/23 (Continued) Gross Description (Continued) blood [...] A3: random mid-zonal section TW CPT Codes 48264 Specimen: [id number] Received: 09/03/23 Status: RADHA Paz Num: [id number] Spec Type: Surgical Subm Dr: Jayme Hi Tissues: A Placenta - 3rd Trimester (Greater than 28 weeks) (PLACENTA) Procedures: Kelsie SAENZ/Sushma L5 Patient: Sue Hatfield [id number] (Continued) Signed (signature on file) Rachel Saldivar MD 09/08/[address] [place] [address] Physician GroupPOCT URINE DIPSTICK AUTOMATEDOrdered By: Xochitl Murphy on 92-40-7352Tzihzcrge sediment LM Ql (Urine sed)[facility]Appearance (U)slightly cloudyOS[facility] TrumbullBacteria LM Ql (Urine sed)[facility]ullBilirubin Ql (U)NegativeOSU [facility] Special[facility] Hospital - TrumbullCasts LM.LPF (Urine sed) [#/Area][facility]ullColor (U)yellowOSU [facility] Special[facility] Hospital - TrumbullCrystals LM Nom (Urine sed)[facility]ullEpithelial cells.squamous LM.HPF (Urine sed) [#/Area][facility]ullFlow cytometry specialist review Trevin (Unsp spec) [Interp][facility]ullGlucose Auto test strip (U) [Mass/Vol]Negativemg/dLOSCleveland Clinic Fairview HospitalInterpretation and review of laboratory resultsAbnormalOSelect Medical TriHealth Rehabilitation HospitalKetones [Mass/Vol]Negativemg/dLOSU [facility] TrumbullLeukocyte esterase Qn (U)[facility]ullLeukocyte esterase Test strip Ql (U) NegativeOSU [facility] Medical Specialty Hospital - TrumbullMicroscopic observation Gram stain Nom (Bronch spec)[facility] TrumbullNitrite Ql (U)NegativeOSU [facility] Medical Special[facility] Hospital - TrumbullpH (U)7.5 [pH]Abnormal5 - 7[facility] Tr[facility]ullProtein Ql (U)Negativemg/dLOSU [facility] Special[facility] Hospital [facility] TrumbullRBC LM.HPF (Urine sed) [#/Area][facility] HospitalC Ql (U)NegativeOSU [facility] Joseph Warren Hospitalpecific gravity (U) [Rel density]1.015 1.001 - 1.035[facility]ullTransitional cells LM Ql (Urine sed)[facility] TrumbullUrobilinogen Qn (U)0.2[facility] TrumbullWBC LM.HPF (Urine sed) [#/Area][facility] Hospital - TrumbullOSCleveland Clinic Fairview HospitalUS VENOUS DOPPLER LE LTon 28-20-8285[address] [address] Ultrasound Report Signed Patient: SUE HATFIELD MR#: [id number] : 2000 Acct:[id number] Age/Sex: 22 / F ADM Date: 08/06/23 Loc: RAD Attending Dr: Simona-Staff Physician Cordero Ordering Physician: Sydney Crawford M.D. Date of Service: 08/06/23 Procedure(s): US venous doppler LE LT Accession Number(s): [id number] cc: CHEY ARAGON ; Sydney Crawford M.D. [place] [address] Patient Name: SUE HATFIELD MRN: [id number] date: 2000 Sex: F Assigned Patient Location: RAD Current Patient Location: RAD Accession/Order Number: [id number] Exam Date: 08/06/2023 16:40 Report Date: 08/06/2023 [...] the left lower extremity. Electronically authenticated by: CARMELITA MEDINA Date: 08/06/2023 18:10 Dictated By: Carmelita Medina M.D. Signed By: 08/06/231812 DD/ 09 TD/TT: Fitter Up:TBHRadiology, Radiologist, - 08/06/2023 [place] [address] Ultrasound Report Signed Patient: SUE HATFIELD MR#: [id number] : 2000 Acct:[id number] Age/Sex: 22 / F ADM Date: 08/06/23 Loc: RAD Attending Dr: Non-Staff Physician Gil Ordering Physician: Lucina CrawfordStaff Gil Date of Service: 08/06/23 Procedure(s): US venous doppler LE LT Accession Number(s): [id number] cc: CHEY ARAGON ; Physician,Sydney Cordero [place] [id number] Patient Name: SUE HATFIELD MRN: [facility]:[id number] date: 2000 Sex: F Assigned Patient Location: [facility] Current Patient Location: RAD Accession/Order Number: [id number] Exam Date: 08/06/2023 16:40 Report Date: 08/06/2023 [...] the left lower extremity. Electronically authenticated by: CARMELITA MEDINA Date: 08/06/2023 18:10 Dictated By: Carmelita Medina M.D. Signed By: 08/06/231812 DD/ 09 TD/TT: Fitter Up: ADRYAN HealthcareRadiology Study observation (narrative)NOMTarik HealthcareUS VENOUS DOPPLER LE LTOrdered By: Radiologist Radiology on 34-49-2924JJCX [employer] Work Phone: No [facility] Informationon 62-28-4519LhvnbFranck Hernandez NP 05/26/2023 5:53 PM Ear Cerumen Removal Date/Time: 05/26/2023 5:46 PM Performed by: Franck Hernandez NP Authorized by: Franck Hernandez NP Consent: Consent obtained: Verbal Consent given by: Patient Risks, benefits, and alternatives were discussed: yes Risks discussed: Incomplete removal, TM perforation and dizziness Alternatives discussed: No treatment Louisa protocol: Patient identity confirmed: Verbally with patient Procedure details: Location: L ear and R ear Procedure type: irrigation Procedure outcomes: cerumen removed Post-procedure details: Inspection: TM intact Hearing quality: Normal Procedure completion: Tolerated well, no immediate complicationsMercy hospital springfield HealthcareChlamydia/GC by PCR Roldan Swabon 64-06-4066Zdjtepexs Dna(Pcr)Not detectedProAdams County HospitalGonorrhoeae Dna(Pcr)Not detectedProAdams County HospitalProAdams County HospitalC REACTIVE PROTEINon 39-48-1068QRX High sensitivity method [Mass/Vol]4.81 mg/LNINF - 10.00 mg/[facility] Interpretation and review of laboratory resultsNoTriHealth Good Samaritan Hospital CHEM 6 (LYTES, BUN CREA)on 88-89-7566Xswko gap [Moles/Vol]12 mmol/L7 - 17 mmol/L [facility]Chloride [Moles/Vol]105 mmol/L98 - 108 mmol/[facility] HospitalCO2 [Moles/Vol]25 mmol/L21 - 31 mmol/[facility] Creatinine [Mass/Vol]0.48 mg/dLLow0.50 - 1.20 mg/dLPar[facility] eGFR, CKD-EPI, Female- PINMount Carmel Health SystemComment on above:Reported eGFR is based on the CKD-EPI 2020 equation using creatinine, age, and sex. Potassium [Moles/Vol]3.9 mmol/L3.5 - 5.0 mmol/[facility] Northodium [Moles/Vol]138 mmol/L135 - 145 mmol/[facility] HospitalUrea nitrogen [Mass/Vol]7 mg/dL7 - 25 mg/dLParma Community General HospitalUrea nitrogen/Creatinine [Mass ratio]15 mg/mgParma Community General HospitalChronic hepatitis differentiation between hepatitis B and C virus panelOrdered By: Maty Cook on 55-61-9552VWM core IgG+IgM Ql (S)NegativeNegativeOSU [facility] Special[facility] Hospital [facility] TrumbullHBV surface Ab IA Ql (S)NegativeNegativeOS[facility] TrumbullHBV surface Ag Ql (S)Negative NegativeOSU [facility] TrumbullHCV Ab Ql (S)NegativeNegativeParma Community General HospitalInterpretation and review of laboratory resultsNormMagruder HospitalOSCleveland Clinic Fairview HospitalFOLATE, SERUMOrdered By: Ralf Chamorro on 65-14-7537Egdqhy [Mass/Vol]38.76 ng/mL5.38 - PINF ng/mLOSCleveland Clinic Fairview Hospital Interpretation and review of laboratory resultsNormMagruder Hospital [facility]ullHEPATIC FUNCTION PANELon 00-39-5393Wxbrskz [Mass/Vol] 4.0 g/dL3.5 - 5.0 g/dLOSCleveland Clinic Fairview HospitalALP [Catalytic activity/Vol]42 U/L32 - 126 U/[facility] HospitalALT [Catalytic activity/Vol]5 U/LLow9 - 48 U/[facility] HospitalAST [Catalytic activity/Vol]10 U/L10 - 39 U/[facility] HospitalBilirubin [Mass/Vol]0.5 mg/dLNINF - 1.5 mg/dLOSCleveland Clinic Fairview HospitalBilirubin.direct [Mass/Vol]0.1 mg/dLNINF - 0.3 mg/dLParma Community General HospitalProtein [Mass/Vol]6.0 g/dLLow6.4 - 8.3 g/dLParma Community General HospitalHIV 1&2 AB/AG Screen (P24 AG)on 26-46-6961BZK 1&2 AB/AGNon-Reactive Community Memorial Hospital SystemHepatitis B surface antigenon 76-54-2089Oswfgpdzl B Surface AntigenNon-ReactiveKeenan Private HospitalNo Panel Informationon 53-86-7207Pvdqxhfgmkhaoq and review of laboratory resultsAbnoTriHealth Good Samaritan HospitalOSCleveland Clinic Fairview HospitalOSLima City Hospitalyphilis Total(Unknown Syphilis Status)on 89-57-1098LaplafttGyc-ReactiveCommunity Memorial Hospital SystemType and screenon 83-70-9296Akq/Rh(D)PositiveCommunity Memorial Hospital System VITAMIN B12on 18-27-4372Udszddqkd (Vitamin B12) [Mass/Vol]421 pg/mL211 - 911 pg/mLOSU [facility] TrumbullComment on above:Testing of Methylmalonic Acid and Intrinsic Factor Blocking Antibody are recommended if clinical suspicion for pernicious anemia due to B12 deficiency is high for patients with intermediate B12 levels (211 to 400 pg/mL) to rule out spurious heterophile antibodies. Interpretation and review of laboratory resultsNoTriHealth Good Samaritan HospitalXR Chest 2 Views*on 84-09-7254PL Chest 2 Views*FINDINGS: No acute cardiac or pulmonary disease is identified. No worrisome mass lesions or infiltrates are seen. No pulmonary edema or pneumothorax is present. Cardiac silhouette size is normal. Skeletal structures are normal. IMPRESSION: No acute cardiac or pulmonary disease Report reported and signed by Herbie Pace on 04/03/2022 1551NoPomerene HospitalXR Chest 2 Views*on 24-82-1256WR Chest 2 Views*FINDINGS: No acute cardiac or pulmonary disease is identified. No worrisome mass lesions or infiltrates are seen. No pulmonary edema or pneumothorax is present. Cardiac silhouette size is normal. Skeletal structures are normal. IMPRESSION: No focal infiltrates Report reported and signed by Herbie Pace on 03/10/2022 1220NoPomerene HospitalXR Chest 2 Views*on 06-28-7653CO Chest 2 Views*HISTORY: Acute Cough FINDINGS: Comparison made with prior examiantion of November 19, 2021. No new infiltrates, consolidation or pneumothorax. Mild peribronchial thickening accentuated by slightly greater reduction in lung volumes on the current examination. IMPRESSION: 1. No new infiltrates or significant post-inflammatory sequela. Report reported and signed by Herbie Pace on 12/06/2021 1352NoPomerene HospitalXR Chest 2 Views*on 22-75-9137JI Chest 2 Views*FINDINGS: No acute cardiac or pulmonary disease is identified. No worrisome mass lesions or infiltrates are seen. No pulmonary edema or pneumothorax is present. Cardiac silhouette size is normal. Skeletal structures are normal. IMPRESSION: No acute cardiac or pulmonary disease Report reported and signed by Herbie Pace on 11/19/2021 1128Paulding County HospitalComplete Blood Count with Auto Diffon 32-63-5979Xsykdfhcc (Bld) [#/Vol]0.06 10*3/uLNormal0.00-0.20[facility] HospitalComment on above:Performed By: #### CBCAD #### [facility] [address] [place], [place] [id number]/100 WBC (Bld)0.5 %NormalOhiohealth SpecialistComment on above:Performed By: #### CBCAD #### [facility] [address] [place], [place] [id number] (Bld) [#/Vol]0.35 10*3/uLNormal0.02-0.50[facility] Community HospitalComment on above:Performed By: #### CBCAD #### [facility] [address] [place], [place] [id number]/100 WBC (Bld)2.8 %NormalNoCorey HospitalComment on above:Performed By: #### CBCAD #### [facility] [address] [place], [place] [id number] distribution width (RBC) [Ratio]12.7 %Normal 11.0-15.0[facility] Community HospitalComascension standish hospital on above:Performed By: #### CBCAD #### [facility] [address] [place], [place] [id number] (Bld) [Volume fraction]37.5 %Oiteat02.0-47.0 [facility] HospitalComment on above:Performed By: #### CBCAD #### [facility] [address] [place], [place] [id number] (Bld) [Mass/Vol]12.2 g/iXGvriid36.6-15.5[facility] HospitalComascension standish hospital on above:Performed By: #### CBCAD #### [facility] [address] [place], [place] [id number] (Bld) [#/Vol]2.5 10*3/uLNormal0.9-3.9[facility] SpecialistComment on above:Performed By: #### CBCAD #### [facility] [address], [place] [id number]/100 WBC (Bld)19.8 %NormalNoKettering Health SpecialistComment on above:Performed By: #### CBCAD #### [facility] [address] [place], [place] [id number] (RBC) [Entitic mass]29.7 gnLktsds57.0-33.0NoKettering Health SpecialistComment on above:Performed By: #### CBCAD #### [facility] [address] [place], [place] [id number] (RBC) [Mass/Vol]32.5 g/vTHlapyj27.0-36.0NoKettering Health SpecialistComment on above:Performed By: #### CBCAD #### [facility] [address] [place], [place] [id number] (RBC) [Entitic vol]91 yDGrgict53-426Bilxfjbt [place] [facility] SpecialistComment on above:Performed By: #### CBCAD #### [facility] [address] [place], [place] [id number] (Bld) [#/Vol]0.9 10*3/uLNormal0.2-0.9NoKettering Health SpecialistComment on above:Performed By: #### CBCAD #### [facility] [address], [place] [id number]/100 WBC (Bld)7.2 %NormalNoKettering Health SpecialistComment on above:Performed By: #### CBCAD #### [facility] [address] [place], [place] [id number] (Bld) [#/Vol]8.8 10*3/uLHigh1.5-7.8NoKettering Health SpecialistComment on above:Performed By: #### CBCAD #### [facility] [address] [place], [place] [id number]/100 WBC (Bld)69.3 %NormalNortpage hospitaln [place] Medical SpecialistComment on above:Performed By: #### CBCAD #### [facility] [address], [place] [id number] mean volume (Bld) [Entitic vol]10.20 fLNormal 7.50-12.50Nortpage hospitaln [place] [facility] SpecialistComment on above:Performed By: #### CBCAD #### [facility] [address] [place], [place] [id number] (Bld) [#/Vol]258 10*3/xTVbouqb811-674Lqlkbnbe [place] [facility] SpecialistComment on above:Performed By: #### CBCAD #### [facility] [address] [place], [place] [id number] (Bld) [#/Vol]4.11 10*6/uLNormal3.90-5.20Nortpage hospitaln [facility] SpecialistComment on above:Performed By: #### CBCAD #### [facility] [address] [place], [place] [id number]-NZ44.4 vYLlvclj74.0-50.0NortTriHealth McCullough-Hyde Memorial Hospital Family Engagement Specialist Comment on above:Performed By: #### CBCAD #### [facility] [address], [place] [id number] (Bld) [#/Vol]12.7 10*3/uLHigh3.8-11.0NortWexner Medical Center SpecialistComment on above:Performed By: #### CBCAD #### [facility] [address], [place] [id number] Subclasseson 58-50-9216DiT subclass 1300 mg/dLNormal 240-1118Kettering Health Greene MemorialComment on above:Result Comment: (NOTE) REFERENCE INTERVAL: Immunoglobulin G Subclass 1 The total IgG (mg/dL) can be derived from the sum of the subclass IgG1, IgG2, IgG3, and IgG4 values. However, a confirmatory and more precise total IgG is available by the turbidimetric method of quantitation for total IgG. Refer to test Immunoglobulin G, Serum ([id number]). Access complete set of age- and/or gender-specific reference intervals for this test in the [facility] Laboratory Test Directory ([facility]).Performed By: ###Harini CHAKRABORTY APNAB1 #### [facility] [address] [place] [address] Dining Room Cashier: Cody Dye MD #### IFX, FLLS, IMMS, CDP, THYGLA #### [address] [address] Dining Room Cashier: Jone Eller MDIgG subclass 2193 mg/fVSikklw164-349YpdrsKettering Health Greene MemorialComment on above:Result Comment: (NOTE) REFERENCE INTERVAL: Immunoglobulin G Subclass 2 Access complete set of age- and/or gender-specific reference intervals for this test in the [facility] Laboratory Test Directory ([facility]).Performed By: ###Harini CHAKRABORTY APNAB1 #### [facility] [address] [place] [address] Dining Room Cashier: Cody Dye MD #### IFX, FLLS, IMMS, CDP, THYGLA #### [address] [address] Dining Room Cashier: Rosalinda Zhao subclass 361 mg/jDAqvqpn12-544KgyzrKettering Health Greene MemorialComment on above:Result Comment: (NOTE) REFERENCE INTERVAL: Immunoglobulin G Subclass 3 Access complete set of age- and/or gender-specific reference intervals for this test in the [facility] Laboratory Test Directory ([facility]).Performed By: ###Harini CHAKRABORTY APNAB1 #### [facility] [address] [place] [address] Dining Room Cashier: Cody Dye MD #### IFX, FLLS, IMMS, CDP, THYGLA #### [address] [address] Dining Room Cashier: Rosalinda Zhao subclass 43 mg/dLNo08 Beasley StreetComment on above:Result Comment: (NOTE) REFERENCE INTERVAL: Immunoglobulin G Subclass 4 Access complete set of age- and/or gender-specific reference intervals for this test in the [facility] Laboratory Test Directory ([facility]). Performed by [employer], [address] [place] [address] www.[facility], Ruthie Augustin MD, Lab. DirectorPerformed By: #### AIGGSB, APNAB1 #### [employer] [address] [place] [address] Dining Room Cashier: Cody Dye MD #### IFX, FLLS, IMMS, CDP, THYGLA #### [facility] [address] [place] [address] Dining Room Cashier: Jone Eller MDPneumococcal Ab, IgGon 07-12-2021.pneum Interp See NoteNormalKettering Health Greene MemorialComment on above:Result Comment: (NOTE) INTERPRETIVE INFORMATION: Streptococcus pneumoniae Antibodies, IgG A [...] developed and its performance characteristics determined by [employer]. It has not been cleared or approved by the US Food and Drug Administration. This test was performed in a CLIA certified laboratory and is intended for clinical purposes. Performed By: [employer] [address] [place] [address] Behavior Analyst: ALEJANDRA Strattonerformed By: #### MYLENE APNAB1 #### [employer] [address] [place] [address] Dining Room Cashier: Cody Dye MD #### KAPIL MEDINA, IMMS, CDP, THYGLA #### [address] [address] Dining Room Cashier: CHIOMA Zhao.pneum type 1,IgG0.11 ug/mLNCrystal Clinic Orthopedic CenterComment on above:Performed By: #### MYLENE APNAB1 #### [employer] [address] [place] [address] Dining Room Cashier: Cody Dye MD #### KAPIL MEDINA, IMMS, CDP, THYGLA #### [facility] [employer] [address] [place], [place] [id number] Dining Room Cashier: CHIOMA Zhao.pneum type 12F,IgG0.14 ug/mLNCrystal Clinic Orthopedic CenterComment on above:Performed By: #### AIGGSB, APNAB1 #### [facility] [address] [place] [address] Dining Room Cashier: Cody Dye MD #### IFX, FLLS, IMMS, CDP, THYGLA #### [facility] [address] [place] [address] Dining Room Cashier: CHIOMA Zhao.pneum type 14,IgG0.19 ug/mLNormalKettering Health Greene MemorialComment on above:Performed By: #### AIGGSB, APNAB1 #### [facility] [address] [place] [address] Dining Room Cashier: Cody Dye MD #### IFX, FLLS, IMMS, CDP, THYGLA #### [facility] [address] [place] [address] [phone] Dining Room Cashier: CHIOMA Zhao.pneum type 18C,IgG6.82 ug/mLNormalKettering Health Greene MemorialComment on above:Performed By: #### AIGGSB, APNAB1 #### [facility] [address] [place], [place] [id number] Dining Room Cashier: Cody Dye MD #### IFX, FLLS, IMMS, CDP, THYGLA #### [facility] [address] [place] [address] [phone] Dining Room Cashier: CHIOMA Zhao.pneum type 19F,IgG10.07 ug/mLNCrystal Clinic Orthopedic CenterComment on above:Performed By: #### AIGGSB, APNAB1 #### [facility] [address] [place] [address] Dining Room Cashier: Cody Dye MD #### IFX, FLLS, IMMS, CDP, THYGLA #### [facility] [address] [place] [address] [phone] Dining Room Cashier: CHIOMA Zhao.pneum type 23F,IgG2.17 ug/mLNormalKettering Health Greene MemorialComment on above:Performed By: #### AIGGSB, APNAB1 #### [facility] [address] [place] [address] Dining Room Cashier: Cody Dye MD #### IFX, FLLS, IMMS, CDP, THYGLA #### [facility] [address] [place] [address] Dining Room Cashier: CHIOMA Zhao.pneum type 3,IgG0.92 ug/mLNormalKettering Health Greene MemorialComment on above:Performed By: #### AIGGSB, APNAB1 #### [facility] [address] [place] [address] Dining Room Cashier: Cody Dye MD #### IFX, FLLS, IMMS, CDP, THYGLA #### [address] [address] Dining Room Cashier: CHIOMA Zhao.pneum type 4,IgG0.08 ug/mLNormalKettering Health Greene MemorialComment on above:Performed By: #### MYLENE, APNAB1 #### [facility] [address] [place], [place] [id number] Dining Room Cashier: Cody Dye MD #### IFX, FLLS, IMMS, CDP, THYGLA #### [address] [address] Dining Room Cashier: CHIOMA Zhao.pneum type 5,IgG3.04 ug/mLNormalKettering Health Greene MemorialComment on above:Performed By: #### AIGGSB, APNAB1 #### [facility] [address] [place] [address] Dining Room Cashier: Cody Dye MD #### IFX, FLLS, IMMS, CDP, THYGLA #### [facility] [address] [place] [address] [phone] Dining Room Cashier: CHIOMA Zhao.pneum type 6B,IgG0.76 ug/mLNormalKettering Health Greene MemorialComment on above:Performed By: #### AIGGSB, APNAB1 #### [facility] [address] [place] [address] Dining Room Cashier: Cody Dye MD #### IFX, FLLS, IMMS, CDP, THYGLA #### [facility] [address] [place] [address] [phone] Dining Room Cashier: CHIOMA Zhao.pneum type 7F,IgG1.36 ug/mLNormalKettering Health Greene MemorialComment on above:Performed By: #### AIGGSB, APNAB1 #### [facility] [address] [place] [address] Dining Room Cashier: Cody Dye MD #### IFX, FLLS, IMMS, CDP, THYGLA #### [facility] [address] [place] [address] [phone] Dining Room Cashier: CHIOMA Zhao.pneum type 8,IgG0.40 ug/mLNormalKettering Health Greene MemorialComment on above:Performed By: #### AIGGSB, APNAB1 #### [facility] [address] [place], [place] [id number] Dining Room Cashier: Cody Dye MD #### IFX, FLLS, IMMS, CDP, THYGLA #### [facility] [address] [place] [address] [phone] Dining Room Cashier: CHIOMA Zhao.pneum type 9N,IgG0.54 ug/mLNormalKettering Health Greene MemorialComment on above:Performed By: #### AIGGSB, APNAB1 #### [facility] [address] [place] [address] Dining Room Cashier: Cody Dye MD #### IFX, FLLS, IMMS, CDP, THYGLA #### [facility] [address] [place] [address] Dining Room Cashier: CHIOMA Zhao.pneum type 9V,IgG0.75 ug/mLNCrystal Clinic Orthopedic CenterComment on above:Performed By: #### AIGGSB, APNAB1 #### [facility] [address] [place] [address] Dining Room Cashier: Cody Dye MD #### IFX, FLLS, IMMS, CDP, THYGLA #### [facility] [address] [place] [address] [phone] Dining Room Cashier: Jone Eller MDImmunofixation,Blood 65-63-3461TWF - Interpret.IMMUNOFIXATION IS NEGATIVE FOR MONOCLONAL IMMUNOGLOBULIN.[facility] St. Charles HospitalComment on above:Performed By: #### MYLENE, APNAB1 #### [facility] [address] [place] [address] Dining Room Cashier: Cody Dye MD #### IFX, FLLS, IMMS, CDP, THYGLA #### [facility] [address] [place] [address] [phone] Dining Room Cashier: ALEJANDRA Zhaoathologist Review:ELECTRONICALLY SIGNED. VADIM TURNER M.D.[facility] Health St. Charles HospitalComment on above: Performed By: #### AIGGSMargareth, APNAB1 #### [facility] [address] [place] [address] Dining Room Cashier: Cody Dye MD #### IFX, FLLS, IMMS, CDP, THYGLA #### [facility] [address] [place] [address] [phone] Dining Room Cashier: Jone Eller MDLymphocyte Subseton 22-93-3465Kf(CD3-,CD56+)123 /dGYnxhgl84-520Dbpjj [facility] Beach Medical CenterComment on above:Performed By: #### FATOUSMargareth, APNAB1 #### [facility] [address] [place] [address] Dining Room Cashier: Cody Dye MD #### IFX, FLLS, IMMS, CDP, THYGLA #### [facility] [address] [place] [address] Dining Room Cashier: Zach Zhao.T Help(CD3+,CD4+)1652 /[id number] Health Greene MemorialComment on above:Performed By: #### MYLENE APNAB1 #### [facility] [address] [place] [address] Dining Room Cashier: Cody Dye MD #### IFX, FLLS, IMMS, CDP, THYGLA #### [facility] [address] [place] [address] Dining Room Cashier: MDAb. CeceT Sup.(CD3+,CD8+)641 /sYLbcjhr560-307PuhlwKettering Health Greene MemorialComment on above:Performed By: #### MYLENE APNAB1 #### [facility] [address] [place] [address] Dining Room Cashier: Cody Dye MD #### IFX, FLLS, IMMS, CDP, THYGLA #### [facility] [address] [place] [address] Dining Room Cashier: Radha Zhao. Total B (CD19+)0 /xYBxj68-829NltjqKettering Health Greene MemorialComment on above:Performed By: #### MYLENE APNAB1 #### [facility] [address] [place] [address] Dining Room Cashier: Cody Dye MD #### IFX, FLLS, IMMS, CDP, THYGLA #### [facility] [address] [place] [address] Dining Room Cashier: Radha Zhao. Total T (CD3+)2317 /uDMnwj303-1689HqfidKettering Health Greene MemorialComment on above:Performed By: #### RLGGSMargareth, APNAB1 #### [facility] [address] [place] [address] Dining Room Cashier: Cody Dye MD #### IFX, FLLS, IMMS, CDP, THYGLA #### [facility] [address] [place] [address] Dining Room Cashier: Jone Eller MDH/S Ratio(CD4+/CD8+)2.23Ldguaa6.6-2.8K[facility] Greene MemorialComment on above:Performed By: #### MYLENE, APNAB1 #### [facility] [address] [place] [address] Dining Room Cashier: Cody Dye MD #### IFX, FLLS, IMMS, CDP, THYGLA #### [facility] [address] [place] [address] Dining Room Cashier: Jone Eller MDLymphocytes/100 WBC (Bld)17 %Xpr10-75YdzxkKettering Health Greene MemorialComment on above:Performed By: #### MYLENE, APNAB1 #### [facility] [address] [place] [address] Dining Room Cashier: Cody Dye MD #### IFX, FLLS, IMMS, CDP, THYGLA #### [facility] [address] [place] [address] Dining Room Cashier: PAMELA Zhao (CD3-,CD56+)5 %Low6-29K[facility] Greene MemorialComment on above:Performed By: #### MYLENE, APNAB1 #### [facility] [address] [place] [address] Dining Room Cashier: Cody Dye MD #### IFX, FLLS, IMMS, CDP, THYGLA #### [facility] [address] [place] [address] Dining Room Cashier: Jone Eller MDT Continental (CD3+,CD4+)67 %Bdok00-07CysliKettering Health Greene MemorialComment on above:Performed By: #### MYLENE, APNAB1 #### [facility] [address] [place] [address] Dining Room Cashier: Cody Dye MD #### IFX, FLLS, IMMS, CDP, THYGLA #### [facility] [address] [place] [address] [phone] Dining Room Cashier: Jone Eller MDT Sup. (CD3+, CD8+)26 %Ujeryr06-50ZxzceKettering Health Greene MemorialComment on above:Performed By: #### MYLENE, APNAB1 #### [facility] [address] [place] [address] Dining Room Cashier: Cody Dye MD #### IFX, FLLS, IMMS, CDP, THYGLA #### [facility] [address] [place] [address] [phone] Dining Room Cashier: Jone Eller MDTotal B (CD19+)0 %Low5-25K[facility] Greene MemorialComment on above:Performed By: #### MYLENE, APNAB1 #### [facility] [address] [place] [address] Dining Room Cashier: Cody Dye MD #### IFX, FLLS, IMMS, CDP, THYGLA #### [facility] [address] [place] [address] [phone] Dining Room Cashier: Jone Eller MDTotal T (CD3+)94 %Llstia97-79ZomzmKettering Health Greene MemorialComment on above:Performed By: #### MYLENE, APNAB1 #### [facility] [address] [place] [address] Dining Room Cashier: Cody Dye MD #### IFX, FLLS, IMMS, CDP, THYGLA #### [address] [phone] Dining Room Cashier: Jone Eller MDWBC (Bld) [#/Vol]14.5 10*3/uLHigh4.5-13.5K[facility] Greene MemorialComment on above:Performed By: #### MYLENE APNAB1 #### [facility] [address] [place] [address] Dining Room Cashier: Cody Dye MD #### IFX, FLLS, IMMS, CDP, THYGLA #### [place] [id number] Dining Room Cashier: Jone Eller MDThyroglobulin Abon 62-95-3855Cslbeqgjjtuio Ab Qn [IU]/mLNormal0.0-40.0K[facility] Greene MemorialComment on above:Result Comment: Reference Range: <40.0 Negative 40.0-60.0 Equivocal >60.0 Positive When results are Equivocal, it is recommended to retest after 8-12 weeks. Performed By: #### MYLENE APNAB1 #### [facility] [address] [place] [id number] Dining Room Cashier: Cody Dye MD #### IFX, FLLS, IMMS, CDP, THYGLA #### [place] [id number] Dining Room Cashier: Jone Eller [facility] with Auto Differentialon [id number] Eos #0.43[facility] HealthAbsolute Immature Granulocyte0.08Mer[facility] HealthAbsolute Lymph #2.41[facility] HealthAbsolute Hopkins #1.26[facility] HealthBasophils (Bld) [#/Vol]0.08 10*3/uLMercy HealthBasophils/100 WBC (Bld)1 %0 - 2 %[facility] CampusEosinophils/100 WBC (Bld)3 %1 - 4 %[facility] CampusHematocrit (Bld) [Volume fraction]40.7 %36.3 - 47.1 %[facility] CampusHemoglobin.gastrointestinal spec 1 Ql (Stl)13.5 g/dL11.9 - 15.1 g/dLWayne Healthcare Main CampusImmature granulocytes/100 WBC (Bld)1 %Vixn5DlcluWayne Healthcare Main Campus Interpretation and review of laboratory resultsAbnormDayton Osteopathic Hospital Lymphocytes/100 WBC (Bld)17 %Low25 - 45 %[facility] for RehabilitationH (RBC) [Entitic mass] 30.1 pg25.2 - 33.5 pgCleveland Clinic Children's Hospital for RehabilitationHC (RBC) [Mass/Vol]33.2 g/dL28.4 - 34.8 g/dL [facility] for RehabilitationV (RBC) [Entitic vol]90.8 fL82.6 - 102.9 fLWayne Healthcare Main Campus Monocytes/100 WBC (Bld)9 %High2 - 8 %[facility] CampusNRBC Automated0.00.0 per 100 WBCWayne Healthcare Main CampusPlatelet distribution width (Bld) [Ratio]12.7 %11.8 - 14.4 %[facility] CampusPlatelet mean volume (Bld) [Entitic vol]9.9 fL8.1 - 13.5 fLWayne Healthcare Main Campus Platelets (Bld) [#/Vol]277 10*3/[facility] HospitalRBC (Bld) [#/Vol]4.48 10*6/uL3.95 - 5.11 m/uLWayne Healthcare Main CampusSegmented neutrophils/100 WBC (Bld)69 %High34 - 64 %[facility] CampusSegs Lzgoigqs61.22HighWayne Healthcare Main CampusWBC (Bld) [#/Vol]14.5 10*3/uLFormerly named [facility] Oak[facility] Care CenterCBC with Diffon [id number]. Basophil0.08 k/uLNormal 0.00-0.20[facility] Greene MemorialComment on above:Performed By: #### AIGGSB, APNAB1 #### [employer] [address] [place] [address] Dining Room Cashier: Cody Dye MD #### IFX, FLLS, IMMS, CDP, THYGLA #### [facility] [address] [place] [address] Dining Room Cashier: Radha Zhao.Imm.Granulocyte0.08 k/uLNormal0.00-0.30[facility] Greene MemorialComment on above:Performed By: #### MYLENE APNAB1 #### [facility] [address] [place] [address] Dining Room Cashier: Cody Dye MD #### IFX, FLLS, IMMS, CDP, THYGLA #### [facility] [address] [place] [address] Dining Room Cashier: aRdha Zhao.Neutrophil (Seg)10.22 k/uLHigh1.80-8.00K[facility] Greene MemorialComment on above:Performed By: #### MYLENE APNAB1 #### [facility] [address] [place] [address] Dining Room Cashier: Cody Dye MD #### IFX, FLLS, IMMS, CDP, THYGLA #### [facility] [address] [place] [address] Dining Room Cashier: Jone Eller MDBasophils/100 WBC (Bld)1 %Normal0-2Mer[facility] Marshall Medical CenterComment on above:Performed By: #### MYLENE APNAB1 #### [facility] [address] [place] [address] Dining Room Cashier: Cody Dye MD #### IFX, FLLS, IMMS, CDP, THYGLA #### [facility] [address] [place] [address] Dining Room Cashier: Jone Eller MDEosinophils (Bld) [#/Vol]0.43 10*3/uLNormal 0.00-0.44[facility] MemorialComment on above:Performed By: #### MYLENE APNAB1 #### [facility] [address] [place] [address] Dining Room Cashier: Cody Dye MD #### IFX, FLLS, IMMS, CDP, THYGLA #### [facility] [address] [place] [address] [phone] Dining Room Cashier: Jone Eller MDEosinophils/100 WBC (Bld)3 %Normal1-4[facility] MemorialComment on above:Performed By: #### MYLENE APNAB1 #### [facility] [address] [place] [address] Dining Room Cashier: Cody Dye MD #### IFX, FLLS, IMMS, CDP, THYGLA #### [place] [id number] Dining Room Cashier: Jone Eller MDErythrocyte distribution width (RBC) [Ratio]12.7 %Uxttyh69.8-14.4[facility] Greene MemorialComment on above:Performed By: #### MYLENE APNAB1 #### [facility] [address] [place] [address] Dining Room Cashier: Cody Dye MD #### IFX, FLLS, IMMS, CDP, THYGLA #### [address] [phone] Dining Room Cashier: Jone Eller MDHematocrit (Bld) [Volume fraction]40.7 %Normal 36.3-47.1MKern ValleyComment on above:Performed By: #### MYLENE APNAB1 #### [facility] [address] [place] [address] Dining Room Cashier: Cody Dye MD #### IFX, FLLS, IMMS, CDP, THYGLA #### [facility] [address] [place] [address] Dining Room Cashier: Jone Eller MDHemoglobin (Bld) [Mass/Vol]13.5 g/dLNormal 11.9-15.1Mer[facility] Marshall Medical CenterComment on above:Performed By: #### MYLENE APNAB1 #### [facility] [address] [place] [address] Dining Room Cashier: Cody Dye MD #### IFX, FLLS, IMMS, CDP, THYGLA #### [facility] [address] [place] [address] Dining Room Cashier: Jone Eller MDImmature granulocytes/100 WBC (Bld)1 %Xpxc3NujhdKettering Health Greene MemorialComment on above:Performed By: #### MYLENE APNAB1 #### [facility] [address] [place] [address] Dining Room Cashier: Cody Dye MD #### IFX, FLLS, IMMS, CDP, THYGLA #### [address] [address] Dining Room Cashier: Jone Eller MDLymphocytes (Bld) [#/Vol]2.41 10*3/uLNormal 1.20-5.20[facility] MemorialComment on above:Performed By: #### MYLENE, APNAB1 #### [facility] [address] [place] [address] Dining Room Cashier: Cody Dye MD #### IFX, FLLS, IMMS, CDP, THYGLA #### [facility] [address] [place] [address] [phone] Dining Room Cashier: Darius Zhaomphocytes/100 WBC (Bld)17 %Kvn91-30SbvfmKettering Health Greene MemorialComment on above:Performed By: #### MYLENE, APNAB1 #### [facility] [address] [place] [address] Dining Room Cashier: Cody Dye MD #### IFX, FLLS, IMMS, CDP, THYGLA #### [address] [address] Dining Room Cashier: SMILEY ZhaoCH (RBC) [Entitic mass]30.1 lqOmfhvc27.2-33.5 [facility] MemorialComment on above:Performed By: #### MYLENE APNAB1 #### [facility] [address] [place] [address] Dining Room Cashier: Cody Dye MD #### IFX, FLLS, IMMS, CDP, THYGLA #### [address] [address] Dining Room Cashier: FRANCISCO ZhaoC (RBC) [Mass/Vol]33.2 g/hFFbcgcc34.4-34.8 [facility] MemorialComment on above:Performed By: #### MYLENE APNAB1 #### [facility] [address] [place] [address] Dining Room Cashier: Cody Dye MD #### IFX, FLLS, IMMS, CDP, THYGLA #### [address] [address] Dining Room Cashier: SMILEY ZhaoCV (RBC) [Entitic vol]90.8 qKNqnqto35.6-102.9 [facility] MemorialComment on above:Performed By: #### MYLENE, APNAB1 #### [facility] [address] [place] [address] Dining Room Cashier: Cody Dye MD #### IFX, FLLS, IMMS, CDP, THYGLA #### [facility] [address] [place] [address] Dining Room Cashier: Jone Eller MDMonocytes (Bld) [#/Vol]1.26 10*3/uLNormal 0.10-1.40[facility] MemorialComment on above:Performed By: #### MYLENE, APNAB1 #### [facility] [address] [place] [address] Dining Room Cashier: Cody Dye MD #### IFX, FLLS, IMMS, CDP, THYGLA #### [facility] [address] [place] [address] Dining Room Cashier: Jone Eller MDMonocytes/100 WBC (Bld)9 %High2-8[facility] MemorialComment on above:Performed By: #### MYLENE APNAB1 #### [facility] [address] [place] [address] Dining Room Cashier: Cody Dye MD #### IFX, FLLS, IMMS, CDP, THYGLA #### [facility] [address] [place] [address] Dining Room Cashier: Jone Eller MDNeutrophil (Seg)69 %Ygzz27-76DpibxKettering Health Greene MemorialComment on above:Performed By: #### MYLENE, APNAB1 #### [facility] [address] [place] [address] Dining Room Cashier: Cody Dye MD #### IFX, FLLS, IMMS, CDP, THYGLA #### [facility] [address] [place] [address] [phone] Dining Room Cashier: Jone Eller MDNRBC Automated0.0 per 100 WBCNormal0.0[facility] MemorialComment on above:Performed By: #### MYLENE, APNAB1 #### [facility] [address] [place] [address] Dining Room Cashier: Cody Dye MD #### IFX, FLLS, IMMS, CDP, THYGLA #### [facility] [address] [place] [address] Dining Room Cashier: Uli Zhao mean volume (Bld) [Entitic vol]9.9 fL Normal8.1-13.5[facility] MemorialComment on above:Performed By: #### AIGGSB, APNAB1 #### [facility] [address] [place] [address] Dining Room Cashier: Cody Dye MD #### IFX, FLLS, IMMS, CDP, THYGLA #### [facility] [address] [place] [address] Dining Room Cashier: Rut Zhao (Bld) [#/Vol]277 10*3/vEBhrzhk706-522 [facility] MemorialComment on above:Performed By: #### MYLENE APNAB1 #### [facility] [address] [place] [address] Dining Room Cashier: Cody Dye MD #### IFX, FLLS, IMMS, CDP, THYGLA #### [facility] [address] [place] [address] Dining Room Cashier: ELAINE Zhao (Bld) [#/Vol]4.48 10*6/uLNormal3.95-5.11 [facility] MemorialComment on above:Performed By: #### AIGGSB, APNAB1 #### [facility] [address] [place] [address] Dining Room Cashier: Cody Dye MD #### IFX, FLLS, IMMS, CDP, THYGLA #### [facility] [address] [place] [address] Dining Room Cashier: Jone Eller MDWBC (Bld) [#/Vol]14.5 10*3/uLHigh4.5-13.5[facility] MemorialComment on above:Performed By: #### MYLENE, APNAB1 #### [facility] [address] [place] [address] Dining Room Cashier: Cody Dye MD #### IFX, FLLS, IMMS, CDP, THYGLA #### [facility] [address] [place] [address] Dining Room Cashier: Jone Eller MDImmunoglobulin Panel (IgG, IgA, IgM)on 73-29-0824GqE [Mass/Vol]201 mg/dL70 - 400 mg/dLProtestant Hospital HealthIgG [Mass/Vol]545 mg/fMOdr575 - 1600 mg/dLProtestant Hospital HealthIgM [Mass/Vol]70 mg/dL40 - 230 mg/dLProtestant Hospital HealthInterpretation and review of laboratory resultsAbnormalCincinnati Shriners Hospital HealthImmunoglobulinson 47-25-9334CxO [Mass/Vol]201 mg/xQWvtehd56-789McxgcKettering Health Greene MemorialComment on above:Performed By: #### MYLENE, APNAB1 #### [facility] [address] [place] [address] Dining Room Cashier: Cody Dye MD #### IFX, FLLS, IMMS, CDP, THYGLA #### [facility] [address] [place] [address] [phone] Dining Room Cashier: Jone Eller MDIgG [Mass/Vol]545 mg/rLSih079-1645DotwyKettering Health Greene MemorialComment on above:Performed By: #### MYLENE, APNAB1 #### [facility] [address] [place] [address] Dining Room Cashier: Cody Dye MD #### IFX, FLLS, IMMS, CDP, THYGLA #### [facility] [address] [place], [place] [phone] Dining Room Cashier: Jone Eller MDIgM [Mass/Vol]70 mg/pYGizbwh64-202KztfqWest Los Angeles VA Medical CenterComment on above:Performed By: #### AIGGSB, APNAB1 #### [facility] [address] [place] [address] Dining Room Cashier: Cody Dye MD #### IFX, FLLS, IMMS, CDP, THYGLA #### [facility] [address] [place], [place] [phone] Dining Room Cashier: LISA ZhaoBC AUTO DIFFon [id number] #0.1 103/ulNormal 0.0-0.1The Summa HealthComment on above:Performed By: #### TRANSFR #### [facility] [address] [place] [address] Dr. Orlando SaldivarBasophils/100 WBC (Bld)0.5 %Normal0.2-2.0[facility] Comment on above:Performed By: #### TRANSFR #### [facility] [address] [place] [address] Dr. Orlando Archer #0.4 103/ulNormal0.0-0.7The [facility] HealthComment on above: Performed By: #### TRANSFR #### [facility] [address] [place] [address] Dr. Orlando Langstonosinophils/100 WBC (Bld)2.4 %Normal0.9-7.0[facility] Comment on above:Performed By: #### TRANSFR #### [facility] [address] [place] [address] Dr. Orlando Langstonrythrocyte distribution width (RBC) [Ratio]12.8 %Yzzchg55.0-15.0 [facility] HospitalComment on above:Performed By: #### TRANSFR #### [facility] [address] [place] [address] Dr. Orlando SaldivarHematocrit (Bld) [Volume fraction]38.1 %Ptesgw91.0-48.0The [facility] HealthComment on above:Performed By: #### TRANSFR #### [facility] [address] [address] [address] Orlando SaldivarHemoglobin (Bld) [Mass/Vol]12.7 g/bPTuegxo32.0-16.0The [facility] HealthComment on above:Performed By: #### TRANSFR #### [facility] [address] [address] [address] Orlando SladivarIG #0.05 10e3/ulCritically high0.00-0.03The [facility] Comment on above:Performed By: #### TRANSFR #### [facility] [address] [place] [address] Dr. Orlando SaldivarIG %0.3 %Normal0.0-0.5The [facility] HealthComment on above: Performed By: #### TRANSFR #### [facility] [address] [place] [address] Dr. Orlando Brunson #2.5 103/ulNormal1.2-3.8The [facility] HealthComment on above:Performed By: #### TRANSFR #### [facility] [address] [place] [address] Dr. Orlando Colemanmphocytes/100 WBC (Bld)16.1 %Critically low20.5-60.0The [facility] HealthComment on above:Performed By: #### TRANSFR #### [facility] [address] [place] [address] Dr. Orlando SaldivarMANUAL DIFF REQNONormalThe [facility] HealthComment on above: Performed By: #### TRANSFR #### [facility] [address] [place] [address] Dr. Orlando Cuellar (RBC) [Entitic mass]30.0 zvHmslln95.7-34.0The [facility] HealthComment on above:Performed By: #### TRANSFR #### [facility] [address] [place] [address] Dr. Orlando GarciaHC (RBC) [Mass/Vol]33.3 g/xUSokcmh87.9-35.2The [facility] HealthComment on above:Performed By: #### TRANSFR #### [facility] [address] [place] [address] Dr. Orlando GarciaV (RBC) [Entitic vol]90.1 yPYmaugr67.0-99.0The [facility] HealthComment on above:Performed By: #### TRANSFR #### [facility] [address] [place] [address] Dr. Orlando Rowe #1.0 103/ulCritically high0.3-0.8The [facility] Comment on above:Performed By: #### TRANSFR #### [facility] [address] [place] [address] Dr. Orlando Guyocytes/100 WBC (Bld)6.6 %Normal1.7-12.0[facility] Comment on above:Performed By: #### TRANSFR #### [facility] [address] [place] [address] Dr. Orlando Weiss #11.3 103/ulCritically high1.4-6.5Th[facility] Comment on above:Performed By: #### TRANSFR #### [facility] [address] [place] [address] Dr. Orlando Landinutrophils/100 WBC (Bld)74.1 %Ijghlk10.0-75.0The [facility] HealthComment on above:Performed By: #### TRANSFR #### [facility] [address] [place] [address] Dr. Orlando Degrootlet mean volume (Bld) [Entitic vol]9.3 fLCritically low 9.5-13.5ThMercy Health Defiance HospitalComment on above:Performed By: #### TRANSFR #### [facility] [address] [place] [address] Dr. Orlando SaldivarPLT256 103/uvLctjet147-962Tvh [facility] HealthComment on above: Performed By: #### TRANSFR #### [facility] [address] [place] [address] Dr. Orlando SaldivarRBC4.23 106/ulNormal4.20-5.40The [facility] HealthComment on above:Performed By: #### TRANSFR #### [facility] [address] [place] [address] Dr. Orlando SaldivarWBC15.2 103/ulCritically high4.0-11.0The [facility] HealthComment on above:Performed By: #### TRANSFR #### [facility] [address] [place] [address] Dr. Orlando Maddox 52-11-5319XHV [Mass/Vol]mg/LNormal<=1.0The [facility] HealthComment on above:Performed By: #### CMP, CRP #### [facility] [address] [place] [address] Dr. Orlando SaldivarPROF 14(COMP METB)on 61-36-9377Pisyucw [Mass/Vol]3.8 g/dLNormal 3.5-5.0The [facility] HealthComment on above:Performed By: #### CMP, CRP #### [facility] [address] [place] [address] Dr. Orlando SaldivarAlbumin/Globulin [Mass ratio]1.2 {ratio}NormalThe [facility] HealthComment on above:Performed By: #### CMP, CRP #### [facility] [address] [place] [address] Dr. Orlando Melgar [Catalytic activity/Vol]65 U/MMwyedb54-358Spv [facility] HealthComment on above:Performed By: #### CMP, CRP #### [facility] [address] [place] [address] Dr. Orlando Avila [Catalytic activity/Vol]11 U/LNormal9-52The [facility] Comment on above:Performed By: #### CMP, CRP #### [facility] [address] [place] [address] Dr. Orlando Williamson gap [Moles/Vol]12.9 mmol/LNormalOhio[facility] Comment on above:Performed By: #### CMP, CRP #### [facility] [address] [address] [address] Orlando SaldivarAST [Catalytic activity/Vol]10 U/LCritically sho66-46Pdf [facility] HealthComment on above:Performed By: #### CMP, CRP #### [facility] [address] [address] [address] Orlando SaldivarBilirubin [Mass/Vol]0.6 mg/dLNormal0.2-1.3TOhio[facility] Comment on above:Performed By: #### CMP, CRP #### [facility] [address] [place] [address] Dr. Orlando SaldivarCalcium [Mass/Vol]9.0 mg/dLNormal8.4-10.2[facility] Comment on above:Performed By: #### CMP, CRP #### [facility] [address] [place] [address] Dr. Orlando SaldivarChloride [Moles/Vol]102 mmol/KBdtgqr98-787RxyOhio[facility] Comment on above:Performed By: #### CMP, CRP #### [facility] [address] [place] [address] Dr. Orlando SaldivarCO2 [Moles/Vol]28.9 mmol/FDchuyy25.0-30.0[facility] Comment on above:Performed By: #### CMP, CRP #### [facility] [address] [place] [address] Dr. Orlando SaldivarCreatinine [Mass/Vol]0.80 mg/dLNormal0.52-1.04The [facility] HealthComment on above:Performed By: #### CMP, CRP #### [facility] [address] [place] [address] Dr. Orlando LangstonGFR-AF SAO TOMEAN>60Normal>=60The [facility] HealthComment on above:Performed By: #### CMP, CRP #### [facility] [address] [place] [address] Dr. Orlando LangstonGFR-NON AF SAO TOMEAN>60Normal>=60The [facility] HealthComment on above:Performed By: #### CMP, CRP #### [facility] [address] [place] [address] Dr. Orlando SaldivarGlobulin (S) [Mass/Vol]3.1 g/dLNormalThMercy Health Defiance HospitalComment on above:Performed By: #### CMP, CRP #### [facility] [address] [place] [address] Dr. Orlando SaldivarGlucose [Mass/Vol]90 mg/cOXcolni38-564Upn [facility] Comment on above:Performed By: #### CMP, CRP #### [facility] [address] [place] [address] Dr. Orlando SaldivarPotassium [Moles/Vol]3.8 mmol/LNormal3.4-5.0[facility] Comment on above:Performed By: #### CMP, CRP #### [facility] [address] [place] [address] Dr. Orlando SaldivarProtein [Mass/Vol]6.9 g/dLNormal6.1-8.2[facility] Comment on above:Performed By: #### CMP, CRP #### [facility] [address] [place] [address] Dr. Orlando SaldivarSodium [Moles/Vol]140 mmol/UUgeelu414-707RbwOhiohealth [facility] Comment on above:Performed By: #### CMP, CRP #### [facility] [address] [place] [address] Dr. Orlando SaldivarUrea nitrogen [Mass/Vol]13.0 mg/dLNormal6.4-19.3TOhioHealth Riverside Methodist HospitalComment on above:Performed By: #### CMP, CRP #### [facility] [address] [place] [address] Dr. Orlando Goetz nitrogen/Creatinine [Mass ratio]16.2 mg/mgNormalThMercy Health Defiance HospitalComment on above:Performed By: #### CMP, CRP #### [facility] [address] [place] [address] Dr. Orlando Kincaid RATE WESTERGRENon 17-78-2905XUW RATE11 mm/hrNormal<=20The [facility] HealthComment on above:Performed By: #### SEDR #### [facility] [address] [address] [address] Orlando SaldivarComplete Blood Count with Auto Diffon 45-92-5875Xuqwxprev (Bld) [#/Vol]0.05 10*3/uLNormal0.00-0.20NoKettering Health SpecialistComment on above:Performed By: #### CBCAD #### [facility] [address], [place] [id number]/100 WBC (Bld)0.4 %NormalOhiohealth SpecialistComment on above:Performed By: #### CBCAD #### [facility] [address], [place] [id number] (Bld) [#/Vol]0.43 10*3/uLNormal0.02-0.50NoKettering Health SpecialistComment on above:Performed By: #### CBCAD #### [facility] [address], [place] [id number]/100 WBC (Bld)3.0 %NormalOhiohealth SpecialistComment on above:Performed By: #### CBCAD #### [facility] [address], [place] [id number] distribution width (RBC) [Ratio]12.4 %Normal 11.0-15.0[facility] SpecialistComment on above:Performed By: #### CBCAD #### [facility] [address], [place] [id number] (Bld) [Volume fraction]38.3 %Swurjx57.0-47.0 [facility] SpecialistComment on above:Performed By: #### CBCAD #### [facility] [address], [place] [id number] (Bld) [Mass/Vol]12.7 g/aVDqqame73.6-15.5NoKettering Health SpecialistComment on above:Performed By: #### CBCAD #### [facility] [address], [place] [id number] (Bld) [#/Vol]1.8 10*3/uLNormal0.9-3.9NoKettering Health SpecialistComment on above:Performed By: #### CBCAD #### [facility] [address], [place] [id number]/100 WBC (Bld)12.8 %NormalNoKettering Health SpecialistComment on above:Performed By: #### CBCAD #### [facility] [address], [place] [id number] (RBC) [Entitic mass]30.0 rwBpcqid98.0-33.0NoKettering Health SpecialistComment on above:Performed By: #### CBCAD #### [facility] [address], [place] [id number] (RBC) [Mass/Vol]33.2 g/fVVwbygo57.0-36.0NortWexner Medical Center SpecialistComment on above:Performed By: #### CBCAD #### [facility] [address], [place] [id number] (RBC) [Entitic vol]90 zYDwtzkl30-375Yptmhabo [facility] SpecialistComment on above:Performed By: #### CBCAD #### [facility] [address], [place] [id number] (Bld) [#/Vol]1.0 10*3/uLHigh0.2-0.9NoKettering Health SpecialistComment on above:Performed By: #### CBCAD #### [facility] [address], [place] [id number]/100 WBC (Bld)7.4 %NormalNoKettering Health SpecialistComment on above:Performed By: #### CBCAD #### [facility] [address], [place] [id number] (Bld) [#/Vol]10.7 10*3/uLHigh1.5-7.8NoKettering Health SpecialistComment on above:Performed By: #### CBCAD #### [facility] [address], [place] [id number]/100 WBC (Bld)75.9 %NormalNoKettering Health SpecialistComment on above:Performed By: #### CBCAD #### [facility] [address], [place] [id number] mean volume (Bld) [Entitic vol]10.00 fLNormal 7.50-12.50NoKettering Health SpecialistComment on above:Performed By: #### CBCAD #### [facility] [address], [place] [id number] (Bld) [#/Vol]293 10*3/vGStorrz456-070Jigyzqac [facility] SpecialistComment on above:Performed By: #### CBCAD #### [facility] [address], [place] [id number] (Bld) [#/Vol]4.24 10*6/uLNormal3.90-5.20NoKettering Health SpecialistComment on above:Performed By: #### CBCAD #### [facility] [address], [place] [id number]-BH09.5 rZTymurq20.0-50.0NoKettering Health Specialist Comment on above:Performed By: #### CBCAD #### [facility] [address], [place] [id number] (Bld) [#/Vol]14.1 10*3/uLHigh3.8-11.0[facility] SpecialistComment on above:Performed By: #### CBCAD #### [facility] [address], [place] [id number] SERUM OR PLASMAon 11-89-4827Hpjl, Plasma or Serum74 ug/qGRnktrw41-402WlxOhiohealth Dublin Methodist HospitalComment on above:Result Comment: Detection Limit = 5Performed By: #### Zinc #### [facility] [address] [place] [address] Dr. Orlando SaldivarTRANSFERRINon 62-52-1366Rvhysvpyjjf [Mass/Vol]194 mg/dLNormal 192-364[facility] HospitalComment on above:Performed By: #### TRANSFR #### [facility] [address] [place] [address] Dr. Orlando SaldivarCBC AUTO DIFFon 27-11-9483GTGO #0.1 103/ulNormal0.0-0.1The [facility] HealthComment on above:Performed By: #### CBC #### [facility] [address] [place] [address] Dr. Orlando SaldivarBasophils/100 WBC (Bld)0.4 %Normal0.2-2.0[facility] Comment on above:Performed By: #### CBC #### [facility] [address] [place] [address] Dr. Orlando Archer #0.2 103/ulNormal0.0-0.7The [facility] HealthComment on above: Performed By: #### CBC #### [facility] [address] [place] [address] Dr. Orlando Langstonosinophils/100 WBC (Bld)1.6 %Normal0.9-7.0[facility] Comment on above:Performed By: #### CBC #### [facility] [address] [place] [address] Dr. Orlando Langstonrythrocyte distribution width (RBC) [Ratio]13.1 %Dmohih59.0-15.0 The [facility] HealthComment on above:Performed By: #### CBC #### [facility] [address] [place] [address] Dr. Orlando SaldivarHematocrit (Bld) [Volume fraction]40.1 %Qcioch73.0-48.0[facility] HospitalComment on above:Performed By: #### CBC #### [facility] [address] [place] [address] Dr. Orlando SaldivarHemoglobin (Bld) [Mass/Vol]13.3 g/cKUgtmah15.0-16.0The [facility] HealthComment on above:Performed By: #### CBC #### [facility] [address] [place] [address] Dr. Orlando Winston #0.06 10e3/ulCritically high0.00-0.03The [facility] Comment on above:Performed By: #### CBC #### [facility] [address] [place] [address] Dr. Orlando Winston %0.5 %Normal0.0-0.5The [facility] HealthComment on above: Performed By: #### CBC #### [facility] [address] [place] [address] Dr. Orlando Brunson #1.8 103/ulNormal1.2-3.8The [facility] HealthComment on above:Performed By: #### CBC #### [facility] [address] [place] [address] Dr. Orlando Obrienhocytes/100 WBC (Bld)15.0 %Critically low20.5-60.0The [facility] HealthComment on above:Performed By: #### CBC #### [facility] [address] [place] [address] Dr. Orlando ReinosoUAL DIFF REQNONormalThe [facility] HealthComment on above: Performed By: #### CBC #### [facility] [address] [place] [address] Dr. Orlando Garcia (RBC) [Entitic mass]29.8 rbEwoafr35.7-34.0The [facility] HealthComment on above:Performed By: #### CBC #### [facility] [address] [place] [address] Dr. Orlando Garcia (RBC) [Mass/Vol]33.2 g/eDFjache43.9-35.2The [facility] HealthComment on above:Performed By: #### CBC #### [facility] [address] [place] [address] Dr. Orlando Turner (RBC) [Entitic vol]89.7 sFChchbt18.0-99.0The [facility] HealthComment on above:Performed By: #### CBC #### [facility] [address] [address] [address] Orlando Rowe #0.7 103/ulNormal0.3-0.8The [facility] HealthComment on above:Performed By: #### CBC #### [facility] [address] [address] [address] Orlando Guyocytes/100 WBC (Bld)6.0 %Normal1.7-12.0The [facility] Comment on above:Performed By: #### CBC #### [facility] [address] [place] [address] Dr. Orlando Weiss #9.4 103/ulCritically high1.4-6.5The [facility] Comment on above:Performed By: #### CBC #### [facility] [address] [place] [address] Dr. Orlando Landinutrophils/100 WBC (Bld)76.5 %Critically high43.0-75.0The [facility] HealthComment on above:Performed By: #### CBC #### [facility] [address] [place] [address] Dr. Orlando Degrootlet mean volume (Bld) [Entitic vol]9.7 fLNormal9.5-13.5The [facility] HealthComment on above:Performed By: #### CBC #### [facility] [address] [place] [address] Dr. Orlando SaldivarPLT211 103/crDxfjyk111-723Wiq [facility] HealthComment on above: Performed By: #### CBC #### [facility] [address] [place] [address] Dr. Orlando SaldivarRBC4.47 106/ulNormal4.20-5.40The [facility] HealthComment on above:Performed By: #### CBC #### [facility] [address] [place] [address] Dr. Orlando SaldivarWBC12.3 103/ulCritically high4.0-11.0The [facility] HealthComment on above:Performed By: #### CBC #### [facility] [address] [place] [address] Dr. Orlando Mdadox 75-01-1535RRE [Mass/Vol]mg/LNormal<=1.0The [facility] HealthComment on above:Performed By: #### CMP, CRP #### [facility] [address] [place] [address] Dr. Orlando SaldivarFERRITINon 72-39-4467Histhxlj [Mass/Vol]118.0 ng/mLNormal 6.2-137.0The [facility] HealthComment on above:Performed By: #### TRANSFR #### [facility] [address] [place] [address] Dr. Orlando Phipps AND TIBCon 04-30-2021% ETXWIMGZXB18.3 %NormalThe [facility] HealthComment on above:Performed By: #### FERR, FETIBC, VITB12 #### [facility] [address] [place] [address] Dr. Orlando Phipps [Mass/Vol]59.0 ug/iWEuuvkk00.0-170.0The [facility] Comment on above:Performed By: #### FERR, FETIBC, VITB12 #### [facility] [address] [place] [address] Dr. Orlando Jones FINUQV931.0 ug/dLCritically zln660.0-497.0The [facility] HealthComment on above:Performed By: #### FERR, FETIBC, VITB12 #### [facility] [address] [place] [address] Dr. Orlando Hill 14(COMP METB)on 70-09-6819Pwldoti [Mass/Vol]3.7 g/dLNormal 3.5-5.0The [facility] HealthComment on above:Performed By: #### CMP, CRP #### [facility] [address] [address] [address] Orlando SaldivarAlbumin/Globulin [Mass ratio]1.3 {ratio}NormalOhiohealth Dublin Methodist HospitalComment on above:Performed By: #### CMP, CRP #### [facility] [address] [address] [address] Orlando RamirezP [Catalytic activity/Vol]66 U/YDpryxu89-210Kcf [facility] HealthComment on above:Performed By: #### CMP, CRP #### [facility] [address] [address] [address] Orlando RamirezT [Catalytic activity/Vol]9 U/LNormal9-52[facility] Comment on above:Performed By: #### CMP, CRP #### [facility] [address] [place] [address] Dr. Orlando Pearlon gap [Moles/Vol]12.4 mmol/LNormalOhiohealth [facility] Comment on above:Performed By: #### CMP, CRP #### [facility] [address] [address] [address] Orlando SaldivarAST [Catalytic activity/Vol]10 U/LCritically suc41-01Sbo [facility] HealthComment on above:Performed By: #### CMP, CRP #### [facility] [address] [place] [address] Dr. Orlando SaldivarBilirubin [Mass/Vol]0.4 mg/dLNormal0.2-1.3TOhioHealth [facility] Comment on above:Performed By: #### CMP, CRP #### [facility] [address] [place] [address] Dr. Orlando SaldivarCalcium [Mass/Vol]9.0 mg/dLNormal8.4-10.2[facility] Comment on above:Performed By: #### CMP, CRP #### [facility] [address] [place] [address] Dr. Orlando SaldivarChloride [Moles/Vol]103 mmol/JNhzxqm33-161OqyOhiohealth [facility] Hospital Comment on above:Performed By: #### CMP, CRP #### [facility] [address] [place] [address] Dr. Orlando SaldivarCO2 [Moles/Vol]26.0 mmol/CCeyhvi64.0-30.0The [facility] Comment on above:Performed By: #### CMP, CRP #### [facility] [address] [address] [address] Orlando SaldivarCreatinine [Mass/Vol]0.92 mg/dLNormal0.52-1.04The [facility] HealthComment on above:Performed By: #### CMP, CRP #### [facility] [address] [address] [address] Orlando LangstonGFR-AF SAO TOMEAN>60Normal>=60The [facility] HealthComment on above:Performed By: #### CMP, CRP #### [facility] [address] [address] [address] Orlando LangstonGFR-NON AF SAO TOMEAN>60Normal>=60The [facility] HealthComment on above:Performed By: #### CMP, CRP #### [facility] [address] [address] [address] Orlando SaldivarGlobulin (S) [Mass/Vol]2.9 g/dLNormalThe [facility] HealthComment on above:Performed By: #### CMP, CRP #### [facility] [address] [address] [address] Orlando SaldivarGlucose [Mass/Vol]119 mg/dLCritically owtu42-208Qxb [facility] HealthComment on above:Performed By: #### CMP, CRP #### [facility] [address] [address] [address] Orlando SaldivarPotassium [Moles/Vol]3.4 mmol/LNormal3.4-5.0The [facility] Comment on above:Performed By: #### CMP, CRP #### [facility] [address] [address] [address] Orlando SaldivarProtein [Mass/Vol]6.6 g/dLNormal6.1-8.2The [facility] Comment on above:Performed By: #### CMP, CRP #### [facility] [address] [address] [address] Orlando SaldivarSodium [Moles/Vol]138 mmol/CHgdmym468-299Lqs [facility] Comment on above:Performed By: #### CMP, CRP #### [facility] [address] [address] [address] Orlando SaldivarUrea nitrogen [Mass/Vol]8.0 mg/dLNormal6.4-19.3The [facility] HealthComment on above:Performed By: #### CMP, CRP #### [facility] [address] [address] [address] Orlando SaldivarUrea nitrogen/Creatinine [Mass ratio]8.7 mg/mgNormalThe [facility] HealthComment on above:Performed By: #### CMP, CRP #### [facility] [address] [place] [address] Dr. Orlando Kincaid RATE WESTERGRENon 46-51-9356CVI RATE7 mm/hrNormal<=20The [facility] HealthComment on above:Performed By: #### SEDR #### [facility] [address] [address] [address] Orlando SaldivarVITAMIN B12on 08-72-8039Vsnontkwu (Vitamin B12) [Mass/Vol]812.0 pg/kATadwjo850.0-931.0The [facility] HealthComment on above:Performed By: #### TRANSFR #### [facility] [address] [address] [address] Orlando SaldivarLab Reportson 60-47-7391Nrl Reports [id number]#1.00CD:[address] [place], [place] [address]Consultation Noteon 47-61-5002Jqohpslzpfcr Note [id number]#1.00CD:[address] [place], [place] [address]Aut for Release of Medical Recordson 50-63-2988Qfsj for Release of Medical [id number]#1.00CD:[address] [place], [place] [address]Consultation Noteon 18-11-5701Vsqekqnkcssn Note [id number]#1.00CD:[address] [place], [place] [address]Consultation Noteon 09-25-4273Ssiizsvdctpa Note [id number]#1.00CD:[address] [place] [address] Vital Signs Date TimeVital SignValuePerforming DbsmmavyoJqlhxdzk24-56-2441 10:48-0500Body cmSdustygeorge Mar NEWS WRITER[employer]YARN WORKER Work Phone: [phone] [place], [place] [address]Comment on above:w/o shoes 02-20-2025 10:48-0500Body mass index (BMI) [Ratio]25.63 kg/v3Jsakfsywcangelito Mar NEWS WRITER-YARN WORKER Work Phone: [phone] [place], [place] 1912411-10-2025 10:48-0500Body uahfnqhvoep05.2 [degF]Yvette Mar NEWS WRITER-YARN WORKER Work Phone: [phone] [place], [place] 1912411-10-2025 10:48-0500Body hfivfi16.27 kgSterlingustavohuang Zaid NEWS WRITER-YARN WORKER Work Phone: [phone] [place], [place] [address]Comment on above:w/o shoes 02-20-2025 10:48-0500Diastolic blood ohuanalv65 mm[Hg]Yvette Mar NEWS WRITER-YARN WORKER Work Phone: [phone] [place], [place] 1912411-10-2025 10:48-0500Heart rate67 /minSdominik Mar NEWS WRITER-YARN WORKER Work Phone: [phone] [place], [place] 1912411-10-2025 10:48-0500 Respiratory rate17 /Andrea Mar NEWS WRITER-YARN WORKER Work Phone: [phone])[address] [place], [place] 1912411-10-2025 10:48-0057XdI6% (BldA) [Mass fraction]100 %Yvette Mar NEWS WRITER-YARN WORKER Work Phone: [phone] [place], [place] [address]Comment on above:room air 02-20-2025 10:48-0500Systolic blood pyyvtvbb018 mm[Hg]Yvette Mar NEWS WRITER[employer]YARN WORKER Work Phone: [phone] [place], [place] 1912410-17-2025 09:20-0400Body dmigvo463 cmChey Aragon MD Work Phone: [phone] [address] [place], [place] 0447410-17-2025 09:20-0400Body mass index (BMI) [Ratio]26.04 kg/p7SwybzjsbChey Aragon MD Work Phone: 1(614)[address] [place], [place] 0447410-17-2025 09:20-0400Body vlwavx74.68 kgChey Aragon MD Work Phone: 1(572)[address] [place], [place] 0447410-17-2025 09:20-0400Diastolic blood dxczhlni61 mm[Hg]Chey Aragon MD Work Phone: 1(358)[address] [place], [place] 0447410-17-2025 09:20-0400Heart rate98 /min Chey Aragon MD Work Phone: 1(391)[address] [place], [place] 0447410-17-2025 09:20-8794QqG7% (BldA) [Mass fraction]97 %Chey Aragon MD Work Phone: 1(708)[address] [place], [place] 0447410-17-2025 09:20-0400Systolic blood xsceuuxm187 mm[Hg]Chey Aragon MD Work Phone: 1(002)[address] [place] [address]-09-2025 11:03-0400Body temperature 98.01 [degF]Clifford Rodas MD Work Phone: 1(854)[address] [place], [place] 1912410-09-2025 11:03-0400 Diastolic blood mm[Hg]Clifford Rodas MD Work Phone: 1(425)[address] [place], [place] 1912410-09-2025 11:03-0400Heart rate62 /minClifford Rodas MD Work Phone: 1(495)[address] [place], [place] 1912410-09-2025 11:03-0400 Respiratory rate16 /minClifford Rodas MD Work Phone: 1(783)[address] [place], [place] 1912410-09-2025 11:03-2040KnI7% (BldA) [Mass fraction]100 %Clifford Rodas MD Work Phone: 1(728)[address] [place], [place] 1912410-09-2025 11:03-0400Systolic blood ymfviukv395 mm[Hg]Clifford Rodas MD Work Phone: 1(611)[address] [place], [place] 1912410-07-2025 10:32-0400Body jikjkp515 cmClifford Rodas MD Work Phone: 1(411)[address] [place], [place] 1912410-07-2025 10:32-0400Body mass index (BMI) [Ratio]26.55 kg/i2FsjsgexClifford Rodas MD Work Phone: 1(011)[address] [place], [place] 1912410-07-2025 10:32-0400Body .99 kgClifford Rodas MD Work Phone: 1(748)[address] [place], [place] 1912409-15-2025 11:04-0400Body yxunwy382 cmClifford Rodas MD Work Phone: 1(647)[address] [place], [place] [address]Comment on above:w/o shoes 12-26-2024 11:04-0400Body mass index (BMI) [Ratio]26.96 kg/n8GtlqvkrClifford Rodas MD Work Phone: 1(620)[address] [place], [place] 1912409-15-2025 11:04-0400Body vofypngszge36.2 [degF]Clifford Rodas MD Work Phone: 1(307)[address] [place], [place] 1912409-15-2025 11:04-0400Body kuvezy73.04 kgClifford Rodas MD Work Phone: 1(947)[address] [place], [place] [address]Comment on above:w/o shoes 12-26-2024 11:04-0400Diastolic blood mwzyczbk18 mm[Hg]Clifford Rodas MD Work Phone: 1(361)[address] [place], [place] 1912409-15-2025 11:04-0400Heart rate67 /Reagan Rodas MD Work Phone: 1(311)[address] [place], [place] 1912409-15-2025 11:04-0400 Respiratory rate16 /Reagan Rodas MD Work Phone: 1(985)[address] [place], [place] 1912409-15-2025 11:04-1818SrC4% (BldA) [Mass fraction]98 %Clifford Rodas MD Work Phone: 1(039)[address] [place], [place] [address]Comment on above:room air 12-26-2024 11:04-0400Systolic blood yprjbjpy174 mm[Hg]Clifford Rodas MD Work Phone: 1(349)[address] [place], [place] 1912407-23-2025 18:42-0400 Diastolic blood fkrxutmk39 mm[Hg]Clifford Rodas MD Work Phone: 1(505)[address] [place], [place] 1912407-23-2025 18:42-0400Heart rate66 /Reagan Rodas MD Work Phone: 1(747)[address] [place], [place] 1912407-23-2025 18:42-0400 Respiratory rate16 /Reagan Rodas MD Work Phone: 1(272)[address] [place], [place] 1912407-23-2025 18:42-3226QvC9% (BldA) [Mass fraction]99 %Clifford Rodas MD Work Phone: 1(153)[address] [place], [place] 1912407-23-2025 18:42-0400Systolic blood wvawpbzx175 mm[Hg]Clifford Rodas MD Work Phone: 1(850)[address] [place], [place] 1912407-23-2025 18:15-0400Body tsfkzwbkosg73.59 [degF]Clifford Rodas MD Work Phone: 1(460)[address] [place], [place] 1912407-23-2025 14:41-0400Body mnwomm492 cmClifford Rodas MD Work Phone: 1(246)[address] [place], [place] 1912407-23-2025 14:41-0400Body mass index (BMI) [Ratio]27.62 kg/e3SulaxsxClifford Rodas MD Work Phone: 1(999)[address] [place], [place] 1912407-23-2025 14:41-0400Body xwpdug52.72 kgClifford Rodas MD Work Phone: 1(037)[address] [place], [place] 1912407-07-2025 10:30-0400Body ikupoo560 cmMattfroy Rodas MD Work Phone: 1(495)[address] [place], [place] [address]Comment on above:w/o shoes 10-17-2024 10:30-0400Body mass index (BMI) [Ratio]28.63 kg/f9DcycrmeClifford Rodas MD Work Phone: 1(793)[address] [place], [place] 1912407-07-2025 10:30-0400Body wzekcnjevsh04.29 [degF]Clifford Rodas MD Work Phone: 1(276)[address] [place], [place] 1912407-07-2025 10:30-0400Body .21 kgMaagustina Rodas MD Work Phone: 1(898)[address] [place], [place] [address]Comment on above:w/o shoes 10-17-2024 10:30-0400Diastolic blood olbvzcro28 mm[Hg]Clifford Rodas MD Work Phone: 1(419)[address] [place], [place] 1912407-07-2025 10:30-0400Heart rate75 /minClifford Rodas MD Work Phone: 1(117)[address] [place], [place] 1912407-07-2025 10:30-0400 Respiratory rate16 /minClifford Rodas MD Work Phone: 1(545)[address] [place], [place] 1912407-07-2025 10:30-8758CvB2% (BldA) [Mass fraction]100 %Clifford Rodas MD Work Phone: 1(113)[address] [place], [place] [address]Comment on above:room air 10-17-2024 10:30-0400Systolic blood keutdnao640 mm[Hg]Clifford Rodas MD Work Phone: [facility]06-16-2025 16:04-0400Body mass index (BMI) [Ratio]29.23 kg/y7Tyzyjdjjasen Alfred CLOTH DESIZING RANGE OPERATOR CHIEF Work Phone: [facility] HospitalBeljdvpqol46-22-8522 16:04-0400Body temperature 97.5 [degF]Serene Alfred CLOTH DESIZING RANGE OPERATOR CHIEF Work Phone: [facility] HospitalIeftmupmqv16-18-6887 16:04-0400Body suatna98.84 kgChrisjana Alfred CLOTH DESIZING RANGE OPERATOR CHIEF Work Phone: [facility] HospitalUqnkzhapga95-23-8333 16:04-0400Diastolic blood mm[Hg]Serene Alfred CLOTH DESIZING RANGE OPERATOR CHIEF Work Phone: [facility] HospitalZrdgpafnsk44-74-5962 16:04-0400Heart rate92 /min Serene Alfred CLOTH DESIZING RANGE OPERATOR CHIEF Work Phone: [facility] HospitalRwmmllxsdw16-41-2764 16:04-0492TmH0% (BldA) [Mass fraction]95 %Serene Alfred CLOTH DESIZING RANGE OPERATOR CHIEF Work Phone: [facility] HospitalSqltkimpib15-96-0148 16:04-0400Systolic blood ezklagog152 mm[Hg]Serene Alfred CLOTH DESIZING RANGE OPERATOR CHIEF Work Phone: [facility] HospitalDhbsncagwb95-97-7905 14:05-0400Body lwjmmy520 cm Milind Little NEWS WRITER-YARN WORKER Work Phone: [facility]06-12-2025 14:05-0400Body mass index (BMI) [Ratio]64.59 kg/o9Semge Little NEWS WRITER-YARN WORKER Work Phone: [facility]06-12-2025 14:05-0400Body oloydd337.38 kgMilind Little NEWS WRITER-YARN WORKER Work Phone: [facility]06-12-2025 14:05-0400 Diastolic blood qyxkhjmp17 mm[Hg]Milind Fitch NEWS WRITER-YARN WORKER Work Phone: 1(205)[address] [place], [place] 8326206-12-2025 14:05-0400Heart rate74 /minEramiro Daltone NEWS WRITER-YARN WORKER Work Phone: 1(089)[address] [place], [place] 8326206-12-2025 14:05-0400 Respiratory rate21 /minEramiro Fitch NEWS WRITER-YARN WORKER Work Phone: 1(415)[address] [place], [place] 8326206-12-2025 14:05-9065MiR3% (BldA) [Mass fraction]98 %Milind Fitch NEWS WRITER-YARN WORKER Work Phone: 1(683)[address] [place], [place] 8326206-12-2025 14:05-0400Systolic blood vepmogrp340 mm[Hg]Milind Fitch NEWS WRITER-YARN WORKER Work Phone: 1(976)[address] [place], [place] 8326205-27-2025 14:55-0400Heart rate78 /Tali Dalton MD Work Phone: 1(390)[address] [place], [place] 8326205-27-2025 14:55-0400 Respiratory rate46 /Tali Dalton MD Work Phone: 1(460)[address] [place], [place] 8326205-27-2025 14:55-1891BmW5% (BldA) [Mass fraction]99 %Kacey Dalton MD Work Phone: 1(393)[address] [place], [place] 8326205-27-2025 14:50-0400 Diastolic blood apdfiood13 mm[Hg]Kacey Dalton MD Work Phone: 1(843)[address] [place], [place] 8326205-27-2025 14:50-0400Systolic blood xfqkudtn331 mm[Hg]Kacey Dalton MD Work Phone: 1(577)[address] [place], [place] 8326205-27-2025 14:14-0400Body eglkgzvpdqy37.7 [degF]Kacey Dalton MD Work Phone: 1(480)[address] [place], [place] 8326205-27-2025 12:35-0400Body Aron Dalton MD Work Phone: 1(685)[address] [place], [place] 8326205-27-2025 12:35-0400Body mass index (BMI) [Ratio]29.58 kg/x7JefweleutKacey Dalton MD Work Phone: 1(616)[address] [place], [place] 8326205-27-2025 12:35-0400Body ykrfse21.75 kgAlechristine Dalton MD Work Phone: 1(087)[address]04-21-2025 17:40-0400Body Anthony Aceves CLOTH DESIZING RANGE OPERATOR CHIEF Work Phone: 1(492)[address]04-21-2025 17:40-0400Body mass index (BMI) [Ratio]30.11 kg/h9Noozlwmybebe Aceves CLOTH DESIZING RANGE OPERATOR CHIEF Work Phone: 1(602)[address]04-21-2025 17:40-0400Body temperature 99.3 [degF]Katie Aceves CLOTH DESIZING RANGE OPERATOR CHIEF Work Phone: 1(674)640[facility]95[facility] HospitalZeyzawxtzn39-18-8125 17:40-0400Body ynprpy30.11 kgPagianfrancoia Oneal CLOTH DESIZING RANGE OPERATOR CHIEF Work Phone: 1(305)[address] [place], [place] 0447404-21-2025 17:40-0400Diastolic blood zfndhsuq99 mm[Hg]Katie Aceves CLOTH DESIZING RANGE OPERATOR CHIEF Work Phone: 1(962)164-[address] [place], [place] [address]Gnlsrrhhqc00-80-5728 17:40-0400Heart rate88 /min Katie Aceves CLOTH DESIZING RANGE OPERATOR CHIEF Work Phone: [address] StreetIegicyedlq80-60-9080 17:40-0400Respiratory rate18 /minKtaie Aceves CLOTH DESIZING RANGE OPERATOR CHIEF Work Phone: [address] StreetWgezbtnbmw22-79-4004 17:40-8628VwL1% (BldA) [Mass fraction]98 %Katie Aceves CLOTH DESIZING RANGE OPERATOR CHIEF Work Phone: 1(685)729-36[place] [address]Cipjkahhic72-31-8919 17:40-0400Systolic blood dfoorceb969 mm[Hg]Katie Hackenburg CLOTH DESIZING RANGE OPERATOR CHIEF Work Phone: 1(650)501-52[facility] HospitalEikvhdatgl61-91-7467 15:13-0400Body gficxe358 cm Chey Aragon MD Work Phone: 1(952)078-46[facility] HospitalRoozkoqvmr78-33-3791 15:13-0400Body mass index (BMI) [Ratio]30.65 kg/h0XdswnhlvChey Aragon MD Work Phone: 1(582)249-[address] [place], [place] [address]Nozrildaes49-39-2482 15:13-0400Body .47 kgChey Aragon MD Work Phone: 1(085)704-[address] [place], [place] [address]Ljsjwbofnc57-68-3745 15:13-0400Diastolic blood mm[Hg]Chey Aragon MD Work Phone: 1(637)669-[address] [place], [place] [address]Yudxpushjn04-91-1793 15:13-0400Heart mcee907 /min Chey Aragon MD Work Phone: 1(465)224-[address] [place], [place] [address]Dpuxzloifo17-02-0883 15:13-4297SbU6% (BldA) [Mass fraction]98 %Chey Aragon MD Work Phone: 1(209)771-77[facility] HospitalRpfmmwdgza04-52-4861 15:13-0400Systolic blood pexjkvkd671 mm[Hg]Chey Aragon MD Work Phone: 1(362)756-70[facility] HospitalBcaxybwfrn25-03-1350 15:05-0500Body cm Katie Aceves CLOTH DESIZING RANGE OPERATOR CHIEF Work Phone: 1(715)638-[address] [place], [place] [address]Djceoabloe36-42-4006 15:05-0500Body mass index (BMI) [Ratio]32.06 kg/o3CsmaarbzKatie Aceves CLOTH DESIZING RANGE OPERATOR CHIEF Work Phone: 1(103)842-04[facility] HospitalOmhrsfwwau94-30-0997 15:05-0500Body temperature 100.51 [degF]Katie Aceves CLOTH DESIZING RANGE OPERATOR CHIEF Work Phone: 1(325)277-[address] [place], [place] [address]Cxjvcwjvcp68-03-9004 15:05-0500Body umgiko05.1 kg Katie Aceves CLOTH DESIZING RANGE OPERATOR CHIEF Work Phone: 1(999)187-[address] [place], [place] [address]Lunvzfligv79-35-1643 15:05-0500Diastolic blood zxmyymsf03 mm[Hg]Katie Aceves CLOTH DESIZING RANGE OPERATOR CHIEF Work Phone: [facility] HospitalLznquszydf70-61-1078 15:05-0500Heart epjj158 /min Katie Aceves CLOTH DESIZING RANGE OPERATOR CHIEF Work Phone: [facility] HospitalLamcbzrvyu45-77-8707 15:05-0500Respiratory rate20 /minKatie Aceves CLOTH DESIZING RANGE OPERATOR CHIEF Work Phone: [facility] HospitalPjijplwpcf09-24-9874 15:05-1907HiM0% (BldA) [Mass fraction]99 %Katie Aceves CLOTH DESIZING RANGE OPERATOR CHIEF Work Phone: [facility] HospitalHidlaigpih18-97-6403 15:05-0500Systolic blood begtmrky122 mm[Hg]Katie Aceves CLOTH DESIZING RANGE OPERATOR CHIEF Work Phone: [facility] HospitalOpbtntahxw64-49-4910 10:52-0500Body lukdkq624.5 Mynor Lee MD Work Phone: [facility]01-22-2025 10:52-0500 Body mass index (BMI) [Ratio]32.34 kg/q2PmycqubDanny Lee MD Work Phone: [facility]01-22-2025 10:52-0500 Body jtopju29.3 kgDanny Lee MD Work Phone: [facility]01-22-2025 10:52-0500 Respiratory rate18 /minDanny Lee MD Work Phone: [facility]12-10-2024 15:40-0500 Body nucwxxjscen82.3 [degF]Danny Lee MD Work Phone: [facility]12-10-2024 15:40-0500 Diastolic blood qhzmgvup70 mm[Hg]Danny Lee MD Work Phone: [facility]12-10-2024 15:40-0500 Heart rate70 /minDanny Lee MD Work Phone: [facility]12-10-2024 15:40-0500 Respiratory rate20 /minDanny Lee MD Work Phone: [facility]12-10-2024 15:40-0500 SaO2% (BldA) [Mass fraction]99 %Danny Lee MD Work Phone: 1(206)084-[address] [place], [place] 7314512-10-2024 15:40-0500 Systolic blood nxvfuxid252 mm[Hg]Danny Lee MD Work Phone: 1(555)251-[address] [place], [place] 7314512-10-2024 12:38-0500 Body fypnng568.5 Mynor Lee MD Work Phone: 1(545)587-[address] [place], [place] 7314512-10-2024 12:38-0500 Body mass index (BMI) [Ratio]32.34 kg/x8JeljvnlDanny Lee MD Work Phone: [facility]12-10-2024 12:38-0500 Body yvjgzg57.3 kgDanny Lee MD Work Phone: [facility]10-30-2024 10:31-0400 Body mass index (BMI) [Ratio]33.48 kg/h5XkcfkjmSerene Alfred CLOTH DESIZING RANGE OPERATOR CHIEF Work Phone: [facility] HospitalCqqqwydrkq10-45-2035 10:31-0400Body pmyvyy25.73 kgSerene Alfred CLOTH DESIZING RANGE OPERATOR CHIEF Work Phone: [facility] HospitalVqrplfxpfr32-08-6115 10:31-0400Diastolic blood mm[Hg]Serene Alfred CLOTH DESIZING RANGE OPERATOR CHIEF Work Phone: [facility] HospitalCethnctqki82-51-3757 10:31-0400Heart rate76 /min Serene Alfred CLOTH DESIZING RANGE OPERATOR CHIEF Work Phone: [facility] HospitalEczcfzgvwy57-66-6449 10:31-0400Systolic blood jyokfvpb682 mm[Hg]Serene Alfred CLOTH DESIZING RANGE OPERATOR CHIEF Work Phone: 1(637)[address] [place], [place] 0447410-16-2024 09:50-0400Body nyommn253 cm Serene Alfred CLOTH DESIZING RANGE OPERATOR CHIEF Work Phone: 1(034)[address] [place], [place] 0447410-16-2024 09:50-0400Body mass index (BMI) [Ratio]34.19 kg/z0Vsgvetnjasen Alfred CLOTH DESIZING RANGE OPERATOR CHIEF Work Phone: 1(204)[address] [place], [place] 0447410-16-2024 09:50-0400Body temperature 97.39 [degF]Serene Alfred CLOTH DESIZING RANGE OPERATOR CHIEF Work Phone: 1(214)[address] [place], [place] 0447410-16-2024 09:50-0400Body .54 kgChjasen Alfred CLOTH DESIZING RANGE OPERATOR CHIEF Work Phone: 1(516)[address] [place], [place] 0447410-16-2024 09:50-0400Diastolic blood pzryahds15 mm[Hg]Serene Alfred CLOTH DESIZING RANGE OPERATOR CHIEF Work Phone: 1(119)[address] [place], [place] 0447410-16-2024 09:50-0400Systolic blood bfyhkzvn770 mm[Hg]Serene Alfred CLOTH DESIZING RANGE OPERATOR CHIEF Work Phone: 1(433)[address] [place], [place] 0447408-07-2024 11:15-0400Diastolic blood mm[Hg]Sharath Lambert MD Work Phone: [facility]08-07-2024 11:15-0400Heart rate68 /Caridad Lambert MD Work Phone: [facility]08-07-2024 11:15-0400 Respiratory rate22 /Caridad Lambert MD Work Phone: 1(068)715[facility]08-07-2024 11:15-2954AtC5% (BldA) [Mass fraction]100 %Sharath Lambert MD Work Phone: [facility]08-07-2024 11:15-0400Systolic blood zingbvug755 mm[Hg]Sharath Lambert MD Work Phone: 1(113)[address] [place], [place] 8326208-07-2024 10:53-0400Body tesssnwxjea32.7 [degF]Sharath Lambert MD Work Phone: 1(546)[address] [place], [place] 8326208-07-2024 09:53-0400Body uiormr679 cmSharath Lambert MD Work Phone: 1(087)[address] [place], [place] 8326208-07-2024 09:53-0400Body mass index (BMI) [Ratio]32.97 kg/h9GrnkzeoSharath Lambert MD Work Phone: 1(470)[address] [place], [place] 8326208-07-2024 09:53-0400Body .41 kgSharath Lambert MD Work Phone: 1(760)[address] [place], [place] 8326204-25-2024 11:43-0400Body fxmqek661 cmSlinh Mckeon MD Work Phone: 1(672)[address] [place], [place] 3636204-25-2024 11:43-0400Body mass index (BMI) [Ratio]37.91 kg/h4AimijChristine Mckeon MD Work Phone: 1(268)[address] [place], [place] 3636204-25-2024 11:43-0400Body omyoah91.07 kgChristine Mckeon MD Work Phone: 1(720)[address] [place], [place] 3636204-25-2024 11:43-0400 Diastolic blood mm[Hg]Chrisitne Mckeon MD Work Phone: 1(293)[address] [place], [place] 3636204-25-2024 11:43-0400Heart kwqe799 /minSlinh Mckeon MD Work Phone: 1(004)[address] [place], [place] 3636204-25-2024 11:43-2076FqM2% (BldA) [Mass fraction]98 %Christine Mckeon MD Work Phone: 1(281)[address] [place], [place] 3636204-25-2024 11:43-0400Systolic blood ptddchwu033 mm[Hg]Christine Mcekon MD Work Phone: [facility]04-25-2024 09:34-0400Body cmMackenzie Verhoff NEWS WRITER-YARN WORKER Work Phone: [facility]04-25-2024 09:34-0400Body mass index (BMI) [Ratio]37.98 kg/t5Isfhbxxoh Verhoff NEWS WRITER-YARN WORKER Work [facility]: [facility]04-25-2024 09:34-0400Body caoyhw49.25 kgMackenzie Verhoff NEWS WRITER-YARN WORKER Work Phone: [facility]04-25-2024 09:34-0400 Diastolic blood iydciggb74 mm[Hg]Teresa Verhoff NEWS WRITER-YARN WORKER Work Phone: [facility]04-25-2024 09:34-0400Heart rate75 /minMackenzie Verhoff NEWS WRITER-YARN WORKER Work Phone: [facility]04-25-2024 09:34-3198WyC3% (BldA) [Mass fraction]98 %Teresa Verhoff NEWS WRITER-YARN WORKER Work Phone: [facility]04-25-2024 09:34-0400Systolic blood zrkaghyt032 mm[Hg]Teresa Verhoff NEWS WRITER-YARN WORKER Work Phone: [facility]02-13-2024 17:17-0500Body dijiio362 Jaya Hernandez CLOTH DESIZING RANGE OPERATOR CHIEF Work Phone: [facility] HospitalMgnldoevir52-98-1650 17:17-0500Body mass index (BMI) [Ratio]34.97 kg/w6IadnuFranck Hernandez CLOTH DESIZING RANGE OPERATOR CHIEF Work Phone: [facility] HospitalMjgpmwtvmh16-30-3397 17:17-0500Body .54 kgFranck Hernandez CLOTH DESIZING RANGE OPERATOR CHIEF Work Phone: 1(097)[facility]87[facility] HospitalEcnqshqnmb91-28-5551 17:17-0500Diastolic blood ixiftbuu32 mm[Hg]Franck Hernandez CLOTH DESIZING RANGE OPERATOR CHIEF Work Phone: 1(937)584[facility]89[facility] HospitalJxoxvleuyh59-99-8122 17:17-0500Heart wocy054 /min Franck Hernandez CLOTH DESIZING RANGE OPERATOR CHIEF Work Phone: 1(692)[address]02-13-2024 17:17-5717HtE5% (BldA) [Mass fraction]99 %Franck Hernandez CLOTH DESIZING RANGE OPERATOR CHIEF Work Phone: 1(490)[address]02-13-2024 17:17-0500Systolic blood elxxlfud795 mm[Hg]Franck Hernandez CLOTH DESIZING RANGE OPERATOR CHIEF Work Phone: 1(785)[address] [place], [place] 0447401-12-2024 13:59-0500Body uvsbnk123 cm Ruchi Carmona MD Work Phone: 1(909)[address] [place], [place] 2070601-12-2024 13:59-0500Diastolic blood frvruqph70 mm[Hg]Ruchi Carmona MD Work Phone: 1(474)[address] [place], [place] 2070601-12-2024 13:59-0500Heart rate 81 /minRuchi Carmona MD Work Phone: 1(096)[address] [place], [place] 2070601-12-2024 13:59-0500Systolic blood sbtnqenv063 mm[Hg]Ruchi Carmona MD Work Phone: 1(415)[address] [place], [place] 2070611-15-2023 12:32-0500Body ioyusj136 cmSamilcar Solis MD Work Phone: 1(874)[address] [place], [place] 8326211-15-2023 12:32-0500Body mass index (BMI) [Ratio]32.06 kg/o7DdmwdxKye Solis MD Work Phone: 1(738)[address] [place], [place] 8326211-15-2023 12:32-0500Body .1 kgKye Solis MD Work Phone: 1(823)[address] [place], [place] 8326211-15-2023 12:32-0500 Diastolic blood emhjmjyy66 mm[Hg]Kye Solis MD Work Phone: [facility]11-15-2023 12:32-0500Heart rate74 /minSamilcar Solis MD Work Phone: 1([phone]11-15-2023 12:32-1894BcP0% (BldA) [Mass fraction]97 %Kye Solis MD Work Phone: 1(305)3660056[facility] HospitalComment on above:MN83-01-8928 12:32-0500Systolic blood wnveelqu129 mm[Hg]Kye Solis MD Work Phone: 1(033)[address] [place], [place] 6904510-16-2023 10:50-0400Body ohmkvj840.1 cmEnmanuel Osuna MD Work Phone: [facility]10-16-2023 10:50-0400 Body mass index (BMI) [Ratio]31.25 kg/y0CyixooulEnmanuel Osuna MD Work Phone: 1(765)586-[facility]10-16-2023 10:50-0400 Body jbatbneluka04.1 [degF]Enmanuel Osuna MD Work Phone: 1(500)564-[facility]10-16-2023 10:50-0400 Body ovtakb00.1 kgEnmanuel Osuna MD Work Phone: 1(814)184-[facility]10-16-2023 10:50-0400 Diastolic blood bxvzyxxr43 mm[Hg]Enmanuel Osuna MD Work Phone: [facility]10-16-2023 10:50-0400 Heart rate73 /Neal Osuna MD Work Phone: [facility]10-16-2023 10:50-0400 Respiratory rate20 /Neal Osuna MD Work Phone: 1(480)531-[facility]10-16-2023 10:50-0400 Systolic blood mm[Hg]Enmanuel Osuna MD Work Phone: [facility]10-16-2023 09:51-0400 Body sabtbw074.1 Mynor Lee MD Work Phone: [facility]10-16-2023 09:51-0400 Body mass index (BMI) [Ratio]31.25 kg/i3KjunozzDanny Lee MD Work Phone: [facility]10-16-2023 09:51-0400 Body .1 kgDanny Lee MD Work Phone: [facility]10-16-2023 09:51-0400 Respiratory rate20 /minDanny Lee MD Work Phone: [facility]10-16-2023 08:15-0400 Body tolvai271.1 cmIoana Otero MD Work Phone: [facility]10-16-2023 08:15-0400 Body mass index (BMI) [Ratio]31.25 kg/m2Ioana Otero MD Work Phone: [facility]10-16-2023 08:15-0400 Body akjvadfbplz93.2 [degF]Ioana Otero MD Work Phone: [facility]10-16-2023 08:15-0400 Body jadnqb37.1 kgIoana Otero MD Work Phone: [facility]10-16-2023 08:15-0400 Diastolic blood dcxriuxq42 mm[Hg]Ioana Otero MD Work Phone: [facility]10-16-2023 08:15-0400 Heart rate74 /minIoana Otero MD Work Phone: [facility]10-16-2023 08:15-0400 Systolic blood sxgshehv669 mm[Hg]Ioana Otero MD Work Phone: [facility]09-15-2023 12:00-0400 Body webzbi34.6 kgConnie Mac [facility]01-[facility]2023 11:04-0500Body Mynor Lee MD Work Phone: [facility]:prior [id number] 11:04-0500Body mass index (BMI) [Ratio]31.09 kg/x7ZlnbnwmDanny Lee MD Work Phone: [facility]01-23-2023 11:04-0500 Body ajdvxj05.6 kgDanny Lee MD Work Phone: [facility]01-23-2023 11:04-0500 Heart rate84 /minDanny Lee MD Work Phone: [facility]05-03-2022 18:15-0400 Diastolic blood mm[Hg]Jessie Lenz MD [facility] Phone[id number] 18:15-0400Heart rate86 /min Jessie Lenz MD Work Phone: [facility]Dtpzyo43-25-1627 18:15-0400Systolic blood ugbwtaux596 mm[Hg]Jessie Lenz MD Work Phone: [facility] [id number] 16:15-0400Body poxssbjyios05.1 [degF]Jessie Lenz MD Work Phone: [facility] CampusUodjag60-30-1322 11:30-0400Respiratory rate16 /minJessie Lenz MD Work Phone: [facility] [id number] 11:30-8510TuD9% (BldA) [Mass fraction]99 %Jessie Lenz MD Work Phone: [facility] [id number] 08:15-0400Body qewmtr192 cm Jessie Lenz MD Work Phone: [facility] [id number] 08:15-0400Body mass index (BMI) [Percentile] Per age and sex95.01 %Jessie Lenz MD Work Phone: [facility] [id number] 08:15-0400Body mass index (BMI) [Ratio]31.6 kg/a6XzmofszJessie Lenz MD Work Phone: [facility] [id number] 08:15-0400Body ipmkus25 kg Jessie Lenz MD Work Phone: [facility] Encounters Encounter DateEncounter [facility] ProviderFacilityStart: 02-22-2025 End: [id number] Joseph NP [facility] 02-22-[facility]25 End: 80-91-1118Pkwjulandrew Joseph NP Work Phone: [facility] MedicineStart: 02-22-2025 End: 61-03-8257myneukgkolZPUKLUL A PAWLIKOWSKINot AvailableStart: 02-20-2025 End: 42-39-0419Eggreib encounter procedureSdominik GARNICA Work Phone: [facility] Nursing at Lehigh AcresComment on above:Ostomy nurse consultation (Primary Dx)Start: 02-20-2025 End: 04-97-1239Turckl follow up visit related to original pxYvette GARNICA Work Phone: division of Colon & Rectal SurgeryComment on above: Postoperative follow-up (Primary Dx); Crohn's disease of both small and large intestine with complication; Anorectal stricture; Ileostomy in placeStart: 95-82-7423zsbmtrxpqeTKYYDCU F KALADYFacility:[facility]tart: 01-27-2025 End: 89-97-4147Johrjs flowsCeferino Aragon MD Work Phone: noMemorial Hospital Of Gardenatart: 01-27-2025 End: 88-17-4526Hkvqxu flowsCeferino Aragon MD Work Phone: noMemorial [facility] Gardenatart: 01-27-2025 End: 67-73-5095Aaxlkpegp Result EncounterChey Aragon MD Work Phone: noms External Department UnsolicitedStart: 01-27-2025 End: 53-39-3445Wleutt-up encounterChey Aragon MD Work Phone: noOrange County Global Medical CenterComment on above:ALL CBC WITH AUTO DIFFStart: 01-27-2025 End: 68-87-2481Wrnagnb encounter statusChey Aragon MD Work Phone: [facility] Work Phone: Start: 01-27-2025 End: 46-58-8393Mpdnkmbe preventive med est patient 18-39 yrsChey Aragon MD Work Phone: noOrange County Global Medical CenterComment on above:Encounter for wellness examination in adult (Primary Dx); Microcytic anemia; Family history of malignant neoplasm of breastStart: 01-27-2025 End: 57-73-9552dirxsnwyemCPFWPOBH HOHMANNot AvailableStart: 01-17-2025 End: 96-60-2856Vrsxplbzuq and management of inpatientMaagustina Rodas MD Work Phone: b7SComment on above:Anorectal strictureStart: 76-23-8112rzfxxcfgviPUARKDI F KALADYFacility:[facility]tart: 01-02-2025 End: 90-86-6863Lydcryt encounter procedureRonald Reagan [facility] [address] Nursing at [place] AcresComment on above:Ostomy nurse consultation (Primary Dx)Start: 25-88-6613pkbydhitvwPDBNMWH F KALADYFacility:[facility]tart: 12-29-2024 End: 11-85-1869Hvupxatmf Result EncounterGeneric External Data ProviderNOMS External Department UnsolicitedStart: 12-29-2024 End: 92-01-8133Fnytossfm Result EncounterGeneric External Data ProviderNOMS External Department UnsolicitedStart: 12-28-2024 End: 74-40-1881Bmniujacf Result EncounterGeneric External Data ProviderNOMS External Department UnsolicitedStart: 12-28-2024 End: 42-26-7596Wrlohbowk Result EncounterGeneric External Data ProviderNOMS External Department UnsolicitedStart: 12-26-2024 End: 18-30-9087Amzyut outpatient visit 25 minutesClifford Rodas MD Work Phone: division of Colon & Rectal SurgeryComment on above: Anorectal stricture (Primary Dx)Start: 12-26-2024 End: 29-78-7751Lfijvgpw Support EncounterClifford Rodas MD Work Phone: [facility] Nursing at [place] AcresComment on above:Anorectal stricture (Primary Dx)Start: 12-09-2024 End: 02-90-3580Aklhrbeyg Result EncounterGeneric External Data ProviderNOMS External Department UnsolicitedStart: 12-09-2024 End: 00-67-3744Ukabwghlj Result EncounterGeneric External Data ProviderNOMS External Department UnsolicitedStart: 67-27-7567mbrxqikjgkNUSRPJGDEduarda Louisecility:[facility]tart: 14-68-1785lxosuattkqDPOIFACXEduarda Louisecility:[facility]tart: 11-02-2024 End: 77-33-5749zhbbotuxeaEZJRDIR F KALADYFacility:[facility]tart: 11-02-2024 End: 77-80-2023Omlpxonzsm hospital visit by physicianClifford Rodas MD Work Phone: cCCT PERIOPComment on above:Crohn's disease of both small and large intestine with complicationStart: 10-31-2024 End: 81-03-7182Tqfbhtpxl Result EncounterGeneric External Data ProviderNOMS External Department UnsolicitedStart: 10-31-2024 End: 90-46-7784Zpyuxrvdk Result EncounterGeneric External Data ProviderNOMS External Department UnsolicitedStart: 10-26-2024 End: 29-52-2098tydhsdabysGUNCWNV F KALADYSutter [facility] HospitalStart: 10-26-2024 End: 24-20-7658Ocuwbulmxm hospital visit by physicianStc Ct Rm [address] [place] [address] CT ScanComment on above:Crohn's disease of both small and large intestine with complication (HCC)Start: 63-42-8175rydckwhrjpIMUGGQB F KALADY Facility:[facility]art: 10-17-2024 End: 72-96-5082Xlyxaw consultation new/estab patient 80 Reagan Rodas MD Work Phone: division of Colon & Rectal SurgeryComment on above: Crohn's disease of both small and large intestine with complication (Primary Dx) Start: 24-98-6082xlbxjzfuepOIGTOUMHEduarda PILLAIFacility:[facility]tart: 09-26-2024 End: 92-35-1883Zbkpof outpatient visit 25 minutesChristy Lorenzo Alfred NP Work Phone: NOWE FNR FMComment on above:Acute cough (Primary Dx); Acute bilateral otitis media; Acute viral bronchitis; WheezingStart: 09-26-2024 End: 39-19-3333ttoabdqzegNBUWYVK Lorenzo Torres AvailableStart: 09-22-2024 End: 49-84-6155Xwxljx outpatient visit 15 minutesEmalla Fitch NEWS WRITER-YARN WORKER Work Phone: [facility]'S HospitaldComment on above:Crohn's disease of both small and large intestine with complication (Primary Dx)Start: 56-25-9433otcgqevqwfRNIE SELFFacility:[facility] Start: 87-91-1502mneowhokzaRBMOV WINKLEFacility:[facility]tart: 79-31-1123mukoeqakydIGSJHGBYL R HOOPERFacility:[facility]tart: 09-06-2024 End: 93-87-0850Nlnmulezzc hospital visit by Carlitos Dalton MD Work Phone: [facility] on above: ArrivedStart: 08-01-2024 End: 61-99-8856Cykkgc outpatient visit 25 minutesKatie Aceves CLOTH DESIZING RANGE OPERATOR CHIEF Work Phone: NOMS FNR FMComment on above:Immunocompromised patient (CMS/HCC) (Primary Dx); Nonintractable episodic headache, unspecified headache type; 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Start: 08-01-2024 End: 53-38-3689uasyciyxmwHQBFUASK A HACKENBURGNot AvailableStart: 08-01-2024 End: 93-54-1992Pmeurw Meme Aceves CLOTH DESIZING RANGE OPERATOR CHIEF Work Phone: NOMS FNR FMStart: 08-01-2024 End: 33-28-7420Bnrszf Meme Aceves CLOTH DESIZING RANGE OPERATOR CHIEF Work Phone: NOMS FNR FMStart: 07-27-2024 End: 62-88-0900rrrgbydiatETTRG KAMPFERNot AvailableStart: 07-20-2024 End: 24-83-6488Oehonv OnlyFranck Hernandez CLOTH DESIZING RANGE OPERATOR CHIEF Work Phone: NOMS FNR FMComment on above:Nonintractable episodic headache, unspecified headache type (Primary Dx)Start: 07-15-2024 End: 52-62-8226Ibnqsp outpatient visit 15 Savannah Aragon MD Work Phone: NOMS FNR FMComment on above:Nonintractable episodic headache, unspecified headache type (Primary Dx)Start: 07-15-2024 End: 84-52-3675knptbkbdvmVCHOTBVW HOHMANNot AvailableStart: 07-15-2024 End: 90-91-3389Xlbiqg Ceci Aragon MD Work Phone: NOMS FNR FMStart: 07-15-2024 End: 95-97-7486Bjaehd flowsheetChey Aragon MD Work Phone: NOMS FNR FMStart: 07-13-2024 End: 20-10-3651rmbqsjybfkZBK [facility] CITYLAILASelect [facility] Start: 90-73-4302vvykhfcwouFENUMZVU [facility] Hospitaltart: 06-06-2024 End: 62-13-0283Eclmsnqan Result EncounterGeneric External Data ProviderNOMS External Department UnsolicitedStart: 06-06-2024 End: 34-01-9824Alstchihq Result EncounterGeneric External Data ProviderNOMS External Department UnsolicitedStart: 06-03-2024 End: 36-68-5073Jhpxnttrm Result EncounterGeneric External Data ProviderNOMS External Department UnsolicitedStart: 06-03-2024 End: 26-48-6827Relkhvytt Result EncounterGeneric External Data ProviderNOMS External Department UnsolicitedStart: 90-71-2050rgwhltbpapXWEMA [facility] Facility:[facility]tart: 05-18-2024 End: 71-64-9542Khsxosvlm encounterChey Aragon MD Work Phone: noMS FNR FMStart: 05-17-2024 End: 23-08-3574Nurdfv outpatient visit 15 minutesPatricjose david Aceves CLOTH DESIZING RANGE OPERATOR CHIEF Work Phone: noMS FNR FMComment on above:Viral URI (Primary Dx); Fever, unspecified fever causeStart: 05-17-2024 End: 14-66-1686amvhavxjibEDLSMXNT A HACKENBURGNot AvailableStart: 05-17-2024 End: 60-11-0349Zmhcfv flowsheetPatricia A Oneal CLOTH DESIZING RANGE OPERATOR CHIEF Work Phone: noms FNR FMStart: 05-17-2024 End: 54-24-3833Nmwxdx flowsheetPatricia A Oneal CLOTH DESIZING RANGE OPERATOR CHIEF Work Phone: noms FNR FMStart: 70-55-2128rghimgipxhMWIGXEFN [facility] Hospitaltart: 05-04-2024 End: 70-67-7766Bgzukw outpatient visit 15 Sandy Lee MD Work Phone: [facility] CenterComment on above:Surgical Followup Start: 04-28-2024 End: 75-04-2789Ctzgenpuf Zayra Campo APRN Work Phone: [facility] CenterStart: 03-22-2024 End: 24-00-2890rsqucdyutsEPNTYTOB [facility]tart: 03-22-2024 End: 06-76-3515Ctknzuafef hospital visit by Jeff Lee MD Work Phone: [facility] CenterStart: 03-15-2024 End: 10-82-8545Erikuprse encounterDanny Lee MD Work Phone: [facility] CenterComment on above:Change AppointmentStart: 03-03-2024 End: 17-27-0426Hnwbxtdhi Nisah Lee MD Work Phone: [facility] CenterComment on above:Schedule ProcedureStart: 03-02-2024 End: 44-34-2970xzqumuttieRtvfyv M Collins CPNP-PCFacility:[facility] Start: 02-29-2024 End: 50-03-0519zbjqvzvyyxDGWPYFAU [facility] Hospitaltart: 02-29-2024 End: 78-81-9042Fecqlymxga hospital visit by physicianJackeline 7CT [facility] HospitalComment on above:Chronic sinusitis, unspecified locationStart: 73-22-5903Eexutbegx encounterAndressa Delbert [facility] CenterComment on above:Case DiscussionStart: 02-10-2024 End: 85-86-1285Uktbxa flowsheetChristy A Alfred CLOTH DESIZING RANGE OPERATOR CHIEF Work Phone: noms FNR FMStart: 02-10-2024 End: 81-07-1811Pecnoc flowsheetChristy A Alfred CLOTH DESIZING RANGE OPERATOR CHIEF Work Phone: noms FNR FMStart: 02-10-2024 End: 38-18-7460Sayyuw outpatient visit 15 minutesChristy A Alfred CLOTH DESIZING RANGE OPERATOR CHIEF Work Phone: noms FNR FMComment on above:Anxiety (Primary Dx)Start: 01-27-2024 End: 04-77-8140Lgoslk flowsheetChristy A Alfred CLOTH DESIZING RANGE OPERATOR CHIEF Work Phone: noms FNR FMStart: 01-27-2024 End: 40-72-0418Mxxbmk flowsheetChristy A Alfred CLOTH DESIZING RANGE OPERATOR CHIEF Work Phone: noms FNR FMStart: 01-27-2024 End: 70-47-7116Ileaoom encounter statusChristy A Alfred CLOTH DESIZING RANGE OPERATOR CHIEF Work Phone: [facility] Work Phone: Start: 01-27-2024 End: 90-90-8105Fecnnxdk preventive med est patient 18-39 yrsChristy A Alfred CLOTH DESIZING RANGE OPERATOR CHIEF Work Phone: noms FNR FMComment on above:Encounter for wellness examination in adult (Primary Dx); Adalimumab (Humira) [...] small and large intestine with unspecified complications (CMS/HCC)Start: 11-18-2023 End: 48-21-7178Cdaydlwgec hospital visit by Palma Lambert MD Work Phone: [facility] Ann ArborComment on above: ArrivedStart: 11-09-2023 End: 11-65-2505febzkqckeaSXINDKAC Luba [facility] Centertart: 09-03-2023 End: 12-44-5965pcbfpmbagxWkuboqs L FloroFacility:[facility] Hospitaltart: 09-03-2023 End: 69-22-3281rsalilqcgbPSWD Valerie Floro Work Phone: [facility] Work Phone: Start: 09-03-2023 End: 40-07-2573Ocruuosk ReferredSHANTELL Duong Work Phone: [facility]-LAB Path Spec [facility] HospStart: 08-06-2023 End: 07-60-9667Cybboiyge Result EncounterGeneric External Data ProviderNOMS External Department UnsolicitedStart: 08-06-2023 End: 10-12-7864Xibemzdrd Result EncounterGeneric External Data ProviderNOMS External Department UnsolicitedStart: 08-06-2023 End: 26-44-2356Jzpqmo consultation new/estab patient 80 Jose Daniel Mckeon MD Work Phone: [facility]ology [facility] Comment on above:Orbital myositis, unspecified laterality (Primary Dx); Crohn's disease of small and large intestines with complication; Immunosuppressed status; Chronic pansinusitis; Pulmonary nodules; Psoriasis; Less than 8 weeks gestation of ; Left leg swelling; Psoriasis of scalpStart: 08-06-2023 End: 04-04-9080Rgiejg outpatient visit 15 minutesTeresa Gerber APRN-YARN WORKER Work Phone: [facility] Hospitalomment on above:Crohn's disease in remission (Primary Dx)Start: 07-03-2023 End: 59-57-2084kswhbvodruMRMSYYSAscension All Saints Hospital Sat[facility] HospitalStart: 06-01-2023 Orders Tamara Bautista RNMaternal- Medicine at [facility] Comment on above:Maternal Crohn's disease affecting in second trimester (CMS-HCC) (Primary Dx); History of chronic ulcerative colitisStart: 05-29-2023 End: 57-60-5529ucxrlixotdWHUJSLECorey Hospitaltart: 05-26-2023 End: 27-99-8086Ceksiy outpatient visit 25 minutesSaleatha Hernandez CLOTH DESIZING RANGE OPERATOR CHIEF Work Phone: NOMS FNR FMComment on above:Viral URI (Primary Dx); 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-HCC) (Primary Dx) Start: 04-24-2023 End: 79-17-9091dnvtjdnhbzYEZYHHXCorey Hospitaltart: 04-24-2023 End: 03-08-5509Zabptb outpatient new 45 minutesHind David Carmona MD Work Phone: [phone]-Nwxsu Medicine at [facility] Comment on above:Maternal Crohn's disease affecting in second trimester (CMS-HCC) (Primary Dx); History of chronic ulcerative colitis; 19 weeks gestation of pregnancyStart: 68-15-7921Uuokg abstractingScanning Provider ExternalMaternal- Medicine at [facility] Hospitaltart: 04-03-2023 End: 12-87-5987Cbvlkkte Support EncounterOsburke rehabilitation hospital Ibd NurseInflammatory Bowel Disease Center [facility] Community Hospitalomment on above:Crohn's disease of both small and large intestine with complication (Primary Dx)Start: 65-23-1353Dhlhs abstracting Scanning Provider ExternalMaternal- Medicine at [facility] Start: 40-62-9109Rxjvytoic encounterJavier Agee MD Work Phone: gi [facility] CampusComment on above:Case Discussion (Transitioned to adult GI at [facility])Start: 02-25-2023 End: 21-32-6892Icvmmx consultation new/estab patient 80 Brendan Solis MD Work Phone: Inflammatory Bowel Disease [facility] Hospitalomment on above:Crohn's disease of both small and large intestine with complication (Primary Dx); Orbital myositis, unspecified laterality; 11 weeks gestation of pregnancyStart: 01-26-2023 End: 30-63-7263Wiiurttwuw hospital visit by Erasto Osuna MD Work Phone: Hematology/Oncology ClinicsComment on above:Iron deficiencyStart: 01-26-2023 End: 54-69-5767Wfjrxb outpatient visit 15 minutesDanny Lee MD Work Phone: ent [facility] CampusComment on above:Sinus Problem (F/u recurrent sinusitis)Start: 01-26-2023 End: 02-44-5323Wgqjmq outpatient visit 40 minutesIoana Otero MD Work Phone: [facility] Centertology [facility] CampusComment on above: FOLLOW-UPStart: 38-61-7155Flsdhmynj encounterIoana Otero MD Work Phone: [facility] Centertology [facility] CampusComment on above: ResultsStart: 09-69-7492Icsodjxpd encounterTaearnestine Moore RNCommunity Regional Medical Centertology [facility] CampusComment on above:UpdateStart: 87-12-3003PlviuaGnllgqv M Boyle MD Work Phone: gi [facility] Main CampusComment on above:Refill Request Start: 48-60-8207bzvrmdwgsoVkgdhw Adilene [facility]ty PharmacyStart: 89-95-2377Ysnwujztyvep of care Carlotta Head [facility] Comment on above:Primary Insurance: Prior Authorization Coordination for Gastroenterology Prior AuthorizationStart: 52-79-6456Twvpjvyiw encounterConnie Mac RNRheumatology [facility] HospitalComment on above:Coordination Of Care (Rituximab)Start: 50-47-6894Wxwxvuruy encounterMotan Pierre combine mechanic/Oncology ClinicsComment on above:Change AppointmentStart: 09-24-2022 Telephone encounterDanny Lee MD Work Phone: [facility] CenterComment on above:Schedule SurgeryStart: 10-62-6265Lweonqfbzktpd procedureDanny Lee MD Work Phone: [facility] CenterComment on above:Per [facility] R[facility] Letter #9, [facility] requested clinicals be sent. Clinicals sentStart: 07-16-2022 Documentation procedureJavier Agee MD Work Phone: gi [facility] HospitalComment on above:Faxed [facility] reapplication to [phone]. Scanned into the chart.Start: 05-05-2022 End: 48-70-7211Axijai follow up visit related to original pxDanny Lee MD Work Phone: [facility] CenterComment on above:Orbital myositis, unspecified laterality (Primary Dx); Chronic sinusitis, unspecified locationStart: 46-62-0686Mdothsdzd encounter Brielle Teran RNSurgery [facility] 6DComment on above:Surgical FollowupStart: 04-86-6587Jdllfblhu encounterMitch Banuelos MD Work Phone: [facility] 6DComment on above: Pre-certificationStart: 11-19-2021 End: 79-62-8925olgosqdjmzKR DOCTOR MISCFacility:K5Wkuki: 08-13-2021 End: 20-81-0773lkykscoavqKSNAXFCMaegan Cárdenas Medical CenterStart: 08-13-2021 End: 54-85-1895Cmxgogopml hospital visit by physicianJessie Lenz MD Work Phone: [facility] 6A/B PediatricsStart: 07-09-2021 End: 62-95-4191cbxqermkogWUHC A [facility] Centertart: 07-09-2021 End: 34-37-4914Jcvdvevijp hospital visit by Mahendra Sinclair Work Phone: stvZ LaboratoryStart: 06-27-2021 End: 48-83-1387ozngiuqwebRE DOCTOR MISCFacility:I2Iqnqx: 04-30-2021 End: 37-90-5332srygymmxsfXI DOCTOR MISCFacility:H1 Procedures DateProcedureProcedure DetailPerforming ClinicianStart: 06-19-5624RBE CBC WITH AUTO DIFFChey Aragon MD Work Phone: Start: 87-90-0255Hpqsz of Tariq Baires MD Work Phone: Start: 15-45-5161Gxzev of Tariq Baires MD Work Phone: Start: 32-21-3788TTKABHHZAW CARDIAC MONITORING STRIP Other OtherStart: 01-17-2025 End: 96-41-2463Tlhapircvbq surg ileostomy/jejunostomy non-tubeMattfroy Rodas MD Work Phone: start: 88-44-9169Hedrhecd screenMattfroy Rodas MD Work Phone: start: 08-13-8330JLYFB TYPE RECONFIRMATIONAlyssa Boucher DO Work Phone: Start: 72-82-2949Kyaurcdkyuko RODASComment on above:Performed By: #### CMPN, CRP, IRBC #### [facility] [address] [place] [id number]: 39-36-4686Pyuxy typing serologic Destini Bermudez DO Work Phone: Start: 01-60-8196Bzapbxbhylih chorionic qualitative Clifford Rodas MD Work Phone: start: 72-69-7977ERAXQPWSDBVN, FECALGeneric External Data ProviderStart: 68-17-0601FWXCI IRON AND TIBCGeneric External Data Provider Start: 58-50-6593NWG CBC WITH AUTO DIFFGeneric External Data ProviderStart: 64-02-9202ZIGARBOUJG CARDIAC MONITORING STRIPOther OtherStart: 11-02-2024 CONTINUOUS CARDIAC MONITORING STRIPOther OtherStart: 11-02-2024 End: 77-42-9038Execnzelxgot chorionic qualitativeMaagustina Rodas MD Work Phone: start: 34-92-9070Kg abdomen & pelvis w/contrast materialGeneric External Data ProviderStart: 14-73-9161Cpfrbhqvzqc flx dx w/collj spec when pfrmdEmily Winkle NEWS WRITER-YARN WORKER Work Phone: Start: 28-77-3980Iynotdwxcekzssdzzf ( test) [Presence] in UrineThomas Pastor DEAL Work Phone: Start: 06-06-2024. DIFFICILE PCRGeneric External Data ProviderStart: 74-96-6008VAY CBC WITH AUTO DIFFGeneric External Data Provider Start: 86-84-6451RVAOKQ COVID-19/FLUPatricia A Shastaenburg CLOTH DESIZING RANGE OPERATOR CHIEF Work Phone: Start: 47-19-2803Xbhgywdfvdijovrwyw ( test) [Presence] in Serum or PlasmaDanny Lee MD Work Phone: Start: 07-62-2448Ep maxillofacial w/o contrast materialKrista Jaxon CPNP-PC Work Phone: Start: 17-83-1020Qmkcewdqbwr flx dx w/collj spec when pfrmdEmily Winkle NEWS WRITER-YARN WORKER Work Phone: Start: 20-89-4070Cvbekfelcvtexplyek ( test) [Presence] in UrineSharath Lambert MD Work Phone: Start: 63-90-9771IL VENOUS DOPPLER LE LTGeneric External Data ProviderStart: 33-64-0914Kllma dip stick/tablet rgnt auto w/o microscopyStacy Dayanara Mckeon MD Work Phone: Start: 09-86-8432Agxctua impacted cerumen irrigation/lvg Abel Hernandez CLOTH DESIZING RANGE OPERATOR CHIEF Work Phone: Start: 20-84-4287BYJWTZGQW/GC BY PCR ROLDAN SWABNot In System Ref ProvStart: 61-27-2007Cqsgjwau screenScanning ExternalStart: 96-00-6251TSR 1&2 AB/AG SCREEN (P24 AG)Not In System Ref ProvStart: 02-25-2023 Iaad ia hepatitis b surface antigenNot In System Ref ProvStart: 02-25-2023 Syphilis test non-treponemal antibody qualNot In System Ref ProvStart: 22-83-5648HABN AND SCREENNot In System Ref ProvStart: 10-10-1258Nmsjd count complete auto&auto difrntl wbcLois Lorenzo Orantes MD Work Phone: H/O: ileostomyHistory of ileostomyClifford Rodas MD Work Phone: Plan of Treatment DateCare ActivityDetailAuthorStart: 33-65-3171Uafobhryq vaccinationInfluenza Vaccine (#1)NOMS HealthcareComment on above:Postponed from 12/12/2024 (Patient Refused)Start: 05-29-2025 End: 03-16-0883Lsdapqy encounter rltynhjlk06/16/2026 2:45 PM EST Office Visit Division of Colon & Rectal Surgery [address] [place] [address] Clifford Rodas MD [address] [place] [address] Division of Colon & Rectal SurgeryStart: 03-20-2025 End: 75-31-6378Hopnoxr encounter epsvinmzp51/08/2025 11:00 AM EST Office [facility] [place], [place] [id number] Claudia Rodriguez MD [address] [place] [address] [facility] Start: 02-24-2025 End: 45-82-4789Wqlffxn encounter vxhonxghq96/14/2025 2:15 PM EST Office Visit [facility] [address] [id number] [place] [address] [place] [address] [phone] Return in about 6 months (around 02/19/2025).[facility] Children's Pediatric ENTComment on above:Return in about 6 months (around 02/19/2025).Start: 02-22-2025 End: 88-57-6498Hswnnee encounter aragqakfv97/12/2025 1:00 PM EST Office Visit [facility] [address] [place] [address] Serene Joseph NP [address] [place], [place] [id number] [facility] CenterComment on above: ArrivedStart: 02-20-2025 End: 07-77-5848Nmrrcmm encounter jysrlnlpf03/10/2025 11:00 AM EST Office Visit Division of Colon & Rectal Surgery [address] [address] Yvette Mar, NEWS WRITER-YARN WORKER [address] [place] [address] Division of Colon & Rectal SurgeryStart: 01-27-2025 End: 53-98-7521XCQ panel - Blood by Automated countCBC Lab Routine Microcytic anemia Expected: 01/27/2025 (Approximate), Expires: 01/27/2026[facility] Work Phone: Comment on above:Expected: 01/27/2025 (Approximate), Expires: 01/27/2026Start: 01-27-2025 End: 14-42-1911Teaufaai [Mass/volume] in Serum or PlasmaFerritin Lab Routine Microcytic anemia Expected: 01/27/2025 (Approximate), Expires: 01/27/2026[facility] HealthcareComment on above:Expected: 01/27/2025 (Approximate), Expires: 01/27/2026Start: 01-27-2025 End: 63-72-5665Oaen + transferrin + TIBCIron + transferrin + TIBC Lab Routine Microcytic anemia Expected: 01/27/2025 (Approximate), Expires: 01/27/2026[facility] HealthcareComment on above:Expected: 01/27/2025 (Approximate), Expires: 01/27/2026Start: 01-27-2025 End: 41-34-7888Opqtaot encounter ragfuvqjm45/17/2025 9:30 AM EDT Office Visit [address] [place] [phone] Chey Aragon MD [address] [place] [address] ArrivedUF Health Flagler HospitalComment on above:Arrived Start: 01-17-2025 End: 05-66-3248Etffgiqxmzf surg ileostomy/jejunostomy non-tubeILEOSTOMY JEJUNOSTOMY NON-TUBE LAPAROSCOPIC Anorectal stricture Crohn's disease of both small and large intestine with complication 01/17/2025 12:00 PM EDTOSU [facility] MA[facility] ORStart: 01-17-2025 End: 95-06-2796Tbkvbjafrj and management of inpatientCCCT PERIOPComment on above:Anorectal strictureILEOSTOMY JEJUNOSTOMY NON-TUBE LAPAROSCOPICStart: 01-05-2025 End: 26-53-4505Nxlxeyblom consultationComprehensive Pre Anesthesia Center at [facility]: 01-02-2025 End: 02-99-2302Njjerzjl Support Egjmmjbhq71/22/2025 1:00 PM EDT Clinical Support Encounter [facility] [place] [address] [place] [address] [facility] at [facility]: 12-26-2024 End: 56-25-4141Plmngtu encounter zmlbajeii38/15/2025 10:30 AM EDT Office Visit Division of Colon & Rectal Surgery [address] [place] [phone] Yvette Mar NEWS WRITER-YARN WORKER [address] [place] [address] Division of Colon & Rectal SurgeryStart: 18-52-2440MIAVW-19 VACCINE ( season)COVID-19 VACCINE ( season)[facility] Hospitaltart: 90-65-6597Fjnzgbelo vaccinationFulton State HospitalStart: 12-09-2024 End: 53-91-8217Ywznogrznuxl consultation with bnwpnwf3812/09/2024 10:00 AM EDT Telemedicine [facility] [address] [place] [address] Milind Fitch, NEWS WRITER-YARN WORKER [address] [place] [phone] [facility] Milroytart: 45-46-4827Ddaqoevch vaccinationFlu vaccine (#1)[facility]Start: 11-08-2024 End: 98-77-4367Tqsevgfdm to same day surgery buolph5711/08/2024 11:15 AM EDT - 11/08/2024 12:45 PM EDT Surgery CCCT PERIOP [address] [place] [address] 1249 Clifford Rodas MD [address] [place] [address] EXAM UNDER ANESTHESIA ANORECTALCCCT PERIOP Comment on above:EXAM UNDER ANESTHESIA ANORECTALStart: 11-08-2024 End: 96-47-5780Btqty xm surg req anes general spi/edrl dxEXAM UNDER ANESTHESIA ANORECTAL Crohn's disease of both small and large intestine with complication 11/08/2024 11:15 AM EDTOSAN [facility] ORStart: 11-08-2024 End: 85-61-8826Ydfxhokqudifa flx dx w/collj spec br/wa if pfrmdSIGMOIDOSCOPY DIAGNOSTIC Crohn's disease of both small and large intestine with complication 11/08/2024 11:15 AM EDENCOM[facility] MAIN ORStart: 86-91-4789Wkywnicdcj hospital visit by mreavdgfu26/29/2025 9:15 AM EDT Hospital Encounter CCCT PERIOP [address] [place] [address] Clifford Rodas MD [address] [place] [address] Crohn's disease of both small and large intestine with complicationCCCT PERIOPComment on above: Crohn's disease of both small and large intestine with complicationStart: 10-26-2024 End: 06-12-4712Xfpjvxgkgm zufpcjdepern15/16/2025 3:00 PM EDT Pre-Operative Nurse Assessment [facility] at [facility] [address] [place] [address] Clifford Rodas MD [address] [place] [address] [facility]: 10-24-2024 End: 21-69-2453XR enterographyCT ENTEROGRAPHY Imaging Routine Crohn's disease of both small and large intestine with complicationExpected: 10/24/2024, Expires: 10/17/2025[facility]umbullComment on above:Expected: 10/24/2024, Expires: 10/17/2025Start: 10-17-2024 End: 43-00-7010Abbtqtadfouhlzxlgd ( test) [Presence] in UrineHCG QUALITATIVE, URINE Fluids Routine Crohn's disease of both small and large intestine with complication Expected: 10/17/2024, Expires: 10/17/2025[facility] TrumbullComment on above:Expected: 10/17/2024, Expires: 10/17/2025Start: 10-17-2024 End: 58-25-9921Clbrakr encounter /07/2025 10:30 AM EDT Office Visit Division of Colon & Rectal Surgery [address] [facility] [place] [address] Clifford Rodas MD [address] [place] [address] Division of Colon & Rectal SurgeryStart: 09-29-2024 End: 14-04-9790Eoahwhg encounter bpfsyniix16/19/2025 1:45 PM EDT Office Visit KALA ALVARADO [address] [address] Daniela Beckford [address] [place] [address] KALA ESTEBANYStart: 09-26-2024 End: 79-44-7210IK Chest 2 [facility] Work Phone: Comment on above:Expected: 09/26/2024, Expires: 09/26/2025Start: 09-22-2024 End: 02-69-1828Ercozqf encounter iwmhehahz88/12/2025 2:30 PM EDT Office Visit [facility] [address] [place] [address] Milind Fitch, NEWS WRITER-YARN WORKER [address] [place] [address] [facility] Lexie Start: 09-22-2024 End: 50-43-6212VAYMVYPGZSNIH ACIDParma Community General HospitalComment on above: Expected: 09/22/2024, Expires: 09/22/2025Start: 09-22-2024 End: 15-06-0906QGGGEPI D (25-HYDROXY,TOTAL)[facility] TrumbullComment on above:Expected: 09/22/2024, Expires: 09/22/2025Start: 09-22-2024 End: 15-01-9666UUSH, SERUMParma Community General HospitalComment on above:Expected: 09/22/2024, Expires: 09/22/2025Start: 08-01-2024 End: 84-24-0756Wxbunuc encounter gxwgugacm73/21/2025 6:00 PM EDT Office Visit [facility] FNR [address] [place] [address] Katie Aceves NP [address] [place], [place] [phone] [facility]AL[facility] FNR FMComment on above:ArrivedStart: 07-20-2024 End: 96-15-6530IL Head WO contrastCT head wo IV contrast Imaging Routine Nonintractable episodic headache, unspecified headache type Expected: 07/20/2024, Expires: 07/20/2025[facility] Work Phone: Comment on above:Expected: 07/20/2024, Expires: 07/20/2025Start: 07-15-2024 End: 98-94-3254Iekysuk encounter bozahttrq34/04/2025 3:30 PM EDT Office Visit [facility] FNR FM [address] [place] [address] Chey Aragon MD [address] [place], [place] [phone] ArrivedNOMS FNR FMComment on above:ArrivedStart: 06-22-2024 End: 63-57-7610Jfjwlmj encounter epvywvqyj62/12/2025 12:30 PM EDT Appointment ENT Clinic [address] [place] [address] Danny Lee MD Otolaryngology Section [address] [address] [facility]: 06-[facility]2024 End: 93-07-7459FL MFM with or without consultUS MFM with or without consult Imaging Routine Maternal Crohn's disease affecting in second trimester ([facility]) History of chronic ulcerative colitis Expected: 06/01/2024 (Approximate), Expires: 06/01/2024[facility] Work Phone: comment on above:Expected: 06/01/2024 (Approximate), Expires: 06/01/2024Start: 06-01-2024 End: 38-72-9121Igidbzz encounter xgqkbvdog02/19/2025 10:30 AM EST Office Visit [facility] FNR FM [address] [place] [phone] Serene Alfred NP [address] [place] [address] [facility] FNR FMStart: 05-17-2024 End: 49-27-8092Jkeoekz encounter mslcvywgw90/04/2025 3:15 PM EST Office Visit [facility] FM [address] [place] [address] [phone] Aceves NP [address] [place] [address] ArrivedNOMS FNR FMComment on above:ArrivedStart: 05-10-2024 End: 54-33-9325Zdvzzhydu to same day surgery gwecso4005/10/2024 1:35 PM EST - 05/10/2024 3:25 PM EST Surgery [facility] [address] [place] [address] Danny Lee MD Otolaryngology Section [address] [place] [address] ENDOSCOPY, BILATERAL NOSE, DIAGNOSTICAlpha Surgery CenterComment on above: ENDOSCOPY, BILATERAL NOSE, DIAGNOSTICStart: 05-10-2024 End: 16-20-0297Vqohxyl nasal hemorrhage anterior simpleSIMPLE CONTROL OF EPISTAXIS Chronic maxillary sinusitis Epistaxis 05/10/2024 1:35 PM EST [facility] CenterStart: 05-10-2024 End: 28-05-4877LnozajlvuojwaTKUHVSYPFQIQK, USING PAPER PATCH IF INDICATED Chronic maxillary sinusitis Epistaxis 05/10/2024 1:35PM [facility] CenterStart: 05-10-2024 End: 45-55-9896Bxtsv endoscopy diagnostic uni/bi spxENDOSCOPY, NOSE, DIAGNOSTIC Chronic maxillary sinusitis Epistaxis 05/10/2024 1:35 PM [facility] CenterStart: 05-10-2024 End: 29-83-5245Xkl/sinus ndsc max antrost w/rmvl tiss max sinusMAXILLARY ANTROSTOMY, WITH TISSUE REMOVAL Chronic maxillary sinusitis Epistaxis 05/10/2024 1:35 PM [facility] CenterStart: 05-10-2024 End: 56-45-5333Rnypuhebjjlievq exam under general anesthesiaEXAM UNDER ANESTHESIA, EAR, BILATERAL Chronic maxillary sinusitis Epistaxis 05/10/2024 1:35 PM [facility] CenterStart: 47-51-1421Kqihmsusom hospital visit by vvpzqnewd72/28/2025 1:35 PM EST Hospital Encounter [facility] [address] [phone] Danny Lee MD Otolaryngology Section [address] [address] [facility] CenterStart: 05-04-2024 End: 26-73-3808Xoxpfyh encounter /22/2025 11:30 AM EST Appointment [facility] [address] [address] Danny Lee MD Otolaryngology Section [address] [address] Discharge Disposition: [facility] CenterStart: 04-27-2024 End: 44-77-2738FL MFM with or without consultUS MFM with or without consult Imaging Routine Maternal Crohn's disease affecting in second trimester ([facility]) Expected: 04/27/2024 (Approximate), Expires: 04/27/2024[facility] Work Phone: comment on above:Expected: 04/27/2024 (Approximate), Expires: 04/27/2024Start: 64-79-8094Qymzfbu ScreeningTobacco ScreeningCommunity Memorial Hospital SystemStart: 03-22-2024 End: 79-90-4801Rpsyuvlzp to same day surgery urstao1003/22/2024 2:30 PM EST - 03/22/2024 4:00 PM EST Surgery [facility] [address] [address] Danny Lee MD Otolaryngology Section [address] [place] [address] ENDOSCOPY, BILATERAL NOSE, DIAGNOSTICWesterville Surgery CenterComment on above: ENDOSCOPY, BILATERAL NOSE, DIAGNOSTICStart: 17-42-2686Dbnmkcbgko hospital visit by /10/2024 2:30 PM EST Hospital Encounter [facility] [address] [address] Danny Lee MD Otolaryngology Section [address] [address] [facility] CenterStart: 03-22-2024 End: 37-04-1020Abodphc nasal hemorrhage anterior simpleWesterville Surgery CenterStart: 03-22-2024 End: 23-94-8719PowzbcjfnbzraYuusysbrtzc Surgery CenterStart: 03-22-2024 End: 59-30-1452Oyftg endoscopy diagnostic uni/bi spxWesterville Surgery Center Start: 03-22-2024 End: 64-66-5722Vcc/sinus ndsc max antrost w/rmvl tiss max sinusFall Brancherville Surgery CenterStart: 03-22-2024 End: 55-78-6161Yacqilaeelkkvel exam under general anesthesiaFall Brancherville Surgery CenterStart: 02-16-2024 End: 73-24-8977RP Sinuses WO contrastCT Sinuses Stealth without Contrast Imaging Routine Chronic sinusitis, unspecified location Expected: 02/16/2024 (Approximate), Expires: 02/15/2025[facility] Work Phone: Comment on above:Expected: 02/16/2024 (Approximate), Expires: 02/15/2025Start: 02-10-2024 End: 05-30-8871Bkqozhl encounter amtmpcswg10/30/2024 10:30 AM EDT Office Visit [facility] FNR [address] [place] [address] Serene Alfred NP [address] [place], [place] [address] [facility] BENJAMINR Comment on above:ArrivedStart: 01-27-2024 End: 654396-nrcrpgxpjpqmxw D3 [Mass/volume] in Serum or PlasmaVitamin D 25 hydroxy Lab Routine Vitamin D deficiency Expected: 01/27/2024 (Approximate), Expires: 01/26/2025[facility] HealthcareComment on above:Expected: 01/27/2024 (Approximate), Expires: 01/26/2025Start: 01-27-2024 End: 63-20-1711SYY W Auto Differential panel - BloodCBC and differential Lab Routine Encounter for wellness examination in adult Microcytic anemia Expected: 01/27/2024 (Approximate), Expires: 01/26/2025[facility] HealthcareComment on above: Expected: 01/27/2024 (Approximate), Expires: 01/26/2025Start: 01-27-2024 End: 46-15-2723Eahrhsftx (Vitamin B12) [Mass/volume] in Serum or PlasmaVitamin B12 Lab Routine Other fatigue Expected: 01/27/2024 (Approximate), Expires: 01/26/2025[facility] HealthcareComment on above:Expected: 01/27/2024 (Approximate), Expires: 01/26/2025Start: 01-27-2024 End: 92-73-0959Vsaqarouphgjn metabolic 2000 panel - Serum or PlasmaComprehensive metabolic panel Lab Routine Encounter for wellness examination in adult Gastroesophageal reflux disease without esophagitis Expected: 01/27/2024 (Approximate), Expires: 01/26/2025[facility] Work Phone: Comment on above:Expected: 01/27/2024 (Approximate), Expires: 01/26/2025Start: 38-25-1616TLD Iron StudiesIBD Iron StudiesNatCleveland Clinic Children's Hospital for Rehabilitationtart: 01-27-2024 End: 45-21-8893Ttbo + transferrin + TIBCIron + transferrin + TIBC Lab Routine Microcytic anemia Expected: 01/27/2024 (Approximate), Expires: 01/26/2025[facility] HealthcareComment on above:Expected: 01/27/2024 (Approximate), Expires: 01/26/2025Start: 01-27-2024 End: 29-88-8682XRT W/REFLEX TO FT4TSH W/REFLEX TO FT4 Lab Routine Encounter for wellness examination in adult Other fatigue Expected:01/27/2024 (Approximate), Expires: 01/26/2025[facility] HealthcareComment on above:Expected: 01/27/2024 (Approximate), Expires: 01/26/2025Start: 01-27-2024 End: 66-85-0413Ecsdihu encounter pazvksmfm40/16/2024 10:00 AM EDT Office Visit NOMS FNKwabena FM [address] [place] [address] Serene Alfred NP [address] [place] [address] [facility] STEPHANIE FMComment on above:ArrivedStart: 74-36-1772TRRVH-19 VACCINE ( season)COVID-19 VACCINE ( season)[facility] Hospitaltart: 45-18-7571Iaexbvcro vaccinationOSCleveland Clinic [facility]view Hospital Start: 10-22-2023 End: 04-82-1002Dhsdzrmmrgkn consultation with eqraqwp9110/22/2023 9:30 AM EDT Telemedicine [facility] [address] [facility] [place] [address] Milind Fitch, NEWS WRITER-YARN WORKER [address] [place] [address] [facility] Milroytart: 76-21-7946NIvA,Tdap and Td Vaccines (7 - Td or Tdap) DTaP,Tdap and Td Vaccines (7 - Td or Tdap)[facility] SystemStart: 65-25-9860WDbA/Tdap/Td vaccine (7 - Td or Tdap)DTaP/Tdap/Td vaccine (7 - Td or Tdap)[facility] CampusStart: 58-29-7367ZPlK/Tdap/Td VACCINES (7 - Td or Tdap) DTaP/Tdap/Td VACCINES (7 - Td or Tdap)[facility] Centertart: 74-59-8670Adcryvx vaccinationTETANUSOSLima City Hospitaltart: 08-06-2023 End: 06-69-4576GWRXUZLLHOTK, STOOLCALPROTECTIN, STOOL Fluids Routine Crohn's disease in remission Expected: 08/06/2023, Expires: 08/05/2024OSCleveland Clinic Fairview HospitalComment on above:Expected: 08/06/2023, Expires: 08/05/2024Start: 08-06-2023 End: 01-98-2121VQ.doppler Lower extremity vein - leftVASC DUPLEX VENOUS EXTREMITY LOWER LEFT Imaging STAT Left leg swelling Expected: 08/06/2023, Expires: 08/05/2024OSCleveland Clinic Fairview HospitalComment on above:Expected: 08/06/2023, Expires: 08/05/2024Start: 07-03-2023 End: 32-34-3771Sinzkra encounter uoatmsldf68/22/2024 3:00 PM EDT Appointment [facility] [address] [place] [address] [address] [place] [address] US ImagingStart: 06-01-2023 End: 89-91-9030Qlltsid encounter cqdkdcugf10/19/2024 6:30 PM EST Routine [facility] OB [address] [place] [address] Alfredo Duong, CNM [address] [place] [address] [facility] FNR OBStart: 05-29-2023 End: 21-81-2426Xgbtkel encounter baxmzfirm97/16/2024 2:45 PM EST Appointment [facility] [address] [facility] [place] [address] [phone] [place] [address] US ImagingStart: 05-26-2023 End: 55-55-4730Tjghqmh encounter wrhtaifoi30/13/2024 7:30 PM EST Office Visit [facility] FM [address] [place] [address] [phone], Sarah, NP [address] [place] [address] ArrivedNOMS FNR FMComment on above:ArrivedStart: 04-29-2023 End: 90-56-4754Lrtajxl encounter eiliujiqq89/17/2024 10:00 AM EST Office Visit [facility] [address] [place] [address] Teresa Gerber, NEWS WRITER-YARN WORKER [address] [place] [address] [facility] Lexie Start: 04-24-2023 End: 72-92-2146Zjlhqgf encounter procedureProMedica [facility] US ImagingStart: 04-03-2023 End: 33-35-0568Lfslpdiv Support Vjipjiayz59/22/2023 11:00 AM EST Clinical Support Encounter [facility] [address] [place] [address] Csnofxinrwhm [facility]el Disease Center Milroytart: 89-89-0128WOC Iron StudiesIBD Iron StudiesNationHolmes County Joel Pomerene Memorial Hospitaltart: 02-25-2023 End: 08-37-1256GBTGNUIIRLFF, STOOLCALPROTECTIN, STOOL Fluids Routine Crohn's disease of both small and large intestine with complication Expected: 02/25/2023, Expires: 02/26/2024OSCleveland Clinic Fairview HospitalComment on above: Expected: 02/25/2023, Expires: 02/26/2024Start: 02-25-2023 End: 09-62-9779DVJ A AB, TOTAL (IGG+IGM)HEP A AB, TOTAL (IGG+IGM) Lab Routine Crohn's disease of both small and large intestine with complication Expected: 02/25/2023, Expires: 02/26/2024[facility] HospitalComment on above: Expected: 02/25/2023, Expires: 02/26/2024Start: 02-25-2023 End: 02-26-2024M TUBERCULOSIS BY QUANTIFERON, [facility] Comment on above:Expected: 02/25/2023, Expires: 02/26/2024Start: 02-25-2023 End: 98-12-7705BBDDZOXGUO METHYL-TRANSFERASEParma Community General HospitalComment on above:Expected: 02/25/2023, Expires: 02/26/2024Start: 02-25-2023 End: 36-21-9804ONIN, SERUMParma Community General HospitalComment on above:Expected: 02/25/2023, Expires: 02/26/2024Start: 02-18-2023 End: 89-19-0251Jytruav encounter procedureGI [facility] CampusStart: 01-26-2023 End: 76-13-8445Sxlsmdce [Mass/volume] in Serum or PlasmaNationCherrington HospitalComment on above:One Time for 1 Occurrences starting 01/26/2023 until 01/26/2023Expected: 01/26/2023 (Approximate), Expires: 01/27/2024Start: 01-26-2023 End: 43-33-2019Yuekzom encounter procedureENT Clinic [facility] HospitalStart: 01-20-2023 End: 62-68-4108Kmvhirl encounter wifgykxri90/10/2023 1:00 PM EDT Appointment Hematology[facility]Oncology Clinics [address] [place], [place] [address]Jenny [address] [place] [address] Martha Hatfield MD [address] [place], [place] [phone] Hematology/Oncology ClinicsStart: 41-81-6630ZUX TDM Annual Screening UstekinumabIBD TDM Annual Screening UstekinumabNationHolmes County Joel Pomerene Memorial Hospitaltart: 01-05-2023 End: 12-43-9935Mzxgveict to same day surgery centerPerioperative ServicesComment on above:ETHMOID SINUS SURGERY bilateralStart: 01-05-2023 End: 63-44-0710Iyrod/sinus ndsc w/partial ethmoidectomyNCKaiser Permanente Medical Center [facility] - [facility] Start: 01-05-2023 End: 60-35-4984Epm/sinus ndsc max antrost w/rmvl tiss max sinusNCKaiser Permanente [facility] Center [facility] - ORStart: 01-05-2023 End: 60-18-2403Nlsgjxe cptr asstd px cranial intraduralNCKaiser Permanente Medical Center [facility] - [place] Start: 51-20-3481Qeqxozaqvx hospital visit by physicianPerioperative Services Start: 01-05-2023 End: 92-00-3225Eoerpwu encounter iybqhrexp39/25/2023 10:[address] [place] [address] [place] [address] Discharge Disposition: HomeCT [facility] HospitalStart: 46-68-9374WVF on Biologics/Immunomodulators QuantiferonIBD on Biologics/Immunomodulators QuantiferonNationHolmes County Joel Pomerene Memorial Hospitaltart: 85-78-1912MGMVJ-19 Vaccine ( season)COVID-19 Vaccine ( season)[facility] Start: 22-55-2337Rwdvjqduc vaccinationNationwide UN[facility] Children[facility] Psychiatric Centertart: 11-59-3825Zelkcrbsq for malignant neoplasm of cervixOSU [facility] Start: 04-80-2569KDL 25-OH Vitamin DIBD 25-OH Vitamin DNationwide UNM Children's Psychiatric Centertart: 34-01-2993UUJ 25-OH Vitamin DIBD 25-OH Vitamin DNationwide UN[facility] Psychiatric Centertart: 85-60-9499SKG Annual VisitIBD Annual VisitNationwide UNM Children's Psychiatric Centertart: 07-25-2022 End: 98-49-1535Kaorlgk encounter cuaxwoqrr15/14/2023 Appointment Rheumatology [facility] HospitalStart: 07-25-2022 End: 14-68-5598Uappwyg encounter avfkprbkf46/14/2023 Appointment Gastroenterology Javier Agee MD [address] [place] [address] [facility]: 14-73-8283WLX CalprotectinIBD CalprotectinNationHolmes County Joel Pomerene Memorial Hospitaltart: 53-87-1638OER Surveillence Colonscopy 8 years after diagnosisIBD Surveillence Colonscopy 8 years after diagnosisNationHolmes County Joel Pomerene Memorial Hospitaltart: 77-01-8118TAR TDM Post Induction UstekinumabIBD TDM Post Induction UstekinumabNationHolmes County Joel Pomerene Memorial Hospitaltart: 05-05-2022 End: 69-37-0650Miqlvox encounter ywkcbdtwk86/23/2023 Appointment Ent- Otolaryngology Danny Lee MD Otolaryngology Section [address], [place] [address] [facility]NT Clinic [facility] HospitalStart: 12-12-2021 Influenza vaccinationINFLUENZA VACCINE (#1)[facility] Centertart: 83-11-3352EBYWR-19 Vaccine (2 - Misael risk 3-dose series)COVID-19 Vaccine (2 - Misael risk 3-dose series)[facility]: 60-60-3386CSZNV-19 Vaccine (2 - Misael risk series)COVID-19 Vaccine (2 - Misael risk series)[facility] Hospitaltart: 31-83-3872Aecwfbozc vaccinationFlu vaccine (#1)[facility]: 41-97-7258WPoB,Tdap and Td Vaccines (1 - Tdap)DTaP,Tdap and Td Vaccines (1 - Tdap)[facility] SystemStart: 79-20-0739EYoW/Tdap/Td vaccine (1 - Tdap)DTaP/Tdap/Td vaccine (1 - Tdap)[facility]: 2020 Pneumococcal 0-49 years Vaccine (1 of 2 - PCV)Pneumococcal 0-49 years Vaccine (1 of 2 - PCV)[facility]: 75-92-1374Tgecikarepbw vaccination Pneumococcal Vaccine (1 of 2 - PCV)[facility] Hospitaltart: 46-75-1192VMLWOSDUMSOJ VACCINE SERIES (1 of 2 - PCV)PNEUMOCOCCAL VACCINE SERIES (1 of 2 - PCV)[facility] Hospitaltart: 56-84-4610Gvuehrjoqzou Vaccine: Pediatrics (0 to 5 Years) and At-Risk Patients (6 to 64 Years) (1 of 2 - PCV) Pneumococcal Vaccine: Pediatrics (0 to 5 Years) and At-Risk Patients (6 to 64 Years) (1 of 2 - PCV)[facility] HospitalStart: 75-01-7031Nurffhjn vaccine (1 of 2) Shingles vaccine (1 of 2)[facility]: 66-26-4264Uwijvz vaccine hzv live for subcutaneous useZOSTER (SHINGLES) VACCINE (1 of 2)[facility] Hospitaltart: 88-75-8530Coyuv BMI ScreeningAdult BMI ScreeningCommunity Memorial Hospital SystemStart: 33-62-2944Tfqvbunao C screeningHepatitis C screenWayne Healthcare Main CampusStart: 54-78-6923Skurxqfff vaccine (2 of 2 - 2-dose childhood series) Varicella vaccine (2 of 2 - 2-dose childhood series)[facility] CampusStart: 01-54-3763RMDRYIIVI VACCINES (2 of 2 - 2-dose childhood series)VARICELLA VACCINES (2 of 2 - 2-dose childhood series)[facility] HospitalStart: 22-05-9324YFPI (1 of 2 - Patient Seeks Protection)MENB (1 of 2 - Patient Seeks Protection)[facility] HospitalStart: 51-11-4389Vosmfgmsmqmaq B Vaccine (1 of 2 - Patient Seeks Protection)Meningococcal B Vaccine (1 of 2 - Patient Seeks Protection)[facility] HospitalStart: 2017 Meningococcal B Vaccine (1 of 2 - Standard)Meningococcal B Vaccine (1 of 2 - Standard)[facility] HospitalStart: 75-31-3335Zyomdqmhb for Chlamydia trachomatisProtestant Hospital HealthStart: 34-84-8455GNO screeningWayne Healthcare Main CampusStart: 87-70-5245YUY Vaccine (1 - 3-dose series)HPV Vaccine (1 - 3-dose series) [facility] HospitalStart: 19-94-8329Gxhydhlzvqs for human papillomavirusHPV VACCINE ADOL (1 - 3-dose series)[facility] Start: 15-75-2145Alnsdtlwfwqnaidz Transition AssessmentGastroenterology Transition AssessmentNationHolmes County Joel Pomerene Memorial Hospitaltart: 23-29-1621Zsuuza Transition AssessmentHemonc Transition AssessmentNationCherrington Hospital Start: 35-73-0169Fcghexihllcj Transition AssessmentRheumatology Transition AssessmentNatCleveland Clinic Children's Hospital for Rehabilitationtart: 70-28-6760Xyohpljpcz Screen Depression ScreenWayne Healthcare Main CampusStart: 39-04-1137Pekdfxymwt ScreeningDepression ScreeningProMedica Health SystemStart: 38-89-5039Povknbm ScreeningTobacco ScreeningProSt. Vincent'S St. Clair Health SystemStart: 47-80-0713FTA vaccine (1 - 2-dose series) HPV vaccine (1 - 2-dose series)[facility] CampusStart: 84-42-9879YUK Vaccine (1 - Risk 3-dose series)HPV Vaccine (1 - Risk 3-dose series)[facility] Hospitaltart: 68-55-6495Yjbasxcidgj for human papillomavirusHPV VACCINE ADOL (1 - 2-dose series)[facility] Hospitaltart: 46-42-1363WTAZ (1 of 2 - Risk Bexsero 2-dose series)MENB (1 of 2 - Risk Bexsero 2-dose series)[facility] Hospitaltart: 28-14-0572BVM Vaccine (1 - Risk 3-dose series)HPV Vaccine (1 - Risk 3-dose series)[facility] Hospitaltart: 2010 HPV VACCINES (1 - 2-dose series)HPV VACCINES (1 - 2-dose series)[facility] Hospitaltart: 36-30-9319Xmovhekubmbr 0-64 years Vaccine (1 - PCV) Pneumococcal 0-64 years Vaccine (1 - PCV)[facility] CampusStart: 11-04-2007 Pneumococcal vaccinationNationHolmes County Joel Pomerene Memorial Hospitaltart: 11-04-2007 PNEUMOCOCCAL VACCINE SERIES (1 - PCV)PNEUMOCOCCAL VACCINE SERIES (1 - PCV)[facility] Hospitaltart: 77-76-5330VQRYCDBFSSPD VACCINE SERIES (1 of 2 - PCV) PNEUMOCOCCAL VACCINE SERIES (1 of 2 - PCV)[facility] Hospitaltart: 67-39-0077WMNLW-19 Vaccine (1)COVID-19 Vaccine (1)[facility] CampusStart: 2002 Dental Hygiene (Due every 6 months)Dental Hygiene (Due every 6 months)[facility] Hospitaltart: 88-42-5302Xuemkvauz vaccine (1 of 2 - 2-dose childhood series)Varicella vaccine (1 of 2 - 2-dose childhood series)[facility]: 01-06-0821Ktuuoy Oral ExamDental Oral ExamNatCleveland Clinic Children's Hospital for Rehabilitationtart: 90-42-2574Dnxlgyfsd C screeningHepatitis C screenWayne Healthcare Main Campus Start: 40-08-8668Rradeyrii for Chlamydia trachomatisGONORRHEA SCREENParma Community General Hospital End: 01-26-6227Lyvj-Thyroglobulin AntibodyWayne Healthcare Main Campus Work Phone: comment on above:Once for 1 Occurrences starting 07/09/2021 until 07/09/2021 End: 56-22-1195HTE W/AUTOMATED DIFF, REFLEX TO MANUALCBC W/AUTOMATED DIFF, REFLEX TO MANUAL Lab Routine Iron deficiency One Time for 1 Occurrences starting 01/26/2023 until 01/26/2023[facility] Work Phone: comment on above:One Time for 1 Occurrences starting 01/26/2023 until 01/26/2023 End: 94-68-4829Qs abdomen & pelvis w/o contrst 1/> body reBon Genny [facility] HealthComment on above:1 Occurrences starting 10/26/2024 until 10/26/2024[facility] Lab Routine Family history of malignant neoplasm of breast Ordered:01/27/2025NOWY HealthcareComment on above:Ordered: 01/27/2025Excision excessive skin & subq tissue other area EXCISION, SKIN AND SUBCUTANEOUS TISSUE Sebaceous [facility] [place] End: 59-32-2400Khflxodqaugdfz serum [facility] Work Phone: comment on above:Once for 1 Occurrences starting 07/09/2021 until 07/09/2021 End: 38-31-6002Amjfhayqzhojau G [facility] CenterHall Work Phone: comment on above:Once for 1 Occurrences starting 07/09/2021 until 07/09/2021 End: 13-36-1937Cttbuppthn [facility]Hall Work Phone: combokv on above:Once for 1 Occurrences starting 07/09/2021 until 07/09/2021Nasal/sinus ndsc w/partial ethmoidectomyENDOSCOPY, NOSE, WITH ETHMOIDECTOMY Chronic sinusitis, unspecified locationInter-Community Medical Center - ORNsl/sinus ndsc max antrost w/rmvl tiss max sinusMAXILLARY ANTROSTOMY, WITH TISSUE REMOVAL Chronic sinusitis, unspecified locationInter-Community Medical [facility] - [place] End: 49-13-5272JUWNF OXIMETER - CONTINUOUSPULSE OXIMETER - CONTINUOUS Respiratory Care Routine Continuous until discontinued starting 03/22/2024 [facility] Work Phone: Comment on above:Continuous until discontinued starting 03/22/2024 End: 49-93-0126Rmwyj Pneumoniae Antibody [facility] Work Phone: comammq on above:Once for 1 Occurrences starting 07/09/2021 until 07/09/2021URG PATH REQUESTOSU [facility] - TrumbullComment on above:Release Upon Ordering for 1 Occurrences starting 11/18/2023, 1 completed SURG PATH REQUESTOSU [facility] Work Phone: comment on above:Release Upon Ordering for 1 Occurrences starting 11/02/2024, 1 completedSURG PATH REQUEST (Must Attach Requisition)[facility] TrumbullComment on above:Release Upon Ordering for 1 Occurrences starting 09/06/2024, 1 completed End: 51-45-8433NC Unspecified body regionUS IMAGING REGIONAL ANESTHESIA Imaging Routine One Time for 1 Occurrences starting 01/17/2025 until01/17/2025[facility] TrumbullComment on above:One Time for 1 Occurrences starting 01/17/2025 until 01/17/2025 Immunizations Immunization DateImmunizationNotesCare QaickkgrSaeuckpz00-05-5967pxjkruket B vaccine, adult dosageSarah Kampfer CLOTH DESIZING RANGE OPERATOR CHIEF Work Phone: [facility] HospitalRhyxihpdxb52-58-2761ezjvvbpnt B vaccine, adult dosageSarah Kampfer CLOTH DESIZING RANGE OPERATOR CHIEF Work Phone: [facility] HospitalBswjnspnlc93-62-5003awdlkfincn skin test; purified protein derivative solution, intradermalSarah Kampfer CLOTH DESIZING RANGE OPERATOR CHIEF Work Phone: [facility] HospitalCtcidxmcdp09-24-1111aldeyspdoe skin test; purified protein derivative solution, intradermalSarah Kampfer CLOTH DESIZING RANGE OPERATOR CHIEF Work Phone: [facility] HospitalLvdzearonf58-87-3796fddcqqenf, injectable, quadrivalent, preservative freeSarah Kampfer CLOTH DESIZING RANGE OPERATOR CHIEF Work Phone: [facility] HospitalVwmjqdgfbj63-65-6918ivljsmrio virus vaccine, unspecified formulationDanny Lee MD Work Phone: [facility]11-05-2021influenza, injectable, quadrivalent, preservative freeBrielle Teran [facility]11-05-2021influenza, seasonal, injectable, preservative free Brielle Teran [facility]11-05-2021influenza virus vaccine, unspecified formulationBrielle Valenzuelaofelia [facility] 52-43-2960vbgemqjlx, injectable, quadrivalent, preservative freeSarah Kampfer CLOTH DES[employer]ING RANGE OPERATOR CHIEF Work Phone: [facility] HospitalCntytidjdz93-09-1538pxgmqgdxv, injectable, quadrivalent, preservative freeMarybeth Nicolasger [facility] 55-44-8337vrcanxbod, injectable, quadrivalent, preservative freeMarybeth Nicolasger [facility]07-15-2019meningococcal oligosaccharide (groups A, C, Y and W-135) diphtheria toxoid conjugate vaccine (MCV4O)Brielle Teran [facility]09-28-2018influenza, injectable, quadrivalent, preservative freeMarybeth Jeffry [facility]09-28-2018 influenza, seasonal, injectable, preservative freeSarah Kampfer CLOTH DESIZING RANGE OPERATOR CHIEF Work Phone: [facility] HospitalLsglvsqulp05-87-3686chszimspg virus vaccine, live, attenuated, for intranasal useSullivan County Memorial Hospitalchanell Teran [facility]08-10-2018influenza, live, intranasal, quadrivalentSarah Kampfer CLOTH DESIZING RANGE OPERATOR CHIEF Work Phone: [facility] HospitalEnvfyydyjh83-40-0301zyzdqaofg, seasonal, injectable, preservative freeMarybeth Nicolasger [facility] 16-85-4566kjyfuafsdw skin test; purified protein derivative solution, intradermalOtilia Sinclair Work Phone: [facility] CampusDhtzgr03-12-9239cejwcxydv, seasonal, injectable, preservative freeMarybeth Slager [facility]12-05-2014 influenza, seasonal, injectable, preservative freeSarah Kampfer CLOTH DESIZING RANGE OPERATOR CHIEF Work Phone: [facility] HospitalRmbeonomae28-98-9002wlrsnaghqidcc polysaccharide (groups A, C, Y and W-135) diphtheria toxoid conjugate vaccine (MCV4P)Brielle Teran [facility]07-10-2014tetanus toxoid, reduced diphtheria toxoid, and acellular pertussis vaccine, adsorbedShamaaartichanell Jeffry [facility]01-23-2014influenza, injectable, quadrivalent, preservative freeBrielle Valenzuelaofelia [facility]08-28-2007 diphtheria, tetanus toxoids and acellular pertussis vaccineBrielle Teran RN [facility]08-28-2007measles, mumps and rubella virus vaccine Brielle Valenzuelaofelia [facility]08-28-2007poliovirus vaccine, inactivatedBrielle Jeffry [facility]10-07-2005influenza, seasonal, injectableBrielle Valenzuelaofelia [facility]12-02-2003 influenza virus vaccine, whole virusrajacobo Finneypfer CLOTH DES[employer]ING RANGE OPERATOR CHIEF Work Phone: [facility] HospitalYbhzzvlxxm61-92-9354geeixjdpx, seasonal, injectable, preservative freeBrielle Jeffry [facility] 63-46-2225jgvrvhjnqlnt conjugate vaccine, 7 valentBrielle Jeffry [facility]10-31-2003diphtheria, tetanus toxoids and pertussis vaccine Brielle Jeffry [facility]10-31-2003DTPMaryangeles Teran RN [facility]10-31-2003haemophilus influenzae type b vaccine, PRP-T conjugateRutgers - University Behavioral Healthcareaartichanell Jeffry [facility]10-31-2003 influenza virus vaccine, whole virusSarah Kampfer CLOTH DESIZING RANGE OPERATOR CHIEF Work Phone: [facility] HospitalHxphcjhhna91-44-2469rtbxzallh, seasonal, injectable, preservative freeBrielle Teran [facility] 71-00-5259yxqzhbaejmlj conjugate vaccine, 7 valentMarolamide Valenzuelaofelia [facility]07-28-2003measles, mumps and rubella virus vaccineRutgers - University Behavioral Healthcareolamide Jeffry [facility]07-28-2003varicella virus vaccineRutgers - University Behavioral Healthcareolamide Jeffry [facility]07-28-2003zoster vaccine, unspecified formulationSamilcar Solis MD Work Phone: [facility] - TrumbullLnzgci02-93-9003ihdquykpoi, tetanus toxoids and acellular pertussis vaccineMarolamide Teran [facility]02-19-2003haemophilus influenzae type b conjugate and Hepatitis B vaccineRutgers - University Behavioral Healthcareolamide Teran [facility]02-19-2003pneumococcal conjugate vaccine, 7 valentMarybeth Jeffry [facility] 79-89-9408facmkpsnto vaccine, inactivatedMarybeth Jeffry [facility]11-26-2002diphtheria, tetanus toxoids and acellular pertussis vaccine Brielle Jeffry [facility]11-26-2002haemophilus influenzae type b vaccine, PRP-T conjugateRutgers - University Behavioral Healthcareolamide Teran [facility] 29-41-5884qotsaqrosxjq conjugate vaccine, 7 valentMarybeth Jeffry [facility]11-26-2002poliovirus vaccine, inactivatedMarolamide Teran RN [facility]09-24-2002diphtheria, tetanus toxoids and acellular pertussis vaccineRutgers - University Behavioral Healthcareolamide ValenzuelaCleveland Clinic Foundation 09-51-7019xfhhkpugrxk influenzae type b vaccine, PRP-T conjugateBrielle Teran [facility]09-24-2002hepatitis B vaccine, pediatric or pediatric/adolescent dosageBrielle Teran [facility] 71-76-5956tbfmknszwi vaccine, inactivatedMarolamide Teran [facility]07-26-2002hepatitis B vaccine, pediatric or pediatric/adolescent dosage Brielle Teran [facility] Payers DatePayer CategoryPayerPolicy [id number]-hqj [id number] 2024Medicaid (Managed Care)[facility] [employer] [id number]5464-62-4160Hlxgouz Health Insurance [employer] [id number] 2023- [address] [place], [place] [id number]07326. Medicaid1.2.840.268190.1.13.693.2.7.3.117740.22220-32-9878Pvpt [facility] 1.2.840.043652.1.13.693.2.7.9.328922.155160.95439-08-8031Xsbseae Care (unspecified)[facility] P[facility] POS .[id number]38366.49964.92143-54-9978Zmbvclf 1.2.840.486197.1.13.161.2.7.3.459[id number] 2.16840.1.596720.3.57[id number] 2.840.1.303693.3.579.[id number] 2.840.1.371625.3.579.[id number] 2.840.1.435107.3.57[id number] 2.840.1.119129.3.579.2.64789-31-2887Tmacaqg46338112 2.840.1.184389.3.579.2.067576-71-9591Tfuhtfc93386624 2.16840.1.137486.3.579.2.662885-98-8730Ycrzzvs5140036 2.840.1.407174.3.579.2.734189-61-7630Jzindax0978289 2.840.1.522809.3.579.[id number] 2.16840.1.961954.3.579.2.51347-82-6507Nbrjgjt541353576 2.16840.1.725622.3.579.2.65976-71-7610Fjzdkgx043354384 2.16840.1.680942.3.579.2.38468-08-0316Vegzvva802583810 2.16840.1.078757.3.579.2.97575-06-9998Tgbvard365429131 2.16840.1.592426.3.579.2.90949-76-3070Sfcnrpj347036129 2.16840.1.586667.3.579.2.19975-54-0362Teugujg41632031 2.16840.1.756008.3.579.2.15251-66-1301Xvwwgqe333668115 2.840.1.351905.3.579.2.87335-84-2132Wzqqtuz779840418 2.840.1.874844.3.579.2.72589-31-8277Npnstde297165245 2.840.1.156834.3.579.2.39336-80-9488Bhhdwmw130087742 2.840.1.756781.3.579.2.[id number] 2.840.1.993027.3.579.2.46984-27-2771Dkhxudw821956452 2.840.1.425374.3.579.2.14552-86-0344Kzzrwgd963614330 2.840.1.511666.3.579.2.03530-02-2885Zouooto754406658 2.16840.1.628450.3.579.2.06106-64-1129Pdnutyt314357137 2.16840.1.190442.3.579.2.59028-49-9855Dczamqy776755409 2.16840.1.978873.3.579.2.97686-01-8895Fqyjwfv746573934 2.16840.1.692263.3.579.2.36567-57-7982Xskyrgb718640459 2.16.840.1.231541.3.579.2.91305-29-7006Bibivqc465506633 2.16.840.1.547489.3.579.2.37477-01-5498Okurmne427067691 2.16.840.1.654958.3.579.2.40596-83-5226Mxzowor424143108 2.16.840.1.986096.3.579.2.65735-05-9458Cckpivy833780300 2.16.840.1.078835.3.579.2.81530-13-7303Nwaeaem163640752 2.16.840.1.496018.3.579.2.29209-47-2375Edydcty12104789 2.16840.1.443716.3.579.2.412778-44-2770Qlgoebc43966799 2.16.840.1.993691.3.579.2.651632-69-6109Vzbgert87831345 2.16.840.1.932770.3.579.2.589206-96-7511Xfgfqie02526456 2.16.840.1.685286.3.579.2.713028-99-7160Iphnppl6568853 2.16.840.1.470593.3.579.2.281235-63-0487Rgpdbbt1511201 2.16.840.1.056196.3.579.2.055841-27-6655Wxqdept3986012 2.16.840.1.706988.3.579.2.428771-79-3724Htemcmi7581164 2.16.840.1.437100.3.579.2.738086-59-0113VhsoetpJHANJ3117588 1.2.840.211592.1.13.239.2.7.3.391264.97692-17-5384Keudbtx311210671715 1.2.840.522841.1.13.239.2.7.3.142178.427Nmwitzf69427264 2.16.840.1.779316.3.579.2.531 Social History DateTypeDetailFacilityStart: 09-11-2011 End: 70-47-1158Teleett smoking status NHISNever smoked tobaccoSalem City HospitalHummock [facility] Phone: start: 07-26-2014 End: 93-26-1144Evzlzed intakeCurrent non-drinker of alcohol (finding)[employer] Phone: start: 36-99-3872Nwn Assigned At BirthNot on fileAdmatic Phone: start: 02-28-2022 End: 33-38-7008Xliynwa use and exposureSmokeless tobacco non-userNationHolmes County Joel Pomerene Memorial Hospitaltart: 03-21-2022 End: 09-50-9513Jwxnkkg intakeEx-drinker (finding)[facility] Start: 03-21-2022 End: 30-48-3976Hpgifhy intakeNationHolmes County Joel Pomerene Memorial Hospitaltart: 08-26-2021 History SDOH Jligxqsoq1JfiopyrcsaHolmes County Joel Pomerene Memorial Hospitaltart: 19-92-5892Uyyqoau SDOH Food Xybmh8MzszjazswmHolmes County Joel Pomerene Memorial Hospitaltart: 09-82-1967Khhktua SDOH Transport Rtp9VmpzopcjauCleveland Clinic Children's Hospital for Rehabilitationtart: 05-17-2016 End: 37-16-5500Jtsfoky use panelNatCleveland Clinic Children's Hospital for Rehabilitationtart: 06-25-2022 How hard is it for you to pay for the very basics like food, housing, medical care, and heatingNot hard at allNatMetroHealth [facility](I/We) worried whether (my/our) food would run out before (I/we) got money to buy more.Never trueNationCherrington HospitalIn the past 12 months, was there a time when you were not able to pay the mortgage or rent on time?NoNationHolmes County Joel Pomerene Memorial Hospitaltart: 31-54-6159DnarbfiihPNBParma Community General HospitalAre you now , , , , never or living with a partner?Living with partnerNOWY HealthcareHow often to you have a drink containing alcohol?Never NOMS HealthcareDo you feel stress - tense, restless, nervous, or anxious, or unable to sleep at night because yourmind is troubled all the time - these days [OSQ]Not at allALTA VIEW HOSPITAL HealthcareStart: 87-91-5053Sywheby Commentcaffeine intake : coffeeALTA VIEW HOSPITAL HealthcareStart: 84-60-7177Ibsoxmf Commentcaffeine intake :[facility] HealthcareStart: 97-24-6555Etx Assigned [facility] Hospitaltart: 05-23-2012 End: 40-61-3663PwtGvnzoj (finding)[facility] Hospitaltart: 05-26-2024 Gender identityIdentifies as female gender (finding)[facility] Start: 05-12-7559Imdvhe orientationHeterosexual (finding)[facility] HospitalNEGATED: Highlighted rowStart: NINFHistory of tobacco usePassive smoker [facility] Medical Equipment Procedure CodeEquipment CodeEquipment Original TextEquipment IdentifierDates [id number]: 73-89-1982Mdpapne on above:Description: NaresStaplr Ta 90-3.5 - [id number]: 01-10-0468Kuecslj Floseal 5ml - [id number]_impStart: 75-15-6325Ezyqefs on above:Description: SinusStaplr Mlti Kristen 80- 3.8 - [id number]_akiDqayg: 62-36-2960Hps Mlti Kristen 80 3.8 - [id number] Start: 70-94-4213Ehj Mlti Kristen 80 3.8 - [id number]_pjoQieec: 35-77-1614[employer] [place] [employer] .6x9cm - [id number])[id number], 193360_[facility] FDAStart: 37-22-5432Adphnzv on above:Description: Site: Left EarSpng Surgifoam Ags Av 03-19 [id number]: 03-22-2024 Goals DatePatient GoalDesired Activity/StatePersonal health goal Functional Status RdqaCeibqxqdnvVfvcejNktqwfjh69-95-4720Rxrerlq Health Questionnaire 2 item (PHQ- 2) [Reported]NOMS Onrawkmajo24-23-5739Rap you deaf, or do you have serious difficulty hearingNo 01/17/2025 6:45 PM EDT Michael Brooks, DEEPTI [facility]10-07-2025Are you blind, or do you have serious difficulty seeing, even when wearing glassesNo 01/17/2025 6:45 PM EDT Michael Brooks RN [facility]10-07-2025Do you have serious difficulty walking or climbing stairsNo 01/17/2025 6:45 PM EDT Michael Brooks, DEEPTI [facility]10-07-2025Do you have difficulty dressing or bathingNo 01/17/2025 6:45 PM EDT Michael Brooks, DEEPTI [facility]10-07-2025Because of a physical, mental, or emotional condition, do you have difficulty doing errands alone such as visiting a physician's office or shoppingNo 01/17/2025 6:45 PM EDT Michael Brooks RN [facility]02-04-2025Total score [AUDIT-C]0 05/17/2024 1:56 PM EST Mychart, GenericMS Adnjysdxsz74-97-2782Njl often do you have a drink containing alcohol?Never 05/17/2024 1:56 PM EST Mychart, Generic NeverNOMS Xqklvdindn17-08-7597Tmzstimtuf statusPatient does not drink 05/17/2024 1:56 PM EST Mychart, Generic Patient does not drinkFulton State HospitalKgtekivirn19-01-5666Jxx often do you have 6 or more drinks on 1 occasion?Never 05/17/2024 1:56 PM EST Dawit MayoFulton State HospitalJdnnshslrm57-24-6237Thhsuou Health Questionnaire 2 item (PHQ-2) [Reported][facility] Mental Status NbfhMqjuzpenflFeltpmBvpussfq71-42-4668Ooopgyd of a physical, mental, or emotional condition, do you have serious difficulty concentrating, remembering, or making decisionsNo 01/17/2025 6:45 PM EDT Michael Brooks, RN [facility] Clinical Notes 08-06-2021 to 02-20-2025 Note Date & WxuwAoyeSjesaisr16-76-6573 History of Present illness Narrative* Chey Paula RN - 02/20/2025 1:00 PM EST WOC/ET Nursing Consult Note: Patient seen for continued issues with denuded edge of peristomal skinalong the mucocutaneous junction. She has photos, declines pouch change as she states she just changed yesterday. Her stoma is 35mm, she is using the ConvaTec 3.5mm depth cut to fit up to 45mm, suggested she try the next size down (cut to fit up to 35mm) and gave her some samples. Suggested also that she try adding an appliance belt immediate after pouch changes. She states understanding. documented in this encounterParma Community General Hospital11-10-2025 History of Present illness Narrative* Yvette Mar APRN-YARN WORKER - 02/20/2025 11:00 AM EST COLORECTAL SURGERY CRS Post-Operative Visit Patient: Sue Hatfield Date of Encounter: 02/20/25 Chief Complaint/Reason for today's visit: postoperative follow up History of Present Illness: Date of Surgery: 01/17/25 Surgery: laparoscopic creation of loop ileostomy Pathology: N/A Sue Hatfield is a 24yo femaile with Crohn's disease which has affected her anal region, colon and rectum. She has had ongoing difficulties with function and quality of life due to severe stricturing in the anal area. She had a prior ileocolic resection with anastomosis. For symptom relief, she elected to undergo surgery for a diverting stoma. She is now s/p laparoscopic creation of loop ileostomy on 01/17/25. She was discharged home on POD2 (01/19/25). She presents today for postoperative follow up. Of note, she contacted the CRS clinic on 01/25/25 reporting some peristomal skin irritation. She submitted a photo which appeared consistent with cutaneous candidiasis, and she was prescribed topicalnystatin powder PRN with pouch changes. She has been communicating with the stoma nurse regarding changing pouch brands. She is scheduled to see the C RN today (02/20/25). Interval History Since Surgery: Today, she reports feeling well overall. She denies abdominal pain.She endorses some minor irritation and itchiness around her stoma as well as some skin irritation and erythema. She is using nystatin powder with pouch changes but does not feel this has made much ofa difference. She states that sometimes the peristoma skin looking irritated and other times it does not. She is able to wear her pouch for about 3 days at a time. She empties her pouch about 6 timesper day but admits she empties the pouch before it becomes have full. She feels her output is stable. Stool consistency can vary between loose and watery to somewhat thicker, generally dependent uponwhat she eats. She is not taking any fiber supplements or antimotility medications. Denies bloody stools. Denies any drainage per anus. She feels she is staying well hydrated. She is drinking low/zero sugar salt balanced solutions in his limiting free water. She is making normal amounts of pale, yellow urine without difficulty. She denies dizziness or lightheadedness. She is drinking a protein shake daily. Denies chest pain, dyspnea, or BLE edema, erythema or calf tenderness. Denies fevers, chills or night sweats. Denies nausea or vomiting. She states she still has very little appetite which is baseline for her. She denies any worsening appetite since surgery. Her weight is stable. She also endorses low energy level which is baseline for her. Some days, she has very little energy and other days, she states she feels completely normal. She restarted her Skyrizi 2 days ago (02/18/25). Georgie a follow up with the [facility] scheduled on 03/20/25. Physical Exam: BP 111/58 (BP Location: Left arm, BP Position: Sitting) Pulse 67 Temp 98.2 F (36.8 C) (Temporal) Resp 17 Ht 1.62 m (5' 3.78 ) Comment: w/o shoes Wt 67.3 kg (148 lb 4.8 oz) Comment: w/o shoes SpO2 100% Comment: room air BMI 25.63 kg/m Smoking Status Never Wt Readings from Last 1 Encounters: 02/20/25 67.3 kg (148 lb 4.8 oz) ; ; Body mass index is 25.63 kg/m . General Appearance: awake and alert, well-appearing, in no acute distress, well- hydrated, and well-nourished Respiratory: respirations even and unlabored, no evidence of distress Cardiac: regular rate Abdomen: soft, non-tender, non-distended, and no palpable masses. Stoma to right abdomen pink and viable with brown effluent in ostomy appliance. No palpable hernia. Diagnostic Tests/Imaging Reviewed for Today's Visit: CBC Lab Results Component Value Date WBC 8.36 01/19/2025 HGB 11.8 01/19/2025 HCT 36.6 01/19/2025 PLATELET 232 01/19/2025 MCV 88.4 01/19/2025 EDIF Lab Results Component Value Date RBCDISTRIBU 13.8 01/19/2025 PLATELET 232 01/19/2025 MPV 10.4 01/19/2025 Lab Results Component Value Date SODIUM 140 01/19/2025 POTASSIUM 3.8 01/19/2025 CHLORIDE 105 01/19/2025 CO2 31 01/19/2025 BUN 8 01/19/2025 CREATSERUM 0.72 01/19/2025 GLUCOSE 89 01/19/2025 ASSESSMENT: Crohn's disease impacting colorectum, oral cavity Anorectal stricture S/P EUA, flexible proctosigmoidoscopy with biopsy, attempted stricture dilation (11/02/24) Medical management with Salvatore (per IBD clinic) History of ileocecal resection S/P laparoscopic creation of loop ileostomy (01/17/25) Peristomal skin irritation - intermittent PLAN: Progressing well postoperatively. No clinical signs of infection. Care of incision(s) as well as signs/symptoms of infection reviewed. OTC analgesic of choice (acetaminophen or ibuprofen) PRN per package instructions for pain/discomfort. Regular diet as tolerated. Hydrate with low/zero sugar salt-balanced solutions. No lifting, pushing or pulling >10 pounds until 6 weeks after surgery. Otherwise, may gradually increase activity as tolerated. Stop activities which cause increased pain/discomfort. WOC RN to see patient today. Discussed will not plan for next surgery or takedown of loop ileostomy for at least 3-6 months. Continue following with IBD for medical management of Crohn's disease (Salvatore). RTC in [address] Rodas to assess progress or sooner if needed. The patient verbalizes understanding of our discussion and all education during the office visit today. Patient is agreeable to the plan of care as noted above and is aware of any follow-up recommendations as well as when to call the office should any issues arise in the future. Yvette Mar, MS, NEWS WRITER-YARN WORKER Nurse Practitioner, Division of Colon & Rectal Surgery [facility] 02/20/25 documented in this encounterOSU [facility] Instructions* Patient Instructions* Ruchi Barbosa RN - 02/20/2025 11:00 AM EST Return to clinic in May for Dr Rodas documented in this encounterOSU [facility] History of Present illness Narrative* Chey Aragon MD - 01/27/2025 9:30 AM EDT Subjective ?Quick Links Last Note in Specialty Snapshot Edit RFV/CC Edit Screenings Current Meds Patient ID: Sue Hatfield is a 24 y.o. female who presents for Annual Exam. HPI History of Present Illness The patient presents for a postoperative follow-up. She reports an overall improvement in her condition, although there is intermittent soreness primarily due to adhesive used for her surgical dressings, which has led to skin breakouts. Experimenting with different brands of adhesives, she believes she has found one that is effective. Her surgical in cisions are healing well, with no signs of redness or drainage, and her Steri- Strips have recently started to peel off. The stoma size has decreased from 44 mm to 35 mm since her hospital stay. She maintains a diet of one protein shake per day. Her weight remains stable, and bowel movements range from 5 to 8 times per day. A follow-up appointment with her surgeon is scheduled for 02/17/2025. She has not received influenza vaccines for the past two years but believes her other immunizationsare up-to-date. She expressed interest in undergoing genetic screening for cancer. She requests a repeat CBC and iron studies today. Rituxan has not been administered for the past 2 to 3 years. Diet: One protein shake per day FAMILY HISTORY Her mother had breast cancer before the age of 50. ?Quick Review Review Full History Edit History Meds - Current Medications[1] --- PMH - Allergic Anemia Asthma (HCC) Crohn's disease (HCC) Crohn's disease with complication, unspecified gastrointestinal tract location (HCC) GERD (gastroesophageal reflux disease) Hx of being hospitalized Hx of being hospitalized Lung nodule Myositis Peptic ulceration Objective ?Quick Links Add Vitals Timeline (Adult) Labs Imaging Results Review Trend Vitals ?? Avoid pulling in long tables of results. Comment on relevant results to support your medical decision making. BP 118/70 Pulse 98 Ht 5' 3 Wt 147 lb SpO2 97% BMI 26.04 kg/m Physical Exam Physical Exam General Appearance: Normal. Vital signs: Within normal limits. HEENT: No abnormalities noted. Respiratory: Clear to auscultation, no wheezing, rales or rhonchi. Cardiovascular: regular rate and rhythm with no murmur. Extremities: no edema, palpable pulses. Skin: All incisions appear to be healing well, no redness or drainage. Neurological: Normal. Psychiatric: Normal. ?Quick Links Full Problem List Allergy GI Headache Assessment & Plan Assessment & Plan 1. Postoperative follow-up: - Her surgical incisions are healing well, with no signs of redness or drainage. The stoma appears to be in good condition. - She is advised to increase her protein intake to aid in recovery and weight gain. - If the Steri-Strips cause discomfort or become entangled, she may trim the edges. 2. Health maintenance: - Her last tetanus vaccine was administered in 2013. The tetanus vaccine should be updated at some point, especially if any problems arise. - A repeat CBC and iron studies will be ordered today to monitor her progress post-surgery. - She is eligible for Mickey genetic screening due to her family history of breast cancer before the age of 50. The Mickey genetic screening will be conducted today. Follow-up: 02/17/2025 with the surgeons. [1] acetaminophen (Tylenol) 325 MG tablet albuterol HFA 90 mcg/act inhaler dextrose 5 % solution 500 mL with riTUXimab 500 MG/50ML solution 375 mg/m2 ferrous sulfate (Fe Tabs) 325 (65 Fe) MG EC tablet ibuprofen 600 MG tablet lidocaine (Lidoderm) 5 % patch riTUXimab (Rituxan) 100 MG/10ML chemo injection albuterol 0.63 MG/3ML nebulizer solution 0.63 mg documented in this encounterFulton State [id number] Miscellaneous Notes* Nursing Notes - Elsie Mendoza RN - 01/19/2025 3:24 PM EDT Patient discharged, Ivs removed. Discharge paperwork reviewed with patient and her parents. * Nursing Notes - Michelle Alexander RN - 01/19/2025 10:00 AM EDT Images from the original note were not included. WOC/ET Nursing Consult/Evaluation Note Evaluated Sue Hatfield for ostomy located in RLQ See H&P for more information Description of stoma: RLQ Loop Ileostomy: previous pouch gently removed with adhesive releaser with 25 ml liquid stool inpouch and flatus noted. Stoma and peristomal skin cleansed with water. Stoma red moist protruding above skin level with white jonathan in place. Jonathan removed with slight tension but with deep breathing wasable to remove it. Bleeding following controlled with [...] switch to the Convatec pouch with a counseling case manager convexity which may fit better for the patient. Patient sent home with Coloplast soft convex pouches, Convatec pouches and yudy in case difficulty with pouch adherence occurs due to slight crease medially and post op swelling. Discussed with patient to make a clinic appointment on the day of post op appointment so she does not have to driveover two hours on different days. Discussed the [...] belt as needed for stabilizing pouch following jonathan removal while utilizing convexity. Normal output is [...] has questions regarding ostomies, can call the [place] WO / ET nursing office, . If patient needs to schedule an outpatient appointment with the WOC/ ET nurse, they can call at the outpatient ostomy clinic at the [facility] Ostomy Support Group Second Thursday of every month 5:00-6:00pm [facility], 2nd floor [address] [address] Online or In Person Available This group is open to individuals who have or are scheduled to undergo ostomy surgery (creation of a stoma for bowel/bladder function) and their caregivers. Facilitated by licensed professionals at [facility]. A one-time registration is required. To register, scan the QR code or visit [email or web address] Call Libby Hu at [phone] for more information. See image(s) below: Picture [...] Type Consult with RN WOCT Visit Frequency Thu Last Date Seen 01/19/25 Past Medical History[1] Past Surgical History[2] RN notified of assessment and plan. Please page #[phone] or reconsult with any further needs. Michelle [...] SECTION 09/03/2023 APPENDECTOMY COLECTOMY partial TONSILLECTOMY ADENOIDECTOMY * Plan of Care - Yvonne Pino RN - 01/19/2025 6:24 AM EDT Problem: Adult Inpatient Plan of Care Goal: [...] Goal: Optimal Comfort and Wellbeing Outcome: Progressing * Nursing Notes - Michelle Alexander RN - 01/18/2025 2:40 PM EDT Images from the original note were not included. WOC/ET Nursing Consult/Evaluation Note Evaluated Suewilian Medinarady for ostomy located in RLQ See H&P for more information Description of stoma: RLQ Loop Ileostomy: previous post op pouch gently removed with adhesive releaser with 25 ml liquid stool in pouch and flatus noted. Stoma and peristomal skin cleansed with water. Stoma red moist protruding above skin level with white jonathan in place. Stoma in a creased area and may have problems with leaking while the jonathan remains in place and a flat pouch is utilized but with convexity will have better outcomes. Stoma measuring about 41 mm with jonathan in place, cut larger to fit the jonathan and stoma. Coloplast flat pouch placed using heat of hand to seal. Good seal obtained. Will continue to follow for education, pouch changes and jonathan removal prior to discharge. Recommendation and/or education: [...] belt as needed for stabilizing pouch following jonathan removal while utilizing convexity. Normal output is [...] has questions regarding ostomies, can call the [place] WO / ET nursing office, . If patient needs to schedule an outpatient appointment with the WOC/ ET nurse, they can call [phone] at the outpatient ostomy clinic at the [facility] Ostomy Support Group Second Thursday of every month 5:00-6:00pm [facility], 2nd floor [address] [place] [address] Online or In Person Available This group is open to individuals who have or are scheduled to undergo ostomy surgery (creation of a stoma for bowel/bladder function) and their caregivers. Facilitated by licensed professionals at [facility] A one-time registration is required. To register, scan the QR code or visit [email or web address] Call [facility] [employer] [facility] at [phone] for more information. See image(s) below: Bed [...] Type: loop ileostomy Wound Image Stoma Appearance moist;red;bridge/jonathan in place Peristomal Assessment dry Stomal Appliance 1-piece;intact;changed;per protocol/policy Date Appliance Changed 01/18/25 Stoma Function stool;flatus Tolerance no signs/symptoms of discomfort Plan Problem ileostomy, marked Current Plan lesson, first Visit Type Consult with RN WOCT Visit Frequency Catalina Last Date Seen 01/18/25 Past Medical History[1] Past Surgical History[2] RN notified of assessment and plan. Please page #[phone] or reconsult with any further needs. Michelle [...] SECTION 09/03/2023 APPENDECTOMY COLECTOMY partial TONSILLECTOMY ADENOIDECTOMY * Plan of Care - Kenny Mattson RN - 01/18/2025 2:10 AM EDT Problem: Adult Inpatient Plan of Care Goal: Plan of Care Review Outcome: Progressing Goal: Patient-Specific Goal (Individualized) Outcome: Progressing Goal: Absence of Hospital-Acquired Illness or Injury Outcome: Progressing Goal: Optimal Comfort and Wellbeing Outcome: Progressing Goal: Readiness for Transition of Care Outcome: Progressing * Nursing Notes - Michael Brooks RN - 01/17/2025 6:18 PM EDT Images from the original note were not included. On admission to [facility], from OR a dual RN initial assessment of skin condition was performed by Michael Brooks RN and Jojo TATUM. Skin Assessment: Skin not within defined limits. - Wound(s) identified: Yes - Photo taken and uploaded into notes in IHIS: Yes Saman Score: 23 LDA Added:No Michael Brooks RN * Plan of Care - Shaq Baires MD - 01/17/2025 3:24 PM EDT Images from the original note were not included. SURGERY - POST OP PLAN OF CARE Sue Hatfield is now status post: laparoscopic diverting [...] WOCRN consultation for new ostomy -- Stoma jonathan out before discharge -- Post-operative check to [...] operating room, off service, post call, or otherwiseunavailable. Shaq Baires MD General Surgery * Nursing Notes - Ana Paula Olmos RN - 01/17/2025 11:26 AM EDT Images from the original note [...] Visit Frequency Wed Last Date Seen 01/17/25 * Nursing Notes - Julianna Jack RN - 01/17/2025 11:25 AM EDT 1125- Jus Bermudez MD- J17 Sue Alysia: pt ready for block ([facility]). [id number] reed. documented in this encounterOSU [facility]-2025 Nurse Note* Nursing Notes - Elsie Mendoza RN - 01/19/2025 3:24 PM EDT Patient discharged, Ivs removed. Discharge paperwork reviewed with patient and her parents. [facility]10-09-2025 History of Present illness Narrative* Petty Starr RCP - 01/19/2025 1:54 PM EDT Care Management Discharge Note Selected Continued Care - Admitted Since 01/17/2025 Durable Medical Equipment Coordination complete. Service Provider Services Address Phone Fax Patient Preferred [employer], [employer] Durable Medical Equipment [address] [facility] [place] [id number] -- Patient medically stable for discharge per physician/medical team. Patient/Cv/Cvn Cv Tsc System Operator remain inagreement with the discharge plan. AVS, ÁLVARO and follow-up complete from CM standpoint. BMD and bedside RN updated. Petty Nolasco RRT Clinical Painting And Coating Worker Please note that I am a float Painting And Coating Worker. For primary Painting And Coating Workerdemurrage clerk, or for up to date coverage, please contact / main office at [phone]. * Petty Starr RCP - 01/19/2025 10:15 AM EDT CM notified by home and school visitor that patient is to discharge today. CM has initiated referrals for DME ostomy supplies [facility]. MSG sent to resident notifying that supplies need arranged prior to DC and to also request signature on ostomy script. 1307: Signed ostomy script obtained and uploaded to referral. Awaiting DME providers to review and accept. 1349: CM provide choice list, [employer] is the only DME company that responded. Patient is agreeableto using this company. AVS updated. printer floor covering assistant to send with supplies to allow for [employer] to process and deliver. Team updated. Petty Nolasco RRT Clinical Painting And Coating Worker Please note that I am a float Painting And Coating Worker. For primary Painting And Coating Workerdemurrage clerk, or for up to date coverage, please contact / main office at [phone]. * Latesha Joe RN - 01/18/2025 3:45 PM EDT Discharge Planning Assessment Is the patient able to participate in the assessment?: Yes Care Management Plan Lives with boyfriend and young son. Plans to discharge to home. Declines [facility] for ostomy care. [facility] worked with wound nurse and feels confident she will be able to manage ostomy on her own. [facility] wound nurse told her she would order supplies for pt. No DME needs. Transportation home via family. Introduced self to pt and family and discussed role of pillowcase cleaner and discharge planning process. 2. Anticipate pt to be discharged to home with ostomy supplies. 3. Will coordinate follow up appointments for primary care and specialists as determined. 4. Painting And Coating Worker to continue on going assessment of potential needs/services as pt progresses. Will assist with care coordination and dc planning as needed. 5. Painting And Coating Worker informed patient and family they will need [...] Yes Name and Contact information: Angelique Hatfield [phone] Would you like to add additional parents?: No Reviewed and Updated in Demographics? : Yes Advanced Care Planning Has the patient completed Advance Directives?: Not Completed Referral to Social Work for Advance Care Planning? : Patient Declines Medication Management Does the patient have prescription insurance coverage? : Yes Is the patient on Anticoagulation? : No [facility] [phone] - [address] [address] Living Environment and Support System Is the patient from a facility or fdc?: No Living Environment: House Patient Caregiving Responsibilities: [...] : No Latesha Joe RN, BSN Clinical Painting And Coating Worker *Please note that I am a float pillowcase cleaner and that I may not cover the same service everyday. Please call the main case management office at for up to date coverage. * Gricel Duffy - 01/18/2025 2:37 PM EDT Inpatient Leather Heel Breaster/Spiritual Care Note Reason for Visit: Rounding Visited With: patient, Sue Hatfield; and family. Encounter/Assessment: Leather Heel Breaster met with patientSue, to introduce self, assess needs and describe the role of spiritual care at [facility]. Discussion included exploration of visit. Interventions: Built rapport and established a supportive relationship Shared information about spiritual care services and manager sports availability Outcomes: Patient expressed appreciation for visit and information about spiritual care services and demonstrated [reduced distress/progression to understanding/new normal/focus on present/acceptance]. Plan: No specific follow-up needed at this time OR Chaplains will follow-up as able Patient/family encouraged to request spiritual care as needed. Chaplains are available in-house 24 hours a day and 7 days a week. For urgent matters in [facility], please page [phone]; for the [facility], please page [phone]. If the request is not urgent, please enter a consult. Consults are responded to within 24 hours. Gricel Duffy Dmin, Quality Process Auditor; [facility], Harshad 11 [email or web address] (Nichol Regan Ross [employer], Miguel Patricia) 03/11 On-Call Pager: [phone] Armen 03/11 On-Call Pager: [phone] Flowsheet Documentation: 01/18/25 1437 Clinical Encounter Type Visited With Patient and family together Visit Type Introduction Pastoral Time Spent 15 min Spiritual Assessment Emotional Observation Coping well Support Observation By Family;Strong support Plan of Care Continue Visiting PRN * Shay Condon MD - 01/17/2025 9:05 PM EDT Surgery Post-Op Check Note Sue Hatfield is a 24 y.o. yr old [...] on RA and denies any SOB or chestpain. Patient has already voided and ambulated spontaneously. No suresh. Ostomy bag with minimal serosang output, no gas or stool seen. Stoma appears healthy, jonathan in place. Family is at the bedside [...] Stoma appears pink, slightly congested but healthy, jonathan in place. Ext: No LE swelling/edema, distal [...] Shay Condon MD General Surgery PGY1 Pager [phone] documented in this encounterOSU [facility]10-[facility] Nurse Note* Nursing Notes - Michelle Alexander RN - 01/19/2025 10:00 AM EDT Images from the original note were not included. WOC/ET Nursing Consult/Evaluation Note Evaluated Sue Hatfield for ostomy located in RLQ See H&P for more information Description of stoma: RLQ Loop Ileostomy: previous pouch gently removed with adhesive releaser with 25 ml liquid stool inpouch and flatus noted. Stoma and peristomal skin cleansed with water. Stoma red moist protruding above skin level with white jonathan in place. Jonathan removed with slight tension but with deep breathing wasable to remove it. Bleeding following controlled with [...] switch to the Convatec pouch with a counseling case manager convexity which may fit better for the patient. Patient sent home with Coloplast soft convex pouches, Convatec pouches and yudy in case difficulty with pouch adherence occurs due to slight crease medially and post op swelling. Discussed with patient to make a clinic appointment on the day of post op appointment so she does not have to driveover two hours on different days. Discussed the [...] belt as needed for stabilizing pouch following jonathan removal while utilizing convexity. Normal output is [...] has questions regarding ostomies, can call the [place] WO / ET nursing office, . If patient needs to schedule an outpatient appointment with the WOC/ ET nurse, they can call [phone] at the outpatient ostomy clinic at the [facility] Ostomy Support Group Second Thursday of every month 5:00-6:00pm [facility], 2nd floor [address] [place] [address] Online or In Person Available This group is open to individuals who have or are scheduled to undergo ostomy surgery (creation of a stoma for bowel/bladder function) and their caregivers. Facilitated by licensed professionals at The [facility] A one-time registration is required. To register, scan the QR code or visit [email or web address] Call [facility] [employer] at [phone] for more information. See image(s) below: Picture [...] Type Consult with RN WOCT Visit Frequency Thu Last Date Seen 01/19/25 Past Medical History[1] Past Surgical History[2] RN notified of assessment and plan. Please page #[phone] or reconsult with any further needs. Michelle [...] N/A; Surgeon: Clifford Rodas MD; [facility] UNDER ANESTHESIA ANORECTAL N/A 11/02/2024 Laterality: N/A; Surgeon: Clifford Rodas MD; [facility] MA[facility] OR SIGMOIDOSCOPY DIAGNOSTIC N/A 11/02/2024 Laterality: N/A; Surgeon: Clifford Rodas MD; [facility] 09/03/2023 APPENDECTOMY COLECTOMY partial TONSILLECTOMY ADENOIDECTOMY [facility] Plan of care note* Plan of Care - Yvonne Pino RN - 01/19/2025 6:24 AM EDT Problem: Adult Inpatient Plan of Care Goal: [...] Optimal Comfort and Wellbeing Outcome: Progressing [facility] Nurse Note* Nursing Notes - Michelle Alexander RN - 01/18/2025 2:40 PM EDT Images from the original note were not included. WOC/ET Nursing Consult/Evaluation Note Evaluated Sue Hatfield for ostomy located in RLQ See H&P for more information Description of stoma: RLQ Loop Ileostomy: previous post op pouch gently removed with adhesive releaser with 25 ml liquid stool in pouch and flatus noted. Stoma and peristomal skin cleansed with water. Stoma red moist protruding above skin level with white jonathan in place. Stoma in a creased area and may have problems with leaking while the jonathan remains in place and a flat pouch is utilized but with convexity will have better outcomes. Stoma measuring about 41 mm with jonathan in place, cut larger to fit the jonathan and stoma. Coloplast flat pouch placed using heat of hand to seal. Good seal obtained. Will continue to follow for education, pouch changes and jonathan removal prior to discharge. Recommendation and/or education: [...] belt as needed for stabilizing pouch following jonathan removal while utilizing convexity. Normal output is [...] has questions regarding ostomies, can call the [place] WO / ET nursing office, . If patient needs to schedule an outpatient appointment with the WOC/ ET nurse, they can call [phone] at the outpatient ostomy clinic at the [facility] Ostomy Support Group Thursday of every month 5:00-6:00pm [facility], 2nd floor [address] [address] Online or In Person Available This group is open to individuals who have or are scheduled to undergo ostomy surgery (creation of a stoma for bowel/bladder function) and their caregivers. Facilitated by licensed professionals at [facility]. A one-time registration is required. To register, scan the QR code or visit [email or web address] Call [facility] husam Hu at [phone] for more information. See image(s) below: Bed [...] Type: loop ileostomy Wound Image Stoma Appearance moist;red;bridge/jonathan in place Peristomal Assessment dry Stomal Appliance 1-piece;intact;changed;per protocol/policy Date Appliance Changed 01/18/25 Stoma Function stool;flatus Tolerance no signs/symptoms of discomfort Plan Problem ileostomy, marked Current Plan lesson, first Visit Type Consult with RN WOCT Visit Frequency Catalina Last Date Seen 01/18/25 Past Medical History[1] Past Surgical History[2] RN notified of assessment and plan. Please page #[phone] or reconsult with any further needs. Michelle [...] N/A; Surgeon: Clifford Rodas MD; [facility] UNDER ANESTHESIA ANORECTAL N/A 11/02/2024 Laterality: N/A; Surgeon: Clifford Rodas MD; [facility] OR SIGMOIDOSCOPY DIAGNOSTIC N/A 11/02/2024 Laterality: N/A; Surgeon: Clifford Rodas MD; [facility] SECTION 09/03/2023 APPENDECTOMY COLECTOMY partial TONSILLECTOMY ADENOIDECTOMY [facility] Discharge instructions* Medications * Dari Rene MD - 01/18/2025 9:14 AM [...] has a high dose of medicine in it.Small children have been killed by opioid patches [...] state clearly to flush them. Go to www.fda.gov/Drugs/ResourcesForYou/Consumers/BuyingU singMedicineSafely/EnsuringSafeUseofMedicine/SafeDisposalofMedicines/hhn750679.h tm to see a list ofmedicines that should be flushed. Take special care with used opioid patches. As soon as you peel a patch off of your skin, fold it in half with the sticky sides together. Immediately take it to a MEME-authorized site or flush it downthe toilet if a MEME-authorized site isn't available in your area. Do not throw them in the trash. Where can you go to learn more? To learn how and where to get rid of unused medicines in your area, ask your doctor or pharmacist for help. Your local trash and recycle center may have a drop-off site. You can also look online at the [employer] Diversion Control Division website (deadiversion.usdoj.gov) to find a disposal site near you. Or you can visit fda.gov and search for unused medicine disposal. Follow-up care is a bueno part of your treatment and safety. Be sure to make and go to all appointments, and call your doctor if you are having problems. It's also a good idea to know your test resultsand keep a list of the medicines you take. Where can you learn more? Go to http://www.DoPay.WiMi5.edu/patiented. Enter N709 in the search box to learn more about 'Learning About Safely Storing and Getting Rid of Opioid Pills and Patches.' Interested in seeing a video go to https://DoPay.WiMi5.edu/videolibrary to see all video content. Current as of: July 08, 2018 Content Version: 12.2 1039-3350 panpan. Care instructions adapted under license by your healthcare professional. If you have questions about a medical condition or this instruction, always ask your healthcare professional. [employer] disclaims any warranty or liability for your use of this information. * Discharge Instr - Activity* Dair Rene MD - 01/18/2025 9:14 AM EDT [...] hot tub until instructed to do so. * Discharge Instr - Diet* Dari Rene MD - 01/18/2025 9:14 AM EDT Regular Diet to help you maintain your health and control your weight. Choose healthy fats and oils such ascanola or olive oils, and good sources of fiber and carbohydrates. Choose lean meats or vegetables proteins. Avoid adding salt to your foods. Increase daily intake of fruits and vegetables. You may find it easier to eat smaller meals throughout the day. Advance your diet as tolerated. * Discharge Instr - Notify* Drai Rene MD - 01/18/2025 9:14 AM EDT COLORECTAL ADDITIONAL CONTACTS For Concerns During Weekend or Evening Hours: -If you have questions or concerns call and ask the cloth desizing range operator chief to page the cmo & president product manufacturing professional. Reminder: Amp'd Mobile messaging goes unmonitored during evenings and weekends. Any concerns or questions during this time, please call using instructions above. Clinic Office Main Number: Colorectal Cancer: [phone] Colorectal Non-cancer: [phone] ENTEROSTOMAL THERAPY RN OSTOMY Clinic NOTIFY PHYSICIAN: [...] -Passing bright red blood from your rectum * Attachments The following attachments cannot be sent through Care Everywhere. * Ostomy Care (Vincentian) * Ostomy: How to Manage High Output (The Armen) (Vincentian) documented in this encounterOSU [facility] Plan of care note* Plan of Care - Kenny Mattson RN - 01/18/2025 2:10 AM EDT Problem: Adult Inpatient Plan of Care Goal: Plan of Care Review Outcome: Progressing Goal: Patient-Specific Goal (Individualized) Outcome: Progressing Goal: Absence of Hospital-Acquired Illness or Injury Outcome: Progressing Goal: Optimal Comfort and Wellbeing Outcome: Progressing Goal: Readiness for Transition of Care Outcome: Progressing [facility]10-07-2025 Nurse Note* Nursing Notes - Michael Brooks RN - 01/17/2025 6:18 PM EDT Images from the original note were not included. On admission to [facility], from OR a dual RN initial assessment of skin condition was performed by Michael Brooks RN and Jojo TATUM. Skin Assessment: Skin not within defined limits. - Wound(s) identified: Yes - Photo taken and uploaded into notes in IHIS: Yes Saman Score: 23 LDA Added:No Michael Brooks RN [facility]10-07-2025 Plan of care note* Plan of Care - Shaq Baires MD - 01/17/2025 3:24 PM EDT Images from the original note were not included. SURGERY - POST OP PLAN OF CARE Sue Hatfield is now status post: laparoscopic diverting [...] WOCRN consultation for new ostomy -- Stoma jonathan out before discharge -- Post-operative check to [...] operating room, off service, post call, or otherwiseunavailable. Shaq Baires MD General Surgery [facility] Work Phone: 1(530) 919-798710-07-2025 Nurse Note* Nursing Notes - Ana Paula Olmos RN - 01/17/2025 11:26 AM EDT Images from the original note [...] Visit Frequency Wed Last Date Seen 01/17/25 [facility]10-07-2025 Nurse Note* Nursing Notes - Julianna Jack RN - 01/17/2025 11:25 AM EDT 1125- Paged Lara DEAL- J17 Sue Hatfield: pt ready for block ([facility]). [phone] reed. [facility]10-07[facility]2025 Nurse Surgical operation note* Julianna Jack RN - 01/17/2025 10:49 AM EDT Patient denies hx of chemo and radiation. Patient denies metal or foreign objects in body. Patient denies hx of seizure or stroke. [facility]10-07-2025 Nurse Note* Julianna Jack RN - 01/17/2025 10:49 AM EDT Patient denies hx of chemo and radiation. Patient denies metal or foreign objects in body. Patient denies hx of seizure or stroke. documented in this encounterOSU [facility] History of Present illness Narrative* Chey Paula RN - 01/02/2025 1:00 PM EDT WOC/ET Nursing Consult Note: Patient seen for pre-operative discussion for planned ileostomy. Discussed stoma appearance and function, timing and frequency of ostomy pouch change and emptying, showering/bathing, diet, etc. Patient given pre-operative ostomy teaching kit that includes pouch samples,QR link to video, and written teaching information. Encouraged patient to call [phone] if any questions. Tentative stoma marking done at this time. documented in this encounterU [facility] History of Present illness Narrative* Yvette Mar, SHANTELL-ALEXANDR - 12/26/2024 11:15 AM EDT COLORECTAL SURGERY [...] with luminal narrowing. Findings are suggestive of lhiol-fe-bjzkupd Crohn's disease. Prominent asymmetric soft tissue in [...] further questions or concerns. Clifford Rodas MD * Jerilyn Hutchins RN - [...] TEACHING, and sent pt ERAS teaching through [employer]. documented in this encounterPar[facility]09-15-2025 Instructions* Patient Instructions* Jerilyn Hutchins RN - 12/26/2024 [...] doses. No premeds. Rate and dilution per ladle filler package insert or per pharmacist discretion. Infusion [...] call by 4 p.m., please call the [facility] Ambulatory Surgery Unit at . Follow [...] the hospital. Do not wear makeup, nail belgian or hair pins to the hospital. Please [...] a living will or durable power of real estate associate attorney, please bring a copy of the documents with you. IF YOU USE CPAP BRING YOUR MACHINE WITH YOU TO THE HOSPITAL ALONG WITH THE PRESCRIPTION FOR CPAP PRESSURE LEVELS If you develop any illness, such as a cold, sore throat, cough, or fever, before your surgery, callthe [facility] at and our [...] found at all major retailers and on [employer]. If you are unable to find these [...] program. You can also get help through: [facility], National Quit Line, [place] Lung Association, [place] Cancer Society, Smokefree.gov website Stop Alcohol Use [...] Anonymous (AA) http://www.aa.org/ Rethinking Drinking https://www.rethinkingdrinking.niaaa.nih.gov/ National Carefree of Alcohol Abuse and Alcoholism https://niaaa.nih.gov/ Anila Rubin [phone] -Inpatient, partial hospitalization and outpatient services for [...] Patient Controlled Analgesia (also known as a WET FINISHER) A WET FINISHER is a pain pump that could be [...] your doctor s office. documented in this encounterParma [facility]09-15-2025 Miscellaneous Notes* Addendum Note - DANIKA Maxwell - 12/26/2024 11:15 AM EDT Addended by: YVETTE MAR on: 12/26/2024 02:00 PM Modules accepted: Orders documented in this encounterParma [facility]09-15-2025 Note* Addendum Note - DANIKA Maxwell - 12/26/2024 11:15 AM EDTAddended by: YVETTE MAR on: 12/26/2024 02:00 PM Modules accepted: Orders [facility]07-23-2025 Nurse Surgical operation note* Melanie Esquivel RN - 11/02/2024 6:59 PM EDT Patient meets ASU discharge criteria and discharged per MD order to home. Patient taken by wheelchair by Herlinda TATUM to awaiting car. All belongings gathered with patient. Family/friend to drive patient home and care for patient 24 hours post-op. [facility]07-23-2025 Nurse Note* Melanie Esquivel RN - 11/02/2024 6:59 PM EDT Patient meets ASU discharge criteria and discharged per MD order to home. Patient taken by wheelchair by Herlinda TATUM to awaiting car. All belongings gathered with patient. Family/friend to drive patient home and care for patient 24 hours post-op. documented in this encounterParma [facility]07-23-2025 Miscellaneous Notes* Nursing Notes - Masha Dominguez RN - 11/02/2024 6:13 PM EDT [facility] [place]. Vital signs taken and stable. Patient given drink and snacks. Family called to bedside. Patient assessed. * Nursing Notes - Tiffany Knott RN - 11/02/2024 2:52 PM EDT Patient denies hx of chemo and radiation. Patient denies metal or foreign objects in body. Patient denies hx of seizure or stroke. documented in this encounterOSU [facility] Nurse Note* Nursing Notes - Masha Dominguez RN - 11/02/2024 6:13 PM EDT [facility] [place]. Vital signs taken and stable. Patient given drink and snacks. Family called to bedside. Patient assessed. [facility] Hospital Discharge instructions* Discharge Instructions* Cliff Taylor MD, PhD - 11/02/2024 5:25 PM EDT Anorectal Discharge Instructions You had: Anorectal examination under anesthesia with dilation of anal stricture, flexible sigmoidoscopy, andbiopsies of stricture BOWEL MOVEMENTS It is normal [...] the counter daily until the stool remains softand easy to pass Polyethylene glycol (Miralax) - [...] medications is right for you. Some are usri-jfe-kjzlwur, some prescribed electronically, and some require a paper prescription. Acetaminophen (Tylenol) - blocks the pain impulse generated from your wounds, over the counter Patients with known liver disease cannot take acetaminophen Naproxen (Aleve) - a non-steroidal anti-inflammatory medication (NSAID), over the counter Patients with severe kidney disease, a history of stomach ulcers, or certain bleeding disorders maynot be able to take NSAIDs Ibuprofen (Advil, [...] of stomach ulcers, or certain bleeding disorders maynot be able to take NSAIDs HOW TO [...] NAPROXEN or IBUPROFEN completely documented in this encounterParma [facility]07-23-2025 Nurse Note* Nursing Notes - Tiffany Knott RN - 11/02/2024 2:52 PM EDT Patient denies hx of chemo and radiation. Patient denies metal or foreign objects in body. Patient denies hx of seizure or stroke. [facility]07-07-2025 Instructions* Patient Instructions* Eleanor Bess RN - 10/17/2024 10:30 AM EDT Current Outpatient Medications Medication Sig Acetaminophen 325 MG tablet Hold 2 days prior Lidocaine viscous-Alum & Mag Msbbpmxip-Amaapf-onbhzjbtkfKAYIV oral mouthwash Hold 24 hours prior risankizumab-rzaa [...] call by 4 p.m., please call the [facility] Ambulatory Surgery Unit at [phone]. Follow these instructions before coming to the hospital: 2 Do not eat or drink anything (including water, coffee, candy, gum or mints) after midnight beforeyour surgery. Only take the medicine your surgeon or anesthesiologist told you to take by mouth themorning of your surgery and Ensure Pre-Surgery drink [...] hospital. 6 Do not wear makeup, nail belgian or hair pins to the hospital. Please [...] a living will or durable power of real estate associate attorney, please bring a copy of the documents with you. 13 IF YOU USE CPAP BRING YOUR MACHINE WITH YOU TO THE HOSPITAL ALONG WITH THE PRESCRIPTION FOR CPAPPRESSURE LEVELS If you develop any illness, such as a cold, sore throat, cough, or fever, before your surgery, callthe [facility] at and our office at . Survey Following your visit today, you may receive a survey via text or email asking about your experience. We are always looking for ways to improve your visit. Please share your feedback and comments withus- We would love to hear from you! documented in this encounterU [facility] History of Present illness Narrative* Milind Fitch, NEWS WRITER-YARN WORKER - 09/22/2024 2:30 PM EDT Images from the original note were not included. [facility] Chief Complaint Patient presents with Follow-up Crohn's Disease HISTORY OF PRESENT ILLNESS Sue Hatfield is a 23 y.o. female w/ PMH Ileocolonic Crohn's disease Stelara, orbital myositits, psoriasis, chronic sinusitis here for follow up. Transferred care from [facility] 02/2023. Patient was diagnosed with Crohn's [...] was diagnosed with orbital myositis and developed pulmonarynodules. Was told Crohn's moved to mouth. Went to [facility] and this stopped working. On Rituximab fororbital myositis. Has been on Stelara for at least a year and states things have been going well for past couple of months. Was ordered stool calprotectin to ensure inflammation was stable throughoutpregnancy last 2 visits but not completed. Colonoscopy completed 11/2023 - SES score 0, anal stricture found on digital rectal exam. Pathologywith mild reactive changes at anastomosis, and acutely [...] IBD history Diagnosed (age): 10 Disease distribution: [place] Classification: CD: A1 <16, L3 ileocolonic GI surgical history: Ileocectomy 2016 Current therapy: Skyrizi (set to start tomorrow) Past therapy: - Stelara v1efqrb - Infliximab(stopped due to severe scalp psoriasis) - Entyvio(stopped due to facial granulomatosis swelling) - Humira? Last colonoscopy: 08/2024 - inflammation but prep not adequate and rectal stricture Last imaging: N/A Complications: Orbital myositis, psoriasis IBD MD: Will Complete 14-Point Review of Systems: See History of Present Illness for pertinent positives/negatives; health history questionnaire alsoreviewed. Otherwise, all other systems negative. PAST MEDICAL [...] days, THEN 3 tablets daily for 7 days,THEN 2 tablets daily for 7 days, THEN [...] doses. No premeds. Rate and dilution per ladle filler package insert or per pharmacist discretion. Infusion [...] Resource Strain: Low Risk (05/17/2024) Received from [facility] Overall Financial Resource Strain (CARDIA) Difficulty of Paying Living Expenses: Not hard at all Food Insecurity: No Food Insecurity (05/17/2024) Received from [facility] Hunger Vital Sign Worried About Running Out of Food in the Last Year: Never true Ran Out of Food in the Last Year: Never true Transportation Needs: No Transportation Needs (05/17/2024) Received from [facility] PRAPARE - Transportation Lack of Transportation (Medical): No Lack of Transportation (Non-Medical): No Physical Activity: Insufficiently Active (05/17/2024) Received from [facility] Exercise Vital Sign Days of Exercise per Week: 4 days Minutes of Exercise per Session: 30 min Stress: No Stress Concern Present (05/17/2024) Received from [facility] Surinamese Carefree of Occupational Health - Occupational Stress Questionnaire Feeling of Stress : Not at all Social Connections: Moderately Isolated (05/17/2024) Received from [facility] Social Connection and Isolation Panel [NHANES] Frequency of Communication with Friends and Family: More than three times a week Frequency of Social Gatherings with Friends and Family: More than three times a week Attends Voodoo Services: Never Active Member of Clubs or Organizations: No Attends Club or Organization Meetings: Never Marital Status: Living with partner Personal Safety: Not At Risk (02/09/2023) Received from [facility], [facility] Humiliation, Afraid, Rape, and Kick questionnaire Fear of Current or Ex-Partner: No Emotionally Abused: No Physically Abused: No Sexually Abused: No Housing Stability: Low Risk (05/17/2024) Received from [facility] Housing Stability Vital Sign Unable to Pay [...] STUDIES: Relevant radiology studies were reviewed in [facility] PROCEDURES: Colonoscopy 08/2024: Impression: - Preparation [...] for CMV is negative EGD 2021: Colonoscopy 2016: Pathology: IMPRESSION: Sue Hatfield is a 23 y.o. female w/ PMH Ileocolonic Crohn's disease s/p ileocectomy 2016, orbital myositits, psoriasis, chronic sinusitis, completed follow up visit today. Sue presents today to follow up on colonoscopy [...] already done. We will plan to see prabhuack in 2 months, or sooner if necessary. [...] time spent on day of encounter including psn-udqi-th-face time (chart review/completing the note/coordinating care) and mdtm-sm-mlvk time with the patient: 20 minutes DANIKA Waterman IBD Nurse Practitioner Division of Gastroenterology, Hepatology, and Nutrition * Jenny Conner MA - 09/22/2024 2:30 PM EDT This MA verified patients name and . documented in this encounterOSU [facility] Instructions* Patient Instructions* DANIKA Waterman - 09/22/2024 2:30 PM EDT - Skyrizi infusion tomorrow as scheduled - Update labs today - Continue prednisone taper as prescribed - Colorectal follow up as scheduled in October - Reach out with concerns - Follow up in 2 months, or sooner if necessary documented in this encounterOSU [facility] Nurse Note* Nursing Notes - Nadia Rivera RN - 09/06/2024 2:02 PM EDT Extent reached per Dr. Dalton.. [facility] Miscellaneous Notes* Nursing Notes - Nadia Rivera RN - 09/06/2024 2:02 PM EDT Extent reached per Dr. Dalton.. * Nursing Notes - Nadia Rivera RN - 09/06/2024 1:57 PM EDT Exchanged adult scope for ultraslim scope. * Nursing Notes - Nadia Rivera RN - 09/06/2024 1:11 PM EDT Sedation, vital signs, airway, and monitoring per anesthesia. documented in this encounterOSU [facility] Nurse Note* Nursing Notes - Nadia Rivera RN - 09/06/2024 1:57 PM EDT Exchanged adult scope for ultraslim scope. [facility] History and physical note* Kacey Dalton MD - 09/06/2024 1:30 PM EDT ENDOSCOPIC PREPROCEDURE HISTORY AND PHYSICAL HISTORY OF PRESENT ILLNESS: Sue Hatfield is a 23 y.o. female seen [...] auscultation bilaterally ABDOMEN: Soft, nontender, nondistended ASSESSMENT: Sue Hatfield is a 23 y.o. female is ready for the planned procedure. ASA Class: ASA 2 - Patient with mild systemic disease with no functional limitations PLAN: Will plan to proceed with DIAGNOSTIC COLONOSCOPY using Monitored Anesthesia Care. Kacey Dalton MD [facility] Work Phone: 1(945) 741-308105-27-2025 History and physical note* Kacey Dalton MD - 09/06/2024 1:30 PM EDT ENDOSCOPIC PREPROCEDURE HISTORY AND PHYSICAL HISTORY OF PRESENT ILLNESS: Sue Hatfield is a 23 y.o. female seen [...] auscultation bilaterally ABDOMEN: Soft, nontender, nondistended ASSESSMENT: Sue Hatfield is a 23 y.o. female is ready for the planned procedure. ASA Class: ASA 2 - Patient with mild systemic disease with no functional limitations PLAN: Will plan to proceed with DIAGNOSTIC COLONOSCOPY using Monitored Anesthesia Care. Kacey Dalton MD documented in this encounterOSU [facility] Nurse Note* Sheela Boggs RN - 09/06/2024 1:30 PM EDT A copy of the written instructions regarding post-procedure diet, medications, activities, and phone number to be called in case of emergency provided to patient and/or responsible alliance party. Informationreviewed and questions answered prior to discharge. PT HAD SPRITE AND PRETZELS DRESSED SELF AMBULATED TO LOBBY BY SELF documented in this encounterOSU [facility] Nurse Surgical operation note* Sheela Boggs RN - 09/06/2024 1:30 PM EDT A copy of the written instructions regarding post-procedure diet, medications, activities, and phone number to be called in case of emergency provided to patient and/or responsible alliance party. Informationreviewed and questions answered prior to discharge. PT HAD SPRITE AND PRETZELS DRESSED SELF AMBULATED TO LOBBY BY SELF [facility] Nurse Note* Nursing Notes - Nadia Rivera RN - 09/06/2024 1:11 PM EDT Sedation, vital signs, airway, and monitoring per anesthesia. [facility] [facility] [place]04-21[facility] History of Present illness Narrative* Katie Aceves, DIXIE - 08/01/2024 6:00 PM EDT Images from the original note were not included. Sue Hatfield is a 23 y.o. female presents with chief complaint of Migraine HPI: HPI History of Present Illness The patient presents for evaluation of headaches. Daily headaches have been experienced for the past 2.5 weeks, originating in the left restoration area and radiating across the forehead to [...] exists regarding whether an MRI of the o rbits would provide more insight into the eye tumors. It is unclear if the current symptoms are related to a tumor flare or a migraine. Tumor headaches are characterized by pain above the eye, eyelidswelling, and eye restriction when looking up, down, or to the side. However, no swelling has been observed recently. The pain initially presents as a tumor headache before spreading across the forehead and evolving into a migraine. Currently under the care of a power ballast machine operator at [facility], who recommended starting treatment here and potentially obtaining scans if necessary. The power ballast machine operator was also unsure if the symptoms were [...] Reports daily headaches starting in the left restoration area and spreading across the forehead to theright, often worsening in the afternoons and causing nausea. - Qvns-cvl-kdfogtu medications like Tylenol and ibuprofen have been ineffective. Ubrelvy 50 mg provided temporary relief, and Nurtec was ineffective. - Headaches may be related to known eye tumors or could be migraines. Rheumatology advised startingwith primary care and possibly getting scans if needed. -No further scans needed at this point, until she sees neuro. - Samples of Qulipta will be provided, and she is advised to take one daily. A prescription for Qulipta will be sent to the pharmacy, and insurance coverage will be checked. Qulipta until she can getin with neuro for further eval. documented in this encounterFulton State [id number] History of Present illness Narrative* Chey Aragon MD - 07/15/2024 3:30 PM EDT Images from the original note were not included. Sue Hatfield is a 23 y.o. female presents with chief complaint of Migraine (Past 2-4 weeks pt has been having migraines. ) HPI: HPI History of Present Illness The patient presents for evaluation of migraines. She reports experiencing constant headaches, which have escalated to migraines over the past 3 weeks. The headaches are described as a pulsating pressure that encompasses her entire forehead, withoutany specific side of onset. She does not experience photophobia, phonophobia, nausea, or vomiting. She has not been prescribed any specific medication for her migraines. She also reports no sinus symptoms, ocular swelling, or movement restrictions. Additionally, she does not have rhinorrhea, sore throat, or congestion. She has not had a CT or MRI scan in recent years and is uncertain if one wouldbe necessary. She recalls that her last flare-up was 4 years ago, during which she experienced similar pressure but with concurrent eye swelling. Her power ballast machine operator noted that her last ocular flare-up was [...] symptoms with Tylenol and ibuprofen, but these interventionshave proven ineffective. She has a history of frequent headaches associated with ocular symptoms, but the current presentation is characterized by persistent headaches that have evolved into migraines. She has been dealing with Crohn's disease, which has been significantly exacerbated recently. Laboratory results from the previous month indicated a severe flare-up, anemia, and elevated calprotectinlevels (800-900). Consequently, her Stelara dosage was adjusted to a 4-week interval instead of theusual 6 weeks. MEDICATIONS Current: Tylenol, ibuprofen, Stelara [...] past 3 weeks, which have evolved into migrainesover the past week. The headaches are described as a throbbing, pulsating pressure that wraps around the forehead. Amyx-pcx-trjwfwg medications like Tylenol and ibuprofen have been ineffective. Thereare no associated symptoms such as light sensitivity, sound sensitivity, nausea, vomiting, sinus symptoms, or eye swelling. Blood pressure is normal. An MRI conducted in June 2020 was normal. Samples of Ubrelvy will be provided to try over the weekend. If the headaches worsen, she should go to theemergency room. If the new medication does not control the headaches, a scan may be considered nextweek. 2. Crohn's disease. Her Crohn's disease has been significantly exacerbated recently. Laboratory results from the previous month indicated a severe flare-up, anemia, and elevated calprotectin levels (800-900). Consequently, her Stelara dosage was adjusted to a 4-week interval instead of the usual 6 weeks. Assessment/Plan Problem List Items Addressed This Visit Headache - Primary documented in this encounterFulton State [id number] Note Attestation signed by Jelly Latham MD [...] pain does not improve with Stelara monotherapy [facility] New Patient Visit Subjective Chief Complaint: No chief complaint on file. Sue Hatfield is an 23 y.o. female presenting [...] diarrhea and abdominal pain. 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 No other autoimmune diseases or arthritis [...] Resource Strain: Low Risk (05/17/2024) [facility] Overall Financial Resource Strain (CARDIA) Difficulty of Paying Living Expenses: Not hard at all Food Insecurity: No Food Insecurity (05/17/2024) [facility] Hunger Vital Sign Worried About Running Out of Food in the Last Year: Never true Ran Out of Food in the Last Year: Never true Transportation Needs: No Transportation Needs (05/17/2024) [facility] PRAPARE - Transportation Lack of Transportation (Medical): (more content not included)...[facility]02-05-2025 Telephone encounter Note* Telephone Encounter - Angella Bailon - 05/18/2024 9:17 AM EST I know Louisa s not in today, so can you send a message to Serene regarding me letting her know i saw bebe last night and tested negative for everything but i just took a positive covid test [facility] HospitalImqmwmcxhz31-35-2220 Miscellaneous Notes* Telephone Encounter - Angella Bailon - 05/18/2024 9:17 AM EST I know Louisa s not in today, so can you send a message to Serene regarding me letting her know i saw bebe last night and tested negative for everything but i just took a positive covid test documented in this encounterFulton State HospitalPzbugziazg49-69-0889 History of Present illness Narrative* Katie Aceves, DIXIE - 05/17/2024 3:15 PM EST Sue Hatfield is a 23 y.o. female presents [...] . Additionally, she mentions exposure to a coldenvironment at her workplace. Despite taking Tylenol and [...] cause - STATUS COVID-19/FLU documented in this encounterFulton State HospitalTdxglhxrml21-48-9606 History of Present illness Narrative* Rut Henao RN - 05/04/2024 11:30 AM EST Chey Aragon MD [address] [place] [address] 23 year old F here for surgical follow up. Surgery was 03/22/[address] Lee. Having random left ear pain. States it feels like something is in there. Ear drops made it worse and stopped them. * Danny Lee MD - 05/04/2024 11:30 AM EST [facility] PEDIATRIC OTOLARYNGOLOGY FOLLOW UP VISIT NOTE Chey Aragon MD [address] [place] [address] Sue Hatfield is a 23 year female who was seen in the Pediatric Otolaryngology Clinic for an established patient visit. CHIEF COMPLAINT: Her chief complaint is Surgical Followup INFORMANT: The history was obtained from Self HISTORY OF PRESENT ILLNESS: Sue is here today for follow up of [...] Labs: None Outside medical record review: None [facility] chart review: Previous ENT notes reviewed Discussion of patient care/ tests with other professional/s: No Procedures Performed: None RISK ASSESSMENT:` None Bleeding Risk Score Sue - Bleeding Risk Score: 0 (05/04/2024 8:00 AM) I view the management of the problems encountered in this visit as: Minimal risk of morbidity from additional testing or management Pertinent Social Determinants of Health: n/a VISIT DIAGNOSIS/ASSESSMENT: 1. Perforation of left tympanic membrane PLAN/MANAGEMENT OPTIONS: 6 month F/U May need tympanoplasty- endoscopic documented in this [facility]01-22-2025 Instructions* Patient Instructions* Milind Suazo RN - 05/04/2024 11:30 AM EST Sue needs to be seen again for a follow-up appointment in the ENT clinic in 6 months. Due to high demand, if your child does not come to his/her scheduled appointment, our clinic may not be able to reschedule your appointment in a timely manner. For all cancellations, please call our Central Scheduling number at [phone] at least 48 hours prior to your scheduled appointment. Department of Otolaryngology (ENT) Patient Instructions ENT Nurse Triage Line: [phone] (Thursday through Thursday 8:00 am - 4:00 pm) Please call the ENT Nurse Triage Line if you need to speak to a nurse for any ENT- related medical concerns prior to yournext appointment. [facility] Hospital Monitor: [phone] (Weekdays after 4:00 pm and on Weekends) If you have urgent ENT concerns for your child after hours that can t wait until our return to the office, please call the hospital cloth desizing range operator chief and ask to speak to the ENT physician product manufacturing professional. [facility] Central [phone] (Thursday through Thursday 7:30 am -5:30 pm) Please call Central Scheduling and follow the prompts to schedule an ENT appointment if you did not schedule an appointment today, or if you need to cancel and reschedule a future appointment. For more information about the Department of Otolaryngology (Ear, Nose and Throat) at [facility], please visit our website at: [email or web address] documented in this encounterPike Community Hospital01-16-2025 Telephone encounter Note* Telephone Encounter - Payton Campo APRN - 04/28/2024 8:36 AM EST S/w Pt. Did ear drops yesterday. It was painful in the morning when she used drops for the first time in left ear. Bantry and stabbing pain. Also burned left nostril. [...] ENT. PT verbalized understanding. All questions answered. [facility]01-16-2025 Miscellaneous Notes* Telephone Encounter - Payton Campo APRN - 04/28/2024 8:36 AM EST S/w Pt. Did ear drops yesterday. It was painful in the morning when she used drops for the first time in left ear. Bantry and stabbing pain. Also burned left nostril. [...] understanding. All questions answered. documented in this encounterPike Community Hospital12-10-2024 Miscellaneous Notes* Operative Report - Danny Lee MD - 03/22/2024 2:08 PM EST Images from the original note were not included. OPERATIVE REPORT PATIENT NAME: Sue Hatfield : 2000 DATE OF SURGERY: 03/22/2024 Service: ENT Surgeons and Role: * Danny Lee MD - Primary Anesthesiologist: Merly Perera MD RN MANAGED CARE: Noemi Pederson CRNA Pre-Op Diagnosis Codes: * [...] patient was seen and evaluated in the [facility] Pediatric Otolaryngology practice. After history and [...] by the anesthesia team. Proper surgeon-initiated time-out wasperformed. The left ear was prepped and draped [...] graft up to the level of the [place] tympanic membrane remnantand further pieces of Gelfoam [...] 1:100,000 epinephrine was injected into the axilla ofthe middle turbinate and the lateral nasal wall bilaterally.. After adequate anesthetic and vasocons trictive effects, we proceeded with sinus surgery on [...] with a 0 degree telescope after adequate decongestionwas achieved with afrin. The left side was [...] revealed prominent vessels bilaterally. The vessels were cauterizedusing an bipolar cautery without opposing sites of [...] throughout the entire duration of this procedure. Danny Lee MD Pediatric Otolaryngology [facility] documented in this encounterPike Community Hospital12-10-2024 Procedure note* Operative Report - Danny Lee MD - 03/22/2024 2:08 PM EST Images from the original note were not included. OPERATIVE REPORT PATIENT NAME: Sue Hatfield : 2000 DATE OF SURGERY: 03/22/2024 Service: ENT Surgeons and Role: * Danny Lee MD - Primary Anesthesiologist: Merly Perera MD RN MANAGED CARE: Noemi Pederson CRNA Pre-Op Diagnosis Codes: * [...] patient was seen and evaluated in the [facility] Pediatric Otolaryngology practice. After history and [...] by the anesthesia team. Proper surgeon-initiated time-out wasperformed. The left ear was prepped and draped [...] graft up to the level of the [place] tympanic membrane remnantand further pieces of Gelfoam [...] 1:100,000 epinephrine was injected into the axilla ofthe middle turbinate and the lateral nasal wall bilaterally.. After adequate anesthetic and vasocons trictive effects, we proceeded with sinus surgery on [...] with a 0 degree telescope after adequate decongestionwas achieved with afrin. The left side was [...] revealed prominent vessels bilaterally. The vessels were cauterizedusing an bipolar cautery without opposing sites of [...] throughout the entire duration of this procedure. Danny Lee MD Pediatric Otolaryngology [facility]12-10-2024 Attending History and physical note* Danny Lee MD - 03/22/2024 1:27 PM EST I have examined the patient, reviewed the [...] status: Ambulatory Surgery History of Present Illness/Condition Sue Hatfield is a 23 year old female [...] Laterality Date left ear tube insertion 09/28/2017 [facility] Anterior orbitotomy, biopsy of lacrimal gland, left 08/02/2014 Steffany Kyle nasal endoscopy, nasal cautery, fess, ethmoidectomy, exc right facial lesion, mri 12/20/2020 [facility] Biat fess, ethmoidectomy, spenoidotomy 05/18/2020 [facility] Ashu max sinus surg / flex bronch bal 04/21/2019 [facility] / Palacious Bilat nasal cautery, rt fess, bilat turb cautery, bilat fracture nasal turbinate 05/23/2021 [facility] Bilateral diagnostic nasal/sinus endoscopy 08/04/2016 [facility]illary functional [facility]/14[facility]oscopy[facility]biopsy 82501 [facility]biopsy 97837 07/06/2018 [facility] Egd w/ bx / colonoscopy w/ bx 12/29/2012 Egd/biopsy 08956 02/22/2016 [facility] Egd/biopsy 07245 07/06/2018 [facility] Exicisional biopsy 06/11/2018 CE submental lymph node Functional endoscopic sinus surgerysinusotomy,sphenoid,with or without biopsy; with mucosal stripping or removal of polyp(s) (bilateral) (bilateral, 08/20/2021 [facility] Hx colonoscopy with biopsy 2011 Hx nasal septoplasty, sinus surgery, turb reduction 07/23/2015 [facility] Hx tonsil and adenoidectomy performed twice Ileocecectomy 03/21/2016 [facility] Nasal sinus surgery 06/11/2018 CE maxillary, ethmoid Picc line placement 04/24/2014 05/30/14, 07/21/14 Right maxillary functional endoscopic sinus surgery with maxillary antrostomy, remove tissue 12/23/2018 [facility] Sept[facility], eua ears, ashu cerumen rem, lt tube rem and tm rep, fess, egd w/ biopsy, colonoscopy w/biopsy 11/15/2019 Rojas / Cyndie Single incision laparoscopic surgical ileocectomy 03/21/2016 [facility] Tonsillectomy Current Medications Outpatient Medications Dosage ustekinumab 90 mg/mL subcutaneous syringe (TracourlaSquee) Inject 1 mL under skin every 8 weeks. sodium chloride, sodium bicarb-nasal rinse squeeze bottle with packet ([employer] Sinus) Place 1 Packet in each nostril [...] Comments as of 12/18/2022 Stelara approved through [employer] 12/18/22-12/18/23 PA# [id number] (TDS) Stelara approved through [employer] 12/24/21-12/24/22 PA# [id number] (TDS) Humira approved through [employer] 10/09/2021-10/09/2022 PA# [id number] (SY) Rituxan 1000 mg x 2 doses, 2 weeks apart approved through [employer] 01/11/21- 02/08/21 (SJD), ref# [id number] Humira every 10 days approved through [employer] 10/11/20-10/11/21 [id number] (AUGUST) Rituxan 500 mg/50 ml vial (J9312) PA approved through [employer] for one visit from 01/12/2020 - 02/11/2020 Reference # [id number] () Humira weekly approved through [employer] 12/16/19-12/15/20 [id number] (AUGUST) [employer] / [employer] has approved Rituxan 1000mg every 6 months from 05-26-2018 through 05-25-2019 under PA# [id number] Humira PA approved through [employer] 09/13/18-10/13/19 PA# [id number] (TDS) Humira PA approved through [employer] 06/08/2018-10/06/2018 PA # [id number] (TDS) [employer] / [employer] has approved Rituxan 1000mg every 6 months from 05-26-2018 through 05-25-2019 under PA# [id number]. Medication will need to be dispensed by [facility] in [place], [place]. As of 12/02/17 Solumedrol does not require a PA tor PreD hrough [employer] for J2920,35711 and 81801 (KH) Ritux approved by [employer] X2 doses from 11/27/17-11/26/18, PA# [id number] (js) Ritux approved by [employer] via lvgp-qs-ynpo, PA# [id number], valid 05/26/17 to 05/25/18 (margarita) Ritux jacinta roved by [employer] after aeok-iu-uuat review, Valid 11/24/16-05/25/17, PA# [id number] (margarita) As of 06/24/16, no PA or PreD needed for Solumedrol J2930, 73258, 58531 with [employer] (margarita) Physical Exam Craniofacial: normal The head [...] the patient and prescribed the anesthesia plan. [facility]'s [id number] History and physical note* Danny Lee MD - 03/22/2024 1:27 PM EST I have examined the patient, reviewed the [...] status: Ambulatory Surgery History of Present Illness/Condition Sue Hatfield is a 23 year old female [...] Rojas Biat fess, ethmoidectomy, spenoidotomy 05/18/2020 Rojas Ashu max sinus surg / flex bronch bal 04/21/2019 Rojas / Palacious Bilat nasal cautery, rt fess, bilat turb cautery, bilat fracture nasal turbinate 05/23/2021 Ro[facility] Bilateral diagnostic nasal/sinus endoscopy 08/04/2016 Rojas Bilateral maxillary functional endoscopic sinus surgery 07/14/2017 Rojas Colonoscopy/biopsy 85953 02/22/2016 [facility] Colonoscopy/biopsy 30537 07/06/2018 [facility] Egd w/ bx / colonoscopy w/ bx 12/29/2012 Egd/biopsy 64043 02/22/2016 gipr Egd/biopsy 91400 07/06/2018 [facility] Exicisional biopsy 06/11/2018 CE submental lymph node Functional endoscopic sinus surgerysinusotomy,sphenoid,with or without biopsy; with mucosal stripping or removal of polyp(s) (bilateral) (bilateral, 08/20/2021 Rojas Hx adenoidectomy Hx colonoscopy with biopsy 2011 Hx nasal septoplasty, sinus surgery, turb reduction 07/23/2015 Ro[facility] Hx tonsil and adenoidectomy performed twice Ileocecectomy 03/21/2016 [facility] Nasal sinus surgery 06/11/2018 CE maxillary, ethmoid Picc line placement 04/24/2014 05/30/14, 07/21/14 Right maxillary functional endoscopic sinus surgery with maxillary antrostomy, remove tissue 12/23/2018 [facility] Septoplasty, eua ears, ashu cerumen rem, lt tube rem and tm rep, fess, egd w/ biopsy, colonoscopy w/biopsy 11/15/2019 Rojas / Cyndie Single incision laparoscopic surgical ileocectomy 03/21/2016 [facility] Tonsillectomy Current Medications Outpatient Medications Dosage ustekinumab 90 mg/mL subcutaneous syringe (TracourlaSquee) Inject 1 mL under skin every 8 weeks. sodium chloride, sodium bicarb-nasal rinse squeeze bottle with packet ([employer] Sinus) Place 1 Packet in each nostril [...] Comments as of 12/18/2022 Stelara approved through [employer] 12/18/22-12/18/23 PA# [id number] (TDS) Stelara approved through [employer] 12/24/21-12/24/22 PA# [id number] (TDS) Humira approved through [employer] 10/09/2021-10/09/2022 PA# [id number] (SY) Rituxan 1000 mg x 2 doses, 2 weeks apart approved through [employer] 01/11/21- 02/08/21 (SJD), ref# [id number] Humira every 10 days approved through [employer] 10/11/20-10/11/21 [id number] (AUGUST) Rituxan 500 mg/50 ml vial (J9312) PA approved through [employer] for one visit from 01/12/2020 - 02/11/2020 Reference # [id number] (ad) Humira weekly approved through [employer] 12/16/19-12/15/20 [id number] (AUGUST) [employer] / [employer] has approved Rituxan 1000mg every 6 months from 05-26-2018 through 05-25-2019 under PA# [id number] Humira PA approved through [employer] 09/13/18-10/13/19 PA# [id number] (TDS) Humira PA approved through [employer] 06/08/2018-10/06/2018 PA # [id number] (TDS) [employer] / [employer] has approved Rituxan 1000mg every 6 months from 05-26-2018 through 05-25-2019 under PA# [id number]. Medication will need to be dispensed by [facility] in [place], [place]. As of 12/02/17 Solumedrol does not require a PA tor PreD hrough [employer] for J2920,44426 and 87377 (KH) Ritux approved by [employer] X2 doses from 11/27/17-11/26/18, PA# [id number] (js) Ritux approved by [employer] via qfsw-sc-pufx, PA# [id number], valid 05/26/17 to 05/25/18 (margarita) Ritux jacinta roved by Jimmy after xwsb-jw-xhas review, Valid 11/24/16-05/25/17, PA# [id number] (margarita) As of 06/24/16, no PA or PreD needed for Solumedrol J2930, 98375, 96610 with [facility] (margarita) Physical Exam Craniofacial: normal [...] prescribed the anesthesia plan. documented in this encounterUniversity [facility] [id number] Hospital Discharge instructions* Discharge Instructions* Geovanna Lima APN - 03/22/2024 1:03 PM EST ENT HOME INSTRUCTIONS Post Op Sinus Surgery, Nasal Cautery and Left Myringoplasty: Your surgery was done by Dr. Lee. If you have any questions call our clinic at [phone]. What to Expect: - It is normal [...] from his or her nose. This is normal.If worrisome, please call your doctor. - You [...] child's follow-up appointment Levaquin: As Prescribed Saline [place]: Nasal irrigation 2 times a day until follow-up appointment. If unable to tolerate irrigations you will need to use Nasal Saline spray. Nasal saline spray 3 sprays 3 times a day until follow-up. Nasal ointment/Vaseline Twice per Day for 7 days FOLLOW-UP: Provider Department Center 05/04/2024 11:30 AM Danny Lee MD ENT Clinic [facility] If you need to speak with a nurse please call the ENT Nurse Triage Line ([phone]). For appointments, please call: Central Scheduling of the ENT clinic . [facility] . Please ask for ENT resident product manufacturing professional ifafter hours. documented in this encounterNationCherrington [facility]12-03-2024 Telephone encounter Note* Telephone Encounter - Daniel Jaquez - 03/15/2024 9:54 AM EST Summary: surgery rescheduled Called Patient to reschedule surgery, now scheduled with Dr Lee in [facility] on 03/22/24. Post op rescheduled. Patient aware of NPO. Consent DOS. Patient had no further questions. [facility]12-03-2024 Miscellaneous Notes* Telephone Encounter - Daniel Jaquez - 03/15/2024 9:54 AM ESTSummary: surgery rescheduled Called Patient to reschedule surgery, now scheduled with Dr Lee in [facility] on 03/22/24. Post op rescheduled. Patient aware of NPO. Consent DOS. Patient had no further questions. documented in this [facility]11-21-2024 Telephone encounter Note* Telephone Encounter - Daniel Jaquez - 03/03/2024 9:03 AM EST Summary: surgery scheduled Called Patient to schedule surgery with Dr Lee in [facility] on 05/10/24. Post op scheduled. Patient aware of NPO. Consent DOS. Patient had no further questions. [facility]11-21-2024 Miscellaneous Notes* Telephone Encounter - Daniel Jaquez - 03/03/2024 9:03 AM ESTSummary: surgery scheduled Called Patient to schedule surgery with Dr Lee in [facility] on 05/10/24. Post op scheduled. Patient aware of NPO. Consent DOS. Patient had no further questions. documented in this [facility]11-18-2024 NoteREASON FOR EXAM: nasal congestion ;Chronic sinusitis, unspecified [...] tissues of the face and orbits are normal.[facility] [id number] Hospital Discharge instructions* Patient Instructions* May Brewer - 02/29/2024 9:30 AM EST Your child received a CT without Contrast today. The results will be made available to the orderingprovider. Please follow up with the provider for any questions or concerns. documented [facility]24 NoteREASON FOR EXAM: nasal congestion ;Chronic sinusitis, unspecified [...] by: Yann Phillips MD on 02/29/2024 9:38 [facility]11-05-2024 Telephone encounter Note* Telephone Encounter - Kyrie Bird RN - 02/16/2024 2:40 PM EST Pt called back. Plan reviewed. No further needs at this time. [facility]11-05-2024 Miscellaneous Notes* Telephone Encounter - Kyrie Bird RN - 02/16/2024 2:40 PM EST Pt called back. Plan reviewed. No further needs at this time. * Addendum Note - Naima Coates CPNP-PC - 02/16/2024 2:36 PM ESTAddended by: NAIMA COATES on: 02/16/2024 02:36 PM Modules accepted: Orders * Telephone Encounter - Andressa Mandujano RN - 02/16/2024 8:44 AM EST Received mychart message from patient via her son's mychart due to not being able to access mychart: Kirstin, I am a patient with Dr Lee as well Sue Hatfield 2000, for some reason once I [...] for assistance with mychart. Forwarding message to inspector filter tip for review. documented in this encounterNatMetroHealth [facility]11-05-2024 Note* Addendum Note - Naima Coates CPNP-PC - 02/16/2024 2:36 PM ESTAddended by: NAIMA COATES on: 02/16/2024 02:36 PM Modules accepted: Orders [facility]11-05-2024 Telephone encounter Note* Telephone Encounter - Andressa Mandujano RN - 02/16/2024 8:44 AM EST Received mychart message from patient via her son's mychart due to not being able to access mychart: Kirstin, I am a patient with Dr Lee as well Sue Hatfield 2000, for some reason once I [...] for assistance with mychart. Forwarding message to inspector filter tip for review. [facility] [id number] History of Present illness Narrative* Serene Alfred, DIXIE - 02/10/2024 10:30 AM EDT Images from the original note were not included. Sue Hatfield is a 23 y.o. female presents [...] Continue on current medications. documented in this encounterFulton State HospitalLowvjduisw07-06-1882 History of Present illness Narrative* Serene Alfred NP - 01/27/2024 10:00 AM EDT Images from the original note were not included. Sue Hatfield is a 23 y.o. female presents [...] tenderness or frontal sinus tenderness. Mouth/Throat: Lips: Bedias. Mouth: Mucous membranes are moist. Pharynx: Oropharynx [...] with unspecified complications (CMS/HCC) documented in this encounterFulton State [id number] Nurse Note* Tony Munguia RN - 11/18/2023 11:23 AM EDT Patient to PACU from Endo OR. Resting comfortably and quietly in bed. Vitals continued. IV dry/intact with fluid therapy. Received report from Endo OR STAFF. Patient states readiness for discharge. Per anesthesia and this bedside RN's evaluation, patient isappropriate for discharge. Reviewed AVS, ProVation sheet/images, discharge instructions, follow-up appointment, and when to call the office with patient and patient's support person. All questions answered, peripheral IV access removed per protocol. Patient escorted by [facility] staff member via wheelchair to private vehicle for departure from facility. documented in this encounterOSC[facility] Nurse Surgical operation note* Tony Munguia RN - 11/18/2023 11:23 AM EDT Patient to PACU from Endo OR. Resting comfortably and quietly in bed. Vitals continued. IV dry/intact with fluid therapy. Received report from Endo OR STAFF. Patient states readiness for discharge. Per anesthesia and this bedside RN's evaluation, patient isappropriate for discharge. Reviewed AVS, ProVation sheet/images, discharge instructions, follow-up appointment, and when to call the office with patient and patient's support person. All questions answered, peripheral IV access removed per protocol. Patient escorted by [facility] staff member via wheelchair to private vehicle for departure from facility. [facility]08-07-2024 History and physical note* Sharath Lambert MD - 11/18/2023 10:30 AM EDT ENDOSCOPIC PREPROCEDURE HISTORY AND PHYSICAL HISTORY OF PRESENT ILLNESS: Sue Hatfield is a 23 y.o. female seen [...] nasal flaring, ABDOMEN: Soft, nontender, nondistended ASSESSMENT: Sue Hatfield is a 23 y.o. female is ready for the planned procedure. ASA Class: ASA 2 - Patient with mild systemic disease with no functional limitations PLAN: Will plan to proceed with using Monitored Anesthesia Care. Sharath Lambert MD [facility] Work Phone: [phone]) 207-193808-07-2024 History and physical note* Sharath Lambert MD - 11/18/2023 10:30 AM EDT ENDOSCOPIC PREPROCEDURE HISTORY AND PHYSICAL HISTORY OF PRESENT ILLNESS: Sue Hatfield is a 23 y.o. female seen [...] aerosol for PJP prophylaxis. 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 female is ready for the planned procedure. ASA Class: ASA 2 - Patient with mild systemic disease with no functional limitations PLAN: Will plan to proceed with using Monitored Anesthesia Care. Sharath Lambert MD documented in this encounterParma Community General Hospital04-25-2024 History of Present illness Narrative* Maty Knight - 08/06/2023 12:00 PM EDT Patient verified Name, , medication and Pharmacy for this Nurse. * Christine Mckeon MD - 08/06/2023 12:00 PM EDT Reason for Evaluation: Sue Hatfield is seen in consultation at the request of Dr. 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 Transfersummary not provided. Chart review performed (40 minutes) HPI: Sue Hatfield is a 22 y.o. female who presents for evaluation of problems listed above. She follows with Dr. Otero who last saw her in January. She is currently 36 weeks . Disease course and treatment Crohn's Disease - diagnosed at [facility] 2011. Therapy has included 6MP, infliximab, stopped due to severe scalp psoriasis), vedolizumab, ustekinumab, adalimumab. She underwent ileocecal resection in 03/2016. Most recent colonoscopy was in 2019. 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 See imaging and biopsy results below. Therapy has included methylprednisolone pulses, methotrexate [id number] (with interruptions; stopped due to inefficacy and frequent infections), rituximab x 2 11/2016, 11/2017, 12/2018, 01/2020, 01/2021, 12/2021. Difficult course with multiple admissions for management of this problem. Psoriasis - diagnosed at [facility] - developed psoriasis of scalp while taking infliximab Hidradenitis suppurativa - diagnosed at [facility]; primarily treated with topical therapies. Pulmonary nodules - scattered small nodules; bronchoscopy and BAL did not identify infectious etiology. Other problems: frequent sinusitis (multiple sinus surgeries), rituximab-induced hypogammaglobulinemia Recent history Sue is 36 wks with estimated delivery date of 08/31/2023. Her has not been complicated. There are plans for due to her prior intestinal surgery. She hasbeen maintained on ustekinumab during . She is [...] Most recent IgG level available to me [id number] on 01/28/2022. For the past few days, she's felt that her left leg is a little more swollen than the right. The leg feels tight but is not painful. Current providers: GUARD SUPERVISOR: Alfredo Duong CNM MFM: Dr. Ruchi Carmona Pulmonary: Dr. Xiomara Zurita IBD: Teresa Peterson ENT: Dr. Lee at [facility] Ophtho: need to confirm Does not have [...] reports that she is allergic to cefdinir, sulfamethoxazole- trimethoprim, infliximab, pentamidine, and vancomycin. The family history [...] 1.6 m (5' 3 ) Wt 97.1 kg(214 lb) SpO2 98% BMI 37.91 kg/m Smoking [...] unremarkable exam of both elbows, wrists without effusionsand normal ROM, MCPs, PIPs, DIPs without effusions [...] viral inclusions seen. IMAGING MRI orbits 07/31/2014 ([facility]): TECHNICAL COMMENTS Contrast Type: Optiray 320 Contrast [...] is noted. This is best seen on smearer CT of the brain as the contrast [...] ABDOMEN: Grossly normal. CT chest no contrast [facility] 04/19/2020 REASON FOR EXAM: immune suppression, patient [...] nodules as described above. Bone density 09/16/2018 ([facility]) normal for debo Assessment: Sue Hatfield is a 22 y.o. 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 Please have ultrasound done of left leg within 24 hours [facility] documented in this encounterOSU [facility] History of Present illness Narrative* Teresa Gerber APRN-YARN WORKER - 08/06/2023 10:00 AM EDT Images from the original note were not included. [facility] Chief Complaint Patient presents with Follow-up Crohn's Disease HISTORY OF PRESENT ILLNESS Sue Hatfield is a 22 y.o. female w/ [...] was diagnosed with orbital myositis and developed pulmonarynodules. Was told Crohn's moved to mouth. Went to [facility] and this stopped working. On Rituximab fororbital myositis. Has been on Stelara for at least a year and states things have been going well for past couple of months. Was ordered stool calprotectin to ensure inflammation was stable throughoutpregnancy last 2 visits but not completed. Currently [...] IBD history Diagnosed (age): 10 Disease distribution: [place] Classification: CD: A1 <16, L3 ileocolonic GI surgical history: Ileocectomy 2016 Current therapy: Stelara [id number] Past therapy: Infliximab(stopped due to severe scalp psoriasis), Entyvio(stopped due to facial granulomatosis swelling), Humira? Last colonoscopy: 2019 Last imaging: N/A Complications: Orbital myositis, psoriasis, Complete 14-Point Review of Systems: See History of Present Illness for pertinent positives/negatives; health history questionnaire alsoreviewed. Otherwise, all other systems negative. PAST MEDICAL [...] Resource Strain: Low Risk (02/09/2023) [facility] Overall Financial Resource Strain (CARDIA) Difficulty of Paying Living Expenses: Not hard at all Food Insecurity: No Food Insecurity (04/24/2023) Received from [facility] Hunger Screening Within the past 12 months we worried whether our food would run out before we got money to buy more.: Never True Within the past 12 months the food we bought just didn't last and we didn't have money to get more.: Never True Transportation Needs: No Transportation Needs (02/09/2023) Received from [facility] PRAPARE - Transportation Lack of Transportation (Medical): No Lack of Transportation (Non-Medical): No Physical Activity: Sufficiently Active (02/09/2023) Received from [facility] Exercise Vital Sign Days of Exercise per Week: 6 days Minutes of Exercise per Session: 40 min Stress: No Stress Concern Present (02/09/2023) Received from [facility] [employer] [place] [employer] - Occupational Stress Questionnaire Feeling of Stress : Not at all Social Connections: Moderately Isolated (02/09/2023) Received from [facility] Social Connection and Isolation Panel [NHANES] Frequency of Communication with Friends and Family: More than three times a week Frequency of Social Gatherings with Friends and Family: Twice a week Attends Voodoo Services: Never Active Member of Clubs or Organizations: No Attends Club or Organization Meetings: Never Marital Status: Living with partner Intimate Partner Violence: Not At Risk (02/09/2023) Received from [facility] Humiliation, Afraid, Rape, and Kick questionnaire Fear of Current or Ex-Partner: No Emotionally Abused: No Physically Abused: No Sexually Abused: No Housing Stability: Low Risk (02/09/2023) Received from [facility] Housing Stability Vital Sign Unable to Pay [...] radiology studies were reviewed in Epic IMPRESSION: Sue Hatfield is a 22 y.o. female w/ PMH Ileocolonic Crohn's disease s/p ileocectomy 2016 on Stelara [id number], orbital myositits, psoriasis, chronic sinusitis here to [...] time. We discussed it is safe to continuemedication throughout . Baby cannot have live vaccines [...] Practitioner Division of Gastroenterology, Hepatology, and Nutrition * Padma Brand - 08/06/2023 10:00 AM EDT This MA verified patients name and . documented in this encounterParma Community General Hospital04-25-2024 Instructions* Patient Instructions* DANIKA Cornelius - 08/06/2023 10:00 AM EDT - Continue Stelara every 8 weeks - Baby no live vaccines for 6 months (rotavirus) - Stool calprotectin - Will follow up with Rheumatology for orbital myositis - Will obtain colonoscopy next March - RTC 3 months documented in this encounterOSU [facility] History of Present illness Narrative* Marjorie Bautista RN - 04/24/2023 2:30 PM EST Headache/epigastric pain/blurry vision/swelling? No Cramping/contractions? No Abnormal vaginal discharge? No Spotting/vaginal bleeding? No Loss of fluid like your water may have broken? No Cats in the home? No Do you change the litter box? N/A Flu vaccine? No Genetic testing done this here or other office?Yes Have you been seen here at [facility] in a previous ? No Recent ER visits or hospitalizations? No Bring blood sugar log or meter with you today? (Please bring them with you for every visit at [facility]) N/A Traveled outside the country in the past 6 month No Any concerns that you would like me to mention to the provider today? No * uRchi Carmona MD - 04/24/2023 2:30 PM EST [facility] Consult Note Reason For Consult: HPI: Sue Hatfield is a 22 y.o. @ 19w4d who presented for consultation from Alfredo Fortune, SHANTELL-JOHANA regarding Chief Complaint Patient presents with HX Colitis Crohn's Disease She reports that she is doing well. She reports normal movements and she denies LOF, contractions, vaginal bleeding, headache, blurry vision, RUQ pain and edema. The primary encounter diagnosis was Maternal Crohn's disease affecting in second trimester ([facility]). Diagnoses of History of chronic ulcerative colitis and 19 weeks gestation of were also pertinent to this visit. She has had low risk aneuploidy screen for select aneuploidy of chromosomes 21, 13, 18 and sex chromosomes. Review of systems: Review of systems was noncontributory Complications: Problem List Items Addressed This Visit None Visit Diagnoses Maternal Crohn's disease affecting in second trimester ([facility]) - Primary History of chronic ulcerative colitis 19 weeks gestation of PMH: Past Medical History: Diagnosis Date Anemia Crohn's disease ([facility]) GERD (gastroesophageal reflux disease) Myositis Peptic ulcer [...] total) by mouth every 6 (six) hours asneeded for pain. Yes Not In System Ref [...] Maternal Crohn's disease affecting in second trimester ([facility]) 2. History of chronic ulcerative colitis Sue Hatfield reports that she was diagnosed with Crohn disease and colitis about 10 years ago.She reports that she had multiple medical management options however had been recently in remissionfor more than 6 months. She is followed by Gastroenterology at [facility]. She had last seen them on 02/25/23 and has a follow-up appointment with them next week Sue Hatfield is a 22 y.o. female w/ PMH Ileocolonic Crohn's disease s/p ileocectomy 2016 on Stelara [id number], orbital myositits, psoriasis, chronic sinusitis Per gastroenterology: PLAN/RECOMMENDATIONS: -Chem 6 and LFT's ordered -CRP and stool calprotectin -Quantiferon TB, TPMT and chronic hepatitis panel ordered -Some nutrition labs ordered -UST level ordered -Continue Stelara every 8 weeks. Will plan for Stelara to be given 8 weeks or so prior to delivery and then shortly after. Following with high school biology teacher -Will follow up with Rheumatology for orbital myositis -Will obtain colonoscopy well after delivers. -RTC 2 months She is maintained on Stelara. Reprotox reviewed Quick take: Studies in monkeys did not show adversepregnancy effects of ustekinumab. There are human case [...] Active disease at the time of conception tendsto remain active and inactive disease tends to remain inactive. If a patient has quiescent disease,she can expect to progress through without increased complications. Many medications used to treat Crohns disease, such as sulfasalazine, 5- aminosalicylates, and corticosteroids are typically safe to use [...] Maternal Crohn's disease affecting in second trimester ([facility]) [O99.612, K50.90] Recommendations: Follow-up detailed anatomic evaluation in 4 weeks Serial growth assessments every 4 weeks after the anatomy scan Follow-up with GI at [facility] Recommend obtaining thyroid function tests Delivery recommended at or after 39-40 weeks, earlier as clinically indicated Plan reviewed with patient. She vocalized understanding all questions answered. The patient is to continue with routine care in your office [facility], the CDC, and other organizations representing maternal and public health professionals recommend that , , and lactating people and those considering receive the COVID-19 vaccination. Vaccination is the best method to reduce maternal and complications of SARS-CoV-2 infection. This document was created with [employer] technology. Though I make every effort to review the dictation as it is transcribed, on occasion the spoken word can be misinterpreted by the technology leading to inappropriate words, phrases, or sentences. This note is addressed to the requesting provider as a consultation for clinical guidance. Specificmedical abbreviations are occasionally used and those are generally approved by the [place]?Board of?Obstetrics and?Gynecology?as well as?Earle s abbreviations. The above plan of care was based solely on the diagnoses for which a consultation was requested. ?More frequent testing may be indicated based on her other medical/obstetrical conditions. The management of other or medical conditions is beyond the scope of requested consultation and will c ontinue to be followed by the primary software clerk or primary care provider. Thank you [...] procedures Referring and communicating with other health medical care manager (not separately reported) Documenting clinical information in the electronic or other health record Independently interpreting results (not separately reported) and communicating results to the patient/family/caregiver Care coordination (not separately reported) documented in this encounterKeenan [facility] Hospital12-22-2023 History of Present illness Narrative* Padma Brand - 04/03/2023 11:00 AM EST MA to room to draw Anser UST- red serum tube Pt identified with name and 1 attempt made in right Antecubital fossa- success Excessive Bleeding or Bruising at draw site: no documented in this encounterParma Community [facility] Hospital11-21-2023 Telephone encounter Note* Telephone Encounter - Hortencia Roque - 03/03/2023 9:14 AM EST Noted. Thanks Ella [facility]11-21-2023 Miscellaneous Notes* Telephone Encounter - Hortencia Roque - 03/03/2023 9:14 AM EST Noted. Thanks Ella * Telephone Encounter - Ella Peres RN - 03/03/2023 9:09 AM EST Spoke with Sue. She has established care w/[facility]. She has appoints (at [facility]) in March and April. Andrew placed on chart. documented in this encounterNationCherrington Hospital11-21-2023 Telephone encounter Note* Telephone Encounter - Ella Peres RN - 03/03/2023 9:09 AM EST Spoke with Sue. She has established care w/[facility]. She has appoints (at [facility]) in March and April. Andrew placed on chart. [facility]11-15-2023 History of Present illness Narrative* Kye Solis MD - 02/25/2023 1:00 PM EST [facility] Chief Complaint Patient presents with New Patient : 22 y.o. female sent in consultation by Javier Arriola MD for evaluation of Crohn's disease. HISTORY OF PRESENT ILLNESS Sue Hatfield is a 22 y.o. female w/ [...] was diagnosed with orbital myositis and developed pulmonarynodules. Was told Crohn's moved to mouth. Went to [facility] and this stopped working. On Rituximab fororbital myositis. Has been on Stelara for at [...] surgical history: Ileocectomy 2016 Current therapy: Stelara [id number] Past therapy: Infliximab(stopped due to severe scalp psoriasis), Entyvio(stopped due to facial granulomatosis swelling), Humira? Last colonoscopy: 2019 Last imaging: N/A Complications: Orbital myositis, psoriasis, Questionnaires HBI: 0 Short IBD: 70 PHQ-9: 0 Complete 14-Point Review of Systems: See History of Present Illness for pertinent positives/negatives; health history questionnaire alsoreviewed. Otherwise, all other systems negative. PAST MEDICAL [...] STUDIES: Relevant radiology studies were reviewed in [facility] IMPRESSION: Sue Hatfield is a 22 y.o. female w/ PMH Ileocolonic Crohn's disease s/p ileocectomy 2016 on Stelara [id number], orbital myositits, psoriasis, chronic sinusitis here to [...] then shortly after. Following with high school biology teacher -Will follow up with Rheumatology for orbital [...] MD Division of Gastroenterology, Hepatology, and Nutrition Pager:[phone] * Dari Martinez - 02/25/2023 1:00 PM EST This MA verified patients name and . documented in this encounterParma Community General Hospital11-15-2023 Instructions* Patient Instructions* Kye Solis MD - 02/25/2023 1:00 PM EST Thank you for coming to [facility] Gastroenterology, Hepatology, and Nutrition. It was a [...] 8 weeks or so before your delivery andthen right after you deliver. Follow up in 2 months As a reminder, [facility] should not be used as a form of communication that replaces an office visit. It can be used for reminders and clarifications. Always bring an updated medication list with you to your doctor's visits. Please try to arrive at least 15 minutes before your scheduled visit. If you had labs drawn, I or my team will either call you, send you a [employer] message, or mail you aletter with the results of your tests within 1-2 weeks after you have completed your tests. If you do not hear from our office, please call the clinic to receive your results at [phone]. If you need to fax old records in, please fax to [phone]. If you have any concerning symptoms, please seek immediate medical attention. documented in this encounterU [facility] Hospital Discharge instructions* Discharge Instructions* Danny Aly MD - 01/26/2023 11:16 AM EDT It was a pleasure seeing Sue today. Have a ferritin checked in 3-4 months to ensure no need foriron infusion. We will work on finding an adult Job Superintendent to follow with at [facility]. Hematology Clinic Patient Instructions Please call if you have any questions or concerns about your child's care during thehours of 8-5 Thursday through Thursday. After 5PM on weekdays or on weekends please call the hospital cloth desizing range operator chief and ask for the wheat grower product manufacturing professional. documented in this encounterPike [facility]10-16-[facility]23 History of Present illness Narrative* Gabi Mendez RN - 01/26/2023 10:00 AM EDT Informant: self mother Patient is a 22yo her for f/u recurrent sinusitis. History turbs and sinus surgery 03/20/22. Doing well. * Danny Lee MD - 01/26/2023 10:00 AM EDT [facility] PEDIATRIC OTOLARYNGOLOGY FOLLOW UP VISIT NOTE Chey Aragon MD [address] [place] [address] Sue Hatfield is a 22 year female who was seen in the Pediatric Otolaryngology Clinic for an established patient visit. CHIEF COMPLAINT: Her chief complaint is Sinus Problem (F/u recurrent sinusitis) INFORMANT: The history was obtained from Self HISTORY OF PRESENT ILLNESS: Sue is here today for follow up of [...] Labs: None Outside medical record review: None [facility] chart review: Previous ENT notes reviewed Discussion of patient care/ tests with other professional/s: No Procedures Performed: None RISK ASSESSMENT:` None Bleeding Risk Score Sue - Bleeding Risk Score: 0 (01/26/2023 9:15 AM) I view the management of the problems encountered in this visit as: Minimal risk of morbidity from additional testing or management Pertinent Social Determinants of Health: n/a VISIT DIAGNOSIS/ASSESSMENT: 1. Chronic sinusitis, unspecified location PLAN/MANAGEMENT OPTIONS: F/U PRN documented in this encounterPike [facility] Hospital10-16-2023 Instructions* Patient Instructions* Milind Suazo RN - 01/26/2023 10:00 AM EDT You do not need to schedule an ENT office visit at this time but we are happy to see you in the future for any additional ENT concerns. Please call Central Scheduling at [phone] and follow the prompts to schedule an ENT office visit should you need a future appointment in the ENT clinic. Call us at [phone] to speak to a nurse if you should have any additional ENT- related questions or concerns after today s visit. Department of Otolaryngology (ENT) Patient Instructions ENT Nurse Triage Line: [phone] (Thursday through Thursday 8:00 am - 4:00 pm) Please call the ENT Nurse Triage Line if you need to speak to a nurse for any ENT- related medical concerns prior to yournext appointment. [facility] Hospital Monitor: [phone] (Weekdays after 4:00 pm and on Weekends) If you have urgent ENT concerns for your child after hours that can t wait until our return to the office, please call the hospital cloth desizing range operator chief and ask to speak to the ENT physician product manufacturing professional. [facility] Central [phone] (Thursday through Thursday 7:30 am -5:30 pm) Please call Central Scheduling and follow the prompts to schedule an ENT appointment if you did not schedule an appointment today, or if you need to cancel and reschedule a future appointment. For more information about the Department of Otolaryngology (Ear, Nose and Throat) at [facility], please visit our website at: [email or web address] documented in this encounterNationCherrington Hospital10-16-2023 History of Present illness Narrative* Rachael Toledo RN - 01/26/2023 8:15 AM EDT Self-Management Policy Given 14 and over? Yes, [...] PCP and sports medicine. PT endorses . * Ioana Otero MD - 01/26/2023 8:15 AM EDT Images from the original note were not included. RHEUMATOLOGY FOLLOW-UP VISIT Patient Name: Sue Hatfield Birthdate: 2000 Visit Date: 01/26/2023 Informant: [...] but also right eye involvement (first episode inJune 2016)- s/p weekly Solumedrol and MTX, SC. MTX was discontinued in summer 2017 due to frequentsinus infections), Rituximab x2 doses 2 weeks apart in November 2016, then on 11/27/17 and 12/09/17, then on 01/04/19 and 01/19/19. 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 Low IgG s/p Rituximab.Followed by Opthalmology and Oculoplastics. She has continued on rituximab on a yearly basis. Her last infusion was on 01/28/22. Per review of labs, her B-cells havereturned. She has not had a recurrence of [...] iron due to Crohn's - seen by Hematology:s/p IV iron 7. Scalp psoriasis while on Remicade, currently resolved- had hydradenitis suppurativa (Clindamycintopical lotion to affected areas). Significant flare in 2021 for which she was started on Stelara. Interval History: Sue Hatfield is a 22years female with Crohn's [...] hip. It sometimes goes numb and tingles. Shehas been told she her greater trochanteric bursitis. She had an adjustment with an software trainer. She has been given stretches. She uses KT tape. She has the most difficulty with sleep. Ice helps on occasion. She is 7 weeks . She has an appointment with a high school biology teacher/GYN in the next couple of weeks. She [...] Latest Reference Range & Units Most Recent (1,3)-PEHW-E-QKVFAG pg/mL <31 04/15/19 21:20 (1,3)-YJQS-O-ATTWKP INTERP Negative Negative 04/15/19 21:20 ALBUMIN, CSF [...] AB TITER (IFA) NEG^Negative Negative 08/07/14 05:48 TOMY-GASOLINE DRAGLINE OPERATOR NEG^Negative Negative 08/07/14 05:48 TOMY-SM NEG^Negative Negative [...] and foreign body-type giant cells, consistent with previousruptured cyst - Skin with no significant diagnostic alteration 08/20/21 Tissue from right maxillary sinus, functional endoscopic sinus surgery procedure: - Upper respiratory mucosa-lined fibroconnective tissue with mixed inflammation, edema and reactiveepithelial cell changes. - Please correlate with microbiology [...] Less than 8 weeks gestation of Impression: Sue is a 22 yo with with a complex medical history that includes Crohn's disease (s/p ileocecal resection March 2016), orbital myositis, psoriasis, uveitis, pansinusitis (most recent FESS 03/2022), and pulmonary nodules. She has overall been stable on a combination of Stelara andyearly rituximab. The rituximab was started in 2016 due to orbital myositis and steroid dependence. She has not had aflare of orbital myositis since 2019. Her most recent rituximab dose was 1 year ago. I reviewed heroutside labs and her B-cells have returned. She [...] has not had a flare since 2019. Sue was comfortable with not re-dosing the rituximab at this time. We also discussed that she is at the age that I would typically be discussing transition to adult care. Given that she is , it would also be appropriate to have her see an adult power ballast machine operator in the case of a flare as [...] [facility] with [facility]. Mckeon documented in this encounterSouthwest General Health Center'Clif[facility]-Fine [id number] Instructions* Patient Instructions* Ioana Otero MD - 01/26/2023 8:15 AM EDT Discussion and Guidance: 1. Will refer to Dr. Mckeon at [facility]. 2. Will hold off on rituximab since you are doing well. 3. Could ultrasound your hip if it bothered you more. 4. Stretches can be very helpful. Follow-up: Follow-up at [facility] with Dr. Mckeon How to reach Rheumatology 1. Sign up for [employer] to use a secure e-mail system for non-urgent issues (this is NOT checked on weekends). 2. For medical questions between 8 am - 4 pm, call our nurse line at [phone] option 2. 3. For medical questions at night, over the weekend or a holiday, call the hospital cloth desizing range operator chief at [phone] and ask to talk to the Mri Supervisor. 4. To schedule or change an appointment, call Central Scheduling at [phone], press option 4, then option 7. 5. For other nonmedical questions, call a medical records secretary at [phone], option 4. 6. If you cannot reach a person and need information the same day, call the hospital cloth desizing range operator chief at [phone] and ask to talk to the Mri Supervisor product manufacturing professional. documented in this encounterNatMetroHealth Parma [facility] Center10-11-2023 Telephone encounter Note* Telephone Encounter - Dulce Maria Carrasco - 01/21/2023 1:33 PM EDT Received fax from [facility]. Printed and placed on Dr. Otero's door for review and/or signature. [facility] Miscellaneous Notes* Telephone Encounter - Dulce Maria Carrasco - 01/21/2023 1:33 PM EDT Received fax from [facility]. Printed and placed on Dr. Otero's door for review and/or signature. documented in this encounterPike Community Hospital09-29-2023 Telephone encounter Note* Telephone Encounter - Geovanna Simms RPh - 01/09/2023 3:41 PM EDT Pharmacy Note Reviewed medications for risk: -Rituximab: last dose received 01/2022. Will review registry data with primary rheumatology team. Per ACR guidelines, risk of B cell depletion if dosed in second half of . -Stelara (managed by GI): Dr. Agee recommended continuing with the January dose. Plans to then transition to adult diaphragm builder [facility]09-29[facility] Miscellaneous Notes* Telephone Encounter - Geovanna Simms RPh - 01/09/2023 3:41 PM EDT Pharmacy Note Reviewed medications for risk: -Rituximab: last dose received 01/2022. Will review registry data with primary rheumatology team. Per ACR guidelines, risk of B cell depletion if dosed in second half of . -Stelara (managed by GI): Dr. Agee recommended continuing with the January dose. Plans to then transition to adult diaphragm builder * Telephone Encounter - Alison Moore RN - 01/09/2023 11:14 AM EDT Received incoming call that Sue is . Diagnosis Orbital myositis Primary Mri Supervisor Ioana Otero How did patient find out about Home test Date of last menses 12/08/2022 Last dose of each teratogenic medication (methotrexate, leflunomide, cyclophosphamide, NSAID, ACEi)N/a - no recent NSAID's Do you have appt with GUARD SUPERVISOR? Yes, date of appt 02/04/2023 If underage, is family aware? N/A - mom is aware Best phone number for follow up [phone] Is it okay to leave message on preferred phone? Yes Recommendations for patient: 1. Hold teratogenic medication (methotrexate, leflunomide, cyclophosphamide, NSAID, ACEi) 2. Do not stop hydroxychloroquine or prednisone (if applicable) 3. Start vitamin 4. Follow up with other prescribers/clinics to evaluate non-rheumatology medications Recommendation for nurses: Notify team : Primary power ballast machine operator, Christine Hernandes Recommendations for providers: 1. Order serum test, if needed 2. Further evaluate current medications 3. Refer to [facility] MFM, if needed 4. Follow up with patient within 24 hours Patient is in the process of informing all [facility] specialists. She has talked to GI and received guidance. She is taking a vitamin. Ideally Sue would like to keep her October follow-ups here at [facility] and then transition to adult rheum/GI closer to home. Dr. Otero/Geovanna please advise documented in this encounterNatPomerene Hospital's [id number] Telephone encounter Note* Telephone Encounter - Alison Moroe RN - 01/09/2023 11:14 AM EDT Received incoming call that Sue is . Diagnosis Orbital myositis Primary Mri Supervisor Ioana Otero How did patient find out about Home test Date of last menses 12/08/2022 Last dose of each teratogenic medication (methotrexate, leflunomide, cyclophosphamide, NSAID, ACEi)N/a - no recent NSAID's Do you have appt with GUARD SUPERVISOR? Yes, date of appt 02/04/2023 If underage, is family aware? N/A - mom is aware Best phone number for follow up [phone] Is it okay to leave message on preferred phone? Yes Recommendations for patient: 1. Hold teratogenic medication (methotrexate, leflunomide, cyclophosphamide, NSAID, ACEi) 2. Do not stop hydroxychloroquine or prednisone (if applicable) 3. Start vitamin 4. Follow up with other prescribers/clinics to evaluate non-rheumatology medications Recommendation for nurses: Notify team : Primary power ballast machine operator, Christine Hernandes Recommendations for providers: 1. Order serum test, if needed 2. Further evaluate current medications 3. Refer to [facility] MFM, if needed 4. Follow up with patient within 24 hours Patient is in the process of informing all [facility] specialists. She has talked to GI and received guidance. She is taking a vitamin. Ideally Sue would like to keep her October follow-ups here at [facility] and then transition to adult rheum/GI closer to home. Dr. Otero/Geovanna please advise [facility] Tele[facility] encounter Note* Telephone Encounter - Connie Mac RN - 12/26/2022 3:10 PM EDT TP updated, flagged ready for PA. [facility]09-15-2023 Miscellaneous Notes* Telephone Encounter - Connie Mac RN - 12/26/2022 3:10 PM EDT TP updated, flagged ready for PA. * Telephone Encounter - Ioana Otero MD - 12/26/2022 12:31 PM EDT Rituximab added back into the therapy plan. * Telephone Encounter - Connie Mac RN - 12/19/2022 3:30 PM EDT Informed by Geovanna Centeno with SP that Ritux no longer in TP. Dr. Otero please re-add medication/update TP, and inform nursing when complete. Then will update SP to re-PA. Thank you! * Telephone Encounter - Connie Mac RN - 12/19/2022 3:06 PM EDT Sent referral back to Pharmacy PA for Infusions Team via WQ to be re-authorized. Dr. Otero FYI only (nothing needed from you at this time- will alert you with any issues with the PA) * Telephone Encounter - Connie Mac RN - 12/17/2022 9:16 AM EDT Per encounter dated 02/04/22, referral for PA for Rituximab deferred in WQ until 12/2022. Dr. Otero- referral has shown up in WQ. Rituximab PA 06/2022. Noted per last OV note dated 12/24/2021 that patient required annual Rituximab. Please advise if annual Rituximab plan is to continue, so referral can be sent back to SP to PA if needed. Thank you! documented in this encounterSouthwest General Health Center's [id number] Telephone encounter Note* Telephone Encounter - Ioana Otero MD - 12/26/2022 12:31 PM EDT Rituximab added back into the therapy plan. [facility] Work Phone: [phone] Telephone encounter Note* Telephone Encounter - Javier Agee MD - 12/23/2022 11:14 AM EDT Signed. Thank you. [facility]09-12-2023 Miscellaneous Notes* Telephone Encounter - Javier Agee MD - 12/23/2022 11:14 AM EDT Signed. Thank you. * Telephone Encounter - Gisselle Kimball RN - 12/23/2022 9:02 AM EDT Stelara refill request received from pharmacy. Pended for review. OV scheduled for 02/18/23. Labs recently ordered to be obtained before the visit. documented in this encounterNationCherrington Hospital09-12-2023 Telephone encounter Note* Telephone Encounter - Gisselle Kimball RN - 12/23/2022 9:02 AM EDT Stelara refill request received from pharmacy. Pended for review. OV scheduled for 02/18/23. Labs recently ordered to be obtained before the visit. [facility]09-08-[facility] Telephone encounter Note* Telephone Encounter - Connie Mac RN - 12/19/2022 3:30 PM EDT Informed by Geovanna Centeno with SP that Ritux no longer in TP. Dr. Otero please re-add medication/update TP, and inform nursing when complete. Then will update SP to re-PA. Thank you! [facility]09-08-[facility] Telephone encounter Note* Telephone Encounter - Connie Mac RN - 12/19/2022 3:06 PM EDT Sent referral back to Pharmacy PA for Infusions Team via WQ to be re-authorized. Dr. Shanna ORTIZ only (nothing needed from you at this time- will alert you with any issues with the PA) [facility]09-07-[facility] History of Present illness Narrative* Yoana Head CPhT - 12/18/2022 3:24 PM EDT Prior Authorization for Specialty Medication Clinic: GI Diagnosis: K50.819 - Crohns Medication name: Stelara Medication dose: 90mg Medication frequency: Every 8 weeks Reason for PA: Sue Rogers's Prior Authorization has been APPROVED. Insurance #1: Jimmy MARIBEL PA Type: Pharmacy PA Status: Approved Approved from: 12/18/22 Approved to: 12/18/23 PA #: [id number] Filling Pharmacy: Other ([facility]) * Yoana Head CPhT - 12/18/2022 3:23 PM EDT Prior Authorization for Specialty Medication Clinic: GI Diagnosis: K50.819 - Crohns Medication name: Stelara Medication dose: 90mg Medication frequency: Every 8 weeks Reason for PA: Sue Davalos Prior Authorization has been SUBMITTED. Insurance #1: Jimmy MARIBEL PA Type: Pharmacy PA Status: Submitted Information submitted: Office Note Method of submission : CoverMyMeds documented in this encounterPike Community Hospital09-06-2023 Telephone encounter Note* Telephone Encounter - Connie Mac RN - 12/17/2022 9:16 AM EDT Per encounter dated 02/04/22, referral for PA for Rituximab deferred in WQ until 12/2022. Dr. Otero- referral has shown up in WQ. Rituximab PA 06/2022. Noted per last OV note dated 12/24/2021 that patient required annual Rituximab. Please advise if annual Rituximab plan is to continue, so referral can be sent back to SP to PA if needed. Thank you! [facility]08-11-2023 Telephone encounter Note* Telephone Encounter - Alyssa Pierre RN - 11/21/2022 4:05 PM EDT Pt called to change yearly followup appointment to a different day in order to line up with other appointments due to having a long commute. Pt rescheduled for 01/[address] Aly. [facility]08-11-2023 Miscellaneous Notes* Telephone Encounter - Alyssa Pierre RN - 11/21/2022 4:05 PM EDT Pt called to change yearly followup appointment to a different day in order to line up with other appointments due to having a long commute. Pt rescheduled for 01/[address] Aly. documented in this encounterPike Community Hospital06-14-2023 Telephone encounter Note* Telephone Encounter - Araceli Grigsby - 09/24/2022 9:38 AM EDT Patient called back to schedule 01-05-[address] lee, post op made, pt aware of pat call [facility] Work Phone: [phone] Miscellaneous Notes* Telephone Encounter - Araceli Grigsby - 09/24/2022 9:38 AM EDT Patient called back to schedule 01-05-[address] lee, post op made, pt aware of pat call documented in this encounterPike Community Hospital05-25-2023 History of Present illness Narrative* Gene Deana Centeno - 09/04/2022 11:09 AM EDT Per [facility] R[facility] Letter #9, [facility] requested clinicals be sent. Clinicals sent via fax on 09.03.2022. documented in this encounterPike Community Hospital04-05-2023 History of Present illness Narrative* Hortencia Roque - 07/16/2022 12:10 PM EDT Faxed [facility] reapplication to [phone]. Scanned into the chart. documented in this [facility]01-23-2023 History of Present illness Narrative* Zakia Howard RN - 05/05/2022 11:30 AM EST Chey Aragon MD [address] [place] [address] 21 year old female here today for post op. 03/20/2022 Turbinate and sinus surgery. Saline rinses and flonase prn. No new concerns. * Danny Lee MD - 05/05/2022 11:30 AM EST [facility] PEDIATRIC OTOLARYNGOLOGY FOLLOW UP VISIT NOTE [place] [address] Sue Hatfield is a 21 year female who was seen in the Pediatric Otolaryngology Clinic for an established patient visit. CHIEF COMPLAINT: Her chief complaint is Surgical Followup INFORMANT: The history was obtained from HISTORY OF PRESENT ILLNESS: Sue is here today for follow up of [...] Labs: None Outside medical record review: None [facility] chart review: Previous ENT notes reviewed Discussion of patient care/ tests with other professional/s: No Procedures Performed: None RISK ASSESSMENT:` None Bleeding Risk Score Sue - Bleeding Risk Score: 1 (07/15/2021 11:20 AM) Minimal risk of morbidity from additional testing or management Pertinent Social Determinants of Health: n/a VISIT DIAGNOSIS/ASSESSMENT: 1. Orbital myositis, unspecified laterality 2. Chronic sinusitis, unspecified location PLAN/MANAGEMENT OPTIONS: F/U PRN documented in this encounterNatMetroHealth Parma Medical Center01-23-2023 Instructions* Patient Instructions* Yoana Farrar RN - 05/05/2022 11:30 AM EST Department of Otolaryngology (ENT) Patient Instructions ENT Nurse Triage Line: [phone] (Thursday through Thursday 8:00 am - 4:00 pm) Please call the ENT Nurse Triage Line if you need to speak to a nurse for any ENT- related medical concerns prior to yournext appointment. [facility] Hospital Monitor: [phone] (Weekdays after 4:00 pm and on Weekends) If you have urgent ENT concerns for your child after hours that can t wait until our return to the office, please call the hospital cloth desizing range operator chief and ask to speak to the ENT physician product manufacturing professional. [facility] Central [phone] (Thursday through Thursday 7:30 am -5:30 pm) Please call Central Scheduling and follow the prompts to schedule an ENT appointment if you did not schedule an appointment today, or if you need to cancel and reschedule a future appointment. For more information about the Department of Otolaryngology (Ear, Nose and Throat) at [facility], please visit our website at: [email or web address] You do not need to schedule an ENT office visit at this time but we are happy to see you in the future for any additional ENT concerns. Please call Central Scheduling at [phone] and follow the prompts to schedule an ENT office visit should you need a future appointment in the ENT clinic. Call us at [phone] to speak to a nurse if you should have any additional ENT- related questions or concerns after today s visit. documented in this [facility]12-27-2022 Telephone encounter Note* Telephone Encounter - Brielle Teran RN - 04/08/2022 10:28 AM EST Telephone Follow-Up Excision of Soft Benign Tissue [...] parents / patient has concerns: No concerns [facility]12-27-2022 Miscellaneous Notes* Telephone Encounter - Brielle Teran RN - 04/08/2022 10:28 AM EST Telephone Follow-Up Excision of Soft Benign Tissue [...] has concerns: No concerns documented in this encounterPike Community Hospital12-06-2022 Telephone encounter Note* Telephone Encounter - Zaria Quinones RN - 03/18/2022 8:50 AM EST Status denied. A possible peer to peer review with ENT is possible. Awaiting to hear from them [facility]-Fine [id number] Miscellaneous Notes* Telephone Encounter - Zaria Quinones RN - 03/18/2022 8:50 AM EST Status denied. A possible peer to peer review with ENT is possible. Awaiting to hear from them * Telephone Encounter - Zaria Quinones RN - 03/14/2022 8:18 AM EST Status checked at this time, denied Submitted appeal, ID is [id number] * Telephone Encounter - Sully Hawkins RN - 03/11/2022 12:00 PM EST Received denial on [employer] web portal. Spoke with credit representative on the phone and was told to fax clinicals for reconsideration. Clinicals faxed to [phone]. * Telephone Encounter - Sully Hawkins RN - 02/27/2022 2:14 PM EST Authorization pending via [employer] portal. * Telephone Encounter - Richar Carreno - 02/06/2022 8:45 AM EDT Pediatric Surgery Pre-Schedule/Certification Information Patient Information: Name: Sue Hatfield Date of : 2000 Case and Schedule Information: Surgeon: Dr. Lakisha Narayan Case: ENT Admit Type: OP Location: OR CPT: 34953 Procedure or Exam Description: EXCISION OF SKIN AND SUBCUTANEOUS TISSUE ICD10 Code: L 72.3 Scheduled Date: 03/20/22 documented in this encounterNatMetroHealth Parma [facility] Center12-02-2022 Telephone encounter Note* Telephone Encounter - Zaria Quinones RN - 03/14/2022 8:18 AM EST Status checked at this time, denied Submitted appeal, ID is [id number] [facility]11-29-2022 Telephone encounter Note* Telephone Encounter - Sully Hawkins RN - 03/11/2022 12:00 PM EST Received denial on [email or web address] portal. Spoke with credit representative on the phone and was told to fax clinicals for reconsideration. Clinicals faxed to [phone]. [facility]11-17-2022 Telephone encounter Note* Telephone Encounter - Sully Hawkins RN - 02/27/2022 2:14 PM EST Authorization pending via [email or web address] portal. [facility]10-27-2022 Telephone encounter Note* Telephone Encounter - Richar Carreno - 02/06/2022 8:45 AM EDT Pediatric Surgery Pre-Schedule/Certification Information Patient Information: Name: Sue Hatfield Date of : 2000 Case and Schedule Information: Surgeon: Dr. Lakisha Narayan Case: ENT Admit Type: OP Location: OR CPT: 18480 Procedure or Exam Description: EXCISION OF SKIN AND SUBCUTANEOUS TISSUE ICD10 Code: L 72.3 Scheduled Date: 03/20/22 [facility]04-26-2022 NoteHISTORY: Eye swelling PROCEDURE: [employer] VCT 64. Without IV contrast, images of [...] and signed by Herbie Pace on 08/06/2021 1523[facility] Diagnosis Orbital myositis, unspecified laterality- Primary Chronic sinusitis, unspecified location [facility] Diagnosis Chronic sinusitis, unspecified location- Primary [facility] Diagnosis Iron deficiency Other disorders of iron metabolism [facility]* Diagnosis Orbital myositis, unspecified laterality- Primary Crohn's disease of small and large intestines with complication Immunosuppressed status Unspecified disorder of immune mechanism Chronic pansinusitis Other chronic sinusitis Pulmonary nodules Other nonspecific abnormal finding of lung field Psoriasis Other psoriasis Less than 8 weeks gestation of state, incidental [facility] Diagnosis Crohn's disease of both small and large intestine with complication- Primary Regional enteritis of small intestine with large intestine Orbital myositis, unspecified laterality 11 weeks gestation of state, incidental [facility] Diagnosis Crohn's disease of both small and large intestine with complication- Primary Regional enteritis of small intestine with large intestine [facility] Diagnosis Viral URI- Primary Acute [...] [facility] Diagnosis Orbital myositis, unspecified laterality- Primary Crohn's disease of small and large intestines with complication Immunosuppressed status Unspecified disorder of immune mechanism Chronic pansinusitis Other chronic sinusitis Pulmonary nodules Other nonspecific abnormal finding of lung field Psoriasis Other psoriasis Less than 8 weeks gestation of state, incidental Left leg swelling Psoriasis of scalp Other psoriasis documented in this [facility] noteNo assessment information available [facility] Work Phone: Evaluation note* Diagnosis Crohn's disease of both small and large intestine with complication Regional enteritis of small intestine with large intestine [facility] Diagnosis Encounter for wellness examination in [...] unspecified location- Primary [facility]* Diagnosis Psoriasis- Primary Other psoriasis Intertrigo- Primary Other specified erythematous condition Psoriasis Other psoriasis Psoriasis Other psoriasis Chronic sinusitis, unspecified location Chronic maxillary sinusitis Epistaxis [facility]* Diagnosis Psoriasis- Primary Other psoriasis Intertrigo- Primary Other specified erythematous condition Psoriasis Other psoriasis Psoriasis Other psoriasis Perforation of left tympanic membrane- Primary Perforation of tympanic membrane, unspecified [facility]* Diagnosis Viral URI- Primary Acute upper respiratory infections of unspecified site Fever, unspecified fever cause [facility] this encounter [facility]* Diagnosis Maternal Crohn's disease affecting in second trimester ([facility])- Primary History of chronic ulcerative colitis 19 weeks gestation of [facility] Diagnosis Maternal Crohn's disease affecting in second trimester ([facility])- Primary [facility] Diagnosis Maternal Crohn's disease affecting in second trimester ([facility])- Primary History of chronic ulcerative colitis documented [facility]* Diagnosis Nonintractable episodic headache, unspecified headache type- Primary documented in this encounter [facility]* Diagnosis Nonintractable episodic headache, unspecified headache type- Primary documented in this encounter [facility]* Diagnosis Immunocompromised patient (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 documented in this encounter [facility]* Diagnosis Crohn's disease of both small and large intestine with complication Regional enteritis of small intestine with large intestine [facility] Diagnosis Crohn's disease of both small and large intestine with complication- Primary Regional enteritis of small intestine with large intestine [facility] Diagnosis Acute cough- Primary Acute bilateral otitis media Acute viral bronchitis Wheezing documented in this encounter [facility]* Diagnosis Crohn's disease of both small and large intestine with complication- Primary Regional enteritis of small intestine with large intestine Crohn's disease of both small and large intestine with complication Regional enteritis of small intestine with large intestine documented [facility] Diagnosis Crohn's disease of both small and large intestine with complication (HCC) Regional enteritis of small intestine with large intestine [facility] Diagnosis Crohn's disease of both small and large intestine with complication Regional enteritis of small intestine with large intestine documented in this [facility] Diagnosis Anorectal stricture- Primary Stenosis of rectum and anus Anorectal stricture Stenosis of rectum and anus Crohn's disease of both small and large intestine with complication Regional enteritis of small intestine with large intestine [facility] Diagnosis Anorectal stricture- Primary Stenosis of rectum and anus Anorectal stricture Stenosis of rectum and anus Crohn's disease of both small and large intestine with complication Regional enteritis of small intestine with large intestine documented in [facility] Diagnosis Ostomy nurse consultation- Primary Anorectal stricture Stenosis of rectum and anus Crohn's disease of both small and large intestine with complication Regional enteritis of small intestine with large intestine [facility] Diagnosis Anorectal stricture- Primary Stenosis of rectum and anus Anorectal stricture Stenosis of rectum and anus Crohn's disease of both small and large intestine with complication Regional enteritis of small intestine with large intestine History of ileostomy Ileostomy status documented in this encounter [facility] Diagnosis Encounter for wellness examination in adult- Primary Microcytic anemia Unspecified iron deficiency anemia Family history of malignant neoplasm of breast [facility] Diagnosis Postoperative follow-up- Primary Follow-up examination, following unspecified surgery Crohn's disease of both small and large intestine with complication Regional enteritis of small intestine with large intestine Anorectal stricture Stenosis of rectum and anus Ileostomy in place Ileostomy status documented in this encounter [facility] Diagnosis Ostomy nurse consultation- Primary documented in this encounter [facility] Narrative* Franck Hernandez NP - 05/26/2023 7:30 PM ESTAssociated Order(s): Ear Cerumen Removal Post-Procedure Diagnose(s): Bilateral impacted cerumen Sue Hatfield is a 22 y.o. female presents with chief complaint of Earache HPI: Patient is here for earache. 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 Patient ID: Sue Hatfield is a 22 y.o. female. 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 Sue Hatfield is a 23 y.o. female presents [...] worsen or don't improve. documented in this encounterF[facility] HospitalInstructionsNot on filedocumented in this encounterProDelaware [facility] SystemInstructionsNot on filedocumented in this encounterProAdams County HospitalInstructionsNot on filedocumented in this encounterProAdams County HospitalInstructionsNot on filedocumented in this encounterKeenan Private HospitalReason for referral (narrative)* Consultation (Routine) - New RequestSpecialtyDiagnoses / ProceduresReferred By Contact Referred To ContactRheumatology Diagnoses Orbital myositis, unspecified laterality Crohn's disease of small and large intestines with complication Immunosuppressed status Chronic pansinusitis Pulmonary nodules Psoriasis Less than 8 weeks gestation of Ioana Otero MD [address] [place] [address] Referral IDStatusReasonStart DateExpiration DateVisits RequestedVisits [id number] Request Specialty Services Required [facility] for referral (narrative)* (Routine) SpecialtyDiagnoses / ProceduresReferred By ContactReferred To Contact [address] [address] Referral IDStatusReasonStart DateExpiration DateVisits RequestedVisits Authorized * Unlisted Procedure Code (Routine) - New RequestSpecialtyDiagnoses / Procedures Referred By ContactReferred To Contact Procedures PLATELET MONITORING PER PROTOCOL Clifford Rodas MD [address] [address] Phone: tel: fax: Referral IDStatusReasonStart DateExpiration DateVisits RequestedVisits [id number] Lovhbyf53/ * Unlisted Procedure Code (Routine) - New RequestSpecialtyDiagnoses / Procedures Referred By ContactReferred To Contact Procedures DVT/VTE RISK ASSESSMENT Clifford Rodas MD [address] [address] Phone: tel: fax: Referral IDStatusReasonStart DateExpiration DateVisits RequestedVisits [id number] Qkoltlx50/ * Radiology (Routine) - New RequestSpecialtyDiagnoses / ProceduresReferred By ContactReferred To Contact Procedures US IMAGING REGIONAL ANESTHESIA Clifford Freeman MD [address] [place] [address] Phone: tel: fax: Referral IDStatusReasonStart DateExpiration DateVisits RequestedVisits [id number] Fhrftdg77/ [facility] Narrative* Treatment Plan and Therapy Plan (Routine) - AuthorizedSpecialtyDiagnoses / ProceduresReferred By Contact Referred To Contact Diagnoses Crohn's disease of both small and large intestine with complication (HCC) Procedures TX GAMUNEX-C/GAMMAKED Stacey Orantes MD [address] [facility] [address] [place] [address] [facility] Med Surg [address] [place] [address] Referral IDStatusReasonStart DateExpiration DateVisits RequestedVisits [id number]/29/20225/29/202211 [facility] Phone: reason for visit Narrative* Endoscopy (Emergency) - ClosedSpecialtyDiagnoses / ProceduresReferred By ContactReferred To Contact Diagnoses Crohn's disease of both small and large intestine with complication Procedures DIAGNOSTIC COLONOSCOPY TX COLONOSCOPY FLX DX W/COLLJ SPEC WHEN PFRMD Milind Fitch, SHANTELL-YARN WORKER [address] [place] [address] Phone: tel: fax: Referral IDStatusReasonStart DateExpiration DateVisits RequestedVisits [id number]/21/20256/ [facility] for visit Narrative* Imaging (Routine) - Closed SpecialtyDiagnoses / ProceduresReferred By ContactReferred To ContactRadiology Diagnoses Crohn's disease of both small and large intestine with complication (HCC) Procedures CT ENTEROGRAPHY W WO CONTRAST Clifford Rodas MD [address] [place] [address] Phone: tel: fax: Referral IDStatusReasonStpoultney DateExpiration DateVisits RequestedVisits [id number]/10/20257/ [facility] for visit Narrative* Auth/CertSpecialtyDiagnoses / ProceduresReferred By ContactReferred To Contact Diagnoses Crohn's disease of both small and large intestine with complication Crohn's disease of both small and large intestine with complication [K50.819] Procedures TX ANRCT XM SURG REQ ANES GENERAL SPI/EDRL DX TX SIGMOIDOSCOPY FLX DX W/COLLJ SPEC BR/WA IF PFRMD EXAM UNDER ANESTHESIA ANORECTAL SIGMOIDOSCOPY DIAGNOSTIC Clifford Rodas MD [address] [place] [address] Phone: tel: fax: [facility] [address] [place] [address] Referral IDStatusReasonColumbia DateExpiration DateVisits RequestedVisits [id number] [facility] for visit Narrative* Auth/CertSpecialtyDiagnoses / ProceduresReferred By ContactReferred To Contact Diagnoses Anorectal stricture Crohn's disease of both small and large intestine with complication Anorectal stricture [K62.4] Crohn's disease of both small and large intestine with complication [K50.819] Procedures TX LAPAROSCOPY SURG ILEOSTOMY/JEJUNOSTOMY NON-TUBE ILEOSTOMY JEJUNOSTOMY NON-TUBE LAPAROSCOPIC Clifford Rodas MD [address] [place] [address] Phone: tel: fax: [facility] [address] [place] [address] Referral IDStatReaishaStjasper DateExpiration DateVisits RequestedVisits [id number] [facility] Summary Purpose Family History No Family [...] No Advanced Directives Records FoundDocuments on File TypeDate RecordedPatient RepresentativeExplanationACP-Advance DirectiveACP-Power of AttorneyCode StatusDate ActivatedDate InactivatedCommentsFull Code4 11:40 PM07/28/2014 10:19 PMFull Code07/19/2014 7:32 PM07/25/2014 8:24 PMFull Code 07/02/2014 7:22 PM07/07/2014 12:22 PMFull Code04/20/2014 11:13 AM04/26/2014 3:37 PM Full Code03/24/2014 7:43 PM03/25/2014 12:50 PMTypeDate RecordedPatient RepresentativeExplanationACP-Advance DirectiveACP-Power of AttorneyCode Status Date ActivatedDate InactivatedCommentsFull Code07/26/2014 11:40 PM07/28/2014 10:19 PMFull Code07/19/2014 7:32 PM07/25/2014 8:24 PMFull Code07/02/2014 7:22 PM07/07/2014 12:22 PMFull Code04/20/2014 11:13 AM04/26/2014 3:37 PMFull Code03/24/2014 7:43 PM 03/25/2014 12:50 PM Advance Directive Response Recorded Date/ Time Advance Directives No December 11:22am Date ActivatedDate InactivatedComments07/26/2014 11:40 PM07/28/2014 10:19 PMDate ActivatedDate InactivatedComments07/19/2014 7:32 PM07/25/2014 8:24 PMDate Activated Date InactivatedComments07/02/2014 7:22 PM07/07/2014 12:22 PMDate ActivatedDate InactivatedComments04/20/2014 11:13 AM04/26/2014 3:37 PMDate ActivatedDate IswcyveitgmDfrybfkh56/12/2014 7:43 PM03/25/2014 12:50 PMDate ActivatedDate InactivatedComments11/02/2024 2:39 PMDate ActivatedDate InactivatedComments 11/02/2024 2:39 PM Reason for Referral SpecialtyDiagnoses / ProceduresReferred By ContactReferred To ContactHematology Procedures Hematology Oncology Clinic Appointment Request [facility] [address] [place] [address] Referral IDStatusReasonStart DateExpiration DateVisits RequestedVisits [id number] Not [id number] / ProceduresReferred By ContactReferred To Contact Diagnoses Left leg swelling Procedures VASC DUPLEX VENOUS EXTREMITY LOWER LEFT TX DUPLEX EXTREM VENOUS,UNI OR LTD Christine Mckeon MD [address] [place] [phone] Referral IDStatusReasonStart DateExpiration DateVisits RequestedVisits [id number] Request/[id number] / Procedures Referred By ContactReferred To Contact Diagnoses Crohn's disease of both small and large intestine with complication Procedures DIAGNOSTIC COLONOSCOPY TX COLONOSCOPY FLX DX W/COLLJ SPEC WHEN PFRMD Milind Fitch, SHANTELL-YARN WORKER [address] [place] [phone] Referral IDStatusReasonStart DateExpiration DateVisits RequestedVisits [id number]/11/20248/606545EdjxzeouqVntnlsmrt / Procedures Referred By ContactReferred To ContactRAD CAT Scan Diagnoses Chronic sinusitis, unspecified location Procedures CT Sinuses Stealth without Contrast Naima Coates CPNP-PC [address] [place] [address] Referral IDStatusReasonStart DateExpiration DateVisits RequestedVisits [id number] [id number] IDStatusReasonStart Date Expiration DateVisits RequestedVisits [id number] Not Xojrukmc45/5/820182PhsvaefbcAbbkwenbn / ProceduresReferred By ContactReferred To ContactMaternal and Medicine Diagnoses Maternal Crohn's disease affecting in second trimester ([facility]) Procedures [facility] with or without consult Krista Martinez MD [address] [place] [address] [facility] Maternal Med [address] [place] [address] Referral IDStatusReasonStart DateExpiration DateVisits RequestedVisits [id number] Review/[id number] / ProceduresReferred By ContactReferred To ContactMaternal and Medicine Diagnoses Maternal Crohn's disease affecting in second trimester ([facility]) History of chronic ulcerative colitis Procedures [facility] with or without consult Ruchi Carmona MD [address], [address] [place] [address] [facility] Maternal Med [address] [place] [address] Referral IDStatusReasonStart DateExpiration DateVisits RequestedVisits [id number] Review/ Additional Source Comments INFORMATION SOURCE (unrecogn ized section and content) DATE CREATED AUTHOR 01/17/2020 [facility] DATE CREATED AUTHOR AUTHOR'S ORGANIZ ATION 08/14/2021 [facility] DATE CREATED AUTHOR AUTHOR'S ORGANIZ ATION 02/15/2022 [facility] DATE CREATED AUTHOR AUTHOR'S ORGANIZ ATION 04/05/2022 [facility] DATE CREATED AUTHOR AUTHOR'S ORGANIZ ATION 07/05/2023 [facility] DATE CREATED AUTHOR AUTHOR'S ORGANIZ ATION 09/09/2023 [facility] DATE CREATED AUTHOR AUTHOR'S ORGANIZ ATION 03/01/2024 [facility] DATE CREATED AUTHOR AUTHOR'S ORGANIZ ATION 03/02/2024 [facility] DATE CREATED AUTHOR AUTHOR'S ORGANIZ ATION 05/06/2024 [facility] DATE CREATED AUTHOR AUTHOR'S ORGANIZ ATION 07/16/[address] [facility] DATE CREATED AUTHOR AUTHOR'S ORGANIZ ATION 11/01/2024 [facility] DATE CREATED AUTHOR AUTHOR'S ORGANIZ ATION 02/21/2025 [facility] DATE CREATED AUTHOR AUTHOR'S ORGANIZ ATION 02/24/2025 [facility] EPIC Care Teams (unrecognized sec tion and content) Team MemberRelationshipSpecialtyStart DateEnd [place] [address] PCP - General08/23/12Team MemberRelationshipSpecialtyStart DateEnd Date Edwardodoctors hospitaljayaChey Aragon MD [address] [place] [address] PCP - GeneralFamily Medicine08/06/21Team MemberRelationshipSpecialtyStart DateEnd Date Chey Aragon MD [address] [place] [address] PCP - GeneralFamily Apjwpusz81/19/20Team MemberRelationshipSpecialtyStart Date End Date Chey Aragon MD [address] [place] [address] PCP - GeneralFamily Bowhgzha62/19/20Team MemberRelationshipSpecialtyStart Date End Date Chey Aragon MD [address] [facility] [place] [address] PCP - GeneralFamily Eokkxbtm67/19/20Team MemberRelationshipSpecialtyStart Date End Date Chey Aragon MD [address] [facility] [place] [address] PCP - GeneralFamily Inxvioor33/19/20Team MemberRelationshipSpecialtyStart Date End Date Chey Aragon MD [address] [facility] [place] [address] PCP - GeneralFamily Bpalcnkl71/19/20Team MemberRelationshipSpecialtyStart Date End Date Chey Aragon MD [address] [facility] [place] [address] PCP - GeneralFamily Iqknbgxp50/19/20Team MemberRelationshipSpecialtyStart Date End Date Chey Aragon MD [address] [facility] [place] [address] PCP - GeneralFamily Qhhtgemh64/19/20Team MemberRelationshipSpecialtyStart Date End Date Chey Aragon MD [address] [facility] [place] [address] PCP - GeneralFamily Scfldoie63/19/20Team MemberRelationshipSpecialtyStart Date End Date Chey Aragon MD [address] [facility] [place] [address] PCP - GeneralFamily Pyvxyssz07/19/20Team MemberRelationshipSpecialtyStart Date End Date Chey Aragon MD [address] [facility] [place] [address] PCP - GeneralFamily Zlwluuwc54/19/20Team MemberRelationshipSpecialtyStart Date End Date Chey Aragon MD [address] [facility] [place] [address] PCP - GeneralFamily Fzjyenxo28/19/20Team MemberRelationshipSpecialtyStart Date End Date Chey Aragon MD [address] [facility] [place] [address] PCP - GeneralFamily Kncplese38/19/20Team MemberRelationshipSpecialtyStart Date End Date Chey Aragon MD [address] [facility] [place] [address] PCP - GeneralFamily Aangnyln50/19/20Team MemberRelationshipSpecialtyStart Date End Date Chey Aragon MD [address] [facility] [place] [address] PCP - GeneralFamily Qbgkmfth34/19/20Team MemberRelationshipSpecialtyStart Date End Date Chey Aragon MD [address] [facility] [place] [address] PCP - GeneralFamily Iyhrjwdo57/19/20Team MemberRelationshipSpecialtyStart Date End Date Chey Aragon MD [address] [place] [address] PCP - GeneralFamily Medicine10/27/22 Chey Aragon MD [address] [place] [address] PCP - [place] [employer]04/13/23 Serene Alfred NP [address] [place] [address] Nurse Pract[facility]erCommunity [facility] Medicine10/27/22Team MemberRelationshipSpecialtyStart DateEnd Date Chey Aragon MD [address] [place] [address] [facility] - [facility]10/27/22 Chey Aragon MD [address] [place] [address] PCP - [place] [employer]04/13/23 Serene Alfred [employer]OTH [employer]ING [employer]PER[employer]IEF [address] [place] [address] Nurse Pract[facility]Community [facility] Medicine10/27/22 Team Status: Inactive Member Role Status Dates Alfredo Duong APRN Attending Provider Active Start: September 03, 2023 End: September 03, 2023Team MemberRelationshipSpecialtyStart DateEnd Date Chey Aragon MD [address] [place] [address] PCP - [facility]Community [facility] Medicine10/27/22 Chey Aragon MD [address] [place] [address] PCP - [place] Nwhofprgrh40/1/23 Serene Alfred NP [address] [place] [address] Nurse [facility] Medicine10/27/22Te MemberRelationshipSpecialtyStart DateEnd Chey Aragon MD [address] [place] [address] PCP - [facility] Medicine10/27/22 Chey Aragon MD [address] [place] [address] PCP - [facility]03/13/23 Serene Alfred CLOTH DESIZING RANGE OPERATOR CHIEF [address] [place] [address] [facility]10/27/22Te MemberRelationshipSpecialtyStart DateEnd Chey Aragon MD [address] [place] [address] PCP - [facility] Medicine10/27/22 Chey Aragon MD [address] [place] [address] PCP - [facility]03/13/23 Serene Alfred CLOTH DES[employer]ING [employer] OPERATOR [employer]F [address] [place] [address] Nurse [facility] Medicine10/27/22Te MemberRelationshipSpecialtyStart DateEnd Date Chey Aragon MD [address] [place] [address] PCP - GeneralFamily Medicine10/27/22 Chey Aragon MD [address] [facility] [place] [address] PCP - [place] Wudatndrsl11/1/23 Serene Alfred NP [address] [facility] [place] [address] Nurse PractitionerFamily Medicine10/27/22Team MemberRelationshipSpecialtyStart DateEnd Date Chey Aragon MD [address] [facility] [place] [address] PCP - GeneralFamily Psepaatq20/19/20Team MemberRelationshipSpecialtyStart Date End Date Chey Aragon MD [address] [facility] [place] [address] PCP - GeneralFamily Bxlzdnss81/19/20Team MemberRelationshipSpecialtyStart Date End Date Chey Aragon MD [address] [facility] [place] [address] PCP - GeneralFamily Ggxwykyq73/19/20Team MemberRelationshipSpecialtyStart Date End Date Chey Aragon MD [address] [facility] [place] [address] PCP - GeneralFamily Akfuqinf47/19/20Team MemberRelationshipSpecialtyStart Date End Date Chey Aragon MD [address] [facility] [place] [address] PCP - GeneralFamily Tckxoltn86/19/20Team MemberRelationshipSpecialtyStart Date End Date Chey Aragon MD [address] [place] [address] PCP - GeneralFamily Jponntwv54/19/20Team MemberRelationshipSpecialtyStart Date End Date Chey Aragon MD [address] [facility] [place] [address] PCP - GeneralFamily Medicine10/27/22 Chey Aragon MD [address] [facility] [place] [address] PCP - [place] Ckzaciqrov48/1/23 Serene Alfred NP [address] [facility] [place] [address] Nurse PractitionerFamily Medicine10/27/22Team MemberRelationshipSpecialtyStart DateEnd Date Chey Aragon MD [address] [facility] [place] [address] PCP - GeneralFamily Medicine10/27/22 Chey Aragon MD [address] [facility] [place] [address] PCP - [place] Slyxeqewyo17/1/23 Serene Alfred NP [address] [facility] [place] [address] Nurse PractitionerFamily Medicine10/27/22Team MemberRelationshipSpecialtyStart DateEnd Date Chey Aragon MD [address] [place] [address] PCP - GeneralFamily Medicine04/29/22Team MemberRelationshipSpecialtyStart DateEnd Date Chey Aragon MD [address] [place] [address] PCP - GeneralFamily Medicine04/29/22Team MemberRelationshipSpecialtyStart DateEnd Date Chey Aragon MD [address] [place] [address] PCP - GeneralFamily Medicine04/29/22Team MemberRelationshipSpecialtyStart DateEnd Date Chey Aragon MD [address] [place] [address] PCP - GeneralFamily Medicine04/29/22Team MemberRelationshipSpecialtyStart DateEnd Date Chey Aragon MD [address] [place] [address] PCP - GeneralFamily Medicine04/29/22Team MemberRelationshipSpecialtyStart DateEnd Date Chey Aragon MD [address] [place] [address] PCP - GeneralFamily Medicine10/27/22 Serene Alfred NP [address] [place] [address] Nurse Practitionermily Medicine10/27/22Team MemberRelationshipSpecialtyStart DateEnd Date Chey Aragon MD [address] [place] [address] PCP - [facility] Medicine10/27/22 Serene Alfred NP [address] [place] [address] Nurse Pract[facility]Community [facility] Medicine10/27/22Te MemberRelationshipSpecialtyStart DateEnd Date Chey Aragon MD [address] [place] [address] PCP - [facility]10/27/22 Serene Alfred NP [address] [place] [address] Nurse Pract[facility]erAt[facility]10/27/22Te MemberRelationshipSpecialtyStart DateEnd Date Chey Aragon MD [address] [place] [address] PCP - [facility]At[facility]10/27/22 Serene Alfred NP [address] [place] [address] Nurse PractitionerAt[facility]10/27/22Te MemberRelationshipSpecialtyStart DateEnd Date Chey Aragon MD [address] [place] [address] PCP - [facility]At[facility]10/27/22 Serene Alfred NP [address] [place] [address] Nurse PractitionerFamily Medicine10/27/22Team MemberRelationshipSpecialtyStart DateEnd Date Chey Aragon MD [address] [place] [address] PCP - GeneralFamily Medicine10/27/22 Serene Alfred NP [address] [place] [address] Nurse Practitionermily Medicine10/27/22Team MemberRelationshipSpecialtyStart DateEnd Date Chey Aragon MD [address] [place] [address] PCP - Generalmily Medicine10/27/22 Serene Alfred NP [address] [place] [address] Nurse Pract[facility]erA[facility]ally [facility]10/27/22Team MemberRelationshipSpecialtyStart DateEnd Date Chey Pillai MD [address] [place] [address] PCP - GeneralFamily Medicine10/17/24Team MemberRelationshipSpecialtyStart DateEnd Date Chey Pillai MD [address] [place] [address] PCP - GeneralFamily Medicine08/06/21Team MemberRelationshipSpecialtyStart DateEnd Date Chey Aragon MD [address] [place] [address] PCP - GeneralFamily Medicine10/27/22 Serene Alfred NP [address] [place] [address] Nurse Pract[facility]erA[facility]ally [facility]10/27/22Team MemberRelationshipSpecialtyStart DateEnd Date Chey Pillai MD [address] [place] [address] PCP - Generalmily Medicine10/17/24Team MemberRelationshipSpecialtyStart DateEnd Date Chey Aragon MD [address] [place] [address] PCP - [facility]10/27/22 Serene Alfred CL[employer]ING [employer]PERATOR [employer]IEF [address] [place] [address] Nurse Pract[facility]erA[facility]ally Medicine10/27/22Team MemberRelationshipSpecialtyStart DateEnd Date Chey Pillai MD [address] [place] [address] PCP - GeneralFamily Medicine10/17/24Team MemberRelationshipSpecialtyStart DateEnd Date Chey Pillai MD [address] [place] [address] PCP - Generalmily Medicine10/17/24Team MemberRelationshipSpecialtyStart DateEnd Date Chey Pillai MD [address] [place] [address] PCP - GeneralFamily Medicine10/17/24Team MemberRelationshipSpecialtyStart DateEnd Date Gracia-Chey Aragon MD [address] [place] [address] PCP - [facility] Medicine10/17/24Team MemberRelationshipSpecialtyStart DateEnd Date Chey Aragon MD [address] [place] [address] PCP - GeneralAt[facility]10/27/22 Serene Alfred CLOTH DES[employer]ING [employer] OPERATOR CHIEF [address] [place] [address] Nurse Pract[facility]erCommunity [facility] Medicine10/27/22Team MemberRelationshipSpecialtyStart DateEnd Date Chey Aragon MD [address] [place] [address] PCP - GeneralAt[facility]10/27/22 Serene Alfred NP [address] [place] [address] Nurse PractitionerA[facility]ally Medicine10/27/22Team MemberRelationshipSpecialtyStart DateEnd Date Chey Aragon MD [address] [place] [address] PCP - [facility] Medicine10/27/22 Chey Aragon MD [address] [place] [address] PCP - [place] Gjhnkrpdpn44/04/2310 Serene Alfred CLOTH DESIZING R[employer] OPERATOR CHIEF [address] [facility] [place] [address] PCP - Jimmy Lennon03/13/2412 Serene Alfred, CLOTH DESIZING [employer] OPERATOR CHIEF [address] [facility] [place] [address] Nurse Pract[facility]Community [facility] Medicine10/27/22Te MemberRelationshipSpecialtyStart DateEnd Date Chey Pillai MD [address] [facility] [place] [address] PCP - [facility]10/17/24Te MemberRelationshipSpecialtyStart DateEnd Date Chey Pillai MD [address] [place] [address] PCP - [facility]10/17/24Te MemberRelationshipSpecialtyStart DateEnd Date Chey Aragon MD [address] [facility] [place] [address] PCP - [facility]10/27/22 Serene Joseph NP [address] [facility] [address] Nurse PractitionerAt[facility]10/27/22 Scheduled Active and Recently Administ ered Medications (unrecognized section and content) Medication Order//06/2021 immune globulin (GAMMAGARD) 10% solution 35 g (COMPLETED) 35 g, IntraVENous, ONCE, 1 dose, On Thu08/13/21 at 1000, Reason for Non-Formulary Order: approved form insurance for Gammagard, Pharmacy to insert product specific administration instructions here. * 1132 (New Bag - Provider: Loraine Walter RN) * 1844 (Stopped - Provider: Loraine Walter, RN) Medication Order//06/2021 0.9 % sodium chloride infusion IntraVENous, at [...] or less into rate field of order. * 1130 (New Bag - Provider: Loraine Walter RN) acetaminophen (TYLENOL) tablet 325 mg 325 mg, Oral, EVERY 4 HOURS PRN, Starting on Thu08/13/21 at 0918, Until Discontinued, Pain Mild (1-3), Maximum dose of acetaminophen is 4000 mg from all sources in 24 hours., 30 min prior to infusion * 1054 (Given - Provider: Loraine Walter, DEEPTI) diphenhydrAMINE (BENADRYL) tablet 25 mg 25 mg, Oral, EVERY 4 HOURS PRN, Starting on Thu08/13/21 at 0917, Until Discontinued, Itching, 30 minprior to infusion * 1054 (Given - Provider: Loraine Walter, DEEPTI) ondansetron (ZOFRAN) tablet 4 mg 4 mg, Oral, EVERY 4 HOURS PRN, Starting on Thu08/13/21 at 0919, Until Discontinued, Nausea, Vomiting, 30 min prior to infusion * 1055 (Given - Provider: Loraine Walter, DEEPTI) Medication Order//01/2024 aprepitant 40 mg capsule (Emend) (COMPLETED) 40 mg (0.48 mg/kg), Oral, ONCE, On Thu03/22/24 at 1300, Pre-op * 1306 (Given - Provider: Moira Hinton RN) Medication Order/ lactated ringers injection (LR) 75 mL/hr, Intravenous, CONTINUOUS, Starting on Thu03/22/24 at 1500, Until 06/25/24 at 1559, Contact pharmacy for new bag/syringe when needed., Phase I * 1500 (Due) Medication Order/ 0.9% NaCl flush syringe injection (NS) Intercatheter, Q1H PRN, Flush, To maintain access, Phase I 0.9% NaCl flush syringe injection (NS) Intercatheter, Q1H PRN, Flush, Pre-op acetaminophen 325 mg tablet (Tylenol) 650 mg (10 mg/kg), Oral, Q6H PRN, Pain - Mild, Pain - Moderate, Starting on Thu03/22/24 at 1255, Until 06/25/24 at 1354, Phase II * 1519 (Given - Provider: Moira Hinton RN) fentaNYL citrate (PF) 10 mcg/1 mL injection (Sublimaze) 35 mcg (0.538 mcg/kg), Intravenous, Q5MIN PRN, Other, Pain - Moderate, Pain - Severe, Use first prnacute pain (scale 5-10) - See administration instructions, Starting on Thu03/22/24 at 1457, Until Thu03/22/24 at 2359, Phase I LIDOcaine 1%-EPINEPHrine 1:100,000 injection (Xylocaine With EPINEPHrine) (CANCELED) One Step Once, Starting on Thu03/22/24 at 1419, Until Thu03/22/24 at 1435, Intra-op * 1419 (Given - Provider: Danny Lee MD) ofloxacin 0.3% ophthalmic solution FOR OTIC USE (CANCELED) One Step Once, Starting on Thu03/22/24 at 1429, Until Thu03/22/24 at 1435, Intra-op * 1429 (Given - Provider: Danny Lee MD - Comment: [facility]. Danny Lee1 [id number] 06/2025) oxymetazoline 0.05 % nasal spray (Afrin) (CANCELED) One Step Once, Starting on Thu03/22/24 at 1430, Until Thu03/22/24 at 1435, Intra-op * 1430 (Given - Provider: Danny Lee MD - Comment: 4 ml on 4 cottonoids) Medication Order// Acetaminophen (TYLENOL) tablet 975 mg (COMPLETED) 975 mg, Oral, ONCE, 1 dose, On Thu11/02/24 at 1515, Pre-op/Pre-Proc * 1520 (Given - Provider: Karol Lopez, DEEPTI) Scopolamine (TRANSDERM-SCOP) patch 1 patch 1 patch, Transdermal, ONCE, 1 dose, On Thu11/02/24 at 1515, Each patch delivers 1 mg over 72 hours., Pre-op/Pre-Proc * 1520 (Patch Applied - Provider: Karol Lopez RN) * 1900 (Due: Patch Removed - Provider: System Discharge - Comment: Time automatically adjusted from order being discontinued) Medication Order// Sodium chloride 0.9% IV solution Intravenous, at 50 mL/hr, CONTINUOUS, Starting on Thu11/02/24 at 1445, Until Thu11/02/24 at 2100, Pre-op/Pre-Proc * 1522 ($$New Bag$$ - Provider: Karol Lopez RN) Medication Order// Acetaminophen (TYLENOL) tablet 650 mg 650 mg, [...] at a rate of 5 mg/min., Recovery Medication Order/12/2024 Acetaminophen (TYLENOL) tablet 975 mg (COMPLETED) 975 mg, Oral, ONCE, 1 dose, On Thu01/17/25 at 1030, Maximum dose of acetaminophen is 4000 mg from all sources in 24 hours., Pre-op/Pre-Proc * 1130 (Given - Provider: Julianna Jack RN) Acetaminophen (TYLENOL) tablet 975 mg 975 mg, Oral, EVERY 8 HOURS NON-STANDARD, First dose on Thu01/17/25 at 2000, Until Discontinued, Maximum dose of acetaminophen is 4000 mg from all sources in 24 hours., Post-op/Post-Proc * 1924 (Given - Provider: Kenny Mattson RN) * 0403 (Given - Provider: Kenny Mattson RN) * 1235 (Given - Provider: Mikki Ramsey, Student Nurse) * 1946 (Given - Provider: Yvonne Pino, DEEPTI) * 0415 (Given - Provider: Yvonne Pino, DEEPTI) * 1219 (Given - Provider: Elsie Mendoza RN) Enoxaparin [...] side of thighs., Indications: DVT/PE prophylaxis, Post-op/Post-Proc * 0907 (Given - Provider: Mikki Ramsey, Student Nurse) * 0835 (Given - Provider: Elsie Mendoza, DEEPTI) Gabapentin (NEURONTIN) capsule 100 mg 100 mg, Oral, EVERY 8 HOURS NON-STANDARD, First dose on Thu01/17/25 at 2000, Until Discontinued, Post-op/Post-Proc * 1925 (Given - Provider: Kenny Mattson RN) * 0403 (Given - Provider: Kenny Mattson, DEEPTI) * 1235 (Given - Provider: Mikki Ramsey Student Nurse) * 1946 (Given - Provider: Yvonne Pino RN) * 0415 (Given - Provider: Yvonne Pino RN) * 1219 (Given - Provider: Elsie Mendoza RN) Gabapentin (NEURONTIN) capsule 800 mg (COMPLETED) 800 mg, Oral, ONCE, 1 dose, On Thu01/17/25 at 1030, Pre-op/Pre-Proc * 1130 (Given - Provider: Julianna Jack RN) Heparin injection 5,000 Units (COMPLETED) 5,000 Units, Subcutaneous, ONCE, 1 dose, On Thu01/17/25 at 1030, Pre op Nurse: Hold for patients receiving Intrathecal morphine or epidural. Consult with Anesthesia Team., Pre-op/Pre-Proc * 1153 (Given - Provider: Julianna Jack RN) lidocaine 4 % patch 2 patch 2 patch, Transdermal, Administer over 12 Hours, EVERY 24 HOURS, First dose on Thu01/18/25 at 2100, Until Discontinued, Apply to shoulders bilaterally. * 2124 (Patch Applied - Provider: Yvonne Pino RN - Comment: bilat shoulders) * 0840 (Patch Removed - Provider: Elsie Mendoza, RN) magnesium oxide (MAG-OX) tablet 800 mg (COMPLETED) 800 mg, Oral, ONCE, 1 dose, On Thu01/18/25 at 0600, Occludes small-bore tubes * 0603 (Given - Provider: Kenny Mattson RN) magnesium oxide (MAG-OX) tablet 800 mg (COMPLETED) 800 mg, Oral, ONCE, 1 dose, On Thu01/19/25 at 0645, Occludes small-bore tubes * 0835 (Given - Provider: Elsie Mendoza, DEEPTI) Ondansetron 4mg/2ml (ZOFRAN) injection 4 mg (COMPLETED) 4 mg, Intravenous, EVERY 6 HOURS NON-STANDARD, 4 doses, First dose on Thu01/17/25 at 2100, Last dose on Thu01/18/25 at 1500, Post-op/Post-Proc * 2049 (Given - Provider: Kenny Mattson, RN) * 0231 (Given - Provider: Kenny Mattson, DEEPTI) * 0908 (Given - Provider: Mikki Ramsey, Student Nurse) * 1546 (Given - Provider: Mikki Ramsey, Student Nurse) Potassium chloride (K-DUR) tablet ER 20 mEq (COMPLETED) 20 mEq, Oral, ONCE, 1 dose, On Thu01/19/25 at 0645, Do not crush. * 0835 (Given - Provider: Elsie Mendoza RN) Scopolamine (TRANSDERM-SCOP) patch 1 patch (CANCELED)(Linked Group 1) 1 patch, Transdermal, ONCE, 1 dose, On Thu01/17/25 at 1030, Patient with history of motion sicknessand/or previous postoperative nausea/vomiting. Each patch delivers 1 mg over 72 hours., Pre-op/Pre-Proc * 1130 (Patch Applied - Provider: Julianna Jack RN - Comment: left) * 1806 (Patch Removed - Provider: Michael Brooks RN - Comment: Time automatically adjusted from order being discontinued) Medication Order//12/2024 Lactated ringers IV solution (CANCELED) Intravenous, at 100 mL/hr, CONTINUOUS, Starting on Thu01/17/25 at 1530, Until Thu01/19/25 at 0601, Post-op/Post-Proc * 1603 ([employer] - Provider: Moira Tejeda, DEEPTI) * 1801 ($$New Bag$$ - Provider: Michael Brooks, DEEPTI) * 0231 ($$New Bag$$ - Provider: Kenny Mattson RN) * 1951 ($$New Bag$$ - Provider: Yvonne Pino, DEEPTI) * 0416 (Rate/Dose Verify - Provider: Yvonne Pino, DEEPTI) Medication Order10/07 Aztreonam (AZACTAM) 2 g in sodium chloride 0.9% (MB PLUS) 100 mL (total volume) IVPB (COMPLETED) 2 g, Intravenous, Administer over 30 Minutes, ECONOMIC HISTORIAN TO PROCEDURE, 1 dose, Starting on Thu01/17/25at 1026, Until Thu01/17/25 at 1545, Other, Surgical Prophylaxis, Initiate antibiotic based on infusion time to complete administration 30-60 minutes prior to surgical incision., Pre-op/Pre-Proc * 1405 ($$New Bag$$ - Provider: KI Mcclellan) * 1545 (Stopped - Provider: Moira Tejeda RN - Comment: Not infusing in PACU; end timed for OR) HYDROmorphone (DILAUDID) injection 0.5 mg ()(Linked Group 2) 0.5 mg, Intravenous, EVERY 3 HOURS NEEDED, Starting on Thu01/17/25 at 1758, Until 01/18/25 [id number], Moderate Pain, Severe Pain, Use if PO not tolerable or ineffective, Higher dose may be administered if PO not tolerable or ineffective, if lower dose was previously documented as ineffective and did not result in adverse effects (RR<10, decrease in level of consciousness). Decrease back tolower dose if patient has adverse effects, or no PRN used in previous 12 hours., Post-op/Post-Proc * 0914 (Given - Provider: Mikki Ramsey, Student Nurse) HYDROmorphone (DILAUDID) injection 0.5 mg (CANCELED) 0.5 mg, Intravenous, EVERY 10 MINUTES NEEDED, 8 doses, Starting on Thu01/17/25 at 1545, Until Thu01/17/25 at 1750, Moderate Pain, Severe Pain, Mild Pain, May give a total of 4mg in PACU., Recovery * 1623 (Given - Provider: Moira Tejeda, DEEPTI) Melatonin tablet 6 mg 6 mg, Oral, DAILY AT BEDTIME NEEDED, Starting on Thu01/17/25 at 1758, Until [place] 01/19/25 at 1725,Insomnia, Post-op/Post-Proc metroNIDAZOLE (FLAGYL) 500 mg in NaCl premix IVPB (COMPLETED) 500 mg, Intravenous, at 200 mL/hr, Administer over 30 Minutes, ECONOMIC HISTORIAN TO PROCEDURE, 1 dose, Starting on Thu01/17/25 at 1026, Until Thu01/17/25 at 1545, Other, Surgical Prophylaxis, Initiate antibiotic based on infusion time to complete administration 30-60 minutes prior to surgical incision. , Pre- op/Pre-Proc * 1411 ($$New Bag$$ - Provider: KI Mcclellan) * 1545 (Stopped - Provider: Moira Tejeda RN - Comment: Not infusing in PACU; end timed for OR) Ondansetron 4mg/2ml (ZOFRAN) injection 4 mg 4 mg, Intravenous, EVERY 6 HOURS NEEDED, Starting on Thu01/18/25 at 1522, Until Thu01/19/25 at 1725, Nausea / Vomiting, 2nd Line [...] PRN used in previous 12 hours., Post-op/Post-Proc * 2055 (Given - Provider: Kenny Mattson RN) * 1554 (See Alternative - Provider: Mikki Ramsey, Student Nurse) * 0414 (See Alternative - Provider: Yvonne Pino RN) oxyCODONE (ROXICODONE) tablet 10 mg(Linked Group 4) 10 mg, Oral, EVERY 4 HOURS NEEDED, Starting on Thu01/19/25 at 1922, Until [place] 01/19/25 at 1725, [...] (RR<10, decrease in level of consciousness)., Post-op/Post-Proc * 2055 (See Alternative - Provider: Kenny Mattson, DEEPTI) * 155 (Given - Provider: Mikki Ramsey, Student Nurse) * 0414 (Given - Provider: Yvonne Pino RN) oxyCODONE (ROXICODONE) tablet 5 mg(Linked Group 4) 5 mg, Oral, EVERY 4 HOURS NEEDED, Starting on [place] 01/19/25 at 1922, Until [place] 01/19/25 at 1725, Moderate Pain, Severe Pain, Use as initial dose. Higher dose may be administered if lower dose was previously documented as ineffective and did not result in adverse effects (RR<10, decrease in levelof consciousness)., Post-op/Post-Proc Phenol (CHLORASEPTIC) 1.4 % oral spray 1 spray 1 spray, Mouth/Throat, NEEDED, Starting on 01/17/25 at 1758, Until [place] 01/19/25 at 1725, Sore Throat, Patient may self-administer., Post-op/Post-Proc Prochlorperazine (COMPAZINE) injection 10 mg(Linked Group 5) 10 mg, Intravenous, EVERY 6 HOURS NEEDED, Starting on 01/17/25 at 1758, Until [place] 10 at 1725, Nausea / Vomiting, moderate nausea [...] Vomiting, 1st line (if tolerating PO), Post-op/Post-Proc Order Group 1: Scopolamine (TRANSDERM-SCOP) patch 1 patch (CANCELED)Jump to med 1 patch, Transdermal, ONCE, 1 dose, On Thu01/17/25 at 1030, Patient with history of motion sicknessand/or previous postoperative nausea/vomiting. Each patch delivers 1 mg over 72 hours., Pre-op/Pre-Proc And VERIFY LINKED PATCH PLACEMENT (CANCELED) Other, EVERY 12 HOURS, First dose on Thu01/17/25 at 1030, Until Discontinued, Confirm continued adhesion of scopolamine 1.5 mg/72hr patch at documented site. Group 2: HYDROmorphone (DILAUDID) injection 0.2 mg () 0.2 mg, Intravenous, EVERY 3 HOURS NEEDED, Starting on Thu01/17/25 at 1758, Until Thu01/18/25 [id number], Moderate Pain, Severe Pain, Use if PO [...] Starting on Thu01/17/25 at 1758, Until Thu01/18/25 [id number], Moderate Pain, Severe Pain, Use if PO not tolerable or ineffective, Higher dose may be administered if PO not tolerable or ineffective, if lower dose was previously documented as ineffective and did not result in adverse effects (RR<10, decrease in level of consciousness). Decrease back tolower dose if patient has adverse effects, or [...] result in adverse effects (RR<10, decrease in levelof consciousness)., Post-op/Post-Proc Or oxyCODONE (ROXICODONE) tablet 10 [...] NEEDED, Starting on Thu01/17/25 at 1758, Until Thu01/19/25 at 1725, Nausea / Vomiting, Refractory Nausea Vomiting, 1st line (if tolerating PO), Post-op/Post-Proc Reason for Visit (unrecogniz ed section and content) ReasonCommentsNew PatientSpecialtyDiagnoses / ProceduresReferred By Contact Referred To ContactColon & Rectal Surgery Diagnoses Crohn's disease of both small and large intestine with complication Milind Fitch, [employer] [address] [place] [address] Phone: tel: fax: Referral IDStatusReasonStart DateExpiration DateVisits RequestedVisits [id number] Request Specialty Services Required /[id number] DateCommentsSurgical Tswaryiv91/27/2022eason CommentsSurgical FollowupReasonOnset DateCommentsPre-ahuvkeujnhixy67/27/2022 ReasonOnset DateCommentsSchedule Vrytrfo9009/24/2022ReasonOnset DateCommentsChange Swtnuabddug53/11/2023ReasonOnset DateCommentsRefill Tkuzvdh9612/23/2022Reason Onset DateCommentsCoordination Of Care12/17/2022RituximabReasonCommentsSinus ProblemF/u recurrent sinusitisReasonCommentsLow Blood CountSpecialtyDiagnoses / ProceduresReferred By ContactReferred To ContactHematology Procedures Hematology Oncology Clinic Appointment Request [address] [place] [address] Referral IDStatusReasonStart DateExpiration DateVisits RequestedVisits [id number] Not [id number]-FW ReasonOnset LuzqJcntimmhOmfrxv35/29/2023ReasonOnset DateCommentsResults 01/21/2023ReasonCommentsNew PatientSpecialtyDiagnoses / ProceduresReferred By ContactReferred To ContactGastroenterology Diagnoses Crohn's disease of both small and large intestine with complication Javier Agee MD [address] [place] [address] [facility] [address] [place] [address] Referral IDStatusReasonStart DateExpiration DateVisits RequestedVisits [id number] [id number] DateComments Case Mjionzbgyc55/21/2023[facility] VenipunctureReasonCommentsEaracheReasonCommentsFollow-upCrohn's DiseaseSpecialty Diagnoses / ProceduresReferred By ContactReferred To ContactRheumatology Diagnoses Orbital myositis, unspecified laterality Crohn's disease of small and large intestines with complication Immunosuppressed status Chronic pansinusitis Pulmonary nodules Psoriasis Less than 8 weeks gestation of Ioana Otero MD [address] [place] [address] Christine Mckeon MD [address] [place] [address] Referral IDStatusReasonStart DateExpiration DateVisits RequestedVisits [id number] / ProceduresReferred By ContactReferred To Contact Diagnoses Crohn's disease of both small and large intestine with complication Procedures DIAGNOSTIC COLONOSCOPY TX COLONOSCOPY FLX DX W/COLLJ SPEC WHEN PFRMD Milind Fitch, [employer] WRITER[employer] WORK[employer] [address] [place] [address] Referral IDStatusReasonStart DateExpiration DateVisits RequestedVisits [id number] ExamReason CommentsAnxietyPatient has been taking the Sertraline and stated that it seems to be helping. She stated that she is doing good with it.ReasonOnset Date CommentsCase Opjtkyvqli69/05/2024ReasonOnset DateCommentsSchedule Procedure 03/03/2024SpecialtyDiagnoses / ProceduresReferred By ContactReferred To Contact RAD CAT Scan Diagnoses Chronic sinusitis, unspecified location Procedures CT Sinuses Stealth without Contrast Naima Coates CPNP-TONO [address] [place] [address] Referral IDStatusReasonStart DateExpiration DateVisits RequestedVisits [id number] Not [id number] DateComments Change Vdyrrtwvtjh09/03/2024SpecialtyDiagnoses / ProceduresReferred By Contact Referred To Contact Diagnoses Chronic maxillary sinusitis Epistaxis Procedures TX NASAL ENDOSCOPY DIAGNOSTIC UNI/BI SPX TX CONTROL NASAL HEMORRHAGE ANTERIOR SIMPLE TX NSL/SINUS NDSC MAX ANTROST W/RMVL TISS MAX SINUS TX OTOLARYNGOLOGIC EXAM UNDER GENERAL ANESTHESIA TX MYRINGOPLASTY ENDOSCOPY, BILATERAL NOSE, DIAGNOSTIC SIMPLE CONTROL OF EPISTAXIS MAXILLARY BILATERAL ANTROSTOMY, WITH TISSUE REMOVAL bilateral ear EXAM UNDER ANESTHESIA POSSIBLE LEFT MYRINGOPLASTY, USING PAPER PATCH IF INDICATED Referral IDStatusReasonStart DateExpiration DateVisits RequestedVisits [id number] ColitisCrohn's Disease ReasonCommentsMigrainePast 2-4 weeks pt has been having migraines.ReasonComments MigraineReasonCommentsFollow-upReasonCommentsPatient EducationCERASReason CommentsEducationReasonCommentsFollow-upPost loop ileosomyReasonCommentsSkin Problem Goals (unrecognized section and content) Goals may [...] BE BASED ON THE PRIMARY CLINICAL RECORDS. [employer] [facility]. provides no warranty or guarantee of the accuracy or completeness of information in this document.
--- NOTE | 2025-02-28 15:09 | XR_ITS ---
The [address] [address] Patient Name: KINGS MARROQUIN MRN: [id number] date: 2000 Sex: F Assigned Patient Location: ER Current Patient Location: ER Accession/Order Number: [id number] Exam Date: 02/28/2025 16:00 Report Date: 02/28/2025 16:20 At the request of: AMPARO STODDARD MD Procedure: XR acute abdomen series Acute abdominal series compared to 6 single view chest 07/07/2020 HISTORY: Abdominal pain. Ileostomy 8 weeks ago. No acute chest findings. The bowel is gasless. No abdominal calcification. Mild scoliosis. The right lower quadrant bowel anastomosis suture. XR/XR acute abdomen series IMPRESSION: No acute chest findings. Gasless small bowel. Impression dictated by: Sharath Mills M.D. 02/28/2025 4:20 PM Dictation Location: [place] [address] Electronically authenticated by: [id number] Y Date: 02/28/2025 16:20
--- NOTE | 2025-02-28 15:10 | ED.GENADUL1 ---
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 8 weeks ago she had ileostomy placed because of Crohn's disease. Within the last day her stool became liquid. She finished a Z-Emeka yesterday for an upper respiratory infection. No fever or blood in her stool. Related Data Home Medications ?Medication ?Instructions ?Recorded ?Confirmed ustekinumab 90 mg/mL subcutaneous 90 mg subcut .q8week 01/16/23 09/23/24 syringe (Stelara) risankizumab-rzaa 60 mg/mL 600 mg IV .every 4 weeks 09/23/24 09/23/24 intravenous solution (Skyrizi) Previous Rx's ?Medication ?Instructions ?Recorded prochlorperazine maleate 10 mg 10 mg PO Q12H PRN nausea and 06/09/23 tablet (Compazine) vomiting, headache 7 days #7 tabs Allergies Allergy/AdvReac Type Severity Reaction Status Date / Time cefdinir (From Omnicef) Allergy Severe Verified 01/16/23 16:19 infliximab (From Remicade) Allergy Severe Rash Verified 01/16/23 16:19 sulfamethoxazole (From Allergy Severe Verified 01/16/23 16:19 Bactrim) trimethoprim (From Bactrim) Allergy Severe Verified 01/16/23 16:19 vancomycin Allergy Severe Verified 01/16/23 16:19 Opioid HPI Opioid Management Most Recent Opioid Data: Last Pain Scale 2 09/04/23, 23:54 Ur Phencyclidine Scrn, (NEGATIVE) Negative 09/03/23, 05:40 Review of Systems ROS Narrative A ten point review of systems is negative except as noted above. PFSH PFS Medical History (Updated 02/28/25 @ 16:34 by Jamel Crystal MD) Ileostomy in place ?Z93.2 - Ileostomy status (ICD-10) delivery delivered ?O82 - Encounter for delivery without indication (ICD-10) Myositis ?M60.9 - Myositis, unspecified (ICD-10) GERD (gastroesophageal reflux disease) ?K21.9 - Gastro-esophageal reflux disease without esophagitis (ICD-10) Crohn's colitis ?K50.10 - Crohn's disease of large intestine without complications (ICD-10) Hx of Surgical History (Updated 09/03/23 @ 06:18 by dAi Mayo) History of tonsillectomy and adenoidectomy ?Z90.89 - Acquired absence of other organs (ICD-10) History of appendectomy ?Z90.49 - Acquired absence of other specified parts of digestive tract (ICD-10) History of bowel resection ?Z90.49 - Acquired absence of other specified parts of digestive tract (ICD-10) Social History (Updated 09/03/23 @ 06:18 by Adi Mayo) Smoking status: Never smoker Non-prescribed substance use: denies use Highest level of school completed/degree received: Associate degree: occupational, technical, vocational program Little interest or pleasure in doing things: not at all Feeling down, depressed, or hopeless: not at all Exam Narrative Exam Narrative: Nurses note and vital signs reviewed General:The patient appears well and in no apparent distress.Patient is resting comfortably on cart. Skin:Warm, dry, no pallor noted.There is no rash noted. Head:Normocephalic, atraumatic Eye: Normal conjunctiva, no drainage Ears, Nose, Mouth, and Throat: oral mucosa is moist. Nares patent. Cardiovascular:Regular Rate and Rhythm Respiratory:Patient is in no distress, no accessory muscle use, lungs are clear to auscultation, no wheezing, rales or rhonchi Back:non-tender GI: Ileostomy in place and draining liquid stool. Abdomen has minimal left-sided tenderness. Musculoskeletal: The patient has no evidence of calf tenderness, no pitting edema, symmetrical pulses noted bilaterally Neurological:A&O, normal speech Psychiatric:Cooperative Constitutional Vital Signs, click to edit/add: Last Vital Signs Temp 98.3 F 02/28/25 14:53 Pulse 77 02/28/25 14:53 Resp 18 02/28/25 14:53 BP 98/79 02/28/25 14:53 Pulse Ox 98 02/28/25 14:53 O2 Del Method Room Air 02/28/25 14:53 Course Vital Signs Vital signs: Vital Signs Temperature 98.3 F 02/28/25 14:53 Pulse Rate 77 02/28/25 14:53 Respiratory Rate 18 02/28/25 14:53 Blood Pressure 98/79 02/28/25 14:53 Pulse Oximetry 98 02/28/25 14:53 Oxygen Delivery Method Room Air 02/28/25 14:53 Temperature 98.3 F 02/28/25 14:53 Pulse Rate 77 02/28/25 14:53 Respiratory Rate 18 02/28/25 14:53 Blood Pressure 98/79 02/28/25 14:53 Pulse Oximetry 98 02/28/25 14:53 Oxygen Delivery Method Room Air 02/28/25 14:53 Medical Decision Making MDM Narrative Medical decision making narrative: Her workup is negative, C. difficile is negative. Blood work nonspecific. No evidence of bowel obstruction. She be discharged home and was recommended hydration. Treatment diagnosis and follow-up were discussed with the patient and her mother. Differential Diagnosis Differential Diagnosis: C. difficile, bowel obstruction, viral gastroenteritis Lab Data Lab results reviewed: Yes I reviewed the patient's lab results Labs: Lab Results 02/28/25 02/28/25 Range/Units 15:16 15:19 WBC 10.5 (4.0-11.0) 10^3/uL RBC 4.93 (4.20-5.40) 10^6/uL Hgb 14.4 (12.0-16.0) g/dL Hct 42.9 (36.0-48.0) % MCV 87.0 (81.0-99.0) fL MCH 29.2 (26.7-34.0) pg MCHC 33.6 (29.9-35.2) g/dL RDW 13.3 (11.0-15.0) % Plt Count 237 (150-450) 10^3/uL MPV 10.2 (9.5-13.5) fL Neut % (Auto) 84.6 H (43.0-75.0) % Lymph % (Auto) 7.0 L (20.5-60.0) % [place] % (Auto) 6.7 (1.7-12.0) % Eos % (Auto) 1.0 (0.9-7.0) % Baso % (Auto) 0.4 (0.2-2.0) % Neut # (Auto) 8.9 H (1.4-6.5) 10^3/uL Lymph # (Auto) 0.7 L (1.2-3.8) 10^3/uL [place] # (Auto) 0.7 (0.3-0.8) 10^3/uL Eos # (Auto) 0.1 (0.0-0.7) 10^3/uL Baso # (Auto) 0.0 (0.0-0.1) 10^3/uL Abs Immat Gran (auto) 0.03 (0.00-0.03) 10^3/uL Imm/Tot Granulo (auto) 0.3 (0.0-0.5) % Sodium 136 (136-145) mmol/L Potassium 3.8 (3.5-5.1) mmol/L Chloride 104 (98-107) mmol/L Carbon Dioxide 24.4 (21.0-32.0) mmol/L Anion Gap 11.4 BUN 12.0 (7.0-18.0) mg/dL Creatinine 0.71 (0.55-1.02) mg/dL Est GFR ( Amer) >60 (>=60 mL/min/1.73m^2) Est GFR (Non-Af Amer) >60 (>=60 mL/min/1.73m^2) BUN/Creatinine Ratio 16.9 Glucose 100 (74-106) mg/dL Calcium 9.3 (8.5-10.1) mg/dL Serum HCG, Qual Negative (NEGATIVE) C. difficile Toxin PCR Negative Imaging Data Abdominal x-ray: Radiologist's impression: ITS Impressions Chest/Abdomen X-ray 02/28/25 15:09 IMPRESSION: No acute chest findings. Gasless small bowel. Impression dictated by: Sharath Mills M.D. 02/28/2025 4:20 PM Dictation Location: [facility] Electronically authenticated by: [id number] Y Date: 02/28/2025 16:20 Discharge Plan Discharge Chief Complaint: Abdominal Pain Clinical Impression: Diarrhea Patient Disposition: Home, Self-Care Time of Disposition Decision: 16:34 Condition: Good Mode of Transportation: Private Vehicle Prescriptions / Home Meds: No Action ustekinumab [Stelara] 90 mg/mL syringe 90 mg SUBCUT .q8week prochlorperazine maleate [Compazine] 10 mg tablet 10 mg PO Q12H PRN (Reason: nausea and vomiting, headache) 7 Days Qty: 7 0RF Skyrizi 60 mg/mL solution 600 mg IV .every 4 weeks Print Language: Latvian Instructions: Acute Diarrhea (ED) Referrals: YUNG ARAGON [Primary Care Provider, Family Practice] - 1 week
[2025-02-28 15:30] LABS: Hematocrit 42.9 % (36.0-48.0); Hemoglobin 14.4 g/dL (12.0-16.0); Immature Granulocytes Abs Auto 0.03 10^3/uL (0.00-0.03); Immature Granulocytes Pct Auto 0.3 % (0.0-0.5); Lymphocytes Absolute Auto 0.7 10^3/uL (1.2-3.8); Mean Corpuscular HGB Conc 33.6 g/dL (29.9-35.2); Mean Corpuscular Hemoglobin 29.2 pg (26.7-34.0); Mean Corpuscular Volume 87.0 fL (81.0-99.0); Platelet Count 237 10^3/uL (150-450); Red Blood Count 4.93 10^6/uL (4.20-5.40); White Blood Count 10.5 10^3/uL (4.0-11.0)
[2025-02-28] MEDS: 0.9 % SODIUM CHLORIDE 1,000 ML 1000 ML IV (15:34)
[2025-02-28 15:39] LABS: Anion Gap 11.4; Blood Urea Nitrogen 12.0 mg/dL (7.0-18.0); Calcium 9.3 mg/dL (8.5-10.1); Carbon Dioxide 24.4 mmol/L (21.0-32.0); Chloride 104 mmol/L (98-107); Estimated GFR (African America >60 (>=60 mL/min/1.73m^2); Estimated GFR (Non-African Ame >60 (>=60 mL/min/1.73m^2); Glucose 100 mg/dL (74-106); Potassium 3.8 mmol/L (3.5-5.1); Sodium 136 mmol/L (136-145)
[2025-02-28 16:26] LABS: C. Difficile PCR NEGATIVE
[2025-02-28 16:43] VITALS: BP 108/69; PULSE 86; TEMP 36.9; O2SAT 100
== END 2025-02-28 16:47 | disposition home or self-care (01) ==
PROVIDERS: Emergency Provider Emergency Medicine; PCP Family Medicine
DX: R19.7 Diarrhea, unspecified (principal); K50.90 Crohn's disease, unspecified, without complications; Z93.2 Ileostomy status
CPT/HCPCS: 36415; 74022; 80048; 84703; 85025; 87045; 87046; 87427; 87493; 96360; 99284; 99285